=== PATIENT | female | born 1965 | race African-American/Black ===

== ENCOUNTER → 2016-05-19 | Outpatient (CLI) | payer MEDICARE, OTHER ==
[~2016-05-19] MED LIST: ABIL30TA2 PO; ALBU0.63 NEB; BENZ2TAB PO; CHOL1CAP34 PO; CITRTAB7 PO; CYMB30CA PO; DILT60TA33 PO; FLUP10TA PO; HYDR-3533 PO; HYDR-3535 PO; MEVA40TA PO; MOBI15TA PO; OMEP20TA PO; PREV15CA15 PO; PROM25TA5 PO; TRAM50TA PO; VITA1000 PO; ZANA2CAP PO
[2016-05-19 12:55] LABS: HEMATOCRIT 31.2 % (35.0-46.0); MEAN CELL VOLUME 84.9 FL (80.0-100.0); MEAN CORPUSCULAR HEMOGLOBIN 29.4 PG (27.0-34.0); MEAN CORPUSCULAR HGB CONC 34.6 % (32.0-36.0); PLATELET COUNT 322 TH/MM3 (150-450); RED BLOOD COUNT 3.67 MIL/MM3 (4.00-5.30); RED CELL DISTRIBUTION WIDTH 15.2 % (11.6-17.2); REVIEW FLAG FINAL; WHITE BLOOD COUNT 8.3 TH/MM3 (4.0-11.0)
[2016-05-19 13:11] LABS: ALT (GPT) 44 U/L (10-53); ANION GAP 7 MEQ/L (5-15); AST (GOT) 21 U/L (15-37); BICARBONATE 27.9 MEQ/L (21.0-32.0); BLOOD UREA NITROGEN 17 MG/DL (7-18); CHLORIDE 105 MEQ/L (98-107); GLOMERULAR FILTRATION RATE 58 ML/MIN (>89); GLUCOSE,FASTING 87 MG/DL (74-99); POTASSIUM 4.2 MEQ/L (3.5-5.1); SODIUM (NA) 140 MEQ/L (136-145)
[2016-05-19 13:15] LABS: ALKALINE PHOSPHATASE 167 U/L (45-117); TOTAL BILIRUBIN ADULT 0.6 MG/DL (0.2-1.0)
[2016-05-19 13:19] LABS: WESTERGREN SEDIMENTATION RATE 63 mm/hr (0-30)
== END ==
LOC: ELAB 10:05
PROVIDERS: ATTEND Internal Medicine Rheumatology
DX: M06.89 Other specified rheumatoid arthritis, multiple sites (principal); Z79.899 Other long term (current) drug therapy
CPT/HCPCS: 36415; 80053; 85027; 85652; 86140

== ENCOUNTER → 2016-07-13 | Outpatient (CLI) | payer MEDICARE, OTHER ==
[~2016-07-13] MED LIST changes: -MOBI15TA PO; -TRAM50TA PO
== END ==
LOC: ELAB 10:04
PROVIDERS: ATTEND Family Medicine
DX: E55.9 Vitamin D deficiency, unspecified (principal); E03.9 Hypothyroidism, unspecified
CPT/HCPCS: 36415; 82306; 84443

== ENCOUNTER → 2016-08-31 | Outpatient (CLI) | payer MEDICARE, OTHER ==
[~2016-08-31] MED LIST changes: -VITA1000 PO
[2016-08-31 11:59] LABS: HEMATOCRIT 35.2 % (35.0-46.0); MEAN CELL VOLUME 83.3 FL (80.0-100.0); MEAN CORPUSCULAR HEMOGLOBIN 28.6 PG (27.0-34.0); MEAN CORPUSCULAR HGB CONC 34.3 % (32.0-36.0); PLATELET COUNT 290 TH/MM3 (150-450); RED BLOOD COUNT 4.23 MIL/MM3 (4.00-5.30); RED CELL DISTRIBUTION WIDTH 15.7 % (11.6-17.2); REVIEW FLAG FINAL; WHITE BLOOD COUNT 5.9 TH/MM3 (4.0-11.0)
[2016-08-31 12:25] LABS: ANION GAP 10 MEQ/L (5-15); BICARBONATE 27.6 MEQ/L (21.0-32.0); BLOOD UREA NITROGEN 15 MG/DL (7-18); CHLORIDE 102 MEQ/L (98-107); GLUCOSE,FASTING 88 MG/DL (74-99); POTASSIUM 4.2 MEQ/L (3.5-5.1); SODIUM (NA) 140 MEQ/L (136-145)
[2016-08-31 12:28] LABS: ALT (GPT) 32 U/L (10-53)
[2016-08-31 12:30] LABS: ALKALINE PHOSPHATASE 148 U/L (45-117); TOTAL BILIRUBIN ADULT 0.6 MG/DL (0.2-1.0)
[2016-08-31 12:39] LABS: AST (GOT) 18 U/L (15-37); GLOMERULAR FILTRATION RATE 56 ML/MIN (>89)
[2016-08-31 12:46] LABS: WESTERGREN SEDIMENTATION RATE 40 mm/hr (0-30)
== END ==
LOC: ELAB 11:01
PROVIDERS: ATTEND Internal Medicine Rheumatology
DX: M06.89 Other specified rheumatoid arthritis, multiple sites (principal); Z79.899 Other long term (current) drug therapy
CPT/HCPCS: 36415; 80053; 85027; 85652; 86140

== ENCOUNTER → 2016-10-23 | Outpatient (CLI) | payer MEDICARE, OTHER ==
[~2016-10-23] MED LIST changes: -ALBU0.63 NEB; -HYDR-3533 PO; -PREV15CA15 PO
== END ==
LOC: ELAB 09:13
PROVIDERS: ATTEND Family Medicine
DX: E55.9 Vitamin D deficiency, unspecified (principal)
CPT/HCPCS: 36415; 82306

== ENCOUNTER → 2016-12-06 | Outpatient (CLI) | payer MEDICARE, OTHER ==
[~2016-12-06] MED LIST changes: +ALBUAER3 INH; +BENZ0.5T PO; +BUSP30TA PO; +DICL1CAP4 PO; +FLUP5TAB PO; +FOLI400T PO; +HYDR-3366 PO; +LOVA40TA PO; +METH2.5T PO; -MEVA40TA PO; +SULF500T34 PO; +TRAZ100T6 PO
[2016-12-06 08:57] LABS: HEMATOCRIT 33.2 % (35.0-46.0); MEAN CELL VOLUME 85.8 FL (80.0-100.0); MEAN CORPUSCULAR HEMOGLOBIN 28.9 PG (27.0-34.0); MEAN CORPUSCULAR HGB CONC 33.7 % (32.0-36.0); PLATELET COUNT 286 TH/MM3 (150-450); RED BLOOD COUNT 3.87 MIL/MM3 (4.00-5.30); RED CELL DISTRIBUTION WIDTH 16.8 % (11.6-17.2); REVIEW FLAG FINAL; WHITE BLOOD COUNT 6.8 TH/MM3 (4.0-11.0)
[2016-12-06 09:22] LABS: ALT (GPT) 48 U/L (10-53); ANION GAP 6 MEQ/L (5-15); AST (GOT) 24 U/L (15-37); BICARBONATE 28.5 MEQ/L (21.0-32.0); BLOOD UREA NITROGEN 18 MG/DL (7-18); CHLORIDE 102 MEQ/L (98-107); GLOMERULAR FILTRATION RATE 57 ML/MIN (>89); GLUCOSE,FASTING 85 MG/DL (74-99); POTASSIUM 4.1 MEQ/L (3.5-5.1); SODIUM (NA) 136 MEQ/L (136-145)
[2016-12-06 09:25] LABS: ALKALINE PHOSPHATASE 177 U/L (45-117); TOTAL BILIRUBIN ADULT 0.6 MG/DL (0.2-1.0)
[2016-12-06 09:30] LABS: WESTERGREN SEDIMENTATION RATE 47 mm/hr (0-30)
== END ==
LOC: ELAB 07:36
PROVIDERS: ATTEND Internal Medicine Rheumatology
DX: M06.89 Other specified rheumatoid arthritis, multiple sites (principal); Z79.899 Other long term (current) drug therapy
CPT/HCPCS: 36415; 80053; 85027; 85652; 86140

== ENCOUNTER → 2016-12-07 | Outpatient (CLI) | payer MEDICARE, OTHER ==
[2016-12-07 10:17] LABS: AUTOMATED NEUTROPHIL # 3.4 TH/MM3 (1.8-7.7); BASOPHIL # 0.1 TH/MM3 (0-0.2); BASOPHIL % 1.5 % (0.0-2.0); EOSINOPHIL % 0.6 % (0.0-4.0); HEMATOCRIT 32.1 % (35.0-46.0); HEMO FLAGS DIFF FINAL; LYMPH % 39.2 % (9.0-44.0); LYMPHOCYTE # 2.6 TH/MM3 (1.0-4.8); MEAN CELL VOLUME 85.7 FL (80.0-100.0); MEAN CORPUSCULAR HEMOGLOBIN 29.8 PG (27.0-34.0); MEAN CORPUSCULAR HGB CONC 34.7 % (32.0-36.0); NEUT % 52.7 % (16.0-70.0); PLATELET COUNT 261 TH/MM3 (150-450); RED BLOOD COUNT 3.75 MIL/MM3 (4.00-5.30); RED CELL DISTRIBUTION WIDTH 16.2 % (11.6-17.2); WHITE BLOOD COUNT 6.5 TH/MM3 (4.0-11.0)
[2016-12-07 10:41] LABS: BICARBONATE 27.8 MEQ/L (21.0-32.0); POTASSIUM 4.2 MEQ/L (3.5-5.1)
== END ==
LOC: CPRE 09:14
PROVIDERS: ATTEND Orthopaedic Surgery Orthopaedic Surgery of the Spine
DX: Z01.812 Encounter for preprocedural laboratory examination (principal)
CPT/HCPCS: 36415; 80048; 85025

== ENCOUNTER → 2016-12-07 | Outpatient (CLI) | payer MEDICARE, OTHER ==
--- NOTE | 2016-12-07 15:24 | EKG ---
Date Performed: 12/07/2016 Time Performed: 08:53:28 PTAGE: 51 years EKG: Sinus rhythm . Normal ECG PREVIOUS TRACING : 10/24/2013 08.20 Compared to prior tracing no significant change DOCTOR: Guido Bolanos Interpretating Date/Time 12/07/2016 15:22:44
== END ==
LOC: HCAV 08:20
PROVIDERS: ATTEND Family Medicine
DX: Z01.810 Encounter for preprocedural cardiovascular examination (principal)
CPT/HCPCS: 93005

== ENCOUNTER 2016-12-21 06:52 | Observation (INO) | payer MEDICARE, OTHER ==
[~2016-12-21] VITALS: Ht 152.4 cm; Wt 98.9 kg
[~2016-12-21 06:52] MED LIST changes: -ALBUAER3 INH; -BENZ2TAB PO; -CHOL1CAP34 PO; -FLUP10TA PO; -HYDR-3366 PO; -HYDR-3535 PO; -PROM25TA5 PO
[2016-12-21] MEDS ORDERED: INSULIN HUMAN REGULAR 1,000 UNITS/10 ML VIAL SQ PRN (07:30)
[2016-12-21] MEDS ORDERED: CHLORHEXIDINE GLUCONATE 4% SOLN 120 ML BTL TOPICAL SCH (07:30)
[2016-12-21] MEDS ORDERED: METOPROLOL TARTRATE 25 MG TAB PO PRN (07:30)
[2016-12-21] MEDS ORDERED: VANCOMYCIN 1000 MG/NS 250 ML (for <70 kg) IV SCH ×2 (07:30)
[2016-12-21] MEDS ORDERED: POVIDONE IODINE 5% (ANTISEPSIS KIT) 4 APPLICATIONS EACH NARE PRN (07:30)
[2016-12-21] MEDS ORDERED: CHLORHEXIDINE GLUCONATE 2 % 1 PACK (2 CLOTHS) TOPICAL PRN (07:30)
[2016-12-21] MEDS ORDERED: LACTATED RINGER'S 1000 ML IV PRN (07:30)
[2016-12-21] MEDS ORDERED: SODIUM CHLORID 0.9% 500 ML IV PRN (07:30)
[2016-12-21] MEDS ORDERED: BUPIVACAINE/EPINEPHRINE 0.25% 50 ML VIAL ONE (08:38)
[2016-12-21] MEDS ORDERED: GENTAMICIN SULFATE 80 MG/2 ML VIAL ONE (08:38)
[2016-12-21] MEDS ORDERED: HYDROmorphone HCL PF 2 MG/ML VIAL ONE (09:34)
[2016-12-21] MEDS ORDERED: FAMOTIDINE 20 MG/2 ML VIAL ONE (09:44)
[2016-12-21] MEDS ORDERED: PROPOFOL 200 MG/20 ML AMP ONE (11:16)
[2016-12-21] MEDS: ceFAZolin 2 GM PREMIX 50 ML IV SCH ×2 (11:20→11:24)
--- NOTE | 2016-12-21 12:15 | PD.OP ---
cc: Ad Mcfarland MD; Stas Mcfarland MD Operative Report Date of Surgery: Dec 21, 2016 Preoperative Diagnosis: Herniated nucleus pulposus C5 6 central, left. Herniated nucleus pulposus C6 7, left, foraminal. Left greater than right cervical radiculopathy Postoperative Diagnosis: Same Procedure: Anterior cervical discectomy decompression and bilateral foraminotomies, C5 6. Anterocervical discectomy decompression and bilateral foraminotomies, C6 7. Left anterior iliac crest bone graft Anesthesia: Gen. Surgeon: Stas Mcfarland Breakfast And Room Attendant(s): SHI Brady Operation and Findings: EBL: 50 cc INDICATIONS: This patient is a 51-year-old female with significant neck and arm pain. Investigative studies shows evidence of a disc herniation centrally at the left at C5 6 with evidence of C6 nerve root compromise. At C6 7 there is a disc herniation extending into the foramen creating left cervical radicular symptoms at both levels. The patient presents for surgical treatment. NOTE: Shahla Brady PA-C was present for the entire surgical procedure as my first aid director. In my medical opinion her skill and care was necessary for proper management of this patient PROCEDURE: The patient was brought to the operating room and anesthetized in the supine position. This patient was positioned supine on the radiolucent table. All pressure points were protected in the anterior cervical spine and iliac crest was scrubbed with alcohol followed by Hibiclens followed by ChloraPrep. A timeout was done and antibiotics were given within 1 hour time window. Lateral radiographic images were used identifying the proper level. A right anterior incision was made in line with skin creases. The platysma was opened in line with the incision. Deep dissection continued in the interval between the carotid sheath and the esophagus. The longus-coli muscles were lifted on both sides and retractors were positioned allowing good exposure. Lateral radiographic images were used to identify the proper level. [place] style interosseous pins were placed at C5 and C6 allowing exposure to that level. The microscope was rolled into the field. A total discectomy was accomplished and posterior osteophytes were removed. The posterior longitudinal ligament and annulus was taken down. Bilateral foraminotomies were accomplished. The endplates were squared up anticipating later bone grafting. A blunt probe could be placed out each foramen without evidence of nerve root compromise. The C5 pin was placed down to C7. An anterior exposure was accomplished. We performed a total discectomy with excision of the posterior annulus and posterior longitudinal ligament. Bilateral foraminotomies were accomplished. Osteophytes were removed. The endplates were squared up anticipating later bone grafting. A blunt probe could be placed out each foramen without evidence of nerve root compromise. The left iliac crest was approached. A small stab incision was made allowing percutaneous access to the anterior iliac crest. Multiple cores of cancellous bone were harvested and taken to the back table to be used for later bone grafting. The wound was irrigated anesthetized and closed with 4-0 Vicryl followed by Dermabond. The case was turned over to Dr. Ad Mcfarland for fusion and instrumentation per his dictation. FINDINGS: There was evidence of a large disc herniation at the C5 6 level migrating centrally into the left towards left neuroforamen. This is behind the posterior longitudinal ligament. At C6 7 there was a disc herniation extending into the foramen creating significant compression within the foramen. There was no complication seen at either level. The overall final result was felt be very satisfactory. The case then turned over to Dr. Ad mcfarland. NOTE: This surgery was performed in 2 parts. The first part was the neurosurgical decompression performed under the variable power stereo microscope by the undersigned in addition to the bone graft. The second portion of the surgery will be performed by the orthopedic spine component by co -surgeon, Dr. Ad Mcfarland for the anterior fusion with interbody cage and anterior plate. The skill of 2 surgeons was necessary to perform distinct separate procedural services as dictated above and dictated in the following operative note by Dr. Ad Mcfarland. Stas Mcfarland MD Dec 21, 2016 12:15
[2016-12-21] MEDS ORDERED: LABETALOL HCL 100 MG/20 ML VIAL IV ONE (13:16)
[2016-12-21] MEDS ORDERED: ESMOLOL HCL 100 MG/10 ML VIAL IV ONE (13:16)
[2016-12-21] MEDS ORDERED: ceFAZolin INJ 1,000 MG VIAL IV ONE (13:16)
[2016-12-21] MEDS ORDERED: MIDAZOLAM HCL 2 MG/2 ML VIAL IV ONE (13:16)
[2016-12-21] MEDS ORDERED: ROCURONIUM INJ 50 MG/5 ML SYRINGE IV PUSH ONE (13:16)
[2016-12-21] MEDS ORDERED: GLYCOPYRROLATE 1 MG/5 ML SYRINGE IV PUSH ONE (13:16)
[2016-12-21] MEDS ORDERED: DEXAMETHASONE SOD PHOS 4 MG/ML VIAL IV ONE (13:16)
[2016-12-21] MEDS ORDERED: LIDOCAINE HCL 1% PF 5 ML AMPULE OTHER ONE (13:16)
[2016-12-21] MEDS ORDERED: ONDANSETRON HCL 4 MG/2 ML VIAL IV PUSH ONE (13:16)
[2016-12-21] MEDS ORDERED: PROPOFOL 200 MG/20 ML AMP IV ONE (13:16)
[2016-12-21] MEDS ORDERED: ONDANSETRON HCL 4 MG/2 ML VIAL IV PRN (13:45)
[2016-12-21] MEDS ORDERED: MORPHINE SULFATE 4 MG/ML INJ IV PUSH PRN (13:45)
[2016-12-21] MEDS ORDERED: Post-op Orders (for Pharmacy) MISC XX ONE (13:45)
[2016-12-21] MEDS ORDERED: ALUMINUM/MAGNESIUM/SIMETH 30 ML CUP PO PRN (13:45)
[2016-12-21] MEDS ORDERED: ACETAMINOPHEN/HYDROcodone 325 MG/7.5 MG TAB PO PRN (13:45)
[2016-12-21] MEDS ORDERED: PROMETHAZINE INJ 25 MG/ML VIAL IM PRN (13:45)
[2016-12-21] MEDS: SODIUM CHLORIDE 0.9% FLUSH 10 ML FLUSH IV FLUSH SCH ×2 (14:00→21:00)
--- NOTE | 2016-12-21 14:12 | MP ---
cc: KATH GAMBOA M.D., MARIA V. MD DATE OF SURGERY: 12/21/2016 PREOPERATIVE DIAGNOSIS: 1. C5-C6 central left hiatal herniated nucleus pulposus, osteophyte disc complex. 2. C6-C7 central left sided herniated nucleus pulposus, osteophyte disc complex. 3. Cervical spine degenerative disc disease osteoarthritis. 4. Cervical radiculitis with upper extremity weakness. POSTOPERATIVE DIAGNOSIS: 1. C5-C6 central left hiatal herniated nucleus pulposus, osteophyte disc complex. 2. C6-C7 central left sided herniated nucleus pulposus, osteophyte disc complex. 3. Cervical spine degenerative disc disease osteoarthritis. 4. Cervical radiculitis with upper extremity weakness. PROCEDURE: C5-C6, C6-C7, anterior body effusion. C5-C6, C6-C7 spinet ACC anterior cervical cage, C5 to C7 spinet Rasch anterior spinal instrumentation. SURGEON: Dasha Gamboa MD. HOUSE FATHER: MD doctor's assistant is JASSON Naqvi. ANESTHESIA: General. ESTIMATED BLOOD LOSS: 200 cc for entire case. SURGEON: Dasha Gamboa MD. HOUSE FATHER: JASSON Naqvi COMPLICATIONS: None. ANESTHESIA: General. DRAIN: None. CONDITION: Stable. PLAN OF ACTIVITY: Per orders. PROCEDURE: Dr. Stas Gamboa and myself were co-surgeons. Dr. Stas Gamboa preformed the C5-C6, C6-C7 anterior cervical discectomy, anterior decompression using operative microscopic with foraminotomies. Also preformed left anterior iliac crest bone grafting. He preformed the surgery of the C5-C6 and C6-C7. I preformed the patient stabilization and fusion portion of the procedure which is described in my operative note. My doctor's assistant JASSON Naqvi was present for the entire surgical case, she was medically necessary for the entirety of the case because of the complexity of the case and to facilitate the performance of the procedure. The FUEL CELL DESIGNER at the back table did not have the skill set for this case, was used to assist with instruments, <<3:08>> , soft tip retractors, trial implants and also permanent implants. The patient was brought into the operating room and had satisfactory general endotracheal anesthesia by the department of anesthesia. Dr. Stas Gamboa preformed a right transverse anterior cervical spine exposure, he preformed the C5-C6, C6-C7 anterior cervical discectomy, anterior decompression, foraminotomies of the C5-C6 and C6-C7 using operative microscope. Also preformed left anterior iliac bone grafting. The cervical site was prepared for fusion. At the C5-C6 anterior body inner space was decorticated using angled curets and burs. A 710 x 12 ACC cage placed in space in satisfactory manner. The end plates at C5-C6 were prepared for fusion. The <<4:10>> endplate using angled curets and burs. A 610 x 12 ACC cage placed inner space in satisfactory manner. Moderately large anterior osteophytes were removed using angled curets and rongeurs and bur. A 46 mm length spinet Rauscher anterior spinal instrumentation was contoured, appropriate dimensions as well as the AP and lateral plane was fixated with pins and appropriate position. Two screws were used in the vertebral bodies, C5, C6 and C7, these screws were 12 mm in length, 4 mm outer diameter with fixed angled screws. Each screw was drilled, the screws were inserted and each screw head was appropriately locked into place. Transfixion pins were removed. The wound was irrigated with copious amounts, and the wound itself was dried. The would was closed in layers using a 3-0 Vicryl and skin was approximated with running subcuticular 4-0 Vicryl, Dermabond was placed in skin incisions. The sterile dressing was applied. The patient was placed in [place] cervical orthosis. The patient tolerated the procedure well and taken to the Recovery Room in stable and satisfactory condition. MD ULYSSES Saenz/rhina /1:23 PM /1:29 PM
[2016-12-21] MEDS ORDERED: SODIUM CHLORIDE 0.9% FLUSH 10 ML FLUSH IV FLUSH PRN (14:15)
[2016-12-21] MEDS ORDERED: PILL SPLITTER OTHER PRN (14:15)
[2016-12-21] MEDS: LACTATED RINGER'S 1000 ML INJ 1,000 ML IV SCH (14:30)
[2016-12-21] MEDS ORDERED: DO NOT ADM ANY ANTICOAGULANT DRUGS PRN (14:45)
[2016-12-21] MEDS ORDERED: *morphine SULFATE 8 MG/ML PERIprocedure ONLY ONE (15:24)
--- NOTE | 2016-12-21 15:56 | RADRPT ---
EXAM DATE/TIME: 12/21/2016 10:24 [facility] COMPARISON: No previous studies available for comparison. INDICATIONS : Fusion C5,C6 and C6,C7 with screws and plate placement. MEDICAL HISTORY : None. SURGICAL HISTORY : None. ENCOUNTER: Initial ACUITY: 1 day PAIN SCORE: Non-responsive. LOCATION: Cervical spine. FINDINGS: 2 projection examination of the cervical spine reveals ventral hardware fusion from C5-C7. The hardwa re appears intact. Alignment is anatomic. Disc spaces are well-positioned. CONCLUSION: Satisfactory operative appearance Thor Ellis MD on December 21, 2016 at 15:54 Board Certified Radiologist. This report was verified electronically.
[2016-12-21 17:10] VITALS: BP 156/91; PULSE 88; RESP 18; TEMP 96.2; O2SAT 96
[2016-12-21 17:58] VITALS: O2SAT 96
[2016-12-21] MEDS: DILTIAZEM HCL 60 MG TAB PO SCH ×2 (18:25→23:57)
[2016-12-21] MEDS: busPIRone HCL 10 MG TAB PO SCH (18:25)
--- NOTE | 2016-12-21 18:51 | PD.CONS ---
History of Present Illness Service Family Medicine Consultation Consult Requested By Dr. Frausto Reason for Consult Medical Management Primary Care Physician Chaz Vivar MD Diagnoses: History of Present Illness Patient is a 51-year-old female with past medical history significant for OA, RA , schizophrenia, hypertension, and possibly A. fib who presents for scheduled cervical spine procedures with Dr. Rodrigo Frausto. She states that she has had 8-9 months of left-sided numbness in the neck and arm. She also notes cervical pain. She was worked up for stroke and this was negative. MRI reportedly revealed severe disc herniation and osteoarthritis. Patient is a poor historian , possibly related to anesthesia effect, and her who is at her bedside provides some of the history. The patient states she currently has pain in the neck, 02/25, and the left knee which has long been swollen with severe [id number] osteoarthritis. She denies chest pain, shortness of breath, throat pain, nausea, vomiting. She plans to eat tonight and get up with assistance. Review of Systems Constitutional: DENIES: Fever, Chills Eyes: DENIES: Blurred vision, Diplopia, Double Vision Ears, nose, mouth, throat: DENIES: Hearing loss, Vertigo, Throat pain, Ear Pain , Running Nose Respiratory: DENIES: Apneas, Cough, Snoring, Sputum production, Shortness of breath Cardiovascular: DENIES: Chest pain, Palpitations, Syncope Gastrointestinal: DENIES: Abdominal pain, Black stools, Bloody stools, Constipation, Nausea, Vomiting Genitourinary: DENIES: Dysmenorrhea, Urinary frequency, Dysuria Musculoskeletal: COMPLAINS OF: Joint Swelling (left knee), Neck pain, DENIES: Back pain Integumentary: DENIES: Pruritus, Rash Hematologic/lymphatic: DENIES: Bruising, Lymphadenopathy Immunologic/allergic: DENIES: Eczema, Urticaria Neurologic: COMPLAINS OF: Paresthesias (left arm, chronic), DENIES: Abnormal gait, Headache, Localized weakness, Poor Balance Psychiatric: DENIES: Anxiety, Depression, Suicidal Ideation, Homicidal Ideation Past Family Social History Allergies: Coded Allergies: No Known Allergies (Verified , 12/21/16) Past Medical History Hypertension Reported hyperthyroidism; however TSH is WNL without any treatment. Dyslipidemia Bipolar d/o, per chart review, managed by Psychiatrist schizophrenia,per chart review, managed by Psychiatrist schizoaffective disorder, per patient, managed by Psychiatrist Rheumatoid arthritis - Managed by Rheumatology Cervical Stenosis - Managed by Orthopedics TARIK - uses CPAP- doesn't know settings. Monomorphic Ventricular Tachycardia Morbid obesity ECHO 10/02/12- EF 60%, study limited because of body habitus. PFT's 03/03/10 (With Dr. Robertson): Moderately severe obstructive airway disease. Positive and significant response to acutely inhaled bronchodilator. No evidence of airways restriction. Normal diffusion when corrected for alveolar volume. Specialists: ACT- Dr. Santamaria- every 3 months. Pulm: Dr. Kathleen Cardiology: Dr. Valera Rheumatology - Unknown physician Orthopedics - Dr. Ad Lutz Past Surgical History hysterectomy 1995 (/ placenta increta), BTL x 2 multiple knee injections, carpal tunnel injections umbilical hernia repair Right carpel tunnel release surgery -10/30 Gastric bypass Reported Medications Reported Meds & Active Scripts Active Lovastatin 40 Mg Tab 40 Mg PO DAILY Cardizem (Diltiazem HCl) 60 Mg Tab 60 Mg PO QID Omeprazole 20 Mg Tab 20 Mg PO DAILY Zanaflex (Tizanidine HCl) 2 Mg Cap 2 Mg PO TID Reported Folic Acid 0.4 Mg Tab 400 Mcg PO DAILY Zorvolex (Diclofenac) 35 Mg Cap 35 Mg PO TID Methotrexate 2.5 Mg Tab 20 Mg PO Q7D Buspirone (Buspirone HCl) 30 Mg Tab 30 Mg PO TID Sulfasalazine DR (Sulfasalazine) 500 Mg Tab 500 Mg PO BID Trazodone (Trazodone HCl) 100 Mg Tablet 100 Mg PO HS Fluphenazine (Fluphenazine HCl) 5 Mg Tab 5 Mg PO DAILY Benztropine (Benztropine Mesylate) 0.5 Mg Tab 2 Mg PO BID Cymbalta DR (Duloxetine HCl) 30 Mg Capdr 120 Mg PO DAILY Abilify (Aripiprazole) 30 Mg Tab 30 Mg PO HS Citracal + D3 Maximum (Calcium Citrate-Vitamin D) 315-250 Mg-Unit Tab 1 Tab PO BID Active Ordered Medications Inpatient Medications Acetaminophen/ Hydrocodone Bitart ([place] 7.5-325 Mg) 2 tab Q6H PRN PO PAIN SCALE 6 TO 10; Start 12/21/16 at 13:45 Al Hydrox/Mg Hydrox/Simethicone (Mag-Al Plus Susp Liq) 30 ml Q6H PRN PO INDIGESTION; Start 12/21/16 at 13:45 Aripiprazole (Abilify) 30 mg HS PO ; Start 12/21/16 at 21:00 Benztropine Mesylate (Cogentin) 2 mg BID PO ; Start 12/21/16 at 21:00 Buspirone HCl (Buspar) 30 mg TID PO ; Start 12/21/16 at 18:00 Cefazolin Sodium 1000 mg/Sodium Chloride 100 ml @ 200 mls/hr Q8H IV ; Start at 18:00; Stop 12/22/16 at 10:29 Cefazolin Sodium/ Dextrose 50 ml @ 100 mls/hr ONCE IV Last administered on 11:24; Start 12/21/16 at 07:30; Stop 12/21/16 at 21:00 Chlorhexidine Gluconate (Chlorhexidine 2% Cloth) 3 pack REAL ESTATE CLOSING COORDINATOR PRN TOPICAL SEE LABEL COMMENTS Last administered on 12/21/16 07:15; Start 12/21/16 at 07:30 ; Stop 12/24/16 at 07:29 Chlorhexidine Gluconate (Hibiclens 4% Top Soln) 1 applic ONCE TOPICAL ; Start 12/21/16 at 07:30; Stop 12/24/16 at 07:29 Diltiazem HCl (Cardizem) 60 mg QID PO ; Start 12/21/16 at 18:00 Duloxetine HCl (Cymbalta Dr) 120 mg DAILY PO ; Start 12/22/16 at 09:00 Fluphenazine HCl (Prolixin) 5 mg DAILY PO ; Start 12/22/16 at 09:00; Status UNV Insulin Human Regular (NovoLIN R INJ) See Protocol Table ... REAL ESTATE CLOSING COORDINATOR PRN SQ SEE PROTOCOL TABLE; Start 12/21/16 at 07:30; Stop 12/24/16 at 07:29 Lactated Ringer's 1,000 ml @ 80 mls/hr [id number] IV Last administered on 14:30; Start 12/21/16 at 14:00 Methotrexate (Rheumatrex) 20 mg Q7D PO ; Start 12/22/16 at 09:00 Metoprolol Tartrate (Lopressor) 25 mg REAL ESTATE CLOSING COORDINATOR PRN PO SEE LABEL COMMENTS; Start 12/21/16 at 07:30; Stop 12/24/16 at 07:29 Miscellaneous (Pill Splitter) 1 ea UNSCH PRN OTHER SEE LABEL COMMENTS; Start 12/21/16 at 14:15 Miscellaneous Information ALL NURSING DEPARTME... UNSCH PRN .XX SEE LABEL COMMENTS; Start 12/21/16 at 14:45; Stop 12/22/16 at 14:44 Miscellaneous Information (Post-op Orders (for Pharmacy)) STAT ONCE XX ; Start 12/21/16 at 13:45; Stop 12/21/16 at 14:04; Status DC Morphine Sulfate (Morphine Inj) 4 mg Q3H PRN IV PUSH PAIN GREATER THAN 7; Start 12/21/16 at 13:45 Multivitamins/ Minerals Therapeutic (Theragran M Tab) 1 tab BID PO ; Start 12/22 at 09:00; Stop 02/20/17 at 08:59 Ondansetron HCl (Zofran Inj) 4 mg Q6H PRN IV NAUSEA OR VOMITING; Start at 13:45 Pantoprazole Sodium (Protonix) 20 mg DAILY PO ; Start 12/22/16 at 09:00 Povidone Iodine (Betadine 5% Antisepsis Kit) 1 applic REAL ESTATE CLOSING COORDINATOR PRN EACH NARE SEE LABEL COMMENTS; Start 12/21/16 at 07:30; Stop 12/24/16 at 07:29 Pravastatin Sodium (Pravachol) 40 mg DAILY PO ; Start 12/22/16 at 09:00 Sodium Chloride (NS Flush) 2 ml BID IV FLUSH ; Start 12/21/16 at 14:00 Sulfasalazine (Azulfidine Ec) 500 mg BID PO ; Start 12/21/16 at 21:00 Tizanidine HCl (Zanaflex) 2 mg TID PO ; Start 12/21/16 at 18:00 Trazodone HCl (Desyrel) 100 mg HS PO ; Start 12/21/16 at 21:00 Vancomycin HCl 1000 mg/Sodium Chloride 250 ml @ 250 mls/hr REAL ESTATE CLOSING COORDINATOR IV Last administered on 12/21/16t 11:25; Start 12/21/16 at 07:30; Stop 12/24/16 at 07:29 Family History Mom at 54 from COPD, dad at 55 from stroke and DM sister at 44 from bone cancer. Social History She denies smoking, etoh, drugs. She lives with a supportive , Emile and daughter. 33 years Daughter 17 years old, son ~31 years old Disabled from schizophrenia Physical Exam Vital Signs Vital Signs Date Time Temp Pulse Resp B/P (MAP) Pulse Ox O2 Delivery O2 Flow Rate FiO2 12/21/16 17:58 96 Nasal Cannula 2.00 12/21/16 17:10 96.2 88 18 156/91 (112) 96 12/21/16 16:30 86 12 137/69 (91) 99 Nasal Cannula 2 12/21/16 15:30 89 12 153/79 (103) 100 Nasal Cannula 2 12/21/16 15:05 98.5 84 12 100 Nasal Cannula 2 12/21/16 15:00 84 12 150/78 (102) 100 Nasal Cannula 2 12/21/16 14:45 83 12 153/80 (104) 100 Nasal Cannula 2 12/21/16 14:30 83 12 155/82 (106) 100 Nasal Cannula 2 12/21/16 14:15 83 12 149/77 (101) 100 Nasal Cannula 2 12/21/16 14:00 82 14 144/78 (100) 100 Nasal Cannula 2 12/21/16 13:53 97.7 79 20 142/74 (96) 97 Nasal Cannula 2 12/21/16 08:05 98.7 85 18 149/86 (107) 99 Physical Exam VS: Reviewed. Within normal limits aside from mild hypertension. GENERAL: Well-nourished, well-developed female. She appears to be in no apparent distress. Cervical collar in place.She is moving her neck some but notes pain with movement. SKIN: Warm and dry. Well-healed scar on abdomen and bilateral wrists from previous procedures. Surgical dressing on front of neck noted through surgery collar. HEENT: Atraumatic, normocephalic with EOMI. PERRLA. Oropharynx clear without erythema or exudate. No rhinorrhea. No visible JVD or LAD appreciated. CARDIOVASCULAR: Regular rate and rhythm without murmurs, gallops, or rubs. RESPIRATORY: Clear to auscultation bilaterally with no wheezing, rales, or rhonchi. No accessory muscle use. GASTROINTESTINAL: Abdomen soft, non-tender, obese. She has reduced bowel sounds. Well-healed bariatric surgery scars. No masses appreciated. MUSCULOSKELETAL: No cyanosis appreciated. Mild effusion of both knees, with significant effusion on the left knee. It is also warm and painful to touch along the lateral joint. Neuro: Afocal. AAO 3. She has mild difficulty with reviewing medical history. Cranial nerves II through XII intact. Normal speech and judgment. Imaging Last Impressions Cervical Spine X-Ray 12/21/16 0000 Signed Impressions: Service Date/Time: December 10:24 - CONCLUSION: Satisfactory operative appearance Thor Ellis MD Assessment and Plan Problem List: (1) Herniated nucleus pulposus, C5-6 ICD Codes: M50.222 - Other cervical disc displacement at C5-C6 level Status: Chronic Plan: Patient is POD #0 status post anterior body procedure, anterior cervical cage, spinal tissue mentation of C5-C6, C6-C7. Patient did receive preoperative evaluation on 12/11/[address] Chaz Vivar, his PCP. Workup at that time revealed no acute concerns preoperatively. EKG showed normal sinus rhythm, rate 89. CXR preoperatively on 12/06/16 showed no acute disease. Medical team was consulted for medical management of chronic medical conditions. * Medications from home have been reconciled by primary surgical team, noted above. Per primary team, diclofenac and calcium/vitamin D supplementation, and folic acid were held; the following medications were continued as inpatient: * Sulfasalazine * Methotrexate * Tizanidine * Cardizem 60 QID * Cymbalta 120 mg daily * Trazodone 100 mg every night * Abilify 30 mg at night * Fluphenazine 5 mg daily * Buspirone 30 mg TID * Benztropine 2 mg twice daily * Omeprazole 20 mg daily * Recommend monitoring vital signs every 4 hours, ordered * Recommend neuro checks every 4 hours, ordered * We'll obtain CBC, CMP, coag profile for baseline, recheck tomorrow * Pain control ordered by primary team ([place], morphine when necessary). Patient likely will tolerate escalation of pain medications if needed * Activity level: Ordered out of bed with assistance, physical therapy consult placed * We'll order incentive spirometry to reduce risk of atelectasis postoperatively * For hypertension, we'll add clonidine PRN BP > 180/100. May consider Vasotec PRN if kidneys are normal in function (labs pending) (2) Herniated nucleus pulposus, C6-7 ICD Codes: M50.223 - Other cervical disc displacement at C6-C7 level Status: Chronic (3) Hyperthyroidism ICD Codes: E05.90 - Thyrotoxicosis, unspecified without thyrotoxic crisis or storm Status: Chronic Plan: Will check TSH (4) Hypercholesterolemia ICD Codes: E78.0 - Hypercholesterolemia Status: Acute (5) CKD (chronic kidney disease) ICD Codes: N18.9 - CKD (chronic kidney disease) Status: Chronic Plan: Chronic kidney disease noted, stage 1 (6) Schizophrenia ICD Codes: F20.9 - Schizophrenia Status: Chronic Plan: Chronic psychiatric disease. Continue psychotropic medications Code Status: Shock, Compressions, Intubation, ACLS Drugs Discussed Condition With Dr. Greene Will discuss with Dr. Lewis and Dr. Jackson Discharge Planning Once cleared by Jackie Johnson MD R2 Dec 21, 2016 18:51
[2016-12-21 19:00] VITALS: BP 128/71; PULSE 96; RESP 17; TEMP 97.4; O2SAT 95
[2016-12-21] MEDS ORDERED: cloNIDine HCL 0.1 MG TAB PO PRN (19:00)
[2016-12-21] MEDS: ACETAMINOPHEN/HYDROcodone 325 MG/7.5 MG TAB PO PRN (20:18)
[2016-12-21] MEDS: sulfaSALAzine EC 500 MG TABEC PO SCH (21:00)
[2016-12-21] MEDS ORDERED: ARIPiprazole 30 MG TAB PO SCH (21:00)
[2016-12-21] MEDS ORDERED: traZODone HCL 100 MG TAB PO SCH (21:00)
[2016-12-21] MEDS: BENZTROPINE MESYLATE 2 MG TAB PO SCH (23:57)
[2016-12-22] VITALS: BP 144/91; PULSE 87; RESP 16; TEMP 97.4; O2SAT 96
[2016-12-22] MEDS: ACETAMINOPHEN/HYDROcodone 325 MG/7.5 MG TAB PO PRN ×3 (02:16→17:08)
[2016-12-22 04:00] VITALS: BP 121/65; PULSE 94; RESP 17; TEMP 97.5; O2SAT 94
[2016-12-22 07:05] LABS: AUTOMATED NEUTROPHIL # 7.8 TH/MM3 (1.8-7.7); BASOPHIL % 0.4 % (0.0-2.0); HEMATOCRIT 29.4 % (35.0-46.0); HEMO FLAGS DIFF FINAL; LYMPH % 19.9 % (9.0-44.0); LYMPHOCYTE # 2.1 TH/MM3 (1.0-4.8); MEAN CELL VOLUME 85.7 FL (80.0-100.0); MEAN CORPUSCULAR HEMOGLOBIN 30.1 PG (27.0-34.0); MEAN CORPUSCULAR HGB CONC 35.1 % (32.0-36.0); MONO % 5.3 % (0.0-8.0); NEUT % 74.4 % (16.0-70.0); PLATELET COUNT 294 TH/MM3 (150-450); RED BLOOD COUNT 3.42 MIL/MM3 (4.00-5.30); RED CELL DISTRIBUTION WIDTH 15.4 % (11.6-17.2); WHITE BLOOD COUNT 10.5 TH/MM3 (4.0-11.0)
[2016-12-22 07:09] LABS: APTT (PATIENT) 24.1 SEC (24.3-30.1); PROTHROMBIN TIME - PATIENT 10.7 SEC (9.8-11.6)
--- NOTE | 2016-12-22 07:12 | PD.ORT.PN ---
Subjective Subjective Remarks pt doing well, states neck and arm pain resolved no hip pain, no SOB, no chest pain Objective Vitals Vital Signs Date Time Temp Pulse Resp B/P (MAP) Pulse Ox O2 Delivery O2 Flow Rate FiO2 12/22/16 04:00 97.5 94 17 121/65 (83) 94 12/22/16 00:00 97.4 87 16 144/91 (108) 96 12/21/16 19:00 97.4 96 17 128/71 (90) 95 12/21/16 17:58 96 Nasal Cannula 2.00 12/21/16 17:10 96.2 88 18 156/91 (112) 96 12/21/16 16:30 86 12 137/69 (91) 99 Nasal Cannula 2 12/21/16 15:30 89 12 153/79 (103) 100 Nasal Cannula 2 12/21/16 15:05 98.5 84 12 100 Nasal Cannula 2 12/21/16 15:00 84 12 150/78 (102) 100 Nasal Cannula 2 12/21/16 14:45 83 12 153/80 (104) 100 Nasal Cannula 2 12/21/16 14:30 83 12 155/82 (106) 100 Nasal Cannula 2 12/21/16 14:15 83 12 149/77 (101) 100 Nasal Cannula 2 12/21/16 14:00 82 14 144/78 (100) 100 Nasal Cannula 2 12/21/16 13:53 97.7 79 20 142/74 (96) 97 Nasal Cannula 2 12/21/16 08:05 98.7 85 18 149/86 (107) 99 I/O 12/21/16 12/21/16 12/21/16 12/22/16 12/22/16 12/22/16 07:00 15:00 23:00 07:00 15:00 23:00 Intake Total 1700 ml 950 ml 480 ml Output Total 200 ml Balance 1500 ml 950 ml 480 ml Intake Oral 480 ml 480 ml IV Total 470 ml Other 1700 ml Output Estimated Blood Loss 200 ml # Voids 3 4 # Bowel Movements 0 0 Other Results Laboratory Tests Test 12/22/16 06:22 Objective Remarks seen by Dr. Ad Frausto [place] collar in place cervical dressing dry and intact motor is +5/5 to UE Assessment & Plan Assessment and Plan POD # 1 s/p C5-7 ACDF [place] collar x 4 weeks discharge home today orthopedically stable Celena Browne Dec 22, 2016 07:12
[2016-12-22 07:28] LABS: ALT (GPT) 22 U/L (10-53); ANION GAP 7 MEQ/L (5-15); AST (GOT) 13 U/L (15-37); BLOOD UREA NITROGEN 15 MG/DL (7-18); CHLORIDE 104 MEQ/L (98-107); GLOMERULAR FILTRATION RATE 77 ML/MIN (>89); POTASSIUM 4.1 MEQ/L (3.5-5.1); SODIUM (NA) 137 MEQ/L (136-145)
[2016-12-22 07:37] LABS: ALKALINE PHOSPHATASE 106 U/L (45-117); TOTAL BILIRUBIN ADULT 0.5 MG/DL (0.2-1.0)
[2016-12-22 08:00] VITALS: BP 131/83; PULSE 96; RESP 18; TEMP 97.4; O2SAT 94
[2016-12-22 08:46] VITALS: O2SAT 94
[2016-12-22] MEDS ORDERED: MULTIVITAMINS/MINERALS THERAPEUTIC TAB PO SCH (09:00)
[2016-12-22] MEDS ORDERED: PRAVASTATIN SOD 40 MG TAB PO SCH (09:00)
[2016-12-22] MEDS ORDERED: PANTOPRAZOLE SOD 20 MG DELAYED RELEASE TAB PO SCH (09:00)
[2016-12-22] MEDS ORDERED: DULoxetine HCl DR 60 MG CAP PO SCH (09:00)
[2016-12-22] MEDS ORDERED: METHOTREXATE 2.5 MG TAB PO SCH (09:00)
[2016-12-22] MEDS: BENZTROPINE MESYLATE 2 MG TAB PO SCH (09:36)
[2016-12-22] MEDS: busPIRone HCL 10 MG TAB PO SCH ×3 (09:36→17:07)
[2016-12-22] MEDS: DILTIAZEM HCL 60 MG TAB PO SCH ×3 (09:36→17:07)
[2016-12-22] MEDS: sulfaSALAzine EC 500 MG TABEC PO SCH (09:36)
[2016-12-22] MEDS: SODIUM CHLORIDE 0.9% FLUSH 10 ML FLUSH IV FLUSH SCH (09:37)
[2016-12-22] MEDS ORDERED: INFLUENZA VIRUS VACCINE (QUADRIVALENT) 0.5 ML SYR IM ONE (10:00)
[2016-12-22] MEDS ORDERED: HYDR-3366 PO (10:23)
[2016-12-22 12:00] VITALS: BP 106/66; PULSE 89; RESP 18; TEMP 97.1; O2SAT 94
--- NOTE | 2016-12-22 12:59 | HHI.FPPN ---
Subjective Remarks History of Present Illness Ms Mcclain is a 51-year-old female with past medical history significant for OA, RA, schizophrenia, hypertension, and possibly A. fib who presented for scheduled cervical spine procedures with Dr. Rodrigo Frausto. She states that she has had 8-9 months of left-sided numbness in the neck and arm. She also notes cervical pain. She was worked up for stroke and this was negative. MRI reportedly revealed severe disc herniation and osteoarthritis. She denies chest pain, shortness of breath, throat pain, nausea, vomiting. She is wearing her collar and feels well this am. She has no worsening complaints and was eating well and her pain was controlled. She was hoping to go home later today. Review of Systems Constitutional: DENIES: Fever, Chills Eyes: DENIES: Blurred vision, Diplopia, Double Vision Ears, nose, mouth, throat: DENIES: Hearing loss, Vertigo, Throat pain, Ear Pain , Running Nose Respiratory: DENIES: Apneas, Cough, Snoring, Sputum production, Shortness of breath Cardiovascular: DENIES: Chest pain, Palpitations, Syncope Gastrointestinal: DENIES: Abdominal pain, Black stools, Bloody stools, Constipation, Nausea, Vomiting Genitourinary: DENIES: Dysmenorrhea, Urinary frequency, Dysuria Musculoskeletal: COMPLAINS OF: Joint Swelling (left knee), Neck pain, DENIES: Back pain Integumentary: DENIES: Pruritus, Rash Hematologic/lymphatic: DENIES: Bruising, Lymphadenopathy Immunologic/allergic: DENIES: Eczema, Urticaria Neurologic: COMPLAINS OF: Paresthesias (left arm, chronic), DENIES: Abnormal gait, Headache, Localized weakness, Poor Balance Psychiatric: DENIES: Anxiety, Depression, Suicidal Ideation, Homicidal Ideation Past Family Social History Allergies: Coded Allergies: No Known Allergies (Verified , 12/21/16) Past Medical History Hypertension Reported hyperthyroidism; however TSH is WNL without any treatment. Dyslipidemia Bipolar d/o, per chart review, managed by Psychiatrist schizophrenia,per chart review, managed by Psychiatrist schizoaffective disorder, per patient, managed by Psychiatrist Rheumatoid arthritis - Managed by Rheumatology Cervical Stenosis - Managed by Orthopedics TARIK - uses CPAP- doesn't know settings. Monomorphic Ventricular Tachycardia Morbid obesity ECHO 10/02/12- EF 60%, study limited because of body habitus. PFT's 03/03/10 (With Dr. Robertson): Moderately severe obstructive airway disease. Positive and significant response to acutely inhaled bronchodilator. No evidence of airways restriction. Normal diffusion when corrected for alveolar volume. Specialists: ACT- Dr. Santamaria- every 3 months. Pulm: Dr. Kathleen Cardiology: Dr. Valera Rheumatology - Unknown physician Orthopedics - Dr. Ad Lutz Past Surgical History hysterectomy 1995 (/ placenta increta), BTL x 2 multiple knee injections, carpal tunnel injections umbilical hernia repair Right carpel tunnel release surgery -10/30 Gastric bypass Reported Medications Reported Meds & Active Scripts Active Lovastatin 40 Mg Tab 40 Mg PO DAILY Cardizem (Diltiazem HCl) 60 Mg Tab 60 Mg PO QID Omeprazole 20 Mg Tab 20 Mg PO DAILY Zanaflex (Tizanidine HCl) 2 Mg Cap 2 Mg PO TID Reported Folic Acid 0.4 Mg Tab 400 Mcg PO DAILY Zorvolex (Diclofenac) 35 Mg Cap 35 Mg PO TID Methotrexate 2.5 Mg Tab 20 Mg PO Q7D Buspirone (Buspirone HCl) 30 Mg Tab 30 Mg PO TID Sulfasalazine DR (Sulfasalazine) 500 Mg Tab 500 Mg PO BID Trazodone (Trazodone HCl) 100 Mg Tablet 100 Mg PO HS Fluphenazine (Fluphenazine HCl) 5 Mg Tab 5 Mg PO DAILY Benztropine (Benztropine Mesylate) 0.5 Mg Tab 2 Mg PO BID Cymbalta DR (Duloxetine HCl) 30 Mg Capdr 120 Mg PO DAILY Abilify (Aripiprazole) 30 Mg Tab 30 Mg PO HS Citracal + D3 Maximum (Calcium Citrate-Vitamin D) 315-250 Mg-Unit Tab 1 Tab PO BID Family History Mom at 54 from COPD, dad at 55 from stroke and DM sister at 44 from bone cancer. Social History She denies smoking, etoh, drugs. She lives with a supportive , Emile and daughter. 33 years Daughter 17 years old, son ~31 years old Disabled from schizophrenia Objective Vitals Vital Signs Date Time Temp Pulse Resp B/P (MAP) Pulse Ox O2 Delivery O2 Flow Rate FiO2 12/22/16 08:46 94 12/22/16 08:00 97.4 96 18 131/83 (99) 94 12/22/16 04:00 97.5 94 17 121/65 (83) 94 12/22/16 00:00 97.4 87 16 144/91 (108) 96 12/21/16 19:00 97.4 96 17 128/71 (90) 95 12/21/16 17:58 96 Nasal Cannula 2.00 12/21/16 17:10 96.2 88 18 156/91 (112) 96 12/21/16 16:30 86 12 137/69 (91) 99 Nasal Cannula 2 12/21/16 15:30 89 12 153/79 (103) 100 Nasal Cannula 2 12/21/16 15:05 98.5 84 12 100 Nasal Cannula 2 12/21/16 15:00 84 12 150/78 (102) 100 Nasal Cannula 2 12/21/16 14:45 83 12 153/80 (104) 100 Nasal Cannula 2 12/21/16 14:30 83 12 155/82 (106) 100 Nasal Cannula 2 12/21/16 14:15 83 12 149/77 (101) 100 Nasal Cannula 2 12/21/16 14:00 82 14 144/78 (100) 100 Nasal Cannula 2 12/21/16 13:53 97.7 79 20 142/74 (96) 97 Nasal Cannula 2 I/O 12/21/16 12/21/16 12/21/16 12/22/16 12/22/16 12/22/16 07:00 15:00 23:00 07:00 15:00 23:00 Intake Total 1700 ml 950 ml 480 ml 100 ml Output Total 200 ml Balance 1500 ml 950 ml 480 ml 100 ml Intake Oral 480 ml 480 ml IV Total 470 ml 100 ml Other 1700 ml Output Estimated Blood Loss 200 ml # Voids 3 4 # Bowel Movements 0 0 Result Diagram: 12/22/1662112/22/16621 Objective Remarks Physical Exam VS: Reviewed. Within normal limits aside from mild hypertension. GENERAL: Well-nourished, well-developed female. She appears to be in no apparent distress. Cervical collar in place.She is moving her neck some SKIN: Warm and dry. Well-healed scar on abdomen and bilateral wrists from previous procedures. Surgical dressing on front of neck noted through surgery collar. HEENT: Atraumatic, normocephalic with EOMI. PERRLA. Oropharynx clear without erythema or exudate. No rhinorrhea. No visible JVD or LAD appreciated. CARDIOVASCULAR: Regular rate and rhythm without murmurs, gallops, or rubs. RESPIRATORY: Clear to auscultation bilaterally with no wheezing, rales, or rhonchi. No accessory muscle use. GASTROINTESTINAL: Abdomen soft, non-tender, obese. She has reduced bowel sounds. Well-healed bariatric surgery scars. No masses appreciated. MUSCULOSKELETAL: No cyanosis appreciated. Mild effusion of both knees, with significant effusion on the left knee. It is also warm and painful to touch along the lateral joint. Neuro: Afocal. AAO 3. She has mild difficulty with reviewing medical history. Cranial nerves II through XII intact. Normal speech and judgment. Urinary Catheter: No Vascular Central Line Catheter: No A/P Assessment and Plan (1) Herniated nucleus pulposus, C5-6 ICD Codes: M50.222 - Other cervical disc displacement at C5-C6 level Status: Chronic Plan: Patient is POD #1 status post anterior body procedure, anterior cervical cage, spinal tissue mentation of C5-C6, C6-C7. Patient did receive preoperative evaluation on 12/11/[address] Chaz Vivar, his PCP. Workup at that time revealed no acute concerns preoperatively. EKG showed normal sinus rhythm, rate 89. CXR preoperatively on 12/06/16 showed no acute disease. Medical team was consulted for medical management of chronic medical conditions. * Medications from home have been reconciled by primary surgical team, noted above. Per primary team, diclofenac and calcium/vitamin D supplementation, and folic acid were held; the following medications were continued as inpatient: * Sulfasalazine * Methotrexate * Tizanidine * Cardizem 60 QID * Cymbalta 120 mg daily * Trazodone 100 mg every night * Abilify 30 mg at night * Fluphenazine 5 mg daily * Buspirone 30 mg TID * Benztropine 2 mg twice daily * Omeprazole 20 mg daily * Recommend monitoring vital signs every 4 hours, ordered * Recommend neuro checks every 4 hours, ordered * We'll obtain CBC, CMP, coag profile for baseline, recheck tomorrow * Pain control ordered by primary team ([place], morphine when necessary). Patient likely will tolerate escalation of pain medications if needed * Activity level: Ordered out of bed with assistance, physical therapy consult placed * We'll order incentive spirometry to reduce risk of atelectasis postoperatively * For hypertension, we'll add clonidine PRN BP > 180/100. May consider Vasotec PRN if kidneys are normal in function (labs pending) (2) Herniated nucleus pulposus, C6-7 ICD Codes: M50.223 - Other cervical disc displacement at C6-C7 level Status: Chronic (3) Hyperthyroidism ICD Codes: E05.90 - Thyrotoxicosis, unspecified without thyrotoxic crisis or storm Status: Chronic Plan: Will check TSH (4) Hypercholesterolemia ICD Codes: E78.0 - Hypercholesterolemia Status: Acute (5) CKD (chronic kidney disease) ICD Codes: N18.9 - CKD (chronic kidney disease) Status: Chronic Plan: Chronic kidney disease noted, stage 1 (6) Schizophrenia ICD Codes: F20.9 - Schizophrenia Status: Chronic Plan: Chronic psychiatric disease. Continue psychotropic medications Code Status: Shock, Compressions, Intubation, ACLS Drugs Discharge Planning home when cleared by surgery with follow up at their office she lives with her and he will assist her at home Maddy Jackson MD Dec 22, 2016 12:59
--- NOTE | 2016-12-22 14:20 | HHI.DCPOC ---
Discharge Care Plan Diagnosis: (1) S/P cervical discectomy (2) Herniated nucleus pulposus, C5-6 (3) Herniated nucleus pulposus, C6-7 (4) Neuralgia Goals to Promote Your Health * To prevent worsening of your condition and complications * To maintain your health at the optimal level Directions to Meet Your Goals Take your medications as prescribed Follow your dietary instruction Follow activity as directed Keep your appointments as scheduled Take your immunizations and boosters as scheduled If your symptoms worsen call your PCP, if no PCP go to Urgent Care Center or Emergency Room Smoking is Dangerous to Your Health. Avoid second hand smoke Call the 24-hour hour crisis hotline for domestic abuse at Saeed Olmstead MD R3 Dec 22, 2016 14:20
[2016-12-22] MEDS: LACTATED RINGER'S 1000 ML INJ 1,000 ML IV SCH (15:00)
[2016-12-22 16:00] VITALS: BP 112/65; PULSE 108; RESP 18; TEMP 98.3; O2SAT 92
[2017-01-04] MEDS ORDERED: ALBUAER3 INH (09:24)
== END 2016-12-22 18:26 | disposition home or self-care (01) ==
LOC: HSDC 06:52 → HSDI 13:46 → INTOOBSV 13:46 → N06B 17:15
PROVIDERS: ADMIT Family Medicine; ATTEND Family Medicine
DX: M50.122 Cervical disc disorder at C5-C6 level with radiculopathy (principal); M50.123 Cervical disc disorder at C6-C7 level with radiculopathy; N18.1 Chronic kidney disease, stage 1; I12.9 Hypertensive chronic kidney disease with stage 1 through stage 4 chronic kidney disease, or unspecified chronic kidney disease; E78.5 Hyperlipidemia, unspecified; E05.90 Thyrotoxicosis, unspecified without thyrotoxic crisis or storm; F25.9 Schizoaffective disorder, unspecified; M06.9 Rheumatoid arthritis, unspecified; G47.33 Obstructive sleep apnea (adult) (pediatric); Z23 Encounter for immunization; Z79.899 Other long term (current) drug therapy; Z98.84 Bariatric surgery status
CPT/HCPCS: 00600; 20937; 22551; 22552; 72040; 76000; 80053; 84443; 85025; 85610; 85730; 94150; 96365; 96366; 96372; 97162; 99285; C1713; G0378; G8987; G8988; J0690; J1100; J1170; J1580; J2250; J2270; J2405; J3010; J3370; J7050; J7120; J8610; Q2038; 90686

== ENCOUNTER → 2017-04-03 | Outpatient (CLI) | payer MEDICARE, OTHER ==
[~2017-04-03] MED LIST changes: -ABIL30TA2 PO; +ABIL30TA5 PO; +ALBUAER3 INH; -DICL1CAP4 PO; +HYDR-3366 PO; -OMEP20TA PO; +OMEP20TA93 PO; +TRAZ100T10 PO; -TRAZ100T6 PO
[2017-04-03 12:03] LABS: HEMATOCRIT 32.5 % (35.0-46.0); HEMOGLOBIN 11.4 GM/DL (11.6-15.3); MEAN CELL VOLUME 84.4 FL (80.0-100.0); MEAN CORPUSCULAR HEMOGLOBIN 29.5 PG (27.0-34.0); MEAN PLATELET VOLUME 7.4 FL (7.0-11.0); PLATELET COUNT 328 TH/MM3 (150-450); RED BLOOD COUNT 3.85 MIL/MM3 (4.00-5.30); RED CELL DISTRIBUTION WIDTH 19.3 % (11.6-17.2); WHITE BLOOD COUNT 7.3 TH/MM3 (4.0-11.0)
[2017-04-03 12:39] LABS: ALBUMIN 3.9 GM/DL (3.4-5.0); AST (GOT) 16 U/L (15-37); BICARBONATE 25.9 MEQ/L (21.0-32.0); BLOOD UREA NITROGEN 17 MG/DL (7-18); C-REACTIVE PROTEIN LESS THAN 0.29 MG/DL (0.00-0.30); CALCIUM 9.4 MG/DL (8.5-10.1); CHLORIDE 104 MEQ/L (98-107); CREATININE 1.17 MG/DL (0.50-1.00); GLOMERULAR FILTRATION RATE 59 ML/MIN (>89); GLUCOSE,FASTING 87 MG/DL (74-99); SODIUM (NA) 137 MEQ/L (136-145)
[2017-04-03 12:42] LABS: ALKALINE PHOSPHATASE 142 U/L (45-117); ALT (GPT) 35 U/L (10-53); TOTAL BILIRUBIN ADULT 0.6 MG/DL (0.2-1.0); TOTAL PROTEIN 8.1 GM/DL (6.4-8.2)
[2017-04-03 13:50] LABS: WESTERGREN SEDIMENTATION RATE 44 mm/hr (0-30)
== END ==
LOC: ELAB 10:29
PROVIDERS: ATTEND Internal Medicine Rheumatology
DX: M05.89 Other rheumatoid arthritis with rheumatoid factor of multiple sites (principal); Z79.899 Other long term (current) drug therapy
CPT/HCPCS: 36415; 80053; 85027; 85652; 86140

== ENCOUNTER → 2017-07-03 | Outpatient (CLI) | payer MEDICARE, OTHER ==
[2017-07-03 10:22] LABS: HEMATOCRIT 33.2 % (35.0-46.0); HEMOGLOBIN 11.4 GM/DL (11.6-15.3); MEAN CELL VOLUME 82.9 FL (80.0-100.0); MEAN CORPUSCULAR HEMOGLOBIN 28.5 PG (27.0-34.0); MEAN CORPUSCULAR HGB CONC 34.4 % (32.0-36.0); MEAN PLATELET VOLUME 7.3 FL (7.0-11.0); PLATELET COUNT 352 TH/MM3 (150-450); RED BLOOD COUNT 4.01 MIL/MM3 (4.00-5.30); RED CELL DISTRIBUTION WIDTH 17.3 % (11.6-17.2); WHITE BLOOD COUNT 7.2 TH/MM3 (4.0-11.0)
[2017-07-03 10:42] LABS: WESTERGREN SEDIMENTATION RATE 61 mm/hr (0-30)
[2017-07-03 11:01] LABS: ALBUMIN 3.8 GM/DL (3.4-5.0); ALT (GPT) 25 U/L (10-53); AST (GOT) 23 U/L (15-37); BICARBONATE 26.9 MEQ/L (21.0-32.0); BLOOD UREA NITROGEN 16 MG/DL (7-18); CALCIUM 9.2 MG/DL (8.5-10.1); CHLORIDE 104 MEQ/L (98-107); CREATININE 1.18 MG/DL (0.50-1.00); GLOMERULAR FILTRATION RATE 58 ML/MIN (>89); GLUCOSE,RANDOM 85 MG/DL (74-106); SODIUM (NA) 137 MEQ/L (136-145)
[2017-07-03 11:04] LABS: ALKALINE PHOSPHATASE 147 U/L (45-117); TOTAL BILIRUBIN ADULT 0.4 MG/DL (0.2-1.0); TOTAL PROTEIN 8.5 GM/DL (6.4-8.2)
== END ==
LOC: ELAB 08:13
PROVIDERS: ATTEND Internal Medicine Rheumatology
DX: M05.89 Other rheumatoid arthritis with rheumatoid factor of multiple sites (principal); Z79.899 Other long term (current) drug therapy
CPT/HCPCS: 36415; 80053; 85027; 85652; 86140

== ENCOUNTER → 2017-07-16 | Outpatient (CLI) | payer MEDICARE, OTHER ==
[~2017-07-16] MED LIST changes: +DEXA4TAB PO; +DULO1CAP3 PO; +HYDR-3516 PO; +LEFL1TAB3 PO; +TIZA4TAB PO
[2017-07-16 12:29] LABS: BILIRUBIN, URINE NEG (NEG); BLOOD, URINE NEG (NEG); GLUCOSE,URINE NEG (NEG); KETONE, URINE TRACE mg/dL (NEG); MUCUS URINE FEW /lpf (OCC); NITRITE,URINE NEG (NEG); SQUAMOUS EPITHELIAL CELL URINE 3 /hpf (0-5); URINE COLOR YELLOW (YELLW/STRAW); URINE LEUKOCYTE ESTERASE TRACE (NEG)
[2017-07-16 12:33] LABS: HEMATOCRIT 33.8 % (35.0-46.0); HEMOGLOBIN 11.7 GM/DL (11.6-15.3); MEAN CELL VOLUME 82.5 FL (80.0-100.0); MEAN CORPUSCULAR HEMOGLOBIN 28.5 PG (27.0-34.0); MEAN CORPUSCULAR HGB CONC 34.6 % (32.0-36.0); MEAN PLATELET VOLUME 7.8 FL (7.0-11.0); PLATELET COUNT 391 TH/MM3 (150-450); WHITE BLOOD COUNT 8.1 TH/MM3 (4.0-11.0)
[2017-07-16 12:56] LABS: BICARBONATE 29.2 MEQ/L (21.0-32.0); CALCIUM 9.4 MG/DL (8.5-10.1); CREATININE 1.06 MG/DL (0.50-1.00)
[2017-07-16 13:22] LABS: BASOPHILS 2 % (0-2); LYMPHOCYTES 32 % (9-44); MONOCYTES 2 % (0-8); NEUTROPHIL # MANUAL DIFF 5.1 TH/MM3 (1.8-7.7); POLYS (SEG NEUTROPHILS) 63 % (16-70)
--- NOTE | 2017-07-16 16:33 | EKG ---
Date Performed: 07/16/2017 Time Performed: 11:51:20 PTAGE: 51 years EKG: Sinus rhythm NORMAL ECG No significant change from prior electrocardiogram. DOCTOR: Damon Grimes Interpretating Date/Time 07/16/2017 16:32:03
== END ==
LOC: CPRE 11:32
PROVIDERS: ATTEND Orthopaedic Surgery Orthopaedic Surgery of the Spine
DX: Z01.812 Encounter for preprocedural laboratory examination (principal); Z01.810 Encounter for preprocedural cardiovascular examination; M17.12 Unilateral primary osteoarthritis, left knee
CPT/HCPCS: 36415; 80048; 81001; 85007; 85027; 93005

== ENCOUNTER 2017-07-26 05:59 | Inpatient (IN) | payer MEDICARE, OTHER ==
[2017-07-26] MEDS: CHLORHEXIDINE GLUCONATE 2 % 1 PACK (2 CLOTHS) TOPICAL (06:15)
[2017-07-26] MEDS: ACETAMINOPHEN 1000 MG/100 ML 100 ML IV (06:20)
[2017-07-26] MEDS ORDERED: INSULIN HUMAN REGULAR 1,000 UNITS/10 ML VIAL SQ (06:30)
[2017-07-26] MEDS ORDERED: METOPROLOL TARTRATE 25 MG TAB PO (06:30)
[2017-07-26] MEDS ORDERED: SODIUM CHLORID 0.9% 500 ML IV (06:30)
[2017-07-26] MEDS: LACTATED RINGER'S 1000 ML IV (06:50)
[2017-07-26] MEDS: CHLORHEXIDINE GLUCONATE 4% SOLN 120 ML BTL TOPICAL (07:00)
[2017-07-26] MEDS: POVIDONE IODINE 5% (ANTISEPSIS KIT) 4 APPLICATIONS EACH NARE (07:02)
[2017-07-26] MEDS: FAT EMULSION 20% INJ 0 ML (07:21)
[2017-07-26] MEDS: BUPIVACAINE HCL PF 0.5% 30 ML VIAL (08:00)
[2017-07-26] MEDS: VANCOMYCIN 1 GM/200 ML INJ 200 ML IV (08:02)
[2017-07-26] MEDS: MIDAZOLAM HCL 5 MG/5 ML VIAL (08:07)
[2017-07-26] MEDS: VANCOMYCIN 1000 MG/NS 250 ML (for <70 kg) IV (08:20)
[2017-07-26] MEDS: ceFAZolin 2 GM PREMIX 50 ML IV (08:45)
[2017-07-26] MEDS: ROPIVACAINE PERI-ARTICULAR INJECTION. P-ARTICULR (09:10)
[2017-07-26] MEDS: LACTATED RINGER'S 1000 ML INJ 1,000 ML IV ×2 (11:17→23:09)
[2017-07-26] MEDS: *morphine SULFATE 8 MG/ML PERIprocedure ONLY (11:29)
[2017-07-26] MEDS ORDERED: ALUMINUM/MAGNESIUM/SIMETH 30 ML CUP PO (11:30)
[2017-07-26] MEDS ORDERED: ONDANSETRON HCL 4 MG/2 ML VIAL IVP (11:30)
[2017-07-26] MEDS ORDERED: ACETAMINOPHEN/HYDROcodone 325 MG/7.5 MG TAB PO (11:30)
[2017-07-26] MEDS ORDERED: MORPHINE SULFATE 4 MG/ML INJ IV PUSH (11:30)
[2017-07-26] MEDS ORDERED: ALBUTEROL SULFATE 90 MCG/ACT HFA 8 GM INHALER INH (11:30)
[2017-07-26] MEDS ORDERED: Post-op Orders (for Pharmacy) XX (11:30)
[2017-07-26] MEDS: KETAMINE HCL 500 MG/10 ML VIAL (11:31)
[2017-07-26] MEDS ORDERED: LACTATED RINGER'S 1000 ML INJ 1,000 ML IV (12:00)
[2017-07-26] MEDS ORDERED: LABETALOL HCL 100 MG/20 ML VIAL IV (12:00)
[2017-07-26] MEDS ORDERED: PHENYLEPH/NS 1000 MCG/10 ML SYR IV (12:00)
[2017-07-26] MEDS ORDERED: LIDOCAINE HCL 1% PF 5 ML SYRINGE OTHER (12:00)
[2017-07-26] MEDS ORDERED: ONDANSETRON HCL 4 MG/2 ML VIAL IV PUSH (12:00)
[2017-07-26] MEDS ORDERED: DEXAMETHASONE SOD PHOS 4 MG/ML VIAL IV (12:00)
[2017-07-26] MEDS ORDERED: ROCURONIUM INJ 50 MG/5 ML SYRINGE IV PUSH (12:00)
[2017-07-26] MEDS ORDERED: GLYCOPYRROLATE 1 MG/5 ML SYRINGE IV PUSH (12:00)
[2017-07-26] MEDS ORDERED: NEOSTIGMINE 5 MG/5 ML SYRINGE IV PUSH (12:00)
[2017-07-26] MEDS ORDERED: PROPOFOL 200 MG/20 ML AMP IV (12:00)
[2017-07-26] MEDS: *ENALAPRILAT 1.25 MG/ML VIAL PERIprocedural Use ONLY (12:39)
[2017-07-26] MEDS ORDERED: ONDANSETRON ODT 4 MG TAB PO (12:45)
[2017-07-26] MEDS ORDERED: cloNIDine HCL 0.1 MG TAB PO (12:45)
[2017-07-26] MEDS: busPIRone HCL 10 MG TAB PO ×2 (13:00→18:00)
[2017-07-26] MEDS: *morphine SULFATE 4 MG/ML PERIprocedure ONLY (13:08)
[2017-07-26] MEDS ORDERED: DO NOT ADM ANY ANTICOAGULANT DRUGS (13:45)
[2017-07-26] MEDS: ACETAMINOPHEN/HYDROcodone 325 MG/7.5 MG TAB PO ×2 (14:17→19:35)
[2017-07-26] MEDS: ARIPiprazole 30 MG TAB PO (20:57)
[2017-07-26] MEDS: PRAVASTATIN SOD 40 MG TAB PO (20:57)
[2017-07-26] MEDS: DILTIAZEM HCL 60 MG TAB PO (20:57)
[2017-07-26] MEDS: DEXAMETHASONE 4 MG TAB PO (20:57)
[2017-07-26] MEDS: traZODone HCL 100 MG TAB PO (20:57)
[2017-07-26] MEDS: ASPIRIN EC 81 MG TABEC PO (20:57)
[2017-07-26] MEDS: BENZTROPINE MESYLATE 2 MG TAB PO (20:57)
[2017-07-27] MEDS: ACETAMINOPHEN/HYDROcodone 325 MG/7.5 MG TAB PO ×6 (02:50→23:39)
[2017-07-27 04:04] LABS: HEMATOCRIT 23.6 % (35.0-46.0); REVIEW FLAG FINAL
[2017-07-27 04:04] LABS: HEMOGLOBIN 8.1 GM/DL (11.6-15.3)
[2017-07-27] MEDS: busPIRone HCL 10 MG TAB PO ×3 (08:56→18:32)
[2017-07-27] MEDS: DEXAMETHASONE 4 MG TAB PO ×2 (08:56→19:58)
[2017-07-27] MEDS: BENZTROPINE MESYLATE 2 MG TAB PO ×2 (08:56→19:58)
[2017-07-27] MEDS: ASPIRIN EC 81 MG TABEC PO ×2 (08:56→19:58)
[2017-07-27] MEDS: PANTOPRAZOLE SOD 20 MG DELAYED RELEASE TAB PO (08:56)
[2017-07-27] MEDS: DULoxetine HCl DR 60 MG CAP PO (08:56)
[2017-07-27] MEDS: DILTIAZEM HCL 60 MG TAB PO ×3 (08:57→19:58)
[2017-07-27] MEDS ORDERED: LEFLUNOMIDE 20 MG PO (09:00)
[2017-07-27] MEDS ORDERED: [UNRECOGNIZED DRUG - OTHER] PO (09:00)
[2017-07-27] MEDS ORDERED: MAGNESIUM HYDROXIDE SUSP 30 ML CUP PO (09:30)
[2017-07-27 11:32] LABS: BACTERIA, URINE RARE /hpf; BILIRUBIN, URINE NEG (NEG); BLOOD, URINE NEG (NEG); COMMENT (UR) CULT NOT INDICATED; CULTURE IF INDICATED CULT NOT INDICATED; GLUCOSE,URINE 70 mg/dL (NEG); KETONE, URINE NEG (NEG); NITRITE,URINE NEG (NEG); SQUAMOUS EPITHELIAL CELL URINE 6 /hpf (0-5); URINE COLOR YELLOW (YELLW/STRAW); URINE LEUKOCYTE ESTERASE NEG (NEG)
[2017-07-27] MEDS: LACTATED RINGER'S 1000 ML INJ 1,000 ML IV ×2 (12:17→19:59)
[2017-07-27] MEDS: BISACODYL 10 MG SUPP RECTAL (14:34)
[2017-07-27] MEDS: PRAVASTATIN SOD 40 MG TAB PO (19:58)
[2017-07-27] MEDS: ARIPiprazole 30 MG TAB PO (19:58)
[2017-07-27] MEDS: traZODone HCL 100 MG TAB PO (19:58)
[2017-07-27] MEDS: DOCUSATE SODIUM 50 MG/SENNA 8.6 MG TAB PO (19:58)
[2017-07-28] MEDS: ACETAMINOPHEN/HYDROcodone 325 MG/7.5 MG TAB PO (03:57)
[2017-07-28] MEDS ORDERED: ACETAMINOPHEN/HYDROcodone 325 MG/10 MG TAB PO (06:45)
[2017-07-28 07:39] LABS: HEMOGLOBIN 8.2 GM/DL (11.6-15.3); MEAN CELL VOLUME 83.6 FL (80.0-100.0); MEAN CORPUSCULAR HEMOGLOBIN 28.5 PG (27.0-34.0); PLATELET COUNT 255 TH/MM3 (150-450); RED BLOOD COUNT 2.87 MIL/MM3 (4.00-5.30); RED CELL DISTRIBUTION WIDTH 17.2 % (11.6-17.2); WHITE BLOOD COUNT 12.4 TH/MM3 (4.0-11.0)
[2017-07-28 07:58] LABS: ANION GAP 5 MEQ/L (5-15); AST (GOT) 19 U/L (15-37); BICARBONATE 29.6 MEQ/L (21.0-32.0); BLOOD UREA NITROGEN 17 MG/DL (7-18); CALCIUM 8.5 MG/DL (8.5-10.1); CHLORIDE 105 MEQ/L (98-107); CREATININE 0.93 MG/DL (0.50-1.00); GLOMERULAR FILTRATION RATE 76 ML/MIN (>89); GLUCOSE,RANDOM 114 MG/DL (74-106); POTASSIUM 4.5 MEQ/L (3.5-5.1); SODIUM (NA) 140 MEQ/L (136-145)
[2017-07-28 08:02] LABS: ALKALINE PHOSPHATASE 93 U/L (45-117); ALT (GPT) 15 U/L (10-53); TOTAL BILIRUBIN ADULT 0.3 MG/DL (0.2-1.0); TOTAL PROTEIN 7.1 GM/DL (6.4-8.2)
[2017-07-28 08:17] LABS: REVIEW FLAG FINAL
[2017-07-28] MEDS: DULoxetine HCl DR 60 MG CAP PO (09:41)
[2017-07-28] MEDS: BENZTROPINE MESYLATE 2 MG TAB PO ×2 (09:41→21:58)
[2017-07-28] MEDS: DEXAMETHASONE 4 MG TAB PO ×2 (09:41→21:58)
[2017-07-28] MEDS: ASPIRIN EC 81 MG TABEC PO ×2 (09:41→21:57)
[2017-07-28] MEDS: busPIRone HCL 10 MG TAB PO ×3 (09:41→17:46)
[2017-07-28] MEDS: DILTIAZEM HCL 60 MG TAB PO ×3 (09:42→21:00)
[2017-07-28] MEDS: PANTOPRAZOLE SOD 20 MG DELAYED RELEASE TAB PO (09:42)
[2017-07-28] MEDS: ACETAMINOPHEN/HYDROcodone 325 MG/10 MG TAB PO ×3 (09:42→22:00)
[2017-07-28] MEDS: LACTATED RINGER'S 1000 ML INJ 1,000 ML IV (13:17)
[2017-07-28] MEDS: traZODone HCL 100 MG TAB PO (21:00)
[2017-07-28] MEDS: ARIPiprazole 30 MG TAB PO (21:58)
[2017-07-28] MEDS: PRAVASTATIN SOD 40 MG TAB PO (21:58)
[2017-07-29] MEDS: LACTATED RINGER'S 1000 ML INJ 1,000 ML IV (01:47)
[2017-07-29] MEDS: ACETAMINOPHEN/HYDROcodone 325 MG/10 MG TAB PO ×2 (04:27→11:02)
[2017-07-29] MEDS: PANTOPRAZOLE SOD 20 MG DELAYED RELEASE TAB PO (08:47)
[2017-07-29] MEDS: DULoxetine HCl DR 60 MG CAP PO (08:47)
[2017-07-29] MEDS: DEXAMETHASONE 4 MG TAB PO (08:48)
[2017-07-29] MEDS: ASPIRIN EC 81 MG TABEC PO (08:48)
[2017-07-29] MEDS: busPIRone HCL 10 MG TAB PO ×2 (08:48→12:14)
[2017-07-29] MEDS: BENZTROPINE MESYLATE 2 MG TAB PO (08:48)
[2017-07-29] MEDS: DILTIAZEM HCL 60 MG TAB PO ×2 (08:49→11:08)
[2017-08-01] MEDS ORDERED: METHOTREXATE 2.5 MG TAB PO (09:00)
== END 2017-07-29 12:28 | DRG 470 ==
LOC: HSDI 05:59 → N06B 13:55
PROVIDERS: Orthopaedic Surgery Orthopaedic Surgery of the Spine
PROC: 0SRD0JA Replacement of Left Knee Joint with Synthetic Substitute, Uncemented, Open Approach (ICD-10-PCS; principal; 2017-07-26 08:24)
DX: M17.12 Unilateral primary osteoarthritis, left knee (principal); I47.2 Ventricular tachycardia; Z68.43 Body mass index [BMI] 50.0-59.9, adult; E66.01 Morbid (severe) obesity due to excess calories; M48.02 Spinal stenosis, cervical region; F25.9 Schizoaffective disorder, unspecified; M06.9 Rheumatoid arthritis, unspecified; M21.162 Varus deformity, not elsewhere classified, left knee; I12.9 Hypertensive chronic kidney disease with stage 1 through stage 4 chronic kidney disease, or unspecified chronic kidney disease; N18.9 Chronic kidney disease, unspecified; E78.00 Pure hypercholesterolemia, unspecified; G47.33 Obstructive sleep apnea (adult) (pediatric); E78.5 Hyperlipidemia, unspecified; E05.90 Thyrotoxicosis, unspecified without thyrotoxic crisis or storm; R30.0 Dysuria; Z98.84 Bariatric surgery status
CPT/HCPCS: 73560; 80053; 81001; 85014; 85018; 85027; 86850; 86900; 86901; 86920; 94150; 97110-GP; 97116-GP; 97150-GP; 97163-GP

== ENCOUNTER 2017-09-27 07:43 | Inpatient (IN) ==
[2017-09-27] MEDS ORDERED: Sod Chloride 0.9% Inj 1,000 ML IV.SIG ONE (08:13)
--- NOTE | 2017-09-27 08:22 | ED ---
HPI General Chief Complaint: Altered Mental Status Stated Complaint: Confusion Time Seen by Provider: 09/27/17 08:10 Source: patient Mode of arrival: EMS Limitations: altered mental status History of Present Illness 51-year-old female who presents by ambulance with her son now at bedside who is concerned that patient for the past week has been short of breath and having diarrhea. He states that she is also not acting herself over the past month since she was discharged from rehabilitation. He states that she is currently on her last day of an antibiotic for an infection to her left leg through her surgeon but he does not know what it is. Patient cannot provide me significant clinical history at this time but notes chest pain. Patient has past medical history of hypertension, hypothyroid, chronic renal insufficiency and high cholesterol Past surgical history includes recent total knee replacement, remote neck surgery MD Complaint: shortness of breath Onset (ago): week(s) Associated symptoms: other (diarrhea, altered mental status) Related Data Home oxygen amount: none Home Medications Medication Instructions Recorded Confirmed aripiprazole 30 mg PO DAILY 09/27/17 09/27/17 benztropine 2 mg PO BID 09/27/17 09/27/17 buspirone 30 mg PO TID 09/27/17 09/27/17 diclofenac sodium 75 mg PO BID 09/27/17 09/27/17 diltiazem HCl 60 mg PO QID 09/27/17 09/27/17 duloxetine 60 mg PO DAILY 09/27/17 09/27/17 leflunomide 20 mg PO DAILY 09/27/17 09/27/17 lovastatin 40 mg PO DAILY 09/27/17 09/27/17 methotrexate 20 mg/m2 PO QWEEK 09/27/17 09/27/17 omeprazole 20 mg PO DAILY 09/27/17 09/27/17 tizanidine 4 mg PO TID PRN 09/27/17 09/27/17 trazodone 100 mg PO DAILY 09/27/17 09/27/17 Allergies Allergy/AdvReac Type Severity Reaction Status Date / Time No Known Allergies Allergy Unverified 09/27/17 10:30 Review of Systems Except as stated in HPI: all other systems reviewed are negative (per son) PMFSH History History Provided By: Family Member (reviewed and confirmed history again at 9 am ) Social History Social History Substance History: No History of Abuse Second Hand Smoke Exposure: Yes Smoking Status: Never smoker How Often Do You Have a Drink Containing Alcohol: Never Recent Travel in [place] within the Last 8 Weeks: No Recent Out of Country Travel within the Last 8 Weeks: No Exam Narrative Exam Narrative: GENERAL: 51 y/o female who appears ill SKIN: Patient has small opening to anterior aspect of left knee with drainage noted, to lower abdomen patient has open areas that patient's son states that she has been scratching herself HEAD: Atraumatic. Normocephalic. EYES: Pupils equal and round. No scleral icterus. No injection or drainage. ENT: No nasal bleeding or discharge. Mucous membranes pink and moist. NECK: Trachea midline. CARDIOVASCULAR: Tachycardic rate and regular rhythm RESPIRATORY: No accessory muscle use. Clear to auscultation. Breath sounds equal bilaterally. GASTROINTESTINAL: Abdomen soft, mild tenderness diffusely, nondistended MUSCULOSKELETAL: No obvious deformities. No clubbing. No cyanosis. NEUROLOGICAL: Awake. Moves extremities Procedures Hemaprompt Stool Procedural Steps Taken: specimen placed in appropriate test area, developer placed on specimen and control areas and controls appropriately positive and negative Hemaprompt Stool Result: negative Course Reevaluation(s) Reevaluation #1: Patient's blood pressure has improved after IV fluids. Critical hematology noted. 3 units of blood ordered and one on hold. Patient and family updated Reevaluation #2: Patient has critical neutropenia. Neutropenic precautions ordered. Vancomycin and Zosyn ordered previously. awaiting Lactate Reevaluation #3: patient's blood pressure is still improving, will closely monitor in icu with medical team Consultations Consultation #1: resident team agree to admit Initial Documented Vital Signs Temperature 98.2 F 09/27/17 07:58 Pulse Rate 110 H 09/27/17 07:58 Respiratory Rate 18 09/27/17 07:58 Blood Pressure 95/47 L 09/27/17 07:58 Pulse Oximetry 94 L 09/27/17 07:58 Last Documented Vital Signs Temperature 98.2 F 09/27/17 07:58 Pulse Rate 110 H 09/27/17 12:00 Respiratory Rate 17 09/27/17 12:00 Blood Pressure 119/53 L 09/27/17 12:00 Pulse Oximetry 99 09/27/17 12:00 Critical Care Time Critical Care Time: Yes Total Critical Care Time: 65 Attestation: Aggregate critical care time was 65 minutes. Time to perform other separately billable procedures was not included in the critical care time. My time did not include minutes spent treating any other patients simultaneously or on activities that did not directly contribute to the patient's treatment. The services I provided to this patient were to treat and/or prevent clinically significant deterioration that could result in: Shock, I provided critical care services requiring my management, as noted below: Chart data review, documentation time, medication orders and management, vital sign assessments/reviewing monitor data, ordering and reviewing lab tests, ordering and interpreting/reviewing x-rays and diagnostic studies, care of the patient and discussion of the patient with the admitting physicians. Medical Decision Making MDM Narrative Medical decision making narrative: Patient arrives by EMS tachycardic and hypotensive with son stating she has been short of breath and having diarrhea for the past week as well as altered for the past month. Will check extensive workup and dose with IV fluids and reevaluate Differential Diagnosis Differential Diagnosis: UTI, sepsis, pneumonia, C. difficile, DVT, postop infection, anemia, renal failure Lab Data Lab results reviewed: Yes I reviewed the patient's lab results. Result diagrams: 09/27/17 08:10 09/27/17 08:10 Lab Results 09/27/17 09/27/17 09/27/17 Range/Units 08:10 08:10 08:10 WBC 0.9 L (4.0-11.0) th/mm3 RBC 2.16 L (4.00-5.30) mil/mm3 Hgb 5.5 L* (11.6-15.3) gm/dL Hct 16.3 L* (35.0-46.0) % MCV 75.5 L (80.0-100.0) fL MCH 25.4 L (27.0-34.0) pg MCHC 33.6 (32.0-36.0) % RDW 23.8 H (11.6-17.2) % Plt Count 162 (150-450) th/mm3 MPV 6.6 L (7.0-11.0) fL Prelim Diff (Auto) Manual diff required WBC Differential Manual diff final Seg Neuts % (Manual) 36 (16-70) % Band Neuts % (Manual) 5 (0-6) % Lymphocytes % (Manual) 50 H (9-44) % Monocytes % (Manual) 3 (0-8) % Eosinophils % (Manual) 6 H (0-4) % Abs Neuts (Manual) 0.4 L* (1.8-7.7) th/mm3 Nucleated RBCs/100 WBC 6 H (0-0) /100 WBC Differential Comment . Platelet Estimate Low L (Normal) Platelet Morphology Normal (Normal) Target Cells 2+ H (None) PT 12.3 H (9.8-11.6) sec INR 1.2 Ratio APTT 30.2 H (24.3-30.1) sec Sodium 136 (136-145) meq/L Potassium 3.0 L (3.5-5.1) meq/L Chloride 100 (98-107) meq/L Carbon Dioxide 20.1 L (21.0-32.0) meq/L Anion Gap 16 H (5-15) meq/L BUN 17 (7-18) mg/dL Creatinine 1.50 H (0.50-1.00) mg/dL Estimated GFR 44 L (>89) mL/min POC Glucose (68-110) mg/dl Random Glucose 98 (74-106) mg/dL Lactic Acid (0.4-2.0) mmol/L Calcium 8.2 L (8.5-10.1) mg/dL Phosphorus 2.5 (2.5-4.9) mg/dL Magnesium 1.6 (1.5-2.5) mg/dL Total Bilirubin 0.8 (0.2-1.0) mg/dL AST 12 L (15-37) U/L ALT 29 (10-53) U/L Alkaline Phosphatase 117 (45-117) U/L Total Creatine Kinase 26 (26-192) U/L Troponin I Less than 0.02 L (0.02-0.05) ng/mL B-Natriuretic Peptide (0-100) pg/mL Total Protein 5.6 L (6.4-8.2) g/dL Albumin 1.3 L (3.4-5.0) g/dL Lipase 28 L (73-393) U/L Urine Color (Yellw/Straw) Urine Clarity (Clear) Urine pH (5.0-8.5) Ur Specific [place] (1.002-1.035) Urine Protein (Neg-Trace) mg/dL Urine Glucose (UA) (Negative) mg/dL Urine Ketones (Negative) mg/dL Urine Occult Blood (Negative) Urine Nitrate (Negative) Urine Bilirubin (Negative) Urine Urobilinogen (Less than 2) mg/dL Ur Leukocyte Esterase (Negative) Urine RBC (0-3) /hpf Urine WBC (0-5) /hpf Ur Squamous Epith Cells (0-5) /hpf Urine Bacteria (None) /hpf Hyaline Casts (0-3) /lpf Urine Mucus (Occasional) /lpf Micro UA Comment Urine Culture Comments Blood Type Blood Type Recheck Antibody Screen MTS Gel Crossmatch 09/27/17 09/27/17 09/27/17 Range/Units 08:10 08:20 08:24 WBC (4.0-11.0) th/mm3 RBC (4.00-5.30) mil/mm3 Hgb (11.6-15.3) gm/dL Hct (35.0-46.0) % MCV (80.0-100.0) fL MCH (27.0-34.0) pg MCHC (32.0-36.0) % RDW (11.6-17.2) % Plt Count (150-450) th/mm3 MPV (7.0-11.0) fL Prelim Diff (Auto) WBC Differential Seg Neuts % (Manual) (16-70) % Band Neuts % (Manual) (0-6) % Lymphocytes % (Manual) (9-44) % Monocytes % (Manual) (0-8) % Eosinophils % (Manual) (0-4) % Abs Neuts (Manual) (1.8-7.7) th/mm3 Nucleated RBCs/100 WBC (0-0) /100 WBC Differential Comment Platelet Estimate (Normal) Platelet Morphology (Normal) Target Cells (None) PT (9.8-11.6) sec INR Ratio APTT (24.3-30.1) sec Sodium (136-145) meq/L Potassium (3.5-5.1) meq/L Chloride (98-107) meq/L Carbon Dioxide (21.0-32.0) meq/L Anion Gap (5-15) meq/L BUN (7-18) mg/dL Creatinine (0.50-1.00) mg/dL Estimated GFR (>89) mL/min POC Glucose 102 (68-110) mg/dl Random Glucose (74-106) mg/dL Lactic Acid (0.4-2.0) mmol/L Calcium (8.5-10.1) mg/dL Phosphorus (2.5-4.9) mg/dL Magnesium (1.5-2.5) mg/dL Total Bilirubin (0.2-1.0) mg/dL AST (15-37) U/L ALT (10-53) U/L Alkaline Phosphatase (45-117) U/L Total Creatine Kinase (26-192) U/L Troponin I (0.02-0.05) ng/mL B-Natriuretic Peptide 136 H (0-100) pg/mL Total Protein (6.4-8.2) g/dL Albumin (3.4-5.0) g/dL Lipase (73-393) U/L Urine Color [place] (Yellw/Straw) Urine Clarity Clear (Clear) Urine pH 5.0 (5.0-8.5) Ur Specific [place] 1.017 (1.002-1.035) Urine Protein 30 H (Neg-Trace) mg/dL Urine Glucose (UA) 50 (Negative) mg/dL Urine Ketones Negative (Negative) mg/dL Urine Occult Blood Negative (Negative) Urine Nitrate Negative (Negative) Urine Bilirubin Negative (Negative) Urine Urobilinogen Less than 2 (Less than 2) mg/dL Ur Leukocyte Esterase Negative (Negative) Urine RBC Less than 1 (0-3) /hpf Urine WBC 4 (0-5) /hpf Ur Squamous Epith Cells 1 (0-5) /hpf Urine Bacteria Few H (None) /hpf Hyaline Casts 6 (0-3) /lpf Urine Mucus Few H (Occasional) /lpf Micro UA Comment Cath-culture ind Urine Culture Comments Cath-cult indicated Blood Type Blood Type Recheck Antibody Screen MTS Gel Crossmatch 09/27/17 09/27/17 09/27/17 Range/Units 09:20 10:20 11:27 WBC (4.0-11.0) th/mm3 RBC (4.00-5.30) mil/mm3 Hgb (11.6-15.3) gm/dL Hct (35.0-46.0) % MCV (80.0-100.0) fL MCH (27.0-34.0) pg MCHC (32.0-36.0) % RDW (11.6-17.2) % Plt Count (150-450) th/mm3 MPV (7.0-11.0) fL Prelim Diff (Auto) WBC Differential Seg Neuts % (Manual) (16-70) % Band Neuts % (Manual) (0-6) % Lymphocytes % (Manual) (9-44) % Monocytes % (Manual) (0-8) % Eosinophils % (Manual) (0-4) % Abs Neuts (Manual) (1.8-7.7) th/mm3 Nucleated RBCs/100 WBC (0-0) /100 WBC Differential Comment Platelet Estimate (Normal) Platelet Morphology (Normal) Target Cells (None) PT (9.8-11.6) sec INR Ratio APTT (24.3-30.1) sec Sodium (136-145) meq/L Potassium (3.5-5.1) meq/L Chloride (98-107) meq/L Carbon Dioxide (21.0-32.0) meq/L Anion Gap (5-15) meq/L BUN (7-18) mg/dL Creatinine (0.50-1.00) mg/dL Estimated GFR (>89) mL/min POC Glucose (68-110) mg/dl Random Glucose (74-106) mg/dL Lactic Acid 3.1 H (0.4-2.0) mmol/L Calcium (8.5-10.1) mg/dL Phosphorus (2.5-4.9) mg/dL Magnesium (1.5-2.5) mg/dL Total Bilirubin (0.2-1.0) mg/dL AST (15-37) U/L ALT (10-53) U/L Alkaline Phosphatase (45-117) U/L Total Creatine Kinase (26-192) U/L Troponin I (0.02-0.05) ng/mL B-Natriuretic Peptide (0-100) pg/mL Total Protein (6.4-8.2) g/dL Albumin (3.4-5.0) g/dL Lipase (73-393) U/L Urine Color (Yellw/Straw) Urine Clarity (Clear) Urine pH (5.0-8.5) Ur Specific [place] (1.002-1.035) Urine Protein (Neg-Trace) mg/dL Urine Glucose (UA) (Negative) mg/dL Urine Ketones (Negative) mg/dL Urine Occult Blood (Negative) Urine Nitrate (Negative) Urine Bilirubin (Negative) Urine Urobilinogen (Less than 2) mg/dL Ur Leukocyte Esterase (Negative) Urine RBC (0-3) /hpf Urine WBC (0-5) /hpf Ur Squamous Epith Cells (0-5) /hpf Urine Bacteria (None) /hpf Hyaline Casts (0-3) /lpf Urine Mucus (Occasional) /lpf Micro UA Comment Urine Culture Comments Blood Type O Positive Blood Type Recheck Not needed Antibody Screen Negative MTS Gel Crossmatch See Detail Imaging Data Attestation: I personally reviewed and interpreted this imaging study as follows : Radiologist's impression: ITS Impressions Abdomen/Pelvis CT 09/27/17 08:10 CONCLUSION: 1. Mild hepatic steatosis. 2. Thickening of the colon secondary to lack of distention versus colitis. 3. Left lower lobe consolidation and/or atelectasis. There does appear to be a 1.4 cm cavitary area which makes consolidation likely. Chest X-Ray 09/27/17 08:10 CONCLUSION: Stable chest without evidence of acute cardiopulmonary process. Postsurgical changes in the lower cervical spine following anterior fusion. Head CT 09/27/17 08:10 CONCLUSION: No acute intracranial abnormality is seen. Venous Doppler Study 09/27/17 08:12 CONCLUSION: No DVT. Chest CTA 09/27/17 08:22 CONCLUSION: 1. No pulmonary embolus. 2. Consolidation or atelectasis at the left lower lobe. Discharge Plan Discharge Disposition Patient Disposition: 30 Still Patient Discharge Details Diagnosis: Sepsis, Neutropenia, Anemia, Pneumonia Physicians Team ED Provider: Mary Bonilla Primary Care Provider: Chaz Vivar Attending Provider: Maddy Jackson Status ED Status: Admitted Patient
--- NOTE | 2017-09-27 08:56 | XR ---
EXAM DATE: 09/27/2017 8:52 AM EDT AGE/SEX: 51 years / Female INDICATIONS: Short of breath and chest pain for two months. CLINICAL DATA: This is the patient's initial encounter. Patient reports that signs and symptoms have been present for 2 months and indicates a pain score of 5/10. MEDICAL/SURGICAL HISTORY: None. Fusion, cervical. COMPARISON: TLI, XR CHEST PA AND LAT, 12/06/2016. . FINDINGS: A single AP view of the chest demonstrates the lungs to be symmetrically aerated without evidence of mass, infiltrate or effusion. The cardiomediastinal contours are unremarkable. Osseous structures a re intact. CONCLUSION: Stable chest without evidence of acute cardiopulmonary process. Postsurgical changes in the lower cervical spine following anterior fusion. Electronically signed by: Sherwin Rhodes MD 09/27/2017 8:54 AM EDT
[2017-09-27 09:11] LABS: Mean Corpuscular HGB Conc 33.6 % (32.0-36.0); Mean Corpuscular Hemoglobin 25.4 pg (27.0-34.0); Mean Corpuscular Volume 75.5 fL (80.0-100.0); Mean Platelet Volume 6.6 fL (7.0-11.0); Platelet Count 162 th/mm3 (150-450); Red Blood Count 2.16 mil/mm3 (4.00-5.30); Red Cell Distribution Width 23.8 % (11.6-17.2); White Blood Count 0.9 th/mm3 (4.0-11.0)
[2017-09-27 09:16] LABS: Hematocrit 16.3 % (35.0-46.0); Hemoglobin 5.5 gm/dL (11.6-15.3)
[2017-09-27] MEDS ORDERED: Vancomycin Inj 1,000 MG in Sodium Chlor 0.9% Inj 250 ML IV.SIG STA (09:18)
[2017-09-27] MEDS ORDERED: Piperacil/Tazo 4.5 GM Premix 4.5 GM/100 ML BAG IV.SIG STA (09:18)
[2017-09-27 09:19] LABS: Bacteria,Urine Few /hpf; Bilirubin,Urine Negative (Negative); Color,Urine Amber (Yellw/Straw); Glucose,Urine (UA) 50 mg/dL (Negative); Hyaline Casts,Urine 6 /lpf (0-3); Leukocyte Esterase,Urine Negative (Negative); Mucus,Urine Few /lpf (Occasional); Nitrite,Urine Negative (Negative); Specific Gravity,Urine 1.017 (1.002-1.035); Squamous Epithelial Cell,Urine 1 /hpf (0-5)
[2017-09-27 09:20] LABS: Clarity,Urine Clear (Clear)
[2017-09-27 09:20] LABS: Activated Partial Thrombo Time 30.2 sec (24.3-30.1); INR 1.2 Ratio; Prothrombin Time 12.3 sec (9.8-11.6)
[2017-09-27 09:29] LABS: Albumin 1.3 g/dL (3.4-5.0); Anion Gap 16 meq/L (5-15); Aspartate Aminotransferase 12 U/L (15-37); Blood Urea Nitrogen 17 mg/dL (7-18); Calcium 8.2 mg/dL (8.5-10.1); Carbon Dioxide 20.1 meq/L (21.0-32.0); Chloride 100 meq/L (98-107); Glomerular Filtration Rate 44 mL/min (>89); Glucose,Random 98 mg/dL (74-106); Lipase 28 U/L (73-393); Magnesium 1.6 mg/dL (1.5-2.5); Sodium 136 meq/L (136-145)
[2017-09-27 09:30] LABS: Alanine Aminotransferase 29 U/L (10-53)
[2017-09-27 09:33] LABS: Alkaline Phosphatase 117 U/L (45-117); Phosphorus 2.5 mg/dL (2.5-4.9); Total Protein 5.6 g/dL (6.4-8.2)
[2017-09-27 09:39] LABS: Creatine Kinase 26 U/L (26-192)
[2017-09-27] MEDS ORDERED: Sodium Chlor 0.9% Inj 250 ML IV.SIG SCH (10:00)
--- NOTE | 2017-09-27 10:03 | US ---
EXAM DATE: 09/27/2017 9:30 AM EDT AGE/SEX: 51 years / Female INDICATIONS: Bilateral lower extremity edema. CLINICAL DATA: This is the patient's initial encounter. Patient reports that signs and symptoms have been present for 3 weeks and indicates a pain score of 8/10. MEDICAL/SURGICAL HISTORY: Hypothyroidism. Hypertension. Carpal tunnel syndrome. Hyperlipidemia. Renal disease. . Neck surgery. Total knee replacement. COMPARISON: TLI, US LEG VENOUS DOPPLER, LEFT, 09/20/2017. . TECHNIQUE: Venous ultrasound of both lower extremities was performed from the inguinal ligament to t he proximal calf. Real-time, color Doppler and spectral tracing, compression and augmentation techni ques were used. FINDINGS: Right Leg: Normal compression of the deep venous system from the inguinal region to the proximal aldair f. No echogenic clot is seen. Normal response of the venous system to augmentation and respiration. Left Leg: Normal compression of the deep venous system from the inguinal region to the proximal calf . No echogenic clot is seen. Normal response of the venous system to augmentation and respiration. Other: None. CONCLUSION: No DVT. Electronically signed by: Thor Arango MD 09/27/2017 10:01 AM EDT
[2017-09-27 10:05] LABS: Eosinophils 6 % (0-4); Lymphocytes 50 % (9-44); Monocytes 3 % (0-8); Tallied Nucleated RBC 6 (0-0)
[2017-09-27 10:08] LABS: Platelet Morphology Normal (Normal); Target Cells 2+
--- NOTE | 2017-09-27 10:21 | CT ---
EXAM DATE: 09/27/2017 10:10 AM EDT AGE/SEX: 51 years / Female INDICATIONS: Short of breath. CLINICAL DATA: This is the patient's initial encounter. Patient reports that signs and symptoms have been present for 1 week and indicates a pain score of 4/10. MEDICAL/SURGICAL HISTORY: Hypertension. renal disease None. RADIATION DOSE: 9.30 CTDI (mGy) COMPARISON: No prior exams available for comparison. TECHNIQUE: Volumetric scanning was performed using a multi-row detector CT scanner during bolus infu keshawn of 96 ml Omnipaque 350 (iohexol) nonionic water-soluble contrast as a cumulative dose for multi ple exams. The data was post processed with a variety of visualization algorithms including full volu me maximum intensity projection and sliding thin slab reformation. Using automated exposure control a nd adjustment of the mA and/or kV according to patient size, radiation dose was kept as low as reason ably achievable to obtain optimal diagnostic quality images. DICOM format image data is available el ectronically for review and comparison. FINDINGS: Pulmonary Arteries: No filling defects are seen in the pulmonary arteries out to the subsegmental ve ssels. The left and right pulmonary arteries are normal in diameter. Lung: There is increased density at the posterior lateral left lower lobe. Effusion: None. Mediastinum: No evidence of mediastinal or hilar adenopathy. Other: The axilla is unremarkable. The patient is to have a CT of the abdomen and pelvis to follow. CONCLUSION: 1. No pulmonary embolus. 2. Consolidation or atelectasis at the left lower lobe. Electronically signed by: Thor Arango MD 09/27/2017 10:20 AM EDT
--- NOTE | 2017-09-27 10:28 | CT ---
EXAM DATE: 09/27/2017 10:12 AM EDT AGE/SEX: 51 years / Female INDICATIONS: Short of breath, abdomen pain with diarrhea. CLINICAL DATA: This is the patient's initial encounter. Patient reports that signs and symptoms have been present for 1 week and indicates a pain score of 4/10. MEDICAL/SURGICAL HISTORY: Hypertension. renal disease None. ORAL CONTRAST: No oral contrast ingested. RADIATION DOSE: 18.86 CTDI (mGy) COMPARISON: No prior exams available for comparison. TECHNIQUE: Multiple contiguous axial images were obtained through the abdomen and pelvis following b olus infusion of 96 ml Omnipaque 350 (iohexol) nonionic water-soluble contrast as a cumulative dose for multiple exams. No oral contrast ingested. Using automated exposure control and adjustment of t he mA and/or kV according to patient size, radiation dose was kept as low as reasonably achievable to obtain optimal diagnostic quality images. DICOM format image data is available electronically for r eview and comparison. FINDINGS: Lower Lungs: There is increase in the posterior lateral left lower lobe including a 1.4 cm cystic/cav itary area. Liver: The liver demonstrates decreased attenuation. No focal hepatic lesions are seen. Spleen: Homogeneous density without enlargement. Pancreas: Unremarkable without mass or calcification. Kidneys: Normal in size and shape. No evidence of mass or hydronephrosis. Adrenal Glands: Unremarkable. Aorta: The aorta and proximal iliac vessels are grossly unremarkable without aneurysmal dilation. Bowel/Mesentery: There are bowel nedra in the stomach. There is distention of the distal esophagus . The colon appears thickened from the ascending colon to the sigmoid region. This may be partially s econdary to lack of distention versus colitis. Significant surrounding inflammatory change is not see n. Abdominal Wall: Intact. Retroperitoneum: No evidence of adenopathy in the retrocrural, para-aortic, or deep pelvic regions. Bladder: There is a Hopper catheter in the urinary bladder. The small amount of air within the urinar y bladder. Reproductive Organs: No abnormal masses or calcifications seen. Inguinal: The inguinal region is unremarkable without evidence of adenopathy. Bony Structures: There is degenerative change in the spine. CONCLUSION: 1. Mild hepatic steatosis. 2. Thickening of the colon secondary to lack of distention versus colitis. 3. Left lower lobe consolidation and/or atelectasis. There does appear to be a 1.4 cm cavitary area which makes consolidation likely. Electronically signed by: Thor Arango MD 09/27/2017 10:26 AM EDT
--- NOTE | 2017-09-27 10:29 | CT ---
EXAM DATE: 09/27/2017 9:57 AM EDT AGE/SEX: 51 years / Female INDICATIONS: Altered mental status. CLINICAL DATA: This is the patient's initial encounter. Patient reports that signs and symptoms have been present for 1 day and indicates a pain score of 0/10. MEDICAL/SURGICAL HISTORY: Hypertension. renal disease None. RADIATION DOSE: 56.35 CTDI (mGy) COMPARISON: No prior exams available for comparison. TECHNIQUE: CT of the head without contrast. Using automated exposure control and adjustment of the mA and/or kV according to patient size, radiation dose was kept as low as reasonably achievable to ob tain optimal diagnostic quality images. DICOM format image data is available electronically for revi ew and comparison. FINDINGS: Cerebrum: The ventricles are normal for age. No evidence of midline shift, mass lesion, hemorrhage or acute infarction. No extraaxial fluid collections are seen. Posterior Fossa: The cerebellum and brainstem are intact. The 4th ventricle is midline. The cerebe llopontine angle is unremarkable. Extracranial: The visualized portion of the orbits is intact. Skull: The calvaria is intact. No evidence of skull fracture. CONCLUSION: No acute intracranial abnormality is seen. Electronically signed by: Thor Arango MD 09/27/2017 10:27 AM EDT
--- NOTE | 2017-09-27 12:44 | P.HPFP ---
History of Present Illness Primary Care Physician: Chaz Vivar MD, R2 <Maddy Jackson M - 09/28/17 13:07> Chaz Vivar MD, R2 <Nikole Washington - 09/27/17 12:44> Chief Complaint: Shortness of breath <Nikole Washington - 09/27/17 12:44> History of Present Illness: Patient is a 51-year-old female with significant past medical history of COPD, schizophrenia, rheumatoid arthritis and left total knee replacement (07/26/17) who presents to the ED with complaints of worsening shortness of breath and mental status accompanied with symptoms of diarrhea (3 days, non-bloody) and decreased p.o. intake (5 days). at bedside contributed to history. Patient is poor historian. For the past 1 week patient reports progressive shortness of breath with exertion that was significantly worse this morning. reports that patient requested to be taken to the emergency room further evaluation or shortness of breath. Denies any alleviating factors of her shortness of breath. She also reports intermittent midsternal chest pain that radiates to the left side of her neck over the last 5 days. Currently does not have chest pain. Endorses weakness, dysuria, headaches, subjective fevers "felt hot this morning bad", diaphoresis, chills and BL LE leg pain. She says she has not eaten anything in the last 5 days due to throat pain and loss of taste. However, she has been able to drink small amounts of liquids such as broth, water, and Gatorade. Anything heavier than soup broth made her feel nauseous and caused her to vomit. Patient reports the diarrhea has been accompanied by abdominal pain. Patients also reports worsening memory loss and psychotic behavior since second week at the rehab center after her left knee surgery. She follows with psychiatrist "Oni" for the past 7-9 years on Cymbalta and duloxetine. She has had hallucination of seeing someone at home that she believes is after her. Denies auditory hallucination or having this person talk to her. Denies suicidal ideation but endorses homicidal ideation for the person who is "out to get her". Over the past week she has developed a new rash on abdomen and groin area. Denies palpitations, increased urinary frequency. She is alert and oriented x1 (to self). Of note: Patient was discharged from rehab on August 23. After rehab she was able to ambulate on her own but for the past 3 wks has gotten weaker requiring walker to walk and most recently she has not even wanted to get out of bed. She also had Left leg swelling and large amount of purulent pus draining from the incision (purulent drainage that filled up towels and had no odor). She has been treated with po antibiotics TIB for the past week by Ortho due to infection of Left leg with improvement in Left lower leg swelling and drainage. (They do not remember the type of antibiotic). She completed a week of antibiotic treatment with last day scheduled for today however she has not taken any medications today. <Nikole Washington - 09/27/17 15:05> - Diagnosis (1) Sepsis (2) Cellulitis of knee, left (3) Prosthetic joint infection (4) Neutropenia (5) Anemia (6) Pneumonia (7) Diarrhea (8) Schizophrenia (9) Hypertension (10) Elevated creatine kinase (11) Nutrition, metabolism, and development symptoms <Maddy Jackson - 09/28/17 13:07> (1) Sepsis (2) Cellulitis of knee, left (3) Prosthetic joint infection (4) Neutropenia (5) Anemia (6) Pneumonia (7) Diarrhea (8) Schizophrenia (9) Hypertension (10) Elevated creatine kinase (11) Nutrition, metabolism, and development symptoms <Nikole Washington - 09/27/17 19:00> Inpatient Certification: I certify that the inpatient services were ordered in accordance with Medicare regulations governing the order. This includes certification that hospital inpatient services are reasonable and necessary and in the case of services not specified as inpatient-only under 42 CFR 419.22(n), that they are appropriately provided as inpatient services in accordance to with the 2-midnight benchmark under 43 CFR 412.3(e) <Maddy Jackson - 09/28/17 13:07> I certify that the inpatient services were ordered in accordance with Medicare regulations governing the order. This includes certification that hospital inpatient services are reasonable and necessary and in the case of services not specified as inpatient-only under 42 CFR 419.22(n), that they are appropriately provided as inpatient services in accordance to with the 2-midnight benchmark under 43 CFR 412.3(e) <Nikole Washington 09/27/17 12:44> Review of Systems Constitutional: Reports anorexia, Reports chills, Reports fatigue, Reports fever (s), Reports headache(s), Reports lack of energy, Reports malaise, Reports weakness <Nikole Washington 09/27/17 15:05> Eyes: Denies blurry vision, Denies change in vision <Nikole Washington 15:05> Ears, Nose, Mouth, and Throat: Reports difficulty swallowing, Reports dizziness , Reports dry mouth, Reports neck pain, Reports pain with swallowing, Reports sore throat, Denies abnormal hearing <Nikole Washington 09/27/17 15:05> Cardiovascular: Reports chest pain, Reports shortness of breath, Reports shortness of breath with activity, Denies shortness of breath when lying down <Nikole Washington 09/27/17 15:05> Respiratory: Reports shortness of breath, Denies change in phlegm color, Denies chest congestion, Denies cough, Denies coughing up blood <Nikole Washington 15:05> Gastrointestinal: Reports abdominal pain, Reports change in stools, Reports nausea, Reports vomiting, Denies heartburn <Nikole Washington 09/27/17 15:05> Genitourinary: Reports painful urination, Denies urinary incontinence, Denies urinary urgency <Nikole Washington 09/27/17 15:05> Musculoskeletal: Reports joint pain, Reports limited joint movement <Nikole Washington 09/27/17 15:05> Skin/Breast: Reports rash, Denies bleeding lesions, Denies breast skin changes <Nikole Washington 09/27/17 15:05> Neurologic: Reports behavioral changes, Reports confusion, Reports memory loss <Nikole Washington 09/27/17 15:05> Psychiatric: Reports behavioral changes, Reports change in appetite, Reports confusion, Reports memory loss, Reports seeing things others do not see, Reports thoughts of hurting/killing others, Denies hearing things others do not hear, Denies tactile hallucinations, Denies thoughts of hurting/killing yourself <Nikole Washington - 09/27/17 15:05> PMFSH - History History Provided By: Family Member (reviewed and confirmed history again at 9 am ) <Nikole Washington - 09/27/17 12:44> - Medical History Medical History: Medical History (Last Updated 09/27/17 @ 19:01 by Nikole Washington MD, R1) Carpal tunnel syndrome on both sides Chronic neck pain H/O: hysterectomy High cholesterol Hypertension Hyperthyroidism Osteoarthritis Post hysterectomy menopause Renal disease Schizophrenia <Maddy Jackson - 09/28/17 13:07> Medical History (Last Updated 09/27/17 @ 19:01 by Nikole Washington MD, R1) Carpal tunnel syndrome on both sides Chronic neck pain H/O: hysterectomy High cholesterol Hypertension Hyperthyroidism Osteoarthritis Post hysterectomy menopause Renal disease Schizophrenia <Nikole Washington - 09/27/17 19:47> - Surgical History Surgical History: Surgical History (Last Updated 09/27/17 @ 18:21 by David Hudson MD) History of neck surgery History of total knee replacement Previous section <Maddy Jackson - 09/28/17 13:07> Surgical History (Last Updated 09/27/17 @ 18:21 by David Hudson MD) History of neck surgery History of total knee replacement Previous section <Nikole Washington 09/27/17 19:47> - Tobacco History Second Hand Smoke Exposure: Yes <Nikole Washington 09/27/17 12:44> Smoking Status: Never smoker <Nikole Washington 09/27/17 12:44> - Alcohol History How Often Do You Have a Drink Containing Alcohol: Never <Nikole Washington 03/05 12:44> - Substance Use History Substance History: No History of Abuse <Nikole Washington 09/27/17 12:44> - Travel History Recent Travel in the [place] Within the Last 8 Weeks: No <Nikole Washington 12:44> Recent Travel Out of the Country Within the Last 8 Weeks: No <Nikole Washington 09/27/17 12:44> - Immunization History Tetanus Immunization: Unsure <Nikole Washington 09/27/17 12:44> Hx Influenza Vaccine This Season: Yes <Nikole Washington D - 09/27/17 12:44> Medications and Allergies Allergies Allergy/AdvReac Type Severity Reaction Status Date / Time amoxicillin Allergy Swelling Verified 09/27/17 17:54 <Maddy Jackson - 09/28/17 13:07> Home Medications Medication Instructions Recorded Confirmed Type aripiprazole 30 mg PO DAILY 09/27/17 09/27/17 History benztropine 2 mg PO BID 09/27/17 09/27/17 History buspirone 30 mg PO TID 09/27/17 09/27/17 History diclofenac sodium 75 mg PO BID 09/27/17 09/27/17 History diltiazem HCl 60 mg PO QID 09/27/17 09/27/17 History duloxetine 60 mg PO DAILY 09/27/17 09/27/17 History leflunomide 20 mg PO DAILY 09/27/17 09/27/17 History lovastatin 40 mg PO DAILY 09/27/17 09/27/17 History methotrexate 20 mg/m2 PO QWEEK 09/27/17 09/27/17 History omeprazole 20 mg PO DAILY 09/27/17 09/27/17 History tizanidine 4 mg PO TID PRN 09/27/17 09/27/17 History trazodone 100 mg PO DAILY 09/27/17 09/27/17 History <Maddy Jackson - 09/28/17 13:07> Active Medications: Active Medications Acetaminophen (Tylenol) 650 mg PO Q4H PRN PRN Reason: Pain 1-10 Last Admin: 09/28/17 05:10 Dose: 650 mg Al Hydroxide/Mg Hydroxide (Milk Of Magnesia Liq) 30 ml PO Q12H PRN PRN Reason: Mild Constipation Albuterol (Duoneb Neb (Prn)) 1 ampul NEB Q6HR NEB PRN PRN Reason: SHORTNESS OF BREATH Aripiprazole (Abilify) 30 mg PO DAILY [facility] Last Admin: 09/28/17 12:16 Dose: 30 mg Bisacodyl (Dulcolax Supp) 10 mg RECTAL DAILY PRN PRN Reason: SEVERE CONSITIPATION Buspirone HCl (Buspar) 15 mg PO TID [facility] Last Admin: 09/28/17 12:15 Dose: 15 mg Chlorhexidine Gluconate (Chlorhexidine 2% Cloth) 3 pack TOPICAL DAILY@0400 [facility] Stop: 10/03/17 03:59 Last Admin: 09/28/17 05:10 Dose: 3 pack Chlorhexidine Gluconate (Chlorhexidine 2% Cloth) 3 pack TOPICAL DAILY@0400 PRN PRN Reason: Extra cloth needed Stop: 10/03/17 03:59 Cod Liver Oil/Zinc Oxide (Desitin 40% Oint) 1 applicatio TOPICAL PRN PRN PRN Reason: RASH Diltiazem HCl (Cardizem) 60 mg PO QID [facility] Last Admin: 09/28/17 12:16 Dose: 60 mg Duloxetine HCl (Cymbalta) 60 mg PO DAILY [facility] Last Admin: 09/28/17 08:11 Dose: 60 mg Folic Acid (Folvite Inj) 1 mg IM DAILY [facility] Hydrophilic Ointment (Vaseline Oint) 1 applicatio TOPICAL PRN PRN PRN Reason: skin irritation Last Admin: 09/27/17 23:40 Dose: 1 applicatio Sodium Chloride (Ns Inj) 1,000 mls @ 100 mls/hr IV.CONT .Q10H [facility] Last Admin: 09/28/17 05:07 Dose: 140 mls/hr Cefepime HCl 2,000 mg/ Sodium (Chloride) 100 mls @ 200 mls/hr IV.SIG Q12H [facility] Last Infusion: 09/28/17 08:39 Dose: Infused Fluconazole (Diflucan 400 Mg Premix Bag) 200 mls @ 100 mls/hr IV.SIG Q24H [facility] Last Infusion: 09/28/17 04:27 Dose: Infused Magnesium Sulfate Inj 2 gm/ (Sodium Chloride) 100 mls @ 50 mls/hr IV.SIG UNSCH PRN PRN Reason: For Magnesium 1.2 - 1.6 mg/dL Potassium Chloride (Kcl 40 Meq Premix Inj) 40 meq in 100 mls @ 25 mls/hr IV.SIG Q2H PRN PRN Reason: For Potassium 2.8 - 3.2 mEq/L Potassium Chloride (Kcl 20 Meq Premix Inj) 20 meq in 100 mls @ 50 mls/hr IV.SIG Q2H PRN PRN Reason: For Potassium 3.3 - 3.5 mEq/L Potassium Chloride (Kcl 40 Meq Premix Inj) 40 meq in 100 mls @ 25 mls/hr IV.SIG UNSCH PRN PRN Reason: For Potassium 3.3 - 3.5 mEq/L Potassium Chloride (Kcl 20 Meq Premix Inj) 20 meq in 100 mls @ 50 mls/hr IV.SIG Q2H PRN PRN Reason: For Potassium 2.8 - 3.2 mEq/L Last Admin: 09/28/17 12:15 Dose: 50 mls/hr Potassium Phosphate 30 mmol/ (Sodium Chloride) 260 mls @ 42 mls/hr IV.SIG UNSCH PRN PRN Reason: SEE LABEL COMMENTS Magnesium Sulfate Inj 4 gm/ (Sodium Chloride) 100 mls @ 50 mls/hr IV.SIG UNSCH PRN PRN Reason: For Magnesium 0.9 - 1.1 mg/dL Sodium Phosphate 30 mmol/ (Sodium Chloride) 260 mls @ 42 mls/hr IV.SIG UNSCH PRN PRN Reason: For Phosphorus < 2.5 mg/dL Pharmacy Profile Note (Vancomycin Consult Pharmacy) 0 mls @ 0 mls/hr OTHER UNSCH [facility] Vancomycin HCl 800 mg/ Sodium (Chloride) 250 mls @ 250 mls/hr IV.SIG Q18H [facility] Lactulose (Lactulose Liq) 30 ml PO DAILY PRN PRN Reason: SEVERE CONSITIPATION Magnesium Oxide (Mag-Ox) 800 mg PO UNSCH PRN PRN Reason: For Magnesium 1.2 - 1.6 mg/dL Miscellaneous Information ([facility] Ordered Lab Info) 0 each OTHER ONCE ONE Stop: 09/30/17 05:46 Nystatin (Mycostatin Cream) 1 applicatio TOPICAL QID [facility] Nystatin (Mycostatin Liq) 500,000 ml SWISH-SWAL QID [facility] Ondansetron HCl (Zofran Odt) 4 mg SL Q6H PRN PRN Reason: NAUSEA OR VOMITING Last Admin: 09/27/17 20:54 Dose: 4 mg Pantoprazole Sodium (Protonix) 20 mg PO DAILY [facility] Last Admin: 09/28/17 08:11 Dose: 20 mg Potassium Bicarb/Potassium Chloride (K-Lyte Cl Eff) 50 meq PO UNSCH PRN PRN Reason: For Potassium 3.3 - 3.5 mEq/L Potassium Phosphate (K-Phos Original) 2,000 mg PO Q4H PRN PRN Reason: Phosphorus Less Than 2.5 mg/dL Potassium Phosphate (K-Phos Original) 2,000 mg PO UNSCH PRN PRN Reason: SEE LABEL COMMENTS Pravastatin Sodium (Pravachol) 40 mg PO DAILY [facility] Last Admin: 09/28/17 08:11 Dose: 40 mg Senna/Docusate Sodium (Kaykay-Colace) 1 tab PO BID PRN PRN Reason: CONSTIPATION Last Admin: 09/27/17 20:54 Dose: 1 tab Sennosides (Senokot) 17.2 mg PO Q12H PRN PRN Reason: Moderate Constipation Last Admin: 09/27/17 20:55 Dose: 17.2 mg Trazodone HCl (Desyrel) 100 mg PO DAILY [facility] Last Admin: 09/28/17 08:11 Dose: 100 mg <Maddy Jackson - 09/28/17 13:07> Active Medications Sodium Chloride (Ns Inj) 250 mls @ 15 mls/hr IV.SIG ONCE [facility] Stop: 09/28/17 02:39 <Nikole Washington - 09/27/17 12:44> Exam Vital signs: Vital Signs 09/27/17 14:07 09/27/17 14:35 09/27/17 15:42 Temperature 98.4 F 98.9 F Pulse Rate 113 H 108 H Respiratory Rate 19 17 Blood Pressure 165/76 H 153/66 H Pulse Oximetry 99 99 98 09/27/17 15:50 09/27/17 18:08 09/27/17 18:55 Temperature 98.8 F 98.5 F 98.6 F Pulse Rate 124 H 107 H 104 H Respiratory Rate 18 18 20 Blood Pressure 156/70 H 155/70 H 155/70 H Pulse Oximetry 100 96 09/27/17 19:18 09/27/17 20:00 09/27/17 20:15 Temperature 98.5 F 98.5 F Pulse Rate 110 H 113 H Respiratory Rate 18 16 Blood Pressure 155/70 H 144/73 H Pulse Oximetry 95 100 100 09/28/17 00:00 09/28/17 04:00 09/28/17 05:48 Temperature 98.5 F 98.9 F Pulse Rate 109 H 113 H 102 H Respiratory Rate 20 20 18 Blood Pressure 160/72 H 152/71 H Pulse Oximetry 100 100 09/28/17 08:00 09/28/17 10:00 09/28/17 12:00 Temperature 98 F 98.4 F Pulse Rate 102 H 106 H 108 H Respiratory Rate 18 16 Blood Pressure 155/72 H 149/77 H Pulse Oximetry 100 98 Intake & Output 09/27/17 09/28/17 09/28/17 18:59 06:59 18:59 Intake Total 400 / 400 4769 / 4769 300 / 300 Output Total 450 / 450 Balance 400 / 400 4319 / 4319 300 / 300 Weight 100 kg 113 kg Intake: IV 3069 / 3069 300 / 300 NS Inj 1,000 ML @ 140 mls/hr IV 1780 / 1780 .CONT .Q7H9M [facility] Rx#:[id number] Maxipime Inj 2,000 MG In NS Inj 100 / 100 100 / 100 100 ML @ 200 mls/hr IV.SIG Q12H [facility] Rx#:[id number] Diflucan 400 mg Premix Bag 200 200 / 200 ML @ 100 mls/hr IV.SIG Q24H [facility] Rx#:[id number] KCl 20 mEq Premix Inj 20 meq In 200 / 200 100 ml @ 50 mls/hr IV.SIG Q2H [facility] Rx#:[id number] Vancomycin Inj 1,500 MG In NS 989 / 989 Inj 500 ML @ 250 mls/hr IV.SIG Q24H [facility] Rx#:[id number] Oral 1200 / 1200 Intake (Blood Product) Amt 400 / 400 500 / 500 Rbc As-3 Leukoreduced Unit 400 / 400 [id number] Rbc As-3 Leukoreduced Unit 400 / 400 [id number] Rbc As-3 Leukoreduced Unit 0 / 0 100 / 100 [id number] Output: Urine Amount (Catheter) 450 / 450 Indwelling Urethral Catheter 450 / 450 Other: Date of Last Bowel Movement 09/26/17 09/28/17 09/28/17 # Bowel Movements 1 <Maddy Jackson M - 09/28/17 13:07> Vital Signs 09/27/17 07:58 09/27/17 08:23 09/27/17 09:40 Temperature 98.2 F Pulse Rate 110 H 107 H Respiratory Rate 18 16 Blood Pressure 95/47 L 108/59 L Pulse Oximetry 94 L 96 95 09/27/17 11:10 Temperature Pulse Rate 110 H Respiratory Rate 18 Blood Pressure 122/57 L Pulse Oximetry Intake & Output 09/26/17 09/27/17 09/27/17 18:59 06:59 18:59 Weight 100 kg <Nikole Washington 09/27/17 12:44> - Constitutional no acute distress, morbidly obese, cooperative <Nikole Washington 09/27/17 12: 44> - Routine HEENT Exam Head: Present: normocephalic, atraumatic <Nikole Washington 09/27/17 12:44> Eye: Present: EOMI, PERRL <Nikole Washington 09/27/17 12:44> ENT: Present: mucous membranes dry <Nikole Washington 09/27/17 19:47> - Detailed ENT Exam Oropharynx: Present: white patches <Nikole Washington 09/27/17 12:44> Oral mucosa: Present: dry, lesions <Nikole Washington 09/27/17 12:44> Tongue: Present: white patches <Nikole Washington 09/27/17 12:44> Comments: Patient with white patches on tongue and bucosal surface which was readily scraped off with a tongue depressor. <Nikole Washington 09/27/17 12:44> - Routine Neck Exam Present: supple, full ROM. Absent: JVD, lymphadenopathy, tenderness, swelling <Nikole Washington 09/27/17 19:47> - Routine Chest/Breast/Axilla Exam Chest wall: Absent: tenderness, mass <Nikole Washington 09/27/17 12:44> Comments: No rash under breast bilaterally. <Nikole Washington 09/27/17 12:44> - Routine Respiratory Exam Present: crackles (Slight crackles at the lower bases bilaterally). Absent: accessory muscle use <Nikole Washington 09/27/17 19:47> - Routine Cardiovascular Exam Present: RRR, S1, S2. Absent: murmur, gallop, rubs <Nikole Washington 19:47> - Routine Abdominal Exam Present: soft, tenderness (Epigastric area and right lower quadrant). Absent: normoactive bowel sounds (Hypoactive bowel sounds), rebound, guarding, mass < Nikole Washington 09/27/17 19:47> - Routine Extremities Exam Present: edema (+2 of right lower extremity. +3 left lower extremity extending to mid thigh. Small open wound along incision scar of left knee with minimal drainage of clear fluid. Wound culture obtained. ), pulses intact, calf tenderness (Bilaterally), tenderness (Tenderness to palpation along left lower extremity and right calf), joint swelling (Left knee). Absent: full ROM ( Patient able to move left leg, and2/5 strength on right leg. Normal dorsi and plantar flexion. Normal sensation.) <Nikole Washington 09/27/17 19:47> Comments: Dry skin on anterior portion of left limon that is subsequently draining clear fluid from just below knee <Nikole Washington 09/27/17 12:44> - Detailed Lower Extremity Exam Upper leg: Left: erythema (Extending to left mid thigh), Bilateral: swelling, tenderness, wound <Nikole Washington 09/27/17 19:47> Knee: Left wound (Small open wound along the incision of left knee replacement) <Nikole Washington 09/27/17 19:47> - Routine Back/Spine/Pelvis Exam Back/Spine: Absent: CVA tenderness, vertebral tenderness, scoliosis, kyphosis, erythema (Back inspection done no decubitus ulcers noted) <Nikole Washington 09/27/17 19:47> Pelvis: Absent: buttock ecchymosis, buttock tenderness, sacral swelling, sacral tenderness, coccyx swelling, coccyx tenderness (No breaks in skin along back) <Nikole Washington 09/27/17 19:47> - Routine Skin Exam Present: erythema, rash (Rash along pannus and genital area, no bleeding noted) . Absent: intact <Nikole Washington 09/27/17 19:47> Comments: Weeping would on left limon just below left knee. Draining clear fluid, sent for culture. <Nikole Washington 09/27/17 12:44> - Routine Neurological Exam Present: CN II-XII intact, altered mental status, normal tone, normal speech. Absent: oriented X3, sensory deficit, motor deficit, nystagmus, tremors < Nikole Washington Debbie - 09/27/17 19:47> Oriented only to self <Nikole Washington Debbie - 09/27/17 12:44> - Routine Psychiatric Exam Present: homicidal ideation, visual hallucinations, cooperative. Absent: suicidal ideation, auditory hallucinations, tactile hallucinations <Jimmie Nikole Debbie - 09/27/17 19:47> Comments: Patient mentions seeing people out of the corner of her eye who are "out to get her" <Nikole Washington Debbie - 09/27/17 12:44> Results - Labs Result diagrams: 09/28/17 05:14 09/28/17 05:14 <Maddy Jackson - 09/28/17 13:07> Abnormal lab results 09/27/17 09/27/17 09/27/17 Range/Units 08:10 11:27 15:00 WBC (4.0-11.0) th/mm3 RBC (4.00-5.30) mil/mm3 Hgb (11.6-15.3) gm/dL Hct (35.0-46.0) % RDW (11.6-17.2) % Plt Count (150-450) th/mm3 Seg Neuts % (Manual) (16-70) % Band Neuts % (Manual) (0-6) % Lymphocytes % (Manual) (9-44) % Monocytes % (Manual) (0-8) % Eosinophils % (Manual) (0-4) % Abs Neuts (Manual) (1.8-7.7) th/mm3 Nucleated RBCs/100 WBC (0-0) /100 WBC Dohle Bodies (None) Platelet Estimate (Normal) Target Cells (None) Ovalocytes (None) ESR Greater than 140 H (0-30) mm/hr Potassium (3.5-5.1) meq/L Chloride (98-107) meq/L Carbon Dioxide (21.0-32.0) meq/L Calcium (8.5-10.1) mg/dL Prot Corrected Calcium (8.5-10.1) mg/dL Iron 9 L (50-170) mcg/dL TIBC 168 L (250-450) mcg/dL % Saturation 5.4 L (20-50) % Ferritin (8-252) ng/mL Troponin I (0.02-0.05) ng/mL C-Reactive Protein (0.00-0.30) mg/dL Total Protein (6.4-8.2) g/dL Albumin (3.4-5.0) g/dL Vitamin B12 (193-986) pg/mL MTS Gel Crossmatch See Detail 09/27/17 09/28/17 09/28/17 Range/Units 15:10 05:14 05:14 WBC 1.6 L D (4.0-11.0) th/mm3 RBC 3.20 L (4.00-5.30) mil/mm3 Hgb 8.8 L D (11.6-15.3) gm/dL Hct 25.8 L (35.0-46.0) % RDW 21.0 H D (11.6-17.2) % Plt Count 94 L D (150-450) th/mm3 Seg Neuts % (Manual) 14 L (16-70) % Band Neuts % (Manual) 12 H (0-6) % Lymphocytes % (Manual) 50 H (9-44) % Monocytes % (Manual) 14 H (0-8) % Eosinophils % (Manual) 9 H (0-4) % Abs Neuts (Manual) 0.4 L* (1.8-7.7) th/mm3 Nucleated RBCs/100 WBC 8 H (0-0) /100 WBC Dohle Bodies Present H (None) Platelet Estimate Low L (Normal) Target Cells 2+ H (None) Ovalocytes 1+ H (None) ESR (0-30) mm/hr Potassium 2.8 L* (3.5-5.1) meq/L Chloride 109 H D (98-107) meq/L Carbon Dioxide 20.4 L (21.0-32.0) meq/L Calcium 7.1 L* D (8.5-10.1) mg/dL Prot Corrected Calcium 8.1 L (8.5-10.1) mg/dL Iron (50-170) mcg/dL TIBC (250-450) mcg/dL % Saturation (20-50) % Ferritin 1768 H (8-252) ng/mL Troponin I Less than 0.02 L (0.02-0.05) ng/mL C-Reactive Protein (0.00-0.30) mg/dL Total Protein 5.2 L (6.4-8.2) g/dL Albumin 1.2 L (3.4-5.0) g/dL Vitamin B12 Greater than 2000 H (193-986) pg/mL MTS Gel Crossmatch 09/28/17 Range/Units 05:15 WBC (4.0-11.0) th/mm3 RBC (4.00-5.30) mil/mm3 Hgb (11.6-15.3) gm/dL Hct (35.0-46.0) % RDW (11.6-17.2) % Plt Count (150-450) th/mm3 Seg Neuts % (Manual) (16-70) % Band Neuts % (Manual) (0-6) % Lymphocytes % (Manual) (9-44) % Monocytes % (Manual) (0-8) % Eosinophils % (Manual) (0-4) % Abs Neuts (Manual) (1.8-7.7) th/mm3 Nucleated RBCs/100 WBC (0-0) /100 WBC Dohle Bodies (None) Platelet Estimate (Normal) Target Cells (None) Ovalocytes (None) ESR (0-30) mm/hr Potassium (3.5-5.1) meq/L Chloride (98-107) meq/L Carbon Dioxide (21.0-32.0) meq/L Calcium (8.5-10.1) mg/dL Prot Corrected Calcium (8.5-10.1) mg/dL Iron (50-170) mcg/dL TIBC (250-450) mcg/dL % Saturation (20-50) % Ferritin (8-252) ng/mL Troponin I (0.02-0.05) ng/mL C-Reactive Protein 31.00 H (0.00-0.30) mg/dL Total Protein (6.4-8.2) g/dL Albumin (3.4-5.0) g/dL Vitamin B12 (193-986) pg/mL MTS Gel Crossmatch Short CBC 09/28/17 Range/Units 05:14 WBC 1.6 L D (4.0-11.0) th/mm3 Hgb 8.8 L D (11.6-15.3) gm/dL Hct 25.8 L (35.0-46.0) % Plt Count 94 L D (150-450) th/mm3 [facility] 09/28/17 05:14 Sodium 143 Potassium 2.8 L* Chloride 109 H D Carbon Dioxide 20.4 L BUN 14 Creatinine 0.77 Calcium 7.1 L* D Cardiac Enzymes 09/27/17 09/27/17 Range/Units 15:00 15:10 Troponin I Cancelled Less than 0.02 L Liver Function 09/28/17 Range/Units 05:14 Total Bilirubin 0.9 (0.2-1.0) mg/dL AST 18 (15-37) U/L ALT 23 (10-53) U/L Alkaline Phosphatase 114 (45-117) U/L Albumin 1.2 L (3.4-5.0) g/dL <Maddy Jackson - 09/28/17 13:07> Abnormal lab results 09/27/17 09/27/17 09/27/17 Range/Units 08:10 08:10 08:10 WBC 0.9 L (4.0-11.0) th/mm3 RBC 2.16 L (4.00-5.30) mil/mm3 Hgb 5.5 L* (11.6-15.3) gm/dL Hct 16.3 L* (35.0-46.0) % MCV 75.5 L (80.0-100.0) fL MCH 25.4 L (27.0-34.0) pg RDW 23.8 H (11.6-17.2) % MPV 6.6 L (7.0-11.0) fL Lymphocytes % (Manual) 50 H (9-44) % Eosinophils % (Manual) 6 H (0-4) % Abs Neuts (Manual) 0.4 L* (1.8-7.7) th/mm3 Nucleated RBCs/100 WBC 6 H (0-0) /100 WBC Platelet Estimate Low L (Normal) Target Cells 2+ H (None) PT 12.3 H (9.8-11.6) sec APTT 30.2 H (24.3-30.1) sec Potassium 3.0 L (3.5-5.1) meq/L Carbon Dioxide 20.1 L (21.0-32.0) meq/L Anion Gap 16 H (5-15) meq/L Creatinine 1.50 H (0.50-1.00) mg/dL Estimated GFR 44 L (>89) mL/min Lactic Acid (0.4-2.0) mmol/L Calcium 8.2 L (8.5-10.1) mg/dL AST 12 L (15-37) U/L Troponin I Less than 0.02 L (0.02-0.05) ng/mL B-Natriuretic Peptide (0-100) pg/mL Total Protein 5.6 L (6.4-8.2) g/dL Albumin 1.3 L (3.4-5.0) g/dL Lipase 28 L (73-393) U/L Urine Protein (Neg-Trace) mg/dL Urine Bacteria (None) /hpf Urine Mucus (Occasional) /lpf MTS Gel Crossmatch 09/27/17 09/27/17 09/27/17 Range/Units 08:10 08:20 10:20 WBC (4.0-11.0) th/mm3 RBC (4.00-5.30) mil/mm3 Hgb (11.6-15.3) gm/dL Hct (35.0-46.0) % MCV (80.0-100.0) fL MCH (27.0-34.0) pg RDW (11.6-17.2) % MPV (7.0-11.0) fL Lymphocytes % (Manual) (9-44) % Eosinophils % (Manual) (0-4) % Abs Neuts (Manual) (1.8-7.7) th/mm3 Nucleated RBCs/100 WBC (0-0) /100 WBC Platelet Estimate (Normal) Target Cells (None) PT (9.8-11.6) sec APTT (24.3-30.1) sec Potassium (3.5-5.1) meq/L Carbon Dioxide (21.0-32.0) meq/L Anion Gap (5-15) meq/L Creatinine (0.50-1.00) mg/dL Estimated GFR (>89) mL/min Lactic Acid 3.1 H (0.4-2.0) mmol/L Calcium (8.5-10.1) mg/dL AST (15-37) U/L Troponin I (0.02-0.05) ng/mL B-Natriuretic Peptide 136 H (0-100) pg/mL Total Protein (6.4-8.2) g/dL Albumin (3.4-5.0) g/dL Lipase (73-393) U/L Urine Protein 30 H (Neg-Trace) mg/dL Urine Bacteria Few H (None) /hpf Urine Mucus Few H (Occasional) /lpf MTS Gel Crossmatch 09/27/17 Range/Units 11:27 WBC (4.0-11.0) th/mm3 RBC (4.00-5.30) mil/mm3 Hgb (11.6-15.3) gm/dL Hct (35.0-46.0) % MCV (80.0-100.0) fL MCH (27.0-34.0) pg RDW (11.6-17.2) % MPV (7.0-11.0) fL Lymphocytes % (Manual) (9-44) % Eosinophils % (Manual) (0-4) % Abs Neuts (Manual) (1.8-7.7) th/mm3 Nucleated RBCs/100 WBC (0-0) /100 WBC Platelet Estimate (Normal) Target Cells (None) PT (9.8-11.6) sec APTT (24.3-30.1) sec Potassium (3.5-5.1) meq/L Carbon Dioxide (21.0-32.0) meq/L Anion Gap (5-15) meq/L Creatinine (0.50-1.00) mg/dL Estimated GFR (>89) mL/min Lactic Acid (0.4-2.0) mmol/L Calcium (8.5-10.1) mg/dL AST (15-37) U/L Troponin I (0.02-0.05) ng/mL B-Natriuretic Peptide (0-100) pg/mL Total Protein (6.4-8.2) g/dL Albumin (3.4-5.0) g/dL Lipase (73-393) U/L Urine Protein (Neg-Trace) mg/dL Urine Bacteria (None) /hpf Urine Mucus (Occasional) /lpf MTS Gel Crossmatch See Detail Short CBC 09/27/17 Range/Units 08:10 WBC 0.9 L (4.0-11.0) th/mm3 Hgb 5.5 L* (11.6-15.3) gm/dL Hct 16.3 L* (35.0-46.0) % Plt Count 162 (150-450) th/mm3 BMP 09/27/17 08:10 Sodium 136 Potassium 3.0 L Chloride 100 Carbon Dioxide 20.1 L BUN 17 Creatinine 1.50 H Calcium 8.2 L Cardiac Enzymes 09/27/17 Range/Units 08:10 Total Creatine Kinase 26 (26-192) U/L Troponin I Less than 0.02 L (0.02-0.05) ng/mL Liver Function 09/27/17 Range/Units 08:10 Total Bilirubin 0.8 (0.2-1.0) mg/dL AST 12 L (15-37) U/L ALT 29 (10-53) U/L Alkaline Phosphatase 117 (45-117) U/L Albumin 1.3 L (3.4-5.0) g/dL Urine 09/27/17 Range/Units 08:20 Urine Color Amelie (Yellw/Straw) Urine Clarity Clear (Clear) Urine pH 5.0 (5.0-8.5) Ur Specific [place] 1.017 (1.002-1.035) Urine Protein 30 H (Neg-Trace) mg/dL Urine Glucose (UA) 50 (Negative) mg/dL <Nikole Washington - 09/27/17 12:44> - Imaging Impressions Knee CT 09/27/17 00:00 CONCLUSION: 1. Left knee arthroplasty without fracture. 2. There does appear to be a joint effusion with fluid tracking anteriorly within the knee. Knee X-Ray 09/27/17 00:00 CONCLUSION: No acute left knee abnormality is identified. Total knee arthroplasty hardware demonstrates no acute finding. Possible small joint effusion. Tibia/Fibula X-Ray 09/27/17 00:00 CONCLUSION: No acute left leg abnormality is identified. <Maddy Jackson - 09/28/17 13:07> Impressions Abdomen/Pelvis CT 09/27/17 08:10 CONCLUSION: 1. Mild hepatic steatosis. 2. Thickening of the colon secondary to lack of distention versus colitis. 3. Left lower lobe consolidation and/or atelectasis. There does appear to be a 1.4 cm cavitary area which makes consolidation likely. Chest X-Ray 09/27/17 08:10 CONCLUSION: Stable chest without evidence of acute cardiopulmonary process. Postsurgical changes in the lower cervical spine following anterior fusion. Head CT 09/27/17 08:10 CONCLUSION: No acute intracranial abnormality is seen. Venous Doppler Study 09/27/17 08:12 CONCLUSION: No DVT. Chest CTA 09/27/17 08:22 CONCLUSION: 1. No pulmonary embolus. 2. Consolidation or atelectasis at the left lower lobe. <Nikole Washington - 09/27/17 12:44> Caprini VTE Risk Assessment Caprini VTE Risk Assessment: Moderate/High Risk (score >= 2) <Nikole Washington - 09/27/17 19:47> Caprini Risk Assessment Model: Point Value = 1 Point Value = 2 Point Value = 3 Point Value = 5 Age 41-60 Minor surgery BMI > 25 kg/m2 Swollen legs Varicose veins or History of unexplained or recurrent spontaneous Oral contraceptives or hormone replacement Sepsis (< 1 month) Serious lung disease, including pneumonia (< 1 month) Abnormal pulmonary function Acute myocardial infarction Congestive heart failure (< 1 month) History of inflammatory bowel disease Medical patient at bed rest Age 61-74 Arthroscopic surgery Major open surgery (> 45 min) Laparoscopic surgery (> 45 min) Malignancy Confined to bed (> 72 hours) Immobilizing plaster cast Central venous access Age >= 75 History of VTE Family history of VTE Factor V Leiden Prothrombin [id number] Lupus anticoagulant Anticardiolipin antibodies Elevated serum homocysteine Heparin-induced thrombocytopenia Other congenital or acquired thrombophilia Stroke (< 1 month) Elective arthroplasty Hip, pelvis, or leg fracture Acute spinal cord injury (< 1 month) <Maddy Jackson - 09/28/17 13:07> Point Value = 1 Point Value = 2 Point Value = 3 Point Value = 5 Age 41-60 Minor surgery BMI > 25 kg/m2 Swollen legs Varicose veins or History of unexplained or recurrent spontaneous Oral contraceptives or hormone replacement Sepsis (< 1 month) Serious lung disease, including pneumonia (< 1 month) Abnormal pulmonary function Acute myocardial infarction Congestive heart failure (< 1 month) History of inflammatory bowel disease Medical patient at bed rest Age 61-74 Arthroscopic surgery Major open surgery (> 45 min) Laparoscopic surgery (> 45 min) Malignancy Confined to bed (> 72 hours) Immobilizing plaster cast Central venous access Age >= 75 History of VTE Family history of VTE Factor V Leiden Prothrombin [id number] Lupus anticoagulant Anticardiolipin antibodies Elevated serum homocysteine Heparin-induced thrombocytopenia Other congenital or acquired thrombophilia Stroke (< 1 month) Elective arthroplasty Hip, pelvis, or leg fracture Acute spinal cord injury (< 1 month) <Nikole Washington - 09/27/17 12:44> Prophylaxis Regimen: Total Risk Factor Score Risk Level Prophylaxis Regimen 0-1 Low Early ambulation 2 Moderate Order ONE of the following: *Sequential Compression Device (SCD) *Heparin 5000 units SQ BID 3-4 Higher Order ONE of the following medications: *Heparin 5000 units SQ TID *Enoxaparin/Lovenox 40 mg SQ daily (WT < 150 kg, CrCl > 30 mL/min) *Enoxaparin/Lovenox 30 mg SQ daily (WT < 150 kg, CrCl > 10-29 mL/min) *Enoxaparin/Lovenox 30 mg SQ BID (WT < 150 kg, CrCl > 30 mL/min) AND/OR *Sequential Compression Device (SCD) 5 or more Highest Order ONE of the following medications: *Heparin 5000 units SQ TID (Preferred with Epidurals) *Enoxaparin/Lovenox 40 mg SQ daily (WT < 150 kg, CrCl > 30 mL/min) *Enoxaparin/Lovenox 30 mg SQ daily (WT < 150 kg, CrCl > 10-29 mL/min) *Enoxaparin/Lovenox 30 mg SQ BID (WT < 150 kg, CrCl > 30 mL/min) AND *Sequential Compression Device (SCD) <Maddy aJckson - 09/28/17 13:07> Total Risk Factor Score Risk Level Prophylaxis Regimen 0-1 Low Early ambulation 2 Moderate Order ONE of the following: *Sequential Compression Device (SCD) *Heparin 5000 units SQ BID 3-4 Higher Order ONE of the following medications: *Heparin 5000 units SQ TID *Enoxaparin/Lovenox 40 mg SQ daily (WT < 150 kg, CrCl > 30 mL/min) *Enoxaparin/Lovenox 30 mg SQ daily (WT < 150 kg, CrCl > 10-29 mL/min) *Enoxaparin/Lovenox 30 mg SQ BID (WT < 150 kg, CrCl > 30 mL/min) AND/OR *Sequential Compression Device (SCD) 5 or more Highest Order ONE of the following medications: *Heparin 5000 units SQ TID (Preferred with Epidurals) *Enoxaparin/Lovenox 40 mg SQ daily (WT < 150 kg, CrCl > 30 mL/min) *Enoxaparin/Lovenox 30 mg SQ daily (WT < 150 kg, CrCl > 10-29 mL/min) *Enoxaparin/Lovenox 30 mg SQ BID (WT < 150 kg, CrCl > 30 mL/min) AND *Sequential Compression Device (SCD) <Nikole Washington - 09/27/17 12:44> Assessment and Plan - Assessment (1) Sepsis Code(s): A41.9 - Sepsis, unspecified organism Status: Acute (2) Cellulitis of knee, left Code(s): L03.116 - Cellulitis of left lower limb Status: Acute (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 - Infection and inflammatory reaction due to unspecified internal joint prosthesis, initial encounter Status: Suspected (4) Neutropenia Code(s): D70.9 - Neutropenia, unspecified Status: Acute (5) Anemia Code(s): D64.9 - Anemia, unspecified Status: Acute (6) Pneumonia Code(s): J18.9 - Pneumonia, unspecified organism Status: Acute (7) Diarrhea Code(s): R19.7 - Diarrhea, unspecified Status: Acute (8) Schizophrenia Code(s): F20.9 - Schizophrenia, unspecified Status: Chronic (9) Hypertension Code(s): I10 - Essential (primary) hypertension Status: Acute (10) Elevated creatine kinase Code(s): R74.8 - Abnormal levels of other serum enzymes Status: Acute (11) Nutrition, metabolism, and development symptoms Code(s): R63.8 - Other symptoms and signs concerning food and fluid intake Status: Acute <Maddy Jackson - 09/28/17 13:07> (1) Sepsis Code(s): A41.9 - Sepsis, unspecified organism Status: Acute Plan: On admission patient found to be in severe sepsis with tachycardia (110), new onset neutropenia (WBC 0.9), Lactic acid of 3.1, and AMS. Probable source is thought to be pulmonary and/or cellulitis or prosthetic joint infection of left leg or knee, respectively. Patient is alert and oriented only to self. On exam no acute distress. No neurological deficits noted. In the ED patient received 2 L of normal saline, vancomycin 1 g x1 and Zosyn 4.5 g x1. Chest CTA: No evidence of pulmonary embolism. Atelectasis or consolidation of left lower lobe. Head CT: No acute intracranial abnormality seen. CT abdomen/pelvis with IV contrast: Mild hepatic steatosis, thickening of colon secondary to lack of his tension versus colitis. Lower lobe consolidation or atelectasis. Consolidation more likely due to 1.4 cm cavitary area in the left lower lung. UA negative Continue with Vanc and cefepime for broad-spectrum coverage Infectious disease consulted, appreciate recommendations Follow-up: blood cultures, urine cultures, wound culture obtained from clear discharge of small wound of left knee Lactic acid A.m. labs (2) Cellulitis of knee, left Code(s): L03.116 - Cellulitis of left lower limb Status: Acute Plan: See plan above for sepsis (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 - Infection and inflammatory reaction due to unspecified internal joint prosthesis, initial encounter Status: Suspected Plan: Patient with history of total left knee replacement in July 26, 2017. She completed rehabilitation and was discharged home August 23. Patient recently treated with antibiotics for left leg infection. Swelling and purulent discharge from incision has improved according to . ESR elevated at greater than 140 Consider orthopedic consultation for further evaluation See plan above for sepsis (4) Neutropenia Code(s): D70.9 - Neutropenia, unspecified Status: Acute Plan: Patient presenting with new onset neutropenia with WBC of (0.9). Prior blood work reviewed and white blood cells were within normal limits. Neutropenia possibly due to sepsis, psychotic medications or bone marrow malignancy. Continue to monitor WBC Patient placed on neutropenic precautions Hematology consulted, appreciate recommendations (5) Anemia Code(s): D64.9 - Anemia, unspecified Status: Acute Plan: Patient with new onset anemia. On admission H&H found to be 5.5/16.3. On review of chart patient had baseline H&H of 8.2/24 on July/2017. Patient denies any blood in her stool. In the ED patient was found to be guaiac negative. Plan for packed red blood cell transfusion Follow-up: Iron studies Posttransfusion H&H (6) Pneumonia Code(s): J18.9 - Pneumonia, unspecified organism Status: Acute Plan: Patient found to have left lower lobe consolidation on chest CTA. Follow-up: Legionella and pneumococcal urinary antigen See plan above for sepsis (7) Diarrhea Code(s): R19.7 - Diarrhea, unspecified Status: Acute Plan: Patient with 3-day history of diarrhea in the setting of recent antibiotic use. Follow-up C. difficile PCR (8) Schizophrenia Code(s): F20.9 - Schizophrenia, unspecified Status: Chronic Plan: Patient with chronic history of schizophrenia. Patient with active hallucinations of seeing someone out to get her. On exam patient was calm and cooperative at time with circumstantial speech pattern. Denies suicidal ideation however endorsed that she will get whoever was after her. Denied auditory or tactile hallucinations. Continue to monitor Consider one-to-one sitter if patient becomes agitated Hold psychiatric medications that can have suppressive effect on bone marrow Consider psychiatry evaluation for adjustment of psychiatric medications clinically stable (9) Hypertension Code(s): I10 - Essential (primary) hypertension Status: Acute Plan: Continue to monitor Resume home medication (10) Elevated creatine kinase Code(s): R74.8 - Abnormal levels of other serum enzymes Status: Acute Plan: Patient with increased creatinine of 1.5 Continue with IV fluids at maintenance Continue to monitor Avoid nephrotoxic agents (11) Nutrition, metabolism, and development symptoms Code(s): R63.8 - Other symptoms and signs concerning food and fluid intake Status: Acute Plan: Fluids: She received 2 L bolus of IV fluid in the ED, continue with maintenance at 140mls/hr Electrolytes: Replete as needed Nutrition: Patient passed bedside swallow evaluation, resume cardiac diet as tolerated. DVT prophylaxis: Heparin SQ every 8hr <Nikole Washington - 09/27/17 19:00> - Assessment and Plan Discussed Condition With: Dr. Jackson and Dr. Carney <Nikole Washington 09/27/17 19:47> - Attending Attestation The exam, history, and the medical decision-making described in the above note were completed with the assistance of the resident physician. I reviewed and agree with the findings presented. I attest that I had a [id number] encounter with the patient on the same day, and personally performed and documented my assessment and findings in the medical record. Agree with fluid boluses and watching carefully so that if patient does not respond will need to go to the intensive care to have pressors. <Maddy Jackson M - 09/28/17 13:07> <Nikole Washington D - Last Filed: 09/27/17 19:00> (1) Sepsis Qualifiers: Sepsis type: sepsis due to unspecified organism Qualified Code(s): A41.9 - Sepsis, unspecified organism (4) Neutropenia Qualifiers: Neutropenia type: unspecified Qualified Code(s): D70.9 - Neutropenia, unspecified (5) Anemia Qualifiers: Anemia type: unspecified type Qualified Code(s): D64.9 - Anemia, unspecified (6) Pneumonia Qualifiers: Pneumonia type: due to unspecified organism Laterality: left Lung location: lower lobe of lung Qualified Code(s): J18.1 - Lobar pneumonia, unspecified organism <Maddy Jackson - Last Filed: 09/28/17 13:07> (1) Sepsis Qualifiers: Sepsis type: sepsis due to unspecified organism Qualified Code(s): A41.9 - Sepsis, unspecified organism (4) Neutropenia Qualifiers: Neutropenia type: unspecified Qualified Code(s): D70.9 - Neutropenia, unspecified (5) Anemia Qualifiers: Anemia type: unspecified type Qualified Code(s): D64.9 - Anemia, unspecified (6) Pneumonia Qualifiers: Pneumonia type: due to unspecified organism Laterality: left Lung location: lower lobe of lung Qualified Code(s): J18.1 - Lobar pneumonia, unspecified organism (9) Hypertension Qualifiers: Hypertension type: essential hypertension Qualified Code(s): I10 - Essential (primary) hypertension <Nikole Washington - Last Filed: 09/27/17 19:00> (1) Sepsis Qualifiers: Sepsis type: sepsis due to unspecified organism Qualified Code(s): A41.9 - Sepsis, unspecified organism (4) Neutropenia Qualifiers: Neutropenia type: unspecified Qualified Code(s): D70.9 - Neutropenia, unspecified (5) Anemia Qualifiers: Anemia type: unspecified type Qualified Code(s): D64.9 - Anemia, unspecified (6) Pneumonia Qualifiers: Pneumonia type: due to unspecified organism Laterality: left Lung location: lower lobe of lung Qualified Code(s): J18.1 - Lobar pneumonia, unspecified organism <Maddy Jackson M - Last Filed: 09/28/17 13:07> (1) Sepsis Qualifiers: Sepsis type: sepsis due to unspecified organism Qualified Code(s): A41.9 - Sepsis, unspecified organism (4) Neutropenia Qualifiers: Neutropenia type: unspecified Qualified Code(s): D70.9 - Neutropenia, unspecified (5) Anemia Qualifiers: Anemia type: unspecified type Qualified Code(s): D64.9 - Anemia, unspecified (6) Pneumonia Qualifiers: Pneumonia type: due to unspecified organism Laterality: left Lung location: lower lobe of lung Qualified Code(s): J18.1 - Lobar pneumonia, unspecified organism (9) Hypertension Qualifiers: Hypertension type: essential hypertension Qualified Code(s): I10 - Essential (primary) hypertension
[2017-09-27] MEDS ORDERED: Senna/Docusate Sodium 8.6/50 MG Tablet PO PRN (13:04)
[2017-09-27] MEDS ORDERED: Bisacodyl 10 MG Supp RECTAL PRN (13:04)
--- NOTE | 2017-09-27 13:34 | ECG ---
Date Performed: 09/27/2017 Time Performed: 08:06:56 PTAGE: 51 years EKG: SINUS TACHYCARDIA ABNORMAL RHYTHM ECG Compared to PREVIOUS TRACING rate has increased with nonspecific ST-T wave changes Clinical correlat ion is recommended PREVIOUS TRACIN07/16/17 DOCTOR: Lauro Parsons Interpretating Date/Time 09/27/2017 13:24:35
[2017-09-27] MEDS ORDERED: Heparin - SQ 10,000 UNITS/ML Vial SQ SCH (14:00)
[2017-09-27 16:13] LABS: % Iron Saturation 5.4 % (20-50)
[2017-09-27] MEDS: Sod Chloride 0.9% Inj 1,000 ML IV.CONT SCH ×2 (17:38→23:41)
[2017-09-27] MEDS ORDERED: Nystatin/Diphenhydramine/Lidocaine Mouthwash (Adult) 120 ML Botttle SWISH-SWAL SCH (18:00)
[2017-09-27 18:27] LABS: Ferritin 1768 ng/mL (8-252)
--- NOTE | 2017-09-27 18:38 | P.CON ---
History of Present Illness Service: Hematology/oncology Consult date: 09/27/17 Reason for Consult: Severe leukopenia and severe anemia. Primary Care Provider: Chaz Vivar MD, R2 Family Provider: Chaz Vivar MD, R2 Chief Complaint: Confusion, pain in the left leg, purulent discharge from left knee. History of Present Illness: Ms. Mcclain is a 51-year-old female, she has no previous known hematologic diagnoses or comorbid conditions. The patient at this time is a poor historian due to confusion, the history is been obtained from the electronic health record as well as from her Emile. The patient's reports the patient had been in good health, she underwent on July 26 a left total knee replacement (Dr. Stas Lutz) she was discharged from this hospital to a rehab facility on July 29 and remained there until August 24, 2017. The patient's reports the patient had been recovering reasonably well from surgery up until then however following discharge home she became increasingly confused and weak. The patient's reports the patient began to notice pain and swelling of her left knee, he notes the upper/superior portion of the incision opened up and a yellow discharge began to evacuate from there he reports several days later the inferior portion of the incision began to drain similar liquid. The patient was evaluated by a physician (per the patient's not the orthopedic surgeon) and was initiated on antibiotics the names of which he cannot remember. He tells me the discharge decreased after the antibiotics which the patient completed just a few days ago however the redness and swelling of the left leg did not resolve. Over this period time the patient became increasingly somnolent, her appetite decreased and she essentially became bedbound. The patient does have a history of chronic schizophrenia which had been reasonably well-controlled up until her acute illness, the patient's reports she became increasingly paranoid over the past 1 week. He reports she had no appetite and was also having symptoms of fecal incontinence and diarrhea. Patient is brought into the emergency department this morning for the above issues. She underwent CT angiogram of the chest which revealed no evidence of pulmonary embolus however she was found to have a small cavitary lesion in the left lower lobe of the lung concerning for pneumonia. CT scan of the abdomen pelvis revealed findings concerning for colitis. Imaging studies of the left knee are pending. Blood cultures and urine cultures have been drawn, the patient was also on physical exam noted to have skin breakdown around the umbilicus and in the fold of the skin overlying the suprapubic area. Orthopedic surgery, infectious diseases and wound care have been asked to see the patient in consultation. The oncology/hematology service is been asked to see her because of severe anemia, the patient presented with a hemoglobin of 5.5 g/dL as well as a new onset leukopenia with a total WBC count of 0.9. Previous blood work dating back to July 2017 indicates essentially normal hemoglobin, hematocrit and WBC levels. Review of Systems unobtainable due to mental condition ( the patient is not alert oriented, she is actively hallucinating.) The review of systems was obtained from the patient's . The patient herself was unable to provide much details other than telling me her leg hurt, she denies having had fevers or chills, she denies difficulty breathing and she denies having had overt bleeding. Her likewise denies evident overt bleeding and specifically denies hematochezia or melena. He reports the patient had purulent discharge from her left knee, and has noted her left leg to be swollen and painful. FOR[facility]LY [facility] - History History Provided By: Patient, Family Member, Medical Record - Medical History Medical History: Medical History (Last Updated 09/27/17 @ 18:21 by David Hudson MD) Carpal tunnel syndrome on both sides Chronic neck pain H/O: hysterectomy High cholesterol Hypertension Hypothyroidism Osteoarthritis Post hysterectomy menopause Renal disease Schizophrenia - Surgical History Surgical History: Surgical History (Last Updated 09/27/17 @ 18:21 by David Hudson MD) History of neck surgery History of total knee replacement Previous section - Tobacco History Second Hand Smoke Exposure: Yes Smoking Status: Never smoker - Alcohol History How Often Do You Have a Drink Containing Alcohol: Never - Substance Use History Substance History: No History of Abuse - Travel History Recent Travel in the [place] Within the Last 8 Weeks: No Recent Travel Out of the Country Within the Last 8 Weeks: No - Immunization History Tetanus Immunization: Unsure Hx Influenza Vaccine This Season: Yes Medications and Allergies Active Medications: Active Medications Al Hydroxide/Mg Hydroxide (Milk Of Cira Sims) 30 ml PO Q12H PRN PRN Reason: Mild Constipation Albuterol (Duoneb Neb (Prn)) 1 ampul NEB Q6HR NEB PRN PRN Reason: SHORTNESS OF BREATH Bisacodyl (Dulcolax Supp) 10 mg RECTAL DAILY PRN PRN Reason: SEVERE CONSITIPATION Diltiazem HCl (Cardizem) 60 mg PO QID [facility] Duloxetine HCl (Cymbalta) 60 mg PO DAILY [facility] Heparin Sodium (Porcine) (Heparin Inj) 5,000 units SQ Q8HR [place] Sodium Chloride (Ns Inj) 250 mls @ 15 mls/hr IV.SIG ONCE [place] Stop: 09/28/17 02:39 Last Admin: 09/27/17 14:52 Dose: 15 mls/hr Sodium Chloride (Ns Inj) 1,000 mls @ 140 mls/hr IV.CONT .Q7H9M [place] Last Admin: 09/27/17 17:38 Dose: 140 mls/hr Vancomycin HCl 1,500 mg/ (Sodium Chloride) 515 mls @ 250 mls/hr IV.SIG Q12H [place] Cefepime HCl 2,000 mg/ Sodium (Chloride) 100 mls @ 200 mls/hr IV.SIG Q12H [facility] Lactulose (Lactulose Liq) 30 ml PO DAILY PRN PRN Reason: SEVERE CONSITIPATION Multi-Ingredient Mouthwash/Gargle (Magic Mouthwash Adult Liq) 5 ml SWISH-SWAL QID [facility] Non-Formulary Medication (Lovastatin [Lovastatin]) 40 mg PO DAILY [facility] Non-Formulary Medication (Omeprazole [Omeprazole]) 20 mg PO DAILY [facility] Non-Formulary Medication (Buspirone [Buspirone]) 30 mg PO TID [facility] Ondansetron HCl (Zofran Odt) 4 mg SL Q6H PRN PRN Reason: NAUSEA OR VOMITING Senna/Docusate Sodium (Kaykay-Colace) 1 tab PO BID PRN PRN Reason: CONSTIPATION Sennosides (Senokot) 17.2 mg PO Q12H PRN PRN Reason: Moderate Constipation Tizanidine HCl (Zanaflex) 4 mg PO TID PRN PRN Reason: Hypertension Trazodone HCl (Desyrel) 100 mg PO DAILY [facility] Allergies Allergy/AdvReac Type Severity Reaction Status Date / Time amoxicillin Allergy Swelling Verified 09/27/17 17:54 Home Medications Medication Instructions Recorded Confirmed Type aripiprazole 30 mg PO DAILY 09/27/17 09/27/17 History benztropine 2 mg PO BID 09/27/17 09/27/17 History buspirone 30 mg PO TID 09/27/17 09/27/17 History diclofenac sodium 75 mg PO BID 09/27/17 09/27/17 History diltiazem HCl 60 mg PO QID 09/27/17 09/27/17 History duloxetine 60 mg PO DAILY 09/27/17 09/27/17 History leflunomide 20 mg PO DAILY 09/27/17 09/27/17 History lovastatin 40 mg PO DAILY 09/27/17 09/27/17 History methotrexate 20 mg/m2 PO QWEEK 09/27/17 09/27/17 History omeprazole 20 mg PO DAILY 09/27/17 09/27/17 History tizanidine 4 mg PO TID PRN 09/27/17 09/27/17 History trazodone 100 mg PO DAILY 09/27/17 09/27/17 History Physical Exam Vital signs: Vital Signs 09/27/17 07:58 09/27/17 08:23 09/27/17 09:40 Temperature 98.2 F Pulse Rate 110 H 107 H Respiratory Rate 18 16 Blood Pressure 95/47 L 108/59 L Pulse Oximetry 94 L 96 95 09/27/17 11:10 09/27/17 12:00 09/27/17 12:15 Temperature 98.2 F Pulse Rate 110 H 110 H 110 H Respiratory Rate 18 17 18 Blood Pressure 122/57 L 119/53 L 123/65 Pulse Oximetry 99 99 09/27/17 12:56 09/27/17 14:07 09/27/17 14:35 Temperature 98.2 F 98.4 F Pulse Rate 128 H 113 H Respiratory Rate 18 19 Blood Pressure 137/58 L 165/76 H Pulse Oximetry 98 99 99 09/27/17 15:42 09/27/17 15:50 Temperature 98.9 F 98.8 F Pulse Rate 108 H 124 H Respiratory Rate 17 18 Blood Pressure 153/66 H 156/70 H Pulse Oximetry 98 Intake & Output 09/26/17 09/27/17 09/27/17 18:59 06:59 18:59 Intake Total 400 / 400 Balance 400 / 400 Weight 100 kg Intake: Intake (Blood Product) Amt 400 / 400 Rbc As-3 Leukoreduced Unit 400 / 400 [id number] - Constitutional mild distress, chronically ill appearing, cooperative Comments: Confused. - Routine HEENT Exam Head: Present: normocephalic, atraumatic. Absent: cushingoid faces, abrasion Eye: Present: EOMI, PERRL. Absent: normal accommodation, conjunctival icterus ENT: Absent: mucous membranes moist, mucous membranes dry - Routine Neck Exam Absent: supple, full ROM, JVD, carotid bruit - Routine Respiratory Exam Present: decreased breath sounds (Decreased bibasilar breath sounds), diminished air movement (Over bases). Absent: accessory muscle use, patient mechanically ventilated, CTA bilaterally, prolonged expiratory phase, rales, respiratory distress, rhonchi, stridor, wheezes, distant breath sounds - Routine Cardiovascular Exam Present: S1, S2, tachycardia - Routine Abdominal Exam Present: tenderness Comments: Obese belly, soft, no obvious organ enlargement. Skin examination: The skin inferior to the umbilicus tracking all the way to the suprapubic area had ulceration likely related to a yeast infection. - Routine Extremities Exam Comments: Right lower extremity without significant abnormalities, tenderness or edema. Left lower extremity well-healed left TKA incision. No obvious discharge at this time. Erythema identified overlying the left lower extremity distal to the knee. Tenderness overlying the knee as well as the left calf. - Routine Neurological Exam Present: alert She is hallucinating. She is oriented to person but not to place time or situation. - Detailed Neurological Exam: Coma Scale Eye Opening: Spontaneous Verbal Response: Confused - Routine Psychiatric Exam Present: visual hallucinations. Absent: good judgment - Urinary Catheter Management Indwelling Urethral Catheter Cath placed during this visit: yes Reason for continuing: Hourly intake/output Insertion date: 09/27/17 Insertion time: 08:20 Assessment and Plan - Assessment (1) Cellulitis of knee, left Code(s): L03.116 - Cellulitis of left lower limb Status: Acute Plan: Blood cultures drawn. Patient is on vancomycin, received 1 dose of Zosyn as well. Infectious diseases and orthopedic surgery (Dr. Stas Lutz) service is been consulted. The patient is approximately 1 month out from a left total knee replacement. Patient's tells me he was trying to get him to meet with the orthopedic surgeon but due to the patient's rapid decline they brought her into the hospital instead. (2) Sepsis Code(s): A41.9 - Sepsis, unspecified organism Status: Acute Plan: Likely related cellulitis of the left knee. Now on broad-spectrum antibiotic coverage of vancomycin, status post 1 dose of Zosyn. (3) Neutropenia Code(s): D70.9 - Neutropenia, unspecified Status: Acute Plan: Both neutropenia and anemia appear to be acute. Patient's peripheral smear was reviewed; there were no dysplastic or dysmorphic findings identified. The few neutrophils which were present had toxic granulation and band like appearance indicating acute phase response to an infectious etiology. It is my suspicion that her neutropenia may be related to severe sepsis or perhaps related to a drug reaction such as the multiple antipsychotics she is on , she is also recently been on antibiotics, antibiotics frequently are associated with neutropenia. At this point, I would not recommend a bone marrow biopsy due to the lack of peripheral smear findings to suggest a primary bone marrow disorder. I would advise treating her severe sepsis and monitoring her blood counts very closely, should her cytopenias persist a bone marrow biopsy would be a reasonable thing to do. (4) Anemia Code(s): D64.9 - Anemia, unspecified Status: Acute Plan: No history of acute blood losses. Serum iron studies reviewed; these indicate likely iron deficiency. Peripheral smear was reviewed as well, she does have increased pallor of the red blood cells indicating iron deficiency. However, due to the patient's underlying infection and ongoing sepsis I suspect there may be some element of anemia related chronic inflammation which results in a type of functional iron deficiency where in body iron stores are not utilized during hematopoiesis. I would definitely avoid intravenous iron replacement therapy at this time given the patient's severe sepsis. There is a body of data suggesting worsening sepsis with IV iron replacement therapy. The present approach of red cell transfusions is the appropriate immediate treatment. Continue monitoring. - Plan Plan: 1. Severe sepsis: Broad-spectrum antibiotic coverage. 2. Obtain CT scan of the left knee. 3. Orthopedic surgery consultation, wound care consultation and infectious disease consultation is requested. 4. Await blood culture results. 5. Neutropenia: Likely related to severe sepsis/drug reaction. I would recommend avoiding medications at this time which are associated with marrow toxicity. 5. Anemia: Supportive transfusions. Hematology service to follow along with you. Discussed Condition With: The patient's . (2) Sepsis Qualifiers: Sepsis type: sepsis due to unspecified organism Qualified Code(s): A41.9 - Sepsis, unspecified organism (3) Neutropenia Qualifiers: Neutropenia type: unspecified Qualified Code(s): D70.9 - Neutropenia, unspecified (4) Anemia Qualifiers: Anemia type: unspecified type Qualified Code(s): D64.9 - Anemia, unspecified
[2017-09-27] MEDS: Duloxetine 60 MG DR Capsule PO SCH (20:55)
[2017-09-27] MEDS: dilTIAZem 60 MG Tablet PO SCH ×2 (20:55→23:40)
[2017-09-27] MEDS: traZODone 100 MG Tablet PO SCH (20:56)
[2017-09-27] MEDS ORDERED: Potassium Chloride 10 MEQ ER Capsule PO ONE (21:39)
[2017-09-27] MEDS ORDERED: Petrolatum Oint 30 GM Tube TOPICAL PRN (21:53)
[2017-09-27] MEDS ORDERED: Vancomycin Inj 1,500 MG in Sodium Chlor 0.9% Inj 500 ML IV.SIG SCH (22:00)
--- NOTE | 2017-09-27 22:25 | XR ---
EXAM DATE: 09/27/2017 10:20 PM EDT AGE/SEX: 51 years / Female INDICATIONS: Left tibia/fibula pain. CLINICAL DATA: This is the patient's initial encounter. Patient reports that signs and symptoms have been present for 1 day and indicates a pain score of 6/10. MEDICAL/SURGICAL HISTORY: . Hypothyroidism. Hypertension. Carpal tunnel syndrome. Hyperlipidemi a. Renal disease. . Neck surgery. Total knee replacement. COMPAR[place]: [facility] [place] [facility] [place] [facility] (1 OR 2VWS), 07/26/2017. . FINDINGS: 2 views of the left leg demonstrate no fracture or dislocation. Mineralization is normal. No soft tis dayo abnormality is identified. There is hardware at the knee joint related to prior total knee arthro plasty. CONCLUSION: No acute left leg abnormality is identified. Electronically signed by: Thor Corral MD 09/27/2017 10:24 PM EDT
--- NOTE | 2017-09-27 22:28 | XR ---
EXAM DATE: 09/27/2017 10:23 PM EDT AGE/SEX: 51 years / Female INDICATIONS: Left knee pain. CLINICAL DATA: This is the patient's initial encounter. Patient reports that signs and symptoms have been present for 1 day and indicates a pain score of 4/10. MEDICAL/SURGICAL HISTORY: . Hypothyroidism. Hypertension. Carpal tunnel syndrome. Hyperlipidemi a. Renal disease. . Neck surgery. Total knee replacement. COMPARISON: [facility], TIBIA FIBULA LEFT 2V, 09/27/2017. . FINDINGS: Portable AP and lateral views of the left knee demonstrate no fracture or dislocation. Mineralization is normal. There is metallic hardware cemented in place at the distal femur and proximal tibia with a radiolucent patellar component related to total knee arthroplasty. There may be a small amount of f luid in the suprapatellar bursa but no nas joint effusion is seen. Hardware demonstrates no finding to indicate loosening, failure, or uneven wear. No soft tissue abnormality or concerning radiopaque foreign body is identified. CONCLUSION: No acute left knee abnormality is identified. Total knee arthroplasty hardware demonstrates no acute finding. Possible small joint effusion. Electronically signed by: Thor Corral MD 09/27/2017 10:27 PM EDT
--- NOTE | 2017-09-27 22:46 | P.PNADD ---
Addendum to Inpatient Note Reason for Addendum: Additional Documentation Additional information: S: Medical team notified by nursing staff for concern of possible worsening status at approximately 2300. Patient currently has no IV status as her most recent IV has infiltrated well transfusing her blood products. Patient remains tachycardic in the low 100s with minimal urine output. Medical team to evaluate patient. Upon arrival, patient states that she is doing "okay." She is AAO 3 during the medical team's interview, however intermittently does report delusions to nursing staff stating that they "need to watch the man in the room." O: GENERAL: -[place] Citizen female lying in bed in no acute distress watching television. SKIN: Warm and diaphoretic. ABD: Abdominal skin with large erythematous, moist patch of candidal intertrigo ranging from the umbilicus to the perineum. HEENT: Atraumatic, normocephalic with extraocular motions intact. No rhinorrhea. Oropharynx with mobile white plaques consistent with oral candidiasis. No visible lymphadenopathy or jugulovenous distension appreciated. CARDIOVASCULAR: Tachycardic rate with regular rhythm. No obvious murmurs, gallops, or rubs. 2+ pulses in all four extremities. RESPIRATORY: Clear to anterior auscultation bilaterally with no crackles, wheezes, or rhonchi. No increased work of breathing. GASTROINTESTINAL: Abdomen soft, non-tender, nondistended with positive bowel sounds. No masses appreciated. MUSCULOSKELETAL: No cyanosis. Bilateral pitting edema. LLE: Visible surgical scar from left knee replacement. Small open wound along the incision without drainage. Tenderness to palpation along the left lower extremity with joint effusion. Range of motion and strength not examined due to current pain. 2+ pulses throughout the extremity. NEURO/PSYCH: Afocal. Awake, alert, and oriented x3. Slowed speech, normal judgement. A/P: Ms. Mcclain is a 51-year-old female admitted for severe sepsis likely secondary to left lower extremity and abdominal wall infection. -Academic Affairs Vice President, Dr. Baeza, contacted to assist with IV placement. IV access obtained bilaterally. -Continue with IV fluid and blood transfusion at this time. -Continue with vancomycin and cefepime for antibiotic coverage. -Start Diflucan 400 mg daily for candidal infections -Continue to monitor I/Os in tachycardia as IV fluid and blood transfusion should assist in control
--- NOTE | 2017-09-28 01:19 | CT ---
EXAM DATE: 09/28/2017 12:06 AM EDT AGE/SEX: 51 years / Female INDICATIONS: Left knee pain and swelling. Purulent drainage. CLINICAL DATA: This is the patient's initial encounter. Patient reports that signs and symptoms have been present for 3 days and indicates a pain score of 7/10. MEDICAL/SURGICAL HISTORY: Chronic renal failure. Osteoarthritis. Diabetes. Total knee replacemen t, left. RADIATION DOSE: 14.13 CTDI (mGy) COMPARISON: No prior exams available for comparison. TECHNIQUE: Multiple contiguous axial images were acquired using a multirow detector CT scanner witho ut contrast. Multiplanar reconstruction was performed in the sagittal and coronal planes. Using aut omated exposure control and adjustment of the mA and/or kV according to patient size, radiation dose was kept as low as reasonably achievable to obtain optimal diagnostic quality images. DICOM format i mage data is available electronically for review and comparison. FINDINGS: Bones: Left knee arthroplasty causing streak artifact. No definite fracture identified. No fracture is seen. Joints: No significant arthropathy or bony hypertrophy is seen. There does appear to be a joint effu keshawn fluid tracking within the anterior knee. Soft Tissues: No soft tissue mass is seen. Other: No foreign bodies seen. CONCLUSION: 1. Left knee arthroplasty without fracture. 2. There does appear to be a joint effusion with fluid tracking anteriorly within the knee. Electronically signed by: Ortiz Calderon MD 09/28/2017 1:18 AM EDT
[2017-09-28] MEDS ORDERED: Chlorhexidine Gluconate 2% 1 Pack (2 Cloths) TOPICAL PRN (04:00)
[2017-09-28] MEDS: Sod Chloride 0.9% Inj 1,000 ML IV.CONT SCH ×3 (05:07→22:59)
[2017-09-28] MEDS: Chlorhexidine Gluconate 2% 1 Pack (2 Cloths) TOPICAL SCH (05:10)
[2017-09-28] MEDS: Acetaminophen 325 MG Tablet PO PRN (05:10)
[2017-09-28 05:32] LABS: Hematocrit 25.8 % (35.0-46.0); Hemoglobin 8.8 gm/dL (11.6-15.3); Mean Corpuscular Hemoglobin 27.4 pg (27.0-34.0); Mean Corpuscular Volume 80.7 fL (80.0-100.0); Mean Platelet Volume 8.3 fL (7.0-11.0); Platelet Count 94 th/mm3 (150-450); White Blood Count 1.6 th/mm3 (4.0-11.0)
[2017-09-28 06:01] LABS: Alanine Aminotransferase 23 U/L (10-53); Albumin 1.2 g/dL (3.4-5.0); Alkaline Phosphatase 114 U/L (45-117); Anion Gap 14 meq/L (5-15); Aspartate Aminotransferase 18 U/L (15-37); Blood Urea Nitrogen 14 mg/dL (7-18); Calcium 7.1 mg/dL (8.5-10.1); Carbon Dioxide 20.4 meq/L (21.0-32.0); Chloride 109 meq/L (98-107); Glomerular Filtration Rate Greater Than 89 mL/min (>89); Glucose,Random 77 mg/dL (74-106); Sodium 143 meq/L (136-145); Total Protein 5.2 g/dL (6.4-8.2)
[2017-09-28 06:25] LABS: Potassium 2.8 meq/L (3.5-5.1)
[2017-09-28] MEDS ORDERED: Potassium Phosphate 500 MG Soluble Tablet PO PRN ×2 (06:42)
[2017-09-28] MEDS ORDERED: Potassium Chlor 40 mEq Premix 40 MEQ/100 ML PIGGYBACK IV.SIG PRN ×2 (06:42)
[2017-09-28] MEDS ORDERED: Magnesium Sulfate Inj 4 GM in Sodium Chlor 0.9% Inj 92 ML IV.SIG PRN (06:42)
[2017-09-28] MEDS ORDERED: Potassium Chloride 25 MEQ Effervescent Tablet PO PRN (06:42)
[2017-09-28] MEDS ORDERED: Potassium Phosphate Inj 30 MMOL in Sodium Chlor 0.9% Inj 250 ML IV.SIG PRN (06:42)
[2017-09-28] MEDS ORDERED: Magnesium Sulfate Inj 2 GM in Sodium Chlor 0.9% Inj 96 ML IV.SIG PRN (06:42)
[2017-09-28] MEDS ORDERED: Sodium Phosphate Inj 30 MMOL in Sodium Chlor 0.9% Inj 250 ML IV.SIG PRN (06:42)
[2017-09-28] MEDS ORDERED: Magnesium Oxide 400 MG Tablet PO PRN (06:42)
[2017-09-28] MEDS ORDERED: Potassium Chlor 20 mEq Premix 20 MEQ/100 ML PIGGYBACK IV.SIG PRN (06:42)
[2017-09-28 07:36] LABS: Eosinophils 9 % (0-4); Lymphocytes 50 % (9-44); Monocytes 14 % (0-8); Tallied Nucleated RBC 8 (0-0)
[2017-09-28 07:39] LABS: Dohle Bodies Present; Ovalocytes 1+; Platelet Morphology Normal (Normal); Target Cells 2+
--- NOTE | 2017-09-28 07:58 | MH ---
cc: Ad Frausto MD DATE OF ADMISSION: 09/27/2017 CHIEF COMPLAINT: Confusion. HISTORY OF PRESENT ILLNESS: A 51-year-old female who presents with the following history. Dr. Hudson requested orthopedic consultation. The patient was admitted to the hospital because of confusion and lower abdominal pain. The patient is status post C5-6, C6-7 anterior cervical discectomy and fusion on 12/21/2016 for spinal stenosis. The patient also has MRI scan that shows left shoulder rotator cuff tendon tear. The patient recently underwent a surgery on her left knee on 07/26/2017. The patient underwent a left total knee arthroplasty, posterior stabilized for severe arthritis and varus deformity with instability. The patient was admitted to the hospital yesterday. The patient was found to have pancytopenia with a white count of 900, hemoglobin of 5, and a platelet count of 160,000. Multiple blood cultures are still pending. The patient also has developed an abdominal wound. I am not sure of the etiology. She does have tenderness about the lower abdominal area. I am not sure if this is from the abdominal wall wound. The patient informed me that she does take showers every other day. PAST MEDICAL HISTORY: The patient does have a history of depression, hypertension, hypercholesterolemia, gastric reflux, rheumatoid arthritis, and hypothyroidism up. The patient underwent the above-mentioned C5-C7 ACDF on 12/2016 and left total knee arthroplasty on 07/26/2017. The patient did have a recent venous Doppler ultrasound which showed no evidence of a DVT. This is at [facility]. SOCIAL HISTORY: The patient lives at home with her . She has never smoked cigarettes. She does not drink alcohol. The patient is on disability. FAMILY HISTORY: Mother had emphysema. Father from a stroke. REVIEW OF SYSTEMS: See chart. PHYSICAL EXAMINATION: GENERAL: A 51-year-old female, morbidly overweight, BMI of 43. EXTREMITIES: Left knee has mild tenderness. No significant swelling. The wound itself is healing well. No evidence of clinical infection. The patient has negative Homans sign. No calf tenderness. ABDOMEN: The patient is morbidly overweight and she does have what appears to be inflammatory changes, possibly infectious changes involving skin may even the abdominal wall area involving the lower abdominal area. IMPRESSION: 1. Pancytopenia. 2. Lower abdominal wall probable infection. 3. Status post left total knee arthroplasty 07/26/2017. 4. Status post C5-C7 anterior cervical diskectomy and fusion 12/2016. 5. History of rheumatoid arthritis. 6. History of depression. 7. Morbid obesity. PLAN: Continue medical evaluation and management of pancytopenia. Recommend a surgical evaluation for lower abdominal wall infection in light of her pancytopenia. We will continue to follow the patient with you. Ad Frausto MD AWG/DL , 07:33 AM , 07:58 AM
[2017-09-28] MEDS: Potassium Chlor 20 mEq Premix 20 MEQ/100 ML PIGGYBACK IV.SIG PRN ×4 (08:10→14:21)
[2017-09-28] MEDS: dilTIAZem 60 MG Tablet PO SCH ×4 (08:11→23:00)
[2017-09-28] MEDS: Pantoprazole Sodium 20 MG DR Tablet PO SCH (08:11)
[2017-09-28] MEDS: traZODone 100 MG Tablet PO SCH (08:11)
[2017-09-28] MEDS: Duloxetine 60 MG DR Capsule PO SCH (08:11)
--- NOTE | 2017-09-28 08:52 | P.PNONC ---
Subjective Interval history: Ms. Mcclain was seen and examined this morning, vital signs, labs, microbiology, imaging studies and product support consultant notes reviewed. This morning the patient remains somnolent, she denies pain, she denies difficulty breathing and in fact reports feeling a little bit better. There were no acute cardiopulmonary issues overnight. The patient did receive multiple red cell transfusions overnight with an appropriate correction in her hemoglobin and hematocrit. There was no evidence of overt bleeding specifically hematochezia or melena. Objective Vital Signs/Intake & Output: Vital Signs 09/27/17 09:40 09/27/17 11:10 09/27/17 12:00 Temperature Pulse Rate 107 H 110 H 110 H Respiratory Rate 16 18 17 Blood Pressure 108/59 L 122/57 L 119/53 L Pulse Oximetry 95 99 09/27/17 12:15 09/27/17 12:56 09/27/17 14:07 Temperature 98.2 F 98.2 F 98.4 F Pulse Rate 110 H 128 H 113 H Respiratory Rate 18 18 19 Blood Pressure 123/65 137/58 L 165/76 H Pulse Oximetry 99 98 99 09/27/17 14:35 09/27/17 15:42 09/27/17 15:50 Temperature 98.9 F 98.8 F Pulse Rate 108 H 124 H Respiratory Rate 17 18 Blood Pressure 153/66 H 156/70 H Pulse Oximetry 99 98 09/27/17 18:08 09/27/17 18:55 09/27/17 19:18 Temperature 98.5 F 98.6 F Pulse Rate 107 H 104 H Respiratory Rate 18 20 Blood Pressure 155/70 H 155/70 H Pulse Oximetry 100 96 95 09/27/17 20:00 09/27/17 20:15 09/28/17 00:00 Temperature 98.5 F 98.5 F 98.5 F Pulse Rate 110 H 113 H 109 H Respiratory Rate 18 16 20 Blood Pressure 155/70 H 144/73 H 160/72 H Pulse Oximetry 100 100 100 09/28/17 04:00 09/28/17 05:48 09/28/17 08:00 Temperature 98.9 F 98 F Pulse Rate 113 H 102 H 102 H Respiratory Rate 20 18 18 Blood Pressure 152/71 H 155/72 H Pulse Oximetry 100 100 Intake & Output 07/12/18 07/13/18 07/13/18 18:59 06:59 18:59 Intake Total 400 / 400 4769 / 4769 Output Total 450 / 450 Balance 400 / 400 4319 / 4319 Weight 100 kg 113 kg Intake: IV 3069 / 3069 NS Inj 1,000 ML @ 140 mls/hr IV 1780 / 1780 .CONT .Q7H9M [facility] Rx#:[id number] Maxipime Inj 2,000 MG In NS Inj 100 / 100 100 ML @ 200 mls/hr IV.SIG Q12H [facility] Rx#:[id number] Diflucan 400 mg Premix Bag 200 200 / 200 ML @ 100 mls/hr IV.SIG Q24H [facility] Rx#:[id number] Vancomycin Inj 1,500 MG In NS 989 / 989 Inj 500 ML @ 250 mls/hr IV.SIG Q24H [facility] Rx#:[id number] Oral 1200 / 1200 Intake (Blood Product) Amt 400 / 400 500 / 500 Rbc As-3 Leukoreduced Unit 400 / 400 [id number] Rbc As-3 Leukoreduced Unit 400 / 400 [id number] Rbc As-3 Leukoreduced Unit 0 / 0 100 / 100 [id number] Output: Urine Amount (Catheter) 450 / 450 Indwelling Urethral Catheter 450 / 450 Other: Date of Last Bowel Movement 09/26/17 09/28/17 09/28/17 # Bowel Movements 1 Result Diagrams: 09/28/17 05:14 09/28/17 05:14 Laboratory Results: Laboratory Results - last 24 hr 09/27/17 09/27/17 09/27/17 08:10 08:10 08:10 WBC 0.9 L RBC 2.16 L Hgb 5.5 L* Hct 16.3 L* MCV 75.5 L MCH 25.4 L MCHC 33.6 RDW 23.8 H Plt Count 162 MPV 6.6 L Prelim Diff (Auto) Manual diff required WBC Differential Manual diff final Seg Neuts % (Manual) 36 Band Neuts % (Manual) 5 Lymphocytes % (Manual) 50 H Monocytes % (Manual) 3 Eosinophils % (Manual) 6 H Basophils % (Manual) Abs Neuts (Manual) 0.4 L* Nucleated RBCs/100 WBC 6 H Differential Comment . Dohle Bodies Platelet Estimate Low L Platelet Morphology Normal Target Cells 2+ H Ovalocytes ESR PT 12.3 H INR 1.2 APTT 30.2 H Sodium 136 Potassium 3.0 L Chloride 100 Carbon Dioxide 20.1 L Anion Gap 16 H BUN 17 Creatinine 1.50 H Estimated GFR 44 L POC Glucose Random Glucose 98 Lactic Acid Calcium 8.2 L Prot Corrected Calcium Phosphorus 2.5 Magnesium 1.6 Iron TIBC % Saturation Ferritin Total Bilirubin 0.8 AST 12 L ALT 29 Alkaline Phosphatase 117 Total Creatine Kinase 26 Troponin I Less than 0.02 L C-Reactive Protein B-Natriuretic Peptide Total Protein 5.6 L Albumin 1.3 L Lipase 28 L Vitamin B12 TSH Urine Color Urine Clarity Urine pH Ur Specific [place] Urine Protein Urine Glucose (UA) Urine Ketones Urine Occult Blood Urine Nitrate Urine Bilirubin Urine Urobilinogen Ur Leukocyte Esterase Urine RBC Urine WBC Ur Squamous Epith Cells Urine Bacteria Hyaline Casts Urine Mucus Micro UA Comment Urine Culture Comments Nasal Screen MRSA (PCR) Blood Type Blood Type Recheck Antibody Screen MTS Gel Crossmatch 09/27/17 09/27/17 09/27/17 08:10 08:10 08:20 WBC RBC Hgb Hct MCV MCH MCHC RDW Plt Count MPV Prelim Diff (Auto) WBC Differential Seg Neuts % (Manual) Band Neuts % (Manual) Lymphocytes % (Manual) Monocytes % (Manual) Eosinophils % (Manual) Basophils % (Manual) Abs Neuts (Manual) Nucleated RBCs/100 WBC Differential Comment Dohle Bodies Platelet Estimate Platelet Morphology Target Cells Ovalocytes ESR Greater than 140 H PT INR APTT Sodium Potassium Chloride Carbon Dioxide Anion Gap BUN Creatinine Estimated GFR POC Glucose Random Glucose Lactic Acid Calcium Prot Corrected Calcium Phosphorus Magnesium Iron TIBC % Saturation Ferritin Total Bilirubin AST ALT Alkaline Phosphatase Total Creatine Kinase Troponin I C-Reactive Protein B-Natriuretic Peptide 136 H Total Protein Albumin Lipase Vitamin B12 TSH Urine Color Amelie Urine Clarity Clear Urine pH 5.0 Ur Specific [place] 1.017 Urine Protein 30 H Urine Glucose (UA) 50 Urine Ketones Negative Urine Occult Blood Negative Urine Nitrate Negative Urine Bilirubin Negative Urine Urobilinogen Less than 2 Ur Leukocyte Esterase Negative Urine RBC Less than 1 Urine WBC 4 Ur Squamous Epith Cells 1 Urine Bacteria Few H Hyaline Casts 6 Urine Mucus Few H Micro UA Comment Cath-culture ind Urine Culture Comments Cath-cult indicated Nasal Screen MRSA (PCR) Blood Type Blood Type Recheck Antibody Screen MTS Gel Crossmatch 09/27/17 09/27/17 09/27/17 09:20 10:20 11:27 WBC RBC Hgb Hct MCV MCH MCHC RDW Plt Count MPV Prelim Diff (Auto) WBC Differential Seg Neuts % (Manual) Band Neuts % (Manual) Lymphocytes % (Manual) Monocytes % (Manual) Eosinophils % (Manual) Basophils % (Manual) Abs Neuts (Manual) Nucleated RBCs/100 WBC Differential Comment Dohle Bodies Platelet Estimate Platelet Morphology Target Cells Ovalocytes ESR PT INR APTT Sodium Potassium Chloride Carbon Dioxide Anion Gap BUN Creatinine Estimated GFR POC Glucose Random Glucose Lactic Acid 3.1 H Calcium Prot Corrected Calcium Phosphorus Magnesium Iron TIBC % Saturation Ferritin Total Bilirubin AST ALT Alkaline Phosphatase Total Creatine Kinase Troponin I C-Reactive Protein B-Natriuretic Peptide Total Protein Albumin Lipase Vitamin B12 TSH Urine Color Urine Clarity Urine pH Ur Specific [place] Urine Protein Urine Glucose (UA) Urine Ketones Urine Occult Blood Urine Nitrate Urine Bilirubin Urine Urobilinogen Ur Leukocyte Esterase Urine RBC Urine WBC Ur Squamous Epith Cells Urine Bacteria Hyaline Casts Urine Mucus Micro UA Comment Urine Culture Comments Nasal Screen MRSA (PCR) Blood Type O Positive Blood Type Recheck Not needed Antibody Screen Negative MTS Gel Crossmatch See Detail 09/27/17 09/27/17 09/27/17 15:00 15:00 15:00 WBC RBC Hgb Hct MCV MCH MCHC RDW Plt Count MPV Prelim Diff (Auto) WBC Differential Seg Neuts % (Manual) Band Neuts % (Manual) Lymphocytes % (Manual) Monocytes % (Manual) Eosinophils % (Manual) Basophils % (Manual) Abs Neuts (Manual) Nucleated RBCs/100 WBC Differential Comment Dohle Bodies Platelet Estimate Platelet Morphology Target Cells Ovalocytes ESR PT INR APTT Sodium Potassium Chloride Carbon Dioxide Anion Gap BUN Creatinine Estimated GFR POC Glucose Random Glucose Lactic Acid Calcium Prot Corrected Calcium Phosphorus Magnesium Iron 9 L TIBC 168 L % Saturation 5.4 L Ferritin Total Bilirubin AST ALT Alkaline Phosphatase Total Creatine Kinase Troponin I Cancelled C-Reactive Protein B-Natriuretic Peptide Total Protein Albumin Lipase Vitamin B12 Cancelled TSH Urine Color Urine Clarity Urine pH Ur Specific [place] Urine Protein Urine Glucose (UA) Urine Ketones Urine Occult Blood Urine Nitrate Urine Bilirubin Urine Urobilinogen Ur Leukocyte Esterase Urine RBC Urine WBC Ur Squamous Epith Cells Urine Bacteria Hyaline Casts Urine Mucus Micro UA Comment Urine Culture Comments Nasal Screen MRSA (PCR) Blood Type Blood Type Recheck Antibody Screen MTS Gel Crossmatch 09/27/17 09/27/17 09/27/17 15:00 15:10 15:10 WBC RBC Hgb Hct MCV MCH MCHC RDW Plt Count MPV Prelim Diff (Auto) WBC Differential Seg Neuts % (Manual) Band Neuts % (Manual) Lymphocytes % (Manual) Monocytes % (Manual) Eosinophils % (Manual) Basophils % (Manual) Abs Neuts (Manual) Nucleated RBCs/100 WBC Differential Comment Dohle Bodies Platelet Estimate Platelet Morphology Target Cells Ovalocytes ESR PT INR APTT Sodium Potassium Chloride Carbon Dioxide Anion Gap BUN Creatinine Estimated GFR POC Glucose Random Glucose Lactic Acid 1.7 Calcium Prot Corrected Calcium Phosphorus Magnesium Iron TIBC % Saturation Ferritin 1768 H Total Bilirubin AST ALT Alkaline Phosphatase Total Creatine Kinase Troponin I Less than 0.02 L C-Reactive Protein B-Natriuretic Peptide Total Protein Albumin Lipase Vitamin B12 Greater than 2000 H TSH 0.801 Urine Color Urine Clarity Urine pH Ur Specific [place] Urine Protein Urine Glucose (UA) Urine Ketones Urine Occult Blood Urine Nitrate Urine Bilirubin Urine Urobilinogen Ur Leukocyte Esterase Urine RBC Urine WBC Ur Squamous Epith Cells Urine Bacteria Hyaline Casts Urine Mucus Micro UA Comment Urine Culture Comments Nasal Screen MRSA (PCR) Blood Type Blood Type Recheck Antibody Screen MTS Gel Crossmatch 09/27/17 09/27/17 09/27/17 18:00 21:44 21:52 WBC RBC Hgb Hct MCV MCH MCHC RDW Plt Count MPV Prelim Diff (Auto) WBC Differential Seg Neuts % (Manual) Band Neuts % (Manual) Lymphocytes % (Manual) Monocytes % (Manual) Eosinophils % (Manual) Basophils % (Manual) Abs Neuts (Manual) Nucleated RBCs/100 WBC Differential Comment Dohle Bodies Platelet Estimate Platelet Morphology Target Cells Ovalocytes ESR PT INR APTT Sodium Potassium Chloride Carbon Dioxide Anion Gap BUN Creatinine Estimated GFR POC Glucose 95 Random Glucose Lactic Acid Calcium Prot Corrected Calcium Phosphorus Magnesium Iron TIBC % Saturation Ferritin Total Bilirubin AST ALT Alkaline Phosphatase Total Creatine Kinase Troponin I C-Reactive Protein B-Natriuretic Peptide Total Protein Albumin Lipase Vitamin B12 TSH Urine Color Urine Clarity Urine pH Ur Specific [place] Urine Protein Urine Glucose (UA) Urine Ketones Urine Occult Blood Urine Nitrate Urine Bilirubin Urine Urobilinogen Ur Leukocyte Esterase Urine RBC Urine WBC Ur Squamous Epith Cells Urine Bacteria Hyaline Casts Urine Mucus Micro UA Comment Urine Culture Comments Nasal Screen MRSA (PCR) Not detected Not detected Blood Type Blood Type Recheck Antibody Screen MTS Gel Crossmatch 09/28/17 09/28/17 09/28/17 05:14 05:14 05:14 WBC 1.6 L D RBC 3.20 L Hgb 8.8 L D Hct 25.8 L MCV 80.7 D MCH 27.4 MCHC 34.0 RDW 21.0 H D Plt Count 94 L D MPV 8.3 Prelim Diff (Auto) Manual diff required WBC Differential Manual diff final Seg Neuts % (Manual) 14 L Band Neuts % (Manual) 12 H Lymphocytes % (Manual) 50 H Monocytes % (Manual) 14 H Eosinophils % (Manual) 9 H Basophils % (Manual) 1 Abs Neuts (Manual) 0.4 L* Nucleated RBCs/100 WBC 8 H Differential Comment . Dohle Bodies Present H Platelet Estimate Low L Platelet Morphology Normal Target Cells 2+ H Ovalocytes 1+ H ESR PT INR APTT Sodium 143 Potassium 2.8 L* Chloride 109 H D Carbon Dioxide 20.4 L Anion Gap 14 BUN 14 Creatinine 0.77 Estimated GFR Greater than 89 POC Glucose Random Glucose 77 Lactic Acid 0.8 Calcium 7.1 L* D Prot Corrected Calcium 8.1 L Phosphorus Magnesium Iron TIBC % Saturation Ferritin Total Bilirubin 0.9 AST 18 ALT 23 Alkaline Phosphatase 114 Total Creatine Kinase Troponin I C-Reactive Protein B-Natriuretic Peptide Total Protein 5.2 L Albumin 1.2 L Lipase Vitamin B12 TSH Urine Color Urine Clarity Urine pH Ur Specific [place] Urine Protein Urine Glucose (UA) Urine Ketones Urine Occult Blood Urine Nitrate Urine Bilirubin Urine Urobilinogen Ur Leukocyte Esterase Urine RBC Urine WBC Ur Squamous Epith Cells Urine Bacteria Hyaline Casts Urine Mucus Micro UA Comment Urine Culture Comments Nasal Screen MRSA (PCR) Blood Type Blood Type Recheck Antibody Screen MTS Gel Crossmatch 09/28/17 05:15 WBC RBC Hgb Hct MCV MCH MCHC RDW Plt Count MPV Prelim Diff (Auto) WBC Differential Seg Neuts % (Manual) Band Neuts % (Manual) Lymphocytes % (Manual) Monocytes % (Manual) Eosinophils % (Manual) Basophils % (Manual) Abs Neuts (Manual) Nucleated RBCs/100 WBC Differential Comment Dohle Bodies Platelet Estimate Platelet Morphology Target Cells Ovalocytes ESR PT INR APTT Sodium Potassium Chloride Carbon Dioxide Anion Gap BUN Creatinine Estimated GFR POC Glucose Random Glucose Lactic Acid Calcium Prot Corrected Calcium Phosphorus Magnesium Iron TIBC % Saturation Ferritin Total Bilirubin AST ALT Alkaline Phosphatase Total Creatine Kinase Troponin I C-Reactive Protein 31.00 H B-Natriuretic Peptide Total Protein Albumin Lipase Vitamin B12 TSH Urine Color Urine Clarity Urine pH Ur Specific [place] Urine Protein Urine Glucose (UA) Urine Ketones Urine Occult Blood Urine Nitrate Urine Bilirubin Urine Urobilinogen Ur Leukocyte Esterase Urine RBC Urine WBC Ur Squamous Epith Cells Urine Bacteria Hyaline Casts Urine Mucus Micro UA Comment Urine Culture Comments Nasal Screen MRSA (PCR) Blood Type Blood Type Recheck Antibody Screen MTS Gel Crossmatch Culture Results: Microbiology 09/27/17 12:50 Gram Stain - Final Wound - Hip Imaging Studies: Impressions Knee CT 09/27/17 00:00 CONCLUSION: 1. Left knee arthroplasty without fracture. 2. There does appear to be a joint effusion with fluid tracking anteriorly within the knee. Knee X-Ray 09/27/17 00:00 CONCLUSION: No acute left knee abnormality is identified. Total knee arthroplasty hardware demonstrates no acute finding. Possible small joint effusion. Tibia/Fibula X-Ray 09/27/17 00:00 CONCLUSION: No acute left leg abnormality is identified. Abdomen/Pelvis CT 09/27/17 08:10 CONCLUSION: 1. Mild hepatic steatosis. 2. Thickening of the colon secondary to lack of distention versus colitis. 3. Left lower lobe consolidation and/or atelectasis. There does appear to be a 1.4 cm cavitary area which makes consolidation likely. Chest X-Ray 09/27/17 08:10 CONCLUSION: Stable chest without evidence of acute cardiopulmonary process. Postsurgical changes in the lower cervical spine following anterior fusion. Head CT 09/27/17 08:10 CONCLUSION: No acute intracranial abnormality is seen. Venous Doppler Study 09/27/17 08:12 CONCLUSION: No DVT. Chest CTA 09/27/17 08:22 CONCLUSION: 1. No pulmonary embolus. 2. Consolidation or atelectasis at the left lower lobe. Medications: Active Medications Generic Name Dose Route Start Last Admin Trade Name Freq PRN Reason Stop Dose Admin Acetaminophen 650 mg 09/27/17 23:39 09/28/17 05:10 Tylenol PO 650 mg Q4H PRN Administration Pain 1-10 Buspirone HCl 15 mg 09/27/17 20:00 09/28/17 08:11 Buspar PO 15 mg TID [facility] Administration Chlorhexidine Gluconate 3 pack 09/28/17 04:00 09/28/17 05:10 Chlorhexidine 2% Cloth TOPICAL 10/03/17 03:59 3 pack DAILY@0400 [facility] Administration Diltiazem HCl 60 mg 09/27/17 18:00 07/13/18 08:11 Cardizem PO 60 mg QID [facility] Administration Duloxetine HCl 60 mg 09/27/17 20:00 09/28/17 08:11 Cymbalta PO 60 mg DAILY [facility] Administration Hydrophilic Ointment 1 applicatio 09/27/17 21:53 09/27/17 23:40 Vaseline Oint TOPICAL 1 applicatio PRN PRN Administration skin irritation Sodium Chloride 1,000 mls @ 140 mls/hr 09/27/17 13:15 09/28/17 05:07 Ns Inj IV.CONT 140 mls/hr .Q7H9M [facility] Administration Vancomycin HCl 1,500 mg/ 515 mls @ 250 mls/hr 09/27/17 22:00 09/28/17 04:50 Sodium Chloride IV.SIG Infused Q24H [facility] Infusion Cefepime HCl 2,000 mg/ Sodium 100 mls @ 200 mls/hr 09/27/17 20:00 09/28/17 08 :09 Chloride IV.SIG 200 mls/hr Q12H [facility] Administration Fluconazole 200 mls @ 100 mls/hr 09/27/17 23:00 09/28/17 04:27 Diflucan 400 Mg Premix Bag IV.SIG Infused Q24H [facility] Infusion Potassium Chloride 20 meq in 100 mls @ 50 mls/hr 09/28/17 06:42 09/28/17 08: 10 Kcl 20 Meq Premix Inj IV.SIG 50 mls/hr Q2H PRN Administration For Potassium 2.8 - 3.2 mEq/L Ondansetron HCl 4 mg 09/27/17 13:04 09/27/17 20:54 Zofran Odt SL 4 mg Q6H PRN Administration NAUSEA OR VOMITING Pantoprazole Sodium 20 mg 09/28/17 09:00 09/28/17 08:11 Protonix PO 20 mg DAILY [facility] Administration Pravastatin Sodium 40 mg 09/27/17 18:45 09/28/17 08:11 Pravachol PO 40 mg DAILY [facility] Administration Senna/Docusate Sodium 1 tab 09/27/17 13:04 09/27/17 20:54 Kaykay-Colace PO 1 tab BID PRN Administration CONSTIPATION Sennosides 17.2 mg 09/27/17 13:04 09/27/17 20:55 Senokot PO 17.2 mg Q12H PRN Administration Moderate Constipation Trazodone HCl 100 mg 09/27/17 18:00 09/28/17 08:11 Desyrel PO 100 mg DAILY [facility] Administration Objective Remarks: GENERAL: Middle-aged female, laying in bed, appears to be no acute distress. She appears somnolent, awake and responsive. SKIN: Warm and dry, erythema of the left lower extremity is markedly improved when compared to examination performed on 09/27/2017. HEAD: Normocephalic. EYES: No scleral icterus. No injection or drainage conjunctivae are pale.. NECK: Supple, trachea midline. No JVD or lymphadenopathy. LYMPHATIC: No adenopathy. CARDIOVASCULAR: Regular rate and rhythm without murmurs. RESPIRATORY: Breath sounds equal bilaterally. No accessory muscle use. Decreased bibasilar breath sounds secondary to poor inspiratory effort. GASTROINTESTINAL: Abdomen soft, non-tender, nondistended. Ulceration noted along the folds in the midline inferior to the umbilicus as well as involving the anterior upper portion of the thigh and vulvovaginal folds with maceration of the skin noted. Ointment has been applied to these areas. EXTREMITIES: Erythema and edema improved especially on the left lower extremity.. MUSCULOSKELETAL: Adequate muscle tone. NEUROLOGICAL: No obvious focal deficit. Awake, alert, and oriented x3. PSYCHIATRIC: Somnolent, arousable. Assessment/Plan (1) Cellulitis of knee, left Code(s): L03.116 - Cellulitis of left lower limb Status: Acute (2) Sepsis Code(s): A41.9 - Sepsis, unspecified organism Status: Acute (3) Neutropenia Code(s): D70.9 - Neutropenia, unspecified Status: Acute (4) Anemia Code(s): D64.9 - Anemia, unspecified Status: Acute - Plan Ms. Mcclain is a 51-year-old female with multiple medical comorbid conditions including schizophrenia, reported history of rheumatoid arthritis, osteoarthritis. 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 Had redness swelling and purulent discharge from the incision of the left TKA for much of August into September 2017. Presents to the hospital with increased confusion and progressive weakness. Clinical examination at time of presentation revealed significant erythema and edema of the left leg, patient also found to have skin wound involving the lower abdominal skin. CT imaging of the chest revealed a cavitary lesion in the left lower lobe, CT imaging of the abdomen pelvis revealed findings consistent with colitis, CT imaging of the left knee revealed edema around the left knee with fluid tracking to the surface. Hematologic issues include unexplained anemia as well as significant neutropenia at the time of presentation. Repeat blood work performed this morning revealed new onset thrombocytopenia which in my view may in fact be related to dilution related changes. Recommendations: 1. Anemia: Has responded appropriately to red cell transfusions. I suspect the anemia is related to her acute inflammatory issues; patient's ESR was noted to be unmeasured bili high at greater than 140. 2. Neutropenia: Absolute neutrophil count noted to be 0.4 today. I suspect this also is related to severe sepsis. Some improvement in leukocyte count is appreciated. Continue broad-spectrum antibiotic coverage. Monitor blood counts closely. (2) Sepsis Qualifiers: Sepsis type: sepsis due to unspecified organism Qualified Code(s): A41.9 - Sepsis, unspecified organism (3) Neutropenia Qualifiers: Neutropenia type: unspecified Qualified Code(s): D70.9 - Neutropenia, unspecified (4) Anemia Qualifiers: Anemia type: unspecified type Qualified Code(s): D64.9 - Anemia, unspecified
--- NOTE | 2017-09-28 10:22 | P.CONPSY ---
Provisional Diagnosis Admission Date: September 27, 2017 11:56 [place] I.: Schizophrenia History of Present Illness Service: medicine Primary Care Provider: Chaz Vivar MD, R2 Family Provider: Chaz Vivar MD, R2 Chief Complaint: Shortness of breath History of Present Illness: The patient is a 51-year-old -[place] woman, domiciled with her in [place], mother of 2 adult kids, unemployed, supported by [facility], with an extensive psychiatric history of schizophrenia, previous psychiatric hospitalizations, the last hospitalization was over 5 years ago, suicide attempts, with outpatient care established with [facility], she is on Abilify 30 mg, buspirone 30 mg 3 times daily, trazodone 100 mg, benztropine 2 mg twice daily, Cymbalta 60 mg, past medical history of COPD, rheumatoid arthritis and left total knee replacement (07/26/17) who presents to the ED with complaints of worsening shortness of breath and mental status accompanied with symptoms of diarrhea (3 days, non-bloody) and decreased p.o. intake (5 days). at bedside contributed to history. Patient is poor historian. For the past 1 week patient reports progressive shortness of breath with exertion that was significantly worse this morning. reports that patient requested to be taken to the emergency room further evaluation or shortness of breath. Patients also reports worsening memory loss and psychotic behavior since second week at the rehab center after her left knee surgery. She follows with psychiatrist "Oni" for the past 7-9 years on Cymbalta and duloxetine. She has had hallucination of seeing someone at home that she believes is after her. Denies auditory hallucination or having this person talk to her. Denies suicidal ideation but endorses homicidal ideation for the person who is "out to get her". Over the past week she has developed a new rash on abdomen and groin area. Denies palpitations, increased urinary frequency. She is alert and oriented x1 (to self). EMR reviewed. Collateral information from obtained. On psychiatric evaluation I find a patient that is calm, cooperative, but evidently confused. The patient reports that she has been feeling much better. She denies symptomatology of depression, she denies anxiety, she does manic, she denies suicidal and ideation, she denies visual and auditory hallucinations. The patient does report visual hallucinations and paranoia, which is unable to elaborate about the content of her perceptual disturbances. During my evaluation she does not seem to have a significant thought process disorder, but she does have fluctuation of consciousness and some attention deficit. The patient is oriented in place, disoriented in time, unable to remember 3 objects in 5 minutes, with significant executive function and obstruction impairment. Her explains that today the patient seems to be doing better mentally, but at least for the last month the patient has been presenting memory deficit multiple psychotic symptoms. She has been compliant with her medications and psychiatric follow-ups. He confirms that she has been quite stable at least for the last 5 years. [facility] - History History Provided By: Family Member (reviewed and confirmed history again at 9 am ) - Medical History Medical History: Medical History (Last Updated 09/27/17 @ 19:01 by Nikole Washington MD, R1) Carpal tunnel syndrome on both sides Chronic neck pain H/O: hysterectomy High cholesterol Hypertension Hyperthyroidism Osteoarthritis Post hysterectomy menopause Renal disease Schizophrenia - Surgical History Surgical History: Surgical History (Last Updated 09/27/17 @ 18:21 by David Hudson MD) History of neck surgery History of total knee replacement Previous section - Tobacco History Second Hand Smoke Exposure: Yes Smoking Status: Never smoker - Alcohol History How Often Do You Have a Drink Containing Alcohol: Never - Substance Use History Substance History: No History of Abuse - Travel History Recent Travel in the [place] Within the Last 8 Weeks: No Recent Travel Out of the Country Within the Last 8 Weeks: No - Immunization History Tetanus Immunization: Unsure Hx Influenza Vaccine This Season: Yes Medications and Allergies Active Medications: Active Medications Acetaminophen (Tylenol) 650 mg PO Q4H PRN PRN Reason: Pain 1-10 Last Admin: 09/28/17 05:10 Dose: 650 mg Al Hydroxide/Mg Hydroxide (Milk Of Magneriberto Liq) 30 ml PO Q12H PRN PRN Reason: Mild Constipation Albuterol (Duoneb Neb (Prn)) 1 ampul NEB Q6HR NEB PRN PRN Reason: SHORTNESS OF BREATH Aripiprazole (Abilify) 30 mg PO DAILY [facility] Bisacodyl (Dulcolax Supp) 10 mg RECTAL DAILY PRN PRN Reason: SEVERE CONSITIPATION Buspirone HCl (Buspar) 15 mg PO TID [facility] Last Admin: 09/28/17 08:11 Dose: 15 mg Chlorhexidine Gluconate (Chlorhexidine 2% Cloth) 3 pack TOPICAL DAILY@0400 [facility] Stop: 10/03/17 03:59 Last Admin: 09/28/17 05:10 Dose: 3 pack Chlorhexidine Gluconate (Chlorhexidine 2% Cloth) 3 pack TOPICAL DAILY@0400 PRN PRN Reason: Extra cloth needed Stop: 10/03/17 03:59 Diltiazem HCl (Cardizem) 60 mg PO QID [facility] Last Admin: 09/28/17 08:11 Dose: 60 mg Duloxetine HCl (Cymbalta) 60 mg PO DAILY [facility] Last Admin: 09/28/17 08:11 Dose: 60 mg Folic Acid (Folvite Inj) 1 mg IM DAILY [facility] Hydrophilic Ointment (Vaseline Oint) 1 applicatio TOPICAL PRN PRN PRN Reason: skin irritation Last Admin: 09/27/17 23:40 Dose: 1 applicatio Sodium Chloride (Ns Inj) 1,000 mls @ 140 mls/hr IV.CONT .Q7H9M [facility] Last Admin: 09/28/17 05:07 Dose: 140 mls/hr Vancomycin HCl 1,500 mg/ (Sodium Chloride) 515 mls @ 250 mls/hr IV.SIG Q24H [facility] Last Infusion: 09/28/17 04:50 Dose: Infused Cefepime HCl 2,000 mg/ Sodium (Chloride) 100 mls @ 200 mls/hr IV.SIG Q12H [facility] Last Infusion: 09/28/17 08:39 Dose: Infused Fluconazole (Diflucan 400 Mg Premix Bag) 200 mls @ 100 mls/hr IV.SIG Q24H [facility] Last Infusion: 09/28/17 04:27 Dose: Infused Magnesium Sulfate Inj 2 gm/ (Sodium Chloride) 100 mls @ 50 mls/hr IV.SIG UNSCH PRN PRN Reason: For Magnesium 1.2 - 1.6 mg/dL Potassium Chloride (Kcl 40 Meq Premix Inj) 40 meq in 100 mls @ 25 mls/hr IV.SIG Q2H PRN PRN Reason: For Potassium 2.8 - 3.2 mEq/L Potassium Chloride (Kcl 20 Meq Premix Inj) 20 meq in 100 mls @ 50 mls/hr IV.SIG Q2H PRN PRN Reason: For Potassium 3.3 - 3.5 mEq/L Potassium Chloride (Kcl 40 Meq Premix Inj) 40 meq in 100 mls @ 25 mls/hr IV.SIG UNSCH PRN PRN Reason: For Potassium 3.3 - 3.5 mEq/L Potassium Chloride (Kcl 20 Meq Premix Inj) 20 meq in 100 mls @ 50 mls/hr IV.SIG Q2H PRN PRN Reason: For Potassium 2.8 - 3.2 mEq/L Last Admin: 09/28/17 10:08 Dose: 50 mls/hr Potassium Phosphate 30 mmol/ (Sodium Chloride) 260 mls @ 42 mls/hr IV.SIG UNSCH PRN PRN Reason: SEE LABEL COMMENTS Magnesium Sulfate Inj 4 gm/ (Sodium Chloride) 100 mls @ 50 mls/hr IV.SIG UNSCH PRN PRN Reason: For Magnesium 0.9 - 1.1 mg/dL Sodium Phosphate 30 mmol/ (Sodium Chloride) 260 mls @ 42 mls/hr IV.SIG UNSCH PRN PRN Reason: For Phosphorus < 2.5 mg/dL Lactulose (Lactulose Liq) 30 ml PO DAILY PRN PRN Reason: SEVERE CONSITIPATION Magnesium Oxide (Mag-Ox) 800 mg PO UNSCH PRN PRN Reason: For Magnesium 1.2 - 1.6 mg/dL Ondansetron HCl (Zofran Odt) 4 mg SL Q6H PRN PRN Reason: NAUSEA OR VOMITING Last Admin: 09/27/17 20:54 Dose: 4 mg Pantoprazole Sodium (Protonix) 20 mg PO DAILY [facility] Last Admin: 09/28/17 08:11 Dose: 20 mg Potassium Bicarb/Potassium Chloride (K-Lyte Cl Eff) 50 meq PO UNSCH PRN PRN Reason: For Potassium 3.3 - 3.5 mEq/L Potassium Phosphate (K-Phos Original) 2,000 mg PO Q4H PRN PRN Reason: Phosphorus Less Than 2.5 mg/dL Potassium Phosphate (K-Phos Original) 2,000 mg PO UNSCH PRN PRN Reason: SEE LABEL COMMENTS Pravastatin Sodium (Pravachol) 40 mg PO DAILY [facility] Last Admin: 09/28/17 08:11 Dose: 40 mg Senna/Docusate Sodium (Kaykay-Colace) 1 tab PO BID PRN PRN Reason: CONSTIPATION Last Admin: 09/27/17 20:54 Dose: 1 tab Sennosides (Senokot) 17.2 mg PO Q12H PRN PRN Reason: Moderate Constipation Last Admin: 09/27/17 20:55 Dose: 17.2 mg Trazodone HCl (Desyrel) 100 mg PO DAILY [facility] Last Admin: 09/28/17 08:11 Dose: 100 mg Allergies Allergy/AdvReac Type Severity Reaction Status Date / Time amoxicillin Allergy Swelling Verified 09/27/17 17:54 Home Medications Medication Instructions Recorded Confirmed Type aripiprazole 30 mg PO DAILY 09/27/17 09/27/17 History benztropine 2 mg PO BID 09/27/17 09/27/17 History buspirone 30 mg PO TID 09/27/17 09/27/17 History diclofenac sodium 75 mg PO BID 09/27/17 09/27/17 History diltiazem HCl 60 mg PO QID 09/27/17 09/27/17 History duloxetine 60 mg PO DAILY 09/27/17 09/27/17 History leflunomide 20 mg PO DAILY 09/27/17 09/27/17 History lovastatin 40 mg PO DAILY 09/27/17 09/27/17 History methotrexate 20 mg/m2 PO QWEEK 09/27/17 09/27/17 History omeprazole 20 mg PO DAILY 09/27/17 09/27/17 History tizanidine 4 mg PO TID PRN 09/27/17 09/27/17 History trazodone 100 mg PO DAILY 09/27/17 09/27/17 History Exam Vital signs: Vital Signs 09/27/17 11:10 09/27/17 12:00 09/27/17 12:15 Temperature 98.2 F Pulse Rate 110 H 110 H 110 H Respiratory Rate 18 17 18 Blood Pressure 122/57 L 119/53 L 123/65 Pulse Oximetry 99 99 09/27/17 12:56 09/27/17 14:07 09/27/17 14:35 Temperature 98.2 F 98.4 F Pulse Rate 128 H 113 H Respiratory Rate 18 19 Blood Pressure 137/58 L 165/76 H Pulse Oximetry 98 99 99 09/27/17 15:42 09/27/17 15:50 09/27/17 18:08 Temperature 98.9 F 98.8 F 98.5 F Pulse Rate 108 H 124 H 107 H Respiratory Rate 17 18 18 Blood Pressure 153/66 H 156/70 H 155/70 H Pulse Oximetry 98 100 09/27/17 18:55 09/27/17 19:18 09/27/17 20:00 Temperature 98.6 F 98.5 F Pulse Rate 104 H 110 H Respiratory Rate 20 18 Blood Pressure 155/70 H 155/70 H Pulse Oximetry 96 95 100 09/27/17 20:15 09/28/17 00:00 09/28/17 04:00 Temperature 98.5 F 98.5 F 98.9 F Pulse Rate 113 H 109 H 113 H Respiratory Rate 16 20 20 Blood Pressure 144/73 H 160/72 H 152/71 H Pulse Oximetry 100 100 100 09/28/17 05:48 09/28/17 08:00 Temperature 98 F Pulse Rate 102 H 102 H Respiratory Rate 18 18 Blood Pressure 155/72 H Pulse Oximetry 100 Intake & Output 09/27/17 09/28/17 09/28/17 18:59 06:59 18:59 Intake Total 400 / 400 4769 / 4769 200 / 200 Output Total 450 / 450 Balance 400 / 400 4319 / 4319 200 / 200 Weight 100 kg 113 kg Intake: IV 3069 / 3069 200 / 200 NS Inj 1,000 ML @ 140 mls/hr IV 1780 / 1780 .CONT .Q7H9M [facility] Rx#:[id number] Maxipime Inj 2,000 MG In NS Inj 100 / 100 100 / 100 100 ML @ 200 mls/hr IV.SIG Q12H [facility] Rx#:[id number] Diflucan 400 mg Premix Bag 200 200 / 200 ML @ 100 mls/hr IV.SIG Q24H [facility] Rx#:[id number] KCl 20 mEq Premix Inj 20 meq In 100 / 100 100 ml @ 50 mls/hr IV.SIG Q2H PRN Rx#:[id number] Vancomycin Inj 1,500 MG In NS 989 / 989 Inj 500 ML @ 250 mls/hr IV.SIG Q24H [facility] Rx#:[id number] Oral 1200 / 1200 Intake (Blood Product) Amt 400 / 400 500 / 500 Rbc As-3 Leukoreduced Unit 400 / 400 [id number] Rbc As-3 Leukoreduced Unit 400 / 400 [id number] Rbc As-3 Leukoreduced Unit 0 / 0 100 / 100 [id number] Output: Urine Amount (Catheter) 450 / 450 Indwelling Urethral Catheter 450 / 450 Other: Date of Last Bowel Movement 09/26/17 09/28/17 09/28/17 # Bowel Movements 1 Mental Status Examination Appearance: Appropriate Consciousness: Clouded Orientation: Person, Place Speech: Unremarkable Language: Adequate Fund of Knowledge: Inadequate Attention and Concentration: Easily distracted Memory: Impaired Mood: Irritable Affect: Irritable Thought Process & Associations: Intact Thought Content: Bizarre thinking Hallucination Type: None Delusion Type: Paranoid Suicidal Ideation: No Suicidal Plan: No Suicidal Intention: No Homicidal Ideation: No Homicidal Plan: No Homicidal Intention: No Insight: Fair Judgment: Impulsive Assessment and Plan - Plan Plan: Estimated LOS: [] days On psychiatric evaluation today the patient presents calm, cooperative, but evidently confused, with some attention deficit, filtration of consciousness, reporting visual hallucinations, and some paranoia. This symptomatology seems to be consistent with delirium was probably related with underlying medical conditions, but a psychotic decompensation also could be possible. this is a patient with a psychiatric history of schizophrenia, multiple psychiatric hospitalizations, suicide attempts, but she has been quite stable with her current psychotropic regimen. I am going to restart the Abilify 30 mg for psychosis is okay to continue buspirone 30 mg, trazodone 100 mg and Cymbalta 60 mg, but hold anticholinergics to avoid more cognitive impairment. My impression is that the patient is delirious and asked her medical condition improves her mentation will improve as well, but if psychosis persist beyond medical clearance, she might benefit of a psychiatric admission. I will be out of vacation next week, but I will sign out the case to my colleague Dr. Stoner to follow-up. Consult appreciated Justification for Continued Inpatient Stay: The patient might benefit of psychiatric admission if symptoms of psychosis persist beyond medical clearance.
--- NOTE | 2017-09-28 10:40 | P.HPFP ---
History of Present Illness Primary Care Physician: Chaz Vivar MD, R2 Chief Complaint: Shortness of breath History of Present Illness: Ms Mcclain is a 51-year-old female with significant past medical history of COPD, schizophrenia, rheumatoid arthritis and left total knee replacement (07/26/17) who presented to the ED with complaints of worsening shortness of breath and mental status accompanied with symptoms of diarrhea (3 days, non-bloody) and decreased p.o. intake (5 days) along with an infection of her knee that improved with Keflex p.o but now has returned with new additional drainage over the past few days. at bedside contributed to history. Patient is poor historian. For the past 1 week patient reports progressive shortness of breath with exertion that was significantly worse this morning. reports that patient requested to be taken to the emergency room for further evaluation of her shortness of breath. Denies any alleviating factors for her shortness of breath. She also reports intermittent midsternal chest pain that radiates to the left side of her neck over the last 5 days that is not anginal in pattern. Currently does not have chest pain. Endorses weakness, dysuria, headaches, subjective fevers "felt hot this morning bad", diaphoresis, chills and BL LE leg pain. She says she has not eaten anything in the last 5 days due to throat pain and loss of taste. However, she has been able to drink small amounts of liquids such as broth, water, and Gatorade. Anything heavier than soup broth made her feel nauseous and caused her to vomit. Patient reports the diarrhea has been accompanied by abdominal pain. Patients also reports worsening memory loss and psychotic behavior since second week at the rehab center after her left knee surgery. She follows with psychiatrist "Oni" for the past 7-9 years on Cymbalta and duloxetine. She has had hallucination of seeing someone at home that she believes is after her. Denies auditory hallucination or having this person talk to her. Denies suicidal ideation but endorses homicidal ideation for the person who is "out to get her". Over the past week she has developed a new rash on abdomen and groin area her noted this after she came out of rehab. He has been using Neosporin on it at home and he reported that the rash was improving. denies palpitations, increased urinary frequency. She is alert and oriented x1 (to self). Of note: Patient was discharged from rehab on August 23. After rehab she was able to ambulate on her own but for the past 3 wks has gotten weaker requiring walker to walk and most recently she has not even wanted to get out of bed. She also had Left leg swelling and large amount of purulent pus draining from the incision (purulent drainage that filled up towels and had no odor). She has been treated with po antibiotics twice daily for the past week by someone in the office due to infection of Left leg with improvement in Left lower leg swelling and drainage. (Her had a prescription for Keflex 500 mg p.o. twice daily 15 pills total). She completed a week of antibiotic treatment with last day scheduled for today with some improvement in her knee pain. However her stated that she was starting to have more drainage from her knee just over the past day or so. He had pointed to several areas that had been draining pus from just above and just below the knee. He stated that a cup full of pus would drain at a time. Because of her very low blood pressures and boluses that were required she was started on treatment for sepsis with Zosyn and vancomycin. Fortunately she responded and did not need pressors or other treatments overnight. There is a question about her abdominal wounds. According to her she saw them when she arrived home from the rehab and they may have been present for some weeks. She is now having some improvement in healing simply with Neosporin applied per her at home. - Diagnosis (1) Sepsis (2) Cellulitis of knee, left (3) Prosthetic joint infection (4) Neutropenia (5) Anemia (6) Pneumonia (7) Diarrhea (8) Schizophrenia (9) Hypertension (10) Elevated creatine kinase (11) Nutrition, metabolism, and development symptoms Inpatient Certification: I certify that the inpatient services were ordered in accordance with Medicare regulations governing the order. This includes certification that hospital inpatient services are reasonable and necessary and in the case of services not specified as inpatient-only under 42 CFR 419.22(n), that they are appropriately provided as inpatient services in accordance to with the 2-midnight benchmark under 43 CFR 412.3(e) Estimated Total Length of Stay (Days): 7 Plans for Post Hospital Care: Not yet determined Review of Systems other (pt poor historian see ROS on history per resident) [facility]LY [facility], [facility] - History History Provided By: Family Member (reviewed and confirmed history again at 9 am ) - Medical History Medical History: Medical History (Last Updated 09/27/17 @ 19:01 by Nikole Washington MD, R1) Carpal tunnel syndrome on both sides Chronic neck pain H/O: hysterectomy High cholesterol Hypertension Hyperthyroidism Osteoarthritis Post hysterectomy menopause Renal disease Schizophrenia - Surgical History Surgical History: Surgical History (Last Updated 09/27/17 @ 18:21 by David Hudson MD) History of neck surgery History of total knee replacement Previous section - Tobacco History Second Hand Smoke Exposure: Yes Smoking Status: Never smoker - Alcohol History How Often Do You Have a Drink Containing Alcohol: Never - Substance Use History Substance History: No History of Abuse - Travel History Recent Travel in the [place] Within the Last 8 Weeks: No Recent Travel Out of the Country Within the Last 8 Weeks: No - Immunization History Tetanus Immunization: Unsure Hx Influenza Vaccine This Season: Yes Medications and Allergies Active Medications: Active Medications Acetaminophen (Tylenol) 650 mg PO Q4H PRN PRN Reason: Pain 1-10 Last Admin: 09/28/17 05:10 Dose: 650 mg Al Hydroxide/Mg Hydroxide (Milk Of Cira Sims) 30 ml PO Q12H PRN PRN Reason: Mild Constipation Albuterol (Duoneb Neb (Prn)) 1 ampul NEB Q6HR NEB PRN PRN Reason: SHORTNESS OF BREATH Aripiprazole (Abilify) 30 mg PO DAILY [facility] Bisacodyl (Dulcolax Supp) 10 mg RECTAL DAILY PRN PRN Reason: SEVERE CONSITIPATION Buspirone HCl (Buspar) 15 mg PO TID [facility] Last Admin: 09/28/17 08:11 Dose: 15 mg Chlorhexidine Gluconate (Chlorhexidine 2% Cloth) 3 pack TOPICAL DAILY@0400 [facility] Stop: 10/03/17 03:59 Last Admin: 09/28/17 05:10 Dose: 3 pack Chlorhexidine Gluconate (Chlorhexidine 2% Cloth) 3 pack TOPICAL DAILY@0400 PRN PRN Reason: Extra cloth needed Stop: 10/03/17 03:59 Diltiazem HCl (Cardizem) 60 mg PO QID [facility] Last Admin: 09/28/17 08:11 Dose: 60 mg Duloxetine HCl (Cymbalta) 60 mg PO DAILY [facility] Last Admin: 09/28/17 08:11 Dose: 60 mg Folic Acid (Folvite Inj) 1 mg IM DAILY [facility] Hydrophilic Ointment (Vaseline Oint) 1 applicatio TOPICAL PRN PRN PRN Reason: skin irritation Last Admin: 09/27/17 23:40 Dose: 1 applicatio Sodium Chloride (Ns Inj) 1,000 mls @ 140 mls/hr IV.CONT .Q7H9M [facility] Last Admin: 09/28/17 05:07 Dose: 140 mls/hr Vancomycin HCl 1,500 mg/ (Sodium Chloride) 515 mls @ 250 mls/hr IV.SIG Q24H [facility] Last Infusion: 09/28/17 04:50 Dose: Infused Cefepime HCl 2,000 mg/ Sodium (Chloride) 100 mls @ 200 mls/hr IV.SIG Q12H [facility] Last Infusion: 09/28/17 08:39 Dose: Infused Fluconazole (Diflucan 400 Mg Premix Bag) 200 mls @ 100 mls/hr IV.SIG Q24H [facility] Last Infusion: 09/28/17 04:27 Dose: Infused Magnesium Sulfate Inj 2 gm/ (Sodium Chloride) 100 mls @ 50 mls/hr IV.SIG UNSCH PRN PRN Reason: For Magnesium 1.2 - 1.6 mg/dL Potassium Chloride (Kcl 40 Meq Premix Inj) 40 meq in 100 mls @ 25 mls/hr IV.SIG Q2H PRN PRN Reason: For Potassium 2.8 - 3.2 mEq/L Potassium Chloride (Kcl 20 Meq Premix Inj) 20 meq in 100 mls @ 50 mls/hr IV.SIG Q2H PRN PRN Reason: For Potassium 3.3 - 3.5 mEq/L Potassium Chloride (Kcl 40 Meq Premix Inj) 40 meq in 100 mls @ 25 mls/hr IV.SIG UNSCH PRN PRN Reason: For Potassium 3.3 - 3.5 mEq/L Potassium Chloride (Kcl 20 Meq Premix Inj) 20 meq in 100 mls @ 50 mls/hr IV.SIG Q2H PRN PRN Reason: For Potassium 2.8 - 3.2 mEq/L Last Admin: 09/28/17 10:08 Dose: 50 mls/hr Potassium Phosphate 30 mmol/ (Sodium Chloride) 260 mls @ 42 mls/hr IV.SIG UNSCH PRN PRN Reason: SEE LABEL COMMENTS Magnesium Sulfate Inj 4 gm/ (Sodium Chloride) 100 mls @ 50 mls/hr IV.SIG UNSCH PRN PRN Reason: For Magnesium 0.9 - 1.1 mg/dL Sodium Phosphate 30 mmol/ (Sodium Chloride) 260 mls @ 42 mls/hr IV.SIG UNSCH PRN PRN Reason: For Phosphorus < 2.5 mg/dL Lactulose (Lactulose Liq) 30 ml PO DAILY PRN PRN Reason: SEVERE CONSITIPATION Magnesium Oxide (Mag-Ox) 800 mg PO UNSCH PRN PRN Reason: For Magnesium 1.2 - 1.6 mg/dL Ondansetron HCl (Zofran Odt) 4 mg SL Q6H PRN PRN Reason: NAUSEA OR VOMITING Last Admin: 09/27/17 20:54 Dose: 4 mg Pantoprazole Sodium (Protonix) 20 mg PO DAILY [facility] Last Admin: 09/28/17 08:11 Dose: 20 mg Potassium Bicarb/Potassium Chloride (K-Lyte Cl Eff) 50 meq PO UNSCH PRN PRN Reason: For Potassium 3.3 - 3.5 mEq/L Potassium Phosphate (K-Phos Original) 2,000 mg PO Q4H PRN PRN Reason: Phosphorus Less Than 2.5 mg/dL Potassium Phosphate (K-Phos Original) 2,000 mg PO UNSCH PRN PRN Reason: SEE LABEL COMMENTS Pravastatin Sodium (Pravachol) 40 mg PO DAILY [facility] Last Admin: 09/28/17 08:11 Dose: 40 mg Senna/Docusate Sodium (Kaykay-Colace) 1 tab PO BID PRN PRN Reason: CONSTIPATION Last Admin: 09/27/17 20:54 Dose: 1 tab Sennosides (Senokot) 17.2 mg PO Q12H PRN PRN Reason: Moderate Constipation Last Admin: 09/27/17 20:55 Dose: 17.2 mg Trazodone HCl (Desyrel) 100 mg PO DAILY [facility] Last Admin: 09/28/17 08:11 Dose: 100 mg Allergies Allergy/AdvReac Type Severity Reaction Status Date / Time amoxicillin Allergy Swelling Verified 09/27/17 17:54 Home Medications Medication Instructions Recorded Confirmed Type aripiprazole 30 mg PO DAILY 09/27/17 09/27/17 History benztropine 2 mg PO BID 09/27/17 09/27/17 History buspirone 30 mg PO TID 09/27/17 09/27/17 History diclofenac sodium 75 mg PO BID 09/27/17 09/27/17 History diltiazem HCl 60 mg PO QID 09/27/17 09/27/17 History duloxetine 60 mg PO DAILY 09/27/17 09/27/17 History leflunomide 20 mg PO DAILY 09/27/17 09/27/17 History lovastatin 40 mg PO DAILY 09/27/17 09/27/17 History methotrexate 20 mg/m2 PO QWEEK 09/27/17 09/27/17 History omeprazole 20 mg PO DAILY 09/27/17 09/27/17 History tizanidine 4 mg PO TID PRN 09/27/17 09/27/17 History trazodone 100 mg PO DAILY 09/27/17 09/27/17 History Exam Vital signs: Vital Signs 09/27/17 11:10 09/27/17 12:00 09/27/17 12:15 Temperature 98.2 F Pulse Rate 110 H 110 H 110 H Respiratory Rate 18 17 18 Blood Pressure 122/57 L 119/53 L 123/65 Pulse Oximetry 99 99 09/27/17 12:56 09/27/17 14:07 09/27/17 14:35 Temperature 98.2 F 98.4 F Pulse Rate 128 H 113 H Respiratory Rate 18 19 Blood Pressure 137/58 L 165/76 H Pulse Oximetry 98 99 99 09/27/17 15:42 09/27/17 15:50 09/27/17 18:08 Temperature 98.9 F 98.8 F 98.5 F Pulse Rate 108 H 124 H 107 H Respiratory Rate 17 18 18 Blood Pressure 153/66 H 156/70 H 155/70 H Pulse Oximetry 98 100 09/27/17 18:55 09/27/17 19:18 09/27/17 20:00 Temperature 98.6 F 98.5 F Pulse Rate 104 H 110 H Respiratory Rate 20 18 Blood Pressure 155/70 H 155/70 H Pulse Oximetry 96 95 100 09/27/17 20:15 09/28/17 00:00 09/28/17 04:00 Temperature 98.5 F 98.5 F 98.9 F Pulse Rate 113 H 109 H 113 H Respiratory Rate 16 20 20 Blood Pressure 144/73 H 160/72 H 152/71 H Pulse Oximetry 100 100 100 09/28/17 05:48 09/28/17 08:00 09/28/17 10:00 Temperature 98 F Pulse Rate 102 H 102 H 106 H Respiratory Rate 18 18 Blood Pressure 155/72 H Pulse Oximetry 100 Intake & Output 09/27/17 09/28/17 09/28/17 18:59 06:59 18:59 Intake Total 400 / 400 4769 / 4769 200 / 200 Output Total 450 / 450 Balance 400 / 400 4319 / 4319 200 / 200 Weight 100 kg 113 kg Intake: IV 3069 / 3069 200 / 200 NS Inj 1,000 ML @ 140 mls/hr IV 1780 / 1780 .CONT .Q7H9M [facility] Rx#:[id number] Maxipime Inj 2,000 MG In NS Inj 100 / 100 100 / 100 100 ML @ 200 mls/hr IV.SIG Q12H [facility] Rx#:[id number] Diflucan 400 mg Premix Bag 200 200 / 200 ML @ 100 mls/hr IV.SIG Q24H [facility] Rx#:[id number] KCl 20 mEq Premix Inj 20 meq In 100 / 100 100 ml @ 50 mls/hr IV.SIG Q2H PRN Rx#:[id number] Vancomycin Inj 1,500 MG In NS 989 / 989 Inj 500 ML @ 250 mls/hr IV.SIG Q24H [facility] Rx#:[id number] Oral 1200 / 1200 Intake (Blood Product) Amt 400 / 400 500 / 500 Rbc As-3 Leukoreduced Unit 400 / 400 [id number] Rbc As-3 Leukoreduced Unit 400 / 400 [id number] Rbc As-3 Leukoreduced Unit 0 / 0 100 / 100 [id number] Output: Urine Amount (Catheter) 450 / 450 Indwelling Urethral Catheter 450 / 450 Other: Date of Last Bowel Movement 09/26/17 09/28/17 09/28/17 # Bowel Movements 1 - Constitutional no acute distress, obese, cooperative - Routine HEENT Exam Head: Present: normocephalic, atraumatic Eye: Present: EOMI, PERRL. Absent: conjunctival icterus, scleral injection, periorbital ecchymosis, periorbital tenderness, nystagmus, exophthalmos, proptosis ENT: Present: mucous membranes moist, oropharynx clear, nares patent, external ear normal - Routine Neck Exam Present: supple, full ROM, trachea midline. Absent: carotid bruit - Routine Chest/Breast/Axilla Exam Chest wall: Absent: tenderness, chest tube - Routine Respiratory Exam Present: rhonchi. Absent: accessory muscle use, patient mechanically ventilated , decreased breath sounds, prolonged expiratory phase, respiratory distress, stridor, wheezes - Routine Cardiovascular Exam Present: RRR. Absent: murmur, gallop, rubs, bradycardia, tachycardia, irregular rhythm, irregularly irregular - Routine Abdominal Exam Present: soft, normoactive bowel sounds, distended, wound (macerated areas where the skin touches lower abdomen). Absent: tenderness, rebound, guarding, firm, rigid, drain - Routine Extremities Exam Present: full ROM, tenderness, joint swelling. Absent: cyanosis, clubbing, edema, calf tenderness - Routine Skin Exam Present: dry, pallor, warm, normal turgor. Absent: cyanosis, erythema, mottling , petechiae, urticaria, jaundice - Routine Neurological Exam Present: alert, CN II-XII intact, altered mental status, moving all extremities , normal tone. Absent: sensory deficit, motor deficit, clonus, tremors Results - Labs Result diagrams: 09/28/17 05:14 09/28/17 05:14 Abnormal lab results 09/27/17 09/27/17 09/27/17 Range/Units 08:10 10:20 11:27 WBC (4.0-11.0) th/mm3 RBC (4.00-5.30) mil/mm3 Hgb (11.6-15.3) gm/dL Hct (35.0-46.0) % RDW (11.6-17.2) % Plt Count (150-450) th/mm3 Seg Neuts % (Manual) (16-70) % Band Neuts % (Manual) (0-6) % Lymphocytes % (Manual) (9-44) % Monocytes % (Manual) (0-8) % Eosinophils % (Manual) (0-4) % Abs Neuts (Manual) (1.8-7.7) th/mm3 Nucleated RBCs/100 WBC (0-0) /100 WBC Dohle Bodies (None) Platelet Estimate (Normal) Target Cells (None) Ovalocytes (None) ESR Greater than 140 H (0-30) mm/hr Potassium (3.5-5.1) meq/L Chloride (98-107) meq/L Carbon Dioxide (21.0-32.0) meq/L Lactic Acid 3.1 H (0.4-2.0) mmol/L Calcium (8.5-10.1) mg/dL Prot Corrected Calcium (8.5-10.1) mg/dL Iron (50-170) mcg/dL TIBC (250-450) mcg/dL % Saturation (20-50) % Ferritin (8-252) ng/mL Troponin I (0.02-0.05) ng/mL C-Reactive Protein (0.00-0.30) mg/dL Total Protein (6.4-8.2) g/dL Albumin (3.4-5.0) g/dL Vitamin B12 (193-986) pg/mL MTS Gel Crossmatch See Detail 09/27/17 09/27/17 09/28/17 Range/Units 15:00 15:10 05:14 WBC 1.6 L D (4.0-11.0) th/mm3 RBC 3.20 L (4.00-5.30) mil/mm3 Hgb 8.8 L D (11.6-15.3) gm/dL Hct 25.8 L (35.0-46.0) % RDW 21.0 H D (11.6-17.2) % Plt Count 94 L D (150-450) th/mm3 Seg Neuts % (Manual) 14 L (16-70) % Band Neuts % (Manual) 12 H (0-6) % Lymphocytes % (Manual) 50 H (9-44) % Monocytes % (Manual) 14 H (0-8) % Eosinophils % (Manual) 9 H (0-4) % Abs Neuts (Manual) 0.4 L* (1.8-7.7) th/mm3 Nucleated RBCs/100 WBC 8 H (0-0) /100 WBC Dohle Bodies Present H (None) Platelet Estimate Low L (Normal) Target Cells 2+ H (None) Ovalocytes 1+ H (None) ESR (0-30) mm/hr Potassium (3.5-5.1) meq/L Chloride (98-107) meq/L Carbon Dioxide (21.0-32.0) meq/L Lactic Acid (0.4-2.0) mmol/L Calcium (8.5-10.1) mg/dL Prot Corrected Calcium (8.5-10.1) mg/dL Iron 9 L (50-170) mcg/dL TIBC 168 L (250-450) mcg/dL % Saturation 5.4 L (20-50) % Ferritin 1768 H (8-252) ng/mL Troponin I Less than 0.02 L (0.02-0.05) ng/mL C-Reactive Protein (0.00-0.30) mg/dL Total Protein (6.4-8.2) g/dL Albumin (3.4-5.0) g/dL Vitamin B12 Greater than 2000 H (193-986) pg/mL MTS Gel Crossmatch 09/28/17 09/28/17 Range/Units 05:14 05:15 WBC (4.0-11.0) th/mm3 RBC (4.00-5.30) mil/mm3 Hgb (11.6-15.3) gm/dL Hct (35.0-46.0) % RDW (11.6-17.2) % Plt Count (150-450) th/mm3 Seg Neuts % (Manual) (16-70) % Band Neuts % (Manual) (0-6) % Lymphocytes % (Manual) (9-44) % Monocytes % (Manual) (0-8) % Eosinophils % (Manual) (0-4) % Abs Neuts (Manual) (1.8-7.7) th/mm3 Nucleated RBCs/100 WBC (0-0) /100 WBC Dohle Bodies (None) Platelet Estimate (Normal) Target Cells (None) Ovalocytes (None) ESR (0-30) mm/hr Potassium 2.8 L* (3.5-5.1) meq/L Chloride 109 H D (98-107) meq/L Carbon Dioxide 20.4 L (21.0-32.0) meq/L Lactic Acid (0.4-2.0) mmol/L Calcium 7.1 L* D (8.5-10.1) mg/dL Prot Corrected Calcium 8.1 L (8.5-10.1) mg/dL Iron (50-170) mcg/dL TIBC (250-450) mcg/dL % Saturation (20-50) % Ferritin (8-252) ng/mL Troponin I (0.02-0.05) ng/mL C-Reactive Protein 31.00 H (0.00-0.30) mg/dL Total Protein 5.2 L (6.4-8.2) g/dL Albumin 1.2 L (3.4-5.0) g/dL Vitamin B12 (193-986) pg/mL MTS Gel Crossmatch Short CBC 09/28/17 Range/Units 05:14 WBC 1.6 L D (4.0-11.0) th/mm3 Hgb 8.8 L D (11.6-15.3) gm/dL Hct 25.8 L (35.0-46.0) % Plt Count 94 L D (150-450) th/mm3 BMP 09/28/17 05:14 Sodium 143 Potassium 2.8 L* Chloride 109 H D Carbon Dioxide 20.4 L BUN 14 Creatinine 0.77 Calcium 7.1 L* D Cardiac Enzymes 09/27/17 09/27/17 Range/Units 15:00 15:10 Troponin I Cancelled Less than 0.02 L Liver Function 09/28/17 Range/Units 05:14 Total Bilirubin 0.9 (0.2-1.0) mg/dL AST 18 (15-37) U/L ALT 23 (10-53) U/L Alkaline Phosphatase 114 (45-117) U/L Albumin 1.2 L (3.4-5.0) g/dL - Imaging Impressions Knee CT 09/27/17 00:00 CONCLUSION: 1. Left knee arthroplasty without fracture. 2. There does appear to be a joint effusion with fluid tracking anteriorly within the knee. Knee X-Ray 09/27/17 00:00 CONCLUSION: No acute left knee abnormality is identified. Total knee arthroplasty hardware demonstrates no acute finding. Possible small joint effusion. Tibia/Fibula X-Ray 09/27/17 00:00 CONCLUSION: No acute left leg abnormality is identified. Caprini VTE Risk Assessment Caprini VTE Risk Assessment: Moderate/High Risk (score >= 2) Caprini Risk Assessment Model: Point Value = 1 Point Value = 2 Point Value = 3 Point Value = 5 Age 41-60 Minor surgery BMI > 25 kg/m2 Swollen legs Varicose veins or History of unexplained or recurrent spontaneous Oral contraceptives or hormone replacement Sepsis (< 1 month) Serious lung disease, including pneumonia (< 1 month) Abnormal pulmonary function Acute myocardial infarction Congestive heart failure (< 1 month) History of inflammatory bowel disease Medical patient at bed rest Age 61-74 Arthroscopic surgery Major open surgery (> 45 min) Laparoscopic surgery (> 45 min) Malignancy Confined to bed (> 72 hours) Immobilizing plaster cast Central venous access Age >= 75 History of VTE Family history of VTE Factor V Leiden Prothrombin [id number] Lupus anticoagulant Anticardiolipin antibodies Elevated serum homocysteine Heparin-induced thrombocytopenia Other congenital or acquired thrombophilia Stroke (< 1 month) Elective arthroplasty Hip, pelvis, or leg fracture Acute spinal cord injury (< 1 month) Prophylaxis Regimen: Total Risk Factor Score Risk Level Prophylaxis Regimen 0-1 Low Early ambulation 2 Moderate Order ONE of the following: *Sequential Compression Device (SCD) *Heparin 5000 units SQ BID 3-4 Higher Order ONE of the following medications: *Heparin 5000 units SQ TID *Enoxaparin/Lovenox 40 mg SQ daily (WT < 150 kg, CrCl > 30 mL/min) *Enoxaparin/Lovenox 30 mg SQ daily (WT < 150 kg, CrCl > 10-29 mL/min) *Enoxaparin/Lovenox 30 mg SQ BID (WT < 150 kg, CrCl > 30 mL/min) AND/OR *Sequential Compression Device (SCD) 5 or more Highest Order ONE of the following medications: *Heparin 5000 units SQ TID (Preferred with Epidurals) *Enoxaparin/Lovenox 40 mg SQ daily (WT < 150 kg, CrCl > 30 mL/min) *Enoxaparin/Lovenox 30 mg SQ daily (WT < 150 kg, CrCl > 10-29 mL/min) *Enoxaparin/Lovenox 30 mg SQ BID (WT < 150 kg, CrCl > 30 mL/min) AND *Sequential Compression Device (SCD) Assessment and Plan - Assessment (1) Sepsis Code(s): A41.9 - Sepsis, unspecified organism Status: Acute Plan: On admission patient found to be in severe sepsis with tachycardia (110), new onset neutropenia (WBC 0.9), Lactic acid of 3.1, and AMS. Probable source is thought to be pulmonary and/or cellulitis or prosthetic joint infection of left leg or knee, respectively. Patient is alert and oriented only to self. On exam no acute distress. No neurological deficits noted. In the ED patient received 2 L of normal saline, vancomycin 1 g x1 and Zosyn 4.5 g x1. Chest CTA: No evidence of pulmonary embolism. Atelectasis or consolidation of left lower lobe. Head CT: No acute intracranial abnormality seen. CT abdomen/pelvis with IV contrast: Mild hepatic steatosis, thickening of colon secondary to lack of his tension versus colitis. Lower lobe consolidation or atelectasis. Consolidation more likely due to 1.4 cm cavitary area in the left lower lung. UA negative Continue with Vanc and cefepime for broad-spectrum coverage Infectious disease consulted, appreciate recommendations I am concerned about the history of cups of pus coming out of her knee where she had the surgery. If she had an infection it has only been likely partially treated. It is concerning that initially she could walk and bend her knee properly and then was unable to continue with physical therapy. Her ESR is greater than 140 which could suggest a serious infection possibly even osteomyelitis vs other problems. Per hematology she does not appear to have a malignancy at this time. I greatly appreciate the help of infectious disease as this patient has had 2 prior rounds of antibiotics including amoxicillin and Keflex. Now she is being treated with antibiotics and it would be difficult to establish a organism and know exactly how to proceed with her infection and treatment. Follow-up: blood cultures, urine cultures, wound culture obtained from clear discharge of small wound of left knee Lactic acid A.m. labs (2) Cellulitis of knee, left Code(s): L03.116 - Cellulitis of left lower limb Status: Acute Plan: See plan above for sepsis. Her states that there was drainage from the knee and infection for weeks. she has taken approximately 2 weeks of p.o. Keflex 500 mg. I am concerned about a partially treated knee infection (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 - Infection and inflammatory reaction due to unspecified internal joint prosthesis, initial encounter Status: Suspected Plan: Patient with history of total left knee replacement in July 26, 2017. She completed rehabilitation and was discharged home August 23. Patient recently treated with antibiotics for left leg infection. Swelling and purulent discharge from incision has improved according to . ESR elevated at greater than 140 Consider orthopedic consultation for further evaluation See plan above for sepsis (4) Neutropenia Code(s): D70.9 - Neutropenia, unspecified Status: Acute Plan: Patient presenting with new onset neutropenia with WBC of (0.9). Prior blood work reviewed and white blood cells were within normal limits. Neutropenia possibly due to sepsis, psychotic medications or bone marrow malignancy. Continue to monitor WBC Patient placed on neutropenic precautions Hematology consulted, appreciate recommendations Have held all of her rheumatologic medicines including methotrexate and the unknown biologic that she was taking. There is a concern about her multiple psychiatric medicines possibly causing the neutropenia as well. However she has been hallucinating in the hospital and will appreciate a psychiatric consult to see if she can get away with fever medicines or if there is anything else that could be done. If her neutropenia and pulmonary suppression is from her rheumatologic medicine than the psych medicines should not cause any further problems. (5) Anemia Code(s): D64.9 - Anemia, unspecified Status: Acute Plan: Patient with new onset anemia. On admission H&H found to be 5.5/16.3. On review of chart patient had baseline H&H of 8.2/24 on July/2017. Patient denies any blood in her stool. In the ED patient was found to be guaiac negative. Plan for packed red blood cell transfusion Suspect bone marrow suppression possibly from her rheumatologic medicines versus some of her other medications including her psychiatric medicines. Follow-up: Iron studies Posttransfusion H&H (6) Pneumonia Code(s): J18.9 - Pneumonia, unspecified organism Status: Acute Plan: Patient found to have left lower lobe consolidation on chest CTA. Follow-up: Legionella and pneumococcal urinary antigen See plan above for sepsis (7) Diarrhea Code(s): R19.7 - Diarrhea, unspecified Status: Acute Plan: Patient with 3-day history of diarrhea in the setting of recent antibiotic use. Follow-up C. difficile PCR Improved today. (8) Schizophrenia Code(s): F20.9 - Schizophrenia, unspecified Status: Chronic Plan: Patient with chronic history of schizophrenia. Patient with active hallucinations of seeing someone out to get her. On exam patient was calm and cooperative at time with circumstantial speech pattern. Denies suicidal ideation however endorsed that she will get whoever was after her. Denied auditory or tactile hallucinations. Continue to monitor Consider one-to-one sitter if patient becomes agitated Hold psychiatric medications that can have suppressive effect on bone marrow Consider psychiatry evaluation for adjustment of psychiatric medications clinically stable She was seen by psychiatry and her medication has been adjusted if she continues to have bone marrow suppression we may need to revisit this issue as her rheumatologic medications could be the likely source of her problem. (9) Hypertension Code(s): I10 - Essential (primary) hypertension Status: Acute Plan: Continue to monitor Resume home medication (10) Elevated creatine kinase Code(s): R74.8 - Abnormal levels of other serum enzymes Status: Acute Plan: Patient with increased creatinine of 1.5 Continue with IV fluids at maintenance Continue to monitor Avoid nephrotoxic agents (11) Nutrition, metabolism, and development symptoms Code(s): R63.8 - Other symptoms and signs concerning food and fluid intake Status: Acute Plan: Fluids: She received 2 L bolus of IV fluid in the ED, continue with maintenance at 140mls/hr. her blood pressure is doing well today even on the high side. Can Hep-Lock her fluid as she is taking much better p.o. today versus her vomiting at home. She is off about 5 L by was dehydrated with her vomiting and inability to take p.o. as well as her sepsis. Electrolytes: Replete as needed Nutrition: Patient passed bedside swallow evaluation, resume cardiac diet as tolerated. DVT prophylaxis: Heparin SQ every 8hr (1) Sepsis Qualifiers: Sepsis type: sepsis due to unspecified organism Qualified Code(s): A41.9 - Sepsis, unspecified organism (4) Neutropenia Qualifiers: Neutropenia type: unspecified Qualified Code(s): D70.9 - Neutropenia, unspecified (5) Anemia Qualifiers: Anemia type: unspecified type Qualified Code(s): D64.9 - Anemia, unspecified (6) Pneumonia Qualifiers: Pneumonia type: due to unspecified organism Laterality: left Lung location: lower lobe of lung Qualified Code(s): J18.1 - Lobar pneumonia, unspecified organism (9) Hypertension Qualifiers: Hypertension type: essential hypertension Qualified Code(s): I10 - Essential (primary) hypertension
--- NOTE | 2017-09-28 11:28 | P.CONID ---
History of Present Illness Service: ID Consult date: 09/29/17 Requesting Physician: Maddy Jackson Reason for Consult: Evaluation and Mment of Neutropenia, Hardware infection Primary Care Provider: Chaz Vivar MD, R2 Family Provider: Chaz Vivar MD, R2 Chief Complaint: Shortness of breath History of Present Illness: Ms Mcclain is a 51-year-old female with significant past medical history of COPD, schizophrenia, rheumatoid arthritis and left total knee replacement (07/26/17). Post op it appears she was discharged to a rehab. She was discharged from the rehab to home with her on August 23. Patient reports she lives at home with her who is on disability. Unsure of nature of disability at this time and his ability to take care of her. She was reportedly able to ambulate on her own initially followed by weakness and need for walker and then to a point where she did not want to get out of bed. It has been reported to others that she had some discharge at the left surgical site area and ortho surgeon prescribed oral keflex which reportedly lead to some improvement. She reportedly completed a week of antibiotic treatment with last day scheduled for today with some improvement in her knee pain. However her stated that she was starting to have more drainage from her knee just over the past day or so. He had pointed to several areas that had been draining pus from just above and just below the knee. He stated that a cup full of pus would drain at a time. Additionally the abdominal fold wounds appear to have been present for atleast 3 weeks now. Additionally patient has a psychiatric history and is on medications such as Cymbalta and Abilify. She actively hallucinates per dw resident team and psych would like to resume her meds that are on hold due to severe neutropenia. With this background patient presents to the ED with complaints of worsening shortness of breath and mental status accompanied with symptoms of diarrhea (3 days, non-bloody) and decreased p.o. intake (5 days). She was also brought into the hospital due to infection of her knee that improved with Keflex p.o but now has returned with new additional drainage over the past few days. Pertinent positives: Weakness, dysuria, headaches, subjective fevers. History of diaphoresis, chills and bilateral leg pain. Difficulty swallowing, odynophagia like symptoms and loss of taste. history of nausea and vomiting. Diarrhea, abdominal pain. ID consulted for evaluation and Mment of Left knee prosthetic joint infection and neutropenia. Review of Systems All other systems reviewed negative except as stated in HPI PMFSH - History History Provided By: Family Member (reviewed and confirmed history again at 9 am ) - Medical History Medical History: Medical History (Last Updated 09/27/17 @ 19:01 by Nikole Washington MD, R1) Carpal tunnel syndrome on both sides Chronic neck pain H/O: hysterectomy High cholesterol Hypertension Hyperthyroidism Osteoarthritis Post hysterectomy menopause Renal disease Schizophrenia - Surgical History Surgical History: Surgical History (Last Updated 09/27/17 @ 18:21 by David Hudson MD) History of neck surgery History of total knee replacement Previous section - Tobacco History Second Hand Smoke Exposure: Yes Smoking Status: Never smoker - Alcohol History How Often Do You Have a Drink Containing Alcohol: Never - Substance Use History Substance History: No History of Abuse - Travel History Recent Travel in the [place] Within the Last 8 Weeks: No Recent Travel Out of the Country Within the Last 8 Weeks: No - Immunization History Tetanus Immunization: Unsure Hx Influenza Vaccine This Season: Yes Medications and Allergies Active Medications: Active Medications Acetaminophen (Tylenol) 650 mg PO Q4H PRN PRN Reason: Pain 1-10 Last Admin: 09/28/17 05:10 Dose: 650 mg Al Hydroxide/Mg Hydroxide (Milk Of Cira Sims) 30 ml PO Q12H PRN PRN Reason: Mild Constipation Albuterol (Duoneb Neb (Prn)) 1 ampul NEB Q6HR NEB PRN PRN Reason: SHORTNESS OF BREATH Aripiprazole (Abilify) 30 mg PO DAILY [facility] Bisacodyl (Dulcolax Supp) 10 mg RECTAL DAILY PRN PRN Reason: SEVERE CONSITIPATION Buspirone HCl (Buspar) 15 mg PO TID [facility] Last Admin: 09/28/17 08:11 Dose: 15 mg Chlorhexidine Gluconate (Chlorhexidine 2% Cloth) 3 pack TOPICAL DAILY@0400 [facility] Stop: 10/03/17 03:59 Last Admin: 09/28/17 05:10 Dose: 3 pack Chlorhexidine Gluconate (Chlorhexidine 2% Cloth) 3 pack TOPICAL DAILY@0400 PRN PRN Reason: Extra cloth needed Stop: 10/03/17 03:59 Diltiazem HCl (Cardizem) 60 mg PO QID [facility] Last Admin: 09/28/17 08:11 Dose: 60 mg Duloxetine HCl (Cymbalta) 60 mg PO DAILY [facility] Last Admin: 09/28/17 08:11 Dose: 60 mg Folic Acid (Folvite Inj) 1 mg IM DAILY [facility] Hydrophilic Ointment (Vaseline Oint) 1 applicatio TOPICAL PRN PRN PRN Reason: skin irritation Last Admin: 09/27/17 23:40 Dose: 1 applicatio Sodium Chloride (Ns Inj) 1,000 mls @ 140 mls/hr IV.CONT .Q7H9M [facility] Last Admin: 09/28/17 05:07 Dose: 140 mls/hr Vancomycin HCl 1,500 mg/ (Sodium Chloride) 515 mls @ 250 mls/hr IV.SIG Q24H [facility] Last Infusion: 09/28/17 04:50 Dose: Infused Cefepime HCl 2,000 mg/ Sodium (Chloride) 100 mls @ 200 mls/hr IV.SIG Q12H [facility] Last Infusion: 09/28/17 08:39 Dose: Infused Fluconazole (Diflucan 400 Mg Premix Bag) 200 mls @ 100 mls/hr IV.SIG Q24H [facility] Last Infusion: 09/28/17 04:27 Dose: Infused Magnesium Sulfate Inj 2 gm/ (Sodium Chloride) 100 mls @ 50 mls/hr IV.SIG UNSCH PRN PRN Reason: For Magnesium 1.2 - 1.6 mg/dL Potassium Chloride (Kcl 40 Meq Premix Inj) 40 meq in 100 mls @ 25 mls/hr IV.SIG Q2H PRN PRN Reason: For Potassium 2.8 - 3.2 mEq/L Potassium Chloride (Kcl 20 Meq Premix Inj) 20 meq in 100 mls @ 50 mls/hr IV.SIG Q2H PRN PRN Reason: For Potassium 3.3 - 3.5 mEq/L Potassium Chloride (Kcl 40 Meq Premix Inj) 40 meq in 100 mls @ 25 mls/hr IV.SIG UNSCH PRN PRN Reason: For Potassium 3.3 - 3.5 mEq/L Potassium Chloride (Kcl 20 Meq Premix Inj) 20 meq in 100 mls @ 50 mls/hr IV.SIG Q2H PRN PRN Reason: For Potassium 2.8 - 3.2 mEq/L Last Admin: 09/28/17 10:08 Dose: 50 mls/hr Potassium Phosphate 30 mmol/ (Sodium Chloride) 260 mls @ 42 mls/hr IV.SIG UNSCH PRN PRN Reason: SEE LABEL COMMENTS Magnesium Sulfate Inj 4 gm/ (Sodium Chloride) 100 mls @ 50 mls/hr IV.SIG UNSCH PRN PRN Reason: For Magnesium 0.9 - 1.1 mg/dL Sodium Phosphate 30 mmol/ (Sodium Chloride) 260 mls @ 42 mls/hr IV.SIG UNSCH PRN PRN Reason: For Phosphorus < 2.5 mg/dL Lactulose (Lactulose Liq) 30 ml PO DAILY PRN PRN Reason: SEVERE CONSITIPATION Magnesium Oxide (Mag-Ox) 800 mg PO UNSCH PRN PRN Reason: For Magnesium 1.2 - 1.6 mg/dL Ondansetron HCl (Zofran Odt) 4 mg SL Q6H PRN PRN Reason: NAUSEA OR VOMITING Last Admin: 09/27/17 20:54 Dose: 4 mg Pantoprazole Sodium (Protonix) 20 mg PO DAILY [facility] Last Admin: 09/28/17 08:11 Dose: 20 mg Potassium Bicarb/Potassium Chloride (K-Lyte Cl Eff) 50 meq PO UNSCH PRN PRN Reason: For Potassium 3.3 - 3.5 mEq/L Potassium Phosphate (K-Phos Original) 2,000 mg PO Q4H PRN PRN Reason: Phosphorus Less Than 2.5 mg/dL Potassium Phosphate (K-Phos Original) 2,000 mg PO UNSCH PRN PRN Reason: SEE LABEL COMMENTS Pravastatin Sodium (Pravachol) 40 mg PO DAILY [facility] Last Admin: 09/28/17 08:11 Dose: 40 mg Senna/Docusate Sodium (Kaykay-Colace) 1 tab PO BID PRN PRN Reason: CONSTIPATION Last Admin: 09/27/17 20:54 Dose: 1 tab Sennosides (Senokot) 17.2 mg PO Q12H PRN PRN Reason: Moderate Constipation Last Admin: 09/27/17 20:55 Dose: 17.2 mg Trazodone HCl (Desyrel) 100 mg PO DAILY [facility] Last Admin: 09/28/17 08:11 Dose: 100 mg Allergies Allergy/AdvReac Type Severity Reaction Status Date / Time amoxicillin Allergy Swelling Verified 09/27/17 17:54 Home Medications Medication Instructions Recorded Confirmed Type aripiprazole 30 mg PO DAILY 09/27/17 09/27/17 History benztropine 2 mg PO BID 09/27/17 09/27/17 History buspirone 30 mg PO TID 09/27/17 09/27/17 History diclofenac sodium 75 mg PO BID 09/27/17 09/27/17 History diltiazem HCl 60 mg PO QID 09/27/17 09/27/17 History duloxetine 60 mg PO DAILY 09/27/17 09/27/17 History leflunomide 20 mg PO DAILY 09/27/17 09/27/17 History lovastatin 40 mg PO DAILY 09/27/17 09/27/17 History methotrexate 20 mg/m2 PO QWEEK 09/27/17 09/27/17 History omeprazole 20 mg PO DAILY 09/27/17 09/27/17 History tizanidine 4 mg PO TID PRN 09/27/17 09/27/17 History trazodone 100 mg PO DAILY 09/27/17 09/27/17 History Exam Vital signs: Vital Signs 09/27/17 12:00 09/27/17 12:15 09/27/17 12:56 Temperature 98.2 F 98.2 F Pulse Rate 110 H 110 H 128 H Respiratory Rate 17 18 18 Blood Pressure 119/53 L 123/65 137/58 L Pulse Oximetry 99 99 98 09/27/17 14:07 09/27/17 14:35 09/27/17 15:42 Temperature 98.4 F 98.9 F Pulse Rate 113 H 108 H Respiratory Rate 19 17 Blood Pressure 165/76 H 153/66 H Pulse Oximetry 99 99 98 09/27/17 15:50 09/27/17 18:08 09/27/17 18:55 Temperature 98.8 F 98.5 F 98.6 F Pulse Rate 124 H 107 H 104 H Respiratory Rate 18 18 20 Blood Pressure 156/70 H 155/70 H 155/70 H Pulse Oximetry 100 96 09/27/17 19:18 09/27/17 20:00 09/27/17 20:15 Temperature 98.5 F 98.5 F Pulse Rate 110 H 113 H Respiratory Rate 18 16 Blood Pressure 155/70 H 144/73 H Pulse Oximetry 95 100 100 09/28/17 00:00 09/28/17 04:00 09/28/17 05:48 Temperature 98.5 F 98.9 F Pulse Rate 109 H 113 H 102 H Respiratory Rate 20 20 18 Blood Pressure 160/72 H 152/71 H Pulse Oximetry 100 100 09/28/17 08:00 09/28/17 10:00 Temperature 98 F Pulse Rate 102 H 106 H Respiratory Rate 18 Blood Pressure 155/72 H Pulse Oximetry 100 Intake & Output 09/27/17 09/28/17 09/28/17 18:59 06:59 18:59 Intake Total 400 / 400 4769 / 4769 200 / 200 Output Total 450 / 450 Balance 400 / 400 4319 / 4319 200 / 200 Weight 100 kg 113 kg Intake: IV 3069 / 3069 200 / 200 NS Inj 1,000 ML @ 140 mls/hr IV 1780 / 1780 .CONT .Q7H9M [facility] Rx#:[id number] Maxipime Inj 2,000 MG In NS Inj 100 / 100 100 / 100 100 ML @ 200 mls/hr IV.SIG Q12H [facility] Rx#:[id number] Diflucan 400 mg Premix Bag 200 200 / 200 ML @ 100 mls/hr IV.SIG Q24H [facility] Rx#:[id number] KCl 20 mEq Premix Inj 20 meq In 100 / 100 100 ml @ 50 mls/hr IV.SIG Q2H PRN Rx#:[id number] Vancomycin Inj 1,500 MG In NS 989 / 989 Inj 500 ML @ 250 mls/hr IV.SIG Q24H [facility] Rx#:[id number] Oral 1200 / 1200 Intake (Blood Product) Amt 400 / 400 500 / 500 Rbc As-3 Leukoreduced Unit 400 / 400 [id number] Rbc As-3 Leukoreduced Unit 400 / 400 [id number] Rbc As-3 Leukoreduced Unit 0 / 0 100 / 100 [id number] Output: Urine Amount (Catheter) 450 / 450 Indwelling Urethral Catheter 450 / 450 Other: Date of Last Bowel Movement 09/26/17 09/28/17 09/28/17 # Bowel Movements 1 Narrative: GENERAL: Obese well developed, not in acute CP distress SKIN: Cool and dry, no generalized rash. Skin in the groin and inner thigh folds with desquamation noted.Erythema, tenderness and grayish discharge noted On Mons pubis patient had tenderness and swelling but no induration. HEAD: Atraumatic. Normocephalic. No temporal or scalp tenderness. EYES: Pupils equal round and reactive. Scleral icterus. No injection or drainage. No petechia ENT: Nothing abnormal detected NECK: Trachea midline. Supple, nontender, no meningeal signs. CARDIOVASCULAR: HS audible. RESPIRATORY: AE bilaterally,CTA BL MUSCULOSKELETAL: Left knee with surgical scar intact no erythema or tenderness noted. Slightly above the knee and below the knee there was an area of tenderness noted, with induration. Bilateral Pedal edema noted. Psych cooperative,hallucinating. IV line sites ok. Results - Labs CBC & Chem 7: 09/29/17 04:40 09/29/17 04:40 Labs: Laboratory Results - last 24 hr 09/27/17 09/27/17 09/27/17 08:10 11:27 15:00 WBC RBC Hgb Hct MCV MCH MCHC RDW Plt Count MPV Prelim Diff (Auto) WBC Differential Seg Neuts % (Manual) Band Neuts % (Manual) Lymphocytes % (Manual) Monocytes % (Manual) Eosinophils % (Manual) Basophils % (Manual) Abs Neuts (Manual) Nucleated RBCs/100 WBC Differential Comment Dohle Bodies Platelet Estimate Platelet Morphology Target Cells Ovalocytes ESR Greater than 140 H Sodium Potassium Chloride Carbon Dioxide Anion Gap BUN Creatinine Estimated GFR POC Glucose Random Glucose Lactic Acid Calcium Prot Corrected Calcium Iron TIBC % Saturation Ferritin Total Bilirubin AST ALT Alkaline Phosphatase Troponin I Cancelled C-Reactive Protein Total Protein Albumin Vitamin B12 TSH Nasal Screen MRSA (PCR) MTS Gel Crossmatch See Detail 09/27/17 09/27/17 09/27/17 15:00 15:00 15:00 WBC RBC Hgb Hct MCV MCH MCHC RDW Plt Count MPV Prelim Diff (Auto) WBC Differential Seg Neuts % (Manual) Band Neuts % (Manual) Lymphocytes % (Manual) Monocytes % (Manual) Eosinophils % (Manual) Basophils % (Manual) Abs Neuts (Manual) Nucleated RBCs/100 WBC Differential Comment Dohle Bodies Platelet Estimate Platelet Morphology Target Cells Ovalocytes ESR Sodium Potassium Chloride Carbon Dioxide Anion Gap BUN Creatinine Estimated GFR POC Glucose Random Glucose Lactic Acid Calcium Prot Corrected Calcium Iron 9 L TIBC 168 L % Saturation 5.4 L Ferritin Total Bilirubin AST ALT Alkaline Phosphatase Troponin I C-Reactive Protein Total Protein Albumin Vitamin B12 Cancelled TSH 0.801 Nasal Screen MRSA (PCR) MTS Gel Crossmatch 09/27/17 09/27/17 09/27/17 15:10 15:10 18:00 WBC RBC Hgb Hct MCV MCH MCHC RDW Plt Count MPV Prelim Diff (Auto) WBC Differential Seg Neuts % (Manual) Band Neuts % (Manual) Lymphocytes % (Manual) Monocytes % (Manual) Eosinophils % (Manual) Basophils % (Manual) Abs Neuts (Manual) Nucleated RBCs/100 WBC Differential Comment Dohle Bodies Platelet Estimate Platelet Morphology Target Cells Ovalocytes ESR Sodium Potassium Chloride Carbon Dioxide Anion Gap BUN Creatinine Estimated GFR POC Glucose Random Glucose Lactic Acid 1.7 Calcium Prot Corrected Calcium Iron TIBC % Saturation Ferritin 1768 H Total Bilirubin AST ALT Alkaline Phosphatase Troponin I Less than 0.02 L C-Reactive Protein Total Protein Albumin Vitamin B12 Greater than 2000 H TSH Nasal Screen MRSA (PCR) Not detected MTS Gel Crossmatch 09/27/17 09/27/17 09/28/17 21:44 21:52 05:14 WBC 1.6 L D RBC 3.20 L Hgb 8.8 L D Hct 25.8 L MCV 80.7 D MCH 27.4 MCHC 34.0 RDW 21.0 H D Plt Count 94 L D MPV 8.3 Prelim Diff (Auto) Manual diff required WBC Differential Manual diff final Seg Neuts % (Manual) 14 L Band Neuts % (Manual) 12 H Lymphocytes % (Manual) 50 H Monocytes % (Manual) 14 H Eosinophils % (Manual) 9 H Basophils % (Manual) 1 Abs Neuts (Manual) 0.4 L* Nucleated RBCs/100 WBC 8 H Differential Comment . Dohle Bodies Present H Platelet Estimate Low L Platelet Morphology Normal Target Cells 2+ H Ovalocytes 1+ H ESR Sodium Potassium Chloride Carbon Dioxide Anion Gap BUN Creatinine Estimated GFR POC Glucose 95 Random Glucose Lactic Acid Calcium Prot Corrected Calcium Iron TIBC % Saturation Ferritin Total Bilirubin AST ALT Alkaline Phosphatase Troponin I C-Reactive Protein Total Protein Albumin Vitamin B12 TSH Nasal Screen MRSA (PCR) Not detected MTS Gel Crossmatch 09/28/17 09/28/17 09/28/17 05:14 05:14 05:15 WBC RBC Hgb Hct MCV MCH MCHC RDW Plt Count MPV Prelim Diff (Auto) WBC Differential Seg Neuts % (Manual) Band Neuts % (Manual) Lymphocytes % (Manual) Monocytes % (Manual) Eosinophils % (Manual) Basophils % (Manual) Abs Neuts (Manual) Nucleated RBCs/100 WBC Differential Comment Dohle Bodies Platelet Estimate Platelet Morphology Target Cells Ovalocytes ESR Sodium 143 Potassium 2.8 L* Chloride 109 H D Carbon Dioxide 20.4 L Anion Gap 14 BUN 14 Creatinine 0.77 Estimated GFR Greater than 89 POC Glucose Random Glucose 77 Lactic Acid 0.8 Calcium 7.1 L* D Prot Corrected Calcium 8.1 L Iron TIBC % Saturation Ferritin Total Bilirubin 0.9 AST 18 ALT 23 Alkaline Phosphatase 114 Troponin I C-Reactive Protein 31.00 H Total Protein 5.2 L Albumin 1.2 L Vitamin B12 TSH Nasal Screen MRSA (PCR) MTS Gel Crossmatch 09/28/17 10:24 WBC RBC Hgb Hct MCV MCH MCHC RDW Plt Count MPV Prelim Diff (Auto) WBC Differential Seg Neuts % (Manual) Band Neuts % (Manual) Lymphocytes % (Manual) Monocytes % (Manual) Eosinophils % (Manual) Basophils % (Manual) Abs Neuts (Manual) Nucleated RBCs/100 WBC Differential Comment Dohle Bodies Platelet Estimate Platelet Morphology Target Cells Ovalocytes ESR Sodium Potassium Chloride Carbon Dioxide Anion Gap BUN Creatinine Estimated GFR POC Glucose 79 Random Glucose Lactic Acid Calcium Prot Corrected Calcium Iron TIBC % Saturation Ferritin Total Bilirubin AST ALT Alkaline Phosphatase Troponin I C-Reactive Protein Total Protein Albumin Vitamin B12 TSH Nasal Screen MRSA (PCR) MTS Gel Crossmatch - Imaging Impressions Knee CT 09/27/17 00:00 CONCLUSION: 1. Left knee arthroplasty without fracture. 2. There does appear to be a joint effusion with fluid tracking anteriorly within the knee. Knee X-Ray 09/27/17 00:00 CONCLUSION: No acute left knee abnormality is identified. Total knee arthroplasty hardware demonstrates no acute finding. Possible small joint effusion. Tibia/Fibula X-Ray 09/27/17 00:00 CONCLUSION: No acute left leg abnormality is identified. Assessment and Plan - Plan Neutropenic sepsis Leucopenia, pancytopenia: ? MTX, ? Psych meds, ? Sepsis contributing. Abdominal fold cellulitis. Groin cellulitis, Mons pubis cellulitis. H/o fall with scraping of left knee. Left knee hardware in place. CT with fluid collection. Dysphagia: mucositis. Concern for Daniel Esophagitis Recs: Continue Cefepime IV Continue Vanco IV. Continue Diflucan IV. Consider GI consult if dysphagia persists and inability to eat. Follow oral intake. Follow left leg for cellulitis. Reviewed notes: No concern for knee infection. Follow knee clinically if clinically worsens consider a WBC scan after dw ID. Dw : agree MTX high on culprit list of pancytopenia. He will consider Neupogen if counts dont improve. Please dw Hematology if counts drop Nystatin for LA to wounds. Noted Surgery consult. Nystatin swish swash for daniel vs mucositis from pancytopenia. Diarrhea could also be from mucositis. R/o infectious causes such as cdiff if persists in view of recent antibiotic history. covering for me. I will be OOT from 09/29/2017.
[2017-09-28] MEDS ORDERED: Vancomycin Consult Pharmacy 1 EACH OTHER SCH (12:00)
--- NOTE | 2017-09-28 12:23 | MB ---
cc: Jose Schneider MD DATE: 09/28/2017 REASON FOR CONSULTATION: Skin wound of groin, thighs and lower abdominal area. HISTORY OF PRESENT ILLNESS: The patient is a 51-year-old female with multiple medical issues including COPD, schizophrenia, arthritis, patient with a recent knee replacement. The patient presented initially to the hospital with shortness of breath, altered mental status: The patient is a poor historian. Most of history obtained via the chart, no family at bedside currently. The patient was brought into the emergency department for shortness of breath workup. She was noted to have a WBC of 0.9 and severely leukopenic along with a hemoglobin of 5. She received a transfusion with response. She was placed on antibiotics. Hematology consulted, concern for possible inflammatory or septic reaction resulting in her neutropenia and anemia. She is currently improving from this. The patient was noted to have a skin wound to her lower pannus/medial thighs area. Therefore, Surgery was consulted for further evaluation. On questioning the patient, the patient again a poor historian, but states the wound has been going on for 2 weeks and continued to get worse. The patient was noted to have an issue with her left knee for which she had appearance of purulent drainage. She was placed on antibiotics for this and this appears to have some improvement. PAST MEDICAL HISTORY: Back pain, hypercholesterolemia, hypertension, hyperthyroidism, osteoarthritis, renal disease, schizophrenia. PAST SURGICAL HISTORY: Hysterectomy, knee surgery, neck surgery, hip surgery, . SOCIAL HISTORY: Schizophrenia. History of smoke exposure. Denies ETOH or IVDA. ALLERGIES: AMOXICILLIN. MEDICATIONS: See EMR. FAMILY HISTORY: Denies diabetes or hypertension. REVIEW OF SYSTEMS: GENERAL: Denies fevers, chills. HEENT: Denies eye pain, ear pain. NECK: Denies swelling or pain. LUNGS: Complains of shortness of breath. ABDOMEN: Complains of skin lesion. Denies vomiting. GENITOURINARY: Complains of skin lesions. EXTREMITIES: Warm and well perfused. PSYCH: Schizophrenia disorder. HEME: Neutropenia, anemia. PHYSICAL EXAMINATION: GENERAL: Confused. VITAL SIGNS: Temperature 98.2, pulse 110, respirations 16, blood pressure 195/47, saturation 94%. HEENT: Pupils equal, round, reactive. NECK: Supple. Trachea midline. LUNGS: Bilateral expansion, clear. HEART: S1, S2, tachycardic. ABDOMEN: Soft, nondistended. SKIN: Perineal/groin area and lower abdomen noted for multiple skin lesions. Lower medial abdomen approximately 5 x 6 cm, pannus crease area very long noted skin areas with tenderness to palpation with exudate and whitish in color. Medial thighs proximally noted a similar appearance. LABORATORY AND DIAGNOSTIC DATA: WBC 8.9, hemoglobin 5.5, currently 8.8, hematocrit 16.3, currently 25.8, platelets 94. INR 1.2. Sodium 143, potassium 2.8, chloride 109, BUN 14, creatinine 0.7. Calcium 7.1. IMAGING STUDIES: CT abdomen and pelvis reviewed by myself showing colitis, mild steatosis, left lobe lung consolidation. ASSESSMENT: The patient is a 51-year-old female with multiple medical issues, severe anemia, neutropenia, recently knee infection, presents with abdominal lesions characteristic in appearance of possible burn-like. Cultures with pseudomonas and staph PLAN: After a full workup, patient with the above-named issues. At this point, the skin almost has the appearance of skin sloughing with the appearance similar to a burn. I recommend local skin care including Silvadene dressings including 4 x 4's, ABD pads. I further recommend keeping this area clean and dry. Continue antibiotics. At this point, I do not believe any surgical debridement is warranted. If wound progression or failure of medical treatment then will consider debridement. On review of CT scan, does not show any subcutaneous necrotic tissue or concern for underlying deep-seated septic pathology. We will continue to follow. Thank you for this consultation. Recommend further consultation for Wound Care wound management team. MD RAY Meier/BIPIN , 11:54 AM , 12:20 PM JOSE
--- NOTE | 2017-09-28 14:22 | P.PNWCN ---
Wound Care Nurse Consult Description: Consult for WOUND MANAGEMENT of abdomen per Dr Vivar Communicated with: VAN Bradford RN Recommendation: BID and PRN: 1. Gently cleanse intertriginous areas on abdomen, thighs, and groin with mild soap and water or NS using soft cloths to pat dry. 2. Sprinkle stoma powder over open areas and wipe away excess. 3. Olmitz Cavilon skin barrier film over powdered areas to seal in powder creating a crust. 4. Apply ultrasorb moisture wicking pads provided in between the folds of skin and change BID and PRN when soiled. Additional information: Patient seen in IMC for moisture related full thickness skin loss noted to abdominal folds, groin, and inner thighs. Wound/Pressure Injury - Additional Information Abdominal folds and inner thighs visualized by rfp writer and noted to be full thickness skin loss related to moisture with no active drainage and no odor. Wound margins are jagged and irregular. Periwounds are unremarkable with no satellite lesions visualized. Recommend to gently cleanse with a mild soap or NORMAL SALINE BID and PRN for moisture. After patting dry, encrusting is encouraged and explained in the above recommendations. Moisture pads designed for these wounds were provided for patient and left at the bedside.
[2017-09-28] MEDS: Nystatin Liq 500,000 UNIT/5 ML UDC SWISH-SWAL SCH ×2 (16:14→22:38)
[2017-09-28] MEDS: Folic Acid Inj 1 MG/0.2 ML VIAL IM SCH (18:04)
[2017-09-28] MEDS: Vancomycin Inj 800 MG in Sodium Chlor 0.9% Inj 250 ML IV.SIG SCH (22:38)
[2017-09-29 05:20] LABS: Hematocrit 28.3 % (35.0-46.0); Hemoglobin 9.6 gm/dL (11.6-15.3); Mean Corpuscular HGB Conc 33.7 % (32.0-36.0); Mean Corpuscular Hemoglobin 26.9 pg (27.0-34.0); Mean Corpuscular Volume 79.8 fL (80.0-100.0); Mean Platelet Volume 8.6 fL (7.0-11.0); Platelet Count 59 th/mm3 (150-450); Red Blood Count 3.55 mil/mm3 (4.00-5.30); Red Cell Distribution Width 21.3 % (11.6-17.2); White Blood Count 2.4 th/mm3 (4.0-11.0)
[2017-09-29 06:33] LABS: Alanine Aminotransferase 24 U/L (10-53); Albumin 1.2 g/dL (3.4-5.0); Alkaline Phosphatase 139 U/L (45-117); Anion Gap 11 meq/L (5-15); Aspartate Aminotransferase 17 U/L (15-37); Blood Urea Nitrogen 12 mg/dL (7-18); Calcium 7.9 mg/dL (8.5-10.1); Carbon Dioxide 22.1 meq/L (21.0-32.0); Chloride 111 meq/L (98-107); Glomerular Filtration Rate Greater Than 89 mL/min (>89); Glucose,Random 82 mg/dL (74-106); Sodium 144 meq/L (136-145); Total Protein 5.2 g/dL (6.4-8.2)
[2017-09-29 06:35] LABS: Potassium 2.9 meq/L (3.5-5.1)
[2017-09-29] MEDS: Chlorhexidine Gluconate 2% 1 Pack (2 Cloths) TOPICAL SCH (06:59)
[2017-09-29 08:40] LABS: Blast Cells 1 % (0-0); Eosinophils 10 % (0-4); Lymphocytes 60 % (9-44); Monocytes 7 % (0-8); Myelocytes 5 % (0-0); Tallied Nucleated RBC 21 (0-0); Target Cells 1+
[2017-09-29 08:41] LABS: Acanthocytes Occ; Platelet Morphology Normal (Normal)
--- NOTE | 2017-09-29 09:39 | P.PNONC ---
Subjective Interval history: Afebrile Pt resting in bed in no distress Shakes head 'yes' to all questions Non-verbal Objective Vital Signs/Intake & Output: Vital Signs 09/28/17 10:00 09/28/17 12:00 09/28/17 14:00 Temperature 98.4 F Pulse Rate 106 H 108 H 106 H Respiratory Rate 16 Blood Pressure 149/77 H Pulse Oximetry 98 09/28/17 16:00 09/28/17 18:00 09/28/17 20:00 Temperature 98.9 F 97.8 F Pulse Rate 119 H 117 H 75 Respiratory Rate 18 16 Blood Pressure 135/62 135/65 Pulse Oximetry 100 96 09/28/17 23:40 09/28/17 23:42 09/29/17 04:00 Temperature 98.0 F 98.0 F 98.1 F Pulse Rate 63 63 69 Respiratory Rate 14 14 14 Blood Pressure 124/70 124/70 123/53 L Pulse Oximetry 95 95 95 Intake & Output 09/28/17 09/29/17 09/29/17 18:59 06:59 18:59 Intake Total 1400 / 1400 1000 / 1000 Balance 1400 / 1400 1000 / 1000 Intake: IV 1400 / 1400 1000 / 1000 NS Inj 1,000 ML @ 100 mls/hr IV 1000 / 1000 1000 / 1000 .CONT .Q10H [facility] Rx#:[id number] Maxipime Inj 2,000 MG In NS Inj 100 / 100 100 ML @ 200 mls/hr IV.SIG Q12H [facility] Rx#:[id number] KCl 20 mEq Premix Inj 20 meq In 300 / 300 0 / 0 100 ml @ 50 mls/hr IV.SIG Q2H PRN Rx#:[id number] Other: Date of Last Bowel Movement 09/28/17 09/28/17 Result Diagrams: 09/29/17 04:40 09/29/17 04:40 Laboratory Results: Laboratory Results - last 24 hr 09/27/17 09/28/17 09/28/17 11:27 10:24 22:59 WBC RBC Hgb Hct MCV MCH MCHC RDW Plt Count MPV Prelim Diff (Auto) WBC Differential Seg Neuts % (Manual) Band Neuts % (Manual) Lymphocytes % (Manual) Monocytes % (Manual) Eosinophils % (Manual) Basophils % (Manual) Myelocytes % (Man) Blast Cells % (Manual) Abs Neuts (Manual) Nucleated RBCs/100 WBC Differential Comment Platelet Estimate Platelet Morphology Target Cells Acanthocytes (Spur) Sodium Potassium 3.0 L Chloride Carbon Dioxide Anion Gap BUN Creatinine Estimated GFR POC Glucose 79 Random Glucose Calcium Total Bilirubin AST ALT Alkaline Phosphatase Total Protein Albumin MTS Gel Crossmatch See Detail 09/29/17 09/29/17 04:40 04:40 WBC 2.4 L RBC 3.55 L Hgb 9.6 L Hct 28.3 L MCV 79.8 L MCH 26.9 L MCHC 33.7 RDW 21.3 H Plt Count 59 L D MPV 8.6 Prelim Diff (Auto) Manual diff required WBC Differential Manual diff final Seg Neuts % (Manual) 13 L Band Neuts % (Manual) 2 Lymphocytes % (Manual) 60 H Monocytes % (Manual) 7 Eosinophils % (Manual) 10 H Basophils % (Manual) 2 Myelocytes % (Man) 5 H Blast Cells % (Manual) 1 H Abs Neuts (Manual) 0.5 L* Nucleated RBCs/100 WBC 21 H Differential Comment . Platelet Estimate Low L Platelet Morphology Normal Target Cells 1+ H Acanthocytes (Spur) Occ H Sodium 144 Potassium 2.9 L* Chloride 111 H Carbon Dioxide 22.1 Anion Gap 11 BUN 12 Creatinine 0.66 Estimated GFR Greater than 89 POC Glucose Random Glucose 82 Calcium 7.9 L D Total Bilirubin 0.9 AST 17 ALT 24 Alkaline Phosphatase 139 H Total Protein 5.2 L Albumin 1.2 L MTS Gel Crossmatch Culture Results: Microbiology 09/27/17 08:20 Urine Culture - Preliminary Catheterized Urine No growth in 24 hours 09/27/17 12:50 Gram Stain - Final Wound - Hip Wound Culture - Preliminary Pseudomonas species Group B beta Strep 09/27/17 08:25 Aerobic Blood Culture - Preliminary Blood - Peripheral No growth in 1 day Anaerobic Blood Culture - Preliminary No growth in 1 day 09/27/17 08:10 Aerobic Blood Culture - Preliminary Blood - Peripheral No growth in 1 day Anaerobic Blood Culture - Preliminary No growth in 1 day 09/27/17 22:10 Streptococcus pneumoniae Antigen (M - Final Urine - Catheterized Urine Presumptive negative for streptococcus pneumoniae antigen, suggesting no current or recent infection. Infection due to Streptococcus pneumoniae cannot be ruled out since the antigen present in the sample may be below the detection limit of the test. 09/27/17 22:10 Legionella Antigen - Final Urine - Catheterized Urine Presumptive negative for Legionella pneumophila serogroup 1 antigen in urine, suggesting no recent or recurrent infection. Infection due to Legionella cannot be ruled out since other serogroups and species may cause disease, antigen may not be present in urine in early infection, and the level of antigen present in the urine may be below the detection limit of the test. Medications: Active Medications Generic Name Dose Route Start Last Admin Trade Name Freq PRN Reason Stop Dose Admin Acetaminophen 650 mg 09/27/17 23:39 09/28/17 05:10 Tylenol PO 650 mg Q4H PRN Administration Pain 1-10 Aripiprazole 30 mg 09/28/17 10:15 09/28/17 12:16 Abilify PO 30 mg DAILY [facility] Administration Buspirone HCl 15 mg 09/27/17 20:00 09/28/17 17:18 Buspar PO 15 mg TID [facility] Administration Chlorhexidine Gluconate 3 pack 09/28/17 04:00 09/29/17 06:59 Chlorhexidine 2% Cloth TOPICAL 10/03/17 03:59 Not Given DAILY@0400 [facility] Diltiazem HCl 60 mg 09/27/17 18:00 09/28/17 23:00 Cardizem PO 60 mg QID [facility] Administration Duloxetine HCl 60 mg 09/27/17 20:00 09/28/17 08:11 Cymbalta PO 60 mg DAILY [facility] Administration Folic Acid 1 mg 09/28/17 11:00 09/28/17 18:04 Folvite Inj IM 1 mg DAILY [facility] Administration Sodium Chloride 1,000 mls @ 100 mls/hr 09/27/17 13:15 09/28/17 22:59 Ns Inj IV.CONT 100 mls/hr .Q10H [facility] Administration Fluconazole 200 mls @ 100 mls/hr 09/27/17 23:00 09/29/17 01:22 Diflucan 400 Mg Premix Bag IV.SIG 100 mls/hr Q24H [facility] Administration Vancomycin HCl 800 mg/ Sodium 250 mls @ 250 mls/hr 09/28/17 18:00 09/28/17 22 :38 Chloride IV.SIG Not Given Q18H [facility] Nystatin 1 applicatio 09/28/17 13:00 09/28/17 23:03 Mycostatin Cream TOPICAL 1 applicatio QID [facility] Administration Ondansetron HCl 4 mg 09/27/17 13:04 09/27/17 20:54 Zofran Odt SL 4 mg Q6H PRN Administration NAUSEA OR VOMITING Pantoprazole Sodium 20 mg 09/28/17 09:00 09/28/17 08:11 Protonix PO 20 mg DAILY [facility] Administration Pravastatin Sodium 40 mg 09/27/17 18:45 09/28/17 08:11 Pravachol PO 40 mg DAILY [facility] Administration Senna/Docusate Sodium 1 tab 09/27/17 13:04 09/27/17 20:54 Kaykay-Colace PO 1 tab BID PRN Administration CONSTIPATION Sennosides 17.2 mg 09/27/17 13:04 09/27/17 20:55 Senokot PO 17.2 mg Q12H PRN Administration Moderate Constipation Trazodone HCl 100 mg 09/27/17 18:00 09/28/17 08:11 Desyrel PO 100 mg DAILY [facility] Administration Objective Remarks: GENERAL: Morbidly obese older female resting in bed in no obvious distress. She opens her eyes to verbal stimuli. SKIN: Multiple ulcerated, excoriated areas to pannus, inner thighs. Skin appears macerated. Dressing covering. HEAD: Normocephalic. EYES: No scleral icterus. No injection or drainage conjunctivae are pale. NECK: Supple, trachea midline. No JVD or lymphadenopathy. CARDIOVASCULAR: Regular rate and rhythm without murmurs. RESPIRATORY: Breath sounds equal bilaterally. No accessory muscle use. Decreased bibasilar breath sounds secondary to poor inspiratory effort. GASTROINTESTINAL: Obese. Non-tender. Dressing covering. EXTREMITIES: LLE edematous. MUSCULOSKELETAL: Generalized weakness. NEUROLOGICAL: Patient nonverbal. She nods her head yes to every question. However she does follow commands to stick out her tongue and give me a thumbs up. Assessment/Plan (1) Cellulitis of knee, left Code(s): L03.116 - Cellulitis of left lower limb Status: Acute (2) Sepsis Code(s): A41.9 - Sepsis, unspecified organism Status: Acute (3) Neutropenia Code(s): D70.9 - Neutropenia, unspecified Status: Acute (4) Anemia Code(s): D64.9 - Anemia, unspecified Status: Acute - Plan Ms. Mcclain is a 51-year-old female with multiple medical comorbid conditions including schizophrenia, reported history of rheumatoid arthritis, osteoarthritis. 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 Had redness swelling and purulent discharge from the incision of the left TKA for much of August into September 2017. Presents to the hospital with increased confusion and progressive weakness. Clinical examination at time of presentation revealed significant erythema and edema of the left leg, patient also found to have skin wound involving the lower abdominal skin. CT imaging of the chest revealed a cavitary lesion in the left lower lobe, CT imaging of the abdomen pelvis revealed findings consistent with colitis, CT imaging of the left knee revealed edema around the left knee with fluid tracking to the surface. Recommendations: 1. Pt with significantly worsened thrombocytopenia today. This is likely a combination of sepsis and drug effect. Namely vancomycin and fluconazole can cause thrombocytopenia. Recheck US of LLE as she has edema. Also check platelet count in a blue top. We will also check LDH, haptoglobin and APTT. 2. Neutropenia: Absolute neutrophil count noted to be 0.5 today. If the patient continues to decline would consider G-CSF support. 3. Daily CBC. - Attending Statement The exam, history, and the medical decision-making described in the above note were completed with the assistance of the mid-level provider. I reviewed and agree with the findings presented. I attest that I had a [id number] encounter with the patient on the same day, and personally performed and documented my assessment and findings in the medical record. Patient seen and examined. She is quite sleepy at the time of the evaluation around 8 PM. She appears to cooperate and wakes momentarily. Evaluation of the left leg shows trace amount of edema. There is scar of the left knee. Appears more prominent than the right. Noted previous ultrasound was negative for deep vein thromboses. However this prior to the abrupt drop in platelet count. Venous thromboembolic event is still considered. Ultrasound below the knee for deep vein thromboses have low sensitivity. I recommend repeating Doppler ultrasound to rule out a deep vein thrombosis in light of the thrombocytopenia. Neutropenia persisted. The increase in white blood cells are due to the nucleated red blood cells. Hemoglobin is stable. PT PTT are previously prolonged suggests consumption. Fibrinogen will be added. No heparin is noted in patient's medication list to suggest a heparin-induced thrombocytopenia. But she was hospitalized for the knee surgery recently. H IT antibodies will be obtained. (2) Sepsis Qualifiers: Sepsis type: sepsis due to unspecified organism Qualified Code(s): A41.9 - Sepsis, unspecified organism (3) Neutropenia Qualifiers: Neutropenia type: unspecified Qualified Code(s): D70.9 - Neutropenia, unspecified (4) Anemia Qualifiers: Anemia type: unspecified type Qualified Code(s): D64.9 - Anemia, unspecified
[2017-09-29] MEDS: dilTIAZem 60 MG Tablet PO SCH ×4 (09:55→21:47)
[2017-09-29] MEDS: Pantoprazole Sodium 20 MG DR Tablet PO SCH (09:55)
[2017-09-29] MEDS: traZODone 100 MG Tablet PO SCH (09:55)
[2017-09-29] MEDS: Duloxetine 60 MG DR Capsule PO SCH (09:55)
[2017-09-29] MEDS: Nystatin Liq 500,000 UNIT/5 ML UDC SWISH-SWAL SCH ×4 (09:55→21:47)
--- NOTE | 2017-09-29 10:55 | P.PNOP ---
Subjective Interval history: patient's in room. she seems to be doing better regarding pain. Physical Exam Vital signs: Vital Signs 09/28/17 12:00 09/28/17 14:00 09/28/17 16:00 Temperature 98.4 F 98.9 F Pulse Rate 108 H 106 H 119 H Respiratory Rate 16 18 Blood Pressure 149/77 H 135/62 Pulse Oximetry 98 100 09/28/17 18:00 09/28/17 20:00 09/28/17 23:40 Temperature 97.8 F 98.0 F Pulse Rate 117 H 75 63 Respiratory Rate 16 14 Blood Pressure 135/65 124/70 Pulse Oximetry 96 95 09/28/17 23:42 09/29/17 04:00 09/29/17 08:00 Temperature 98.0 F 98.1 F 98.6 F Pulse Rate 63 69 109 H Respiratory Rate 14 14 16 Blood Pressure 124/70 123/53 L 144/69 H Pulse Oximetry 95 95 94 L Intake & Output 09/28/17 09/29/17 09/29/17 18:59 06:59 18:59 Intake Total 1400 / 1400 1000 / 1000 Balance 1400 / 1400 1000 / 1000 Intake: IV 1400 / 1400 1000 / 1000 NS Inj 1,000 ML @ 100 mls/hr IV 1000 / 1000 1000 / 1000 .CONT .Q10H [facility] Rx#:[id number] Maxipime Inj 2,000 MG In NS Inj 100 / 100 100 ML @ 200 mls/hr IV.SIG Q12H [facility] Rx#:[id number] KCl 20 mEq Premix Inj 20 meq In 300 / 300 0 / 0 100 ml @ 50 mls/hr IV.SIG Q2H [facility]N Rx#:[id number] Other: Date of Last Bowel Movement 09/28/17 09/28/17 Narrative: in bed, nad L knee - small area near distal incision with dry scab. no purulent discharge. knee swelling improving. nvi. neg homans. no significant pain with ROM of knee. - Urinary Catheter Management Indwelling Urethral Catheter Cath placed during this visit: yes Reason for continuing: Severe pressure ulcer/wound Insertion date: 09/27/17 Insertion time: 08:20 Results - Labs CBC & Chem 7: 09/29/17 04:40 09/29/17 04:40 Laboratory Results - last 24 hr 09/27/17 09/28/17 09/29/17 11:27 22:59 04:40 WBC RBC Hgb Hct MCV MCH MCHC RDW Plt Count MPV Prelim Diff (Auto) WBC Differential Seg Neuts % (Manual) Band Neuts % (Manual) Lymphocytes % (Manual) Monocytes % (Manual) Eosinophils % (Manual) Basophils % (Manual) Myelocytes % (Man) Blast Cells % (Manual) Abs Neuts (Manual) Nucleated RBCs/100 WBC Differential Comment Platelet Estimate Platelet Morphology Target Cells Acanthocytes (Spur) Sodium 144 Potassium 3.0 L 2.9 L* Chloride 111 H Carbon Dioxide 22.1 Anion Gap 11 BUN 12 Creatinine 0.66 Estimated GFR Greater than 89 Random Glucose 82 Calcium 7.9 L D Total Bilirubin 0.9 AST 17 ALT 24 Alkaline Phosphatase 139 H Total Protein 5.2 L Albumin 1.2 L MTS Gel Crossmatch See Detail 09/29/17 04:40 WBC 2.4 L RBC 3.55 L Hgb 9.6 L Hct 28.3 L MCV 79.8 L MCH 26.9 L MCHC 33.7 RDW 21.3 H Plt Count 59 L D MPV 8.6 Prelim Diff (Auto) Manual diff required WBC Differential Manual diff final Seg Neuts % (Manual) 13 L Band Neuts % (Manual) 2 Lymphocytes % (Manual) 60 H Monocytes % (Manual) 7 Eosinophils % (Manual) 10 H Basophils % (Manual) 2 Myelocytes % (Man) 5 H Blast Cells % (Manual) 1 H Abs Neuts (Manual) 0.5 L* Nucleated RBCs/100 WBC 21 H Differential Comment . Platelet Estimate Low L Platelet Morphology Normal Target Cells 1+ H Acanthocytes (Spur) Occ H Sodium Potassium Chloride Carbon Dioxide Anion Gap BUN Creatinine Estimated GFR Random Glucose Calcium Total Bilirubin AST ALT Alkaline Phosphatase Total Protein Albumin MTS Gel Crossmatch Microbiology 09/27/17 12:50 Wound - Hip Gram Stain - Final 09/27/17 12:50 Wound - Hip Wound Culture - Preliminary Pseudomonas species Group B beta Strep 09/27/17 08:20 Catheterized Urine Urine Culture - Preliminary No growth in 24 hours 09/27/17 08:25 Blood - Peripheral Aerobic Blood Culture - Preliminary No growth in 1 day 09/27/17 08:25 Blood - Peripheral Anaerobic Blood Culture - Preliminary No growth in 1 day 09/27/17 08:10 Blood - Peripheral Aerobic Blood Culture - Preliminary No growth in 1 day 09/27/17 08:10 Blood - Peripheral Anaerobic Blood Culture - Preliminary No growth in 1 day 09/27/17 22:10 Urine - Catheterized Urine Streptococcus pneumoniae Antigen ( M - Final Presumptive negative for streptococcus pneumoniae antigen, suggesting no current or recent infection. Infection due to Streptococcus pneumoniae cannot be ruled out since the antigen present in the sample may be below the detection limit of the test. 09/27/17 22:10 Urine - Catheterized Urine Legionella Antigen - Final Presumptive negative for Legionella pneumophila serogroup 1 antigen in urine, suggesting no recent or recurrent infection. Infection due to Legionella cannot be ruled out since other serogroups and species may cause disease, antigen may not be present in urine in early infection, and the level of antigen present in the urine may be below the detection limit of the test. Assessment and Plan - Assessment and Plan s/p L TKA 07/26/[address] Dasha Frausto neutropenia cellulitis LLE IV abx per ID monitor knee - no active drainage from knee currently med management
[2017-09-29 12:05] LABS: Lactate Dehydrogenase 331 U/L (84-246)
--- NOTE | 2017-09-29 13:29 | P.PNFP ---
Subjective Interval history: Patient seen at bedside this morning. No acute events overnight. Patient is alert and reports feeling much better. She reports sleeping well and experiencing much less pain particularly in her left leg. She also feel like her abdomen is less painful. Although she continues to feel hungry she has no desire to eat and does not know why. She was encourages to eat for the purposes of nutrients in the setting of being pancytopenic. Her case was also discussed with her and daughter and all questions were answered to her satisfaction. She denies any chest pain, sob, nausea, or vomiting. <Yon Carney O - 09/29/17 13:29> Results - Labs Result diagrams: 09/30/17 00:04 09/29/17 04:40 <Maddy Jackson - 09/30/17 12:22> Abnormal lab results 09/30/17 Range/Units 00:04 Plt Count 62 L (150-450) th/mm3 Short CBC 09/30/17 Range/Units 00:04 Plt Count 62 L (150-450) th/mm3 <Maddy Jackson - 09/30/17 12:22> Abnormal lab results 09/27/17 09/28/17 09/29/17 Range/Units 11:27 22:59 04:40 WBC (4.0-11.0) th/mm3 RBC (4.00-5.30) mil/mm3 Hgb (11.6-15.3) gm/dL Hct (35.0-46.0) % MCV (80.0-100.0) fL MCH (27.0-34.0) pg RDW (11.6-17.2) % Plt Count (150-450) th/mm3 Seg Neuts % (Manual) (16-70) % Lymphocytes % (Manual) (9-44) % Eosinophils % (Manual) (0-4) % Myelocytes % (Man) (0-0) % Blast Cells % (Manual) (0-0) % Abs Neuts (Manual) (1.8-7.7) th/mm3 Nucleated RBCs/100 WBC (0-0) /100 WBC Platelet Estimate (Normal) Target Cells (None) Acanthocytes (Spur) (None) Haptoglobin (30-200) mg/dL Potassium 3.0 L 2.9 L* (3.5-5.1) meq/L Chloride 111 H (98-107) meq/L Calcium 7.9 L D (8.5-10.1) mg/dL Alkaline Phosphatase 139 H (45-117) U/L Lactate Dehydrogenase (84-246) U/L Total Protein 5.2 L (6.4-8.2) g/dL Albumin 1.2 L (3.4-5.0) g/dL MTS Gel Crossmatch See Detail 09/29/17 09/29/17 Range/Units 04:40 11:11 WBC 2.4 L (4.0-11.0) th/mm3 RBC 3.55 L (4.00-5.30) mil/mm3 Hgb 9.6 L (11.6-15.3) gm/dL Hct 28.3 L (35.0-46.0) % MCV 79.8 L (80.0-100.0) fL MCH 26.9 L (27.0-34.0) pg RDW 21.3 H (11.6-17.2) % Plt Count 59 L D (150-450) th/mm3 Seg Neuts % (Manual) 13 L (16-70) % Lymphocytes % (Manual) 60 H (9-44) % Eosinophils % (Manual) 10 H (0-4) % Myelocytes % (Man) 5 H (0-0) % Blast Cells % (Manual) 1 H (0-0) % Abs Neuts (Manual) 0.5 L* (1.8-7.7) th/mm3 Nucleated RBCs/100 WBC 21 H (0-0) /100 WBC Platelet Estimate Low L (Normal) Target Cells 1+ H (None) Acanthocytes (Spur) Occ H (None) Haptoglobin 448 H (30-200) mg/dL Potassium (3.5-5.1) meq/L Chloride (98-107) meq/L Calcium (8.5-10.1) mg/dL Alkaline Phosphatase (45-117) U/L Lactate Dehydrogenase 331 H (84-246) U/L Total Protein (6.4-8.2) g/dL Albumin (3.4-5.0) g/dL MTS Gel Crossmatch Short CBC 09/29/17 Range/Units 04:40 WBC 2.4 L (4.0-11.0) th/mm3 Hgb 9.6 L (11.6-15.3) gm/dL Hct 28.3 L (35.0-46.0) % Plt Count 59 L D (150-450) th/mm3 BMP 09/28/17 09/29/17 22:59 04:40 Sodium 144 Potassium 3.0 L 2.9 L* Chloride 111 H Carbon Dioxide 22.1 BUN 12 Creatinine 0.66 Calcium 7.9 L D Liver Function 09/29/17 Range/Units 04:40 Total Bilirubin 0.9 (0.2-1.0) mg/dL AST 17 (15-37) U/L ALT 24 (10-53) U/L Alkaline Phosphatase 139 H (45-117) U/L Albumin 1.2 L (3.4-5.0) g/dL <Yon Carney - 09/29/17 13:29> - Imaging Impressions Venous Doppler Study 09/29/17 00:00 CONCLUSION: No evidence of deep venous thrombosis. <Maddy Jackson - 09/30/17 12:22> Physical Exam Vital signs: Vital Signs 09/29/17 16:00 09/29/17 20:00 09/29/17 21:00 Temperature 98.3 F 98.4 F Pulse Rate 94 H 107 H 110 H Respiratory Rate 16 17 Blood Pressure 133/63 140/73 Pulse Oximetry 97 96 09/29/17 21:47 09/30/17 00:00 09/30/17 05:50 Temperature 98.9 F 98 F Pulse Rate 115 H 88 Respiratory Rate 20 22 Blood Pressure 138/80 128/88 Pulse Oximetry 97 97 98 09/30/17 08:00 Temperature 98.7 F Pulse Rate 90 Respiratory Rate 18 Blood Pressure 169/78 H Pulse Oximetry 97 Intake & Output 09/29/17 09/30/17 09/30/17 18:59 06:59 18:59 Intake Total 350 / 350 2450 / 2450 300 / 300 Output Total 2470 / 2470 Balance 350 / 350 -20 / -20 300 / 300 Weight 113 kg Intake: IV 350 / 350 1000 / 1000 300 / 300 NS Inj 1,000 ML @ 100 mls/hr IV 1000 / 1000 .CONT .Q10H [facility] Rx#:[id number] Maxipime Inj 2,000 MG In NS Inj 100 / 100 100 / 100 100 ML @ 200 mls/hr IV.SIG Q8H [facility] Rx#:[id number] Diflucan 400 mg Premix Bag 200 200 / 200 ML @ 100 mls/hr IV.SIG Q24H [facility] Rx#:[id number] Vancomycin Inj 800 MG In NS Inj 250 / 250 250 ML @ 250 mls/hr IV.SIG Q18H [facility] Rx#:[id number] Oral 1450 / 1450 Output: Urine Amount (Catheter) 2470 / 2470 Indwelling Urethral Catheter 2470 / 2470 Other: Date of Last Bowel Movement 09/28/17 09/29/17 09/29/17 # Bowel Movements 3 # Emeses 1 <Maddy Jackson M - 09/30/17 12:22> Vital Signs 09/28/17 14:00 09/28/17 16:00 09/28/17 18:00 Temperature 98.9 F Pulse Rate 106 H 119 H 117 H Respiratory Rate 18 Blood Pressure 135/62 Pulse Oximetry 100 09/28/17 20:00 09/28/17 23:40 09/28/17 23:42 Temperature 97.8 F 98.0 F 98.0 F Pulse Rate 75 63 63 Respiratory Rate 16 14 14 Blood Pressure 135/65 124/70 124/70 Pulse Oximetry 96 95 95 09/29/17 04:00 09/29/17 08:00 09/29/17 10:56 Temperature 98.1 F 98.6 F Pulse Rate 69 109 H Respiratory Rate 14 16 Blood Pressure 123/53 L 144/69 H Pulse Oximetry 95 94 L 94 L Intake & Output 09/28/17 09/29/17 09/29/17 18:59 06:59 18:59 Intake Total 1400 / 1400 1000 / 1000 Balance 1400 / 1400 1000 / 1000 Intake: IV 1400 / 1400 1000 / 1000 NS Inj 1,000 ML @ 100 mls/hr IV 1000 / 1000 1000 / 1000 .CONT .Q10H [facility] Rx#:[id number] Maxipime Inj 2,000 MG In NS Inj 100 / 100 100 ML @ 200 mls/hr IV.SIG Q12H [facility] Rx#:[id number] KCl 20 mEq Premix Inj 20 meq In 300 / 300 0 / 0 100 ml @ 50 mls/hr IV.SIG Q2H [facility] Rx#:[id number] Other: Date of Last Bowel Movement 09/28/17 09/28/17 <Yon Carney 09/29/17 13:29> - Constitutional no acute distress, morbidly obese, cooperative <Yon Carney 09/29/17 13:29 > - Routine HEENT Exam Head: Present: normocephalic, atraumatic <Yon Carney 09/29/17 13:29> Eye: Present: EOMI <Yon Carney 09/29/17 13:29> ENT: Present: mucous membranes moist <Yon Carney 09/29/17 13:29> Comments: Oral cavity has less candidiasis then on admission. <Yon Carney 09/29/17 13:29> - Routine Respiratory Exam Present: CTA bilaterally. Absent: accessory muscle use, prolonged expiratory phase, rales, respiratory distress, stridor, wheezes, crackles, distant breath sounds, diminished air movement <Yon Carney 09/29/17 13:29> - Routine Cardiovascular Exam Present: RRR, murmur (Non radiating holosytolic murmur best heard on left sternal border) <Yon Carney 09/29/17 13:29> - Routine Abdominal Exam Present: soft, normoactive bowel sounds. Absent: tenderness, distended, rebound , guarding <Yon Carney 09/29/17 13:29> - Routine Extremities Exam Present: edema, pulses intact, normal capillary refill, calf tenderness. Absent : cyanosis, clubbing <Yon Carney 09/29/17 13:29> Comments: Patients left limon is no longer draining but does have some erythema in the posterior calve and well as some warmth which was no change from on admission. DVT was ruled out by us on 09/27/17 will reassess via us again today. <Yon Carney 09/29/17 13:29> - Routine Skin Exam Present: dry, warm, cracked. Absent: intact <Yon Carney 09/29/17 13:29> - Routine Neurological Exam Present: alert, normal tone, vision grossly intact, hearing grossly intact, normal speech. Absent: altered mental status <Yon Carney 09/29/17 13:29> - Detailed Neurological Exam: Coma Scale Eye Opening: Spontaneous <Yon Carney 09/29/17 13:29> Verbal Response: Oriented <Yon Carney 09/29/17 13:29> Motor Response: Obey commands <Yon Carney 09/29/17 13:29> Chelle Coma Scale Total: 15 <Yon Carney 09/29/17 13:29> - Routine Psychiatric Exam Present: normal affect, normal thought process, unable to assess <Yon Carney 09/29/17 13:29> - Urinary Catheter Management Indwelling Urethral Catheter Cath placed during this visit: no <RenettaMaddy Nye Alexis 09/30/17 12:22> yes <Yon Carney 09/29/17 13:29> Reason for continuing: Severe pressure ulcer/wound <Yon Carney 09/29/17 13:29> Insertion date: 09/27/17 <Yon Carney 09/29/17 13:29> Insertion time: 08:20 <Yon Carney 09/29/17 13:29> Assessment and Plan - Assessment (1) Sepsis Code(s): A41.9 - Sepsis, unspecified organism Status: Resolved (2) Cellulitis of knee, left Code(s): L03.116 - Cellulitis of left lower limb Status: Acute (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 - Infection and inflammatory reaction due to unspecified internal joint prosthesis, initial encounter Status: Suspected (4) Neutropenia Code(s): D70.9 - Neutropenia, unspecified Status: Acute (5) Anemia Code(s): D64.9 - Anemia, unspecified Status: Acute (6) Pneumonia Code(s): J18.9 - Pneumonia, unspecified organism Status: Acute (7) Diarrhea Code(s): R19.7 - Diarrhea, unspecified Status: Acute (8) Schizophrenia Code(s): F20.9 - Schizophrenia, unspecified Status: Chronic (9) Hypertension Code(s): I10 - Essential (primary) hypertension Status: Acute (10) Elevated creatine kinase Code(s): R74.8 - Abnormal levels of other serum enzymes Status: Acute (11) Nutrition, metabolism, and development symptoms Code(s): R63.8 - Other symptoms and signs concerning food and fluid intake Status: Acute <Maddy Jackson - 09/30/17 12:22> (1) Sepsis Code(s): A41.9 - Sepsis, unspecified organism Status: Acute Plan: On admission patient found to be in severe sepsis with tachycardia (110), new onset neutropenia (WBC 0.9), Lactic acid of 3.1, and AMS. Probable source is thought to be pulmonary and/or cellulitis or prosthetic joint infection of left leg or knee, respectively. In the ED patient received 2 L of normal saline, vancomycin 1 g x1 and Zosyn 4.5 g x1. Chest CTA showed no evidence of pulmonary embolism. Atelectasis or consolidation of left lower lobe. Wound culture grew pseudomonas, urine and blood cultures show no growth after 2 days. Patient also has full thickness skin infection on abdomen and groin that appears to be fundal. ID and wound care following. - Continue with ID recommendations - Follow wound care instructions - Continue vanco and cefepime for broad-spectrum coverage - Continue fluconazole - Continue Nystatin (2) Cellulitis of knee, left Code(s): L03.116 - Cellulitis of left lower limb Status: Acute Plan: See plan above for sepsis. Her states that there was drainage from the knee and infection for weeks. She has taken approximately 2 weeks of p.o. Keflex 500 mg. 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 She completed rehabilitation and was discharged home August 23. Patient recently treated with antibiotics for left leg infection. Patient was on approximately 2 weeks of po Keflex 500 mg. Swelling and purulent discharge from incision has improved according to . Today no drainage from wound was appreciated. - See plan above for sepsis (4) Neutropenia Code(s): D70.9 - Neutropenia, unspecified Status: Acute Plan: Patient presenting with new onset neutropenia with WBC of (0.9). Prior blood work reviewed and white blood cells were within normal limits. Neutropenia possibly due to sepsis, psychotic medications or bone marrow malignancy. Patient currently on neutropenic precautions. This morning patient has also become thrombocytopenic with a platelet count of 59, likely caused by a combination of sepsis and current medication regimen. WBC up to 2.4 from yesterday 1.6 and from .9 on admission. Heme/Onc following. Per Heme/Onc rheumatologic medicines including methotrexate and the unknown biologic that she was taking have been held. - Continue to monitor WBC - Contact Heme/Onc if decline for possible G-CSF support (5) Anemia Code(s): D64.9 - Anemia, unspecified Status: Acute Plan: Patient with new onset anemia. On admission H&H found to be 5.5/16.3. On review of chart patient had baseline H&H of 8.2/24 on July/2017. Patient denies any blood in her stool. In the ED patient was found to be guaiac negative. Patient post 3 units of prbc. H/H today stable at 9.6/ 28.3. Rheumatologic medications are the possible culprit vs psychiatric medications. Ferritin at 1,768 on 09/27/17. - Continue to trend CBC - Continue folic acid - Transfuse as necessary. (6) Pneumonia Code(s): J18.9 - Pneumonia, unspecified organism Status: Acute Plan: Patient found to have left lower lobe consolidation on chest CTA. See plan above for sepsis (7) Diarrhea Code(s): R19.7 - Diarrhea, unspecified Status: Acute Plan: Patient with 3-day history of diarrhea in the setting of recent antibiotic use. Patient reports no diarrhea over night. - Follow-up C. difficile PCR (8) Schizophrenia Code(s): F20.9 - Schizophrenia, unspecified Status: Chronic Plan: Patient with chronic history of schizophrenia. Patient with active hallucinations of seeing someone out to get her. On exam patient was calm and cooperative at time with circumstantial speech pattern. Denies suicidal ideation however endorsed that she will get whoever was after her. Denied auditory or tactile hallucinations. Per Psychiatry continue with Abilify 30 mg for psychosis, okay to continue buspirone 30 mg, trazodone 100 mg and Cymbalta 60 mg, but hold anticholinergics to avoid more cognitive impairment. - Consider one-to-one sitter if patient becomes agitated - Follow Psych recommendations (9) Hypertension Code(s): I10 - Essential (primary) hypertension Status: Acute Plan: Patient with history of HTN on home diltiazem. Today bp 141/72. - Continue cardizem (10) Elevated creatine kinase Code(s): R74.8 - Abnormal levels of other serum enzymes Status: Acute Plan: Patient with increased creatinine of 1.5. Today BUN 12 and creatinine .66. - Continue with IV fluids at maintenance - Continue to monitor - Avoid nephrotoxic agents (11) Nutrition, metabolism, and development symptoms Code(s): R63.8 - Other symptoms and signs concerning food and fluid intake Status: Acute Plan: Fluids: She received 2 L bolus of IV fluid in the ED, continue with maintenance at 140mls/hr. Electrolytes: Replete as needed Nutrition: Patient passed bedside swallow evaluation, resume cardiac diet as tolerated. DVT prophylaxis: Heparin SQ every 8hr and SCDs <Yon Carney O - 09/29/17 12:37> - Assessment and Plan The exam, history, and the medical decision-making described in the above note were completed with the assistance of the resident physician. I reviewed and agree with the findings presented. I attest that I had a [id number] encounter with the patient on the same day, and personally performed and documented my assessment and findings in the medical record. She is pancytopenic today. However her white count is increasing daily. She does need her psychiatric medications. These medications can suppress her bone marrow but I believe the methotrexate is causing her problems now. With low platelets the recommendation is normally to hold the Lovenox. She does have pain in her left leg. that is the area where she had the drainage. There is been a concern about a DVT in that leg her previous ultrasound was normal. Her leg was edematous from the cellulitis. A new ultrasound will be ordered. <Maddy Jackson M - 09/30/17 12:22> <Yon Carney O - Last Filed: 09/29/17 12:37> (1) Sepsis Qualifiers: Sepsis type: sepsis due to unspecified organism Qualified Code(s): A41.9 - Sepsis, unspecified organism (4) Neutropenia Qualifiers: Neutropenia type: unspecified Qualified Code(s): D70.9 - Neutropenia, unspecified (5) Anemia Qualifiers: Anemia type: unspecified type Qualified Code(s): D64.9 - Anemia, unspecified (6) Pneumonia Qualifiers: Pneumonia type: due to unspecified organism Laterality: left Lung location: lower lobe of lung Qualified Code(s): J18.1 - Lobar pneumonia, unspecified organism (9) Hypertension Qualifiers: Hypertension type: essential hypertension Qualified Code(s): I10 - Essential (primary) hypertension <Maddy Jackson M - Last Filed: 09/30/17 12:22> (1) Sepsis Qualifiers: Sepsis type: sepsis due to unspecified organism Qualified Code(s): A41.9 - Sepsis, unspecified organism (4) Neutropenia Qualifiers: Neutropenia type: unspecified Qualified Code(s): D70.9 - Neutropenia, unspecified (5) Anemia Qualifiers: Anemia type: unspecified type Qualified Code(s): D64.9 - Anemia, unspecified (6) Pneumonia Qualifiers: Pneumonia type: due to unspecified organism Laterality: left Lung location: lower lobe of lung Qualified Code(s): J18.1 - Lobar pneumonia, unspecified organism (9) Hypertension Qualifiers: Hypertension type: essential hypertension Qualified Code(s): I10 - Essential (primary) hypertension <Carney,Yon O - Last Filed: 09/29/17 12:37> (1) Sepsis Qualifiers: Sepsis type: sepsis due to unspecified organism Qualified Code(s): A41.9 - Sepsis, unspecified organism (4) Neutropenia Qualifiers: Neutropenia type: unspecified Qualified Code(s): D70.9 - Neutropenia, unspecified (5) Anemia Qualifiers: Anemia type: unspecified type Qualified Code(s): D64.9 - Anemia, unspecified (6) Pneumonia Qualifiers: Pneumonia type: due to unspecified organism Laterality: left Lung location: lower lobe of lung Qualified Code(s): J18.1 - Lobar pneumonia, unspecified organism (9) Hypertension Qualifiers: Hypertension type: essential hypertension Qualified Code(s): I10 - Essential (primary) hypertension <Maddy Jackson M - Last Filed: 09/30/17 12:22> (1) Sepsis Qualifiers: Sepsis type: sepsis due to unspecified organism Qualified Code(s): A41.9 - Sepsis, unspecified organism (4) Neutropenia Qualifiers: Neutropenia type: unspecified Qualified Code(s): D70.9 - Neutropenia, unspecified (5) Anemia Qualifiers: Anemia type: unspecified type Qualified Code(s): D64.9 - Anemia, unspecified (6) Pneumonia Qualifiers: Pneumonia type: due to unspecified organism Laterality: left Lung location: lower lobe of lung Qualified Code(s): J18.1 - Lobar pneumonia, unspecified organism (9) Hypertension Qualifiers: Hypertension type: essential hypertension Qualified Code(s): I10 - Essential (primary) hypertension
[2017-09-29] MEDS: Vancomycin Inj 800 MG in Sodium Chlor 0.9% Inj 250 ML IV.SIG SCH (15:19)
[2017-09-29] MEDS: Folic Acid Inj 1 MG/0.2 ML VIAL IM SCH (16:06)
--- NOTE | 2017-09-29 16:43 | US ---
EXAM DATE: 09/29/2017 4:20 PM EDT AGE/SEX: 51 years / Female INDICATIONS: Left leg swelling and pain. CLINICAL DATA: This is the patient's initial encounter. Patient reports that signs and symptoms have been present for 2 days and indicates a pain score of Nonresponsive. MEDICAL/SURGICAL HISTORY: Hypercholesterolemia. Hypertension. Osteoarthritis. Carpal Tunnel Syndrome. Renal disease. Schizophrenia. Total knee replacement, left. section. Hystere ctomy. COMPARISON: TLI, US LEG VENOUS DOPPLER, LEFT, 09/20/2017. . TECHNIQUE: Venous ultrasound of both lower extremities was performed from the inguinal ligament to t he proximal calf. Real-time, color Doppler and spectral tracing, compression and augmentation techni ques were used. FINDINGS: Normal compression of the deep venous system from the inguinal region to the proximal calf . No echogenic clot is seen. Normal response of the venous system to augmentation and respiration. CONCLUSION: No evidence of deep venous thrombosis. Electronically signed by: Fabricio Estrada MD 09/29/2017 4:42 PM EDT
--- NOTE | 2017-09-29 19:24 | P.PNID ---
Subjective Remarks: ID coverage. 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 Post op it appears she was discharged to a rehab. She was discharged from the rehab to home with her on August 23. Patient reports she lives at home with her who is on disability. Unsure of nature of disability at this time and his ability to take care of her. She was reportedly able to ambulate on her own initially followed by weakness and need for walker and then to a point where she did not want to get out of bed. It has been reported to others that she had some discharge at the left surgical site area and ortho surgeon prescribed oral keflex which reportedly lead to some improvement. She reportedly completed a week of antibiotic treatment with last day scheduled for today with some improvement in her knee pain. However her stated that she was starting to have more drainage from her knee just over the past day or so. He had pointed to several areas that had been draining pus from just above and just below the knee. He stated that a cup full of pus would drain at a time. Additionally the abdominal fold wounds appear to have been present for atleast 3 weeks now. Additionally patient has a psychiatric history and is on medications such as Cymbalta and Abilify. She actively hallucinates per dw resident team and psych would like to resume her meds that are on hold due to severe neutropenia. With this background patient presents to the ED with complaints of worsening shortness of breath and mental status accompanied with symptoms of diarrhea (3 days, non-bloody) and decreased p.o. intake (5 days). She was also brought into the hospital due to infection of her knee that improved with Keflex p.o but now has returned with new additional drainage over the past few days. Pertinent positives: Weakness, dysuria, headaches, subjective fevers. History of diaphoresis, chills and bilateral leg pain. Difficulty swallowing, odynophagia like symptoms and loss of taste. history of nausea and vomiting. Diarrhea, abdominal pain. ID consulted for evaluation and Mment of Left knee prosthetic joint infection and neutropenia. Patient notes that she has pain. Afebrile. Allergies/Adverse Reactions: Allergies amoxicillin Allergy (Verified 09/27/17 17:54) Swelling Objective Vital Signs 09/28/17 20:00 09/28/17 23:40 09/28/17 23:42 Temperature 97.8 F 98.0 F 98.0 F Pulse Rate 75 63 63 Respiratory Rate 16 14 14 Blood Pressure 135/65 124/70 124/70 Pulse Oximetry 96 95 95 09/29/17 04:00 09/29/17 08:00 09/29/17 10:56 Temperature 98.1 F 98.6 F Pulse Rate 69 109 H Respiratory Rate 14 16 Blood Pressure 123/53 L 144/69 H Pulse Oximetry 95 94 L 94 L 09/29/17 12:00 Temperature 98.1 F Pulse Rate 100 H Respiratory Rate 16 Blood Pressure 141/72 H Pulse Oximetry 97 Intake & Output 09/29/17 09/29/17 09/30/17 06:59 18:59 06:59 Intake Total 1000 / 1000 Balance 1000 / 1000 Intake: IV 1000 / 1000 NS Inj 1,000 ML @ 100 mls/hr IV 1000 / 1000 .CONT .Q10H [facility] Rx#:[id number] KCl 20 mEq Premix Inj 20 meq In 0 / 0 100 ml @ 50 mls/hr IV.SIG Q2H PRN Rx#:[id number] Other: Date of Last Bowel Movement 09/28/17 09/27/17 08:20 Catheterized Urine Urine Culture - Final No growth in 48 hours 09/27/17 08:25 Blood - Peripheral Aerobic Blood Culture - Preliminary No growth in 2 days 09/27/17 08:25 Blood - Peripheral Anaerobic Blood Culture - Preliminary No growth in 2 days 09/27/17 08:10 Blood - Peripheral Aerobic Blood Culture - Preliminary No growth in 2 days 09/27/17 08:10 Blood - Peripheral Anaerobic Blood Culture - Preliminary No growth in 2 days 09/27/17 12:50 Wound - Hip Gram Stain - Final 09/27/17 12:50 Wound - Hip Wound Culture - Preliminary Pseudomonas species Group B beta Strep 09/27/17 22:10 Urine - Catheterized Urine Streptococcus pneumoniae Antigen ( M - Final Presumptive negative for streptococcus pneumoniae antigen, suggesting no current or recent infection. Infection due to Streptococcus pneumoniae cannot be ruled out since the antigen present in the sample may be below the detection limit of the test. 09/27/17 22:10 Urine - Catheterized Urine Legionella Antigen - Final Presumptive negative for Legionella pneumophila serogroup 1 antigen in urine, suggesting no recent or recurrent infection. Infection due to Legionella cannot be ruled out since other serogroups and species may cause disease, antigen may not be present in urine in early infection, and the level of antigen present in the urine may be below the detection limit of the test. Lab - Hematology Results 09/28/17 09/29/17 09/29/17 05:14 04:40 11:11 WBC 1.6 L D 2.4 L RBC 3.20 L 3.55 L Hgb 8.8 L D 9.6 L Hct 25.8 L 28.3 L MCV 80.7 D 79.8 L MCH 27.4 26.9 L MCHC 34.0 33.7 RDW 21.0 H D 21.3 H Plt Count 94 L D 59 L D MPV 8.3 8.6 Prelim Diff (Auto) Manual diff required Manual diff required WBC Differential Manual diff final Manual diff final Seg Neuts % (Manual) 14 L 13 L Band Neuts % (Manual) 12 H 2 Lymphocytes % (Manual) 50 H 60 H Monocytes % (Manual) 14 H 7 Eosinophils % (Manual) 9 H 10 H Basophils % (Manual) 1 2 Myelocytes % (Man) 5 H Blast Cells % (Manual) 1 H Abs Neuts (Manual) 0.4 L* 0.5 L* Nucleated RBCs/100 WBC 8 H 21 H Differential Comment . . Dohle Bodies Present H Platelet Estimate Low L Low L Platelet Morphology Normal Normal Target Cells 2+ H 1+ H Ovalocytes 1+ H Acanthocytes (Spur) Occ H Haptoglobin 448 H Lab - Chemistry Results 09/27/17 09/28/17 09/28/17 21:52 05:14 05:14 Sodium 143 Potassium 2.8 L* Chloride 109 H D Carbon Dioxide 20.4 L Anion Gap 14 BUN 14 Creatinine 0.77 Estimated GFR Greater than 89 POC Glucose 95 Random Glucose 77 Lactic Acid 0.8 Calcium 7.1 L* D Prot Corrected Calcium 8.1 L Total Bilirubin 0.9 AST 18 ALT 23 Alkaline Phosphatase 114 Lactate Dehydrogenase C-Reactive Protein Total Protein 5.2 L Albumin 1.2 L 09/28/17 09/28/17 09/28/17 05:15 10:24 22:59 Sodium Potassium 3.0 L Chloride Carbon Dioxide Anion Gap BUN Creatinine Estimated GFR POC Glucose 79 Random Glucose Lactic Acid Calcium Prot Corrected Calcium Total Bilirubin AST ALT Alkaline Phosphatase Lactate Dehydrogenase C-Reactive Protein 31.00 H Total Protein Albumin 09/29/17 09/29/17 04:40 11:11 Sodium 144 Potassium 2.9 L* Chloride 111 H Carbon Dioxide 22.1 Anion Gap 11 BUN 12 Creatinine 0.66 Estimated GFR Greater than 89 POC Glucose Random Glucose 82 Lactic Acid Calcium 7.9 L D Prot Corrected Calcium Total Bilirubin 0.9 AST 17 ALT 24 Alkaline Phosphatase 139 H Lactate Dehydrogenase 331 H C-Reactive Protein Total Protein 5.2 L Albumin 1.2 L Imaging: ITS Impressions Knee CT 09/27/17 00:00 CONCLUSION: 1. Left knee arthroplasty without fracture. 2. There does appear to be a joint effusion with fluid tracking anteriorly within the knee. Knee X-Ray 09/27/17 00:00 CONCLUSION: No acute left knee abnormality is identified. Total knee arthroplasty hardware demonstrates no acute finding. Possible small joint effusion. Tibia/Fibula X-Ray 09/27/17 00:00 CONCLUSION: No acute left leg abnormality is identified. Abdomen/Pelvis CT 09/27/17 08:10 CONCLUSION: 1. Mild hepatic steatosis. 2. Thickening of the colon secondary to lack of distention versus colitis. 3. Left lower lobe consolidation and/or atelectasis. There does appear to be a 1.4 cm cavitary area which makes consolidation likely. Chest X-Ray 09/27/17 08:10 CONCLUSION: Stable chest without evidence of acute cardiopulmonary process. Postsurgical changes in the lower cervical spine following anterior fusion. Head CT 09/27/17 08:10 CONCLUSION: No acute intracranial abnormality is seen. Chest CTA 09/27/17 08:22 CONCLUSION: 1. No pulmonary embolus. 2. Consolidation or atelectasis at the left lower lobe. Venous Doppler Study 09/29/17 00:00 CONCLUSION: No evidence of deep venous thrombosis. Physical Exam: GENERAL: Alert and oriented, no acute distress. HEENT: Pupils reactive to light. Extraocular movements intact. No icterus. NECK: Supple without adenopathy. No swelling. LUNGS: Decreased breath sounds bilateral. HEART: Regular S1 and S2 without murmurs or rubs or gallops. ABDOMEN: Obese, soft. EXTREMITIES: Marked swelling of the left knee. SKIN: No diffuse rash. NEUROLOGIC: Awake and alert and oriented. Nonfocal. PSYCH: Calm and cooperative. Assessment and Plan - Plan Neutropenic sepsis Leucopenia, pancytopenia: ? MTX, ? Psych meds, ? Sepsis contributing. Abdominal fold cellulitis. Groin cellulitis, Mons pubis cellulitis. H/o fall with scraping of left knee. Left knee hardware in place. CT with fluid collection. Left knee infection - wound culture has Pseudomonas and group B beta strep. Dysphagia: mucositis. Concern for Susy Esophagitis Recs: Continue Cefepime IV Continue Vanco IV. Continue Diflucan IV. Consider GI consult if dysphagia persists and inability to eat. Follow oral intake. Follow left leg for cellulitis. Reviewed notes: No concern for knee infection. Follow knee clinically if clinically worsens consider a WBC scan after dw ID. Dw : agree MTX high on culprit list of pancytopenia. He will consider Neupogen if counts dont improve. Please dw Hematology if counts drop Nystatin for LA to wounds. Nystatin swish swash for susy vs mucositis from pancytopenia. Diarrhea could also be from mucositis. R/o infectious causes such as cdiff if persists in view of recent antibiotic history.
--- NOTE | 2017-09-29 22:10 | P.PNGS ---
Subjective Patient reports: tolerating a regular diet (no acute issues) Physical Exam Vital signs: Vital Signs 09/28/17 23:40 09/28/17 23:42 09/29/17 04:00 Temperature 98.0 F 98.0 F 98.1 F Pulse Rate 63 63 69 Respiratory Rate 14 14 14 Blood Pressure 124/70 124/70 123/53 L Pulse Oximetry 95 95 95 09/29/17 08:00 09/29/17 09:45 09/29/17 10:56 Temperature 98.6 F Pulse Rate 105 H Respiratory Rate 16 Blood Pressure 144/69 H Pulse Oximetry 94 L 94 L 94 L 09/29/17 12:00 09/29/17 16:00 Temperature 98.1 F 98.3 F Pulse Rate 101 H 94 H Respiratory Rate 16 16 Blood Pressure 141/72 H 133/63 Pulse Oximetry 97 97 Intake & Output 09/29/17 09/29/17 09/30/17 06:59 18:59 06:59 Intake Total 1000 / 1000 Output Total 920 / 920 Balance 1000 / 1000 -920 / -920 Intake: IV 1000 / 1000 NS Inj 1,000 ML @ 100 mls/hr IV 1000 / 1000 .CONT .Q10H [facility] Rx#:[id number] KCl 20 mEq Premix Inj 20 meq In 0 / 0 100 ml @ 50 mls/hr IV.SIG Q2H PRN Rx#:[id number] Output: Urine Amount (Catheter) 920 / 920 Indwelling Urethral Catheter 920 / 920 Other: Date of Last Bowel Movement 09/28/17 09/28/17 # Bowel Movements 3 - Routine Skin Exam Present: intact (eschars to lower abdomne and thigh area) - Urinary Catheter Management Indwelling Urethral Catheter Cath placed during this visit: yes Reason for continuing: Severe pressure ulcer/wound Insertion date: 09/27/17 Insertion time: 08:20 Assessment and Plan - Plan 51 y/o f with multiple medical issues, skin lesions PLAN Wound care recs for skin barrier and dressin change no operative intervention at this time will consider debridement if failure of medical mgnt
[2017-09-30] MEDS: Sod Chloride 0.9% Inj 1,000 ML IV.CONT SCH ×4 (03:27→21:33)
[2017-09-30] MEDS: Chlorhexidine Gluconate 2% 1 Pack (2 Cloths) TOPICAL SCH (03:28)
[2017-09-30] MEDS ORDERED: Pharmacy Ordered Lab Info OTHER ONE ×2 (05:45→23:45)
[2017-09-30] MEDS: Vancomycin Inj 800 MG in Sodium Chlor 0.9% Inj 250 ML IV.SIG SCH (07:12)
[2017-09-30] MEDS: Duloxetine 60 MG DR Capsule PO SCH (09:33)
[2017-09-30] MEDS: traZODone 100 MG Tablet PO SCH (09:33)
[2017-09-30] MEDS: Nystatin Liq 500,000 UNIT/5 ML UDC SWISH-SWAL SCH ×4 (09:33→20:37)
[2017-09-30] MEDS: Pantoprazole Sodium 20 MG DR Tablet PO SCH (09:33)
[2017-09-30] MEDS: dilTIAZem 60 MG Tablet PO SCH ×4 (09:33→20:36)
[2017-09-30] MEDS: Folic Acid Inj 1 MG/0.2 ML VIAL IM SCH (09:35)
--- NOTE | 2017-09-30 10:09 | P.PNFP ---
Subjective Interval history: Patient seen and examined at bedside. Patient reports minimal leg pain. She is having decrease p.o. intake due to poor appetite. Nurse reports patient has had diarrhea overnight. Patient is alert and oriented 1 (only self) disease. No visual hallucinations this morning. Abdominal dressing for rash under pannus changed yesterday. Patient received Zofran overnight for nausea. <Nikole Washington D - 09/30/17 11:51> Results - Labs Result diagrams: 10/02/17 06:39 10/02/17 06:39 <Maddy Jackson M - 10/02/17 13:29> Abnormal lab results 09/27/17 10/02/17 10/02/17 Range/Units 11:27 06:39 06:39 WBC 30.1 H D (4.0-11.0) th/mm3 RBC 3.59 L (4.00-5.30) mil/mm3 Hgb 9.6 L (11.6-15.3) gm/dL Hct 28.4 L (35.0-46.0) % MCV 79.0 L (80.0-100.0) fL MCH 26.6 L (27.0-34.0) pg RDW 20.7 H (11.6-17.2) % Plt Count 106 L (150-450) th/mm3 Band Neuts % (Manual) 9 H (0-6) % Metamyelocytes % (Man) 5 H (0-1) % Myelocytes % (Man) 7 H (0-0) % Abs Neuts (Manual) 24.1 H (1.8-7.7) th/mm3 Nucleated RBCs/100 WBC 1 H (0-0) /100 WBC Toxic Vacuolation Present H (None) Platelet Estimate Low L (Normal) Potassium 3.1 L (3.5-5.1) meq/L Chloride 110 H (98-107) meq/L Random Glucose 54 L (74-106) mg/dL Calcium 7.8 L (8.5-10.1) mg/dL Alkaline Phosphatase 158 H (45-117) U/L Total Protein 5.2 L (6.4-8.2) g/dL Albumin 1.4 L (3.4-5.0) g/dL MTS Gel Crossmatch See Detail Short CBC 10/02/17 Range/Units 06:39 WBC 30.1 H D (4.0-11.0) th/mm3 Hgb 9.6 L (11.6-15.3) gm/dL Hct 28.4 L (35.0-46.0) % Plt Count 106 L (150-450) th/mm3 BMP 10/02/17 06:39 Sodium 143 Potassium 3.1 L Chloride 110 H Carbon Dioxide 23.3 BUN 7 Creatinine 0.57 Calcium 7.8 L Liver Function 10/02/17 Range/Units 06:39 Total Bilirubin 0.7 (0.2-1.0) mg/dL AST 17 (15-37) U/L ALT 24 (10-53) U/L Alkaline Phosphatase 158 H (45-117) U/L Albumin 1.4 L (3.4-5.0) g/dL <Maddy Jackson - 10/02/17 13:29> Abnormal lab results 09/29/17 09/30/17 Range/Units 11:11 00:04 Plt Count 62 L (150-450) th/mm3 Haptoglobin 448 H (30-200) mg/dL Lactate Dehydrogenase 331 H (84-246) U/L Short CBC 09/30/17 Range/Units 00:04 Plt Count 62 L (150-450) th/mm3 <Nikole Washington - 09/30/17 10:09> - Imaging Impressions Venous Doppler Study 09/29/17 00:00 CONCLUSION: No evidence of deep venous thrombosis. <Nikole Washington - 09/30/17 10:09> Physical Exam Vital signs: Vital Signs 10/01/17 16:00 10/01/17 17:57 10/01/17 20:00 Temperature 98.1 F 98.5 F Pulse Rate 104 H 88 Respiratory Rate 18 18 Blood Pressure 125/63 144/71 H Pulse Oximetry 100 100 96 10/02/17 00:00 10/02/17 04:00 10/02/17 08:00 Temperature 99.1 F 98.1 F 98.4 F Pulse Rate 74 89 110 H Respiratory Rate 18 18 20 Blood Pressure 158/76 H 150/77 H 145/69 H Pulse Oximetry 96 99 97 10/02/17 09:00 Temperature Pulse Rate 110 H Respiratory Rate Blood Pressure Pulse Oximetry Intake & Output 10/01/17 10/02/17 10/02/17 18:59 06:59 18:59 Intake Total 1100 / 1100 100 / 100 Output Total 850 / 850 Balance 1100 / 1100 -750 / -750 Weight 66.6 kg Intake: IV 1100 / 1100 100 / 100 NS Inj 1,000 ML @ 100 mls/hr IV 1000 / 1000 .CONT .Q10H [facility] Rx#:[id number] Maxipime Inj 2,000 MG In NS Inj 100 / 100 100 / 100 100 ML @ 200 mls/hr IV.SIG Q8H [facility] Rx#:[id number] Output: Urine Amount (Catheter) 850 / 850 Indwelling Urethral Catheter 850 / 850 Other: Date of Last Bowel Movement 10/01/17 10/01/17 # Bowel Movements 1 <Maddy Jackson - 10/02/17 13:29> Vital Signs 09/29/17 10:56 09/29/17 12:00 09/29/17 16:00 Temperature 98.1 F 98.3 F Pulse Rate 101 H 94 H Respiratory Rate 16 16 Blood Pressure 141/72 H 133/63 Pulse Oximetry 94 L 97 97 09/29/17 20:00 09/29/17 21:00 09/29/17 21:47 Temperature 98.4 F Pulse Rate 107 H 110 H Respiratory Rate 17 Blood Pressure 140/73 Pulse Oximetry 96 97 09/30/17 00:00 09/30/17 05:50 Temperature 98.9 F 98 F Pulse Rate 115 H 88 Respiratory Rate 20 22 Blood Pressure 138/80 128/88 Pulse Oximetry 97 98 Intake & Output 09/29/17 09/30/17 09/30/17 18:59 06:59 18:59 Intake Total 350 / 350 2450 / 2450 300 / 300 Output Total 2470 / 2470 Balance 350 / 350 -20 / -20 300 / 300 Weight 113 kg Intake: IV 350 / 350 1000 / 1000 300 / 300 NS Inj 1,000 ML @ 100 mls/hr IV 1000 / 1000 .CONT .Q10H [facility] Rx#:[id number] Maxipime Inj 2,000 MG In NS Inj 100 / 100 100 / 100 100 ML @ 200 mls/hr IV.SIG Q8H [facility] Rx#:[id number] Diflucan 400 mg Premix Bag 200 200 / 200 ML @ 100 mls/hr IV.SIG Q24H [facility] Rx#:[id number] Vancomycin Inj 800 MG In NS Inj 250 / 250 250 ML @ 250 mls/hr IV.SIG Q18H [facility] Rx#:[id number] Oral 1450 / 1450 Output: Urine Amount (Catheter) 2469 / 2470 Indwelling Urethral Catheter 2469 Other: Date of Last Bowel Movement 09/28/17 09/29/17 # Bowel Movements 3 # Emeses 1 <Nikole Washington 09/30/17 10:09> - Constitutional no acute distress <Nikole Ws[place]ington 09/30/17 11:51> - Routine HEENT Exam Head: Present: normocephalic, atraumatic <Nikole Washington 09/30/17 11:51> Eye: Present: EOMI, PERRL <Nikole Washington 09/30/17 11:51> ENT: Present: mucous membranes dry <Nikole Washington 09/30/17 11:51> - Routine Neck Exam Present: supple <Nikole Washington 09/30/17 11:51> - Routine Respiratory Exam Present: CTA bilaterally. Absent: accessory muscle use <Nikole Washington 11:51> - Routine Cardiovascular Exam Present: RRR, S1, S2. Absent: murmur, gallop, rubs <Nikole Washington 11:51> - Routine Abdominal Exam Present: soft, normoactive bowel sounds, tenderness (Mild tenderness to palpation on right and left lower quadrants). Absent: rebound, guarding < FelixNikole 09/30/17 11:51> - Routine Extremities Exam Present: edema, full ROM (3/5 strength on LE BL), pulses intact, calf tenderness (mild tenderness to palpation on Left LE). Absent: cyanosis, clubbing <Nikole Washington Debbie 09/30/17 11:51> - Routine Skin Exam Present: rash (abdominal rash, under abdominal folds, no bleeding, dressing in place, dry, clean and intact ) <JimmiedoNikole Debbie 09/30/17 11:51> - Routine Neurological Exam Present: alert (oriented to self, unable to state yr or current location), CN II -XII intact <Nikole Washington D - 09/30/17 11:51> - Routine Psychiatric Exam Present: cooperative. Absent: suicidal ideation, homicidal ideation, auditory hallucinations, visual hallucinations, tactile hallucinations, agitated < CalzadoLucieNikole D - 09/30/17 11:51> - Urinary Catheter Management Indwelling Urethral Catheter Cath placed during this visit: no <Maddy Jackson - 10/02/17 13:29> yes <Nikole Washington D 09/30/17 11:51> Insertion date: 09/27/17 <CalzaLucie duranly D - 09/30/17 10:09> Insertion time: 08:20 <Calluis antoniodoLucieNikole D 09/30/17 10:09> Assessment and Plan - Assessment (1) Sepsis Code(s): A41.9 - Sepsis, unspecified organism Status: Resolved (2) Cellulitis of knee, left Code(s): L03.116 - Cellulitis of left lower limb Status: Acute (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 - Infection and inflammatory reaction due to unspecified internal joint prosthesis, initial encounter Status: Suspected (4) Neutropenia Code(s): D70.9 - Neutropenia, unspecified Status: Suspected (5) Anemia Code(s): D64.9 - Anemia, unspecified Status: Resolved (6) Pneumonia Code(s): J18.9 - Pneumonia, unspecified organism Status: Acute (7) Diarrhea Code(s): R19.7 - Diarrhea, unspecified Status: Acute (8) Schizophrenia Code(s): F20.9 - Schizophrenia, unspecified Status: Chronic (9) Hypertension Code(s): I10 - Essential (primary) hypertension Status: Acute (10) Fungal infection of skin of abdomen Code(s): B36.9 - Superficial mycosis, unspecified Status: Acute (11) Nutrition, metabolism, and development symptoms Code(s): R63.8 - Other symptoms and signs concerning food and fluid intake Status: Acute <Maddy Jackson - 10/02/17 13:29> (1) Sepsis Code(s): A41.9 - Sepsis, unspecified organism Status: Resolved Plan: On admission patient found to be in severe sepsis with tachycardia (110), new onset neutropenia (WBC 0.9), Lactic acid of 3.1, and AMS. Probable source is thought to be pulmonary and/or cellulitis or prosthetic joint infection of left leg or knee, respectively. In the ED patient received 2 L of normal saline, vancomycin 1 g x1 and Zosyn 4.5 g x1. Chest CTA showed no evidence of atelectasis or consolidation of left lower lobe. Wound culture taken from Left knee grew pseudomonas and group B strep. urine and blood cultures show no growth after 3 days. Patient also has skin infection on abdomen and groin that appears to be fundal. ID and wound care following. Left Leg erythema has resolved. Patient still had mild tenderness to palpation along left knee and left calf. +2 edema noted on Left LE. continue to monitor. - Continue with ID recommendations - Follow wound care instructions - Continue vanco and cefepime for broad-spectrum coverage - Continue fluconazole - Continue Nystatin (2) Cellulitis of knee, left Code(s): L03.116 - Cellulitis of left lower limb Status: Acute Plan: See plan above for sepsis. Her states that there was drainage from the knee and infection for weeks before she presented to the hospital. She has taken approximately 2 weeks of p.o. Keflex 500 mg. 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 She completed rehabilitation and was discharged home August 23. Patient recently treated with antibiotics for left leg infection. Patient was on approximately 2 weeks of po Keflex 500 mg. Swelling and purulent discharge from incision has improved according to . Today no drainage from wound was appreciated, erythema resolved, +2 edema and mild tenderness present on Left LE. - See plan above for sepsis (4) Neutropenia Code(s): D70.9 - Neutropenia, unspecified Status: Acute Plan: Patient presenting with new onset neutropenia with WBC of (0.9). Prior blood work reviewed and white blood cells were within normal limits. Neutropenia possibly due to sepsis, psychotic and/or RA medications or bone marrow malignancy. Patient currently on neutropenic precautions. Yesterday patient also become thrombocytopenic with a platelet count of 59, slight improvement in PTL to 62, likely caused by a combination of sepsis and current medication regimen. am lab still pending -WBC improved to 2.4. Heme/Onc following. Per Heme/Onc rheumatologic medicines including methotrexate and the unknown biologic that she was taking have been held. - Continue to monitor WBC -f/u HIT results -pt off heparin SQ - Contact Heme/Onc if decline for possible G-CSF support (5) Anemia Code(s): D64.9 - Anemia, unspecified Status: Acute Plan: Patient with new onset anemia. On admission H&H found to be 5.5/16.3. On review of chart patient had baseline H&H of 8.2/24 on July/2017. Patient denies any blood in her stool. In the ED patient was found to be guaiac negative. Patient post 3 units of prbc. H/H today stable thus far. Rheumatologic medications are the possible culprit vs psychiatric medications. Ferritin at 1,768 on 09/27/17. - Continue to trend CBC - Continue folic acid - Transfuse as necessary. (6) Pneumonia Code(s): J18.9 - Pneumonia, unspecified organism Status: Acute Plan: Patient found to have left lower lobe consolidation on chest CTA. See plan above for sepsis (7) Diarrhea Code(s): R19.7 - Diarrhea, unspecified Status: Acute Plan: Patient with 3-day history of diarrhea in the setting of recent antibiotic use. Nurse reports diarrhea over night. - Follow-up C. difficile PCR (8) Schizophrenia Code(s): F20.9 - Schizophrenia, unspecified Status: Chronic Plan: Patient with chronic history of schizophrenia. Patient with active hallucinations of seeing someone out to get her. On exam patient was calm and cooperative at time with circumstantial speech pattern. Denies suicidal ideation. AAOx1. Denied auditory or tactile hallucinations. Per Psychiatry continue with Abilify 30 mg for psychosis, okay to continue buspirone 30 mg, trazodone 100 mg and Cymbalta 60 mg, but hold anticholinergics to avoid more cognitive impairment. - Consider one-to-one sitter if patient becomes agitated - Follow Psych recommendations (9) Hypertension Code(s): I10 - Essential (primary) hypertension Status: Acute Plan: Patient with history of HTN on home diltiazem. - Continue cardizem -continue to monitor (10) Elevated creatine kinase Code(s): R74.8 - Abnormal levels of other serum enzymes Status: Acute Plan: Patient with increased creatinine of 1.5. improved - Continue with IV fluids at maintenance - Continue to monitor - Avoid nephrotoxic agents (11) Nutrition, metabolism, and development symptoms Code(s): R63.8 - Other symptoms and signs concerning food and fluid intake Status: Acute Plan: Fluids: 100mls/hr Electrolytes: Replete as needed Nutrition: cardiac diet, continue to monitor po intake, supplement with ensure DVT prophylaxis: SCDs <Nikole Washington - 09/30/17 11:23> - Assessment and Plan The exam, history, and the medical decision-making described in the above note were completed with the assistance of the resident physician. I reviewed and agree with the findings presented. I attest that I had a [id number] encounter with the patient on the same day, and personally performed and documented my assessment and findings in the medical record. Suspect her platelets will improve over time. Appreciate help of hematology. <Maddy Jackson M - 10/02/17 13:29> <Nikole Washington D - Last Filed: 09/30/17 11:23> (1) Sepsis Qualifiers: Sepsis type: sepsis due to unspecified organism Qualified Code(s): A41.9 - Sepsis, unspecified organism (4) Neutropenia Qualifiers: Neutropenia type: unspecified Qualified Code(s): D70.9 - Neutropenia, unspecified (5) Anemia Qualifiers: Anemia type: unspecified type Qualified Code(s): D64.9 - Anemia, unspecified (6) Pneumonia Qualifiers: Pneumonia type: due to unspecified organism Laterality: left Lung location: lower lobe of lung Qualified Code(s): J18.1 - Lobar pneumonia, unspecified organism (9) Hypertension Qualifiers: Hypertension type: essential hypertension Qualified Code(s): I10 - Essential (primary) hypertension <Maddy Jackson M - Last Filed: 10/02/17 13:29> (1) Sepsis Qualifiers: Sepsis type: sepsis due to unspecified organism Qualified Code(s): A41.9 - Sepsis, unspecified organism (4) Neutropenia Qualifiers: Neutropenia type: unspecified Qualified Code(s): D70.9 - Neutropenia, unspecified (5) Anemia Qualifiers: Anemia type: unspecified type Qualified Code(s): D64.9 - Anemia, unspecified (6) Pneumonia Qualifiers: Pneumonia type: due to unspecified organism Laterality: left Lung location: lower lobe of lung Qualified Code(s): J18.1 - Lobar pneumonia, unspecified organism (9) Hypertension Qualifiers: Hypertension type: essential hypertension Qualified Code(s): I10 - Essential (primary) hypertension <Nikole Washington D - Last Filed: 09/30/17 11:23> (1) Sepsis Qualifiers: Sepsis type: sepsis due to unspecified organism Qualified Code(s): A41.9 - Sepsis, unspecified organism (4) Neutropenia Qualifiers: Neutropenia type: unspecified Qualified Code(s): D70.9 - Neutropenia, unspecified (5) Anemia Qualifiers: Anemia type: unspecified type Qualified Code(s): D64.9 - Anemia, unspecified (6) Pneumonia Qualifiers: Pneumonia type: due to unspecified organism Laterality: left Lung location: lower lobe of lung Qualified Code(s): J18.1 - Lobar pneumonia, unspecified organism (9) Hypertension Qualifiers: Hypertension type: essential hypertension Qualified Code(s): I10 - Essential (primary) hypertension <Maddy Jackson M - Last Filed: 10/02/17 13:29> (1) Sepsis Qualifiers: Sepsis type: sepsis due to unspecified organism Qualified Code(s): A41.9 - Sepsis, unspecified organism (4) Neutropenia Qualifiers: Neutropenia type: unspecified Qualified Code(s): D70.9 - Neutropenia, unspecified (5) Anemia Qualifiers: Anemia type: unspecified type Qualified Code(s): D64.9 - Anemia, unspecified (6) Pneumonia Qualifiers: Pneumonia type: due to unspecified organism Laterality: left Lung location: lower lobe of lung Qualified Code(s): J18.1 - Lobar pneumonia, unspecified organism (9) Hypertension Qualifiers: Hypertension type: essential hypertension Qualified Code(s): I10 - Essential (primary) hypertension
--- NOTE | 2017-09-30 10:10 | P.PNONC ---
Subjective Interval history: Afebrile Patient much more alert, talkative this morning Answering all questions very appropriately. Complains of pain with cleaning her danyelle-anal area, groin wounds Objective Vital Signs/Intake & Output: Vital Signs 09/29/17 10:56 09/29/17 12:00 09/29/17 16:00 Temperature 98.1 F 98.3 F Pulse Rate 101 H 94 H Respiratory Rate 16 16 Blood Pressure 141/72 H 133/63 Pulse Oximetry 94 L 97 97 09/29/17 20:00 09/29/17 21:00 09/29/17 21:47 Temperature 98.4 F Pulse Rate 107 H 110 H Respiratory Rate 17 Blood Pressure 140/73 Pulse Oximetry 96 97 09/30/17 00:00 09/30/17 05:50 Temperature 98.9 F 98 F Pulse Rate 115 H 88 Respiratory Rate 20 22 Blood Pressure 138/80 128/88 Pulse Oximetry 97 98 Intake & Output 09/29/17 09/30/17 09/30/17 18:59 06:59 18:59 Intake Total 350 / 350 2450 / 2450 300 / 300 Output Total 2470 / 2470 Balance 350 / 350 -20 / -20 300 / 300 Weight 249 lb 1.957 oz Intake: IV 350 / 350 1000 / 1000 300 / 300 NS Inj 1,000 ML @ 100 mls/hr IV 1000 / 1000 .CONT .Q10H [facility] Rx#:[id number] Maxipime Inj 2,000 MG In NS Inj 100 / 100 100 / 100 100 ML @ 200 mls/hr IV.SIG Q8H [facility] Rx#:[id number] Diflucan 400 mg Premix Bag 200 200 / 200 ML @ 100 mls/hr IV.SIG Q24H [facility] Rx#:[id number] Vancomycin Inj 800 MG In NS Inj 250 / 250 250 ML @ 250 mls/hr IV.SIG Q18H [facility] Rx#:[id number] Oral 1450 / 1450 Output: Urine Amount (Catheter) 2470 / 2470 Indwelling Urethral Catheter 2470 / 2470 Other: Date of Last Bowel Movement 09/28/17 09/29/17 # Bowel Movements 3 # Emeses 1 Result Diagrams: 09/30/17 00:04 09/29/17 04:40 Laboratory Results: Laboratory Results - last 24 hr 09/29/17 09/29/17 09/30/17 11:11 11:11 00:04 Plt Count 62 L Haptoglobin 448 H APTT 28.5 Lactate Dehydrogenase 331 H Culture Results: Microbiology 09/27/17 12:50 Gram Stain - Final Wound - Hip Wound Culture - Final Pseudomonas aeruginosa Group B beta Strep 09/27/17 08:20 Urine Culture - Final Catheterized Urine No growth in 48 hours 09/27/17 08:25 Aerobic Blood Culture - Preliminary Blood - Peripheral No growth in 2 days Anaerobic Blood Culture - Preliminary No growth in 2 days 09/27/17 08:10 Aerobic Blood Culture - Preliminary Blood - Peripheral No growth in 2 days Anaerobic Blood Culture - Preliminary No growth in 2 days 09/27/17 22:10 Streptococcus pneumoniae Antigen (M - Final Urine - Catheterized Urine Presumptive negative for streptococcus pneumoniae antigen, suggesting no current or recent infection. Infection due to Streptococcus pneumoniae cannot be ruled out since the antigen present in the sample may be below the detection limit of the test. 09/27/17 22:10 Legionella Antigen - Final Urine - Catheterized Urine Presumptive negative for Legionella pneumophila serogroup 1 antigen in urine, suggesting no recent or recurrent infection. Infection due to Legionella cannot be ruled out since other serogroups and species may cause disease, antigen may not be present in urine in early infection, and the level of antigen present in the urine may be below the detection limit of the test. Imaging Studies: Impressions Venous Doppler Study 09/29/17 00:00 CONCLUSION: No evidence of deep venous thrombosis. Medications: Active Medications Generic Name Dose Route Start Last Admin Trade Name Freq PRN Reason Stop Dose Admin Acetaminophen 650 mg 09/27/17 23:39 09/28/17 05:10 Tylenol PO 650 mg Q4H PRN Administration Pain 1-10 Aripiprazole 30 mg 09/28/17 10:15 09/30/17 09:35 Abilify PO 30 mg DAILY [facility] Administration Buspirone HCl 15 mg 09/27/17 20:00 09/30/17 09:33 Buspar PO 15 mg TID [facility] Administration Chlorhexidine Gluconate 3 pack 09/28/17 04:00 09/30/17 03:28 Chlorhexidine 2% Cloth TOPICAL 10/03/17 03:59 Not Given DAILY@0400 [facility] Diltiazem HCl 60 mg 09/27/17 18:00 09/30/17 09:33 Cardizem PO 60 mg QID [facility] Administration Duloxetine HCl 60 mg 09/27/17 20:00 09/30/17 09:33 Cymbalta PO 60 mg DAILY [facility] Administration Folic Acid 1 mg 09/28/17 11:00 09/30/17 09:35 Folvite Inj IM 1 mg DAILY [facility] Administration Sodium Chloride 1,000 mls @ 100 mls/hr 09/27/17 13:15 09/30/17 03:27 Ns Inj IV.CONT 100 mls/hr .Q10H [facility] Administration Fluconazole 200 mls @ 100 mls/hr 09/27/17 23:00 09/30/17 07:15 Diflucan 400 Mg Premix Bag IV.SIG Infused Q24H [facility] Infusion Vancomycin HCl 800 mg/ Sodium 250 mls @ 250 mls/hr 09/28/17 18:00 09/30/17 07 :12 Chloride IV.SIG 250 mls/hr Q18H [facility] Administration Cefepime HCl 2,000 mg/ Sodium 100 mls @ 200 mls/hr 09/29/17 15:00 09/30/17 09 :48 Chloride IV.SIG 200 mls/hr Q8H [facility] Administration Nystatin 1 applicatio 09/28/17 13:00 09/30/17 09:49 Mycostatin Cream TOPICAL 1 applicatio QID [facility] Administration Nystatin 5 ml 09/29/17 09:00 09/30/17 09:33 Mycostatin Liq SWISH-SWAL 5 ml QID [facility] Administration Ondansetron HCl 4 mg 09/27/17 13:04 09/30/17 03:11 Zofran Odt SL 4 mg Q6H PRN Administration NAUSEA OR VOMITING Pantoprazole Sodium 20 mg 09/28/17 09:00 09/30/17 09:33 Protonix PO 20 mg DAILY [facility] Administration Pravastatin Sodium 40 mg 09/27/17 18:45 09/30/17 09:33 Pravachol PO 40 mg DAILY [facility] Administration Senna/Docusate Sodium 1 tab 09/27/17 13:04 09/27/17 20:54 Danyelle-Colace PO 1 tab BID PRN Administration CONSTIPATION Sennosides 17.2 mg 09/27/17 13:04 09/27/17 20:55 Senokot PO 17.2 mg Q12H PRN Administration Moderate Constipation Trazodone HCl 100 mg 09/27/17 18:00 09/30/17 09:33 Desyrel PO 100 mg DAILY [facility] Administration Objective Remarks: GENERAL: Morbidly obese older female getting cleaned by MANAGER RN. She is alert and talkative this morning. There does not appear to be any obvious blood in stool. SKIN: Multiple ulcerated, excoriated areas to pannus, inner thighs. Skin appears macerated. Dressing covering. HEAD: Normocephalic. EYES: No scleral icterus. No injection or drainage conjunctivae are pale. NECK: Supple, trachea midline. No JVD or lymphadenopathy. CARDIOVASCULAR: Regular rate and rhythm without murmurs. RESPIRATORY: Decreased bibasilar breath sounds secondary to poor inspiratory effort. GASTROINTESTINAL: Obese. Non-tender. Dressing covering. EXTREMITIES: LLE edematous. MUSCULOSKELETAL: Generalized weakness. NEUROLOGICAL: Awake and alert. Follows commands. Moving all extremities. Assessment/Plan (1) Cellulitis of knee, left Code(s): L03.116 - Cellulitis of left lower limb Status: Acute (2) Sepsis Code(s): A41.9 - Sepsis, unspecified organism Status: Resolved (3) Neutropenia Code(s): D70.9 - Neutropenia, unspecified Status: Acute (4) Anemia Code(s): D64.9 - Anemia, unspecified Status: Acute - Plan Ms. Mcclain is a 51-year-old female with multiple medical comorbid conditions including schizophrenia, reported history of rheumatoid arthritis, osteoarthritis. 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 Had redness swelling and purulent discharge from the incision of the left TKA for much of August into September 2017. Presents to the hospital with increased confusion and progressive weakness. Clinical examination at time of presentation revealed significant erythema and edema of the left leg, patient also found to have skin wound involving the lower abdominal skin. CT imaging of the chest revealed a cavitary lesion in the left lower lobe, CT imaging of the abdomen pelvis revealed findings consistent with colitis, CT imaging of the left knee revealed edema around the left knee with fluid tracking to the surface. Recommendations: 1. CBC pending today. Check stool for occult blood. Monitor for results of HIT. If this is positive we will confirm with serotonin release assay. 2. Repeat ultrasound of the left lower extremity reveals no evidence of DVT. 3. Monitor blood counts, coags. 4. Start patient on G-CSF support for continued neutropenia. - Attending Statement The exam, history, and the medical decision-making described in the above note were completed with the assistance of the mid-level provider. I reviewed and agree with the findings presented. I attest that I had a [id number] encounter with the patient on the same day, and personally performed and documented my assessment and findings in the medical record. More awake conversing asking questions about her care. She has if she can walk. Her left knee is feeling better. We reviewed ultrasound results and was negative. She still neutropenic with ANC of 500. We will start G-CSF and monitor. Neutropenic precaution continue. Platelet counts are stable. Clinical suspicion for HI T is low. HIT antibodies are pending. DIC to be excluded with coags and fibrinogen. Monitor for bleeding. Stool Hemoccult is checked. (2) Sepsis Qualifiers: Sepsis type: sepsis due to unspecified organism Qualified Code(s): A41.9 - Sepsis, unspecified organism (3) Neutropenia Qualifiers: Neutropenia type: unspecified Qualified Code(s): D70.9 - Neutropenia, unspecified (4) Anemia Qualifiers: Anemia type: unspecified type Qualified Code(s): D64.9 - Anemia, unspecified
--- NOTE | 2017-09-30 19:10 | P.PNID ---
Subjective Remarks: ID coverage. 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 Post op it appears she was discharged to a rehab. She was discharged from the rehab to home with her on August 23. Patient reports she lives at home with her who is on disability. Unsure of nature of disability at this time and his ability to take care of her. She was reportedly able to ambulate on her own initially followed by weakness and need for walker and then to a point where she did not want to get out of bed. It has been reported to others that she had some discharge at the left surgical site area and ortho surgeon prescribed oral keflex which reportedly lead to some improvement. She reportedly completed a week of antibiotic treatment with last day scheduled for today with some improvement in her knee pain. However her stated that she was starting to have more drainage from her knee just over the past day or so. He had pointed to several areas that had been draining pus from just above and just below the knee. He stated that a cup full of pus would drain at a time. Additionally the abdominal fold wounds appear to have been present for atleast 3 weeks now. Additionally patient has a psychiatric history and is on medications such as Cymbalta and Abilify. She actively hallucinates per dw resident team and psych would like to resume her meds that are on hold due to severe neutropenia. With this background patient presents to the ED with complaints of worsening shortness of breath and mental status accompanied with symptoms of diarrhea (3 days, non-bloody) and decreased p.o. intake (5 days). She was also brought into the hospital due to infection of her knee that improved with Keflex p.o but now has returned with new additional drainage over the past few days. Pertinent positives: Weakness, dysuria, headaches, subjective fevers. History of diaphoresis, chills and bilateral leg pain. Difficulty swallowing, odynophagia like symptoms and loss of taste. history of nausea and vomiting. Diarrhea, abdominal pain. ID consulted for evaluation and Mment of Left knee prosthetic joint infection and neutropenia. Patient is sleepy. Notes that she has pain in the left knee. Appears lethargic. Shakes her head and answers to questions. Afebrile. Allergies/Adverse Reactions: Allergies amoxicillin Allergy (Verified 09/27/17 17:54) Swelling Objective Vital Signs 09/29/17 20:00 09/29/17 21:00 09/29/17 21:47 Temperature 98.4 F Pulse Rate 107 H 110 H Respiratory Rate 17 Blood Pressure 140/73 Pulse Oximetry 96 97 09/30/17 00:00 09/30/17 05:50 09/30/17 08:00 Temperature 98.9 F 98 F 98.7 F Pulse Rate 115 H 88 90 Respiratory Rate 20 22 18 Blood Pressure 138/80 128/88 169/78 H Pulse Oximetry 97 98 97 09/30/17 12:00 09/30/17 12:36 Temperature 99.2 F Pulse Rate 101 H Respiratory Rate 18 Blood Pressure 141/70 H Pulse Oximetry 97 96 Intake & Output 09/30/17 09/30/17 10/01/17 06:59 18:59 06:59 Intake Total 2450 / 2450 400 / 400 Output Total 2470 / 2470 Balance -20 / -20 400 / 400 Weight 113 kg Intake: IV 1000 / 1000 400 / 400 NS Inj 1,000 ML @ 100 mls/hr IV 1000 / 1000 .CONT .Q10H [facility] Rx#:[id number] Maxipime Inj 2,000 MG In NS Inj 200 / 200 100 ML @ 200 mls/hr IV.SIG Q8H [facility] Rx#:[id number] Diflucan 400 mg Premix Bag 200 200 / 200 ML @ 100 mls/hr IV.SIG Q24H [facility] Rx#:[id number] Oral 1450 / 1450 Output: Urine Amount (Catheter) 2470 / 2470 Indwelling Urethral Catheter 2470 / 2470 Other: Date of Last Bowel Movement 09/29/17 09/29/17 # Emeses 1 09/27/17 08:25 Blood - Peripheral Aerobic Blood Culture - Preliminary No growth in 3 days 09/27/17 08:25 Blood - Peripheral Anaerobic Blood Culture - Preliminary No growth in 3 days 09/27/17 08:10 Blood - Peripheral Aerobic Blood Culture - Preliminary No growth in 3 days 09/27/17 08:10 Blood - Peripheral Anaerobic Blood Culture - Preliminary No growth in 3 days 09/27/17 12:50 Wound - Hip Gram Stain - Final 09/27/17 12:50 Wound - Hip Wound Culture - Final Pseudomonas aeruginosa Group B beta Strep 09/27/17 08:20 Catheterized Urine Urine Culture - Final No growth in 48 hours 09/27/17 22:10 Urine - Catheterized Urine Streptococcus pneumoniae Antigen ( M - Final Presumptive negative for streptococcus pneumoniae antigen, suggesting no current or recent infection. Infection due to Streptococcus pneumoniae cannot be ruled out since the antigen present in the sample may be below the detection limit of the test. 09/27/17 22:10 Urine - Catheterized Urine Legionella Antigen - Final Presumptive negative for Legionella pneumophila serogroup 1 antigen in urine, suggesting no recent or recurrent infection. Infection due to Legionella cannot be ruled out since other serogroups and species may cause disease, antigen may not be present in urine in early infection, and the level of antigen present in the urine may be below the detection limit of the test. Lab - Hematology Results 09/29/17 09/29/17 09/30/17 04:40 11:11 00:04 WBC 2.4 L RBC 3.55 L Hgb 9.6 L Hct 28.3 L MCV 79.8 L MCH 26.9 L MCHC 33.7 RDW 21.3 H Plt Count 59 L D 62 L MPV 8.6 Prelim Diff (Auto) Manual diff required WBC Differential Manual diff final Seg Neuts % (Manual) 13 L Band Neuts % (Manual) 2 Lymphocytes % (Manual) 60 H Monocytes % (Manual) 7 Eosinophils % (Manual) 10 H Basophils % (Manual) 2 Myelocytes % (Man) 5 H Blast Cells % (Manual) 1 H Abs Neuts (Manual) 0.5 L* Nucleated RBCs/100 WBC 21 H Differential Comment . Platelet Estimate Low L Platelet Morphology Normal Target Cells 1+ H Acanthocytes (Spur) Occ H Haptoglobin 448 H Lab - Chemistry Results 09/28/17 09/29/17 09/29/17 22:59 04:40 11:11 Sodium 144 Potassium 3.0 L 2.9 L* Chloride 111 H Carbon Dioxide 22.1 Anion Gap 11 BUN 12 Creatinine 0.66 Estimated GFR Greater than 89 Random Glucose 82 Calcium 7.9 L D Total Bilirubin 0.9 AST 17 ALT 24 Alkaline Phosphatase 139 H Lactate Dehydrogenase 331 H Total Protein 5.2 L Albumin 1.2 L Imaging: ITS Impressions Knee CT 09/27/17 00:00 CONCLUSION: 1. Left knee arthroplasty without fracture. 2. There does appear to be a joint effusion with fluid tracking anteriorly within the knee. Knee X-Ray 09/27/17 00:00 CONCLUSION: No acute left knee abnormality is identified. Total knee arthroplasty hardware demonstrates no acute finding. Possible small joint effusion. Tibia/Fibula X-Ray 09/27/17 00:00 CONCLUSION: No acute left leg abnormality is identified. Abdomen/Pelvis CT 09/27/17 08:10 CONCLUSION: 1. Mild hepatic steatosis. 2. Thickening of the colon secondary to lack of distention versus colitis. 3. Left lower lobe consolidation and/or atelectasis. There does appear to be a 1.4 cm cavitary area which makes consolidation likely. Chest X-Ray 09/27/17 08:10 CONCLUSION: Stable chest without evidence of acute cardiopulmonary process. Postsurgical changes in the lower cervical spine following anterior fusion. Head CT 09/27/17 08:10 CONCLUSION: No acute intracranial abnormality is seen. Chest CTA 09/27/17 08:22 CONCLUSION: 1. No pulmonary embolus. 2. Consolidation or atelectasis at the left lower lobe. Venous Doppler Study 09/29/17 00:00 CONCLUSION: No evidence of deep venous thrombosis. Physical Exam: GENERAL: Alert and oriented, no acute distress. HEENT: Pupils reactive to light. Extraocular movements intact. No icterus. NECK: Supple without adenopathy. No swelling. LUNGS: Decreased breath sounds bilateral. HEART: Regular S1 and S2 without murmurs or rubs or gallops. ABDOMEN: Obese, soft. Nontender EXTREMITIES: Marked swelling of the left knee. Positive warmth. Tiny ulceration couple millimeters the lower aspect of the knee surgical incision. SKIN: No diffuse rash. has rash at the abdominal folds. NEUROLOGIC: Awake and alert and oriented. Nonfocal. PSYCH: Calm and cooperative. Assessment and Plan - Plan IMPRESSION: Neutropenic sepsis Leucopenia, pancytopenia: ? MTX, ? Psych meds, ? Sepsis contributing. White blood cell count slightly increased. Neupogen started. Abdominal fold cellulitis. Groin cellulitis, Mons pubis cellulitis. H/o fall with scraping of left knee. Left knee hardware in place. CT with fluid collection. Left knee infection - wound culture has Pseudomonas and group B beta strep. Dysphagia: mucositis. Concern for Susy Esophagitis RECOMMENDATIONS: Continue Cefepime IV Continue Vanco IV. Continue Diflucan IV. Consider GI consult if dysphagia persists and inability to eat. Follow oral intake. Please dw Hematology if counts drop Nystatin for LA to wounds. Nystatin swish swash for susy vs mucositis from pancytopenia. Diarrhea could also be from mucositis. R/o infectious causes such as cdiff if persists in view of recent antibiotic history.
[2017-09-30] MEDS: Potassium Chlor 20 mEq Premix 20 MEQ/100 ML PIGGYBACK IV.SIG SCH (21:32)
[2017-10-01] MEDS: Vancomycin Inj 800 MG in Sodium Chlor 0.9% Inj 250 ML IV.SIG SCH (03:49)
[2017-10-01] MEDS: Chlorhexidine Gluconate 2% 1 Pack (2 Cloths) TOPICAL SCH (03:54)
[2017-10-01] MEDS: Potassium Chlor 20 mEq Premix 20 MEQ/100 ML PIGGYBACK IV.SIG SCH (07:39)
--- NOTE | 2017-10-01 08:32 | P.PNONC ---
Subjective Interval history: Patient seen and examined, vs, labs, microbiology, medications and sales operations consultant notes reviewed. Events over the past 48 hours were also reviewed. Subjectively; the patient offers few details as to symptoms. She seems to be alert but beyond that does not seem to be oriented to place situation or time. Most of the history is obtained from the family medicine residents, the patient' s who is at bedside and from the electronic health record. Objective Vital Signs/Intake & Output: Vital Signs 09/30/17 12:00 09/30/17 12:36 09/30/17 16:00 Temperature 99.2 F 98.6 F Pulse Rate 101 H 106 H Respiratory Rate 18 18 Blood Pressure 141/70 H 129/69 Pulse Oximetry 97 96 97 09/30/17 20:00 09/30/17 20:45 09/30/17 21:00 Temperature 97.9 F Pulse Rate 80 114 H Respiratory Rate 19 Blood Pressure 125/80 Pulse Oximetry 95 95 10/01/17 01:00 10/01/17 01:29 10/01/17 04:56 Temperature 98 F Pulse Rate 87 88 90 Respiratory Rate 20 Blood Pressure 118/80 Pulse Oximetry 96 10/01/17 05:45 Temperature 98.3 F Pulse Rate 75 Respiratory Rate 22 Blood Pressure 119/66 Pulse Oximetry 95 Intake & Output 09/30/17 10/01/17 10/01/17 18:59 06:59 18:59 Intake Total 1750 / 1750 1200 / 1200 Output Total 775 / 775 1800 / 1800 Balance 975 / 975 -600 / -600 Weight 113.5 kg Intake: IV 1750 / 1750 200 / 200 NS Inj 1,000 ML @ 100 mls/hr IV 1000 / 1000 .CONT .Q10H [facility] Rx#:[id number] Maxipime Inj 2,000 MG In NS Inj 300 / 300 100 / 100 100 ML @ 200 mls/hr IV.SIG Q8H [facility] Rx#:[id number] Diflucan 400 mg Premix Bag 200 200 / 200 ML @ 100 mls/hr IV.SIG Q24H [facility] Rx#:[id number] KCl 20 mEq Premix Inj 20 meq In 100 / 100 100 ml @ 50 mls/hr IV.SIG Q2H [facility] Rx#:[id number] Vancomycin Inj 800 MG In NS Inj 250 / 250 250 ML @ 250 mls/hr IV.SIG Q18H [facility] Rx#:[id number] Oral 1000 / 1000 Output: Urine Amount (Catheter) 775 / 775 1800 / 1800 Indwelling Urethral Catheter 775 / 775 1800 / 1800 Other: Date of Last Bowel Movement 09/29/17 09/29/17 # Bowel Movements 3 2 # Incontinent Bowel Movements 2 Result Diagrams: 09/30/17 00:04 09/29/17 04:40 Laboratory Results: Laboratory Results - last 24 hr 09/30/17 10/01/17 11:30 01:24 Stl C.difficile Tox PCR Negative St C. diff Tox Epid 027 Negative Vancomycin Trough 9.0 Culture Results: Microbiology 09/27/17 08:25 Aerobic Blood Culture - Preliminary Blood - Peripheral No growth in 3 days Anaerobic Blood Culture - Preliminary No growth in 3 days 09/27/17 08:10 Aerobic Blood Culture - Preliminary Blood - Peripheral No growth in 3 days Anaerobic Blood Culture - Preliminary No growth in 3 days 09/27/17 12:50 Gram Stain - Final Wound - Hip Wound Culture - Final Pseudomonas aeruginosa Group B beta Strep 09/27/17 08:20 Urine Culture - Final Catheterized Urine No growth in 48 hours 09/27/17 22:10 Streptococcus pneumoniae Antigen (M - Final Urine - Catheterized Urine Presumptive negative for streptococcus pneumoniae antigen, suggesting no current or recent infection. Infection due to Streptococcus pneumoniae cannot be ruled out since the antigen present in the sample may be below the detection limit of the test. 09/27/17 22:10 Legionella Antigen - Final Urine - Catheterized Urine Presumptive negative for Legionella pneumophila serogroup 1 antigen in urine, suggesting no recent or recurrent infection. Infection due to Legionella cannot be ruled out since other serogroups and species may cause disease, antigen may not be present in urine in early infection, and the level of antigen present in the urine may be below the detection limit of the test. Medications: Active Medications Generic Name Dose Route Start Last Admin Trade Name Freq PRN Reason Stop Dose Admin Acetaminophen 650 mg 09/27/17 23:39 09/28/17 05:10 Tylenol PO 650 mg Q4H PRN Administration Pain 1-10 Aripiprazole 30 mg 09/28/17 10:15 09/30/17 09:35 Abilify PO 30 mg DAILY [facility] Administration Buspirone HCl 15 mg 09/27/17 20:00 07/15/18 18:02 Buspar PO 15 mg TID [facility] Administration Chlorhexidine Gluconate 3 pack 09/28/17 04:00 10/01/17 03:54 Chlorhexidine 2% Cloth TOPICAL 10/03/17 03:59 Not Given DAILY@0400 [facility] Diltiazem HCl 60 mg 09/27/17 18:00 09/30/17 20:36 Cardizem PO 60 mg QID [facility] Administration Duloxetine HCl 60 mg 09/27/17 20:00 09/30/17 09:33 Cymbalta PO 60 mg DAILY [facility] Administration Filgrastim 480 mcg 09/30/17 14:00 09/30/17 14:57 Neupogen Inj SQ 480 mcg DAILY@1400 [facility] Administration Folic Acid 1 mg 09/28/17 11:00 09/30/17 09:35 Folvite Inj IM 1 mg DAILY [facility] Administration Sodium Chloride 1,000 mls @ 100 mls/hr 09/27/17 13:15 09/30/17 21:33 Ns Inj IV.CONT 100 mls/hr .Q10H [facility] Administration Fluconazole 200 mls @ 100 mls/hr 09/27/17 23:00 10/01/17 01:07 Diflucan 400 Mg Premix Bag IV.SIG 100 mls/hr Q24H [facility] Administration Vancomycin HCl 800 mg/ Sodium 250 mls @ 250 mls/hr 09/28/17 18:00 10/01/17 03 :49 Chloride IV.SIG 250 mls/hr Q18H [facility] Administration Cefepime HCl 2,000 mg/ Sodium 100 mls @ 200 mls/hr 09/29/17 15:00 10/01/17 06 :21 Chloride IV.SIG 200 mls/hr Q8H [facility] Administration Nystatin 1 applicatio 09/28/17 13:00 09/30/17 20:38 Mycostatin Cream TOPICAL 1 applicatio QID [facility] Administration Nystatin 5 ml 09/29/17 09:00 09/30/17 20:37 Mycostatin Liq SWISH-SWAL 5 ml QID [facility] Administration Ondansetron HCl 4 mg 09/27/17 13:04 09/30/17 21:31 Zofran Odt SL 4 mg Q6H PRN Administration NAUSEA OR VOMITING Pantoprazole Sodium 20 mg 09/28/17 09:00 09/30/17 09:33 Protonix PO 20 mg DAILY [facility] Administration Pravastatin Sodium 40 mg 09/27/17 18:45 09/30/17 09:33 Pravachol PO 40 mg DAILY [facility] Administration Senna/Docusate Sodium 1 tab 09/27/17 13:04 09/27/17 20:54 Kaykay-Colace PO 1 tab BID PRN Administration CONSTIPATION Sennosides 17.2 mg 09/27/17 13:04 09/27/17 20:55 Senokot PO 17.2 mg Q12H PRN Administration Moderate Constipation Trazodone HCl 100 mg 09/27/17 18:00 09/30/17 09:33 Desyrel PO 100 mg DAILY [facility] Administration Objective Remarks: GENERAL: Middle-aged female, laying in bed, awake, not acutely distressed. SKIN: Warm and dry, area of ulceration and desquamation noted in the midline inferior to the umbilicus as well as similar areas in the inguinal creases bilaterally.. HEAD: Normocephalic. EYES: No scleral icterus. No injection or drainage. Conjunctivae are pale. Oral exam: Some thrush noted but the amount of thrush is improved when compared to initial exam performed last week. No ulceration noted. NECK: Supple, trachea midline. No JVD or lymphadenopathy. LYMPHATIC: No adenopathy. CARDIOVASCULAR: Regular rate and rhythm without murmurs. RESPIRATORY: Poor inspiratory effort, on posterior examination there is good air movement over the upper and middle lung zones with decreased bibasilar breath sounds, no wheezes or rhonchi noted. No accessory muscle use. GASTROINTESTINAL: Abdomen soft, non-tender, nondistended. Skin ulceration inferior to the umbilicus with ulceration. EXTREMITIES: General decreased muscle mass no edema. MUSCULOSKELETAL: Generally decreased muscle mass noted. NEUROLOGICAL: No obvious motor deficits, she is generally weak, she is awake and alert. PSYCHIATRIC: Difficult to evaluate, patient does have history of schizophrenia. She does not seem to be actively hallucinating at this time Assessment/Plan (1) Cellulitis of knee, left Code(s): L03.116 - Cellulitis of left lower limb Status: Acute (2) Sepsis Code(s): A41.9 - Sepsis, unspecified organism Status: Resolved (3) Neutropenia Code(s): D70.9 - Neutropenia, unspecified Status: Acute (4) Anemia Code(s): D64.9 - Anemia, unspecified Status: Acute - Plan Ms. Mcclain is a 51-year-old female with multiple medical comorbid conditions including schizophrenia, reported history of rheumatoid arthritis, osteoarthritis. 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 Had redness swelling and purulent discharge from the incision of the left TKA for much of August into September 2017. Presents to the hospital with increased confusion and progressive weakness. Clinical examination at time of presentation revealed significant erythema and edema of the left leg, patient also found to have skin wound involving the lower abdominal skin. CT imaging of the chest revealed a cavitary lesion in the left lower lobe, CT imaging of the abdomen pelvis revealed findings consistent with colitis, CT imaging of the left knee revealed edema around the left knee with fluid tracking to the surface. Recommendations: 1. Pancytopenia: Likely related to myelosuppression secondary to methotrexate use. She is now on folic acid and did receive leucovorin earlier this hospitalization. For neutropenia, she was initiated on Neupogen injections on 09/30/2017. CBC drawn this morning, results are pending. 4 thrombocytopenia a heparin/platelet factor for antibody AMADA screening test was ordered, results are pending. 2. Repeat ultrasound of the left lower extremity reveals no evidence of DVT. 3. Monitor blood counts, coags. 4. Start patient on G-CSF support for continued neutropenia. (2) Sepsis Qualifiers: Sepsis type: sepsis due to unspecified organism Qualified Code(s): A41.9 - Sepsis, unspecified organism (3) Neutropenia Qualifiers: Neutropenia type: unspecified Qualified Code(s): D70.9 - Neutropenia, unspecified (4) Anemia Qualifiers: Anemia type: unspecified type Qualified Code(s): D64.9 - Anemia, unspecified
[2017-10-01 08:49] LABS: Hematocrit 27.8 % (35.0-46.0); Hemoglobin 9.4 gm/dL (11.6-15.3); Lymph % (Auto) 12.5 % (9.0-44.0); Mean Corpuscular HGB Conc 33.9 % (32.0-36.0); Mean Corpuscular Hemoglobin 27.1 pg (27.0-34.0); Mean Platelet Volume 8.9 fL (7.0-11.0); Neut % (Auto) 83.2 % (16.0-70.0); Platelet Count 83 th/mm3 (150-450); Red Blood Count 3.48 mil/mm3 (4.00-5.30); Red Cell Distribution Width 20.6 % (11.6-17.2); White Blood Count 18.2 th/mm3 (4.0-11.0)
[2017-10-01 08:50] LABS: Baso # (Auto) 0.1 th/mm3 (0.0-0.2); Baso % (Auto) 0.4 % (0.0-2.0); Eos # (Auto) 0.3 th/mm3 (0.0-0.4); Eos % (Auto) 1.5 % (0.0-4.0); Lymph # (Auto) 2.3 th/mm3 (1.0-4.8); Mono # (Auto) 0.4 th/mm3 (0.0-0.9); Mono % (Auto) 2.4 % (0.0-8.0); Neut # (Auto) 15.1 th/mm3 (1.8-7.7)
[2017-10-01 08:52] LABS: Alanine Aminotransferase 22 U/L (10-53); Albumin 1.3 g/dL (3.4-5.0); Anion Gap 9 meq/L (5-15); Aspartate Aminotransferase 15 U/L (15-37); Blood Urea Nitrogen 7 mg/dL (7-18); Calcium 7.5 mg/dL (8.5-10.1); Carbon Dioxide 24.3 meq/L (21.0-32.0); Chloride 109 meq/L (98-107); Glomerular Filtration Rate Greater Than 89 mL/min (>89); Glucose,Random 66 mg/dL (74-106); Magnesium 1.4 mg/dL (1.5-2.5); Potassium 3.1 meq/L (3.5-5.1); Sodium 142 meq/L (136-145)
[2017-10-01 08:54] LABS: Alkaline Phosphatase 139 U/L (45-117); Total Protein 5.2 g/dL (6.4-8.2)
[2017-10-01 08:57] LABS: INR 1.1 Ratio; Prothrombin Time 10.9 sec (9.8-11.6)
[2017-10-01 09:44] LABS: Eosinophils 4 % (0-4); Lymphocytes 6 % (9-44); Metamyelocytes 9 % (0-1); Monocytes 2 % (0-8); Myelocytes 7 % (0-0); Platelet Morphology Normal (Normal); Promyelocyte 1 % (0-0)
[2017-10-01 09:45] LABS: Target Cells 2+
[2017-10-01] MEDS: Nystatin Liq 500,000 UNIT/5 ML UDC SWISH-SWAL SCH ×4 (09:59→22:01)
[2017-10-01] MEDS: dilTIAZem 60 MG Tablet PO SCH ×4 (10:00→22:03)
[2017-10-01] MEDS: traZODone 100 MG Tablet PO SCH (10:00)
[2017-10-01] MEDS: Duloxetine 60 MG DR Capsule PO SCH (10:00)
[2017-10-01] MEDS: Pantoprazole Sodium 20 MG DR Tablet PO SCH (10:00)
[2017-10-01] MEDS: Folic Acid Inj 1 MG/0.2 ML VIAL IM SCH (10:01)
--- NOTE | 2017-10-01 10:29 | P.PNFP ---
Subjective Interval history: Patient seen at bedside this morning. Overnight patient reports nausea and vomiting but now feels well. Patient is alert and reports feeling the same as yesterday, her was present for the interview and physical. She denies any pain at the present. Patient still reports little to no desire to eat and does not know why. Her case was discussed with her and all questions were answered to his satisfaction. She denies any chest pain, sob, nausea, or vomiting. Of note: Routine blood exam was not collected over the weekend due to inability to get a good stick. MD not notified of the issue until this AM. <Yon Carney O - 10/01/17 20:05> Results - Labs Result diagrams: 10/02/17 06:39 10/02/17 06:39 <Maddy Jackson M - 10/02/17 13:31> Abnormal lab results 09/27/17 10/02/17 10/02/17 Range/Units 11:27 06:39 06:39 WBC 30.1 H D (4.0-11.0) th/mm3 RBC 3.59 L (4.00-5.30) mil/mm3 Hgb 9.6 L (11.6-15.3) gm/dL Hct 28.4 L (35.0-46.0) % MCV 79.0 L (80.0-100.0) fL MCH 26.6 L (27.0-34.0) pg RDW 20.7 H (11.6-17.2) % Plt Count 106 L (150-450) th/mm3 Band Neuts % (Manual) 9 H (0-6) % Metamyelocytes % (Man) 5 H (0-1) % Myelocytes % (Man) 7 H (0-0) % Abs Neuts (Manual) 24.1 H (1.8-7.7) th/mm3 Nucleated RBCs/100 WBC 1 H (0-0) /100 WBC Toxic Vacuolation Present H (None) Platelet Estimate Low L (Normal) Potassium 3.1 L (3.5-5.1) meq/L Chloride 110 H (98-107) meq/L Random Glucose 54 L (74-106) mg/dL Calcium 7.8 L (8.5-10.1) mg/dL Alkaline Phosphatase 158 H (45-117) U/L Total Protein 5.2 L (6.4-8.2) g/dL Albumin 1.4 L (3.4-5.0) g/dL MTS Gel Crossmatch See Detail Short CBC 10/02/17 Range/Units 06:39 WBC 30.1 H D (4.0-11.0) th/mm3 Hgb 9.6 L (11.6-15.3) gm/dL Hct 28.4 L (35.0-46.0) % Plt Count 106 L (150-450) th/mm3 BMP 10/02/17 06:39 Sodium 143 Potassium 3.1 L Chloride 110 H Carbon Dioxide 23.3 BUN 7 Creatinine 0.57 Calcium 7.8 L Liver Function 10/02/17 Range/Units 06:39 Total Bilirubin 0.7 (0.2-1.0) mg/dL AST 17 (15-37) U/L ALT 24 (10-53) U/L Alkaline Phosphatase 158 H (45-117) U/L Albumin 1.4 L (3.4-5.0) g/dL <Maddy Jackson - 10/02/17 13:31> Abnormal lab results 10/01/17 10/01/17 10/01/17 Range/Units 08:08 08:08 08:08 WBC 18.2 H (4.0-11.0) th/mm3 RBC 3.48 L (4.00-5.30) mil/mm3 Hgb 9.4 L (11.6-15.3) gm/dL Hct 27.8 L (35.0-46.0) % RDW 20.6 H (11.6-17.2) % Plt Count 83 L D (150-450) th/mm3 Neut % (Auto) 83.2 H (16.0-70.0) % Neut # (Auto) 15.1 H (1.8-7.7) th/mm3 Band Neuts % (Manual) 23 H (0-6) % Lymphocytes % (Manual) 6 L (9-44) % Metamyelocytes % (Man) 9 H (0-1) % Myelocytes % (Man) 7 H (0-0) % Promyelocytes % (Man) 1 H (0-0) % Abs Neuts (Manual) 16.0 H (1.8-7.7) th/mm3 Platelet Estimate Low L (Normal) Target Cells 2+ H (None) Fibrinogen 653 H (227-377) mg/dL Potassium 3.1 L (3.5-5.1) meq/L Chloride 109 H (98-107) meq/L Random Glucose 66 L (74-106) mg/dL Calcium 7.5 L (8.5-10.1) mg/dL Magnesium 1.4 L (1.5-2.5) mg/dL Alkaline Phosphatase 139 H (45-117) U/L Total Protein 5.2 L (6.4-8.2) g/dL Albumin 1.3 L (3.4-5.0) g/dL Short CBC 10/01/17 Range/Units 08:08 WBC 18.2 H (4.0-11.0) th/mm3 Hgb 9.4 L (11.6-15.3) gm/dL Hct 27.8 L (35.0-46.0) % Plt Count 83 L D (150-450) th/mm3 BMP 10/01/17 08:08 Sodium 142 Potassium 3.1 L Chloride 109 H Carbon Dioxide 24.3 BUN 7 Creatinine 0.53 Calcium 7.5 L Liver Function 10/01/17 Range/Units 08:08 Total Bilirubin 0.7 (0.2-1.0) mg/dL AST 15 (15-37) U/L ALT 22 (10-53) U/L Alkaline Phosphatase 139 H (45-117) U/L Albumin 1.3 L (3.4-5.0) g/dL <Yon Carney O - 10/01/17 10:29> Physical Exam Vital signs: Vital Signs 10/01/17 16:00 10/01/17 17:57 10/01/17 20:00 Temperature 98.1 F 98.5 F Pulse Rate 104 H 88 Respiratory Rate 18 18 Blood Pressure 125/63 144/71 H Pulse Oximetry 100 100 96 10/02/17 00:00 10/02/17 04:00 10/02/17 08:00 Temperature 99.1 F 98.1 F 98.4 F Pulse Rate 74 89 110 H Respiratory Rate 18 18 20 Blood Pressure 158/76 H 150/77 H 145/69 H Pulse Oximetry 96 99 97 10/02/17 09:00 Temperature Pulse Rate 110 H Respiratory Rate Blood Pressure Pulse Oximetry Intake & Output 10/01/17 10/02/17 10/02/17 18:59 06:59 18:59 Intake Total 1100 / 1100 100 / 100 Output Total 850 / 850 Balance 1100 / 1100 -750 / -750 Weight 66.6 kg Intake: IV 1100 / 1100 100 / 100 NS Inj 1,000 ML @ 100 mls/hr IV 1000 / 1000 .CONT .Q10H [facility] Rx#:[id number] Maxipime Inj 2,000 MG In NS Inj 100 / 100 100 / 100 100 ML @ 200 mls/hr IV.SIG Q8H [facility] Rx#:[id number] Output: Urine Amount (Catheter) 850 / 850 Indwelling Urethral Catheter 850 / 850 Other: Date of Last Bowel Movement 10/01/17 10/01/17 # Bowel Movements 1 <RenettaMaddy M - 10/02/17 13:31> Vital Signs 09/30/17 12:00 09/30/17 12:36 09/30/17 16:00 Temperature 99.2 F 98.6 F Pulse Rate 101 H 106 H Respiratory Rate 18 18 Blood Pressure 141/70 H 129/69 Pulse Oximetry 97 96 97 09/30/17 20:00 09/30/17 20:45 09/30/17 21:00 Temperature 97.9 F Pulse Rate 80 114 H Respiratory Rate 19 Blood Pressure 125/80 Pulse Oximetry 95 95 10/01/17 01:00 10/01/17 01:29 10/01/17 04:56 Temperature 98 F Pulse Rate 87 88 90 Respiratory Rate 20 Blood Pressure 118/80 Pulse Oximetry 96 10/01/17 05:45 10/01/17 08:00 Temperature 98.3 F 97.7 F Pulse Rate 75 101 H Respiratory Rate 22 18 Blood Pressure 119/66 144/65 H Pulse Oximetry 95 97 Intake & Output 09/30/17 10/01/17 10/01/17 18:59 06:59 18:59 Intake Total 1750 / 1750 1200 / 1200 Output Total 775 / 775 1800 / 1800 Balance 975 / 975 -600 / -600 Weight 113.5 kg Intake: IV 1750 / 1750 200 / 200 NS Inj 1,000 ML @ 100 mls/hr IV 1000 / 1000 .CONT .Q10H [facility] Rx#:[id number] Maxipime Inj 2,000 MG In NS Inj 300 / 300 100 / 100 100 ML @ 200 mls/hr IV.SIG Q8H [facility] Rx#:[id number] Diflucan 400 mg Premix Bag 200 200 / 200 ML @ 100 mls/hr IV.SIG Q24H [facility] Rx#:[id number] KCl 20 mEq Premix Inj 20 meq In 100 / 100 100 ml @ 50 mls/hr IV.SIG Q2H [facility] Rx#:[id number] Vancomycin Inj 800 MG In NS Inj 250 / 250 250 ML @ 250 mls/hr IV.SIG Q18H [facility] Rx#:[id number] Oral 1000 / 1000 Output: Urine Amount (Catheter) 775 / 775 1800 / 1800 Indwelling Urethral Catheter 775 / 775 1800 / 1800 Other: Date of Last Bowel Movement 09/29/17 09/29/17 # Bowel Movements 3 2 # Incontinent Bowel Movements 2 <Yon Carney 10/01/17 10:29> - Constitutional no acute distress, morbidly obese, cooperative <Yon Carney 10/01/17 10:29 > - Routine HEENT Exam Head: Present: normocephalic, atraumatic <Yon Carney 10/01/17 10:29> Eye: Present: EOMI <Yon Carney 10/01/17 10:29> ENT: Present: mucous membranes moist <Yon Carney 10/01/17 10:29> - Routine Respiratory Exam Present: CTA bilaterally. Absent: accessory muscle use, patient mechanically ventilated <Yon Carney 10/01/17 10:29> - Routine Cardiovascular Exam Present: RRR, S1, S2. Absent: murmur, gallop, rubs <Yon Carney 10/01/17 10:29> - Routine Abdominal Exam Present: soft, normoactive bowel sounds, tenderness, wound. Absent: distended, rebound, guarding <Yon Carney 10/01/17 10:29> Comments: Patient has full thickness infection in between folds of abdomen and groin that have been treated with topical antifungal and dressed. Granulation tissue evident. <Yon Carney 10/01/17 10:29> - Routine Extremities Exam Present: pulses intact. Absent: cyanosis, edema, calf tenderness <CarneyYon singletary Dimitri 10/01/17 10:29> Comments: Patient has surgical scar and previously draining wound on left knee. Wound no longer draining and not tender to palpation. There was no left knee effusion appreciated. Patient was able to slightly bend her knee but could not lift her left leg against gravity. <AngelikaYon Dimitri 10/01/17 10:29> - Routine Skin Exam Absent: intact <CarneyYon 10/01/17 10:29> Comments: Patient has full thickness infection in between folds of abdomen and groin that have been treated with topical antifungal and dressed. Granulation tissue evident. <oYn Carney 10/01/17 10:29> - Routine Neurological Exam Present: alert, oriented X3, moving all extremities, normal tone, normal speech. Absent: sensory deficit, motor deficit, altered mental status, facial asymmetry <Yon Carney 10/01/17 10:29> - Detailed Neurological Exam: Coma Scale Eye Opening: Spontaneous <CarneyYon ritter 10/01/17 10:29> Verbal Response: Oriented <Yon Carney 10/01/17 10:29> Motor Response: Obey commands <Yon Carney 10/01/17 10:29> Chelle Coma Scale Total: 15 <CarneyYon ritter 10/01/17 20:16> - Routine Psychiatric Exam Present: normal affect, normal thought process, cooperative, good insight. Absent: anxious, agitated <Yon Carney 10/01/17 10:29> - Urinary Catheter Management Indwelling Urethral Catheter Cath placed during this visit: no <Maddy Jackson 10/02/17 13:31> yes <Yon Carney 10/01/17 20:16> Reason for continuing: Severe pressure ulcer/wound <Yon Carney 10/01/17 10:29> Insertion date: 09/27/17 <Yon Carney 10/01/17 10:29> Insertion time: 08:20 <Yon Carney 10/01/17 10:29> Assessment and Plan - Assessment (1) Sepsis Code(s): A41.9 - Sepsis, unspecified organism Status: Resolved (2) Cellulitis of knee, left Code(s): L03.116 - Cellulitis of left lower limb Status: Acute (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 - Infection and inflammatory reaction due to unspecified internal joint prosthesis, initial encounter Status: Suspected (4) Neutropenia Code(s): D70.9 - Neutropenia, unspecified Status: Suspected (5) Anemia Code(s): D64.9 - Anemia, unspecified Status: Resolved (6) Pneumonia Code(s): J18.9 - Pneumonia, unspecified organism Status: Acute (7) Diarrhea Code(s): R19.7 - Diarrhea, unspecified Status: Acute (8) Schizophrenia Code(s): F20.9 - Schizophrenia, unspecified Status: Chronic (9) Hypertension Code(s): I10 - Essential (primary) hypertension Status: Acute (10) Fungal infection of skin of abdomen Code(s): B36.9 - Superficial mycosis, unspecified Status: Acute (11) Nutrition, metabolism, and development symptoms Code(s): R63.8 - Other symptoms and signs concerning food and fluid intake Status: Acute <Maddy Jackson Parris - 10/02/17 13:31> (1) Sepsis Code(s): A41.9 - Sepsis, unspecified organism Status: Resolved Plan: On admission patient found to be in severe sepsis with tachycardia (110), new onset neutropenia (WBC 0.9), Lactic acid of 3.1, and AMS. Probable source is thought to be pulmonary and/or cellulitis or prosthetic joint infection of left leg or knee, respectively. In the ED patient received 2 L of normal saline, vancomycin 1 g x1 and Zosyn 4.5 g x1. Chest CTA showed no evidence of atelectasis or consolidation of left lower lobe. Wound culture taken from Left knee grew pseudomonas and group B strep. Urine and blood cultures show no growth after 3 days. Patient also has skin infection on abdomen and groin that appears to be fundal. ID and wound care following. Left Leg erythema has resolved. - Continue with ID recommendations - Follow wound care instructions - Continue vanco and cefepime for broad-spectrum coverage - Continue fluconazole - Continue Nystatin (2) Cellulitis of knee, left Code(s): L03.116 - Cellulitis of left lower limb Status: Acute Plan: See plan above for sepsis. Her states that there was drainage from the knee and infection for weeks before she presented to the hospital. She has taken approximately 2 weeks of p.o. Keflex 500 mg. 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 She completed rehabilitation and was discharged home August 23. Patient recently treated with antibiotics for left leg infection. Patient was on approximately 2 weeks of po Keflex 500 mg. Today no drainage from wound was appreciated, erythema resolved, +2 edema and mild tenderness present on Left LE. Per Ortho, examination of left knee shows no evidence of infection. - See plan above for sepsis (4) Neutropenia Code(s): D70.9 - Neutropenia, unspecified Status: Acute Plan: Patient presenting with new onset neutropenia with WBC of (0.9). Prior blood work reviewed and white blood cells were within normal limits. Neutropenia possibly due to sepsis, psychotic and/or RA medications or bone marrow malignancy. Patient currently on neutropenic precautions. Yesterday patient also become thrombocytopenic with a platelet count of 59, slight improvement in PTL to 62, likely caused by a combination of sepsis and current medication regimen. Patient received Neupogen, white blood cell count now 18.2 compared to 2.4 on September 29, 2017. Heme/Onc following. Per Heme/Onc rheumatologic medicines including methotrexate and the unknown biologic that she was taking have been held. - Continue to monitor WBC - f/u HIT results - Pt off heparin SQ (5) Anemia Code(s): D64.9 - Anemia, unspecified Status: Acute Plan: Patient with new onset anemia. On admission H&H found to be 5.5/16.3. On review of chart patient had baseline H&H of 8.2/24 on July/2017. Patient denies any blood in her stool. In the ED patient was found to be guaiac negative. Patient post 3 units of prbc. H/H today stable thus far. Rheumatologic medications are the possible culprit vs psychiatric medications. Ferritin at 1,768 on 09/27/17. Stool Hemoccult pending. H\H today 9.4\27.8. -follow-up with stool Hemoccult - Continue to trend CBC - Continue folic acid - Transfuse as necessary. (6) Pneumonia Code(s): J18.9 - Pneumonia, unspecified organism Status: Acute Plan: Patient found to have left lower lobe consolidation on chest CTA. On examination today lungs clear to auscultation, no shortness of breath, and satting 100% on 2 L nasal cannula. See plan above for sepsis (7) Diarrhea Code(s): R19.7 - Diarrhea, unspecified Status: Acute Plan: Patient with 3-day history of diarrhea in the setting of recent antibiotic use. Patient reports soiling herself overnight on examination some fecal material on blankets on examination this morning. All bowel regimens held. Patient C. difficile negative. -Follow-up in a.m. (8) Schizophrenia Code(s): F20.9 - Schizophrenia, unspecified Status: Chronic Plan: Patient with chronic history of schizophrenia. Patient with active hallucinations of seeing someone out to get her. On exam patient was calm and cooperative at time with circumstantial speech pattern. Denies suicidal ideation. AAOx1. Denied auditory or tactile hallucinations. Per Psychiatry continue with Abilify 30 mg for psychosis, okay to continue buspirone 30 mg, trazodone 100 mg and Cymbalta 60 mg, but hold anticholinergics to avoid more cognitive impairment. - Consider one-to-one sitter if patient becomes agitated - Follow Psych recommendations (9) Hypertension Code(s): I10 - Essential (primary) hypertension Status: Acute Plan: Patient with history of HTN on home diltiazem. Blood pressures have been stable at 140s-120s systolic. 125\63 today. - Continue cardizem -continue to monitor (10) Elevated creatine kinase Code(s): R74.8 - Abnormal levels of other serum enzymes Status: Resolved Plan: Patient with increased creatinine of 1.5. greatly improved, creatinine today 0.53. - Continue with IV fluids at maintenance - Continue to monitor - Avoid nephrotoxic agents (11) Nutrition, metabolism, and development symptoms Code(s): R63.8 - Other symptoms and signs concerning food and fluid intake Status: Acute Plan: Fluids: 100mls/hr Electrolytes: Replete as needed Nutrition: cardiac diet, continue to monitor po intake, supplement with ensure DVT prophylaxis: SCDs <Yon Carney - 10/01/17 20:06> - Assessment and Plan The exam, history, and the medical decision-making described in the above note were completed with the assistance of the resident physician. I reviewed and agree with the findings presented. I attest that I had a wslm-[id number] encounter with the patient on the same day, and personally performed and documented my assessment and findings in the medical record. She is pancytopenic today. However her white count is increasing daily. She does need her psychiatric medications. These medications can suppress her bone marrow but I believe the methotrexate is causing her problems now. With low platelets the recommendation is normally to hold the Lovenox. She does have pain in her left leg. that is the area where she had the drainage. There is been a concern about a DVT in that leg her previous ultrasound was normal. Her leg was edematous from the cellulitis. A new ultrasound will be ordered. <Yon Carney - 10/01/17 10:29> - Attending Attestation The exam, history, and the medical decision-making described in the above note were completed with the assistance of the resident physician. I reviewed and agree with the findings presented. I attest that I had a kbto-ab-viex encounter with the patient on the same day, and personally performed and documented my assessment and findings in the medical record. Very pleased that she has had such a good response to the Neupogen. We will need to ask infectious disease about the antibiotic and length of treatment. Ms. Mcclain is very eager to improve and gain strength. <Maddy Jackson M - 10/02/17 13:31> <Yon Carney O - Last Filed: 10/01/17 20:06> (1) Sepsis Qualifiers: Sepsis type: sepsis due to unspecified organism Qualified Code(s): A41.9 - Sepsis, unspecified organism (4) Neutropenia Qualifiers: Neutropenia type: unspecified Qualified Code(s): D70.9 - Neutropenia, unspecified (5) Anemia Qualifiers: Anemia type: unspecified type Qualified Code(s): D64.9 - Anemia, unspecified (6) Pneumonia Qualifiers: Pneumonia type: due to unspecified organism Laterality: left Lung location: lower lobe of lung Qualified Code(s): J18.1 - Lobar pneumonia, unspecified organism (9) Hypertension Qualifiers: Hypertension type: essential hypertension Qualified Code(s): I10 - Essential (primary) hypertension <Maddy Jackson M - Last Filed: 10/02/17 13:31> (1) Sepsis Qualifiers: Sepsis type: sepsis due to unspecified organism Qualified Code(s): A41.9 - Sepsis, unspecified organism (4) Neutropenia Qualifiers: Neutropenia type: unspecified Qualified Code(s): D70.9 - Neutropenia, unspecified (5) Anemia Qualifiers: Anemia type: unspecified type Qualified Code(s): D64.9 - Anemia, unspecified (6) Pneumonia Qualifiers: Pneumonia type: due to unspecified organism Laterality: left Lung location: lower lobe of lung Qualified Code(s): J18.1 - Lobar pneumonia, unspecified organism (9) Hypertension Qualifiers: Hypertension type: essential hypertension Qualified Code(s): I10 - Essential (primary) hypertension <Yon Carney O - Last Filed: 10/01/17 20:06> (1) Sepsis Qualifiers: Sepsis type: sepsis due to unspecified organism Qualified Code(s): A41.9 - Sepsis, unspecified organism (4) Neutropenia Qualifiers: Neutropenia type: unspecified Qualified Code(s): D70.9 - Neutropenia, unspecified (5) Anemia Qualifiers: Anemia type: unspecified type Qualified Code(s): D64.9 - Anemia, unspecified (6) Pneumonia Qualifiers: Pneumonia type: due to unspecified organism Laterality: left Lung location: lower lobe of lung Qualified Code(s): J18.1 - Lobar pneumonia, unspecified organism (9) Hypertension Qualifiers: Hypertension type: essential hypertension Qualified Code(s): I10 - Essential (primary) hypertension <Maddy Jackson - Last Filed: 10/02/17 13:31> (1) Sepsis Qualifiers: Sepsis type: sepsis due to unspecified organism Qualified Code(s): A41.9 - Sepsis, unspecified organism (4) Neutropenia Qualifiers: Neutropenia type: unspecified Qualified Code(s): D70.9 - Neutropenia, unspecified (5) Anemia Qualifiers: Anemia type: unspecified type Qualified Code(s): D64.9 - Anemia, unspecified (6) Pneumonia Qualifiers: Pneumonia type: due to unspecified organism Laterality: left Lung location: lower lobe of lung Qualified Code(s): J18.1 - Lobar pneumonia, unspecified organism (9) Hypertension Qualifiers: Hypertension type: essential hypertension Qualified Code(s): I10 - Essential (primary) hypertension
--- NOTE | 2017-10-01 12:28 | ECHRPT ---
Indication: SEPSIS ENDOCARDITIS CONCLUSIONS The left ventricular systolic function is hyperdynamic with an estimated ejection fraction in the ra nge of 65- 70%. Normal wall motion. Normal left ventricular size. Wall thickness is measured at the upper li mits of normal. No valvular abnormalities. BP: / HR: Rhythm: MEASUREMENTS (Male / Female) Normal Values Technical Quality: 2D ECHO LV Diastolic Diameter PLAX 4.4 cm 4.2 - 5.9 / 3.9 - 5.3 cm LV Systolic Diameter PLAX 3.1 cm IVS Diastolic Thickness 1.4 cm 0.6 - 1.0 / 0.6 - 0.9 cm LVPW Diastolic Thickness 0.5 cm 0.6 - 1.0 / 0.6 - 0.9 cm LV Relative Wall Thickness 0.4 LA Systolic Diameter LX 3.3 cm 3.0 - 4.0 / 2.7 - 3.8 cm DOPPLER TR Peak Velocity 315.0 cm/s TR Peak Gradient 39.7 mmHg Right Atrial Pressure 5.0 mmHg Pulmonary Artery Systolic Pressu 44.7 mmHg Right Ventricular Systolic Press 44.7 mmHg FINDINGS LEFT VENTRICLE Normal left ventricular size. Wall thickness is measured at the upper limits of normal. The left ventricular systolic function is hyperdynamic with an estimated ejection fraction in the ra nge of 65- 70%. Normal wall motion. RIGHT VENTRICLE Normal right ventricular size and systolic function. LEFT ATRIUM The left atrial size is normal. RIGHT ATRIUM The right atrial size is normal. ATRIAL SEPTUM Normal atrial septal thickness without atrial level shunting by limited color doppler interrogation. AORTA The aortic root and proximal ascending aorta are normal in size on limited imaging. MITRAL VALVE Structurally normal mitral valve. No mitral valve stenosis or regurgitation. AORTIC VALVE Trileaflet aortic valve. No aortic valve stenosis or regurgitation. TRICUSPID VALVE Structurally normal tricuspid valve. No tricuspid valve stenosis or regurgitation. PULMONARY VALVE No pulmonary valve regurgitation or stenosis. VESSELS The inferior vena cava is normal in size. PERICARDIUM No pericardial effusion. Lewis Diop MD (Electronically Signed) Final Date:01 October 2017 12:27
[2017-10-01] MEDS: Sod Chloride 0.9% Inj 1,000 ML IV.CONT SCH (12:43)
[2017-10-01] MEDS: Acetaminophen 325 MG Tablet PO PRN (12:57)
--- NOTE | 2017-10-01 13:30 | P.PNOP ---
Subjective Interval history: no complaints of left knee pain patient feeling better and improved with medical tx of pancytopenia continued discomfort involving her lower abdominal wall; cultures + for pseudomonas and strep Physical Exam Vital signs: Vital Signs 09/30/17 16:00 09/30/17 20:00 09/30/17 20:45 Temperature 98.6 F 97.9 F Pulse Rate 106 H 80 Respiratory Rate 18 19 Blood Pressure 129/69 125/80 Pulse Oximetry 97 95 95 09/30/17 21:00 10/01/17 01:00 10/01/17 01:29 Temperature 98 F Pulse Rate 114 H 87 88 Respiratory Rate 20 Blood Pressure 118/80 Pulse Oximetry 96 10/01/17 04:56 10/01/17 05:45 10/01/17 08:00 Temperature 98.3 F 97.7 F Pulse Rate 90 75 101 H Respiratory Rate 22 18 Blood Pressure 119/66 144/65 H Pulse Oximetry 95 97 10/01/17 09:00 10/01/17 12:00 Temperature 98.2 F Pulse Rate 103 H 100 H Respiratory Rate 18 Blood Pressure 132/64 Pulse Oximetry 100 Intake & Output 09/30/17 10/01/17 10/01/17 18:59 06:59 18:59 Intake Total 1750 / 1750 1200 / 1200 1000 / 1000 Output Total 775 / 775 1800 / 1800 Balance 975 / 975 -600 / -600 1000 / 1000 Weight 113.5 kg Intake: IV 1750 / 1750 200 / 200 1000 / 1000 NS Inj 1,000 ML @ 100 mls/hr IV 1000 / 1000 1000 / 1000 .CONT .Q10H [facility] Rx#:[id number] Maxipime Inj 2,000 MG In NS Inj 300 / 300 100 / 100 100 ML @ 200 mls/hr IV.SIG Q8H [facility] Rx#:[id number] Diflucan 400 mg Premix Bag 200 200 / 200 ML @ 100 mls/hr IV.SIG Q24H [facility] Rx#:[id number] KCl 20 mEq Premix Inj 20 meq In 100 / 100 100 ml @ 50 mls/hr IV.SIG Q2H [facility] Rx#:[id number] Vancomycin Inj 800 MG In NS Inj 250 / 250 250 ML @ 250 mls/hr IV.SIG Q18H [facility] Rx#:[id number] Oral 1000 / 1000 Output: Urine Amount (Catheter) 775 / 775 1800 / 1800 Indwelling Urethral Catheter 775 / 775 1800 / 1800 Other: Date of Last Bowel Movement 09/29/17 09/29/17 10/01/17 # Bowel Movements 3 2 1 # Incontinent Bowel Movements 2 - Constitutional no acute distress, morbidly obese - Routine Neck Exam Present: supple - Routine Abdominal Exam Comments: continued superficial wounds lower abdominal wall - Detailed Lower Extremity Exam Knee: Left normal inspection, Left swelling (no swelling ), Left tenderness (no tenderness ), Left decreased ROM (left knee post op stiffness ) - Urinary Catheter Management Indwelling Urethral Catheter Cath placed during this visit: yes Reason for continuing: Severe pressure ulcer/wound Insertion date: 09/27/17 Insertion time: 08:20 Results - Labs CBC & Chem 7: 10/01/17 08:08 10/01/17 08:08 Laboratory Results - last 24 hr 09/28/17 09/30/17 10/01/17 22:59 11:30 01:24 WBC RBC Hgb Hct MCV MCH MCHC RDW Plt Count MPV Prelim Diff (Auto) Neut % (Auto) Lymph % (Auto) [place] % (Auto) Eos % (Auto) Baso % (Auto) Neut # (Auto) Lymph # (Auto) [place] # (Auto) Eos # (Auto) Baso # (Auto) WBC Differential Seg Neuts % (Manual) Band Neuts % (Manual) Lymphocytes % (Manual) Monocytes % (Manual) Eosinophils % (Manual) Metamyelocytes % (Man) Myelocytes % (Man) Promyelocytes % (Man) Abs Neuts (Manual) Differential Comment Platelet Estimate Platelet Morphology Target Cells PT INR APTT Fibrinogen Sodium Potassium Chloride Carbon Dioxide Anion Gap BUN Creatinine Estimated GFR Random Glucose Calcium Magnesium Total Bilirubin AST ALT Alkaline Phosphatase Total Protein Albumin Stl C.difficile Tox PCR Negative St C. diff Tox Epid 027 Negative Vancomycin Trough 9.0 Methotrexate 0.05 10/01/17 10/01/17 10/01/17 08:08 08:08 08:08 WBC 18.2 H RBC 3.48 L Hgb 9.4 L Hct 27.8 L MCV 80.0 MCH 27.1 MCHC 33.9 RDW 20.6 H Plt Count 83 L D MPV 8.9 Prelim Diff (Auto) Slide review pending Neut % (Auto) 83.2 H Lymph % (Auto) 12.5 [place] % (Auto) 2.4 Eos % (Auto) 1.5 Baso % (Auto) 0.4 Neut # (Auto) 15.1 H Lymph # (Auto) 2.3 [place] # (Auto) 0.4 Eos # (Auto) 0.3 Baso # (Auto) 0.1 WBC Differential Manual diff final Seg Neuts % (Manual) 48 Band Neuts % (Manual) 23 H Lymphocytes % (Manual) 6 L Monocytes % (Manual) 2 Eosinophils % (Manual) 4 Metamyelocytes % (Man) 9 H Myelocytes % (Man) 7 H Promyelocytes % (Man) 1 H Abs Neuts (Manual) 16.0 H Differential Comment . Platelet Estimate Low L Platelet Morphology Normal Target Cells 2+ H PT 10.9 INR 1.1 APTT 25.0 Fibrinogen 653 H Sodium 142 Potassium 3.1 L Chloride 109 H Carbon Dioxide 24.3 Anion Gap 9 BUN 7 Creatinine 0.53 Estimated GFR Greater than 89 Random Glucose 66 L Calcium 7.5 L Magnesium 1.4 L Total Bilirubin 0.7 AST 15 ALT 22 Alkaline Phosphatase 139 H Total Protein 5.2 L Albumin 1.3 L Stl C.difficile Tox PCR St C. diff Tox Epid 027 Vancomycin Trough Methotrexate Microbiology 09/30/17 11:30 Stool Stool Occult Blood ([facility]) - Final Hemoccult negative 09/27/17 08:25 Blood - Peripheral Aerobic Blood Culture - Preliminary No growth in 4 days 09/27/17 08:25 Blood - Peripheral Anaerobic Blood Culture - Preliminary No growth in 4 days 09/27/17 08:10 Blood - Peripheral Aerobic Blood Culture - Preliminary No growth in 4 days 09/27/17 08:10 Blood - Peripheral Anaerobic Blood Culture - Preliminary No growth in 4 days Assessment and Plan - Assessment and Plan s/p L TKA 07/26/[address] Dasha Frausto neutropenia cellulitis lower abdominal wall IV abx per ID left knee examination shows no evidence of infection PT- out of bed for ambulation if okay with medicine anticipate d/c to SNF when stable med management
[2017-10-01] MEDS ORDERED: Vancomycin Inj 1,250 MG in Sodium Chlor 0.9% Inj 250 ML IV.SIG SCH (14:00)
--- NOTE | 2017-10-01 19:11 | P.PNID ---
Subjective Remarks: ID coverage. 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 Post op it appears she was discharged to a rehab. She was discharged from the rehab to home with her on August 23. Patient reports she lives at home with her who is on disability. Unsure of nature of disability at this time and his ability to take care of her. She was reportedly able to ambulate on her own initially followed by weakness and need for walker and then to a point where she did not want to get out of bed. It has been reported to others that she had some discharge at the left surgical site area and ortho surgeon prescribed oral keflex which reportedly lead to some improvement. She reportedly completed a week of antibiotic treatment with last day scheduled for today with some improvement in her knee pain. However her stated that she was starting to have more drainage from her knee just over the past day or so. He had pointed to several areas that had been draining pus from just above and just below the knee. He stated that a cup full of pus would drain at a time. Additionally the abdominal fold wounds appear to have been present for atleast 3 weeks now. Additionally patient has a psychiatric history and is on medications such as Cymbalta and Abilify. She actively hallucinates per dw resident team and psych would like to resume her meds that are on hold due to severe neutropenia. With this background patient presents to the ED with complaints of worsening shortness of breath and mental status accompanied with symptoms of diarrhea (3 days, non-bloody) and decreased p.o. intake (5 days). She was also brought into the hospital due to infection of her knee that improved with Keflex p.o but now has returned with new additional drainage over the past few days. Pertinent positives: Weakness, dysuria, headaches, subjective fevers. History of diaphoresis, chills and bilateral leg pain. Difficulty swallowing, odynophagia like symptoms and loss of taste. history of nausea and vomiting. Diarrhea, abdominal pain. ID consulted for evaluation and Mment of Left knee prosthetic joint infection and neutropenia. Patient is sleepy. Arouses and is more interactive. She denies pain. Denies chills. Afebrile. White blood cell count improved with Neupogen. Denies nausea. Antibiotics: Cefepime Fluconazole Vancomycin Allergies/Adverse Reactions: Allergies amoxicillin Allergy (Verified 09/27/17 17:54) Swelling Objective Vital Signs 09/30/17 20:00 09/30/17 20:45 09/30/17 21:00 Temperature 97.9 F Pulse Rate 80 114 H Respiratory Rate 19 Blood Pressure 125/80 Pulse Oximetry 95 95 10/01/17 01:00 10/01/17 01:29 10/01/17 04:56 Temperature 98 F Pulse Rate 87 88 90 Respiratory Rate 20 Blood Pressure 118/80 Pulse Oximetry 96 10/01/17 05:45 10/01/17 08:00 10/01/17 09:00 Temperature 98.3 F 97.7 F Pulse Rate 75 101 H 103 H Respiratory Rate 22 18 Blood Pressure 119/66 144/65 H Pulse Oximetry 95 97 10/01/17 12:00 10/01/17 16:00 10/01/17 17:57 Temperature 98.2 F 98.1 F Pulse Rate 100 H 104 H Respiratory Rate 18 18 Blood Pressure 132/64 125/63 Pulse Oximetry 100 100 100 Intake & Output 10/01/17 10/01/17 10/02/17 06:59 18:59 06:59 Intake Total 1300 / 1300 1000 / 1000 Output Total 1800 / 1800 Balance -500 / -500 1000 / 1000 Weight 113.5 kg Intake: IV 300 / 300 1000 / 1000 NS Inj 1,000 ML @ 100 mls/hr IV 1000 / 1000 .CONT .Q10H [facility] Rx#:[id number] Maxipime Inj 2,000 MG In NS Inj 200 / 200 100 ML @ 200 mls/hr IV.SIG Q8H [facility] Rx#:[id number] KCl 20 mEq Premix Inj 20 meq In 100 / 100 100 ml @ 50 mls/hr IV.SIG Q2H [facility] Rx#:[id number] Oral 1000 / 1000 Output: Urine Amount (Catheter) 1800 / 1800 Indwelling Urethral Catheter 1800 / 1800 Other: Date of Last Bowel Movement 09/29/17 10/01/17 # Bowel Movements 2 1 09/30/17 11:30 Stool Stool Occult Blood ([facility]) - Final Hemoccult negative 09/27/17 08:25 Blood - Peripheral Aerobic Blood Culture - Preliminary No growth in 4 days 09/27/17 08:25 Blood - Peripheral Anaerobic Blood Culture - Preliminary No growth in 4 days 09/27/17 08:10 Blood - Peripheral Aerobic Blood Culture - Preliminary No growth in 4 days 09/27/17 08:10 Blood - Peripheral Anaerobic Blood Culture - Preliminary No growth in 4 days 09/27/17 12:50 Wound - Hip Gram Stain - Final 09/27/17 12:50 Wound - Hip Wound Culture - Final Pseudomonas aeruginosa Group B beta Strep 09/27/17 08:20 Catheterized Urine Urine Culture - Final No growth in 48 hours Lab - Hematology Results 09/30/17 10/01/17 00:04 08:08 WBC 18.2 H RBC 3.48 L Hgb 9.4 L Hct 27.8 L MCV 80.0 MCH 27.1 MCHC 33.9 RDW 20.6 H Plt Count 62 L 83 L D MPV 8.9 Prelim Diff (Auto) Slide review pending Neut % (Auto) 83.2 H Lymph % (Auto) 12.5 [place] % (Auto) 2.4 Eos % (Auto) 1.5 Baso % (Auto) 0.4 Neut # (Auto) 15.1 H Lymph # (Auto) 2.3 [place] # (Auto) 0.4 Eos # (Auto) 0.3 Baso # (Auto) 0.1 WBC Differential Manual diff final Seg Neuts % (Manual) 48 Band Neuts % (Manual) 23 H Lymphocytes % (Manual) 6 L Monocytes % (Manual) 2 Eosinophils % (Manual) 4 Metamyelocytes % (Man) 9 H Myelocytes % (Man) 7 H Promyelocytes % (Man) 1 H Abs Neuts (Manual) 16.0 H Differential Comment . Platelet Estimate Low L Platelet Morphology Normal Target Cells 2+ H Lab - Chemistry Results 10/01/17 08:08 Sodium 142 Potassium 3.1 L Chloride 109 H Carbon Dioxide 24.3 Anion Gap 9 BUN 7 Creatinine 0.53 Estimated GFR Greater than 89 Random Glucose 66 L Calcium 7.5 L Magnesium 1.4 L Total Bilirubin 0.7 AST 15 ALT 22 Alkaline Phosphatase 139 H Total Protein 5.2 L Albumin 1.3 L Imaging: ITS Impressions Knee CT 09/27/17 00:00 CONCLUSION: 1. Left knee arthroplasty without fracture. 2. There does appear to be a joint effusion with fluid tracking anteriorly within the knee. Knee X-Ray 09/27/17 00:00 CONCLUSION: No acute left knee abnormality is identified. Total knee arthroplasty hardware demonstrates no acute finding. Possible small joint effusion. Tibia/Fibula X-Ray 09/27/17 00:00 CONCLUSION: No acute left leg abnormality is identified. Abdomen/Pelvis CT 09/27/17 08:10 CONCLUSION: 1. Mild hepatic steatosis. 2. Thickening of the colon secondary to lack of distention versus colitis. 3. Left lower lobe consolidation and/or atelectasis. There does appear to be a 1.4 cm cavitary area which makes consolidation likely. Chest X-Ray 09/27/17 08:10 CONCLUSION: Stable chest without evidence of acute cardiopulmonary process. Postsurgical changes in the lower cervical spine following anterior fusion. Head CT 09/27/17 08:10 CONCLUSION: No acute intracranial abnormality is seen. Chest CTA 09/27/17 08:22 CONCLUSION: 1. No pulmonary embolus. 2. Consolidation or atelectasis at the left lower lobe. Venous Doppler Study 09/29/17 00:00 CONCLUSION: No evidence of deep venous thrombosis. Physical Exam: GENERAL: Alert and oriented, no acute distress. HEENT: Pupils reactive to light. Extraocular movements intact. No icterus. NECK: Supple without adenopathy. No swelling. LUNGS: Decreased breath sounds bilateral. HEART: Regular S1 and S2 without murmurs or rubs or gallops. ABDOMEN: Obese, soft. Nontender. Ulcerations at the underside of abdominal folds bilaterally and also the proximal thighs. EXTREMITIES: Marked swelling of the left knee. Positive warmth. Tiny ulceration couple millimeters the lower aspect of the knee surgical incision. SKIN: No diffuse rash. NEUROLOGIC: Awake and alert and oriented. Nonfocal. PSYCH: Calm and cooperative. Assessment and Plan - Plan IMPRESSION: Neutropenic sepsis. White blood cell count improved with Neupogen. Leucopenia, pancytopenia: ? MTX, ? Psych meds, ? Sepsis contributing. Abdominal fold cellulitis/ulcerations. Groin cellulitis, Mons pubis cellulitis. H/o fall with scraping of left knee. Left knee hardware in place. CT with fluid collection. Left knee infection - wound culture has Pseudomonas and group B beta strep. Dysphagia: mucositis. Concern for Susy Esophagitis RECOMMENDATIONS: Continue Cefepime IV 2 g IV every 8 hours for 4 weeks for coverage of Pseudomonas left knee infection. As Levaquin PO 4 weeks. Stop vancomycin. Stop Diflucan IV. Wound care consult for wounds are at the abdomen and thighs. Nystatin swish swash for susy vs mucositis from pancytopenia. Course of IV treatment for 4 weeks because of hardware in place in the left knee. Okay to send to a custodial facility for continued treatment.
[2017-10-02] MEDS: Chlorhexidine Gluconate 2% 1 Pack (2 Cloths) TOPICAL SCH (06:17)
[2017-10-02 07:16] LABS: Hematocrit 28.4 % (35.0-46.0); Hemoglobin 9.6 gm/dL (11.6-15.3); Mean Corpuscular HGB Conc 33.6 % (32.0-36.0); Mean Corpuscular Hemoglobin 26.6 pg (27.0-34.0); Mean Platelet Volume 8.9 fL (7.0-11.0); Platelet Count 106 th/mm3 (150-450); Red Blood Count 3.59 mil/mm3 (4.00-5.30); Red Cell Distribution Width 20.7 % (11.6-17.2); White Blood Count 30.1 th/mm3 (4.0-11.0)
[2017-10-02 07:54] LABS: Albumin 1.4 g/dL (3.4-5.0); Anion Gap 10 meq/L (5-15); Aspartate Aminotransferase 17 U/L (15-37); Blood Urea Nitrogen 7 mg/dL (7-18); Calcium 7.8 mg/dL (8.5-10.1); Carbon Dioxide 23.3 meq/L (21.0-32.0); Chloride 110 meq/L (98-107); Glomerular Filtration Rate Greater Than 89 mL/min (>89); Glucose,Random 54 mg/dL (74-106); Potassium 3.1 meq/L (3.5-5.1); Sodium 143 meq/L (136-145)
[2017-10-02 07:58] LABS: Alanine Aminotransferase 24 U/L (10-53); Alkaline Phosphatase 158 U/L (45-117); Total Protein 5.2 g/dL (6.4-8.2)
[2017-10-02 08:16] LABS: Eosinophils 1 % (0-4); Lymphocytes 14 % (9-44); Metamyelocytes 5 % (0-1); Monocytes 5 % (0-8); Myelocytes 7 % (0-0); Platelet Morphology Normal (Normal); Tallied Nucleated RBC 1 (0-0)
[2017-10-02 08:17] LABS: Toxic Vacuolation Present
[2017-10-02] MEDS: Pantoprazole Sodium 20 MG DR Tablet PO SCH (08:30)
[2017-10-02] MEDS: traZODone 100 MG Tablet PO SCH (08:30)
[2017-10-02] MEDS: levoFLOXacin 750 MG Tablet PO SCH (08:30)
[2017-10-02] MEDS: Duloxetine 60 MG DR Capsule PO SCH (08:30)
[2017-10-02] MEDS: dilTIAZem 60 MG Tablet PO SCH ×3 (08:30→17:05)
--- NOTE | 2017-10-02 08:30 | P.PNONC ---
Subjective Interval history: Ms. Mcclain was seen and examined, vital signs, labs and medications, microbiology and [employer] consultant notes reviewed. Modifications to antibiotic regimen was also noted as per recommendations of infectious diseases. Subjectively; the patient reports continued pain with swallowing, she tells me she has difficulty swallowing solids or semisolids. She has been trying to drink nutritional supplements such as boost/Ensure but these caused diarrhea. She tells me chewing ice chips is the most soothing to her throat. Over the past 2 days she reports decreased pain in her left knee, she tells me she is able to flex her knee and bend it more. She remains afebrile. Objective Vital Signs/Intake & Output: Vital Signs 10/01/17 09:00 10/01/17 12:00 10/01/17 16:00 Temperature 98.2 F 98.1 F Pulse Rate 103 H 100 H 104 H Respiratory Rate 18 18 Blood Pressure 132/64 125/63 Pulse Oximetry 100 100 10/01/17 17:57 10/01/17 20:00 10/02/17 00:00 Temperature 98.5 F 99.1 F Pulse Rate 88 74 Respiratory Rate 18 18 Blood Pressure 144/71 H 158/76 H Pulse Oximetry 100 96 96 10/02/17 04:00 Temperature 98.1 F Pulse Rate 89 Respiratory Rate 18 Blood Pressure 150/77 H Pulse Oximetry 99 Intake & Output 10/01/17 10/02/17 10/02/17 18:59 06:59 18:59 Intake Total 1100 / 1100 100 / 100 Output Total 850 / 850 Balance 1100 / 1100 -750 / -750 Weight 66.6 kg Intake: IV 1100 / 1100 100 / 100 NS Inj 1,000 ML @ 100 mls/hr IV 1000 / 1000 .CONT .Q10H [facility] Rx#:[id number] Maxipime Inj 2,000 MG In NS Inj 100 / 100 100 / 100 100 ML @ 200 mls/hr IV.SIG Q8H [facility] Rx#:[id number] Output: Urine Amount (Catheter) 850 / 850 Indwelling Urethral Catheter 850 / 850 Other: Date of Last Bowel Movement 10/01/17 10/01/17 # Bowel Movements 1 Result Diagrams: 10/02/17 06:39 10/02/17 06:39 Laboratory Results: Laboratory Results - last 24 hr 07/12/18 07/12/18 07/13/18 11:27 15:20 22:59 WBC RBC Hgb Hct MCV MCH MCHC RDW Plt Count MPV Prelim Diff (Auto) Neut % (Auto) Lymph % (Auto) [place] % (Auto) Eos % (Auto) Baso % (Auto) Neut # (Auto) Lymph # (Auto) [place] # (Auto) Eos # (Auto) Baso # (Auto) WBC Differential Seg Neuts % (Manual) Band Neuts % (Manual) Lymphocytes % (Manual) Monocytes % (Manual) Eosinophils % (Manual) Metamyelocytes % (Man) Myelocytes % (Man) Promyelocytes % (Man) Abs Neuts (Manual) Nucleated RBCs/100 WBC Differential Comment Toxic Vacuolation Platelet Estimate Platelet Morphology Target Cells PT INR APTT Fibrinogen Sodium Potassium Chloride Carbon Dioxide Anion Gap BUN Creatinine Estimated GFR Random Glucose Calcium Magnesium Total Bilirubin AST ALT Alkaline Phosphatase Total Protein Albumin RBC Folate 643 Methotrexate 0.05 MTS Gel Crossmatch See Detail 10/01/17 10/01/17 10/01/17 08:08 08:08 08:08 WBC 18.2 H RBC 3.48 L Hgb 9.4 L Hct 27.8 L MCV 80.0 MCH 27.1 MCHC 33.9 RDW 20.6 H Plt Count 83 L D MPV 8.9 Prelim Diff (Auto) Slide review pending Neut % (Auto) 83.2 H Lymph % (Auto) 12.5 [place] % (Auto) 2.4 Eos % (Auto) 1.5 Baso % (Auto) 0.4 Neut # (Auto) 15.1 H Lymph # (Auto) 2.3 [place] # (Auto) 0.4 Eos # (Auto) 0.3 Baso # (Auto) 0.1 WBC Differential Manual diff final Seg Neuts % (Manual) 48 Band Neuts % (Manual) 23 H Lymphocytes % (Manual) 6 L Monocytes % (Manual) 2 Eosinophils % (Manual) 4 Metamyelocytes % (Man) 9 H Myelocytes % (Man) 7 H Promyelocytes % (Man) 1 H Abs Neuts (Manual) 16.0 H Nucleated RBCs/100 WBC Differential Comment . Toxic Vacuolation Platelet Estimate Low L Platelet Morphology Normal Target Cells 2+ H PT 10.9 INR 1.1 APTT 25.0 Fibrinogen 653 H Sodium 142 Potassium 3.1 L Chloride 109 H Carbon Dioxide 24.3 Anion Gap 9 BUN 7 Creatinine 0.53 Estimated GFR Greater than 89 Random Glucose 66 L Calcium 7.5 L Magnesium 1.4 L Total Bilirubin 0.7 AST 15 ALT 22 Alkaline Phosphatase 139 H Total Protein 5.2 L Albumin 1.3 L RBC Folate Methotrexate MTS Gel Crossmatch 10/02/17 10/02/17 06:39 06:39 WBC 30.1 H D RBC 3.59 L Hgb 9.6 L Hct 28.4 L MCV 79.0 L MCH 26.6 L MCHC 33.6 RDW 20.7 H Plt Count 106 L MPV 8.9 Prelim Diff (Auto) Manual diff required Neut % (Auto) Lymph % (Auto) [place] % (Auto) Eos % (Auto) Baso % (Auto) Neut # (Auto) Lymph # (Auto) [place] # (Auto) Eos # (Auto) Baso # (Auto) WBC Differential Manual diff final Seg Neuts % (Manual) 59 Band Neuts % (Manual) 9 H Lymphocytes % (Manual) 14 Monocytes % (Manual) 5 Eosinophils % (Manual) 1 Metamyelocytes % (Man) 5 H Myelocytes % (Man) 7 H Promyelocytes % (Man) Abs Neuts (Manual) 24.1 H Nucleated RBCs/100 WBC 1 H Differential Comment . Toxic Vacuolation Present H Platelet Estimate Low L Platelet Morphology Normal Target Cells PT INR APTT Fibrinogen Sodium 143 Potassium 3.1 L Chloride 110 H Carbon Dioxide 23.3 Anion Gap 10 BUN 7 Creatinine 0.57 Estimated GFR Greater than 89 Random Glucose 54 L Calcium 7.8 L Magnesium Total Bilirubin 0.7 AST 17 ALT 24 Alkaline Phosphatase 158 H Total Protein 5.2 L Albumin 1.4 L RBC Folate Methotrexate MTS Gel Crossmatch Culture Results: Microbiology 09/30/17 11:30 Stool Occult Blood ([facility]) - Final Stool Hemoccult negative 09/27/17 08:25 Aerobic Blood Culture - Preliminary Blood - Peripheral No growth in 4 days Anaerobic Blood Culture - Preliminary No growth in 4 days 09/27/17 08:10 Aerobic Blood Culture - Preliminary Blood - Peripheral No growth in 4 days Anaerobic Blood Culture - Preliminary No growth in 4 days 09/27/17 12:50 Gram Stain - Final Wound - Hip Wound Culture - Final Pseudomonas aeruginosa Group B beta Strep 09/27/17 08:20 Urine Culture - Final Catheterized Urine No growth in 48 hours Medications: Active Medications Generic Name Dose Route Start Last Admin Trade Name Freq PRN Reason Stop Dose Admin Acetaminophen 650 mg 09/27/17 23:39 10/01/17 12:57 Tylenol PO 650 mg Q4H PRN Administration Pain 1-10 Aripiprazole 30 mg 09/28/17 10:15 10/01/17 10:00 Abilify PO 30 mg DAILY [facility] Administration Buspirone HCl 15 mg 09/27/17 20:00 10/01/17 17:20 Buspar PO 15 mg TID [facility] Administration Chlorhexidine Gluconate 3 pack 09/28/17 04:00 10/02/17 06:17 Chlorhexidine 2% Cloth TOPICAL 10/03/17 03:59 Not Given DAILY@0400 [facility] Diltiazem HCl 60 mg 09/27/17 18:00 10/01/17 22:03 Cardizem PO 60 mg QID [facility] Administration Duloxetine HCl 60 mg 09/27/17 20:00 10/01/17 10:00 Cymbalta PO 60 mg DAILY [facility] Administration Filgrastim 480 mcg 09/30/17 14:00 10/01/17 13:00 Neupogen Inj SQ 480 mcg DAILY@1400 [facility] Administration Folic Acid 1 mg 09/28/17 11:00 10/01/17 10:01 Folvite Inj IM 1 mg DAILY [facility] Administration Sodium Chloride 1,000 mls @ 100 mls/hr 09/27/17 13:15 10/01/17 12:43 Ns Inj IV.CONT 100 mls/hr .Q10H [facility] Administration Cefepime HCl 2,000 mg/ Sodium 100 mls @ 200 mls/hr 09/29/17 15:00 10/02/17 06 :17 Chloride IV.SIG 200 mls/hr Q8H [facility] Administration Magnesium Chloride 64 mg 10/01/17 10:15 10/01/17 22:01 Mag64 PO 64 mg BID [facility] Administration Nystatin 1 applicatio 09/28/17 13:00 10/01/17 22:02 Mycostatin Cream TOPICAL 1 applicatio QID [facility] Administration Nystatin 5 ml 09/29/17 09:00 10/01/17 22:01 Mycostatin Liq SWISH-SWAL 5 ml QID [facility] Administration Ondansetron HCl 4 mg 09/27/17 13:04 10/01/17 12:58 Zofran Odt SL 4 mg Q6H PRN Administration NAUSEA OR VOMITING Pantoprazole Sodium 20 mg 09/28/17 09:00 10/01/17 10:00 Protonix PO 20 mg DAILY [facility] Administration Pravastatin Sodium 40 mg 09/27/17 18:45 10/01/17 10:00 Pravachol PO 40 mg DAILY [facility] Administration Senna/Docusate Sodium 1 tab 09/27/17 13:04 09/27/17 20:54 Kaykay-Colace PO 1 tab BID PRN Administration CONSTIPATION Sennosides 17.2 mg 09/27/17 13:04 09/27/17 20:55 Senokot PO 17.2 mg Q12H PRN Administration Moderate Constipation Trazodone HCl 100 mg 09/27/17 18:00 10/01/17 10:00 Desyrel PO 100 mg DAILY [facility] Administration Objective Remarks: GENERAL: Middle-aged female, laying in bed, awake, not acutely distressed. SKIN: Warm and dry, area of ulceration and desquamation noted in the midline inferior to the umbilicus as well as similar areas in the inguinal creases bilaterally.. HEAD: Normocephalic. EYES: No scleral icterus. No injection or drainage. Conjunctivae are pale. Oral exam: Some thrush noted but the amount of thrush is improved when compared to initial exam performed last week. No ulceration noted. NECK: Supple, trachea midline. No JVD or lymphadenopathy. LYMPHATIC: No adenopathy. CARDIOVASCULAR: Regular rate and rhythm without murmurs. RESPIRATORY: Poor inspiratory effort, on posterior examination there is good air movement over the upper and middle lung zones with decreased bibasilar breath sounds, no wheezes or rhonchi noted. No accessory muscle use. GASTROINTESTINAL: Abdomen soft, non-tender, nondistended. Skin ulceration inferior to the umbilicus with ulceration. EXTREMITIES: General decreased muscle mass no edema. MUSCULOSKELETAL: Generally decreased muscle mass noted. NEUROLOGICAL: No obvious motor deficits, she is generally weak, she is awake and alert. PSYCHIATRIC: Difficult to evaluate, patient does have history of schizophrenia. She does not seem to be actively hallucinating at this time Assessment/Plan (1) Cellulitis of knee, left Code(s): L03.116 - Cellulitis of left lower limb Status: Acute (2) Sepsis Code(s): A41.9 - Sepsis, unspecified organism Status: Resolved (3) Neutropenia Code(s): D70.9 - Neutropenia, unspecified Status: Acute (4) Anemia Code(s): D64.9 - Anemia, unspecified Status: Acute - Plan Ms. Mcclain is a 51-year-old female with multiple medical comorbid conditions including schizophrenia, reported history of rheumatoid arthritis, osteoarthritis. 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 Had redness swelling and purulent discharge from the incision of the left TKA for much of August into September 2017. Presents to the hospital with increased confusion and progressive weakness. Clinical examination at time of presentation revealed significant erythema and edema of the left leg, patient also found to have skin wound involving the lower abdominal skin. CT imaging of the chest revealed a cavitary lesion in the left lower lobe, CT imaging of the abdomen pelvis revealed findings consistent with colitis, CT imaging of the left knee revealed edema around the left knee with fluid tracking to the surface. Recommendations: 1. Pancytopenia: Likely related to myelosuppression secondary to methotrexate use. She is now on folic acid and did receive leucovorin earlier this hospitalization. Her counts are improving. She had a very exaggerated response to single dose of Neupogen. I suspect her neutrophil count may in fact continue to rise as we often do not see a peak in effect from Neupogen for 2 or 3 days. Her total white cell count was 30,000 earlier today, I suspect this is all related to Neupogen related stimulation of the granulocytes. 2. Thrombocytopenia: Improved. HIT antibody was ordered over the weekend. I suspect this will likely be negative but await formal results. Continue ongoing care. Continue folic acid supplementation. Continue broad-spectrum antibiotic coverage. Wound care. (2) Sepsis Qualifiers: Sepsis type: sepsis due to unspecified organism Qualified Code(s): A41.9 - Sepsis, unspecified organism (3) Neutropenia Qualifiers: Neutropenia type: unspecified Qualified Code(s): D70.9 - Neutropenia, unspecified (4) Anemia Qualifiers: Anemia type: unspecified type Qualified Code(s): D64.9 - Anemia, unspecified
[2017-10-02] MEDS: Nystatin Liq 500,000 UNIT/5 ML UDC SWISH-SWAL SCH ×5 (08:33→22:10)
[2017-10-02] MEDS: Folic Acid Inj 1 MG/0.2 ML VIAL IM SCH (09:44)
--- NOTE | 2017-10-02 11:29 | P.PNFP ---
Subjective Interval history: Patient seen and examined at bedside this morning. No acute events overnight. Patient reports she had one diarrhea episode this morning, small in quantity. Patient worked with physical therapy this morning as well she was sitting in a chair when we came into examined. Reports she felt lightheaded after aspirating from bed to chair but that has resolved. Overall she says she feels better and will like to go to rehab to work on strength. <Nikole Washington D - 10/02/17 12:48> Results - Labs Result diagrams: 10/02/17 06:39 10/02/17 06:39 <Maddy Jackson M - 10/02/17 13:33> Abnormal lab results 09/27/17 10/02/17 10/02/17 Range/Units 11:27 06:39 06:39 WBC 30.1 H D (4.0-11.0) th/mm3 RBC 3.59 L (4.00-5.30) mil/mm3 Hgb 9.6 L (11.6-15.3) gm/dL Hct 28.4 L (35.0-46.0) % MCV 79.0 L (80.0-100.0) fL MCH 26.6 L (27.0-34.0) pg RDW 20.7 H (11.6-17.2) % Plt Count 106 L (150-450) th/mm3 Band Neuts % (Manual) 9 H (0-6) % Metamyelocytes % (Man) 5 H (0-1) % Myelocytes % (Man) 7 H (0-0) % Abs Neuts (Manual) 24.1 H (1.8-7.7) th/mm3 Nucleated RBCs/100 WBC 1 H (0-0) /100 WBC Toxic Vacuolation Present H (None) Platelet Estimate Low L (Normal) Potassium 3.1 L (3.5-5.1) meq/L Chloride 110 H (98-107) meq/L Random Glucose 54 L (74-106) mg/dL Calcium 7.8 L (8.5-10.1) mg/dL Alkaline Phosphatase 158 H (45-117) U/L Total Protein 5.2 L (6.4-8.2) g/dL Albumin 1.4 L (3.4-5.0) g/dL MTS Gel Crossmatch See Detail Short CBC 10/02/17 Range/Units 06:39 WBC 30.1 H D (4.0-11.0) th/mm3 Hgb 9.6 L (11.6-15.3) gm/dL Hct 28.4 L (35.0-46.0) % Plt Count 106 L (150-450) th/mm3 BMP 10/02/17 06:39 Sodium 143 Potassium 3.1 L Chloride 110 H Carbon Dioxide 23.3 BUN 7 Creatinine 0.57 Calcium 7.8 L Liver Function 10/02/17 Range/Units 06:39 Total Bilirubin 0.7 (0.2-1.0) mg/dL AST 17 (15-37) U/L ALT 24 (10-53) U/L Alkaline Phosphatase 158 H (45-117) U/L Albumin 1.4 L (3.4-5.0) g/dL <NorthropMaddy Parris - 10/02/17 13:33> Abnormal lab results 09/27/17 10/02/17 10/02/17 Range/Units 11:27 06:39 06:39 WBC 30.1 H D (4.0-11.0) th/mm3 RBC 3.59 L (4.00-5.30) mil/mm3 Hgb 9.6 L (11.6-15.3) gm/dL Hct 28.4 L (35.0-46.0) % MCV 79.0 L (80.0-100.0) fL MCH 26.6 L (27.0-34.0) pg RDW 20.7 H (11.6-17.2) % Plt Count 106 L (150-450) th/mm3 Band Neuts % (Manual) 9 H (0-6) % Metamyelocytes % (Man) 5 H (0-1) % Myelocytes % (Man) 7 H (0-0) % Abs Neuts (Manual) 24.1 H (1.8-7.7) th/mm3 Nucleated RBCs/100 WBC 1 H (0-0) /100 WBC Toxic Vacuolation Present H (None) Platelet Estimate Low L (Normal) Potassium 3.1 L (3.5-5.1) meq/L Chloride 110 H (98-107) meq/L Random Glucose 54 L (74-106) mg/dL Calcium 7.8 L (8.5-10.1) mg/dL Alkaline Phosphatase 158 H (45-117) U/L Total Protein 5.2 L (6.4-8.2) g/dL Albumin 1.4 L (3.4-5.0) g/dL MTS Gel Crossmatch See Detail Short CBC 10/02/17 Range/Units 06:39 WBC 30.1 H D (4.0-11.0) th/mm3 Hgb 9.6 L (11.6-15.3) gm/dL Hct 28.4 L (35.0-46.0) % Plt Count 106 L (150-450) th/mm3 BMP 10/02/17 06:39 Sodium 143 Potassium 3.1 L Chloride 110 H Carbon Dioxide 23.3 BUN 7 Creatinine 0.57 Calcium 7.8 L Liver Function 10/02/17 Range/Units 06:39 Total Bilirubin 0.7 (0.2-1.0) mg/dL AST 17 (15-37) U/L ALT 24 (10-53) U/L Alkaline Phosphatase 158 H (45-117) U/L Albumin 1.4 L (3.4-5.0) g/dL <Nikole Washington D - 10/02/17 11:29> Physical Exam Vital signs: Vital Signs 10/01/17 16:00 10/01/17 17:57 10/01/17 20:00 Temperature 98.1 F 98.5 F Pulse Rate 104 H 88 Respiratory Rate 18 18 Blood Pressure 125/63 144/71 H Pulse Oximetry 100 100 96 10/02/17 00:00 10/02/17 04:00 10/02/17 08:00 Temperature 99.1 F 98.1 F 98.4 F Pulse Rate 74 89 110 H Respiratory Rate 18 18 20 Blood Pressure 158/76 H 150/77 H 145/69 H Pulse Oximetry 96 99 97 10/02/17 09:00 Temperature Pulse Rate 110 H Respiratory Rate Blood Pressure Pulse Oximetry Intake & Output 10/01/17 10/02/17 10/02/17 18:59 06:59 18:59 Intake Total 1100 / 1100 100 / 100 Output Total 850 / 850 Balance 1100 / 1100 -750 / -750 Weight 66.6 kg Intake: IV 1100 / 1100 100 / 100 NS Inj 1,000 ML @ 100 mls/hr IV 1000 / 1000 .CONT .Q10H [facility] Rx#:[id number] Maxipime Inj 2,000 MG In NS Inj 100 / 100 100 / 100 100 ML @ 200 mls/hr IV.SIG Q8H [facility] Rx#:[id number] Output: Urine Amount (Catheter) 850 / 850 Indwelling Urethral Catheter 850 / 850 Other: Date of Last Bowel Movement 10/01/17 10/01/17 # Bowel Movements 1 <Maddy Jackson M - 10/02/17 13:33> Vital Signs 10/01/17 12:00 10/01/17 16:00 10/01/17 17:57 Temperature 98.2 F 98.1 F Pulse Rate 100 H 104 H Respiratory Rate 18 18 Blood Pressure 132/64 125/63 Pulse Oximetry 100 100 100 10/01/17 20:00 10/02/17 00:00 10/02/17 04:00 Temperature 98.5 F 99.1 F 98.1 F Pulse Rate 88 74 89 Respiratory Rate 18 18 18 Blood Pressure 144/71 H 158/76 H 150/77 H Pulse Oximetry 96 96 99 10/02/17 08:00 10/02/17 09:00 Temperature 98.4 F Pulse Rate 110 H 110 H Respiratory Rate 20 Blood Pressure 145/69 H Pulse Oximetry 97 Intake & Output 10/01/17 10/02/17 10/02/17 18:59 06:59 18:59 Intake Total 1100 / 1100 100 / 100 Output Total 850 / 850 Balance 1100 / 1100 -750 / -750 Weight 66.6 kg Intake: IV 1100 / 1100 100 / 100 NS Inj 1,000 ML @ 100 mls/hr IV 1000 / 1000 .CONT .Q10H [facility] Rx#:[id number] Maxipime Inj 2,000 MG In NS Inj 100 / 100 100 / 100 100 ML @ 200 mls/hr IV.SIG Q8H [facility] Rx#:[id number] Output: Urine Amount (Catheter) 850 / 850 Indwelling Urethral Catheter 850 / 850 Other: Date of Last Bowel Movement 10/01/17 10/01/17 # Bowel Movements 1 <Calzado,Nikole D - 10/02/17 11:29> - Constitutional no acute distress <Calzado,Nikole D - 10/02/17 12:48> - Routine HEENT Exam Head: Present: normocephalic, atraumatic <Nikole Washington 10/02/17 12:48> Eye: Present: EOMI, PERRL <Nikole Washington 10/02/17 12:48> - Routine Neck Exam Present: supple, full ROM. Absent: JVD <Nikole Washington 10/02/17 12:48> - Routine Respiratory Exam Absent: accessory muscle use <Nikole Washington 10/02/17 12:48> Comments: mild atelectasis at the bases, more pronounced on left lower lung base. <Nikole Washington 10/02/17 12:48> - Routine Cardiovascular Exam Present: RRR, S1, S2, tachycardia. Absent: murmur, gallop, rubs <Nikole Washington 10/02/17 12:48> - Routine Abdominal Exam Present: soft, normoactive bowel sounds, tenderness (mild tenderness along abdominal folds, dressing in place, stable) <Nikole Washington 10/02/17 12:48> - Routine Extremities Exam Present: edema, pulses intact. Absent: cyanosis, clubbing, calf tenderness, joint swelling (Left knee swelling and erythema has resolved, pt able to move bend Left knee. ) <Nikole Washington 10/02/17 12:48> - Routine Skin Exam Present: rash (abdominal folds, stable) <Nikole Washington 10/02/17 12:48> - Routine Neurological Exam Present: alert (more conversational), oriented X3 <Nikole Washington 10/02/17 12:48> - Routine Psychiatric Exam Present: normal affect, good insight, good judgment. Absent: suicidal ideation , homicidal ideation, auditory hallucinations, tactile hallucinations <Nikole Washington 10/02/17 12:48> - Urinary Catheter Management Indwelling Urethral Catheter Cath placed during this visit: no <Maddy Jackson - 10/02/17 13:33> yes <FelixNikole Debbie 10/02/17 12:48> Reason for continuing: Severe pressure ulcer/wound <JimmieLucie duranly Debbie 11:29> Insertion date: 09/27/17 <Nikole Washington D - 10/02/17 11:29> Insertion time: 08:20 <JimmiedoNikole D - 10/02/17 11:29> Assessment and Plan - Assessment (1) Sepsis Code(s): A41.9 - Sepsis, unspecified organism Status: Resolved (2) Cellulitis of knee, left Code(s): L03.116 - Cellulitis of left lower limb Status: Acute (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 - Infection and inflammatory reaction due to unspecified internal joint prosthesis, initial encounter Status: Suspected (4) Neutropenia Code(s): D70.9 - Neutropenia, unspecified Status: Suspected (5) Anemia Code(s): D64.9 - Anemia, unspecified Status: Resolved (6) Pneumonia Code(s): J18.9 - Pneumonia, unspecified organism Status: Acute (7) Diarrhea Code(s): R19.7 - Diarrhea, unspecified Status: Acute (8) Schizophrenia Code(s): F20.9 - Schizophrenia, unspecified Status: Chronic (9) Hypertension Code(s): I10 - Essential (primary) hypertension Status: Acute (10) Fungal infection of skin of abdomen Code(s): B36.9 - Superficial mycosis, unspecified Status: Acute (11) Nutrition, metabolism, and development symptoms Code(s): R63.8 - Other symptoms and signs concerning food and fluid intake Status: Acute <Maddy Jackson Parris - 10/02/17 13:33> (1) Sepsis Code(s): A41.9 - Sepsis, unspecified organism Status: Resolved Plan: On admission patient found to be in severe sepsis with tachycardia (110), new onset neutropenia (WBC 0.9), Lactic acid of 3.1, and AMS. Probable source is thought to be pulmonary and/or cellulitis or prosthetic joint infection of left leg or knee, respectively. In the ED patient received 2 L of normal saline, vancomycin 1 g x1 and Zosyn 4.5 g x1. Chest CTA showed no evidence of atelectasis or consolidation of left lower lobe. Wound culture taken from Left knee grew pseudomonas and group B strep. Urine and blood cultures show no NGTD. Patient also has skin infection on abdomen and groin that appears to be fundal. ID and wound care following. Left Leg erythema and swelling has resolved. (2) Cellulitis of knee, left Code(s): L03.116 - Cellulitis of left lower limb Status: Acute Plan: See plan above for sepsis. Her states that there was drainage from the knee and infection for weeks before she presented to the hospital. She has taken approximately 2 weeks of p.o. Keflex 500 mg. Left Leg erythema and swelling has resolved. - Continue with ID recommendations - Follow wound care instructions - vanco,and fluconazole discontinued - c/w cefepime 2 g IV Q8h for 4 wks for pseudomonas coverage of left knee infection - pt started on po levaquin to complete 4 wk course (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 - Infection and inflammatory reaction due to unspecified internal joint prosthesis, initial encounter Status: Suspected Plan: Patient with history of total left knee replacement in July 26, 2017. She completed rehabilitation and was discharged home August 23. Patient recently treated with antibiotics for left leg infection. Patient was on approximately 2 weeks of po Keflex 500 mg. No drainage from wound was appreciated, erythema resolved, +2 edema and mild tenderness present on Left LE. Per Ortho, examination of left knee shows no evidence of infection. - See plan above for left leg cellulitis (4) Neutropenia Code(s): D70.9 - Neutropenia, unspecified Status: Suspected Plan: Patient presented with new onset neutropenia with WBC of (0.9). Prior blood work reviewed and white blood cells were within normal limits. Neutropenia possibly due to sepsis, psychotic and/or RA medications or bone marrow malignancy. Patient also become thrombocytopenic with a platelet count of 59, slight improvement in PTL to 62, likely caused by a combination of sepsis and current medication regimen. Heme/Onc following. Per Heme/Onc rheumatologic medicines including methotrexate and the unknown biologic that she was taking have been held. - Continue to monitor WBC - f/u HIT results - Pt off heparin SQ Received 2 doses of Neupogen with great response. Patient received Neupogen, white blood cell count now 30 compared to 2.4 on September 29, 2017. Patient no longer requiring neutropenic precautions. (5) Anemia Code(s): D64.9 - Anemia, unspecified Status: Resolved Plan: On admission patient found to have new onset anemia with H&H 5.5/16.3. On review of chart patient had baseline H&H of 8.2/24 on July/2017. Patient denies any blood in her stool. In the ED patient was found to be guaiac negative. Patient post 3 units of prbc. H/H today stable thus far. Rheumatologic medications are the possible culprit vs psychiatric medications. Ferritin at 1, 768 on 09/27/17. Stool Hemoccult pending. H\H today 9.6\28.4. -follow-up with stool Hemoccult - Continue to trend CBC - Continue folic acid - Transfuse as necessary. (6) Pneumonia Code(s): J18.9 - Pneumonia, unspecified organism Status: Acute Plan: Patient found to have left lower lobe consolidation on chest CTA. On examination today mild atelectasis appreciated at lower bases bilaterally, more pronounced on left lower base. - incentive spirometry ordered -Patient with O2 sat 97 on room air See plan above for sepsis (7) Diarrhea Code(s): R19.7 - Diarrhea, unspecified Status: Acute Plan: On admission patient presented with 3-day history of diarrhea in the setting of recent antibiotics. All bowel regimens held. Patient C. difficile negative. -Diarrhea has improved and decreasing frequency. Patient reports only one episode of small amount of diarrhea this morning. Continue with probiotics. (8) Schizophrenia Code(s): F20.9 - Schizophrenia, unspecified Status: Chronic Plan: Patient with chronic history of schizophrenia. On admission patient presented with active hallucinations of seeing someone out to get her. On exam today patient was calm and cooperative. Denies suicidal ideation. AAOx3. Denied auditory or tactile hallucinations. Per Psychiatry continue with Abilify 30 mg for psychosis, okay to continue buspirone 30 mg, trazodone 100 mg and Cymbalta 60 mg, but hold anticholinergics to avoid more cognitive impairment. - Patient's mood is stable today - Follow Psych recommendations (9) Hypertension Code(s): I10 - Essential (primary) hypertension Status: Acute Plan: Patient with history of HTN on home diltiazem. Blood pressures have been stable at 140s-120s systolic. - cardizem dose decreased to 60mg TID due to patient c/o of lightheadedness upon standing and working with physical therapy -continue to monitor (10) Fungal infection of skin of abdomen Code(s): B36.9 - Superficial mycosis, unspecified Status: Acute Plan: Presented on admission with what appears to be rash under the abdominal folds and groin area. Skin lesions is mildly tender but stable. No bleeding noted on exam, dressing in place c/d/i. Per ID recommendations continue with nystatin ointment General surgery recommend patients for skin barrier and dressing change, no operative intervention indicated at this time (11) Nutrition, metabolism, and development symptoms Code(s): R63.8 - Other symptoms and signs concerning food and fluid intake Status: Acute Plan: Fluids: 100mls/hr Electrolytes: Replete as needed Nutrition: cardiac diet, continue to monitor po intake, supplement with ensure DVT prophylaxis: SCDs <Nikole Washington D - 10/02/17 12:10> - Assessment and Plan The exam, history, and the medical decision-making described in the above note were completed with the assistance of the resident physician. I reviewed and agree with the findings presented. I attest that I had a [id number] encounter with the patient on the same day, and personally performed and documented my assessment and findings in the medical record. She has gotten in for the first time today and was sitting in a chair. She is very deconditioned. Her blood pressures are a little bit low. Consideration will be given to adjusting her medications and a rehab facility will be investigated for her. <NorthropMaddy diana M - 10/02/17 13:33> The exam, history, and the medical decision-making described in the above note were completed with the assistance of the resident physician. I reviewed and agree with the findings presented. I attest that I had a [id number] encounter with the patient on the same day, and personally performed and documented my assessment and findings in the medical record. She is pancytopenic today. However her white count is increasing daily. She does need her psychiatric medications. These medications can suppress her bone marrow but I believe the methotrexate is causing her problems now. With low platelets the recommendation is normally to hold the Lovenox. She does have pain in her left leg. that is the area where she had the drainage. There is been a concern about a DVT in that leg her previous ultrasound was normal. Her leg was edematous from the cellulitis. A new ultrasound will be ordered. <Nikole Washington D - 10/02/17 11:29> <Nikole Washington D - Last Filed: 10/02/17 12:10> (1) Sepsis Qualifiers: Sepsis type: sepsis due to unspecified organism Qualified Code(s): A41.9 - Sepsis, unspecified organism (4) Neutropenia Qualifiers: Neutropenia type: unspecified Qualified Code(s): D70.9 - Neutropenia, unspecified (5) Anemia Qualifiers: Anemia type: unspecified type Qualified Code(s): D64.9 - Anemia, unspecified (6) Pneumonia Qualifiers: Pneumonia type: due to unspecified organism Laterality: left Lung location: lower lobe of lung Qualified Code(s): J18.1 - Lobar pneumonia, unspecified organism (9) Hypertension Qualifiers: Hypertension type: essential hypertension Qualified Code(s): I10 - Essential (primary) hypertension <Maddy Jackson - Last Filed: 10/02/17 13:33> (1) Sepsis Qualifiers: Sepsis type: sepsis due to unspecified organism Qualified Code(s): A41.9 - Sepsis, unspecified organism (4) Neutropenia Qualifiers: Neutropenia type: unspecified Qualified Code(s): D70.9 - Neutropenia, unspecified (5) Anemia Qualifiers: Anemia type: unspecified type Qualified Code(s): D64.9 - Anemia, unspecified (6) Pneumonia Qualifiers: Pneumonia type: due to unspecified organism Laterality: left Lung location: lower lobe of lung Qualified Code(s): J18.1 - Lobar pneumonia, unspecified organism (9) Hypertension Qualifiers: Hypertension type: essential hypertension Qualified Code(s): I10 - Essential (primary) hypertension <Nikole Washington D - Last Filed: 10/02/17 12:10> (1) Sepsis Qualifiers: Sepsis type: sepsis due to unspecified organism Qualified Code(s): A41.9 - Sepsis, unspecified organism (4) Neutropenia Qualifiers: Neutropenia type: unspecified Qualified Code(s): D70.9 - Neutropenia, unspecified (5) Anemia Qualifiers: Anemia type: unspecified type Qualified Code(s): D64.9 - Anemia, unspecified (6) Pneumonia Qualifiers: Pneumonia type: due to unspecified organism Laterality: left Lung location: lower lobe of lung Qualified Code(s): J18.1 - Lobar pneumonia, unspecified organism (9) Hypertension Qualifiers: Hypertension type: essential hypertension Qualified Code(s): I10 - Essential (primary) hypertension <Maddy Jackson M - Last Filed: 10/02/17 13:33> (1) Sepsis Qualifiers: Sepsis type: sepsis due to unspecified organism Qualified Code(s): A41.9 - Sepsis, unspecified organism (4) Neutropenia Qualifiers: Neutropenia type: unspecified Qualified Code(s): D70.9 - Neutropenia, unspecified (5) Anemia Qualifiers: Anemia type: unspecified type Qualified Code(s): D64.9 - Anemia, unspecified (6) Pneumonia Qualifiers: Pneumonia type: due to unspecified organism Laterality: left Lung location: lower lobe of lung Qualified Code(s): J18.1 - Lobar pneumonia, unspecified organism (9) Hypertension Qualifiers: Hypertension type: essential hypertension Qualified Code(s): I10 - Essential (primary) hypertension
[2017-10-02] MEDS: Acetaminophen 325 MG Tablet PO PRN (14:17)
[2017-10-02] MEDS: Sod Chloride 0.9% Inj 1,000 ML IV.CONT SCH (22:13)
[2017-10-03] MEDS ORDERED: Pharmacy Ordered Lab Info OTHER ONE (01:45)
--- NOTE | 2017-10-03 07:38 | P.PNOP ---
Subjective Interval history: pt is feeling much better denies any knee pain soreness from wounds involving abdomen Physical Exam Vital signs: Vital Signs 10/02/17 08:00 10/02/17 09:00 10/02/17 12:00 Temperature 98.4 F 97.8 F Pulse Rate 110 H 110 H 117 H Respiratory Rate 20 20 Blood Pressure 145/69 H 119/60 Pulse Oximetry 97 97 10/02/17 16:00 10/02/17 16:17 10/02/17 20:00 Temperature 98.8 F 98.3 F Pulse Rate 114 H 110 H 97 H Respiratory Rate 20 18 Blood Pressure 131/67 109/57 L Pulse Oximetry 93 L 95 10/03/17 00:00 10/03/17 04:00 Temperature 98.8 F 98.5 F Pulse Rate 90 89 Respiratory Rate 18 18 Blood Pressure 115/60 119/66 Pulse Oximetry 95 99 Intake & Output 10/02/17 10/03/17 10/03/17 18:59 06:59 18:59 Intake Total 100 / 100 100 / 100 Output Total 300 / 300 350 / 350 Balance -200 / -200 -250 / -250 Weight 66.6 kg Intake: IV 100 / 100 100 / 100 Maxipime Inj 2,000 MG In NS Inj 100 / 100 100 / 100 100 ML @ 200 mls/hr IV.SIG Q8H [facility] Rx#:[id number] Output: Urine 300 / 300 350 / 350 Other: # Bowel Movements 1 - Constitutional no acute distress, morbidly obese - Additional findings Additional findings: left knee, well healed incision, no erythema, no drainage continued wounds involving lower abdomen - Urinary Catheter Management Indwelling Urethral Catheter Cath placed during this visit: yes Reason for continuing: Severe pressure ulcer/wound Insertion date: 09/27/17 Insertion time: 08:20 Results - Labs CBC & Chem 7: 10/02/17 06:39 10/02/17 06:39 Laboratory Results - last 24 hr 10/01/17 10/02/17 10/02/17 08:08 06:39 06:39 WBC Differential Manual diff final Seg Neuts % (Manual) 59 Band Neuts % (Manual) 9 H Lymphocytes % (Manual) 14 Monocytes % (Manual) 5 Eosinophils % (Manual) 1 Metamyelocytes % (Man) 5 H Myelocytes % (Man) 7 H Abs Neuts (Manual) 24.1 H Nucleated RBCs/100 WBC 1 H Toxic Vacuolation Present H Platelet Estimate Low L Platelet Morphology Normal Sodium 143 Potassium 3.1 L Chloride 110 H Carbon Dioxide 23.3 Anion Gap 10 BUN 7 Creatinine 0.57 Estimated GFR Greater than 89 Random Glucose 54 L Calcium 7.8 L Total Bilirubin 0.7 AST 17 ALT 24 Alkaline Phosphatase 158 H Total Protein 5.2 L Albumin 1.4 L Hep-Induced Plt Ab Radhika Negative HIPA Patient OD 0.045 Microbiology 09/27/17 08:25 Blood - Peripheral Aerobic Blood Culture - Final No growth in 5 days 09/27/17 08:25 Blood - Peripheral Anaerobic Blood Culture - Final No growth in 5 days 09/27/17 08:10 Blood - Peripheral Aerobic Blood Culture - Final No growth in 5 days 09/27/17 08:10 Blood - Peripheral Anaerobic Blood Culture - Final No growth in 5 days Assessment and Plan - Assessment and Plan s/p L TKA 07/26/[address] Dasha Frausto neutropenia cellulitis lower abdominal wall IV abx per ID left knee examination shows no evidence of infection PT- out of bed for ambulation anticipate d/c to SNF when stable continue med management
[2017-10-03 09:01] LABS: Baso # (Auto) 0.1 th/mm3 (0.0-0.2); Baso % (Auto) 0.3 % (0.0-2.0); Eos # (Auto) 0.2 th/mm3 (0.0-0.4); Eos % (Auto) 0.6 % (0.0-4.0); Hematocrit 26.5 % (35.0-46.0); Hemoglobin 8.8 gm/dL (11.6-15.3); Lymph # (Auto) 2.5 th/mm3 (1.0-4.8); Lymph % (Auto) 7.3 % (9.0-44.0); Mean Corpuscular HGB Conc 33.4 % (32.0-36.0); Mean Corpuscular Hemoglobin 26.9 pg (27.0-34.0); Mean Corpuscular Volume 80.6 fL (80.0-100.0); Mean Platelet Volume 9.4 fL (7.0-11.0); Mono # (Auto) 1.1 th/mm3 (0.0-0.9); Mono % (Auto) 3.1 % (0.0-8.0); Neut # (Auto) 30.2 th/mm3 (1.8-7.7); Neut % (Auto) 88.7 % (16.0-70.0); Platelet Count 135 th/mm3 (150-450); Red Blood Count 3.29 mil/mm3 (4.00-5.30); Red Cell Distribution Width 21.2 % (11.6-17.2)
[2017-10-03] MEDS: dilTIAZem 60 MG Tablet PO SCH ×3 (09:23→17:05)
[2017-10-03] MEDS: levoFLOXacin 750 MG Tablet PO SCH (09:24)
[2017-10-03 09:25] LABS: Anion Gap 10 meq/L (5-15); Blood Urea Nitrogen 7 mg/dL (7-18); Calcium 8.2 mg/dL (8.5-10.1); Carbon Dioxide 22.1 meq/L (21.0-32.0); Chloride 110 meq/L (98-107); Glomerular Filtration Rate Greater Than 89 mL/min (>89); Glucose,Random 52 mg/dL (74-106); Potassium 3.6 meq/L (3.5-5.1); Sodium 142 meq/L (136-145)
[2017-10-03] MEDS: traZODone 100 MG Tablet PO SCH (09:25)
[2017-10-03] MEDS: Duloxetine 60 MG DR Capsule PO SCH (09:25)
[2017-10-03] MEDS: Pantoprazole Sodium 20 MG DR Tablet PO SCH (09:26)
[2017-10-03] MEDS: Folic Acid Inj 1 MG/0.2 ML VIAL IM SCH (10:17)
[2017-10-03] MEDS: Nystatin Liq 500,000 UNIT/5 ML UDC SWISH-SWAL SCH ×2 (10:18→12:34)
[2017-10-03 10:27] LABS: Lymphocytes 7 % (9-44); Metamyelocytes 3 % (0-1); Monocytes 2 % (0-8); Ovalocytes 1+; Platelet Morphology Normal (Normal); Target Cells 2+; Toxic Granulation 2+; Toxic Vacuolation Present
--- NOTE | 2017-10-03 15:51 | P.PNFP ---
Subjective Interval history: Delayed entry Patient seen and examined at bedside this morning. She reports 2 episodes of diarrhea this morning. She is alert and oriented 2 (self and location). Denies chest pain, shortness of breath, palpitations, dizziness, fever or chills. Patient stated she still has no appetite but has been able to tolerate supplementation with Ensure. <Nikole Washington - 10/03/17 19:37> Results - Labs Result diagrams: 10/05/17 06:40 10/05/17 06:40 <Maddy Jackson - 10/06/17 14:10> Abnormal lab results 10/03/17 10/03/17 Range/Units 07:00 07:10 WBC 34.0 H (4.0-11.0) th/mm3 RBC 3.29 L (4.00-5.30) mil/mm3 Hgb 8.8 L (11.6-15.3) gm/dL Hct 26.5 L (35.0-46.0) % MCH 26.9 L (27.0-34.0) pg RDW 21.2 H (11.6-17.2) % Plt Count 135 L (150-450) th/mm3 Neut % (Auto) 88.7 H (16.0-70.0) % Lymph % (Auto) 7.3 L (9.0-44.0) % Neut # (Auto) 30.2 H (1.8-7.7) th/mm3 [place] # (Auto) 1.1 H (0.0-0.9) th/mm3 Band Neuts % (Manual) 20 H (0-6) % Lymphocytes % (Manual) 7 L (9-44) % Metamyelocytes % (Man) 3 H (0-1) % Abs Neuts (Manual) 30.9 H (1.8-7.7) th/mm3 Toxic Granulation 2+ H (None) Toxic Vacuolation Present H (None) Platelet Estimate Low L (Normal) Target Cells 2+ H (None) Ovalocytes 1+ H (None) Chloride 110 H (98-107) meq/L Random Glucose 52 L (74-106) mg/dL Calcium 8.2 L (8.5-10.1) mg/dL Short CBC 10/03/17 Range/Units 07:10 WBC 34.0 H (4.0-11.0) th/mm3 Hgb 8.8 L (11.6-15.3) gm/dL Hct 26.5 L (35.0-46.0) % Plt Count 135 L (150-450) th/mm3 BMP 10/03/17 07:00 Sodium 142 Potassium 3.6 Chloride 110 H Carbon Dioxide 22.1 BUN 7 Creatinine 0.55 Calcium 8.2 L <Nikole Washington D - 10/03/17 15:51> Physical Exam Vital signs: Vital Signs 10/05/17 16:00 10/05/17 19:20 10/05/17 22:37 Temperature 98.9 F 98 F Pulse Rate 120 H 125 H 118 H Respiratory Rate 12 18 Blood Pressure 134/66 109/60 Pulse Oximetry 96 95 10/06/17 00:00 10/06/17 04:00 10/06/17 05:13 Temperature 97.6 F 98.1 F Pulse Rate 128 H 129 H Respiratory Rate 18 18 16 Blood Pressure 126/66 123/68 Pulse Oximetry 67 L 98 10/06/17 05:58 10/06/17 07:00 10/06/17 08:00 Temperature 98.2 F Pulse Rate 123 H 123 H Respiratory Rate 18 14 Blood Pressure 131/75 Pulse Oximetry 98 10/06/17 12:00 Temperature 98.5 F Pulse Rate 128 H Respiratory Rate 18 Blood Pressure 117/63 Pulse Oximetry 96 Intake & Output 10/05/17 10/06/17 10/06/17 18:59 06:59 18:59 Intake Total 200 / 200 1100 / 1100 100 / 100 Balance 200 / 200 1100 / 1100 100 / 100 Weight 106.3 kg Intake: IV 200 / 200 1100 / 1100 100 / 100 NS Inj 1,000 ML @ 100 mls/hr IV 1000 / 1000 .CONT .Q10H [facility] Rx#:[id number] Maxipime Inj 2,000 MG In NS Inj 200 / 200 100 / 100 100 / 100 100 ML @ 200 mls/hr IV.SIG Q8H [facility] Rx#:[id number] Other: # Voids 4 Date of Last Bowel Movement 10/05/17 10/05/17 10/06/17 # Bowel Movements 1 <Maddy Jackson - 10/06/17 14:10> Vital Signs 10/02/17 16:00 10/02/17 16:17 10/02/17 20:00 Temperature 98.8 F 98.3 F Pulse Rate 114 H 110 H 97 H Respiratory Rate 20 18 Blood Pressure 131/67 109/57 L Pulse Oximetry 93 L 95 10/03/17 00:00 10/03/17 04:00 10/03/17 08:00 Temperature 98.8 F 98.5 F 98.5 F Pulse Rate 90 89 120 H Respiratory Rate 18 18 16 Blood Pressure 115/60 119/66 139/64 Pulse Oximetry 95 99 100 10/03/17 12:00 Temperature 97.8 F Pulse Rate 116 H Respiratory Rate 17 Blood Pressure 143/82 H Pulse Oximetry 97 Intake & Output 10/02/17 10/03/17 10/03/17 18:59 06:59 18:59 Intake Total 100 / 100 100 / 100 100 / 100 Output Total 300 / 300 350 / 350 Balance -200 / -200 -250 / -250 100 / 100 Weight 66.6 kg Intake: IV 100 / 100 100 / 100 100 / 100 Maxipime Inj 2,000 MG In NS Inj 100 / 100 100 / 100 100 / 100 100 ML @ 200 mls/hr IV.SIG Q8H [facility] Rx#:[id number] Output: Urine 300 / 300 350 / 350 Other: # Bowel Movements 1 <Calluis antoniodoLucieNikole D - 10/03/17 15:51> - Constitutional no acute distress <CalzadoNikole D - 10/03/17 19:37> - Routine HEENT Exam Eye: Present: EOMI, PERRL <Calluis antoniodoLucieNikole D 10/03/17 19:37> ENT: Present: mucous membranes moist <CalzadoNikole D 10/03/17 19:37> - Routine Neck Exam Present: supple, full ROM. Absent: JVD <CalzadoNikole D - 10/03/17 19:37> - Routine Respiratory Exam Present: CTA bilaterally. Absent: accessory muscle use <Calzado,Nikole D 19:37> - Routine Cardiovascular Exam Present: RRR, S1, S2. Absent: murmur, gallop, rubs <CalzadoLucieNikole D 19:37> - Routine Abdominal Exam Present: soft, normoactive bowel sounds, tenderness <Nikole Washington 19:37> Comments: mild tenderness to palpation near abdominal wound, dressing in place, dry, no blood, stable <Nikole Washington D 10/03/17 19:37> - Routine Extremities Exam Present: full ROM, pulses intact, normal capillary refill. Absent: cyanosis, clubbing, edema <Nikole Washington D 10/03/17 19:37> - Routine Skin Exam Present: wounds (wound under pannus, stable) <Nikole Washington D - 10/03/17 19:37 > - Routine Neurological Exam Present: alert (AAOX2 (self and place)) <Nikole Washington D 10/03/17 19:37> - Routine Psychiatric Exam Present: normal affect, cooperative, good insight, good judgment. Absent: suicidal ideation, homicidal ideation, auditory hallucinations, visual hallucinations, tactile hallucinations <Nikole Washington D 10/03/17 19:37> - Urinary Catheter Management Indwelling Urethral Catheter Cath placed during this visit: no <Maddy Jackson - 10/06/17 14:10> yes <Nikole Washington - 10/03/17 19:37> Reason for continuing: Severe pressure ulcer/wound <Nikole Washington D 15:51> Insertion date: 09/27/17 <Nikole Washington D - 10/03/17 15:51> Insertion time: 08:20 <Nikole Washington D 10/03/17 15:51> Assessment and Plan - Assessment (1) Cellulitis of knee, left Code(s): L03.116 - Cellulitis of left lower limb Status: Acute (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 - Infection and inflammatory reaction due to unspecified internal joint prosthesis, initial encounter Status: Suspected (3) Pneumonia Code(s): J18.9 - Pneumonia, unspecified organism Status: Resolved (4) Diarrhea Code(s): R19.7 - Diarrhea, unspecified Status: Acute (5) Schizophrenia Code(s): F20.9 - Schizophrenia, unspecified Status: Chronic (6) Hypertension Code(s): I10 - Essential (primary) hypertension Status: Acute (7) Fungal infection of skin of abdomen Code(s): B36.9 - Superficial mycosis, unspecified Status: Acute (8) Nutrition, metabolism, and development symptoms Code(s): R63.8 - Other symptoms and signs concerning food and fluid intake Status: Acute <Maddy Jackson - 10/06/17 14:10> (1) Cellulitis of knee, left Code(s): L03.116 - Cellulitis of left lower limb Status: Acute Plan: See plan above for sepsis. Her states that there was drainage from the knee and infection for weeks before she presented to the hospital. She has taken approximately 2 weeks of p.o. Keflex 500 mg. Left Leg erythema and swelling has resolved. mild pain with palpation on back of Left knee. - Continue with ID recommendations - vanco,and fluconazole discontinued - c/w cefepime 2 g IV Q8h for 4 wks for pseudomonas coverage of left knee infection - pt started on po levaquin to complete 4 wk course (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 - Infection and inflammatory reaction due to unspecified internal joint prosthesis, initial encounter Status: Suspected Plan: Patient with history of total left knee replacement in July 26, 2017. She completed rehabilitation and was discharged home August 23. Patient recently treated with antibiotics for left leg infection. Patient was on approximately 2 weeks of po Keflex 500 mg. No drainage from wound was appreciated, erythema resolved, +2 edema and mild tenderness present on Left LE. Per Ortho, examination of left knee shows no evidence of infection. - See plan above for left leg cellulitis (3) Neutropenia Code(s): D70.9 - Neutropenia, unspecified Status: Resolved Plan: Patient presented with new onset neutropenia with WBC of (0.9). Prior blood work reviewed and white blood cells were within normal limits. Neutropenia possibly due to sepsis, psychotic and/or RA medications or bone marrow malignancy. Patient also become thrombocytopenic with a platelet count of 59, slight improvement in PTL to 62, likely caused by a combination of sepsis and current medication regimen. Heme/Onc following. Per Heme/Onc rheumatologic medicines including methotrexate and the unknown biologic that she was taking have been held. - Continue to monitor WBC - f/u HIT results - Pt off heparin SQ Received 2 doses of Neupogen with great response. Patient received Neupogen, white blood cell count now 34 compared to 2.4 on September 29, 2017. Patient no longer requiring neutropenic precautions. (4) Pneumonia Code(s): J18.9 - Pneumonia, unspecified organism Status: Acute Plan: Patient found to have left lower lobe consolidation on chest CTA. On examination today mild atelectasis appreciated at lower bases bilaterally, more pronounced on left lower base. - incentive spirometry ordered -Patient with O2 sat 97 on room air -c/w levaquin (5) Diarrhea Code(s): R19.7 - Diarrhea, unspecified Status: Acute Plan: On admission patient presented with 3-day history of diarrhea in the setting of recent antibiotics. All bowel regimens held. Patient C. difficile negative. -Diarrhea has improved and decreasing frequency. Patient reports 2 episodes of small amount of diarrhea this morning. Continue with probiotics. (6) Schizophrenia Code(s): F20.9 - Schizophrenia, unspecified Status: Chronic Plan: Patient with chronic history of schizophrenia. On admission patient presented with active hallucinations of seeing someone out to get her. On exam today patient was calm and cooperative. Denies suicidal ideation. AAOx3. Denied auditory or tactile hallucinations. Per Psychiatry continue with Abilify 30 mg for psychosis, okay to continue buspirone 30 mg, trazodone 100 mg and Cymbalta 60 mg, but hold anticholinergics to avoid more cognitive impairment. - Patient's mood is stable today - Follow Psych recommendations (7) Hypertension Code(s): I10 - Essential (primary) hypertension Status: Acute Plan: Patient with history of HTN on home diltiazem. Blood pressures have been stable at 120s-140s systolic. - cardizem dose decreased to 60mg TID due to patient c/o of lightheadedness upon standing and working with physical therapy yesterday -continue to monitor (8) Fungal infection of skin of abdomen Code(s): B36.9 - Superficial mycosis, unspecified Status: Acute Plan: Presented on admission with what appears to be rash under the abdominal folds and groin area. Skin lesions is mildly tender but stable. No bleeding noted on exam, dressing in place c/d/i. Per ID recommendations discontinue nystatin ointment fluconazole po General surgery recommend patients for skin barrier and dressing change, no operative intervention indicated at this time follow wound care recs continue to monitor (9) Nutrition, metabolism, and development symptoms Code(s): R63.8 - Other symptoms and signs concerning food and fluid intake Status: Acute Plan: Fluids: 100mls/hr Electrolytes: Replete as needed Nutrition: cardiac diet, continue to monitor po intake, supplement with ensure DVT prophylaxis: SCDs <Nikole Washington - 10/03/17 19:18> - Assessment and Plan The exam, history, and the medical decision-making described in the above note were completed with the assistance of the resident physician. I reviewed and agree with the findings presented. I attest that I had a [id number] encounter with the patient on the same day, and personally performed and documented my assessment and findings in the medical record. She has gotten in for the first time today and was sitting in a chair. She is very deconditioned. Her blood pressures are a little bit low. Consideration will be given to adjusting her medications and a rehab facility will be investigated for her. <Nikole Washington - 10/03/17 15:51> - Attending Attestation The exam, history, and the medical decision-making described in the above note were completed with the assistance of the resident physician. I reviewed and agree with the findings presented. I attest that I had a [id number] encounter with the patient on the same day, and personally performed and documented my assessment and findings in the medical record. she is improving and wants to go home [facility] <Maddy Jackson M - 10/06/17 14:10> <Nikole Washington - Last Filed: 10/03/17 19:18> (3) Neutropenia Qualifiers: Neutropenia type: unspecified Qualified Code(s): D70.9 - Neutropenia, unspecified (4) Pneumonia Qualifiers: Pneumonia type: due to unspecified organism Laterality: left Lung location: lower lobe of lung Qualified Code(s): J18.1 - Lobar pneumonia, unspecified organism (7) Hypertension Qualifiers: Hypertension type: essential hypertension Qualified Code(s): I10 - Essential (primary) hypertension <RenettaMaddy M - Last Filed: 10/06/17 14:10> (3) Pneumonia Qualifiers: Pneumonia type: due to unspecified organism Laterality: left Lung location: lower lobe of lung Qualified Code(s): J18.1 - Lobar pneumonia, unspecified organism (6) Hypertension Qualifiers: Hypertension type: essential hypertension Qualified Code(s): I10 - Essential (primary) hypertension <Nikole Washington D - Last Filed: 10/03/17 19:18> (3) Neutropenia Qualifiers: Neutropenia type: unspecified Qualified Code(s): D70.9 - Neutropenia, unspecified (4) Pneumonia Qualifiers: Pneumonia type: due to unspecified organism Laterality: left Lung location: lower lobe of lung Qualified Code(s): J18.1 - Lobar pneumonia, unspecified organism (7) Hypertension Qualifiers: Hypertension type: essential hypertension Qualified Code(s): I10 - Essential (primary) hypertension <Maddy Jackson - Last Filed: 10/06/17 14:10> (3) Pneumonia Qualifiers: Pneumonia type: due to unspecified organism Laterality: left Lung location: lower lobe of lung Qualified Code(s): J18.1 - Lobar pneumonia, unspecified organism (6) Hypertension Qualifiers: Hypertension type: essential hypertension Qualified Code(s): I10 - Essential (primary) hypertension
--- NOTE | 2017-10-03 16:21 | P.PNID ---
Subjective Remarks: ID coverage. 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 Post op it appears she was discharged to a rehab. She was discharged from the rehab to home with her on August 23. Patient reports she lives at home with her who is on disability. Unsure of nature of disability at this time and his ability to take care of her. She was reportedly able to ambulate on her own initially followed by weakness and need for walker and then to a point where she did not want to get out of bed. It has been reported to others that she had some discharge at the left surgical site area and ortho surgeon prescribed oral keflex which reportedly lead to some improvement. She reportedly completed a week of antibiotic treatment with last day scheduled for today with some improvement in her knee pain. However her stated that she was starting to have more drainage from her knee just over the past day or so. He had pointed to several areas that had been draining pus from just above and just below the knee. He stated that a cup full of pus would drain at a time. Additionally the abdominal fold wounds appear to have been present for atleast 3 weeks now. Additionally patient has a psychiatric history and is on medications such as Cymbalta and Abilify. She actively hallucinates per dw resident team and psych would like to resume her meds that are on hold due to severe neutropenia. With this background patient presents to the ED with complaints of worsening shortness of breath and mental status accompanied with symptoms of diarrhea (3 days, non-bloody) and decreased p.o. intake (5 days). She was also brought into the hospital due to infection of her knee that improved with Keflex p.o but now has returned with new additional drainage over the past few days. ID consulted for evaluation and Mment of Left knee prosthetic joint infection and neutropenia. Patient is alert. Denies left knee pain. Notes mild pain at the abdomen. Denies chills. Denies nausea vomiting. The white blood cell count is elevated. Current white blood cell count is 44, 000. Patient still receiving Neupogen. No fever. Antibiotics: Cefepime Allergies/Adverse Reactions: Allergies amoxicillin Allergy (Verified 09/27/17 17:54) Swelling Objective Vital Signs 10/02/17 16:17 10/02/17 20:00 10/03/17 00:00 Temperature 98.3 F 98.8 F Pulse Rate 110 H 97 H 90 Respiratory Rate 18 18 Blood Pressure 109/57 L 115/60 Pulse Oximetry 95 95 10/03/17 04:00 10/03/17 08:00 10/03/17 12:00 Temperature 98.5 F 98.5 F 97.8 F Pulse Rate 89 120 H 116 H Respiratory Rate 18 16 17 Blood Pressure 119/66 139/64 143/82 H Pulse Oximetry 99 100 97 Intake & Output 10/02/17 10/03/17 10/03/17 18:59 06:59 18:59 Intake Total 100 / 100 100 / 100 100 / 100 Output Total 300 / 300 350 / 350 Balance -200 / -200 -250 / -250 100 / 100 Weight 66.6 kg Intake: IV 100 / 100 100 / 100 100 / 100 Maxipime Inj 2,000 MG In NS Inj 100 / 100 100 / 100 100 / 100 100 ML @ 200 mls/hr IV.SIG Q8H [facility] Rx#:[id number] Output: Urine 300 / 300 350 / 350 Other: # Bowel Movements 1 09/27/17 08:25 Blood - Peripheral Aerobic Blood Culture - Final No growth in 5 days 09/27/17 08:25 Blood - Peripheral Anaerobic Blood Culture - Final No growth in 5 days 09/27/17 08:10 Blood - Peripheral Aerobic Blood Culture - Final No growth in 5 days 09/27/17 08:10 Blood - Peripheral Anaerobic Blood Culture - Final No growth in 5 days 09/30/17 11:30 Stool Stool Occult Blood ([facility]) - Final Hemoccult negative Lab - Hematology Results 10/02/17 10/03/17 06:39 07:10 WBC 30.1 H D 34.0 H RBC 3.59 L 3.29 L Hgb 9.6 L 8.8 L Hct 28.4 L 26.5 L MCV 79.0 L 80.6 MCH 26.6 L 26.9 L MCHC 33.6 33.4 RDW 20.7 H 21.2 H Plt Count 106 L 135 L MPV 8.9 9.4 Prelim Diff (Auto) Manual diff required Slide review pending Neut % (Auto) 88.7 H Lymph % (Auto) 7.3 L [place] % (Auto) 3.1 Eos % (Auto) 0.6 Baso % (Auto) 0.3 Neut # (Auto) 30.2 H Lymph # (Auto) 2.5 [place] # (Auto) 1.1 H Eos # (Auto) 0.2 Baso # (Auto) 0.1 WBC Differential Manual diff final Manual diff final Seg Neuts % (Manual) 59 68 Band Neuts % (Manual) 9 H 20 H Lymphocytes % (Manual) 14 7 L Monocytes % (Manual) 5 2 Eosinophils % (Manual) 1 Metamyelocytes % (Man) 5 H 3 H Myelocytes % (Man) 7 H Abs Neuts (Manual) 24.1 H 30.9 H Nucleated RBCs/100 WBC 1 H Differential Comment . . Toxic Granulation 2+ H Toxic Vacuolation Present H Present H Platelet Estimate Low L Low L Platelet Morphology Normal Normal Target Cells 2+ H Ovalocytes 1+ H Lab - Chemistry Results 09/27/17 10/02/17 10/03/17 15:20 06:39 07:00 Sodium 143 142 Potassium 3.1 L 3.6 Chloride 110 H 110 H Carbon Dioxide 23.3 22.1 Anion Gap 10 10 BUN 7 7 Creatinine 0.57 0.55 Estimated GFR Greater than 89 Greater than 89 Random Glucose 54 L 52 L Calcium 7.8 L 8.2 L Total Bilirubin 0.7 AST 17 ALT 24 Alkaline Phosphatase 158 H Total Protein 5.2 L Albumin 1.4 L RBC Folate 643 Imaging: ITS Impressions Knee CT 09/27/17 00:00 CONCLUSION: 1. Left knee arthroplasty without fracture. 2. There does appear to be a joint effusion with fluid tracking anteriorly within the knee. Knee X-Ray 09/27/17 00:00 CONCLUSION: No acute left knee abnormality is identified. Total knee arthroplasty hardware demonstrates no acute finding. Possible small joint effusion. Tibia/Fibula X-Ray 09/27/17 00:00 CONCLUSION: No acute left leg abnormality is identified. Abdomen/Pelvis CT 09/27/17 08:10 CONCLUSION: 1. Mild hepatic steatosis. 2. Thickening of the colon secondary to lack of distention versus colitis. 3. Left lower lobe consolidation and/or atelectasis. There does appear to be a 1.4 cm cavitary area which makes consolidation likely. Chest X-Ray 09/27/17 08:10 CONCLUSION: Stable chest without evidence of acute cardiopulmonary process. Postsurgical changes in the lower cervical spine following anterior fusion. Head CT 09/27/17 08:10 CONCLUSION: No acute intracranial abnormality is seen. Chest CTA 09/27/17 08:22 CONCLUSION: 1. No pulmonary embolus. 2. Consolidation or atelectasis at the left lower lobe. Venous Doppler Study 09/29/17 00:00 CONCLUSION: No evidence of deep venous thrombosis. Physical Exam: GENERAL: Alert and oriented, no acute distress. HEENT: Pupils reactive to light. Extraocular movements intact. No icterus. NECK: Supple without adenopathy. No swelling. LUNGS: Decreased breath sounds bilateral. HEART: Regular S1 and S2 without murmurs or rubs or gallops. ABDOMEN: Obese, soft. Nontender. Open ulcerated large areas of skin at the skin fold of the abdomen pannus And inner thighs mons. EXTREMITIES: swelling of the left knee. Positive warmth. Tiny ulceration couple millimeters at the lower aspect of the knee surgical incision now has formed a scab. SKIN: No diffuse rash. Weeping of the skin and edema of right forearm NEUROLOGIC: Awake and alert and oriented. Nonfocal. PSYCH: Calm and cooperative. Assessment and Plan - Plan IMPRESSION: Neutropenic sepsis Leucopenia, pancytopenia: ? MTX, ? Psych meds, ? Sepsis contributing. White blood cell count slightly increased. Neupogen started. Abdominal fold cellulitis/skin breakdown. Groin cellulitis, Mons pubis cellulitis/skin breakdown. H/o fall with scraping of left knee. Left knee hardware in place. CT with fluid collection. Left knee infection - wound culture has Pseudomonas and group B beta strep. Dysphagia: mucositis. Concern for Susy Esophagitis RECOMMENDATIONS: Continue Cefepime IV Continue Levaquin. Resume Diflucan p.o. Stop Neupogen Stop nystatin to the wounds Stop nystatin swish and swallow Monitor the wounds along with wound care assessment and recommendations for treatment. I think the patient will need close follow-up for the wounds by wound care service. She has she is at risk for worsening of the wounds PICC line has been ordered.
[2017-10-03] MEDS: Sod Chloride 0.9% Inj 1,000 ML IV.CONT SCH ×3 (17:02→23:43)
[2017-10-04] MEDS: Sod Chloride 0.9% Inj 1,000 ML IV.CONT SCH ×2 (03:54→19:23)
[2017-10-04 06:56] LABS: Hematocrit 32.2 % (35.0-46.0); Hemoglobin 10.3 gm/dL (11.6-15.3); Mean Corpuscular Hemoglobin 26.2 pg (27.0-34.0); Mean Platelet Volume 9.1 fL (7.0-11.0); Platelet Count 171 th/mm3 (150-450); Red Blood Count 3.92 mil/mm3 (4.00-5.30); Red Cell Distribution Width 21.6 % (11.6-17.2); White Blood Count 42.8 th/mm3 (4.0-11.0)
[2017-10-04 07:16] LABS: Anion Gap 9 meq/L (5-15); Blood Urea Nitrogen 6 mg/dL (7-18); Calcium 8.3 mg/dL (8.5-10.1); Chloride 110 meq/L (98-107); Glomerular Filtration Rate Greater Than 89 mL/min (>89); Potassium 4.1 meq/L (3.5-5.1); Sodium 141 meq/L (136-145)
[2017-10-04 07:24] LABS: Glucose,Random 40 mg/dL (74-106)
[2017-10-04 08:35] LABS: Lymphocytes 5 % (9-44); Metamyelocytes 5 % (0-1); Monocytes 7 % (0-8); Myelocytes 8 % (0-0); Tallied Nucleated RBC 3 (0-0)
[2017-10-04 08:36] LABS: Platelet Estimate Normal (Normal); Platelet Morphology Normal (Normal); Target Cells 1+; Toxic Granulation 1+
[2017-10-04 08:37] LABS: Dohle Bodies Present; Polychromasia 2.3 % (0.0-1.9); Tear Drop Cells 1+
--- NOTE | 2017-10-04 08:57 | P.PNFP ---
Subjective Interval history: Patient was seen at bedside this morning. There were no acute overnight events. Patient reports feeling overall well, with no issues or concerns. She reports being able to ambulate without pain and was adamant about her desire to go home. Patient believes she is well, and believes that her can help her at home with medications via PICC line. All questions were answered to her satisfaction. She denies any subjective fevers, chills, nausea, vomiting, chest pain, leg pain, shortness of breath. <Yon Carney O - 10/04/17 08:57> Results - Labs Result diagrams: 10/05/17 06:40 10/05/17 06:40 <Maddy Jackson M - 10/06/17 14:12> Abnormal lab results 10/03/17 10/03/17 10/04/17 Range/Units 07:00 07:10 05:26 WBC 34.0 H 42.8 H (4.0-11.0) th/mm3 RBC 3.29 L 3.92 L (4.00-5.30) mil/mm3 Hgb 8.8 L 10.3 L (11.6-15.3) gm/dL Hct 26.5 L 32.2 L (35.0-46.0) % MCH 26.9 L 26.2 L (27.0-34.0) pg RDW 21.2 H 21.6 H (11.6-17.2) % Plt Count 135 L (150-450) th/mm3 Neut % (Auto) 88.7 H (16.0-70.0) % Lymph % (Auto) 7.3 L (9.0-44.0) % Neut # (Auto) 30.2 H (1.8-7.7) th/mm3 [place] # (Auto) 1.1 H (0.0-0.9) th/mm3 Band Neuts % (Manual) 20 H 20 H (0-6) % Lymphocytes % (Manual) 7 L 5 L (9-44) % Metamyelocytes % (Man) 3 H 5 H (0-1) % Myelocytes % (Man) 8 H (0-0) % Abs Neuts (Manual) 30.9 H 37.7 H (1.8-7.7) th/mm3 Nucleated RBCs/100 WBC 3 H (0-0) /100 WBC Toxic Granulation 2+ H 1+ H (None) Toxic Vacuolation Present H (None) Dohle Bodies Present H (None) Platelet Estimate Low L (Normal) Polychromasia 2.3 H (0.0-1.9) % Target Cells 2+ H 1+ H (None) Tear Drop Cells 1+ H (None) Ovalocytes 1+ H (None) Chloride 110 H (98-107) meq/L BUN (7-18) mg/dL Random Glucose 52 L (74-106) mg/dL Calcium 8.2 L (8.5-10.1) mg/dL 10/04/17 Range/Units 05:26 WBC (4.0-11.0) th/mm3 RBC (4.00-5.30) mil/mm3 Hgb (11.6-15.3) gm/dL Hct (35.0-46.0) % MCH (27.0-34.0) pg RDW (11.6-17.2) % Plt Count (150-450) th/mm3 Neut % (Auto) (16.0-70.0) % Lymph % (Auto) (9.0-44.0) % Neut # (Auto) (1.8-7.7) th/mm3 [place] # (Auto) (0.0-0.9) th/mm3 Band Neuts % (Manual) (0-6) % Lymphocytes % (Manual) (9-44) % Metamyelocytes % (Man) (0-1) % Myelocytes % (Man) (0-0) % Abs Neuts (Manual) (1.8-7.7) th/mm3 Nucleated RBCs/100 WBC (0-0) /100 WBC Toxic Granulation (None) Toxic Vacuolation (None) Dohle Bodies (None) Platelet Estimate (Normal) Polychromasia (0.0-1.9) % Target Cells (None) Tear Drop Cells (None) Ovalocytes (None) Chloride 110 H (98-107) meq/L BUN 6 L (7-18) mg/dL Random Glucose 40 L* (74-106) mg/dL Calcium 8.3 L (8.5-10.1) mg/dL Short CBC 10/03/17 10/04/17 Range/Units 07:10 05:26 WBC 34.0 H 42.8 H (4.0-11.0) th/mm3 Hgb 8.8 L 10.3 L (11.6-15.3) gm/dL Hct 26.5 L 32.2 L (35.0-46.0) % Plt Count 135 L 171 (150-450) th/mm3 BMP 10/03/17 10/04/17 07:00 05:26 Sodium 142 141 Potassium 3.6 4.1 Chloride 110 H 110 H Carbon Dioxide 22.1 22.0 BUN 7 6 L Creatinine 0.55 0.62 Calcium 8.2 L 8.3 L <AngelikaYon O - 10/04/17 08:57> Physical Exam Vital signs: Vital Signs 10/05/17 16:00 10/05/17 19:20 10/05/17 22:37 Temperature 98.9 F 98 F Pulse Rate 120 H 125 H 118 H Respiratory Rate 12 18 Blood Pressure 134/66 109/60 Pulse Oximetry 96 95 10/06/17 00:00 10/06/17 04:00 10/06/17 05:13 Temperature 97.6 F 98.1 F Pulse Rate 128 H 129 H Respiratory Rate 18 18 16 Blood Pressure 126/66 123/68 Pulse Oximetry 67 L 98 10/06/17 05:58 10/06/17 07:00 10/06/17 08:00 Temperature 98.2 F Pulse Rate 123 H 123 H Respiratory Rate 18 14 Blood Pressure 131/75 Pulse Oximetry 98 10/06/17 12:00 Temperature 98.5 F Pulse Rate 128 H Respiratory Rate 18 Blood Pressure 117/63 Pulse Oximetry 96 Intake & Output 10/05/17 10/06/17 10/06/17 18:59 06:59 18:59 Intake Total 200 / 200 1100 / 1100 100 / 100 Balance 200 / 200 1100 / 1100 100 / 100 Weight 106.3 kg Intake: IV 200 / 200 1100 / 1100 100 / 100 NS Inj 1,000 ML @ 100 mls/hr IV 1000 / 1000 .CONT .Q10H [facility] Rx#:[id number] Maxipime Inj 2,000 MG In NS Inj 200 / 200 100 / 100 100 / 100 100 ML @ 200 mls/hr IV.SIG Q8H [facility] Rx#:[id number] Other: # Voids 4 Date of Last Bowel Movement 10/05/17 10/05/17 10/06/17 # Bowel Movements 1 <Maddy Jackson M - 10/06/17 14:12> Vital Signs 10/03/17 12:00 10/03/17 16:00 10/03/17 20:00 Temperature 97.8 F 98.5 F 98.3 F Pulse Rate 116 H 121 H 111 H Respiratory Rate 17 17 17 Blood Pressure 143/82 H 125/59 L 108/59 L Pulse Oximetry 97 96 97 10/04/17 00:00 10/04/17 04:00 Temperature 98.1 F 99.4 F Pulse Rate 110 H 113 H Respiratory Rate 17 17 Blood Pressure 109/56 L 121/59 L Pulse Oximetry 97 97 Intake & Output 10/03/17 10/04/17 10/04/17 18:59 06:59 18:59 Intake Total 1680 / 1680 1150 / 1150 Output Total 450 / 450 Balance 1230 / 1230 1150 / 1150 Weight 106.6 kg Intake: IV 1200 / 1200 1000 / 1000 NS Inj 1,000 ML @ 100 mls/hr IV 1000 / 1000 1000 / 1000 .CONT .Q10H [facility] Rx#:[id number] Maxipime Inj 2,000 MG In NS Inj 200 / 200 100 ML @ 200 mls/hr IV.SIG Q8H [facility] Rx#:[id number] Oral 480 / 480 150 / 150 Output: Urine Amount (Catheter) 450 / 450 Indwelling Urethral Catheter 450 / 450 Other: # Voids 450 Date of Last Bowel Movement 10/03/17 10/04/17 # Bowel Movements 2 # Incontinent Bowel Movements 2 <Yon Carney - 10/04/17 08:57> - Constitutional no acute distress, morbidly obese, cooperative <Yon Carney - 10/04/17 08:57 > - Routine HEENT Exam Head: Present: normocephalic, atraumatic <Yon Carney 10/04/17 08:57> Eye: Present: EOMI <Yon Carney - 10/04/17 08:57> - Routine Respiratory Exam Present: CTA bilaterally. Absent: accessory muscle use, rales, respiratory distress, rhonchi, stridor, wheezes, crackles, distant breath sounds, diminished air movement <Yon Carney 10/04/17 08:57> - Routine Cardiovascular Exam Present: RRR, S1, S2. Absent: murmur, gallop, rubs <Yon Carney 10/04/17 08:57> - Routine Abdominal Exam Present: soft, normoactive bowel sounds, tenderness. Absent: distended, rebound , guarding <Yon Carney 10/04/17 08:57> Comments: Patient has a full-thickness infection of the skin. With sloughing and new granulation tissue. Wound has older this morning that she did not have previously. <CarneyYon singletary 10/04/17 08:57> - Routine Extremities Exam Present: pulses intact. Absent: cyanosis, clubbing, edema <Yon Carney 08:57> Comments: Patient has no swelling or tenderness around left knee. Left leg below-knee has significant dryness on the skin. No cracking or bleeding. Patient has several ecchymoses on left and right arms bilaterally due to previous intravenous attempts. 2 bullae were observed on her right forearm with no bleeding or signs of infection. <CarneyYon singletary 10/04/17 08:57> - Routine Skin Exam Comments: Significant dry skin on left lower limb from knee down. Some desquamation in the anterior portion of the left leg as well as at the anterior portion of her left ankle. <Yon Carney 10/04/17 08:57> - Routine Neurological Exam Present: alert, oriented X3, normal tone, normal speech. Absent: sensory deficit, motor deficit, vision grossly intact, hearing grossly intact, facial asymmetry <Carney,Yon Espinoza 10/04/17 08:57> - Detailed Neurological Exam: Coma Scale Eye Opening: Spontaneous <Carney,Yon Espinoza 10/04/17 08:57> Verbal Response: Oriented <Yon Carney Alexis 10/04/17 08:57> Motor Response: Obey commands <CarneyYon ritter Alexis 10/04/17 08:57> [place] Coma Scale Total: 15 <Carney,Yon Espinoza 10/04/17 09:22> - Routine Psychiatric Exam Present: normal affect, normal thought process, cooperative, good insight, good judgment <Yon Carney 10/04/17 08:57> - Urinary Catheter Management Indwelling Urethral Catheter Cath placed during this visit: no <Maddy Jackson - 10/06/17 14:12> yes <Yon Carney - 10/04/17 09:22> Reason for continuing: Severe pressure ulcer/wound <Yon Carney 10/04/17 08:57> Insertion date: 09/27/17 <Yon Carney 10/04/17 08:57> Insertion time: 08:20 <Yon Carney 10/04/17 08:57> Assessment and Plan - Assessment (1) Cellulitis of knee, left Code(s): L03.116 - Cellulitis of left lower limb Status: Acute (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 - Infection and inflammatory reaction due to unspecified internal joint prosthesis, initial encounter Status: Suspected (3) Pneumonia Code(s): J18.9 - Pneumonia, unspecified organism Status: Resolved (4) Diarrhea Code(s): R19.7 - Diarrhea, unspecified Status: Acute (5) Schizophrenia Code(s): F20.9 - Schizophrenia, unspecified Status: Chronic (6) Hypertension Code(s): I10 - Essential (primary) hypertension Status: Acute (7) Fungal infection of skin of abdomen Code(s): B36.9 - Superficial mycosis, unspecified Status: Acute (8) Nutrition, metabolism, and development symptoms Code(s): R63.8 - Other symptoms and signs concerning food and fluid intake Status: Acute <Maddy Jackson - 10/06/17 14:12> (1) Cellulitis of knee, left Code(s): L03.116 - Cellulitis of left lower limb Status: Acute Plan: See plan above for sepsis. Her states that there was drainage from the knee and infection for weeks before she presented to the hospital. She has taken approximately 2 weeks of p.o. Keflex 500 mg. Today there is no drainage, swelling/effusion, or pain in the left knee. Patient is able to ambulate without pain. Left Leg erythema and swelling has resolved. There is desquamation superficially in the anterior portion of the left lower leg below the knee. Patient will be receiving PICC line to continue antibiotic treatment outpatient. 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 She completed rehabilitation and was discharged home August 23. Patient recently treated with antibiotics for left leg infection. Patient was on approximately 2 weeks of po Keflex 500 mg. No drainage from wound was appreciated, erythema resolved, +2 edema and mild tenderness present on Left LE. Per Ortho, examination of left knee shows no evidence of infection. - See plan above for left leg cellulitis (3) Neutropenia Code(s): D70.9 - Neutropenia, unspecified Status: Resolved Plan: Patient presented with new onset neutropenia with WBC of (0.9). Prior blood work reviewed and white blood cells were within normal limits. Neutropenia possibly due to sepsis, psychotic and/or RA medications or bone marrow malignancy. Patient also become thrombocytopenic with a platelet count of 59, likely caused by a combination of sepsis and current medication regimen. Heme/ Onc following. Per Heme/Onc rheumatologic medicines including methotrexate and the unknown biologic that she was taking have been held. Today patient continues to improve white count now 34 post Neupogen, H\H now 8.8\26.5, and platelet count now at 171. - Continue to monitor WBC - f/u HIT results - Pt off heparin SQ (4) Pneumonia Code(s): J18.9 - Pneumonia, unspecified organism Status: Acute Plan: Patient found to have left lower lobe consolidation on chest CTA. On examination today mild atelectasis appreciated at lower bases bilaterally, more pronounced on left lower base. Today patient reports no shortness of breath or difficulty breathing. Physical examination all lung solares were clear to auscultation. She remains afebrile, satting 97% on room air, but was slightly tachycardic this morning at 113. Patient currently on Levaquin. -Continue to monitor vital signs -Continue incentive spirometry (5) Diarrhea Code(s): R19.7 - Diarrhea, unspecified Status: Acute Plan: On admission patient presented with 3-day history of diarrhea in the setting of recent antibiotics. All bowel regimens held. Patient C. difficile negative. -Diarrhea has improved and decreasing frequency. Patient patient denies any diarrhea this morning. Continue with probiotics. (6) Schizophrenia Code(s): F20.9 - Schizophrenia, unspecified Status: Chronic Plan: Patient with chronic history of schizophrenia. On admission patient presented with active hallucinations of seeing someone out to get her. On exam today patient was calm and cooperative. Denies suicidal ideation. AAOx3. Denied auditory or tactile hallucinations. Per Psychiatry continue with Abilify 30 mg for psychosis, okay to continue buspirone 30 mg, trazodone 100 mg and Cymbalta 60 mg, but hold anticholinergics to avoid more cognitive impairment. - Patient's mood is stable today - Follow Psych recommendations (7) Hypertension Code(s): I10 - Essential (primary) hypertension Status: Acute Plan: Patient with history of HTN on home diltiazem. Blood pressures have been stable at 120s-140s systolic. - cardizem dose decreased to 60mg TID due to patient c/o of lightheadedness upon standing and working with physical therapy yesterday -continue to monitor (8) Fungal infection of skin of abdomen Code(s): B36.9 - Superficial mycosis, unspecified Status: Acute Plan: Presented on admission with what appears to be rash under the abdominal folds and groin area. Skin lesions is mildly tender but stable. No bleeding noted on exam, dressing in place c/d/i. Per ID recommendations discontinue nystatin ointment fluconazole po General surgery recommend patients for skin barrier and dressing change, no operative intervention indicated at this time follow wound care recs continue to monitor (9) Nutrition, metabolism, and development symptoms Code(s): R63.8 - Other symptoms and signs concerning food and fluid intake Status: Acute Plan: Fluids: 100mls/hr Electrolytes: Replete as needed Nutrition: cardiac diet, continue to monitor po intake, supplement with ensure DVT prophylaxis: SCDs <Yon Carney O - 10/04/17 09:22> - Assessment and Plan The exam, history, and the medical decision-making described in the above note were completed with the assistance of the resident physician. I reviewed and agree with the findings presented. I attest that I had a [id number] encounter with the patient on the same day, and personally performed and documented my assessment and findings in the medical record. She has gotten in for the first time today and was sitting in a chair. She is very deconditioned. Her blood pressures are a little bit low. Consideration will be given to adjusting her medications and a rehab facility will be investigated for her. <Yon Carney O - 10/04/17 08:57> - Attending Attestation The exam, history, and the medical decision-making described in the above note were completed with the assistance of the resident physician. I reviewed and agree with the findings presented. I attest that I had a [id number] encounter with the patient on the same day, and personally performed and documented my assessment and findings in the medical record. she has chronic wounds due to the abnormal folds of her abdomen post surgery. she has constant skin touching and in [place] in the summer she will always be wet. appreciate help of wound care as she needs barrier and care to improve <Maddy Jackson M - 10/06/17 14:12> <Yon Carney O - Last Filed: 10/04/17 09:22> (3) Neutropenia Qualifiers: Neutropenia type: unspecified Qualified Code(s): D70.9 - Neutropenia, unspecified (4) Pneumonia Qualifiers: Pneumonia type: due to unspecified organism Laterality: left Lung location: lower lobe of lung Qualified Code(s): J18.1 - Lobar pneumonia, unspecified organism (7) Hypertension Qualifiers: Hypertension type: essential hypertension Qualified Code(s): I10 - Essential (primary) hypertension <Maddy Jackson M - Last Filed: 10/06/17 14:12> (3) Pneumonia Qualifiers: Pneumonia type: due to unspecified organism Laterality: left Lung location: lower lobe of lung Qualified Code(s): J18.1 - Lobar pneumonia, unspecified organism (6) Hypertension Qualifiers: Hypertension type: essential hypertension Qualified Code(s): I10 - Essential (primary) hypertension <Yon Carney O - Last Filed: 10/04/17 09:22> (3) Neutropenia Qualifiers: Neutropenia type: unspecified Qualified Code(s): D70.9 - Neutropenia, unspecified (4) Pneumonia Qualifiers: Pneumonia type: due to unspecified organism Laterality: left Lung location: lower lobe of lung Qualified Code(s): J18.1 - Lobar pneumonia, unspecified organism (7) Hypertension Qualifiers: Hypertension type: essential hypertension Qualified Code(s): I10 - Essential (primary) hypertension <Maddy Jackson M - Last Filed: 10/06/17 14:12> (3) Pneumonia Qualifiers: Pneumonia type: due to unspecified organism Laterality: left Lung location: lower lobe of lung Qualified Code(s): J18.1 - Lobar pneumonia, unspecified organism (6) Hypertension Qualifiers: Hypertension type: essential hypertension Qualified Code(s): I10 - Essential (primary) hypertension
[2017-10-04] MEDS: levoFLOXacin 750 MG Tablet PO SCH (10:40)
[2017-10-04] MEDS: Pantoprazole Sodium 20 MG DR Tablet PO SCH (10:41)
[2017-10-04] MEDS: traZODone 100 MG Tablet PO SCH (10:41)
[2017-10-04] MEDS: Duloxetine 60 MG DR Capsule PO SCH (10:41)
[2017-10-04] MEDS: dilTIAZem 60 MG Tablet PO SCH ×3 (10:44→18:33)
[2017-10-04] MEDS: Folic Acid Inj 1 MG/0.2 ML VIAL IM SCH (10:45)
[2017-10-04] MEDS ORDERED: Heparin Central Flush 100 UNIT/ML 5 ML Vial IV.FLUSH PRN (12:22)
--- NOTE | 2017-10-04 17:20 | P.PNID ---
Subjective Remarks: ID coverage. 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 Post op it appears she was discharged to a rehab. She was discharged from the rehab to home with her on August 23. Patient reports she lives at home with her who is on disability. Unsure of nature of disability at this time and his ability to take care of her. She was reportedly able to ambulate on her own initially followed by weakness and need for walker and then to a point where she did not want to get out of bed. It has been reported to others that she had some discharge at the left surgical site area and ortho surgeon prescribed oral keflex which reportedly lead to some improvement. She reportedly completed a week of antibiotic treatment with last day scheduled for today with some improvement in her knee pain. However her stated that she was starting to have more drainage from her knee just over the past day or so. He had pointed to several areas that had been draining pus from just above and just below the knee. He stated that a cup full of pus would drain at a time. Additionally the abdominal fold wounds appear to have been present for atleast 3 weeks now. Additionally patient has a psychiatric history and is on medications such as Cymbalta and Abilify. She actively hallucinates per dw resident team and psych would like to resume her meds that are on hold due to severe neutropenia. With this background patient presents to the ED with complaints of worsening shortness of breath and mental status accompanied with symptoms of diarrhea (3 days, non-bloody) and decreased p.o. intake (5 days). She was also brought into the hospital due to infection of her knee that improved with Keflex p.o but now has returned with new additional drainage over the past few days. ID consulted for evaluation and Mment of Left knee prosthetic joint infection and neutropenia. Patient is alert. Denies left knee pain. Says she does not have pain at the abdomen. Denies chills. Denies nausea vomiting. The white blood cell count remain elevated. Recieved neupogen. No fever. Antibiotics: Cefepime Levaquin. Diflucan. Allergies/Adverse Reactions: Allergies amoxicillin Allergy (Verified 09/27/17 17:54) Swelling Objective Vital Signs 10/03/17 20:00 10/04/17 00:00 10/04/17 04:00 Temperature 98.3 F 98.1 F 99.4 F Pulse Rate 111 H 110 H 113 H Respiratory Rate 17 17 17 Blood Pressure 108/59 L 109/56 L 121/59 L Pulse Oximetry 97 97 97 10/04/17 08:00 10/04/17 10:18 10/04/17 12:00 Temperature 99.7 F H 98 F Pulse Rate 127 H 131 H 126 H Respiratory Rate 20 20 Blood Pressure 133/67 133/76 Pulse Oximetry 98 98 Intake & Output 10/03/17 10/04/17 10/04/17 18:59 06:59 18:59 Intake Total 1680 / 1680 1250 / 1250 Output Total 450 / 450 Balance 1230 / 1230 1250 / 1250 Weight 106.6 kg Intake: IV 1200 / 1200 1100 / 1100 NS Inj 1,000 ML @ 100 mls/hr IV 1000 / 1000 1000 / 1000 .CONT .Q10H [facility] Rx#:[id number] Maxipime Inj 2,000 MG In NS Inj 200 / 200 100 / 100 100 ML @ 200 mls/hr IV.SIG Q8H [facility] Rx#:[id number] Oral 480 / 480 150 / 150 Output: Urine Amount (Catheter) 450 / 450 Indwelling Urethral Catheter 450 / 450 Other: # Voids 450 Date of Last Bowel Movement 10/03/17 10/04/17 # Bowel Movements 2 # Incontinent Bowel Movements 2 09/27/17 08:25 Blood - Peripheral Aerobic Blood Culture - Final No growth in 5 days 09/27/17 08:25 Blood - Peripheral Anaerobic Blood Culture - Final No growth in 5 days 09/27/17 08:10 Blood - Peripheral Aerobic Blood Culture - Final No growth in 5 days 09/27/17 08:10 Blood - Peripheral Anaerobic Blood Culture - Final No growth in 5 days Lab - Hematology Results 10/03/17 10/04/17 07:10 05:26 WBC 34.0 H 42.8 H RBC 3.29 L 3.92 L Hgb 8.8 L 10.3 L Hct 26.5 L 32.2 L MCV 80.6 82.0 MCH 26.9 L 26.2 L MCHC 33.4 32.0 RDW 21.2 H 21.6 H Plt Count 135 L 171 MPV 9.4 9.1 Prelim Diff (Auto) Slide review pending Manual diff required Neut % (Auto) 88.7 H Lymph % (Auto) 7.3 L [place] % (Auto) 3.1 Eos % (Auto) 0.6 Baso % (Auto) 0.3 Neut # (Auto) 30.2 H Lymph # (Auto) 2.5 [place] # (Auto) 1.1 H Eos # (Auto) 0.2 Baso # (Auto) 0.1 WBC Differential Manual diff final Manual diff final Seg Neuts % (Manual) 68 55 Band Neuts % (Manual) 20 H 20 H Lymphocytes % (Manual) 7 L 5 L Monocytes % (Manual) 2 7 Metamyelocytes % (Man) 3 H 5 H Myelocytes % (Man) 8 H Abs Neuts (Manual) 30.9 H 37.7 H Nucleated RBCs/100 WBC 3 H Differential Comment . . Toxic Granulation 2+ H 1+ H Toxic Vacuolation Present H Dohle Bodies Present H Platelet Estimate Low L Normal Platelet Morphology Normal Normal Polychromasia 2.3 H Target Cells 2+ H 1+ H Tear Drop Cells 1+ H Ovalocytes 1+ H Lab - Chemistry Results 10/03/17 10/04/17 10/04/17 07:00 05:26 10:50 Sodium 142 141 Potassium 3.6 4.1 Chloride 110 H 110 H Carbon Dioxide 22.1 22.0 Anion Gap 10 9 BUN 7 6 L Creatinine 0.55 0.62 Estimated GFR Greater than 89 Greater than 89 POC Glucose 99 Random Glucose 52 L 40 L* Calcium 8.2 L 8.3 L Imaging: ITS Impressions Knee CT 09/27/17 00:00 CONCLUSION: 1. Left knee arthroplasty without fracture. 2. There does appear to be a joint effusion with fluid tracking anteriorly within the knee. Knee X-Ray 09/27/17 00:00 CONCLUSION: No acute left knee abnormality is identified. Total knee arthroplasty hardware demonstrates no acute finding. Possible small joint effusion. Tibia/Fibula X-Ray 09/27/17 00:00 CONCLUSION: No acute left leg abnormality is identified. Abdomen/Pelvis CT 09/27/17 08:10 CONCLUSION: 1. Mild hepatic steatosis. 2. Thickening of the colon secondary to lack of distention versus colitis. 3. Left lower lobe consolidation and/or atelectasis. There does appear to be a 1.4 cm cavitary area which makes consolidation likely. Chest X-Ray 09/27/17 08:10 CONCLUSION: Stable chest without evidence of acute cardiopulmonary process. Postsurgical changes in the lower cervical spine following anterior fusion. Head CT 09/27/17 08:10 CONCLUSION: No acute intracranial abnormality is seen. Chest CTA 09/27/17 08:22 CONCLUSION: 1. No pulmonary embolus. 2. Consolidation or atelectasis at the left lower lobe. Venous Doppler Study 09/29/17 00:00 CONCLUSION: No evidence of deep venous thrombosis. Physical Exam: GENERAL: Alert and oriented, no acute distress. HEENT: Pupils reactive to light. Extraocular movements intact. No icterus. NECK: Supple without adenopathy. No swelling. LUNGS: Decreased breath sounds. HEART: Regular S1 and S2 without murmurs or rubs or gallops. ABDOMEN: Obese, soft. Nontender. Open ulcerated large areas of skin with white slough at the skin fold of the abdomen pannus And inner thighs mons. EXTREMITIES: swelling of the left knee. Positive warmth. Tiny ulceration couple millimeters at the lower aspect of the knee surgical incision now has formed a scab. SKIN: No diffuse rash. Weeping of the skin and edema of right forearm NEUROLOGIC: Awake and alert and oriented. Nonfocal. PSYCH: Depressed mood. Assessment and Plan - Plan IMPRESSION: Neutropenic sepsis WBC now elevated from neupogen. Leucopenia, pancytopenia: ? MTX, ? Psych meds, ? Sepsis contributing. White blood cell count slightly increased. Neupogen started. Abdominal fold cellulitis/skin breakdown. Groin cellulitis, Mons pubis cellulitis/skin breakdown. H/o fall with scraping of left knee. Left knee hardware in place. CT with fluid collection. Left knee infection - wound culture has Pseudomonas and group B beta strep. The culture is reported as hip wound culture in micro report.(Spoke to residential real estate assistant who notified me that it was culture from the knee incision lower aspect). Dysphagia: mucositis. Concern for Susy Esophagitis RECOMMENDATIONS: Continue Cefepime IV to complete 6 weeks until November 08, 2017. Continue Levaquin PO until October. Continue Diflucan PO until October 18, 2017. For possible susy abdominal wound infection/ ?esophagitis. I will write antibiotics for discharge but I think the patient needs to be seen by wound care and orders given for skin care and dressings. She probably also needs to follow up in wound care center. She is adamant about going home.
--- NOTE | 2017-10-04 17:24 | P.DCO ---
Post Hospital Infusion Therapy Location of Infusion Therapy: Home Health Care IV Infusion Order Patient Weight: 106.6 kg - Administer Medication Cefepime Dose: 2 grams IV Directions: q 8 hours Stop Treatment: 11/08/17 - Additional Information Venous Access: PICC Line Additional Instructions: [x] Peripheral flush and dressing changes per protocol [x] Implanted port and central power lineman technician: * Implanted port: 10 ml Normal Saline followed by 5 ml Heparin 100 units/ml Heparin flush after each use and monthly to maintain. [] May leave port accessed during therapy. [] May leave peripheral site accessed for duration of therapy. [x] If patient has SOB or respiratory distress, check oxygen saturation. If less than 90% or clinical signs of respiratory distress, administer oxygen at 2 L/min. via nasal cannula and notify physician. [x] Anaphylaxis/Reaction orders: * Stop infusion. * Keep IV line open with saline flush. * Notify physician. * Monitor vital signs every 15 minutes until symptoms resolve. * Check Oxygen saturation; Oxygen at 2 L/min. via nasal cannula if less than 90% or clinical signs of respiratory distress. * Administer diphenhydramine (Benadryl) 25 mg IV STAT, (unless patient has received as pre-med). May repeat once, if necessary. * Solu-Cortef 250 mg IVP over 30-60 seconds, use 100 mg vials for each dissolution. * Epinephrine (1mg/1 ml) 0.3 mg subcutaneously or IVP now with any signs of respiratory distress. * Check with physician for new additional pre-med orders if patient is re- challenged or re-treated. [x] May remove PICC line when treatment complete, after confirming with Physician. [x] If the patient is admitted to the hospital, the ED, or transferred via [facility] , complete transfer form including medication reconciliation order sheet. Weekly Labs: BMP, CBC w/diff Allergies amoxicillin Allergy (Verified 09/27/17 17:54) Swelling
[2017-10-04] MEDS: Heparin Central Flush 100 UNIT/ML 5 ML Vial IV.FLUSH SCH (18:28)
[2017-10-04] MEDS ORDERED: Melatonin 5 MG Tablet PO ONE (20:08)
[2017-10-05] MEDS: Sod Chloride 0.9% Inj 1,000 ML IV.CONT SCH ×2 (05:02→13:45)
[2017-10-05 07:55] LABS: Hematocrit 24.9 % (35.0-46.0); Hemoglobin 8.1 gm/dL (11.6-15.3); Mean Corpuscular HGB Conc 32.7 % (32.0-36.0); Mean Corpuscular Hemoglobin 26.1 pg (27.0-34.0); Mean Corpuscular Volume 79.8 fL (80.0-100.0); Mean Platelet Volume 8.6 fL (7.0-11.0); Platelet Count 175 th/mm3 (150-450); Red Blood Count 3.11 mil/mm3 (4.00-5.30); Red Cell Distribution Width 21.2 % (11.6-17.2); White Blood Count 31.3 th/mm3 (4.0-11.0)
[2017-10-05] MEDS: levoFLOXacin 750 MG Tablet PO SCH (08:14)
[2017-10-05] MEDS: Pantoprazole Sodium 20 MG DR Tablet PO SCH (08:14)
[2017-10-05] MEDS: traZODone 100 MG Tablet PO SCH (08:14)
[2017-10-05] MEDS: Duloxetine 60 MG DR Capsule PO SCH (08:14)
[2017-10-05 08:15] LABS: Anion Gap 9 meq/L (5-15); Blood Urea Nitrogen 6 mg/dL (7-18); Calcium 7.8 mg/dL (8.5-10.1); Chloride 108 meq/L (98-107); Glomerular Filtration Rate Greater Than 89 mL/min (>89); Glucose,Random 60 mg/dL (74-106); Potassium 3.3 meq/L (3.5-5.1); Sodium 140 meq/L (136-145)
[2017-10-05] MEDS: Heparin Central Flush 100 UNIT/ML 5 ML Vial IV.FLUSH SCH (08:16)
[2017-10-05] MEDS: dilTIAZem 60 MG Tablet PO SCH ×3 (08:25→17:49)
[2017-10-05] MEDS: Folic Acid Inj 1 MG/0.2 ML VIAL IM SCH (08:58)
--- NOTE | 2017-10-05 11:33 | P.PNWCN ---
Wound Care Nurse Consult Description: Follow up of wound care Communicated with: , Dr.Oglesby Fox RN Recommendation: BID and PRN: 1. Gently cleanse intertriginous areas on abdomen, thighs, and groin with mild soap and water or NS using soft cloths to pat dry. 2. Sprinkle Antifungal powder over open areas and wipe away excess. 3. [place] Cavilon skin barrier film over powdered areas to seal in powder creating a crust. 4. Apply ultrasorb moisture wicking pads provided in between the folds of skin and change BID and PRN when soiled. Additional information: [employer] Director was called by for reassessment of moisture denuded areas to pannus/groin skin folds.patient alert and oriented x4 sitting up recliner. and patient states wound care recommendation have not been being performed.Reassessment of wound health underwriter noted wound still moisture denuded partial thickness with scant serous exudate.Tender to touch no odor though white transparent biofilm forming.Area cleansed with warm soap and water rinsed and pat dry.Remedy Antifungal powder applied in even thin layer then sprayed with Cavilon skin prep repeated x2.Patient verbalized understanding of wound care and is confident in performing herself at home.2 bottles of Remedy antifungal powder left with patient as well as Cavilon spray skin prep. Wound/Pressure Injury - Patient Status Premedicated for Pain Prior to Dressing Change: No - Wound Perineal Wound Assessment: Ongoing Wound Type: Maceration Is This a Chronic Wound: Yes Requested from Provider a Wound Care Consult: Yes Length: 37 Width: 5 Wound Bed Appearance: Edematous, Necrotic, [place], White, Yellow Surrounding Tissue Appearance: Blanched/Dull, Bright Red, Erythema Surrounding Tissue Temperature: Hot Drainage Description: Serous Drainage Amount: None Drainage Odor: No Odor Dressing Status: Changed Cleansing Solution: Saline Topical: Medicated Ointment Primary Dressing: Absorbant Pad Wound Dressing Change Date: 09/28/17 Right Lower Groin Thigh Wound Assessment: Ongoing Wound Type: Maceration Is This a Chronic Wound: Yes Requested from Provider a Wound Care Consult: Yes Length: 37 Width: 4 Wound Bed Appearance: Edematous, Necrotic, [place], White, Yellow Surrounding Tissue Appearance: Blanched/Dull, Bright Red, Erythema Surrounding Tissue Temperature: Hot Drainage Description: Serous Drainage Amount: Moderate Drainage Odor: Slight Odor Dressing Status: Changed Cleansing Solution: Saline Topical: Medicated Ointment Primary Dressing: Absorbant Pad Cover Dressing: ultrasorb pad Wound Dressing Change Date: 09/28/17 Left Upper Groin Wound Assessment: Ongoing Wound Type: Maceration Is This a Chronic Wound: Yes Requested from Provider a Wound Care Consult: Yes Length: 26 Width: 5 Wound Bed Appearance: Edematous, [place], White, Yellow Surrounding Tissue Appearance: Blanched/Dull, Bright Red, Erythema Surrounding Tissue Temperature: Warm Drainage Amount: None Drainage Odor: Slight Odor Dressing Status: Changed Cleansing Solution: Saline Topical: Medicated Ointment Primary Dressing: Absorbant Pad Cover Dressing: ultasorb pads Wound Dressing Change Date: 10/03/17 Midline Groin Wound Assessment: Ongoing Wound Type: Maceration Is This a Chronic Wound: Yes Requested from Provider a Wound Care Consult: Yes Length: 1 Width: 1 Wound Bed Appearance: Edematous, [place], White, Yellow Surrounding Tissue Appearance: Blanched/Dull, Bright Red Surrounding Tissue Temperature: Warm Drainage Description: Serous Drainage Amount: Moderate Drainage Odor: Slight Odor Dressing Status: Changed Cleansing Solution: Saline Topical: Medicated Ointment Primary Dressing: Absorbant Pad Cover Dressing: Absorbant Pad Wound Dressing Change Date: 10/03/17 - Additional Information Abdominal folds and inner thighs visualized by health underwriter and noted to be full thickness skin loss related to moisture with no active drainage and no odor. Wound margins are jagged and irregular. Periwounds are unremarkable with no satellite lesions visualized. Recommend to gently cleanse with a mild soap or NORMAL SALINE BID and PRN for moisture. After patting dry, encrusting is encouraged and explained in the above recommendations. Moisture pads designed for these wounds were provided for patient and left at the bedside. Incision - Patient Status Premedicated for Pain Prior to Dressing Change: No
[2017-10-05] MEDS: Acetaminophen 325 MG Tablet PO PRN (17:51)
--- NOTE | 2017-10-05 19:32 | P.PNFP ---
Subjective Interval history: Patient was seen at bedside this morning. Overnight patient experienced some abdominal pain which was relieved with [place]. She also had some trouble sleeping and was given melatonin but according to the patient it did not work very well. Overall the patient says she feels fine and is very eager to leave and go home. Besides the abdominal pain which she describes as burning and stabbing she reports no other issues. It was also discussed with the patient that her will need to be trained in order to administer antibiotics at home. Patient denies any subjective fevers, chills, shortness of breath, chest pain, nausea, or vomiting. All questions were answered to the patient's satisfaction. <Yon Carney O - 10/05/17 21:12> Results - Labs Result diagrams: 10/05/17 06:40 10/05/17 06:40 <Maddy Jackson M - 10/06/17 14:14> Abnormal lab results 10/05/17 10/05/17 Range/Units 06:40 06:40 WBC 31.3 H (4.0-11.0) th/mm3 RBC 3.11 L (4.00-5.30) mil/mm3 Hgb 8.1 L D (11.6-15.3) gm/dL Hct 24.9 L (35.0-46.0) % MCV 79.8 L (80.0-100.0) fL MCH 26.1 L (27.0-34.0) pg RDW 21.2 H (11.6-17.2) % Potassium 3.3 L D (3.5-5.1) meq/L Chloride 108 H (98-107) meq/L BUN 6 L (7-18) mg/dL Random Glucose 60 L (74-106) mg/dL Calcium 7.8 L (8.5-10.1) mg/dL Short CBC 10/05/17 Range/Units 06:40 WBC 31.3 H (4.0-11.0) th/mm3 Hgb 8.1 L D (11.6-15.3) gm/dL Hct 24.9 L (35.0-46.0) % Plt Count 175 (150-450) th/mm3 BMP 10/05/17 06:40 Sodium 140 Potassium 3.3 L D Chloride 108 H Carbon Dioxide 23.0 BUN 6 L Creatinine 0.51 Calcium 7.8 L <Yon Carney O - 10/05/17 19:32> Physical Exam Vital signs: Vital Signs 10/05/17 16:00 10/05/17 19:20 10/05/17 22:37 Temperature 98.9 F 98 F Pulse Rate 120 H 125 H 118 H Respiratory Rate 12 18 Blood Pressure 134/66 109/60 Pulse Oximetry 96 95 10/06/17 00:00 10/06/17 04:00 10/06/17 05:13 Temperature 97.6 F 98.1 F Pulse Rate 128 H 129 H Respiratory Rate 18 18 16 Blood Pressure 126/66 123/68 Pulse Oximetry 67 L 98 10/06/17 05:58 10/06/17 07:00 10/06/17 08:00 Temperature 98.2 F Pulse Rate 123 H 123 H Respiratory Rate 18 14 Blood Pressure 131/75 Pulse Oximetry 98 10/06/17 12:00 Temperature 98.5 F Pulse Rate 128 H Respiratory Rate 18 Blood Pressure 117/63 Pulse Oximetry 96 Intake & Output 10/05/17 10/06/17 10/06/17 18:59 06:59 18:59 Intake Total 200 / 200 1100 / 1100 100 / 100 Balance 200 / 200 1100 / 1100 100 / 100 Weight 106.3 kg Intake: IV 200 / 200 1100 / 1100 100 / 100 NS Inj 1,000 ML @ 100 mls/hr IV 1000 / 1000 .CONT .Q10H [facility] Rx#:[id number] Maxipime Inj 2,000 MG In NS Inj 200 / 200 100 / 100 100 / 100 100 ML @ 200 mls/hr IV.SIG Q8H [facility] Rx#:[id number] Other: # Voids 4 Date of Last Bowel Movement 10/05/17 10/05/17 10/06/17 # Bowel Movements 1 <Maddy Jackson M - 10/06/17 14:14> Vital Signs 10/04/17 20:00 10/05/17 00:00 10/05/17 04:00 Temperature 98.2 F 97.8 F 98.2 F Pulse Rate 116 H 121 H 79 Respiratory Rate 18 18 18 Blood Pressure 105/58 L 142/71 H 138/92 H Pulse Oximetry 98 98 96 10/05/17 08:00 10/05/17 08:57 10/05/17 12:00 Temperature 97.2 F L 96.0 F L Pulse Rate 111 H 104 H 123 H Respiratory Rate 12 15 Blood Pressure 121/69 121/64 Pulse Oximetry 96 95 10/05/17 16:00 10/05/17 19:20 Temperature 98.9 F Pulse Rate 120 H 125 H Respiratory Rate 12 Blood Pressure 134/66 Pulse Oximetry 96 Intake & Output 10/05/17 10/05/17 10/06/17 06:59 18:59 06:59 Intake Total 200 / 200 100 / 100 Output Total 1999 Balance -1800 / -1800 100 / 100 Weight 106.3 kg Intake: IV 200 / 200 100 / 100 Maxipime Inj 2,000 MG In NS Inj 200 / 200 100 / 100 100 ML @ 200 mls/hr IV.SIG Q8H [facility] Rx#:[id number] Output: Urine 1999 Other: Date of Last Bowel Movement 10/04/17 10/05/17 # Bowel Movements 2 1 <Yon Carney [facility] 10/05/17 19:32> - Constitutional no acute distress, morbidly obese, cooperative <Yon Carney [facility] 10/05/17 19:32 > - Routine HEENT Exam Head: Present: normocephalic, atraumatic <Yon Carney [facility] 10/05/17 19:32> Eye: Present: EOMI <Yon Carney [facility] 10/05/17 19:32> ENT: Present: mucous membranes moist <Yon Carney [facility] 10/05/17 21:12> - Routine Respiratory Exam Present: CTA bilaterally. Absent: accessory muscle use, prolonged expiratory phase, rales, respiratory distress, rhonchi, stridor, wheezes, crackles < Yon Carney [facility] 10/05/17 19:32> - Routine Cardiovascular Exam Present: RRR, S1, S2. Absent: murmur, gallop, rubs <Yon Carney [facility] 10/05/17 19:32> - Routine Abdominal Exam Present: soft, normoactive bowel sounds, tenderness. Absent: distended < Yon Carney [facility] 10/05/17 19:32> Comments: Obese abdomen, nondistended, nontender to palpation. Patient has large transcutaneous infection under the pannus with some detectable order, sloughing , as well as new granulation tissue in the wound bed. <Yon Carney 10/05/17 19:32> - Routine Extremities Exam Present: pulses intact. Absent: cyanosis, clubbing, edema <Yon Carney 19:32> Comments: Patient continues to have significant dry skin on the anterior portion of her left leg below the knee. Her previous wound below the knee is no longer draining. <Yon Carney 10/05/17 19:32> - Routine Skin Exam Comments: Patient has previously ruptured bullous on the right forearm from what appears to be an allergic reaction to the tape. She has significant dry skin on the left leg anterior portion below the knee. <Yon Carney 10/05/17 19:32> - Routine Neurological Exam Present: oriented X3, CN II-XII intact, moving all extremities, vision grossly intact, hearing grossly intact, normal speech. Absent: sensory deficit, motor deficit, altered mental status, facial asymmetry <Yon Carney 10/05/17 19: 32> - Detailed Neurological Exam: Coma Scale Eye Opening: Spontaneous <Yon Carney 10/05/17 19:32> Verbal Response: Oriented <Yon Carney 10/05/17 19:32> Motor Response: Obey commands <Yon Carney 10/05/17 19:32> [place] Coma Scale Total: 15 <Yon Carney 10/05/17 21:12> - Routine Psychiatric Exam Present: normal affect, normal thought process, cooperative, good insight, good judgment. Absent: anxious, agitated <Yon Carney 10/05/17 19:32> - Urinary Catheter Management Indwelling Urethral Catheter Cath placed during this visit: no <Maddy Jackson 10/06/17 14:14> yes, but has since been removed by the nurse <Yon Carney 10/05/17 21:12> Reason for continuing: Decision to DC catheter <Yon Carney 10/05/17 19:32 > Insertion date: 09/27/17 <Yon Carney 10/05/17 19:32> Insertion time: 08:20 <Yon Carney Dimitri - 10/05/17 19:32> Removal date: 10/05/17 <Yon Carney Dimitri - 10/05/17 19:32> Removal time: 15:30 <Yon Carney Dimitri - 10/05/17 19:32> Assessment and Plan - Assessment (1) Cellulitis of knee, left Code(s): L03.116 - Cellulitis of left lower limb Status: Acute (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 - Infection and inflammatory reaction due to unspecified internal joint prosthesis, initial encounter Status: Suspected (3) Pneumonia Code(s): J18.9 - Pneumonia, unspecified organism Status: Resolved (4) Diarrhea Code(s): R19.7 - Diarrhea, unspecified Status: Acute (5) Schizophrenia Code(s): F20.9 - Schizophrenia, unspecified Status: Chronic (6) Hypertension Code(s): I10 - Essential (primary) hypertension Status: Acute (7) Fungal infection of skin of abdomen Code(s): B36.9 - Superficial mycosis, unspecified Status: Acute (8) Nutrition, metabolism, and development symptoms Code(s): R63.8 - Other symptoms and signs concerning food and fluid intake Status: Acute <RenettaMaddy M - 10/06/17 14:14> (1) Cellulitis of knee, left Code(s): L03.116 - Cellulitis of left lower limb Status: Acute Plan: Patient's states that there was drainage from the knee and infection for weeks before she presented to the hospital. She has taken approximately 2 weeks of p.o. Keflex 500 mg. Today there is no drainage, swelling/effusion, or pain in the left knee. Patient is able to ambulate without pain. Left Leg erythema and swelling has resolved. There is desquamation superficially in the anterior portion of the left lower leg below the knee. Patient received PICC line yesterday for outpatient antibiotic administration. Patient will be discharged home health and will administer antibiotics at home. Home health will also manage wound care. Per ID patient will need to take cefepime IV until November 08, Levaquin p.o. until November 08, and Diflucan p.o. until October 18. 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 She completed rehabilitation and was discharged home August 23. Patient recently treated with antibiotics for left leg infection. Patient was on approximately 2 weeks of po Keflex 500 mg. No drainage from wound was appreciated and erythema resolved. Per Ortho, examination of left knee shows no evidence of infection. - See plan above for left leg cellulitis (3) Neutropenia Code(s): D70.9 - Neutropenia, unspecified Status: Resolved Plan: Patient presented with new onset neutropenia with WBC of (0.9). Prior blood work reviewed and white blood cells were within normal limits. Neutropenia possibly due to sepsis, psychotic and/or RA medications or bone marrow malignancy. Patient also become thrombocytopenic with a platelet count of 59, likely caused by a combination of sepsis and current medication regimen. Heme/ Onc following. Per Heme/Onc rheumatologic medicines including methotrexate and the unknown biologic that she was taking have been held. Today patient continues to improve white count now 31.3 post Neupogen, H\H now 8.1\24.9, and platelet count now at 175. Results for heparin induced thrombocytopenia was negative. - Continue to monitor WBC (4) Pneumonia Code(s): J18.9 - Pneumonia, unspecified organism Status: Acute Plan: Patient found to have left lower lobe consolidation on chest CTA. On examination today mild atelectasis appreciated at lower bases bilaterally, more pronounced on left lower base. Today patient reports no shortness of breath or difficulty breathing. Physical examination all lung solares were clear to auscultation. She remains afebrile, satting 97% on room air, but was slightly tachycardic this morning at 111. Patient currently on Levaquin. -Continue to monitor vital signs -Continue incentive spirometry (5) Diarrhea Code(s): R19.7 - Diarrhea, unspecified Status: Acute Plan: On admission patient presented with 3-day history of diarrhea in the setting of recent antibiotics. All bowel regimens held. Patient C. difficile negative. -Diarrhea has improved and decreasing frequency. Patient had one episode of diarrhea yesterday, currently no diarrhea. Continue with probiotics. (6) Schizophrenia Code(s): F20.9 - Schizophrenia, unspecified Status: Chronic Plan: Patient with chronic history of schizophrenia. On admission patient presented with active hallucinations of seeing someone out to get her. On exam today patient was calm and cooperative. Denies suicidal ideation. AAOx3. Denied auditory or tactile hallucinations. Per Psychiatry continue with Abilify 30 mg for psychosis, okay to continue buspirone 30 mg, trazodone 100 mg and Cymbalta 60 mg, but hold anticholinergics to avoid more cognitive impairment. - Patient's mood is stable today - Follow Psych recommendations (7) Hypertension Code(s): I10 - Essential (primary) hypertension Status: Acute Plan: Patient with history of HTN on home diltiazem. Blood pressures have been stable at 120s-140s systolic. Blood pressure 121/69 this morning. - cardizem dose decreased to 60mg TID due to patient c/o of lightheadedness upon standing and working with physical therapy -continue to monitor (8) Fungal infection of skin of abdomen Code(s): B36.9 - Superficial mycosis, unspecified Status: Acute Plan: Presented on admission with what appears to be rash under the abdominal folds and groin area. Skin lesions is mildly tender but stable. No bleeding noted on exam, dressing in place c/d/i. Per ID recommendations discontinue nystatin ointment fluconazole po General surgery recommend patients for skin barrier and dressing change, no operative intervention indicated at this time follow wound care recs continue to monitor (9) Nutrition, metabolism, and development symptoms Code(s): R63.8 - Other symptoms and signs concerning food and fluid intake Status: Acute Plan: Fluids: 100mls/hr Electrolytes: Replete as needed Nutrition: cardiac diet, continue to monitor po intake, supplement with ensure DVT prophylaxis: SCDs <Yon Carney O - 10/05/17 19:40> - Assessment and Plan The exam, history, and the medical decision-making described in the above note were completed with the assistance of the resident physician. I reviewed and agree with the findings presented. I attest that I had a [id number] encounter with the patient on the same day, and personally performed and documented my assessment and findings in the medical record. She has gotten in for the first time today and was sitting in a chair. She is very deconditioned. Her blood pressures are a little bit low. Consideration will be given to adjusting her medications and a rehab facility will be investigated for her. <Yon Carney - 10/05/17 19:32> - Attending Attestation The exam, history, and the medical decision-making described in the above note were completed with the assistance of the resident physician. I reviewed and agree with the findings presented. I attest that I had a [id number] encounter with the patient on the same day, and personally performed and documented my assessment and findings in the medical record. she does not have any medicare days at this time <Maddy Jackson M - 10/06/17 14:14> <Yon Carney O - Last Filed: 10/05/17 19:40> (3) Neutropenia Qualifiers: Neutropenia type: unspecified Qualified Code(s): D70.9 - Neutropenia, unspecified (4) Pneumonia Qualifiers: Pneumonia type: due to unspecified organism Laterality: left Lung location: lower lobe of lung Qualified Code(s): J18.1 - Lobar pneumonia, unspecified organism (7) Hypertension Qualifiers: Hypertension type: essential hypertension Qualified Code(s): I10 - Essential (primary) hypertension <Maddy Jackson M - Last Filed: 10/06/17 14:14> (3) Pneumonia Qualifiers: Pneumonia type: due to unspecified organism Laterality: left Lung location: lower lobe of lung Qualified Code(s): J18.1 - Lobar pneumonia, unspecified organism (6) Hypertension Qualifiers: Hypertension type: essential hypertension Qualified Code(s): I10 - Essential (primary) hypertension <Yon Carney - Last Filed: 10/05/17 19:40> (3) Neutropenia Qualifiers: Neutropenia type: unspecified Qualified Code(s): D70.9 - Neutropenia, unspecified (4) Pneumonia Qualifiers: Pneumonia type: due to unspecified organism Laterality: left Lung location: lower lobe of lung Qualified Code(s): J18.1 - Lobar pneumonia, unspecified organism (7) Hypertension Qualifiers: Hypertension type: essential hypertension Qualified Code(s): I10 - Essential (primary) hypertension <Maddy Jackson M - Last Filed: 10/06/17 14:14> (3) Pneumonia Qualifiers: Pneumonia type: due to unspecified organism Laterality: left Lung location: lower lobe of lung Qualified Code(s): J18.1 - Lobar pneumonia, unspecified organism (6) Hypertension Qualifiers: Hypertension type: essential hypertension Qualified Code(s): I10 - Essential (primary) hypertension
[2017-10-06] MEDS: Acetaminophen 325 MG Tablet PO PRN ×2 (03:35→10:54)
[2017-10-06] MEDS: Sod Chloride 0.9% Inj 1,000 ML IV.CONT SCH ×3 (06:18→18:26)
[2017-10-06] MEDS: Duloxetine 60 MG DR Capsule PO SCH (08:51)
[2017-10-06] MEDS: traZODone 100 MG Tablet PO SCH (08:52)
[2017-10-06] MEDS: Pantoprazole Sodium 20 MG DR Tablet PO SCH (08:52)
[2017-10-06] MEDS: dilTIAZem 60 MG Tablet PO SCH ×3 (08:52→17:52)
[2017-10-06] MEDS: levoFLOXacin 750 MG Tablet PO SCH (08:52)
[2017-10-06] MEDS: Heparin Central Flush 100 UNIT/ML 5 ML Vial IV.FLUSH SCH (08:53)
[2017-10-06] MEDS: Folic Acid Inj 1 MG/0.2 ML VIAL IM SCH (08:53)
--- NOTE | 2017-10-06 09:02 | P.DCO ---
- Physical Therapy Order: Evaluate and treat, Improve ambulation, Strength and gait training - Home Health Nursing Order: Medical education, Signs/symptoms of disease process, Medication education-adverse effect, Wound care and dressing changes, Nursing assessment with vital signs, IV medication administration Instructions: Wound Care BID and PRN: 1. Gently cleanse intertriginous areas on abdomen, thighs, and groin with mild soap and water or NS using soft cloths to pat dry. 2. Sprinkle Antifungal powder over open areas and wipe away excess. 3. [place] Cav[place] skin barrier film over powdered areas to seal in powder creating a crust. 4. Apply ultrasorb moisture wicking pads provided in between the folds of skin and change BID and PRN when soiled. - Home Health Aide Order: To assist in: Bathing and personal care, lumber material handler and meal prep - Certification I have seen patient Maryanne Mcclain on 10/06/17. My clinical findings support the need for the requested home health care services because: Limited mobility due to disease progression, Deconditioned with increased weakness, Medication compliance is questionable, Limited ability to care for self, Need for psychosocial assistance, Impaired cognition/judgement, High risk of falls, Infection with risk of complications, Injectable medication education/ administration I certify that my clinical findings support that this patient is homebound because: Unsteady gait/balance, Unsafe to leave home unassisted, Need for psychosocial assistance, Non-ambulatory: confined to bed or chair
--- NOTE | 2017-10-06 13:27 | P.PNFP ---
Subjective Interval history: Patient seen and examined at bedside this morning. Patient tachycardic overnight in the 120s asymptomatic otherwise. She reports she is ready to go home. Patient reports she has had 2 episodes of diarrhea this morning. <Nikole Washington D - 10/06/17 13:27> Results - Labs Result diagrams: 10/05/17 06:40 10/05/17 06:40 <RenettaMaurisioMaddy M - 10/06/17 14:15> Physical Exam Vital signs: Vital Signs 10/05/17 16:00 10/05/17 19:20 10/05/17 22:37 Temperature 98.9 F 98 F Pulse Rate 120 H 125 H 118 H Respiratory Rate 12 18 Blood Pressure 134/66 109/60 Pulse Oximetry 96 95 10/06/17 00:00 10/06/17 04:00 10/06/17 05:13 Temperature 97.6 F 98.1 F Pulse Rate 128 H 129 H Respiratory Rate 18 18 16 Blood Pressure 126/66 123/68 Pulse Oximetry 67 L 98 10/06/17 05:58 10/06/17 07:00 10/06/17 08:00 Temperature 98.2 F Pulse Rate 123 H 123 H Respiratory Rate 18 14 Blood Pressure 131/75 Pulse Oximetry 98 10/06/17 12:00 Temperature 98.5 F Pulse Rate 128 H Respiratory Rate 18 Blood Pressure 117/63 Pulse Oximetry 96 Intake & Output 10/05/17 10/06/17 10/06/17 18:59 06:59 18:59 Intake Total 200 / 200 1100 / 1100 100 / 100 Balance 200 / 200 1100 / 1100 100 / 100 Weight 106.3 kg Intake: IV 200 / 200 1100 / 1100 100 / 100 NS Inj 1,000 ML @ 100 mls/hr IV 1000 / 1000 .CONT .Q10H [facility] Rx#:[id number] Maxipime Inj 2,000 MG In NS Inj 200 / 200 100 / 100 100 / 100 100 ML @ 200 mls/hr IV.SIG Q8H [facility] Rx#:[id number] Other: # Voids 4 Date of Last Bowel Movement 10/05/17 10/05/17 10/06/17 # Bowel Movements 1 <RenettaMaurisioMaddy M - 10/06/17 14:15> Vital Signs 10/05/17 16:00 10/05/17 19:20 10/05/17 22:37 Temperature 98.9 F 98 F Pulse Rate 120 H 125 H 118 H Respiratory Rate 12 18 Blood Pressure 134/66 109/60 Pulse Oximetry 96 95 10/06/17 00:00 10/06/17 04:00 10/06/17 05:13 Temperature 97.6 F 98.1 F Pulse Rate 128 H 129 H Respiratory Rate 18 18 16 Blood Pressure 126/66 123/68 Pulse Oximetry 67 L 98 10/06/17 05:58 10/06/17 07:00 10/06/17 08:00 Temperature 98.2 F Pulse Rate 123 H 123 H Respiratory Rate 18 14 Blood Pressure 131/75 Pulse Oximetry 98 10/06/17 12:00 Temperature 98.5 F Pulse Rate 128 H Respiratory Rate 18 Blood Pressure 117/63 Pulse Oximetry 96 Intake & Output 10/05/17 10/06/17 10/06/17 18:59 06:59 18:59 Intake Total 200 / 200 1100 / 1100 100 / 100 Balance 200 / 200 1100 / 1100 100 / 100 Weight 106.3 kg Intake: IV 200 / 200 1100 / 1100 100 / 100 NS Inj 1,000 ML @ 100 mls/hr IV 1000 / 1000 .CONT .Q10H [facility] Rx#:[id number] Maxipime Inj 2,000 MG In NS Inj 200 / 200 100 / 100 100 / 100 100 ML @ 200 mls/hr IV.SIG Q8H [facility] Rx#:[id number] Other: # Voids 4 Date of Last Bowel Movement 10/05/17 10/05/17 10/06/17 # Bowel Movements 1 <Calluis antoniodoLucieNikole D - 10/06/17 13:27> - Constitutional no acute distress <CalzadoNikole D - 10/06/17 13:27> - Routine HEENT Exam Head: Present: normocephalic <CalzadoNikole D 10/06/17 13:27> Eye: Present: EOMI, PERRL <CalzadoNikole D 10/06/17 13:27> ENT: Present: mucous membranes moist <CalzadoNikole D - 10/06/17 13:27> - Routine Neck Exam Present: supple, full ROM. Absent: JVD <Calluis antoniodoNikole D - 10/06/17 13:27> - Routine Respiratory Exam Present: CTA bilaterally. Absent: accessory muscle use <Nikole [place] 13:27> - Routine Cardiovascular Exam Present: RRR, S1, S2. Absent: murmur, gallop, rubs <Nikole [facility] 13:27> - Routine Abdominal Exam Present: soft, normoactive bowel sounds, tenderness (mild tenderness along abdominal folds) <Nikole [facility] 10/06/17 13:27> - Routine Extremities Exam Present: full ROM, pulses intact, normal capillary refill. Absent: cyanosis, clubbing, edema, calf tenderness <Nikole [facility] 10/06/17 13:27> Comments: mild tenderness along medial aspect of left knee, no erythema or swelling. Patient is able to bend Left knee with no issues. <Nikole [facility] 10/06/17 13:27> - Routine Skin Exam Present: wounds (abdominal wound stable) <FelixNikole Lewis 10/06/17 13:27> - Routine Neurological Exam Present: alert (AAoX2) <FelixNikole Lewis 10/06/17 13:27> - Routine Psychiatric Exam Present: normal affect, normal thought process. Absent: suicidal ideation, homicidal ideation, auditory hallucinations, visual hallucinations, tactile hallucinations <FelixNikole Lewis 10/06/17 13:27> - Urinary Catheter Management Indwelling Urethral Catheter Cath placed during this visit: no <Maddy Jackson - 10/06/17 14:15> yes, but has since been removed by the nurse <KendrickNikole cabral 10/06/17 13:27> Reason for continuing: Decision to DC catheter <KendrickNikole cabral 10/06/17 13: 27> Insertion date: 09/27/17 <Nikole [place] 10/06/17 13:27> Insertion time: 08:20 <Nikole [facility] 10/06/17 13:27> Removal date: 10/05/17 <Nikole [facility] 10/06/17 13:27> Removal time: 17:30 <Nikole [facility] 10/06/17 13:27> Assessment and Plan - Assessment (1) Cellulitis of knee, left Code(s): L03.116 - Cellulitis of left lower limb Status: Acute (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 - Infection and inflammatory reaction due to unspecified internal joint prosthesis, initial encounter Status: Suspected (3) Pneumonia Code(s): J18.9 - Pneumonia, unspecified organism Status: Resolved (4) Diarrhea Code(s): R19.7 - Diarrhea, unspecified Status: Acute (5) Schizophrenia Code(s): F20.9 - Schizophrenia, unspecified Status: Chronic (6) Hypertension Code(s): I10 - Essential (primary) hypertension Status: Acute (7) Fungal infection of skin of abdomen Code(s): B36.9 - Superficial mycosis, unspecified Status: Acute (8) Nutrition, metabolism, and development symptoms Code(s): R63.8 - Other symptoms and signs concerning food and fluid intake Status: Acute <Maddy Jacskon - 10/06/17 14:15> (1) Cellulitis of knee, left Code(s): L03.116 - Cellulitis of left lower limb Status: Acute Plan: On admission, patient's reported that there was drainage from the knee and infection for weeks before she presented to the hospital. She has taken approximately 2 weeks of p.o. Keflex 500 mg. Today there is no drainage, swelling/effusion, or pain in the left knee. Patient is able to ambulate without pain. Left Leg erythema and swelling has resolved. Patient received PICC line for outpatient antibiotic administration. Patient will be discharged with home health and will administer antibiotics at home. Home health will also manage wound care. Per ID patient will need to take cefepime IV until November 08, Levaquin p.o. until November 08, and Diflucan p.o. until October 18. 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 She completed rehabilitation and was discharged home August 23. Patient recently treated with antibiotics for left leg infection. Patient was on approximately 2 weeks of po Keflex 500 mg. No drainage from wound was appreciated and erythema resolved. Per Ortho, examination of left knee shows no evidence of infection. - See plan above for left leg cellulitis (3) Pneumonia Code(s): J18.9 - Pneumonia, unspecified organism Status: Resolved Plan: Patient found to have left lower lobe consolidation on chest CTA. On examination today mild atelectasis appreciated at lower bases bilaterally, more pronounced on left lower base. Today patient reports no shortness of breath or difficulty breathing. Physical examination all lung solares were clear to auscultation. She remains afebrile, with O2 sat WNL on room air. Patient currently on Levaquin. -Continue to monitor vital signs -Continue incentive spirometry (4) Diarrhea Code(s): R19.7 - Diarrhea, unspecified Status: Acute Plan: On admission patient presented with 3-day history of diarrhea in the setting of recent antibiotics. All bowel regimens held. Patient C. difficile negative. -Diarrhea has improved and decreasing frequency. Patient had 3 episodes of diarrhea today. Continue with probiotics. (5) Schizophrenia Code(s): F20.9 - Schizophrenia, unspecified Status: Chronic Plan: Patient with chronic history of schizophrenia. On admission patient presented with active hallucinations of seeing someone out to get her. On exam today patient was calm and cooperative. Denies suicidal ideation. AAOx3. Denied auditory or tactile hallucinations. Per Psychiatry continue with Abilify 30 mg for psychosis, okay to continue buspirone 30 mg, trazodone 100 mg and Cymbalta 60 mg, but hold anticholinergics to avoid more cognitive impairment. - Patient's mood is stable today - Follow Psych recommendations (6) Hypertension Code(s): I10 - Essential (primary) hypertension Status: Acute Plan: Patient with history of HTN on home diltiazem. Blood pressures have been stable at 120s-140s systolic. Blood pressure 131/75 this morning. - cardizem dose decreased to 60mg TID due prior to c/o of lightheadedness upon standing and working with physical therapy -continue to monitor (7) Fungal infection of skin of abdomen Code(s): B36.9 - Superficial mycosis, unspecified Status: Acute Plan: Presented on admission with what appears to be rash under the abdominal folds and groin area. Skin lesions is mildly tender but stable. No bleeding noted on exam, dressing in place c/d/i. Per ID recommendations discontinue nystatin ointment fluconazole po General surgery recommend patients for skin barrier and dressing change, no operative intervention indicated at this time follow wound care recs continue to monitor (8) Nutrition, metabolism, and development symptoms Code(s): R63.8 - Other symptoms and signs concerning food and fluid intake Status: Acute Plan: Fluids: 100mls/hr Electrolytes: Replete as needed Nutrition: cardiac diet, continue to monitor po intake, supplement with ensure DVT prophylaxis: SCDs <Nikole Washington D - 10/06/17 13:13> - Assessment and Plan The exam, history, and the medical decision-making described in the above note were completed with the assistance of the resident physician. I reviewed and agree with the findings presented. I attest that I had a [id number] encounter with the patient on the same day, and personally performed and documented my assessment and findings in the medical record. She has gotten in for the first time today and was sitting in a chair. She is very deconditioned. Her blood pressures are a little bit low. Consideration will be given to adjusting her medications and a rehab facility will be investigated for her. <Nikole Washington D - 10/06/17 13:27> - Attending Attestation The exam, history, and the medical decision-making described in the above note were completed with the assistance of the resident physician. I reviewed and agree with the findings presented. I attest that I had a [id number] encounter with the patient on the same day, and personally performed and documented my assessment and findings in the medical record. all the complicated pieces of [facility], her helping, the abx etc should be in place for D/C <Maddy Jackson M - 10/06/17 14:15> <CalzadoNikole D - Last Filed: 10/06/17 13:13> (3) Pneumonia Qualifiers: Pneumonia type: due to unspecified organism Laterality: left Lung location: lower lobe of lung Qualified Code(s): J18.1 - Lobar pneumonia, unspecified organism (6) Hypertension Qualifiers: Hypertension type: essential hypertension Qualified Code(s): I10 - Essential (primary) hypertension <Maddy Jackson - Last Filed: 10/06/17 14:15> (3) Pneumonia Qualifiers: Pneumonia type: due to unspecified organism Laterality: left Lung location: lower lobe of lung Qualified Code(s): J18.1 - Lobar pneumonia, unspecified organism (6) Hypertension Qualifiers: Hypertension type: essential hypertension Qualified Code(s): I10 - Essential (primary) hypertension <Calzado,Nikole D - Last Filed: 10/06/17 13:13> (3) Pneumonia Qualifiers: Pneumonia type: due to unspecified organism Laterality: left Lung location: lower lobe of lung Qualified Code(s): J18.1 - Lobar pneumonia, unspecified organism (6) Hypertension Qualifiers: Hypertension type: essential hypertension Qualified Code(s): I10 - Essential (primary) hypertension <Maddy Jackson - Last Filed: 10/06/17 14:15> (3) Pneumonia Qualifiers: Pneumonia type: due to unspecified organism Laterality: left Lung location: lower lobe of lung Qualified Code(s): J18.1 - Lobar pneumonia, unspecified organism (6) Hypertension Qualifiers: Hypertension type: essential hypertension Qualified Code(s): I10 - Essential (primary) hypertension
--- NOTE | 2017-10-06 14:27 | P.PNADD ---
Addendum to Inpatient Note Reason for Addendum: Additional Documentation Additional information: Patient prescribed Wheeler (5-325mg) every 4-6 as needed for pain 6-10 for the next three days. Prescription was given for ACUTE PAIN due to her being off her rheumatoid arthritis medications due to her infection. [facility] was consulted and showed no suspicious activity. Prescription was printed for patient.
[2017-10-07] MEDS: Sod Chloride 0.9% Inj 1,000 ML IV.CONT SCH ×3 (01:44→23:58)
[2017-10-07] MEDS: levoFLOXacin 750 MG Tablet PO SCH (08:20)
[2017-10-07] MEDS: traZODone 100 MG Tablet PO SCH (08:20)
[2017-10-07] MEDS: Pantoprazole Sodium 20 MG DR Tablet PO SCH (08:20)
[2017-10-07] MEDS: dilTIAZem 60 MG Tablet PO SCH ×3 (08:20→18:14)
[2017-10-07] MEDS: Folic Acid 1 MG Tablet PO SCH (08:23)
[2017-10-07] MEDS: Heparin Central Flush 100 UNIT/ML 5 ML Vial IV.FLUSH SCH (08:23)
[2017-10-07] MEDS: Duloxetine 60 MG DR Capsule PO SCH (08:23)
--- NOTE | 2017-10-07 08:52 | P.PNFP ---
Subjective Interval history: Patient was seen at bedside this morning. There were no acute events overnight. Patient continues to report pain under the pannus where she currently has a transcutaneous wound, she is also experiencing the same wound and pain near the perineum and anus. She denies any leg or knee pain at this time. Patient denies any subjective fevers, chills, shortness of breath, chest pain, nausea, or vomiting. All questions were answered to the patient's satisfaction. <Yon Carney O - 10/07/17 15:01> Results - Labs Result diagrams: 10/11/17 04:00 10/11/17 04:00 <Maddy Jackson - 10/11/17 14:45> Abnormal lab results 10/11/17 10/11/17 Range/Units 04:00 04:00 WBC 22.4 H (4.0-11.0) th/mm3 RBC 3.10 L (4.00-5.30) mil/mm3 Hgb 8.6 L (11.6-15.3) gm/dL Hct 25.2 L (35.0-46.0) % RDW 19.3 H (11.6-17.2) % Chloride 113 H (98-107) meq/L BUN 6 L (7-18) mg/dL Creatinine 0.48 L (0.50-1.00) mg/dL Random Glucose 69 L (74-106) mg/dL Calcium 7.2 L* (8.5-10.1) mg/dL Total Protein 4.3 L (6.4-8.2) g/dL Short CBC 10/11/17 Range/Units 04:00 WBC 22.4 H (4.0-11.0) th/mm3 Hgb 8.6 L (11.6-15.3) gm/dL Hct 25.2 L (35.0-46.0) % Plt Count 294 (150-450) th/mm3 BMP 10/11/17 04:00 Sodium 142 Potassium 4.5 Chloride 113 H Carbon Dioxide 23.3 BUN 6 L Creatinine 0.48 L Calcium 7.2 L* <Maddy Jackson - 10/11/17 14:45> Physical Exam Vital signs: Vital Signs 10/10/17 17:00 10/10/17 20:00 10/10/17 21:00 Temperature 98.4 F Pulse Rate 101 H 118 H 107 H Respiratory Rate 20 Blood Pressure 166/78 H Pulse Oximetry 98 10/11/17 00:00 10/11/17 01:00 10/11/17 04:00 Temperature 97.5 F L 97.2 F L Pulse Rate 126 H 103 H 126 H Respiratory Rate 20 18 Blood Pressure 109/77 95/49 L Pulse Oximetry 96 96 10/11/17 04:01 10/11/17 08:42 10/11/17 09:00 Temperature 97.7 F Pulse Rate 120 H 105 H Respiratory Rate 17 16 Blood Pressure 146/97 H Pulse Oximetry 100 10/11/17 12:49 10/11/17 13:00 Temperature 97.9 F Pulse Rate 120 H 109 H Respiratory Rate 18 Blood Pressure 111/68 Pulse Oximetry 96 Intake & Output 10/10/17 10/11/17 10/11/17 18:59 06:59 18:59 Intake Total 1979 / 1979 1580 / 1580 440 / 440 Output Total 700 / 700 1160 / 1160 650 / 650 Balance 1280 / 1280 420 / 420 -210 / -210 Weight 122.1 kg Intake: IV 1100 / 1100 100 / 100 200 / 200 NS Inj 1,000 ML @ 100 mls/hr IV 1000 / 1000 .CONT .Q10H [facility] Rx#:[id number] Maxipime Inj 2,000 MG In NS Inj 100 / 100 100 / 100 200 / 200 100 ML @ 200 mls/hr IV.SIG Q8H [facility] Rx#:[id number] Oral 880 / 880 880 / 880 240 / 240 Anesthesia Amount 600 / 600 Output: Urine 700 / 700 700 / 700 650 / 650 Stool 400 / 400 Estimated Blood Loss 60 / 60 Other: # Voids 2 # Incontinent Voids 1 Date of Last Bowel Movement 10/09/17 10/09/17 # Bowel Movements 1 1 # Incontinent Bowel Movements 2 # Emeses 1 <Maddy Jackson M - 10/11/17 14:45> Vital Signs 10/06/17 12:00 10/06/17 16:00 10/06/17 20:00 Temperature 98.5 F 97.9 F 98.1 F Pulse Rate 128 H 122 H 117 H Respiratory Rate 18 12 16 Blood Pressure 117/63 116/59 L 124/58 L Pulse Oximetry 96 97 96 10/07/17 00:00 10/07/17 04:00 Temperature 97.6 F 98 F Pulse Rate 109 H 107 H Respiratory Rate 16 16 Blood Pressure 123/63 120/65 Pulse Oximetry 96 96 Intake & Output 10/06/17 10/07/17 10/07/17 18:59 06:59 18:59 Intake Total 200 / 200 200 / 200 Balance 200 / 200 200 / 200 Weight 107.6 kg Intake: IV 200 / 200 200 / 200 Maxipime Inj 2,000 MG In NS Inj 200 / 200 200 / 200 100 ML @ 200 mls/hr IV.SIG Q8H [facility] Rx#:[id number] Other: # Voids 1 Date of Last Bowel Movement 10/06/17 10/07/17 <Yon Carney 10/07/17 08:52> - Constitutional no acute distress, morbidly obese <Yon Carney 10/07/17 15:01> - Routine HEENT Exam Head: Present: normocephalic, atraumatic <CarneyYon Mosley 10/07/17 15:01> Eye: Present: EOMI <Yon Carney 10/07/17 15:01> ENT: Present: mucous membranes moist <Yon Carney 10/07/17 15:01> - Routine Respiratory Exam Present: CTA bilaterally. Absent: accessory muscle use, prolonged expiratory phase, rales, respiratory distress, rhonchi, stridor, wheezes, crackles, distant breath sounds <CarneyYon Mosley 10/07/17 15:01> - Routine Cardiovascular Exam Present: RRR, S1, S2. Absent: murmur, gallop, rubs <CarneyYon Mosley 10/07/17 15:01> - Routine Abdominal Exam Present: soft, normoactive bowel sounds, tenderness, wound. Absent: rebound, guarding <AngelikaYon Dimitri 10/07/17 15:01> Comments: Patient has a transcutaneous wound spanning entirety of the area under her pannus. Wound has slightly ordered and appears to be sloughing of skin. There is also a bit of granulation tissue on the edges of the wound. The edges are irregular in shape. The wound is now spanning from under the pannus to the perineum and just proximal to the anus. <Yon Carney 10/07/17 15:01> - Routine Skin Exam Absent: intact <Yon Carney 10/07/17 15:01> Comments: See description of abdominal wound above. <Yon Carney 10/07/17 15:01> - Routine Neurological Exam Present: alert, oriented X3, moving all extremities, vision grossly intact, hearing grossly intact, normal speech. Absent: altered mental status, facial asymmetry <Yon Carney 10/07/17 15:01> - Detailed Neurological Exam: Coma Scale Eye Opening: Spontaneous <Yon Carney 10/07/17 15:01> Verbal Response: Oriented <Yon Carney 10/07/17 15:01> Motor Response: Obey commands <Yon Carney 10/07/17 15:01> Bevier Coma Scale Total: 15 <Yon Carney 10/07/17 15:01> - Routine Psychiatric Exam Present: normal affect, normal thought process, cooperative, good insight, good judgment <Yon Carney 10/07/17 15:01> - Urinary Catheter Management Indwelling Urethral Catheter Cath placed during this visit: no <Maddy Jackson - 10/11/17 14:45> yes, but has since been removed by the nurse <Yon Carney 10/07/17 15:01> Reason for continuing: Decision to DC catheter <Yon Carney Dimitri 10/07/17 08:52 > Insertion date: 09/27/17 <CarneyYon Dimitri 10/07/17 08:52> Insertion time: 08:20 <CarneyYon Dimitri 10/07/17 08:52> Removal date: 10/05/17 <Carney,Yon Dimitri 10/07/17 08:52> Removal time: 17:30 <Carney,Yon Dimitri 10/07/17 08:52> Assessment and Plan - Assessment (1) Fungal infection of skin of abdomen Code(s): B36.9 - Superficial mycosis, unspecified Status: Acute (2) Cellulitis of knee, left Code(s): L03.116 - Cellulitis of left lower limb Status: Acute (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 - Infection and inflammatory reaction due to unspecified internal joint prosthesis, initial encounter Status: Suspected (4) Pneumonia Code(s): J18.9 - Pneumonia, unspecified organism Status: Resolved (5) Diarrhea Code(s): R19.7 - Diarrhea, unspecified Status: Resolved (6) Schizophrenia Code(s): F20.9 - Schizophrenia, unspecified Status: Chronic (7) Hypertension Code(s): I10 - Essential (primary) hypertension Status: Acute (8) Nutrition, metabolism, and development symptoms Code(s): R63.8 - Other symptoms and signs concerning food and fluid intake Status: Acute <Maddy Jackson - 10/11/17 14:45> (1) Fungal infection of skin of abdomen Code(s): B36.9 - Superficial mycosis, unspecified Status: Acute Plan: Presented on admission with what appears to be transcutaneous rash under the abdominal folds and groin area. Skin wound now in better perineum just proximal to the anus. Wound care on board recommending gentle cleansing of the area with mild soap and water or normal saline and use soft cloths to pat dry, sprinkle antifungal powder over open areas and wipe the excess away, spray Cavilon skin barrier over the powdered area to create a crust, and apply ultra absorbing moisture with wickening pads between the folds of the skin and change twice a day as well as when soiled. Dr. Schneider from general surgery was called today by myself for recommendation on possible debridement of the area. -Follow-up with general surgery about possible debridement -Follow wound care recommendations as stated above -Continue current course of antibiotics (2) Cellulitis of knee, left Code(s): L03.116 - Cellulitis of left lower limb Status: Acute Plan: On admission, patient's reported that there was drainage from the knee and infection for weeks before she presented to the hospital. She has taken approximately 2 weeks of p.o. Keflex 500 mg. Today there is no drainage, swelling/effusion, or pain in the left knee. Patient is able to ambulate without pain. Left Leg erythema and swelling has resolved. Patient received PICC line for outpatient antibiotic administration. Per ID patient will need to take cefepime IV until November 08, Levaquin p.o. until November 08, and Diflucan p.o. until October 18. At this time patient will continue treatment inpatient for abdominal wound. When discharged home patient will have home health who will manage wound care. Patient also follow-up outpatient with wound care. -Continue current course of antibiotics and discharged home. 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 She completed rehabilitation and was discharged home August 23. Patient recently treated with antibiotics for left leg infection. Patient was on approximately 2 weeks of po Keflex 500 mg. No drainage from wound was appreciated and erythema resolved. Per Ortho, examination of left knee shows no evidence of infection. - See plan above for left leg cellulitis (4) Pneumonia Code(s): J18.9 - Pneumonia, unspecified organism Status: Resolved Plan: Patient found to have left lower lobe consolidation on chest CTA. On examination today mild atelectasis appreciated at lower bases bilaterally, more pronounced on left lower base. Today patient reports no shortness of breath or difficulty breathing. Physical examination all lung solares were clear to auscultation. She remains afebrile, with O2 sat WNL on room air. Patient currently on Levaquin. -Continue to monitor vital signs -Continue incentive spirometry (5) Diarrhea Code(s): R19.7 - Diarrhea, unspecified Status: Resolved Plan: On admission patient presented with 3-day history of diarrhea in the setting of recent antibiotics. All bowel regimens held. Patient C. difficile negative. -Diarrhea has improved and decreasing frequency. Patient had 3 episodes of diarrhea today. Continue with probiotics. (6) Schizophrenia Code(s): F20.9 - Schizophrenia, unspecified Status: Chronic Plan: Patient with chronic history of schizophrenia. On admission patient presented with active hallucinations of seeing someone out to get her. On exam today patient was calm and cooperative. Denies suicidal ideation. AAOx3. Denied auditory or tactile hallucinations. Per Psychiatry continue with Abilify 30 mg for psychosis, okay to continue buspirone 30 mg, trazodone 100 mg and Cymbalta 60 mg, but hold anticholinergics to avoid more cognitive impairment. - Patient's mood is stable today - Follow Psych recommendations (7) Hypertension Code(s): I10 - Essential (primary) hypertension Status: Acute Plan: Patient with history of HTN on home diltiazem. Blood pressures have been stable at 120s-140s systolic. Blood pressure 121/66 this morning. - cardizem dose decreased to 60mg TID due prior to c/o of lightheadedness upon standing and working with physical therapy -continue to monitor (8) Nutrition, metabolism, and development symptoms Code(s): R63.8 - Other symptoms and signs concerning food and fluid intake Status: Acute Plan: Fluids: 100mls/hr Electrolytes: Replete as needed Nutrition: cardiac diet, continue to monitor po intake, supplement with ensure DVT prophylaxis: SCDs <Yon Carney Dimitri - 10/07/17 14:33> - Assessment and Plan The exam, history, and the medical decision-making described in the above note were completed with the assistance of the resident physician. I reviewed and agree with the findings presented. I attest that I had a [id number] encounter with the patient on the same day, and personally performed and documented my assessment and findings in the medical record. She has gotten in for the first time today and was sitting in a chair. She is very deconditioned. Her blood pressures are a little bit low. Consideration will be given to adjusting her medications and a rehab facility will be investigated for her. <Yon Carney Dimitri - 10/07/17 08:52> - Attending Attestation The exam, history, and the medical decision-making described in the above note were completed with the assistance of the resident physician. I reviewed and agree with the findings presented. I attest that I had a [id number] encounter with the patient on the same day, and personally performed and documented my assessment and findings in the medical record. she unfortunately does not qualify for any rehab with her medicare as she was in a rehab in July <Maddy Jackson M - 10/11/17 14:45> <CarneyYon ritter O - Last Filed: 10/07/17 14:33> (4) Pneumonia Qualifiers: Pneumonia type: due to unspecified organism Laterality: left Lung location: lower lobe of lung Qualified Code(s): J18.1 - Lobar pneumonia, unspecified organism (7) Hypertension Qualifiers: Hypertension type: essential hypertension Qualified Code(s): I10 - Essential (primary) hypertension <Maddy Jackson M - Last Filed: 10/11/17 14:45> (4) Pneumonia Qualifiers: Pneumonia type: due to unspecified organism Laterality: left Lung location: lower lobe of lung Qualified Code(s): J18.1 - Lobar pneumonia, unspecified organism (7) Hypertension Qualifiers: Hypertension type: essential hypertension Qualified Code(s): I10 - Essential (primary) hypertension <Yon Carney O - Last Filed: 10/07/17 14:33> (4) Pneumonia Qualifiers: Pneumonia type: due to unspecified organism Laterality: left Lung location: lower lobe of lung Qualified Code(s): J18.1 - Lobar pneumonia, unspecified organism (7) Hypertension Qualifiers: Hypertension type: essential hypertension Qualified Code(s): I10 - Essential (primary) hypertension <Maddy Jackson M - Last Filed: 10/11/17 14:45> (4) Pneumonia Qualifiers: Pneumonia type: due to unspecified organism Laterality: left Lung location: lower lobe of lung Qualified Code(s): J18.1 - Lobar pneumonia, unspecified organism (7) Hypertension Qualifiers: Hypertension type: essential hypertension Qualified Code(s): I10 - Essential (primary) hypertension
[2017-10-07 12:18] LABS: Hematocrit 26.7 % (35.0-46.0); Hemoglobin 8.8 gm/dL (11.6-15.3); Mean Corpuscular HGB Conc 32.8 % (32.0-36.0); Mean Corpuscular Hemoglobin 26.7 pg (27.0-34.0); Mean Corpuscular Volume 81.3 fL (80.0-100.0); Mean Platelet Volume 8.2 fL (7.0-11.0); Platelet Count 281 th/mm3 (150-450); Red Blood Count 3.29 mil/mm3 (4.00-5.30); Red Cell Distribution Width 21.1 % (11.6-17.2); White Blood Count 25.2 th/mm3 (4.0-11.0)
[2017-10-07 12:38] LABS: Anion Gap 6 meq/L (5-15); Blood Urea Nitrogen 8 mg/dL (7-18); Carbon Dioxide 25.1 meq/L (21.0-32.0); Chloride 111 meq/L (98-107); Glomerular Filtration Rate Greater Than 89 mL/min (>89); Glucose,Random 66 mg/dL (74-106); Potassium 3.7 meq/L (3.5-5.1); Sodium 142 meq/L (136-145)
--- NOTE | 2017-10-07 18:29 | P.PNADD ---
Addendum to Inpatient Note Reason for Addendum: Additional Documentation (Off Service Transfer of Care) Additional information: Patient is a 51-year-old female with a significant past medical history of COPD , schizophrenia, rheumatoid arthritis and left total knee replacement (07/26/17) who presents to the ED with complaints of worsening shortness of breath and mental status change accompanied with symptoms of diarrhea (3 days, non-bloody) and decreased p.o. intake (5 days). On admission patient found to be in severe sepsis with tachycardia (110), new onset neutropenia (WBC 0.9), Lactic acid of 3.1, and an H/H of 5.5/16.3 as well as AMS. Probable source was thought to be due to her prosthetic knee that was replaced in July earlier this year. At the time of admission her left knee was draining fluid and her gave a history of her knee draining "towels of pus". In the ED patient received 2 L of normal saline, vancomycin 1 g x1 and Zosyn 4.5 g x1. Chest CTA showed no evidence of atelectasis or consolidation of left lower lobe. Wound culture taken from left knee grew pseudomonas and group B strep, but blood cultures had no growth. Patient also had a transcutaneous skin infection on abdomen and groin that at the time appeared to be fungal. Patient also had oral thrush and was put on nystatin swish and swallow as well as IV fluconazole. The patient was also on several psychiatric drugs at the time for her schizophrenia such as methotrexate that were stopped due to myelosuppression. Heme / Onc was consulted and patient received Neupogen which greatly increased her white count. At the time of admission patient was also seen other individuals in the room who she reported were out to get her and psychiatry was consulted who recommended limiting her psych meds to aripiprazole, buspirone, duloxetine, and trazodone. During her treatment she received folic acid and leucovorin. She later developed thrombocytopenia, and a HIT workup was done which turned out to be negative, her platelets eventually sarthak again. This patient was initially admitted to the ICU due to neutropenic precautions, but was eventually transferred back down to the floor. Over her inpatient care patient slowly improved. Per ID her antibiotics were changed to levofloxacin, cefepime, and fluconazole. A plan was made with ID to get the patient a PICC line and have her administer antibiotics at home with the help of home health as well as wound care. She received a PICC line with a planned course of antibiotics of cefepime and levofloxacin until November 08, and fluconazole until October 18. Upon preparation for discharge patient mentioned that she was having pain near her anus, an exam revealed the same transcutaneous wound that she had under her pannus was also on her perineum extending almost to the anus. Patient was kept inpatient and not discharged for further wound care management. General surgery was consulted about possible debridement. Plan: -Continue cefepime, levofloxacin, and fluconazole per ID -Follow-up with Dr. Schneider from general surgery regarding debridement -Trend CBC -Per psychiatry continue aripiprazole, buspirone, duloxetine, and trazodone -Patient has significant desquamation and dry skin on her left leg below the knee continue treatment with lotion for hydration of the skin Of note: Patient has had small intermittent bouts of diarrhea and is currently on lacto bacillus acidophilus continue this treatment while inpatient
--- NOTE | 2017-10-07 21:33 | P.PNGS ---
Subjective Patient reports: still having pain (c/o increased pain and drainage from lower pannus) Physical Exam Vital signs: Vital Signs 10/07/17 00:00 10/07/17 04:00 10/07/17 08:00 Temperature 97.6 F 98 F 97.6 F Pulse Rate 109 H 107 H 106 H Respiratory Rate 16 16 14 Blood Pressure 123/63 120/65 121/71 Pulse Oximetry 96 96 97 10/07/17 12:00 10/07/17 16:00 10/07/17 20:00 Temperature 97.7 F 98.0 F 97.4 F L Pulse Rate 115 H 120 H 114 H Respiratory Rate 16 17 18 Blood Pressure 121/66 135/62 130/66 Pulse Oximetry 97 97 98 Intake & Output 10/07/17 10/07/17 10/08/17 06:59 18:59 06:59 Intake Total 200 / 200 700 / 700 600 / 600 Output Total 1999 / 1999 Balance 200 / 200 700 / 700 -1400 / -1400 Weight 107.6 kg Intake: IV 200 / 200 100 / 100 Maxipime Inj 2,000 MG In NS Inj 200 / 200 100 / 100 100 ML @ 200 mls/hr IV.SIG Q8H [facility] Rx#:[id number] Oral 600 / 600 600 / 600 Output: Urine 1999 / 1999 Other: # Voids 1 2 2 Date of Last Bowel Movement 10/07/17 10/07/17 10/07/17 # Bowel Movements 1 1 # Incontinent Bowel Movements 2 # Emeses 1 - Routine Abdominal Exam Present: soft (purulence and exudate from lower pannus area) - Urinary Catheter Management Indwelling Urethral Catheter Cath placed during this visit: yes, but has since been removed by the nurse Reason for continuing: Decision to DC catheter Insertion date: 09/27/17 Insertion time: 08:20 Removal date: 10/05/17 Removal time: 17:30 Assessment and Plan - Plan 51 y/o f with multiple medical issues, skin lesions PLAN will plan for OR this week for I and D possible vac placement, discussed with primary and patient
[2017-10-08 06:58] LABS: Hematocrit 23.6 % (35.0-46.0); Hemoglobin 7.9 gm/dL (11.6-15.3); Mean Corpuscular HGB Conc 33.7 % (32.0-36.0); Mean Corpuscular Hemoglobin 27.2 pg (27.0-34.0); Mean Corpuscular Volume 80.7 fL (80.0-100.0); Mean Platelet Volume 7.7 fL (7.0-11.0); Platelet Count 288 th/mm3 (150-450); Red Blood Count 2.92 mil/mm3 (4.00-5.30); Red Cell Distribution Width 21.2 % (11.6-17.2); White Blood Count 24.8 th/mm3 (4.0-11.0)
[2017-10-08 07:22] LABS: Anion Gap 5 meq/L (5-15); Blood Urea Nitrogen 7 mg/dL (7-18); Calcium 7.9 mg/dL (8.5-10.1); Carbon Dioxide 24.6 meq/L (21.0-32.0); Chloride 113 meq/L (98-107); Glomerular Filtration Rate Greater Than 89 mL/min (>89); Glucose,Random 70 mg/dL (74-106); Potassium 3.6 meq/L (3.5-5.1); Sodium 143 meq/L (136-145)
[2017-10-08] MEDS: levoFLOXacin 750 MG Tablet PO SCH (08:38)
[2017-10-08] MEDS: Folic Acid 1 MG Tablet PO SCH (08:38)
[2017-10-08] MEDS: dilTIAZem 60 MG Tablet PO SCH ×3 (08:39→18:25)
[2017-10-08] MEDS: Pantoprazole Sodium 20 MG DR Tablet PO SCH (08:39)
[2017-10-08] MEDS: Duloxetine 60 MG DR Capsule PO SCH (08:39)
[2017-10-08] MEDS: traZODone 100 MG Tablet PO SCH (08:39)
[2017-10-08] MEDS: Heparin Central Flush 100 UNIT/ML 5 ML Vial IV.FLUSH SCH (08:40)
--- NOTE | 2017-10-08 11:03 | P.PNFP ---
Subjective Interval history: Ms. Mcclain had no overnight events. She complains of diffuse RA pains as well as pain around her wound. She denies chest pain, fevers, nausea. <Patsy Baxter - 10/08/17 11:03> Results - Labs Result diagrams: 10/11/17 04:00 10/11/17 04:00 <RenettaMaddy Parris - 10/11/17 14:47> Abnormal lab results 10/11/17 10/11/17 Range/Units 04:00 04:00 WBC 22.4 H (4.0-11.0) th/mm3 RBC 3.10 L (4.00-5.30) mil/mm3 Hgb 8.6 L (11.6-15.3) gm/dL Hct 25.2 L (35.0-46.0) % RDW 19.3 H (11.6-17.2) % Chloride 113 H (98-107) meq/L BUN 6 L (7-18) mg/dL Creatinine 0.48 L (0.50-1.00) mg/dL Random Glucose 69 L (74-106) mg/dL Calcium 7.2 L* (8.5-10.1) mg/dL Total Protein 4.3 L (6.4-8.2) g/dL Short CBC 10/11/17 Range/Units 04:00 WBC 22.4 H (4.0-11.0) th/mm3 Hgb 8.6 L (11.6-15.3) gm/dL Hct 25.2 L (35.0-46.0) % Plt Count 294 (150-450) th/mm3 [facility] 10/11/17 04:00 Sodium 142 Potassium 4.5 Chloride 113 H Carbon Dioxide 23.3 BUN 6 L Creatinine 0.48 L Calcium 7.2 L* <Maddy Jackson - 10/11/17 14:47> Abnormal lab results 10/07/17 10/07/17 10/08/17 Range/Units 11:33 11:33 06:36 WBC 25.2 H 24.8 H (4.0-11.0) th/mm3 RBC 3.29 L 2.92 L (4.00-5.30) mil/mm3 Hgb 8.8 L 7.9 L (11.6-15.3) gm/dL Hct 26.7 L 23.6 L (35.0-46.0) % MCH 26.7 L (27.0-34.0) pg RDW 21.1 H 21.2 H (11.6-17.2) % Chloride 111 H (98-107) meq/L Random Glucose 66 L (74-106) mg/dL Calcium 8.0 L (8.5-10.1) mg/dL 10/08/17 Range/Units 06:36 WBC (4.0-11.0) th/mm3 RBC (4.00-5.30) mil/mm3 Hgb (11.6-15.3) gm/dL Hct (35.0-46.0) % MCH (27.0-34.0) pg RDW (11.6-17.2) % Chloride 113 H (98-107) meq/L Random Glucose 70 L (74-106) mg/dL Calcium 7.9 L (8.5-10.1) mg/dL Short CBC 10/07/17 10/08/17 Range/Units 11:33 06:36 WBC 25.2 H 24.8 H (4.0-11.0) th/mm3 Hgb 8.8 L 7.9 L (11.6-15.3) gm/dL Hct 26.7 L 23.6 L (35.0-46.0) % Plt Count 281 D 288 (150-450) th/mm3 BMP 10/07/17 10/08/17 11:33 06:36 Sodium 142 143 Potassium 3.7 3.6 Chloride 111 H 113 H Carbon Dioxide 25.1 24.6 BUN 8 7 Creatinine 0.59 0.50 Calcium 8.0 L 7.9 L <Patsy Baxter - 10/08/17 11:03> Physical Exam Vital signs: Vital Signs 10/10/17 17:00 10/10/17 20:00 10/10/17 21:00 Temperature 98.4 F Pulse Rate 101 H 118 H 107 H Respiratory Rate 20 Blood Pressure 166/78 H Pulse Oximetry 98 10/11/17 00:00 10/11/17 01:00 10/11/17 04:00 Temperature 97.5 F L 97.2 F L Pulse Rate 126 H 103 H 126 H Respiratory Rate 20 18 Blood Pressure 109/77 95/49 L Pulse Oximetry 96 96 10/11/17 04:01 10/11/17 08:42 10/11/17 09:00 Temperature 97.7 F Pulse Rate 120 H 105 H Respiratory Rate 17 16 Blood Pressure 146/97 H Pulse Oximetry 100 10/11/17 12:49 10/11/17 13:00 Temperature 97.9 F Pulse Rate 120 H 109 H Respiratory Rate 18 Blood Pressure 111/68 Pulse Oximetry 96 Intake & Output 10/10/17 10/11/17 10/11/17 18:59 06:59 18:59 Intake Total 1979 / 1979 1580 / 1580 440 / 440 Output Total 700 / 700 1160 / 1160 650 / 650 Balance 1280 / 1280 420 / 420 -210 / -210 Weight 122.1 kg Intake: IV 1100 / 1100 100 / 100 200 / 200 NS Inj 1,000 ML @ 100 mls/hr IV 1000 / 1000 .CONT .Q10H [facility] Rx#:[id number] Maxipime Inj 2,000 MG In NS Inj 100 / 100 100 / 100 200 / 200 100 ML @ 200 mls/hr IV.SIG Q8H [facility] Rx#:[id number] Oral 880 / 880 880 / 880 240 / 240 Anesthesia Amount 600 / 600 Output: Urine 700 / 700 700 / 700 650 / 650 Stool 400 / 400 Estimated Blood Loss 60 / 60 Other: # Voids 2 # Incontinent Voids 1 Date of Last Bowel Movement 10/09/17 10/09/17 # Bowel Movements 1 1 # Incontinent Bowel Movements 2 # Emeses 1 <Maddy Jackson M - 10/11/17 14:47> Vital Signs 10/07/17 12:00 10/07/17 16:00 10/07/17 20:00 Temperature 97.7 F 98.0 F 97.4 F L Pulse Rate 115 H 120 H 114 H Respiratory Rate 16 17 18 Blood Pressure 121/66 135/62 130/66 Pulse Oximetry 97 97 98 10/07/17 23:00 10/08/17 00:00 10/08/17 04:00 Temperature 98.6 F 98.1 F Pulse Rate 124 H 126 H 124 H Respiratory Rate 16 Blood Pressure 96/54 L 117/75 Pulse Oximetry 96 98 10/08/17 04:25 10/08/17 04:37 10/08/17 10:22 Temperature 98.2 F 98.1 F Pulse Rate 134 H 134 H 125 H Respiratory Rate 18 20 Blood Pressure 147/80 H 138/70 Pulse Oximetry 98 98 Intake & Output 10/07/17 10/08/17 10/08/17 18:59 06:59 18:59 Intake Total 700 / 700 700 / 700 Output Total 1999 Balance 700 / 700 -1300 / -1300 Weight 106.9 kg Intake: IV 100 / 100 100 / 100 Maxipime Inj 2,000 MG In NS Inj 100 / 100 100 / 100 100 ML @ 200 mls/hr IV.SIG Q8H [facility] Rx#:[id number] Oral 600 / 600 600 / 600 Output: Urine 1999 Other: # Voids 2 1 1 Date of Last Bowel Movement 10/07/17 10/07/17 # Bowel Movements 1 1 # Incontinent Bowel Movements 2 # Emeses 1 <Patsy Baxter - 10/08/17 11:03> Narrative: GENERAL: Obese female sitting up on the side of the bed, uncomfortable. SKIN: Warm and dry. HEAD: Normocephalic. EYES: No scleral icterus. No injection or drainage. NECK: Supple, trachea midline. No JVD or lymphadenopathy. CARDIOVASCULAR: Regular rate and rhythm without murmurs, gallops, or rubs. RESPIRATORY: Breath sounds equal bilaterally. No accessory muscle use. GASTROINTESTINAL: Abdomen soft, non-tender, nondistended. Large erythematous wound underneath pannus, moist, yellow drainage noted (with some component of the applied topical medication) : Wound extends to between buttocks, perineum and groin area. Moist, erythematous, yellow drainage. EXTREMITIES: Skin of L lower leg peeling from knee to ankle, erythematous. L pedal edema 1+. Trace R pedal edema. <Patsy Baxter - 10/08/17 11:03> - Urinary Catheter Management Indwelling Urethral Catheter Cath placed during this visit: no <Maddy Jackson - 10/11/17 14:47> yes, but has since been removed by the nurse <Patsy Baxter - 10/08/17 15:59> Reason for continuing: Decision to DC catheter <Patsy Baxter - 10/08/17 11:03 > Insertion date: 09/27/17 <Patsy Baxter - 10/08/17 11:03> Insertion time: 08:20 <Patsy Baxter - 10/08/17 11:03> Removal date: 10/05/17 <Patsy Baxter - 10/08/17 11:03> Removal time: 17:30 <Patsy Baxter - 10/08/17 11:03> Assessment and Plan - Assessment (1) Fungal infection of skin of abdomen Code(s): B36.9 - Superficial mycosis, unspecified Status: Acute (2) Cellulitis of knee, left Code(s): L03.116 - Cellulitis of left lower limb Status: Acute (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 - Infection and inflammatory reaction due to unspecified internal joint prosthesis, initial encounter Status: Suspected (4) Pneumonia Code(s): J18.9 - Pneumonia, unspecified organism Status: Resolved (5) Diarrhea Code(s): R19.7 - Diarrhea, unspecified Status: Resolved (6) Schizophrenia Code(s): F20.9 - Schizophrenia, unspecified Status: Chronic (7) Hypertension Code(s): I10 - Essential (primary) hypertension Status: Acute (8) Nutrition, metabolism, and development symptoms Code(s): R63.8 - Other symptoms and signs concerning food and fluid intake Status: Acute <Maddy Jackson - 10/11/17 14:47> (1) Fungal infection of skin of abdomen Code(s): B36.9 - Superficial mycosis, unspecified Status: Acute Plan: Presented on admission with what appears to be transcutaneous rash under the abdominal folds and groin area. Skin wound now in perineum just proximal to the anus. -Dr. Schneider from general surgery consulted. Plans to take patient to OR later this week for ID and possible wound vac -Wound care recommendations- cleanse, Cavilon skin barrier, and wicking pads between skin folds -Continue current course of antibiotics (2) Cellulitis of knee, left Code(s): L03.116 - Cellulitis of left lower limb Status: Acute Plan: -Pt s/p 2 weeks of Keflex 500mg po -Knee looks improved from reported exam on admission. Minimal swelling. No erythema. Non tender to palpation. 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 She completed rehabilitation and was discharged home August 23. Patient was on approximately 2 weeks of po Keflex 500 mg. Per Ortho, examination of left knee shows no evidence of infection. - See plan above for left leg cellulitis (4) Pneumonia Code(s): J18.9 - Pneumonia, unspecified organism Status: Resolved Plan: Patient found to have left lower lobe consolidation on chest CTA. Lungs CTAB today. She remains afebrile, with O2 sat WNL on room air. Patient currently on Levaquin. -Continue to monitor vital signs -Continue incentive spirometry (5) Diarrhea Code(s): R19.7 - Diarrhea, unspecified Status: Resolved Plan: On admission patient presented with 3-day history of diarrhea in the setting of recent antibiotics. All bowel regimens held. Patient C. difficile negative. -Diarrhea has improved and decreasing frequency. Continue with probiotics. (6) Schizophrenia Code(s): F20.9 - Schizophrenia, unspecified Status: Chronic Plan: Patient with chronic history of schizophrenia. On admission patient presented with active hallucinations of seeing someone out to get her. -No hallucinations over night -Psych consulted- recommend Continue Abilify 30 mg for psychosis, okay to continue buspirone 30 mg, trazodone 100 mg and Cymbalta 60 mg -Hold anticholinergics per Psych (7) Hypertension Code(s): I10 - Essential (primary) hypertension Status: Acute Plan: Patient with history of HTN on home diltiazem. -Isolated BP of 96/54 overnight, recovered to 138/70 this am - cardizem dose previously decreased to 60mg TID due prior to c/o of lightheadedness upon standing and working with physical therapy -continue to monitor (8) Nutrition, metabolism, and development symptoms Code(s): R63.8 - Other symptoms and signs concerning food and fluid intake Status: Acute Plan: Fluids: 100mls/hr Electrolytes: Replete as needed Nutrition: cardiac diet, continue to monitor po intake, supplement with ensure DVT prophylaxis: SCDs Continue to work with PT to get OOB <Patsy Baxter - 10/08/17 15:59> - Assessment and Plan The exam, history, and the medical decision-making described in the above note were completed with the assistance of the resident physician. I reviewed and agree with the findings presented. I attest that I had a [id number] encounter with the patient on the same day, and personally performed and documented my assessment and findings in the medical record. She has gotten in for the first time today and was sitting in a chair. She is very deconditioned. Her blood pressures are a little bit low. Consideration will be given to adjusting her medications and a rehab facility will be investigated for her. <Patsy Baxter - 10/08/17 11:03> - Attending Attestation The exam, history, and the medical decision-making described in the above note were completed with the assistance of the resident physician. I reviewed and agree with the findings presented. I attest that I had a [id number] encounter with the patient on the same day, and personally performed and documented my assessment and findings in the medical record. her would have a lot of responsibility if she went home and it is too much for him. she is worse with her RA <Maddy Jackson M - 10/11/17 14:47> <Patsy Baxter E - Last Filed: 10/08/17 15:59> (4) Pneumonia Qualifiers: Pneumonia type: due to unspecified organism Laterality: left Lung location: lower lobe of lung Qualified Code(s): J18.1 - Lobar pneumonia, unspecified organism (7) Hypertension Qualifiers: Hypertension type: essential hypertension Qualified Code(s): I10 - Essential (primary) hypertension <Renetta,Maddy M - Last Filed: 10/11/17 14:47> (4) Pneumonia Qualifiers: Pneumonia type: due to unspecified organism Laterality: left Lung location: lower lobe of lung Qualified Code(s): J18.1 - Lobar pneumonia, unspecified organism (7) Hypertension Qualifiers: Hypertension type: essential hypertension Qualified Code(s): I10 - Essential (primary) hypertension <Patsy Baxter E - Last Filed: 10/08/17 15:59> (4) Pneumonia Qualifiers: Pneumonia type: due to unspecified organism Laterality: left Lung location: lower lobe of lung Qualified Code(s): J18.1 - Lobar pneumonia, unspecified organism (7) Hypertension Qualifiers: Hypertension type: essential hypertension Qualified Code(s): I10 - Essential (primary) hypertension <Crucible,Maddy M - Last Filed: 10/11/17 14:47> (4) Pneumonia Qualifiers: Pneumonia type: due to unspecified organism Laterality: left Lung location: lower lobe of lung Qualified Code(s): J18.1 - Lobar pneumonia, unspecified organism (7) Hypertension Qualifiers: Hypertension type: essential hypertension Qualified Code(s): I10 - Essential (primary) hypertension
[2017-10-08] MEDS: Sod Chloride 0.9% Inj 1,000 ML IV.CONT SCH (13:41)
--- NOTE | 2017-10-08 21:03 | P.PNGS ---
Subjective Patient reports: still having pain (no fevers, no acute issues) Physical Exam Vital signs: Vital Signs 10/07/17 23:00 10/08/17 00:00 10/08/17 04:00 Temperature 98.6 F 98.1 F Pulse Rate 124 H 126 H 124 H Respiratory Rate 16 Blood Pressure 96/54 L 117/75 Pulse Oximetry 96 98 10/08/17 04:25 10/08/17 04:37 10/08/17 10:22 Temperature 98.2 F 98.1 F Pulse Rate 134 H 134 H 125 H Respiratory Rate 18 20 Blood Pressure 147/80 H 138/70 Pulse Oximetry 98 98 10/08/17 12:44 10/08/17 14:28 10/08/17 15:50 Temperature 97.9 F 97.7 F Pulse Rate 119 H 113 H 116 H Respiratory Rate 16 18 Blood Pressure 135/72 115/67 Pulse Oximetry 98 98 10/08/17 18:38 Temperature Pulse Rate 112 H Respiratory Rate Blood Pressure Pulse Oximetry Intake & Output 10/08/17 10/08/17 10/09/17 06:59 18:59 06:59 Intake Total 700 / 700 1200 / 1200 Output Total 1999 Balance -1300 / -1300 1200 / 1200 Weight 106.9 kg Intake: IV 100 / 100 1200 / 1200 NS Inj 1,000 ML @ 100 mls/hr IV 1000 / 1000 .CONT .Q10H [facility] Rx#:[id number] Maxipime Inj 2,000 MG In NS Inj 100 / 100 200 / 200 100 ML @ 200 mls/hr IV.SIG Q8H [facility] Rx#:[id number] Oral 600 / 600 Output: Urine 1999 Other: # Voids 1 1 Date of Last Bowel Movement 10/07/17 10/08/17 # Bowel Movements 1 1 # Incontinent Bowel Movements 2 # Emeses 1 - Routine Abdominal Exam Present: soft (wound to lower pannus with exudate, wound to bilateral thighs ) - Urinary Catheter Management Indwelling Urethral Catheter Cath placed during this visit: yes, but has since been removed by the nurse Reason for continuing: Decision to DC catheter Insertion date: 09/27/17 Insertion time: 08:20 Removal date: 10/05/17 Removal time: 17:30 Assessment and Plan - Plan 51 y/o f with multiple medical issues, skin lesions, failing medical non surgical tx PLAN will plan for OR tomorrow for I and D possible vac placement, discussed with primary and patient attempted phone call to but did not answer phone abx npo after mn consent
[2017-10-08] MEDS: Acetaminophen 325 MG Tablet PO PRN ×2 (21:42→22:12)
[2017-10-09] MEDS: Sod Chloride 0.9% Inj 1,000 ML IV.CONT SCH ×4 (03:52→21:09)
[2017-10-09 06:18] LABS: Hematocrit 22.8 % (35.0-46.0); Hemoglobin 7.5 gm/dL (11.6-15.3); Mean Corpuscular HGB Conc 33.1 % (32.0-36.0); Mean Corpuscular Hemoglobin 26.5 pg (27.0-34.0); Mean Corpuscular Volume 80.2 fL (80.0-100.0); Mean Platelet Volume 7.4 fL (7.0-11.0); Platelet Count 319 th/mm3 (150-450); Red Blood Count 2.84 mil/mm3 (4.00-5.30); Red Cell Distribution Width 21.4 % (11.6-17.2); White Blood Count 23.6 th/mm3 (4.0-11.0)
[2017-10-09 06:44] LABS: Anion Gap 7 meq/L (5-15); Blood Urea Nitrogen 6 mg/dL (7-18); Calcium 7.6 mg/dL (8.5-10.1); Carbon Dioxide 22.5 meq/L (21.0-32.0); Chloride 115 meq/L (98-107); Glomerular Filtration Rate Greater Than 89 mL/min (>89); Glucose,Random 79 mg/dL (74-106); Potassium 3.9 meq/L (3.5-5.1); Sodium 144 meq/L (136-145)
[2017-10-09] MEDS: dilTIAZem 60 MG Tablet PO SCH ×3 (08:41→18:39)
[2017-10-09] MEDS: traZODone 100 MG Tablet PO SCH (08:43)
[2017-10-09] MEDS: Pantoprazole Sodium 20 MG DR Tablet PO SCH (08:43)
[2017-10-09] MEDS: Folic Acid 1 MG Tablet PO SCH (08:44)
[2017-10-09] MEDS: Duloxetine 60 MG DR Capsule PO SCH (08:44)
[2017-10-09] MEDS: Heparin Central Flush 100 UNIT/ML 5 ML Vial IV.FLUSH SCH ×2 (08:44→13:19)
[2017-10-09] MEDS: levoFLOXacin 750 MG Tablet PO SCH (08:44)
--- NOTE | 2017-10-09 08:53 | P.PNGS ---
Subjective Patient reports: still having pain (still with lower abdominal and groin pain, confused but answering questions and following commands) Physical Exam Vital signs: Vital Signs 10/08/17 10:22 10/08/17 12:44 10/08/17 14:28 Temperature 98.1 F 97.9 F Pulse Rate 125 H 119 H 113 H Respiratory Rate 20 16 Blood Pressure 138/70 135/72 Pulse Oximetry 98 98 10/08/17 15:50 10/08/17 18:38 10/08/17 19:40 Temperature 97.7 F Pulse Rate 116 H 112 H 111 H Respiratory Rate 18 Blood Pressure 115/67 Pulse Oximetry 98 10/08/17 22:30 10/08/17 23:52 10/09/17 00:30 Temperature 98 F 97.8 F Pulse Rate 115 H 102 H 100 H Respiratory Rate 19 20 Blood Pressure 99/59 L 101/60 Pulse Oximetry 98 97 10/09/17 03:45 10/09/17 04:00 Temperature 98 F Pulse Rate 125 H 115 H Respiratory Rate 18 Blood Pressure 124/78 Pulse Oximetry 94 L Intake & Output 10/08/17 10/09/17 10/09/17 18:59 06:59 18:59 Intake Total 1200 / 1200 1950 / 1950 Balance 1200 / 1200 1950 / 1950 Weight 107 kg Intake: IV 1200 / 1200 1100 / 1100 NS Inj 1,000 ML @ 100 mls/hr IV 1000 / 1000 1000 / 1000 .CONT .Q10H [facility] Rx#:[id number] Maxipime Inj 2,000 MG In NS Inj 200 / 200 100 / 100 100 ML @ 200 mls/hr IV.SIG Q8H [facility] Rx#:[id number] Oral 850 / 850 Other: # Voids 1 2 # Incontinent Voids 2 Date of Last Bowel Movement 10/08/17 10/08/17 # Bowel Movements 1 0 - Constitutional no acute distress - Routine Abdominal Exam Present: soft (groin with drainage, lower pannus and bilateral proximal thighs, no cellulitis ) - Urinary Catheter Management Indwelling Urethral Catheter Cath placed during this visit: yes, but has since been removed by the nurse Reason for continuing: Decision to DC catheter Insertion date: 09/27/17 Insertion time: 08:20 Removal date: 10/05/17 Removal time: 17:30 Assessment and Plan - Plan 51 y/o f with multiple medical issues, skin lesions with drainage, failing medical non surgical tx PLAN OR planning today, insisting on speaking with surgical team prior to consent signing. not available, I attempted to call twice today will likely cancel OR today if remains unavailable I discussed with nursing and patient the importance of debridement and vac placement. Patient is pleasently confuse but states understanding. attempted phone call to but did not answer phone abx npo, ok for diet pending consent
[2017-10-09] MEDS ORDERED: Neostigmine Inj 5 MG/5 ML Syringe IV.PUSH ONE (09:35)
[2017-10-09] MEDS ORDERED: Succinylcholine Inj 100 MG/5 ML Syringe IV.PUSH ONE (09:35)
[2017-10-09] MEDS ORDERED: Normosol-R pH 7.4 Inj 2,000 ML IV.CONT ONE (09:35)
[2017-10-09] MEDS ORDERED: Glycopyrrolate Inj 1 MG/5 ML Syringe IV.PUSH ONE (09:35)
[2017-10-09] MEDS ORDERED: Sodium Chlor 0.9% Inj 250 ML IV.SIG ONE (09:35)
--- NOTE | 2017-10-09 11:17 | P.PNFP ---
Subjective Interval history: Patient seen and examined today. Denies nausea, vomiting, fever, chills, abdominal pain, chest pain, shortness of breath, changes in bowel or urinary habits. Currently alert and oriented to person and place, not time. Denies AV hallucinations. No other complaints at this time. <Saeed Greene - 10/09/17 11:16> Results - Labs Result diagrams: 10/09/17 05:45 10/09/17 05:45 <JakeHafsay - 10/09/17 16:21> Abnormal lab results 09/27/17 10/09/17 10/09/17 Range/Units 11:27 05:45 05:45 WBC 23.6 H (4.0-11.0) th/mm3 RBC 2.84 L (4.00-5.30) mil/mm3 Hgb 7.5 L (11.6-15.3) gm/dL Hct 22.8 L (35.0-46.0) % MCH 26.5 L (27.0-34.0) pg RDW 21.4 H (11.6-17.2) % Chloride 115 H (98-107) meq/L BUN 6 L (7-18) mg/dL Creatinine 0.49 L (0.50-1.00) mg/dL Calcium 7.6 L (8.5-10.1) mg/dL MTS Gel Crossmatch See Detail 10/09/17 Range/Units 11:40 WBC (4.0-11.0) th/mm3 RBC (4.00-5.30) mil/mm3 Hgb (11.6-15.3) gm/dL Hct (35.0-46.0) % MCH (27.0-34.0) pg RDW (11.6-17.2) % Chloride (98-107) meq/L BUN (7-18) mg/dL Creatinine (0.50-1.00) mg/dL Calcium (8.5-10.1) mg/dL MTS Gel Crossmatch See Detail Short CBC 10/09/17 Range/Units 05:45 WBC 23.6 H (4.0-11.0) th/mm3 Hgb 7.5 L (11.6-15.3) gm/dL Hct 22.8 L (35.0-46.0) % Plt Count 319 (150-450) th/mm3 BMP 10/09/17 05:45 Sodium 144 Potassium 3.9 Chloride 115 H Carbon Dioxide 22.5 BUN 6 L Creatinine 0.49 L Calcium 7.6 L <John Joseph - 10/09/17 16:21> Abnormal lab results 10/09/17 10/09/17 Range/Units 05:45 05:45 WBC 23.6 H (4.0-11.0) th/mm3 RBC 2.84 L (4.00-5.30) mil/mm3 Hgb 7.5 L (11.6-15.3) gm/dL Hct 22.8 L (35.0-46.0) % MCH 26.5 L (27.0-34.0) pg RDW 21.4 H (11.6-17.2) % Chloride 115 H (98-107) meq/L BUN 6 L (7-18) mg/dL Creatinine 0.49 L (0.50-1.00) mg/dL Calcium 7.6 L (8.5-10.1) mg/dL Short CBC 10/09/17 Range/Units 05:45 WBC 23.6 H (4.0-11.0) th/mm3 Hgb 7.5 L (11.6-15.3) gm/dL Hct 22.8 L (35.0-46.0) % Plt Count 319 (150-450) th/mm3 [facility] 10/09/17 05:45 Sodium 144 Potassium 3.9 Chloride 115 H Carbon Dioxide 22.5 BUN 6 L Creatinine 0.49 L Calcium 7.6 L <Saeed Greene - 10/09/17 11:16> Physical Exam Vital signs: Vital Signs 10/08/17 18:38 10/08/17 19:40 10/08/17 22:30 Temperature 98 F Pulse Rate 112 H 111 H 115 H Respiratory Rate 19 Blood Pressure 99/59 L Pulse Oximetry 98 10/08/17 23:52 10/09/17 00:30 10/09/17 03:45 Temperature 97.8 F 98 F Pulse Rate 102 H 100 H 125 H Respiratory Rate 20 18 Blood Pressure 101/60 124/78 Pulse Oximetry 97 94 L 10/09/17 04:00 10/09/17 08:00 10/09/17 10:55 Temperature 98.3 F Pulse Rate 115 H 114 H 128 H Respiratory Rate 24 16 Blood Pressure 132/60 138/74 Pulse Oximetry 98 97 10/09/17 11:36 10/09/17 12:00 10/09/17 12:33 Temperature 98.4 F Pulse Rate 105 H 130 H 130 H Respiratory Rate 15 15 Blood Pressure 134/64 123/84 Pulse Oximetry 98 96 10/09/17 13:00 10/09/17 13:07 10/09/17 14:02 Temperature 98.4 F 97.5 F L Pulse Rate 126 H 141 H 126 H Respiratory Rate 15 10 L Blood Pressure 127/66 157/74 H Pulse Oximetry 96 Intake & Output 10/08/17 10/09/17 10/09/17 18:59 06:59 18:59 Intake Total 1200 / 1200 1949 / 1951 0 / 0 Balance 1200 / 1200 1951 / 1951 0 / 0 Weight 107 kg Intake: IV 1200 / 1200 1100 / 1100 NS Inj 1,000 ML @ 100 mls/hr IV 1000 / 1000 1000 / 1000 .CONT .Q10H [facility] Rx#:[id number] Maxipime Inj 2,000 MG In NS Inj 200 / 200 100 / 100 100 ML @ 200 mls/hr IV.SIG Q8H [facility] Rx#:[id number] Oral 850 / 850 Intake (Blood Product) Amt 0 / 0 Rbc As-3 Leukoreduced Unit 0 / 0 [id number] Rbc As-3 Leukoreduced Unit 0 / 0 [id number] Other: # Voids 1 2 # Incontinent Voids 2 1 Date of Last Bowel Movement 10/08/17 10/08/17 # Bowel Movements 1 0 <John Joseph - 10/09/17 16:21> Vital Signs 10/08/17 12:44 10/08/17 14:28 10/08/17 15:50 Temperature 97.9 F 97.7 F Pulse Rate 119 H 113 H 116 H Respiratory Rate 16 18 Blood Pressure 135/72 115/67 Pulse Oximetry 98 98 10/08/17 18:38 10/08/17 19:40 10/08/17 22:30 Temperature 98 F Pulse Rate 112 H 111 H 115 H Respiratory Rate 19 Blood Pressure 99/59 L Pulse Oximetry 98 10/08/17 23:52 10/09/17 00:30 10/09/17 03:45 Temperature 97.8 F 98 F Pulse Rate 102 H 100 H 125 H Respiratory Rate 20 18 Blood Pressure 101/60 124/78 Pulse Oximetry 97 94 L 10/09/17 04:00 10/09/17 08:00 Temperature 98.3 F Pulse Rate 115 H 114 H Respiratory Rate 24 Blood Pressure 132/60 Pulse Oximetry 98 Intake & Output 10/08/17 10/09/17 10/09/17 18:59 06:59 18:59 Intake Total 1200 / 1200 1949 Balance 1200 / 1200 [birth year] Weight 107 kg Intake: IV 1200 / 1200 1100 / 1100 NS Inj 1,000 ML @ 100 mls/hr IV 1000 / 1000 1000 / 1000 .CONT .Q10H [facility] Rx#:[id number] Maxipime Inj 2,000 MG In NS Inj 200 / 200 100 / 100 100 ML @ 200 mls/hr IV.SIG Q8H [facility] Rx#:[id number] Oral 850 / 850 Other: # Voids 1 2 # Incontinent Voids 2 Date of Last Bowel Movement 10/08/17 10/08/17 # Bowel Movements 1 0 <Saeed Greene - 10/09/17 11:16> Narrative: GENERAL: Obese female laying in bed, no acute distress SKIN: Warm and dry. HEAD: Normocephalic. EYES: No scleral icterus. No injection or drainage. NECK: Supple, trachea midline. No JVD or lymphadenopathy. CARDIOVASCULAR: Regular rate and rhythm without murmurs, gallops, or rubs. RESPIRATORY: Breath sounds equal bilaterally. No accessory muscle use. GASTROINTESTINAL: Abdomen soft, non-tender, nondistended. Large erythematous wound underneath pannus, moist, yellow drainage noted (with some component of the applied topical medication) : Wound extends to between buttocks, perineum and groin area. Moist, erythematous, yellow drainage. EXTREMITIES: Skin of L lower leg peeling from knee to ankle, erythematous. L pedal edema 1+. Trace R pedal edema. <Saeed Greene - 10/09/17 11:16> - Urinary Catheter Management Indwelling Urethral Catheter Cath placed during this visit: no <John Joseph 10/09/17 16:21> yes, but has since been removed by the nurse <Saeed Greene - 10/09/17 11:16> Reason for continuing: Decision to DC catheter <Saeed Greene - 10/09/17 11 :16> Insertion date: 09/27/17 <Saeed Greene - 10/09/17 11:16> Insertion time: 08:20 <Saeed Greene - 10/09/17 11:16> Removal date: 10/05/17 <Saeed Greene - 10/09/17 11:16> Removal time: 17:30 <Saeed Greene - 10/09/17 11:16> Assessment and Plan - Assessment (1) Fungal infection of skin of abdomen Code(s): B36.9 - Superficial mycosis, unspecified Status: Acute (2) Cellulitis of knee, left Code(s): L03.116 - Cellulitis of left lower limb Status: Acute (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 - Infection and inflammatory reaction due to unspecified internal joint prosthesis, initial encounter Status: Suspected (4) Pneumonia Code(s): J18.9 - Pneumonia, unspecified organism Status: Resolved (5) Diarrhea Code(s): R19.7 - Diarrhea, unspecified Status: Resolved (6) Schizophrenia Code(s): F20.9 - Schizophrenia, unspecified Status: Chronic (7) Hypertension Code(s): I10 - Essential (primary) hypertension Status: Acute (8) Nutrition, metabolism, and development symptoms Code(s): R63.8 - Other symptoms and signs concerning food and fluid intake Status: Acute <John Joseph - 10/09/17 16:21> (1) Fungal infection of skin of abdomen Code(s): B36.9 - Superficial mycosis, unspecified Status: Acute Plan: Presented on admission with what appears to be transcutaneous rash under the abdominal folds and groin area. Skin wound now in perineum just proximal to the anus. -Dr. Schneider from general surgery consulted. Plans to take patient to OR, currently attempting to contact prior to surgery, having difficulty. -Wound care recommendations- cleanse, Cavilon skin barrier, and wicking pads between skin folds -Continue current course of antibiotics (2) Cellulitis of knee, left Code(s): L03.116 - Cellulitis of left lower limb Status: Acute Plan: -Pt s/p 2 weeks of Keflex 500mg po -Knee looks improved from reported exam on admission. Minimal swelling. No erythema. Non tender to palpation. 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 She completed rehabilitation and was discharged home August 23. Patient was on approximately 2 weeks of po Keflex 500 mg. Per Ortho, examination of left knee shows no evidence of infection. - See plan above for left leg cellulitis (4) Pneumonia Code(s): J18.9 - Pneumonia, unspecified organism Status: Resolved Plan: Patient found to have left lower lobe consolidation on chest CTA. Lungs CTAB today. She remains afebrile, with O2 sat WNL on room air. Patient currently on Levaquin. -Continue to monitor vital signs -Continue incentive spirometry (5) Diarrhea Code(s): R19.7 - Diarrhea, unspecified Status: Resolved Plan: On admission patient presented with 3-day history of diarrhea in the setting of recent antibiotics. All bowel regimens held. Patient C. difficile negative. -Diarrhea has improved and decreasing frequency. Continue with probiotics. (6) Schizophrenia Code(s): F20.9 - Schizophrenia, unspecified Status: Chronic Plan: Patient with chronic history of schizophrenia. On admission patient presented with active hallucinations of seeing someone out to get her. -No hallucinations over night -Psych consulted- recommend Continue Abilify 30 mg for psychosis, okay to continue buspirone 30 mg, trazodone 100 mg and Cymbalta 60 mg -Hold anticholinergics per Psych (7) Hypertension Code(s): I10 - Essential (primary) hypertension Status: Acute Plan: Patient with history of HTN on home diltiazem. - cardizem dose previously decreased to 60mg TID due prior to c/o of lightheadedness upon standing and working with physical therapy -continue to monitor (8) Nutrition, metabolism, and development symptoms Code(s): R63.8 - Other symptoms and signs concerning food and fluid intake Status: Acute Plan: Fluids: 100mls/hr Electrolytes: Replete as needed Nutrition: cardiac diet, continue to monitor po intake, supplement with ensure DVT prophylaxis: SCDs Continue to work with PT to get OOB <Saeed Greene - 10/09/17 11:12> <Saeed Greene - Last Filed: 10/09/17 11:12> (4) Pneumonia Qualifiers: Pneumonia type: due to unspecified organism Laterality: left Lung location: lower lobe of lung Qualified Code(s): J18.1 - Lobar pneumonia, unspecified organism (7) Hypertension Qualifiers: Hypertension type: essential hypertension Qualified Code(s): I10 - Essential (primary) hypertension <John Joseph - Last Filed: 10/09/17 16:21> (4) Pneumonia Qualifiers: Pneumonia type: due to unspecified organism Laterality: left Lung location: lower lobe of lung Qualified Code(s): J18.1 - Lobar pneumonia, unspecified organism (7) Hypertension Qualifiers: Hypertension type: essential hypertension Qualified Code(s): I10 - Essential (primary) hypertension <Saeed Greene Last Filed: 10/09/17 11:12> (4) Pneumonia Qualifiers: Pneumonia type: due to unspecified organism Laterality: left Lung location: lower lobe of lung Qualified Code(s): J18.1 - Lobar pneumonia, unspecified organism (7) Hypertension Qualifiers: Hypertension type: essential hypertension Qualified Code(s): I10 - Essential (primary) hypertension <John Joseph - Last Filed: 10/09/17 16:21> (4) Pneumonia Qualifiers: Pneumonia type: due to unspecified organism Laterality: left Lung location: lower lobe of lung Qualified Code(s): J18.1 - Lobar pneumonia, unspecified organism (7) Hypertension Qualifiers: Hypertension type: essential hypertension Qualified Code(s): I10 - Essential (primary) hypertension
[2017-10-09] MEDS ORDERED: Ketamine Inj 500 MG/10 ML Vial ONE (13:06)
[2017-10-09] MEDS ORDERED: fentaNYL Citrate Inj 100 MCG/2 ML Ampul ONE ×2 (15:17→16:14)
--- NOTE | 2017-10-09 16:03 | P.OP ---
- Preoperative Diagnosis (1) Skin ulcer of abdominal wall, limited to breakdown of skin - Postoperative Diagnosis (1) Skin ulcer of abdominal wall, limited to breakdown of skin Date of procedure: 10/09/17 Procedure: I and D of abdominal wall and bilateral thighs with vac placement 46cm x15cm Anesthesia: RAMYA Surgeon: Jose Schneider MD Pathology: other (skin sent for path and for culture) Operation and Findings: good seal good hemostasis
[2017-10-09] MEDS ORDERED: *Meperidine Inj 25 MG/ML Vial PERIprocedural Use ONLY ONE (16:16)
--- NOTE | 2017-10-09 16:27 | MP ---
cc: Jose Schneider MD DATE OF OPERATION: 10/09/2017 PREOPERATIVE DIAGNOSIS: Infected necrotic skin abdominal wall, bilateral thighs. POSTOPERATIVE DIAGNOSIS: Infected necrotic skin abdominal wall, bilateral thighs. PROCEDURE PERFORMED: Incision and drainage with excisional debridement of skin and some soft tissue of abdominal wall and inner thigh area, 45 cm x 15 cm, with VAC placement. SURGEON: Jose Schneider MD [employer]: see or sheet ANESTHESIA: GETA. IV FLUIDS: See Anesthesia sheet. ESTIMATED BLOOD LOSS: 60 mL. DRAINS: VAC placement. COMPLICATIONS: None. WOUND CLASSIFICATION: Contaminated. SPECIMENS: 1. Necrotic skin sent for pathology. 2. Necrotic skin sent for culture. FINDINGS: Large area of necrotic skin. Good hemostasis. Good VAC seal. INDICATIONS: The patient is a 51-year-old female who presented with progressive worsening of a skin ulceration with a necrotic-appearing skin. She underwent initial nonoperative medical management with wound care without success and continued advancement of skin necrosis. Decision was made for excisional debridement of the skin with VAC placement. DETAILS OF PROCEDURE: The patient was taken to the operating suite, placed in supine position. She was prepped and draped in the usual sterile fashion after induction of general endotracheal anesthesia. The patient in lithotomy position, attention was directed to the lower anterior abdominal wall. There was a large expanse of necrotic skin undermining folds of the patient's abdomen. A #15 blade was used to excise until healthy skin in this necrotic area. This was done to include some of the subcutaneous fatty tissue. Fatty tissue noted to be somewhat well perfused. There was no evidence of underlying abscess noted. The skin was removed including the affected areas across the lower abdomen and medial inner thighs as well. Excision done. Abdominal wall VAC sponge was placed deep in the subcutaneous tissue and nylon horizontal mattress sutures #2 used to approximate the skin edges. The defect in the center was left open for 2 more sponge placements. Also, another sponge placed on the other lateral area and closed again over with horizontal mattress nylon sutures. The anterior thigh areas that were excised were also reapproximated with nedra and nylon sutures. Plastic drape was placed for the VAC machine and this was done to the lower abdomen. Xeroform with 4 x 4s and ABDs were placed to the anterior medial proximal thighs. Hopper was also placed to protect the wounds from urine. A DIGNISHIELD rectal tube will also be placed to protect from stool. The patient tolerated the procedure well. There were no intraoperative complications. All lap and instrument counts were correct at the end of the procedure. The patient was extubated and taken stable to PACU. MD RAY Meier/BIPIN , 04:08 PM , 04:25 PM JOSE
--- NOTE | 2017-10-09 16:42 | XR ---
EXAM DATE: 10/09/2017 4:36 PM EDT AGE/SEX: 51 years / Female INDICATIONS: Post central line placement right side CLINICAL DATA: This is the patient's initial encounter. Patient reports that signs and symptoms have been present for 1 day and indicates a pain score of Nonresponsive. MEDICAL/SURGICAL HISTORY: Sepsis. Anemia. neutropenia . cervical fusion COMPARISON: [facility], CHEST 1V SINGLE AP, 09/27/2017. . FINDINGS: A single AP view of the chest demonstrates the lungs to be symmetrically aerated without evidence of mass, infiltrate or effusion. The cardiomediastinal contours are unremarkable. Osseous structures a re intact. A right-sided PICC line is now visualized with tip projected in the region of the superio r vena cava. There is an apparent right internal jugular central venous line which is poorly visualiz ed. The tip appears projected at the base of the neck. There is no pneumothorax. Patient status post lower cervical fusion. CONCLUSION: 1. Apparent right internal jugular central venous line with the tip projected near the base of the r ight neck. There is no pneumothorax. 2. Right-sided PICC line now noted. Electronically signed by: Saeed Cano MD 10/09/2017 4:41 PM EDT
[2017-10-09 16:50] LABS: Baso # (Auto) 0.1 th/mm3 (0.0-0.2); Baso % (Auto) 0.5 % (0.0-2.0); Eos # (Auto) 0.2 th/mm3 (0.0-0.4); Eos % (Auto) 0.9 % (0.0-4.0); Hematocrit 32.1 % (35.0-46.0); Hemoglobin 10.9 gm/dL (11.6-15.3); Lymph % (Auto) 7.2 % (9.0-44.0); Mean Corpuscular Hemoglobin 27.6 pg (27.0-34.0); Mean Corpuscular Volume 81.1 fL (80.0-100.0); Mean Platelet Volume 7.4 fL (7.0-11.0); Mono # (Auto) 2.5 th/mm3 (0.0-0.9); Mono % (Auto) 9.1 % (0.0-8.0); Neut # (Auto) 22.5 th/mm3 (1.8-7.7); Neut % (Auto) 82.3 % (16.0-70.0); Platelet Count 333 th/mm3 (150-450); Red Blood Count 3.96 mil/mm3 (4.00-5.30); Red Cell Distribution Width 18.9 % (11.6-17.2); White Blood Count 27.4 th/mm3 (4.0-11.0)
[2017-10-09 17:11] LABS: Anion Gap 6 meq/L (5-15); Blood Urea Nitrogen 5 mg/dL (7-18); Calcium 7.5 mg/dL (8.5-10.1); Carbon Dioxide 24.7 meq/L (21.0-32.0); Chloride 113 meq/L (98-107); Glomerular Filtration Rate Greater Than 89 mL/min (>89); Glucose,Random 78 mg/dL (74-106); Potassium 4.3 meq/L (3.5-5.1); Sodium 144 meq/L (136-145)
[2017-10-09 17:46] LABS: Lymphocytes 7 % (9-44); Metamyelocytes 2 % (0-1); Monocytes 3 % (0-8); Tallied Nucleated RBC 1 (0-0)
[2017-10-09 17:47] LABS: Burr Cells 1+; Ovalocytes 1+; Toxic Granulation 3+
[2017-10-09 17:48] LABS: Platelet Estimate Normal (Normal); Platelet Morphology Normal (Normal); Toxic Vacuolation Present
--- NOTE | 2017-10-09 18:15 | ECG ---
Date Performed: 10/09/2017 Time Performed: 16:53:22 PTAGE: 51 years EKG: SINUS TACHYCARDIA LOW QRS VOLTAGE IN PRECORDIAL LEADS ABNORMAL RHYTHM ECG PREVIOUS TRACING : 09/27/2017 08.06 Since the previous tracing, no significant change noted DOCTOR: Aaliyah Salgado Interpretating Date/Time 10/09/2017 18:14:27
[2017-10-10] MEDS: Sod Chloride 0.9% Inj 1,000 ML IV.CONT SCH ×2 (00:08→13:04)
[2017-10-10 06:55] LABS: Hematocrit 28.9 % (35.0-46.0); Hemoglobin 9.7 gm/dL (11.6-15.3); Mean Corpuscular HGB Conc 33.6 % (32.0-36.0); Mean Corpuscular Hemoglobin 27.3 pg (27.0-34.0); Mean Corpuscular Volume 81.1 fL (80.0-100.0); Mean Platelet Volume 7.6 fL (7.0-11.0); Platelet Count 320 th/mm3 (150-450); Red Blood Count 3.56 mil/mm3 (4.00-5.30); Red Cell Distribution Width 19.4 % (11.6-17.2); White Blood Count 22.9 th/mm3 (4.0-11.0)
[2017-10-10 07:33] LABS: Anion Gap 7 meq/L (5-15); Blood Urea Nitrogen 5 mg/dL (7-18); Calcium 7.4 mg/dL (8.5-10.1); Carbon Dioxide 24.4 meq/L (21.0-32.0); Chloride 114 meq/L (98-107); Glomerular Filtration Rate Greater Than 89 mL/min (>89); Glucose,Random 64 mg/dL (74-106); Potassium 4.2 meq/L (3.5-5.1); Sodium 145 meq/L (136-145)
[2017-10-10 07:46] LABS: Total Protein 4.6 g/dL (6.4-8.2)
[2017-10-10] MEDS: dilTIAZem 60 MG Tablet PO SCH ×3 (08:11→18:00)
[2017-10-10] MEDS: Folic Acid 1 MG Tablet PO SCH (08:11)
[2017-10-10] MEDS: levoFLOXacin 750 MG Tablet PO SCH (08:11)
[2017-10-10] MEDS: Pantoprazole Sodium 20 MG DR Tablet PO SCH (08:11)
[2017-10-10] MEDS: Duloxetine 60 MG DR Capsule PO SCH (08:11)
[2017-10-10] MEDS: traZODone 100 MG Tablet PO SCH (08:11)
[2017-10-10] MEDS: Heparin Central Flush 100 UNIT/ML 5 ML Vial IV.FLUSH SCH (08:15)
--- NOTE | 2017-10-10 11:24 | P.PNFP ---
Subjective Interval history: Patient seen and examined this morning. Denies nausea, vomiting, fever, chills, abdominal pain, chest pain, shortness of breath, lightheadedness, dizziness, changes in urinary or bowel habits. Currently denies audiovisual hallucinations. No other complaints at this time. <Saeed Greene - 10/10/17 11:23> Results - Labs Result diagrams: 10/10/17 06:15 10/10/17 06:15 <John Joseph - 10/10/17 15:27> Abnormal lab results 10/09/17 10/09/17 10/09/17 Range/Units 11:40 16:30 16:30 WBC 27.4 H (4.0-11.0) th/mm3 RBC 3.96 L (4.00-5.30) mil/mm3 Hgb 10.9 L D (11.6-15.3) gm/dL Hct 32.1 L (35.0-46.0) % RDW 18.9 H D (11.6-17.2) % Neut % (Auto) 82.3 H (16.0-70.0) % Lymph % (Auto) 7.2 L (9.0-44.0) % [place] % (Auto) 9.1 H (0.0-8.0) % Neut # (Auto) 22.5 H (1.8-7.7) th/mm3 [place] # (Auto) 2.5 H (0.0-0.9) th/mm3 Seg Neuts % (Manual) 82 H (16-70) % Lymphocytes % (Manual) 7 L (9-44) % Metamyelocytes % (Man) 2 H (0-1) % Abs Neuts (Manual) 24.7 H (1.8-7.7) th/mm3 Nucleated RBCs/100 WBC 1 H (0-0) /100 WBC Toxic Granulation 3+ H (None) Toxic Vacuolation Present H (None) Ovalocytes 1+ H (None) Giorgio Cells 1+ H (None) Chloride 113 H (98-107) meq/L BUN 5 L (7-18) mg/dL Random Glucose (74-106) mg/dL Calcium 7.5 L (8.5-10.1) mg/dL Total Protein (6.4-8.2) g/dL MTS Gel Crossmatch See Detail 10/10/17 10/10/17 Range/Units 06:15 06:15 WBC 22.9 H (4.0-11.0) th/mm3 RBC 3.56 L (4.00-5.30) mil/mm3 Hgb 9.7 L (11.6-15.3) gm/dL Hct 28.9 L (35.0-46.0) % RDW 19.4 H (11.6-17.2) % Neut % (Auto) (16.0-70.0) % Lymph % (Auto) (9.0-44.0) % [place] % (Auto) (0.0-8.0) % Neut # (Auto) (1.8-7.7) th/mm3 [place] # (Auto) (0.0-0.9) th/mm3 Seg Neuts % (Manual) (16-70) % Lymphocytes % (Manual) (9-44) % Metamyelocytes % (Man) (0-1) % Abs Neuts (Manual) (1.8-7.7) th/mm3 Nucleated RBCs/100 WBC (0-0) /100 WBC Toxic Granulation (None) Toxic Vacuolation (None) Ovalocytes (None) Giorgio Cells (None) Chloride 114 H (98-107) meq/L BUN 5 L (7-18) mg/dL Random Glucose 64 L (74-106) mg/dL Calcium 7.4 L* (8.5-10.1) mg/dL Total Protein 4.6 L (6.4-8.2) g/dL MTS Gel Crossmatch Short CBC 10/09/17 10/10/17 Range/Units 16:30 06:15 WBC 27.4 H 22.9 H (4.0-11.0) th/mm3 Hgb 10.9 L D 9.7 L (11.6-15.3) gm/dL Hct 32.1 L 28.9 L (35.0-46.0) % Plt Count 333 320 (150-450) th/mm3 BMP 10/09/17 10/10/17 16:30 06:15 Sodium 144 145 Potassium 4.3 4.2 Chloride 113 H 114 H Carbon Dioxide 24.7 24.4 BUN 5 L 5 L Creatinine 0.53 0.50 Calcium 7.5 L 7.4 L* <John Joseph - 10/10/17 15:27> Abnormal lab results 09/27/17 10/09/17 10/09/17 Range/Units 11:27 11:40 16:30 WBC 27.4 H (4.0-11.0) th/mm3 RBC 3.96 L (4.00-5.30) mil/mm3 Hgb 10.9 L D (11.6-15.3) gm/dL Hct 32.1 L (35.0-46.0) % RDW 18.9 H D (11.6-17.2) % Neut % (Auto) 82.3 H (16.0-70.0) % Lymph % (Auto) 7.2 L (9.0-44.0) % [place] % (Auto) 9.1 H (0.0-8.0) % Neut # (Auto) 22.5 H (1.8-7.7) th/mm3 [place] # (Auto) 2.5 H (0.0-0.9) th/mm3 Seg Neuts % (Manual) 82 H (16-70) % Lymphocytes % (Manual) 7 L (9-44) % Metamyelocytes % (Man) 2 H (0-1) % Abs Neuts (Manual) 24.7 H (1.8-7.7) th/mm3 Nucleated RBCs/100 WBC 1 H (0-0) /100 WBC Toxic Granulation 3+ H (None) Toxic Vacuolation Present H (None) Ovalocytes 1+ H (None) Giorgio Cells 1+ H (None) Chloride (98-107) meq/L BUN (7-18) mg/dL Random Glucose (74-106) mg/dL Calcium (8.5-10.1) mg/dL Total Protein (6.4-8.2) g/dL MTS Gel Crossmatch See Detail See Detail 10/09/17 10/10/17 10/10/17 Range/Units 16:30 06:15 06:15 WBC 22.9 H (4.0-11.0) th/mm3 RBC 3.56 L (4.00-5.30) mil/mm3 Hgb 9.7 L (11.6-15.3) gm/dL Hct 28.9 L (35.0-46.0) % RDW 19.4 H (11.6-17.2) % Neut % (Auto) (16.0-70.0) % Lymph % (Auto) (9.0-44.0) % [place] % (Auto) (0.0-8.0) % Neut # (Auto) (1.8-7.7) th/mm3 [place] # (Auto) (0.0-0.9) th/mm3 Seg Neuts % (Manual) (16-70) % Lymphocytes % (Manual) (9-44) % Metamyelocytes % (Man) (0-1) % Abs Neuts (Manual) (1.8-7.7) th/mm3 Nucleated RBCs/100 WBC (0-0) /100 WBC Toxic Granulation (None) Toxic Vacuolation (None) Ovalocytes (None) Giorgio Cells (None) Chloride 113 H 114 H (98-107) meq/L BUN 5 L 5 L (7-18) mg/dL Random Glucose 64 L (74-106) mg/dL Calcium 7.5 L 7.4 L* (8.5-10.1) mg/dL Total Protein 4.6 L (6.4-8.2) g/dL MTS Gel Crossmatch Short CBC 10/09/17 10/10/17 Range/Units 16:30 06:15 WBC 27.4 H 22.9 H (4.0-11.0) th/mm3 Hgb 10.9 L D 9.7 L (11.6-15.3) gm/dL Hct 32.1 L 28.9 L (35.0-46.0) % Plt Count 333 320 (150-450) th/mm3 BMP 10/09/17 10/10/17 16:30 06:15 Sodium 144 145 Potassium 4.3 4.2 Chloride 113 H 114 H Carbon Dioxide 24.7 24.4 BUN 5 L 5 L Creatinine 0.53 0.50 Calcium 7.5 L 7.4 L* <Saeed Greene - 10/10/17 11:23> - Imaging Impressions Chest X-Ray 10/09/17 16:08 CONCLUSION: 1. Apparent right internal jugular central venous line with the tip projected near the base of the right neck. There is no pneumothorax. 2. Right-sided PICC line now noted. <John Joseph - 10/10/17 15:27> Impressions Chest X-Ray 10/09/17 16:08 CONCLUSION: 1. Apparent right internal jugular central venous line with the tip projected near the base of the right neck. There is no pneumothorax. 2. Right-sided PICC line now noted. <Saeed Greene - 10/10/17 11:23> Physical Exam Vital signs: Vital Signs 10/09/17 16:00 10/09/17 16:15 10/09/17 16:30 Temperature 98.1 F Pulse Rate 133 H 127 H 124 H Respiratory Rate 17 20 17 Blood Pressure 175/90 H 162/75 H 159/77 H Pulse Oximetry 96 98 100 10/09/17 21:00 10/10/17 00:06 10/10/17 01:00 Temperature 98.8 F Pulse Rate 122 H 103 H Respiratory Rate 18 18 Blood Pressure 142/82 H Pulse Oximetry 99 10/10/17 02:48 10/10/17 05:30 10/10/17 08:00 Temperature 98.8 F 97.9 F 97.3 F L Pulse Rate 70 101 H 127 H Respiratory Rate 20 20 17 Blood Pressure 125/85 155/72 H Pulse Oximetry 99 96 98 10/10/17 12:00 Temperature 97.9 F Pulse Rate 101 H Respiratory Rate 18 Blood Pressure 138/80 Pulse Oximetry 97 Intake & Output 10/09/17 10/10/17 10/10/17 18:59 06:59 18:59 Intake Total 1840 / 1840 1425 / 1425 1100 / 1100 Output Total 660 / 660 1999 / 1999 Balance 1180 / 1180 -575 / -575 1100 / 1100 Weight 107 kg Intake: IV 1000 / 1000 100 / 100 1100 / 1100 NS Inj 1,000 ML @ 100 mls/hr IV 1000 / 1000 1000 / 1000 .CONT .Q10H [facility] Rx#:[id number] Maxipime Inj 2,000 MG In NS Inj 100 / 100 100 / 100 100 ML @ 200 mls/hr IV.SIG Q8H [facility] Rx#:[id number] Oral 240 / 240 1325 / 1325 Anesthesia Amount 600 / 600 Intake (Blood Product) Amt 0 / 0 Rbc As-3 Leukoreduced Unit 0 / 0 [id number] Rbc As-3 Leukoreduced Unit 0 / 0 [id number] Output: Stool 400 / 400 Estimated Blood Loss 60 / 60 Urine Amount (Catheter) 600 / 600 1600 / 1600 Indwelling Urethral Catheter 600 / 600 1600 / 1600 Other: # Voids 2 # Incontinent Voids 1 Date of Last Bowel Movement 10/09/17 # Bowel Movements 1 <John Joseph - 10/10/17 15:27> Vital Signs 10/09/17 11:36 10/09/17 12:00 10/09/17 12:33 Temperature 98.4 F Pulse Rate 105 H 130 H 130 H Respiratory Rate 15 15 Blood Pressure 134/64 123/84 Pulse Oximetry 98 96 10/09/17 13:00 10/09/17 13:07 10/09/17 14:02 Temperature 98.4 F 97.5 F L Pulse Rate 126 H 141 H 126 H Respiratory Rate 15 10 L Blood Pressure 127/66 157/74 H Pulse Oximetry 96 10/09/17 16:00 10/09/17 16:15 10/09/17 16:30 Temperature 98.1 F Pulse Rate 133 H 127 H 124 H Respiratory Rate 17 20 17 Blood Pressure 175/90 H 162/75 H 159/77 H Pulse Oximetry 96 98 100 10/09/17 21:00 10/10/17 00:06 10/10/17 01:00 Temperature 98.8 F Pulse Rate 122 H 103 H Respiratory Rate 18 18 Blood Pressure 142/82 H Pulse Oximetry 99 10/10/17 02:48 10/10/17 05:30 10/10/17 08:00 Temperature 98.8 F 97.9 F Pulse Rate 70 101 H Respiratory Rate 20 20 14 Blood Pressure 125/85 Pulse Oximetry 99 96 Intake & Output 10/09/17 10/10/17 10/10/17 18:59 06:59 18:59 Intake Total 1840 / 1840 1425 / 1425 100 / 100 Output Total 660 / 660 1999 / 1999 Balance 1180 / 1180 -575 / -575 100 / 100 Weight 107 kg Intake: IV 1000 / 1000 100 / 100 100 / 100 NS Inj 1,000 ML @ 100 mls/hr IV 1000 / 1000 .CONT .Q10H [facility] Rx#:[id number] Maxipime Inj 2,000 MG In NS Inj 100 / 100 100 / 100 100 ML @ 200 mls/hr IV.SIG Q8H [facility] Rx#:[id number] Oral 240 / 240 1325 / 1325 Anesthesia Amount 600 / 600 Intake (Blood Product) Amt 0 / 0 Rbc As-3 Leukoreduced Unit 0 / 0 [id number] Rbc As-3 Leukoreduced Unit 0 / 0 [id number] Output: Stool 400 / 400 Estimated Blood Loss 60 / 60 Urine Amount (Catheter) 600 / 600 1600 / 1600 Indwelling Urethral Catheter 600 / 600 1600 / 1600 Other: # Voids 2 # Incontinent Voids 1 Date of Last Bowel Movement 10/09/17 # Bowel Movements 1 <Saeed Greene - 10/10/17 11:23> Narrative: GENERAL: Obese female laying in bed, no acute distress SKIN: Warm and dry. Wound VAC in place underneath pannus, appears clean/dry/ intact. Sanguinous drainage in vacuum container. HEAD: Normocephalic. EYES: No scleral icterus. No injection or drainage. NECK: Supple, trachea midline. No JVD or lymphadenopathy. CARDIOVASCULAR: Regular rate and rhythm without murmurs, gallops, or rubs. RESPIRATORY: Breath sounds equal bilaterally. No accessory muscle use. GASTROINTESTINAL: Abdomen soft, non-tender, nondistended. EXTREMITIES: Skin of L lower leg peeling from knee to ankle, erythematous. L pedal edema 1+. Trace R pedal edema. <Saeed Greene - 10/10/17 11:23> - Urinary Catheter Management Indwelling Urethral Catheter Cath placed during this visit: no <John Joseph - 10/10/17 15:27> yes, but has since been removed by the nurse <Saeed Greene - 10/10/17 11:23> Reason for continuing: Acute urinary retention <Saeed Greene - 10/10/17 11 :23> Insertion date: 10/09/17 <Saeed Greene 10/10/17 11:23> Insertion time: 14:00 <Saeed Greene - 10/10/17 11:23> Removal date: 10/05/17 <Saeed Greene 10/10/17 11:23> Removal time: 17:30 <Saeed Greene 10/10/17 11:23> Assessment and Plan - Assessment (1) Fungal infection of skin of abdomen Code(s): B36.9 - Superficial mycosis, unspecified Status: Acute (2) Cellulitis of knee, left Code(s): L03.116 - Cellulitis of left lower limb Status: Acute (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 - Infection and inflammatory reaction due to unspecified internal joint prosthesis, initial encounter Status: Suspected (4) Pneumonia Code(s): J18.9 - Pneumonia, unspecified organism Status: Resolved (5) Diarrhea Code(s): R19.7 - Diarrhea, unspecified Status: Resolved (6) Schizophrenia Code(s): F20.9 - Schizophrenia, unspecified Status: Chronic (7) Hypertension Code(s): I10 - Essential (primary) hypertension Status: Acute (8) Nutrition, metabolism, and development symptoms Code(s): R63.8 - Other symptoms and signs concerning food and fluid intake Status: Acute <John Joseph - 10/10/17 15:27> (1) Fungal infection of skin of abdomen Code(s): B36.9 - Superficial mycosis, unspecified Status: Acute Plan: Presented on admission with what appears to be transcutaneous rash under the abdominal folds and groin area. Skin wound now in perineum just proximal to the anus. -Surgical procedure 10/09, wound VAC applied -Continue current course of antibiotics (2) Cellulitis of knee, left Code(s): L03.116 - Cellulitis of left lower limb Status: Acute Plan: -Pt s/p 2 weeks of Keflex 500mg po -Knee looks improved from reported exam on admission. Minimal swelling. No erythema. Non tender to palpation. 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 She completed rehabilitation and was discharged home August 23. Patient was on approximately 2 weeks of po Keflex 500 mg. Per Ortho, examination of left knee shows no evidence of infection. - See plan above for left leg cellulitis (4) Pneumonia Code(s): J18.9 - Pneumonia, unspecified organism Status: Resolved Plan: Patient found to have left lower lobe consolidation on chest CTA. Lungs CTAB today. She remains afebrile, with O2 sat WNL on room air. Patient currently on Levaquin. -Continue to monitor vital signs -Continue incentive spirometry (5) Diarrhea Code(s): R19.7 - Diarrhea, unspecified Status: Resolved Plan: On admission patient presented with 3-day history of diarrhea in the setting of recent antibiotics. All bowel regimens held. Patient C. difficile negative. -Diarrhea has improved and decreasing frequency. Continue with probiotics. (6) Schizophrenia Code(s): F20.9 - Schizophrenia, unspecified Status: Chronic Plan: Patient with chronic history of schizophrenia. On admission patient presented with active hallucinations of seeing someone out to get her. -No hallucinations over night -Psych consulted- recommend Continue Abilify 30 mg for psychosis, okay to continue buspirone 30 mg, trazodone 100 mg and Cymbalta 60 mg -Hold anticholinergics per Psych (7) Hypertension Code(s): I10 - Essential (primary) hypertension Status: Acute Plan: Patient with history of HTN on home diltiazem. - cardizem dose previously decreased to 60mg TID due prior to c/o of lightheadedness upon standing and working with physical therapy -continue to monitor (8) Nutrition, metabolism, and development symptoms Code(s): R63.8 - Other symptoms and signs concerning food and fluid intake Status: Acute Plan: Fluids: 100mls/hr Electrolytes: Replete as needed Nutrition: cardiac diet, continue to monitor po intake, supplement with ensure DVT prophylaxis: SCDs Continue to work with PT to get OOB <Saeed Greene - 10/10/17 11:19> - Assessment and Plan . <Saeed Greene - 10/10/17 11:23> - Attending Attestation Patient examined independently and case discussed with resident physician I have read the above note and agree with the assessment/plan as discussed with me I was involved in all medical decision making for this patient John Joseph MD <John Joseph - 10/10/17 15:27> <Saeed Greene - Last Filed: 10/10/17 11:19> (4) Pneumonia Qualifiers: Pneumonia type: due to unspecified organism Laterality: left Lung location: lower lobe of lung Qualified Code(s): J18.1 - Lobar pneumonia, unspecified organism (7) Hypertension Qualifiers: Hypertension type: essential hypertension Qualified Code(s): I10 - Essential (primary) hypertension <JakeJohn sims - Last Filed: 10/10/17 15:27> (4) Pneumonia Qualifiers: Pneumonia type: due to unspecified organism Laterality: left Lung location: lower lobe of lung Qualified Code(s): J18.1 - Lobar pneumonia, unspecified organism (7) Hypertension Qualifiers: Hypertension type: essential hypertension Qualified Code(s): I10 - Essential (primary) hypertension <Saeed Greene - Last Filed: 10/10/17 11:19> (4) Pneumonia Qualifiers: Pneumonia type: due to unspecified organism Laterality: left Lung location: lower lobe of lung Qualified Code(s): J18.1 - Lobar pneumonia, unspecified organism (7) Hypertension Qualifiers: Hypertension type: essential hypertension Qualified Code(s): I10 - Essential (primary) hypertension <JakeJohn sims - Last Filed: 10/10/17 15:27> (4) Pneumonia Qualifiers: Pneumonia type: due to unspecified organism Laterality: left Lung location: lower lobe of lung Qualified Code(s): J18.1 - Lobar pneumonia, unspecified organism (7) Hypertension Qualifiers: Hypertension type: essential hypertension Qualified Code(s): I10 - Essential (primary) hypertension
--- NOTE | 2017-10-10 14:16 | P.PNGS ---
Subjective Patient reports: no new complaints (pain controlled vac good seal) Physical Exam Vital signs: Vital Signs 10/09/17 16:00 10/09/17 16:15 10/09/17 16:30 Temperature 98.1 F Pulse Rate 133 H 127 H 124 H Respiratory Rate 17 20 17 Blood Pressure 175/90 H 162/75 H 159/77 H Pulse Oximetry 96 98 100 10/09/17 21:00 10/10/17 00:06 10/10/17 01:00 Temperature 98.8 F Pulse Rate 122 H 103 H Respiratory Rate 18 18 Blood Pressure 142/82 H Pulse Oximetry 99 10/10/17 02:48 10/10/17 05:30 10/10/17 08:00 Temperature 98.8 F 97.9 F 97.3 F L Pulse Rate 70 101 H 127 H Respiratory Rate 20 20 17 Blood Pressure 125/85 155/72 H Pulse Oximetry 99 96 98 10/10/17 12:00 Temperature 97.9 F Pulse Rate 101 H Respiratory Rate 18 Blood Pressure 138/80 Pulse Oximetry 97 Intake & Output 10/09/17 10/10/17 10/10/17 18:59 06:59 18:59 Intake Total 1840 / 1840 1425 / 1425 1100 / 1100 Output Total 660 / 660 1999 / 2000 Balance 1180 / 1180 -575 / -575 1100 / 1100 Weight 107 kg Intake: IV 1000 / 1000 100 / 100 1100 / 1100 NS Inj 1,000 ML @ 100 mls/hr IV 1000 / 1000 1000 / 1000 .CONT .Q10H [facility] Rx#:[id number] Maxipime Inj 2,000 MG In NS Inj 100 / 100 100 / 100 100 ML @ 200 mls/hr IV.SIG Q8H [facility] Rx#:[id number] Oral 240 / 240 1325 / 1325 Anesthesia Amount 600 / 600 Intake (Blood Product) Amt 0 / 0 Rbc As-3 Leukoreduced Unit 0 / 0 [id number] Rbc As-3 Leukoreduced Unit 0 / 0 [id number] Output: Stool 400 / 400 Estimated Blood Loss 60 / 60 Urine Amount (Catheter) 600 / 600 1600 / 1600 Indwelling Urethral Catheter 600 / 600 1600 / 1600 Other: # Voids 2 # Incontinent Voids 1 Date of Last Bowel Movement 10/09/17 # Bowel Movements 1 - Routine Abdominal Exam Present: soft (vac in place c/d/i, good seal) - Urinary Catheter Management Indwelling Urethral Catheter Cath placed during this visit: yes, but has since been removed by the nurse Reason for continuing: Acute urinary retention Insertion date: 10/09/17 Insertion time: 14:00 Removal date: 10/05/17 Removal time: 17:30 Assessment and Plan - Plan 51 y/o f with multiple medical issues, skin lesions with drainage, failing medical non surgical tx s/p I and D with vac to abdomen and thighs PLAN abx reg diet pain control will plan to change vac in OR on sunday
[2017-10-11 04:08] LABS: Hematocrit 25.2 % (35.0-46.0); Hemoglobin 8.6 gm/dL (11.6-15.3); Mean Corpuscular Hemoglobin 27.7 pg (27.0-34.0); Mean Corpuscular Volume 81.3 fL (80.0-100.0); Mean Platelet Volume 7.3 fL (7.0-11.0); Platelet Count 294 th/mm3 (150-450); Red Cell Distribution Width 19.3 % (11.6-17.2); White Blood Count 22.4 th/mm3 (4.0-11.0)
[2017-10-11 04:38] LABS: Anion Gap 6 meq/L (5-15); Blood Urea Nitrogen 6 mg/dL (7-18); Calcium 7.2 mg/dL (8.5-10.1); Carbon Dioxide 23.3 meq/L (21.0-32.0); Chloride 113 meq/L (98-107); Glomerular Filtration Rate Greater Than 89 mL/min (>89); Glucose,Random 69 mg/dL (74-106); Potassium 4.5 meq/L (3.5-5.1); Sodium 142 meq/L (136-145)
[2017-10-11 05:01] LABS: Total Protein 4.3 g/dL (6.4-8.2)
[2017-10-11] MEDS: Sod Chloride 0.9% Inj 1,000 ML IV.CONT SCH ×2 (10:04→14:54)
[2017-10-11] MEDS: Folic Acid 1 MG Tablet PO SCH (10:07)
[2017-10-11] MEDS: dilTIAZem 60 MG Tablet PO SCH ×3 (10:08→17:31)
[2017-10-11] MEDS: traZODone 100 MG Tablet PO SCH (10:08)
[2017-10-11] MEDS: levoFLOXacin 750 MG Tablet PO SCH (10:08)
[2017-10-11] MEDS: Duloxetine 60 MG DR Capsule PO SCH (10:08)
[2017-10-11] MEDS: Pantoprazole Sodium 20 MG DR Tablet PO SCH (10:08)
[2017-10-11] MEDS: Heparin Central Flush 100 UNIT/ML 5 ML Vial IV.FLUSH SCH (10:09)
--- NOTE | 2017-10-11 10:37 | P.PNFP ---
Subjective Interval history: Patient seen and examined this morning. States she is feeling well, no acute events overnight. Denies nausea, vomiting, fever, chills abdominal pain, chest pain, shortness breath, lightheadedness, dizziness. Denies any audio/visual hallucinations. No other complaints at this time. <Saeed Greene - 10/11/17 10:37> Results - Labs Result diagrams: 10/11/17 04:00 10/11/17 04:00 <John Joseph - 10/11/17 17:55> Abnormal lab results 10/11/17 10/11/17 Range/Units 04:00 04:00 WBC 22.4 H (4.0-11.0) th/mm3 RBC 3.10 L (4.00-5.30) mil/mm3 Hgb 8.6 L (11.6-15.3) gm/dL Hct 25.2 L (35.0-46.0) % RDW 19.3 H (11.6-17.2) % Chloride 113 H (98-107) meq/L BUN 6 L (7-18) mg/dL Creatinine 0.48 L (0.50-1.00) mg/dL Random Glucose 69 L (74-106) mg/dL Calcium 7.2 L* (8.5-10.1) mg/dL Total Protein 4.3 L (6.4-8.2) g/dL Short CBC 10/11/17 Range/Units 04:00 WBC 22.4 H (4.0-11.0) th/mm3 Hgb 8.6 L (11.6-15.3) gm/dL Hct 25.2 L (35.0-46.0) % Plt Count 294 (150-450) th/mm3 [facility] 10/11/17 04:00 Sodium 142 Potassium 4.5 Chloride 113 H Carbon Dioxide 23.3 BUN 6 L Creatinine 0.48 L Calcium 7.2 L* <John Joseph - 10/11/17 17:55> Abnormal lab results 10/11/17 10/11/17 Range/Units 04:00 04:00 WBC 22.4 H (4.0-11.0) th/mm3 RBC 3.10 L (4.00-5.30) mil/mm3 Hgb 8.6 L (11.6-15.3) gm/dL Hct 25.2 L (35.0-46.0) % RDW 19.3 H (11.6-17.2) % Chloride 113 H (98-107) meq/L BUN 6 L (7-18) mg/dL Creatinine 0.48 L (0.50-1.00) mg/dL Random Glucose 69 L (74-106) mg/dL Calcium 7.2 L* (8.5-10.1) mg/dL Total Protein 4.3 L (6.4-8.2) g/dL Short CBC 10/11/17 Range/Units 04:00 WBC 22.4 H (4.0-11.0) th/mm3 Hgb 8.6 L (11.6-15.3) gm/dL Hct 25.2 L (35.0-46.0) % Plt Count 294 (150-450) th/mm3 BMP 10/11/17 04:00 Sodium 142 Potassium 4.5 Chloride 113 H Carbon Dioxide 23.3 BUN 6 L Creatinine 0.48 L Calcium 7.2 L* <Saeed Greene A - 10/11/17 10:37> Physical Exam Vital signs: Vital Signs 10/10/17 20:00 10/10/17 21:00 10/11/17 00:00 Temperature 98.4 F 97.5 F L Pulse Rate 118 H 107 H 126 H Respiratory Rate 20 20 Blood Pressure 166/78 H 109/77 Pulse Oximetry 98 96 10/11/17 01:00 10/11/17 04:00 10/11/17 04:01 Temperature 97.2 F L Pulse Rate 103 H 126 H Respiratory Rate 18 17 Blood Pressure 95/49 L Pulse Oximetry 96 10/11/17 08:42 10/11/17 09:00 10/11/17 12:49 Temperature 97.7 F 97.9 F Pulse Rate 120 H 105 H 120 H Respiratory Rate 16 18 Blood Pressure 146/97 H 111/68 Pulse Oximetry 100 96 10/11/17 13:00 Temperature Pulse Rate 109 H Respiratory Rate Blood Pressure Pulse Oximetry Intake & Output 10/10/17 10/11/17 10/11/17 18:59 06:59 18:59 Intake Total 1979 / 1979 2580 / 2580 540 / 540 Output Total 700 / 700 1160 / 1160 650 / 650 Balance 1280 / 1280 1420 / 1420 -110 / -110 Weight 122.1 kg Intake: IV 1100 / 1100 1100 / 1100 300 / 300 NS Inj 1,000 ML @ 100 mls/hr IV 1000 / 1000 1000 / 1000 .CONT .Q10H [facility] Rx#:[id number] Maxipime Inj 2,000 MG In NS Inj 100 / 100 100 / 100 300 / 300 100 ML @ 200 mls/hr IV.SIG Q8H [facility] Rx#:[id number] Oral 880 / 880 880 / 880 240 / 240 Anesthesia Amount 600 / 600 Output: Urine 700 / 700 700 / 700 650 / 650 Stool 400 / 400 Estimated Blood Loss 60 / 60 Other: # Voids 2 # Incontinent Voids 1 Date of Last Bowel Movement 10/09/17 10/09/17 # Bowel Movements 1 1 # Incontinent Bowel Movements 2 # Emeses 1 <John Joseph - 10/11/17 17:55> Vital Signs 10/10/17 12:00 10/10/17 17:00 10/10/17 20:00 Temperature 97.9 F 98.4 F Pulse Rate 101 H 101 H 118 H Respiratory Rate 18 20 Blood Pressure 138/80 166/78 H Pulse Oximetry 97 98 10/10/17 21:00 10/11/17 00:00 10/11/17 01:00 Temperature 97.5 F L Pulse Rate 107 H 126 H 103 H Respiratory Rate 20 Blood Pressure 109/77 Pulse Oximetry 96 10/11/17 04:00 10/11/17 04:01 10/11/17 08:42 Temperature 97.2 F L 97.7 F Pulse Rate 126 H 120 H Respiratory Rate 18 17 16 Blood Pressure 95/49 L 146/97 H Pulse Oximetry 96 100 Intake & Output 10/10/17 10/11/17 10/11/17 18:59 06:59 18:59 Intake Total 1979 / 1979 1580 / 1580 340 / 340 Output Total 700 / 700 1160 / 1160 650 / 650 Balance 1280 / 1280 420 / 420 -310 / -310 Weight 122.1 kg Intake: IV 1100 / 1100 100 / 100 100 / 100 NS Inj 1,000 ML @ 100 mls/hr IV 1000 / 1000 .CONT .Q10H [facility] Rx#:[id number] Maxipime Inj 2,000 MG In NS Inj 100 / 100 100 / 100 100 / 100 100 ML @ 200 mls/hr IV.SIG Q8H [facility] Rx#:[id number] Oral 880 / 880 880 / 880 240 / 240 Anesthesia Amount 600 / 600 Output: Urine 700 / 700 700 / 700 650 / 650 Stool 400 / 400 Estimated Blood Loss 60 / 60 Other: # Voids 2 # Incontinent Voids 1 Date of Last Bowel Movement 10/09/17 10/09/17 # Bowel Movements 1 1 # Incontinent Bowel Movements 2 # Emeses 1 <Saeed Greene - 10/11/17 10:37> Narrative: GENERAL: Obese female laying in bed, no acute distress SKIN: Warm and dry. Wound VAC in place underneath pannus, appears clean/dry/ intact. Sanguinous drainage in vacuum container. HEAD: Normocephalic. EYES: No scleral icterus. No injection or drainage. NECK: Supple, trachea midline. No JVD or lymphadenopathy. CARDIOVASCULAR: Regular rate and rhythm without murmurs, gallops, or rubs. RESPIRATORY: Breath sounds equal bilaterally. No accessory muscle use. GASTROINTESTINAL: Abdomen soft, non-tender, nondistended. EXTREMITIES: Skin of L lower leg peeling from knee to ankle, erythematous. L pedal edema 1+. Trace R pedal edema. <Saeed Greene 10/11/17 10:37> - Urinary Catheter Management Indwelling Urethral Catheter Cath placed during this visit: no <John Joseph - 10/11/17 17:55> yes, but has since been removed by the nurse <Saeed Greene 10/11/17 10:37> Reason for continuing: Severe pressure ulcer/wound <Saeed Greene 10:37> Insertion date: 10/09/17 <Saeed Greene 10/11/17 10:37> Insertion time: 14:00 <Saeed Greene 10/11/17 10:37> Removal date: 10/05/17 <Saeed Greene 10/11/17 10:37> Removal time: 17:30 <Saeed Greene 10/11/17 10:37> Assessment and Plan - Assessment (1) Fungal infection of skin of abdomen Code(s): B36.9 - Superficial mycosis, unspecified Status: Acute (2) Cellulitis of knee, left Code(s): L03.116 - Cellulitis of left lower limb Status: Acute (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 - Infection and inflammatory reaction due to unspecified internal joint prosthesis, initial encounter Status: Suspected (4) Pneumonia Code(s): J18.9 - Pneumonia, unspecified organism Status: Resolved (5) Diarrhea Code(s): R19.7 - Diarrhea, unspecified Status: Resolved (6) Schizophrenia Code(s): F20.9 - Schizophrenia, unspecified Status: Chronic (7) Hypertension Code(s): I10 - Essential (primary) hypertension Status: Acute (8) Nutrition, metabolism, and development symptoms Code(s): R63.8 - Other symptoms and signs concerning food and fluid intake Status: Acute <John Joseph - 10/11/17 17:55> (1) Fungal infection of skin of abdomen Code(s): B36.9 - Superficial mycosis, unspecified Status: Acute Plan: Presented on admission with what appears to be transcutaneous rash under the abdominal folds and groin area. Skin wound now in perineum just proximal to the anus. -Surgical procedure 10/09, wound VAC applied. -Surgery plans to change wound VAC on 10/12 -Continue current course of antibiotics (2) Cellulitis of knee, left Code(s): L03.116 - Cellulitis of left lower limb Status: Acute Plan: -Pt s/p 2 weeks of Keflex 500mg po -Knee looks improved from reported exam on admission. Minimal swelling. No erythema. Non tender to palpation. 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 She completed rehabilitation and was discharged home August 23. Patient was on approximately 2 weeks of po Keflex 500 mg. Per Ortho, examination of left knee shows no evidence of infection. - See plan above for left leg cellulitis (4) Pneumonia Code(s): J18.9 - Pneumonia, unspecified organism Status: Resolved Plan: Patient found to have left lower lobe consolidation on chest CTA. Lungs CTAB today. She remains afebrile, with O2 sat WNL on room air. Patient currently on Levaquin. -Continue to monitor vital signs -Continue incentive spirometry (5) Diarrhea Code(s): R19.7 - Diarrhea, unspecified Status: Resolved Plan: On admission patient presented with 3-day history of diarrhea in the setting of recent antibiotics. All bowel regimens held. Patient C. difficile negative. -Diarrhea has improved and decreasing frequency. Continue with probiotics. (6) Schizophrenia Code(s): F20.9 - Schizophrenia, unspecified Status: Chronic Plan: Patient with chronic history of schizophrenia. On admission patient presented with active hallucinations of seeing someone out to get her. -No hallucinations over night -Psych consulted- recommend Continue Abilify 30 mg for psychosis, okay to continue buspirone 30 mg, trazodone 100 mg and Cymbalta 60 mg -Hold anticholinergics per Psych (7) Hypertension Code(s): I10 - Essential (primary) hypertension Status: Acute Plan: Patient with history of HTN on home diltiazem. - cardizem dose previously decreased to 60mg TID due prior to c/o of lightheadedness upon standing and working with physical therapy -continue to monitor (8) Nutrition, metabolism, and development symptoms Code(s): R63.8 - Other symptoms and signs concerning food and fluid intake Status: Acute Plan: Fluids: 100mls/hr Electrolytes: Replete as needed Nutrition: cardiac diet, continue to monitor po intake, supplement with ensure DVT prophylaxis: SCDs Continue to work with PT to get OOB <Saeed Greene - 10/11/17 10:33> - Assessment and Plan . <Saeed Greene - 10/11/17 10:37> - Attending Attestation Patient examined independently and case discussed with resident physicians I have read the above note and agree with the assessment/plan as discussed with me I was involved in all medical decision making for this patient John Joseph MD <John Joseph - 10/11/17 17:55> <Saeed Greene - Last Filed: 10/11/17 10:33> (4) Pneumonia Qualifiers: Pneumonia type: due to unspecified organism Laterality: left Lung location: lower lobe of lung Qualified Code(s): J18.1 - Lobar pneumonia, unspecified organism (7) Hypertension Qualifiers: Hypertension type: essential hypertension Qualified Code(s): I10 - Essential (primary) hypertension <John Joseph - Last Filed: 10/11/17 17:55> (4) Pneumonia Qualifiers: Pneumonia type: due to unspecified organism Laterality: left Lung location: lower lobe of lung Qualified Code(s): J18.1 - Lobar pneumonia, unspecified organism (7) Hypertension Qualifiers: Hypertension type: essential hypertension Qualified Code(s): I10 - Essential (primary) hypertension <Saeed Greene - Last Filed: 10/11/17 10:33> (4) Pneumonia Qualifiers: Pneumonia type: due to unspecified organism Laterality: left Lung location: lower lobe of lung Qualified Code(s): J18.1 - Lobar pneumonia, unspecified organism (7) Hypertension Qualifiers: Hypertension type: essential hypertension Qualified Code(s): I10 - Essential (primary) hypertension <John Joseph - Last Filed: 07/26/18 17:55> (4) Pneumonia Qualifiers: Pneumonia type: due to unspecified organism Laterality: left Lung location: lower lobe of lung Qualified Code(s): J18.1 - Lobar pneumonia, unspecified organism (7) Hypertension Qualifiers: Hypertension type: essential hypertension Qualified Code(s): I10 - Essential (primary) hypertension
--- NOTE | 2017-10-11 11:43 | P.PNGS ---
Subjective Patient reports: tolerating a regular diet (no fevers, some pain at incision sites, some bleeding overnight) Physical Exam Vital signs: Vital Signs 10/10/17 12:00 10/10/17 17:00 10/10/17 20:00 Temperature 97.9 F 98.4 F Pulse Rate 101 H 101 H 118 H Respiratory Rate 18 20 Blood Pressure 138/80 166/78 H Pulse Oximetry 97 98 10/10/17 21:00 10/11/17 00:00 10/11/17 01:00 Temperature 97.5 F L Pulse Rate 107 H 126 H 103 H Respiratory Rate 20 Blood Pressure 109/77 Pulse Oximetry 96 10/11/17 04:00 10/11/17 04:01 10/11/17 08:42 Temperature 97.2 F L 97.7 F Pulse Rate 126 H 120 H Respiratory Rate 18 17 16 Blood Pressure 95/49 L 146/97 H Pulse Oximetry 96 100 Intake & Output 10/10/17 10/11/17 10/11/17 18:59 06:59 18:59 Intake Total 1979 / 1979 1580 / 1580 340 / 340 Output Total 700 / 700 1160 / 1160 650 / 650 Balance 1280 / 1280 420 / 420 -310 / -310 Weight 122.1 kg Intake: IV 1100 / 1100 100 / 100 100 / 100 NS Inj 1,000 ML @ 100 mls/hr IV 1000 / 1000 .CONT .Q10H [facility] Rx#:[id number] Maxipime Inj 2,000 MG In NS Inj 100 / 100 100 / 100 100 / 100 100 ML @ 200 mls/hr IV.SIG Q8H [facility] Rx#:[id number] Oral 880 / 880 880 / 880 240 / 240 Anesthesia Amount 600 / 600 Output: Urine 700 / 700 700 / 700 650 / 650 Stool 400 / 400 Estimated Blood Loss 60 / 60 Other: # Voids 2 # Incontinent Voids 1 Date of Last Bowel Movement 10/09/17 10/09/17 # Bowel Movements 1 1 # Incontinent Bowel Movements 2 # Emeses 1 - Routine Abdominal Exam Present: soft (inicsions with vac good sxn, serosang sanguinous drainage on dressing) - Urinary Catheter Management Indwelling Urethral Catheter Cath placed during this visit: yes, but has since been removed by the nurse Reason for continuing: Severe pressure ulcer/wound Insertion date: 10/09/17 Insertion time: 14:00 Removal date: 10/05/17 Removal time: 17:30 Assessment and Plan - Plan 51 y/o f with multiple medical issues, skin lesions with drainage, failing medical non surgical tx s/p I and D with vac to abdomen and thighs PLAN abx reg diet pain control will plan to change vac in OR tomorrow reinforce dressing appears drainage is controlled npo after mn
[2017-10-12] MEDS: Sod Chloride 0.9% Inj 1,000 ML IV.CONT SCH ×2 (02:12→12:26)
[2017-10-12] MEDS ORDERED: Chlorhexidine Gluconate 2% 1 Pack (2 Cloths) TOPICAL SCH (06:15)
[2017-10-12 06:30] LABS: Baso # (Auto) 0.1 th/mm3 (0.0-0.2); Baso % (Auto) 0.5 % (0.0-2.0); Eos # (Auto) 0.2 th/mm3 (0.0-0.4); Eos % (Auto) 0.7 % (0.0-4.0); Hemoglobin 8.5 gm/dL (11.6-15.3); Lymph # (Auto) 1.8 th/mm3 (1.0-4.8); Lymph % (Auto) 7.7 % (9.0-44.0); Mean Corpuscular HGB Conc 34.1 % (32.0-36.0); Mean Corpuscular Hemoglobin 27.8 pg (27.0-34.0); Mean Corpuscular Volume 81.5 fL (80.0-100.0); Mean Platelet Volume 7.1 fL (7.0-11.0); Mono # (Auto) 1.8 th/mm3 (0.0-0.9); Mono % (Auto) 7.9 % (0.0-8.0); Neut # (Auto) 19.4 th/mm3 (1.8-7.7); Neut % (Auto) 83.2 % (16.0-70.0); Platelet Count 311 th/mm3 (150-450); Red Blood Count 3.07 mil/mm3 (4.00-5.30); Red Cell Distribution Width 19.1 % (11.6-17.2); White Blood Count 23.3 th/mm3 (4.0-11.0)
[2017-10-12 06:58] LABS: Anion Gap 8 meq/L (5-15); Blood Urea Nitrogen 5 mg/dL (7-18); Calcium 7.3 mg/dL (8.5-10.1); Carbon Dioxide 22.2 meq/L (21.0-32.0); Chloride 111 meq/L (98-107); Glomerular Filtration Rate Greater Than 89 mL/min (>89); Glucose,Random 79 mg/dL (74-106); Potassium 4.3 meq/L (3.5-5.1); Sodium 141 meq/L (136-145)
[2017-10-12] MEDS ORDERED: Sodium Chlor 0.9% Inj 500 ML IV.SIG SCH (07:00)
[2017-10-12 07:22] LABS: Total Protein 4.6 g/dL (6.4-8.2)
[2017-10-12 07:49] LABS: Acanthocytes Occ; Ovalocytes 1+; Platelet Estimate Normal (Normal); Platelet Morphology Normal (Normal)
[2017-10-12] MEDS: dilTIAZem 60 MG Tablet PO SCH ×3 (09:10→17:42)
[2017-10-12] MEDS: Duloxetine 60 MG DR Capsule PO SCH (09:10)
[2017-10-12] MEDS: Pantoprazole Sodium 20 MG DR Tablet PO SCH (09:10)
[2017-10-12] MEDS: levoFLOXacin 750 MG Tablet PO SCH (09:10)
[2017-10-12] MEDS: traZODone 100 MG Tablet PO SCH (09:10)
[2017-10-12] MEDS: Folic Acid 1 MG Tablet PO SCH (09:11)
[2017-10-12] MEDS: Heparin Central Flush 100 UNIT/ML 5 ML Vial IV.FLUSH SCH (09:16)
--- NOTE | 2017-10-12 09:38 | P.PNFP ---
Subjective Interval history: Patient seen and examined today. No acute events overnight. Denies nausea, vomiting fever, chills, abdominal pain, chest pain, shortness of breath. Denies any other pains at this time. Denies any audio or visual hallucinations. <RamonaSaeedMartín - 10/12/17 09:37> Results - Labs Result diagrams: 10/12/17 06:00 10/12/17 06:00 <John Joseph - 10/12/17 13:15> Abnormal lab results 10/12/17 10/12/17 10/12/17 Range/Units 06:00 06:00 08:17 WBC 23.3 H (4.0-11.0) th/mm3 RBC 3.07 L (4.00-5.30) mil/mm3 Hgb 8.5 L (11.6-15.3) gm/dL Hct 25.0 L (35.0-46.0) % RDW 19.1 H (11.6-17.2) % Neut % (Auto) 83.2 H (16.0-70.0) % Lymph % (Auto) 7.7 L (9.0-44.0) % Neut # (Auto) 19.4 H (1.8-7.7) th/mm3 [place] # (Auto) 1.8 H (0.0-0.9) th/mm3 Ovalocytes 1+ H (None) Acanthocytes (Spur) Occ H (None) Chloride 111 H (98-107) meq/L BUN 5 L (7-18) mg/dL Creatinine 0.45 L (0.50-1.00) mg/dL Calcium 7.3 L* (8.5-10.1) mg/dL Total Protein 4.6 L (6.4-8.2) g/dL MTS Gel Crossmatch See Detail Short CBC 10/12/17 Range/Units 06:00 WBC 23.3 H (4.0-11.0) th/mm3 Hgb 8.5 L (11.6-15.3) gm/dL Hct 25.0 L (35.0-46.0) % Plt Count 311 (150-450) th/mm3 BMP 10/12/17 06:00 Sodium 141 Potassium 4.3 Chloride 111 H Carbon Dioxide 22.2 BUN 5 L Creatinine 0.45 L Calcium 7.3 L* <John Joseph - 10/12/17 13:15> Abnormal lab results 10/12/17 10/12/17 Range/Units 06:00 06:00 WBC 23.3 H (4.0-11.0) th/mm3 RBC 3.07 L (4.00-5.30) mil/mm3 Hgb 8.5 L (11.6-15.3) gm/dL Hct 25.0 L (35.0-46.0) % RDW 19.1 H (11.6-17.2) % Neut % (Auto) 83.2 H (16.0-70.0) % Lymph % (Auto) 7.7 L (9.0-44.0) % Neut # (Auto) 19.4 H (1.8-7.7) th/mm3 [place] # (Auto) 1.8 H (0.0-0.9) th/mm3 Ovalocytes 1+ H (None) Acanthocytes (Spur) Occ H (None) Chloride 111 H (98-107) meq/L BUN 5 L (7-18) mg/dL Creatinine 0.45 L (0.50-1.00) mg/dL Calcium 7.3 L* (8.5-10.1) mg/dL Total Protein 4.6 L (6.4-8.2) g/dL Short CBC 10/12/17 Range/Units 06:00 WBC 23.3 H (4.0-11.0) th/mm3 Hgb 8.5 L (11.6-15.3) gm/dL Hct 25.0 L (35.0-46.0) % Plt Count 311 (150-450) th/mm3 [facility] 10/12/17 06:00 Sodium 141 Potassium 4.3 Chloride 111 H Carbon Dioxide 22.2 BUN 5 L Creatinine 0.45 L Calcium 7.3 L* <Saeed Greene - 10/12/17 09:37> Physical Exam Vital signs: Vital Signs 10/11/17 20:00 10/11/17 21:00 10/12/17 00:00 Temperature 97.9 F 98.6 F Pulse Rate 119 H 115 H 122 H Respiratory Rate 18 18 Blood Pressure 116/56 L 138/74 Pulse Oximetry 94 L 98 10/12/17 01:00 07/27/18 04:00 10/12/17 08:00 Temperature 98.1 F 98.1 F Pulse Rate 108 H 129 H 124 H Respiratory Rate 18 18 Blood Pressure 134/74 139/88 Pulse Oximetry 97 10/12/17 09:00 Temperature Pulse Rate 120 H Respiratory Rate Blood Pressure Pulse Oximetry Intake & Output 10/11/17 10/12/17 10/12/17 18:59 06:59 18:59 Intake Total 540 / 540 1200 / 1200 Output Total 650 / 650 900 / 900 Balance -110 / -110 1200 / 1200 -900 / -900 Intake: IV 300 / 300 1200 / 1200 NS Inj 1,000 ML @ 100 mls/hr IV 1000 / 1000 .CONT .Q10H [place] Rx#:[id number] Maxipime Inj 2,000 MG In NS Inj 300 / 300 200 / 200 100 ML @ 200 mls/hr IV.SIG Q8H [place] Rx#:[id number] Oral 240 / 240 Output: Urine 650 / 650 900 / 900 <Jake,John - 10/12/17 13:15> Vital Signs 10/11/17 12:49 10/11/17 13:00 10/11/17 20:00 Temperature 97.9 F 97.9 F Pulse Rate 120 H 109 H 119 H Respiratory Rate 18 18 Blood Pressure 111/68 116/56 L Pulse Oximetry 96 94 L 10/11/17 21:00 10/12/17 00:00 10/12/17 01:00 Temperature 98.6 F Pulse Rate 115 H 122 H 108 H Respiratory Rate 18 Blood Pressure 138/74 Pulse Oximetry 98 10/12/17 04:00 10/12/17 08:00 10/12/17 09:00 Temperature 98.1 F 98.1 F Pulse Rate 129 H 124 H 120 H Respiratory Rate 18 18 Blood Pressure 134/74 139/88 Pulse Oximetry 97 Intake & Output 10/11/17 10/12/17 10/12/17 18:59 06:59 18:59 Intake Total 540 / 540 1200 / 1200 Output Total 650 / 650 900 / 900 Balance -110 / -110 1200 / 1200 -900 / -900 Intake: IV 300 / 300 1200 / 1200 NS Inj 1,000 ML @ 100 mls/hr IV 1000 / 1000 .CONT .Q10H [facility] Rx#:[id number] Maxipime Inj 2,000 MG In NS Inj 300 / 300 200 / 200 100 ML @ 200 mls/hr IV.SIG Q8H [place] Rx#:[id number] Oral 240 / 240 Output: Urine 650 / 650 900 / 900 <Saeed Greene - 10/12/17 09:37> Narrative: GENERAL: Obese female laying in bed, no acute distress SKIN: Warm and dry. Wound VAC in place underneath pannus, appears clean/dry/ intact. Sanguinous drainage in vacuum container. HEAD: Normocephalic. EYES: No scleral icterus. No injection or drainage. NECK: Supple, trachea midline. No JVD or lymphadenopathy. CARDIOVASCULAR: Regular rate and rhythm without murmurs, gallops, or rubs. RESPIRATORY: Breath sounds equal bilaterally. No accessory muscle use. GASTROINTESTINAL: Abdomen soft, non-tender, nondistended. EXTREMITIES: Skin of L lower leg peeling from knee to ankle, erythematous. L pedal edema 1+. Trace R pedal edema. <Saeed Greene 10/12/17 09:37> - Urinary Catheter Management Indwelling Urethral Catheter Cath placed during this visit: no <John Joseph 10/12/17 13:15> yes, but has since been removed by the nurse <Saeed Greene - 10/12/17 09:37> Reason for continuing: Acute urinary retention <Saeed Greene 10/12/17 09 :37> Insertion date: 10/09/17 <Saeed Greene 10/12/17 09:37> Insertion time: 14:00 <Saeed Greene 10/12/17 09:37> Removal date: 10/05/17 <Saeed Greene 10/12/17 09:37> Removal time: 17:30 <Saeed Greene 10/12/17 09:37> Assessment and Plan - Assessment (1) Fungal infection of skin of abdomen Code(s): B36.9 - Superficial mycosis, unspecified Status: Acute (2) Cellulitis of knee, left Code(s): L03.116 - Cellulitis of left lower limb Status: Acute (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 - Infection and inflammatory reaction due to unspecified internal joint prosthesis, initial encounter Status: Suspected (4) Pneumonia Code(s): J18.9 - Pneumonia, unspecified organism Status: Resolved (5) Diarrhea Code(s): R19.7 - Diarrhea, unspecified Status: Resolved (6) Schizophrenia Code(s): F20.9 - Schizophrenia, unspecified Status: Chronic (7) Hypertension Code(s): I10 - Essential (primary) hypertension Status: Acute (8) Nutrition, metabolism, and development symptoms Code(s): R63.8 - Other symptoms and signs concerning food and fluid intake Status: Acute <John Joseph - 10/12/17 13:15> (1) Fungal infection of skin of abdomen Code(s): B36.9 - Superficial mycosis, unspecified Status: Acute Plan: Presented on admission with what appears to be transcutaneous rash under the abdominal folds and groin area. Skin wound now in perineum just proximal to the anus. -Surgical procedure 10/09, wound VAC applied. -Surgery plans to change wound VAC today -Continue current course of antibiotics (2) Cellulitis of knee, left Code(s): L03.116 - Cellulitis of left lower limb Status: Acute Plan: -Pt s/p 2 weeks of Keflex 500mg po -Knee looks improved from reported exam on admission. Minimal swelling. No erythema. Non tender to palpation. 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 She completed rehabilitation and was discharged home August 23. Patient was on approximately 2 weeks of po Keflex 500 mg. Per Ortho, examination of left knee shows no evidence of infection. - See plan above for left leg cellulitis (4) Pneumonia Code(s): J18.9 - Pneumonia, unspecified organism Status: Resolved Plan: Patient found to have left lower lobe consolidation on chest CTA. Lungs CTAB today. She remains afebrile, with O2 sat WNL on room air. Patient currently on Levaquin. -Continue to monitor vital signs -Continue incentive spirometry (5) Diarrhea Code(s): R19.7 - Diarrhea, unspecified Status: Resolved Plan: On admission patient presented with 3-day history of diarrhea in the setting of recent antibiotics. All bowel regimens held. Patient C. difficile negative. -Diarrhea has improved and decreasing frequency. Continue with probiotics. (6) Schizophrenia Code(s): F20.9 - Schizophrenia, unspecified Status: Chronic Plan: Patient with chronic history of schizophrenia. On admission patient presented with active hallucinations of seeing someone out to get her. -No hallucinations over night -Psych consulted- recommend Continue Abilify 30 mg for psychosis, okay to continue buspirone 30 mg, trazodone 100 mg and Cymbalta 60 mg -Hold anticholinergics per Psych (7) Hypertension Code(s): I10 - Essential (primary) hypertension Status: Acute Plan: Patient with history of HTN on home diltiazem. - cardizem dose previously decreased to 60mg TID due prior to c/o of lightheadedness upon standing and working with physical therapy -continue to monitor (8) Nutrition, metabolism, and development symptoms Code(s): R63.8 - Other symptoms and signs concerning food and fluid intake Status: Acute Plan: Fluids: 100mls/hr Electrolytes: Replete as needed Nutrition: cardiac diet, continue to monitor po intake, supplement with ensure DVT prophylaxis: SCDs Continue to work with PT to get OOB <Saeed Greene - 10/12/17 09:36> - Assessment and Plan . <Saeed Greene - 10/12/17 09:37> - Attending Attestation I have independently examined the patient and discussed the case with resident physicians I have read the above note and agree with the assessment/plan as discussed with me I was involved in all medical decision making for this patient John Joseph MD <John Joseph - 10/12/17 13:15> <Saeed Greene - Last Filed: 10/12/17 09:36> (4) Pneumonia Qualifiers: Pneumonia type: due to unspecified organism Laterality: left Lung location: lower lobe of lung Qualified Code(s): J18.1 - Lobar pneumonia, unspecified organism (7) Hypertension Qualifiers: Hypertension type: essential hypertension Qualified Code(s): I10 - Essential (primary) hypertension <Jake,John - Last Filed: 10/12/17 13:15> (4) Pneumonia Qualifiers: Pneumonia type: due to unspecified organism Laterality: left Lung location: lower lobe of lung Qualified Code(s): J18.1 - Lobar pneumonia, unspecified organism (7) Hypertension Qualifiers: Hypertension type: essential hypertension Qualified Code(s): I10 - Essential (primary) hypertension <Saeed Greene - Last Filed: 10/12/17 09:36> (4) Pneumonia Qualifiers: Pneumonia type: due to unspecified organism Laterality: left Lung location: lower lobe of lung Qualified Code(s): J18.1 - Lobar pneumonia, unspecified organism (7) Hypertension Qualifiers: Hypertension type: essential hypertension Qualified Code(s): I10 - Essential (primary) hypertension <JakeJohn - Last Filed: 10/12/17 13:15> (4) Pneumonia Qualifiers: Pneumonia type: due to unspecified organism Laterality: left Lung location: lower lobe of lung Qualified Code(s): J18.1 - Lobar pneumonia, unspecified organism (7) Hypertension Qualifiers: Hypertension type: essential hypertension Qualified Code(s): I10 - Essential (primary) hypertension
[2017-10-12] MEDS ORDERED: Phenylephrine/NS 1000 MCG/10ML Syringe IV.PUSH ONE (11:00)
[2017-10-12] MEDS ORDERED: Lidocaine PF 1% Inj 5 ML Syringe INFILTRATN ONE (11:00)
[2017-10-12] MEDS ORDERED: Normosol-R pH 7.4 Inj 1,000 ML IV.CONT ONE (11:00)
[2017-10-12] MEDS ORDERED: Succinylcholine Inj 100 MG/5 ML Syringe IV.PUSH ONE (11:00)
[2017-10-12] MEDS ORDERED: Sugammadex Inj 200 MG/2 ML Vial IV.PUSH ONE (12:47)
--- NOTE | 2017-10-12 12:49 | P.OP ---
- Preoperative Diagnosis (1) Skin ulcer of abdominal wall, limited to breakdown of skin - Postoperative Diagnosis (1) Skin ulcer of abdominal wall, limited to breakdown of skin Date of procedure: 10/12/17 Procedure: I and d with vac change abdomen and bilateral thighs Anesthesia: RAMYA Surgeon: Jose Schneider MD Estimated blood loss (mL): 20 Pathology: none sent Operation and Findings: good hemostasis
[2017-10-12] MEDS ORDERED: Esmolol Bolus Inj 100 MG/10 ML Vial IV.PUSH ONE (14:50)
[2017-10-12] MEDS ORDERED: Metoprolol Inj 5 MG/5 ML Vial ONE (14:54)
[2017-10-12] MEDS ORDERED: fentaNYL Citrate Inj 100 MCG/2 ML Ampul ONE (15:02)
[2017-10-12] MEDS: *morphine SULFATE 4 MG/ML PERIprocedure ONLY ONE ×2 (15:26→15:49)
[2017-10-12] MEDS: Metoprolol Tartrate 25 MG Tablet PO SCH (20:48)
[2017-10-13 06:41] LABS: Hematocrit 26.3 % (35.0-46.0); Hemoglobin 8.7 gm/dL (11.6-15.3); Mean Corpuscular Hemoglobin 26.5 pg (27.0-34.0); Mean Corpuscular Volume 80.3 fL (80.0-100.0); Mean Platelet Volume 7.1 fL (7.0-11.0); Platelet Count 292 th/mm3 (150-450); Red Blood Count 3.27 mil/mm3 (4.00-5.30); Red Cell Distribution Width 18.8 % (11.6-17.2); White Blood Count 25.6 th/mm3 (4.0-11.0)
[2017-10-13 07:21] LABS: Anion Gap 5 meq/L (5-15); Blood Urea Nitrogen 6 mg/dL (7-18); Calcium 7.4 mg/dL (8.5-10.1); Carbon Dioxide 23.6 meq/L (21.0-32.0); Chloride 112 meq/L (98-107); Glomerular Filtration Rate Greater Than 89 mL/min (>89); Glucose,Random 71 mg/dL (74-106); Potassium 4.2 meq/L (3.5-5.1); Sodium 141 meq/L (136-145)
[2017-10-13 07:51] LABS: Total Protein 4.4 g/dL (6.4-8.2)
--- NOTE | 2017-10-13 09:07 | MP ---
cc: Jose Schneider MD DATE OF OPERATION: 10/12/2017 DATE OF PROCEDURE: 10/12/2017 PREOPERATIVE DIAGNOSIS: Ulceration, infection, skin necrosis of abdominal wall and bilateral thighs with placement of VAC. POSTOPERATIVE DIAGNOSIS: Ulceration, infection, skin necrosis of abdominal wall and bilateral thighs with placement of VAC. PROCEDURE PERFORMED: Incision and drainage with excisional debridement of abdominal wall and bilateral lower thighs with VAC change. SURGEON: Jose Schneider MD FAMILY SERVICES SPECIALIST: See OR sheet. ANESTHESIA: GETA. IV FLUIDS: See anesthesia sheet. ESTIMATED BLOOD LOSS: 15 mL. DRAINS: Hemovac placement. WOUND CLASSIFICATION: Contaminated. COMPLICATIONS: None. SPECIMENS: None. FINDINGS: Good seal after VAC placement. INDICATION FOR PROCEDURE: The patient is a 51-year-old female who presented with a skin infection and some necrosis of the anterior abdominal wall of initial medical treatment failure. Then decision for operative intervention including excision with VAC placement. The patient is here for VAC change and/or continuos debridement. DETAILS OF PROCEDURE: The patient was taken to the operating suite, placed in supine position. She was prepped and draped in the usual sterile fashion in the lithotomy position. Attention first directed to the VAC that was previously in place, which was removed. The sponges had been tunneled deep in the subcutaneous tissues on the bilateral lower quadrants of the abdominal wall were also removed. Irrigation done to the abdominal wall and incision sites. Minimal clot noted to the left lower thigh, which was evacuated and irrigated and hemostasis obtained. The left lateral thigh on the medial aspect was reapproximated with two #2 nylon sutures in a vertical mattress fashion. Next, some debridement was done to the anterior abdominal wall of some moist skin and subcutaneous fat tissue. Decision was then made for placement of a 19-[place] Barney drain. This was placed in again the lower pannus where the previous VAC sponges had been undermined and placed. This was placed through a separate stab incision and secured with a 2-0 nylon. The centralized defect a triangular sponge was cut to size x 2 and placed in the wound defect. The plastic drape was then placed. The track pad was placed, VAC placed to suction with good seal. Xeroform placed to bilateral medial thigh incisions. The patient tolerated the procedure well. There were no intraoperative complications. All lap and instrument counts were correct at the end of the procedure. The patient was extubated and taken stable to PACU. MD RAY Meier/AMANDA , 08:32 AM , 08:40 AM
--- NOTE | 2017-10-13 09:17 | P.PNFP ---
Subjective Interval history: Patient seen and examined today. No acute events overnight. Denies nausea vomiting, fever, chills abdominal pain, chest pain, shortness of breath, lightheadedness, dizziness, any other pains. Denies audiovisual hallucinations. <Saeed Greene - 10/13/17 09:17> Results - Labs Result diagrams: 10/13/17 06:20 10/13/17 06:20 <John Joseph - 10/13/17 13:28> Abnormal lab results 10/13/17 10/13/17 Range/Units 06:20 06:20 WBC 25.6 H (4.0-11.0) th/mm3 RBC 3.27 L (4.00-5.30) mil/mm3 Hgb 8.7 L (11.6-15.3) gm/dL Hct 26.3 L (35.0-46.0) % MCH 26.5 L (27.0-34.0) pg RDW 18.8 H (11.6-17.2) % Chloride 112 H (98-107) meq/L BUN 6 L (7-18) mg/dL Creatinine 0.41 L (0.50-1.00) mg/dL Random Glucose 71 L (74-106) mg/dL Calcium 7.4 L* (8.5-10.1) mg/dL Total Protein 4.4 L (6.4-8.2) g/dL Short CBC 10/13/17 Range/Units 06:20 WBC 25.6 H (4.0-11.0) th/mm3 Hgb 8.7 L (11.6-15.3) gm/dL Hct 26.3 L (35.0-46.0) % Plt Count 292 (150-450) th/mm3 BMP 10/13/17 06:20 Sodium 141 Potassium 4.2 Chloride 112 H Carbon Dioxide 23.6 BUN 6 L Creatinine 0.41 L Calcium 7.4 L* <John Joseph - 10/13/17 13:28> Abnormal lab results 10/12/17 10/13/17 10/13/17 Range/Units 08:17 06:20 06:20 WBC 25.6 H (4.0-11.0) th/mm3 RBC 3.27 L (4.00-5.30) mil/mm3 Hgb 8.7 L (11.6-15.3) gm/dL Hct 26.3 L (35.0-46.0) % MCH 26.5 L (27.0-34.0) pg RDW 18.8 H (11.6-17.2) % Chloride 112 H (98-107) meq/L BUN 6 L (7-18) mg/dL Creatinine 0.41 L (0.50-1.00) mg/dL Random Glucose 71 L (74-106) mg/dL Calcium 7.4 L* (8.5-10.1) mg/dL Total Protein 4.4 L (6.4-8.2) g/dL MTS Gel Crossmatch See Detail Short CBC 10/13/17 Range/Units 06:20 WBC 25.6 H (4.0-11.0) th/mm3 Hgb 8.7 L (11.6-15.3) gm/dL Hct 26.3 L (35.0-46.0) % Plt Count 292 (150-450) th/mm3 BMP 10/13/17 06:20 Sodium 141 Potassium 4.2 Chloride 112 H Carbon Dioxide 23.6 BUN 6 L Creatinine 0.41 L Calcium 7.4 L* <Saeed Greene A - 10/13/17 09:17> Physical Exam Vital signs: Vital Signs 10/12/17 14:25 10/12/17 14:45 10/12/17 15:00 Temperature 97.5 F L Pulse Rate 132 H 127 H 98 H Respiratory Rate 17 17 15 Blood Pressure 134/73 121/70 122/65 Pulse Oximetry 98 98 98 10/12/17 15:15 10/12/17 15:20 10/12/17 15:37 Temperature 97.5 F L 97.5 F L Pulse Rate 100 H 102 H 113 H Respiratory Rate 17 17 16 Blood Pressure 122/60 123/66 124/74 Pulse Oximetry 98 98 97 10/12/17 16:00 10/12/17 17:00 10/12/17 19:55 Temperature 97.7 F 98.6 F Pulse Rate 118 H 117 H 115 H Respiratory Rate 18 16 Blood Pressure 124/73 113/65 Pulse Oximetry 100 10/12/17 20:00 10/13/17 00:00 10/13/17 01:00 Temperature 98.4 F Pulse Rate 107 H 106 H 96 H Respiratory Rate 16 Blood Pressure 117/55 L Pulse Oximetry 99 10/13/17 04:00 10/13/17 08:00 10/13/17 12:00 Temperature 97.9 F 97.7 F 97.9 F Pulse Rate 112 H 120 H 111 H Respiratory Rate 16 12 12 Blood Pressure 117/64 137/72 128/60 Pulse Oximetry 98 97 98 Intake & Output 10/12/17 10/13/17 10/13/17 18:59 06:59 18:59 Intake Total 1800 / 1800 100 / 100 Output Total 1510 / 1510 700 / 700 Balance 290 / 290 -600 / -600 Weight 118.9 kg Intake: IV 1100 / 1100 100 / 100 NS Inj 1,000 ML @ 100 mls/hr IV 1000 / 1000 .CONT .Q10H [facility] Rx#:[id number] Maxipime Inj 2,000 MG In NS Inj 100 / 100 100 / 100 100 ML @ 200 mls/hr IV.SIG Q8H [facility] Rx#:[id number] Anesthesia Amount 700 / 700 Output: Urine 900 / 900 700 / 700 Estimated Blood Loss 10 / 10 Urine Amount (Catheter) 600 / 600 Indwelling Urethral Catheter 600 / 600 Other: Mode Setting Left Upper Groin Continuous Midline Groin Continuous Perineal Continuous Right Lower Groin Thigh Continuous <John Joseph - 10/13/17 13:28> Vital Signs 10/12/17 11:15 10/12/17 14:25 10/12/17 14:45 Temperature 98.2 F 97.5 F L Pulse Rate 126 H 132 H 127 H Respiratory Rate 18 17 17 Blood Pressure 108/61 134/73 121/70 Pulse Oximetry 96 98 98 10/12/17 15:00 10/12/17 15:15 10/12/17 15:20 Temperature 97.5 F L Pulse Rate 98 H 100 H 102 H Respiratory Rate 15 17 17 Blood Pressure 122/65 122/60 123/66 Pulse Oximetry 98 98 98 10/12/17 15:37 10/12/17 16:00 10/12/17 17:00 Temperature 97.5 F L 97.7 F Pulse Rate 113 H 118 H 117 H Respiratory Rate 16 18 Blood Pressure 124/74 124/73 Pulse Oximetry 97 10/12/17 19:55 10/12/17 20:00 10/13/17 00:00 Temperature 98.6 F 98.4 F Pulse Rate 115 H 107 H 106 H Respiratory Rate 16 16 Blood Pressure 113/65 117/55 L Pulse Oximetry 100 99 10/13/17 01:00 10/13/17 04:00 10/13/17 08:00 Temperature 97.9 F 97.7 F Pulse Rate 96 H 112 H 120 H Respiratory Rate 16 12 Blood Pressure 117/64 137/72 Pulse Oximetry 98 97 Intake & Output 10/12/17 10/13/17 10/13/17 18:59 06:59 18:59 Intake Total 1800 / 1800 100 / 100 Output Total 1510 / 1510 700 / 700 Balance 290 / 290 -600 / -600 Weight 118.9 kg Intake: IV 1100 / 1100 100 / 100 NS Inj 1,000 ML @ 100 mls/hr IV 1000 / 1000 .CONT .Q10H [facility] Rx#:[id number] Maxipime Inj 2,000 MG In NS Inj 100 / 100 100 / 100 100 ML @ 200 mls/hr IV.SIG Q8H [facility] Rx#:[id number] Anesthesia Amount 700 / 700 Output: Urine 900 / 900 700 / 700 Estimated Blood Loss 10 / 10 Urine Amount (Catheter) 600 / 600 Indwelling Urethral Catheter 600 / 600 Other: Mode Setting Left Upper Groin Continuous Midline Groin Continuous Perineal Continuous Right Lower Groin Thigh Continuous <Saeed Greene - 10/13/17 09:17> Narrative: GENERAL: Obese female laying in bed, no acute distress SKIN: Warm and dry. Wound VAC in place underneath pannus, appears clean/dry/ intact. Sanguinous drainage in vacuum container. HEAD: Normocephalic. EYES: No scleral icterus. No injection or drainage. NECK: Supple, trachea midline. No JVD or lymphadenopathy. CARDIOVASCULAR: Regular rate and rhythm without murmurs, gallops, or rubs. RESPIRATORY: Breath sounds equal bilaterally. No accessory muscle use. GASTROINTESTINAL: Abdomen soft, non-tender, nondistended. EXTREMITIES: Skin of L lower leg peeling from knee to ankle, erythematous. L pedal edema 1+. Trace R pedal edema. <Saeed Greene - 10/13/17 09:17> - Urinary Catheter Management Indwelling Urethral Catheter Cath placed during this visit: no <John Joseph - 10/13/17 13:28> yes, but has since been removed by the nurse <Saeed Greene - 10/13/17 09:17> Reason for continuing: Hourly intake/output <Saeed Greene - 10/13/17 09:17 > Insertion date: 10/09/17 <Saeed Greene - 10/13/17 09:17> Insertion time: 14:00 <Saeed Greene - 10/13/17 09:17> Removal date: 10/05/17 <Saeed Greene - 10/13/17 09:17> Removal time: 17:30 <Saeed Greene - 10/13/17 09:17> Assessment and Plan - Assessment (1) Fungal infection of skin of abdomen Code(s): B36.9 - Superficial mycosis, unspecified Status: Acute (2) Cellulitis of knee, left Code(s): L03.116 - Cellulitis of left lower limb Status: Acute (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 - Infection and inflammatory reaction due to unspecified internal joint prosthesis, initial encounter Status: Suspected (4) Pneumonia Code(s): J18.9 - Pneumonia, unspecified organism Status: Resolved (5) Diarrhea Code(s): R19.7 - Diarrhea, unspecified Status: Resolved (6) Schizophrenia Code(s): F20.9 - Schizophrenia, unspecified Status: Chronic (7) Hypertension Code(s): I10 - Essential (primary) hypertension Status: Acute (8) Nutrition, metabolism, and development symptoms Code(s): R63.8 - Other symptoms and signs concerning food and fluid intake Status: Acute <John Joseph - 10/13/17 13:28> (1) Fungal infection of skin of abdomen Code(s): B36.9 - Superficial mycosis, unspecified Status: Acute Plan: Presented on admission with what appears to be transcutaneous rash under the abdominal folds and groin area. Skin wound now in perineum just proximal to the anus. -Surgical procedure 10/09, wound VAC applied. VAC changed 10/12 -Continue current course of antibiotics (2) Cellulitis of knee, left Code(s): L03.116 - Cellulitis of left lower limb Status: Acute Plan: -Pt s/p 2 weeks of Keflex 500mg po -Knee looks improved from reported exam on admission. Minimal swelling. No erythema. Non tender to palpation. 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 She completed rehabilitation and was discharged home August 23. Patient was on approximately 2 weeks of po Keflex 500 mg. Per Ortho, examination of left knee shows no evidence of infection. - See plan above for left leg cellulitis (4) Pneumonia Code(s): J18.9 - Pneumonia, unspecified organism Status: Resolved Plan: Patient found to have left lower lobe consolidation on chest CTA. Lungs CTAB today. She remains afebrile, with O2 sat WNL on room air. Patient currently on Levaquin. -Continue to monitor vital signs -Continue incentive spirometry (5) Diarrhea Code(s): R19.7 - Diarrhea, unspecified Status: Resolved Plan: On admission patient presented with 3-day history of diarrhea in the setting of recent antibiotics. All bowel regimens held. Patient C. difficile negative. -Diarrhea has improved and decreasing frequency. Continue with probiotics. (6) Schizophrenia Code(s): F20.9 - Schizophrenia, unspecified Status: Chronic Plan: Patient with chronic history of schizophrenia. On admission patient presented with active hallucinations of seeing someone out to get her. -No hallucinations over night -Psych consulted- recommend Continue Abilify 30 mg for psychosis, okay to continue buspirone 30 mg, trazodone 100 mg and Cymbalta 60 mg -Hold anticholinergics per Psych (7) Hypertension Code(s): I10 - Essential (primary) hypertension Status: Acute Plan: Patient with history of HTN on home diltiazem. - cardizem dose previously decreased to 60mg TID due prior to c/o of lightheadedness upon standing and working with physical therapy -continue to monitor (8) Nutrition, metabolism, and development symptoms Code(s): R63.8 - Other symptoms and signs concerning food and fluid intake Status: Acute Plan: Fluids: 100mls/hr Electrolytes: Replete as needed Nutrition: cardiac diet, continue to monitor po intake, supplement with ensure DVT prophylaxis: SCDs Continue to work with PT to get OOB <Saeed Greene - 10/13/17 09:14> - Attending Attestation Patient examined independently and case discussed with resident physicians I have read the above note and agree with the assessment/plan as discussed with me I was involved in all medical decision making for this patient John Joseph MD <John Joseph - 10/13/17 13:28> <Saeed Greene - Last Filed: 10/13/17 09:14> (4) Pneumonia Qualifiers: Pneumonia type: due to unspecified organism Laterality: left Lung location: lower lobe of lung Qualified Code(s): J18.1 - Lobar pneumonia, unspecified organism (7) Hypertension Qualifiers: Hypertension type: essential hypertension Qualified Code(s): I10 - Essential (primary) hypertension <John Joseph - Last Filed: 10/13/17 13:28> (4) Pneumonia Qualifiers: Pneumonia type: due to unspecified organism Laterality: left Lung location: lower lobe of lung Qualified Code(s): J18.1 - Lobar pneumonia, unspecified organism (7) Hypertension Qualifiers: Hypertension type: essential hypertension Qualified Code(s): I10 - Essential (primary) hypertension <Saeed Greene - Last Filed: 10/13/17 09:14> (4) Pneumonia Qualifiers: Pneumonia type: due to unspecified organism Laterality: left Lung location: lower lobe of lung Qualified Code(s): J18.1 - Lobar pneumonia, unspecified organism (7) Hypertension Qualifiers: Hypertension type: essential hypertension Qualified Code(s): I10 - Essential (primary) hypertension <John Joseph - Last Filed: 10/13/17 13:28> (4) Pneumonia Qualifiers: Pneumonia type: due to unspecified organism Laterality: left Lung location: lower lobe of lung Qualified Code(s): J18.1 - Lobar pneumonia, unspecified organism (7) Hypertension Qualifiers: Hypertension type: essential hypertension Qualified Code(s): I10 - Essential (primary) hypertension
[2017-10-13] MEDS: traZODone 100 MG Tablet PO SCH (10:07)
[2017-10-13] MEDS: Pantoprazole Sodium 20 MG DR Tablet PO SCH (10:07)
[2017-10-13] MEDS: Duloxetine 60 MG DR Capsule PO SCH (10:07)
[2017-10-13] MEDS: Folic Acid 1 MG Tablet PO SCH (10:07)
[2017-10-13] MEDS: levoFLOXacin 750 MG Tablet PO SCH (10:08)
[2017-10-13] MEDS: Metoprolol Tartrate 25 MG Tablet PO SCH ×2 (10:08→23:13)
[2017-10-13] MEDS: dilTIAZem 60 MG Tablet PO SCH ×3 (10:09→17:38)
[2017-10-13] MEDS: Heparin Central Flush 100 UNIT/ML 5 ML Vial IV.FLUSH SCH (10:14)
--- NOTE | 2017-10-13 10:16 | P.PNGS ---
Subjective Patient reports: no new complaints, feels better, tolerating a regular diet, afebrile Physical Exam Vital signs: Vital Signs 10/12/17 11:15 10/12/17 14:25 10/12/17 14:45 Temperature 98.2 F 97.5 F L Pulse Rate 126 H 132 H 127 H Respiratory Rate 18 17 17 Blood Pressure 108/61 134/73 121/70 Pulse Oximetry 96 98 98 10/12/17 15:00 10/12/17 15:15 10/12/17 15:20 Temperature 97.5 F L Pulse Rate 98 H 100 H 102 H Respiratory Rate 15 17 17 Blood Pressure 122/65 122/60 123/66 Pulse Oximetry 98 98 98 10/12/17 15:37 10/12/17 16:00 10/12/17 17:00 Temperature 97.5 F L 97.7 F Pulse Rate 113 H 118 H 117 H Respiratory Rate 16 18 Blood Pressure 124/74 124/73 Pulse Oximetry 97 10/12/17 19:55 10/12/17 20:00 10/13/17 00:00 Temperature 98.6 F 98.4 F Pulse Rate 115 H 107 H 106 H Respiratory Rate 16 16 Blood Pressure 113/65 117/55 L Pulse Oximetry 100 99 10/13/17 01:00 10/13/17 04:00 10/13/17 08:00 Temperature 97.9 F 97.7 F Pulse Rate 96 H 112 H 120 H Respiratory Rate 16 12 Blood Pressure 117/64 137/72 Pulse Oximetry 98 97 Intake & Output 10/12/17 10/13/17 10/13/17 18:59 06:59 18:59 Intake Total 1800 / 1800 100 / 100 Output Total 1510 / 1510 700 / 700 Balance 290 / 290 -600 / -600 Weight 118.9 kg Intake: IV 1100 / 1100 100 / 100 NS Inj 1,000 ML @ 100 mls/hr IV 1000 / 1000 .CONT .Q10H [facility] Rx#:[id number] Maxipime Inj 2,000 MG In NS Inj 100 / 100 100 / 100 100 ML @ 200 mls/hr IV.SIG Q8H [facility] Rx#:[id number] Anesthesia Amount 700 / 700 Output: Urine 900 / 900 700 / 700 Estimated Blood Loss 10 / 10 Urine Amount (Catheter) 600 / 600 Indwelling Urethral Catheter 600 / 600 Other: Mode Setting Left Upper Groin Continuous Midline Groin Continuous Perineal Continuous Right Lower Groin Thigh Continuous - Routine Abdominal Exam Comments: vac intact, dressings clean and dry, no erythema - Urinary Catheter Management Indwelling Urethral Catheter Cath placed during this visit: yes, but has since been removed by the nurse Reason for continuing: Hourly intake/output Insertion date: 10/09/17 Insertion time: 14:00 Removal date: 10/05/17 Removal time: 17:30 Assessment and Plan - Plan continue VAC and wound care supportive care operative plan per dr soto
[2017-10-13] MEDS: Sod Chloride 0.9% Inj 1,000 ML IV.CONT SCH (23:08)
[2017-10-14 07:13] LABS: Hematocrit 26.4 % (35.0-46.0); Hemoglobin 8.7 gm/dL (11.6-15.3); Mean Corpuscular HGB Conc 32.9 % (32.0-36.0); Mean Corpuscular Hemoglobin 26.6 pg (27.0-34.0); Mean Corpuscular Volume 80.9 fL (80.0-100.0); Mean Platelet Volume 6.9 fL (7.0-11.0); Platelet Count 312 th/mm3 (150-450); Red Blood Count 3.26 mil/mm3 (4.00-5.30); Red Cell Distribution Width 18.6 % (11.6-17.2); White Blood Count 31.3 th/mm3 (4.0-11.0)
[2017-10-14 07:42] LABS: Anion Gap 6 meq/L (5-15); Blood Urea Nitrogen 7 mg/dL (7-18); Calcium 7.6 mg/dL (8.5-10.1); Carbon Dioxide 23.8 meq/L (21.0-32.0); Chloride 111 meq/L (98-107); Glomerular Filtration Rate Greater Than 89 mL/min (>89); Glucose,Random 84 mg/dL (74-106); Potassium 4.2 meq/L (3.5-5.1); Sodium 141 meq/L (136-145)
[2017-10-14] MEDS: levoFLOXacin 750 MG Tablet PO SCH (09:56)
[2017-10-14] MEDS: Duloxetine 60 MG DR Capsule PO SCH (09:56)
[2017-10-14] MEDS: traZODone 100 MG Tablet PO SCH (09:57)
[2017-10-14] MEDS: dilTIAZem 60 MG Tablet PO SCH ×3 (09:57→17:47)
[2017-10-14] MEDS: Pantoprazole Sodium 20 MG DR Tablet PO SCH (09:57)
[2017-10-14] MEDS: Metoprolol Tartrate 25 MG Tablet PO SCH ×2 (09:57→21:39)
[2017-10-14] MEDS: Folic Acid 1 MG Tablet PO SCH (09:58)
--- NOTE | 2017-10-14 10:25 | P.PNFP ---
Subjective Interval history: Nursing reports patient has not been eating. Wound VAC was replaced Sunday. Ms Mcclain denies any overnight events. She does report abdominal pain located around the wound VAC. She denies any nausea, vomiting, chest pain, shortness of breath, leg pain, fevers, chills. <Patsy Baxter - 10/14/17 10:33> Results - Labs Result diagrams: 10/14/17 06:55 10/14/17 06:55 <John Joseph - 10/14/17 11:42> Abnormal lab results 10/12/17 10/14/17 10/14/17 Range/Units 08:17 06:55 06:55 WBC 31.3 H (4.0-11.0) th/mm3 RBC 3.26 L (4.00-5.30) mil/mm3 Hgb 8.7 L (11.6-15.3) gm/dL Hct 26.4 L (35.0-46.0) % MCH 26.6 L (27.0-34.0) pg RDW 18.6 H (11.6-17.2) % MPV 6.9 L (7.0-11.0) fL Chloride 111 H (98-107) meq/L Creatinine 0.49 L (0.50-1.00) mg/dL Calcium 7.6 L (8.5-10.1) mg/dL MTS Gel Crossmatch See Detail Short CBC 10/14/17 Range/Units 06:55 WBC 31.3 H (4.0-11.0) th/mm3 Hgb 8.7 L (11.6-15.3) gm/dL Hct 26.4 L (35.0-46.0) % Plt Count 312 (150-450) th/mm3 BMP 10/14/17 06:55 Sodium 141 Potassium 4.2 Chloride 111 H Carbon Dioxide 23.8 BUN 7 Creatinine 0.49 L Calcium 7.6 L <John Joseph - 10/14/17 11:42> Abnormal lab results 10/12/17 10/14/17 10/14/17 Range/Units 08:17 06:55 06:55 WBC 31.3 H (4.0-11.0) th/mm3 RBC 3.26 L (4.00-5.30) mil/mm3 Hgb 8.7 L (11.6-15.3) gm/dL Hct 26.4 L (35.0-46.0) % MCH 26.6 L (27.0-34.0) pg RDW 18.6 H (11.6-17.2) % MPV 6.9 L (7.0-11.0) fL Chloride 111 H (98-107) meq/L Creatinine 0.49 L (0.50-1.00) mg/dL Calcium 7.6 L (8.5-10.1) mg/dL MTS Gel Crossmatch See Detail Short CBC 10/14/17 Range/Units 06:55 WBC 31.3 H (4.0-11.0) th/mm3 Hgb 8.7 L (11.6-15.3) gm/dL Hct 26.4 L (35.0-46.0) % Plt Count 312 (150-450) th/mm3 BMP 10/14/17 06:55 Sodium 141 Potassium 4.2 Chloride 111 H Carbon Dioxide 23.8 BUN 7 Creatinine 0.49 L Calcium 7.6 L <Patsy Baxter - 10/14/17 10:25> Physical Exam Vital signs: Vital Signs 10/13/17 12:00 10/13/17 16:00 10/13/17 20:30 Temperature 97.9 F 98.0 F 98.8 F Pulse Rate 111 H 97 H 110 H Respiratory Rate 12 12 19 Blood Pressure 128/60 114/59 L 125/80 Pulse Oximetry 98 98 96 10/13/17 20:40 10/13/17 21:00 10/14/17 00:45 Temperature 98.8 F 97.8 F Pulse Rate 110 H 89 108 H Respiratory Rate 19 21 Blood Pressure 125/80 120/88 Pulse Oximetry 96 96 10/14/17 01:00 10/14/17 05:15 10/14/17 08:00 Temperature 98 F 98.0 F Pulse Rate 89 101 H 105 H Respiratory Rate 20 12 Blood Pressure 113/67 Pulse Oximetry 97 97 Intake & Output 10/13/17 10/14/17 10/14/17 18:59 06:59 18:59 Intake Total 100 / 100 1500 / 1500 Output Total 2049 / 2049 Balance 100 / 100 -550 / -550 Weight 120 kg Intake: IV 100 / 100 100 / 100 Maxipime Inj 2,000 MG In NS Inj 100 / 100 100 / 100 100 ML @ 200 mls/hr IV.SIG Q8H [facility] Rx#:[id number] Oral 1400 / 1400 Output: Urine 1500 / 1500 Stool 100 / 100 Urine/Stool Mix 50 / 50 Urine Amount (Catheter) 400 / 400 Indwelling Urethral Catheter 400 / 400 Other: Date of Last Bowel Movement 10/09/17 10/09/17 <John Joseph - 10/14/17 11:42> Vital Signs 10/13/17 12:00 10/13/17 16:00 10/13/17 20:30 Temperature 97.9 F 98.0 F 98.8 F Pulse Rate 111 H 97 H 110 H Respiratory Rate 12 12 19 Blood Pressure 128/60 114/59 L 125/80 Pulse Oximetry 98 98 96 10/13/17 20:40 10/13/17 21:00 10/14/17 00:45 Temperature 98.8 F 97.8 F Pulse Rate 110 H 89 108 H Respiratory Rate 19 21 Blood Pressure 125/80 120/88 Pulse Oximetry 96 96 10/14/17 01:00 10/14/17 05:15 10/14/17 08:00 Temperature 98 F 98.0 F Pulse Rate 89 101 H 105 H Respiratory Rate 20 12 Blood Pressure 113/67 Pulse Oximetry 97 97 Intake & Output 10/13/17 10/14/17 10/14/17 18:59 06:59 18:59 Intake Total 100 / 100 1500 / 1500 Output Total 2049 Balance 100 / 100 -550 / -550 Weight 120 kg Intake: IV 100 / 100 100 / 100 Maxipime Inj 2,000 MG In NS Inj 100 / 100 100 / 100 100 ML @ 200 mls/hr IV.SIG Q8H [facility] Rx#:[id number] Oral 1400 / 1400 Output: Urine 1500 / 1500 Stool 100 / 100 Urine/Stool Mix 50 / 50 Urine Amount (Catheter) 400 / 400 Indwelling Urethral Catheter 400 / 400 Other: Date of Last Bowel Movement 10/09/17 10/09/17 <Patsy Baxter - 10/14/17 10:25> Narrative: GENERAL: Obese female laying in bed, no acute distress SKIN: Warm and dry. Wound VAC in place underneath pannus, appears clean/ intact. Increased sanguinous drainage beneath dressing from yesterday. Sanguinous drainage in vacuum container. HEAD: Normocephalic. EYES: No scleral icterus. No injection or drainage. NECK: Supple, trachea midline. No JVD or lymphadenopathy. CARDIOVASCULAR: Regular rate and rhythm without murmurs, gallops, or rubs. RESPIRATORY: Decreased breath sounds in bases bilaterally, improved with increased patient effort. No accessory muscle use. GASTROINTESTINAL: Abdomen soft, non-tender, nondistended. Normoactive bowel sounds rectal tube present. EXTREMITIES: Skin of L lower leg peeling from knee to ankle, erythematous. L pedal edema 1+. Trace R pedal edema. : Hopper catheter in place light yellow fluid. <Patsy Baxter - 10/14/17 10:33> - Urinary Catheter Management Indwelling Urethral Catheter Cath placed during this visit: no <John Joseph - 10/14/17 11:42> yes, but has since been removed by the nurse <Patsy Baxter 10/14/17 10:33> Reason for continuing: Severe pressure ulcer/wound <Patsy Baxter 10/14/17 10:25> Insertion date: 09/27/17 <Patsy Baxter 10/14/17 10:25> Insertion time: 08:20 <Patsy Baxter 10/14/17 10:25> Removal date: 10/05/17 <Patsy Baxter 10/14/17 10:25> Removal time: 17:30 <Patsy Baxter 10/14/17 10:25> Assessment and Plan - Assessment (1) Fungal infection of skin of abdomen Code(s): B36.9 - Superficial mycosis, unspecified Status: Acute (2) Cellulitis of knee, left Code(s): L03.116 - Cellulitis of left lower limb Status: Acute (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 - Infection and inflammatory reaction due to unspecified internal joint prosthesis, initial encounter Status: Suspected (4) Pneumonia Code(s): J18.9 - Pneumonia, unspecified organism Status: Resolved (5) Diarrhea Code(s): R19.7 - Diarrhea, unspecified Status: Resolved (6) Schizophrenia Code(s): F20.9 - Schizophrenia, unspecified Status: Chronic (7) Hypertension Code(s): I10 - Essential (primary) hypertension Status: Acute (8) Nutrition, metabolism, and development symptoms Code(s): R63.8 - Other symptoms and signs concerning food and fluid intake Status: Acute <John Joseph - 10/14/17 11:42> (1) Fungal infection of skin of abdomen Code(s): B36.9 - Superficial mycosis, unspecified Status: Acute Plan: Presented on admission with what appears to be transcutaneous rash under the abdominal folds and groin area. Skin wound now in perineum just proximal to the anus. -Surgical procedure 10/09, wound VAC applied. VAC changed 10/12 -Continue current course of antibiotics -White blood cell count increased to 31 today from 23 yesterday. Patient has remained afebrile with no increase in tachycardia. Thus far tissue samples from OR have not grown anything. Continue to monitor for signs of worsening infection. -Repeat CBC in a.m. (2) Cellulitis of knee, left Code(s): L03.116 - Cellulitis of left lower limb Status: Acute Plan: -Pt s/p 2 weeks of Keflex 500mg po -Knee looks improved from reported exam on admission. Minimal swelling. No erythema. Non tender to palpation. Patient has been OOB with assistance -S/p PICC line placement. 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 She completed rehabilitation and was discharged home August 23. Patient was on approximately 2 weeks of po Keflex 500 mg. Per Ortho, examination of left knee shows no evidence of infection. - See plan above for left leg cellulitis (4) Pneumonia Code(s): J18.9 - Pneumonia, unspecified organism Status: Resolved Plan: Patient found to have left lower lobe consolidation on chest CTA. Lungs CTAB today. She remains afebrile, with O2 sat WNL on room air. Patient currently on Levaquin. -Continue to monitor vital signs -Continue incentive spirometry (5) Diarrhea Code(s): R19.7 - Diarrhea, unspecified Status: Resolved Plan: On admission patient presented with 3-day history of diarrhea in the setting of recent antibiotics. All bowel regimens held. Patient C. difficile negative. -Diarrhea has improved and decreasing frequency. Continue with probiotics. (6) Schizophrenia Code(s): F20.9 - Schizophrenia, unspecified Status: Chronic Plan: Patient with chronic history of schizophrenia. On admission patient presented with active hallucinations of seeing someone out to get her. -No hallucinations over night -Psych consulted- recommend Continue Abilify 30 mg for psychosis, okay to continue buspirone 30 mg, trazodone 100 mg and Cymbalta 60 mg -Hold anticholinergics per Psych (7) Hypertension Code(s): I10 - Essential (primary) hypertension Status: Acute Plan: Patient with history of HTN on home diltiazem. - cardizem dose previously decreased to 60mg TID due prior to c/o of lightheadedness upon standing and working with physical therapy -continue to monitor (8) Nutrition, metabolism, and development symptoms Code(s): R63.8 - Other symptoms and signs concerning food and fluid intake Status: Acute Plan: Fluids: 100mls/hr Electrolytes: Replete as needed Nutrition: cardiac diet, continue to monitor po intake, supplement with ensure. Encouraged patient that she needed to increase p.o. intake in order to heal DVT prophylaxis: SCDs Continue to work with PT to get OOB <Patsy Baxter - 10/14/17 10:25> - Assessment and Plan . <Patsy Baxter - 10/14/17 10:25> Discussed Condition With: Dirk Joseph and Nilson <Patsy Baxter - 10/14/17 10:33> - Attending Attestation Patient examined independently from the resident physicians and case discussed with resident team I have read the above note and agree with the assessment/plan as discussed with me I was involved in all medical decision making for this patient John Joseph MD <John Joseph - 10/14/17 11:42> <Carroll Baxterla Last Filed: 10/14/17 10:25> (4) Pneumonia Qualifiers: Pneumonia type: due to unspecified organism Laterality: left Lung location: lower lobe of lung Qualified Code(s): J18.1 - Lobar pneumonia, unspecified organism (7) Hypertension Qualifiers: Hypertension type: essential hypertension Qualified Code(s): I10 - Essential (primary) hypertension <JakeHafsay - Last Filed: 10/14/17 11:42> (4) Pneumonia Qualifiers: Pneumonia type: due to unspecified organism Laterality: left Lung location: lower lobe of lung Qualified Code(s): J18.1 - Lobar pneumonia, unspecified organism (7) Hypertension Qualifiers: Hypertension type: essential hypertension Qualified Code(s): I10 - Essential (primary) hypertension <Patsy Baxter - Last Filed: 10/14/17 10:25> (4) Pneumonia Qualifiers: Pneumonia type: due to unspecified organism Laterality: left Lung location: lower lobe of lung Qualified Code(s): J18.1 - Lobar pneumonia, unspecified organism (7) Hypertension Qualifiers: Hypertension type: essential hypertension Qualified Code(s): I10 - Essential (primary) hypertension <JakeHafsay - Last Filed: 10/14/17 11:42> (4) Pneumonia Qualifiers: Pneumonia type: due to unspecified organism Laterality: left Lung location: lower lobe of lung Qualified Code(s): J18.1 - Lobar pneumonia, unspecified organism (7) Hypertension Qualifiers: Hypertension type: essential hypertension Qualified Code(s): I10 - Essential (primary) hypertension
[2017-10-14] MEDS: Heparin Central Flush 100 UNIT/ML 5 ML Vial IV.FLUSH SCH (10:57)
--- NOTE | 2017-10-14 13:49 | P.PNGS ---
Subjective Patient reports: feels better (no acute issues, scant bleeding from left thigh) Physical Exam Vital signs: Vital Signs 10/13/17 16:00 10/13/17 20:30 10/13/17 20:40 Temperature 98.0 F 98.8 F 98.8 F Pulse Rate 97 H 110 H 110 H Respiratory Rate 12 19 19 Blood Pressure 114/59 L 125/80 125/80 Pulse Oximetry 98 96 96 10/13/17 21:00 10/14/17 00:45 10/14/17 01:00 Temperature 97.8 F Pulse Rate 89 108 H 89 Respiratory Rate 21 Blood Pressure 120/88 Pulse Oximetry 96 10/14/17 05:15 10/14/17 08:00 Temperature 98 F 98.0 F Pulse Rate 101 H 105 H Respiratory Rate 20 12 Blood Pressure 113/67 Pulse Oximetry 97 97 Intake & Output 10/13/17 10/14/17 10/14/17 18:59 06:59 18:59 Intake Total 100 / 100 1500 / 1500 Output Total 2049 / 2049 Balance 100 / 100 -550 / -550 Weight 120 kg Intake: IV 100 / 100 100 / 100 Maxipime Inj 2,000 MG In NS Inj 100 / 100 100 / 100 100 ML @ 200 mls/hr IV.SIG Q8H [facility] Rx#:[id number] Oral 1400 / 1400 Output: Urine 1500 / 1500 Stool 100 / 100 Urine/Stool Mix 50 / 50 Urine Amount (Catheter) 400 / 400 Indwelling Urethral Catheter 400 / 400 Other: Date of Last Bowel Movement 10/09/17 10/09/17 - Routine Abdominal Exam Present: soft (vac good sxn, scant drainage, seal reinforced, mini serosang) - Urinary Catheter Management Indwelling Urethral Catheter Cath placed during this visit: yes, but has since been removed by the nurse Reason for continuing: Severe pressure ulcer/wound Insertion date: 09/27/17 Insertion time: 08:20 Removal date: 10/05/17 Removal time: 17:30 Assessment and Plan - Plan 51 y/o f with multiple medical issues, skin lesions PLAN vac to 125mmHg reinforce HH stable will plan for vac change possible removal tomorrow in OR discussed with patient, awaiting for consent npo after mn
[2017-10-14] MEDS: Sod Chloride 0.9% Inj 1,000 ML IV.CONT SCH (16:07)
[2017-10-15 06:53] LABS: Hematocrit 23.2 % (35.0-46.0); Hemoglobin 7.7 gm/dL (11.6-15.3); Mean Corpuscular HGB Conc 33.3 % (32.0-36.0); Mean Corpuscular Hemoglobin 27.1 pg (27.0-34.0); Mean Corpuscular Volume 81.4 fL (80.0-100.0); Mean Platelet Volume 6.8 fL (7.0-11.0); Platelet Count 285 th/mm3 (150-450); Red Blood Count 2.84 mil/mm3 (4.00-5.30); Red Cell Distribution Width 18.4 % (11.6-17.2); White Blood Count 27.9 th/mm3 (4.0-11.0)
[2017-10-15 07:28] LABS: Anion Gap 5 meq/L (5-15); Blood Urea Nitrogen 6 mg/dL (7-18); Calcium 7.4 mg/dL (8.5-10.1); Carbon Dioxide 25.3 meq/L (21.0-32.0); Chloride 111 meq/L (98-107); Glomerular Filtration Rate Greater Than 89 mL/min (>89); Glucose,Random 58 mg/dL (74-106); Potassium 3.9 meq/L (3.5-5.1); Sodium 141 meq/L (136-145)
[2017-10-15 07:41] LABS: Total Protein 4.4 g/dL (6.4-8.2)
[2017-10-15] MEDS ORDERED: HYDROmorphone PF Inj 2 MG/ML Vial ONE (09:41)
[2017-10-15] MEDS ORDERED: fentaNYL Citrate Inj 100 MCG/2 ML Ampul ONE ×2 (09:42→12:00)
[2017-10-15] MEDS ORDERED: Ketamine Inj 50 MG/5 ML Syringe IV.PUSH ONE (09:44)
[2017-10-15] MEDS: dilTIAZem 60 MG Tablet PO SCH ×3 (09:56→18:45)
--- NOTE | 2017-10-15 10:26 | P.PNFP ---
Subjective Interval history: Patient seen and examined today. No acute events overnight. Denies nausea vomiting, fever, chills abdominal pain, chest pain, shortness of breath, lightheadedness, dizziness, any other pains. Denies audiovisual hallucinations. <RamonaMartín - 10/15/17 10:26> Results - Labs Result diagrams: 10/15/17 06:49 10/15/17 06:49 <John Joseph - 10/15/17 16:21> Abnormal lab results 10/09/17 10/15/17 10/15/17 Range/Units 11:40 06:49 06:49 WBC 27.9 H (4.0-11.0) th/mm3 RBC 2.84 L (4.00-5.30) mil/mm3 Hgb 7.7 L (11.6-15.3) gm/dL Hct 23.2 L (35.0-46.0) % RDW 18.4 H (11.6-17.2) % MPV 6.8 L (7.0-11.0) fL Chloride 111 H (98-107) meq/L BUN 6 L (7-18) mg/dL Creatinine 0.46 L (0.50-1.00) mg/dL Random Glucose 58 L (74-106) mg/dL Calcium 7.4 L* (8.5-10.1) mg/dL Total Protein 4.4 L (6.4-8.2) g/dL MTS Gel Crossmatch See Detail 10/15/17 Range/Units 11:05 WBC (4.0-11.0) th/mm3 RBC (4.00-5.30) mil/mm3 Hgb (11.6-15.3) gm/dL Hct (35.0-46.0) % RDW (11.6-17.2) % MPV (7.0-11.0) fL Chloride (98-107) meq/L BUN (7-18) mg/dL Creatinine (0.50-1.00) mg/dL Random Glucose (74-106) mg/dL Calcium (8.5-10.1) mg/dL Total Protein (6.4-8.2) g/dL MTS Gel Crossmatch See Detail Short CBC 10/15/17 Range/Units 06:49 WBC 27.9 H (4.0-11.0) th/mm3 Hgb 7.7 L (11.6-15.3) gm/dL Hct 23.2 L (35.0-46.0) % Plt Count 285 (150-450) th/mm3 [facility] 10/15/17 06:49 Sodium 141 Potassium 3.9 Chloride 111 H Carbon Dioxide 25.3 BUN 6 L Creatinine 0.46 L Calcium 7.4 L* <John Joseph - 10/15/17 16:21> Abnormal lab results 10/15/17 10/15/17 Range/Units 06:49 06:49 WBC 27.9 H (4.0-11.0) th/mm3 RBC 2.84 L (4.00-5.30) mil/mm3 Hgb 7.7 L (11.6-15.3) gm/dL Hct 23.2 L (35.0-46.0) % RDW 18.4 H (11.6-17.2) % MPV 6.8 L (7.0-11.0) fL Chloride 111 H (98-107) meq/L BUN 6 L (7-18) mg/dL Creatinine 0.46 L (0.50-1.00) mg/dL Random Glucose 58 L (74-106) mg/dL Calcium 7.4 L* (8.5-10.1) mg/dL Total Protein 4.4 L (6.4-8.2) g/dL Short CBC 10/15/17 Range/Units 06:49 WBC 27.9 H (4.0-11.0) th/mm3 Hgb 7.7 L (11.6-15.3) gm/dL Hct 23.2 L (35.0-46.0) % Plt Count 285 (150-450) th/mm3 [facility] 10/15/17 06:49 Sodium 141 Potassium 3.9 Chloride 111 H Carbon Dioxide 25.3 BUN 6 L Creatinine 0.46 L Calcium 7.4 L* <Saeed Greene - 10/15/17 10:26> Physical Exam Vital signs: Vital Signs 10/14/17 21:30 10/15/17 00:40 10/15/17 05:40 Temperature 98 F 97.7 F 98.8 F Pulse Rate 112 H 110 H 110 H Respiratory Rate 18 17 18 Blood Pressure 119/69 118/70 122/64 Pulse Oximetry 98 97 96 10/15/17 08:00 10/15/17 10:05 10/15/17 10:26 Temperature 97.3 F L 97.8 F 97.8 F Pulse Rate 122 H 117 H 117 H Respiratory Rate 20 16 16 Blood Pressure 145/71 H 138/75 138/75 Pulse Oximetry 99 10/15/17 11:57 10/15/17 12:15 10/15/17 12:30 Temperature 97.5 F L Pulse Rate 117 H 107 H 108 H Respiratory Rate 12 11 L 12 Blood Pressure 138/81 125/67 122/65 Pulse Oximetry 99 99 99 10/15/17 12:33 10/15/17 12:45 10/15/17 12:49 Temperature 97.5 F L 97.5 F L Pulse Rate 110 H 110 H 113 H Respiratory Rate 11 L 12 13 Blood Pressure 122/65 136/84 142/76 H Pulse Oximetry 100 97 100 10/15/17 13:00 10/15/17 13:05 10/15/17 13:11 Temperature Pulse Rate 105 H 105 H Respiratory Rate 11 L 12 Blood Pressure 139/68 139/68 Pulse Oximetry 100 100 100 Intake & Output 10/14/17 10/15/17 10/15/17 18:59 06:59 18:59 Intake Total 1100 / 1100 1300 / 1300 800 / 800 Output Total 1400 / 1400 1999 20 / 20 Balance -300 / -300 -700 / -700 780 / 780 Weight 120 kg Intake: IV 1100 / 1100 200 / 200 NS Inj 1,000 ML @ 100 mls/hr IV 1000 / 1000 .CONT .Q10H [facility] Rx#:[id number] Maxipime Inj 2,000 MG In NS Inj 100 / 100 200 / 200 100 ML @ 200 mls/hr IV.SIG Q8H [facility] Rx#:[id number] Oral 1100 / 1100 Anesthesia Amount 800 / 800 Intake (Blood Product) Amt 0 / 0 Rbc As-3 Leukoreduced Unit 0 / 0 [id number] Output: Stool 0 / 0 Estimated Blood Loss 20 / 20 Urine Amount (Catheter) 1400 / 1400 1999 Indwelling Urethral Catheter 1399 / 1399 Other: Date of Last Bowel Movement 07/29/18 07/29/18 # Bowel Movements 1 <John Joseph - 10/15/17 16:21> Vital Signs 10/14/17 12:00 10/14/17 16:00 10/14/17 21:30 Temperature 98.4 F 98.6 F 98 F Pulse Rate 105 H 112 H 112 H Respiratory Rate 12 14 18 Blood Pressure 109/55 L 123/59 L 119/69 Pulse Oximetry 99 97 98 10/15/17 00:40 10/15/17 05:40 10/15/17 08:00 Temperature 97.7 F 98.8 F 97.3 F L Pulse Rate 110 H 110 H 122 H Respiratory Rate 17 18 20 Blood Pressure 118/70 122/64 145/71 H Pulse Oximetry 97 96 99 10/15/17 10:05 Temperature 97.8 F Pulse Rate 117 H Respiratory Rate 16 Blood Pressure 138/75 Pulse Oximetry Intake & Output 10/14/17 10/15/17 10/15/17 18:59 06:59 18:59 Intake Total 1100 / 1100 1300 / 1300 Output Total 1400 / 1400 1999 Balance -300 / -300 -700 / -700 Weight 120 kg Intake: IV 1100 / 1100 200 / 200 NS Inj 1,000 ML @ 100 mls/hr IV 1000 / 1000 .CONT .Q10H [facility] Rx#:[id number] Maxipime Inj 2,000 MG In NS Inj 100 / 100 200 / 200 100 ML @ 200 mls/hr IV.SIG Q8H [facility] Rx#:[id number] Oral 1100 / 1100 Output: Stool 0 / 0 Urine Amount (Catheter) 1399 / 1400 1999 Indwelling Urethral Catheter 1399 / 1399 Other: Date of Last Bowel Movement 10/14/17 10/14/17 # Bowel Movements 1 <Saeed Greene - 10/15/17 10:26> Narrative: GENERAL: Obese female laying in bed, no acute distress SKIN: Warm and dry. Wound VAC in place underneath pannus, appears clean/ intact. Increased sanguinous drainage beneath dressing from yesterday. Sanguinous drainage in vacuum container. HEAD: Normocephalic. EYES: No scleral icterus. No injection or drainage. NECK: Supple, trachea midline. No JVD or lymphadenopathy. CARDIOVASCULAR: Regular rate and rhythm without murmurs, gallops, or rubs. RESPIRATORY: Decreased breath sounds in bases bilaterally, improved with increased patient effort. No accessory muscle use. GASTROINTESTINAL: Abdomen soft, non-tender, nondistended. Normoactive bowel sounds rectal tube present. EXTREMITIES: Skin of L lower leg peeling from knee to ankle, erythematous. L pedal edema 1+. Trace R pedal edema. : Hopper catheter in place light yellow fluid. <Saeed Greene 10/15/17 10:26> - Urinary Catheter Management Indwelling Urethral Catheter Cath placed during this visit: no <John Joseph 10/15/17 16:21> yes, but has since been removed by the nurse <JaalexaSaeed Wallace 10/15/17 10:26> Reason for continuing: Severe pressure ulcer/wound <JaalexaSaeed Wallace 10:26> Insertion date: 09/27/17 <RamonaSaeed Wallace 10/15/17 10:26> Insertion time: 08:20 <RamonaSaeed Wallace 10/15/17 10:26> Removal date: 10/05/17 <RamonaSaeed Wallace 10/15/17 10:26> Removal time: 17:30 <RamonaSaeed Wallace 10/15/17 10:26> Assessment and Plan - Assessment (1) Fungal infection of skin of abdomen Code(s): B36.9 - Superficial mycosis, unspecified Status: Acute (2) Cellulitis of knee, left Code(s): L03.116 - Cellulitis of left lower limb Status: Acute (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 - Infection and inflammatory reaction due to unspecified internal joint prosthesis, initial encounter Status: Suspected (4) Pneumonia Code(s): J18.9 - Pneumonia, unspecified organism Status: Resolved (5) Diarrhea Code(s): R19.7 - Diarrhea, unspecified Status: Resolved (6) Schizophrenia Code(s): F20.9 - Schizophrenia, unspecified Status: Chronic (7) Hypertension Code(s): I10 - Essential (primary) hypertension Status: Acute (8) Nutrition, metabolism, and development symptoms Code(s): R63.8 - Other symptoms and signs concerning food and fluid intake Status: Acute <John Joseph 10/15/17 16:21> (1) Fungal infection of skin of abdomen Code(s): B36.9 - Superficial mycosis, unspecified Status: Acute Plan: Presented on admission with what appears to be transcutaneous rash under the abdominal folds and groin area. Skin wound now in perineum just proximal to the anus. -Surgical procedure 10/09, wound VAC applied. VAC changed 10/12. Possible wound vac removal 10/15 in OR. -Continue current course of antibiotics -White blood cell count increased to 31 today from 23 yesterday. Patient has remained afebrile with no increase in tachycardia. Thus far tissue samples from OR have not grown anything. Continue to monitor for signs of worsening infection. -Repeat CBC in a.m. (2) Cellulitis of knee, left Code(s): L03.116 - Cellulitis of left lower limb Status: Acute Plan: -Pt s/p 2 weeks of Keflex 500mg po -Knee looks improved from reported exam on admission. Minimal swelling. No erythema. Non tender to palpation. Patient has been OOB with assistance -S/p PICC line placement. 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 She completed rehabilitation and was discharged home August 23. Patient was on approximately 2 weeks of po Keflex 500 mg. Per Ortho, examination of left knee shows no evidence of infection. - See plan above for left leg cellulitis (4) Pneumonia Code(s): J18.9 - Pneumonia, unspecified organism Status: Resolved Plan: Patient found to have left lower lobe consolidation on chest CTA. Lungs CTAB today. She remains afebrile, with O2 sat WNL on room air. Patient currently on Levaquin. -Continue to monitor vital signs -Continue incentive spirometry (5) Diarrhea Code(s): R19.7 - Diarrhea, unspecified Status: Resolved Plan: On admission patient presented with 3-day history of diarrhea in the setting of recent antibiotics. All bowel regimens held. Patient C. difficile negative. -Diarrhea has improved and decreasing frequency. Continue with probiotics. (6) Schizophrenia Code(s): F20.9 - Schizophrenia, unspecified Status: Chronic Plan: Patient with chronic history of schizophrenia. On admission patient presented with active hallucinations of seeing someone out to get her. -No hallucinations over night -Psych consulted- recommend Continue Abilify 30 mg for psychosis, okay to continue buspirone 30 mg, trazodone 100 mg and Cymbalta 60 mg -Hold anticholinergics per Psych (7) Hypertension Code(s): I10 - Essential (primary) hypertension Status: Acute Plan: Patient with history of HTN on home diltiazem. - cardizem dose previously decreased to 60mg TID due prior to c/o of lightheadedness upon standing and working with physical therapy -continue to monitor (8) Nutrition, metabolism, and development symptoms Code(s): R63.8 - Other symptoms and signs concerning food and fluid intake Status: Acute Plan: Fluids: 100mls/hr Electrolytes: Replete as needed Nutrition: cardiac diet, continue to monitor po intake, supplement with ensure. Encouraged patient that she needed to increase p.o. intake in order to heal DVT prophylaxis: SCDs Continue to work with PT to get OOB <Saeed Greene - 10/15/17 10:24> - Assessment and Plan . <Saeed Greene - 10/15/17 10:26> - Attending Attestation Patient examined independently and case discussed with resident physicians I have read the above note and agree with the assessment/plan as discussed with me I was involved in all medical decision making for this patient John Joseph MD <John Joseph - 10/15/17 16:21> <Saeed Greene - Last Filed: 10/15/17 10:24> (4) Pneumonia Qualifiers: Pneumonia type: due to unspecified organism Laterality: left Lung location: lower lobe of lung Qualified Code(s): J18.1 - Lobar pneumonia, unspecified organism (7) Hypertension Qualifiers: Hypertension type: essential hypertension Qualified Code(s): I10 - Essential (primary) hypertension <JakeHafsay - Last Filed: 10/15/17 16:21> (4) Pneumonia Qualifiers: Pneumonia type: due to unspecified organism Laterality: left Lung location: lower lobe of lung Qualified Code(s): J18.1 - Lobar pneumonia, unspecified organism (7) Hypertension Qualifiers: Hypertension type: essential hypertension Qualified Code(s): I10 - Essential (primary) hypertension <Saeed Greene - Last Filed: 10/15/17 10:24> (4) Pneumonia Qualifiers: Pneumonia type: due to unspecified organism Laterality: left Lung location: lower lobe of lung Qualified Code(s): J18.1 - Lobar pneumonia, unspecified organism (7) Hypertension Qualifiers: Hypertension type: essential hypertension Qualified Code(s): I10 - Essential (primary) hypertension <Hafsa Josephy - Last Filed: 10/15/17 16:21> (4) Pneumonia Qualifiers: Pneumonia type: due to unspecified organism Laterality: left Lung location: lower lobe of lung Qualified Code(s): J18.1 - Lobar pneumonia, unspecified organism (7) Hypertension Qualifiers: Hypertension type: essential hypertension Qualified Code(s): I10 - Essential (primary) hypertension
[2017-10-15] MEDS ORDERED: Succinylcholine Inj 100 MG/5 ML Syringe IV.PUSH ONE (12:00)
--- NOTE | 2017-10-15 12:19 | P.OP ---
- Preoperative Diagnosis (1) Skin ulcer of abdominal wall, limited to breakdown of skin - Postoperative Diagnosis (1) Skin ulcer of abdominal wall, limited to breakdown of skin Date of procedure: 10/15/17 Procedure: vac change with closure of abdominal wall Anesthesia: GETA Surgeon: Jose Schneider MD Estimated blood loss (mL): 20 Pathology: none sent Operation and Findings: good hemostasis
[2017-10-15] MEDS: Folic Acid 1 MG Tablet PO SCH (13:00)
[2017-10-15] MEDS: Heparin Central Flush 100 UNIT/ML 5 ML Vial IV.FLUSH SCH (14:48)
[2017-10-15] MEDS: Duloxetine 60 MG DR Capsule PO SCH (14:48)
[2017-10-15] MEDS: traZODone 100 MG Tablet PO SCH (14:49)
[2017-10-15] MEDS: Metoprolol Tartrate 25 MG Tablet PO SCH ×2 (14:50→21:27)
[2017-10-15] MEDS: levoFLOXacin 750 MG Tablet PO SCH (14:50)
[2017-10-15] MEDS: Pantoprazole Sodium 20 MG DR Tablet PO SCH (14:51)
--- NOTE | 2017-10-15 15:18 | P.PNOP ---
Subjective Interval history: pt has no complaints of left knee pain s/p L TKA 07/26/17 pt is s/p abdominal wound debridement today, 10/15/17, by Dr. Schneider I was asked by Dr. Schneider to re-evaluate the patient's left knee today Patient has shown no signs or symptoms of left knee infection at any time during this admission or post op. Physical Exam Vital signs: Vital Signs 10/14/17 16:00 10/14/17 21:30 10/15/17 00:40 Temperature 98.6 F 98 F 97.7 F Pulse Rate 112 H 112 H 110 H Respiratory Rate 14 18 17 Blood Pressure 123/59 L 119/69 118/70 Pulse Oximetry 97 98 97 10/15/17 05:40 10/15/17 08:00 10/15/17 10:05 Temperature 98.8 F 97.3 F L 97.8 F Pulse Rate 110 H 122 H 117 H Respiratory Rate 18 20 16 Blood Pressure 122/64 145/71 H 138/75 Pulse Oximetry 96 99 10/15/17 10:26 10/15/17 11:57 10/15/17 12:15 Temperature 97.8 F 97.5 F L Pulse Rate 117 H 117 H 107 H Respiratory Rate 16 12 11 L Blood Pressure 138/75 138/81 125/67 Pulse Oximetry 99 99 10/15/17 12:30 10/15/17 12:33 10/15/17 12:45 Temperature 97.5 F L Pulse Rate 108 H 110 H 110 H Respiratory Rate 12 11 L 12 Blood Pressure 122/65 122/65 136/84 Pulse Oximetry 99 100 97 10/15/17 12:49 10/15/17 13:00 10/15/17 13:05 Temperature 97.5 F L Pulse Rate 113 H 105 H Respiratory Rate 13 11 L Blood Pressure 142/76 H 139/68 Pulse Oximetry 100 100 100 10/15/17 13:11 Temperature Pulse Rate 105 H Respiratory Rate 12 Blood Pressure 139/68 Pulse Oximetry 100 Intake & Output 10/14/17 10/15/17 10/15/17 18:59 06:59 18:59 Intake Total 1100 / 1100 1300 / 1300 800 / 800 Output Total 1400 / 1400 2000 / 2000 20 / 20 Balance -300 / -300 -700 / -700 780 / 780 Weight 120 kg Intake: IV 1100 / 1100 200 / 200 NS Inj 1,000 ML @ 100 mls/hr IV 1000 / 1000 .CONT .Q10H [facility] Rx#:[id number] Maxipime Inj 2,000 MG In NS Inj 100 / 100 200 / 200 100 ML @ 200 mls/hr IV.SIG Q8H [facility] Rx#:[id number] Oral 1100 / 1100 Anesthesia Amount 800 / 800 Intake (Blood Product) Amt 0 / 0 Rbc As-3 Leukoreduced Unit 0 / 0 [id number] Output: Stool 0 / 0 Estimated Blood Loss 20 / 20 Urine Amount (Catheter) 1399 Indwelling Urethral Catheter 1399 Other: Date of Last Bowel Movement 10/14/17 10/14/17 # Bowel Movements 1 Narrative: pt comfortable, eating her dinner left knee has normal healing wound, small 3 mm scab was removed, no drainage from wound, no knee effusion, satisfactory range of motion, no pain with palpation or ROM of the knee rectal tube and herrera in place Alert and oriented - Urinary Catheter Management Indwelling Urethral Catheter Cath placed during this visit: yes, but has since been removed by the nurse Reason for continuing: Severe pressure ulcer/wound Insertion date: 09/27/17 Insertion time: 08:20 Removal date: 10/05/17 Removal time: 17:30 Results - Labs CBC & Chem 7: 10/15/17 06:49 10/15/17 06:49 Laboratory Results - last 24 hr 10/09/17 10/15/17 10/15/17 11:40 06:49 06:49 WBC 27.9 H RBC 2.84 L Hgb 7.7 L Hct 23.2 L MCV 81.4 MCH 27.1 MCHC 33.3 RDW 18.4 H Plt Count 285 MPV 6.8 L Sodium 141 Potassium 3.9 Chloride 111 H Carbon Dioxide 25.3 Anion Gap 5 BUN 6 L Creatinine 0.46 L Estimated GFR Greater than 89 Random Glucose 58 L Calcium 7.4 L* Prot Corrected Calcium 9.0 Total Protein 4.4 L Blood Type Antibody Screen MTS Gel Crossmatch See Detail 10/15/17 11:05 WBC RBC Hgb Hct MCV MCH MCHC RDW Plt Count MPV Sodium Potassium Chloride Carbon Dioxide Anion Gap BUN Creatinine Estimated GFR Random Glucose Calcium Prot Corrected Calcium Total Protein Blood Type O Positive Antibody Screen Negative MTS Gel Crossmatch See Detail Assessment and Plan - Assessment and Plan s/p L TKA 07/26/[address] Dasha Frausto cellulitis lower abdominal wall IV abx per ID left knee examination shows no evidence of infection PT- out of bed for ambulation anticipate d/c to SNF when stable continue med management
--- NOTE | 2017-10-16 06:36 | MP ---
cc: Jose Schneider MD DATE OF OPERATION: 10/15/2017 PREOPERATIVE DIAGNOSIS: Ulceration with infection inferior abdominal wall and bilateral proximal medial thighs. POSTOPERATIVE DIAGNOSIS: Ulceration with infection inferior abdominal wall and bilateral proximal medial thighs. PROCEDURE PERFORMED: Incision and drainage with VAC change and VAC removal of the abdomen and bilateral medial anterior thighs. SURGEON: Jose Schneider MD SYSTEM SUPPORT TECHNICIAN: RAMYA. IV FLUIDS: See anesthesia. BLOOD LOSS: 20 mL. DRAINS: A 19-Stateless Barney drain already in place. WOUND CLASSIFICATION: Contaminated. FINDINGS: Good hemostasis. SPECIMENS: None. INDICATIONS: The patient is a 51-year-old female who presented with a skin and soft tissue infection lower abdomen and bilateral thighs. The first attempt at antibiotics and nonoperative management with failure of treatment with this route, therefore, the decision was made for excision. The patient had a VAC in place for repeat debridement and washout along with removal. DETAILS OF PROCEDURE: The patient was taken to the operating suite, placed into the lithotomy position. She was prepped and draped in the usual sterile fashion after induction of general endotracheal anesthesia. A brief timeout done stating correct patient, procedure, and surgical site. We were all in agreement with this. Attention first directed to the plastic wound VAC drape. This was removed, the VAC sponge was removed. The skin noted to be well healing and well approximated. Minimal blood clot was extruded from the right side of the abdomen. Two sutures were removed and an irrigation done to this area with hemostasis and SNoW clotting agent was placed. Sutures were placed #2 nylons in a vertical mattress for tissue approximation. The previous medial area where the VAC sponge had been looked well healing with no undrained fluid collections or signs of infection, therefore, decision was made for closure. The previously placed 19-Stateless Barney drain was in place. Interrupted #2 nylon sutures were done to close this tissue defect. Irrigation done. The wound dressings then placed including Xeroform, 4 x 4's, bolster dressing. The patient tolerated the procedure well. There were no intraoperative complications. All lap and instrument counts were correct at the end of the procedure. The patient was extubated and taken to the PACU. Jose Schneider MD LSN/YAMILET Lewis: 10/16/2017, 06:21 AM , 06:28 AM
[2017-10-16 08:06] LABS: Baso % (Auto) 0.1 % (0.0-2.0); Hematocrit 27.7 % (35.0-46.0); Hemoglobin 9.2 gm/dL (11.6-15.3); Lymph # (Auto) 1.9 th/mm3 (1.0-4.8); Lymph % (Auto) 7.1 % (9.0-44.0); Mean Corpuscular HGB Conc 33.2 % (32.0-36.0); Mean Corpuscular Hemoglobin 27.2 pg (27.0-34.0); Mean Corpuscular Volume 81.9 fL (80.0-100.0); Mean Platelet Volume 7.4 fL (7.0-11.0); Mono # (Auto) 1.6 th/mm3 (0.0-0.9); Mono % (Auto) 5.9 % (0.0-8.0); Neut # (Auto) 23.4 th/mm3 (1.8-7.7); Neut % (Auto) 86.9 % (16.0-70.0); Platelet Count 351 th/mm3 (150-450); Red Blood Count 3.38 mil/mm3 (4.00-5.30); Red Cell Distribution Width 17.7 % (11.6-17.2); White Blood Count 26.9 th/mm3 (4.0-11.0)
[2017-10-16 08:34] LABS: Anion Gap 7 meq/L (5-15); Blood Urea Nitrogen 6 mg/dL (7-18); Calcium 7.6 mg/dL (8.5-10.1); Carbon Dioxide 23.2 meq/L (21.0-32.0); Chloride 108 meq/L (98-107); Glomerular Filtration Rate Greater Than 89 mL/min (>89); Glucose,Random 73 mg/dL (74-106); Potassium 4.4 meq/L (3.5-5.1); Sodium 138 meq/L (136-145)
[2017-10-16] MEDS: traZODone 100 MG Tablet PO SCH (08:58)
[2017-10-16] MEDS: dilTIAZem 60 MG Tablet PO SCH ×3 (08:58→17:47)
[2017-10-16] MEDS: Duloxetine 60 MG DR Capsule PO SCH (08:59)
[2017-10-16] MEDS: levoFLOXacin 750 MG Tablet PO SCH (08:59)
[2017-10-16] MEDS: Pantoprazole Sodium 20 MG DR Tablet PO SCH (08:59)
[2017-10-16] MEDS: Heparin Central Flush 100 UNIT/ML 5 ML Vial IV.FLUSH SCH (09:00)
[2017-10-16] MEDS: Folic Acid 1 MG Tablet PO SCH (09:00)
[2017-10-16] MEDS: Metoprolol Tartrate 25 MG Tablet PO SCH ×2 (09:00→21:26)
[2017-10-16 09:03] LABS: Lymphocytes 5 % (9-44); Monocytes 4 % (0-8); Platelet Estimate Normal (Normal); Platelet Morphology Normal (Normal); Tallied Nucleated RBC 1 (0-0)
--- NOTE | 2017-10-16 09:22 | P.PNFP ---
Subjective Interval history: Ms. Mcclain seen on rounds today. She is postop day 1 from her 3rd debridement. No overnight events. She denies chest pain, shortness of breath, nausea, vomiting, fevers, chills, abdominal pain, leg pain. Reports that she has been drinking her boost shakes. <Patsy Baxter - 10/16/17 09:21> Results - Labs Result diagrams: 10/16/17 07:15 10/16/17 07:15 <John Joseph - 10/16/17 19:19> Abnormal lab results 10/16/17 10/16/17 Range/Units 07:15 07:15 WBC 26.9 H (4.0-11.0) th/mm3 RBC 3.38 L (4.00-5.30) mil/mm3 Hgb 9.2 L (11.6-15.3) gm/dL Hct 27.7 L (35.0-46.0) % RDW 17.7 H (11.6-17.2) % Neut % (Auto) 86.9 H (16.0-70.0) % Lymph % (Auto) 7.1 L (9.0-44.0) % Neut # (Auto) 23.4 H (1.8-7.7) th/mm3 [place] # (Auto) 1.6 H (0.0-0.9) th/mm3 Seg Neuts % (Manual) 90 H (16-70) % Lymphocytes % (Manual) 5 L (9-44) % Abs Neuts (Manual) 24.5 H (1.8-7.7) th/mm3 Nucleated RBCs/100 WBC 1 H (0-0) /100 WBC Keratocytes Occ H (None) Chloride 108 H (98-107) meq/L BUN 6 L (7-18) mg/dL Creatinine 0.46 L (0.50-1.00) mg/dL Random Glucose 73 L (74-106) mg/dL Calcium 7.6 L (8.5-10.1) mg/dL Short CBC 10/16/17 Range/Units 07:15 WBC 26.9 H (4.0-11.0) th/mm3 Hgb 9.2 L (11.6-15.3) gm/dL Hct 27.7 L (35.0-46.0) % Plt Count 351 (150-450) th/mm3 [facility] 10/16/17 07:15 Sodium 138 Potassium 4.4 Chloride 108 H Carbon Dioxide 23.2 BUN 6 L Creatinine 0.46 L Calcium 7.6 L <John Joseph - 10/16/17 19:19> Abnormal lab results 10/09/17 10/15/17 10/16/17 Range/Units 11:40 11:05 07:15 WBC 26.9 H (4.0-11.0) th/mm3 RBC 3.38 L (4.00-5.30) mil/mm3 Hgb 9.2 L (11.6-15.3) gm/dL Hct 27.7 L (35.0-46.0) % RDW 17.7 H (11.6-17.2) % Neut % (Auto) 86.9 H (16.0-70.0) % Lymph % (Auto) 7.1 L (9.0-44.0) % Neut # (Auto) 23.4 H (1.8-7.7) th/mm3 [place] # (Auto) 1.6 H (0.0-0.9) th/mm3 Seg Neuts % (Manual) 90 H (16-70) % Lymphocytes % (Manual) 5 L (9-44) % Abs Neuts (Manual) 24.5 H (1.8-7.7) th/mm3 Nucleated RBCs/100 WBC 1 H (0-0) /100 WBC Keratocytes Occ H (None) Chloride (98-107) meq/L BUN (7-18) mg/dL Creatinine (0.50-1.00) mg/dL Random Glucose (74-106) mg/dL Calcium (8.5-10.1) mg/dL MTS Gel Crossmatch See Detail See Detail 10/16/17 Range/Units 07:15 WBC (4.0-11.0) th/mm3 RBC (4.00-5.30) mil/mm3 Hgb (11.6-15.3) gm/dL Hct (35.0-46.0) % RDW (11.6-17.2) % Neut % (Auto) (16.0-70.0) % Lymph % (Auto) (9.0-44.0) % Neut # (Auto) (1.8-7.7) th/mm3 [place] # (Auto) (0.0-0.9) th/mm3 Seg Neuts % (Manual) (16-70) % Lymphocytes % (Manual) (9-44) % Abs Neuts (Manual) (1.8-7.7) th/mm3 Nucleated RBCs/100 WBC (0-0) /100 WBC Keratocytes (None) Chloride 108 H (98-107) meq/L BUN 6 L (7-18) mg/dL Creatinine 0.46 L (0.50-1.00) mg/dL Random Glucose 73 L (74-106) mg/dL Calcium 7.6 L (8.5-10.1) mg/dL MTS Gel Crossmatch Short CBC 10/16/17 Range/Units 07:15 WBC 26.9 H (4.0-11.0) th/mm3 Hgb 9.2 L (11.6-15.3) gm/dL Hct 27.7 L (35.0-46.0) % Plt Count 351 (150-450) th/mm3 [facility] 10/16/17 07:15 Sodium 138 Potassium 4.4 Chloride 108 H Carbon Dioxide 23.2 BUN 6 L Creatinine 0.46 L Calcium 7.6 L <Patsy Baxter - 10/16/17 09:21> Physical Exam Vital signs: Vital Signs 10/15/17 20:00 10/16/17 00:00 10/16/17 02:03 Temperature 98.4 F 98.2 F Pulse Rate 120 H 92 H 107 H Respiratory Rate 18 18 Blood Pressure 153/87 H 121/67 Pulse Oximetry 98 96 10/16/17 04:00 10/16/17 08:00 10/16/17 12:00 Temperature 98.5 F 98 F 97.5 F L Pulse Rate 107 H 108 H 59 L Respiratory Rate 16 17 Blood Pressure 133/91 H 173/83 H 140/62 Pulse Oximetry 94 L 97 95 10/16/17 16:00 10/16/17 16:33 Temperature 98.4 F Pulse Rate 107 H Respiratory Rate 17 17 Blood Pressure 133/62 Pulse Oximetry 95 Intake & Output 10/16/17 10/16/17 10/17/17 06:59 18:59 06:59 Intake Total 200 / 200 1200 / 1200 1400 / 1400 Output Total 900 / 900 1999 / 1999 930 / 930 Balance -700 / -700 -800 / -800 470 / 470 Weight 115.4 kg Intake: IV 200 / 200 1200 / 1200 NS Inj 1,000 ML @ 100 mls/hr IV 1000 / 1000 .CONT .Q10H [facility] Rx#:[id number] Maxipime Inj 2,000 MG In NS Inj 200 / 200 200 / 200 100 ML @ 200 mls/hr IV.SIG Q8H [facility] Rx#:[id number] Oral 600 / 600 Anesthesia Amount 800 / 800 Output: Urine 900 / 900 800 / 800 800 / 800 Stool 0 / 0 Urine/Stool Mix 50 / 50 Estimated Blood Loss 20 / 20 Urine Amount (Catheter) 1200 / 1200 Indwelling Urethral Catheter 1200 / 1200 Wound Drainage 60 / 60 ZAMZAM Drain 60 / 60 Other: Mode Setting Left Upper Groin Continuous Midline Groin Continuous Perineal Continuous Right Lower Groin Thigh Continuous # Voids 2 # Incontinent Voids 1 Date of Last Bowel Movement 10/15/17 10/15/17 10/15/17 # Bowel Movements 1 # Incontinent Bowel Movements 2 # Emeses 1 <John Joseph - 10/16/17 19:19> Vital Signs 10/15/17 10:05 10/15/17 10:26 10/15/17 11:57 Temperature 97.8 F 97.8 F 97.5 F L Pulse Rate 117 H 117 H 117 H Respiratory Rate 16 16 12 Blood Pressure 138/75 138/75 138/81 Pulse Oximetry 99 10/15/17 12:15 10/15/17 12:30 10/15/17 12:33 Temperature 97.5 F L Pulse Rate 107 H 108 H 110 H Respiratory Rate 11 L 12 11 L Blood Pressure 125/67 122/65 122/65 Pulse Oximetry 99 99 100 10/15/17 12:45 10/15/17 12:49 10/15/17 13:00 Temperature 97.5 F L Pulse Rate 110 H 113 H 105 H Respiratory Rate 12 13 11 L Blood Pressure 136/84 142/76 H 139/68 Pulse Oximetry 97 100 100 10/15/17 13:05 10/15/17 13:11 10/15/17 16:00 Temperature 98.1 F Pulse Rate 105 H 114 H Respiratory Rate 12 20 Blood Pressure 139/68 150/92 H Pulse Oximetry 100 100 98 10/15/17 17:00 10/15/17 20:00 10/16/17 00:00 Temperature 98.4 F 98.2 F Pulse Rate 127 H 120 H 92 H Respiratory Rate 18 18 Blood Pressure 153/87 H 121/67 Pulse Oximetry 98 96 10/16/17 02:03 10/16/17 04:00 Temperature 98.5 F Pulse Rate 107 H 107 H Respiratory Rate Blood Pressure 133/91 H Pulse Oximetry 94 L Intake & Output 10/15/17 10/16/17 10/16/17 18:59 06:59 18:59 Intake Total 900 / 900 200 / 200 Output Total 20 / 20 900 / 900 1200 / 1200 Balance 880 / 880 -700 / -700 -1200 / -1200 Weight 115.4 kg Intake: IV 100 / 100 200 / 200 Maxipime Inj 2,000 MG In NS Inj 100 / 100 200 / 200 100 ML @ 200 mls/hr IV.SIG Q8H [facility] Rx#:[id number] Anesthesia Amount 800 / 800 Intake (Blood Product) Amt 0 / 0 Rbc As-3 Leukoreduced Unit 0 / 0 [id number] Output: Urine 900 / 900 Estimated Blood Loss 20 / 20 Urine Amount (Catheter) 1200 / 1200 Indwelling Urethral Catheter 1200 / 1200 Other: Date of Last Bowel Movement 10/15/17 <Patsy Baxter - 10/16/17 09:21> Narrative: Narrative: GENERAL: Obese female laying in bed, no acute distress SKIN: Warm and dry. Pressure dressing in place on abdominal ulcer. HEAD: Normocephalic. EYES: No scleral icterus. No injection or drainage. NECK: Supple, trachea midline. No JVD or lymphadenopathy. CARDIOVASCULAR: Regular rate and rhythm without murmurs, gallops, or rubs. RESPIRATORY: Decreased breath sounds in bases bilaterally, improved with increased patient effort. No accessory muscle use. GASTROINTESTINAL: Abdomen soft, non-tender, nondistended. Normoactive bowel sounds. rectal tube present. EXTREMITIES: Skin of L lower leg peeling from knee to ankle, improved erythema. L pedal edema 1+. Trace R pedal edema. : Hopper catheter in place, light yellow fluid in bag. <Patsy Baxter - 10/16/17 09:21> - Urinary Catheter Management Indwelling Urethral Catheter Cath placed during this visit: no <John Joseph - 10/16/17 19:19> yes, but has since been removed by the nurse <Patsy Baxter 10/16/17 09:21> Reason for continuing: Severe pressure ulcer/wound <Patsy Baxter 10/16/17 09:21> Insertion date: 09/27/17 <Patsy Bxater 10/16/17 09:21> Insertion time: 08:20 <Patsy Baxter 10/16/17 09:21> Removal date: 10/05/17 <Patsy Baxter 10/16/17 09:21> Removal time: 17:30 <Patsy Baxter 10/16/17 09:21> Assessment and Plan - Assessment (1) Fungal infection of skin of abdomen Code(s): B36.9 - Superficial mycosis, unspecified Status: Acute (2) Cellulitis of knee, left Code(s): L03.116 - Cellulitis of left lower limb Status: Acute (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 - Infection and inflammatory reaction due to unspecified internal joint prosthesis, initial encounter Status: Suspected (4) Pneumonia Code(s): J18.9 - Pneumonia, unspecified organism Status: Resolved (5) Diarrhea Code(s): R19.7 - Diarrhea, unspecified Status: Resolved (6) Schizophrenia Code(s): F20.9 - Schizophrenia, unspecified Status: Chronic (7) Hypertension Code(s): I10 - Essential (primary) hypertension Status: Acute (8) Nutrition, metabolism, and development symptoms Code(s): R63.8 - Other symptoms and signs concerning food and fluid intake Status: Acute <John Joseph - 10/16/17 19:19> (1) Fungal infection of skin of abdomen Code(s): B36.9 - Superficial mycosis, unspecified Status: Acute Plan: Presented on admission with what appears to be transcutaneous rash under the abdominal folds and groin area. Skin wound now in perineum just proximal to the anus. -Surgical procedure 10/09, wound VAC applied. VAC changed 10/12 and 10/15. -Continue current course of antibiotics -White blood cell count decreasing. Patient has remained afebrile with no increase in tachycardia. Thus far tissue samples from OR have not grown anything. Continue to monitor for signs of worsening infection. -Repeat CBC in a.m. (2) Cellulitis of knee, left Code(s): L03.116 - Cellulitis of left lower limb Status: Acute Plan: -Pt s/p 2 weeks of Keflex 500mg po -Patient was evaluated by ortho yesterday with no changes to management recommended -Knee looks improved from reported exam on admission. Minimal swelling. No erythema. Non tender to palpation. Patient has been OOB with assistance -S/p PICC line placement. 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 She completed rehabilitation and was discharged home August 23. Patient was on approximately 2 weeks of po Keflex 500 mg. Per Ortho, examination of left knee shows no evidence of infection. - See plan above for left leg cellulitis (4) Pneumonia Code(s): J18.9 - Pneumonia, unspecified organism Status: Resolved Plan: Patient found to have left lower lobe consolidation on chest CTA. Lungs CTAB today. She remains afebrile, with O2 sat WNL on room air. Patient currently on Levaquin. -Continue to monitor vital signs -Continue incentive spirometry (5) Diarrhea Code(s): R19.7 - Diarrhea, unspecified Status: Resolved Plan: On admission patient presented with 3-day history of diarrhea in the setting of recent antibiotics. All bowel regimens held. Patient C. difficile negative. -Patient has a rectal tube in place. Continue with probiotics. (6) Schizophrenia Code(s): F20.9 - Schizophrenia, unspecified Status: Chronic Plan: Patient with chronic history of schizophrenia. On admission patient presented with active hallucinations of seeing someone out to get her. -No hallucinations over night -Psych consulted- recommend Continue Abilify 30 mg for psychosis, okay to continue buspirone 30 mg, trazodone 100 mg and Cymbalta 60 mg -Hold anticholinergics per Psych (7) Hypertension Code(s): I10 - Essential (primary) hypertension Status: Acute Plan: Patient with history of HTN on home diltiazem. - cardizem dose previously decreased to 60mg TID due prior to c/o of lightheadedness upon standing and working with physical therapy -continue to monitor (8) Nutrition, metabolism, and development symptoms Code(s): R63.8 - Other symptoms and signs concerning food and fluid intake Status: Acute Plan: Fluids: 100mls/hr Electrolytes: Replete as needed Nutrition: cardiac diet, continue to monitor po intake, supplement with ensure. Encouraged patient that she needed to increase p.o. intake in order to heal DVT prophylaxis: SCDs Continue to work with PT to get OOB <Patsy Baxter - 10/16/17 09:10> - Assessment and Plan Discussed Condition With: Dirk Joseph and Ramona <Patsy Baxter - 10/16/17 09:21> - Attending Attestation Pt. examined independently and case discussed with resident physicians. I have read the above note and agree with the assessment and plan as discussed with me. I was involved in all medical decision making for this patient. John Joseph MD <John Joseph - 10/16/17 19:19> <Patsy Baxter - Last Filed: 10/16/17 09:10> (4) Pneumonia Qualifiers: Pneumonia type: due to unspecified organism Laterality: left Lung location: lower lobe of lung Qualified Code(s): J18.1 - Lobar pneumonia, unspecified organism (7) Hypertension Qualifiers: Hypertension type: essential hypertension Qualified Code(s): I10 - Essential (primary) hypertension <John Joseph - Last Filed: 10/16/17 19:19> (4) Pneumonia Qualifiers: Pneumonia type: due to unspecified organism Laterality: left Lung location: lower lobe of lung Qualified Code(s): J18.1 - Lobar pneumonia, unspecified organism (7) Hypertension Qualifiers: Hypertension type: essential hypertension Qualified Code(s): I10 - Essential (primary) hypertension <Patsy Baxter E - Last Filed: 10/16/17 09:10> (4) Pneumonia Qualifiers: Pneumonia type: due to unspecified organism Laterality: left Lung location: lower lobe of lung Qualified Code(s): J18.1 - Lobar pneumonia, unspecified organism (7) Hypertension Qualifiers: Hypertension type: essential hypertension Qualified Code(s): I10 - Essential (primary) hypertension <John Joseph - Last Filed: 10/16/17 19:19> (4) Pneumonia Qualifiers: Pneumonia type: due to unspecified organism Laterality: left Lung location: lower lobe of lung Qualified Code(s): J18.1 - Lobar pneumonia, unspecified organism (7) Hypertension Qualifiers: Hypertension type: essential hypertension Qualified Code(s): I10 - Essential (primary) hypertension
[2017-10-16] MEDS: Sod Chloride 0.9% Inj 1,000 ML IV.CONT SCH ×2 (11:28→15:48)
--- NOTE | 2017-10-16 15:43 | P.PNGS ---
<Tiana Curran - Last Filed: 10/16/17 15:41> Subjective Interval history: Resting in bed ; no complaints; asking how to use her remote control Physical Exam Vital signs: Vital Signs 10/15/17 16:00 10/15/17 17:00 10/15/17 20:00 Temperature 98.1 F 98.4 F Pulse Rate 114 H 127 H 120 H Respiratory Rate 20 18 Blood Pressure 150/92 H 153/87 H Pulse Oximetry 98 98 10/16/17 00:00 10/16/17 02:03 10/16/17 04:00 Temperature 98.2 F 98.5 F Pulse Rate 92 H 107 H 107 H Respiratory Rate 18 Blood Pressure 121/67 133/91 H Pulse Oximetry 96 94 L 10/16/17 08:00 10/16/17 12:00 Temperature 98 F 97.5 F L Pulse Rate 108 H 59 L Respiratory Rate 16 17 Blood Pressure 173/83 H 140/62 Pulse Oximetry 97 95 Intake & Output 10/15/17 10/16/17 10/16/17 18:59 06:59 18:59 Intake Total 900 / 900 200 / 200 Output Total 20 / 20 900 / 900 1200 / 1200 Balance 880 / 880 -700 / -700 -1200 / -1200 Weight 115.4 kg Intake: IV 100 / 100 200 / 200 Maxipime Inj 2,000 MG In NS Inj 100 / 100 200 / 200 100 ML @ 200 mls/hr IV.SIG Q8H [facility] Rx#:[id number] Anesthesia Amount 800 / 800 Intake (Blood Product) Amt 0 / 0 Rbc As-3 Leukoreduced Unit 0 / 0 [id number] Output: Urine 900 / 900 Estimated Blood Loss 20 / 20 Urine Amount (Catheter) 1200 / 1200 Indwelling Urethral Catheter 1200 / 1200 Other: Date of Last Bowel Movement 10/15/17 10/15/17 Narrative: Alert and awake Cardio: RRR Resp: CTAB Abd: large incision with nedra and sutures---Xeroform removed---area extremly moist---replaced with Maxorb dressing; 4x4 and tape; ZAMZAM with dark drainage Ext: edema - Urinary Catheter Management Indwelling Urethral Catheter Cath placed during this visit: yes, but has since been removed by the nurse Reason for continuing: Severe pressure ulcer/wound Insertion date: 09/27/17 Insertion time: 08:20 Removal date: 10/05/17 Removal time: 17:30 Assessment and Plan - Plan 51 year old female s/p I&D of abdominal/thigh wounds -Changed dressings to Maxorb due to moistness -Diet as tolerated - team following -Will likely need rehab placement <Saeed Hernandez - Last Filed: 10/16/17 19:39> Physical Exam Vital signs: Vital Signs 10/15/17 20:00 10/16/17 00:00 10/16/17 02:03 Temperature 98.4 F 98.2 F Pulse Rate 120 H 92 H 107 H Respiratory Rate 18 18 Blood Pressure 153/87 H 121/67 Pulse Oximetry 98 96 10/16/17 04:00 10/16/17 08:00 10/16/17 12:00 Temperature 98.5 F 98 F 97.5 F L Pulse Rate 107 H 108 H 59 L Respiratory Rate 16 17 Blood Pressure 133/91 H 173/83 H 140/62 Pulse Oximetry 94 L 97 95 10/16/17 16:00 10/16/17 16:33 Temperature 98.4 F Pulse Rate 107 H Respiratory Rate 17 17 Blood Pressure 133/62 Pulse Oximetry 95 Intake & Output 10/16/17 10/16/17 10/17/17 06:59 18:59 06:59 Intake Total 200 / 200 1200 / 1200 1400 / 1400 Output Total 900 / 900 2000 / 2000 930 / 930 Balance -700 / -700 -800 / -800 470 / 470 Weight 115.4 kg Intake: IV 200 / 200 1200 / 1200 NS Inj 1,000 ML @ 100 mls/hr IV 1000 / 1000 .CONT .Q10H [facility] Rx#:[id number] Maxipime Inj 2,000 MG In NS Inj 200 / 200 200 / 200 100 ML @ 200 mls/hr IV.SIG Q8H [facility] Rx#:[id number] Oral 600 / 600 Anesthesia Amount 800 / 800 Output: Urine 900 / 900 800 / 800 800 / 800 Stool 0 / 0 Urine/Stool Mix 50 / 50 Estimated Blood Loss 20 / 20 Urine Amount (Catheter) 1200 / 1200 Indwelling Urethral Catheter 1200 / 1200 Wound Drainage 60 / 60 ZAMZAM Drain 60 / 60 Other: Mode Setting Left Upper Groin Continuous Midline Groin Continuous Perineal Continuous Right Lower Groin Thigh Continuous # Voids 2 # Incontinent Voids 1 Date of Last Bowel Movement 10/15/17 10/15/17 10/15/17 # Bowel Movements 1 # Incontinent Bowel Movements 2 # Emeses 1 - Urinary Catheter Management Indwelling Urethral Catheter Cath placed during this visit: no Assessment and Plan - Plan POD #1 final wound closure; discussed with Dr. Schneider Keep drain in place; likely no further surgery Stable The exam, history, and the medical decision-making described in the above note were completed with the assistance of the mid-level provider. I reviewed and agree with the findings presented. I attest that I had a [id number] encounter with the patient on the same day, and personally performed and documented my assessment and findings in the medical record.
[2017-10-17] MEDS: Sod Chloride 0.9% Inj 1,000 ML IV.CONT SCH (06:33)
[2017-10-17 07:31] LABS: Baso # (Auto) 0.1 th/mm3 (0.0-0.2); Baso % (Auto) 0.3 % (0.0-2.0); Eos # (Auto) 0.1 th/mm3 (0.0-0.4); Eos % (Auto) 0.3 % (0.0-4.0); Hematocrit 25.4 % (35.0-46.0); Hemoglobin 8.4 gm/dL (11.6-15.3); Lymph # (Auto) 1.8 th/mm3 (1.0-4.8); Lymph % (Auto) 6.7 % (9.0-44.0); Mean Corpuscular HGB Conc 33.1 % (32.0-36.0); Mean Corpuscular Hemoglobin 27.2 pg (27.0-34.0); Mean Corpuscular Volume 82.3 fL (80.0-100.0); Mean Platelet Volume 7.2 fL (7.0-11.0); Mono # (Auto) 1.8 th/mm3 (0.0-0.9); Mono % (Auto) 6.7 % (0.0-8.0); Neut # (Auto) 22.5 th/mm3 (1.8-7.7); Platelet Count 336 th/mm3 (150-450); Red Blood Count 3.09 mil/mm3 (4.00-5.30); Red Cell Distribution Width 17.5 % (11.6-17.2); White Blood Count 26.2 th/mm3 (4.0-11.0)
[2017-10-17 08:02] LABS: Anion Gap 5 meq/L (5-15); Blood Urea Nitrogen 8 mg/dL (7-18); Calcium 7.4 mg/dL (8.5-10.1); Carbon Dioxide 24.6 meq/L (21.0-32.0); Chloride 111 meq/L (98-107); Glomerular Filtration Rate Greater Than 89 mL/min (>89); Glucose,Random 59 mg/dL (74-106); Potassium 4.4 meq/L (3.5-5.1); Sodium 141 meq/L (136-145)
[2017-10-17 08:21] LABS: Total Protein 4.6 g/dL (6.4-8.2)
--- NOTE | 2017-10-17 08:43 | P.PNFP ---
Subjective Interval history: Patient seen and examined this morning. No acute events overnight. Denies nausea, vomiting, fever, chills, abdominal pain, chest pain shortness breath, lightheadedness and dizziness. No new or acute pains. Denies any audio or visual hallucinations. No other complaints at this time. <Saeed Greene - 10/17/17 08:42> Results - Labs Result diagrams: 10/17/17 06:40 10/17/17 06:40 <John Joseph - 10/17/17 16:24> Abnormal lab results 10/17/17 10/17/17 Range/Units 06:40 06:40 WBC 26.2 H (4.0-11.0) th/mm3 RBC 3.09 L (4.00-5.30) mil/mm3 Hgb 8.4 L (11.6-15.3) gm/dL Hct 25.4 L (35.0-46.0) % RDW 17.5 H (11.6-17.2) % Neut % (Auto) 86.0 H (16.0-70.0) % Lymph % (Auto) 6.7 L (9.0-44.0) % Neut # (Auto) 22.5 H (1.8-7.7) th/mm3 [place] # (Auto) 1.8 H (0.0-0.9) th/mm3 Chloride 111 H (98-107) meq/L Creatinine 0.45 L (0.50-1.00) mg/dL Random Glucose 59 L (74-106) mg/dL Calcium 7.4 L* (8.5-10.1) mg/dL Total Protein 4.6 L (6.4-8.2) g/dL Short CBC 10/17/17 Range/Units 06:40 WBC 26.2 H (4.0-11.0) th/mm3 Hgb 8.4 L (11.6-15.3) gm/dL Hct 25.4 L (35.0-46.0) % Plt Count 336 (150-450) th/mm3 BMP 10/17/17 06:40 Sodium 141 Potassium 4.4 Chloride 111 H Carbon Dioxide 24.6 BUN 8 Creatinine 0.45 L Calcium 7.4 L* <John Joseph - 10/17/17 16:24> Abnormal lab results 10/16/17 10/16/17 10/17/17 Range/Units 07:15 07:15 06:40 WBC 26.2 H (4.0-11.0) th/mm3 RBC 3.09 L (4.00-5.30) mil/mm3 Hgb 8.4 L (11.6-15.3) gm/dL Hct 25.4 L (35.0-46.0) % RDW 17.5 H (11.6-17.2) % Neut % (Auto) 86.0 H (16.0-70.0) % Lymph % (Auto) 6.7 L (9.0-44.0) % Neut # (Auto) 22.5 H (1.8-7.7) th/mm3 [place] # (Auto) 1.8 H (0.0-0.9) th/mm3 Seg Neuts % (Manual) 90 H (16-70) % Lymphocytes % (Manual) 5 L (9-44) % Abs Neuts (Manual) 24.5 H (1.8-7.7) th/mm3 Nucleated RBCs/100 WBC 1 H (0-0) /100 WBC Keratocytes Occ H (None) Chloride 108 H (98-107) meq/L BUN 6 L (7-18) mg/dL Creatinine 0.46 L (0.50-1.00) mg/dL Random Glucose 73 L (74-106) mg/dL Calcium 7.6 L (8.5-10.1) mg/dL Total Protein (6.4-8.2) g/dL 10/17/17 Range/Units 06:40 WBC (4.0-11.0) th/mm3 RBC (4.00-5.30) mil/mm3 Hgb (11.6-15.3) gm/dL Hct (35.0-46.0) % RDW (11.6-17.2) % Neut % (Auto) (16.0-70.0) % Lymph % (Auto) (9.0-44.0) % Neut # (Auto) (1.8-7.7) th/mm3 [place] # (Auto) (0.0-0.9) th/mm3 Seg Neuts % (Manual) (16-70) % Lymphocytes % (Manual) (9-44) % Abs Neuts (Manual) (1.8-7.7) th/mm3 Nucleated RBCs/100 WBC (0-0) /100 WBC Keratocytes (None) Chloride 111 H (98-107) meq/L BUN (7-18) mg/dL Creatinine 0.45 L (0.50-1.00) mg/dL Random Glucose 59 L (74-106) mg/dL Calcium 7.4 L* (8.5-10.1) mg/dL Total Protein 4.6 L (6.4-8.2) g/dL Short CBC 10/17/17 Range/Units 06:40 WBC 26.2 H (4.0-11.0) th/mm3 Hgb 8.4 L (11.6-15.3) gm/dL Hct 25.4 L (35.0-46.0) % Plt Count 336 (150-450) th/mm3 BMP 10/16/17 10/17/17 07:15 06:40 Sodium 138 141 Potassium 4.4 4.4 Chloride 108 H 111 H Carbon Dioxide 23.2 24.6 BUN 6 L 8 Creatinine 0.46 L 0.45 L Calcium 7.6 L 7.4 L* <Saeed Greene A - 10/17/17 08:42> Physical Exam Vital signs: Vital Signs 10/16/17 16:33 10/16/17 20:00 10/17/17 00:00 Temperature 98.8 F 98.9 F Pulse Rate 110 H 100 H Respiratory Rate 17 18 18 Blood Pressure 120/69 98/53 L Pulse Oximetry 97 95 10/17/17 01:22 10/17/17 04:00 10/17/17 07:27 Temperature 98.5 F 97.9 F Pulse Rate 91 H 99 H 113 H Respiratory Rate 18 16 Blood Pressure 125/70 144/79 H Pulse Oximetry 96 96 10/17/17 08:00 10/17/17 12:00 10/17/17 13:00 Temperature 97.7 F Pulse Rate 101 H 101 H Respiratory Rate 16 18 Blood Pressure 121/65 Pulse Oximetry 95 Intake & Output 10/16/17 10/17/17 10/17/17 18:59 06:59 18:59 Intake Total 1200 / 1200 2900 / 2900 Output Total 2600 / 2600 2950 / 2950 Balance -1400 / -1400 -50 / -50 Weight 115.4 kg Intake: IV 1200 / 1200 1100 / 1100 NS Inj 1,000 ML @ 100 mls/hr IV 1000 / 1000 1000 / 1000 .CONT .Q10H [facility] Rx#:[id number] Maxipime Inj 2,000 MG In NS Inj 200 / 200 100 / 100 100 ML @ 200 mls/hr IV.SIG Q8H [facility] Rx#:[id number] Oral 1000 / 1000 Anesthesia Amount 800 / 800 Output: Urine 1400 / 1400 800 / 800 Stool 0 / 0 Urine/Stool Mix 50 / 50 Estimated Blood Loss 20 / 20 Urine Amount (Catheter) 1200 / 1200 1999 Indwelling Urethral Catheter 1200 / 1200 1999 Wound Drainage 80 / 80 ZAMZAM Drain 80 / 80 Other: Mode Setting Left Upper Groin Continuous Midline Groin Continuous Perineal Continuous Right Lower Groin Thigh Continuous # Voids 2 # Incontinent Voids 1 Date of Last Bowel Movement 10/15/17 10/16/17 # Bowel Movements 1 1 # Incontinent Bowel Movements 2 # Emeses 1 <John Joseph - 10/17/17 16:24> Vital Signs 10/16/17 12:00 10/16/17 16:00 10/16/17 16:33 Temperature 97.5 F L 98.4 F Pulse Rate 59 L 107 H Respiratory Rate 17 17 17 Blood Pressure 140/62 133/62 Pulse Oximetry 95 95 10/16/17 20:00 10/17/17 00:00 10/17/17 01:22 Temperature 98.8 F 98.9 F Pulse Rate 110 H 100 H 91 H Respiratory Rate 18 18 Blood Pressure 120/69 98/53 L Pulse Oximetry 97 95 10/17/17 04:00 10/17/17 07:27 Temperature 98.5 F 97.9 F Pulse Rate 99 H 113 H Respiratory Rate 18 16 Blood Pressure 125/70 144/79 H Pulse Oximetry 96 96 Intake & Output 10/16/17 10/17/17 10/17/17 18:59 06:59 18:59 Intake Total 1200 / 1200 2900 / 2900 Output Total 2600 / 2600 2950 / 2950 Balance -1400 / -1400 -50 / -50 Weight 115.4 kg Intake: IV 1200 / 1200 1100 / 1100 NS Inj 1,000 ML @ 100 mls/hr IV 1000 / 1000 1000 / 1000 .CONT .Q10H [facility] Rx#:[id number] Maxipime Inj 2,000 MG In NS Inj 200 / 200 100 / 100 100 ML @ 200 mls/hr IV.SIG Q8H [facility] Rx#:[id number] Oral 1000 / 1000 Anesthesia Amount 800 / 800 Output: Urine 1400 / 1400 800 / 800 Stool 0 / 0 Urine/Stool Mix 50 / 50 Estimated Blood Loss 20 / 20 Urine Amount (Catheter) 1200 / 1200 1999 Indwelling Urethral Catheter 1200 / 1200 1999 Wound Drainage 80 / 80 ZAMZAM Drain 80 / 80 Other: Mode Setting Left Upper Groin Continuous Midline Groin Continuous Perineal Continuous Right Lower Groin Thigh Continuous # Voids 2 # Incontinent Voids 1 Date of Last Bowel Movement 10/15/17 10/16/17 # Bowel Movements 1 1 # Incontinent Bowel Movements 2 # Emeses 1 <Saeed Greene - 10/17/17 08:42> Narrative: Narrative: Narrative: GENERAL: Obese female laying in bed, no acute distress SKIN: Warm and dry. Dressing in place on abdominal ulcer. Abdominal drainage tube in place with serosanguineous fluid. HEAD: Normocephalic. EYES: No scleral icterus. No injection or drainage. NECK: Supple, trachea midline. No JVD or lymphadenopathy. CARDIOVASCULAR: Regular rate and rhythm without murmurs, gallops, or rubs. RESPIRATORY: Decreased breath sounds in bases bilaterally, improved with increased patient effort. No accessory muscle use. GASTROINTESTINAL: Abdomen soft, non-tender, nondistended. EXTREMITIES: Skin of L lower leg peeling from knee to ankle, improved erythema. L pedal edema 1+. Trace R pedal edema. : Hopper catheter in place, light yellow fluid in bag. <Saeed Greene - 10/17/17 08:42> - Urinary Catheter Management Indwelling Urethral Catheter Cath placed during this visit: no <John Joseph - 10/17/17 16:24> yes, but has since been removed by the nurse <Saeed Greene - 10/17/17 08:42> Reason for continuing: Severe pressure ulcer/wound <Saeed Greene - 08:42> Insertion date: 09/27/17 <Saeed Greene - 10/17/17 08:42> Insertion time: 08:20 <Saeed Greene - 10/17/17 08:42> Removal date: 10/05/17 <Saeed Greene - 10/17/17 08:42> Removal time: 17:30 <Saeed Greeen - 10/17/17 08:42> Assessment and Plan - Assessment (1) Cellulitis of knee, left Code(s): L03.116 - Cellulitis of left lower limb Status: Acute (2) Fungal infection of skin of abdomen Code(s): B36.9 - Superficial mycosis, unspecified Status: Acute (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 - Infection and inflammatory reaction due to unspecified internal joint prosthesis, initial encounter Status: Suspected (4) Pneumonia Code(s): J18.9 - Pneumonia, unspecified organism Status: Resolved (5) Diarrhea Code(s): R19.7 - Diarrhea, unspecified Status: Resolved (6) Schizophrenia Code(s): F20.9 - Schizophrenia, unspecified Status: Chronic (7) Hypertension Code(s): I10 - Essential (primary) hypertension Status: Acute (8) Nutrition, metabolism, and development symptoms Code(s): R63.8 - Other symptoms and signs concerning food and fluid intake Status: Acute <John Joseph - 10/17/17 16:24> (1) Cellulitis of knee, left Code(s): L03.116 - Cellulitis of left lower limb Status: Acute Plan: -ID consulted- recommend Cefepime IV until 11/08, Levaquin po until 11/08 and diflucan po until 10/18 s/p 2 weeks of Keflex 500mg po. evaluated by ortho with no changes to management recommended. Knee looks improved from reported exam on admission. Minimal swelling. No erythema. Non tender to palpation. Patient has been OOB with assistance S/p PICC line placement. No signs of infection at PICC line (2) Fungal infection of skin of abdomen Code(s): B36.9 - Superficial mycosis, unspecified Status: Acute Plan: -Continue current course of antibiotics -Repeat CBC in a.m. Surgical procedure 10/09, wound VAC applied. VAC changed 10/12 removed 10/15. 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 She completed rehabilitation and was discharged home August 23. Patient was on approximately 2 weeks of po Keflex 500 mg. Per Ortho, examination of left knee shows no evidence of infection. (4) Pneumonia Code(s): J18.9 - Pneumonia, unspecified organism Status: Resolved Plan: -Patient currently on Levaquin. -Continue to monitor vital signs -Continue incentive spirometry Patient found to have left lower lobe consolidation on chest CTA. Lungs CTAB today. She remains afebrile, with O2 sat WNL on room air. (5) Diarrhea Code(s): R19.7 - Diarrhea, unspecified Status: Resolved Plan: -Patient has a rectal tube in place. Continue with probiotics. On admission patient presented with 3-day history of diarrhea in the setting of recent antibiotics. All bowel regimens held. Patient C. difficile negative. (6) Schizophrenia Code(s): F20.9 - Schizophrenia, unspecified Status: Chronic Plan: -Psych consulted- recommend Continue Abilify 30 mg for psychosis, okay to continue buspirone 30 mg, trazodone 100 mg and Cymbalta 60 mg -Hold anticholinergics per Psych Patient with chronic history of schizophrenia. On admission patient presented with active hallucinations of seeing someone out to get her. No hallucinations over night (7) Hypertension Code(s): I10 - Essential (primary) hypertension Status: Acute Plan: History of hypertension -continue to monitor (8) Nutrition, metabolism, and development symptoms Code(s): R63.8 - Other symptoms and signs concerning food and fluid intake Status: Acute Plan: Fluids: 100mls/hr Electrolytes: Replete as needed Nutrition: cardiac diet, continue to monitor po intake, supplement with ensure. Encouraged patient that she needed to increase p.o. intake in order to heal DVT prophylaxis: SCDs Continue to work with PT to get OOB <Saeed Greene - 10/17/17 08:34> - Assessment and Plan . <Saeed Greene - 10/17/17 08:42> - Attending Attestation Patient examined independently and case discussed with resident physicians I have read the above note and agree with the assessment/plan as discussed with me I was involved in all medical decision making for this patient John MD Jake <John Joseph - 10/17/17 16:24> <Saeed Greene - Last Filed: 10/17/17 08:34> (4) Pneumonia Qualifiers: Pneumonia type: due to unspecified organism Laterality: left Lung location: lower lobe of lung Qualified Code(s): J18.1 - Lobar pneumonia, unspecified organism (7) Hypertension Qualifiers: Hypertension type: essential hypertension Qualified Code(s): I10 - Essential (primary) hypertension <JakeJohn - Last Filed: 10/17/17 16:24> (4) Pneumonia Qualifiers: Pneumonia type: due to unspecified organism Laterality: left Lung location: lower lobe of lung Qualified Code(s): J18.1 - Lobar pneumonia, unspecified organism (7) Hypertension Qualifiers: Hypertension type: essential hypertension Qualified Code(s): I10 - Essential (primary) hypertension <Saeed Greene - Last Filed: 10/17/17 08:34> (4) Pneumonia Qualifiers: Pneumonia type: due to unspecified organism Laterality: left Lung location: lower lobe of lung Qualified Code(s): J18.1 - Lobar pneumonia, unspecified organism (7) Hypertension Qualifiers: Hypertension type: essential hypertension Qualified Code(s): I10 - Essential (primary) hypertension <John Joseph - Last Filed: 10/17/17 16:24> (4) Pneumonia Qualifiers: Pneumonia type: due to unspecified organism Laterality: left Lung location: lower lobe of lung Qualified Code(s): J18.1 - Lobar pneumonia, unspecified organism (7) Hypertension Qualifiers: Hypertension type: essential hypertension Qualified Code(s): I10 - Essential (primary) hypertension
[2017-10-17] MEDS: Duloxetine 60 MG DR Capsule PO SCH (08:54)
[2017-10-17] MEDS: Pantoprazole Sodium 20 MG DR Tablet PO SCH (08:54)
[2017-10-17] MEDS: Folic Acid 1 MG Tablet PO SCH (08:55)
[2017-10-17] MEDS: Metoprolol Tartrate 25 MG Tablet PO SCH ×2 (08:55→20:43)
[2017-10-17] MEDS: levoFLOXacin 750 MG Tablet PO SCH (08:55)
[2017-10-17] MEDS: traZODone 100 MG Tablet PO SCH (08:56)
[2017-10-17] MEDS: dilTIAZem 60 MG Tablet PO SCH ×3 (08:56→17:30)
[2017-10-17] MEDS: Heparin Central Flush 100 UNIT/ML 5 ML Vial IV.FLUSH SCH (08:57)
[2017-10-18 07:20] LABS: Baso # (Auto) 0.1 th/mm3 (0.0-0.2); Baso % (Auto) 0.2 % (0.0-2.0); Eos # (Auto) 0.1 th/mm3 (0.0-0.4); Eos % (Auto) 0.2 % (0.0-4.0); Hematocrit 26.2 % (35.0-46.0); Hemoglobin 8.6 gm/dL (11.6-15.3); Lymph # (Auto) 1.4 th/mm3 (1.0-4.8); Lymph % (Auto) 5.4 % (9.0-44.0); Mean Corpuscular Hemoglobin 27.9 pg (27.0-34.0); Mean Corpuscular Volume 84.6 fL (80.0-100.0); Mean Platelet Volume 7.4 fL (7.0-11.0); Mono # (Auto) 1.6 th/mm3 (0.0-0.9); Mono % (Auto) 6.1 % (0.0-8.0); Neut # (Auto) 23.5 th/mm3 (1.8-7.7); Neut % (Auto) 88.1 % (16.0-70.0); Platelet Count 334 th/mm3 (150-450); Red Cell Distribution Width 17.5 % (11.6-17.2); White Blood Count 26.7 th/mm3 (4.0-11.0)
[2017-10-18 08:12] LABS: Anion Gap 7 meq/L (5-15); Blood Urea Nitrogen 10 mg/dL (7-18); Calcium 8.1 mg/dL (8.5-10.1); Carbon Dioxide 24.7 meq/L (21.0-32.0); Chloride 107 meq/L (98-107); Glomerular Filtration Rate Greater Than 89 mL/min (>89); Glucose,Random 55 mg/dL (74-106); Potassium 4.3 meq/L (3.5-5.1); Sodium 139 meq/L (136-145)
[2017-10-18] MEDS: Duloxetine 60 MG DR Capsule PO SCH (11:06)
[2017-10-18] MEDS: levoFLOXacin 750 MG Tablet PO SCH (11:06)
[2017-10-18] MEDS: traZODone 100 MG Tablet PO SCH (11:07)
[2017-10-18] MEDS: Folic Acid 1 MG Tablet PO SCH (11:10)
[2017-10-18] MEDS: Pantoprazole Sodium 20 MG DR Tablet PO SCH (11:10)
[2017-10-18] MEDS: dilTIAZem 60 MG Tablet PO SCH ×3 (11:10→18:41)
[2017-10-18] MEDS: Metoprolol Tartrate 25 MG Tablet PO SCH ×2 (11:11→21:31)
[2017-10-18] MEDS: Heparin Central Flush 100 UNIT/ML 5 ML Vial IV.FLUSH SCH (11:12)
[2017-10-18] MEDS: Sod Chloride 0.9% Inj 1,000 ML IV.CONT SCH (11:24)
--- NOTE | 2017-10-18 11:49 | P.PNFP ---
Subjective Interval history: Patient seen and examined this morning. No acute events overnight. Denies nausea, vomiting, fever, chills, abdominal pain, chest pain shortness breath, lightheadedness and dizziness. No new or acute pains. Denies any audio or visual hallucinations. No other complaints at this time. <Saeed Greene - 10/18/17 11:49> Results - Labs Result diagrams: 10/18/17 05:43 10/18/17 05:43 <John Joseph - 10/18/17 20:57> Abnormal lab results 10/18/17 10/18/17 Range/Units 05:43 05:43 WBC 26.7 H (4.0-11.0) th/mm3 RBC 3.10 L (4.00-5.30) mil/mm3 Hgb 8.6 L (11.6-15.3) gm/dL Hct 26.2 L (35.0-46.0) % RDW 17.5 H (11.6-17.2) % Neut % (Auto) 88.1 H (16.0-70.0) % Lymph % (Auto) 5.4 L (9.0-44.0) % Neut # (Auto) 23.5 H (1.8-7.7) th/mm3 Titus # (Auto) 1.6 H (0.0-0.9) th/mm3 Random Glucose 55 L (74-106) mg/dL Calcium 8.1 L (8.5-10.1) mg/dL Short CBC 10/18/17 Range/Units 05:43 WBC 26.7 H (4.0-11.0) th/mm3 Hgb 8.6 L (11.6-15.3) gm/dL Hct 26.2 L (35.0-46.0) % Plt Count 334 (150-450) th/mm3 BMP 10/18/17 05:43 Sodium 139 Potassium 4.3 Chloride 107 Carbon Dioxide 24.7 BUN 10 Creatinine 0.54 Calcium 8.1 L <John Joseph - 10/18/17 20:57> Abnormal lab results 10/18/17 10/18/17 Range/Units 05:43 05:43 WBC 26.7 H (4.0-11.0) th/mm3 RBC 3.10 L (4.00-5.30) mil/mm3 Hgb 8.6 L (11.6-15.3) gm/dL Hct 26.2 L (35.0-46.0) % RDW 17.5 H (11.6-17.2) % Neut % (Auto) 88.1 H (16.0-70.0) % Lymph % (Auto) 5.4 L (9.0-44.0) % Neut # (Auto) 23.5 H (1.8-7.7) th/mm3 Titus # (Auto) 1.6 H (0.0-0.9) th/mm3 Random Glucose 55 L (74-106) mg/dL Calcium 8.1 L (8.5-10.1) mg/dL Short CBC 10/18/17 Range/Units 05:43 WBC 26.7 H (4.0-11.0) th/mm3 Hgb 8.6 L (11.6-15.3) gm/dL Hct 26.2 L (35.0-46.0) % Plt Count 334 (150-450) th/mm3 BMP 10/18/17 05:43 Sodium 139 Potassium 4.3 Chloride 107 Carbon Dioxide 24.7 BUN 10 Creatinine 0.54 Calcium 8.1 L <Saeed Greene - 10/18/17 11:49> - Imaging Impressions Knee CT 10/18/17 00:00 CONCLUSION: 1. Small joint effusion. 2. Nonspecific subcutaneous edema in the subcutaneous soft tissues above and below the knee. 3. No significant changes compared to the prior exam. <John Joseph - 10/18/17 20:57> Physical Exam Vital signs: Vital Signs 10/18/17 00:00 10/18/17 04:00 10/18/17 05:00 Temperature 98.0 F 98.5 F Pulse Rate 105 H 123 H 120 H Respiratory Rate 17 17 Blood Pressure 113/58 L 144/69 H Pulse Oximetry 96 96 10/18/17 08:00 10/18/17 11:36 10/18/17 11:59 Temperature 98.5 F 98.3 F Pulse Rate 137 H 141 H 143 H Respiratory Rate 17 20 Blood Pressure 139/68 112/98 H Pulse Oximetry 98 98 10/18/17 16:00 10/18/17 20:00 Temperature 98.1 F 97.8 F Pulse Rate 116 H 124 H Respiratory Rate 17 18 Blood Pressure 124/73 114/56 L Pulse Oximetry 98 99 Intake & Output 10/18/17 10/18/17 10/19/17 06:59 18:59 06:59 Intake Total 3000 / 3000 Output Total 4380 / 4380 Balance -1380 / -1380 Intake: IV 200 / 200 Maxipime Inj 2,000 MG In NS Inj 200 / 200 100 ML @ 200 mls/hr IV.SIG Q8H [facility] Rx#:[id number] Oral 1200 / 1200 Anesthesia Amount 1600 / 1600 Output: Urine 4150 / 4150 Stool 0 / 0 Urine/Stool Mix 100 / 100 Estimated Blood Loss 40 / 40 Wound Drainage 90 / 90 ZAMZAM Drain 90 / 90 Other: Mode Setting Left Upper Groin Continuous Midline Groin Continuous Perineal Continuous Right Lower Groin Thigh Continuous # Voids 2 # Incontinent Voids 1 Date of Last Bowel Movement 10/16/17 # Bowel Movements 1 # Incontinent Bowel Movements 2 # Emeses 1 <John Joseph - 10/18/17 20:57> Vital Signs 10/17/17 12:00 10/17/17 13:00 10/17/17 16:00 Temperature 97.7 F 97.9 F Pulse Rate 101 H 101 H 108 H Respiratory Rate 18 16 Blood Pressure 121/65 121/63 Pulse Oximetry 95 98 10/17/17 20:00 10/18/17 00:00 10/18/17 04:00 Temperature 98.3 F 98.0 F 98.5 F Pulse Rate 99 H 105 H 123 H Respiratory Rate 18 17 17 Blood Pressure 105/59 L 113/58 L 144/69 H Pulse Oximetry 96 96 96 10/18/17 05:00 10/18/17 08:00 10/18/17 11:36 Temperature 98.5 F Pulse Rate 120 H 137 H 141 H Respiratory Rate 17 Blood Pressure 139/68 Pulse Oximetry 98 Intake & Output 10/17/17 10/18/17 10/18/17 18:59 06:59 18:59 Intake Total 1200 / 1200 2900 / 2900 Output Total 1245 / 1245 4380 / 4380 Balance -45 / -45 -1480 / -1480 Intake: IV 1200 / 1200 100 / 100 NS Inj 1,000 ML @ 100 mls/hr IV 1000 / 1000 .CONT .Q10H [facility] Rx#:[id number] Maxipime Inj 2,000 MG In NS Inj 200 / 200 100 / 100 100 ML @ 200 mls/hr IV.SIG Q8H [facility] Rx#:[id number] Oral 1200 / 1200 Anesthesia Amount 1600 / 1600 Output: Urine 1200 / 1200 4150 / 4150 Stool 0 / 0 Urine/Stool Mix 100 / 100 Estimated Blood Loss 40 / 40 Wound Drainage 45 / 45 90 / 90 ZAMZAM Drain 45 / 90 / 90 Other: Mode Setting Left Upper Groin Continuous Midline Groin Continuous Perineal Continuous Right Lower Groin Thigh Continuous # Voids 2 # Incontinent Voids 1 Date of Last Bowel Movement 10/16/17 # Bowel Movements 1 # Incontinent Bowel Movements 2 # Emeses 1 <Saeed Greene - 10/18/17 11:49> Narrative: Narrative: Narrative: GENERAL: Obese female laying in bed, no acute distress SKIN: Warm and dry. Dressing in place on abdominal ulcer. Abdominal drainage tube in place with serosanguineous fluid. HEAD: Normocephalic. EYES: No scleral icterus. No injection or drainage. NECK: Supple, trachea midline. No JVD or lymphadenopathy. CARDIOVASCULAR: Regular rate and rhythm without murmurs, gallops, or rubs. RESPIRATORY: Decreased breath sounds in bases bilaterally, improved with increased patient effort. No accessory muscle use. GASTROINTESTINAL: Abdomen soft, non-tender, nondistended. EXTREMITIES: Skin of L lower leg peeling from knee to ankle, improved erythema. Right knee swelling. L pedal edema 1+. Trace R pedal edema. : Hopper catheter in place, light yellow fluid in bag. <Saeed Greene - 10/18/17 11:49> - Urinary Catheter Management Indwelling Urethral Catheter Cath placed during this visit: no <John Joseph - 10/18/17 20:57> yes, but has since been removed by the nurse <Saeed Greene 10/18/17 11:49> Reason for continuing: Severe pressure ulcer/wound <Saeed Greene 11:49> Insertion date: 09/27/17 <Saeed Greene 10/18/17 11:49> Insertion time: 08:20 <Saeed Greene 10/18/17 11:49> Removal date: 10/05/17 <Saeed Greene A - 10/18/17 11:49> Removal time: 17:30 <Saeed Greene A - 10/18/17 11:49> Assessment and Plan - Assessment (1) Cellulitis of knee, left Code(s): L03.116 - Cellulitis of left lower limb Status: Acute (2) Fungal infection of skin of abdomen Code(s): B36.9 - Superficial mycosis, unspecified Status: Acute (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 - Infection and inflammatory reaction due to unspecified internal joint prosthesis, initial encounter Status: Suspected (4) Pneumonia Code(s): J18.9 - Pneumonia, unspecified organism Status: Resolved (5) Diarrhea Code(s): R19.7 - Diarrhea, unspecified Status: Resolved (6) Schizophrenia Code(s): F20.9 - Schizophrenia, unspecified Status: Chronic (7) Hypertension Code(s): I10 - Essential (primary) hypertension Status: Acute (8) Nutrition, metabolism, and development symptoms Code(s): R63.8 - Other symptoms and signs concerning food and fluid intake Status: Acute <John Joseph - 10/18/17 20:57> (1) Cellulitis of knee, left Code(s): L03.116 - Cellulitis of left lower limb Status: Acute Plan: -ID consulted- recommend Cefepime IV until 11/08, Levaquin po until 11/08 and diflucan po until 10/18 -Will review case with ID s/p 2 weeks of Keflex 500mg po. evaluated by ortho with no changes to management recommended. Knee looks improved from reported exam on admission. Minimal swelling. No erythema. Non tender to palpation. Patient has been OOB with assistance S/p PICC line placement. No signs of infection at PICC line (2) Fungal infection of skin of abdomen Code(s): B36.9 - Superficial mycosis, unspecified Status: Acute Plan: -Continue current course of antibiotics -Repeat CBC in a.m. Surgical procedure 10/09, wound VAC applied. VAC changed 10/12 removed 10/15. 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 She completed rehabilitation and was discharged home August 23. Patient was on approximately 2 weeks of po Keflex 500 mg. Per Ortho, examination of left knee shows no evidence of infection. (4) Pneumonia Code(s): J18.9 - Pneumonia, unspecified organism Status: Resolved Plan: -Patient currently on Levaquin. -Continue to monitor vital signs -Continue incentive spirometry Patient found to have left lower lobe consolidation on chest CTA. Lungs CTAB today. She remains afebrile, with O2 sat WNL on room air. (5) Diarrhea Code(s): R19.7 - Diarrhea, unspecified Status: Resolved Plan: -Patient has a rectal tube in place. Continue with probiotics. On admission patient presented with 3-day history of diarrhea in the setting of recent antibiotics. All bowel regimens held. Patient C. difficile negative. (6) Schizophrenia Code(s): F20.9 - Schizophrenia, unspecified Status: Chronic Plan: -Psych consulted- recommend Continue Abilify 30 mg for psychosis, okay to continue buspirone 30 mg, trazodone 100 mg and Cymbalta 60 mg -Hold anticholinergics per Psych Patient with chronic history of schizophrenia. On admission patient presented with active hallucinations of seeing someone out to get her. No hallucinations over night (7) Hypertension Code(s): I10 - Essential (primary) hypertension Status: Acute Plan: History of hypertension -continue to monitor (8) Nutrition, metabolism, and development symptoms Code(s): R63.8 - Other symptoms and signs concerning food and fluid intake Status: Acute Plan: Fluids: 100mls/hr Electrolytes: Replete as needed Nutrition: cardiac diet, continue to monitor po intake, supplement with ensure. Encouraged patient that she needed to increase p.o. intake in order to heal DVT prophylaxis: SCDs Continue to work with PT to get OOB <Saeed Greene - 10/18/17 11:47> - Assessment and Plan . <Saeed Greene - 10/18/17 11:49> - Attending Attestation Pt. examined independently and case discussed with resident physicians. I have read the above note and agree with the assessment and plan as discussed with me. I was involved in all medical decision making for this patient. John Joseph MD <Hafsa Josephy - 10/18/17 20:57> <Saeed Greene - Last Filed: 10/18/17 11:47> (4) Pneumonia Qualifiers: Pneumonia type: due to unspecified organism Laterality: left Lung location: lower lobe of lung Qualified Code(s): J18.1 - Lobar pneumonia, unspecified organism (7) Hypertension Qualifiers: Hypertension type: essential hypertension Qualified Code(s): I10 - Essential (primary) hypertension <John Joseph - Last Filed: 10/18/17 20:57> (4) Pneumonia Qualifiers: Pneumonia type: due to unspecified organism Laterality: left Lung location: lower lobe of lung Qualified Code(s): J18.1 - Lobar pneumonia, unspecified organism (7) Hypertension Qualifiers: Hypertension type: essential hypertension Qualified Code(s): I10 - Essential (primary) hypertension <Saeed Greene - Last Filed: 10/18/17 11:47> (4) Pneumonia Qualifiers: Pneumonia type: due to unspecified organism Laterality: left Lung location: lower lobe of lung Qualified Code(s): J18.1 - Lobar pneumonia, unspecified organism (7) Hypertension Qualifiers: Hypertension type: essential hypertension Qualified Code(s): I10 - Essential (primary) hypertension <John Joseph - Last Filed: 10/18/17 20:57> (4) Pneumonia Qualifiers: Pneumonia type: due to unspecified organism Laterality: left Lung location: lower lobe of lung Qualified Code(s): J18.1 - Lobar pneumonia, unspecified organism (7) Hypertension Qualifiers: Hypertension type: essential hypertension Qualified Code(s): I10 - Essential (primary) hypertension
--- NOTE | 2017-10-18 15:37 | P.PNGS ---
<Tiana Curran - Last Filed: 10/18/17 15:35> Subjective Interval history: Doing well; asking questions that don't make much sense Physical Exam Vital signs: Vital Signs 10/17/17 16:00 10/17/17 20:00 10/18/17 00:00 Temperature 97.9 F 98.3 F 98.0 F Pulse Rate 108 H 99 H 105 H Respiratory Rate 16 18 17 Blood Pressure 121/63 105/59 L 113/58 L Pulse Oximetry 98 96 96 10/18/17 04:00 10/18/17 05:00 10/18/17 08:00 Temperature 98.5 F 98.5 F Pulse Rate 123 H 120 H 137 H Respiratory Rate 17 17 Blood Pressure 144/69 H 139/68 Pulse Oximetry 96 98 10/18/17 11:36 10/18/17 11:59 Temperature 98.3 F Pulse Rate 141 H 143 H Respiratory Rate 20 Blood Pressure 112/98 H Pulse Oximetry 98 Intake & Output 10/17/17 10/18/17 10/18/17 18:59 06:59 18:59 Intake Total 1200 / 1200 2900 / 2900 Output Total 1245 / 1245 4380 / 4380 Balance -45 / -45 -1480 / -1480 Intake: IV 1200 / 1200 100 / 100 NS Inj 1,000 ML @ 100 mls/hr IV 1000 / 1000 .CONT .Q10H [facility] Rx#:[id number] Maxipime Inj 2,000 MG In NS Inj 200 / 200 100 / 100 100 ML @ 200 mls/hr IV.SIG Q8H [facility] Rx#:[id number] Oral 1200 / 1200 Anesthesia Amount 1600 / 1600 Output: Urine 1200 / 1200 4150 / 4150 Stool 0 / 0 Urine/Stool Mix 100 / 100 Estimated Blood Loss 40 / 40 Wound Drainage 45 / 45 90 / 90 ZAMZAM Drain 45 / 45 90 / 90 Other: Mode Setting Left Upper Groin Continuous Midline Groin Continuous Perineal Continuous Right Lower Groin Thigh Continuous # Voids 2 # Incontinent Voids 1 Date of Last Bowel Movement 10/16/17 # Bowel Movements 1 # Incontinent Bowel Movements 2 # Emeses 1 Narrative: Alert but not orientated Cardio: RRR Resp: CTAB Abd: large wound now closed---- Maxorb dressing in place; changed dressing around ZAMZAM site Swollen LEFT knee - Urinary Catheter Management Indwelling Urethral Catheter Cath placed during this visit: yes, but has since been removed by the nurse Reason for continuing: Severe pressure ulcer/wound Insertion date: 09/27/17 Insertion time: 08:20 Removal date: 10/05/17 Removal time: 17:30 Assessment and Plan - Plan 51 year old female s/p I&D of abdominal/thigh wounds -Continue Maxorb due to moistness -Diet as tolerated -FM team following -Will likely need rehab placement -GS will continue to follow peripherally <Saeed Hernandez - Last Filed: 10/19/17 07:41> Physical Exam Vital signs: Vital Signs 10/18/17 08:00 10/18/17 11:36 10/18/17 11:59 Temperature 98.5 F 98.3 F Pulse Rate 137 H 141 H 143 H Respiratory Rate 17 20 Blood Pressure 139/68 112/98 H Pulse Oximetry 98 98 10/18/17 16:00 10/18/17 20:00 10/18/17 23:48 Temperature 98.1 F 97.8 F 98 F Pulse Rate 116 H 124 H 102 H Respiratory Rate 17 18 18 Blood Pressure 124/73 114/56 L 116/58 L Pulse Oximetry 98 99 94 L 10/19/17 01:07 10/19/17 04:36 10/19/17 05:36 Temperature 98.3 F 98.0 F Pulse Rate 121 H 118 H Respiratory Rate 16 16 16 Blood Pressure 117/63 131/71 Pulse Oximetry Intake & Output 10/18/17 10/19/17 10/19/17 18:59 06:59 18:59 Intake Total 100 / 100 Output Total 1800 / 1800 Balance 100 / 100 -1800 / -1800 Intake: IV 100 / 100 Maxipime Inj 2,000 MG In NS Inj 100 / 100 100 ML @ 200 mls/hr IV.SIG Q8H [facility] Rx#:[id number] Output: Urine 1800 / 1800 Other: Date of Last Bowel Movement 10/19/17 # Incontinent Bowel Movements 1 - Urinary Catheter Management Indwelling Urethral Catheter Cath placed during this visit: no Assessment and Plan - Plan As above; no further surgery at this time; Will see every few days The exam, history, and the medical decision-making described in the above note were completed with the assistance of the mid-level provider. I reviewed and agree with the findings presented. I attest that I had a [id number] encounter with the patient on the same day, and personally performed and documented my assessment and findings in the medical record.
--- NOTE | 2017-10-18 17:43 | CT ---
EXAM DATE: 10/18/2017 5:37 PM EDT AGE/SEX: 51 years / Female INDICATIONS: Infection CLINICAL DATA: This is the patient's initial encounter. Patient reports that signs and symptoms have been present for 1 day and indicates a pain score of 4/10. MEDICAL/SURGICAL HISTORY: Hypertension. Hysterectomy. RADIATION DOSE: 13.94 CTDI (mGy) COMPARISON: [facility] [place], CT KNEE LEFT W/O CONTRAST, 09/27/2017. . TECHNIQUE: Multiple contiguous axial images were acquired using a multirow detector CT scanner after the intravenous administration of 68 ml Omnipaque 350 (iohexol) nonionic water-soluble contrast as a single exam dose. Multiplanar reconstruction was performed in the sagittal and coronal planes. Usi ng automated exposure control and adjustment of the mA and/or kV according to patient size, radiation dose was kept as low as reasonably achievable to obtain optimal diagnostic quality images. DICOM fo rmat image data is available electronically for review and comparison. FINDINGS: Today's exam is compared to the prior study. There continues to be a left knee arthroplasty in place. This creates streak artifact on multiple images. However, there appears to be good alignment of the bony structures and knee prosthesis. The bony structures appear to be grossly intact. There is nonspe cific edema in the subcutaneous soft tissues above and below the knee. There appears to be a small am ount of fluid in the suprapatellar bursa consistent with a small joint effusion.. Otherwise, these fi ndings are not significant change compared to the prior study. CONCLUSION: 1. Small joint effusion. 2. Nonspecific subcutaneous edema in the subcutaneous soft tissues above and below the knee. 3. No significant changes compared to the prior exam. Electronically signed by: John Beatty MD 10/18/2017 5:42 PM EDT
[2017-10-19 06:02] LABS: Baso # (Auto) 0.1 th/mm3 (0.0-0.2); Baso % (Auto) 0.2 % (0.0-2.0); Hematocrit 26.3 % (35.0-46.0); Hemoglobin 8.7 gm/dL (11.6-15.3); Lymph % (Auto) 3.2 % (9.0-44.0); Mean Corpuscular HGB Conc 33.2 % (32.0-36.0); Mean Corpuscular Hemoglobin 27.2 pg (27.0-34.0); Mean Corpuscular Volume 81.9 fL (80.0-100.0); Mean Platelet Volume 7.2 fL (7.0-11.0); Mono # (Auto) 1.7 th/mm3 (0.0-0.9); Mono % (Auto) 5.5 % (0.0-8.0); Neut # (Auto) 28.7 th/mm3 (1.8-7.7); Neut % (Auto) 91.1 % (16.0-70.0); Platelet Count 382 th/mm3 (150-450); Red Blood Count 3.21 mil/mm3 (4.00-5.30); Red Cell Distribution Width 17.4 % (11.6-17.2); White Blood Count 31.6 th/mm3 (4.0-11.0)
[2017-10-19 06:26] LABS: Anion Gap 7 meq/L (5-15); Blood Urea Nitrogen 7 mg/dL (7-18); Calcium 7.9 mg/dL (8.5-10.1); Carbon Dioxide 24.9 meq/L (21.0-32.0); Chloride 105 meq/L (98-107); Glomerular Filtration Rate Greater Than 89 mL/min (>89); Glucose,Random 90 mg/dL (74-106); Potassium 4.2 meq/L (3.5-5.1); Sodium 137 meq/L (136-145)
[2017-10-19 07:08] LABS: Hypersegmented Neutrophils 1+; Lymphocytes 4 % (9-44); Monocytes 2 % (0-8); Platelet Estimate Normal (Normal); Platelet Morphology Normal (Normal)
[2017-10-19 07:09] LABS: Target Cells 1+
[2017-10-19] MEDS: Duloxetine 60 MG DR Capsule PO SCH (08:44)
[2017-10-19] MEDS: Metoprolol Tartrate 25 MG Tablet PO SCH ×2 (08:44→22:31)
--- NOTE | 2017-10-19 08:47 | P.PNFP ---
Addendum entered and electronically signed by Patsy Baxter MD, R1 10/19/17 14 :31: Patsy Baxter- Spoke with PA for Dr. Frausto. At this time they do not want any aspiration of the knee effusion due to risk of introducing infection. Recommend ice for the knee and to follow up on outpatient basis if the knee continues to be painful. From Ortho standpoint she is cleared for discharge Original Note: Subjective Interval history: Called by nursing staff this morning to report the patient fallen last night. Stated that she fell around 4 AM. They report that she did not hit her head, was down for approximately 3-5 minutes, was found on her left side. Unwitnessed fall. Spoke with patient. She reports that she got up to walk towards the bathroom, fell, hit her left side. Denies hitting her head. Reports pain in her left knee and ankle. Denies any change in gait or function. No upper extremity denies nausea, vomiting, fever, chills abdominal pain, chest pain, shortness of breath, lightheadedness, dizziness. No other complaint today. <Saeed Greene - 10/19/17 11:03> Results - Labs Result diagrams: 10/19/17 05:50 10/19/17 05:50 <John Joseph - 10/19/17 15:57> Abnormal lab results 10/19/17 10/19/17 10/19/17 Range/Units 05:50 05:50 05:50 WBC 31.6 H (4.0-11.0) th/mm3 RBC 3.21 L (4.00-5.30) mil/mm3 Hgb 8.7 L (11.6-15.3) gm/dL Hct 26.3 L (35.0-46.0) % RDW 17.4 H (11.6-17.2) % Neut % (Auto) 91.1 H (16.0-70.0) % Lymph % (Auto) 3.2 L (9.0-44.0) % Neut # (Auto) 28.7 H (1.8-7.7) th/mm3 Rabun # (Auto) 1.7 H (0.0-0.9) th/mm3 Seg Neuts % (Manual) 93 H (16-70) % Lymphocytes % (Manual) 4 L (9-44) % Abs Neuts (Manual) 29.7 H (1.8-7.7) th/mm3 Hypersegmented Neuts 1+ H (None) Target Cells 1+ H (None) ESR 69 H (0-30) mm/hr Calcium 7.9 L (8.5-10.1) mg/dL C-Reactive Protein 18.00 H (0.00-0.30) mg/dL Short CBC 10/19/17 Range/Units 05:50 WBC 31.6 H (4.0-11.0) th/mm3 Hgb 8.7 L (11.6-15.3) gm/dL Hct 26.3 L (35.0-46.0) % Plt Count 382 (150-450) th/mm3 [facility] 10/19/17 05:50 Sodium 137 Potassium 4.2 Chloride 105 Carbon Dioxide 24.9 BUN 7 Creatinine 0.58 Calcium 7.9 L <John Joseph - 10/19/17 15:57> Abnormal lab results 10/19/17 10/19/17 10/19/17 Range/Units 05:50 05:50 05:50 WBC 31.6 H (4.0-11.0) th/mm3 RBC 3.21 L (4.00-5.30) mil/mm3 Hgb 8.7 L (11.6-15.3) gm/dL Hct 26.3 L (35.0-46.0) % RDW 17.4 H (11.6-17.2) % Neut % (Auto) 91.1 H (16.0-70.0) % Lymph % (Auto) 3.2 L (9.0-44.0) % Neut # (Auto) 28.7 H (1.8-7.7) th/mm3 Rabun # (Auto) 1.7 H (0.0-0.9) th/mm3 Seg Neuts % (Manual) 93 H (16-70) % Lymphocytes % (Manual) 4 L (9-44) % Abs Neuts (Manual) 29.7 H (1.8-7.7) th/mm3 Hypersegmented Neuts 1+ H (None) Target Cells 1+ H (None) ESR 69 H (0-30) mm/hr Calcium 7.9 L (8.5-10.1) mg/dL C-Reactive Protein 18.00 H (0.00-0.30) mg/dL Short CBC 10/19/17 Range/Units 05:50 WBC 31.6 H (4.0-11.0) th/mm3 Hgb 8.7 L (11.6-15.3) gm/dL Hct 26.3 L (35.0-46.0) % Plt Count 382 (150-450) th/mm3 BMP 10/19/17 05:50 Sodium 137 Potassium 4.2 Chloride 105 Carbon Dioxide 24.9 BUN 7 Creatinine 0.58 Calcium 7.9 L <Saeed Greene - 10/19/17 08:47> - Imaging Impressions Knee CT 10/18/17 00:00 CONCLUSION: 1. Small joint effusion. 2. Nonspecific subcutaneous edema in the subcutaneous soft tissues above and below the knee. 3. No significant changes compared to the prior exam. Ankle X-Ray 10/19/17 00:00 CONCLUSION: 1. No acute fracture or dislocation. Knee X-Ray 10/19/17 00:00 CONCLUSION: 1. Total knee prosthesis in place. 2. Moderate-sized knee joint effusion. <John Joseph - 10/19/17 15:57> Impressions Knee CT 10/18/17 00:00 CONCLUSION: 1. Small joint effusion. 2. Nonspecific subcutaneous edema in the subcutaneous soft tissues above and below the knee. 3. No significant changes compared to the prior exam. <Saeed Greene - 10/19/17 08:47> Physical Exam Vital signs: Vital Signs 10/18/17 16:00 10/18/17 20:00 10/18/17 23:48 Temperature 98.1 F 97.8 F 98 F Pulse Rate 116 H 124 H 102 H Respiratory Rate 17 18 18 Blood Pressure 124/73 114/56 L 116/58 L Pulse Oximetry 98 99 94 L 10/19/17 01:07 10/19/17 04:36 10/19/17 05:36 Temperature 98.3 F 98.0 F Pulse Rate 121 H 118 H Respiratory Rate 16 16 16 Blood Pressure 117/63 131/71 Pulse Oximetry 10/19/17 08:56 10/19/17 09:02 10/19/17 13:17 Temperature 98.4 F 98 F Pulse Rate 123 H 120 H 104 H Respiratory Rate 16 18 Blood Pressure 133/78 127/66 Pulse Oximetry 97 99 10/19/17 14:38 Temperature Pulse Rate 110 H Respiratory Rate Blood Pressure Pulse Oximetry Intake & Output 10/18/17 10/19/17 10/19/17 18:59 06:59 18:59 Intake Total 100 / 100 100 / 100 Output Total 1800 / 1800 1050 / 1050 Balance 100 / 100 -1700 / -1700 -1050 / -1050 Intake: IV 100 / 100 100 / 100 Maxipime Inj 2,000 MG In NS Inj 100 / 100 100 / 100 100 ML @ 200 mls/hr IV.SIG Q8H [facility] Rx#:[id number] Output: Urine 1800 / 1800 Urine Amount (Catheter) 1000 / 1000 Indwelling Urethral Catheter 1000 / 1000 Wound Drainage 50 / 50 ZAMZAM Drain 50 / 50 Other: Date of Last Bowel Movement 10/19/17 # Incontinent Bowel Movements 1 <John Joseph - 10/19/17 15:57> Vital Signs 10/18/17 11:36 10/18/17 11:59 10/18/17 16:00 Temperature 98.3 F 98.1 F Pulse Rate 141 H 143 H 116 H Respiratory Rate 20 17 Blood Pressure 112/98 H 124/73 Pulse Oximetry 98 98 10/18/17 20:00 10/18/17 23:48 10/19/17 01:07 Temperature 97.8 F 98 F Pulse Rate 124 H 102 H Respiratory Rate 18 18 16 Blood Pressure 114/56 L 116/58 L Pulse Oximetry 99 94 L 10/19/17 04:36 10/19/17 05:36 Temperature 98.3 F 98.0 F Pulse Rate 121 H 118 H Respiratory Rate 16 16 Blood Pressure 117/63 131/71 Pulse Oximetry Intake & Output 10/18/17 10/19/17 10/19/17 18:59 06:59 18:59 Intake Total 100 / 100 Output Total 1800 / 1800 Balance 100 / 100 -1800 / -1800 Intake: IV 100 / 100 Maxipime Inj 2,000 MG In NS Inj 100 / 100 100 ML @ 200 mls/hr IV.SIG Q8H [facility] Rx#:[id number] Output: Urine 1800 / 1800 Other: Date of Last Bowel Movement 10/19/17 # Incontinent Bowel Movements 1 <FailleSaeed - 10/19/17 08:47> Narrative: GENERAL: Obese female laying in bed, no acute distress SKIN: Warm and dry. Abdominal drainage tube in place with serosanguineous fluid. Sutures appear intact. Skin opening in left knee inferior to the patella. HEAD: Normocephalic. EYES: No scleral icterus. No injection or drainage. NECK: Supple, trachea midline. No JVD or lymphadenopathy. CARDIOVASCULAR: Regular rate and rhythm without murmurs, gallops, or rubs. RESPIRATORY: Decreased breath sounds in bases bilaterally, improved with increased patient effort. No accessory muscle use. GASTROINTESTINAL: Abdomen soft, non-tender, nondistended. EXTREMITIES: Skin of L lower leg peeling from knee to ankle, improved erythema. Right knee swelling. L pedal edema 1+. Trace R pedal edema. Mild tenderness to left knee. No tenderness to left malleoli. Mild tenderness left navicular. Normal passive range of motion. Poorly able to bend both knees, unchanged from before. : Hopper catheter in place, light yellow fluid in bag. <Saeed Greene 10/19/17 11:03> - Urinary Catheter Management Indwelling Urethral Catheter Cath placed during this visit: no <John Joseph - 10/19/17 15:57> yes, but has since been removed by the nurse <Saeed Greene - 10/19/17 11:03> Reason for continuing: Other continuation reason <Saeed Greene 10/19/17 08:47> Insertion date: 09/27/17 <Saeed Greene 10/19/17 08:47> Insertion time: 08:20 <Saeed Greene 10/19/17 08:47> Removal date: 10/05/17 <Saeed Greene 10/19/17 08:47> Removal time: 17:30 <Saeed Greene 10/19/17 08:47> Assessment and Plan - Assessment (1) Cellulitis of knee, left Code(s): L03.116 - Cellulitis of left lower limb Status: Acute (2) Fall Code(s): W19.XXXA - Unspecified fall, initial encounter Status: Acute (3) Fungal infection of skin of abdomen Code(s): B36.9 - Superficial mycosis, unspecified Status: Acute (4) Prosthetic joint infection Code(s): T84.50XA - Infection and inflammatory reaction due to unspecified internal joint prosthesis, initial encounter Status: Suspected (5) Pneumonia Code(s): J18.9 - Pneumonia, unspecified organism Status: Resolved (6) Diarrhea Code(s): R19.7 - Diarrhea, unspecified Status: Resolved (7) Schizophrenia Code(s): F20.9 - Schizophrenia, unspecified Status: Chronic (8) Hypertension Code(s): I10 - Essential (primary) hypertension Status: Acute (9) Nutrition, metabolism, and development symptoms Code(s): R63.8 - Other symptoms and signs concerning food and fluid intake Status: Acute <John Joseph - 10/19/17 15:57> (1) Cellulitis of knee, left Code(s): L03.116 - Cellulitis of left lower limb Status: Acute Plan: -ID consulted- recommend Cefepime IV until 11/08, Levaquin po until 11/08 -CT knee report unchanged, small effusion -ID to see patient today Diflucan course completed 10/18 s/p 2 weeks of Keflex 500mg po. evaluated by ortho with no changes to management recommended. Knee looks improved from reported exam on admission. Minimal swelling. No erythema. Non tender to palpation. Patient has been OOB with assistance S/p PICC line placement. No signs of infection at PICC line (2) Fall Code(s): W19.XXXA - Unspecified fall, initial encounter Status: Acute Plan: Fell 10/19/17. No loss of consciousness, no head injury, left knee and ankle pain. -Follow-up knee x-ray -Follow-up ankle x-ray (3) Fungal infection of skin of abdomen Code(s): B36.9 - Superficial mycosis, unspecified Status: Acute Plan: -Continue current course of antibiotics -Repeat CBC in a.m. Surgical procedure 10/09, wound VAC applied. VAC changed 10/12 removed 10/15. (4) Prosthetic joint infection Code(s): T84.50XA - Infection and inflammatory reaction due to unspecified internal joint prosthesis, initial encounter Status: Suspected Plan: - See plan above for left leg cellulitis Patient with history of total left knee replacement in July 26, 2017. She completed rehabilitation and was discharged home August 23. Patient was on approximately 2 weeks of po Keflex 500 mg. Per Ortho, examination of left knee shows no evidence of infection. (5) Pneumonia Code(s): J18.9 - Pneumonia, unspecified organism Status: Resolved Plan: -Patient currently on Levaquin. -Continue to monitor vital signs -Continue incentive spirometry Patient found to have left lower lobe consolidation on chest CTA. Lungs CTAB today. She remains afebrile, with O2 sat WNL on room air. (6) Diarrhea Code(s): R19.7 - Diarrhea, unspecified Status: Resolved Plan: -Patient has a rectal tube in place. Continue with probiotics. On admission patient presented with 3-day history of diarrhea in the setting of recent antibiotics. All bowel regimens held. Patient C. difficile negative. (7) Schizophrenia Code(s): F20.9 - Schizophrenia, unspecified Status: Chronic Plan: -Psych consulted- recommend Continue Abilify 30 mg for psychosis, okay to continue buspirone 30 mg, trazodone 100 mg and Cymbalta 60 mg -Hold anticholinergics per Psych Patient with chronic history of schizophrenia. On admission patient presented with active hallucinations of seeing someone out to get her. No hallucinations over night (8) Hypertension Code(s): I10 - Essential (primary) hypertension Status: Acute Plan: History of hypertension -continue to monitor (9) Nutrition, metabolism, and development symptoms Code(s): R63.8 - Other symptoms and signs concerning food and fluid intake Status: Acute Plan: Fluids: 100mls/hr Electrolytes: Replete as needed Nutrition: cardiac diet, continue to monitor po intake, supplement with ensure. Encouraged patient that she needed to increase p.o. intake in order to heal DVT prophylaxis: SCDs Continue to work with PT to get OOB <Saeed Greene - 10/19/17 10:42> - Assessment and Plan . <Saeed Greene - 10/19/17 08:47> - Attending Attestation Patient examined and case discussed with resident physicians I have read the above note and agree with the assessment/plan as discussed with me I was involved with all medical decision making for this patient John Joseph MD <John Joseph - 10/19/17 15:57> <Saeed Greene - Last Filed: 10/19/17 10:42> (5) Pneumonia Qualifiers: Pneumonia type: due to unspecified organism Laterality: left Lung location: lower lobe of lung Qualified Code(s): J18.1 - Lobar pneumonia, unspecified organism (8) Hypertension Qualifiers: Hypertension type: essential hypertension Qualified Code(s): I10 - Essential (primary) hypertension <JakeJohn sims - Last Filed: 10/19/17 15:57> (5) Pneumonia Qualifiers: Pneumonia type: due to unspecified organism Laterality: left Lung location: lower lobe of lung Qualified Code(s): J18.1 - Lobar pneumonia, unspecified organism (8) Hypertension Qualifiers: Hypertension type: essential hypertension Qualified Code(s): I10 - Essential (primary) hypertension <Saeed Greene - Last Filed: 10/19/17 10:42> (5) Pneumonia Qualifiers: Pneumonia type: due to unspecified organism Laterality: left Lung location: lower lobe of lung Qualified Code(s): J18.1 - Lobar pneumonia, unspecified organism (8) Hypertension Qualifiers: Hypertension type: essential hypertension Qualified Code(s): I10 - Essential (primary) hypertension <Jake,John - Last Filed: 10/19/17 15:57> (5) Pneumonia Qualifiers: Pneumonia type: due to unspecified organism Laterality: left Lung location: lower lobe of lung Qualified Code(s): J18.1 - Lobar pneumonia, unspecified organism (8) Hypertension Qualifiers: Hypertension type: essential hypertension Qualified Code(s): I10 - Essential (primary) hypertension
[2017-10-19] MEDS: dilTIAZem 60 MG Tablet PO SCH ×3 (08:49→18:16)
[2017-10-19] MEDS: levoFLOXacin 750 MG Tablet PO SCH (08:49)
[2017-10-19] MEDS: traZODone 100 MG Tablet PO SCH (08:50)
[2017-10-19] MEDS: Folic Acid 1 MG Tablet PO SCH (08:50)
[2017-10-19] MEDS: Pantoprazole Sodium 20 MG DR Tablet PO SCH (08:51)
[2017-10-19] MEDS: Heparin Central Flush 100 UNIT/ML 5 ML Vial IV.FLUSH SCH (08:52)
--- NOTE | 2017-10-19 10:27 | XR ---
EXAM DATE: 10/19/2017 10:13 AM EDT AGE/SEX: 51 years / Female INDICATIONS: Pain and swelling left ankle CLINICAL DATA: This is the patient's subsequent encounter. Patient reports that signs and symptoms h ave been present for 1 month and indicates a pain score of 10/10. MEDICAL/SURGICAL HISTORY: Renal disease. Hypertension. Hysterectomy. left knee replaced COMPARISON: [facility], TIBIA FIBULA LEFT 2V, 09/27/2017. . FINDINGS: Bony structures are intact and in normal alignment. Joints are intact without dislocation or signifi cant arthropathy. Osseous density is normal. Mild soft tissue swelling about the ankle. Calcaneal sp urring. No radiopaque foreign bodies seen. CONCLUSION: 1. No acute fracture or dislocation. Electronically signed by: Khari May MD 10/19/2017 10:25 AM EDT
--- NOTE | 2017-10-19 10:32 | XR ---
EXAM DATE: 10/19/2017 10:20 AM EDT AGE/SEX: 51 years / Female INDICATIONS: Pain and swelling left knee CLINICAL DATA: This is the patient's initial encounter. Patient reports that signs and symptoms have been present for 1 month and indicates a pain score of 10/10. MEDICAL/SURGICAL HISTORY: Renal disease. Hypertension. Hysterectomy. left knee replaced COMPARISON: [facility] [place], KNEE LIMITED LEFT 2V, 09/27/2017. . FINDINGS: 4 views of the left knee. Total knee prosthesis is in place. Bone alignment within normal limits. No evidence of fracture. No abnormal lucency at the bone prosthesis interfaces. Moderate-sized knee join t effusion. CONCLUSION: 1. Total knee prosthesis in place. 2. Moderate-sized knee joint effusion. Electronically signed by: Ephraim Grant MD 10/19/2017 10:30 AM EDT
--- NOTE | 2017-10-19 14:17 | P.PNID ---
Subjective Remarks: ID coverage. Follow up. 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 Post op it appears she was discharged to a rehab. She was discharged from the rehab to home with her on August 23. Patient reports she lives at home with her who is on disability. Unsure of nature of disability at this time and his ability to take care of her. She was reportedly able to ambulate on her own initially followed by weakness and need for walker and then to a point where she did not want to get out of bed. It has been reported to others that she had some discharge at the left surgical site area and ortho surgeon prescribed oral keflex which reportedly lead to some improvement. She reportedly completed a week of antibiotic treatment with last day scheduled for today with some improvement in her knee pain. However her stated that she was starting to have more drainage from her knee just over the past day or so. He had pointed to several areas that had been draining pus from just above and just below the knee. He stated that a cup full of pus would drain at a time. Additionally the abdominal fold wounds appear to have been present for atleast 3 weeks now. Additionally patient has a psychiatric history and is on medications such as Cymbalta and Abilify. She actively hallucinates per dw resident team and psych would like to resume her meds that are on hold due to severe neutropenia. With this background patient presents to the ED with complaints of worsening shortness of breath and mental status accompanied with symptoms of diarrhea (3 days, non-bloody) and decreased p.o. intake (5 days). She was also brought into the hospital due to infection of her knee that improved with Keflex p.o but now has returned with new additional drainage over the past few days. ID consulted for evaluation and Mment of Left knee prosthetic joint infection and neutropenia. Called to see patient for additional recommendations. Patient underwent incision and debridement of the inferior abdominal wall and proximal inner thighs on 10/12/2017. Receiving IV antibiotics for left knee infection. A CT scan was obtained yesterday evening and it showed small joint effusion and subcutaneous edema of the fat at the left knee. Patient reports that she had pain 10/10 scale in the left knee. She fell on the way to the bathroom this morning. She now has an opening at the incision of the left knee which started draining purulent material. She has loose stools. This is coming out around the rectal tubing. Denies chills. Denies nausea vomiting. The white blood cell count remain elevated. Recieved neupogen. No fever. Allergies/Adverse Reactions: Allergies amoxicillin Allergy (Verified 09/27/17 17:54) Swelling Objective Vital Signs 10/18/17 16:00 10/18/17 20:00 10/18/17 23:48 Temperature 98.1 F 97.8 F 98 F Pulse Rate 116 H 124 H 102 H Respiratory Rate 17 18 18 Blood Pressure 124/73 114/56 L 116/58 L Pulse Oximetry 98 99 94 L 10/19/17 01:07 10/19/17 04:36 10/19/17 05:36 Temperature 98.3 F 98.0 F Pulse Rate 121 H 118 H Respiratory Rate 16 16 16 Blood Pressure 117/63 131/71 Pulse Oximetry 10/19/17 08:56 10/19/17 09:02 10/19/17 13:17 Temperature 98.4 F 98 F Pulse Rate 123 H 120 H 104 H Respiratory Rate 16 18 Blood Pressure 133/78 127/66 Pulse Oximetry 97 99 Intake & Output 10/18/17 10/19/17 10/19/17 18:59 06:59 18:59 Intake Total 100 / 100 100 / 100 Output Total 1800 / 1800 1050 / 1050 Balance 100 / 100 -1700 / -1700 -1050 / -1050 Intake: IV 100 / 100 100 / 100 Maxipime Inj 2,000 MG In NS Inj 100 / 100 100 / 100 100 ML @ 200 mls/hr IV.SIG Q8H [facility] Rx#:[id number] Output: Urine 1800 / 1800 Urine Amount (Catheter) 1000 / 1000 Indwelling Urethral Catheter 1000 / 1000 Wound Drainage 50 / 50 ZAMZAM Drain 50 / 50 Other: Date of Last Bowel Movement 10/19/17 # Incontinent Bowel Movements 1 10/09/17 15:49 Tissue - Abdominal Fungal Smear - Final No fungal elements seen 10/09/17 15:49 Tissue - Abdominal Fungal Culture - Preliminary No growth in 1 week 10/09/17 15:49 Tissue - Abdominal Acid Fast Bacilli Smear - Final No acid fast bacilli seen 10/09/17 15:49 Tissue - Abdominal Mycobacterial Culture - Preliminary No growth in 1 week Lab - Hematology Results 10/18/17 10/19/17 10/19/17 05:43 05:50 05:50 WBC 26.7 H 31.6 H RBC 3.10 L 3.21 L Hgb 8.6 L 8.7 L Hct 26.2 L 26.3 L MCV 84.6 81.9 MCH 27.9 27.2 MCHC 33.0 33.2 RDW 17.5 H 17.4 H Plt Count 334 382 MPV 7.4 7.2 Prelim Diff (Auto) Slide review pending Slide review pending Neut % (Auto) 88.1 H 91.1 H Lymph % (Auto) 5.4 L 3.2 L Coles % (Auto) 6.1 5.5 Eos % (Auto) 0.2 0.0 Baso % (Auto) 0.2 0.2 Neut # (Auto) 23.5 H 28.7 H Lymph # (Auto) 1.4 1.0 Coles # (Auto) 1.6 H 1.7 H Eos # (Auto) 0.1 0.0 Baso # (Auto) 0.1 0.1 WBC Differential . Manual diff final Diff Scan Auto diff confirmed Seg Neuts % (Manual) 93 H Band Neuts % (Manual) 1 Lymphocytes % (Manual) 4 L Monocytes % (Manual) 2 Abs Neuts (Manual) 29.7 H Differential Comment . . Hypersegmented Neuts 1+ H Platelet Estimate Normal Platelet Morphology Normal Target Cells 1+ H ESR 69 H Lab - Chemistry Results 10/18/17 10/19/17 05:43 05:50 Sodium 139 137 Potassium 4.3 4.2 Chloride 107 105 Carbon Dioxide 24.7 24.9 Anion Gap 7 7 BUN 10 7 Creatinine 0.54 0.58 Estimated GFR Greater than 89 Greater than 89 Random Glucose 55 L 90 Calcium 8.1 L 7.9 L C-Reactive Protein 18.00 H Imaging: ITS Impressions Tibia/Fibula X-Ray 09/27/17 00:00 CONCLUSION: No acute left leg abnormality is identified. Abdomen/Pelvis CT 09/27/17 08:10 CONCLUSION: 1. Mild hepatic steatosis. 2. Thickening of the colon secondary to lack of distention versus colitis. 3. Left lower lobe consolidation and/or atelectasis. There does appear to be a 1.4 cm cavitary area which makes consolidation likely. Head CT 09/27/17 08:10 CONCLUSION: No acute intracranial abnormality is seen. Chest CTA 09/27/17 08:22 CONCLUSION: 1. No pulmonary embolus. 2. Consolidation or atelectasis at the left lower lobe. Venous Doppler Study 09/29/17 00:00 CONCLUSION: No evidence of deep venous thrombosis. Chest X-Ray 10/09/17 16:08 CONCLUSION: 1. Apparent right internal jugular central venous line with the tip projected near the base of the right neck. There is no pneumothorax. 2. Right-sided PICC line now noted. Knee CT 10/18/17 00:00 CONCLUSION: 1. Small joint effusion. 2. Nonspecific subcutaneous edema in the subcutaneous soft tissues above and below the knee. 3. No significant changes compared to the prior exam. Ankle X-Ray 10/19/17 00:00 CONCLUSION: 1. No acute fracture or dislocation. Knee X-Ray 10/19/17 00:00 CONCLUSION: 1. Total knee prosthesis in place. 2. Moderate-sized knee joint effusion. Physical Exam: GENERAL: Alert and oriented, no acute distress. HEENT: Pupils reactive to light. Extraocular movements intact. No icterus. NECK: Supple without adenopathy. No swelling. LUNGS: Decreased breath sounds. HEART: Regular S1 and S2 without murmurs or rubs or gallops. ABDOMEN: Obese, soft. Nontender. Postoperative abdominal incisions with nedra in place along the thighs and inferior abdomen wall. EXTREMITIES: swelling of the left knee. Positive warmth. Tiny ulceration couple millimeters at the knee surgical incision now has purulent drainage. SKIN: No diffuse rash. NEUROLOGIC: Awake and alert and oriented. Nonfocal. PSYCH: Pleasant, calm and cooperative. Assessment and Plan - Plan IMPRESSION: Neutropenic sepsis WBC now elevated. Receive Neupogen but the white blood cell count did not plateau is continuing to rise. Will be secondary to infection. Leucopenia, pancytopenia: ? MTX, ? Psych meds, ? Sepsis contributing. Abdominal fold cellulitis/skin breakdown. Post incision and debridement and closure of skin fold. Groin cellulitis, Mons pubis cellulitis/skin breakdown. H/o fall with scraping of left knee. Left knee hardware in place. CT with fluid collection. Left knee infection - prior wound culture had Pseudomonas and group B beta strep. Recurrent purulent drainage from the incision. Dysphagia: mucositis. Concern for Susy Esophagitis Diarrhea -rule out C. difficile. RECOMMENDATIONS: Continue Cefepime IV to complete 6 weeks until November 08, 2017. Stop Levaquin. Send stool for C. difficile. Send new culture from drainage from the left knee today. Culture obtained by myself. Antibiotic adjustments once the culture becomes available. I have placed a call out to orthopedic physician to notify about the purulent drainage from the knee. Continue Diflucan PO until October 18, 2017. For possible susy abdominal wound infection.
[2017-10-20] MEDS: Sod Chloride 0.9% Inj 1,000 ML IV.CONT SCH ×2 (00:34→11:37)
--- NOTE | 2017-10-20 07:46 | P.PNFP ---
Subjective Interval history: Ms. Mcclain was seen on rounds today. Nursing reports that she has dehiscence of one wound site. Ms Mcclain endorses diffuse abdominal pain that she says has been there for "a while ". When questioned as to why she has not reported abdominal pain sooner she shrugged. She reports that she is having diarrhea. She denies chest pain, shortness of breath, nausea, vomiting, dysuria, dizziness , headaches. <Patsy Baxter - 10/20/17 09:28> Results - Labs Result diagrams: 10/20/17 07:30 10/20/17 07:30 <John Joseph - 10/20/17 15:50> Abnormal lab results 10/19/17 10/20/17 10/20/17 Range/Units 16:30 07:30 07:30 WBC 25.3 H (4.0-11.0) th/mm3 RBC 2.90 L (4.00-5.30) mil/mm3 Hgb 8.0 L (11.6-15.3) gm/dL Hct 23.9 L (35.0-46.0) % Neut % (Auto) 89.7 H (16.0-70.0) % Lymph % (Auto) 4.7 L (9.0-44.0) % Neut # (Auto) 22.7 H (1.8-7.7) th/mm3 [place] # (Auto) 1.3 H (0.0-0.9) th/mm3 Potassium 3.0 L D (3.5-5.1) meq/L BUN 6 L (7-18) mg/dL Calcium 7.9 L (8.5-10.1) mg/dL Stl C.difficile Tox PCR Positive H (Negative) St C. diff Tox Epid 027 Positive H (Negative) Short CBC 10/20/17 Range/Units 07:30 WBC 25.3 H (4.0-11.0) th/mm3 Hgb 8.0 L (11.6-15.3) gm/dL Hct 23.9 L (35.0-46.0) % Plt Count 372 (150-450) th/mm3 BMP 10/20/17 07:30 Sodium 139 Potassium 3.0 L D Chloride 105 Carbon Dioxide 26.4 BUN 6 L Creatinine 0.52 Calcium 7.9 L <John Jsoeph - 10/20/17 15:50> Abnormal lab results 10/19/17 Range/Units 16:30 Stl C.difficile Tox PCR Positive H (Negative) St C. diff Tox Epid 027 Positive H (Negative) <Patsy Baxter - 10/20/17 07:46> - Imaging Impressions Knee CT 10/18/17 00:00 CONCLUSION: 1. Small joint effusion. 2. Nonspecific subcutaneous edema in the subcutaneous soft tissues above and below the knee. 3. No significant changes compared to the prior exam. Ankle X-Ray 10/19/17 00:00 CONCLUSION: 1. No acute fracture or dislocation. Knee X-Ray 10/19/17 00:00 CONCLUSION: 1. Total knee prosthesis in place. 2. Moderate-sized knee joint effusion. <Patsy Baxter - 10/20/17 07:46> Physical Exam Vital signs: Vital Signs 10/19/17 16:00 10/19/17 20:00 10/19/17 22:00 Temperature 98.6 F 98.4 F Pulse Rate 107 H 113 H 95 H Respiratory Rate 16 18 Blood Pressure 134/76 137/74 Pulse Oximetry 97 97 10/20/17 00:00 10/20/17 02:00 10/20/17 04:00 Temperature 97.4 F L 97.5 F L Pulse Rate 116 H 89 99 H Respiratory Rate 17 18 Blood Pressure 139/69 137/69 Pulse Oximetry 96 97 10/20/17 06:00 10/20/17 08:00 10/20/17 10:00 Temperature 97.6 F Pulse Rate 96 H 101 H 99 H Respiratory Rate 18 Blood Pressure 136/79 Pulse Oximetry 97 10/20/17 12:00 Temperature 97.5 F L Pulse Rate 92 H Respiratory Rate 18 Blood Pressure 118/65 Pulse Oximetry 97 Intake & Output 10/19/17 10/20/17 10/20/17 18:59 06:59 18:59 Intake Total 100 / 100 1680 / 1680 1100 / 1100 Output Total 1050 / 1050 1275 / 1275 30 / 30 Balance -950 / -950 405 / 405 1070 / 1070 Weight 106.6 kg Intake: IV 100 / 100 1200 / 1200 1100 / 1100 NS Inj 1,000 ML @ 100 mls/hr IV 1000 / 1000 1000 / 1000 .CONT .Q10H [facility] Rx#:[id number] Maxipime Inj 2,000 MG In NS Inj 100 / 100 200 / 200 100 / 100 100 ML @ 200 mls/hr IV.SIG Q8H [facility] Rx#:[id number] Oral 480 / 480 Output: Urine 1275 / 1275 Urine Amount (Catheter) 1000 / 1000 Indwelling Urethral Catheter 1000 / 1000 Wound Drainage 50 / 50 30 / 30 ZAMZAM Drain 50 / 50 30 / 30 Other: Date of Last Bowel Movement 10/20/17 # Incontinent Bowel Movements 2 <John Joseph - 10/20/17 15:50> Vital Signs 10/19/17 08:56 10/19/17 09:02 10/19/17 13:17 Temperature 98.4 F 98 F Pulse Rate 123 H 120 H 104 H Respiratory Rate 16 18 Blood Pressure 133/78 127/66 Pulse Oximetry 97 99 10/19/17 14:38 10/19/17 16:00 10/19/17 20:00 Temperature 98.6 F 98.4 F Pulse Rate 110 H 107 H 113 H Respiratory Rate 16 18 Blood Pressure 134/76 137/74 Pulse Oximetry 97 97 10/19/17 22:00 10/20/17 00:00 10/20/17 02:00 Temperature 97.4 F L Pulse Rate 95 H 116 H 89 Respiratory Rate 17 Blood Pressure 139/69 Pulse Oximetry 96 10/20/17 04:00 Temperature 97.5 F L Pulse Rate 99 H Respiratory Rate 18 Blood Pressure 137/69 Pulse Oximetry 97 Intake & Output 10/19/17 10/20/17 10/20/17 18:59 06:59 18:59 Intake Total 100 / 100 1680 / 1680 Output Total 1050 / 1050 1275 / 1275 Balance -950 / -950 405 / 405 Weight 106.6 kg Intake: IV 100 / 100 1200 / 1200 NS Inj 1,000 ML @ 100 mls/hr IV 1000 / 1000 .CONT .Q10H [facility] Rx#:[id number] Maxipime Inj 2,000 MG In NS Inj 100 / 100 200 / 200 100 ML @ 200 mls/hr IV.SIG Q8H [facility] Rx#:[id number] Oral 480 / 480 Output: Urine 1275 / 1275 Urine Amount (Catheter) 1000 / 1000 Indwelling Urethral Catheter 1000 / 1000 Wound Drainage 50 / 50 ZAMZAM Drain 50 / 50 <Patsy Baxter 10/20/17 07:46> Narrative: GENERAL: Obese female laying in bed, no acute distress SKIN: Warm and dry. Abdominal drainage tube in place with serosanguineous fluid. Dehiscence of left thigh vision. Skin breakdown on right thigh/lower abdomen. Skin opening in left knee inferior to the patella. CARDIOVASCULAR: Mild tachycardia. Regular rhythm without murmurs, gallops, or rubs. RESPIRATORY: Decreased breath sounds in bases bilaterally, improved with increased patient effort. No accessory muscle use. No wheezing. GASTROINTESTINAL: Tender upon elevation of pannus. Abdomen soft, nondistended. Normoactive bowel sounds. Rectal tube removed EXTREMITIES: Skin of L lower leg peeling from knee to ankle, improved erythema. Right knee swelling. L pedal edema 1+. Trace R pedal edema. No tenderness to left knee, and place over opening of her left knee scar site. : Hopper catheter in place, light yellow fluid in bag. <Patsy Baxter 10/20/17 09:28> - Urinary Catheter Management Indwelling Urethral Catheter Cath placed during this visit: no <John Joseph - 10/20/17 15:50> yes, but has since been removed by the nurse <Patsy Baxter 10/20/17 09:28> Reason for continuing: Other continuation reason <Patsy Baxter 10/20/17 07: 46> Insertion date: 09/27/17 <Patsy Baxter 10/20/17 07:46> Insertion time: 08:20 <Patsy Baxter 10/20/17 07:46> Removal date: 10/05/17 <Patsy Baxter 10/20/17 07:46> Removal time: 17:30 <Patsy Baxter 10/20/17 07:46> Assessment and Plan - Assessment (1) Cellulitis of knee, left Code(s): L03.116 - Cellulitis of left lower limb Status: Acute (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 - Infection and inflammatory reaction due to unspecified internal joint prosthesis, initial encounter Status: Suspected (3) Diarrhea Code(s): R19.7 - Diarrhea, unspecified Status: Resolved (4) Fall Code(s): W19.XXXA - Unspecified fall, initial encounter Status: Acute (5) Fungal infection of skin of abdomen Code(s): B36.9 - Superficial mycosis, unspecified Status: Acute (6) Pneumonia Code(s): J18.9 - Pneumonia, unspecified organism Status: Resolved (7) Hypertension Code(s): I10 - Essential (primary) hypertension Status: Acute (8) Schizophrenia Code(s): F20.9 - Schizophrenia, unspecified Status: Chronic (9) Nutrition, metabolism, and development symptoms Code(s): R63.8 - Other symptoms and signs concerning food and fluid intake Status: Acute <John Joseph - 10/20/17 15:50> (1) Cellulitis of knee, left Code(s): L03.116 - Cellulitis of left lower limb Status: Acute Plan: -ID consulted- recommend Cefepime IV until 11/08, Levaquin po until 11/08 -CT knee report unchanged, small effusion History: -Diflucan course completed 10/18 -s/p 2 weeks of Keflex 500mg po. evaluated by ortho with no changes to management recommended. Knee looks improved from reported exam on admission. Minimal swelling. No erythema. Non tender to palpation. Patient has been OOB with assistance S/p PICC line placement. 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 F/u -Orthopedics ([place] for Dr. 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 She completed rehabilitation and was discharged home August 23. Patient was on approximately 2 weeks of po Keflex 500 mg. Per Ortho, examination of left knee shows no evidence of infection. (3) Diarrhea Code(s): R19.7 - Diarrhea, unspecified Status: Resolved Plan: -Noted by nursing/ID to have increased diarrhea surrounding rectal tube yesterday -C diff cultures positive, likely cause of leukocytosis -Vancomycin PO 125 4 times daily -Continue with probiotics. -Plans to replace rectal tube today History: On admission patient presented with 3-day history of diarrhea in the setting of recent antibiotics. All bowel regimens held. Patient C. difficile negative on admission. (4) Fall Code(s): W19.XXXA - Unspecified fall, initial encounter Status: Acute Plan: Fell 10/19/17. No loss of consciousness, no head injury, left knee and ankle pain. -Knee x-ray- prosthesis in place, no frx noted -ankle x-ray- no frx noted (5) Fungal infection of skin of abdomen Code(s): B36.9 - Superficial mycosis, unspecified Status: Acute Plan: -Continue current course of antibiotics -Repeat CBC in a.m. History: Surgical procedure 10/09, wound VAC applied. VAC changed 10/12 removed 10/15. (6) Pneumonia Code(s): J18.9 - Pneumonia, unspecified organism Status: Resolved Plan: -Patient currently on Levaquin. -Continue to monitor vital signs -Continue incentive spirometry History: Patient found to have left lower lobe consolidation on chest CTA. Lungs CTAB today. She remains afebrile, with O2 sat WNL on room air. (7) Hypertension Code(s): I10 - Essential (primary) hypertension Status: Acute Plan: History of hypertension -continue to monitor (8) Schizophrenia Code(s): F20.9 - Schizophrenia, unspecified Status: Chronic Plan: -Psych consulted- recommend Continue Abilify 30 mg for psychosis, okay to continue buspirone 30 mg, trazodone 100 mg and Cymbalta 60 mg -Hold anticholinergics per Psych Patient with chronic history of schizophrenia. On admission patient presented with active hallucinations of seeing someone out to get her. No hallucinations over night (9) Nutrition, metabolism, and development symptoms Code(s): R63.8 - Other symptoms and signs concerning food and fluid intake Status: Acute Plan: Fluids: 100mls/hr Electrolytes: Replete as needed Nutrition: cardiac diet, continue to monitor po intake, supplement with ensure. Encouraged patient that she needed to increase p.o. intake in order to heal DVT prophylaxis: SCDs Continue to work with PT to get OOB <Patsy Baxter - 10/20/17 09:22> - Assessment and Plan Discussed Condition With: Dr Joseph <Patsy Baxter - 10/20/17 07:46> - Attending Attestation Pt. examined and case discussed with resident physicians. I have read the above note and agree with the assessment and plan as discussed with me. I was involved in all medical decision making for this patient. John Joseph MD <John Joseph - 10/20/17 15:50> <Patsy Baxter E - Last Filed: 10/20/17 09:22> (6) Pneumonia Qualifiers: Pneumonia type: due to unspecified organism Laterality: left Lung location: lower lobe of lung Qualified Code(s): J18.1 - Lobar pneumonia, unspecified organism (7) Hypertension Qualifiers: Hypertension type: essential hypertension Qualified Code(s): I10 - Essential (primary) hypertension <John Joseph - Last Filed: 10/20/17 15:50> (6) Pneumonia Qualifiers: Pneumonia type: due to unspecified organism Laterality: left Lung location: lower lobe of lung Qualified Code(s): J18.1 - Lobar pneumonia, unspecified organism (7) Hypertension Qualifiers: Hypertension type: essential hypertension Qualified Code(s): I10 - Essential (primary) hypertension <Patsy Baxter - Last Filed: 10/20/17 09:22> (6) Pneumonia Qualifiers: Pneumonia type: due to unspecified organism Laterality: left Lung location: lower lobe of lung Qualified Code(s): J18.1 - Lobar pneumonia, unspecified organism (7) Hypertension Qualifiers: Hypertension type: essential hypertension Qualified Code(s): I10 - Essential (primary) hypertension <John Joseph - Last Filed: 10/20/17 15:50> (6) Pneumonia Qualifiers: Pneumonia type: due to unspecified organism Laterality: left Lung location: lower lobe of lung Qualified Code(s): J18.1 - Lobar pneumonia, unspecified organism (7) Hypertension Qualifiers: Hypertension type: essential hypertension Qualified Code(s): I10 - Essential (primary) hypertension
[2017-10-20 08:19] LABS: Baso # (Auto) 0.1 th/mm3 (0.0-0.2); Baso % (Auto) 0.4 % (0.0-2.0); Eos # (Auto) 0.1 th/mm3 (0.0-0.4); Eos % (Auto) 0.2 % (0.0-4.0); Hematocrit 23.9 % (35.0-46.0); Lymph # (Auto) 1.2 th/mm3 (1.0-4.8); Lymph % (Auto) 4.7 % (9.0-44.0); Mean Corpuscular HGB Conc 33.6 % (32.0-36.0); Mean Corpuscular Hemoglobin 27.8 pg (27.0-34.0); Mean Corpuscular Volume 82.6 fL (80.0-100.0); Mono # (Auto) 1.3 th/mm3 (0.0-0.9); Neut # (Auto) 22.7 th/mm3 (1.8-7.7); Neut % (Auto) 89.7 % (16.0-70.0); Platelet Count 372 th/mm3 (150-450); White Blood Count 25.3 th/mm3 (4.0-11.0)
[2017-10-20] MEDS: Morphine Sulfate Inj 2 MG/ML Vial IV.PUSH PRN (08:39)
[2017-10-20 08:41] LABS: Anion Gap 8 meq/L (5-15); Blood Urea Nitrogen 6 mg/dL (7-18); Calcium 7.9 mg/dL (8.5-10.1); Carbon Dioxide 26.4 meq/L (21.0-32.0); Chloride 105 meq/L (98-107); Glomerular Filtration Rate Greater Than 89 mL/min (>89); Glucose,Random 74 mg/dL (74-106); Sodium 139 meq/L (136-145)
[2017-10-20] MEDS: Pantoprazole Sodium 20 MG DR Tablet PO SCH (08:46)
[2017-10-20] MEDS: Duloxetine 60 MG DR Capsule PO SCH (08:46)
[2017-10-20] MEDS: traZODone 100 MG Tablet PO SCH (08:46)
[2017-10-20] MEDS: Metoprolol Tartrate 25 MG Tablet PO SCH ×2 (08:46→21:05)
[2017-10-20] MEDS: Folic Acid 1 MG Tablet PO SCH (08:46)
[2017-10-20] MEDS: dilTIAZem 60 MG Tablet PO SCH ×3 (08:46→17:10)
[2017-10-20] MEDS: levoFLOXacin 750 MG Tablet PO SCH (08:46)
[2017-10-20] MEDS: Heparin Central Flush 100 UNIT/ML 5 ML Vial IV.FLUSH SCH (08:47)
--- NOTE | 2017-10-20 12:12 | P.PN ---
Subjective Interval history: Patient fell yesterday and left groin wound opened up somewhat Physical Exam Vital signs: Vital Signs 10/19/17 13:17 10/19/17 14:38 10/19/17 16:00 Temperature 98 F 98.6 F Pulse Rate 104 H 110 H 107 H Respiratory Rate 18 16 Blood Pressure 127/66 134/76 Pulse Oximetry 99 97 10/19/17 20:00 10/19/17 22:00 10/20/17 00:00 Temperature 98.4 F 97.4 F L Pulse Rate 113 H 95 H 116 H Respiratory Rate 18 17 Blood Pressure 137/74 139/69 Pulse Oximetry 97 96 10/20/17 02:00 10/20/17 04:00 10/20/17 06:00 Temperature 97.5 F L Pulse Rate 89 99 H 96 H Respiratory Rate 18 Blood Pressure 137/69 Pulse Oximetry 97 10/20/17 08:00 10/20/17 10:00 Temperature 97.6 F Pulse Rate 101 H 99 H Respiratory Rate 18 Blood Pressure 136/79 Pulse Oximetry 97 Intake & Output 10/19/17 10/20/17 10/20/17 18:59 06:59 18:59 Intake Total 100 / 100 1680 / 1680 1100 / 1100 Output Total 1050 / 1050 1275 / 1275 30 / 30 Balance -950 / -950 405 / 405 1070 / 1070 Weight 106.6 kg Intake: IV 100 / 100 1200 / 1200 1100 / 1100 NS Inj 1,000 ML @ 100 mls/hr IV 1000 / 1000 1000 / 1000 .CONT .Q10H [facility] Rx#:[id number] Maxipime Inj 2,000 MG In NS Inj 100 / 100 200 / 200 100 / 100 100 ML @ 200 mls/hr IV.SIG Q8H [facility] Rx#:[id number] Oral 480 / 480 Output: Urine 1275 / 1275 Urine Amount (Catheter) 1000 / 1000 Indwelling Urethral Catheter 1000 / 1000 Wound Drainage 50 / 50 30 / 30 ZAMZAM Drain 50 / 50 30 / 30 Other: # Incontinent Bowel Movements 2 - Routine Abdominal Exam Present: soft Comments: Abominal wound clean with most of wound dry; some serosanguineous drainage from right corner of abdominal wound. - Urinary Catheter Management Indwelling Urethral Catheter Cath placed during this visit: yes, but has since been removed by the nurse Reason for continuing: Other continuation reason Insertion date: 09/27/17 Insertion time: 08:20 Removal date: 10/05/17 Removal time: 17:30 Results - Labs CBC & Chem 7: 10/20/17 07:30 10/20/17 07:30 Laboratory Results - last 24 hr 10/19/17 10/20/17 10/20/17 16:30 07:30 07:30 WBC 25.3 H RBC 2.90 L Hgb 8.0 L Hct 23.9 L MCV 82.6 MCH 27.8 MCHC 33.6 RDW 17.0 Plt Count 372 MPV 7.0 Neut % (Auto) 89.7 H Lymph % (Auto) 4.7 L [place] % (Auto) 5.0 Eos % (Auto) 0.2 Baso % (Auto) 0.4 Neut # (Auto) 22.7 H Lymph # (Auto) 1.2 [place] # (Auto) 1.3 H Eos # (Auto) 0.1 Baso # (Auto) 0.1 WBC Differential . Differential Comment Auto diff final Sodium 139 Potassium 3.0 L D Chloride 105 Carbon Dioxide 26.4 Anion Gap 8 BUN 6 L Creatinine 0.52 Estimated GFR Greater than 89 Random Glucose 74 Calcium 7.9 L Stl C.difficile Tox PCR Positive H St C. diff Tox Epid 027 Positive H Microbiology 10/19/17 13:50 Wound - Knee Gram Stain - Final Assessment and Plan - Plan Start dressing changes to left groin Continue maxsorb on abdominal wound, as it seems to be keeping most of the wound dry and preventing skin maceration. Discussed Condition With: Nurse
--- NOTE | 2017-10-20 12:44 | P.PNID ---
Subjective Remarks: ID coverage. Follow up. 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 Post op it appears she was discharged to a rehab. She was discharged from the rehab to home with her on August 23. Patient reports she lives at home with her who is on disability. Unsure of nature of disability at this time and his ability to take care of her. She was reportedly able to ambulate on her own initially followed by weakness and need for walker and then to a point where she did not want to get out of bed. It has been reported to others that she had some discharge at the left surgical site area and ortho surgeon prescribed oral keflex which reportedly lead to some improvement. She reportedly completed a week of antibiotic treatment with last day scheduled for today with some improvement in her knee pain. However her stated that she was starting to have more drainage from her knee just over the past day or so. He had pointed to several areas that had been draining pus from just above and just below the knee. He stated that a cup full of pus would drain at a time. Additionally the abdominal fold wounds appear to have been present for atleast 3 weeks now. Additionally patient has a psychiatric history and is on medications such as Cymbalta and Abilify. She actively hallucinates per dw resident team and psych would like to resume her meds that are on hold due to severe neutropenia. With this background patient presents to the ED with complaints of worsening shortness of breath and mental status accompanied with symptoms of diarrhea (3 days, non-bloody) and decreased p.o. intake (5 days). She was also brought into the hospital due to infection of her knee that improved with Keflex p.o but now has returned with new additional drainage over the past few days. ID consulted for evaluation and Mment of Left knee prosthetic joint infection and neutropenia. Called to see patient for additional recommendations. Patient underwent incision and debridement of the inferior abdominal wall and proximal inner thighs on 10/12/2017. Receiving IV antibiotics for left knee infection. A CT scan was obtained yesterday evening and it showed small joint effusion and subcutaneous edema of the fat at the left knee. Patient reports that she had pain 10/10 scale in the left knee. She fell on the way to the bathroom 10/19/17. She now has an opening at the incision of the left knee which started draining purulent material. She has loose stools. Rectal bag. Stool c. diff positive. Have little purulent drainage from the left knee incision on dressing. Denies nausea vomiting. Denies chills. The white blood cell count remain elevated. Received Neupogen. Stopped 09/30. No fever. Antibiotics: Cefepime Diflucan. Vancomycin PO. Allergies/Adverse Reactions: Allergies amoxicillin Allergy (Verified 09/27/17 17:54) Swelling Objective Vital Signs 10/19/17 13:17 10/19/17 14:38 10/19/17 16:00 Temperature 98 F 98.6 F Pulse Rate 104 H 110 H 107 H Respiratory Rate 18 16 Blood Pressure 127/66 134/76 Pulse Oximetry 99 97 10/19/17 20:00 10/19/17 22:00 10/20/17 00:00 Temperature 98.4 F 97.4 F L Pulse Rate 113 H 95 H 116 H Respiratory Rate 18 17 Blood Pressure 137/74 139/69 Pulse Oximetry 97 96 10/20/17 02:00 10/20/17 04:00 10/20/17 06:00 Temperature 97.5 F L Pulse Rate 89 99 H 96 H Respiratory Rate 18 Blood Pressure 137/69 Pulse Oximetry 97 10/20/17 08:00 10/20/17 10:00 Temperature 97.6 F Pulse Rate 101 H 99 H Respiratory Rate 18 Blood Pressure 136/79 Pulse Oximetry 97 Intake & Output 10/19/17 10/20/17 10/20/17 18:59 06:59 18:59 Intake Total 100 / 100 1680 / 1680 1100 / 1100 Output Total 1050 / 1050 1275 / 1275 30 / 30 Balance -950 / -950 405 / 405 1070 / 1070 Weight 106.6 kg Intake: IV 100 / 100 1200 / 1200 1100 / 1100 NS Inj 1,000 ML @ 100 mls/hr IV 1000 / 1000 1000 / 1000 .CONT .Q10H [facility] Rx#:[id number] Maxipime Inj 2,000 MG In NS Inj 100 / 100 200 / 200 100 / 100 100 ML @ 200 mls/hr IV.SIG Q8H [facility] Rx#:[id number] Oral 480 / 480 Output: Urine 1275 / 1275 Urine Amount (Catheter) 1000 / 1000 Indwelling Urethral Catheter 1000 / 1000 Wound Drainage 50 / 50 30 / 30 ZAMZAM Drain 50 / 50 30 / 30 Other: # Incontinent Bowel Movements 2 10/19/17 13:50 Wound - Knee Gram Stain - Final 10/19/17 13:50 Wound - Knee Wound Culture - Preliminary No growth in 24 hours Lab - Hematology Results 10/19/17 10/19/17 10/20/17 05:50 05:50 07:30 WBC 31.6 H 25.3 H RBC 3.21 L 2.90 L Hgb 8.7 L 8.0 L Hct 26.3 L 23.9 L MCV 81.9 82.6 MCH 27.2 27.8 MCHC 33.2 33.6 RDW 17.4 H 17.0 Plt Count 382 372 MPV 7.2 7.0 Prelim Diff (Auto) Slide review pending Neut % (Auto) 91.1 H 89.7 H Lymph % (Auto) 3.2 L 4.7 L Moody % (Auto) 5.5 5.0 Eos % (Auto) 0.0 0.2 Baso % (Auto) 0.2 0.4 Neut # (Auto) 28.7 H 22.7 H Lymph # (Auto) 1.0 1.2 Moody # (Auto) 1.7 H 1.3 H Eos # (Auto) 0.0 0.1 Baso # (Auto) 0.1 0.1 WBC Differential Manual diff final . Seg Neuts % (Manual) 93 H Band Neuts % (Manual) 1 Lymphocytes % (Manual) 4 L Monocytes % (Manual) 2 Abs Neuts (Manual) 29.7 H Differential Comment . Auto diff final Hypersegmented Neuts 1+ H Platelet Estimate Normal Platelet Morphology Normal Target Cells 1+ H ESR 69 H Lab - Chemistry Results 10/19/17 10/20/17 05:50 07:30 Sodium 137 139 Potassium 4.2 3.0 L D Chloride 105 105 Carbon Dioxide 24.9 26.4 Anion Gap 7 8 BUN 7 6 L Creatinine 0.58 0.52 Estimated GFR Greater than 89 Greater than 89 Random Glucose 90 74 Calcium 7.9 L 7.9 L C-Reactive Protein 18.00 H Imaging: ITS Impressions Tibia/Fibula X-Ray 09/27/17 00:00 CONCLUSION: No acute left leg abnormality is identified. Abdomen/Pelvis CT 09/27/17 08:10 CONCLUSION: 1. Mild hepatic steatosis. 2. Thickening of the colon secondary to lack of distention versus colitis. 3. Left lower lobe consolidation and/or atelectasis. There does appear to be a 1.4 cm cavitary area which makes consolidation likely. Head CT 09/27/17 08:10 CONCLUSION: No acute intracranial abnormality is seen. Chest CTA 09/27/17 08:22 CONCLUSION: 1. No pulmonary embolus. 2. Consolidation or atelectasis at the left lower lobe. Venous Doppler Study 09/29/17 00:00 CONCLUSION: No evidence of deep venous thrombosis. Chest X-Ray 10/09/17 16:08 CONCLUSION: 1. Apparent right internal jugular central venous line with the tip projected near the base of the right neck. There is no pneumothorax. 2. Right-sided PICC line now noted. Knee CT 10/18/17 00:00 CONCLUSION: 1. Small joint effusion. 2. Nonspecific subcutaneous edema in the subcutaneous soft tissues above and below the knee. 3. No significant changes compared to the prior exam. Ankle X-Ray 10/19/17 00:00 CONCLUSION: 1. No acute fracture or dislocation. Knee X-Ray 10/19/17 00:00 CONCLUSION: 1. Total knee prosthesis in place. 2. Moderate-sized knee joint effusion. Physical Exam: GENERAL: Alert and oriented, no acute distress. HEENT: Pupils reactive to light. Extraocular movements intact. No icterus. NECK: Supple without adenopathy. No swelling. LUNGS: Decreased breath sounds. HEART: Regular S1 and S2 without murmurs or rubs or gallops. ABDOMEN: Obese, soft. Nontender. Postoperative abdominal incisions with nedra in place along the thighs and inferior abdomen wall. ZAMZAM in abdominal wound bed has serous drainage. EXTREMITIES: swelling of the left knee. Positive warmth. Tiny ulceration couple millimeters at the knee surgical incision. Purulent drainage on noted 10/19, less today. SKIN: No diffuse rash. NEUROLOGIC: Awake and alert and oriented. Nonfocal. PSYCH: Pleasant, calm and cooperative. Assessment and Plan - Plan IMPRESSION: Neutropenic sepsis WBC now elevated. Receive Neupogen but the white blood cell count did not plateau is continuing to rise. Will be secondary to infection. Leucopenia, pancytopenia: ? MTX, ? Psych meds, ? Sepsis contributing. Abdominal fold cellulitis/skin breakdown. Post incision and debridement and closure of skin fold. Groin cellulitis, Mons pubis cellulitis/skin breakdown. H/o fall with scraping of left knee. Left knee hardware in place. CT with fluid collection. Left knee infection - prior wound culture had Pseudomonas and group B beta strep. Recurrent purulent drainage from the incision. Repeat wound culture pending. Dysphagia: mucositis. Concern for Susy Esophagitis Diarrhea - Positive C. difficile. RECOMMENDATIONS: Continue Cefepime IV to complete 6 weeks until November 08, 2017. Stop Levaquin. Stop Diflucan. Continue Vancomycin for C. difficile. Monitor knee wound culture. Antibiotic adjustments once the culture becomes available. I have placed a call out to orthopedic physician to notify about the purulent drainage from the knee. Resident communicated with Orthopedics and reported to me that no intervention is planned.
[2017-10-21] MEDS: Sod Chloride 0.9% Inj 1,000 ML IV.CONT SCH ×7 (03:08→22:45)
[2017-10-21 06:35] LABS: Baso # (Auto) 0.1 th/mm3 (0.0-0.2); Baso % (Auto) 0.4 % (0.0-2.0); Eos # (Auto) 0.1 th/mm3 (0.0-0.4); Eos % (Auto) 0.4 % (0.0-4.0); Hematocrit 22.6 % (35.0-46.0); Hemoglobin 7.6 gm/dL (11.6-15.3); Lymph # (Auto) 1.1 th/mm3 (1.0-4.8); Lymph % (Auto) 5.2 % (9.0-44.0); Mean Corpuscular HGB Conc 33.7 % (32.0-36.0); Mean Corpuscular Hemoglobin 27.8 pg (27.0-34.0); Mean Corpuscular Volume 82.5 fL (80.0-100.0); Mean Platelet Volume 6.9 fL (7.0-11.0); Mono # (Auto) 1.2 th/mm3 (0.0-0.9); Mono % (Auto) 5.5 % (0.0-8.0); Neut % (Auto) 88.5 % (16.0-70.0); Platelet Count 356 th/mm3 (150-450); Red Blood Count 2.74 mil/mm3 (4.00-5.30); Red Cell Distribution Width 16.8 % (11.6-17.2); White Blood Count 21.4 th/mm3 (4.0-11.0)
[2017-10-21 07:09] LABS: Anion Gap 6 meq/L (5-15); Blood Urea Nitrogen 7 mg/dL (7-18); Calcium 7.5 mg/dL (8.5-10.1); Carbon Dioxide 27.4 meq/L (21.0-32.0); Chloride 109 meq/L (98-107); Glomerular Filtration Rate Greater Than 89 mL/min (>89); Glucose,Random 62 mg/dL (74-106); Sodium 142 meq/L (136-145)
[2017-10-21] MEDS ORDERED: Potassium Chlor 20 mEq Premix 20 MEQ/100 ML PIGGYBACK IV.SIG ONE (07:45)
--- NOTE | 2017-10-21 08:54 | P.PNFP ---
Subjective Interval history: Patient is seen and examined today. No acute events overnight. Denies nausea, vomiting, fever, chills abdominal pain, chest pain, shortness of breath, lightheadedness, dizziness. He is due to recent diarrhea. No other acute complaints. <RamonaMartín - 10/21/17 08:53> Results - Labs Result diagrams: 10/21/17 06:20 10/21/17 06:20 <John Joseph - 10/21/17 13:57> Abnormal lab results 10/21/17 10/21/17 Range/Units 06:20 06:20 WBC 21.4 H (4.0-11.0) th/mm3 RBC 2.74 L (4.00-5.30) mil/mm3 Hgb 7.6 L (11.6-15.3) gm/dL Hct 22.6 L (35.0-46.0) % MPV 6.9 L (7.0-11.0) fL Neut % (Auto) 88.5 H (16.0-70.0) % Lymph % (Auto) 5.2 L (9.0-44.0) % Neut # (Auto) 19.0 H (1.8-7.7) th/mm3 Briscoe # (Auto) 1.2 H (0.0-0.9) th/mm3 Potassium 3.0 L (3.5-5.1) meq/L Chloride 109 H (98-107) meq/L Creatinine 0.43 L (0.50-1.00) mg/dL Random Glucose 62 L (74-106) mg/dL Calcium 7.5 L (8.5-10.1) mg/dL Short CBC 10/21/17 Range/Units 06:20 WBC 21.4 H (4.0-11.0) th/mm3 Hgb 7.6 L (11.6-15.3) gm/dL Hct 22.6 L (35.0-46.0) % Plt Count 356 (150-450) th/mm3 BMP 10/21/17 06:20 Sodium 142 Potassium 3.0 L Chloride 109 H Carbon Dioxide 27.4 BUN 7 Creatinine 0.43 L Calcium 7.5 L <John Joseph - 10/21/17 13:57> Abnormal lab results 10/21/17 10/21/17 Range/Units 06:20 06:20 WBC 21.4 H (4.0-11.0) th/mm3 RBC 2.74 L (4.00-5.30) mil/mm3 Hgb 7.6 L (11.6-15.3) gm/dL Hct 22.6 L (35.0-46.0) % MPV 6.9 L (7.0-11.0) fL Neut % (Auto) 88.5 H (16.0-70.0) % Lymph % (Auto) 5.2 L (9.0-44.0) % Neut # (Auto) 19.0 H (1.8-7.7) th/mm3 Briscoe # (Auto) 1.2 H (0.0-0.9) th/mm3 Potassium 3.0 L (3.5-5.1) meq/L Chloride 109 H (98-107) meq/L Creatinine 0.43 L (0.50-1.00) mg/dL Random Glucose 62 L (74-106) mg/dL Calcium 7.5 L (8.5-10.1) mg/dL Short CBC 10/21/17 Range/Units 06:20 WBC 21.4 H (4.0-11.0) th/mm3 Hgb 7.6 L (11.6-15.3) gm/dL Hct 22.6 L (35.0-46.0) % Plt Count 356 (150-450) th/mm3 BMP 10/21/17 06:20 Sodium 142 Potassium 3.0 L Chloride 109 H Carbon Dioxide 27.4 BUN 7 Creatinine 0.43 L Calcium 7.5 L <Saeed Greene A - 10/21/17 08:53> Physical Exam Vital signs: Vital Signs 10/20/17 16:00 10/20/17 20:00 10/21/17 00:00 Temperature 97.9 F 97.7 F 97.6 F Pulse Rate 84 100 H 95 H Respiratory Rate 18 18 18 Blood Pressure 125/58 L 125/67 127/75 Pulse Oximetry 98 97 97 10/21/17 04:00 10/21/17 08:00 10/21/17 12:00 Temperature 97.6 F 98.1 F 97.8 F Pulse Rate 107 H 94 H Respiratory Rate 18 18 18 Blood Pressure 156/88 H 155/111 H 133/74 Pulse Oximetry 97 96 97 Intake & Output 10/20/17 10/21/17 10/21/17 18:59 06:59 18:59 Intake Total 1200 / 1200 1200 / 1200 1000 / 1000 Output Total 630 / 630 800 / 800 Balance 570 / 570 400 / 400 1000 / 1000 Weight 107.5 kg Intake: IV 1200 / 1200 1200 / 1200 1000 / 1000 NS Inj 1,000 ML @ 100 mls/hr IV 1000 / 1000 1000 / 1000 1000 / 1000 .CONT .Q10H [facility] Rx#:[id number] Maxipime Inj 2,000 MG In NS Inj 200 / 200 200 / 200 100 ML @ 200 mls/hr IV.SIG Q8H [facility] Rx#:[id number] Output: Urine 600 / 600 800 / 800 Wound Drainage 30 / 30 ZAMZAM Drain Other: Date of Last Bowel Movement 10/20/17 10/20/17 # Incontinent Bowel Movements 2 1 <John Joseph - 10/21/17 13:57> Vital Signs 10/20/17 10:00 10/20/17 12:00 10/20/17 16:00 Temperature 97.5 F L 97.9 F Pulse Rate 99 H 89 84 Respiratory Rate 18 18 Blood Pressure 118/65 125/58 L Pulse Oximetry 97 98 10/20/17 20:00 10/21/17 00:00 10/21/17 04:00 Temperature 97.7 F 97.6 F 97.6 F Pulse Rate 100 H 95 H Respiratory Rate 18 18 18 Blood Pressure 125/67 127/75 156/88 H Pulse Oximetry 97 97 97 Intake & Output 10/20/17 10/21/17 10/21/17 18:59 06:59 18:59 Intake Total 1200 / 1200 1200 / 1200 Output Total 630 / 630 800 / 800 Balance 570 / 570 400 / 400 Weight 107.5 kg Intake: IV 1200 / 1200 1200 / 1200 NS Inj 1,000 ML @ 100 mls/hr IV 1000 / 1000 1000 / 1000 .CONT .Q10H [facility] Rx#:[id number] Maxipime Inj 2,000 MG In NS Inj 200 / 200 200 / 200 100 ML @ 200 mls/hr IV.SIG Q8H [facility] Rx#:[id number] Output: Urine 600 / 600 800 / 800 Wound Drainage 30 / 30 ZAMZAM Drain 30 Other: Date of Last Bowel Movement 10/20/17 10/20/17 # Incontinent Bowel Movements 2 1 <Saeed Greene - 10/21/17 08:53> Narrative: GENERAL: Obese female laying in bed, no acute distress SKIN: Warm and dry. Abdominal drainage tube in place with serosanguineous fluid. Dehiscence of left thigh incision. Skin breakdown on right thigh/lower abdomen. Skin opening in left knee inferior to the patella. CARDIOVASCULAR: Mild tachycardia. Regular rhythm without murmurs, gallops, or rubs. RESPIRATORY: Decreased breath sounds in bases bilaterally, improved with increased patient effort. No accessory muscle use. No wheezing. GASTROINTESTINAL: Tender upon elevation of pannus. Abdomen soft, nondistended. Normoactive bowel sounds. Rectal tube removed EXTREMITIES: Skin of L lower leg peeling from knee to ankle, improved erythema. Right knee swelling. L pedal edema 1+. Trace R pedal edema. No tenderness to left knee, and place over opening of her left knee scar site. : Hopper catheter in place, light yellow fluid in bag. <Saeed Greene 10/21/17 08:53> - Urinary Catheter Management Indwelling Urethral Catheter Cath placed during this visit: no <John Joseph 10/21/17 13:57> yes, but has since been removed by the nurse <Saeed Greene 10/21/17 08:53> Reason for continuing: Other continuation reason <Saeed Greene 10/21/17 08:53> Insertion date: 09/27/17 <Saeed Greene 10/21/17 08:53> Insertion time: 08:20 <Saeed Greene 10/21/17 08:53> Removal date: 10/05/17 <Saeed Greene 10/21/17 08:53> Removal time: 17:30 <Saeed Greene 10/21/17 08:53> Assessment and Plan - Assessment (1) Cellulitis of knee, left Code(s): L03.116 - Cellulitis of left lower limb Status: Acute (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 - Infection and inflammatory reaction due to unspecified internal joint prosthesis, initial encounter Status: Suspected (3) Diarrhea Code(s): R19.7 - Diarrhea, unspecified Status: Resolved (4) Fall Code(s): W19.XXXA - Unspecified fall, initial encounter Status: Acute (5) Fungal infection of skin of abdomen Code(s): B36.9 - Superficial mycosis, unspecified Status: Acute (6) Pneumonia Code(s): J18.9 - Pneumonia, unspecified organism Status: Resolved (7) Hypertension Code(s): I10 - Essential (primary) hypertension Status: Acute (8) Schizophrenia Code(s): F20.9 - Schizophrenia, unspecified Status: Chronic (9) Nutrition, metabolism, and development symptoms Code(s): R63.8 - Other symptoms and signs concerning food and fluid intake Status: Acute <John Joseph - 10/21/17 13:57> (1) Cellulitis of knee, left Code(s): L03.116 - Cellulitis of left lower limb Status: Acute Plan: -ID consulted- recommend Cefepime IV until 11/08, vancomycin for cdiff -CT knee report unchanged, small effusion History: -levaquin stopped 10/20 per ID -Diflucan course completed 10/18 -s/p 2 weeks of Keflex 500mg po. evaluated by ortho with no changes to management recommended. Knee looks improved from reported exam on admission. Minimal swelling. No erythema. Non tender to palpation. Patient has been OOB with assistance S/p PICC line placement. No signs of infection at PICC line (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 - Infection and inflammatory reaction due to unspecified internal joint prosthesis, initial encounter Status: Suspected Plan: - New opening of skin post fall, increased draining of purulent fluid -Culture of wound taken by ID. NGTD -Orthopedics ([place] for Dr. 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 She completed rehabilitation and was discharged home August 23. Patient was on approximately 2 weeks of po Keflex 500 mg. Per Ortho, examination of left knee shows no evidence of infection. (3) Diarrhea Code(s): R19.7 - Diarrhea, unspecified Status: Resolved Plan: -C diff cultures positive, likely cause of leukocytosis -Vancomycin PO 125 4 times daily -Continue with probiotics. -Plans to replace rectal tube today History: On admission patient presented with 3-day history of diarrhea in the setting of recent antibiotics. All bowel regimens held. Patient C. difficile negative on admission. (4) Fall Code(s): W19.XXXA - Unspecified fall, initial encounter Status: Acute Plan: Fell 10/19/17. No loss of consciousness, no head injury, left knee and ankle pain. -Knee x-ray- prosthesis in place, no frx noted -ankle x-ray- no frx noted (5) Fungal infection of skin of abdomen Code(s): B36.9 - Superficial mycosis, unspecified Status: Acute Plan: -Continue current course of antibiotics -Repeat CBC in a.m. History: Surgical procedure 10/09, wound VAC applied. VAC changed 10/12 removed 10/15. (6) Pneumonia Code(s): J18.9 - Pneumonia, unspecified organism Status: Resolved Plan: Currently without symptoms of pneumonia -Continue to monitor vital signs -Continue incentive spirometry History: Patient found to have left lower lobe consolidation on chest CTA. Lungs CTAB today. She remains afebrile, with O2 sat WNL on room air. (7) Hypertension Code(s): I10 - Essential (primary) hypertension Status: Acute Plan: History of hypertension -continue to monitor (8) Schizophrenia Code(s): F20.9 - Schizophrenia, unspecified Status: Chronic Plan: -Psych consulted- recommend Continue Abilify 30 mg for psychosis, okay to continue buspirone 30 mg, trazodone 100 mg and Cymbalta 60 mg -Hold anticholinergics per Psych Patient with chronic history of schizophrenia. On admission patient presented with active hallucinations of seeing someone out to get her. No hallucinations over night (9) Nutrition, metabolism, and development symptoms Code(s): R63.8 - Other symptoms and signs concerning food and fluid intake Status: Acute Plan: Fluids: 100mls/hr Electrolytes: Replete as needed Nutrition: cardiac diet, continue to monitor po intake, supplement with ensure. Encouraged patient that she needed to increase p.o. intake in order to heal DVT prophylaxis: SCDs Continue to work with PT to get OOB <Saeed Greene - 10/21/17 08:47> - Assessment and Plan . <Saeed Greene - 10/21/17 08:53> - Attending Attestation Pt. examined independently and case discussed with resident physicians I have read the above note and agree with the assessment/plan as discussed with me I was involved in all medical decision making for this patient John Joseph MD <JakeJohn - 10/21/17 13:57> <Saeed Greene - Last Filed: 10/21/17 08:47> (6) Pneumonia Qualifiers: Pneumonia type: due to unspecified organism Laterality: left Lung location: lower lobe of lung Qualified Code(s): J18.1 - Lobar pneumonia, unspecified organism (7) Hypertension Qualifiers: Hypertension type: essential hypertension Qualified Code(s): I10 - Essential (primary) hypertension <John Joseph - Last Filed: 10/21/17 13:57> (6) Pneumonia Qualifiers: Pneumonia type: due to unspecified organism Laterality: left Lung location: lower lobe of lung Qualified Code(s): J18.1 - Lobar pneumonia, unspecified organism (7) Hypertension Qualifiers: Hypertension type: essential hypertension Qualified Code(s): I10 - Essential (primary) hypertension <Saeed Greene - Blas Filed: 10/21/17 08:47> (6) Pneumonia Qualifiers: Pneumonia type: due to unspecified organism Laterality: left Lung location: lower lobe of lung Qualified Code(s): J18.1 - Lobar pneumonia, unspecified organism (7) Hypertension Qualifiers: Hypertension type: essential hypertension Qualified Code(s): I10 - Essential (primary) hypertension <John Joseph - Last Filed: 10/21/17 13:57> (6) Pneumonia Qualifiers: Pneumonia type: due to unspecified organism Laterality: left Lung location: lower lobe of lung Qualified Code(s): J18.1 - Lobar pneumonia, unspecified organism (7) Hypertension Qualifiers: Hypertension type: essential hypertension Qualified Code(s): I10 - Essential (primary) hypertension
[2017-10-21] MEDS: Pantoprazole Sodium 20 MG DR Tablet PO SCH (09:09)
[2017-10-21] MEDS: Metoprolol Tartrate 25 MG Tablet PO SCH ×2 (09:09→21:28)
[2017-10-21] MEDS: Folic Acid 1 MG Tablet PO SCH (09:09)
[2017-10-21] MEDS: dilTIAZem 60 MG Tablet PO SCH ×3 (09:09→18:03)
[2017-10-21] MEDS: Duloxetine 60 MG DR Capsule PO SCH (09:10)
[2017-10-21] MEDS: traZODone 100 MG Tablet PO SCH (09:10)
[2017-10-21] MEDS: Heparin Central Flush 100 UNIT/ML 5 ML Vial IV.FLUSH SCH (09:10)
--- NOTE | 2017-10-21 12:37 | P.PNID ---
Subjective Remarks: ID coverage. Follow up. 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 Post op it appears she was discharged to a rehab. She was discharged from the rehab to home with her on August 23. Patient reports she lives at home with her who is on disability. Unsure of nature of disability at this time and his ability to take care of her. She was reportedly able to ambulate on her own initially followed by weakness and need for walker and then to a point where she did not want to get out of bed. It has been reported to others that she had some discharge at the left surgical site area and ortho surgeon prescribed oral keflex which reportedly lead to some improvement. She reportedly completed a week of antibiotic treatment with last day scheduled for today with some improvement in her knee pain. However her stated that she was starting to have more drainage from her knee just over the past day or so. He had pointed to several areas that had been draining pus from just above and just below the knee. He stated that a cup full of pus would drain at a time. Additionally the abdominal fold wounds appear to have been present for atleast 3 weeks now. Additionally patient has a psychiatric history and is on medications such as Cymbalta and Abilify. She actively hallucinates per dw resident team and psych would like to resume her meds that are on hold due to severe neutropenia. With this background patient presents to the ED with complaints of worsening shortness of breath and mental status accompanied with symptoms of diarrhea (3 days, non-bloody) and decreased p.o. intake (5 days). She was also brought into the hospital due to infection of her knee that improved with Keflex p.o but now has returned with new additional drainage over the past few days. ID consulted for evaluation and Mment of Left knee prosthetic joint infection and neutropenia. Called to see patient for additional recommendations. Patient underwent incision and debridement of the inferior abdominal wall and proximal inner thighs on 10/12/2017. Receiving IV antibiotics for left knee infection. A CT scan was obtained yesterday evening and it showed small joint effusion and subcutaneous edema of the fat at the left knee. Patient reports that she had pain 10/10 scale in the left knee. She fell on the way to the bathroom 10/19/17. She now has an opening at the incision of the left knee which started draining purulent material - now scant. Culture has no growth. She has loose stools. Rectal bag. Stool c. diff positive. Have little purulent drainage from the left knee incision on dressing. Denies nausea vomiting. Denies chills. The white blood cell count remain elevated but is slightly lower. Received Neupogen. Stopped 09/30. No fever. Antibiotics: Cefepime Vancomycin PO. Allergies/Adverse Reactions: Allergies amoxicillin Allergy (Verified 09/27/17 17:54) Swelling Objective Vital Signs 10/20/17 16:00 10/20/17 20:00 10/21/17 00:00 Temperature 97.9 F 97.7 F 97.6 F Pulse Rate 84 100 H 95 H Respiratory Rate 18 18 18 Blood Pressure 125/58 L 125/67 127/75 Pulse Oximetry 98 97 97 10/21/17 04:00 10/21/17 08:00 Temperature 97.6 F 98.1 F Pulse Rate 107 H Respiratory Rate 18 Blood Pressure 156/88 H 155/111 H Pulse Oximetry 97 96 Intake & Output 10/20/17 10/21/17 10/21/17 18:59 06:59 18:59 Intake Total 1200 / 1200 1200 / 1200 Output Total 630 / 630 800 / 800 Balance 570 / 570 400 / 400 Weight 107.5 kg Intake: IV 1200 / 1200 1200 / 1200 NS Inj 1,000 ML @ 100 mls/hr IV 1000 / 1000 1000 / 1000 .CONT .Q10H [facility] Rx#:[id number] Maxipime Inj 2,000 MG In NS Inj 200 / 200 200 / 200 100 ML @ 200 mls/hr IV.SIG Q8H [facility] Rx#:[id number] Output: Urine 600 / 600 800 / 800 Wound Drainage 30 / 30 ZAMZAM Drain 30 / 30 Other: Date of Last Bowel Movement 10/20/17 10/20/17 # Incontinent Bowel Movements 2 1 10/19/17 13:50 Wound - Knee Gram Stain - Final 10/19/17 13:50 Wound - Knee Wound Culture - Preliminary No growth in 48 hours Lab - Hematology Results 10/20/17 10/21/17 07:30 06:20 WBC 25.3 H 21.4 H RBC 2.90 L 2.74 L Hgb 8.0 L 7.6 L Hct 23.9 L 22.6 L MCV 82.6 82.5 MCH 27.8 27.8 MCHC 33.6 33.7 RDW 17.0 16.8 Plt Count 372 356 MPV 7.0 6.9 L Neut % (Auto) 89.7 H 88.5 H Lymph % (Auto) 4.7 L 5.2 L Scott % (Auto) 5.0 5.5 Eos % (Auto) 0.2 0.4 Baso % (Auto) 0.4 0.4 Neut # (Auto) 22.7 H 19.0 H Lymph # (Auto) 1.2 1.1 Scott # (Auto) 1.3 H 1.2 H Eos # (Auto) 0.1 0.1 Baso # (Auto) 0.1 0.1 WBC Differential . . Differential Comment Auto diff final Auto diff final Lab - Chemistry Results 10/20/17 10/21/17 07:30 06:20 Sodium 139 142 Potassium 3.0 L D 3.0 L Chloride 105 109 H Carbon Dioxide 26.4 27.4 Anion Gap 8 6 BUN 6 L 7 Creatinine 0.52 0.43 L Estimated GFR Greater than 89 Greater than 89 Random Glucose 74 62 L Calcium 7.9 L 7.5 L Imaging: ITS Impressions Tibia/Fibula X-Ray 09/27/17 00:00 CONCLUSION: No acute left leg abnormality is identified. Abdomen/Pelvis CT 09/27/17 08:10 CONCLUSION: 1. Mild hepatic steatosis. 2. Thickening of the colon secondary to lack of distention versus colitis. 3. Left lower lobe consolidation and/or atelectasis. There does appear to be a 1.4 cm cavitary area which makes consolidation likely. Head CT 09/27/17 08:10 CONCLUSION: No acute intracranial abnormality is seen. Chest CTA 09/27/17 08:22 CONCLUSION: 1. No pulmonary embolus. 2. Consolidation or atelectasis at the left lower lobe. Venous Doppler Study 09/29/17 00:00 CONCLUSION: No evidence of deep venous thrombosis. Chest X-Ray 10/09/17 16:08 CONCLUSION: 1. Apparent right internal jugular central venous line with the tip projected near the base of the right neck. There is no pneumothorax. 2. Right-sided PICC line now noted. Knee CT 10/18/17 00:00 CONCLUSION: 1. Small joint effusion. 2. Nonspecific subcutaneous edema in the subcutaneous soft tissues above and below the knee. 3. No significant changes compared to the prior exam. Ankle X-Ray 10/19/17 00:00 CONCLUSION: 1. No acute fracture or dislocation. Knee X-Ray 10/19/17 00:00 CONCLUSION: 1. Total knee prosthesis in place. 2. Moderate-sized knee joint effusion. Physical Exam: GENERAL: Alert and oriented, no acute distress. HEENT: Pupils reactive to light. Extraocular movements intact. No icterus. NECK: Supple without adenopathy. No swelling. LUNGS: Decreased breath sounds. HEART: Regular S1 and S2 without murmurs or rubs or gallops. ABDOMEN: Obese, soft. Nontender. Postoperative abdominal incisions with nedra in place along the thighs and inferior abdomen wall. ZAMZAM in abdominal wound bed has little serous drainage. EXTREMITIES: swelling of the left knee. less warmth. Tiny ulceration couple millimeters at the knee surgical incision. Purulent drainage on noted 10/19, now scant drainage. SKIN: No diffuse rash. NEUROLOGIC: Awake and alert and oriented. Nonfocal. PSYCH: Pleasant, calm and cooperative. Assessment and Plan - Plan IMPRESSION: Neutropenic sepsis WBC now elevated. Receive Neupogen but the white blood cell count did not plateau is continuing to rise. Possibly secondary to infection. Leucopenia, pancytopenia: ? MTX, ? Psych meds, ? Sepsis contributing. Abdominal fold cellulitis/skin breakdown. Post incision and debridement and closure of skin fold. Groin cellulitis, Mons pubis cellulitis/skin breakdown. H/o fall with scraping of left knee. Left knee hardware in place. CT with fluid collection. Left knee infection - prior wound culture had Pseudomonas and group B beta strep. Recurrent purulent drainage from the incision. Repeat wound culture pending. Dysphagia: mucositis. Concern for Susy Esophagitis Diarrhea - Positive C. difficile. RECOMMENDATIONS: Continue Cefepime IV to complete 6 weeks until November 08, 2017. Continue Vancomycin for C. difficile treat until completion of cefepime. Monitor knee wound culture. If negative at 72 hours she can be discharged to complete antibiotics outpatient.
[2017-10-21 17:11] LABS: Hematocrit 24.2 % (35.0-46.0); Hemoglobin 8.6 gm/dL (11.6-15.3)
[2017-10-22 06:25] LABS: Hematocrit 22.2 % (35.0-46.0); Hemoglobin 7.4 gm/dL (11.6-15.3); Mean Corpuscular HGB Conc 33.4 % (32.0-36.0); Mean Corpuscular Hemoglobin 27.2 pg (27.0-34.0); Mean Corpuscular Volume 81.6 fL (80.0-100.0); Platelet Count 385 th/mm3 (150-450); Red Blood Count 2.72 mil/mm3 (4.00-5.30); Red Cell Distribution Width 16.7 % (11.6-17.2); White Blood Count 22.4 th/mm3 (4.0-11.0)
[2017-10-22 07:06] LABS: Anion Gap 6 meq/L (5-15); Blood Urea Nitrogen 7 mg/dL (7-18); Calcium 7.4 mg/dL (8.5-10.1); Carbon Dioxide 25.7 meq/L (21.0-32.0); Chloride 108 meq/L (98-107); Glomerular Filtration Rate Greater Than 89 mL/min (>89); Glucose,Random 82 mg/dL (74-106); Potassium 3.3 meq/L (3.5-5.1); Sodium 140 meq/L (136-145)
[2017-10-22 07:26] LABS: Total Protein 4.5 g/dL (6.4-8.2)
[2017-10-22 07:48] LABS: Lymphocytes 6 % (9-44); Monocytes 2 % (0-8); Toxic Vacuolation Present
[2017-10-22 07:49] LABS: Target Cells 1+
[2017-10-22 07:50] LABS: Hypersegmented Neutrophils 1+; Platelet Estimate Normal (Normal); Platelet Morphology Normal (Normal)
--- NOTE | 2017-10-22 11:08 | P.PNFP ---
Subjective Interval history: Ms Mcclain had no overnight events. Her rectal tube was replaced yesterday. She reports continued diarrhea and abdominal pain, when asked where she responds "yes". <Patsy Baxter - 10/22/17 11:08> Results - Labs Result diagrams: 10/22/17 06:10 10/22/17 06:10 <John Joseph - 10/22/17 16:18> Abnormal lab results 10/21/17 10/22/17 10/22/17 Range/Units 17:00 06:10 06:10 WBC 22.4 H (4.0-11.0) th/mm3 RBC 2.72 L (4.00-5.30) mil/mm3 Hgb 8.6 L 7.4 L (11.6-15.3) gm/dL Hct 24.2 L 22.2 L (35.0-46.0) % Seg Neuts % (Manual) 91 H (16-70) % Lymphocytes % (Manual) 6 L (9-44) % Abs Neuts (Manual) 20.6 H (1.8-7.7) th/mm3 Hypersegmented Neuts 1+ H (None) Toxic Vacuolation Present H (None) Target Cells 1+ H (None) Potassium 3.3 L (3.5-5.1) meq/L Chloride 108 H (98-107) meq/L Calcium 7.4 L* (8.5-10.1) mg/dL Total Protein 4.5 L (6.4-8.2) g/dL Short CBC 10/21/17 10/22/17 Range/Units 17:00 06:10 WBC 22.4 H (4.0-11.0) th/mm3 Hgb 8.6 L 7.4 L (11.6-15.3) gm/dL Hct 24.2 L 22.2 L (35.0-46.0) % Plt Count 385 (150-450) th/mm3 BMP 10/22/17 06:10 Sodium 140 Potassium 3.3 L Chloride 108 H Carbon Dioxide 25.7 BUN 7 Creatinine 0.50 Calcium 7.4 L* <John Joseph - 10/22/17 16:18> Abnormal lab results 10/21/17 10/22/17 10/22/17 Range/Units 17:00 06:10 06:10 WBC 22.4 H (4.0-11.0) th/mm3 RBC 2.72 L (4.00-5.30) mil/mm3 Hgb 8.6 L 7.4 L (11.6-15.3) gm/dL Hct 24.2 L 22.2 L (35.0-46.0) % Seg Neuts % (Manual) 91 H (16-70) % Lymphocytes % (Manual) 6 L (9-44) % Abs Neuts (Manual) 20.6 H (1.8-7.7) th/mm3 Hypersegmented Neuts 1+ H (None) Toxic Vacuolation Present H (None) Target Cells 1+ H (None) Potassium 3.3 L (3.5-5.1) meq/L Chloride 108 H (98-107) meq/L Calcium 7.4 L* (8.5-10.1) mg/dL Total Protein 4.5 L (6.4-8.2) g/dL Short CBC 10/21/17 10/22/17 Range/Units 17:00 06:10 WBC 22.4 H (4.0-11.0) th/mm3 Hgb 8.6 L 7.4 L (11.6-15.3) gm/dL Hct 24.2 L 22.2 L (35.0-46.0) % Plt Count 385 (150-450) th/mm3 BMP 10/22/17 06:10 Sodium 140 Potassium 3.3 L Chloride 108 H Carbon Dioxide 25.7 BUN 7 Creatinine 0.50 Calcium 7.4 L* <Patsy Baxter - 10/22/17 11:08> Physical Exam Vital signs: Vital Signs 10/21/17 20:00 10/22/17 00:00 10/22/17 04:00 Temperature 97.6 F 98.2 F 98.6 F Pulse Rate 120 H 96 H 105 H Respiratory Rate 18 16 16 Blood Pressure 143/72 H 142/60 H 110/57 L Pulse Oximetry 97 98 98 10/22/17 08:00 10/22/17 12:00 Temperature 98.5 F 97.9 F Pulse Rate 115 H 111 H Respiratory Rate 16 18 Blood Pressure 139/77 122/73 Pulse Oximetry 98 99 Intake & Output 10/21/17 10/22/1710/22/18 18:59 06:59 18:59 Intake Total 1200 / 1200 1200 / 1200 1000 / 1000 Output Total 30 / 30 Balance 1200 / 1200 1200 / 1200 970 / 970 Weight 107.3 kg Intake: IV 1200 / 1200 1200 / 1200 1000 / 1000 NS Inj 1,000 ML @ 100 mls/hr IV 1000 / 1000 1000 / 1000 1000 / 1000 .CONT .Q10H [facility] Rx#:[id number] Maxipime Inj 2,000 MG In NS Inj 100 / 100 200 / 200 100 ML @ 200 mls/hr IV.SIG Q8H [facility] Rx#:[id number] KCl 20 mEq Premix Inj 20 meq In 100 / 100 100 ml @ 50 mls/hr IV.SIG ONCE ONE Rx#:[id number] Output: Wound Drainage 30 / 30 ZAMZAM Drain 30 Other: Date of Last Bowel Movement 10/21/17 # Bowel Movements 1 <John Joseph - 10/22/17 16:18> Vital Signs 10/21/17 12:00 10/21/17 16:00 10/21/17 20:00 Temperature 97.8 F 98.3 F 97.6 F Pulse Rate 94 H 125 H 120 H Respiratory Rate 18 18 18 Blood Pressure 133/74 138/86 143/72 H Pulse Oximetry 97 97 97 10/22/17 00:00 10/22/17 04:00 Temperature 98.2 F 98.6 F Pulse Rate 96 H 105 H Respiratory Rate 16 16 Blood Pressure 142/60 H 110/57 L Pulse Oximetry 98 98 Intake & Output 10/21/17 10/22/17 10/22/17 18:59 06:59 18:59 Intake Total 1200 / 1200 1200 / 1200 Output Total 30 / 30 Balance 1200 / 1200 1200 / 1200 -30 / -30 Weight 107.3 kg Intake: IV 1200 / 1200 1200 / 1200 NS Inj 1,000 ML @ 100 mls/hr IV 1000 / 1000 1000 / 1000 .CONT .Q10H [facility] Rx#:[id number] Maxipime Inj 2,000 MG In NS Inj 100 / 100 200 / 200 100 ML @ 200 mls/hr IV.SIG Q8H [facility] Rx#:[id number] KCl 20 mEq Premix Inj 20 meq In 100 / 100 100 ml @ 50 mls/hr IV.SIG ONCE ONE Rx#:[id number] Output: Wound Drainage 30 / 30 ZAMZAM Drain Other: Date of Last Bowel Movement 10/21/17 # Bowel Movements 1 <Patsy Baxter - 10/22/17 11:08> Narrative: GENERAL: Obese female laying in bed, no acute distress SKIN: Abdominal drainage tube in place with serosanguineous fluid. Dehiscence of left thigh incision. Skin breakdown on right thigh/lower abdomen. Skin opening in left knee inferior to the patella. CARDIOVASCULAR: Mild tachycardia. Regular rhythm without murmurs, gallops, or rubs. RESPIRATORY: Decreased breath sounds in bases bilaterally, improved with increased patient effort. No accessory muscle use. No wheezing. GASTROINTESTINAL: Tender upon elevation of pannus. Abdomen soft, nondistended. Normoactive bowel sounds. Rectal tube removed EXTREMITIES: Skin of L lower leg peeling from knee to ankle, improved erythema. Left knee swelling, mildly tender to palpation. L pedal edema 1+. Trace R pedal edema. : Hopper catheter in place, light yellow fluid in bag. <Patsy Baxter 10/22/17 11:08> - Urinary Catheter Management Indwelling Urethral Catheter Cath placed during this visit: no <John Joseph - 10/22/17 16:18> yes, but has since been removed by the nurse <Patsy Baxter - 10/22/17 11:26> Reason for continuing: Severe pressure ulcer/wound <Patsy Baxter 10/22/17 11:08> Insertion date: 09/27/17 <Patsy Baxter 10/22/17 11:08> Insertion time: 08:20 <Patsy Baxter 10/22/17 11:08> Removal date: 10/05/17 <Patsy Baxter 10/22/17 11:08> Removal time: 17:30 <Patsy Baxter 10/22/17 11:08> Assessment and Plan - Assessment (1) Cellulitis of knee, left Code(s): L03.116 - Cellulitis of left lower limb Status: Acute (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 difficile diarrhea Code(s): A04.72 - Enterocolitis due to Clostridium difficile, not specified as recurrent Status: Acute (4) Fall Code(s): W19.XXXA - Unspecified fall, initial encounter Status: Acute (5) Fungal infection of skin of abdomen Code(s): B36.9 - Superficial mycosis, unspecified Status: Acute (6) Pneumonia Code(s): J18.9 - Pneumonia, unspecified organism Status: Resolved (7) Hypertension Code(s): I10 - Essential (primary) hypertension Status: Acute (8) Schizophrenia Code(s): F20.9 - Schizophrenia, unspecified Status: Chronic (9) Nutrition, metabolism, and development symptoms Code(s): R63.8 - Other symptoms and signs concerning food and fluid intake Status: Acute <JakeJohn - 10/22/17 16:18> (1) Cellulitis of knee, left Code(s): L03.116 - Cellulitis of left lower limb Status: Acute Plan: -ID consulted- recommend Cefepime IV until 11/08, vancomycin for cdiff -CT knee report unchanged, small effusion History: -levaquin stopped 10/20 per ID -Diflucan course completed 10/18 -s/p 2 weeks of Keflex 500mg po. evaluated by ortho with no changes to management recommended. Knee looks improved from reported exam on admission. Minimal swelling. No erythema. Non tender to palpation. Patient has been OOB with assistance S/p PICC line placement. No signs of infection at PICC line (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 - Infection and inflammatory reaction due to unspecified internal joint prosthesis, initial encounter Status: Suspected Plan: - New opening of skin post fall, increased draining of purulent fluid -Culture of wound taken by ID. [id number], cleared from ID standpoint to go home with IV abs -Orthopedics ([place] for Dr. 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 She completed rehabilitation and was discharged home August 23. Patient was on approximately 2 weeks of po Keflex 500 mg. Per Ortho, examination of left knee shows no evidence of infection. (3) C. difficile diarrhea Code(s): A04.72 - Enterocolitis due to Clostridium difficile, not specified as recurrent Status: Acute Plan: -C diff cultures positive, likely cause of leukocytosis -Vancomycin PO 125 4 times daily -Continue with probiotics. -rectal tube replaced yesterday History: On admission patient presented with 3-day history of diarrhea in the setting of recent antibiotics. All bowel regimens held. Patient C. difficile negative on admission. (4) Fall Code(s): W19.XXXA - Unspecified fall, initial encounter Status: Acute Plan: Fell 10/19/17. No loss of consciousness, no head injury, left knee and ankle pain. -Knee x-ray- prosthesis in place, no frx noted -ankle x-ray- no frx noted (5) Fungal infection of skin of abdomen Code(s): B36.9 - Superficial mycosis, unspecified Status: Acute Plan: -Continue current course of antibiotics -Repeat CBC in a.m. History: Surgical procedure 10/09, wound VAC applied. VAC changed 10/12 removed 10/15. (6) Pneumonia Code(s): J18.9 - Pneumonia, unspecified organism Status: Resolved Plan: Currently without symptoms of pneumonia -Continue to monitor vital signs -Continue incentive spirometry History: Patient found to have left lower lobe consolidation on chest CTA. Lungs CTAB today. She remains afebrile, with O2 sat WNL on room air. (7) Hypertension Code(s): I10 - Essential (primary) hypertension Status: Acute Plan: History of hypertension -continue to monitor (8) Schizophrenia Code(s): F20.9 - Schizophrenia, unspecified Status: Chronic Plan: -Psych consulted- recommend Continue Abilify 30 mg for psychosis, okay to continue buspirone 30 mg, trazodone 100 mg and Cymbalta 60 mg -Hold anticholinergics per Psych Patient with chronic history of schizophrenia. On admission patient presented with active hallucinations of seeing someone out to get her. No hallucinations over night (9) Nutrition, metabolism, and development symptoms Code(s): R63.8 - Other symptoms and signs concerning food and fluid intake Status: Acute Plan: Fluids: 100mls/hr Electrolytes: Replete as needed Nutrition: cardiac diet, continue to monitor po intake, supplement with ensure. Encouraged patient that she needed to increase p.o. intake in order to heal DVT prophylaxis: SCDs Continue to work with PT to get OOB <Patsy Baxter - 10/22/17 11:26> - Assessment and Plan . <Patsy Baxter - 10/22/17 11:08> Discussed Condition With: Dirk Joseph and Nilson <Patsy Baxter - 10/22/17 11:08> - Attending Attestation Patient examined independently and case discussed with resident physicians I have read the above note and agree with the assessment/plan as discussed with me I was involved in all medical decision making for this patient John Joseph MD <John Joseph - 10/22/17 16:18> <Patsy Baxter E - Last Filed: 10/22/17 11:26> (6) Pneumonia Qualifiers: Pneumonia type: due to unspecified organism Laterality: left Lung location: lower lobe of lung Qualified Code(s): J18.1 - Lobar pneumonia, unspecified organism (7) Hypertension Qualifiers: Hypertension type: essential hypertension Qualified Code(s): I10 - Essential (primary) hypertension <John Joseph - Last Filed: 10/22/17 16:18> (6) Pneumonia Qualifiers: Pneumonia type: due to unspecified organism Laterality: left Lung location: lower lobe of lung Qualified Code(s): J18.1 - Lobar pneumonia, unspecified organism (7) Hypertension Qualifiers: Hypertension type: essential hypertension Qualified Code(s): I10 - Essential (primary) hypertension <Patsy Baxter - Last Filed: 10/22/17 11:26> (6) Pneumonia Qualifiers: Pneumonia type: due to unspecified organism Laterality: left Lung location: lower lobe of lung Qualified Code(s): J18.1 - Lobar pneumonia, unspecified organism (7) Hypertension Qualifiers: Hypertension type: essential hypertension Qualified Code(s): I10 - Essential (primary) hypertension <John Joseph - Last Filed: 10/22/17 16:18> (6) Pneumonia Qualifiers: Pneumonia type: due to unspecified organism Laterality: left Lung location: lower lobe of lung Qualified Code(s): J18.1 - Lobar pneumonia, unspecified organism (7) Hypertension Qualifiers: Hypertension type: essential hypertension Qualified Code(s): I10 - Essential (primary) hypertension
[2017-10-22] MEDS: Sod Chloride 0.9% Inj 1,000 ML IV.CONT SCH (11:09)
[2017-10-22] MEDS: Duloxetine 60 MG DR Capsule PO SCH (11:11)
[2017-10-22] MEDS: Metoprolol Tartrate 25 MG Tablet PO SCH ×2 (11:11→22:52)
[2017-10-22] MEDS: Pantoprazole Sodium 20 MG DR Tablet PO SCH (11:11)
[2017-10-22] MEDS: Folic Acid 1 MG Tablet PO SCH (11:13)
[2017-10-22] MEDS: traZODone 100 MG Tablet PO SCH (11:13)
[2017-10-22] MEDS: dilTIAZem 60 MG Tablet PO SCH ×3 (11:13→17:35)
[2017-10-22] MEDS: Heparin Central Flush 100 UNIT/ML 5 ML Vial IV.FLUSH SCH (11:14)
--- NOTE | 2017-10-22 13:09 | P.PNGS ---
<Tiana Curran - Last Filed: 10/22/17 13:07> Subjective Interval history: Remains confused; watching TV Physical Exam Vital signs: Vital Signs 10/21/17 16:00 10/21/17 20:00 10/22/17 00:00 Temperature 98.3 F 97.6 F 98.2 F Pulse Rate 125 H 120 H 96 H Respiratory Rate 18 18 16 Blood Pressure 138/86 143/72 H 142/60 H Pulse Oximetry 97 97 98 10/22/17 04:00 Temperature 98.6 F Pulse Rate 105 H Respiratory Rate 16 Blood Pressure 110/57 L Pulse Oximetry 98 Intake & Output 10/21/17 10/22/17 10/22/17 18:59 06:59 18:59 Intake Total 1200 / 1200 1200 / 1200 1000 / 1000 Output Total 30 / 30 Balance 1200 / 1200 1200 / 1200 970 / 970 Weight 107.3 kg Intake: IV 1200 / 1200 1200 / 1200 1000 / 1000 NS Inj 1,000 ML @ 100 mls/hr IV 1000 / 1000 1000 / 1000 1000 / 1000 .CONT .Q10H [facility] Rx#:[id number] Maxipime Inj 2,000 MG In NS Inj 100 / 100 200 / 200 100 ML @ 200 mls/hr IV.SIG Q8H [facility] Rx#:[id number] KCl 20 mEq Premix Inj 20 meq In 100 / 100 100 ml @ 50 mls/hr IV.SIG ONCE ONE Rx#:[id number] Output: Wound Drainage 30 / 30 ZAMZAM Drain 30 / 30 Other: Date of Last Bowel Movement 10/21/17 # Bowel Movements 1 Narrative: Alert; awake; not oriented Cardio: RRR Resp: CTAB Abd: large incision --- Maxorb dressings removed; placed new Maxorb dressings over incision into folds of skin; Open area in the LEFT medial thigh---placed wet to dry dressings; secures loosely with tape Ext: + edema Hopper and rectal bag in place - Urinary Catheter Management Indwelling Urethral Catheter Cath placed during this visit: yes, but has since been removed by the nurse Reason for continuing: Severe pressure ulcer/wound Insertion date: 09/27/17 Insertion time: 08:20 Removal date: 10/05/17 Removal time: 17:30 Assessment and Plan - Plan 51 year old female s/p I&D of abdominal/thigh wounds -Continue Maxorb dressings due to moistness; pack open area of LEFT medial thigh with wet to dry dressings -Continue ZAMZAM -Diet as tolerated -FM team following -Now with Cdiff -Will likely need rehab placement -GS will continue to follow peripherally <Jose Schneider S - Last Filed: 10/23/17 22:07> Physical Exam Vital signs: Vital Signs 10/23/17 00:40 10/23/17 05:45 10/23/17 07:00 Temperature 97.9 F 98.8 F Pulse Rate 80 88 Respiratory Rate 18 19 12 Blood Pressure 122/84 130/80 Pulse Oximetry 97 96 10/23/17 08:00 10/23/17 09:00 10/23/17 12:00 Temperature 97.8 F Pulse Rate 98 H 108 H Respiratory Rate 12 20 Blood Pressure 146/80 H 136/71 Pulse Oximetry 98 98 99 10/23/17 13:00 10/23/17 15:35 10/23/17 16:00 Temperature 98.3 F Pulse Rate 125 H Respiratory Rate 12 12 20 Blood Pressure 145/75 H Pulse Oximetry 98 10/23/17 17:11 Temperature 98.9 F Pulse Rate 74 Respiratory Rate 20 Blood Pressure 110/60 Pulse Oximetry 99 Intake & Output 10/23/17 10/23/17 10/24/17 06:59 18:59 06:59 Intake Total 2325 / 2325 1240 / 1240 1100 / 1100 Output Total 1630 / 1630 551 / 551 Balance 695 / 695 689 / 689 1100 / 1100 Weight 107.5 kg Intake: IV 1300 / 1300 1000 / 1000 1100 / 1100 NS Inj 1,000 ML @ 100 mls/hr IV 1000 / 1000 1000 / 1000 1000 / 1000 .CONT .Q10H [facility] Rx#:[id number] Maxipime Inj 2,000 MG In NS Inj 300 / 300 100 / 100 100 ML @ 200 mls/hr IV.SIG Q8H [facility] Rx#:[id number] Oral 1025 / 1025 240 / 240 Output: Stool 500 / 500 1 / 1 Urine Amount (Catheter) 1100 / 1100 550 / 550 Indwelling Urethral Catheter 1100 / 1100 550 / 550 Wound Drainage 30 / 30 ZAMZAM Drain 30 / Other: Date of Last Bowel Movement 10/23/17 - Urinary Catheter Management Indwelling Urethral Catheter Cath placed during this visit: no Assessment and Plan - Plan s/p I and D path pending tx for c diff keep wounds clear of stool follow prn - Attending Attestation The exam, history, and the medical decision-making described in the above note were completed with the assistance of the mid-level provider. I reviewed and agree with the findings presented. I attest that I had a [id number] encounter with the patient on the same day, and personally performed and documented my assessment and findings in the medical record.
[2017-10-23] MEDS: Sod Chloride 0.9% Inj 1,000 ML IV.CONT SCH ×6 (00:19→20:49)
[2017-10-23] MEDS: Morphine Sulfate Inj 2 MG/ML Vial IV.PUSH PRN (01:51)
[2017-10-23 06:40] LABS: Hemoglobin 7.6 gm/dL (11.6-15.3); Mean Corpuscular Volume 81.8 fL (80.0-100.0); Mean Platelet Volume 6.9 fL (7.0-11.0); Platelet Count 405 th/mm3 (150-450); Red Blood Count 2.81 mil/mm3 (4.00-5.30); Red Cell Distribution Width 16.6 % (11.6-17.2); White Blood Count 21.2 th/mm3 (4.0-11.0)
[2017-10-23 07:00] LABS: Anion Gap 7 meq/L (5-15); Blood Urea Nitrogen 7 mg/dL (7-18); Calcium 7.8 mg/dL (8.5-10.1); Carbon Dioxide 23.9 meq/L (21.0-32.0); Chloride 112 meq/L (98-107); Glomerular Filtration Rate Greater Than 89 mL/min (>89); Glucose,Random 83 mg/dL (74-106); Potassium 3.6 meq/L (3.5-5.1); Sodium 143 meq/L (136-145)
[2017-10-23 08:13] LABS: Eosinophils 2 % (0-4); Lymphocytes 2 % (9-44); Monocytes 2 % (0-8); Toxic Vacuolation Present
[2017-10-23 08:14] LABS: Platelet Estimate Normal (Normal); Platelet Morphology Normal (Normal)
[2017-10-23 08:15] LABS: Hypersegmented Neutrophils 1+; Target Cells 1+
[2017-10-23] MEDS: traZODone 100 MG Tablet PO SCH (10:08)
[2017-10-23] MEDS: dilTIAZem 60 MG Tablet PO SCH ×3 (10:08→18:00)
[2017-10-23] MEDS: Metoprolol Tartrate 25 MG Tablet PO SCH ×2 (10:08→20:52)
[2017-10-23] MEDS: Duloxetine 60 MG DR Capsule PO SCH (10:09)
[2017-10-23] MEDS: Folic Acid 1 MG Tablet PO SCH (10:09)
[2017-10-23] MEDS: Heparin Central Flush 100 UNIT/ML 5 ML Vial IV.FLUSH SCH (10:11)
[2017-10-23] MEDS: Pantoprazole Sodium 20 MG DR Tablet PO SCH (10:11)
--- NOTE | 2017-10-23 11:08 | P.PNFP ---
Subjective Interval history: This more seen on rounds today. She was very sleepy on exam similar to previous exams. She denies any acute issues. Denies chest pain, difficulty breathing, abdominal pain, diarrhea. <SahilPatsy Ellen - 10/23/17 11:08> Results - Labs Result diagrams: 10/23/17 06:20 10/23/17 06:22 <John Joseph - 10/23/17 16:53> Abnormal lab results 10/23/17 10/23/17 Range/Units 06:20 06:22 WBC 21.2 H (4.0-11.0) th/mm3 RBC 2.81 L (4.00-5.30) mil/mm3 Hgb 7.6 L (11.6-15.3) gm/dL Hct 23.0 L (35.0-46.0) % MPV 6.9 L (7.0-11.0) fL Seg Neuts % (Manual) 92 H (16-70) % Lymphocytes % (Manual) 2 L (9-44) % Abs Neuts (Manual) 19.9 H (1.8-7.7) th/mm3 Hypersegmented Neuts 1+ H (None) Toxic Vacuolation Present H (None) Target Cells 1+ H (None) Chloride 112 H (98-107) meq/L Creatinine 0.45 L (0.50-1.00) mg/dL Calcium 7.8 L (8.5-10.1) mg/dL Short CBC 10/23/17 Range/Units 06:20 WBC 21.2 H (4.0-11.0) th/mm3 Hgb 7.6 L (11.6-15.3) gm/dL Hct 23.0 L (35.0-46.0) % Plt Count 405 (150-450) th/mm3 BMP 10/23/17 06:22 Sodium 143 Potassium 3.6 Chloride 112 H Carbon Dioxide 23.9 BUN 7 Creatinine 0.45 L Calcium 7.8 L <John Joseph - 10/23/17 16:53> Abnormal lab results 10/23/17 10/23/17 Range/Units 06:20 06:22 WBC 21.2 H (4.0-11.0) th/mm3 RBC 2.81 L (4.00-5.30) mil/mm3 Hgb 7.6 L (11.6-15.3) gm/dL Hct 23.0 L (35.0-46.0) % MPV 6.9 L (7.0-11.0) fL Seg Neuts % (Manual) 92 H (16-70) % Lymphocytes % (Manual) 2 L (9-44) % Abs Neuts (Manual) 19.9 H (1.8-7.7) th/mm3 Hypersegmented Neuts 1+ H (None) Toxic Vacuolation Present H (None) Target Cells 1+ H (None) Chloride 112 H (98-107) meq/L Creatinine 0.45 L (0.50-1.00) mg/dL Calcium 7.8 L (8.5-10.1) mg/dL Short CBC 10/23/17 Range/Units 06:20 WBC 21.2 H (4.0-11.0) th/mm3 Hgb 7.6 L (11.6-15.3) gm/dL Hct 23.0 L (35.0-46.0) % Plt Count 405 (150-450) th/mm3 [facility] 10/23/17 06:22 Sodium 143 Potassium 3.6 Chloride 112 H Carbon Dioxide 23.9 BUN 7 Creatinine 0.45 L Calcium 7.8 L <Patsy Baxter - 10/23/17 11:08> Physical Exam Vital signs: Vital Signs 10/22/17 20:45 10/23/17 00:40 10/23/17 05:45 Temperature 98 F 97.9 F 98.8 F Pulse Rate 88 80 88 Respiratory Rate 17 18 19 Blood Pressure 125/80 122/84 130/80 Pulse Oximetry 96 97 96 10/23/17 07:00 10/23/17 08:00 10/23/17 09:00 Temperature Pulse Rate 98 H Respiratory Rate 12 12 Blood Pressure 146/80 H Pulse Oximetry 98 98 10/23/17 12:00 10/23/17 13:00 10/23/17 15:35 Temperature 97.8 F Pulse Rate 108 H Respiratory Rate 20 12 12 Blood Pressure 136/71 Pulse Oximetry 99 10/23/17 16:00 Temperature 98.3 F Pulse Rate 121 H Respiratory Rate 20 Blood Pressure 145/75 H Pulse Oximetry 98 Intake & Output 10/22/17 10/23/1718 18:59 06:59 18:59 Intake Total 1800 / 1800 2325 / 2325 1240 / 1240 Output Total 1240 / 1240 1630 / 1630 551 / 551 Balance 560 / 560 695 / 695 689 / 689 Weight 107.5 kg Intake: IV 1000 / 1000 1300 / 1300 1000 / 1000 NS Inj 1,000 ML @ 100 mls/hr IV 1000 / 1000 1000 / 1000 1000 / 1000 .CONT .Q10H [facility] Rx#:[id number] Maxipime Inj 2,000 MG In NS Inj 300 / 300 100 ML @ 200 mls/hr IV.SIG Q8H [facility] Rx#:[id number] Oral 800 / 800 1025 / 1025 240 / 240 Output: Stool 200 / 200 500 / 500 1 / 1 Urine Amount (Catheter) 1000 / 1000 1100 / 1100 550 / 550 Indwelling Urethral Catheter 1000 / 1000 1100 / 1100 550 / 550 Wound Drainage 40 / 40 30 / 30 ZAMZAM Drain 40 / 40 30 / 30 Other: Date of Last Bowel Movement 10/22/17 10/23/17 <John Joseph - 10/23/17 16:53> Vital Signs 10/22/17 12:00 10/22/17 16:00 10/22/17 20:45 Temperature 97.9 F 98.5 F 98 F Pulse Rate 105 H 108 H 88 Respiratory Rate 18 18 17 Blood Pressure 122/73 119/58 L 125/80 Pulse Oximetry 99 97 96 10/23/17 00:40 10/23/17 05:45 10/23/17 07:00 Temperature 97.9 F 98.8 F Pulse Rate 80 88 Respiratory Rate 18 19 12 Blood Pressure 122/84 130/80 Pulse Oximetry 97 96 10/23/17 08:00 Temperature Pulse Rate 98 H Respiratory Rate 20 Blood Pressure 146/80 H Pulse Oximetry 98 Intake & Output 10/22/17 10/23/17 10/23/17 18:59 06:59 18:59 Intake Total 1800 / 1800 2325 / 2325 1240 / 1240 Output Total 1240 / 1240 1630 / 1630 Balance 560 / 560 695 / 695 1240 / 1240 Weight 107.5 kg Intake: IV 1000 / 1000 1300 / 1300 1000 / 1000 NS Inj 1,000 ML @ 100 mls/hr IV 1000 / 1000 1000 / 1000 1000 / 1000 .CONT .Q10H [facility] Rx#:[id number] Maxipime Inj 2,000 MG In NS Inj 300 / 300 100 ML @ 200 mls/hr IV.SIG Q8H [facility] Rx#:[id number] Oral 800 / 800 1025 / 1025 240 / 240 Output: Stool 200 / 200 500 / 500 Urine Amount (Catheter) 1000 / 1000 1100 / 1100 Indwelling Urethral Catheter 1000 / 1000 1100 / 1100 Wound Drainage 40 / 40 30 / 30 ZAMZAM Drain 40 / 40 30 / 30 Other: Date of Last Bowel Movement 10/22/17 <Patsy Baxter 10/23/17 11:08> Narrative: GENERAL: Obese female laying in bed, no acute distress SKIN: Abdominal drainage tube in place with serosanguineous fluid. Dressing on abdominal incisions no excess drainage noted. Dehiscence of left thigh incision. Skin breakdown on right thigh/lower abdomen. Skin opening in left knee inferior to the patella. CARDIOVASCULAR: Mild tachycardia. Regular rhythm without murmurs, gallops, or rubs. RESPIRATORY: Decreased breath sounds in bases bilaterally. No accessory muscle use. No wheezing. GASTROINTESTINAL: Abdomen soft, nondistended, nontender. Normoactive bowel sounds. Rectal tube in place EXTREMITIES: Skin of L lower leg peeling from knee to ankle, improved erythema. Left knee swelling, non-tender to palpation. L pedal edema 1+. Trace R pedal edema. : Hopper catheter in place, light yellow fluid in bag. <Patsy Baxter 10/23/17 11:08> - Urinary Catheter Management Indwelling Urethral Catheter Cath placed during this visit: no <John Joseph - 10/23/17 16:53> yes, but has since been removed by the nurse <Patsy Baxter 10/23/17 11:08> Reason for continuing: Severe pressure ulcer/wound <Patsy Baxter 10/23/17 11:08> Insertion date: 09/27/17 <Patsy Baxter 10/23/17 11:08> Insertion time: 08:20 <Patsy Baxter 10/23/17 11:08> Removal date: 10/05/17 <Patsy Baxter 10/23/17 11:08> Removal time: 17:30 <Patsy Baxter/07/18 11:08> Assessment and Plan - Assessment (1) Cellulitis of knee, left Code(s): L03.116 - Cellulitis of left lower limb Status: Acute (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 difficile diarrhea Code(s): A04.72 - Enterocolitis due to Clostridium difficile, not specified as recurrent Status: Acute (4) Fall Code(s): W19.XXXA - Unspecified fall, initial encounter Status: Acute (5) Fungal infection of skin of abdomen Code(s): B36.9 - Superficial mycosis, unspecified Status: Acute (6) Pneumonia Code(s): J18.9 - Pneumonia, unspecified organism Status: Resolved (7) Hypertension Code(s): I10 - Essential (primary) hypertension Status: Acute (8) Schizophrenia Code(s): F20.9 - Schizophrenia, unspecified Status: Chronic (9) Nutrition, metabolism, and development symptoms Code(s): R63.8 - Other symptoms and signs concerning food and fluid intake Status: Acute <John Joseph - 10/23/17 16:53> (1) Cellulitis of knee, left Code(s): L03.116 - Cellulitis of left lower limb Status: Acute Plan: -ID consulted- recommend Cefepime IV until 11/08, vancomycin for cdiff -CT knee report unchanged, small effusion History: -levaquin stopped 10/20 per ID -Diflucan course completed 10/18 -s/p 2 weeks of Keflex 500mg po. evaluated by ortho with no changes to management recommended. Knee looks improved from reported exam on admission. Minimal swelling. No erythema. Non tender to palpation. Patient has been OOB with assistance S/p PICC line placement. No signs of infection at PICC line (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 - Infection and inflammatory reaction due to unspecified internal joint prosthesis, initial encounter Status: Suspected Plan: - New opening of skin post fall, increased draining of purulent fluid -Culture of wound taken by ID. [id number], cleared from ID standpoint to go home with IV abs -Orthopedics ([place] for Dr. 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 She completed rehabilitation and was discharged home August 23. Patient was on approximately 2 weeks of po Keflex 500 mg. Per Ortho, examination of left knee shows no evidence of infection. (3) C. difficile diarrhea Code(s): A04.72 - Enterocolitis due to Clostridium difficile, not specified as recurrent Status: Acute Plan: -C diff cultures positive, likely cause of leukocytosis -Vancomycin PO 125 4 times daily, day 4 of 10 -Continue with probiotics. -rectal tube replaced yesterday History: On admission patient presented with 3-day history of diarrhea in the setting of recent antibiotics. All bowel regimens held. Patient C. difficile negative on admission. (4) Fall Code(s): W19.XXXA - Unspecified fall, initial encounter Status: Acute Plan: Fell 10/19/17. No loss of consciousness, no head injury, left knee and ankle pain. -Knee x-ray- prosthesis in place, no frx noted -ankle x-ray- no frx noted (5) Fungal infection of skin of abdomen Code(s): B36.9 - Superficial mycosis, unspecified Status: Acute Plan: -Continue current course of antibiotics -Repeat CBC in a.m. -Will discuss with surgery today regarding when drain will be removed as patient is headed towards discharge to SNF History: Surgical procedure 10/09, wound VAC applied. VAC changed 10/12 removed 10/15. (6) Pneumonia Code(s): J18.9 - Pneumonia, unspecified organism Status: Resolved Plan: Currently without symptoms of pneumonia -Continue to monitor vital signs -Continue incentive spirometry History: Patient found to have left lower lobe consolidation on chest CTA. Lungs CTAB today. She remains afebrile, with O2 sat WNL on room air. (7) Hypertension Code(s): I10 - Essential (primary) hypertension Status: Acute Plan: History of hypertension -continue to monitor (8) Schizophrenia Code(s): F20.9 - Schizophrenia, unspecified Status: Chronic Plan: -Psych consulted- recommend Continue Abilify 30 mg for psychosis, okay to continue buspirone 30 mg, trazodone 100 mg and Cymbalta 60 mg -Hold anticholinergics per Psych Patient with chronic history of schizophrenia. On admission patient presented with active hallucinations of seeing someone out to get her. No hallucinations over night (9) Nutrition, metabolism, and development symptoms Code(s): R63.8 - Other symptoms and signs concerning food and fluid intake Status: Acute Plan: Fluids: 100mls/hr Electrolytes: Replete as needed Nutrition: cardiac diet, continue to monitor po intake, supplement with ensure. Encouraged patient that she needed to increase p.o. intake in order to heal DVT prophylaxis: SCDs Continue to work with PT to get OOB <Patsy Baxter - 10/23/17 11:03> - Assessment and Plan Discussed Condition With: Dr Joseph <Patsy Baxter - 10/23/17 11:08> - Attending Attestation Patient examined during medical rounds with the resident this morning I have read the above note and agree with the assessment/plan as discussed with me I was involved in all medical decision making for this patient John Joseph MD <John Joseph - 10/23/17 16:53> <Patsy Baxter E - Last Filed: 10/23/17 11:03> (6) Pneumonia Qualifiers: Pneumonia type: due to unspecified organism Laterality: left Lung location: lower lobe of lung Qualified Code(s): J18.1 - Lobar pneumonia, unspecified organism (7) Hypertension Qualifiers: Hypertension type: essential hypertension Qualified Code(s): I10 - Essential (primary) hypertension <John Joseph - Last Filed: 10/23/17 16:53> (6) Pneumonia Qualifiers: Pneumonia type: due to unspecified organism Laterality: left Lung location: lower lobe of lung Qualified Code(s): J18.1 - Lobar pneumonia, unspecified organism (7) Hypertension Qualifiers: Hypertension type: essential hypertension Qualified Code(s): I10 - Essential (primary) hypertension <Patsy Baxter - Last Filed: 10/23/17 11:03> (6) Pneumonia Qualifiers: Pneumonia type: due to unspecified organism Laterality: left Lung location: lower lobe of lung Qualified Code(s): J18.1 - Lobar pneumonia, unspecified organism (7) Hypertension Qualifiers: Hypertension type: essential hypertension Qualified Code(s): I10 - Essential (primary) hypertension <John Joseph - Last Filed: 10/23/17 16:53> (6) Pneumonia Qualifiers: Pneumonia type: due to unspecified organism Laterality: left Lung location: lower lobe of lung Qualified Code(s): J18.1 - Lobar pneumonia, unspecified organism (7) Hypertension Qualifiers: Hypertension type: essential hypertension Qualified Code(s): I10 - Essential (primary) hypertension
[2017-10-24 06:56] LABS: Hematocrit 23.8 % (35.0-46.0); Hemoglobin 7.9 gm/dL (11.6-15.3); Mean Corpuscular HGB Conc 33.3 % (32.0-36.0); Mean Corpuscular Hemoglobin 27.6 pg (27.0-34.0); Mean Corpuscular Volume 82.9 fL (80.0-100.0); Mean Platelet Volume 7.2 fL (7.0-11.0); Platelet Count 399 th/mm3 (150-450); Red Blood Count 2.87 mil/mm3 (4.00-5.30); Red Cell Distribution Width 16.6 % (11.6-17.2); White Blood Count 17.5 th/mm3 (4.0-11.0)
[2017-10-24] MEDS: Sod Chloride 0.9% Inj 1,000 ML IV.CONT SCH ×2 (07:15→18:40)
[2017-10-24] MEDS: Morphine Sulfate Inj 2 MG/ML Vial IV.PUSH PRN (07:16)
[2017-10-24 07:28] LABS: Anion Gap 7 meq/L (5-15); Blood Urea Nitrogen 7 mg/dL (7-18); Calcium 7.7 mg/dL (8.5-10.1); Carbon Dioxide 22.8 meq/L (21.0-32.0); Chloride 111 meq/L (98-107); Glomerular Filtration Rate Greater Than 89 mL/min (>89); Glucose,Random 65 mg/dL (74-106); Potassium 3.8 meq/L (3.5-5.1); Sodium 141 meq/L (136-145)
[2017-10-24] MEDS: Metoprolol Tartrate 25 MG Tablet PO SCH ×2 (09:54→22:35)
[2017-10-24] MEDS: Duloxetine 60 MG DR Capsule PO SCH (09:54)
[2017-10-24] MEDS: traZODone 100 MG Tablet PO SCH (09:55)
[2017-10-24] MEDS: dilTIAZem 60 MG Tablet PO SCH ×3 (09:55→17:45)
[2017-10-24] MEDS: Pantoprazole Sodium 20 MG DR Tablet PO SCH (09:55)
[2017-10-24] MEDS: Heparin Central Flush 100 UNIT/ML 5 ML Vial IV.FLUSH SCH (09:56)
[2017-10-24] MEDS: Folic Acid 1 MG Tablet PO SCH (09:56)
--- NOTE | 2017-10-24 10:59 | P.PNFP ---
Subjective Interval history: Patient seen and examined today. Denies nausea, vomiting, fever, chills abdominal pain, chest pain, shortness of breath. Denies pain around suture sites. No other complaints today. Patient not oriented to self, place, time. <Saeed Greene - 10/24/17 10:59> Results - Labs Result diagrams: 10/24/17 06:00 10/24/17 06:00 <John Joseph - 10/24/17 15:17> Abnormal lab results 10/24/17 10/24/17 Range/Units 06:00 06:00 WBC 17.5 H (4.0-11.0) th/mm3 RBC 2.87 L (4.00-5.30) mil/mm3 Hgb 7.9 L (11.6-15.3) gm/dL Hct 23.8 L (35.0-46.0) % Chloride 111 H (98-107) meq/L Creatinine 0.45 L (0.50-1.00) mg/dL Random Glucose 65 L (74-106) mg/dL Calcium 7.7 L (8.5-10.1) mg/dL Short CBC 10/24/17 Range/Units 06:00 WBC 17.5 H (4.0-11.0) th/mm3 Hgb 7.9 L (11.6-15.3) gm/dL Hct 23.8 L (35.0-46.0) % Plt Count 399 (150-450) th/mm3 BMP 10/24/17 06:00 Sodium 141 Potassium 3.8 Chloride 111 H Carbon Dioxide 22.8 BUN 7 Creatinine 0.45 L Calcium 7.7 L <John Joseph - 10/24/17 15:17> Abnormal lab results 10/24/17 10/24/17 Range/Units 06:00 06:00 WBC 17.5 H (4.0-11.0) th/mm3 RBC 2.87 L (4.00-5.30) mil/mm3 Hgb 7.9 L (11.6-15.3) gm/dL Hct 23.8 L (35.0-46.0) % Chloride 111 H (98-107) meq/L Creatinine 0.45 L (0.50-1.00) mg/dL Random Glucose 65 L (74-106) mg/dL Calcium 7.7 L (8.5-10.1) mg/dL Short CBC 10/24/17 Range/Units 06:00 WBC 17.5 H (4.0-11.0) th/mm3 Hgb 7.9 L (11.6-15.3) gm/dL Hct 23.8 L (35.0-46.0) % Plt Count 399 (150-450) th/mm3 BMP 10/24/17 06:00 Sodium 141 Potassium 3.8 Chloride 111 H Carbon Dioxide 22.8 BUN 7 Creatinine 0.45 L Calcium 7.7 L <Saeed Greene A - 10/24/17 10:59> Physical Exam Vital signs: Vital Signs 10/23/17 15:35 10/23/17 16:00 10/23/17 17:11 Temperature 98.3 F 98.9 F Pulse Rate 125 H 74 Respiratory Rate 12 20 20 Blood Pressure 145/75 H 110/60 Pulse Oximetry 98 99 10/23/17 20:30 10/23/17 21:00 10/24/17 00:50 Temperature 98.7 F 97.6 F Pulse Rate 69 66 Respiratory Rate 17 19 Blood Pressure 128/80 133/83 Pulse Oximetry 95 97 94 L 10/24/17 07:00 10/24/17 08:00 10/24/17 12:00 Temperature 98.8 F 97.8 F 98.1 F Pulse Rate 89 113 H 124 H Respiratory Rate 17 19 18 Blood Pressure 134/80 138/79 128/75 Pulse Oximetry 95 96 97 Intake & Output 10/23/17 10/24/17 10/24/17 18:59 06:59 18:59 Intake Total 1240 / 1240 1900 / 1900 1650 / 1650 Output Total 551 / 551 1100 / 1100 2800 / 2800 Balance 689 / 689 800 / 800 -1150 / -1150 Weight 107.5 kg Intake: IV 1000 / 1000 1200 / 1200 1100 / 1100 NS Inj 1,000 ML @ 100 mls/hr IV 1000 / 1000 1000 / 1000 1000 / 1000 .CONT .Q10H [facility] Rx#:[id number] Maxipime Inj 2,000 MG In NS Inj 200 / 200 100 / 100 100 ML @ 200 mls/hr IV.SIG Q8H [facility] Rx#:[id number] Oral 240 / 240 700 / 700 550 / 550 Output: Stool / 700 / 700 1000 / 1000 Urine Amount (Catheter) 550 / 550 400 / 400 1800 / 1800 Indwelling Urethral Catheter 550 / 550 400 / 400 1800 / 1800 Other: Date of Last Bowel Movement 10/23/17 10/24/17 <John Joseph - 10/24/17 15:17> Vital Signs 10/23/17 12:00 10/23/17 13:00 10/23/17 15:35 Temperature 97.8 F Pulse Rate 108 H Respiratory Rate 20 12 12 Blood Pressure 136/71 Pulse Oximetry 99 10/23/17 16:00 10/23/17 17:11 10/23/17 20:30 Temperature 98.3 F 98.9 F 98.7 F Pulse Rate 125 H 74 69 Respiratory Rate 20 20 17 Blood Pressure 145/75 H 110/60 128/80 Pulse Oximetry 98 99 95 10/23/17 21:00 10/24/17 00:50 10/24/17 07:00 Temperature 97.6 F 98.8 F Pulse Rate 66 89 Respiratory Rate 19 17 Blood Pressure 133/83 134/80 Pulse Oximetry 97 94 L 95 10/24/17 08:00 Temperature 97.8 F Pulse Rate 113 H Respiratory Rate 19 Blood Pressure 138/79 Pulse Oximetry 96 Intake & Output 10/23/17 10/24/17 10/24/17 18:59 06:59 18:59 Intake Total 1240 / 1240 1900 / 1900 1550 / 1550 Output Total 551 / 551 1100 / 1100 2800 / 2800 Balance 689 / 689 800 / 800 -1250 / -1250 Weight 107.5 kg Intake: IV 1000 / 1000 1200 / 1200 1000 / 1000 NS Inj 1,000 ML @ 100 mls/hr IV 1000 / 1000 1000 / 1000 1000 / 1000 .CONT .Q10H [facility] Rx#:[id number] Maxipime Inj 2,000 MG In NS Inj 200 / 200 100 ML @ 200 mls/hr IV.SIG Q8H [facility] Rx#:[id number] Oral 240 / 240 700 / 700 550 / 550 Output: Stool / 700 / 700 1000 / 1000 Urine Amount (Catheter) 550 / 550 400 / 400 1800 / 1800 Indwelling Urethral Catheter 550 / 550 400 / 400 1800 / 1800 Other: Date of Last Bowel Movement 10/23/17 10/24/17 <Saeed Greene - 10/24/17 10:59> Narrative: GENERAL: Obese female laying in bed, no acute distress SKIN: Abdominal drainage tube in place with serosanguineous fluid. Dressing on abdominal incisions no excess drainage noted. Dehiscence of left thigh incision. Skin breakdown on right thigh/lower abdomen. Skin opening in left knee inferior to the patella. CARDIOVASCULAR: Mild tachycardia. Regular rhythm without murmurs, gallops, or rubs. RESPIRATORY: Decreased breath sounds in bases bilaterally. No accessory muscle use. No wheezing. GASTROINTESTINAL: Abdomen soft, nondistended, nontender. Normoactive bowel sounds. Rectal tube in place EXTREMITIES: Skin of L lower leg peeling from knee to ankle, improved erythema. Left knee swelling, non-tender to palpation. L pedal edema 1+. Trace R pedal edema. : Hopepr catheter in place, light yellow fluid in bag. <Saeed Greene - 10/24/17 10:59> - Urinary Catheter Management Indwelling Urethral Catheter Cath placed during this visit: no <John Joseph - 10/24/17 15:17> yes, but has since been removed by the nurse <Saeed Greene - 10/24/17 10:59> Reason for continuing: Severe pressure ulcer/wound <Saeed Greene - 10:59> Insertion date: 09/27/17 <Saeed Greene - 10/24/17 10:59> Insertion time: 08:20 <Saeed Greene - 10/24/17 10:59> Removal date: 10/05/17 <Saeed Greene - 10/24/17 10:59> Removal time: 17:30 <Saeed Greene - 10/24/17 10:59> Assessment and Plan - Assessment (1) Cellulitis of knee, left Code(s): L03.116 - Cellulitis of left lower limb Status: Acute (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 difficile diarrhea Code(s): A04.72 - Enterocolitis due to Clostridium difficile, not specified as recurrent Status: Acute (4) Fall Code(s): W19.XXXA - Unspecified fall, initial encounter Status: Acute (5) Fungal infection of skin of abdomen Code(s): B36.9 - Superficial mycosis, unspecified Status: Acute (6) Pneumonia Code(s): J18.9 - Pneumonia, unspecified organism Status: Resolved (7) Hypertension Code(s): I10 - Essential (primary) hypertension Status: Acute (8) Schizophrenia Code(s): F20.9 - Schizophrenia, unspecified Status: Chronic (9) Nutrition, metabolism, and development symptoms Code(s): R63.8 - Other symptoms and signs concerning food and fluid intake Status: Acute <John Joseph - 10/24/17 15:17> (1) Cellulitis of knee, left Code(s): L03.116 - Cellulitis of left lower limb Status: Acute Plan: -ID consulted- recommend Cefepime IV until 11/08, vancomycin for cdiff -CT knee report unchanged, small effusion History: -levaquin stopped 10/20 per ID -Diflucan course completed 10/18 -s/p 2 weeks of Keflex 500mg po. evaluated by ortho with no changes to management recommended. Knee looks improved from reported exam on admission. Minimal swelling. No erythema. Non tender to palpation. Patient has been OOB with assistance S/p PICC line placement. 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 NGTD, cleared from ID standpoint to go home with IV abs -Orthopedics ([place] for Dr. 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 She completed rehabilitation and was discharged home August 23. Patient was on approximately 2 weeks of po Keflex 500 mg. Per Ortho, examination of left knee shows no evidence of infection. (3) C. difficile diarrhea Code(s): A04.72 - Enterocolitis due to Clostridium difficile, not specified as recurrent Status: Acute Plan: -C diff cultures positive, likely cause of leukocytosis -Vancomycin PO 125 4 times daily, day 4 of 10 -Continue with probiotics. -rectal tube replaced yesterday History: On admission patient presented with 3-day history of diarrhea in the setting of recent antibiotics. All bowel regimens held. Patient C. difficile negative on admission. (4) Fall Code(s): W19.XXXA - Unspecified fall, initial encounter Status: Acute Plan: Fell 10/19/17. No loss of consciousness, no head injury, left knee and ankle pain. -Knee x-ray- prosthesis in place, no frx noted -ankle x-ray- no frx noted (5) Fungal infection of skin of abdomen Code(s): B36.9 - Superficial mycosis, unspecified Status: Acute Plan: -Continue current course of antibiotics -Repeat CBC in a.m. -Will discuss with surgery today regarding when drain will be removed as patient is headed towards discharge to SNF History: Surgical procedure 10/09, wound VAC applied. VAC changed 10/12 removed 10/15. (6) Pneumonia Code(s): J18.9 - Pneumonia, unspecified organism Status: Resolved Plan: Currently without symptoms of pneumonia -Continue to monitor vital signs -Continue incentive spirometry History: Patient found to have left lower lobe consolidation on chest CTA. Lungs CTAB today. She remains afebrile, with O2 sat WNL on room air. (7) Hypertension Code(s): I10 - Essential (primary) hypertension Status: Acute Plan: History of hypertension -continue to monitor (8) Schizophrenia Code(s): F20.9 - Schizophrenia, unspecified Status: Chronic Plan: -Psych consulted- recommend Continue Abilify 30 mg for psychosis, okay to continue buspirone 30 mg, trazodone 100 mg and Cymbalta 60 mg -Hold anticholinergics per Psych Patient with chronic history of schizophrenia. On admission patient presented with active hallucinations of seeing someone out to get her. No hallucinations over night (9) Nutrition, metabolism, and development symptoms Code(s): R63.8 - Other symptoms and signs concerning food and fluid intake Status: Acute Plan: Fluids: 100mls/hr Electrolytes: Replete as needed Nutrition: cardiac diet, continue to monitor po intake, supplement with ensure. Encouraged patient that she needed to increase p.o. intake in order to heal DVT prophylaxis: SCDs Continue to work with PT to get OOB <Saeed Greene - 10/24/17 10:56> - Assessment and Plan . <Saeed Greene - 10/24/17 10:59> - Attending Attestation Pt. examined and case discussed with resident physicians. I have read the above note and agree with the assessment and plan as discussed with me. I was involved in all medical decision making for this patient. John Joseph MD <John Joseph - 10/24/17 15:17> <Saeed Greene - Last Filed: 10/24/17 10:56> (6) Pneumonia Qualifiers: Pneumonia type: due to unspecified organism Laterality: left Lung location: lower lobe of lung Qualified Code(s): J18.1 - Lobar pneumonia, unspecified organism (7) Hypertension Qualifiers: Hypertension type: essential hypertension Qualified Code(s): I10 - Essential (primary) hypertension <John Joseph - Last Filed: 10/24/17 15:17> (6) Pneumonia Qualifiers: Pneumonia type: due to unspecified organism Laterality: left Lung location: lower lobe of lung Qualified Code(s): J18.1 - Lobar pneumonia, unspecified organism (7) Hypertension Qualifiers: Hypertension type: essential hypertension Qualified Code(s): I10 - Essential (primary) hypertension <Saeed Greene - Last Filed: 10/24/17 10:56> (6) Pneumonia Qualifiers: Pneumonia type: due to unspecified organism Laterality: left Lung location: lower lobe of lung Qualified Code(s): J18.1 - Lobar pneumonia, unspecified organism (7) Hypertension Qualifiers: Hypertension type: essential hypertension Qualified Code(s): I10 - Essential (primary) hypertension <John Joseph - Last Filed: 10/24/17 15:17> (6) Pneumonia Qualifiers: Pneumonia type: due to unspecified organism Laterality: left Lung location: lower lobe of lung Qualified Code(s): J18.1 - Lobar pneumonia, unspecified organism (7) Hypertension Qualifiers: Hypertension type: essential hypertension Qualified Code(s): I10 - Essential (primary) hypertension
--- NOTE | 2017-10-24 14:16 | P.PNID ---
Subjective Remarks: ID coverage. Follow up. 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 Post op it appears she was discharged to a rehab. She was discharged from the rehab to home with her on August 23. Patient reports she lives at home with her who is on disability. Unsure of nature of disability at this time and his ability to take care of her. She was reportedly able to ambulate on her own initially followed by weakness and need for walker and then to a point where she did not want to get out of bed. It has been reported to others that she had some discharge at the left surgical site area and ortho surgeon prescribed oral keflex which reportedly lead to some improvement. She reportedly completed a week of antibiotic treatment with last day scheduled for today with some improvement in her knee pain. However her stated that she was starting to have more drainage from her knee just over the past day or so. He had pointed to several areas that had been draining pus from just above and just below the knee. He stated that a cup full of pus would drain at a time. Additionally the abdominal fold wounds appear to have been present for atleast 3 weeks now. Additionally patient has a psychiatric history and is on medications such as Cymbalta and Abilify. She actively hallucinates per dw resident team and psych would like to resume her meds that are on hold due to severe neutropenia. With this background patient presents to the ED with complaints of worsening shortness of breath and mental status accompanied with symptoms of diarrhea (3 days, non-bloody) and decreased p.o. intake (5 days). She was also brought into the hospital due to infection of her knee that improved with Keflex p.o but now has returned with new additional drainage over the past few days. ID consulted for evaluation and Mment of Left knee prosthetic joint infection and neutropenia. Called to see patient for additional recommendations. Patient underwent incision and debridement of the inferior abdominal wall and proximal inner thighs on 10/12/2017. Receiving IV antibiotics for left knee infection. A CT scan was obtained yesterday evening and it showed small joint effusion and subcutaneous edema of the fat at the left knee. She fell on the way to the bathroom 10/19/17. She now had a tiny opening at the incision of the left knee which started draining purulent material. Culture was negative. No longer having drainage. The knee opening sealed off. Discussed with RN Patient says she feels okay. She has loose stools. Has deconditioned. RN reports that she has stools leaking around the [place] Stool c. diff positive. Denies nausea vomiting. Denies chills. The white blood cell count remain elevated but is slightly lower. Received Neupogen. Stopped 09/30. No fever. Antibiotics: Cefepime Vancomycin PO. Allergies/Adverse Reactions: Allergies amoxicillin Allergy (Verified 09/27/17 17:54) Swelling Objective Vital Signs 10/23/17 15:35 10/23/17 16:00 10/23/17 17:11 Temperature 98.3 F 98.9 F Pulse Rate 125 H 74 Respiratory Rate 12 20 20 Blood Pressure 145/75 H 110/60 Pulse Oximetry 98 99 10/23/17 20:30 10/23/17 21:00 10/24/17 00:50 Temperature 98.7 F 97.6 F Pulse Rate 69 66 Respiratory Rate 17 19 Blood Pressure 128/80 133/83 Pulse Oximetry 95 97 94 L 10/24/17 07:00 10/24/17 08:00 10/24/17 12:00 Temperature 98.8 F 97.8 F 98.1 F Pulse Rate 89 113 H 124 H Respiratory Rate 17 19 18 Blood Pressure 134/80 138/79 128/75 Pulse Oximetry 95 96 97 Intake & Output 10/23/17 10/24/17 10/24/17 18:59 06:59 18:59 Intake Total 1240 / 1240 1900 / 1900 1650 / 1650 Output Total 551 / 551 1100 / 1100 2800 / 2800 Balance 689 / 689 800 / 800 -1150 / -1150 Weight 107.5 kg Intake: IV 1000 / 1000 1200 / 1200 1100 / 1100 NS Inj 1,000 ML @ 100 mls/hr IV 1000 / 1000 1000 / 1000 1000 / 1000 .CONT .Q10H [facility] Rx#:[id number] Maxipime Inj 2,000 MG In NS Inj 200 / 200 100 / 100 100 ML @ 200 mls/hr IV.SIG Q8H [facility] Rx#:[id number] Oral 240 / 240 700 / 700 550 / 550 Output: Stool 1 / 1 700 / 700 1000 / 1000 Urine Amount (Catheter) 550 / 550 400 / 400 1800 / 1800 Indwelling Urethral Catheter 550 / 550 400 / 400 1800 / 1800 Other: Date of Last Bowel Movement 10/23/17 10/24/17 10/09/17 15:49 Tissue - Abdominal Fungal Smear - Final No fungal elements seen 10/09/17 15:49 Tissue - Abdominal Fungal Culture - Preliminary No growth in 2 weeks 10/09/17 15:49 Tissue - Abdominal Acid Fast Bacilli Smear - Final No acid fast bacilli seen 10/09/17 15:49 Tissue - Abdominal Mycobacterial Culture - Preliminary No growth in 2 weeks 10/19/17 13:50 Wound - Knee Gram Stain - Final 10/19/17 13:50 Wound - Knee Wound Culture - Final No growth in 72 hours (aerobically and anaerobically ) Lab - Hematology Results 10/23/17 10/24/17 06:20 06:00 WBC 21.2 H 17.5 H RBC 2.81 L 2.87 L Hgb 7.6 L 7.9 L Hct 23.0 L 23.8 L MCV 81.8 82.9 MCH 27.0 27.6 MCHC 33.0 33.3 RDW 16.6 16.6 Plt Count 405 399 MPV 6.9 L 7.2 Prelim Diff (Auto) Manual diff required WBC Differential Manual diff final Seg Neuts % (Manual) 92 H Band Neuts % (Manual) 2 Lymphocytes % (Manual) 2 L Monocytes % (Manual) 2 Eosinophils % (Manual) 2 Abs Neuts (Manual) 19.9 H Differential Comment . Hypersegmented Neuts 1+ H Toxic Vacuolation Present H Platelet Estimate Normal Platelet Morphology Normal Target Cells 1+ H Lab - Chemistry Results 10/23/17 10/24/17 06:22 06:00 Sodium 143 141 Potassium 3.6 3.8 Chloride 112 H 111 H Carbon Dioxide 23.9 22.8 Anion Gap 7 7 BUN 7 7 Creatinine 0.45 L 0.45 L Estimated GFR Greater than 89 Greater than 89 Random Glucose 83 65 L Calcium 7.8 L 7.7 L Imaging: ITS Impressions Tibia/Fibula X-Ray 09/27/17 00:00 CONCLUSION: No acute left leg abnormality is identified. Abdomen/Pelvis CT 09/27/17 08:10 CONCLUSION: 1. Mild hepatic steatosis. 2. Thickening of the colon secondary to lack of distention versus colitis. 3. Left lower lobe consolidation and/or atelectasis. There does appear to be a 1.4 cm cavitary area which makes consolidation likely. Head CT 09/27/17 08:10 CONCLUSION: No acute intracranial abnormality is seen. Chest CTA 09/27/17 08:22 CONCLUSION: 1. No pulmonary embolus. 2. Consolidation or atelectasis at the left lower lobe. Venous Doppler Study 09/29/17 00:00 CONCLUSION: No evidence of deep venous thrombosis. Chest X-Ray 10/09/17 16:08 CONCLUSION: 1. Apparent right internal jugular central venous line with the tip projected near the base of the right neck. There is no pneumothorax. 2. Right-sided PICC line now noted. Knee CT 10/18/17 00:00 CONCLUSION: 1. Small joint effusion. 2. Nonspecific subcutaneous edema in the subcutaneous soft tissues above and below the knee. 3. No significant changes compared to the prior exam. Ankle X-Ray 10/19/17 00:00 CONCLUSION: 1. No acute fracture or dislocation. Knee X-Ray 10/19/17 00:00 CONCLUSION: 1. Total knee prosthesis in place. 2. Moderate-sized knee joint effusion. Physical Exam: GENERAL: Alert and oriented, no acute distress. HEENT: Pupils reactive to light. Extraocular movements intact. No icterus. NECK: Supple without adenopathy. No swelling. LUNGS: Decreased breath sounds. HEART: Regular S1 and S2 without murmurs or rubs or gallops. ABDOMEN: Obese, soft. Nontender. Postoperative abdominal incisions with nedra in place along the thighs and inferior abdomen wall. ZAMZAM in abdominal wound bed has little serous drainage. EXTREMITIES: swelling of the left knee. Tiny ulceration couple millimeters at the knee surgical incision has healed off. No more drainage. SKIN: No diffuse rash. NEUROLOGIC: Awake and alert and oriented. Nonfocal. PSYCH: Pleasant, calm and cooperative. Assessment and Plan - Plan IMPRESSION: Neutropenic sepsis WBC increased after treatment with Neupogen. Leucopenia, pancytopenia: ? MTX, ? Psych meds, ? Sepsis contributing. Resolved after treatment with Neupogen. Abdominal fold cellulitis/skin breakdown. Post incision and debridement and closure of skin fold. Groin cellulitis, Mons pubis cellulitis/skin breakdown. H/o fall with scraping of left knee. Left knee hardware in place. CT with fluid collection. Left knee infection - prior wound culture had Pseudomonas and group B beta strep. Recurrent purulent drainage from the incision. Repeat wound culture had no growth. Diarrhea - Positive C. difficile. RECOMMENDATIONS: Continue Cefepime IV to complete 6 weeks until November 08, 2017. Continue Vancomycin for C. difficile treat until completion of cefepime. Monitor clinical status.
--- NOTE | 2017-10-24 16:17 | XR ---
EXAM DATE: 10/24/2017 4:02 PM EDT AGE/SEX: 51 years / Female INDICATIONS: Shortness of breath. Possible respiratory disease. CLINICAL DATA: This is the patient's initial encounter. Patient reports that signs and symptoms have been present for 1 day and indicates a pain score of Nonresponsive. MEDICAL/SURGICAL HISTORY: . Sepsis. Anemia. neutropenia . . cervical fusion COMPARISON: [facility], CHEST 1V SINGLE AP, 10/09/2017. . FINDINGS: A single AP view of the chest demonstrates the lungs to be symmetrically aerated without evidence of mass, infiltrate or effusion. The cardiomediastinal contours are unremarkable. Osseous structures a re intact. Right-sided PICC line is again noted. Hardware is noted within the lower cervical spine. Degenerative changes are noted throughout the thoracic spine. CONCLUSION: No acute cardiopulmonary disease. Electronically signed by: Fransico Lucas MD 10/24/2017 4:16 PM EDT
[2017-10-25] MEDS: Morphine Sulfate Inj 2 MG/ML Vial IV.PUSH PRN (04:51)
[2017-10-25 05:26] LABS: Baso # (Auto) 0.1 th/mm3 (0.0-0.2); Eos # (Auto) 0.3 th/mm3 (0.0-0.4); Eos % (Auto) 1.9 % (0.0-4.0); Hematocrit 23.1 % (35.0-46.0); Hemoglobin 7.7 gm/dL (11.6-15.3); Lymph # (Auto) 1.7 th/mm3 (1.0-4.8); Lymph % (Auto) 11.8 % (9.0-44.0); Mean Corpuscular HGB Conc 33.3 % (32.0-36.0); Mean Corpuscular Hemoglobin 27.6 pg (27.0-34.0); Mean Platelet Volume 6.7 fL (7.0-11.0); Mono # (Auto) 1.3 th/mm3 (0.0-0.9); Mono % (Auto) 9.1 % (0.0-8.0); Neut % (Auto) 76.2 % (16.0-70.0); Platelet Count 390 th/mm3 (150-450); Red Blood Count 2.78 mil/mm3 (4.00-5.30); Red Cell Distribution Width 17.1 % (11.6-17.2); White Blood Count 14.4 th/mm3 (4.0-11.0)
[2017-10-25 05:47] LABS: Anion Gap 7 meq/L (5-15); Aspartate Aminotransferase 14 U/L (15-37); Blood Urea Nitrogen 7 mg/dL (7-18); Calcium 7.5 mg/dL (8.5-10.1); Carbon Dioxide 21.5 meq/L (21.0-32.0); Chloride 112 meq/L (98-107); Glomerular Filtration Rate Greater Than 89 mL/min (>89); Glucose,Random 67 mg/dL (74-106); Potassium 3.8 meq/L (3.5-5.1); Sodium 140 meq/L (136-145)
[2017-10-25 05:48] LABS: Alanine Aminotransferase 16 U/L (10-53)
[2017-10-25 05:50] LABS: Alkaline Phosphatase 165 U/L (45-117); Total Protein 4.8 g/dL (6.4-8.2)
[2017-10-25] MEDS: Sod Chloride 0.9% Inj 1,000 ML IV.CONT SCH ×2 (09:19→15:41)
[2017-10-25] MEDS: Duloxetine 60 MG DR Capsule PO SCH (09:20)
[2017-10-25] MEDS: Pantoprazole Sodium 20 MG DR Tablet PO SCH (09:20)
[2017-10-25] MEDS: dilTIAZem 60 MG Tablet PO SCH ×3 (09:20→18:27)
[2017-10-25] MEDS: traZODone 100 MG Tablet PO SCH (09:21)
[2017-10-25] MEDS: Metoprolol Tartrate 25 MG Tablet PO SCH ×2 (09:21→22:31)
[2017-10-25] MEDS: Folic Acid 1 MG Tablet PO SCH (09:21)
[2017-10-25] MEDS: Heparin Central Flush 100 UNIT/ML 5 ML Vial IV.FLUSH SCH (09:21)
--- NOTE | 2017-10-25 10:49 | P.PNFP ---
Subjective Interval history: Attending Note: Patient seen and examined with resident medicine team this morning and patient with altereed mental status unable to give orientation answers accurately. Nursing staff reports she is more awake at different times of the day. Patient expresses no acute symptoms at time of visit. Agree with resident's note re subjective. <Manjinder Grant - 10/25/17 22:13> Patient seen and examined today. Denies nausea, vomiting, fever, chills, abdominal pain, chest pain, shortness of breath, lightheadedness, dizziness. Although obvious dehiscence, denies any abdominal or leg pain. Patient is not oriented to person, place, time. Although patient has not been eating well, nursing reports that she has been drinking her Ensure. <Saeed Greene - 10/25/17 10:49> Results - Labs Result diagrams: 10/25/17 05:00 10/25/17 05:00 <Manjinder Grant - 10/25/17 22:30> Abnormal lab results 10/25/17 10/25/17 Range/Units 05:00 05:00 WBC 14.4 H (4.0-11.0) th/mm3 RBC 2.78 L (4.00-5.30) mil/mm3 Hgb 7.7 L (11.6-15.3) gm/dL Hct 23.1 L (35.0-46.0) % MPV 6.7 L (7.0-11.0) fL Neut % (Auto) 76.2 H (16.0-70.0) % [place] % (Auto) 9.1 H (0.0-8.0) % Neut # (Auto) 11.0 H (1.8-7.7) th/mm3 [place] # (Auto) 1.3 H (0.0-0.9) th/mm3 Chloride 112 H (98-107) meq/L Creatinine 0.42 L (0.50-1.00) mg/dL Random Glucose 67 L (74-106) mg/dL Calcium 7.5 L (8.5-10.1) mg/dL AST 14 L (15-37) U/L Alkaline Phosphatase 165 H (45-117) U/L Total Protein 4.8 L (6.4-8.2) g/dL Albumin 1.0 L (3.4-5.0) g/dL Short CBC 10/25/17 Range/Units 05:00 WBC 14.4 H (4.0-11.0) th/mm3 Hgb 7.7 L (11.6-15.3) gm/dL Hct 23.1 L (35.0-46.0) % Plt Count 390 (150-450) th/mm3 BMP 10/25/17 05:00 Sodium 140 Potassium 3.8 Chloride 112 H Carbon Dioxide 21.5 BUN 7 Creatinine 0.42 L Calcium 7.5 L Liver Function 10/25/17 Range/Units 05:00 Total Bilirubin 0.4 (0.2-1.0) mg/dL AST 14 L (15-37) U/L ALT 16 (10-53) U/L Alkaline Phosphatase 165 H (45-117) U/L Albumin 1.0 L (3.4-5.0) g/dL <Manjinder Grant - 10/25/17 22:30> Abnormal lab results 10/25/17 10/25/17 Range/Units 05:00 05:00 WBC 14.4 H (4.0-11.0) th/mm3 RBC 2.78 L (4.00-5.30) mil/mm3 Hgb 7.7 L (11.6-15.3) gm/dL Hct 23.1 L (35.0-46.0) % MPV 6.7 L (7.0-11.0) fL Neut % (Auto) 76.2 H (16.0-70.0) % [place] % (Auto) 9.1 H (0.0-8.0) % Neut # (Auto) 11.0 H (1.8-7.7) th/mm3 [place] # (Auto) 1.3 H (0.0-0.9) th/mm3 Chloride 112 H (98-107) meq/L Creatinine 0.42 L (0.50-1.00) mg/dL Random Glucose 67 L (74-106) mg/dL Calcium 7.5 L (8.5-10.1) mg/dL AST 14 L (15-37) U/L Alkaline Phosphatase 165 H (45-117) U/L Total Protein 4.8 L (6.4-8.2) g/dL Albumin 1.0 L (3.4-5.0) g/dL Short CBC 10/25/17 Range/Units 05:00 WBC 14.4 H (4.0-11.0) th/mm3 Hgb 7.7 L (11.6-15.3) gm/dL Hct 23.1 L (35.0-46.0) % Plt Count 390 (150-450) th/mm3 BMP 10/25/17 05:00 Sodium 140 Potassium 3.8 Chloride 112 H Carbon Dioxide 21.5 BUN 7 Creatinine 0.42 L Calcium 7.5 L Liver Function 10/25/17 Range/Units 05:00 Total Bilirubin 0.4 (0.2-1.0) mg/dL AST 14 L (15-37) U/L ALT 16 (10-53) U/L Alkaline Phosphatase 165 H (45-117) U/L Albumin 1.0 L (3.4-5.0) g/dL <Saeed Greene - 10/25/17 10:49> - Imaging Impressions Chest X-Ray 10/24/17 00:00 CONCLUSION: No acute cardiopulmonary disease. <Saeed Greene - 10/25/17 10:49> Physical Exam Vital signs: Vital Signs 10/25/17 00:00 10/25/17 04:00 10/25/17 08:00 Temperature 97.5 F L 98.0 F 98.1 F Pulse Rate 111 H 69 87 Respiratory Rate 17 17 18 Blood Pressure 121/71 138/80 138/79 Pulse Oximetry 98 99 96 10/25/17 09:00 10/25/17 12:00 10/25/17 16:00 Temperature 97.8 F 98.5 F Pulse Rate 117 H 110 H Respiratory Rate 16 19 Blood Pressure 124/74 110/78 Pulse Oximetry 98 98 10/25/17 20:00 Temperature 98.5 F Pulse Rate 109 H Respiratory Rate 18 Blood Pressure 137/69 Pulse Oximetry 99 Intake & Output 10/25/17 10/25/17 10/26/17 06:59 18:59 06:59 Intake Total 2300 / 2300 Output Total 1650 / 1650 850 / 850 1050 / 1050 Balance -1650 / -1650 1450 / 1450 -1050 / -1050 Weight 107.9 kg Intake: IV 2300 / 2300 NS Inj 1,000 ML @ 100 mls/hr IV 1999 .CONT .Q10H [facility] Rx#:[id number] Maxipime Inj 2,000 MG In NS Inj 300 / 300 100 ML @ 200 mls/hr IV.SIG Q8H [facility] Rx#:[id number] Output: Urine 1150 / 1150 Stool 500 / 500 600 / 600 Urine Amount (Catheter) 500 / 500 350 / 350 400 / 400 Indwelling Urethral Catheter 500 / 500 350 / 350 400 / 400 Wound Drainage 50 / 50 ZAMZAM Drain 50 / 50 Other: Date of Last Bowel Movement 10/24/17 10/24/17 <Manjinder Grant - 10/25/17 22:30> Vital Signs 10/24/17 12:00 10/24/17 16:00 10/24/17 20:00 Temperature 98.1 F 98.1 F 98.3 F Pulse Rate 124 H 122 H 119 H Respiratory Rate 18 18 17 Blood Pressure 128/75 130/75 119/63 Pulse Oximetry 97 96 96 10/24/17 21:00 10/25/17 00:00 10/25/17 04:00 Temperature 97.5 F L 98.0 F Pulse Rate 111 H 69 Respiratory Rate 17 17 Blood Pressure 121/71 138/80 Pulse Oximetry 95 98 99 Intake & Output 10/24/17 10/25/17 10/25/17 18:59 06:59 18:59 Intake Total 2750 / 2750 1100 / 1100 Output Total 2800 / 2800 1650 / 1650 Balance -50 / -50 -1650 / -1650 1100 / 1100 Weight 107.5 kg 107.9 kg Intake: IV 2200 / 2200 1100 / 1100 NS Inj 1,000 ML @ 100 mls/hr IV 1999 1000 / 1000 .CONT .Q10H [facility] Rx#:[id number] Maxipime Inj 2,000 MG In NS Inj 200 / 200 100 / 100 100 ML @ 200 mls/hr IV.SIG Q8H [facility] Rx#:[id number] Oral 550 / 550 Output: Urine 1150 / 1150 Stool 1000 / 1000 Urine Amount (Catheter) 1800 / 1800 500 / 500 Indwelling Urethral Catheter 1800 / 1800 500 / 500 Other: Date of Last Bowel Movement 10/24/17 10/24/17 <Saeed Greene - 10/25/17 10:49> Narrative: Vital signs noted, pulse increased afebrile Gen'l appearance: minimal eye contact, does attempt to respond to simple commands. O to name only HEENT- grossly non-localizing Lungs- diminished breath sounds at bases Cardiac- increase pulse rate, Abdoment : protuberant, soft, ZAMZAM lLQ, open crural wounds bilat. nedra vertical midline. LE- edematous distal, warm and dry, difficult to palpate actual pulses. Left knee increased effusion, no redness, is warm to touch. Patient voluntarily flexes left knee 10+ degrees from mildly flexed position. <Manjinder Grant - 10/25/17 22:30> GENERAL: Obese female laying in bed, no acute distress SKIN: Abdominal drainage tube in place with serosanguineous fluid. Dressing on abdominal incisions no excess drainage noted. Dehiscence of left thigh incision. Skin breakdown on right thigh/lower abdomen. Skin opening in left knee inferior to the patella. CARDIOVASCULAR: Mild tachycardia. Regular rhythm without murmurs, gallops, or rubs. RESPIRATORY: Decreased breath sounds in bases bilaterally. No accessory muscle use. No wheezing. GASTROINTESTINAL: Abdomen soft, nondistended, nontender. Normoactive bowel sounds. Rectal tube in place EXTREMITIES: Skin of L lower leg peeling from knee to ankle, improved erythema. Left knee swelling, non-tender to palpation. L pedal edema 1+. Trace R pedal edema. : Hopper catheter in place, light yellow fluid in bag. <Saeed Greene - 10/25/17 10:49> - Urinary Catheter Management Indwelling Urethral Catheter Cath placed during this visit: no <Manjinder Grant - 10/25/17 22:30> yes, but has since been removed by the nurse <Saeed Greene - 10/25/17 10:49> Reason for continuing: Severe pressure ulcer/wound <Saeed Greene - 10:49> Insertion date: 09/27/17 <Saeed Greene 10/25/17 10:49> Insertion time: 08:20 <Saeed Greene 10/25/17 10:49> Removal date: 10/05/17 <Saeed Greene 10/25/17 10:49> Removal time: 17:30 <Saeed Greene 10/25/17 10:49> Assessment and Plan - Assessment (1) Cellulitis of knee, left Code(s): L03.116 - Cellulitis of left lower limb Status: Acute (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 difficile diarrhea Code(s): A04.72 - Enterocolitis due to Clostridium difficile, not specified as recurrent Status: Acute (4) Fall Code(s): W19.XXXA - Unspecified fall, initial encounter Status: Acute (5) Fungal infection of skin of abdomen Code(s): B36.9 - Superficial mycosis, unspecified Status: Acute (6) Pneumonia Code(s): J18.9 - Pneumonia, unspecified organism Status: Resolved (7) Hypertension Code(s): I10 - Essential (primary) hypertension Status: Acute (8) Schizophrenia Code(s): F20.9 - Schizophrenia, unspecified Status: Chronic (9) Nutrition, metabolism, and development symptoms Code(s): R63.8 - Other symptoms and signs concerning food and fluid intake Status: Acute <Manjinder Grant - 10/25/17 22:30> (1) Cellulitis of knee, left Code(s): L03.116 - Cellulitis of left lower limb Status: Acute Plan: -ID consulted- recommend Cefepime IV until 11/08, vancomycin for cdiff -CT knee report unchanged, small effusion History: -levaquin stopped 10/20 per ID -Diflucan course completed 10/18 -s/p 2 weeks of Keflex 500mg po. evaluated by ortho with no changes to management recommended. Knee looks improved from reported exam on admission. Minimal swelling. No erythema. Non tender to palpation. Patient has been OOB with assistance S/p PICC line placement. 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 NGTD, cleared from ID standpoint to go home with IV abs -Orthopedics ([place] for Dr. 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 She completed rehabilitation and was discharged home August 23. Patient was on approximately 2 weeks of po Keflex 500 mg. Per Ortho, examination of left knee shows no evidence of infection. (3) C. difficile diarrhea Code(s): A04.72 - Enterocolitis due to Clostridium difficile, not specified as recurrent Status: Acute Plan: -C diff cultures positive, likely cause of leukocytosis -Vancomycin PO 125 4 times daily, day 4 of 10 -Continue with probiotics. -rectal tube replaced yesterday History: On admission patient presented with 3-day history of diarrhea in the setting of recent antibiotics. All bowel regimens held. Patient C. difficile negative on admission. (4) Fall Code(s): W19.XXXA - Unspecified fall, initial encounter Status: Acute Plan: Fell 10/19/17. No loss of consciousness, no head injury, left knee and ankle pain. -Knee x-ray- prosthesis in place, no frx noted -ankle x-ray- no frx noted (5) Fungal infection of skin of abdomen Code(s): B36.9 - Superficial mycosis, unspecified Status: Acute Plan: -Continue current course of antibiotics -Repeat CBC in a.m. -Will discuss with surgery today regarding when drain will be removed as patient is headed towards discharge to SNF History: Surgical procedure 10/09, wound VAC applied. VAC changed 10/12 removed 10/15. (6) Pneumonia Code(s): J18.9 - Pneumonia, unspecified organism Status: Resolved Plan: Currently without symptoms of pneumonia -Continue to monitor vital signs -Continue incentive spirometry History: Patient found to have left lower lobe consolidation on chest CTA. Lungs CTAB today. She remains afebrile, with O2 sat WNL on room air. (7) Hypertension Code(s): I10 - Essential (primary) hypertension Status: Acute Plan: History of hypertension -continue to monitor (8) Schizophrenia Code(s): F20.9 - Schizophrenia, unspecified Status: Chronic Plan: -Psych consulted- recommend Continue Abilify 30 mg for psychosis, okay to continue buspirone 30 mg, trazodone 100 mg and Cymbalta 60 mg -Hold anticholinergics per Psych Patient with chronic history of schizophrenia. On admission patient presented with active hallucinations of seeing someone out to get her. No hallucinations over night (9) Nutrition, metabolism, and development symptoms Code(s): R63.8 - Other symptoms and signs concerning food and fluid intake Status: Acute Plan: Fluids: 100mls/hr Electrolytes: Replete as needed Nutrition: cardiac diet, continue to monitor po intake, supplement with ensure. Encouraged patient that she needed to increase p.o. intake in order to heal DVT prophylaxis: SCDs Continue to work with PT to get OOB <Saeed Greene - 10/25/17 10:45> - Assessment and Plan Assessment/Plan: extremely complex middle age woman with probable hospital environment associated altered mental status. s/p left knee arthroplasty September 2017, bilat crural wounds with polymicrobial infection, leukocytosis 14.4 with left shift, anemia hgb 7.7, normal ammonia level and I>>O . Discussed at length with resident team and agree with resident team eval and plan as outlined. Manjinder Grant MD <Manjinder Grant - 10/25/17 22:30> . <Saeed Greene - 10/25/17 10:49> <Saeed Greene - Last Filed: 10/25/17 10:45> (6) Pneumonia Qualifiers: Pneumonia type: due to unspecified organism Laterality: left Lung location: lower lobe of lung Qualified Code(s): J18.1 - Lobar pneumonia, unspecified organism (7) Hypertension Qualifiers: Hypertension type: essential hypertension Qualified Code(s): I10 - Essential (primary) hypertension <Manjinder Grant E - Last Filed: 10/25/17 22:30> (6) Pneumonia Qualifiers: Pneumonia type: due to unspecified organism Laterality: left Lung location: lower lobe of lung Qualified Code(s): J18.1 - Lobar pneumonia, unspecified organism (7) Hypertension Qualifiers: Hypertension type: essential hypertension Qualified Code(s): I10 - Essential (primary) hypertension <Saeed Greene A - Last Filed: 10/25/17 10:45> (6) Pneumonia Qualifiers: Pneumonia type: due to unspecified organism Laterality: left Lung location: lower lobe of lung Qualified Code(s): J18.1 - Lobar pneumonia, unspecified organism (7) Hypertension Qualifiers: Hypertension type: essential hypertension Qualified Code(s): I10 - Essential (primary) hypertension <Manjinder Grant E - Last Filed: 10/25/17 22:30> (6) Pneumonia Qualifiers: Pneumonia type: due to unspecified organism Laterality: left Lung location: lower lobe of lung Qualified Code(s): J18.1 - Lobar pneumonia, unspecified organism (7) Hypertension Qualifiers: Hypertension type: essential hypertension Qualified Code(s): I10 - Essential (primary) hypertension
--- NOTE | 2017-10-25 15:50 | P.PNGS ---
<MagdyTiana - Last Filed: 10/25/17 15:46> Subjective Interval history: Resting in bed; RN Nigel at bedside Physical Exam Vital signs: Vital Signs 10/24/17 16:00 10/24/17 20:00 10/24/17 21:00 Temperature 98.1 F 98.3 F Pulse Rate 122 H 119 H Respiratory Rate 18 17 Blood Pressure 130/75 119/63 Pulse Oximetry 96 96 95 10/25/17 00:00 10/25/17 04:00 10/25/17 08:00 Temperature 97.5 F L 98.0 F 98.1 F Pulse Rate 111 H 69 113 H Respiratory Rate 17 17 18 Blood Pressure 121/71 138/80 138/79 Pulse Oximetry 98 99 96 10/25/17 09:00 Temperature Pulse Rate Respiratory Rate Blood Pressure Pulse Oximetry 98 Intake & Output 10/24/17 10/25/17 10/25/17 18:59 06:59 18:59 Intake Total 2750 / 2750 2200 / 2200 Output Total 2800 / 2800 1650 / 1650 850 / 850 Balance -50 / -50 -1650 / -1650 1350 / 1350 Weight 107.5 kg 107.9 kg Intake: IV 2200 / 2200 2200 / 2200 NS Inj 1,000 ML @ 100 mls/hr IV 1999 / 1999 .CONT .Q10H [facility] Rx#:[id number] Maxipime Inj 2,000 MG In NS Inj 200 / 200 200 / 200 100 ML @ 200 mls/hr IV.SIG Q8H [facility] Rx#:[id number] Oral 550 / 550 Output: Urine 1150 / 1150 Stool 1000 / 1000 500 / 500 Urine Amount (Catheter) 1800 / 1800 500 / 500 350 / 350 Indwelling Urethral Catheter 1800 / 1800 500 / 500 350 / 350 Other: Date of Last Bowel Movement 10/24/17 10/24/17 10/24/17 Narrative: Alert and awake although remains confused Cardio: RRR Resp: CTAB Abd: low transverse incision--- Maxorb removed and new Maxorb Ag applied; secure with ABD and perforated tape Inner thigh open area packed with NS gauze LEFT knee swollen with small pinpoint area of drainage - Urinary Catheter Management Indwelling Urethral Catheter Cath placed during this visit: yes, but has since been removed by the nurse Reason for continuing: Severe pressure ulcer/wound Insertion date: 09/27/17 Insertion time: 08:20 Removal date: 10/05/17 Removal time: 17:30 Assessment and Plan - Plan 51 year old female s/p I&D of abdominal/thigh wounds -Continue Maxorb Ag dressings due to moistness; pack open area of LEFT medial thigh with wet to dry dressings ---change daily -Continue ZAMZAM -Diet as tolerated---encouraged high protein foods to aid in healing - team following -Now with Cdiff -Will likely need rehab placement -GS will continue to follow peripherally <Jose Schneider S - Last Filed: 10/30/17 20:59> Physical Exam Vital signs: Vital Signs 10/29/17 21:33 10/29/17 21:35 10/29/17 21:40 Temperature 97.8 F 97.8 F 97.8 F Pulse Rate 119 H 116 H 116 H Respiratory Rate 18 18 Blood Pressure 120/74 120/74 120/74 Pulse Oximetry 98 99 99 10/29/17 21:56 10/29/17 22:15 10/29/17 22:16 Temperature 98.3 F 98.3 F Pulse Rate 120 H 113 H Respiratory Rate 18 20 Blood Pressure 121/81 121/81 Pulse Oximetry 99 99 10/29/17 23:07 10/29/17 23:22 10/30/17 00:00 Temperature 98.7 F 98.0 F Pulse Rate 111 H 105 H Respiratory Rate 18 18 Blood Pressure 119/66 148/70 H Pulse Oximetry 100 99 10/30/17 01:22 10/30/17 01:39 10/30/17 01:45 Temperature 97.2 F L 97.8 F 98.2 F Pulse Rate 95 H 107 H 94 H Respiratory Rate 18 19 19 Blood Pressure 134/72 141/96 H 145/86 H Pulse Oximetry 100 100 100 10/30/17 04:00 10/30/17 08:00 10/30/17 12:00 Temperature 98.1 F 97.5 F L 97.6 F Pulse Rate 105 H 118 H 113 H Respiratory Rate 18 18 18 Blood Pressure 140/71 146/80 H 137/77 Pulse Oximetry 99 99 99 10/30/17 16:00 10/30/17 16:54 Temperature 97.4 F L Pulse Rate 110 H Respiratory Rate 18 16 Blood Pressure 127/81 Pulse Oximetry 100 Intake & Output 10/30/17 10/30/17 10/31/17 06:59 18:59 06:59 Intake Total 942 / 942 1930 / 1930 Output Total 2805 / 2805 1300 / 1300 Balance -1863 / -1863 630 / 630 Weight 112.1 kg Intake: IV 100 / 100 1450 / 1450 NS Inj 1,000 ML @ 100 mls/hr IV 1000 / 1000 .CONT .Q10H [facility] Rx#:[id number] Maxipime Inj 2,000 MG In NS Inj 100 / 100 200 / 200 100 ML @ 200 mls/hr IV.SIG Q8H [facility] Rx#:[id number] NS Inj 250 ML @ 15 mls/hr IV. 250 / 250 SIG ONCE [facility] Rx#:[id number] Oral 442 / 442 480 / 480 Intake (Blood Product) Amt 400 / 400 Rbc As-3 Leukoreduced Unit 400 / 400 [id number] Rbc As-3 Leukoreduced Unit 0 / 0 [id number] Rbc As-3 Leukoreduced Unit 0 / 0 [id number] Output: Urine 800 / 800 Stool 500 / 500 Urine Amount (Catheter) 2750 / 2750 Indwelling Urethral Catheter 2750 / 2750 Wound Drainage 55 / 55 ZAMZAM Drain 55 / 55 Other: Mode Setting Left Upper Groin Continuous Midline Groin Continuous Perineal Continuous Right Lower Groin Thigh Continuous Date of Last Bowel Movement 10/30/17 10/30/17 # [place] 1 - Urinary Catheter Management Indwelling Urethral Catheter Cath placed during this visit: no Assessment and Plan - Attending Attestation patient seen at bedside poor nutrition pt fell contributing to wound break down will peripherally follow may need re examine in or The exam, history, and the medical decision-making described in the above note were completed with the assistance of the mid-level provider. I reviewed and agree with the findings presented. I attest that I had a [id number] encounter with the patient on the same day, and personally performed and documented my assessment and findings in the medical record.
--- NOTE | 2017-10-25 15:55 | P.PNWCN ---
Wound Care Nurse Consult Description: Patient seen today per RN request os skin breakdown to buttock area Communicated with: VAN jones and Tiana NICHOLSON Recommendation: 1. Please cleanse wounds to bilateral inner buttocks with normal saline and pat dry. 2. Apply Maxorb Extra AG (Calcium alginate AG) loosely packed to wound beds only do not let dressing over lap on to intact skin. Change packing as needed 3. Apply Calazime skin protectant paste to periwound, bilateral buttocks and posterior thighs BID and PRN. 4.Turn patient every 2 hours and PRN for comfort and offloading of pressure from loan prominences. 5. Please place patient on Airapy low airloss bed. Wound/Pressure Injury - Wound R perineal area Wound Staging: Stage III Wound Assessment: Ongoing Wound Type: Pressure Injury (Device related) Is This a Chronic Wound: No Length: 5 (cm) Width: 3 (cm) Depth: 0.4 (~0.4cm ) Wound Bed Appearance: [place], Red, Yellow Wound Bed Appearance: Wound bed presents with ~20% pink tissue 50% red tissue and ~30% adipose tissue. Wound bed is moist Surrounding Tissue Temperature: Warm Drainage Description: Serosanguinous Drainage Amount: Minimal Drainage Odor: No Odor Dressing Status: Open to Air Cleansing Solution: Saline L Perineal Wound Staging: Stage III Wound Assessment: Ongoing Wound Type: Pressure Injury Is This a Chronic Wound: No Length: 5 (cm) Width: 5.5 (cm) Depth: 0.3 (~0.3cm) Wound Bed Appearance: [place], Red, Yellow Wound Bed Appearance: Wound bed presents with ~40% adipose tissue, ~60% red tissue. Surrounding Tissue Temperature: Warm Drainage Description: Serosanguinous Drainage Amount: Minimal Drainage Odor: No Odor Dressing Status: Open to Air Cleansing Solution: Saline Primary Dressing: Incision - Additional Information Patient seen on with VAN jones, for evaluation of skin breakdown on buttock area. VAN Blackwell and narrative writer turned patient with maximum assist to L side to reveal leaking Dignisheild fecal management system in place. Perineal area in contact with fecal management tube presents with wounds to L perineal area and R perineal area. Wounds appear to be device related pressure injuries with mixed etiology of moisture, pressure, and friction. Wound descriptions and measurements are noted above. Wounds were left open to air. RN to obtain supplies and will apply dressings and Calazime skin protectant paste as recommended above.
[2017-10-26] MEDS: Sod Chloride 0.9% Inj 1,000 ML IV.CONT SCH ×3 (03:37→15:25)
[2017-10-26] MEDS: traZODone 100 MG Tablet PO SCH (10:15)
[2017-10-26] MEDS: dilTIAZem 60 MG Tablet PO SCH ×3 (10:15→17:17)
[2017-10-26] MEDS: Metoprolol Tartrate 25 MG Tablet PO SCH ×2 (10:15→22:09)
[2017-10-26] MEDS: Pantoprazole Sodium 20 MG DR Tablet PO SCH (10:15)
[2017-10-26] MEDS: Folic Acid 1 MG Tablet PO SCH (10:15)
[2017-10-26] MEDS: Heparin Central Flush 100 UNIT/ML 5 ML Vial IV.FLUSH SCH (10:16)
[2017-10-26] MEDS: Duloxetine 60 MG DR Capsule PO SCH (10:17)
--- NOTE | 2017-10-26 12:05 | P.PNFP ---
Subjective Interval history: Patient seen and examined today. Denies nausea, vomiting, fever, chills, abdominal pain, chest pain, shortness of breath. Nurse reports that the patient is continued to pull at her dressings. Patient denies that she has been pulling on her dressings, unsure if she is doing in her sleep. <JaalexaSaeed Wallace - 10/26/17 13:48> Attending note patient seen with resident team. Much more alert today, conversive, makes good eye contact. Nurse reports several concerns regarding possible medications coming through the gastrointestinal tract unabsorbed, concerns the patient at times is scratching her wounds. Refer to resident's note for complete discussion of today's historical aspects of visit. <Manjinder Grant - 10/26/17 12:41> Results - Labs Result diagrams: 10/25/17 05:00 10/25/17 05:00 <RamonaSaeed Wallace - 10/26/17 12:05> Physical Exam Vital signs: Vital Signs 10/25/17 16:00 10/25/17 20:00 10/26/17 00:00 Temperature 98.5 F 98.5 F 97.9 F Pulse Rate 110 H 106 H 82 Respiratory Rate 19 18 18 Blood Pressure 110/78 137/69 139/75 Pulse Oximetry 99 98 10/26/17 04:00 10/26/17 07:35 10/26/17 07:55 Temperature 98.1 F 97.7 F Pulse Rate 110 H 107 H Respiratory Rate 18 16 Blood Pressure 140/70 136/68 Pulse Oximetry 100 99 98 10/26/17 12:00 Temperature 98.2 F Pulse Rate 112 H Respiratory Rate 16 Blood Pressure 143/70 H Pulse Oximetry 97 Intake & Output 10/25/17 10/26/17 10/26/17 18:59 06:59 18:59 Intake Total 2300 / 2300 1100 / 1100 100 / 100 Output Total 850 / 850 3050 / 3050 Balance 1450 / 1450 -1950 / -1950 100 / 100 Weight 112.1 kg Intake: IV 2300 / 2300 1100 / 1100 100 / 100 NS Inj 1,000 ML @ 100 mls/hr IV 2000 / 2000 1000 / 1000 .CONT .Q10H [facility] Rx#:[id number] Maxipime Inj 2,000 MG In NS Inj 300 / 300 100 / 100 100 / 100 100 ML @ 200 mls/hr IV.SIG Q8H [facility] Rx#:[id number] Output: Urine 1999 Stool 500 / 500 600 / 600 Urine Amount (Catheter) 350 / 350 400 / 400 Indwelling Urethral Catheter 350 / 350 400 / 400 Wound Drainage 50 / 50 ZAMZAM Drain 50 / 50 Other: Date of Last Bowel Movement 10/24/17 10/25/17 10/25/17 <Manjinder Grant - 10/26/17 12:36> Vital Signs 10/25/17 16:00 10/25/17 20:00 10/26/17 00:00 Temperature 98.5 F 98.5 F 97.9 F Pulse Rate 110 H 106 H 82 Respiratory Rate 19 18 18 Blood Pressure 110/78 137/69 139/75 Pulse Oximetry 99 98 10/26/17 04:00 10/26/17 07:35 10/26/17 07:55 Temperature 98.1 F 97.7 F Pulse Rate 110 H 107 H Respiratory Rate 18 16 Blood Pressure 140/70 136/68 Pulse Oximetry 100 99 98 Intake & Output 10/25/17 10/26/17 10/26/17 18:59 06:59 18:59 Intake Total 2300 / 2300 1100 / 1100 100 / 100 Output Total 850 / 850 3050 / 3050 Balance 1450 / 1450 -1950 / -1950 100 / 100 Weight 112.1 kg Intake: IV 2300 / 2300 1100 / 1100 100 / 100 NS Inj 1,000 ML @ 100 mls/hr IV 2000 / 2000 1000 / 1000 .CONT .Q10H [facility] Rx#:[id number] Maxipime Inj 2,000 MG In NS Inj 300 / 300 100 / 100 100 / 100 100 ML @ 200 mls/hr IV.SIG Q8H [facility] Rx#:[id number] Output: Urine 1999 Stool 500 / 500 600 / 600 Urine Amount (Catheter) 350 / 350 400 / 400 Indwelling Urethral Catheter 350 / 350 400 / 400 Wound Drainage 50 / 50 ZAMZAM Drain 50 / 50 Other: Date of Last Bowel Movement 10/24/17 10/25/17 10/25/17 <Saeed Greene - 10/26/17 12:05> Narrative: Vital signs noted, pulse increased afebrile Gen'l appearance: minimal eye contact, does attempt to respond to simple commands. HEENT- grossly non-localizing Lungs- diminished breath sounds at bases Cardiac- increase pulse rate, Abdoment : protuberant, soft, ZAMZAM lLQ, open crural wounds bilat. nedra vertical midline. LE- edematous distal, warm and dry, difficult to palpate actual pulses. Left knee increased effusion, no redness, is warm to touch. Patient voluntarily flexes left knee 10+ degrees from mildly flexed position. <Saeed Greene - 10/26/17 13:48> Vital signs noted: Afebrile, pulse 112/min respirations 16 General appearance: Middle-aged -[place] woman who appears to be resting comfortably, much more alert in conversation and verbal interactivity. HEENT: Nonlocalizing. Lungs: Diminished breath sounds in all areas, better aeration superiorly. Cardiac: S1-S2, no S3 or murmurs appreciated, heart sounds are distant. Abdomen: ZAMZAM drain from the left lateral abdomen, open wounds in the crural spaces bilaterally, midline vertical nedra. Extremities: Effusion about the left knee, edema distally bilaterally, feet are warm and dry. Please refer to resident exam for more complete discussion of details. <Manjinder Grant - 10/26/17 12:41> - Urinary Catheter Management Indwelling Urethral Catheter Cath placed during this visit: yes, but has since been removed by the nurse <Saeed Greene - 10/26/17 13:48> no <Manjinder Grant - 10/26/17 12:41> Reason for continuing: Severe pressure ulcer/wound <Saeed Greene - 12:05> Insertion date: 09/27/17 <Saeed Greene - 10/26/17 12:05> Insertion time: 08:20 <Saeed Greene 10/26/17 12:05> Removal date: 10/05/17 <Saeed Greene - 10/26/17 12:05> Removal time: 17:30 <Saeed Greene 10/26/17 12:05> Assessment and Plan - Assessment (1) Cellulitis of knee, left Code(s): L03.116 - Cellulitis of left lower limb Status: Acute (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 difficile diarrhea Code(s): A04.72 - Enterocolitis due to Clostridium difficile, not specified as recurrent Status: Acute (4) Fall Code(s): W19.XXXA - Unspecified fall, initial encounter Status: Acute (5) Fungal infection of skin of abdomen Code(s): B36.9 - Superficial mycosis, unspecified Status: Acute (6) Pneumonia Code(s): J18.9 - Pneumonia, unspecified organism Status: Resolved (7) Hypertension Code(s): I10 - Essential (primary) hypertension Status: Acute (8) Schizophrenia Code(s): F20.9 - Schizophrenia, unspecified Status: Chronic (9) Nutrition, metabolism, and development symptoms Code(s): R63.8 - Other symptoms and signs concerning food and fluid intake Status: Acute <GrantManjinder beltran - 10/26/17 12:36> (1) Cellulitis of knee, left Code(s): L03.116 - Cellulitis of left lower limb Status: Acute Plan: -ID consulted- recommend Cefepime IV until 11/08, vancomycin for cdiff -CT knee report unchanged, small effusion History: -levaquin stopped 10/20 per ID -Diflucan course completed 10/18 -s/p 2 weeks of Keflex 500mg po. evaluated by ortho with no changes to management recommended. Knee looks improved from reported exam on admission. Minimal swelling. No erythema. Non tender to palpation. Patient has been OOB with assistance S/p PICC line placement. 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 NGTD, cleared from ID standpoint to go home with IV abs -Orthopedics ([place] for Dr. 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 She completed rehabilitation and was discharged home August 23. Patient was on approximately 2 weeks of po Keflex 500 mg. Per Ortho, examination of left knee shows no evidence of infection. (3) C. difficile diarrhea Code(s): A04.72 - Enterocolitis due to Clostridium difficile, not specified as recurrent Status: Acute Plan: -C diff cultures positive, likely cause of leukocytosis -Vancomycin PO 125 4 times daily, day 4 of 10 -Continue with probiotics. -rectal tube replaced yesterday History: On admission patient presented with 3-day history of diarrhea in the setting of recent antibiotics. All bowel regimens held. Patient C. difficile negative on admission. (4) Fall Code(s): W19.XXXA - Unspecified fall, initial encounter Status: Acute Plan: Fell 10/19/17. No loss of consciousness, no head injury, left knee and ankle pain. -Knee x-ray- prosthesis in place, no frx noted -ankle x-ray- no frx noted (5) Fungal infection of skin of abdomen Code(s): B36.9 - Superficial mycosis, unspecified Status: Acute Plan: -Continue current course of antibiotics -Repeat CBC in a.m. -Will discuss with surgery today regarding when drain will be removed as patient is headed towards discharge to SNF -Specialty bed History: Surgical procedure 10/09, wound VAC applied. VAC changed 10/12 removed 10/15. (6) Pneumonia Code(s): J18.9 - Pneumonia, unspecified organism Status: Resolved Plan: Currently without symptoms of pneumonia -Continue to monitor vital signs -Continue incentive spirometry History: Patient found to have left lower lobe consolidation on chest CTA. Lungs CTAB today. She remains afebrile, with O2 sat WNL on room air. (7) Hypertension Code(s): I10 - Essential (primary) hypertension Status: Acute Plan: History of hypertension -continue to monitor (8) Schizophrenia Code(s): F20.9 - Schizophrenia, unspecified Status: Chronic Plan: -Psych consulted- recommend Continue Abilify 30 mg for psychosis, okay to continue buspirone 30 mg, trazodone 100 mg and Cymbalta 60 mg -Hold anticholinergics per Psych Patient with chronic history of schizophrenia. On admission patient presented with active hallucinations of seeing someone out to get her. No hallucinations over night (9) Nutrition, metabolism, and development symptoms Code(s): R63.8 - Other symptoms and signs concerning food and fluid intake Status: Acute Plan: Fluids: 100mls/hr Electrolytes: Replete as needed Nutrition: cardiac diet, continue to monitor po intake, supplement with ensure. Encouraged patient that she needed to increase p.o. intake in order to heal DVT prophylaxis: SCDs Continue to work with PT to get OOB <Saeed Greene - 10/26/17 13:48> - Assessment and Plan Clinical assessment: Patient remains extremely complex, continue supportive measures. Discussed the pros and cons of mittens for the patient's hands to decrease self injury, discussed pros and cons of palliative care, probably the capsules/pills being observed in the stool have been absorbed, may confirm with pharmacy, monitor electrolytes. Will review with case management regarding options. This is a long-term case, will literally be taking months to heal. Circumstances with the crural folds lend themselves to delayed healing and colonization with bacterial organisms. <Manjinder Grant - 10/26/17 12:41> Assessment/Plan: extremely complex middle age woman with probable hospital environment associated altered mental status. s/p left knee arthroplasty September 2017, bilat crural wounds with polymicrobial infection, leukocytosis 14.4 with left shift, anemia hgb 7.7, normal ammonia level and I>>O . Discussed at length with resident team and agree with resident team eval and plan as outlined. Manjinder Grant MD <Saeed Greene - 10/26/17 12:05> <Saeed Greene - Last Filed: 10/26/17 13:48> (6) Pneumonia Qualifiers: Pneumonia type: due to unspecified organism Laterality: left Lung location: lower lobe of lung Qualified Code(s): J18.1 - Lobar pneumonia, unspecified organism (7) Hypertension Qualifiers: Hypertension type: essential hypertension Qualified Code(s): I10 - Essential (primary) hypertension <Saeed Greene - [place] Filed: 10/26/17 13:48> (6) Pneumonia Qualifiers: Pneumonia type: due to unspecified organism Laterality: left Lung location: lower lobe of lung Qualified Code(s): J18.1 - Lobar pneumonia, unspecified organism (7) Hypertension Qualifiers: Hypertension type: essential hypertension Qualified Code(s): I10 - Essential (primary) hypertension
--- NOTE | 2017-10-26 15:07 | P.PNID ---
Subjective Remarks: ID coverage. Follow up. 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 Post op it appears she was discharged to a rehab. She was discharged from the rehab to home with her on August 23. Patient reports she lives at home with her who is on disability. Unsure of nature of disability at this time and his ability to take care of her. She was reportedly able to ambulate on her own initially followed by weakness and need for walker and then to a point where she did not want to get out of bed. It has been reported to others that she had some discharge at the left surgical site area and ortho surgeon prescribed oral keflex which reportedly lead to some improvement. She reportedly completed a week of antibiotic treatment with last day scheduled for today with some improvement in her knee pain. However her stated that she was starting to have more drainage from her knee just over the past day or so. He had pointed to several areas that had been draining pus from just above and just below the knee. He stated that a cup full of pus would drain at a time. Additionally the abdominal fold wounds appear to have been present for atleast 3 weeks now. With this background patient presented to the ED with complaints of worsening shortness of breath and mental status accompanied with symptoms of diarrhea (3 days, non-bloody) and decreased p.o. intake (5 days). She was also brought into the hospital due to infection of her knee that improved with Keflex p.o but now has returned with new additional drainage over the past few days. ID consulted for evaluation and Mment of Left knee prosthetic joint infection and neutropenia. Patient underwent incision and debridement of the inferior abdominal wall and proximal inner thighs on 10/12/2017. Receiving IV antibiotics for left knee infection/C difficile. CT scan showed small joint effusion and subcutaneous edema of the fat at the left knee. Patient is awake and alert and communicative. RN reports that she was somewhat confused earlier. She indicates to me that she wanted to get into a chair to sit down and they would not let her. She ate just a few spoonfuls of her lunch. She is reportedly eating very little. It is reported that there are pills coming through the stools which are undigested. She fell on the way to the bathroom 10/19/17. A tiny ulcerated area at the lower aspect of the left knee incision had a few droplets of clear serous fluid. Previously had purulent drainage on 10/19 and a culture had no growth. She has loose stools and rectal bag. Denies nausea vomiting. Denies chills. No fever. Antibiotics: Cefepime Vancomycin PO. Allergies/Adverse Reactions: Allergies amoxicillin Allergy (Verified 09/27/17 17:54) Swelling Objective Vital Signs 10/25/17 16:00 10/25/17 20:00 10/26/17 00:00 Temperature 98.5 F 98.5 F 97.9 F Pulse Rate 110 H 106 H 82 Respiratory Rate 19 18 18 Blood Pressure 110/78 137/69 139/75 Pulse Oximetry 99 98 10/26/17 04:00 10/26/17 07:35 10/26/17 07:55 Temperature 98.1 F 97.7 F Pulse Rate 110 H 107 H Respiratory Rate 18 16 Blood Pressure 140/70 136/68 Pulse Oximetry 100 99 98 10/26/17 08:00 10/26/17 12:00 Temperature 98.2 F Pulse Rate 108 H 108 H Respiratory Rate 16 Blood Pressure 143/70 H Pulse Oximetry 97 Intake & Output 10/25/17 10/26/17 10/26/17 18:59 06:59 18:59 Intake Total 2300 / 2300 1100 / 1100 100 / 100 Output Total 850 / 850 3050 / 3050 Balance 1450 / 1450 -1950 / -1950 100 / 100 Weight 112.1 kg Intake: IV 2300 / 2300 1100 / 1100 100 / 100 NS Inj 1,000 ML @ 100 mls/hr IV 1999 / 1999 1000 / 1000 .CONT .Q10H [facility] Rx#:[id number] Maxipime Inj 2,000 MG In NS Inj 300 / 300 100 / 100 100 / 100 100 ML @ 200 mls/hr IV.SIG Q8H [facility] Rx#:[id number] Output: Urine 1999 Stool 500 / 500 600 / 600 Urine Amount (Catheter) 350 / 350 400 / 400 Indwelling Urethral Catheter 350 / 350 400 / 400 Wound Drainage 50 / 50 ZAMZAM Drain 50 / 50 Other: Date of Last Bowel Movement 10/24/17 10/25/17 10/25/17 10/24/17 17:30 Blood - Peripheral Aerobic Blood Culture - Preliminary No growth in 2 days 10/24/17 17:30 Blood - Peripheral Anaerobic Blood Culture - Preliminary No growth in 2 days 10/24/17 17:40 Blood - Peripheral Aerobic Blood Culture - Preliminary No growth in 2 days 10/24/17 17:40 Blood - Peripheral Anaerobic Blood Culture - Preliminary No growth in 2 days 10/09/17 15:49 Tissue - Abdominal Fungal Smear - Final No fungal elements seen 10/09/17 15:49 Tissue - Abdominal Fungal Culture - Preliminary No growth in 2 weeks 10/09/17 15:49 Tissue - Abdominal Acid Fast Bacilli Smear - Final No acid fast bacilli seen 10/09/17 15:49 Tissue - Abdominal Mycobacterial Culture - Preliminary No growth in 2 weeks Lab - Hematology Results 10/25/17 05:00 WBC 14.4 H RBC 2.78 L Hgb 7.7 L Hct 23.1 L MCV 83.0 MCH 27.6 MCHC 33.3 RDW 17.1 Plt Count 390 MPV 6.7 L Neut % (Auto) 76.2 H Lymph % (Auto) 11.8 [place] % (Auto) 9.1 H Eos % (Auto) 1.9 Baso % (Auto) 1.0 Neut # (Auto) 11.0 H Lymph # (Auto) 1.7 [place] # (Auto) 1.3 H Eos # (Auto) 0.3 Baso # (Auto) 0.1 WBC Differential . Differential Comment Auto diff final Lab - Chemistry Results 10/25/17 10/25/17 05:00 05:00 Sodium 140 Potassium 3.8 Chloride 112 H Carbon Dioxide 21.5 Anion Gap 7 BUN 7 Creatinine 0.42 L Estimated GFR Greater than 89 Random Glucose 67 L Calcium 7.5 L Total Bilirubin 0.4 AST 14 L ALT 16 Alkaline Phosphatase 165 H Ammonia 11 Total Protein 4.8 L Albumin 1.0 L Imaging: ITS Impressions Tibia/Fibula X-Ray 09/27/17 00:00 CONCLUSION: No acute left leg abnormality is identified. Abdomen/Pelvis CT 09/27/17 08:10 CONCLUSION: 1. Mild hepatic steatosis. 2. Thickening of the colon secondary to lack of distention versus colitis. 3. Left lower lobe consolidation and/or atelectasis. There does appear to be a 1.4 cm cavitary area which makes consolidation likely. Head CT 09/27/17 08:10 CONCLUSION: No acute intracranial abnormality is seen. Chest CTA 09/27/17 08:22 CONCLUSION: 1. No pulmonary embolus. 2. Consolidation or atelectasis at the left lower lobe. Venous Doppler Study 09/29/17 00:00 CONCLUSION: No evidence of deep venous thrombosis. Knee CT 10/18/17 00:00 CONCLUSION: 1. Small joint effusion. 2. Nonspecific subcutaneous edema in the subcutaneous soft tissues above and below the knee. 3. No significant changes compared to the prior exam. Ankle X-Ray 10/19/17 00:00 CONCLUSION: 1. No acute fracture or dislocation. Knee X-Ray 10/19/17 00:00 CONCLUSION: 1. Total knee prosthesis in place. 2. Moderate-sized knee joint effusion. Chest X-Ray 10/24/17 00:00 CONCLUSION: No acute cardiopulmonary disease. Physical Exam: GENERAL: Alert and oriented, no acute distress. HEENT: Pupils reactive to light. Extraocular movements intact. No icterus. NECK: Supple without adenopathy. No swelling. LUNGS: Decreased breath sounds. HEART: Regular S1 and S2 without murmurs or rubs or gallops. ABDOMEN: Obese, soft. Nontender. Postoperative abdominal incisions with nedra in place along the thighs and inferior abdomen wall. ZAMZAM in abdominal wound bed has little serous drainage. EXTREMITIES: swelling of the left knee. less warmth. Tiny hole a couple millimeters at the lower aspect of the knee surgical incision. Purulent drainage on noted 10/19. Occasional droplets of clear serous fluid. SKIN: No diffuse rash. NEUROLOGIC: Awake and alert and oriented. Nonfocal. PSYCH: Pleasant, calm and cooperative. Assessment and Plan - Plan IMPRESSION: Neutropenic sepsis WBC now elevated. Receive Neupogen but the white blood cell count did not plateau is continuing to rise. Possibly secondary to infection. Leucopenia, pancytopenia: ? MTX, ? Psych meds, ? Sepsis contributing. Abdominal fold cellulitis/skin breakdown. Post incision and debridement and closure of skin fold. General surgery following. She dispose any panniculectomy. Groin cellulitis, Mons pubis cellulitis/skin breakdown. Neurosurgery following. H/o fall with scraping of left knee. Left knee hardware in place. CT with fluid collection. Left knee infection - prior wound culture had Pseudomonas and group B beta strep. Repeat culture had no growth. Diarrhea - Positive C. difficile. RECOMMENDATIONS: Continue Cefepime IV for the left knee infection to complete 6 weeks until November 08, 2017. Continue Vancomycin for C. difficile treat until completion of cefepime. Her nutrition needs to be addressed.
[2017-10-26 16:58] LABS: Hematocrit 22.3 % (35.0-46.0); Hemoglobin 7.5 gm/dL (11.6-15.3); Mean Corpuscular HGB Conc 33.8 % (32.0-36.0); Mean Corpuscular Hemoglobin 27.9 pg (27.0-34.0); Mean Corpuscular Volume 82.7 fL (80.0-100.0); Platelet Count 379 th/mm3 (150-450); Red Blood Count 2.69 mil/mm3 (4.00-5.30); White Blood Count 13.9 th/mm3 (4.0-11.0)
[2017-10-26 17:23] LABS: Anion Gap 7 meq/L (5-15); Blood Urea Nitrogen 7 mg/dL (7-18); Calcium 7.3 mg/dL (8.5-10.1); Carbon Dioxide 22.7 meq/L (21.0-32.0); Chloride 111 meq/L (98-107); Glomerular Filtration Rate Greater Than 89 mL/min (>89); Glucose,Random 86 mg/dL (74-106); Potassium 3.1 meq/L (3.5-5.1); Sodium 141 meq/L (136-145)
[2017-10-26 17:46] LABS: Total Protein 4.7 g/dL (6.4-8.2)
[2017-10-26] MEDS: Lactobacillus Acidophilus/L. Spores Tablet PO SCH (22:09)
[2017-10-27] MEDS: Sod Chloride 0.9% Inj 1,000 ML IV.CONT SCH (06:43)
[2017-10-27] MEDS: dilTIAZem 60 MG Tablet PO SCH ×3 (09:51→19:44)
[2017-10-27] MEDS: Pantoprazole Sodium 20 MG DR Tablet PO SCH (09:51)
[2017-10-27] MEDS: Folic Acid 1 MG Tablet PO SCH (09:51)
[2017-10-27] MEDS: traZODone 100 MG Tablet PO SCH (09:51)
[2017-10-27] MEDS: Duloxetine 60 MG DR Capsule PO SCH (09:51)
[2017-10-27] MEDS: Lactobacillus Acidophilus/L. Spores Tablet PO SCH ×2 (09:51→23:58)
[2017-10-27] MEDS: Metoprolol Tartrate 25 MG Tablet PO SCH ×2 (09:52→23:58)
[2017-10-27] MEDS: Heparin Central Flush 100 UNIT/ML 5 ML Vial IV.FLUSH SCH (09:53)
[2017-10-27] MEDS: Potassium Chlor 10 mEq Premix 10 MEQ/100 ML PIGGYBACK IV.SIG SCH ×2 (10:10→11:23)
--- NOTE | 2017-10-27 10:18 | P.PNFP ---
Subjective Interval history: Patient seen and examined this morning. No acute events overnight. Denies nausea, vomiting, fever chills, abdominal pain, chest pain, shortness of breath. She reports she is drinking her Ensure. No other complaints today. Results - Labs Result diagrams: 10/26/17 16:21 10/26/17 16:21 Abnormal lab results 10/26/17 10/26/17 Range/Units 16:21 16:21 WBC 13.9 H (4.0-11.0) th/mm3 RBC 2.69 L (4.00-5.30) mil/mm3 Hgb 7.5 L (11.6-15.3) gm/dL Hct 22.3 L (35.0-46.0) % Potassium 3.1 L (3.5-5.1) meq/L Chloride 111 H (98-107) meq/L Calcium 7.3 L* (8.5-10.1) mg/dL Total Protein 4.7 L (6.4-8.2) g/dL Short CBC 10/26/17 Range/Units 16:21 WBC 13.9 H (4.0-11.0) th/mm3 Hgb 7.5 L (11.6-15.3) gm/dL Hct 22.3 L (35.0-46.0) % Plt Count 379 (150-450) th/mm3 BMP 10/26/17 16:21 Sodium 141 Potassium 3.1 L Chloride 111 H Carbon Dioxide 22.7 BUN 7 Creatinine 0.57 Calcium 7.3 L* Physical Exam Vital signs: Vital Signs 10/26/17 12:00 10/26/17 16:00 10/26/17 20:00 Temperature 98.2 F 97.5 F L 99.3 F Pulse Rate 108 H 119 H 100 H Respiratory Rate 16 19 18 Blood Pressure 143/70 H 128/76 133/77 Pulse Oximetry 97 96 98 10/26/17 23:16 10/27/17 00:00 10/27/17 00:25 Temperature 97.6 F Pulse Rate 113 H Respiratory Rate 18 Blood Pressure 126/81 Pulse Oximetry 97 98 10/27/17 04:00 10/27/17 08:00 Temperature 98.0 F 96.7 F L Pulse Rate 95 H 132 H Respiratory Rate 18 20 Blood Pressure 139/78 173/99 H Pulse Oximetry 98 99 Intake & Output 10/26/17 10/27/17 10/27/17 18:59 06:59 18:59 Intake Total 1200 / 1200 1100 / 1100 Output Total 925 / 925 830 / 830 Balance 275 / 275 270 / 270 Weight 106.3 kg Intake: IV 1200 / 1200 1100 / 1100 NS Inj 1,000 ML @ 100 mls/hr IV 1000 / 1000 1000 / 1000 .CONT .Q10H [facility] Rx#:[id number] Maxipime Inj 2,000 MG In NS Inj 200 / 200 100 / 100 100 ML @ 200 mls/hr IV.SIG Q8H [facility] Rx#:[id number] Output: Urine 800 / 800 Stool 400 / 400 Urine Amount (Catheter) 500 / 500 Indwelling Urethral Catheter 500 / 500 Wound Drainage ZAMZAM Drain Other: Date of Last Bowel Movement 10/25/17 10/26/17 Narrative: Vital signs noted, pulse increased afebrile Gen'l appearance: minimal eye contact, does attempt to respond to simple commands. HEENT- grossly non-localizing Lungs- diminished breath sounds at bases Cardiac- increase pulse rate, Abdoment : protuberant, soft, ZAMZAM lLQ, open crural wounds bilat. nedra vertical midline. LE- edematous distal, warm and dry, difficult to palpate actual pulses. Left knee increased effusion, no redness, is warm to touch. Patient voluntarily flexes left knee 10+ degrees from mildly flexed position. - Urinary Catheter Management Indwelling Urethral Catheter Cath placed during this visit: yes, but has since been removed by the nurse Reason for continuing: Severe pressure ulcer/wound Insertion date: 09/27/17 Insertion time: 08: Removal date: 10/05/17 Removal time: 17:30 Assessment and Plan - Assessment (1) Cellulitis of knee, left Code(s): L03.116 - Cellulitis of left lower limb Status: Acute Plan: -ID consulted- recommend Cefepime IV until 11/08, vancomycin for cdiff -CT knee report unchanged, small effusion History: -levaquin stopped 10/20 per ID -Diflucan course completed 10/18 -s/p 2 weeks of Keflex 500mg po. evaluated by ortho with no changes to management recommended. Knee looks improved from reported exam on admission. Minimal swelling. No erythema. Non tender to palpation. Patient has been OOB with assistance S/p PICC line placement. 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 NGTD, cleared from ID standpoint to go home with IV abs -Orthopedics ([place] for Dr. 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 She completed rehabilitation and was discharged home August 23. Patient was on approximately 2 weeks of po Keflex 500 mg. Per Ortho, examination of left knee shows no evidence of infection. (3) C. difficile diarrhea Code(s): A04.72 - Enterocolitis due to Clostridium difficile, not specified as recurrent Status: Acute Plan: -C diff cultures positive, likely cause of leukocytosis -Vancomycin PO 125 4 times daily, day 4 of 10 -Continue with probiotics. -rectal tube replaced yesterday History: On admission patient presented with 3-day history of diarrhea in the setting of recent antibiotics. All bowel regimens held. Patient C. difficile negative on admission. (4) Fall Code(s): W19.XXXA - Unspecified fall, initial encounter Status: Acute Plan: Fell 10/19/17. No loss of consciousness, no head injury, left knee and ankle pain. -Knee x-ray- prosthesis in place, no frx noted -ankle x-ray- no frx noted (5) Fungal infection of skin of abdomen Code(s): B36.9 - Superficial mycosis, unspecified Status: Acute Plan: -Continue current course of antibiotics -Repeat CBC in a.m. -Will discuss with surgery today regarding when drain will be removed as patient is headed towards discharge to SNF -Specialty bed History: Surgical procedure 10/09, wound VAC applied. VAC changed 10/12 removed 10/15. (6) Pneumonia Code(s): J18.9 - Pneumonia, unspecified organism Status: Resolved Plan: Currently without symptoms of pneumonia -Continue to monitor vital signs -Continue incentive spirometry History: Patient found to have left lower lobe consolidation on chest CTA. Lungs CTAB today. She remains afebrile, with O2 sat WNL on room air. (7) Hypertension Code(s): I10 - Essential (primary) hypertension Status: Acute Plan: History of hypertension -continue to monitor (8) Schizophrenia Code(s): F20.9 - Schizophrenia, unspecified Status: Chronic Plan: -Psych consulted- recommend Continue Abilify 30 mg for psychosis, okay to continue buspirone 30 mg, trazodone 100 mg and Cymbalta 60 mg -Hold anticholinergics per Psych Patient with chronic history of schizophrenia. On admission patient presented with active hallucinations of seeing someone out to get her. No hallucinations over night (9) Nutrition, metabolism, and development symptoms Code(s): R63.8 - Other symptoms and signs concerning food and fluid intake Status: Acute Plan: Fluids: 100mls/hr Electrolytes: Replete as needed Nutrition: cardiac diet, continue to monitor po intake, supplement with ensure. Encouraged patient that she needed to increase p.o. intake in order to heal DVT prophylaxis: SCDs Continue to work with PT to get OOB (6) Pneumonia Qualifiers: Pneumonia type: due to unspecified organism Laterality: left Lung location: lower lobe of lung Qualified Code(s): J18.1 - Lobar pneumonia, unspecified organism (7) Hypertension Qualifiers: Hypertension type: essential hypertension Qualified Code(s): I10 - Essential (primary) hypertension
[2017-10-27 15:29] LABS: Baso # (Auto) 0.1 th/mm3 (0.0-0.2); Baso % (Auto) 0.9 % (0.0-2.0); Eos # (Auto) 0.2 th/mm3 (0.0-0.4); Eos % (Auto) 1.6 % (0.0-4.0); Hematocrit 23.5 % (35.0-46.0); Hemoglobin 8.1 gm/dL (11.6-15.3); Lymph # (Auto) 1.4 th/mm3 (1.0-4.8); Lymph % (Auto) 11.1 % (9.0-44.0); Mean Corpuscular HGB Conc 34.3 % (32.0-36.0); Mean Corpuscular Hemoglobin 28.1 pg (27.0-34.0); Mean Corpuscular Volume 82.1 fL (80.0-100.0); Mean Platelet Volume 7.8 fL (7.0-11.0); Mono % (Auto) 8.2 % (0.0-8.0); Neut # (Auto) 9.6 th/mm3 (1.8-7.7); Neut % (Auto) 78.2 % (16.0-70.0); Platelet Count 370 th/mm3 (150-450); Red Blood Count 2.87 mil/mm3 (4.00-5.30); Red Cell Distribution Width 16.9 % (11.6-17.2); White Blood Count 12.3 th/mm3 (4.0-11.0)
[2017-10-27 15:40] LABS: Anion Gap 8 meq/L (5-15); Blood Urea Nitrogen 7 mg/dL (7-18); Calcium 7.2 mg/dL (8.5-10.1); Carbon Dioxide 22.5 meq/L (21.0-32.0); Chloride 112 meq/L (98-107); Glomerular Filtration Rate Greater Than 89 mL/min (>89); Glucose,Random 80 mg/dL (74-106)
[2017-10-27 15:44] LABS: Potassium 3.6 meq/L (3.5-5.1); Sodium 142 meq/L (136-145)
[2017-10-27 16:02] LABS: Total Protein 4.7 g/dL (6.4-8.2)
[2017-10-28] MEDS: Sod Chloride 0.9% Inj 1,000 ML IV.CONT SCH ×3 (00:12→21:35)
[2017-10-28] MEDS: Metoprolol Tartrate 25 MG Tablet PO SCH ×2 (08:01→21:33)
[2017-10-28] MEDS: Pantoprazole Sodium 20 MG DR Tablet PO SCH (08:02)
[2017-10-28] MEDS: Folic Acid 1 MG Tablet PO SCH (08:02)
[2017-10-28] MEDS: Lactobacillus Acidophilus/L. Spores Tablet PO SCH ×2 (08:02→21:34)
[2017-10-28] MEDS: Duloxetine 60 MG DR Capsule PO SCH (08:02)
[2017-10-28] MEDS: traZODone 100 MG Tablet PO SCH (08:02)
[2017-10-28] MEDS: dilTIAZem 60 MG Tablet PO SCH ×3 (08:02→18:38)
[2017-10-28 08:12] LABS: Baso # (Auto) 0.1 th/mm3 (0.0-0.2); Baso % (Auto) 0.9 % (0.0-2.0); Eos # (Auto) 0.2 th/mm3 (0.0-0.4); Eos % (Auto) 1.4 % (0.0-4.0); Hematocrit 22.4 % (35.0-46.0); Hemoglobin 7.5 gm/dL (11.6-15.3); Lymph # (Auto) 1.5 th/mm3 (1.0-4.8); Lymph % (Auto) 11.3 % (9.0-44.0); Mean Corpuscular HGB Conc 33.5 % (32.0-36.0); Mean Corpuscular Hemoglobin 27.7 pg (27.0-34.0); Mean Corpuscular Volume 82.8 fL (80.0-100.0); Mean Platelet Volume 7.2 fL (7.0-11.0); Mono # (Auto) 1.1 th/mm3 (0.0-0.9); Mono % (Auto) 8.3 % (0.0-8.0); Neut # (Auto) 10.2 th/mm3 (1.8-7.7); Neut % (Auto) 78.1 % (16.0-70.0); Platelet Count 383 th/mm3 (150-450); Red Cell Distribution Width 16.8 % (11.6-17.2); White Blood Count 13.1 th/mm3 (4.0-11.0)
[2017-10-28] MEDS: Heparin Central Flush 100 UNIT/ML 5 ML Vial IV.FLUSH SCH (08:19)
[2017-10-28 08:46] LABS: Anion Gap 6 meq/L (5-15); Blood Urea Nitrogen 7 mg/dL (7-18); Calcium 7.7 mg/dL (8.5-10.1); Carbon Dioxide 23.3 meq/L (21.0-32.0); Chloride 113 meq/L (98-107); Glomerular Filtration Rate Greater Than 89 mL/min (>89); Glucose,Random 86 mg/dL (74-106); Sodium 142 meq/L (136-145)
[2017-10-28 08:49] LABS: Potassium 2.9 meq/L (3.5-5.1)
--- NOTE | 2017-10-28 09:42 | P.PNFP ---
Subjective Interval history: Ms. Mcclain was seen on rounds today. She seems brighter and more conversive today than previously this week. She reports that she has been eating without difficulties. She denies any chest pain, difficulty breathing, diarrhea, abdominal pain, knee pain. <Patsy Baxter E - 10/28/17 09:41> Results - Labs Result diagrams: 10/28/17 07:15 10/28/17 07:15 <Manjinder Grant E - 10/28/17 11:03> Abnormal lab results 10/27/17 10/27/17 10/28/17 Range/Units 14:29 14:29 07:15 WBC 12.3 H 13.1 H (4.0-11.0) th/mm3 RBC 2.87 L 2.70 L (4.00-5.30) mil/mm3 Hgb 8.1 L 7.5 L (11.6-15.3) gm/dL Hct 23.5 L 22.4 L (35.0-46.0) % Neut % (Auto) 78.2 H 78.1 H (16.0-70.0) % [place] % (Auto) 8.2 H 8.3 H (0.0-8.0) % Neut # (Auto) 9.6 H 10.2 H (1.8-7.7) th/mm3 [place] # (Auto) 1.0 H 1.1 H (0.0-0.9) th/mm3 Potassium (3.5-5.1) meq/L Chloride 112 H (98-107) meq/L Calcium 7.2 L* (8.5-10.1) mg/dL Total Protein 4.7 L (6.4-8.2) g/dL 10/28/17 Range/Units 07:15 WBC (4.0-11.0) th/mm3 RBC (4.00-5.30) mil/mm3 Hgb (11.6-15.3) gm/dL Hct (35.0-46.0) % Neut % (Auto) (16.0-70.0) % [place] % (Auto) (0.0-8.0) % Neut # (Auto) (1.8-7.7) th/mm3 [place] # (Auto) (0.0-0.9) th/mm3 Potassium 2.9 L* (3.5-5.1) meq/L Chloride 113 H (98-107) meq/L Calcium 7.7 L (8.5-10.1) mg/dL Total Protein (6.4-8.2) g/dL Short CBC 10/27/17 10/28/17 Range/Units 14:29 07:15 WBC 12.3 H 13.1 H (4.0-11.0) th/mm3 Hgb 8.1 L 7.5 L (11.6-15.3) gm/dL Hct 23.5 L 22.4 L (35.0-46.0) % Plt Count 370 383 (150-450) th/mm3 BMP 10/27/17 10/28/17 14:29 07:15 Sodium 142 142 Potassium 3.6 2.9 L* Chloride 112 H 113 H Carbon Dioxide 22.5 23.3 BUN 7 7 Creatinine 0.56 0.56 Calcium 7.2 L* 7.7 L <Manjinder Grant - 10/28/17 11:03> Abnormal lab results 10/27/17 10/27/17 10/28/17 Range/Units 14:29 14:29 07:15 WBC 12.3 H 13.1 H (4.0-11.0) th/mm3 RBC 2.87 L 2.70 L (4.00-5.30) mil/mm3 Hgb 8.1 L 7.5 L (11.6-15.3) gm/dL Hct 23.5 L 22.4 L (35.0-46.0) % Neut % (Auto) 78.2 H 78.1 H (16.0-70.0) % [place] % (Auto) 8.2 H 8.3 H (0.0-8.0) % Neut # (Auto) 9.6 H 10.2 H (1.8-7.7) th/mm3 [place] # (Auto) 1.0 H 1.1 H (0.0-0.9) th/mm3 Potassium (3.5-5.1) meq/L Chloride 112 H (98-107) meq/L Calcium 7.2 L* (8.5-10.1) mg/dL Total Protein 4.7 L (6.4-8.2) g/dL 10/28/17 Range/Units 07:15 WBC (4.0-11.0) th/mm3 RBC (4.00-5.30) mil/mm3 Hgb (11.6-15.3) gm/dL Hct (35.0-46.0) % Neut % (Auto) (16.0-70.0) % [place] % (Auto) (0.0-8.0) % Neut # (Auto) (1.8-7.7) th/mm3 [place] # (Auto) (0.0-0.9) th/mm3 Potassium 2.9 L* (3.5-5.1) meq/L Chloride 113 H (98-107) meq/L Calcium 7.7 L (8.5-10.1) mg/dL Total Protein (6.4-8.2) g/dL Short CBC 10/27/17 10/28/17 Range/Units 14:29 07:15 WBC 12.3 H 13.1 H (4.0-11.0) th/mm3 Hgb 8.1 L 7.5 L (11.6-15.3) gm/dL Hct 23.5 L 22.4 L (35.0-46.0) % Plt Count 370 383 (150-450) th/mm3 [facility] 10/27/17 10/28/17 14:29 07:15 Sodium 142 142 Potassium 3.6 2.9 L* Chloride 112 H 113 H Carbon Dioxide 22.5 23.3 BUN 7 7 Creatinine 0.56 0.56 Calcium 7.2 L* 7.7 L <Patsy Baxter - 10/28/17 09:41> Physical Exam Vital signs: Vital Signs 10/27/17 12:00 10/27/17 16:00 10/27/17 20:00 Temperature 97.7 F 97.5 F L 97.8 F Pulse Rate 102 H 104 H 113 H Respiratory Rate 20 20 15 Blood Pressure 153/93 H 145/82 H 143/75 H Pulse Oximetry 99 98 100 10/28/17 00:00 10/28/17 04:00 10/28/17 08:00 Temperature 97.3 F L 97.4 F L 98.3 F Pulse Rate 92 H 60 106 H Respiratory Rate 18 18 20 Blood Pressure 137/73 132/76 147/86 H Pulse Oximetry 100 100 98 Intake & Output 10/27/17 10/28/17 10/28/17 18:59 06:59 18:59 Intake Total 2260 / 2260 200 / 200 Output Total 550 / 550 1200 / 1200 Balance 1710 / 1710 -1000 / -1000 Weight 149.86 kg Intake: IV 1300 / 1300 200 / 200 NS Inj 1,000 ML @ 100 mls/hr IV 1000 / 1000 .CONT .Q10H [facility] Rx#:[id number] Maxipime Inj 2,000 MG In NS Inj 200 / 200 100 / 100 100 ML @ 200 mls/hr IV.SIG Q8H [facility] Rx#:[id number] KCl 10 mEq Premix Inj 10 meq In 100 / 100 100 ml @ 100 mls/hr IV.SIG Q1H [facility] Rx#:[id number] Oral 960 / 960 Output: Urine 550 / 550 1200 / 1200 Other: Date of Last Bowel Movement 10/26/17 10/27/17 <Manjinder Grant - 10/28/17 11:03> Vital Signs 10/27/17 12:00 10/27/17 16:00 10/27/17 20:00 Temperature 97.7 F 97.5 F L 97.8 F Pulse Rate 102 H 104 H 113 H Respiratory Rate 20 20 15 Blood Pressure 153/93 H 145/82 H 143/75 H Pulse Oximetry 99 98 100 10/28/17 00:00 10/28/17 04:00 Temperature 97.3 F L 97.4 F L Pulse Rate 92 H 60 Respiratory Rate 18 18 Blood Pressure 137/73 132/76 Pulse Oximetry 100 100 Intake & Output 10/27/17 10/28/17 10/28/17 18:59 06:59 18:59 Intake Total 2260 / 2260 200 / 200 Output Total 550 / 550 1200 / 1200 Balance 1710 / 1710 -1000 / -1000 Weight 149.86 kg Intake: IV 1300 / 1300 200 / 200 NS Inj 1,000 ML @ 100 mls/hr IV 1000 / 1000 .CONT .Q10H [facility] Rx#:[id number] Maxipime Inj 2,000 MG In NS Inj 200 / 200 100 / 100 100 ML @ 200 mls/hr IV.SIG Q8H [facility] Rx#:[id number] KCl 10 mEq Premix Inj 10 meq In 100 / 100 100 ml @ 100 mls/hr IV.SIG Q1H [facility] Rx#:[id number] Oral 960 / 960 Output: Urine 550 / 550 1200 / 1200 Other: Date of Last Bowel Movement 10/26/17 10/27/17 <Patsy Baxter - 10/28/17 09:41> Narrative: Gen'l appearance: Patient is communicative and smiling this a.m. patient on bed to relieve pressure Neurologic- mild upper extremity tremor noted bilaterally HEENT- grossly non-localizing Lungs- diminished breath sounds at bases Cardiac-regular rhythm, mildly tachycardic. Abdomen : protuberant, soft, ZAMZAM lLQ, open crural wounds bilat. nedra vertical midline. Open incision sites on sides of abdomen bilaterally, draining clear fluid. Dressings over wounds saturated. LE- edematous distal, warm and dry, difficult to palpate actual pulses. Left knee increased effusion, no redness, is warm to touch. Mild amount of bleeding from open site over previous incision <Patsy Baxter - 10/28/17 09:41> - Urinary Catheter Management Indwelling Urethral Catheter Cath placed during this visit: no <Manjinder Grant - 10/28/17 11:03> yes, but has since been removed by the nurse <Patsy Baxter - 10/28/17 09:41> Reason for continuing: Severe pressure ulcer/wound <Patsy Baxter - 10/28/17 09:41> Insertion date: 09/27/17 <Patsy Baxter 10/28/17 09:41> Insertion time: 08:20 <Patsy Baxter 10/28/17 09:41> Removal date: 10/05/17 <Patsy Baxter 10/28/17 09:41> Removal time: 17:30 <Patsy Bxater 10/28/17 09:41> Assessment and Plan - Assessment (1) Cellulitis of knee, left Code(s): L03.116 - Cellulitis of left lower limb Status: Acute (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 difficile diarrhea Code(s): A04.72 - Enterocolitis due to Clostridium difficile, not specified as recurrent Status: Acute (4) Fall Code(s): W19.XXXA - Unspecified fall, initial encounter Status: Acute (5) Fungal infection of skin of abdomen Code(s): B36.9 - Superficial mycosis, unspecified Status: Acute (6) Pneumonia Code(s): J18.9 - Pneumonia, unspecified organism Status: Resolved (7) Hypertension Code(s): I10 - Essential (primary) hypertension Status: Acute (8) Schizophrenia Code(s): F20.9 - Schizophrenia, unspecified Status: Chronic (9) Nutrition, metabolism, and development symptoms Code(s): R63.8 - Other symptoms and signs concerning food and fluid intake Status: Acute <Manjinder Grant - 10/28/17 11:03> (1) Cellulitis of knee, left Code(s): L03.116 - Cellulitis of left lower limb Status: Acute Plan: -ID consulted- recommend Cefepime IV until 11/08, vancomycin for cdiff -CT knee report unchanged, small effusion History: -levaquin stopped 10/20 per ID -Diflucan course completed 10/18 -s/p 2 weeks of Keflex 500mg po. evaluated by ortho with no changes to management recommended. Knee looks improved from reported exam on admission. Minimal swelling. No erythema. Non tender to palpation. Patient has been OOB with assistance S/p PICC line placement. 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 NGTD, cleared from ID standpoint to go home with IV abs -Orthopedics ([place] for Dr. 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 She completed rehabilitation and was discharged home August 23. Patient was on approximately 2 weeks of po Keflex 500 mg. Per Ortho, examination of left knee shows no evidence of infection. (3) C. difficile diarrhea Code(s): A04.72 - Enterocolitis due to Clostridium difficile, not specified as recurrent Status: Acute Plan: -C diff cultures positive, likely cause of leukocytosis -Vancomycin PO 125 4 times daily, day 6 of 10 -Continue with probiotics. -rectal tube in place History: On admission patient presented with 3-day history of diarrhea in the setting of recent antibiotics. All bowel regimens held. Patient C. difficile negative on admission. (4) Fall Code(s): W19.XXXA - Unspecified fall, initial encounter Status: Acute Plan: Fell 10/19/17. No loss of consciousness, no head injury, left knee and ankle pain. -Knee x-ray- prosthesis in place, no frx noted -ankle x-ray- no frx noted (5) Fungal infection of skin of abdomen Code(s): B36.9 - Superficial mycosis, unspecified Status: Acute Plan: -Continue current course of antibiotics -Repeat CBC in a.m. -Specialty bed History: Surgical procedure 10/09, wound VAC applied. VAC changed 10/12 removed 10/15. (6) Pneumonia Code(s): J18.9 - Pneumonia, unspecified organism Status: Resolved Plan: Currently without symptoms of pneumonia -Continue to monitor vital signs -Continue incentive spirometry History: Patient found to have left lower lobe consolidation on chest CTA. Lungs CTAB today. She remains afebrile, with O2 sat WNL on room air. (7) Hypertension Code(s): I10 - Essential (primary) hypertension Status: Acute Plan: History of hypertension -continue to monitor (8) Schizophrenia Code(s): F20.9 - Schizophrenia, unspecified Status: Chronic Plan: -Psych consulted- recommend Continue Abilify 30 mg for psychosis, okay to continue buspirone 30 mg, trazodone 100 mg and Cymbalta 60 mg -Hold anticholinergics per Psych Patient with chronic history of schizophrenia. On admission patient presented with active hallucinations of seeing someone out to get her. No hallucinations over night (9) Nutrition, metabolism, and development symptoms Code(s): R63.8 - Other symptoms and signs concerning food and fluid intake Status: Acute Plan: Fluids: 100mls/hr Electrolytes: Replete as needed. Patient p.o. potassium does not seem to be digesting appropriately. On hold for now with replacement IV. Nutrition: cardiac diet, continue to monitor po intake, supplement with ensure. Encouraged patient that she needed to increase p.o. intake in order to heal DVT prophylaxis: SCDs Continue to work with PT to get OOB <Patsy Baxter E - 10/28/17 09:34> - Assessment and Plan Attending note: Patient seen and examined with the resident and nurse present. Complex patient with regards to her crural wounds, vacuum drainage, mental status that is a pleasant delirium, does not engage. Multiple associated infections. Overall prognosis is guarded and that the patient does not engage in her own self-care. Appreciate consultations by specialist. Agree with orders as written by resident. Manjinder Grant MD 10/28/2017. <Manjinder Grant E - 10/28/17 11:03> Discussed Condition With: Dr Grant <Patsy Baxter E - 10/28/17 09:41> <Patsy Baxter E - Last Filed: 10/28/17 09:34> (6) Pneumonia Qualifiers: Pneumonia type: due to unspecified organism Laterality: left Lung location: lower lobe of lung Qualified Code(s): J18.1 - Lobar pneumonia, unspecified organism (7) Hypertension Qualifiers: Hypertension type: essential hypertension Qualified Code(s): I10 - Essential (primary) hypertension <Manjinder Grant E - Last Filed: 10/28/17 11:03> (6) Pneumonia Qualifiers: Pneumonia type: due to unspecified organism Laterality: left Lung location: lower lobe of lung Qualified Code(s): J18.1 - Lobar pneumonia, unspecified organism (7) Hypertension Qualifiers: Hypertension type: essential hypertension Qualified Code(s): I10 - Essential (primary) hypertension <Patsy Baxter E - Last Filed: 10/28/17 09:34> (6) Pneumonia Qualifiers: Pneumonia type: due to unspecified organism Laterality: left Lung location: lower lobe of lung Qualified Code(s): J18.1 - Lobar pneumonia, unspecified organism (7) Hypertension Qualifiers: Hypertension type: essential hypertension Qualified Code(s): I10 - Essential (primary) hypertension <Manjinder Grant E - Last Filed: 10/28/17 11:03> (6) Pneumonia Qualifiers: Pneumonia type: due to unspecified organism Laterality: left Lung location: lower lobe of lung Qualified Code(s): J18.1 - Lobar pneumonia, unspecified organism (7) Hypertension Qualifiers: Hypertension type: essential hypertension Qualified Code(s): I10 - Essential (primary) hypertension
--- NOTE | 2017-10-28 10:00 | P.PNADD ---
Addendum to Inpatient Note Reason for Addendum: Additional Documentation Additional information: Transition of Care Note Patient is a 51-year-old female with a significant past medical history of COPD , schizophrenia, rheumatoid arthritis and left total knee replacement (07/26/17) who presents to the ED with complaints of worsening shortness of breath and mental status change accompanied with symptoms of diarrhea (3 days, non-bloody) and decreased p.o. intake (5 days). On admission patient found to be in severe sepsis with tachycardia (110), new onset neutropenia (WBC 0.9), Lactic acid of 3.1, and an H/H of 5.5/16.3 as well as AMS. Probable source was thought to be due to her prosthetic knee that was replaced in July. At the time of admission her left knee was draining fluid and her gave a history of her knee draining "towels of pus". In the ED patient received 2 L of normal saline, vancomycin 1 g x1 and Zosyn 4.5 g x1. Chest CTA showed no evidence of atelectasis or consolidation of left lower lobe. Wound culture taken from left knee grew pseudomonas and group B strep, but blood cultures had no growth. Patient also had a fungal transcutaneous skin infection on abdomen and as well as oral thrush. She was on nystatin swish and swallow and IV fluconazole. Many psychiatric/RA drugs were stopped due to myelosuppression. Heme / Onc was consulted and patient received Neupogen which greatly increased her white count. At the time of admission patient had active auditory and visual hallucinations. Psychiatry was consulted who recommended limiting her psych meds to aripiprazole, buspirone, duloxetine, and trazodone. During her treatment she received folic acid and leucovorin. She later developed thrombocytopenia, and a HIT workup was done which turned out to be negative, her platelets eventually sarthak again. This patient was initially admitted to the ICU due to neutropenic precautions, but was eventually transferred back down to the floor. Per ID her antibiotics were changed to levofloxacin, cefepime, and fluconazole. A plan was made with ID to get the patient a PICC line and have her administer antibiotics at home with the help of home health as well as wound care. She received a PICC line with a planned course of antibiotics of cefepime and levofloxacin until November 08, and fluconazole until October 18. Upon preparation for discharge patient mentioned that she was having pain near her anus, an exam revealed the same transcutaneous wound that she had under her pannus was also on her perineum extending almost to the anus. Patient was taken to OR for debridement and wound VAC placement on 10/09 and . 10/15 the patient was taken to the OR and the wound vac was removed with closure of the abdominal wall. Tissue samples taken from debridement had no growth on culture. 10/19 patient got OOB on her own and fell. New opening of skin over L knee surgical site with increased drainage, new wound cultures were taken with no growth resulting. Pain in L knee and ankle- xrays negative for fracture. Denies hitting head. Ortho was called due to increasing effusion of the knee but they did not recommend aspiration at the time. Patient began to have leaking around her rectal tube- C diff cultures taken and came back positive. Stopped levaquin, started po vancomycin. 10/20- dehiscence of L thigh incision, new skin breakdown on R thigh. Sx recommending packing L thigh area, continuing ZAMZAM drain. 10/28- dehiscence of bilateral abdominal side wounds, drainage of clear fluid. Plan: -Following; general surgery, ortho, ID (psych and hematology previously consulted) -Continue cefepime and po vancomycin until 11/08 -Follow-up with Dr. Schneider from general surgery regarding when ZAMZAM drain will be removed, addressing the new incision breakdown -Patient will need rectal tube removed before placement in SNF, general sx recommending it to keep wound clean/dry -CM following with possible placement at [facility] but she has to be healed a bit more before theyll take her -Potassium replacement has been difficult- may be requiring IV from now on -Consider discussion with regarding nutrition status, possible tube feedings
[2017-10-28] MEDS: Potassium Chlor 10 mEq Premix 10 MEQ/100 ML PIGGYBACK IV.SIG SCH ×5 (15:08→22:52)
[2017-10-28 19:18] LABS: Anion Gap 9 meq/L (5-15); Blood Urea Nitrogen 7 mg/dL (7-18); Calcium 7.7 mg/dL (8.5-10.1); Chloride 110 meq/L (98-107); Glomerular Filtration Rate Greater Than 89 mL/min (>89); Glucose,Random 78 mg/dL (74-106); Potassium 3.3 meq/L (3.5-5.1); Sodium 141 meq/L (136-145)
[2017-10-28] MEDS ORDERED: Potassium Chlor 20 mEq Premix 20 MEQ/100 ML PIGGYBACK IV.SIG ONE (19:25)
[2017-10-29] MEDS: Sod Chloride 0.9% Inj 1,000 ML IV.CONT SCH ×4 (06:37→23:59)
[2017-10-29 07:48] LABS: Mean Corpuscular HGB Conc 34.3 % (32.0-36.0); Mean Corpuscular Hemoglobin 28.1 pg (27.0-34.0); Mean Platelet Volume 7.1 fL (7.0-11.0); Platelet Count 306 th/mm3 (150-450); Red Blood Count 2.48 mil/mm3 (4.00-5.30); Red Cell Distribution Width 17.2 % (11.6-17.2); White Blood Count 10.5 th/mm3 (4.0-11.0)
[2017-10-29 08:07] LABS: Hematocrit 20.3 % (35.0-46.0)
[2017-10-29 08:20] LABS: Anion Gap 8 meq/L (5-15); Blood Urea Nitrogen 6 mg/dL (7-18); Calcium 7.5 mg/dL (8.5-10.1); Carbon Dioxide 22.9 meq/L (21.0-32.0); Chloride 112 meq/L (98-107); Glomerular Filtration Rate Greater Than 89 mL/min (>89); Glucose,Random 75 mg/dL (74-106); Sodium 143 meq/L (136-145)
[2017-10-29 08:42] LABS: Potassium 2.9 meq/L (3.5-5.1)
[2017-10-29] MEDS: traZODone 100 MG Tablet PO SCH (09:18)
[2017-10-29] MEDS: dilTIAZem 60 MG Tablet PO SCH ×3 (09:18→17:06)
[2017-10-29] MEDS: Pantoprazole Sodium 20 MG DR Tablet PO SCH (09:18)
[2017-10-29] MEDS: Metoprolol Tartrate 25 MG Tablet PO SCH ×2 (09:19→22:02)
[2017-10-29] MEDS: Duloxetine 60 MG DR Capsule PO SCH (09:20)
[2017-10-29] MEDS: Folic Acid 1 MG Tablet PO SCH (09:20)
[2017-10-29] MEDS: Lactobacillus Acidophilus/L. Spores Tablet PO SCH ×2 (09:20→22:02)
[2017-10-29] MEDS: Heparin Central Flush 100 UNIT/ML 5 ML Vial IV.FLUSH SCH (09:20)
--- NOTE | 2017-10-29 15:10 | P.PNFP ---
Subjective Interval history: Patient seen and examined this morning by medical team. No acute events overnight per nursing staff. Patient AAO 3 and is able to recognize myself upon entering the room without introduction. Patient currently has no acute complaints, however she states that she would like to go home. We thoroughly discussed the extensiveness of her lower abdominal and extremity wounds which will require improved healing prior to discharge to rehabilitation. We also discussed blood transfusion as her hemoglobin is decreased to 7 on laboratory evaluation. She is agreeable to blood transfusion at this time. Otherwise she denies a complete review of systems including but not limited to any fevers, chills, shortness of breath, chest pain, NVD, abdominal pain, or calf tenderness. Results - Labs Result diagrams: 10/29/17 06:30 10/29/17 06:30 Abnormal lab results 10/28/17 10/29/17 10/29/17 Range/Units 17:58 06:30 06:30 RBC 2.48 L (4.00-5.30) mil/mm3 Hgb 7.0 L (11.6-15.3) gm/dL Hct 20.3 L* (35.0-46.0) % Potassium 3.3 L 2.9 L* (3.5-5.1) meq/L Chloride 110 H 112 H (98-107) meq/L BUN 6 L (7-18) mg/dL Calcium 7.7 L 7.5 L (8.5-10.1) mg/dL Short CBC 10/29/17 Range/Units 06:30 WBC 10.5 (4.0-11.0) th/mm3 Hgb 7.0 L (11.6-15.3) gm/dL Hct 20.3 L* (35.0-46.0) % Plt Count 306 (150-450) th/mm3 BMP 10/28/17 10/29/17 17:58 06:30 Sodium 141 143 Potassium 3.3 L 2.9 L* Chloride 110 H 112 H Carbon Dioxide 22.0 22.9 BUN 7 6 L Creatinine 0.60 0.51 Calcium 7.7 L 7.5 L Physical Exam Vital signs: Vital Signs 10/28/17 16:00 10/28/17 20:00 10/29/17 00:00 Temperature 97.7 F 97.5 F L 97.8 F Pulse Rate 126 H 106 H 122 H Respiratory Rate 20 18 18 Blood Pressure 135/90 127/74 150/68 H Pulse Oximetry 98 99 97 10/29/17 04:00 10/29/17 08:00 10/29/17 13:39 Temperature 97.4 F L 97.2 F L Pulse Rate 114 H 95 H Respiratory Rate 18 21 16 Blood Pressure 139/93 H 156/94 H Pulse Oximetry 99 97 Intake & Output 10/28/17 10/29/17 10/29/17 18:59 06:59 18:59 Intake Total 1760 / 1760 2200 / 2200 1300 / 1300 Output Total 800 / 800 40 / 40 Balance 960 / 960 2160 / 2160 1300 / 1300 Intake: IV 1400 / 1400 2200 / 2200 1300 / 1300 NS Inj 1,000 ML @ 100 mls/hr IV 1000 / 1000 2000 / 2000 1000 / 1000 .CONT .Q10H [facility] Rx#:[id number] Maxipime Inj 2,000 MG In NS Inj 200 / 200 100 / 100 100 / 100 100 ML @ 200 mls/hr IV.SIG Q8H [facility] Rx#:[id number] KCl 10 mEq Premix Inj 10 meq In 200 / 200 100 / 100 100 / 100 100 ml @ 100 mls/hr IV.SIG Q1H [facility] Rx#:[id number] Oral 360 / 360 Output: Urine 800 / 800 Wound Drainage 40 / 40 ZAMZAM Drain 40 / 40 Other: Date of Last Bowel Movement 10/27/17 10/28/17 10/29/17 Narrative: GENERAL: Morbidly obese -[place] female lying in bed in no acute distress. SKIN: Warm and dry. No rash. Lower abdominal and bilateral lower extremity wounds covered and labeled with ABD pad/sterile dressings. Dressings without signs of purulent drainage or acute bleeding. Per prior report, open crural wounds bilat. nedra vertical midline with open incision sites on sides of abdomen bilaterally. PICC line inserted in the right upper extremity without surrounding erythema, warmth, or other signs of infection. HEENT: Atraumatic, normocephalic with extraocular motions intact. No rhinorrhea. No visible lymphadenopathy or jugulovenous distension appreciated. CARDIOVASCULAR: Tachycardic rate (baseline) and regular rhythm without obvious murmurs, gallops, or rubs. RESPIRATORY: Clear to anterior auscultation bilaterally with no crackles, wheezes, or rhonchi. No increased work of breathing. GASTROINTESTINAL: Abdomen diffuse, soft, and nontender with positive bowel sounds in all 4 quadrants. ZAMZAM drain in place without surrounding signs of erythema, warmth, or other signs of infection. No masses appreciated. Rectal tube in place. Hopper catheter in place. MUSCULOSKELETAL: No cyanosis. Bilateral lower extremities with distal edema. No calf tenderness. Left knee effusion stable. NEURO/PSYCH: Afocal. Awake, alert, and oriented x3. Normal speech and judgement. - Urinary Catheter Management Indwelling Urethral Catheter Cath placed during this visit: yes, but has since been removed by the nurse Reason for continuing: Severe pressure ulcer/wound Insertion date: 09/27/17 Insertion time: 08: Removal date: 10/05/17 Removal time: 17:30 Assessment and Plan - Assessment (1) Anemia Code(s): D64.9 - Anemia, unspecified Status: Acute Plan: -Patient found to have asymptomatic anemia H/H of 10/05.3 on 05/29/17 -Patient has received multiple transfusions during hospitalization with hemoglobin ranging from 7.5 to 8.7 over the last week -Rectal tube and Hopper catheter without any signs of bleeding -Dressings without obvious signs of bleeding -Due to critical condition and severity of abdominal wounds with decreasing hemoglobin, 2 units PRBC ordered -Repeat posttransfusion H/H ordered -Patient to receive Lasix between units to assist with possible fluid overload (2) Hypokalemia Code(s): E87.6 - Hypokalemia Status: Acute Plan: -Patient with hypokalemia over the last 24 hours -CMP 10/29/13: 2.9 -Magnesium level ordered -Repeat BMP with post-transfusion H/H, discussed with nursing staff for sign out Medications: -Magnesium 64 mg daily -Potassium Chloride 40mEq BID with one time dose (confirmed with Pharmacy) (3) Open wound of abdominal wall Code(s): S31.109A - Unspecified open wound of abdominal wall, unspecified quadrant without penetration into peritoneal cavity, initial encounter Status : Acute Plan: -General surgery consulted, Surgical debridement 10/09, wound VAC applied. VAC changed 10/12 removed 10/15. Debridement, irrigation, with suturing performed on . -Ensure ordered to improve nutritional status for increased wound healing -Dressing changes per general surgery Medications: -Cefepime IV (09/29/17-11/08/17) per ID; PICC line placed for antibiotic administration at rehab once wounds are stable for DC -Patient received 2 weeks of Keflex 500mg PO by Orthopedic surgery as outpatient prior to admission -Levaquin stopped 10/20 per ID -Diflucan course completed 10/18 (4) Cellulitis of knee, left Code(s): L03.116 - Cellulitis of left lower limb Status: Acute Plan: -ID consulted, recommend Cefepime until 11/08/17 -Orthopedic surgery consulted, no further recommendations at this time Medications: -Cefepime IV (09/29/17-11/08/17) per ID; PICC line placed for antibiotic administration at rehab once wounds are stable for DC -Patient received 2 weeks of Keflex 500mg PO by Orthopedic surgery as outpatient prior to admission -Levaquin stopped 10/20 per ID -Diflucan course completed 10/18 (5) Prosthetic joint infection Code(s): 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 NGTD, cleared from ID standpoint to go rehab with IV Cefepime until 11/08/17 -Orthopedics ([place] for Dr. 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 She completed rehabilitation and was discharged home August 23. Patient was on approximately 2 weeks of po Keflex 500 mg. Per Ortho, examination of left knee shows no evidence of infection. (6) C. difficile diarrhea Code(s): A04.72 - Enterocolitis due to Clostridium difficile, not specified as recurrent Status: Acute Plan: -C diff cultures positive 10/19/17 -Vancomycin PO 125 4 times daily until completion of Cefepime per ID -Continue with probiotics. -Rectal tube in place (7) Fall Code(s): W19.XXXA - Unspecified fall, initial encounter Status: Acute Plan: Patient with fall on 10/19/17. No loss of consciousness, no head injury, left knee and ankle pain. -Knee x-ray- Prosthesis in place, No abnormality appreciated -Ankle x-ray- No abnormality appreciated (8) Fungal infection of skin of abdomen Code(s): B36.9 - Superficial mycosis, unspecified Status: Acute Plan: -Completed Diflucan course per ID on 10/18/17 -Specialty bed History: Surgical procedure 10/09, wound VAC applied. VAC changed 10/12 removed 10/15. (9) Hypertension Code(s): I10 - Essential (primary) hypertension Status: Acute Plan: History of hypertension -Continue to monitor -Clonidine PRN for BP > 180/100 (10) Schizophrenia Code(s): F20.9 - Schizophrenia, unspecified Status: Chronic Plan: -Psychiatry consulted upon admission Medications: -Continue Abilify 30 mg for psychosis -Continue buspirone 30 mg, trazodone 100 mg and Cymbalta 60 mg -Hold anticholinergics per Psych (11) Nutrition, metabolism, and development symptoms Code(s): R63.8 - Other symptoms and signs concerning food and fluid intake Status: Acute Plan: Fluids: KVO/5mls/hr to avoid fluid overload during transfusion Electrolytes: Replete as needed. Nutrition: cardiac diet, continue to monitor po intake, supplement with ensure. Encouraged patient that she needed to increase p.o. intake in order to heal DVT prophylaxis: SCDs Continue to work with OT/PT to get OOB. (1) Anemia Qualifiers: Anemia type: unspecified type Qualified Code(s): D64.9 - Anemia, unspecified (3) Open wound of abdominal wall Qualifiers: Encounter type: initial encounter Qualified Code(s): S31.109A - Unspecified open wound of abdominal wall, unspecified quadrant without penetration into peritoneal cavity, initial encounter (9) Hypertension Qualifiers: Hypertension type: essential hypertension Qualified Code(s): I10 - Essential (primary) hypertension
[2017-10-29 18:33] LABS: Anion Gap 8 meq/L (5-15); Blood Urea Nitrogen 7 mg/dL (7-18); Calcium 7.5 mg/dL (8.5-10.1); Chloride 113 meq/L (98-107); Glomerular Filtration Rate Greater Than 89 mL/min (>89); Glucose,Random 111 mg/dL (74-106); Magnesium 1.3 mg/dL (1.5-2.5); Potassium 3.1 meq/L (3.5-5.1); Sodium 143 meq/L (136-145)
[2017-10-29] MEDS: Sodium Chlor 0.9% Inj 250 ML IV.SIG SCH ×2 (21:45→22:03)
[2017-10-29] MEDS ORDERED: Sodium Chlor 0.9% Inj 250 ML IV.SIG SCH (22:00)
[2017-10-30 07:17] LABS: Baso # (Auto) 0.1 th/mm3 (0.0-0.2); Baso % (Auto) 0.9 % (0.0-2.0); Eos # (Auto) 0.3 th/mm3 (0.0-0.4); Eos % (Auto) 2.2 % (0.0-4.0); Hematocrit 34.7 % (35.0-46.0); Hemoglobin 11.6 gm/dL (11.6-15.3); Lymph # (Auto) 1.7 th/mm3 (1.0-4.8); Lymph % (Auto) 13.3 % (9.0-44.0); Mean Corpuscular HGB Conc 33.4 % (32.0-36.0); Mean Corpuscular Hemoglobin 28.4 pg (27.0-34.0); Mean Platelet Volume 7.5 fL (7.0-11.0); Mono % (Auto) 7.8 % (0.0-8.0); Neut # (Auto) 9.5 th/mm3 (1.8-7.7); Neut % (Auto) 75.8 % (16.0-70.0); Platelet Count 255 th/mm3 (150-450); Red Blood Count 4.08 mil/mm3 (4.00-5.30); Red Cell Distribution Width 16.4 % (11.6-17.2); White Blood Count 12.5 th/mm3 (4.0-11.0)
[2017-10-30 07:57] LABS: Alanine Aminotransferase 22 U/L (10-53); Albumin 1.1 g/dL (3.4-5.0); Alkaline Phosphatase 175 U/L (45-117); Anion Gap 6 meq/L (5-15); Aspartate Aminotransferase 45 U/L (15-37); Blood Urea Nitrogen 7 mg/dL (7-18); Chloride 113 meq/L (98-107); Glomerular Filtration Rate Greater Than 89 mL/min (>89); Glucose,Random 77 mg/dL (74-106); Magnesium 1.5 mg/dL (1.5-2.5); Sodium 141 meq/L (136-145); Total Protein 5.2 g/dL (6.4-8.2)
[2017-10-30 08:02] LABS: Potassium 4.4 meq/L (3.5-5.1)
--- NOTE | 2017-10-30 08:24 | P.PNFP ---
Subjective Interval history: Patient seen and evaluated this morning. No acute events overnight per nursing staff. Patient tolerated blood transfusion overnight well without complications. Patient's potassium and magnesium corrected overnight as well with supplementation. Stable patient with continued improved mood, however is only oriented to PPTx1. Per chart review, patient has had fluctuating orientation during hospitalization. She has no current complaints and denies a complete review of systems including but not limited to any fevers, chills, shortness of breath, chest pain, NVD, abdominal pain, or calf tenderness. <Chaz Vivar H - 10/30/17 09:15> Results - Labs Result diagrams: 10/30/17 06:54 10/30/17 06:54 <Abbey Goldman - 10/30/17 17:06> Abnormal lab results 10/15/17 10/29/17 10/29/17 Range/Units 11:05 17:35 17:35 WBC (4.0-11.0) th/mm3 Hct (35.0-46.0) % Neut % (Auto) (16.0-70.0) % Neut # (Auto) (1.8-7.7) th/mm3 [place] # (Auto) (0.0-0.9) th/mm3 Potassium 3.1 L (3.5-5.1) meq/L Chloride 113 H (98-107) meq/L Random Glucose 111 H (74-106) mg/dL Calcium 7.5 L (8.5-10.1) mg/dL Magnesium 1.3 L (1.5-2.5) mg/dL AST (15-37) U/L Alkaline Phosphatase (45-117) U/L Total Protein (6.4-8.2) g/dL Albumin (3.4-5.0) g/dL MTS Gel Crossmatch See Detail See Detail 10/30/17 10/30/17 Range/Units 06:54 06:54 WBC 12.5 H (4.0-11.0) th/mm3 Hct 34.7 L (35.0-46.0) % Neut % (Auto) 75.8 H (16.0-70.0) % Neut # (Auto) 9.5 H (1.8-7.7) th/mm3 [place] # (Auto) 1.0 H (0.0-0.9) th/mm3 Potassium (3.5-5.1) meq/L Chloride 113 H (98-107) meq/L Random Glucose (74-106) mg/dL Calcium 8.0 L (8.5-10.1) mg/dL Magnesium (1.5-2.5) mg/dL AST 45 H (15-37) U/L Alkaline Phosphatase 175 H (45-117) U/L Total Protein 5.2 L (6.4-8.2) g/dL Albumin 1.1 L (3.4-5.0) g/dL MTS Gel Crossmatch Short CBC 10/30/17 Range/Units 06:54 WBC 12.5 H (4.0-11.0) th/mm3 Hgb 11.6 D (11.6-15.3) gm/dL Hct 34.7 L (35.0-46.0) % Plt Count 255 (150-450) th/mm3 BMP 10/29/17 10/30/17 17:35 06:54 Sodium 143 141 Potassium 3.1 L 4.4 D Chloride 113 H 113 H Carbon Dioxide 22.0 22.0 BUN 7 7 Creatinine 0.66 0.60 Calcium 7.5 L 8.0 L Liver Function 10/30/17 Range/Units 06:54 Total Bilirubin 0.7 (0.2-1.0) mg/dL AST 45 H (15-37) U/L ALT 22 (10-53) U/L Alkaline Phosphatase 175 H (45-117) U/L Albumin 1.1 L (3.4-5.0) g/dL <Abbey Goldman - 10/30/17 17:06> Abnormal lab results 10/15/17 10/29/17 10/29/17 Range/Units 11:05 06:30 06:30 WBC (4.0-11.0) th/mm3 Hct (35.0-46.0) % Neut % (Auto) (16.0-70.0) % Neut # (Auto) (1.8-7.7) th/mm3 [place] # (Auto) (0.0-0.9) th/mm3 Potassium 2.9 L* (3.5-5.1) meq/L Chloride 112 H (98-107) meq/L BUN 6 L (7-18) mg/dL Random Glucose (74-106) mg/dL Calcium 7.5 L (8.5-10.1) mg/dL Magnesium (1.5-2.5) mg/dL AST (15-37) U/L Alkaline Phosphatase (45-117) U/L Total Protein (6.4-8.2) g/dL Albumin (3.4-5.0) g/dL Prealbumin 11 L (20-40) mg/dL MTS Gel Crossmatch See Detail 10/29/17 10/29/17 10/29/17 Range/Units 06:30 17:35 17:35 WBC (4.0-11.0) th/mm3 Hct (35.0-46.0) % Neut % (Auto) (16.0-70.0) % Neut # (Auto) (1.8-7.7) th/mm3 [place] # (Auto) (0.0-0.9) th/mm3 Potassium 3.1 L (3.5-5.1) meq/L Chloride 113 H (98-107) meq/L BUN (7-18) mg/dL Random Glucose 111 H (74-106) mg/dL Calcium 7.5 L (8.5-10.1) mg/dL Magnesium 1.3 L 1.3 L (1.5-2.5) mg/dL AST (15-37) U/L Alkaline Phosphatase (45-117) U/L Total Protein (6.4-8.2) g/dL Albumin (3.4-5.0) g/dL Prealbumin (20-40) mg/dL MTS Gel Crossmatch See Detail 10/30/17 10/30/17 Range/Units 06:54 06:54 WBC 12.5 H (4.0-11.0) th/mm3 Hct 34.7 L (35.0-46.0) % Neut % (Auto) 75.8 H (16.0-70.0) % Neut # (Auto) 9.5 H (1.8-7.7) th/mm3 [place] # (Auto) 1.0 H (0.0-0.9) th/mm3 Potassium (3.5-5.1) meq/L Chloride 113 H (98-107) meq/L BUN (7-18) mg/dL Random Glucose (74-106) mg/dL Calcium 8.0 L (8.5-10.1) mg/dL Magnesium (1.5-2.5) mg/dL AST 45 H (15-37) U/L Alkaline Phosphatase 175 H (45-117) U/L Total Protein 5.2 L (6.4-8.2) g/dL Albumin 1.1 L (3.4-5.0) g/dL Prealbumin (20-40) mg/dL MTS Gel Crossmatch Short CBC 10/30/17 Range/Units 06:54 WBC 12.5 H (4.0-11.0) th/mm3 Hgb 11.6 D (11.6-15.3) gm/dL Hct 34.7 L (35.0-46.0) % Plt Count 255 (150-450) th/mm3 BMP 10/29/17 10/29/17 10/30/17 06:30 17:35 06:54 Sodium 143 143 141 Potassium 2.9 L* 3.1 L 4.4 D Chloride 112 H 113 H 113 H Carbon Dioxide 22.9 22.0 22.0 BUN 6 L 7 7 Creatinine 0.51 0.66 0.60 Calcium 7.5 L 7.5 L 8.0 L Liver Function 10/30/17 Range/Units 06:54 Total Bilirubin 0.7 (0.2-1.0) mg/dL AST 45 H (15-37) U/L ALT 22 (10-53) U/L Alkaline Phosphatase 175 H (45-117) U/L Albumin 1.1 L (3.4-5.0) g/dL <Chaz Vivar H - 10/30/17 08:24> Physical Exam Vital signs: Vital Signs 10/29/17 20:00 10/29/17 21:33 10/29/17 21:35 Temperature 98.1 F 97.8 F 97.8 F Pulse Rate 111 H 119 H 116 H Respiratory Rate 18 18 Blood Pressure 141/71 H 120/74 120/74 Pulse Oximetry 98 98 99 10/29/17 21:40 10/29/17 21:56 10/29/17 22:15 Temperature 97.8 F 98.3 F Pulse Rate 116 H 120 H Respiratory Rate 18 18 Blood Pressure 120/74 121/81 Pulse Oximetry 99 99 08/13/18 22:16 10/29/17 23:07 10/29/17 23:22 Temperature 98.3 F 98.7 F Pulse Rate 113 H 111 H Respiratory Rate 20 18 Blood Pressure 121/81 119/66 Pulse Oximetry 99 100 10/30/17 00:00 10/30/17 01:22 10/30/17 01:39 Temperature 98.0 F 97.2 F L 97.8 F Pulse Rate 105 H 95 H 107 H Respiratory Rate 18 18 19 Blood Pressure 148/70 H 134/72 141/96 H Pulse Oximetry 99 100 100 10/30/17 01:45 10/30/17 04:00 10/30/17 08:00 Temperature 98.2 F 98.1 F 97.5 F L Pulse Rate 94 H 105 H 118 H Respiratory Rate 19 18 18 Blood Pressure 145/86 H 140/71 146/80 H Pulse Oximetry 100 99 99 10/30/17 12:00 10/30/17 16:54 Temperature 97.6 F Pulse Rate 113 H Respiratory Rate 18 16 Blood Pressure 137/77 Pulse Oximetry 99 Intake & Output 10/29/17 10/30/17 10/30/17 18:59 06:59 18:59 Intake Total 1760 / 1760 942 / 942 1350 / 1350 Output Total 700 / 700 2805 / 2805 500 / 500 Balance 1060 / 1060 -1863 / -1863 850 / 850 Weight 112.1 kg Intake: IV 1400 / 1400 100 / 100 1350 / 1350 NS Inj 1,000 ML @ 100 mls/hr IV 1000 / 1000 1000 / 1000 .CONT .Q10H [facility] Rx#:[id number] Maxipime Inj 2,000 MG In NS Inj 200 / 200 100 / 100 100 / 100 100 ML @ 200 mls/hr IV.SIG Q8H [facility] Rx#:[id number] KCl 10 mEq Premix Inj 10 meq In 100 / 100 100 ml @ 100 mls/hr IV.SIG Q1H [facility] Rx#:[id number] NS Inj 250 ML @ 15 mls/hr IV. 250 / 250 SIG ONCE [facility] Rx#:[id number] Oral 360 / 360 442 / 442 Intake (Blood Product) Amt 400 / 400 Rbc As-3 Leukoreduced Unit 400 / 400 [id number] Rbc As-3 Leukoreduced Unit 0 / 0 [id number] Rbc As-3 Leukoreduced Unit 0 / 0 [id number] Output: Urine 300 / 300 Stool 400 / 400 500 / 500 Urine Amount (Catheter) 2750 / 2750 Indwelling Urethral Catheter 2750 / 2750 Wound Drainage 55 / 55 ZAMZAM Drain 55 / 55 Other: Mode Setting Left Upper Groin Continuous Midline Groin Continuous Perineal Continuous Right Lower Groin Thigh Continuous Date of Last Bowel Movement 10/29/17 10/30/17 10/30/17 # Emeses 1 <Abbey Goldman - 10/30/17 17:06> Vital Signs 10/29/17 13:39 10/29/17 15:48 10/29/17 20:00 Temperature 97.4 F L 98.1 F Pulse Rate 103 H 111 H Respiratory Rate 16 18 Blood Pressure 131/74 141/71 H Pulse Oximetry 99 98 10/29/17 21:33 10/29/17 21:35 10/29/17 21:40 Temperature 97.8 F 97.8 F 97.8 F Pulse Rate 119 H 116 H 116 H Respiratory Rate 18 18 Blood Pressure 120/74 120/74 120/74 Pulse Oximetry 98 99 99 10/29/17 21:56 10/29/17 22:15 10/29/17 22:16 Temperature 98.3 F 98.3 F Pulse Rate 120 H 113 H Respiratory Rate 18 20 Blood Pressure 121/81 121/81 Pulse Oximetry 99 99 10/29/17 23:07 10/29/17 23:22 10/30/17 00:00 Temperature 98.7 F 98.0 F Pulse Rate 111 H 105 H Respiratory Rate 18 18 Blood Pressure 119/66 148/70 H Pulse Oximetry 100 99 10/30/17 01:22 10/30/17 01:39 10/30/17 01:45 Temperature 97.2 F L 97.8 F 98.2 F Pulse Rate 95 H 107 H 94 H Respiratory Rate 18 19 19 Blood Pressure 134/72 141/96 H 145/86 H Pulse Oximetry 100 100 100 10/30/17 04:00 Temperature 98.1 F Pulse Rate 105 H Respiratory Rate 18 Blood Pressure 140/71 Pulse Oximetry 99 Intake & Output 10/29/17 10/30/17 10/30/17 18:59 06:59 18:59 Intake Total 1760 / 1760 942 / 942 Output Total 700 / 700 2805 / 2805 Balance 1060 / 1060 -1863 / -1863 Weight 112.1 kg Intake: IV 1400 / 1400 100 / 100 NS Inj 1,000 ML @ 100 mls/hr IV 1000 / 1000 .CONT .Q10H [facility] Rx#:[id number] Maxipime Inj 2,000 MG In NS Inj 200 / 200 100 / 100 100 ML @ 200 mls/hr IV.SIG Q8H [facility] Rx#:[id number] KCl 10 mEq Premix Inj 10 meq In 100 / 100 100 ml @ 100 mls/hr IV.SIG Q1H [facility] Rx#:[id number] Oral 360 / 360 442 / 442 Intake (Blood Product) Amt 400 / 400 Rbc As-3 Leukoreduced Unit 400 / 400 [id number] Rbc As-3 Leukoreduced Unit 0 / 0 [id number] Rbc As-3 Leukoreduced Unit 0 / 0 [id number] Output: Urine 300 / 300 Stool 400 / 400 Urine Amount (Catheter) 2750 / 2750 Indwelling Urethral Catheter 2750 / 2750 Wound Drainage 55 / 55 ZAMZAM Drain 55 / 55 Other: Mode Setting Left Upper Groin Continuous Midline Groin Continuous Perineal Continuous Right Lower Groin Thigh Continuous Date of Last Bowel Movement 10/29/17 10/30/17 # Emeses 1 <Chaz Vivar H - 10/30/17 08:46> Narrative: GENERAL: Morbidly obese -[place] female lying in bed in no acute distress. SKIN: Warm and dry. No rash. Lower abdominal and bilateral lower extremity wounds covered and labeled with ABD pad/sterile dressings. Dressings without signs of purulent drainage or acute bleeding, but are damp to the touch. Per prior report, open crural wounds bilat. nedra vertical midline with open incision sites on sides of abdomen bilaterally. PICC line inserted in the right upper extremity without surrounding erythema, warmth, or other signs of infection. HEENT: Atraumatic, normocephalic with extraocular motions intact. No rhinorrhea. No visible lymphadenopathy or jugulovenous distension appreciated. CARDIOVASCULAR: Tachycardic rate (baseline) and regular rhythm without obvious murmurs, gallops, or rubs. RESPIRATORY: Clear to anterior auscultation bilaterally with no crackles, wheezes, or rhonchi. No increased work of breathing. GASTROINTESTINAL: Abdomen diffuse, soft, and nontender with positive bowel sounds in all 4 quadrants. ZAMZAM drain in place without surrounding signs of erythema, warmth, or other signs of infection. No masses appreciated. Rectal tube in place. Hopper catheter in place. MUSCULOSKELETAL: No cyanosis. Bilateral lower extremities with 1+ pitting edema. No calf tenderness. Left knee effusion stable. SCDs in place. NEURO/PSYCH: Afocal. Patient awake and alert, however only oriented to PPT 1. Normal speech. <Chaz Vivar - 10/30/17 09:15> - Urinary Catheter Management Indwelling Urethral Catheter Cath placed during this visit: no <Abbey Goldman 10/30/17 17:06> yes, but has since been removed by the nurse <Chaz Vivar - 10/30/17 17:04> Reason for continuing: Severe pressure ulcer/wound <Chaz Vivar 10/30/17 08:24> Insertion date: 09/27/17 <Chaz Vivar 10/30/17 08:24> Insertion time: 08:20 <Chaz Vivar 10/30/17 08:24> Removal date: 10/05/17 <Chaz Vivar 10/30/17 08:24> Removal time: 17:30 <Chaz Vivar - 10/30/17 08:24> Assessment and Plan - Assessment (1) Open wound of abdominal wall Code(s): S31.109A - Unspecified open wound of abdominal wall, unspecified quadrant without penetration into peritoneal cavity, initial encounter Status : Acute (2) Cellulitis of knee, left Code(s): L03.116 - Cellulitis of left lower limb Status: Acute (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 difficile diarrhea Code(s): A04.72 - Enterocolitis due to Clostridium difficile, not specified as recurrent Status: Acute (7) Fall Code(s): W19.XXXA - Unspecified fall, initial encounter Status: Acute (8) Hypertension Code(s): I10 - Essential (primary) hypertension Status: Acute (9) Schizophrenia Code(s): F20.9 - Schizophrenia, unspecified Status: Chronic (10) Tachycardia Code(s): R00.0 - Tachycardia, unspecified Status: Chronic (11) Nutrition, metabolism, and development symptoms Code(s): R63.8 - Other symptoms and signs concerning food and fluid intake Status: Acute <Abbey Goldman - 10/30/17 17:06> (1) Open wound of abdominal wall Code(s): S31.109A - Unspecified open wound of abdominal wall, unspecified quadrant without penetration into peritoneal cavity, initial encounter Status : Acute Plan: -Wound Culture 09/27/17: Pseudomonas and Group B Step -Blood Cultures 10/24/17: Negative -Tissue Cultures 10/09/17: Negative -General surgery consulted, Surgical debridement 10/09, wound VAC applied. VAC changed 10/12 removed 10/15. Debridement, irrigation, with suturing performed on . -Ensure ordered to improve nutritional status for increased wound healing -Dressing changes per general surgery Medications: -Cefepime IV (09/29/17-11/08/17) per ID; PICC line placed for antibiotic administration at rehab once wounds are stable for DC -Patient received 2 weeks of Keflex 500mg PO by Orthopedic surgery as outpatient prior to admission -Levaquin stopped 10/20 per ID -Diflucan course completed 10/18 (2) Cellulitis of knee, left Code(s): L03.116 - Cellulitis of left lower limb Status: Acute Plan: -ID consulted, recommend Cefepime until 11/08/17 -Orthopedic surgery consulted, no further recommendations at this time Medications: -Cefepime IV (09/29/17-11/08/17) per ID; PICC line placed for antibiotic administration at rehab once wounds are stable for DC -Patient received 2 weeks of Keflex 500mg PO by Orthopedic surgery as outpatient prior to admission -Levaquin stopped 10/20 per ID -Diflucan course completed 10/18 (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 NGTD, cleared from ID standpoint to go rehab with IV Cefepime until 11/08/17 -Orthopedics ([place] for Dr. 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 She completed rehabilitation and was discharged home August 23. Patient was on approximately 2 weeks of po Keflex 500 mg. Per Ortho, examination of left knee shows no evidence of infection. (4) Hypokalemia Code(s): E87.6 - Hypokalemia Status: Resolved Plan: -Patient with hypokalemia over the last 24 hours -CMP 10/29/13: 2.9 -Magnesium level: 1.3 -Transitioned patients Potassium from enteric coated ER to non-coated -CMP 10/30/17: K+ 4.4, Mg 1.5 Medications: -Magnesium 64 mg daily -Potassium Chloride 40mEq BID (Non-ER/Enteric Coated) -Potassium 40mEq x1 given 10/29/17 (5) Anemia Code(s): D64.9 - Anemia, unspecified Status: Resolved Plan: -Patient found to have asymptomatic anemia H/H of 7/20.3 with MCV of 82 on -Patient has received multiple transfusions during hospitalization with hemoglobin ranging from 7.5 to 8.7 over the last week -Rectal tube and Hopper catheter without any signs of acute bleeding -Dressings without obvious signs of bleeding -Due to critical condition and severity of abdominal wounds with decreasing hemoglobin, 2 units PRBC ordered -Patient did receive Lasix between units to assist with possible fluid overload -Posttransfusion H/H 11.6/34.7 on 10/30/17 (6) C. difficile diarrhea Code(s): A04.72 - Enterocolitis due to Clostridium difficile, not specified as recurrent Status: Acute Plan: -C diff cultures positive 10/19/17 -Vancomycin PO 125 4 times daily until completion of Cefepime per ID -Continue with probiotics. -Rectal tube in place (7) Fall Code(s): W19.XXXA - Unspecified fall, initial encounter Status: Acute Plan: Patient with fall on 10/19/17. No loss of consciousness, no head injury, left knee and ankle pain. -Knee x-ray- Prosthesis in place, No abnormality appreciated -Ankle x-ray- No abnormality appreciated -Patient to continue with PT (8) Hypertension Code(s): I10 - Essential (primary) hypertension Status: Acute Plan: History of hypertension -Continue to monitor -Clonidine PRN for BP > 180/100 (9) Schizophrenia Code(s): F20.9 - Schizophrenia, unspecified Status: Chronic Plan: -Psychiatry consulted upon admission Medications: -Continue Abilify 30 mg for psychosis -Continue buspirone 30 mg, trazodone 100 mg and Cymbalta 60 mg -Hold anticholinergics per Psych (10) Tachycardia Code(s): R00.0 - Tachycardia, unspecified Status: Chronic Plan: -Patient with chronic history of tachycardia -EKG 09/27/17: Sinus tachycardia with rate of [address] or interval changes. (Per medical team read) Medications: -Continue home diltiazem and carvedilol (11) Nutrition, metabolism, and development symptoms Code(s): R63.8 - Other symptoms and signs concerning food and fluid intake Status: Acute Plan: Fluids: KVO/5mls/hr to avoid fluid overload during transfusion Electrolytes: Replete as needed. Nutrition: Cardiac diet, continue to monitor po intake, supplement with ensure. Encouraged patient that she needed to increase p.o. intake in order to heal DVT prophylaxis: SCDs, Defer medical prophylaxis due to anemia Continue to work with OT/PT to get OOB. <Chaz Vivar - 10/30/17 17:04> - Attending Attestation Pt. seen, examined and discussed with Dr. Vivar at 1200 today. I agree with the findings and the plan. Ana Goldman MD <Abbey Goldman - 10/30/17 17:06> <Cahz Vivar H - Last Filed: 10/30/17 17:04> (1) Open wound of abdominal wall Qualifiers: Encounter type: initial encounter Qualified Code(s): S31.109A - Unspecified open wound of abdominal wall, unspecified quadrant without penetration into peritoneal cavity, initial encounter (5) Anemia Qualifiers: Anemia type: unspecified type Qualified Code(s): D64.9 - Anemia, unspecified (8) Hypertension Qualifiers: Hypertension type: essential hypertension Qualified Code(s): I10 - Essential (primary) hypertension <Abbey Goldman - Last Filed: 10/30/17 17:06> (1) Open wound of abdominal wall Qualifiers: Encounter type: initial encounter Qualified Code(s): S31.109A - Unspecified open wound of abdominal wall, unspecified quadrant without penetration into peritoneal cavity, initial encounter (5) Anemia Qualifiers: Anemia type: unspecified type Qualified Code(s): D64.9 - Anemia, unspecified (8) Hypertension Qualifiers: Hypertension type: essential hypertension Qualified Code(s): I10 - Essential (primary) hypertension <Chaz Vivar H - Last Filed: 10/30/17 17:04> (1) Open wound of abdominal wall Qualifiers: Encounter type: initial encounter Qualified Code(s): S31.109A - Unspecified open wound of abdominal wall, unspecified quadrant without penetration into peritoneal cavity, initial encounter (5) Anemia Qualifiers: Anemia type: unspecified type Qualified Code(s): D64.9 - Anemia, unspecified (8) Hypertension Qualifiers: Hypertension type: essential hypertension Qualified Code(s): I10 - Essential (primary) hypertension <Abbey Goldman - Last Filed: 08/14/18 17:06> (1) Open wound of abdominal wall Qualifiers: Encounter type: initial encounter Qualified Code(s): S31.109A - Unspecified open wound of abdominal wall, unspecified quadrant without penetration into peritoneal cavity, initial encounter (5) Anemia Qualifiers: Anemia type: unspecified type Qualified Code(s): D64.9 - Anemia, unspecified (8) Hypertension Qualifiers: Hypertension type: essential hypertension Qualified Code(s): I10 - Essential (primary) hypertension
[2017-10-30] MEDS: Duloxetine 60 MG DR Capsule PO SCH (08:57)
[2017-10-30] MEDS: traZODone 100 MG Tablet PO SCH (08:58)
[2017-10-30] MEDS: Heparin Central Flush 100 UNIT/ML 5 ML Vial IV.FLUSH SCH (08:58)
[2017-10-30] MEDS: dilTIAZem 60 MG Tablet PO SCH ×3 (08:58→17:13)
[2017-10-30] MEDS: Folic Acid 1 MG Tablet PO SCH (08:58)
[2017-10-30] MEDS: Metoprolol Tartrate 25 MG Tablet PO SCH ×2 (08:58→22:00)
[2017-10-30] MEDS: Pantoprazole Sodium 20 MG DR Tablet PO SCH (08:59)
[2017-10-30] MEDS: Lactobacillus Acidophilus/L. Spores Tablet PO SCH ×2 (08:59→21:58)
--- NOTE | 2017-10-30 13:18 | P.PNID ---
Subjective Remarks: ID coverage. Follow up. 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 Post op it appears she was discharged to a rehab. She was discharged from the rehab to home with her on August 23. Patient reports she lives at home with her who is on disability. Unsure of nature of disability at this time and his ability to take care of her. She was reportedly able to ambulate on her own initially followed by weakness and need for walker and then to a point where she did not want to get out of bed. It has been reported to others that she had some discharge at the left surgical site area and ortho surgeon prescribed oral keflex which reportedly lead to some improvement. She reportedly completed a week of antibiotic treatment with last day scheduled for today with some improvement in her knee pain. However her stated that she was starting to have more drainage from her knee just over the past day or so. He had pointed to several areas that had been draining pus from just above and just below the knee. He stated that a cup full of pus would drain at a time. Additionally the abdominal fold wounds appear to have been present for atleast 3 weeks now. With this background patient presented to the ED with complaints of worsening shortness of breath and mental status accompanied with symptoms of diarrhea (3 days, non-bloody) and decreased p.o. intake (5 days). She was also brought into the hospital due to infection of her knee that improved with Keflex p.o but now has returned with new additional drainage over the past few days. ID consulted for evaluation and Mment of Left knee prosthetic joint infection and neutropenia. Patient underwent incision and debridement of the inferior abdominal wall and proximal inner thighs on 10/12/2017. Receiving IV antibiotics for left knee infection/C difficile. CT scan showed small joint effusion and subcutaneous edema of the fat at the left knee. Overnight events reviewed. Patient is awake and alert and communicative. RN showed me areas of wound dehiscence on the abdomen at site of prior surgeries. He also informed me of possible plans for surgery. A tiny ulcerated area at the lower aspect of the left knee incision had a few droplets of clear serous fluid. Rectal bag with occasional leaks. Previously had purulent drainage on 10/19 and a culture had no growth. Denies nausea vomiting. Denies chills. No fever. Antibiotics: Cefepime Vancomycin PO. Lines: Lines ok. Allergies/Adverse Reactions: Allergies amoxicillin Allergy (Verified 09/27/17 17:54) Swelling Objective Vital Signs 10/29/17 13:39 10/29/17 15:48 10/29/17 20:00 Temperature 97.4 F L 98.1 F Pulse Rate 103 H 111 H Respiratory Rate 16 18 Blood Pressure 131/74 141/71 H Pulse Oximetry 99 98 10/29/17 21:33 10/29/17 21:35 10/29/17 21:40 Temperature 97.8 F 97.8 F 97.8 F Pulse Rate 119 H 116 H 116 H Respiratory Rate 18 18 Blood Pressure 120/74 120/74 120/74 Pulse Oximetry 98 99 99 10/29/17 21:56 10/29/17 22:15 10/29/17 22:16 Temperature 98.3 F 98.3 F Pulse Rate 120 H 113 H Respiratory Rate 18 20 Blood Pressure 121/81 121/81 Pulse Oximetry 99 99 10/29/17 23:07 10/29/17 23:22 10/30/17 00:00 Temperature 98.7 F 98.0 F Pulse Rate 111 H 105 H Respiratory Rate 18 18 Blood Pressure 119/66 148/70 H Pulse Oximetry 100 99 10/30/17 01:22 10/30/17 01:39 10/30/17 01:45 Temperature 97.2 F L 97.8 F 98.2 F Pulse Rate 95 H 107 H 94 H Respiratory Rate 18 19 19 Blood Pressure 134/72 141/96 H 145/86 H Pulse Oximetry 100 100 100 10/30/17 04:00 10/30/17 08:00 Temperature 98.1 F 97.5 F L Pulse Rate 105 H 118 H Respiratory Rate 18 18 Blood Pressure 140/71 146/80 H Pulse Oximetry 99 99 Intake & Output 10/29/17 10/30/17 10/30/17 18:59 06:59 18:59 Intake Total 1760 / 1760 942 / 942 1100 / 1100 Output Total 700 / 700 2805 / 2805 Balance 1060 / 1060 -1863 / -1863 1100 / 1100 Weight 112.1 kg Intake: IV 1400 / 1400 100 / 100 1100 / 1100 NS Inj 1,000 ML @ 100 mls/hr IV 1000 / 1000 1000 / 1000 .CONT .Q10H [facility] Rx#:[id number] Maxipime Inj 2,000 MG In NS Inj 200 / 200 100 / 100 100 / 100 100 ML @ 200 mls/hr IV.SIG Q8H [facility] Rx#:[id number] KCl 10 mEq Premix Inj 10 meq In 100 / 100 100 ml @ 100 mls/hr IV.SIG Q1H [facility] Rx#:[id number] Oral 360 / 360 442 / 442 Intake (Blood Product) Amt 400 / 400 Rbc As-3 Leukoreduced Unit 400 / 400 [id number] Rbc As-3 Leukoreduced Unit 0 / 0 [id number] Rbc As-3 Leukoreduced Unit 0 / 0 [id number] Output: Urine 300 / 300 Stool 400 / 400 Urine Amount (Catheter) 2750 / 2750 Indwelling Urethral Catheter 2750 / 2750 Wound Drainage 55 / 55 ZAMZAM Drain 55 / 55 Other: Mode Setting Left Upper Groin Continuous Midline Groin Continuous Perineal Continuous Right Lower Groin Thigh Continuous Date of Last Bowel Movement 10/29/17 10/30/17 # Emeses 1 10/24/17 17:30 Blood - Peripheral Aerobic Blood Culture - Final No growth in 5 days 10/24/17 17:30 Blood - Peripheral Anaerobic Blood Culture - Final No growth in 5 days 10/24/17 17:40 Blood - Peripheral Aerobic Blood Culture - Final No growth in 5 days 10/24/17 17:40 Blood - Peripheral Anaerobic Blood Culture - Final No growth in 5 days Lab - Hematology Results 10/29/17 10/30/17 06:30 06:54 WBC 10.5 12.5 H RBC 2.48 L 4.08 Hgb 7.0 L 11.6 D Hct 20.3 L* 34.7 L MCV 82.0 85.0 MCH 28.1 28.4 MCHC 34.3 33.4 RDW 17.2 16.4 Plt Count 306 255 MPV 7.1 7.5 Neut % (Auto) 75.8 H Lymph % (Auto) 13.3 Coke % (Auto) 7.8 Eos % (Auto) 2.2 Baso % (Auto) 0.9 Neut # (Auto) 9.5 H Lymph # (Auto) 1.7 Coke # (Auto) 1.0 H Eos # (Auto) 0.3 Baso # (Auto) 0.1 WBC Differential . Differential Comment Auto diff final Hematology Comments Lab - Chemistry Results 10/28/17 10/29/17 10/29/17 17:58 06:30 06:30 Sodium 141 143 Potassium 3.3 L 2.9 L* Chloride 110 H 112 H Carbon Dioxide 22.0 22.9 Anion Gap 9 8 BUN 7 6 L Creatinine 0.60 0.51 Estimated GFR Greater than 89 Greater than 89 Random Glucose 78 75 Calcium 7.7 L 7.5 L Magnesium Total Bilirubin AST ALT Alkaline Phosphatase Total Protein Albumin Prealbumin 11 L 10/29/17 10/29/17 10/30/17 06:30 17:35 06:54 Sodium 143 141 Potassium 3.1 L 4.4 D Chloride 113 H 113 H Carbon Dioxide 22.0 22.0 Anion Gap 8 6 BUN 7 7 Creatinine 0.66 0.60 Estimated GFR Greater than 89 Greater than 89 Random Glucose 111 H 77 Calcium 7.5 L 8.0 L Magnesium 1.3 L 1.3 L 1.5 Total Bilirubin 0.7 AST 45 H ALT 22 Alkaline Phosphatase 175 H Total Protein 5.2 L Albumin 1.1 L Prealbumin Imaging: ITS Impressions Tibia/Fibula X-Ray 09/27/17 00:00 CONCLUSION: No acute left leg abnormality is identified. Abdomen/Pelvis CT 09/27/17 08:10 CONCLUSION: 1. Mild hepatic steatosis. 2. Thickening of the colon secondary to lack of distention versus colitis. 3. Left lower lobe consolidation and/or atelectasis. There does appear to be a 1.4 cm cavitary area which makes consolidation likely. Head CT 09/27/17 08:10 CONCLUSION: No acute intracranial abnormality is seen. Chest CTA 09/27/17 08:22 CONCLUSION: 1. No pulmonary embolus. 2. Consolidation or atelectasis at the left lower lobe. Venous Doppler Study 09/29/17 00:00 CONCLUSION: No evidence of deep venous thrombosis. Knee CT 10/18/17 00:00 CONCLUSION: 1. Small joint effusion. 2. Nonspecific subcutaneous edema in the subcutaneous soft tissues above and below the knee. 3. No significant changes compared to the prior exam. Ankle X-Ray 10/19/17 00:00 CONCLUSION: 1. No acute fracture or dislocation. Knee X-Ray 10/19/17 00:00 CONCLUSION: 1. Total knee prosthesis in place. 2. Moderate-sized knee joint effusion. Chest X-Ray 10/24/17 00:00 CONCLUSION: No acute cardiopulmonary disease. Physical Exam: GENERAL: Alert and oriented, no acute distress. HEENT: Pupils reactive to light. Extraocular movements intact. No icterus. NECK: Supple without adenopathy. No swelling. LUNGS: Decreased breath sounds. HEART: Regular S1 and S2 without murmurs or rubs or gallops. ABDOMEN: Obese, soft. Nontender. Postoperative abdominal incisions with nedra in place along the thighs and inferior abdomen wall with areas of dehiscence. EXTREMITIES: swelling of the left knee. less warmth. Tiny hole a couple millimeters at the lower aspect of the knee surgical incision. Purulent drainage on noted 10/19. Occasional droplets of clear serous fluid. SKIN: No diffuse rash. NEUROLOGIC: Awake and alert and oriented. Nonfocal. PSYCH: Pleasant, calm and cooperative. Assessment and Plan - Plan IMPRESSION: Neutropenic sepsis WBC now elevated. Receive Neupogen but the white blood cell count did not plateau is continuing to rise. Possibly secondary to infection. Leucopenia, pancytopenia: ? MTX, ? Psych meds, ? Sepsis contributing. Abdominal fold cellulitis/skin breakdown. Post incision and debridement and closure of skin fold. General surgery following. She dispose any panniculectomy. Groin cellulitis, Mons pubis cellulitis/skin breakdown. Neurosurgery following. H/o fall with scraping of left knee. Left knee hardware in place. CT with fluid collection. Left knee infection - prior wound culture had Pseudomonas and group B beta strep. Repeat culture had no growth. Diarrhea - Positive C. difficile. RECOMMENDATIONS: Continue Cefepime IV for the left knee infection and abdominal wound infection. Continue Vancomycin for C. difficile treat until completion of cefepime. Her nutrition needs to be addressed. ebony Levy: regarding wound dehiscence. to follow up and decide if any further debridement needed.
[2017-10-30] MEDS ORDERED: Cathflo Activase Inj 2 MG Vial I-CATHETER PRN (18:24)
[2017-10-31] MEDS: Sod Chloride 0.9% Inj 1,000 ML IV.CONT SCH (02:13)
--- NOTE | 2017-10-31 08:16 | P.PNFP ---
Subjective Interval history: Patient seen and examined this morning. No acute events overnight. Patient seems more fatigued this morning as patient states that she "did not sleep well overnight." She is oriented to PPT 2, however states it is currently 1969. Otherwise she endorses no complaints denies complete review of systems including not limited to any fevers, chills, shortness of breath, chest pain, abdominal pain, or calf tenderness. <Chaz Vivar - 10/31/17 11:50> Results - Labs Result diagrams: 10/31/17 10:15 10/31/17 10:15 <Abbey Goldman - 10/31/17 13:58> Abnormal lab results 10/31/17 10/31/17 Range/Units 10:15 10:15 WBC 11.6 H (4.0-11.0) th/mm3 RBC 3.91 L (4.00-5.30) mil/mm3 Hgb 11.1 L (11.6-15.3) gm/dL Hct 32.7 L (35.0-46.0) % Potassium 3.3 L D (3.5-5.1) meq/L Chloride 112 H (98-107) meq/L Calcium 8.0 L (8.5-10.1) mg/dL Short CBC 10/31/17 Range/Units 10:15 WBC 11.6 H (4.0-11.0) th/mm3 Hgb 11.1 L (11.6-15.3) gm/dL Hct 32.7 L (35.0-46.0) % Plt Count 291 (150-450) th/mm3 BMP 10/31/17 10:15 Sodium 143 Potassium 3.3 L D Chloride 112 H Carbon Dioxide 23.8 BUN 7 Creatinine 0.65 Calcium 8.0 L <Abbey Goldman - 10/31/17 13:58> Physical Exam Vital signs: Vital Signs 10/30/17 16:00 10/30/17 16:54 10/30/17 20:00 Temperature 97.4 F L 97.8 F Pulse Rate 110 H 123 H Respiratory Rate 18 16 18 Blood Pressure 127/81 137/73 Pulse Oximetry 100 100 10/30/17 20:30 10/30/17 22:30 10/31/17 00:00 Temperature 97.7 F Pulse Rate 107 H Respiratory Rate 18 18 18 Blood Pressure 152/73 H Pulse Oximetry 98 10/31/17 04:00 10/31/17 08:00 Temperature 97.7 F 98.0 F Pulse Rate 90 70 Respiratory Rate 18 14 Blood Pressure 152/95 H 155/100 H Pulse Oximetry 100 97 Intake & Output 10/30/17 10/31/17 10/31/17 18:59 06:59 18:59 Intake Total 1930 / 1930 2480 / 2480 Output Total 1300 / 1300 1205 / 1205 Balance 630 / 630 1275 / 1275 Weight 107.4 kg Intake: IV 1450 / 1450 100 / 100 NS Inj 1,000 ML @ 100 mls/hr IV 1000 / 1000 .CONT .Q10H [facility] Rx#:[id number] Maxipime Inj 2,000 MG In NS Inj 200 / 200 100 / 100 100 ML @ 200 mls/hr IV.SIG Q8H [facility] Rx#:[id number] NS Inj 250 ML @ 15 mls/hr IV. 250 / 250 SIG ONCE [facility] Rx#:[id number] Oral 480 / 480 480 / 480 Anesthesia Amount 800 / 800 Other 1100 / 1100 Output: Urine 800 / 800 1200 / 1200 Stool 500 / 500 Wound Drainage 5 / 5 ZAMZAM Drain 5 / 5 Other: Mode Setting Left Upper Groin Continuous Midline Groin Continuous Perineal Continuous Right Lower Groin Thigh Continuous Other Intake Source Saline Solution # Voids 2 # Incontinent Voids 1 Date of Last Bowel Movement 10/30/17 10/30/17 # Incontinent Bowel Movements 4 # Emeses 1 <Abbey Goldman - 10/31/17 13:58> Vital Signs 10/30/17 12:00 10/30/17 16:00 10/30/17 16:54 Temperature 97.6 F 97.4 F L Pulse Rate 113 H 110 H Respiratory Rate 18 18 16 Blood Pressure 137/77 127/81 Pulse Oximetry 99 100 10/30/17 20:00 10/30/17 20:30 10/30/17 22:30 Temperature 97.8 F Pulse Rate 123 H Respiratory Rate 18 18 18 Blood Pressure 137/73 Pulse Oximetry 100 10/31/17 00:00 10/31/17 04:00 Temperature 97.7 F 97.7 F Pulse Rate 107 H 90 Respiratory Rate 18 18 Blood Pressure 152/73 H 152/95 H Pulse Oximetry 98 100 Intake & Output 10/30/17 10/31/17 10/31/17 18:59 06:59 18:59 Intake Total 1930 / 1930 2480 / 2480 Output Total 1300 / 1300 1205 / 1205 Balance 630 / 630 1275 / 1275 Weight 107.4 kg Intake: IV 1450 / 1450 100 / 100 NS Inj 1,000 ML @ 100 mls/hr IV 1000 / 1000 .CONT .Q10H [facility] Rx#:[id number] Maxipime Inj 2,000 MG In NS Inj 200 / 200 100 / 100 100 ML @ 200 mls/hr IV.SIG Q8H [facility] Rx#:[id number] NS Inj 250 ML @ 15 mls/hr IV. 250 / 250 SIG ONCE [facility] Rx#:[id number] Oral 480 / 480 480 / 480 Anesthesia Amount 800 / 800 Other 1100 / 1100 Output: Urine 800 / 800 1200 / 1200 Stool 500 / 500 Wound Drainage 5 / 5 ZAMZAM Drain 5 / 5 Other: Mode Setting Left Upper Groin Continuous Midline Groin Continuous Perineal Continuous Right Lower Groin Thigh Continuous Other Intake Source Saline Solution # Voids 2 # Incontinent Voids 1 Date of Last Bowel Movement 10/30/17 10/30/17 # Incontinent Bowel Movements 4 # Emeses 1 <Chaz Vivar H - 10/31/17 08:16> Narrative: GENERAL: Morbidly obese -[place] female lying in bed in no acute distress. Patient appears that she did not sleep well overnight per her report. SKIN: Cool and dry. No rash. Lower abdominal and bilateral lower extremity wounds covered and labeled with ABD pad/sterile dressings. Dressings without signs of purulent drainage or acute bleeding, but are damp to the touch. Bedding overlying affected area saturated with what appears to be sweat as fluid is not serosanguineous, purulent, or bloody. Per prior report, open crural wounds bilat. nedra vertical midline with open incision sites on sides of abdomen bilaterally. PICC line inserted in the right upper extremity without surrounding erythema, warmth, or other signs of infection. HEENT: Atraumatic, normocephalic with extraocular motions intact. No rhinorrhea. No visible lymphadenopathy or jugulovenous distension appreciated. CARDIOVASCULAR: Tachycardic rate (baseline) and regular rhythm without obvious murmurs, gallops, or rubs. RESPIRATORY: Clear to anterior auscultation bilaterally with no crackles, wheezes, or rhonchi. Breath sounds difficult to auscultate due to body habitus. No increased work of breathing. GASTROINTESTINAL: Abdomen diffuse, soft with positive bowel sounds. Patient nontender in the upper 2 quadrants, deferred tenderness evaluation and lower quadrants due to wounds. ZAMZAM drain in place without surrounding signs of erythema, warmth, or other signs of infection. No masses appreciated. Rectal tube in place. Hopper catheter in place. MUSCULOSKELETAL: No cyanosis. Stable bilateral lower extremities with 1+ pitting edema. No calf tenderness. Left knee effusion stable. SCDs in place. NEURO/PSYCH: Afocal. Patient awake and alert, however only oriented to PPT 2. Normal speech. <Chaz Vivar - 10/31/17 09:02> - Urinary Catheter Management Indwelling Urethral Catheter Cath placed during this visit: no <Abbey Goldman - 10/31/17 13:58> yes, but has since been removed by the nurse <Chaz Vivar - 10/31/17 11:50> Reason for continuing: Acute urinary retention <Chaz Vivar - 10/31/17 08:16 > Insertion date: 09/27/17 <Chaz Vivar - 10/31/17 08:16> Insertion time: 08:20 <Chaz Vivar - 10/31/17 08:16> Removal date: 10/05/17 <Chaz Vivar 10/31/17 08:16> Removal time: 17:30 <Chaz Vivar - 10/31/17 08:16> Assessment and Plan - Assessment (1) Open wound of abdominal wall Code(s): S31.109A - Unspecified open wound of abdominal wall, unspecified quadrant without penetration into peritoneal cavity, initial encounter Status : Acute (2) Cellulitis of knee, left Code(s): L03.116 - Cellulitis of left lower limb Status: Acute (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 difficile diarrhea Code(s): A04.72 - Enterocolitis due to Clostridium difficile, not specified as recurrent Status: Acute (7) Fall Code(s): W19.XXXA - Unspecified fall, initial encounter Status: Acute (8) Hypertension Code(s): I10 - Essential (primary) hypertension Status: Acute (9) Schizophrenia Code(s): F20.9 - Schizophrenia, unspecified Status: Chronic (10) Tachycardia Code(s): R00.0 - Tachycardia, unspecified Status: Chronic (11) Nutrition, metabolism, and development symptoms Code(s): R63.8 - Other symptoms and signs concerning food and fluid intake Status: Acute <Abbey Goldman - 10/31/17 13:58> (1) Open wound of abdominal wall Code(s): S31.109A - Unspecified open wound of abdominal wall, unspecified quadrant without penetration into peritoneal cavity, initial encounter Status : Acute Plan: -Wound Culture 09/27/17: Pseudomonas and Group B Step -Blood Cultures 10/24/17: Negative -Tissue Cultures 10/09/17: Negative -General surgery consulted, Surgical debridement 10/09, wound VAC applied. VAC changed 10/12 removed 10/15. Debridement, irrigation, with suturing performed on . -Ensure ordered to improve nutritional status for increased wound healing -Dressing changes per general surgery Medications: -Cefepime IV (09/29/17-11/08/17) per ID; PICC line placed for antibiotic administration at rehab once wounds are stable for DC -Patient received 2 weeks of Keflex 500mg PO by Orthopedic surgery as outpatient prior to admission -Levaquin stopped 10/20 per ID -Diflucan course completed 10/18 (2) Cellulitis of knee, left Code(s): L03.116 - Cellulitis of left lower limb Status: Acute Plan: -ID consulted, recommend Cefepime until 11/08/17 -Orthopedic surgery consulted, no further recommendations at this time Medications: -Cefepime IV (09/29/17-11/08/17) per ID; PICC line placed for antibiotic administration at rehab once wounds are stable for DC -Patient received 2 weeks of Keflex 500mg PO by Orthopedic surgery as outpatient prior to admission -Levaquin stopped 10/20 per ID -Diflucan course completed 10/18 (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 KAMRONTD, cleared from ID standpoint to go rehab with IV Cefepime until 11/08/17 -Orthopedics ([place] for Dr. 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 She completed rehabilitation and was discharged home August 23. Patient was on approximately 2 weeks of po Keflex 500 mg. Per Ortho, examination of left knee shows no evidence of infection. (4) Hypokalemia Code(s): E87.6 - Hypokalemia Status: Resolved Plan: -Patient with hypokalemia during hospitalization. Appears to be not tolerating ER capsules as they were found whole in her rectal tube reservoir. Medications: -Magnesium 64 mg daily -Potassium Chloride 40mEq BID (Non-ER/Enteric Coated) -Plan to treat as necessary (5) Anemia Code(s): D64.9 - Anemia, unspecified Status: Resolved Plan: -Patient found to have asymptomatic anemia H/H of 7/20.3 with MCV of 82 on -Patient has received multiple transfusions during hospitalization with hemoglobin ranging from 7.5 to 8.7 over the last week -Rectal tube and Hopper catheter without any signs of acute bleeding -Dressings without obvious signs of bleeding -Due to critical condition and severity of abdominal wounds with decreasing hemoglobin, 2 units PRBC ordered -Patient did receive Lasix between units to assist with possible fluid overload -Posttransfusion H/H 11.6/34.7 on 10/30/17 (6) C. difficile diarrhea Code(s): A04.72 - Enterocolitis due to Clostridium difficile, not specified as recurrent Status: Acute Plan: -C diff cultures positive 10/19/17 -Vancomycin PO 125 4 times daily until completion of Cefepime per ID -Continue with probiotics. -Rectal tube in place (7) Fall Code(s): W19.XXXA - Unspecified fall, initial encounter Status: Acute Plan: Patient with fall on 10/19/17. No loss of consciousness, no head injury, left knee and ankle pain. -Knee x-ray- Prosthesis in place, No abnormality appreciated -Ankle x-ray- No abnormality appreciated -Patient to continue with PT (8) Hypertension Code(s): I10 - Essential (primary) hypertension Status: Acute Plan: History of hypertension -Continue to monitor -Clonidine PRN for BP > 180/100 (9) Schizophrenia Code(s): F20.9 - Schizophrenia, unspecified Status: Chronic Plan: -Psychiatry consulted upon admission Medications: -Continue Abilify 30 mg for psychosis -Continue buspirone 30 mg, trazodone 100 mg and Cymbalta 60 mg -Hold anticholinergics per Psych (10) Tachycardia Code(s): R00.0 - Tachycardia, unspecified Status: Chronic Plan: -Patient with chronic history of tachycardia -EKG 09/27/17: Sinus tachycardia with rate of [address] or interval changes. (Per medical team read) Medications: -Continue home diltiazem and carvedilol (11) Nutrition, metabolism, and development symptoms Code(s): R63.8 - Other symptoms and signs concerning food and fluid intake Status: Acute Plan: Fluids: KVO/5mls/hr to avoid fluid overload during transfusion Electrolytes: Replete as needed. Nutrition: Cardiac diet, continue to monitor po intake, supplement with ensure. Encouraged patient that she needed to increase p.o. intake in order to heal -All Source Collection Manager consulted for calorie count and nutritional guidance DVT prophylaxis: SCDs, Defer medical prophylaxis due to anemia Continue to work with OT/PT to get OOB. <Chaz Vivar - 10/31/17 11:44> - Attending Attestation Patient seen, discussed with Dr. Vivar. I agree with the plan. Ana Goldman MD <Abbey Goldman - 10/31/17 13:58> <Chaz Vivar - Last Filed: 10/31/17 11:44> (1) Open wound of abdominal wall Qualifiers: Encounter type: initial encounter Qualified Code(s): S31.109A - Unspecified open wound of abdominal wall, unspecified quadrant without penetration into peritoneal cavity, initial encounter (5) Anemia Qualifiers: Anemia type: unspecified type Qualified Code(s): D64.9 - Anemia, unspecified (8) Hypertension Qualifiers: Hypertension type: essential hypertension Qualified Code(s): I10 - Essential (primary) hypertension <Abbey Goldman - Last Filed: 10/31/17 13:58> (1) Open wound of abdominal wall Qualifiers: Encounter type: initial encounter Qualified Code(s): S31.109A - Unspecified open wound of abdominal wall, unspecified quadrant without penetration into peritoneal cavity, initial encounter (5) Anemia Qualifiers: Anemia type: unspecified type Qualified Code(s): D64.9 - Anemia, unspecified (8) Hypertension Qualifiers: Hypertension type: essential hypertension Qualified Code(s): I10 - Essential (primary) hypertension <Chaz Vivar - Last Filed: 10/31/17 11:44> (1) Open wound of abdominal wall Qualifiers: Encounter type: initial encounter Qualified Code(s): S31.109A - Unspecified open wound of abdominal wall, unspecified quadrant without penetration into peritoneal cavity, initial encounter (5) Anemia Qualifiers: Anemia type: unspecified type Qualified Code(s): D64.9 - Anemia, unspecified (8) Hypertension Qualifiers: Hypertension type: essential hypertension Qualified Code(s): I10 - Essential (primary) hypertension <Abbey Goldman - Last Filed: 10/31/17 13:58> (1) Open wound of abdominal wall Qualifiers: Encounter type: initial encounter Qualified Code(s): S31.109A - Unspecified open wound of abdominal wall, unspecified quadrant without penetration into peritoneal cavity, initial encounter (5) Anemia Qualifiers: Anemia type: unspecified type Qualified Code(s): D64.9 - Anemia, unspecified (8) Hypertension Qualifiers: Hypertension type: essential hypertension Qualified Code(s): I10 - Essential (primary) hypertension
[2017-10-31] MEDS: Folic Acid 1 MG Tablet PO SCH (09:54)
[2017-10-31] MEDS: Lactobacillus Acidophilus/L. Spores Tablet PO SCH ×2 (09:54→22:14)
[2017-10-31] MEDS: traZODone 100 MG Tablet PO SCH (09:54)
[2017-10-31] MEDS: Metoprolol Tartrate 25 MG Tablet PO SCH ×2 (09:54→22:15)
[2017-10-31] MEDS: Pantoprazole Sodium 20 MG DR Tablet PO SCH (09:54)
[2017-10-31] MEDS: dilTIAZem 60 MG Tablet PO SCH ×3 (09:54→17:48)
[2017-10-31] MEDS: Heparin Central Flush 100 UNIT/ML 5 ML Vial IV.FLUSH SCH (09:55)
[2017-10-31] MEDS: Duloxetine 60 MG DR Capsule PO SCH (09:55)
[2017-10-31 10:34] LABS: Hematocrit 32.7 % (35.0-46.0); Hemoglobin 11.1 gm/dL (11.6-15.3); Mean Corpuscular Hemoglobin 28.5 pg (27.0-34.0); Mean Corpuscular Volume 83.7 fL (80.0-100.0); Mean Platelet Volume 7.1 fL (7.0-11.0); Platelet Count 291 th/mm3 (150-450); Red Blood Count 3.91 mil/mm3 (4.00-5.30); Red Cell Distribution Width 16.3 % (11.6-17.2); White Blood Count 11.6 th/mm3 (4.0-11.0)
[2017-10-31 11:08] LABS: Anion Gap 7 meq/L (5-15); Blood Urea Nitrogen 7 mg/dL (7-18); Carbon Dioxide 23.8 meq/L (21.0-32.0); Chloride 112 meq/L (98-107); Glomerular Filtration Rate Greater Than 89 mL/min (>89); Glucose,Random 76 mg/dL (74-106); Magnesium 1.5 mg/dL (1.5-2.5); Potassium 3.3 meq/L (3.5-5.1); Sodium 143 meq/L (136-145)
--- NOTE | 2017-10-31 12:33 | P.DIET ---
Nutritional Evaluation Type of nutrition evaluation: initial [place] [facility] [place] Pt with decreased intake with healing wounds) Subjective Subjective Comments: Per EMR/ Feeding Assessment, the pt has been eating ~75%. Objective - Diagnosis Sepsis, Anemia, Neutropenia - Objective % IBW: 241 (IBW = 98#) Body Weight Used for Calculations: Upper end of IBW (49 kg) Energy Needs - Lower Range (kCal/kg): 30 Energy Needs - Upper Range (kCal/kg): 35 Lower Limit kCal/kg (kCals): 1,470 Upper Limit kCal/kg (kCals): 1,715 Lower Limit Protein Factor (Grams per Kg): 1.0 Upper Limit Protein Factor (Grams per Kg): 1.5 Lower Protein Needs (Protein): 49 Upper Protein Needs (Protein): 74 Fluid Factor (ml/kg): 35 Estimated Fluid Needs (ml): 1,715 Dietitian Reviewed in Medical Record: Current diet, Curent medications, Intake & Output, Labs, Medical history, Wound/DTI Diet Order: Heart Healthy, Ensure tid Wound Care Note: Per Wound Management Note: R and L perineal area- stage 3 Pt also has an open abdominal wound Objective Comments: 10/12 I&D of inferior abdominal wall and inner thigh wounds Feeding - Current PO Supplement Current Supplement: Ensure Original Current Frequency of Supplement: Three times a day Current kCals Provided by Supplement: 250 (per 8 oz) Current Protein Provided by Supplement: 9 (per 8 oz) Assessment Assessment: Pt is at high nutrition risk 2' to dx and presence of wounds. Poor po intake has been reported. Calorie counts have been initiated and will run from 10/31- . For now, would recommend the addition of daily MVI/min and Hermes supplement , a therapeutic nutritional supplement that may aid in healing. Weight review indicates very erratic weights have been recorded. Recommendations: 1. Continue current diet and Ensure. 2. Please order Hermes bid and MVI/min q day 3. Calorie counts from 10/31-11/02 Dietitian to Monitor: Lab values, Supplement acceptance, Intake & Output, Diet tolerance, Weight change, PO Intake, Wound/skin status, Medical course
[2017-10-31] MEDS ORDERED: Potassium Chloride 25 MEQ Effervescent Tablet PO ONE (14:00)
[2017-10-31] MEDS: Multivitamin Inj 10 ML, Folic Acid Inj 1 MG in Sodium Chlor 0.9% Inj 500 ML IV.SIG SCH (22:16)
[2017-11-01] MEDS: Sod Chloride 0.9% Inj 1,000 ML IV.CONT SCH (00:45)
[2017-11-01] MEDS ORDERED: Chlorhexidine Gluconate 2% 1 Pack (2 Cloths) TOPICAL SCH (04:15)
[2017-11-01] MEDS ORDERED: Sodium Chlor 0.9% Inj 500 ML IV.SIG SCH (05:00)
[2017-11-01 07:40] LABS: Baso # (Auto) 0.1 th/mm3 (0.0-0.2); Baso % (Auto) 0.6 % (0.0-2.0); Eos # (Auto) 0.2 th/mm3 (0.0-0.4); Eos % (Auto) 1.4 % (0.0-4.0); Hematocrit 32.6 % (35.0-46.0); Hemoglobin 11.1 gm/dL (11.6-15.3); Lymph # (Auto) 1.5 th/mm3 (1.0-4.8); Lymph % (Auto) 11.5 % (9.0-44.0); Mean Corpuscular HGB Conc 34.1 % (32.0-36.0); Mean Corpuscular Volume 85.1 fL (80.0-100.0); Mean Platelet Volume 7.2 fL (7.0-11.0); Mono # (Auto) 0.9 th/mm3 (0.0-0.9); Mono % (Auto) 6.7 % (0.0-8.0); Neut # (Auto) 10.2 th/mm3 (1.8-7.7); Neut % (Auto) 79.8 % (16.0-70.0); Platelet Count 250 th/mm3 (150-450); Red Blood Count 3.83 mil/mm3 (4.00-5.30); Red Cell Distribution Width 16.9 % (11.6-17.2); White Blood Count 12.8 th/mm3 (4.0-11.0)
--- NOTE | 2017-11-01 08:14 | P.PNFP ---
Subjective Interval history: Patient seen and examined this morning. No acute events overnight per nursing staff. Patient has been n.p.o. since midnight as general surgery plans to take patient to the operating room for further evaluation and possible intervention. Patient is aware of plans and agrees to them. Currently she is oriented PPT 2 which is stable from yesterday, however her mood is slightly flattened. Otherwise she has no acute complaints. She denies a complete review of systems including but not limited to any fevers, chills, shortness of breath, chest pain , nausea/vomiting, or calf tenderness. Results - Labs Result diagrams: 11/01/17 06:33 11/01/17 06:33 Abnormal lab results 10/31/17 10/31/17 11/01/17 Range/Units 10:15 10:15 06:33 WBC 11.6 H 12.8 H (4.0-11.0) th/mm3 RBC 3.91 L 3.83 L (4.00-5.30) mil/mm3 Hgb 11.1 L 11.1 L (11.6-15.3) gm/dL Hct 32.7 L 32.6 L (35.0-46.0) % Neut % (Auto) 79.8 H (16.0-70.0) % Neut # (Auto) 10.2 H (1.8-7.7) th/mm3 Potassium 3.3 L D (3.5-5.1) meq/L Chloride 112 H (98-107) meq/L Calcium 8.0 L (8.5-10.1) mg/dL Short CBC 10/31/17 11/01/17 Range/Units 10:15 06:33 WBC 11.6 H 12.8 H (4.0-11.0) th/mm3 Hgb 11.1 L 11.1 L (11.6-15.3) gm/dL Hct 32.7 L 32.6 L (35.0-46.0) % Plt Count 291 250 (150-450) th/mm3 [facility] 10/31/17 10:15 Sodium 143 Potassium 3.3 L D Chloride 112 H Carbon Dioxide 23.8 BUN 7 Creatinine 0.65 Calcium 8.0 L Physical Exam Vital signs: Vital Signs 10/31/17 12:00 10/31/17 16:00 10/31/17 20:00 Temperature 98.2 F 98.1 F Pulse Rate 99 H 106 H 112 H Respiratory Rate 16 18 Blood Pressure 134/72 123/68 Pulse Oximetry 98 97 11/01/17 00:00 11/01/17 04:00 Temperature 97.6 F 97.7 F Pulse Rate 110 H 94 H Respiratory Rate 18 16 Blood Pressure 147/90 H 129/88 Pulse Oximetry 96 97 Intake & Output 10/31/17 11/01/17 11/01/17 18:59 06:59 18:59 Intake Total 100 / 100 1610.2 / 1610.2 Output Total 300 / 300 1100 / 1100 Balance -200 / -200 510.2 / 510.2 Weight 103.4 kg Intake: IV 100 / 100 1610.2 / 1610.2 NS Inj 1,000 ML @ 5 mls/hr IV. 1000 / 1000 CONT .Q24H [facility] Rx#:[id number] Maxipime Inj 2,000 MG In NS Inj 100 / 100 100 / 100 100 ML @ 200 mls/hr IV.SIG Q8H [facility] Rx#:[id number] MVI-12 Inj 10 ML Folvite Inj 1 510.2 / 510.2 MG In NS Inj 500 ML @ 125 mls/ hr IV.SIG DAILY [facility] Rx#: [id number] Output: Urine 1100 / 1100 Urine Amount (Catheter) 300 / 300 Female External 300 / 300 Other: Date of Last Bowel Movement 10/30/17 Narrative: GENERAL: Morbidly obese -Armenian female lying in bed in no acute distress. SKIN: Cool and dry. No rash. Lower abdominal and bilateral lower extremity wounds uncovered with visible non-intact sutures. Incision sites and ABD wounds with packing. No acute signs of purulent drainage or acute bleeding. Bedding overlying affected area saturated with what appears to be sweat as fluid is not serosanguineous, purulent, or bloody. Corrine vertical midline with open incision sites on sides of abdomen bilaterally. PICC line inserted in the right upper extremity without surrounding erythema, warmth, or other signs of infection. HEENT: Atraumatic, normocephalic with extraocular motions intact. No rhinorrhea. No visible lymphadenopathy or jugulovenous distension appreciated. CARDIOVASCULAR: Tachycardic rate (baseline) and regular rhythm without obvious murmurs, gallops, or rubs. RESPIRATORY: Clear to anterior auscultation bilaterally with no crackles, wheezes, or rhonchi. Breath sounds difficult to auscultate due to body habitus. No increased work of breathing. GASTROINTESTINAL: Abdomen diffuse, soft with positive bowel sounds. Patient nontender in the upper 2 quadrants, deferred tenderness evaluation and lower quadrants due to wounds. ZAMZAM drain in place without surrounding signs of erythema, warmth, or other signs of infection. No masses appreciated. Rectal tube in place. Hopper catheter in place. MUSCULOSKELETAL: No cyanosis. Stable bilateral lower extremities with 1+ pitting edema. No calf tenderness. Left knee effusion stable. SCDs not in place. NEURO/PSYCH: Afocal. Patient awake and alert, however only oriented to PPT 2. Normal speech. Flattened mood. - Urinary Catheter Management Female External Cath placed during this visit: no Indwelling Urethral Catheter Cath placed during this visit: yes, but has since been removed by the nurse Reason for continuing: Acute urinary retention Insertion date: 09/27/17 Insertion time: 08:20 Removal date: 10/05/17 Removal time: 17:30 Assessment and Plan - Assessment (1) Open wound of abdominal wall Code(s): S31.109A - Unspecified open wound of abdominal wall, unspecified quadrant without penetration into peritoneal cavity, initial encounter Status : Acute Plan: -Wound Culture 09/27/17: Pseudomonas and Group B Step -Blood Cultures 10/24/17: Negative -Tissue Cultures 10/09/17: Negative -General surgery consulted, Surgical debridement 10/09, wound VAC applied. VAC changed 10/12 removed 10/15. Debridement, irrigation, with suturing performed on . -Plan for exam under anesthesia 11/01/17, patient has been NPO since midnight -Ensure ordered to improve nutritional status for increased wound healing -Dressing changes per general surgery Medications: -Cefepime IV (09/29/17-11/08/17) per ID; PICC line placed for antibiotic administration at rehab once wounds are stable for DC -Patient received 2 weeks of Keflex 500mg PO by Orthopedic surgery as outpatient prior to admission -Levaquin stopped 10/20 per ID -Diflucan course completed 10/18 (2) Cellulitis of knee, left Code(s): L03.116 - Cellulitis of left lower limb Status: Acute Plan: -ID consulted, recommend Cefepime until 11/08/17 -Orthopedic surgery consulted, no further recommendations at this time Medications: -Cefepime IV (09/29/17-11/08/17) per ID; PICC line placed for antibiotic administration at rehab once wounds are stable for DC -Patient received 2 weeks of Keflex 500mg PO by Orthopedic surgery as outpatient prior to admission -Levaquin stopped 10/20 per ID -Diflucan course completed 10/18 (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 NGTD, cleared from ID standpoint to go rehab with IV Cefepime until 11/08/17 -Orthopedics ([place] for Dr. 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 She completed rehabilitation and was discharged home August 23. Patient was on approximately 2 weeks of po Keflex 500 mg. Per Ortho, examination of left knee shows no evidence of infection. (4) Hypokalemia Code(s): E87.6 - Hypokalemia Status: Resolved Plan: -Patient with hypokalemia during hospitalization. Appears to be not tolerating ER capsules as they were found whole in her rectal tube reservoir. Medications: -Magnesium 64 mg daily -Potassium Chloride 40mEq BID (Non-ER/Enteric Coated) -Plan to treat as necessary (5) Anemia Code(s): D64.9 - Anemia, unspecified Status: Resolved Plan: -Patient found to have asymptomatic anemia H/H of 7/20.3 with MCV of 82 on -Patient has received multiple transfusions during hospitalization with hemoglobin ranging from 7.5 to 8.7 over the last week -Rectal tube and Hopper catheter without any signs of acute bleeding -Dressings without obvious signs of bleeding -Due to critical condition and severity of abdominal wounds with decreasing hemoglobin, 2 units PRBC ordered -Patient did receive Lasix between units to assist with possible fluid overload -Posttransfusion H/H 11.6/34.7 on 10/30/17 (6) C. difficile diarrhea Code(s): A04.72 - Enterocolitis due to Clostridium difficile, not specified as recurrent Status: Acute Plan: -C diff cultures positive 10/19/17 -Vancomycin PO 125 4 times daily until completion of Cefepime per ID -Continue with probiotics. -Rectal tube in place (7) Fall Code(s): W19.XXXA - Unspecified fall, initial encounter Status: Acute Plan: Patient with fall on 10/19/17. No loss of consciousness, no head injury, left knee and ankle pain. -Knee x-ray- Prosthesis in place, No abnormality appreciated -Ankle x-ray- No abnormality appreciated -Patient to continue with PT (8) Hypertension Code(s): I10 - Essential (primary) hypertension Status: Acute Plan: History of hypertension -Continue to monitor -Clonidine PRN for BP > 180/100 (9) Schizophrenia Code(s): F20.9 - Schizophrenia, unspecified Status: Chronic Plan: -Psychiatry consulted upon admission Medications: -Continue Abilify 30 mg for psychosis -Continue buspirone 30 mg, trazodone 100 mg and Cymbalta 60 mg -Hold anticholinergics per Psych (10) Tachycardia Code(s): R00.0 - Tachycardia, unspecified Status: Chronic Plan: -Patient with chronic history of tachycardia -EKG 09/27/17: Sinus tachycardia with rate of [address] or interval changes. (Per medical team read) Medications: -Continue home diltiazem and carvedilol (11) Nutrition, metabolism, and development symptoms Code(s): R63.8 - Other symptoms and signs concerning food and fluid intake Status: Acute Plan: Fluids: KVO/5mls/hr to avoid fluid overload during transfusion Electrolytes: Replete as needed. Nutrition: Currently NPO for procedure. Post-procedure resume cardiac diet with Ensure, continue to monitor po intake, supplement with ensure. Encouraged patient that she needed to increase p.o. intake in order to heal -Human Resource Professional consulted for calorie count and nutritional guidance -Multivitamin IV added with Hermes supplementation BID -Calorie count may be altered due to NPO status for surgery DVT prophylaxis: SCDs, Defer medical prophylaxis due to anemia Continue to work with OT/PT to improve ambulation (1) Open wound of abdominal wall Qualifiers: Encounter type: initial encounter Qualified Code(s): S31.109A - Unspecified open wound of abdominal wall, unspecified quadrant without penetration into peritoneal cavity, initial encounter (5) Anemia Qualifiers: Anemia type: unspecified type Qualified Code(s): D64.9 - Anemia, unspecified (8) Hypertension Qualifiers: Hypertension type: essential hypertension Qualified Code(s): I10 - Essential (primary) hypertension
[2017-11-01 08:27] LABS: Anion Gap 6 meq/L (5-15); Blood Urea Nitrogen 7 mg/dL (7-18); Calcium 8.1 mg/dL (8.5-10.1); Carbon Dioxide 23.1 meq/L (21.0-32.0); Chloride 111 meq/L (98-107); Glomerular Filtration Rate Greater Than 89 mL/min (>89); Glucose,Random 72 mg/dL (74-106); Sodium 140 meq/L (136-145)
[2017-11-01] MEDS: Metoprolol Tartrate 25 MG Tablet PO SCH ×2 (08:57→21:52)
[2017-11-01] MEDS: Duloxetine 60 MG DR Capsule PO SCH (08:57)
[2017-11-01] MEDS: Lactobacillus Acidophilus/L. Spores Tablet PO SCH ×2 (08:58→21:52)
[2017-11-01] MEDS: traZODone 100 MG Tablet PO SCH (08:58)
[2017-11-01] MEDS: dilTIAZem 60 MG Tablet PO SCH ×3 (08:58→18:11)
[2017-11-01] MEDS: Pantoprazole Sodium 20 MG DR Tablet PO SCH (08:58)
[2017-11-01] MEDS: Heparin Central Flush 100 UNIT/ML 5 ML Vial IV.FLUSH SCH (08:59)
[2017-11-01] MEDS: Multivitamin Inj 10 ML, Folic Acid Inj 1 MG in Sodium Chlor 0.9% Inj 500 ML IV.SIG SCH (08:59)
[2017-11-01] MEDS: Folic Acid 1 MG Tablet PO SCH (08:59)
[2017-11-01] MEDS ORDERED: Ketorolac Inj 30 MG/ML (IVP) Vial IV.PUSH ONE (12:00)
[2017-11-01] MEDS ORDERED: Phenylephrine/NS 1000 MCG/10ML Syringe IV.PUSH ONE (12:00)
[2017-11-01] MEDS ORDERED: Lidocaine PF 1% Inj 5 ML Syringe INFILTRATN ONE (12:00)
--- NOTE | 2017-11-01 19:33 | P.OP ---
- Preoperative Diagnosis (1) Open wound of abdominal wall - Postoperative Diagnosis (1) Skin ulcer of abdominal wall, limited to breakdown of skin Date of procedure: 11/01/17 Procedure: I and d of abdomen and bilateral thighs, placement of amniox, closure Anesthesia: RAMYA Surgeon: Jose Schneider MD Estimated blood loss (mL): 30 Pathology: other (culture take of wound site)
[2017-11-01] MEDS ORDERED: fentaNYL Citrate Inj 100 MCG/2 ML Ampul ONE (19:36)
[2017-11-02] MEDS: Sod Chloride 0.9% Inj 1,000 ML IV.CONT SCH (03:19)
[2017-11-02 06:32] LABS: Baso % (Auto) 0.1 % (0.0-2.0); Eos % (Auto) 0.1 % (0.0-4.0); Hematocrit 29.1 % (35.0-46.0); Hemoglobin 9.9 gm/dL (11.6-15.3); Lymph # (Auto) 1.6 th/mm3 (1.0-4.8); Lymph % (Auto) 16.5 % (9.0-44.0); Mean Corpuscular HGB Conc 34.1 % (32.0-36.0); Mean Corpuscular Hemoglobin 28.9 pg (27.0-34.0); Mean Corpuscular Volume 84.9 fL (80.0-100.0); Mean Platelet Volume 6.7 fL (7.0-11.0); Mono # (Auto) 0.2 th/mm3 (0.0-0.9); Mono % (Auto) 2.4 % (0.0-8.0); Neut # (Auto) 8.1 th/mm3 (1.8-7.7); Neut % (Auto) 80.9 % (16.0-70.0); Platelet Count 215 th/mm3 (150-450); Red Blood Count 3.43 mil/mm3 (4.00-5.30); Red Cell Distribution Width 16.6 % (11.6-17.2)
[2017-11-02 06:54] LABS: Anion Gap 7 meq/L (5-15); Blood Urea Nitrogen 8 mg/dL (7-18); Calcium 7.6 mg/dL (8.5-10.1); Carbon Dioxide 21.8 meq/L (21.0-32.0); Chloride 112 meq/L (98-107); Glomerular Filtration Rate Greater Than 89 mL/min (>89); Glucose,Random 91 mg/dL (74-106); Potassium 4.1 meq/L (3.5-5.1); Sodium 141 meq/L (136-145)
--- NOTE | 2017-11-02 09:07 | P.PNFP ---
Subjective Interval history: Patient seen and examined this morning. No acute events overnight per nursing staff. Patient appears more altered this morning she is only oriented to PPT 1 with a flat affect. Per report, patient did well during surgery without complications. She is able to answer that she is not in pain and has no other complaints. Otherwise review of systems were not able to be completed due to mental status. <Chaz Vivar H - 11/02/17 09:07> Results - Labs Result diagrams: 11/02/17 06:20 11/02/17 06:20 <Abbey Goldman - 11/02/17 10:40> Abnormal lab results 11/02/17 11/02/17 11/02/17 Range/Units 06:20 06:20 06:20 RBC 3.43 L (4.00-5.30) mil/mm3 Hgb 9.9 L (11.6-15.3) gm/dL Hct 29.1 L (35.0-46.0) % MPV 6.7 L (7.0-11.0) fL Neut % (Auto) 80.9 H (16.0-70.0) % Neut # (Auto) 8.1 H (1.8-7.7) th/mm3 Chloride 112 H (98-107) meq/L Calcium 7.6 L (8.5-10.1) mg/dL Albumin 1.0 L (3.4-5.0) g/dL Short CBC 11/02/17 Range/Units 06:20 WBC 10.0 (4.0-11.0) th/mm3 Hgb 9.9 L (11.6-15.3) gm/dL Hct 29.1 L (35.0-46.0) % Plt Count 215 (150-450) th/mm3 BMP 11/02/17 06:20 Sodium 141 Potassium 4.1 Chloride 112 H Carbon Dioxide 21.8 BUN 8 Creatinine 0.58 Calcium 7.6 L Liver Function 11/02/17 Range/Units 06:20 Albumin 1.0 L (3.4-5.0) g/dL <Abbey Goldman - 11/02/17 10:40> Abnormal lab results 11/02/17 11/02/17 Range/Units 06:20 06:20 RBC 3.43 L (4.00-5.30) mil/mm3 Hgb 9.9 L (11.6-15.3) gm/dL Hct 29.1 L (35.0-46.0) % MPV 6.7 L (7.0-11.0) fL Neut % (Auto) 80.9 H (16.0-70.0) % Neut # (Auto) 8.1 H (1.8-7.7) th/mm3 Chloride 112 H (98-107) meq/L Calcium 7.6 L (8.5-10.1) mg/dL Short CBC 11/02/17 Range/Units 06:20 WBC 10.0 (4.0-11.0) th/mm3 Hgb 9.9 L (11.6-15.3) gm/dL Hct 29.1 L (35.0-46.0) % Plt Count 215 (150-450) th/mm3 BMP 11/02/17 06:20 Sodium 141 Potassium 4.1 Chloride 112 H Carbon Dioxide 21.8 BUN 8 Creatinine 0.58 Calcium 7.6 L <Chaz Vivar H - 11/02/17 09:07> Physical Exam Vital signs: Vital Signs 11/01/17 12:00 11/01/17 13:52 11/01/17 16:00 Temperature 98.1 F 97.7 F Pulse Rate 120 H 119 H 121 H Respiratory Rate 18 18 Blood Pressure 138/89 142/65 H Pulse Oximetry 98 97 11/01/17 16:42 11/01/17 19:35 11/01/17 19:45 Temperature 97.8 F Pulse Rate 113 H 116 H 117 H Respiratory Rate 12 12 Blood Pressure 142/74 H 149/86 H Pulse Oximetry 100 99 11/01/17 20:00 11/01/17 20:15 11/01/17 20:30 Temperature Pulse Rate 117 H 123 H 123 H Respiratory Rate 16 22 16 Blood Pressure 146/92 H 149/99 H 136/93 H Pulse Oximetry 99 97 16 L 11/01/17 20:45 11/01/17 21:45 11/01/17 22:00 Temperature 97.6 F 97.6 F Pulse Rate 121 H 118 H 126 H Respiratory Rate 17 18 Blood Pressure 144/83 H 164/94 H Pulse Oximetry 98 11/02/17 00:00 11/02/17 02:00 11/02/17 04:00 Temperature 97.4 F L 98 F Pulse Rate 99 H 103 H 115 H Respiratory Rate 22 22 Blood Pressure 129/88 128/89 Pulse Oximetry 99 99 11/02/17 06:00 11/02/17 07:09 11/02/17 08:00 Temperature 97.4 F L Pulse Rate 118 H 126 H Respiratory Rate 12 21 Blood Pressure 150/88 H Pulse Oximetry 100 Intake & Output 11/01/17 11/02/17 11/02/17 18:59 06:59 18:59 Intake Total 710.2 / 710.2 1914 / 1914 100 / 100 Output Total 1850 / 1850 530 / 530 Balance -1139.8 / -1139.8 1384 / 1384 100 / 100 Weight 103.4 kg Intake: IV 710.2 / 710.2 374 / 374 100 / 100 NS Inj 1,000 ML @ 5 mls/hr IV. 60 / 60 CONT .Q24H [facility] Rx#:[id number] Maxipime Inj 2,000 MG In NS Inj 200 / 200 100 / 100 100 / 100 100 ML @ 200 mls/hr IV.SIG Q8H [facility] Rx#:[id number] LR 1000 mL Inj 1,000 ML @ 30 214 / 214 mls/hr IV.SIG .Q24H [facility] Rx#: [id number] MVI-12 Inj 10 ML Folvite Inj 1 510.2 / 510.2 MG In NS Inj 500 ML @ 125 mls/ hr IV.SIG DAILY [facility] Rx#: [id number] Oral 240 / 240 Anesthesia Amount 1300 / 1300 Output: Urine 1850 / 1850 Stool 50 / 50 Estimated Blood Loss 30 / 30 Urine Amount (Catheter) 450 / 450 Indwelling Urethral Catheter 450 / 450 Wound Drainage 0 / 0 ZAMZAM Drain 0 / 0 Other: Date of Last Bowel Movement 11/01/17 # Bowel Movements 1 <Norma Goldmanan - 11/02/17 10:40> Vital Signs 11/01/17 12:00 11/01/17 13:52 11/01/17 16:00 Temperature 98.1 F 97.7 F Pulse Rate 120 H 119 H 121 H Respiratory Rate 18 18 Blood Pressure 138/89 142/65 H Pulse Oximetry 98 97 11/01/17 16:42 11/01/17 19:35 11/01/17 19:45 Temperature 97.8 F Pulse Rate 113 H 116 H 117 H Respiratory Rate 12 12 Blood Pressure 142/74 H 149/86 H Pulse Oximetry 100 99 11/01/17 20:00 11/01/17 20:15 11/01/17 20:30 Temperature Pulse Rate 117 H 123 H 123 H Respiratory Rate 16 22 16 Blood Pressure 146/92 H 149/99 H 136/93 H Pulse Oximetry 99 97 16 L 11/01/17 20:45 11/01/17 21:45 11/01/17 22:00 Temperature 97.6 F 97.6 F Pulse Rate 121 H 118 H 126 H Respiratory Rate 17 18 Blood Pressure 144/83 H 164/94 H Pulse Oximetry 98 11/02/17 00:00 11/02/17 02:00 11/02/17 04:00 Temperature 97.4 F L 98 F Pulse Rate 99 H 103 H 115 H Respiratory Rate 22 22 Blood Pressure 129/88 128/89 Pulse Oximetry 99 99 11/02/17 06:00 11/02/17 07:09 Temperature Pulse Rate 118 H Respiratory Rate 12 Blood Pressure Pulse Oximetry Intake & Output 11/01/17 11/02/17 11/02/17 18:59 06:59 18:59 Intake Total 200 / 200 1914 / 1914 100 / 100 Output Total 1850 / 1850 530 / 530 Balance -1650 / -1650 1384 / 1384 100 / 100 Weight 103.4 kg Intake: IV 200 / 200 374 / 374 100 / 100 NS Inj 1,000 ML @ 5 mls/hr IV. 60 / 60 CONT .Q24H [facility] Rx#:[id number] Maxipime Inj 2,000 MG In NS Inj 200 / 200 100 / 100 100 / 100 100 ML @ 200 mls/hr IV.SIG Q8H [facility] Rx#:[id number] LR 1000 mL Inj 1,000 ML @ 30 214 / 214 mls/hr IV.SIG .Q24H [facility] Rx#: [id number] Oral 240 / 240 Anesthesia Amount 1300 / 1300 Output: Urine 1850 / 1850 Stool 50 / 50 Estimated Blood Loss 30 / 30 Urine Amount (Catheter) 450 / 450 Indwelling Urethral Catheter 450 / 450 Wound Drainage 0 / 0 ZAMZAM Drain 0 / 0 Other: Date of Last Bowel Movement 11/01/17 # Bowel Movements 1 <Chaz Vivar H - 11/02/17 09:07> Narrative: GENERAL: Morbidly obese -[place] female lying in bed in no acute distress. SKIN: Cool and dry. No rash. Lower abdominal and bilateral lower extremity wounds bandaged with multiple ABD pads and surgical tape. No acute signs of purulent drainage or acute bleeding. Bedding overlying affected area is not saturated. PICC line inserted in the right upper extremity without surrounding erythema, warmth, or other signs of infection. HEENT: Atraumatic, normocephalic with extraocular motions intact. No rhinorrhea. No visible lymphadenopathy or jugulovenous distension appreciated. CARDIOVASCULAR: Tachycardic rate (baseline) and regular rhythm without obvious murmurs, gallops, or rubs. RESPIRATORY: Clear to anterior auscultation bilaterally with no obvious crackles , wheezes, or rhonchi. Breath sounds difficult to auscultate due to body habitus. No increased work of breathing. GASTROINTESTINAL: Abdomen diffuse, soft with positive bowel sounds. Patient nontender in the upper 2 quadrants, deferred tenderness evaluation and lower quadrants due to wounds. ZAMZAM drain has been removed. No masses appreciated. Rectal tube in place. Hopper catheter in place. MUSCULOSKELETAL: No cyanosis. Stable bilateral lower extremities with 1+ pitting edema. No calf tenderness. Left knee effusion stable. SCDs in place. NEURO/PSYCH: Afocal. Patient awake and alert, however only oriented to PPT 1. Patient with very little speech this morning with flattened mood. Unable to complete review of systems but does state she is not in pain and has no complaints. <Chaz Vivar 11/02/17 09:07> - Urinary Catheter Management Female External Cath placed during this visit: no <Abbey Goldman 11/02/17 10:40> no <Chaz Vviar 11/02/17 10:35> Indwelling Urethral Catheter Cath placed during this visit: no <Abbey Goldman 11/02/17 10:40> yes, but has since been removed by the nurse <Chaz Vivar 11/02/17 10:35> Reason for continuing: Severe pressure ulcer/wound <Chaz Vivar 11/02/17 09:07> Insertion date: 09/27/17 <Chaz Vivar 11/02/17 09:07> Insertion time: 08:20 <Chaz Vivar 11/02/17 09:07> Removal date: 10/05/17 <Chaz Vivar - 11/02/17 09:07> Removal time: 17:30 <Chaz Vivar - 11/02/17 09:07> Assessment and Plan - Assessment (1) Open wound of abdominal wall Code(s): S31.109A - Unspecified open wound of abdominal wall, unspecified quadrant without penetration into peritoneal cavity, initial encounter Status : Acute (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 difficile diarrhea Code(s): A04.72 - Enterocolitis due to Clostridium difficile, not specified as recurrent Status: Acute (8) Fall Code(s): W19.XXXA - Unspecified fall, initial encounter Status: Acute (9) Hypertension Code(s): I10 - Essential (primary) hypertension Status: Acute (10) Schizophrenia Code(s): F20.9 - Schizophrenia, unspecified Status: Chronic (11) Tachycardia Code(s): R00.0 - Tachycardia, unspecified Status: Chronic (12) Nutrition, metabolism, and development symptoms Code(s): R63.8 - Other symptoms and signs concerning food and fluid intake Status: Acute <Abbey Goldman - 11/02/17 10:40> (1) Open wound of abdominal wall Code(s): S31.109A - Unspecified open wound of abdominal wall, unspecified quadrant without penetration into peritoneal cavity, initial encounter Status : Acute Plan: -Wound Culture 09/27/17: Pseudomonas and Group B Step -Blood Cultures 10/24/17: Negative -Tissue Cultures 10/09/17: Negative -Abdominal wound culture 11/01/17: Pending -General surgery consulted -Surgical debridement 10/09, wound VAC applied. -VAC changed 10/12 removed 10/15. -Debridement, irrigation, with suturing performed on 10/16. 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 NGTD, cleared from ID standpoint to go rehab with IV Cefepime until 11/08/17 -Orthopedics ([place] for Dr. 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 She completed rehabilitation and was discharged home August 23. Patient was on approximately 2 weeks of po Keflex 500 mg. Per Ortho, examination of left knee shows no evidence of infection. (3) Cellulitis of knee, left Code(s): L03.116 - Cellulitis of left lower limb Status: Acute Plan: -ID consulted, recommend Cefepime until 11/08/17 -Orthopedic surgery consulted, no further recommendations at this time Medications: -Cefepime IV (09/29/17-11/08/17) per ID; PICC line placed for antibiotic administration at rehab once wounds are stable for DC -Patient received 2 weeks of Keflex 500mg PO by Orthopedic surgery as outpatient prior to admission -Levaquin stopped 10/20 per ID -Diflucan course completed 10/18 (4) Poor nutrition Code(s): E63.9 - Nutritional deficiency, unspecified Status: Acute Plan: -Patient with poor nutritional status during hospitalization -Severe concern of poor wound healing secondary to poor nutritional status -Power Operator consulted for calorie count and nutritional guidance, which has been limited due to NPO status prior to surgery, however patient continues to have poor intake -Multivitamin IV added with Hermes supplementation BID -Albumin 10/30/12: 1.1 -Albumin 11/02/17 1.0 -Plan to discuss possible G-tube feeding with (POA) to assist with nutritional status in order for appropriate wound healing (5) Hypokalemia Code(s): E87.6 - Hypokalemia Status: Resolved Plan: -Patient with hypokalemia during hospitalization. Appears to be not tolerating ER capsules as they were found whole in her rectal tube reservoir. Medications: -Magnesium 64 mg daily -Potassium Chloride 40mEq BID (Non-ER/Enteric Coated) -Plan to treat as necessary (6) Anemia Code(s): D64.9 - Anemia, unspecified Status: Resolved Plan: -Patient found to have asymptomatic anemia H/H of 7/20.3 with MCV of 82 on -Patient has received multiple transfusions during hospitalization with hemoglobin ranging from 7.5 to 8.7 over the last week -Rectal tube and Hopper catheter without any signs of acute bleeding -Dressings without obvious signs of bleeding -Due to critical condition and severity of abdominal wounds with decreasing hemoglobin, 2 units PRBC ordered -Patient did receive Lasix between units to assist with possible fluid overload -Posttransfusion H/H 11.6/34.7 on 10/30/17 (7) C. difficile diarrhea Code(s): A04.72 - Enterocolitis due to Clostridium difficile, not specified as recurrent Status: Acute Plan: -C diff cultures positive 10/19/17 -Vancomycin PO 125 4 times daily until completion of Cefepime per ID -Continue with probiotics. -Rectal tube in place (8) Fall Code(s): W19.XXXA - Unspecified fall, initial encounter Status: Acute Plan: Patient with fall on 10/19/17. No loss of consciousness, no head injury, left knee and ankle pain. -Knee x-ray- Prosthesis in place, No abnormality appreciated -Ankle x-ray- No abnormality appreciated -Patient to continue with PT (9) Hypertension Code(s): I10 - Essential (primary) hypertension Status: Acute Plan: History of hypertension -Continue to monitor -Clonidine PRN for BP > 180/100 (10) Schizophrenia Code(s): F20.9 - Schizophrenia, unspecified Status: Chronic Plan: -Psychiatry consulted upon admission Medications: -Continue Abilify 30 mg for psychosis -Continue buspirone 30 mg, trazodone 100 mg and Cymbalta 60 mg -Hold anticholinergics per Psych (11) Tachycardia Code(s): R00.0 - Tachycardia, unspecified Status: Chronic Plan: -Patient with chronic history of tachycardia -EKG 09/27/17: Sinus tachycardia with rate of [address] or interval changes. (Per medical team read) Medications: -Continue home diltiazem and carvedilol (12) Nutrition, metabolism, and development symptoms Code(s): R63.8 - Other symptoms and signs concerning food and fluid intake Status: Acute Plan: Fluids: KVO/5mls/hr to avoid fluid overload during transfusion Electrolytes: Replete as needed. Nutrition: Cardiac diet with Ensure, continue to monitor po intake, supplement with ensure. Encouraged patient that she needed to increase p.o. intake in order to heal -Power Operator consulted for calorie count and nutritional guidance -Multivitamin IV added with Hermes supplementation BID -Calorie count may be altered due to NPO status for surgery DVT prophylaxis: SCDs, Defer medical prophylaxis due to anemia Continue to work with OT/PT to improve ambulation <Chaz Vivar - 11/02/17 10:28> - Assessment and Plan Discussed Condition With: Dr. Goldman <Chaz Vivar - 11/02/17 10:35> - Attending Attestation Patient seen, examined and discussed with Dr. Vivar. I agree with the findings and with the plan. <Abbey Goldman - 11/02/17 10:40> <Chaz Vivar - Last Filed: 11/02/17 10:28> (1) Open wound of abdominal wall Qualifiers: Encounter type: initial encounter Qualified Code(s): S31.109A - Unspecified open wound of abdominal wall, unspecified quadrant without penetration into peritoneal cavity, initial encounter (6) Anemia Qualifiers: Anemia type: unspecified type Qualified Code(s): D64.9 - Anemia, unspecified (9) Hypertension Qualifiers: Hypertension type: essential hypertension Qualified Code(s): I10 - Essential (primary) hypertension <Abbey Goldman - Last Filed: 11/02/17 10:40> (1) Open wound of abdominal wall Qualifiers: Encounter type: initial encounter Qualified Code(s): S31.109A - Unspecified open wound of abdominal wall, unspecified quadrant without penetration into peritoneal cavity, initial encounter (6) Anemia Qualifiers: Anemia type: unspecified type Qualified Code(s): D64.9 - Anemia, unspecified (9) Hypertension Qualifiers: Hypertension type: essential hypertension Qualified Code(s): I10 - Essential (primary) hypertension <Chaz Vivar - Last Filed: 11/02/17 10:28> (1) Open wound of abdominal wall Qualifiers: Encounter type: initial encounter Qualified Code(s): S31.109A - Unspecified open wound of abdominal wall, unspecified quadrant without penetration into peritoneal cavity, initial encounter (6) Anemia Qualifiers: Anemia type: unspecified type Qualified Code(s): D64.9 - Anemia, unspecified (9) Hypertension Qualifiers: Hypertension type: essential hypertension Qualified Code(s): I10 - Essential (primary) hypertension <Abbey Goldman - Last Filed: 11/02/17 10:40> (1) Open wound of abdominal wall Qualifiers: Encounter type: initial encounter Qualified Code(s): S31.109A - Unspecified open wound of abdominal wall, unspecified quadrant without penetration into peritoneal cavity, initial encounter (6) Anemia Qualifiers: Anemia type: unspecified type Qualified Code(s): D64.9 - Anemia, unspecified (9) Hypertension Qualifiers: Hypertension type: essential hypertension Qualified Code(s): I10 - Essential (primary) hypertension
[2017-11-02] MEDS: Heparin Central Flush 100 UNIT/ML 5 ML Vial IV.FLUSH SCH (10:17)
[2017-11-02] MEDS: Folic Acid 1 MG Tablet PO SCH (10:19)
[2017-11-02] MEDS: Duloxetine 60 MG DR Capsule PO SCH (10:19)
[2017-11-02] MEDS: Multivitamin Inj 10 ML, Folic Acid Inj 1 MG in Sodium Chlor 0.9% Inj 500 ML IV.SIG SCH (10:19)
[2017-11-02] MEDS: traZODone 100 MG Tablet PO SCH (10:20)
[2017-11-02] MEDS: Lactobacillus Acidophilus/L. Spores Tablet PO SCH ×2 (10:20→22:39)
[2017-11-02] MEDS: Pantoprazole Sodium 20 MG DR Tablet PO SCH (10:20)
[2017-11-02] MEDS: dilTIAZem 60 MG Tablet PO SCH ×3 (10:20→17:15)
[2017-11-02] MEDS: Metoprolol Tartrate 25 MG Tablet PO SCH ×2 (10:21→22:38)
--- NOTE | 2017-11-02 11:26 | P.PNADD ---
Addendum to Inpatient Note Reason for Addendum: Additional Documentation Additional information: Medical team proceeded with discussion of PEG tube placement with patient's and POA, Emile Mcclain [phone], with all questions answered. He states that he is concerned for her nutritional status as well and agrees with proceeding forward with PEG tube placement. However, as patient has not been n.p.o. for 8 hours procedure will likely be scheduled 11/12/14. Discussed with IR who will obtain consent. Discussed with nursing staff to continue to closely monitor feeding and assist as necessary.
--- NOTE | 2017-11-02 13:20 | P.DIET ---
Nutritional Evaluation Type of nutrition evaluation: follow-up Nutrition screening: [facility] (Calorie counting. Pt with decreased intake with healing wounds) Screening comments: Calorie count incomplete. No intake on meal tickets was recorded. Will extend calorie counts through the weekend and assess the results on Sunday. Subjective Subjective Comments: PEG being considered. Objective - Diagnosis Sepsis, Anemia, Neutropenia - Objective % IBW: 241 (IBW = 98#) Body Weight Used for Calculations: Upper end of IBW (49 kg) Energy Needs - Lower Range (kCal/kg): 30 Energy Needs - Upper Range (kCal/kg): 35 Lower Limit kCal/kg (kCals): 1,470 Upper Limit kCal/kg (kCals): 1,715 Lower Limit Protein Factor (Grams per Kg): 1.0 Upper Limit Protein Factor (Grams per Kg): 1.5 Lower Protein Needs (Protein): 49 Upper Protein Needs (Protein): 74 Fluid Factor (ml/kg): 35 Estimated Fluid Needs (ml): 1,715 Dietitian Reviewed in Medical Record: Current diet, Curent medications, Intake & Output, Labs, Medical history, Wound/DTI Diet Order: Heart Healthy, Ensure tid Wound Care Note: Per Wound Management Note: R and L perineal area- stage 3 Pt also has an open abdominal wound Objective Comments: 10/12 I&D of inferior abdominal wall and inner thigh wounds Feeding - Current PO Supplement Current Supplement: Ensure Original Current Frequency of Supplement: Three times a day Current kCals Provided by Supplement: 250 (per 8 oz) Current Protein Provided by Supplement: 9 (per 8 oz) Assessment Assessment: Pt is at high nutrition risk 2' to dx and presence of wounds. Poor po intake has been reported. Calorie counts have been initiated, but no info was recorded for RD to assess. Will extend through 11/05. For now, recommend the addition of daily MVI/min and Hermes supplement, a therapeutic nutritional supplement that may aid in healing. Weight review indicates very erratic weights have been recorded. If Tf is decided upon, recommend Vital 1.5 @ 50 mls/hr to provide 1800 kcals, 81 gms protein and 917 mls of free water. Recommendations: 1. Continue current diet and Ensure. 2. Please order Hermes bid and MVI/min q day 3. Calorie counts from 10/31-11/05 4. If Tf is needed: Vital 1.5 @ 50 mls/hr goal Dietitian to Monitor: Lab values, Supplement acceptance, Intake & Output, Diet tolerance, Weight change, PO Intake, Wound/skin status, Medical course
--- NOTE | 2017-11-02 14:19 | P.PNGS ---
Subjective Patient reports: no new complaints (confusion this am, answers some questions) Physical Exam Vital signs: Vital Signs 11/01/17 16:00 11/01/17 16:42 11/01/17 19:35 Temperature 97.7 F 97.8 F Pulse Rate 121 H 113 H 116 H Respiratory Rate 18 12 Blood Pressure 142/65 H 142/74 H Pulse Oximetry 97 100 11/01/17 19:45 11/01/17 20:00 11/01/17 20:15 Temperature Pulse Rate 117 H 117 H 123 H Respiratory Rate 12 16 22 Blood Pressure 149/86 H 146/92 H 149/99 H Pulse Oximetry 99 99 97 11/01/17 20:30 11/01/17 20:45 11/01/17 21:45 Temperature 97.6 F 97.6 F Pulse Rate 123 H 121 H 118 H Respiratory Rate 16 17 18 Blood Pressure 136/93 H 144/83 H 164/94 H Pulse Oximetry 16 L 98 11/01/17 22:00 11/02/17 00:00 11/02/17 02:00 Temperature 97.4 F L Pulse Rate 126 H 99 H 103 H Respiratory Rate 22 Blood Pressure 129/88 Pulse Oximetry 99 11/02/17 04:00 11/02/17 06:00 11/02/17 07:09 Temperature 98 F Pulse Rate 115 H 118 H Respiratory Rate 22 12 Blood Pressure 128/89 Pulse Oximetry 99 11/02/17 08:00 11/02/17 10:00 11/02/17 12:00 Temperature 97.4 F L 97.7 F Pulse Rate 126 H 98 H 111 H Respiratory Rate 12 20 Blood Pressure 150/88 H 130/84 Pulse Oximetry 100 98 Intake & Output 11/01/17 11/02/17 11/02/17 18:59 06:59 18:59 Intake Total 710.2 / 710.2 1914 / 1914 100 / 100 Output Total 1850 / 1850 530 / 530 Balance -1139.8 / -1139.8 1384 / 1384 100 / 100 Weight 103.4 kg Intake: IV 710.2 / 710.2 374 / 374 100 / 100 NS Inj 1,000 ML @ 5 mls/hr IV. 60 / 60 CONT .Q24H [facility] Rx#:[id number] Maxipime Inj 2,000 MG In NS Inj 200 / 200 100 / 100 100 / 100 100 ML @ 200 mls/hr IV.SIG Q8H [facility] Rx#:[id number] LR 1000 mL Inj 1,000 ML @ 30 214 / 214 mls/hr IV.SIG .Q24H [facility] Rx#: [id number] MVI-12 Inj 10 ML Folvite Inj 1 510.2 / 510.2 MG In NS Inj 500 ML @ 125 mls/ hr IV.SIG DAILY [facility] Rx#: [id number] Oral 240 / 240 Anesthesia Amount 1300 / 1300 Output: Urine 1850 / 1850 Stool 50 / 50 Estimated Blood Loss 30 / 30 Urine Amount (Catheter) 450 / 450 Indwelling Urethral Catheter 450 / 450 Wound Drainage 0 / 0 ZAMZAM Drain 0 / 0 Other: Date of Last Bowel Movement 11/01/17 # Bowel Movements 1 - Routine Cardiovascular Exam Present: RRR - Routine Abdominal Exam Present: soft - Routine Extremities Exam Present: tenderness (incisions with dressings scant serosang drainage) Comments: incision with dressing, c/d/i - Urinary Catheter Management Female External Cath placed during this visit: no Indwelling Urethral Catheter Cath placed during this visit: yes, but has since been removed by the nurse Reason for continuing: Severe pressure ulcer/wound Insertion date: 09/27/17 Insertion time: 08:20 Removal date: 10/05/17 Removal time: 17:30 Assessment and Plan - Plan s/p I and D with closure dressing changes keep incisions dry tx for c diff keep wounds clear of stool may benefit from g tube due to very poor nutrition intake
[2017-11-02] MEDS: Morphine Sulfate Inj 2 MG/ML Vial IV.PUSH PRN (22:10)
[2017-11-03] MEDS: Sod Chloride 0.9% Inj 1,000 ML IV.CONT SCH (00:09)
[2017-11-03 07:17] LABS: Baso % (Auto) 0.2 % (0.0-2.0); Eos % (Auto) 0.3 % (0.0-4.0); Hematocrit 27.7 % (35.0-46.0); Hemoglobin 9.3 gm/dL (11.6-15.3); Lymph # (Auto) 1.8 th/mm3 (1.0-4.8); Lymph % (Auto) 14.6 % (9.0-44.0); Mean Corpuscular HGB Conc 33.5 % (32.0-36.0); Mean Corpuscular Hemoglobin 28.5 pg (27.0-34.0); Mean Corpuscular Volume 85.3 fL (80.0-100.0); Mono # (Auto) 0.9 th/mm3 (0.0-0.9); Mono % (Auto) 7.5 % (0.0-8.0); Neut # (Auto) 9.4 th/mm3 (1.8-7.7); Neut % (Auto) 77.4 % (16.0-70.0); Platelet Count 224 th/mm3 (150-450); Red Blood Count 3.25 mil/mm3 (4.00-5.30); Red Cell Distribution Width 16.7 % (11.6-17.2); White Blood Count 12.2 th/mm3 (4.0-11.0)
[2017-11-03 07:27] LABS: Alanine Aminotransferase 20 U/L (10-53); Anion Gap 6 meq/L (5-15); Aspartate Aminotransferase 18 U/L (15-37); Blood Urea Nitrogen 12 mg/dL (7-18); Calcium 7.5 mg/dL (8.5-10.1); Carbon Dioxide 22.6 meq/L (21.0-32.0); Chloride 116 meq/L (98-107); Glomerular Filtration Rate 82 mL/min (>89); Glucose,Random 76 mg/dL (74-106); Potassium 4.1 meq/L (3.5-5.1); Sodium 145 meq/L (136-145)
[2017-11-03 07:30] LABS: Alkaline Phosphatase 150 U/L (45-117); Total Protein 4.7 g/dL (6.4-8.2)
--- NOTE | 2017-11-03 08:55 | P.PNFP ---
Subjective Interval history: Patient seen and examined this morning. No acute events overnight per nursing staff. Patient has improved mood better orientation today as she is oriented PPT 2. She is unable to complete full review of systems, however does indicate that she is not currently in pain and has no other complaints. Of note , patient's urinary output has decreased over the last 24 hours. This is possibly due to decreased oral intake, however nursing staff reports patient was feeding herself yesterday with a "full tray completely gone." Discussed with nursing staff to assist patient with feeding and ordering tray to ensure p.o. intake. <Chaz Vivar H - 11/03/17 09:33> Results - Labs Result diagrams: 11/03/17 06:50 11/03/17 06:50 <Abbey Goldman - 11/03/17 15:13> Abnormal lab results 11/03/17 11/03/17 11/03/17 Range/Units 06:50 06:50 06:50 WBC 12.2 H (4.0-11.0) th/mm3 RBC 3.25 L (4.00-5.30) mil/mm3 Hgb 9.3 L (11.6-15.3) gm/dL Hct 27.7 L (35.0-46.0) % Neut % (Auto) 77.4 H (16.0-70.0) % Neut # (Auto) 9.4 H (1.8-7.7) th/mm3 Chloride 116 H (98-107) meq/L Estimated GFR 82 L (>89) mL/min Calcium 7.5 L (8.5-10.1) mg/dL Alkaline Phosphatase 150 H (45-117) U/L Total Creatine Kinase 16 L (26-192) U/L C-Reactive Protein 7.60 H (0.00-0.30) mg/dL Total Protein 4.7 L (6.4-8.2) g/dL Albumin 1.0 L (3.4-5.0) g/dL Short CBC 11/03/17 Range/Units 06:50 WBC 12.2 H (4.0-11.0) th/mm3 Hgb 9.3 L (11.6-15.3) gm/dL Hct 27.7 L (35.0-46.0) % Plt Count 224 (150-450) th/mm3 BMP 11/03/17 06:50 Sodium 145 Potassium 4.1 Chloride 116 H Carbon Dioxide 22.6 BUN 12 Creatinine 0.87 Calcium 7.5 L Cardiac Enzymes 11/03/17 Range/Units 06:50 Total Creatine Kinase 16 L (26-192) U/L Liver Function 11/03/17 Range/Units 06:50 Total Bilirubin 0.3 (0.2-1.0) mg/dL AST 18 (15-37) U/L ALT 20 (10-53) U/L Alkaline Phosphatase 150 H (45-117) U/L Albumin 1.0 L (3.4-5.0) g/dL <Jones,Abbey - 11/03/17 15:13> Abnormal lab results 11/02/17 11/03/17 11/03/17 Range/Units 06:20 06:50 06:50 WBC 12.2 H (4.0-11.0) th/mm3 RBC 3.25 L (4.00-5.30) mil/mm3 Hgb 9.3 L (11.6-15.3) gm/dL Hct 27.7 L (35.0-46.0) % Neut % (Auto) 77.4 H (16.0-70.0) % Neut # (Auto) 9.4 H (1.8-7.7) th/mm3 Chloride 116 H (98-107) meq/L Estimated GFR 82 L (>89) mL/min Calcium 7.5 L (8.5-10.1) mg/dL Alkaline Phosphatase 150 H (45-117) U/L Total Protein 4.7 L (6.4-8.2) g/dL Albumin 1.0 L 1.0 L (3.4-5.0) g/dL Short CBC 11/03/17 Range/Units 06:50 WBC 12.2 H (4.0-11.0) th/mm3 Hgb 9.3 L (11.6-15.3) gm/dL Hct 27.7 L (35.0-46.0) % Plt Count 224 (150-450) th/mm3 [facility] 11/03/17 06:50 Sodium 145 Potassium 4.1 Chloride 116 H Carbon Dioxide 22.6 BUN 12 Creatinine 0.87 Calcium 7.5 L Liver Function 11/02/17 11/03/17 Range/Units 06:20 06:50 Total Bilirubin 0.3 (0.2-1.0) mg/dL AST 18 (15-37) U/L ALT 20 (10-53) U/L Alkaline Phosphatase 150 H (45-117) U/L Albumin 1.0 L 1.0 L (3.4-5.0) g/dL <Vivar,Chaz H - 11/03/17 08:55> Physical Exam Vital signs: Vital Signs 11/02/17 16:00 11/02/17 18:00 11/02/17 20:00 Temperature 98.4 F 98.1 F Pulse Rate 118 H 112 H 117 H Respiratory Rate 18 19 Blood Pressure 121/73 135/76 Pulse Oximetry 98 99 11/03/17 00:00 11/03/17 00:30 11/03/17 01:47 Temperature 98.2 F Pulse Rate 112 H 118 H Respiratory Rate 17 16 Blood Pressure 129/72 Pulse Oximetry 99 11/03/17 03:36 11/03/17 04:00 11/03/17 04:30 Temperature 98 F Pulse Rate 110 H 86 Respiratory Rate 16 17 Blood Pressure 129/74 Pulse Oximetry 99 11/03/17 06:36 11/03/17 07:00 11/03/17 08:00 Temperature 98.7 F Pulse Rate 119 H Respiratory Rate 16 12 20 Blood Pressure 153/91 H Pulse Oximetry 97 11/03/17 12:00 Temperature 97.9 F Pulse Rate 120 H Respiratory Rate 20 Blood Pressure 143/99 H Pulse Oximetry 100 Intake & Output 11/02/17 11/03/17 11/03/17 18:59 06:59 18:59 Intake Total 950.2 / 950.2 100 / 100 Output Total 100 / 100 751 / 751 Balance 850.2 / 850.2 100 / 100 -751 / -751 Weight 103.5 kg Intake: IV 710.2 / 710.2 100 / 100 Maxipime Inj 2,000 MG In NS Inj 200 / 200 100 / 100 100 ML @ 200 mls/hr IV.SIG Q8H [facility] Rx#:[id number] MVI-12 Inj 10 ML Folvite Inj 1 510.2 / 510.2 MG In NS Inj 500 ML @ 125 mls/ hr IV.SIG DAILY [facility] Rx#: [id number] Oral 240 / 240 Output: Urine 100 / 100 750 / 750 Stool Other: Date of Last Bowel Movement 11/03/17 <Abbey Goldman - 11/03/17 15:13> Vital Signs 11/02/17 10:00 11/02/17 12:00 11/02/17 14:00 Temperature 97.7 F Pulse Rate 98 H 111 H 114 H Respiratory Rate 20 Blood Pressure 130/84 Pulse Oximetry 98 11/02/17 16:00 11/02/17 18:00 11/02/17 20:00 Temperature 98.4 F 98.1 F Pulse Rate 118 H 112 H 117 H Respiratory Rate 18 19 Blood Pressure 121/73 135/76 Pulse Oximetry 98 99 11/03/17 00:00 11/03/17 00:30 11/03/17 01:47 Temperature 98.2 F Pulse Rate 112 H 118 H Respiratory Rate 17 16 Blood Pressure 129/72 Pulse Oximetry 99 11/03/17 03:36 11/03/17 04:00 11/03/17 04:30 Temperature 98 F Pulse Rate 110 H 86 Respiratory Rate 16 17 Blood Pressure 129/74 Pulse Oximetry 99 11/03/17 06:36 Temperature Pulse Rate Respiratory Rate 16 Blood Pressure Pulse Oximetry Intake & Output 11/02/17 11/03/17 11/03/17 18:59 06:59 18:59 Intake Total 950.2 / 950.2 100 / 100 Output Total 100 / 100 750 / 750 Balance 850.2 / 850.2 100 / 100 -750 / -750 Weight 103.5 kg Intake: IV 710.2 / 710.2 100 / 100 Maxipime Inj 2,000 MG In NS Inj 200 / 200 100 / 100 100 ML @ 200 mls/hr IV.SIG Q8H [facility] Rx#:[id number] MVI-12 Inj 10 ML Folvite Inj 1 510.2 / 510.2 MG In NS Inj 500 ML @ 125 mls/ hr IV.SIG DAILY [facility] Rx#: [id number] Oral 240 / 240 Output: Urine 100 / 100 750 / 750 <Chaz Vivar - 11/03/17 08:55> Narrative: GENERAL: Morbidly obese -[place] female lying in bed in no acute distress. SKIN: Cool and dry. No rash. Lower abdominal and bilateral lower extremity wounds bandaged with multiple ABD pads and surgical tape. No acute signs of purulent drainage or acute bleeding. Bedding overlying affected area is partly saturated. PICC line inserted in the right upper extremity without surrounding erythema, warmth, or other signs of infection. HEENT: Atraumatic, normocephalic with extraocular motions intact. No rhinorrhea. No visible lymphadenopathy or jugulovenous distension appreciated. CARDIOVASCULAR: Tachycardic rate (baseline) and regular rhythm without obvious murmurs, gallops, or rubs. RESPIRATORY: Clear to anterior auscultation bilaterally with no obvious crackles , wheezes, or rhonchi. Breath sounds difficult to auscultate due to body habitus. No increased work of breathing. GASTROINTESTINAL: Abdomen diffuse, soft with soft bowel sounds likely due to body habitus. Patient nontender in the upper 2 quadrants, deferred tenderness evaluation and lower quadrants due to wounds. ZAMZAM drain has been removed. No masses appreciated. Rectal tube in place with liquid fecal material in reservoir. Hopper catheter in place with minimal urinary output and reservoir. MUSCULOSKELETAL: No cyanosis. Stable bilateral lower extremities with 1+ pitting edema. No calf tenderness. Left knee effusion stable. SCDs not in place. NEURO/PSYCH: Afocal. Patient awake and alert, however only oriented to PPT 2 0.6 baseline). Patient with with continued flattened mood. Unable to complete review of systems but does state she is not in pain and has no complaints. <Chaz Vivar 11/03/17 09:20> - Urinary Catheter Management Female External Cath placed during this visit: no <Abbey Goldman 11/03/17 15:13> no <Chaz Vivar 11/03/17 10:21> Indwelling Urethral Catheter Cath placed during this visit: no <Abbey Goldman 11/03/17 15:13> yes, but has since been removed by the nurse <Chaz Vivar 11/03/17 10:21> Reason for continuing: Severe pressure ulcer/wound <Chaz Vivar 11/03/17 08:55> Insertion date: 09/27/17 <Chaz Vivar 11/03/17 08:55> Insertion time: 08:20 <Chaz Vivar 11/03/17 08:55> Removal date: 10/05/17 <Chaz Vivar 11/03/17 08:55> Removal time: 17:30 <Chaz Vivar - 11/03/17 08:55> Assessment and Plan - Assessment (1) Open wound of abdominal wall Code(s): S31.109A - Unspecified open wound of abdominal wall, unspecified quadrant without penetration into peritoneal cavity, initial encounter Status : Acute (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 difficile diarrhea Code(s): A04.72 - Enterocolitis due to Clostridium difficile, not specified as recurrent Status: Acute (8) Fall Code(s): W19.XXXA - Unspecified fall, initial encounter Status: Acute (9) Hypertension Code(s): I10 - Essential (primary) hypertension Status: Acute (10) Schizophrenia Code(s): F20.9 - Schizophrenia, unspecified Status: Chronic (11) Tachycardia Code(s): R00.0 - Tachycardia, unspecified Status: Chronic (12) Nutrition, metabolism, and development symptoms Code(s): R63.8 - Other symptoms and signs concerning food and fluid intake Status: Acute <Abbey Goldman - 11/03/17 15:13> (1) Open wound of abdominal wall Code(s): S31.109A - Unspecified open wound of abdominal wall, unspecified quadrant without penetration into peritoneal cavity, initial encounter Status : Acute Plan: -Wound Culture 09/27/17: Pseudomonas and Group B Step -Blood Cultures 10/24/17: Negative -Tissue Cultures 10/09/17: Negative -Abdominal wound culture 11/01/17: Group D Enterococcus -Infectious disease consulted -Continue cefepime until 11/08/17 -Continue oral vancomycin for Clostridium difficile until cefepime is discontinued on 11/08/17 -Start Daptomycin for suspected VRE on ABD wound culture on 11/03/17; monitor CK levels -General surgery consulted -Surgical debridement 10/09, wound VAC applied. -VAC changed 10/12 removed 10/15. -Debridement, irrigation, with suturing performed on 10/16. 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 NGTD, cleared from ID standpoint to go rehab with IV Cefepime until 11/08/17 -Orthopedics ([place] for Dr. 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 She completed rehabilitation and was discharged home August 23. Patient was on approximately 2 weeks of po Keflex 500 mg. Per Ortho, examination of left knee shows no evidence of infection. (3) Cellulitis of knee, left Code(s): L03.116 - Cellulitis of left lower limb Status: Acute Plan: -ID consulted, recommend Cefepime until 11/08/17 -Orthopedic surgery consulted, no further recommendations at this time Medications: -Cefepime IV (09/29/17-11/08/17) per ID; PICC line placed for antibiotic administration at rehab once wounds are stable for DC -Patient received 2 weeks of Keflex 500mg PO by Orthopedic surgery as outpatient prior to admission -Levaquin stopped 10/20 per ID -Diflucan course completed 10/18 (4) Poor nutrition Code(s): E63.9 - Nutritional deficiency, unspecified Status: Acute Plan: -Patient with poor nutritional status during hospitalization -Severe concern of poor wound healing secondary to poor nutritional status -Jumpbasting Lining Baster consulted for calorie count and nutritional guidance, which has been limited due to NPO status prior to surgery, however patient continues to have poor intake -Multivitamin IV added with Hermes supplementation BID -Albumin levels continued to be decreased -Discussed PEG tube placement with and POA, Emile Mcclain [phone], with all questions answered. He states that he is concerned for her nutritional status as well and agrees with proceeding forward with PEG tube placement. -IR consulted and will obtain consents, procedure likely to be completed on 11/05/17 PT/INR ordered for 11/05/17 Patient to be n.p.o. at midnight on 11/04/17 (5) Hypokalemia Code(s): E87.6 - Hypokalemia Status: Resolved Plan: -Patient with hypokalemia during hospitalization. Appears to be not tolerating ER capsules as they were found whole in her rectal tube reservoir. Medications: -Magnesium 64 mg daily -Potassium Chloride 40mEq BID (Non-ER/Enteric Coated) -Plan to treat as necessary (6) Anemia Code(s): D64.9 - Anemia, unspecified Status: Resolved Plan: -Patient found to have asymptomatic anemia H/H of 7/20.3 with MCV of 82 on -Patient has received multiple transfusions during hospitalization with hemoglobin ranging from 7.5 to 8.7 over the last week -Rectal tube and Hopper catheter without any signs of acute bleeding -Dressings without obvious signs of bleeding -Due to critical condition and severity of abdominal wounds with decreasing hemoglobin, 2 units PRBC ordered -Patient did receive Lasix between units to assist with possible fluid overload -Posttransfusion H/H 11.6/34.7 on 10/30/17 -Continue to monitor (7) C. difficile diarrhea Code(s): A04.72 - Enterocolitis due to Clostridium difficile, not specified as recurrent Status: Acute Plan: -C diff cultures positive 10/19/17 -Vancomycin PO 125 4 times daily until completion of Cefepime per ID -Continue with probiotics. -Rectal tube in place (8) Fall Code(s): W19.XXXA - Unspecified fall, initial encounter Status: Acute Plan: Patient with fall on 10/19/17. No loss of consciousness, no head injury, left knee and ankle pain. -Knee x-ray- Prosthesis in place, No abnormality appreciated -Ankle x-ray- No abnormality appreciated -Patient to continue with PT (9) Hypertension Code(s): I10 - Essential (primary) hypertension Status: Acute Plan: History of hypertension -Continue to monitor -Clonidine PRN for BP > 180/100 (10) Schizophrenia Code(s): F20.9 - Schizophrenia, unspecified Status: Chronic Plan: -Psychiatry consulted upon admission Medications: -Continue Abilify 30 mg for psychosis -Continue buspirone 30 mg, trazodone 100 mg and Cymbalta 60 mg -Hold anticholinergics per Psych (11) Tachycardia Code(s): R00.0 - Tachycardia, unspecified Status: Chronic Plan: -Patient with chronic history of tachycardia -EKG 09/27/17: Sinus tachycardia with rate of [address] or interval changes. (Per medical team read) Medications: -Continue home diltiazem and carvedilol (12) Nutrition, metabolism, and development symptoms Code(s): R63.8 - Other symptoms and signs concerning food and fluid intake Status: Acute Plan: Fluids: Increased to maintenance rate (1 40 mL/h) as urinary output has decreased Electrolytes: Replete as needed. Nutrition: Cardiac diet with Ensure, continue to monitor po intake, supplement with ensure. Encouraged patient that she needed to increase p.o. intake in order to heal -Jumpbasting Lining Baster consulted for calorie count and nutritional guidance -Multivitamin IV added with Hermes supplementation BID -PEG tube placement planned for 11/05/17; dietary recommends vital 1.5 at 50 mL/h at that time DVT prophylaxis: SCDs, Defer medical prophylaxis due to anemia Continue to work with OT/PT to improve ambulation <Chaz Vivar H - 11/03/17 09:56> - Assessment and Plan Discussed Condition With: Dr. Goldman <Chaz Vivar - 11/03/17 08:55> - Attending Attestation Case discussed in detail with Dr Vivar. I agree with the plan. <Abbey Goldman - 11/03/17 15:13> <Chaz Vivar H - Last Filed: 11/03/17 09:56> (1) Open wound of abdominal wall Qualifiers: Encounter type: initial encounter Qualified Code(s): S31.109A - Unspecified open wound of abdominal wall, unspecified quadrant without penetration into peritoneal cavity, initial encounter (6) Anemia Qualifiers: Anemia type: unspecified type Qualified Code(s): D64.9 - Anemia, unspecified (9) Hypertension Qualifiers: Hypertension type: essential hypertension Qualified Code(s): I10 - Essential (primary) hypertension <Abbey Goldman - Last Filed: 11/03/17 15:13> (1) Open wound of abdominal wall Qualifiers: Encounter type: initial encounter Qualified Code(s): S31.109A - Unspecified open wound of abdominal wall, unspecified quadrant without penetration into peritoneal cavity, initial encounter (6) Anemia Qualifiers: Anemia type: unspecified type Qualified Code(s): D64.9 - Anemia, unspecified (9) Hypertension Qualifiers: Hypertension type: essential hypertension Qualified Code(s): I10 - Essential (primary) hypertension <Chaz Vivar - Last Filed: 11/03/17 09:56> (1) Open wound of abdominal wall Qualifiers: Encounter type: initial encounter Qualified Code(s): S31.109A - Unspecified open wound of abdominal wall, unspecified quadrant without penetration into peritoneal cavity, initial encounter (6) Anemia Qualifiers: Anemia type: unspecified type Qualified Code(s): D64.9 - Anemia, unspecified (9) Hypertension Qualifiers: Hypertension type: essential hypertension Qualified Code(s): I10 - Essential (primary) hypertension <Abbey Goldman - Last Filed: 11/03/17 15:13> (1) Open wound of abdominal wall Qualifiers: Encounter type: initial encounter Qualified Code(s): S31.109A - Unspecified open wound of abdominal wall, unspecified quadrant without penetration into peritoneal cavity, initial encounter (6) Anemia Qualifiers: Anemia type: unspecified type Qualified Code(s): D64.9 - Anemia, unspecified (9) Hypertension Qualifiers: Hypertension type: essential hypertension Qualified Code(s): I10 - Essential (primary) hypertension
[2017-11-03] MEDS: Duloxetine 60 MG DR Capsule PO SCH (10:39)
[2017-11-03] MEDS: Heparin Central Flush 100 UNIT/ML 5 ML Vial IV.FLUSH SCH (10:40)
[2017-11-03] MEDS: traZODone 100 MG Tablet PO SCH (10:40)
[2017-11-03] MEDS: Folic Acid 1 MG Tablet PO SCH (10:40)
[2017-11-03] MEDS: Metoprolol Tartrate 25 MG Tablet PO SCH ×2 (10:40→20:20)
[2017-11-03] MEDS: dilTIAZem 60 MG Tablet PO SCH ×3 (10:41→17:39)
[2017-11-03] MEDS: Pantoprazole Sodium 20 MG DR Tablet PO SCH (10:41)
[2017-11-03] MEDS: Lactobacillus Acidophilus/L. Spores Tablet PO SCH ×2 (10:41→20:20)
[2017-11-03 11:48] LABS: C-Reactive Protein 7.6 mg/dL (0.00-0.30)
[2017-11-03] MEDS: DAPTOmycin Inj 800 MG in Sodium Chlor 0.9% Inj 100 ML IV.SIG SCH (12:00)
[2017-11-03] MEDS: Multivitamin Inj 10 ML, Folic Acid Inj 1 MG in Sodium Chlor 0.9% Inj 500 ML IV.SIG SCH (12:01)
--- NOTE | 2017-11-03 14:26 | P.PNID ---
Subjective Remarks: ID coverage. Follow up. 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 Post op it appears she was discharged to a rehab. She was discharged from the rehab to home with her on August 23. Patient reports she lives at home with her who is on disability. Unsure of nature of disability at this time and his ability to take care of her. She was reportedly able to ambulate on her own initially followed by weakness and need for walker and then to a point where she did not want to get out of bed. It has been reported to others that she had some discharge at the left surgical site area and ortho surgeon prescribed oral keflex which reportedly lead to some improvement. She reportedly completed a week of antibiotic treatment with last day scheduled for today with some improvement in her knee pain. However her stated that she was starting to have more drainage from her knee just over the past day or so. He had pointed to several areas that had been draining pus from just above and just below the knee. He stated that a cup full of pus would drain at a time. Additionally the abdominal fold wounds appear to have been present for atleast 3 weeks now. With this background patient presented to the ED with complaints of worsening shortness of breath and mental status accompanied with symptoms of diarrhea (3 days, non-bloody) and decreased p.o. intake (5 days). She was also brought into the hospital due to infection of her knee that improved with Keflex p.o but now has returned with new additional drainage over the past few days. ID consulted for evaluation and Mment of Left knee prosthetic joint infection and neutropenia. Patient underwent incision and debridement of the inferior abdominal wall and proximal inner thighs on 10/12/2017. Receiving IV antibiotics for left knee infection/C difficile. CT scan showed small joint effusion and subcutaneous edema of the fat at the left knee. Overnight events reviewed. ebony RN ebony Babcock: new intraop cultures reviewed and Dapto IV recommended in am. Patient is awake, alert and communicative. Denies nausea vomiting. Denies chills. No fever. Antibiotics: Cefepime Vancomycin PO. Lines: Lines ok. Allergies/Adverse Reactions: Allergies amoxicillin Allergy (Verified 09/27/17 17:54) Swelling Objective Vital Signs 11/02/17 16:00 11/02/17 18:00 11/02/17 20:00 Temperature 98.4 F 98.1 F Pulse Rate 118 H 112 H 117 H Respiratory Rate 18 19 Blood Pressure 121/73 135/76 Pulse Oximetry 98 99 11/03/17 00:00 11/03/17 00:30 11/03/17 01:47 Temperature 98.2 F Pulse Rate 112 H 118 H Respiratory Rate 17 16 Blood Pressure 129/72 Pulse Oximetry 99 11/03/17 03:36 11/03/17 04:00 11/03/17 04:30 Temperature 98 F Pulse Rate 110 H 86 Respiratory Rate 16 17 Blood Pressure 129/74 Pulse Oximetry 99 11/03/17 06:36 11/03/17 07:00 11/03/17 08:00 Temperature 98.7 F Pulse Rate 119 H Respiratory Rate 16 12 20 Blood Pressure 153/91 H Pulse Oximetry 97 11/03/17 12:00 Temperature 97.9 F Pulse Rate 120 H Respiratory Rate 20 Blood Pressure 143/99 H Pulse Oximetry 100 Intake & Output 11/02/17 11/03/17 11/03/17 18:59 06:59 18:59 Intake Total 950.2 / 950.2 100 / 100 Output Total 100 / 100 751 / 751 Balance 850.2 / 850.2 100 / 100 -751 / -751 Weight 103.5 kg Intake: IV 710.2 / 710.2 100 / 100 Maxipime Inj 2,000 MG In NS Inj 200 / 200 100 / 100 100 ML @ 200 mls/hr IV.SIG Q8H [facility] Rx#:[id number] MVI-12 Inj 10 ML Folvite Inj 1 510.2 / 510.2 MG In NS Inj 500 ML @ 125 mls/ hr IV.SIG DAILY [facility] Rx#: [id number] Oral 240 / 240 Output: Urine 100 / 100 750 / 750 Stool 1 / Other: Date of Last Bowel Movement 11/03/17 11/01/17 17:45 Wound - Abdominal Gram Stain - Final 11/01/17 17:45 Wound - Abdominal Wound Culture - Preliminary Group D Enterococcus 11/01/17 17:45 Wound - Abdominal Acid Fast Bacilli Smear - Final No acid fast bacilli seen 11/01/17 17:45 Wound - Abdominal Mycobacterial Culture - Pending 11/01/17 17:45 Wound - Abdominal Fungal Smear - Final No fungal elements seen 11/01/17 17:45 Wound - Abdominal Fungal Culture - Pending Lab - Hematology Results 11/02/17 11/03/17 06:20 06:50 WBC 10.0 12.2 H RBC 3.43 L 3.25 L Hgb 9.9 L 9.3 L Hct 29.1 L 27.7 L MCV 84.9 85.3 MCH 28.9 28.5 MCHC 34.1 33.5 RDW 16.6 16.7 Plt Count 215 224 MPV 6.7 L 7.0 Neut % (Auto) 80.9 H 77.4 H Lymph % (Auto) 16.5 14.6 [place] % (Auto) 2.4 7.5 Eos % (Auto) 0.1 0.3 Baso % (Auto) 0.1 0.2 Neut # (Auto) 8.1 H 9.4 H Lymph # (Auto) 1.6 1.8 [place] # (Auto) 0.2 0.9 Eos # (Auto) 0.0 0.0 Baso # (Auto) 0.0 0.0 WBC Differential . . Differential Comment Auto diff final Auto diff final Lab - Chemistry Results 11/02/17 11/02/17 11/03/17 06:20 06:20 06:50 Sodium 141 145 Potassium 4.1 4.1 Chloride 112 H 116 H Carbon Dioxide 21.8 22.6 Anion Gap 7 6 BUN 8 12 Creatinine 0.58 0.87 Estimated GFR Greater than 89 82 L Random Glucose 91 76 Calcium 7.6 L 7.5 L Total Bilirubin 0.3 AST 18 ALT 20 Alkaline Phosphatase 150 H Total Creatine Kinase C-Reactive Protein Total Protein 4.7 L Albumin 1.0 L 1.0 L 11/03/17 06:50 Sodium Potassium Chloride Carbon Dioxide Anion Gap BUN Creatinine Estimated GFR Random Glucose Calcium Total Bilirubin AST ALT Alkaline Phosphatase Total Creatine Kinase 16 L C-Reactive Protein 7.60 H Total Protein Albumin Imaging: ITS Impressions Tibia/Fibula X-Ray 09/27/17 00:00 CONCLUSION: No acute left leg abnormality is identified. Abdomen/Pelvis CT 09/27/17 08:10 CONCLUSION: 1. Mild hepatic steatosis. 2. Thickening of the colon secondary to lack of distention versus colitis. 3. Left lower lobe consolidation and/or atelectasis. There does appear to be a 1.4 cm cavitary area which makes consolidation likely. Head CT 09/27/17 08:10 CONCLUSION: No acute intracranial abnormality is seen. Chest CTA 09/27/17 08:22 CONCLUSION: 1. No pulmonary embolus. 2. Consolidation or atelectasis at the left lower lobe. Venous Doppler Study 09/29/17 00:00 CONCLUSION: No evidence of deep venous thrombosis. Knee CT 10/18/17 00:00 CONCLUSION: 1. Small joint effusion. 2. Nonspecific subcutaneous edema in the subcutaneous soft tissues above and below the knee. 3. No significant changes compared to the prior exam. Ankle X-Ray 10/19/17 00:00 CONCLUSION: 1. No acute fracture or dislocation. Knee X-Ray 10/19/17 00:00 CONCLUSION: 1. Total knee prosthesis in place. 2. Moderate-sized knee joint effusion. Chest X-Ray 10/24/17 00:00 CONCLUSION: No acute cardiopulmonary disease. Physical Exam: GENERAL: Alert and oriented, no acute distress. HEENT: Pupils reactive to light. Extraocular movements intact. No icterus. NECK: Supple without adenopathy. No swelling. LUNGS: Decreased breath sounds. HEART: Regular S1 and S2 without murmurs or rubs or gallops. ABDOMEN: Obese, soft. Nontender. Groin and abdominal area with healthy granulation tissue, dressing with sanguinous discharge noted. EXTREMITIES: swelling of the left knee. less warmth. Tiny hole a couple millimeters at the lower aspect of the knee surgical incision. Purulent drainage on noted 10/19. SKIN: No diffuse rash. NEUROLOGIC: Awake and alert and oriented. Nonfocal. PSYCH: Pleasant, calm and cooperative. Assessment and Plan - Plan IMPRESSION: Neutropenic sepsis WBC now elevated. Receive Neupogen but the white blood cell count did not plateau is continuing to rise. Possibly secondary to infection. Leucopenia, pancytopenia: ? MTX, ? Psych meds, ? Sepsis contributing. Abdominal fold cellulitis/skin breakdown. Post incision and debridement and closure of skin fold. General surgery following. She dispose any panniculectomy. Groin cellulitis, Mons pubis cellulitis/skin breakdown. Neurosurgery following. H/o fall with scraping of left knee. Left knee hardware in place. CT with fluid collection. Left knee infection - prior wound culture had Pseudomonas and group B beta strep. Repeat culture had no growth. Diarrhea - Positive C. difficile. RECOMMENDATIONS: Continue Cefepime IV for the left knee infection and abdominal wound infection. Start Dapto IV for Grp D Enterococcus pending ID will follow cultures to deescalate. Continue Vancomycin for C. difficile treat until completion of cefepime. Ok to continue Statin monitor CK today, in 4 days and thereafter every week if not elevated if continues to be on Daptomycin IV. Nutrition consult placed and calories being tracked. ebony RN ebony Babcock above plan. Will follow prn over the weekend please call back sooner if any change in clinical condition or questions.
[2017-11-04] MEDS: Sod Chloride 0.9% Inj 1,000 ML IV.CONT SCH ×2 (00:37→08:17)
[2017-11-04] MEDS: Morphine Sulfate Inj 2 MG/ML Vial IV.PUSH PRN (03:51)
[2017-11-04 08:18] LABS: Baso % (Auto) 0.4 % (0.0-2.0); Eos # (Auto) 0.2 th/mm3 (0.0-0.4); Eos % (Auto) 1.6 % (0.0-4.0); Hematocrit 27.8 % (35.0-46.0); Hemoglobin 9.1 gm/dL (11.6-15.3); Lymph # (Auto) 1.3 th/mm3 (1.0-4.8); Lymph % (Auto) 10.1 % (9.0-44.0); Mean Corpuscular HGB Conc 32.8 % (32.0-36.0); Mean Corpuscular Hemoglobin 28.1 pg (27.0-34.0); Mean Corpuscular Volume 85.8 fL (80.0-100.0); Mean Platelet Volume 7.2 fL (7.0-11.0); Mono % (Auto) 8.2 % (0.0-8.0); Neut % (Auto) 79.7 % (16.0-70.0); Platelet Count 205 th/mm3 (150-450); Red Blood Count 3.24 mil/mm3 (4.00-5.30); Red Cell Distribution Width 16.8 % (11.6-17.2); White Blood Count 12.5 th/mm3 (4.0-11.0)
[2017-11-04] MEDS: Metoprolol Tartrate 25 MG Tablet PO SCH ×2 (08:18→23:34)
[2017-11-04] MEDS: Heparin Central Flush 100 UNIT/ML 5 ML Vial IV.FLUSH SCH (08:19)
[2017-11-04] MEDS: Duloxetine 60 MG DR Capsule PO SCH (08:19)
[2017-11-04] MEDS: Lactobacillus Acidophilus/L. Spores Tablet PO SCH ×2 (08:19→23:34)
[2017-11-04] MEDS: Pantoprazole Sodium 20 MG DR Tablet PO SCH (08:19)
[2017-11-04] MEDS: dilTIAZem 60 MG Tablet PO SCH ×3 (08:20→17:47)
[2017-11-04] MEDS: Multivitamin Inj 10 ML, Folic Acid Inj 1 MG in Sodium Chlor 0.9% Inj 500 ML IV.SIG SCH (08:20)
[2017-11-04] MEDS: traZODone 100 MG Tablet PO SCH (08:20)
[2017-11-04] MEDS: Folic Acid 1 MG Tablet PO SCH (08:20)
[2017-11-04 08:28] LABS: Anion Gap 5 meq/L (5-15); Aspartate Aminotransferase 17 U/L (15-37); Blood Urea Nitrogen 11 mg/dL (7-18); Calcium 7.6 mg/dL (8.5-10.1); Carbon Dioxide 22.5 meq/L (21.0-32.0); Chloride 118 meq/L (98-107); Glomerular Filtration Rate Greater Than 89 mL/min (>89); Glucose,Random 71 mg/dL (74-106); Sodium 145 meq/L (136-145)
[2017-11-04 08:31] LABS: Alanine Aminotransferase 19 U/L (10-53); Alkaline Phosphatase 148 U/L (45-117); Total Protein 4.7 g/dL (6.4-8.2)
--- NOTE | 2017-11-04 08:56 | P.PNFP ---
Subjective Interval history: Patient seen and examined this morning. No events overnight per nursing staff. Patient appears fatigued with flat mood continue from previous exams. She is able to answer questioning, however intermittently goes to sleep during interview and exam. She does communicate that she has not had pain and has no issues/complaints. We briefly discussed her planned PEG tube placement tomorrow of which she had no questions at this time. Of note patient with audible wheezing during exam and with mild hypoglycemia on morning CMP. Patient did receive her tray during interview and was eating her breakfast upon leaving the room. Unable to complete review of systems but does state she is not in pain and has no complaints. <Chaz Vivar H - 11/04/17 09:26> Results - Labs Result diagrams: 11/04/17 07:40 11/04/17 07:40 <Abbey Goldman - 11/04/17 16:09> Abnormal lab results 11/04/17 11/04/17 Range/Units 07:40 07:40 WBC 12.5 H (4.0-11.0) th/mm3 RBC 3.24 L (4.00-5.30) mil/mm3 Hgb 9.1 L (11.6-15.3) gm/dL Hct 27.8 L (35.0-46.0) % Neut % (Auto) 79.7 H (16.0-70.0) % [place] % (Auto) 8.2 H (0.0-8.0) % Neut # (Auto) 10.0 H (1.8-7.7) th/mm3 [place] # (Auto) 1.0 H (0.0-0.9) th/mm3 Chloride 118 H (98-107) meq/L Random Glucose 71 L (74-106) mg/dL Calcium 7.6 L (8.5-10.1) mg/dL Alkaline Phosphatase 148 H (45-117) U/L Total Protein 4.7 L (6.4-8.2) g/dL Albumin 1.0 L (3.4-5.0) g/dL Short CBC 11/04/17 Range/Units 07:40 WBC 12.5 H (4.0-11.0) th/mm3 Hgb 9.1 L (11.6-15.3) gm/dL Hct 27.8 L (35.0-46.0) % Plt Count 205 (150-450) th/mm3 BMP 11/04/17 07:40 Sodium 145 Potassium 4.0 Chloride 118 H Carbon Dioxide 22.5 BUN 11 Creatinine 0.77 Calcium 7.6 L Liver Function 11/04/17 Range/Units 07:40 Total Bilirubin 0.3 (0.2-1.0) mg/dL AST 17 (15-37) U/L ALT 19 (10-53) U/L Alkaline Phosphatase 148 H (45-117) U/L Albumin 1.0 L (3.4-5.0) g/dL <Abbey Goldman - 11/04/17 16:09> Abnormal lab results 11/03/17 11/04/17 11/04/17 Range/Units 06:50 07:40 07:40 WBC 12.5 H (4.0-11.0) th/mm3 RBC 3.24 L (4.00-5.30) mil/mm3 Hgb 9.1 L (11.6-15.3) gm/dL Hct 27.8 L (35.0-46.0) % Neut % (Auto) 79.7 H (16.0-70.0) % [place] % (Auto) 8.2 H (0.0-8.0) % Neut # (Auto) 10.0 H (1.8-7.7) th/mm3 [place] # (Auto) 1.0 H (0.0-0.9) th/mm3 Chloride 118 H (98-107) meq/L Random Glucose 71 L (74-106) mg/dL Calcium 7.6 L (8.5-10.1) mg/dL Alkaline Phosphatase 148 H (45-117) U/L Total Creatine Kinase 16 L (26-192) U/L C-Reactive Protein 7.60 H (0.00-0.30) mg/dL Total Protein 4.7 L (6.4-8.2) g/dL Albumin 1.0 L (3.4-5.0) g/dL Short CBC 11/04/17 Range/Units 07:40 WBC 12.5 H (4.0-11.0) th/mm3 Hgb 9.1 L (11.6-15.3) gm/dL Hct 27.8 L (35.0-46.0) % Plt Count 205 (150-450) th/mm3 BMP 11/04/17 07:40 Sodium 145 Potassium 4.0 Chloride 118 H Carbon Dioxide 22.5 BUN 11 Creatinine 0.77 Calcium 7.6 L Cardiac Enzymes 11/03/17 Range/Units 06:50 Total Creatine Kinase 16 L (26-192) U/L Liver Function 11/04/17 Range/Units 07:40 Total Bilirubin 0.3 (0.2-1.0) mg/dL AST 17 (15-37) U/L ALT 19 (10-53) U/L Alkaline Phosphatase 148 H (45-117) U/L Albumin 1.0 L (3.4-5.0) g/dL <Chaz Vivar - 11/04/17 08:56> - Imaging Impressions Chest X-Ray 11/04/17 00:00 CONCLUSION: Atelectasis at the lung bases. Otherwise, no acute finding is identified. <Abbey Goldman - 11/04/17 16:09> Physical Exam Vital signs: Vital Signs 11/03/17 20:00 11/03/17 20:30 11/04/17 00:00 Temperature 99.2 F 98.1 F Pulse Rate 131 H 130 H 113 H Respiratory Rate 18 18 Blood Pressure 141/73 H 158/90 H Pulse Oximetry 97 98 11/04/17 00:30 11/04/17 04:00 11/04/17 04:30 Temperature 98.4 F Pulse Rate 126 H 128 H 137 H Respiratory Rate 18 Blood Pressure 130/90 Pulse Oximetry 99 11/04/17 07:47 11/04/17 08:00 11/04/17 12:00 Temperature 97.9 F 98.1 F Pulse Rate 84 123 H Respiratory Rate 15 20 21 Blood Pressure 138/83 124/77 Pulse Oximetry 99 97 Intake & Output 11/03/17 11/04/17 11/04/17 18:59 06:59 18:59 Intake Total 460 / 460 1880.2 / 1880.2 1030 / 1030 Output Total 1151 / 1151 1350 / 1350 Balance -691 / -691 530.2 / 530.2 1030 / 1030 Weight 105.3 kg Intake: IV 100 / 100 1880.2 / 1880.2 1030 / 1030 NS Inj 1,000 ML @ 140 mls/hr IV 1070 / 1070 930 / 930 .CONT .Q7H9M [facility] Rx#:[id number] Maxipime Inj 2,000 MG In NS Inj 100 / 100 200 / 200 100 / 100 100 ML @ 200 mls/hr IV.SIG Q8H [facility] Rx#:[id number] Cubicin Inj 800 MG In NS Inj 100 / 100 100 ML @ 200 mls/hr IV.SIG Q24H [facility] Rx#:[id number] MVI-12 Inj 10 ML Folvite Inj 1 510.2 / 510.2 MG In NS Inj 500 ML @ 125 mls/ hr IV.SIG DAILY [facility] Rx#: [id number] Oral 360 / 360 Output: Urine 1150 / 1150 1350 / 1350 Stool Other: Date of Last Bowel Movement 11/03/17 # Incontinent Bowel Movements 1 <Abbey Goldman - 11/04/17 16:09> Vital Signs 11/03/17 12:00 11/03/17 16:00 11/03/17 20:00 Temperature 97.9 F 98.6 F 99.2 F Pulse Rate 120 H 130 H 131 H Respiratory Rate 20 20 18 Blood Pressure 143/99 H 157/76 H 141/73 H Pulse Oximetry 100 96 97 11/03/17 20:30 11/04/17 00:00 11/04/17 00:30 Temperature 98.1 F Pulse Rate 130 H 113 H 126 H Respiratory Rate 18 Blood Pressure 158/90 H Pulse Oximetry 98 11/04/17 04:00 11/04/17 04:30 11/04/17 07:47 Temperature 98.4 F Pulse Rate 128 H 137 H Respiratory Rate 18 15 Blood Pressure 130/90 Pulse Oximetry 99 Intake & Output 11/03/17 11/04/17 11/04/17 18:59 06:59 18:59 Intake Total 460 / 460 1880.2 / 1880.2 1030 / 1030 Output Total 1151 / 1151 1350 / 1350 Balance -691 / -691 530.2 / 530.2 1030 / 1030 Weight 105.3 kg Intake: IV 100 / 100 1880.2 / 1880.2 1030 / 1030 NS Inj 1,000 ML @ 140 mls/hr IV 1070 / 1070 930 / 930 .CONT .Q7H9M [facility] Rx#:[id number] Maxipime Inj 2,000 MG In NS Inj 100 / 100 200 / 200 100 / 100 100 ML @ 200 mls/hr IV.SIG Q8H [facility] Rx#:[id number] Cubicin Inj 800 MG In NS Inj 100 / 100 100 ML @ 200 mls/hr IV.SIG Q24H [facility] Rx#:[id number] MVI-12 Inj 10 ML Folvite Inj 1 510.2 / 510.2 MG In NS Inj 500 ML @ 125 mls/ hr IV.SIG DAILY [facility] Rx#: [id number] Oral 360 / 360 Output: Urine 1150 / 1150 1350 / 1350 Stool Other: Date of Last Bowel Movement 11/03/17 # Incontinent Bowel Movements 1 <Chaz Vivar H - 11/04/17 08:56> Narrative: GENERAL: Morbidly obese -[place] female lying in bed in no acute distress. SKIN: Cool and dry. No rash. Lower abdominal and bilateral lower extremity wounds bandaged with multiple ABD pads and surgical tape. No acute signs of purulent drainage or acute bleeding. Bedding overlying affected area is partly saturated. PICC line inserted in the right upper extremity without surrounding erythema, warmth, or other signs of infection. HEENT: Atraumatic, normocephalic with extraocular motions intact. No rhinorrhea. No visible lymphadenopathy or jugulovenous distension appreciated. CARDIOVASCULAR: Tachycardic rate (baseline) and regular rhythm without obvious murmurs, gallops, or rubs. RESPIRATORY: Bilateral audible wheezes with mild crackles during anterior auscultation which is a change from yesterday's exam. Breath sounds difficult to auscultate due to body habitus. No increased work of breathing. GASTROINTESTINAL: Abdomen diffuse, soft with soft bowel sounds likely due to body habitus. Patient nontender in the upper 2 quadrants, deferred tenderness evaluation and lower quadrants due to wounds. No masses appreciated. Rectal tube in place with liquid fecal material in reservoir. Hopper catheter in place with minimal urinary output and reservoir. MUSCULOSKELETAL: No cyanosis. Stable bilateral lower extremities with 1+ pitting edema. No calf tenderness. Left knee effusion stable. SCDs not in place. NEURO/PSYCH: Afocal. Patient awake and alert, however only oriented to PPT 2, baseline. Patient with with continued flattened mood with fatigue. Unable to complete review of systems but does state she is not in pain and has no complaints. <Chaz Vivar - 11/04/17 09:26> - Urinary Catheter Management Female External Cath placed during this visit: no <Abbey Goldman 11/04/17 16:09> no <Chaz Vivar 11/04/17 11:08> Indwelling Urethral Catheter Cath placed during this visit: no <Abbey Goldman 11/04/17 16:09> yes, but has since been removed by the nurse <Chaz Vivar 11/04/17 11:08> Reason for continuing: Severe pressure ulcer/wound <Chaz Vivar 11/04/17 08:56> Insertion date: 09/27/17 <Chaz Vivar 11/04/17 08:56> Insertion time: 08:20 <Chaz Vivar 11/04/17 08:56> Removal date: 10/05/17 <Chaz Vivar 11/04/17 08:56> Removal time: 17:30 <Chaz Vivar 11/04/17 08:56> Assessment and Plan - Assessment (1) Lung crackles Code(s): R09.89 - Other specified symptoms and signs involving the circulatory and respiratory systems Status: Acute (2) Open wound of abdominal wall Code(s): S31.109A - Unspecified open wound of abdominal wall, unspecified quadrant without penetration into peritoneal cavity, initial encounter Status : Acute (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 difficile diarrhea Code(s): A04.72 - Enterocolitis due to Clostridium difficile, not specified as recurrent Status: Acute (9) Fall Code(s): W19.XXXA - Unspecified fall, initial encounter Status: Acute (10) Hypertension Code(s): I10 - Essential (primary) hypertension Status: Acute (11) Schizophrenia Code(s): F20.9 - Schizophrenia, unspecified Status: Chronic (12) Tachycardia Code(s): R00.0 - Tachycardia, unspecified Status: Chronic (13) Nutrition, metabolism, and development symptoms Code(s): R63.8 - Other symptoms and signs concerning food and fluid intake Status: Acute <Abbey Goldman - 11/04/17 16:09> (1) Lung crackles Code(s): R09.89 - Other specified symptoms and signs involving the circulatory and respiratory systems Status: Acute Plan: Patient with wheezing and crackles on lung exam today, new from baseline. Patient without desaturation or increased work of breathing at this time. She denies any cough or choking over the last 24 hours. Patient is at high risk for aspiration as she is bedbound and tends to lie flat while eating. Differential remains wide including but not limited to atelectasis versus H Versus aspiration pneumonia versus -Portable chest x-ray 11/04/17: BL basilar atelectasis without other acute abnormality -Patient repositioned in bed with head elevated, discussed with nursing to elevate head during meals -Incentive spirometry reordered, initially ordered on 10/02/17 -Respiratory CPT ordered Medications: -Patient currently on cefepime and daptomycin for antibiotic coverage secondary to her surgical wounds in the infection as below (2) Open wound of abdominal wall Code(s): S31.109A - Unspecified open wound of abdominal wall, unspecified quadrant without penetration into peritoneal cavity, initial encounter Status : Acute Plan: -Wound Culture 09/27/17: Pseudomonas and Group B Step -Blood Cultures 10/24/17: Negative -Tissue Cultures 10/09/17: Negative -Abdominal wound culture 11/01/17: Group D Enterococcus, sensitivities pending -Infectious disease consulted -Continue cefepime until 11/08/17 -Continue oral vancomycin for Clostridium difficile until cefepime is discontinued on 11/08/17 -Start Daptomycin for suspected VRE on ABD wound culture on 11/03/17; monitor CK levels -General surgery consulted -Surgical debridement 10/09, wound VAC applied. -VAC changed 10/12 removed 10/15. -Debridement, irrigation, with suturing performed on 10/16. 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 NGTD, cleared from ID standpoint to go rehab with IV Cefepime until 11/08/17 -Orthopedics ([place] for Dr. 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 She completed rehabilitation and was discharged home August 23. Patient was on approximately 2 weeks of po Keflex 500 mg. Per Ortho, examination of left knee shows no evidence of infection. (4) Cellulitis of knee, left Code(s): L03.116 - Cellulitis of left lower limb Status: Acute Plan: -ID consulted, recommend Cefepime until 11/08/17 -Orthopedic surgery consulted, no further recommendations at this time Medications: -Cefepime IV (09/29/17-11/08/17) per ID; PICC line placed for antibiotic administration at rehab once wounds are stable for DC -Patient received 2 weeks of Keflex 500mg PO by Orthopedic surgery as outpatient prior to admission -Levaquin stopped 10/20 per ID -Diflucan course completed 10/18 (5) Poor nutrition Code(s): E63.9 - Nutritional deficiency, unspecified Status: Acute Plan: -Patient with poor nutritional status during hospitalization -Severe concern of poor wound healing secondary to poor nutritional status -Power Hammer Operator consulted for calorie count and nutritional guidance, which has been limited due to NPO status prior to surgery, however patient continues to have poor intake -Multivitamin IV added with Hermes supplementation BID -Albumin levels continued to be decreased -Discussed PEG tube placement with and POA, Emile Mcclain [phone], with all questions answered. He states that he is concerned for her nutritional status as well and agrees with proceeding forward with PEG tube placement. -IR consulted and will obtain consents, procedure likely to be completed on 11/05/17 PT/INR ordered for 11/05/17 Patient to be n.p.o. at midnight on 11/04/17, for PEG tube placement (6) Hypokalemia Code(s): E87.6 - Hypokalemia Status: Resolved Plan: -Patient with hypokalemia during hospitalization. Appears to be not tolerating ER capsules as they were found whole in her rectal tube reservoir. Medications: -Magnesium 64 mg daily -Potassium Chloride 40mEq BID (Non-ER/Enteric Coated) -Plan to treat as necessary (7) Anemia Code(s): D64.9 - Anemia, unspecified Status: Resolved Plan: -Patient found to have asymptomatic anemia H/H of 10/05.3 with MCV of 82 on -Patient has received multiple transfusions during hospitalization with hemoglobin ranging from 7.5 to 8.7 over the last week -Rectal tube and Hopper catheter without any signs of acute bleeding -Dressings without obvious signs of bleeding -Due to critical condition and severity of abdominal wounds with decreasing hemoglobin, 2 units PRBC ordered -Patient did receive Lasix between units to assist with possible fluid overload -Posttransfusion H/H 11.6/34.7 on 10/30/17 -Continue to monitor (8) C. difficile diarrhea Code(s): A04.72 - Enterocolitis due to Clostridium difficile, not specified as recurrent Status: Acute Plan: -C diff cultures positive 10/19/17 -Vancomycin PO 125 4 times daily until completion of Cefepime per ID -Continue with probiotics. -Rectal tube in place (9) Fall Code(s): W19.XXXA - Unspecified fall, initial encounter Status: Acute Plan: Patient with fall on 10/19/17. No loss of consciousness, no head injury, left knee and ankle pain. -Knee x-ray- Prosthesis in place, No abnormality appreciated -Ankle x-ray- No abnormality appreciated -Patient to continue with PT (10) Hypertension Code(s): I10 - Essential (primary) hypertension Status: Acute Plan: History of hypertension -Continue to monitor -Clonidine PRN for BP > 180/100 (11) Schizophrenia Code(s): F20.9 - Schizophrenia, unspecified Status: Chronic Plan: -Psychiatry consulted upon admission Medications: -Continue Abilify 30 mg for psychosis -Continue buspirone 30 mg, trazodone 100 mg and Cymbalta 60 mg -Hold anticholinergics per Psych (12) Tachycardia Code(s): R00.0 - Tachycardia, unspecified Status: Chronic Plan: -Patient with chronic history of tachycardia -EKG 09/27/17: Sinus tachycardia with rate of [address] or interval changes. (Per medical team read) Medications: -Continue home diltiazem and carvedilol (13) Nutrition, metabolism, and development symptoms Code(s): R63.8 - Other symptoms and signs concerning food and fluid intake Status: Acute Plan: Fluids: Changed to D5+1/2NS at maintenance rate (140 mL/h) as urinary output has decreased and patient with mild hypoglycemia on CMP Electrolytes: Replete as needed. Nutrition: Cardiac diet with Ensure, continue to monitor po intake, supplement with ensure. Encouraged patient that she needed to increase p.o. intake in order to heal -Power Hammer Operator consulted for calorie count and nutritional guidance -Multivitamin IV added with Hermes supplementation BID -PEG tube placement planned for 11/05/17; dietary recommends vital 1.5 at 50 mL/h at that time DVT prophylaxis: SCDs, Defer medical prophylaxis due to anemia Continue to work with OT/PT to improve ambulation <Chaz Vivar H - 11/04/17 11:07> - Assessment and Plan Discussed Condition With: Dr. Goldman <Chaz Vivar - 11/04/17 08:56> - Attending Attestation Discussed at length with Dr. Vivar; I agree with the plan. <Abbey Goldman - 11/04/17 16:09> <Chaz Vivar H - Last Filed: 11/04/17 11:07> (2) Open wound of abdominal wall Qualifiers: Encounter type: initial encounter Qualified Code(s): S31.109A - Unspecified open wound of abdominal wall, unspecified quadrant without penetration into peritoneal cavity, initial encounter (7) Anemia Qualifiers: Anemia type: unspecified type Qualified Code(s): D64.9 - Anemia, unspecified (10) Hypertension Qualifiers: Hypertension type: essential hypertension Qualified Code(s): I10 - Essential (primary) hypertension <Abbey Goldman - Last Filed: 11/04/17 16:09> (2) Open wound of abdominal wall Qualifiers: Encounter type: initial encounter Qualified Code(s): S31.109A - Unspecified open wound of abdominal wall, unspecified quadrant without penetration into peritoneal cavity, initial encounter (7) Anemia Qualifiers: Anemia type: unspecified type Qualified Code(s): D64.9 - Anemia, unspecified (10) Hypertension Qualifiers: Hypertension type: essential hypertension Qualified Code(s): I10 - Essential (primary) hypertension <Chaz Vivar H - Last Filed: 11/04/17 11:07> (2) Open wound of abdominal wall Qualifiers: Encounter type: initial encounter Qualified Code(s): S31.109A - Unspecified open wound of abdominal wall, unspecified quadrant without penetration into peritoneal cavity, initial encounter (7) Anemia Qualifiers: Anemia type: unspecified type Qualified Code(s): D64.9 - Anemia, unspecified (10) Hypertension Qualifiers: Hypertension type: essential hypertension Qualified Code(s): I10 - Essential (primary) hypertension <Abbey Goldman - Last Filed: 11/04/17 16:09> (2) Open wound of abdominal wall Qualifiers: Encounter type: initial encounter Qualified Code(s): S31.109A - Unspecified open wound of abdominal wall, unspecified quadrant without penetration into peritoneal cavity, initial encounter (7) Anemia Qualifiers: Anemia type: unspecified type Qualified Code(s): D64.9 - Anemia, unspecified (10) Hypertension Qualifiers: Hypertension type: essential hypertension Qualified Code(s): I10 - Essential (primary) hypertension
--- NOTE | 2017-11-04 09:54 | XR ---
EXAM DATE: 11/04/2017 9:47 AM EDT AGE/SEX: 52 years / Female INDICATIONS: Cough, congestion CLINICAL DATA: This is the patient's subsequent encounter. Patient reports that signs and symptoms h ave been present for 3 weeks and indicates a pain score of 0/10. MEDICAL/SURGICAL HISTORY: . Sepsis. Anemia. Neutropenia . . . Cervical fusion COMPARISON: [facility], CHEST 1V SINGLE AP, 10/24/2017. . FINDINGS: Portable AP view of the chest demonstrates a normal size cardiac silhouette. EKG lines overlie the pa tient. Lungs are underinflated with mild atelectasis at the lung bases. No effusion or pneumothorax i s visualized. Right upper extremity PICC is present. Distal tip is not well visualized. The bones and soft tissues demonstrate no acute abnormality. Cervical spine hardware is visualized. CONCLUSION: Atelectasis at the lung bases. Otherwise, no acute finding is identified. Electronically signed by: Thor Corral MD 11/04/2017 9:52 AM EDT
[2017-11-04] MEDS: DAPTOmycin Inj 800 MG in Sodium Chlor 0.9% Inj 100 ML IV.SIG SCH (11:31)
[2017-11-04] MEDS: Dextrose 5%/NaCl 0.45% Inj 1,000 ML IV.CONT SCH ×3 (11:32→23:35)
--- NOTE | 2017-11-04 15:17 | P.PNGS ---
Subjective Patient reports: no new complaints, feels better, pain is less (Patient states she is tolerating diet better and eating more) Physical Exam Vital signs: Vital Signs 11/03/17 16:00 11/03/17 20:00 11/03/17 20:30 Temperature 98.6 F 99.2 F Pulse Rate 130 H 131 H 130 H Respiratory Rate 20 18 Blood Pressure 157/76 H 141/73 H Pulse Oximetry 96 97 11/04/17 00:00 11/04/17 00:30 11/04/17 04:00 Temperature 98.1 F 98.4 F Pulse Rate 113 H 126 H 128 H Respiratory Rate 18 18 Blood Pressure 158/90 H 130/90 Pulse Oximetry 98 99 11/04/17 04:30 11/04/17 07:47 11/04/17 08:00 Temperature 97.9 F Pulse Rate 137 H 84 Respiratory Rate 15 20 Blood Pressure 138/83 Pulse Oximetry 99 11/04/17 12:00 Temperature 98.1 F Pulse Rate 123 H Respiratory Rate 21 Blood Pressure 124/77 Pulse Oximetry 97 Intake & Output 11/03/17 11/04/17 11/04/17 18:59 06:59 18:59 Intake Total 460 / 460 1880.2 / 1880.2 1030 / 1030 Output Total 1151 / 1151 1350 / 1350 Balance -691 / -691 530.2 / 530.2 1030 / 1030 Weight 105.3 kg Intake: IV 100 / 100 1880.2 / 1880.2 1030 / 1030 NS Inj 1,000 ML @ 140 mls/hr IV 1070 / 1070 930 / 930 .CONT .Q7H9M [facility] Rx#:[id number] Maxipime Inj 2,000 MG In NS Inj 100 / 100 200 / 200 100 / 100 100 ML @ 200 mls/hr IV.SIG Q8H [facility] Rx#:[id number] Cubicin Inj 800 MG In NS Inj 100 / 100 100 ML @ 200 mls/hr IV.SIG Q24H [facility] Rx#:[id number] MVI-12 Inj 10 ML Folvite Inj 1 510.2 / 510.2 MG In NS Inj 500 ML @ 125 mls/ hr IV.SIG DAILY [facility] Rx#: [id number] Oral 360 / 360 Output: Urine 1150 / 1150 1350 / 1350 Stool 1 / 1 Other: Date of Last Bowel Movement 11/03/17 # Incontinent Bowel Movements 1 - Constitutional no acute distress - Routine HEENT Exam Head: Present: normocephalic - Routine Abdominal Exam Present: surgical scars, wound (Lower abdomen clean and dry dressing changed earlier today) - Urinary Catheter Management Female External Cath placed during this visit: no Indwelling Urethral Catheter Cath placed during this visit: yes, but has since been removed by the nurse Reason for continuing: Severe pressure ulcer/wound Insertion date: 09/27/17 Insertion time: 08:20 Removal date: 10/05/17 Removal time: 17:30 Assessment and Plan - Plan Continue local wound care Encourage p.o. intake Calorie counts ongoing may not require G-tube - Attending Attestation NOTE FOR SURGICAL ATTENDING, DR. MEENAKSHI MAR I attest that I had a [id number] encounter with the patient on the same day, and personally performed and documented my assessment and findings in the medical record. The following services were provided during this hospital visit: Chart data review, vital sign assessments/reviewing monitor data Review of consultations notes if present. Medication orders/review and/or management Ordering and/or reviewing lab tests Ordering and/or interpreting/reviewing x-rays and/or diagnostic studies Care of the patient and discussion of the patient with the care team Documentation time To help prompt me to consider important information that might be impacting today's encounter and assessment, Information from prior notes written by myself or my colleagues may have been "brought forward/copy and pasted" into today's note.
[2017-11-05] MEDS ORDERED: Dextrose 5%/NaCl 0.45% Inj 1,000 ML IV.CONT SCH (00:01)
[2017-11-05] MEDS: Morphine Sulfate Inj 2 MG/ML Vial IV.PUSH PRN ×2 (03:21→15:58)
[2017-11-05 05:09] LABS: Baso # (Auto) 0.1 th/mm3 (0.0-0.2); Baso % (Auto) 0.4 % (0.0-2.0); Eos # (Auto) 0.4 th/mm3 (0.0-0.4); Eos % (Auto) 2.9 % (0.0-4.0); Hematocrit 27.8 % (35.0-46.0); Hemoglobin 9.4 gm/dL (11.6-15.3); Lymph # (Auto) 1.6 th/mm3 (1.0-4.8); Lymph % (Auto) 11.5 % (9.0-44.0); Mean Corpuscular HGB Conc 33.7 % (32.0-36.0); Mean Corpuscular Hemoglobin 28.7 pg (27.0-34.0); Mean Corpuscular Volume 85.1 fL (80.0-100.0); Mean Platelet Volume 6.6 fL (7.0-11.0); Mono # (Auto) 1.2 th/mm3 (0.0-0.9); Mono % (Auto) 8.6 % (0.0-8.0); Neut # (Auto) 10.5 th/mm3 (1.8-7.7); Neut % (Auto) 76.6 % (16.0-70.0); Platelet Count 184 th/mm3 (150-450); Red Blood Count 3.27 mil/mm3 (4.00-5.30); White Blood Count 13.7 th/mm3 (4.0-11.0)
[2017-11-05 05:26] LABS: INR 1.1 Ratio; Prothrombin Time 11.1 sec (9.8-11.6)
[2017-11-05 05:35] LABS: Alanine Aminotransferase 20 U/L (10-53); Anion Gap 6 meq/L (5-15); Aspartate Aminotransferase 17 U/L (15-37); Blood Urea Nitrogen 11 mg/dL (7-18); Calcium 7.8 mg/dL (8.5-10.1); Carbon Dioxide 21.1 meq/L (21.0-32.0); Chloride 115 meq/L (98-107); Glomerular Filtration Rate Greater Than 89 mL/min (>89); Glucose,Random 94 mg/dL (74-106); Sodium 142 meq/L (136-145)
[2017-11-05 05:38] LABS: Alkaline Phosphatase 151 U/L (45-117); Total Protein 4.8 g/dL (6.4-8.2)
--- NOTE | 2017-11-05 08:29 | P.PNFP ---
Subjective Interval history: Patient seen and examined this morning. No acute events overnight per nursing staff. Patient continues to be oriented PPT 2 with a flat affect. She does converse more during interview today, however states that "last night she went to Tavia's house." She is able to communicate that she is not in pain and has no current complaints at this time. We briefly discussed the need for PEG tube to improve her nutrition in order for her abdominal wounds to heal. Patient states that she is nervous about the PEG tube, but understands it is needed. She has no questions at this time. <Chaz Vivar H - 11/05/17 08:28> Results - Labs Result diagrams: 11/05/17 05:00 11/05/17 05:00 <John Joseph - 11/05/17 21:13> Abnormal lab results 11/05/17 11/05/17 Range/Units 05:00 05:00 WBC 13.7 H (4.0-11.0) th/mm3 RBC 3.27 L (4.00-5.30) mil/mm3 Hgb 9.4 L (11.6-15.3) gm/dL Hct 27.8 L (35.0-46.0) % MPV 6.6 L (7.0-11.0) fL Neut % (Auto) 76.6 H (16.0-70.0) % [place] % (Auto) 8.6 H (0.0-8.0) % Neut # (Auto) 10.5 H (1.8-7.7) th/mm3 [place] # (Auto) 1.2 H (0.0-0.9) th/mm3 Chloride 115 H (98-107) meq/L Calcium 7.8 L (8.5-10.1) mg/dL Alkaline Phosphatase 151 H (45-117) U/L Total Protein 4.8 L (6.4-8.2) g/dL Albumin 1.0 L (3.4-5.0) g/dL Short CBC 11/05/17 Range/Units 05:00 WBC 13.7 H (4.0-11.0) th/mm3 Hgb 9.4 L (11.6-15.3) gm/dL Hct 27.8 L (35.0-46.0) % Plt Count 184 (150-450) th/mm3 BMP 11/05/17 05:00 Sodium 142 Potassium 4.0 Chloride 115 H Carbon Dioxide 21.1 BUN 11 Creatinine 0.80 Calcium 7.8 L Liver Function 11/05/17 Range/Units 05:00 Total Bilirubin 0.3 (0.2-1.0) mg/dL AST 17 (15-37) U/L ALT 20 (10-53) U/L Alkaline Phosphatase 151 H (45-117) U/L Albumin 1.0 L (3.4-5.0) g/dL <John Joseph - 11/05/17 21:13> Abnormal lab results 11/04/17 11/05/17 11/05/17 Range/Units 07:40 05:00 05:00 WBC 13.7 H (4.0-11.0) th/mm3 RBC 3.27 L (4.00-5.30) mil/mm3 Hgb 9.4 L (11.6-15.3) gm/dL Hct 27.8 L (35.0-46.0) % MPV 6.6 L (7.0-11.0) fL Neut % (Auto) 76.6 H (16.0-70.0) % Barn[place] % (Auto) 8.6 H (0.0-8.0) % Neut # (Auto) 10.5 H (1.8-7.7) th/mm3 [place] # (Auto) 1.2 H (0.0-0.9) th/mm3 Chloride 118 H 115 H (98-107) meq/L Random Glucose 71 L (74-106) mg/dL Calcium 7.6 L 7.8 L (8.5-10.1) mg/dL Alkaline Phosphatase 148 H 151 H (45-117) U/L Total Protein 4.7 L 4.8 L (6.4-8.2) g/dL Albumin 1.0 L 1.0 L (3.4-5.0) g/dL Short CBC 11/05/17 Range/Units 05:00 WBC 13.7 H (4.0-11.0) th/mm3 Hgb 9.4 L (11.6-15.3) gm/dL Hct 27.8 L (35.0-46.0) % Plt Count 184 (150-450) th/mm3 BMP 11/04/17 11/05/17 07:40 05:00 Sodium 145 142 Potassium 4.0 4.0 Chloride 118 H 115 H Carbon Dioxide 22.5 21.1 BUN 11 11 Creatinine 0.77 0.80 Calcium 7.6 L 7.8 L Liver Function 11/04/17 11/05/17 Range/Units 07:40 05:00 Total Bilirubin 0.3 0.3 (0.2-1.0) mg/dL AST 17 17 (15-37) U/L ALT 19 20 (10-53) U/L Alkaline Phosphatase 148 H 151 H (45-117) U/L Albumin 1.0 L 1.0 L (3.4-5.0) g/dL <Chaz Vivar - 11/05/17 08:28> - Imaging Impressions Chest X-Ray 11/04/17 00:00 CONCLUSION: Atelectasis at the lung bases. Otherwise, no acute finding is identified. <Chaz Vivar - 11/05/17 08:28> Physical Exam Vital signs: Vital Signs 11/05/17 00:00 11/05/17 01:26 11/05/17 04:00 Temperature 98.5 F 98.1 F Pulse Rate 141 H 148 H Respiratory Rate 18 16 18 Blood Pressure 144/82 H 157/75 H Pulse Oximetry 98 100 11/05/17 08:00 11/05/17 11:03 11/05/17 12:00 Temperature 97.9 F 97 F L Pulse Rate 126 H 126 H 119 H Respiratory Rate 16 12 16 Blood Pressure 136/86 128/77 Pulse Oximetry 96 99 11/05/17 15:58 Temperature Pulse Rate Respiratory Rate 16 Blood Pressure Pulse Oximetry Intake & Output 11/05/17 11/05/17 11/06/17 06:59 18:59 06:59 Intake Total 1810.2 / 1810.2 3120 / 3120 Output Total 850 / 850 1200 / 1200 Balance 960.2 / 960.2 1920 / 1920 Weight 106.5 kg Intake: IV 1810.2 / 1810.2 1200 / 1200 D5W/1/2 NS Inj 1,000 ML @ 140 1000 / 1000 1000 / 1000 mls/hr IV.CONT .Q7H9M [facility] Rx#: [id number] Maxipime Inj 2,000 MG In NS Inj 200 / 200 100 / 100 100 ML @ 200 mls/hr IV.SIG Q8H [facility] Rx#:[id number] Cubicin Inj 800 MG In NS Inj 100 / 100 100 / 100 100 ML @ 200 mls/hr IV.SIG Q24H [facility] Rx#:[id number] MVI-12 Inj 10 ML Folvite Inj 1 510.2 / 510.2 MG In NS Inj 500 ML @ 125 mls/ hr IV.SIG DAILY [facility] Rx#: [id number] Oral 720 / 720 Other 1200 / 1200 Output: Urine 850 / 850 900 / 900 Stool 300 / 300 Other: Other Intake Source Saline Solution Date of Last Bowel Movement 11/04/17 11/05/17 # Incontinent Bowel Movements 1 <John Joseph - 11/05/17 21:13> Vital Signs 11/04/17 12:00 11/04/17 16:00 11/04/17 17:00 Temperature 98.1 F 98 F Pulse Rate 109 H 130 H 128 H Respiratory Rate 21 20 22 Blood Pressure 124/77 144/92 H Pulse Oximetry 97 100 11/04/17 20:00 11/05/17 00:00 11/05/17 01:26 Temperature 98.6 F 98.5 F Pulse Rate 131 H 141 H Respiratory Rate 18 18 16 Blood Pressure 134/90 144/82 H Pulse Oximetry 97 98 11/05/17 04:00 Temperature 98.1 F Pulse Rate 148 H Respiratory Rate 18 Blood Pressure 157/75 H Pulse Oximetry 100 Intake & Output 11/04/17 11/05/17 11/05/17 18:59 06:59 18:59 Intake Total 2810 / 2810 810.2 / 810.2 Output Total 750 / 750 850 / 850 Balance 2059 -39.8 / -39.8 Weight 106.5 kg Intake: IV 2029 810.2 / 810.2 D5W/1/2 NS Inj 1,000 ML @ 140 1000 / 1000 0 / 0 mls/hr IV.CONT .Q7H9M [facility] Rx#: [id number] NS Inj 1,000 ML @ 140 mls/hr IV 930 / 930 .CONT .Q7H9M [facility] Rx#:[id number] Maxipime Inj 2,000 MG In NS Inj 100 / 100 200 / 200 100 ML @ 200 mls/hr IV.SIG Q8H [facility] Rx#:[id number] Cubicin Inj 800 MG In NS Inj 100 / 100 100 ML @ 200 mls/hr IV.SIG Q24H [facility] Rx#:[id number] MVI-12 Inj 10 ML Folvite Inj 1 510.2 / 510.2 MG In NS Inj 500 ML @ 125 mls/ hr IV.SIG DAILY [facility] Rx#: [id number] Oral 780 / 780 Output: Urine 850 / 850 Stool 300 / 300 Urine Amount (Catheter) 450 / 450 Indwelling Urethral Catheter 450 / 450 Other: Date of Last Bowel Movement 11/04/17 # Incontinent Bowel Movements 1 <CbChaz H - 11/05/17 08:28> Narrative: GENERAL: Morbidly obese -[place] female lying in bed in no acute distress sleeping upon entering the room. SKIN: Cool and dry. No rash. Lower abdominal and bilateral lower extremity wounds bandaged with multiple ABD pads, adult briefs, and surgical tape. No acute signs of purulent drainage or acute bleeding. Bedding overlying affected area is partly saturated. PICC line inserted in the right upper extremity without surrounding erythema, warmth, or other signs of infection. HEENT: Atraumatic, normocephalic with extraocular motions intact. No rhinorrhea. No visible lymphadenopathy or jugulovenous distension appreciated. CARDIOVASCULAR: Tachycardic rate (baseline) and regular rhythm without obvious murmurs, gallops, or rubs. RESPIRATORY: Variation bilaterally on anterior auscultation. Mild wheezes at the bases without crackles or rhonchi. Breath sounds difficult to auscultate due to body habitus. No increased work of breathing. GASTROINTESTINAL: Abdomen diffuse, soft with soft bowel sounds likely due to body habitus. Patient nontender in the upper 2 quadrants, deferred tenderness evaluation and lower quadrants due to wounds. No masses appreciated. Rectal tube in place with liquid fecal material in reservoir. Hopper catheter in place with minimal urinary output and reservoir. MUSCULOSKELETAL: No cyanosis. Stable bilateral lower extremities with 1+ pitting edema. No calf tenderness. Left knee effusion stable. SCDs in place. NEURO/PSYCH: Afocal. Patient awake and alert, however only oriented to PPT 2, baseline. Patient with with continued flattened mood. Unable to complete review of systems but does state she is not in pain and has no complaints. <Chaz Vivar 11/05/17 08:28> - Urinary Catheter Management Female External Cath placed during this visit: no <John Joseph 11/05/17 21:13> no <Chaz Vivar 11/05/17 11:53> Indwelling Urethral Catheter Cath placed during this visit: no <John Joseph 11/05/17 21:13> yes, but has since been removed by the nurse <Chaz Vivar 11/05/17 11:53> Reason for continuing: Severe pressure ulcer/wound <Chaz Vivar 11/05/17 08:28> Insertion date: 09/27/17 <Chaz Vivar 11/05/17 08:28> Insertion time: 08:20 <Chaz Vivar 11/05/17 08:28> Removal date: 10/05/17 <Chaz Vivar 11/05/17 08:28> Removal time: 17:30 <Chaz Vivar 11/05/17 08:28> Assessment and Plan - Assessment (1) Lung crackles Code(s): R09.89 - Other specified symptoms and signs involving the circulatory and respiratory systems Status: Resolved (2) Open wound of abdominal wall Code(s): S31.109A - Unspecified open wound of abdominal wall, unspecified quadrant without penetration into peritoneal cavity, initial encounter Status : Acute (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 difficile diarrhea Code(s): A04.72 - Enterocolitis due to Clostridium difficile, not specified as recurrent Status: Acute (9) Fall Code(s): W19.XXXA - Unspecified fall, initial encounter Status: Acute (10) Hypertension Code(s): I10 - Essential (primary) hypertension Status: Acute (11) Schizophrenia Code(s): F20.9 - Schizophrenia, unspecified Status: Chronic (12) Tachycardia Code(s): R00.0 - Tachycardia, unspecified Status: Chronic (13) Nutrition, metabolism, and development symptoms Code(s): R63.8 - Other symptoms and signs concerning food and fluid intake Status: Acute <John Joseph - 11/05/17 21:13> (1) Lung crackles Code(s): R09.89 - Other specified symptoms and signs involving the circulatory and respiratory systems Status: Resolved Plan: Patient with wheezing and crackles on lung exam today, new from baseline. Patient without desaturation or increased work of breathing at this time. She denies any cough or choking over the last 24 hours. Patient is at high risk for aspiration as she is bedbound and tends to lie flat while eating. Differential remains wide including but not limited to atelectasis versus H Versus aspiration pneumonia -11/05/12: Physical exam improved from 11/04/17, crackles resolved from previous exam -Portable chest x-ray 11/04/17: BL basilar atelectasis without other acute abnormality -Patient repositioned in bed with head elevated, discussed with nursing to elevate head during meals -Incentive spirometry reordered, initially ordered on 10/02/17 -Respiratory CPT ordered Medications: -Patient currently on cefepime and daptomycin for antibiotic coverage secondary to her surgical wounds in the infection as below (2) Open wound of abdominal wall Code(s): S31.109A - Unspecified open wound of abdominal wall, unspecified quadrant without penetration into peritoneal cavity, initial encounter Status : Acute Plan: -Wound Culture 09/27/17: Pseudomonas and Group B Step -Blood Cultures 10/24/17: Negative -Tissue Cultures 10/09/17: Negative -Abdominal wound culture 11/01/17: Group D Enterococcus, sensitive to Daptomycin -Infectious disease consulted -Continue cefepime until 11/08/17 -Continue oral vancomycin for Clostridium difficile until cefepime is discontinued on 11/08/17 -Continue Daptomycin for VRE on ABD wound culture on 11/03/17; monitor CK levels -General surgery consulted -Surgical debridement 10/09, wound VAC applied. -VAC changed 10/12 removed 10/15. -Debridement, irrigation, with suturing performed on 10/16. 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 NGTD, cleared from ID standpoint to go rehab with IV Cefepime until 11/08/17 -Orthopedics ([place] for Dr. 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 She completed rehabilitation and was discharged home August 23. Patient was on approximately 2 weeks of po Keflex 500 mg. Per Ortho, examination of left knee shows no evidence of infection. (4) Cellulitis of knee, left Code(s): L03.116 - Cellulitis of left lower limb Status: Acute Plan: -ID consulted, recommend Cefepime until 11/08/17 -Orthopedic surgery consulted, no further recommendations at this time Medications: -Cefepime IV (09/29/17-11/08/17) per ID; PICC line placed for antibiotic administration at rehab once wounds are stable for DC -Patient received 2 weeks of Keflex 500mg PO by Orthopedic surgery as outpatient prior to admission -Levaquin stopped 10/20 per ID -Diflucan course completed 10/18 (5) Poor nutrition Code(s): E63.9 - Nutritional deficiency, unspecified Status: Acute Plan: -Patient with poor nutritional status during hospitalization -Severe concern of poor wound healing secondary to poor nutritional status -Translator Interpreter consulted for calorie count and nutritional guidance, which has been limited due to NPO status prior to surgery, however patient continues to have poor intake -Multivitamin IV added with Hermes supplementation BID -Albumin levels continued to be decreased -Discussed PEG tube placement with and POA, Emile Mcclain [phone], with all questions answered. He states that he is concerned for her nutritional status as well and agrees with proceeding forward with PEG tube placement. -IR consulted and will obtain consents, procedure likely to be completed on 11/05/17 PT/INR ordered for 11/05/17 Patient to be n.p.o. at midnight on 11/04/17, for PEG tube placement -Per chart review and discussion with staff, consents have not been obtained for possible PEG tube placement; medical team to discuss with IR as patient is currently n.p.o. (6) Hypokalemia Code(s): E87.6 - Hypokalemia Status: Resolved Plan: -Patient with hypokalemia during hospitalization. Appears to be not tolerating ER capsules as they were found whole in her rectal tube reservoir. Medications: -Magnesium 64 mg daily -Potassium Chloride 40mEq BID (Non-ER/Enteric Coated) -Plan to treat as necessary (7) Anemia Code(s): D64.9 - Anemia, unspecified Status: Resolved Plan: -Patient found to have asymptomatic anemia H/H of 20.3 with MCV of 82 on -Patient has received multiple transfusions during hospitalization with hemoglobin ranging from 7.5 to 8.7 over the last week -Rectal tube and Hopper catheter without any signs of acute bleeding -Dressings without obvious signs of bleeding -Due to critical condition and severity of abdominal wounds with decreasing hemoglobin, 2 units PRBC ordered -Patient did receive Lasix between units to assist with possible fluid overload -Posttransfusion H/H 11.6/34.7 on 10/30/17 -Continue to monitor (8) C. difficile diarrhea Code(s): A04.72 - Enterocolitis due to Clostridium difficile, not specified as recurrent Status: Acute Plan: -C diff cultures positive 10/19/17 -Vancomycin PO 125 4 times daily until completion of Cefepime per ID -Continue with probiotics. -Rectal tube in place (9) Fall Code(s): W19.XXXA - Unspecified fall, initial encounter Status: Acute Plan: Patient with fall on 10/19/17. No loss of consciousness, no head injury, left knee and ankle pain. -Knee x-ray- Prosthesis in place, No abnormality appreciated -Ankle x-ray- No abnormality appreciated -Patient to continue with PT (10) Hypertension Code(s): I10 - Essential (primary) hypertension Status: Acute Plan: History of hypertension -Continue to monitor -Clonidine PRN for BP > 180/100 (11) Schizophrenia Code(s): F20.9 - Schizophrenia, unspecified Status: Chronic Plan: -Psychiatry consulted upon admission Medications: -Continue Abilify 30 mg for psychosis -Continue buspirone 30 mg, trazodone 100 mg and Cymbalta 60 mg -Hold anticholinergics per Psych (12) Tachycardia Code(s): R00.0 - Tachycardia, unspecified Status: Chronic Plan: -Patient with chronic history of tachycardia -EKG 09/27/17: Sinus tachycardia with rate of [address] or interval changes. (Per medical team read) Medications: -Continue home diltiazem and carvedilol (13) Nutrition, metabolism, and development symptoms Code(s): R63.8 - Other symptoms and signs concerning food and fluid intake Status: Acute Plan: Fluids: Changed to D5+1/2NS at maintenance rate (140 mL/h) as urinary output has decreased and patient with mild hypoglycemia on CMP Electrolytes: Replete as needed. Nutrition: Cardiac diet with Ensure, continue to monitor po intake, supplement with ensure. Encouraged patient that she needed to increase p.o. intake in order to heal -Translator Interpreter consulted for calorie count and nutritional guidance -Multivitamin IV added with Hermes supplementation BID -PEG tube placement planned for 11/05/17;NPO 11/04/17 at midnight; dietary recommends vital 1.5 at 50 mL/h at that time DVT prophylaxis: SCDs, Defer medical prophylaxis due to anemia Continue to work with OT/PT to improve ambulation <Chaz Vivar H - 11/05/17 11:52> - Assessment and Plan . <Chaz Vivar - 11/05/17 11:53> - Attending Attestation Pt. examined and case discussed with resident physicians. I have read the above note and agree with the assessment and plan as discussed with me. I was involved in all medical decision making for this patient. John Joseph MD <John Joseph - 11/05/17 21:13> <Chaz Vivar H - Last Filed: 11/05/17 11:52> (2) Open wound of abdominal wall Qualifiers: Encounter type: initial encounter Qualified Code(s): S31.109A - Unspecified open wound of abdominal wall, unspecified quadrant without penetration into peritoneal cavity, initial encounter (7) Anemia Qualifiers: Anemia type: unspecified type Qualified Code(s): D64.9 - Anemia, unspecified (10) Hypertension Qualifiers: Hypertension type: essential hypertension Qualified Code(s): I10 - Essential (primary) hypertension <John Joseph - Last Filed: 11/05/17 21:13> (2) Open wound of abdominal wall Qualifiers: Encounter type: initial encounter Qualified Code(s): S31.109A - Unspecified open wound of abdominal wall, unspecified quadrant without penetration into peritoneal cavity, initial encounter (7) Anemia Qualifiers: Anemia type: unspecified type Qualified Code(s): D64.9 - Anemia, unspecified (10) Hypertension Qualifiers: Hypertension type: essential hypertension Qualified Code(s): I10 - Essential (primary) hypertension <Chaz Vivar - Last Filed: 11/05/17 11:52> (2) Open wound of abdominal wall Qualifiers: Encounter type: initial encounter Qualified Code(s): S31.109A - Unspecified open wound of abdominal wall, unspecified quadrant without penetration into peritoneal cavity, initial encounter (7) Anemia Qualifiers: Anemia type: unspecified type Qualified Code(s): D64.9 - Anemia, unspecified (10) Hypertension Qualifiers: Hypertension type: essential hypertension Qualified Code(s): I10 - Essential (primary) hypertension <John Joseph - Last Filed: 11/05/17 21:13> (2) Open wound of abdominal wall Qualifiers: Encounter type: initial encounter Qualified Code(s): S31.109A - Unspecified open wound of abdominal wall, unspecified quadrant without penetration into peritoneal cavity, initial encounter (7) Anemia Qualifiers: Anemia type: unspecified type Qualified Code(s): D64.9 - Anemia, unspecified (10) Hypertension Qualifiers: Hypertension type: essential hypertension Qualified Code(s): I10 - Essential (primary) hypertension
[2017-11-05] MEDS: Metoprolol Tartrate 25 MG Tablet PO SCH ×2 (10:59→22:45)
[2017-11-05] MEDS: Heparin Central Flush 100 UNIT/ML 5 ML Vial IV.FLUSH SCH (11:00)
[2017-11-05] MEDS: Folic Acid 1 MG Tablet PO SCH (11:00)
[2017-11-05] MEDS: Duloxetine 60 MG DR Capsule PO SCH (11:01)
[2017-11-05] MEDS: traZODone 100 MG Tablet PO SCH (11:01)
[2017-11-05] MEDS: Pantoprazole Sodium 20 MG DR Tablet PO SCH (11:02)
[2017-11-05] MEDS: Lactobacillus Acidophilus/L. Spores Tablet PO SCH ×2 (11:02→22:44)
[2017-11-05] MEDS: Dextrose 5%/NaCl 0.45% Inj 1,000 ML IV.CONT SCH ×3 (11:04→22:50)
[2017-11-05] MEDS: dilTIAZem 60 MG Tablet PO SCH ×3 (11:29→17:10)
[2017-11-05] MEDS ORDERED: fentaNYL Citrate Inj 100 MCG/2 ML Ampul ONE (12:02)
--- NOTE | 2017-11-05 12:43 | P.DIET ---
Nutritional Evaluation Type of nutrition evaluation: follow-up [place] [facility] [place] with decreased intake with healing wounds) Screening comments: Calorie count incomplete. Only one meal recorded. Subjective Subjective Comments: PEG being considered. Objective - Diagnosis Sepsis, Anemia, Neutropenia - Objective % IBW: 241 (IBW = 98#) Body Weight Used for Calculations: Upper end of IBW (49 kg) Energy Needs - Lower Range (kCal/kg): 30 Energy Needs - Upper Range (kCal/kg): 35 Lower Limit kCal/kg (kCals): 1,470 Upper Limit kCal/kg (kCals): 1,715 Lower Limit Protein Factor (Grams per Kg): 1.0 Upper Limit Protein Factor (Grams per Kg): 1.5 Lower Protein Needs (Protein): 49 Upper Protein Needs (Protein): 74 Fluid Factor (ml/kg): 35 Estimated Fluid Needs (ml): 1,715 Dietitian Reviewed in Medical Record: Current diet, Curent medications, Intake & Output, Labs, Medical history, Wound/DTI Diet Order: Heart Healthy, Ensure tid Wound Care Note: Per Wound Management Note: R and L perineal area- stage 3 Pt also has an open abdominal wound Objective Comments: -Surgical debridement 10/09, wound VAC applied. -VAC changed 10/12 removed 10/15. -Debridement, irrigation, with suturing performed on 10/16. -I&D of abdomen and bilateral thighs, placement of Amniox with wound closure on 11/01/17 Feeding - Current PO Supplement Current Supplement: Ensure Original Current Frequency of Supplement: Three times a day Current kCals Provided by Supplement: 250 (per 8 oz) Current Protein Provided by Supplement: 9 (per 8 oz) Assessment Assessment: Pt remains at high nutrition risk 2' to dx and presence of wounds. Poor po intake has been reported. Calorie counts have been initiated, but not enough info was recorded for RD to assess. One meal was recorded and indicates an intake of ~480 kcals and 31 gms protien in that one meal. If this is coonsistent with usual intake, it would mean the pt is able to meet nutritional needs with po intake alone. For now, recommend the addition of daily MVI/min and Hermes supplement, a therapeutic nutritional supplement that may aid in healing. Weight review indicates very erratic weights have been recorded. If TF is decided upon, recommend Vital 1.5 @ 50 mls/hr to provide 1800 kcals, 81 gms protein and 917 mls of free water. Recommendations: 1. Continue current diet and Ensure. 2. Please order Hermes bid and MVI/min q day 3. Would recommend hold off on PEG placement and continue to monitor po intake. 4. If TF is decided upon: Vital 1.5 @ 50 mls/hr goal Dietitian to Monitor: Lab values, Supplement acceptance, Intake & Output, Diet tolerance, Weight change, PO Intake, Wound/skin status, Medical course
--- NOTE | 2017-11-05 13:39 | P.PNGS ---
Subjective Patient reports: no new complaints Physical Exam Vital signs: Vital Signs 11/04/17 16:00 11/04/17 17:00 11/04/17 20:00 Temperature 98 F 98.6 F Pulse Rate 130 H 128 H 131 H Respiratory Rate 20 22 18 Blood Pressure 144/92 H 134/90 Pulse Oximetry 100 97 11/05/17 00:00 11/05/17 01:26 11/05/17 04:00 Temperature 98.5 F 98.1 F Pulse Rate 141 H 148 H Respiratory Rate 18 16 18 Blood Pressure 144/82 H 157/75 H Pulse Oximetry 98 100 11/05/17 08:00 11/05/17 11:03 Temperature 97.9 F Pulse Rate 118 H 126 H Respiratory Rate 16 12 Blood Pressure 136/86 Pulse Oximetry 96 Intake & Output 11/04/17 11/05/17 11/05/17 18:59 06:59 18:59 Intake Total 2810 / 2810 1810.2 / 1810.2 Output Total 750 / 750 850 / 850 Balance 2060 / 2060 960.2 / 960.2 Weight 106.5 kg Intake: IV 2029 / 2029 1810.2 / 1810.2 D5W/1/2 NS Inj 1,000 ML @ 140 1000 / 1000 1000 / 1000 mls/hr IV.CONT .Q7H9M [facility] Rx#: [id number] NS Inj 1,000 ML @ 140 mls/hr IV 930 / 930 .CONT .Q7H9M [facility] Rx#:[id number] Maxipime Inj 2,000 MG In NS Inj 100 / 100 200 / 200 100 ML @ 200 mls/hr IV.SIG Q8H [facility] Rx#:[id number] Cubicin Inj 800 MG In NS Inj 100 / 100 100 ML @ 200 mls/hr IV.SIG Q24H [facility] Rx#:[id number] MVI-12 Inj 10 ML Folvite Inj 1 510.2 / 510.2 MG In NS Inj 500 ML @ 125 mls/ hr IV.SIG DAILY [facility] Rx#: [id number] Oral 780 / 780 Output: Urine 850 / 850 Stool 300 / 300 Urine Amount (Catheter) 450 / 450 Indwelling Urethral Catheter 450 / 450 Other: Date of Last Bowel Movement 11/04/17 # Incontinent Bowel Movements 1 - Routine Abdominal Exam Present: soft (dressing in place, scant serous drainage) - Routine Extremities Exam Present: tenderness (incisions well approximated) - Urinary Catheter Management Female External Cath placed during this visit: no Indwelling Urethral Catheter Cath placed during this visit: yes, but has since been removed by the nurse Reason for continuing: Severe pressure ulcer/wound Insertion date: 09/27/17 Insertion time: 08:20 Removal date: 10/05/17 Removal time: 17:30 Assessment and Plan - Plan s/p I and D with closure dressing changes keep incisions dry, continue wound care tx for c diff id recs keep wounds clear of stool possible g tube planning today via IR due to protein deficiencies and poor po intake
[2017-11-05] MEDS: DAPTOmycin Inj 800 MG in Sodium Chlor 0.9% Inj 100 ML IV.SIG SCH (13:52)
[2017-11-05] MEDS: Multivitamin Inj 10 ML, Folic Acid Inj 1 MG in Sodium Chlor 0.9% Inj 500 ML IV.SIG SCH (14:40)
--- NOTE | 2017-11-05 16:08 | P.PNID ---
Subjective Remarks: ID coverage. Follow up. 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 Post op it appears she was discharged to a rehab. She was discharged from the rehab to home with her on August 23. Patient reports she lives at home with her who is on disability. Unsure of nature of disability at this time and his ability to take care of her. She was reportedly able to ambulate on her own initially followed by weakness and need for walker and then to a point where she did not want to get out of bed. It has been reported to others that she had some discharge at the left surgical site area and ortho surgeon prescribed oral keflex which reportedly lead to some improvement. She reportedly completed a week of antibiotic treatment with last day scheduled for today with some improvement in her knee pain. However her stated that she was starting to have more drainage from her knee just over the past day or so. He had pointed to several areas that had been draining pus from just above and just below the knee. He stated that a cup full of pus would drain at a time. Additionally the abdominal fold wounds appear to have been present for atleast 3 weeks now. With this background patient presented to the ED with complaints of worsening shortness of breath and mental status accompanied with symptoms of diarrhea (3 days, non-bloody) and decreased p.o. intake (5 days). She was also brought into the hospital due to infection of her knee that improved with Keflex p.o but now has returned with new additional drainage over the past few days. ID consulted for evaluation and Mment of Left knee prosthetic joint infection and neutropenia. Patient underwent incision and debridement of the inferior abdominal wall and proximal inner thighs on 10/12/2017. Receiving IV antibiotics for left knee infection/C difficile. CT scan showed small joint effusion and subcutaneous edema of the fat at the left knee. Overnight events reviewed. ebony RN Patient is awake, alert and communicative. Denies nausea vomiting. Denies chills. No fever. Antibiotics: Cefepime IV Dapto IV Vancomycin PO. Lines: Lines ok. Allergies/Adverse Reactions: Allergies amoxicillin Allergy (Verified 09/27/17 17:54) Swelling Objective Vital Signs 11/04/17 17:00 11/04/17 20:00 11/05/17 00:00 Temperature 98.6 F 98.5 F Pulse Rate 128 H 131 H 141 H Respiratory Rate 22 18 18 Blood Pressure 134/90 144/82 H Pulse Oximetry 97 98 11/05/17 01:26 11/05/17 04:00 11/05/17 08:00 Temperature 98.1 F 97.9 F Pulse Rate 148 H 118 H Respiratory Rate 16 18 16 Blood Pressure 157/75 H 136/86 Pulse Oximetry 100 96 11/05/17 11:03 11/05/17 12:00 11/05/17 15:58 Temperature 97 F L Pulse Rate 126 H 119 H Respiratory Rate 12 16 16 Blood Pressure 128/77 Pulse Oximetry 99 Intake & Output 11/04/17 11/05/17 11/05/17 18:59 06:59 18:59 Intake Total 2810 / 2810 1810.2 / 1810.2 1100 / 1100 Output Total 750 / 750 850 / 850 Balance 2060 / 2060 960.2 / 960.2 1100 / 1100 Weight 106.5 kg Intake: IV 2029 / 2029 1810.2 / 1810.2 1100 / 1100 D5W/1/2 NS Inj 1,000 ML @ 140 1000 / 1000 1000 / 1000 1000 / 1000 mls/hr IV.CONT .Q7H9M [facility] Rx#: [id number] NS Inj 1,000 ML @ 140 mls/hr IV 930 / 930 .CONT .Q7H9M [facility] Rx#:[id number] Maxipime Inj 2,000 MG In NS Inj 100 / 100 200 / 200 100 ML @ 200 mls/hr IV.SIG Q8H [facility] Rx#:[id number] Cubicin Inj 800 MG In NS Inj 100 / 100 100 / 100 100 ML @ 200 mls/hr IV.SIG Q24H [facility] Rx#:[id number] MVI-12 Inj 10 ML Folvite Inj 1 510.2 / 510.2 MG In NS Inj 500 ML @ 125 mls/ hr IV.SIG DAILY [facility] Rx#: [id number] Oral 780 / 780 Output: Urine 850 / 850 Stool 300 / 300 Urine Amount (Catheter) 450 / 450 Indwelling Urethral Catheter 450 / 450 Other: Date of Last Bowel Movement 11/04/17 # Incontinent Bowel Movements 1 11/01/17 17:45 Wound - Abdominal Gram Stain - Final 11/01/17 17:45 Wound - Abdominal Wound Culture - Final Enterococcus faecium VRE 11/01/17 17:45 Wound - Abdominal Acid Fast Bacilli Smear - Final No acid fast bacilli seen 11/01/17 17:45 Wound - Abdominal Mycobacterial Culture - Pending Lab - Hematology Results 11/04/17 11/05/17 07:40 05:00 WBC 12.5 H 13.7 H RBC 3.24 L 3.27 L Hgb 9.1 L 9.4 L Hct 27.8 L 27.8 L MCV 85.8 85.1 MCH 28.1 28.7 MCHC 32.8 33.7 RDW 16.8 17.0 Plt Count 205 184 MPV 7.2 6.6 L Neut % (Auto) 79.7 H 76.6 H Lymph % (Auto) 10.1 11.5 [place] % (Auto) 8.2 H 8.6 H Eos % (Auto) 1.6 2.9 Baso % (Auto) 0.4 0.4 Neut # (Auto) 10.0 H 10.5 H Lymph # (Auto) 1.3 1.6 [place] # (Auto) 1.0 H 1.2 H Eos # (Auto) 0.2 0.4 Baso # (Auto) 0.0 0.1 WBC Differential . . Differential Comment Auto diff final Auto diff final Lab - Chemistry Results 11/04/17 11/05/17 07:40 05:00 Sodium 145 142 Potassium 4.0 4.0 Chloride 118 H 115 H Carbon Dioxide 22.5 21.1 Anion Gap 5 6 BUN 11 11 Creatinine 0.77 0.80 Estimated GFR Greater than 89 Greater than 89 Random Glucose 71 L 94 Calcium 7.6 L 7.8 L Total Bilirubin 0.3 0.3 AST 17 17 ALT 19 20 Alkaline Phosphatase 148 H 151 H Total Protein 4.7 L 4.8 L Albumin 1.0 L 1.0 L Imaging: ITS Impressions Tibia/Fibula X-Ray 09/27/17 00:00 CONCLUSION: No acute left leg abnormality is identified. Abdomen/Pelvis CT 09/27/17 08:10 CONCLUSION: 1. Mild hepatic steatosis. 2. Thickening of the colon secondary to lack of distention versus colitis. 3. Left lower lobe consolidation and/or atelectasis. There does appear to be a 1.4 cm cavitary area which makes consolidation likely. Head CT 09/27/17 08:10 CONCLUSION: No acute intracranial abnormality is seen. Chest CTA 09/27/17 08:22 CONCLUSION: 1. No pulmonary embolus. 2. Consolidation or atelectasis at the left lower lobe. Venous Doppler Study 09/29/17 00:00 CONCLUSION: No evidence of deep venous thrombosis. Knee CT 10/18/17 00:00 CONCLUSION: 1. Small joint effusion. 2. Nonspecific subcutaneous edema in the subcutaneous soft tissues above and below the knee. 3. No significant changes compared to the prior exam. Ankle X-Ray 10/19/17 00:00 CONCLUSION: 1. No acute fracture or dislocation. Knee X-Ray 10/19/17 00:00 CONCLUSION: 1. Total knee prosthesis in place. 2. Moderate-sized knee joint effusion. Chest X-Ray 11/04/17 00:00 CONCLUSION: Atelectasis at the lung bases. Otherwise, no acute finding is identified. Physical Exam: GENERAL: Alert and oriented, no acute distress. HEENT: Pupils reactive to light. Extraocular movements intact. No icterus. NECK: Supple without adenopathy. No swelling. LUNGS: Decreased breath sounds. HEART: Regular S1 and S2 without murmurs or rubs or gallops. ABDOMEN: Obese, soft. Nontender. Groin and abdominal area with healthy granulation tissue, dressing with sanguinous discharge noted. EXTREMITIES: swelling of the left knee. less warmth. Tiny hole a couple millimeters at the lower aspect of the knee surgical incision. Purulent drainage on noted 10/19. SKIN: No diffuse rash. NEUROLOGIC: Awake and alert and oriented. Nonfocal. PSYCH: Pleasant, calm and cooperative. Assessment and Plan - Plan IMPRESSION: Neutropenic sepsis WBC now elevated. Receive Neupogen but the white blood cell count did not plateau is continuing to rise. Possibly secondary to infection. Leucopenia, pancytopenia: ? MTX, ? Psych meds, ? Sepsis contributing. Abdominal fold cellulitis/skin breakdown. Post incision and debridement and closure of skin fold. General surgery following. She dispose any panniculectomy. Groin cellulitis, Mons pubis cellulitis/skin breakdown. Neurosurgery following. H/o fall with scraping of left knee. Left knee hardware in place. CT with fluid collection. Left knee infection - prior wound culture had Pseudomonas and group B beta strep. VRE now. Diarrhea - Positive C. difficile. RECOMMENDATIONS: Continue Cefepime IV for the left knee infection and abdominal wound infection. Continue Dapto IV for Grp D Enterococcus pending ID will follow cultures to deescalate. Continue Vancomycin for C. difficile treat until completion of cefepime. ebony RN: he informs me patient went to IR and PEG tube could not be placed. Asked him to inform primary team to consider getting GI consult.
[2017-11-06 06:47] LABS: Baso # (Auto) 0.1 th/mm3 (0.0-0.2); Baso % (Auto) 0.4 % (0.0-2.0); Eos # (Auto) 0.4 th/mm3 (0.0-0.4); Hematocrit 28.8 % (35.0-46.0); Hemoglobin 9.4 gm/dL (11.6-15.3); Lymph # (Auto) 1.3 th/mm3 (1.0-4.8); Lymph % (Auto) 8.7 % (9.0-44.0); Mean Corpuscular HGB Conc 32.8 % (32.0-36.0); Mean Corpuscular Hemoglobin 28.2 pg (27.0-34.0); Mean Platelet Volume 7.2 fL (7.0-11.0); Mono % (Auto) 6.8 % (0.0-8.0); Neut # (Auto) 11.9 th/mm3 (1.8-7.7); Neut % (Auto) 81.1 % (16.0-70.0); Platelet Count 170 th/mm3 (150-450); Red Blood Count 3.35 mil/mm3 (4.00-5.30); Red Cell Distribution Width 16.6 % (11.6-17.2); White Blood Count 14.7 th/mm3 (4.0-11.0)
[2017-11-06] MEDS: Dextrose 5%/NaCl 0.45% Inj 1,000 ML IV.CONT SCH ×3 (06:53→18:18)
[2017-11-06 07:08] LABS: Alanine Aminotransferase 18 U/L (10-53); Albumin 0.9 g/dL (3.4-5.0); Anion Gap 8 meq/L (5-15); Aspartate Aminotransferase 16 U/L (15-37); Blood Urea Nitrogen 10 mg/dL (7-18); Calcium 7.8 mg/dL (8.5-10.1); Chloride 114 meq/L (98-107); Glomerular Filtration Rate Greater Than 89 mL/min (>89); Glucose,Random 92 mg/dL (74-106); Potassium 3.9 meq/L (3.5-5.1); Sodium 142 meq/L (136-145)
[2017-11-06 07:11] LABS: Alkaline Phosphatase 177 U/L (45-117); Total Protein 4.6 g/dL (6.4-8.2)
[2017-11-06 07:13] LABS: Creatine Kinase 15 U/L (26-192)
--- NOTE | 2017-11-06 08:08 | P.PNFP ---
Subjective Interval history: Patient seen and examined this morning. No acute events overnight per nursing staff. Patient with continued disorientation, however mood appears to be improved today. Patient repeatedly states that she would "like to catch a ride home" and "missed her ride last night." We briefly discussed her current condition and continued need of hospitalization. Yesterday patient was scheduled for possible IR placement of PEG tube, however unable to be performed secondary to her gastric sleeve. Briefly discussed with general surgery for possible J tube for enteral feeding as patient's nutritional status continues to be decreased likely affecting her wound healing. Currently she has no complaints, however is unable to complete a thorough review of systems due to her disorientation. She does state that she is not in pain at this time. <Chaz Vivar - 11/06/17 09:31> Results - Labs Result diagrams: 11/06/17 06:10 11/06/17 06:10 <John Joseph - 11/06/17 10:33> Abnormal lab results 11/06/17 11/06/17 Range/Units 06:10 06:10 WBC 14.7 H (4.0-11.0) th/mm3 RBC 3.35 L (4.00-5.30) mil/mm3 Hgb 9.4 L (11.6-15.3) gm/dL Hct 28.8 L (35.0-46.0) % Neut % (Auto) 81.1 H (16.0-70.0) % Lymph % (Auto) 8.7 L (9.0-44.0) % Neut # (Auto) 11.9 H (1.8-7.7) th/mm3 Wilson # (Auto) 1.0 H (0.0-0.9) th/mm3 Chloride 114 H (98-107) meq/L Carbon Dioxide 20.0 L (21.0-32.0) meq/L Calcium 7.8 L (8.5-10.1) mg/dL Alkaline Phosphatase 177 H (45-117) U/L Total Creatine Kinase 15 L (26-192) U/L Total Protein 4.6 L (6.4-8.2) g/dL Albumin 0.9 L (3.4-5.0) g/dL Short CBC 11/06/17 Range/Units 06:10 WBC 14.7 H (4.0-11.0) th/mm3 Hgb 9.4 L (11.6-15.3) gm/dL Hct 28.8 L (35.0-46.0) % Plt Count 170 (150-450) th/mm3 BMP 11/06/17 06:10 Sodium 142 Potassium 3.9 Chloride 114 H Carbon Dioxide 20.0 L BUN 10 Creatinine 0.75 Calcium 7.8 L Cardiac Enzymes 11/06/17 Range/Units 06:10 Total Creatine Kinase 15 L (26-192) U/L Liver Function 11/06/17 Range/Units 06:10 Total Bilirubin 0.4 (0.2-1.0) mg/dL AST 16 (15-37) U/L ALT 18 (10-53) U/L Alkaline Phosphatase 177 H (45-117) U/L Albumin 0.9 L (3.4-5.0) g/dL <John Joseph - 11/06/17 10:33> Abnormal lab results 11/06/17 11/06/17 Range/Units 06:10 06:10 WBC 14.7 H (4.0-11.0) th/mm3 RBC 3.35 L (4.00-5.30) mil/mm3 Hgb 9.4 L (11.6-15.3) gm/dL Hct 28.8 L (35.0-46.0) % Neut % (Auto) 81.1 H (16.0-70.0) % Lymph % (Auto) 8.7 L (9.0-44.0) % Neut # (Auto) 11.9 H (1.8-7.7) th/mm3 Wilson # (Auto) 1.0 H (0.0-0.9) th/mm3 Chloride 114 H (98-107) meq/L Carbon Dioxide 20.0 L (21.0-32.0) meq/L Calcium 7.8 L (8.5-10.1) mg/dL Alkaline Phosphatase 177 H (45-117) U/L Total Creatine Kinase 15 L (26-192) U/L Total Protein 4.6 L (6.4-8.2) g/dL Albumin 0.9 L (3.4-5.0) g/dL Short CBC 11/06/17 Range/Units 06:10 WBC 14.7 H (4.0-11.0) th/mm3 Hgb 9.4 L (11.6-15.3) gm/dL Hct 28.8 L (35.0-46.0) % Plt Count 170 (150-450) th/mm3 BMP 11/06/17 06:10 Sodium 142 Potassium 3.9 Chloride 114 H Carbon Dioxide 20.0 L BUN 10 Creatinine 0.75 Calcium 7.8 L Cardiac Enzymes 11/06/17 Range/Units 06:10 Total Creatine Kinase 15 L (26-192) U/L Liver Function 11/06/17 Range/Units 06:10 Total Bilirubin 0.4 (0.2-1.0) mg/dL AST 16 (15-37) U/L ALT 18 (10-53) U/L Alkaline Phosphatase 177 H (45-117) U/L Albumin 0.9 L (3.4-5.0) g/dL <Chaz Vivar H - 11/06/17 08:08> Physical Exam Vital signs: Vital Signs 11/05/17 11:03 11/05/17 12:00 11/05/17 15:58 Temperature 97 F L Pulse Rate 126 H 119 H Respiratory Rate 12 16 16 Blood Pressure 128/77 Pulse Oximetry 99 11/05/17 20:00 11/06/17 00:00 11/06/17 04:00 Temperature 98.3 F 98.1 F 97.9 F Pulse Rate 111 H 98 H 120 H Respiratory Rate 18 18 14 Blood Pressure 126/66 127/68 154/91 H Pulse Oximetry 98 97 99 11/06/17 08:00 Temperature 97.7 F Pulse Rate 121 H Respiratory Rate 16 Blood Pressure 127/85 Pulse Oximetry 99 Intake & Output 11/05/17 11/06/17 11/06/17 18:59 06:59 18:59 Intake Total 3220 / 3220 3610.2 / 3610.2 Output Total 1200 / 1200 Balance 2019 3610.2 / 3610.2 Intake: IV 1300 / 1300 3610.2 / 3610.2 D5W/1/2 NS Inj 1,000 ML @ 140 1000 / 1000 2000 / 2000 mls/hr IV.CONT .Q7H9M [facility] Rx#: [id number] Maxipime Inj 2,000 MG In NS Inj 200 / 200 100 / 100 100 ML @ 200 mls/hr IV.SIG Q8H [facility] Rx#:[id number] Cubicin Inj 800 MG In NS Inj 100 / 100 100 ML @ 200 mls/hr IV.SIG Q24H [facility] Rx#:[id number] MVI-12 Inj 10 ML Folvite Inj 1 510.2 / 510.2 MG In NS Inj 500 ML @ 125 mls/ hr IV.SIG DAILY [facility] Rx#: [id number] Oral 720 / 720 Other 1200 / 1200 Output: Urine 900 / 900 Stool 300 / 300 Other: Other Intake Source Saline Solution Date of Last Bowel Movement 11/05/17 11/06/17 <John Joseph - 11/06/17 10:33> Vital Signs 11/05/17 11:03 11/05/17 12:00 11/05/17 15:58 Temperature 97 F L Pulse Rate 126 H 119 H Respiratory Rate 12 16 16 Blood Pressure 128/77 Pulse Oximetry 99 11/05/17 20:00 11/06/17 00:00 11/06/17 04:00 Temperature 98.3 F 98.1 F 97.9 F Pulse Rate 111 H 98 H 120 H Respiratory Rate 18 18 14 Blood Pressure 126/66 127/68 154/91 H Pulse Oximetry 98 97 99 Intake & Output 11/05/17 11/06/17 11/06/17 18:59 06:59 18:59 Intake Total 3220 / 3220 3610.2 / 3610.2 Output Total 1200 / 1200 Balance 2020 / 2020 3610.2 / 3610.2 Intake: IV 1300 / 1300 3610.2 / 3610.2 D5W/1/2 NS Inj 1,000 ML @ 140 1000 / 1000 2000 / 2000 mls/hr IV.CONT .Q7H9M [facility] Rx#: [id number] Maxipime Inj 2,000 MG In NS Inj 200 / 200 100 / 100 100 ML @ 200 mls/hr IV.SIG Q8H [facility] Rx#:[id number] Cubicin Inj 800 MG In NS Inj 100 / 100 100 ML @ 200 mls/hr IV.SIG Q24H [facility] Rx#:[id number] MVI-12 Inj 10 ML Folvite Inj 1 510.2 / 510.2 MG In NS Inj 500 ML @ 125 mls/ hr IV.SIG DAILY [facility] Rx#: [id number] Oral 720 / 720 Other 1200 / 1200 Output: Urine 900 / 900 Stool 300 / 300 Other: Other Intake Source Saline Solution Date of Last Bowel Movement 11/05/17 11/06/17 <Chaz Vivar - 11/06/17 08:08> Narrative: GENERAL: Morbidly obese -[place] female lying in bed in no acute distress watching television. SKIN: Cool and dry. No rash. Lower abdominal and bilateral lower extremity wounds uncovered as she is currently undergoing dressing changes. No acute signs of purulent drainage or acute bleeding. Bedding overlying affected area is partly saturated. PICC line inserted in the right upper extremity without surrounding erythema, warmth, or other signs of infection. HEENT: Atraumatic, normocephalic with extraocular motions intact. No rhinorrhea. No visible lymphadenopathy or jugulovenous distension appreciated. CARDIOVASCULAR: Tachycardic rate (baseline) and regular rhythm without obvious murmurs, gallops, or rubs. RESPIRATORY: Clear to anterior auscultation bilaterally without obvious CRW which is improved from previous exam. Breath sounds difficult to auscultate due to body habitus. No increased work of breathing. GASTROINTESTINAL: Abdomen diffuse, soft with soft bowel sounds likely due to body habitus. Patient nontender in the upper 2 quadrants, deferred tenderness evaluation and lower quadrants due to wounds. No masses appreciated. Rectal tube in place with liquid fecal material in reservoir. Hopper catheter in place with minimal urinary output and reservoir. MUSCULOSKELETAL: No cyanosis. Stable bilateral lower extremities with 2+ pitting edema. No calf tenderness. Left knee effusion stable. SCDs in place. NEURO/PSYCH: Afocal. Patient awake and alert, however only oriented to PPT 2, baseline. Patient with with improved mood. Unable to complete review of systems but does state she is not in pain and has no complaints. <Chaz Vivar - 11/06/17 09:31> - Urinary Catheter Management Female External Cath placed during this visit: no <John Joseph 11/06/17 10:33> no <Chaz Vivar - 11/06/17 09:31> Indwelling Urethral Catheter Cath placed during this visit: no <John Joseph 11/06/17 10:33> yes, but has since been removed by the nurse <Chaz Vivar - 11/06/17 09:31> Reason for continuing: Severe pressure ulcer/wound <Chaz Vivar - 11/06/17 08:08> Insertion date: 09/27/17 <Chaz Vivar - 11/06/17 08:08> Insertion time: 08:20 <Chaz Vivar - 11/06/17 08:08> Removal date: 10/05/17 <Chaz Vivar - 11/06/17 08:08> Removal time: 17:30 <Chaz Vivar - 11/06/17 08:08> Assessment and Plan - Assessment (1) Open wound of abdominal wall Code(s): S31.109A - Unspecified open wound of abdominal wall, unspecified quadrant without penetration into peritoneal cavity, initial encounter Status : Acute (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 difficile diarrhea Code(s): A04.72 - Enterocolitis due to Clostridium difficile, not specified as recurrent Status: Acute (8) Fall Code(s): W19.XXXA - Unspecified fall, initial encounter Status: Acute (9) Hypertension Code(s): I10 - Essential (primary) hypertension Status: Acute (10) Schizophrenia Code(s): F20.9 - Schizophrenia, unspecified Status: Chronic (11) Tachycardia Code(s): R00.0 - Tachycardia, unspecified Status: Chronic (12) Nutrition, metabolism, and development symptoms Code(s): R63.8 - Other symptoms and signs concerning food and fluid intake Status: Acute <JakeJohn - 11/06/17 10:33> (1) Open wound of abdominal wall Code(s): S31.109A - Unspecified open wound of abdominal wall, unspecified quadrant without penetration into peritoneal cavity, initial encounter Status : Acute Plan: -Wound Culture 09/27/17: Pseudomonas and Group B Step -Blood Cultures 10/24/17: Negative -Tissue Cultures 10/09/17: Negative -Abdominal wound culture 11/01/17: Group D Enterococcus, sensitive to Daptomycin -Infectious disease consulted -Continue cefepime until 11/08/17 -Continue oral vancomycin for Clostridium difficile until cefepime is discontinued on 11/08/17 -Continue Daptomycin for VRE on ABD wound culture on 11/03/17; monitor CK levels -General surgery consulted -Surgical debridement 10/09, wound VAC applied. -VAC changed 10/12 removed 10/15. -Debridement, irrigation, with suturing performed on 10/16. 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 NGTD, cleared from ID standpoint to go rehab with IV Cefepime until 11/08/17 -Orthopedics ([place] for Dr. 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 She completed rehabilitation and was discharged home August 23. Patient was on approximately 2 weeks of po Keflex 500 mg. Per Ortho, examination of left knee shows no evidence of infection. (3) Cellulitis of knee, left Code(s): L03.116 - Cellulitis of left lower limb Status: Acute Plan: -ID consulted, recommend Cefepime until 11/08/17 -Orthopedic surgery consulted, no further recommendations at this time Medications: -Cefepime IV (09/29/17-11/08/17) per ID; PICC line placed for antibiotic administration at rehab once wounds are stable for DC -Patient received 2 weeks of Keflex 500mg PO by Orthopedic surgery as outpatient prior to admission -Levaquin stopped 10/20 per ID -Diflucan course completed 10/18 (4) Poor nutrition Code(s): E63.9 - Nutritional deficiency, unspecified Status: Acute Plan: -Patient with poor nutritional status during hospitalization -Severe concern of poor wound healing secondary to poor nutritional status -[employer] consulted for calorie count and nutritional guidance, which has been limited due to NPO status prior to surgery, however patient continues to have poor intake -Multivitamin IV added with Hermes supplementation BID -Albumin levels continued to be decreased -Patient unable to receive 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 Briefly discussed with surgery about the possibility of a JG tube versus surgical placement of PEG tube For the time being, patient to start TPN, dietary consulted for order assistance (5) Hypokalemia Code(s): E87.6 - Hypokalemia Status: Resolved Plan: -Patient with hypokalemia during hospitalization. Appears to be not tolerating ER capsules as they were found whole in her rectal tube reservoir. Medications: -Magnesium 64 mg daily -Potassium Chloride 40mEq BID (Non-ER/Enteric Coated) -Plan to treat as necessary (6) Anemia Code(s): D64.9 - Anemia, unspecified Status: Resolved Plan: -Patient found to have asymptomatic anemia H/H of 7/20.3 with MCV of 82 on -Patient has received multiple transfusions during hospitalization with hemoglobin ranging from 7.5 to 8.7 over the last week -Rectal tube and Hopper catheter without any signs of acute bleeding -Dressings without obvious signs of bleeding -Due to critical condition and severity of abdominal wounds with decreasing hemoglobin, 2 units PRBC ordered -Patient did receive Lasix between units to assist with possible fluid overload -Posttransfusion H/H 11.6/34.7 on 10/30/17 -Continue to monitor (7) C. difficile diarrhea Code(s): A04.72 - Enterocolitis due to Clostridium difficile, not specified as recurrent Status: Acute Plan: -C diff cultures positive 10/19/17 -Vancomycin PO 125 4 times daily until completion of Cefepime per ID -Continue with probiotics. -Rectal tube in place (8) Fall Code(s): W19.XXXA - Unspecified fall, initial encounter Status: Acute Plan: Patient with fall on 10/19/17. No loss of consciousness, no head injury, left knee and ankle pain. -Knee x-ray- Prosthesis in place, No abnormality appreciated -Ankle x-ray- No abnormality appreciated -Patient to continue with PT (9) Hypertension Code(s): I10 - Essential (primary) hypertension Status: Acute Plan: History of hypertension -Continue to monitor -Clonidine PRN for BP > 180/100 (10) Schizophrenia Code(s): F20.9 - Schizophrenia, unspecified Status: Chronic Plan: -Psychiatry consulted upon admission Medications: -Continue Abilify 30 mg for psychosis -Continue buspirone 30 mg, trazodone 100 mg and Cymbalta 60 mg -Hold anticholinergics per Psych (11) Tachycardia Code(s): R00.0 - Tachycardia, unspecified Status: Chronic Plan: -Patient with chronic history of tachycardia -EKG 09/27/17: Sinus tachycardia with rate of [address] or interval changes. (Per medical team read) Medications: -Continue home diltiazem and carvedilol (12) Nutrition, metabolism, and development symptoms Code(s): R63.8 - Other symptoms and signs concerning food and fluid intake Status: Acute Plan: Fluids: Changed to D5+1/2NS at maintenance rate (140 mL/h) as urinary output has decreased and patient with mild hypoglycemia on CMP Electrolytes: Replete as needed. Nutrition: Cardiac diet with Ensure, continue to monitor po intake, supplement with ensure. Encouraged patient that she needed to increase p.o. intake in order to heal -[employer] consulted for calorie count and nutritional guidance -Multivitamin IV added with Hermes supplementation BID -Dietary consulted for TPN orders DVT prophylaxis: SCDs, Defer medical prophylaxis due to anemia Continue to work with OT/PT to improve ambulation <Chaz Vivar H - 11/06/17 09:26> - Assessment and Plan . <Chaz Vivar - 11/06/17 09:31> - Attending Attestation Patient examined independently and case discussed with resident physician I have read the above note and agree with the assessment/plan as discussed with me I was involved in all medical decision making for this patient John Joseph MD <John Joseph - 11/06/17 10:33> <Chaz Vivar H - Last Filed: 11/06/17 09:26> (1) Open wound of abdominal wall Qualifiers: Encounter type: initial encounter Qualified Code(s): S31.109A - Unspecified open wound of abdominal wall, unspecified quadrant without penetration into peritoneal cavity, initial encounter (6) Anemia Qualifiers: Anemia type: unspecified type Qualified Code(s): D64.9 - Anemia, unspecified (9) Hypertension Qualifiers: Hypertension type: essential hypertension Qualified Code(s): I10 - Essential (primary) hypertension <John Joseph - Last Filed: 11/06/17 10:33> (1) Open wound of abdominal wall Qualifiers: Encounter type: initial encounter Qualified Code(s): S31.109A - Unspecified open wound of abdominal wall, unspecified quadrant without penetration into peritoneal cavity, initial encounter (6) Anemia Qualifiers: Anemia type: unspecified type Qualified Code(s): D64.9 - Anemia, unspecified (9) Hypertension Qualifiers: Hypertension type: essential hypertension Qualified Code(s): I10 - Essential (primary) hypertension <Chaz Vivar H - Last Filed: 11/06/17 09:26> (1) Open wound of abdominal wall Qualifiers: Encounter type: initial encounter Qualified Code(s): S31.109A - Unspecified open wound of abdominal wall, unspecified quadrant without penetration into peritoneal cavity, initial encounter (6) Anemia Qualifiers: Anemia type: unspecified type Qualified Code(s): D64.9 - Anemia, unspecified (9) Hypertension Qualifiers: Hypertension type: essential hypertension Qualified Code(s): I10 - Essential (primary) hypertension <John Joseph - Last Filed: 11/06/17 10:33> (1) Open wound of abdominal wall Qualifiers: Encounter type: initial encounter Qualified Code(s): S31.109A - Unspecified open wound of abdominal wall, unspecified quadrant without penetration into peritoneal cavity, initial encounter (6) Anemia Qualifiers: Anemia type: unspecified type Qualified Code(s): D64.9 - Anemia, unspecified (9) Hypertension Qualifiers: Hypertension type: essential hypertension Qualified Code(s): I10 - Essential (primary) hypertension
[2017-11-06] MEDS: Folic Acid 1 MG Tablet PO SCH (08:31)
[2017-11-06] MEDS: Metoprolol Tartrate 25 MG Tablet PO SCH ×2 (08:32→23:09)
[2017-11-06] MEDS: traZODone 100 MG Tablet PO SCH (08:32)
[2017-11-06] MEDS: Pantoprazole Sodium 20 MG DR Tablet PO SCH (08:32)
[2017-11-06] MEDS: Duloxetine 60 MG DR Capsule PO SCH (08:32)
[2017-11-06] MEDS: Lactobacillus Acidophilus/L. Spores Tablet PO SCH ×2 (08:32→23:09)
[2017-11-06] MEDS: dilTIAZem 60 MG Tablet PO SCH ×3 (08:33→18:15)
[2017-11-06] MEDS: Heparin Central Flush 100 UNIT/ML 5 ML Vial IV.FLUSH SCH (08:33)
[2017-11-06] MEDS: Multivitamin Inj 10 ML, Folic Acid Inj 1 MG in Sodium Chlor 0.9% Inj 500 ML IV.SIG SCH (09:01)
--- NOTE | 2017-11-06 11:16 | P.PNID ---
Subjective Remarks: ID coverage. Follow up. 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 Post op it appears she was discharged to a rehab. She was discharged from the rehab to home with her on August 23. Patient reports she lives at home with her who is on disability. Unsure of nature of disability at this time and his ability to take care of her. She was reportedly able to ambulate on her own initially followed by weakness and need for walker and then to a point where she did not want to get out of bed. It has been reported to others that she had some discharge at the left surgical site area and ortho surgeon prescribed oral keflex which reportedly lead to some improvement. She reportedly completed a week of antibiotic treatment with last day scheduled for today with some improvement in her knee pain. However her stated that she was starting to have more drainage from her knee just over the past day or so. He had pointed to several areas that had been draining pus from just above and just below the knee. He stated that a cup full of pus would drain at a time. Additionally the abdominal fold wounds appear to have been present for atleast 3 weeks now. With this background patient presented to the ED with complaints of worsening shortness of breath and mental status accompanied with symptoms of diarrhea (3 days, non-bloody) and decreased p.o. intake (5 days). She was also brought into the hospital due to infection of her knee that improved with Keflex p.o but now has returned with new additional drainage over the past few days. ID consulted for evaluation and Mment of Left knee prosthetic joint infection and neutropenia. Patient underwent incision and debridement of the inferior abdominal wall and proximal inner thighs on 10/12/2017. Receiving IV antibiotics for left knee infection/C difficile. CT scan showed small joint effusion and subcutaneous edema of the fat at the left knee. Overnight events reviewed. ebony RN Patient is awake, alert and communicative. Denies nausea vomiting. Denies chills. No fever. Antibiotics: Cefepime IV Dapto IV Vancomycin PO. Lines: Lines ok. Allergies/Adverse Reactions: Allergies amoxicillin Allergy (Verified 09/27/17 17:54) Swelling Objective Vital Signs 11/05/17 12:00 11/05/17 15:58 11/05/17 20:00 Temperature 97 F L 98.3 F Pulse Rate 119 H 111 H Respiratory Rate 16 16 18 Blood Pressure 128/77 126/66 Pulse Oximetry 99 98 11/06/17 00:00 11/06/17 04:00 11/06/17 08:00 Temperature 98.1 F 97.9 F 97.7 F Pulse Rate 98 H 120 H 121 H Respiratory Rate 18 14 16 Blood Pressure 127/68 154/91 H 127/85 Pulse Oximetry 97 99 99 Intake & Output 11/05/17 11/06/17 11/06/17 18:59 06:59 18:59 Intake Total 3220 / 3220 3610.2 / 3610.2 Output Total 1200 / 1200 Balance 2019 / 2019 3610.2 / 3610.2 Intake: IV 1300 / 1300 3610.2 / 3610.2 D5W/1/2 NS Inj 1,000 ML @ 140 1000 / 1000 2000 / 2000 mls/hr IV.CONT .Q7H9M [facility] Rx#: [id number] Maxipime Inj 2,000 MG In NS Inj 200 / 200 100 / 100 100 ML @ 200 mls/hr IV.SIG Q8H [facility] Rx#:[id number] Cubicin Inj 800 MG In NS Inj 100 / 100 100 ML @ 200 mls/hr IV.SIG Q24H [facility] Rx#:[id number] MVI-12 Inj 10 ML Folvite Inj 1 510.2 / 510.2 MG In NS Inj 500 ML @ 125 mls/ hr IV.SIG DAILY [facility] Rx#: [id number] Oral 720 / 720 Other 1200 / 1200 Output: Urine 900 / 900 Stool 300 / 300 Other: Other Intake Source Saline Solution Date of Last Bowel Movement 11/05/17 11/06/17 11/01/17 17:45 Wound - Abdominal Gram Stain - Final 11/01/17 17:45 Wound - Abdominal Wound Culture - Final Enterococcus faecium VRE Lab - Hematology Results 11/05/17 11/06/17 05:00 06:10 WBC 13.7 H 14.7 H RBC 3.27 L 3.35 L Hgb 9.4 L 9.4 L Hct 27.8 L 28.8 L MCV 85.1 86.0 MCH 28.7 28.2 MCHC 33.7 32.8 RDW 17.0 16.6 Plt Count 184 170 MPV 6.6 L 7.2 Neut % (Auto) 76.6 H 81.1 H Lymph % (Auto) 11.5 8.7 L [place] % (Auto) 8.6 H 6.8 Eos % (Auto) 2.9 3.0 Baso % (Auto) 0.4 0.4 Neut # (Auto) 10.5 H 11.9 H Lymph # (Auto) 1.6 1.3 [place] # (Auto) 1.2 H 1.0 H Eos # (Auto) 0.4 0.4 Baso # (Auto) 0.1 0.1 WBC Differential . . Differential Comment Auto diff final Auto diff final Lab - Chemistry Results 11/05/17 11/06/17 05:00 06:10 Sodium 142 142 Potassium 4.0 3.9 Chloride 115 H 114 H Carbon Dioxide 21.1 20.0 L Anion Gap 6 8 BUN 11 10 Creatinine 0.80 0.75 Estimated GFR Greater than 89 Greater than 89 Random Glucose 94 92 Calcium 7.8 L 7.8 L Total Bilirubin 0.3 0.4 AST 17 16 ALT 20 18 Alkaline Phosphatase 151 H 177 H Total Creatine Kinase 15 L Total Protein 4.8 L 4.6 L Albumin 1.0 L 0.9 L Imaging: ITS Impressions Tibia/Fibula X-Ray 09/27/17 00:00 CONCLUSION: No acute left leg abnormality is identified. Abdomen/Pelvis CT 09/27/17 08:10 CONCLUSION: 1. Mild hepatic steatosis. 2. Thickening of the colon secondary to lack of distention versus colitis. 3. Left lower lobe consolidation and/or atelectasis. There does appear to be a 1.4 cm cavitary area which makes consolidation likely. Head CT 09/27/17 08:10 CONCLUSION: No acute intracranial abnormality is seen. Chest CTA 09/27/17 08:22 CONCLUSION: 1. No pulmonary embolus. 2. Consolidation or atelectasis at the left lower lobe. Venous Doppler Study 09/29/17 00:00 CONCLUSION: No evidence of deep venous thrombosis. Knee CT 10/18/17 00:00 CONCLUSION: 1. Small joint effusion. 2. Nonspecific subcutaneous edema in the subcutaneous soft tissues above and below the knee. 3. No significant changes compared to the prior exam. Ankle X-Ray 10/19/17 00:00 CONCLUSION: 1. No acute fracture or dislocation. Knee X-Ray 10/19/17 00:00 CONCLUSION: 1. Total knee prosthesis in place. 2. Moderate-sized knee joint effusion. Chest X-Ray 11/04/17 00:00 CONCLUSION: Atelectasis at the lung bases. Otherwise, no acute finding is identified. Physical Exam: GENERAL: Alert and oriented, no acute distress. HEENT: Pupils reactive to light. Extraocular movements intact. No icterus. NECK: Supple without adenopathy. No swelling. LUNGS: Decreased breath sounds. HEART: Regular S1 and S2 without murmurs or rubs or gallops. ABDOMEN: Obese, soft. Nontender. Groin and abdominal area with healthy granulation tissue, dressing with sanguinous discharge noted. EXTREMITIES: swelling of the left knee. less warmth. Tiny hole a couple millimeters at the lower aspect of the knee surgical incision. Purulent drainage on noted 10/19. SKIN: No diffuse rash. NEUROLOGIC: Awake and alert and oriented. Nonfocal. PSYCH: Pleasant, calm and cooperative. Assessment and Plan - Plan IMPRESSION: Neutropenic sepsis WBC now elevated. Receive Neupogen but the white blood cell count did not plateau is continuing to rise. Possibly secondary to infection. Leucopenia, pancytopenia: ? MTX, ? Psych meds, ? Sepsis contributing. Abdominal fold cellulitis/skin breakdown. Post incision and debridement and closure of skin fold. General surgery following. She dispose any panniculectomy. Groin cellulitis, Mons pubis cellulitis/skin breakdown. Neurosurgery following. H/o fall with scraping of left knee. Left knee hardware in place. CT with fluid collection. Left knee infection - prior wound culture had Pseudomonas and group B beta strep. VRE now. Diarrhea - Positive C. difficile. RECOMMENDATIONS: Continue Cefepime IV for the left knee infection and abdominal wound infection. Continue Dapto IV for Grp D Enterococcus pending ID will follow cultures to deescalate. Continue Vancomycin for C. difficile treat until completion of cefepime. Will follow prn.
--- NOTE | 2017-11-06 12:17 | P.DIET ---
Nutritional Evaluation Type of nutrition evaluation: follow-up Nutrition screening: [facility] [place] (10/31 Calorie counting. 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 Objective - Diagnosis Sepsis, Anemia, Neutropenia - Objective % IBW: 241 (IBW = 98#) Body Weight Used for Calculations: Upper end of IBW (49 kg) Energy Needs - Lower Range (kCal/kg): 30 Energy Needs - Upper Range (kCal/kg): 35 Lower Limit kCal/kg (kCals): 1,470 Upper Limit kCal/kg (kCals): 1,715 Lower Limit Protein Factor (Grams per Kg): 1.0 Upper Limit Protein Factor (Grams per Kg): 1.5 Lower Protein Needs (Protein): 49 Upper Protein Needs (Protein): 74 Fluid Factor (ml/kg): 35 Estimated Fluid Needs (ml): 1,715 Dietitian Reviewed in Medical Record: Current diet, Curent medications, Intake & Output, Labs, Medical history, Wound/DTI Diet Order: Heart Healthy, Ensure tid Wound Care Note: Per Wound Management Note: R and L perineal area- stage 3 Pt also has an open abdominal wound Objective Comments: -Surgical debridement 10/09, wound VAC applied. -VAC changed 10/12 removed 10/15. -Debridement, irrigation, with suturing performed on 10/16. -I&D of abdomen and bilateral thighs, placement of Amniox with wound closure on 11/01/17 Feeding - Current PO Supplement Current Supplement: Ensure Original Current Frequency of Supplement: Three times a day Current kCals Provided by Supplement: 250 (per 8 oz) Current Protein Provided by Supplement: 9 (per 8 oz) Assessment Assessment: Pt remains at high nutrition risk 2' to dx and presence of wounds. Poor po intake has been reported. Calorie counts have been initiated, but not enough info was recorded for RD to assess. One meal was recorded and indicates an intake of ~480 kcals and 31 gms protien in that one meal. If this is coonsistent with usual intake, it would mean the pt is able to meet nutritional needs with po intake alone. For now, recommend the addition of daily MVI/min and Hermes supplement, a therapeutic nutritional supplement that may aid in healing. Weight review indicates very erratic weights have been recorded. If TF is decided upon, recommend Vital 1.5 @ 50 mls/hr to provide 1800 kcals, 81 gms protein and 917 mls of free water. To meet needs with TPN, recommend Clinimix E 5/20 @ 65 mls/hr to provide 1320 kcals and 75 gms protein. Lipids 20% 250 mls can be given 2x/week for an additional 500 kcals on those days. Please note that prealb/albumin are no longer considered indicators for malnutrition. Recommendations: 1. Continue current diet and Ensure. 2. Please order Hermes bid and MVI/min q day 3. Would recommend hold off on PEG placement and continue to monitor po intake. 4. If TF is decided upon: Vital 1.5 @ 50 mls/hr goal 5. For TPN/lipids: Clinimix E 5/20 @ 65 mls/hr with 20% lipids 250 mls 2x/week Dietitian to Monitor: Lab values, Supplement acceptance, Intake & Output, Diet tolerance, Weight change, PO Intake, Wound/skin status, Medical course Comments: Initiation of nutrition support
[2017-11-06] MEDS: DAPTOmycin Inj 800 MG in Sodium Chlor 0.9% Inj 100 ML IV.SIG SCH (14:32)
[2017-11-06] MEDS: Morphine Sulfate Inj 2 MG/ML Vial IV.PUSH PRN (18:15)
--- NOTE | 2017-11-06 21:40 | P.PNGS ---
Subjective Patient reports: no new complaints (remains pleasently confused ) Physical Exam Vital signs: Vital Signs 11/06/17 00:00 11/06/17 04:00 11/06/17 08:00 Temperature 98.1 F 97.9 F 97.7 F Pulse Rate 98 H 120 H 121 H Respiratory Rate 18 14 16 Blood Pressure 127/68 154/91 H 127/85 Pulse Oximetry 97 99 99 11/06/17 12:00 11/06/17 12:19 11/06/17 16:00 Temperature 98.2 F 97.4 F L Pulse Rate 113 H 107 H 116 H Respiratory Rate 18 18 Blood Pressure 137/82 136/65 Pulse Oximetry 99 100 Intake & Output 11/06/17 11/06/17 11/07/17 06:59 18:59 06:59 Intake Total 3610.2 / 3610.2 4020 / 4020 Output Total 3800 / 3800 Balance 3610.2 / 3610.2 220 / 220 Intake: IV 3610.2 / 3610.2 2100 / 2100 D5W/1/2 NS Inj 1,000 ML @ 140 2000 / 2000 2000 / 2000 mls/hr IV.CONT .Q7H9M [facility] Rx#: [id number] Maxipime Inj 2,000 MG In NS Inj 100 / 100 100 / 100 100 ML @ 200 mls/hr IV.SIG Q8H [facility] Rx#:[id number] MVI-12 Inj 10 ML Folvite Inj 1 510.2 / 510.2 MG In NS Inj 500 ML @ 125 mls/ hr IV.SIG DAILY [facility] Rx#: [id number] Oral 720 / 720 Other 1200 / 1200 Output: Urine 3500 / 3500 Stool 300 / 300 Wound Drainage 0 / 0 ZAMZAM Drain 0 / 0 Other: Other Intake Source Saline Solution Date of Last Bowel Movement 11/06/17 11/06/17 # Incontinent Bowel Movements 1 - Routine Abdominal Exam Present: soft (incisions with dressing, thigh with dressing scant drainage) - Urinary Catheter Management Female External Cath placed during this visit: no Indwelling Urethral Catheter Cath placed during this visit: yes, but has since been removed by the nurse Reason for continuing: Severe pressure ulcer/wound Insertion date: 09/27/17 Insertion time: 08:20 Removal date: 10/05/17 Removal time: 17:30 Assessment and Plan - Plan s/p I and D with closure dressing changes keep incisions dry, continue wound care tx for c diff keep wounds clear of stool g tube planning today via IR- unable to be placed agree with tpn will consider operative j tube when albumin improved
[2017-11-07] MEDS: Dextrose 5%/NaCl 0.45% Inj 1,000 ML IV.CONT SCH ×4 (03:38→23:35)
[2017-11-07 08:04] LABS: Baso # (Auto) 0.1 th/mm3 (0.0-0.2); Baso % (Auto) 0.4 % (0.0-2.0); Eos # (Auto) 0.3 th/mm3 (0.0-0.4); Eos % (Auto) 2.3 % (0.0-4.0); Hematocrit 27.8 % (35.0-46.0); Hemoglobin 9.4 gm/dL (11.6-15.3); Lymph # (Auto) 1.3 th/mm3 (1.0-4.8); Lymph % (Auto) 9.1 % (9.0-44.0); Mean Corpuscular Hemoglobin 28.8 pg (27.0-34.0); Mean Corpuscular Volume 84.7 fL (80.0-100.0); Mean Platelet Volume 7.5 fL (7.0-11.0); Mono # (Auto) 0.9 th/mm3 (0.0-0.9); Mono % (Auto) 6.4 % (0.0-8.0); Neut # (Auto) 11.9 th/mm3 (1.8-7.7); Neut % (Auto) 81.8 % (16.0-70.0); Platelet Count 155 th/mm3 (150-450); Red Blood Count 3.28 mil/mm3 (4.00-5.30); Red Cell Distribution Width 16.6 % (11.6-17.2); White Blood Count 14.6 th/mm3 (4.0-11.0)
[2017-11-07 08:19] LABS: Albumin 0.9 g/dL (3.4-5.0); Anion Gap 10 meq/L (5-15); Aspartate Aminotransferase 16 U/L (15-37); Blood Urea Nitrogen 10 mg/dL (7-18); Calcium 7.7 mg/dL (8.5-10.1); Carbon Dioxide 18.4 meq/L (21.0-32.0); Chloride 114 meq/L (98-107); Glomerular Filtration Rate Greater Than 89 mL/min (>89); Glucose,Random 107 mg/dL (74-106); Potassium 3.4 meq/L (3.5-5.1); Sodium 142 meq/L (136-145)
[2017-11-07 08:20] LABS: Alanine Aminotransferase 18 U/L (10-53)
[2017-11-07 08:22] LABS: Alkaline Phosphatase 145 U/L (45-117); Total Protein 4.5 g/dL (6.4-8.2)
--- NOTE | 2017-11-07 09:04 | P.PNFP ---
Subjective Interval history: Patient seen and examined this morning. No acute events overnight per nursing staff. Patient appears more fatigued today, but currently has no complaints. She is oriented PPT 2 which is her baseline with a flattened affect. Briefly discussed her nutrition as we are starting TPN feeding. Patient reports she has been eating well, per staff report patient only picks at her food and eats approximately 50% of her tray. She is not able to complete a review of systems due to her orientation and fatigue at this time. <Chaz Vivar H - 11/07/17 09:19> Results - Labs Result diagrams: 11/07/17 10:28 11/07/17 07:20 <John Joseph - 11/07/17 13:20> Abnormal lab results 11/07/17 11/07/17 11/07/17 Range/Units 07:20 07:20 10:28 WBC 14.6 H 14.5 H (4.0-11.0) th/mm3 RBC 3.28 L 3.62 L (4.00-5.30) mil/mm3 Hgb 9.4 L 10.2 L (11.6-15.3) gm/dL Hct 27.8 L 31.6 L (35.0-46.0) % Neut % (Auto) 81.8 H 81.9 H (16.0-70.0) % Neut # (Auto) 11.9 H 11.9 H (1.8-7.7) th/mm3 Potassium 3.4 L (3.5-5.1) meq/L Chloride 114 H (98-107) meq/L Carbon Dioxide 18.4 L (21.0-32.0) meq/L Random Glucose 107 H (74-106) mg/dL Calcium 7.7 L (8.5-10.1) mg/dL Alkaline Phosphatase 145 H (45-117) U/L Total Protein 4.5 L (6.4-8.2) g/dL Albumin 0.9 L (3.4-5.0) g/dL Short CBC 11/07/17 11/07/17 Range/Units 07:20 10:28 WBC 14.6 H 14.5 H (4.0-11.0) th/mm3 Hgb 9.4 L 10.2 L (11.6-15.3) gm/dL Hct 27.8 L 31.6 L (35.0-46.0) % Plt Count 155 173 (150-450) th/mm3 [facility] 11/07/17 07:20 Sodium 142 Potassium 3.4 L Chloride 114 H Carbon Dioxide 18.4 L BUN 10 Creatinine 0.71 Calcium 7.7 L Liver Function 11/07/17 Range/Units 07:20 Total Bilirubin 0.3 (0.2-1.0) mg/dL AST 16 (15-37) U/L ALT 18 (10-53) U/L Alkaline Phosphatase 145 H (45-117) U/L Albumin 0.9 L (3.4-5.0) g/dL <John Joseph - 11/07/17 13:20> Abnormal lab results 11/07/17 11/07/17 Range/Units 07:20 07:20 WBC 14.6 H (4.0-11.0) th/mm3 RBC 3.28 L (4.00-5.30) mil/mm3 Hgb 9.4 L (11.6-15.3) gm/dL Hct 27.8 L (35.0-46.0) % Neut % (Auto) 81.8 H (16.0-70.0) % Neut # (Auto) 11.9 H (1.8-7.7) th/mm3 Potassium 3.4 L (3.5-5.1) meq/L Chloride 114 H (98-107) meq/L Carbon Dioxide 18.4 L (21.0-32.0) meq/L Random Glucose 107 H (74-106) mg/dL Calcium 7.7 L (8.5-10.1) mg/dL Alkaline Phosphatase 145 H (45-117) U/L Total Protein 4.5 L (6.4-8.2) g/dL Albumin 0.9 L (3.4-5.0) g/dL Short CBC 11/07/17 Range/Units 07:20 WBC 14.6 H (4.0-11.0) th/mm3 Hgb 9.4 L (11.6-15.3) gm/dL Hct 27.8 L (35.0-46.0) % Plt Count 155 (150-450) th/mm3 [facility] 11/07/17 07:20 Sodium 142 Potassium 3.4 L Chloride 114 H Carbon Dioxide 18.4 L BUN 10 Creatinine 0.71 Calcium 7.7 L Liver Function 11/07/17 Range/Units 07:20 Total Bilirubin 0.3 (0.2-1.0) mg/dL AST 16 (15-37) U/L ALT 18 (10-53) U/L Alkaline Phosphatase 145 H (45-117) U/L Albumin 0.9 L (3.4-5.0) g/dL <Chaz Vivar H - 11/07/17 09:04> Physical Exam Vital signs: Vital Signs 11/06/17 16:00 11/06/17 20:00 11/07/17 00:00 Temperature 97.4 F L 98.2 F 97.8 F Pulse Rate 116 H 81 92 H Respiratory Rate 18 12 18 Blood Pressure 136/65 137/92 H 163/93 H Pulse Oximetry 100 98 98 11/07/17 04:00 11/07/17 08:00 11/07/17 12:00 Temperature 98 F 97.4 F L 97.5 F L Pulse Rate 94 H 115 H 111 H Respiratory Rate 18 18 18 Blood Pressure 150/94 H 136/79 137/83 Pulse Oximetry 99 100 97 Intake & Output 11/06/17 11/07/17 11/07/17 18:59 06:59 18:59 Intake Total 4120 / 4120 1810.2 / 1810.2 Output Total 3800 / 3800 900 / 900 Balance 320 / 320 910.2 / 910.2 Weight 106.5 kg Intake: IV 2200 / 2200 1810.2 / 1810.2 D5W/1/2 NS Inj 1,000 ML @ 140 2000 / 2000 1000 / 1000 mls/hr IV.CONT .Q7H9M [facility] Rx#: [id number] Maxipime Inj 2,000 MG In NS Inj 200 / 200 200 / 200 100 ML @ 200 mls/hr IV.SIG Q8H [facility] Rx#:[id number] Cubicin Inj 800 MG In NS Inj 100 / 100 100 ML @ 200 mls/hr IV.SIG Q24H [facility] Rx#:[id number] MVI-12 Inj 10 ML Folvite Inj 1 510.2 / 510.2 MG In NS Inj 500 ML @ 125 mls/ hr IV.SIG DAILY [facility] Rx#: [id number] Oral 720 / 720 Other 1200 / 1200 Output: Urine 3500 / 3500 900 / 900 Stool 300 / 300 Wound Drainage 0 / 0 ZAMZAM Drain 0 / 0 Other: Other Intake Source Saline Solution Date of Last Bowel Movement 11/06/17 11/05/17 # Incontinent Bowel Movements 1 <John Joseph - 11/07/17 13:20> Vital Signs 11/06/17 12:00 11/06/17 12:19 11/06/17 16:00 Temperature 98.2 F 97.4 F L Pulse Rate 113 H 107 H 116 H Respiratory Rate 18 Blood Pressure 137/82 136/65 Pulse Oximetry 99 100 11/06/17 20:00 11/07/17 00:00 11/07/17 04:00 Temperature 98.2 F 97.8 F 98 F Pulse Rate 81 92 H 94 H Respiratory Rate 12 18 18 Blood Pressure 137/92 H 163/93 H 150/94 H Pulse Oximetry 98 98 99 Intake & Output 11/06/17 11/07/17 11/07/17 18:59 06:59 18:59 Intake Total 4120 / 4120 1810.2 / 1810.2 Output Total 3800 / 3800 900 / 900 Balance 320 / 320 910.2 / 910.2 Weight 106.5 kg Intake: IV 2200 / 2200 1810.2 / 1810.2 D5W/1/2 NS Inj 1,000 ML @ 140 2000 / 2000 1000 / 1000 mls/hr IV.CONT .Q7H9M [facility] Rx#: [id number] Maxipime Inj 2,000 MG In NS Inj 200 / 200 200 / 200 100 ML @ 200 mls/hr IV.SIG Q8H [facility] Rx#:[id number] Cubicin Inj 800 MG In NS Inj 100 / 100 100 ML @ 200 mls/hr IV.SIG Q24H [facility] Rx#:[id number] MVI-12 Inj 10 ML Folvite Inj 1 510.2 / 510.2 MG In NS Inj 500 ML @ 125 mls/ hr IV.SIG DAILY [facility] Rx#: [id number] Oral 720 / 720 Other 1200 / 1200 Output: Urine 3500 / 3500 900 / 900 Stool 300 / 300 Wound Drainage 0 / 0 ZAMZAM Drain 0 / 0 Other: Other Intake Source Saline Solution Date of Last Bowel Movement 11/06/17 11/05/17 # Incontinent Bowel Movements 1 <CbChaz - 11/07/17 09:04> Narrative: GENERAL: Morbidly obese -[place] female lying in bed in no acute distress sleeping upon entering the room. SKIN: Cool and dry. No rash. Lower abdominal and bilateral lower extremity wounds currently bandaged with multiple ABD pads and sterile bandage. No acute signs of purulent drainage or acute bleeding. Bedding overlying affected area is partly saturated. PICC line inserted in the right upper extremity without surrounding erythema, warmth, or other signs of infection. HEENT: Atraumatic, normocephalic with extraocular motions intact. No rhinorrhea. No visible lymphadenopathy or jugulovenous distension appreciated. CARDIOVASCULAR: Tachycardic rate (baseline) and regular rhythm without obvious murmurs, gallops, or rubs. RESPIRATORY: Clear to anterior auscultation bilaterally without obvious CRW which is improved from previous exam. Breath sounds difficult to auscultate due to body habitus. No increased work of breathing. GASTROINTESTINAL: Abdomen diffuse, soft with soft bowel sounds likely due to body habitus. Patient nontender in the upper 2 quadrants, deferred tenderness evaluation and lower quadrants due to wounds. No masses appreciated. Rectal tube in place with liquid fecal material in reservoir. Hopper catheter in place with urinary output and reservoir. MUSCULOSKELETAL: No cyanosis. Stable bilateral lower extremities with 2+ pitting edema. No calf tenderness. Left knee effusion stable. SCDs in place. NEURO/PSYCH: Afocal. Patient awake and alert, however only oriented to PPT 2, baseline. Patient appears more fatigued today. Unable to complete review of systems but does state she is not in pain and has no complaints. <Chaz Vivar - 11/07/17 09:19> - Urinary Catheter Management Female External Cath placed during this visit: no <John Joseph 11/07/17 13:20> no <Chaz Vivar 11/07/17 09:19> Indwelling Urethral Catheter Cath placed during this visit: no <John Joseph 11/07/17 13:20> yes, but has since been removed by the nurse <Chaz Vivar - 11/07/17 09:19> Reason for continuing: Severe pressure ulcer/wound <Chaz Vivar 11/07/17 09:04> Insertion date: 09/27/17 <Chaz Vivar - 11/07/17 09:04> Insertion time: 08:20 <Chaz Vivar - 11/07/17 09:04> Removal date: 10/05/17 <Chaz Vivar - 11/07/17 09:04> Removal time: 17:30 <Chaz Vivar - 11/07/17 09:04> Assessment and Plan - Assessment (1) Open wound of abdominal wall Code(s): S31.109A - Unspecified open wound of abdominal wall, unspecified quadrant without penetration into peritoneal cavity, initial encounter Status : Acute (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 difficile diarrhea Code(s): A04.72 - Enterocolitis due to Clostridium difficile, not specified as recurrent Status: Acute (8) Fall Code(s): W19.XXXA - Unspecified fall, initial encounter Status: Acute (9) Hypertension Code(s): I10 - Essential (primary) hypertension Status: Acute (10) Schizophrenia Code(s): F20.9 - Schizophrenia, unspecified Status: Chronic (11) Tachycardia Code(s): R00.0 - Tachycardia, unspecified Status: Chronic (12) Nutrition, metabolism, and development symptoms Code(s): R63.8 - Other symptoms and signs concerning food and fluid intake Status: Acute <John Joseph - 11/07/17 13:20> (1) Open wound of abdominal wall Code(s): S31.109A - Unspecified open wound of abdominal wall, unspecified quadrant without penetration into peritoneal cavity, initial encounter Status : Acute Plan: -Wound Culture 09/27/17: Pseudomonas and Group B Step -Blood Cultures 10/24/17: Negative -Tissue Cultures 10/09/17: Negative -Abdominal wound culture 11/01/17: Group D Enterococcus, sensitive to Daptomycin -Infectious disease consulted -Continue cefepime until 11/08/17 -Continue oral vancomycin for Clostridium difficile until cefepime is discontinued on 11/08/17 -Continue Daptomycin for VRE on ABD wound culture on 11/03/17; monitor CK levels -General surgery consulted -Surgical debridement 10/09, wound VAC applied. -VAC changed 10/12 removed 10/15. -Debridement, irrigation, with suturing performed on 10/16. 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 NGTD, cleared from ID standpoint to go rehab with IV Cefepime until 11/08/17 -Orthopedics ([place] for Dr. 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 She completed rehabilitation and was discharged home August 23. Patient was on approximately 2 weeks of po Keflex 500 mg. Per Ortho, examination of left knee shows no evidence of infection. (3) Cellulitis of knee, left Code(s): L03.116 - Cellulitis of left lower limb Status: Acute Plan: -ID consulted, recommend Cefepime until 11/08/17 -Orthopedic surgery consulted, no further recommendations at this time Medications: -Cefepime IV (09/29/17-11/08/17) per ID; PICC line placed for antibiotic administration at rehab once wounds are stable for DC -Patient received 2 weeks of Keflex 500mg PO by Orthopedic surgery as outpatient prior to admission -Levaquin stopped 10/20 per ID -Diflucan course completed 10/18 (4) Poor nutrition Code(s): E63.9 - Nutritional deficiency, unspecified Status: Acute Plan: -Patient with poor nutritional status during hospitalization -Severe concern of poor wound healing secondary to poor nutritional status -Hockey Player consulted for calorie count and nutritional guidance, which has been limited due to NPO status prior to surgery, however patient continues to have poor intake -Multivitamin IV added with Hermes supplementation BID -Albumin levels continued to be decreased -Patient unable to receive 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 Briefly discussed with surgery about the possibility of a JG tube versus surgical placement of PEG tube Patient to start TPN, Clinimix E 08/05 @ 65 mls/hr with 20% lipids 250 mls 2x/ week ordered -Plan for possible J tube once albumin is improved with TPN feedings (5) Hypokalemia Code(s): E87.6 - Hypokalemia Status: Resolved Plan: -Patient with hypokalemia during hospitalization. Appears to be not tolerating ER capsules as they were found whole in her rectal tube reservoir. Medications: -Magnesium 64 mg daily -Potassium Chloride 40mEq BID (Non-ER/Enteric Coated) -Plan to treat as necessary (6) Anemia Code(s): D64.9 - Anemia, unspecified Status: Resolved Plan: -Patient found to have asymptomatic anemia H/H of 20.3 with MCV of 82 on -Patient has received multiple transfusions during hospitalization with hemoglobin ranging from 7.5 to 8.7 over the last week -Rectal tube and Hopper catheter without any signs of acute bleeding -Dressings without obvious signs of bleeding -Due to critical condition and severity of abdominal wounds with decreasing hemoglobin, 2 units PRBC ordered -Patient did receive Lasix between units to assist with possible fluid overload -Posttransfusion H/H 11.6/34.7 on 10/30/17 -Continue to monitor (7) C. difficile diarrhea Code(s): A04.72 - Enterocolitis due to Clostridium difficile, not specified as recurrent Status: Acute Plan: -C diff cultures positive 10/19/17 -Vancomycin PO 125 4 times daily until completion of Cefepime per ID -Continue with probiotics. -Rectal tube in place (8) Fall Code(s): W19.XXXA - Unspecified fall, initial encounter Status: Acute Plan: Patient with fall on 10/19/17. No loss of consciousness, no head injury, left knee and ankle pain. -Knee x-ray- Prosthesis in place, No abnormality appreciated -Ankle x-ray- No abnormality appreciated -Patient to continue with PT (9) Hypertension Code(s): I10 - Essential (primary) hypertension Status: Acute Plan: History of hypertension -Continue to monitor -Clonidine PRN for BP > 180/100 (10) Schizophrenia Code(s): F20.9 - Schizophrenia, unspecified Status: Chronic Plan: -Psychiatry consulted upon admission Medications: -Continue Abilify 30 mg for psychosis -Continue buspirone 30 mg, trazodone 100 mg and Cymbalta 60 mg -Hold anticholinergics per Psych (11) Tachycardia Code(s): R00.0 - Tachycardia, unspecified Status: Chronic Plan: -Patient with chronic history of tachycardia -EKG 09/27/17: Sinus tachycardia with rate of [address] or interval changes. (Per medical team read) Medications: -Continue home diltiazem and carvedilol (12) Nutrition, metabolism, and development symptoms Code(s): R63.8 - Other symptoms and signs concerning food and fluid intake Status: Acute Plan: Fluids: Changed to D5+1/2NS at maintenance rate (140 mL/h) as urinary output has decreased and patient with mild hypoglycemia on CMP Electrolytes: Replete as needed. Nutrition: Cardiac diet with Ensure, continue to monitor po intake, supplement with ensure. Encouraged patient that she needed to increase p.o. intake in order to heal -Hockey Player consulted for nutritional guidance -Multivitamin IV added with Hermes supplementation BID -TPN orders placed by staff, Clinimix E 08/05 @ 65 mls/hr with 20% lipids 250 mls 2x/week DVT prophylaxis: SCDs, Defer medical prophylaxis due to anemia Continue to work with OT/PT to improve ambulation <Chaz Vivar H - 11/07/17 09:15> - Assessment and Plan . <Chaz Vivar - 11/07/17 09:04> - Attending Attestation Patient examined independently and case was discussed with resident physician I have read the above note and agree with the assessment/plan as discussed with me I was involved in all medical decision making for this patient John Joseph MD <John Joseph - 11/07/17 13:20> <Chaz Vivar - Last Filed: 11/07/17 09:15> (1) Open wound of abdominal wall Qualifiers: Encounter type: initial encounter Qualified Code(s): S31.109A - Unspecified open wound of abdominal wall, unspecified quadrant without penetration into peritoneal cavity, initial encounter (6) Anemia Qualifiers: Anemia type: unspecified type Qualified Code(s): D64.9 - Anemia, unspecified (9) Hypertension Qualifiers: Hypertension type: essential hypertension Qualified Code(s): I10 - Essential (primary) hypertension <John Joseph - Last Filed: 11/07/17 13:20> (1) Open wound of abdominal wall Qualifiers: Encounter type: initial encounter Qualified Code(s): S31.109A - Unspecified open wound of abdominal wall, unspecified quadrant without penetration into peritoneal cavity, initial encounter (6) Anemia Qualifiers: Anemia type: unspecified type Qualified Code(s): D64.9 - Anemia, unspecified (9) Hypertension Qualifiers: Hypertension type: essential hypertension Qualified Code(s): I10 - Essential (primary) hypertension <Chaz Vivar - Last Filed: 11/07/17 09:15> (1) Open wound of abdominal wall Qualifiers: Encounter type: initial encounter Qualified Code(s): S31.109A - Unspecified open wound of abdominal wall, unspecified quadrant without penetration into peritoneal cavity, initial encounter (6) Anemia Qualifiers: Anemia type: unspecified type Qualified Code(s): D64.9 - Anemia, unspecified (9) Hypertension Qualifiers: Hypertension type: essential hypertension Qualified Code(s): I10 - Essential (primary) hypertension <John Joseph - Last Filed: 11/07/17 13:20> (1) Open wound of abdominal wall Qualifiers: Encounter type: initial encounter Qualified Code(s): S31.109A - Unspecified open wound of abdominal wall, unspecified quadrant without penetration into peritoneal cavity, initial encounter (6) Anemia Qualifiers: Anemia type: unspecified type Qualified Code(s): D64.9 - Anemia, unspecified (9) Hypertension Qualifiers: Hypertension type: essential hypertension Qualified Code(s): I10 - Essential (primary) hypertension
[2017-11-07 11:29] LABS: Baso # (Auto) 0.1 th/mm3 (0.0-0.2); Baso % (Auto) 0.4 % (0.0-2.0); Eos # (Auto) 0.2 th/mm3 (0.0-0.4); Eos % (Auto) 1.5 % (0.0-4.0); Hematocrit 31.6 % (35.0-46.0); Hemoglobin 10.2 gm/dL (11.6-15.3); Lymph # (Auto) 1.5 th/mm3 (1.0-4.8); Lymph % (Auto) 10.3 % (9.0-44.0); Mean Corpuscular HGB Conc 32.3 % (32.0-36.0); Mean Corpuscular Hemoglobin 28.2 pg (27.0-34.0); Mean Corpuscular Volume 87.3 fL (80.0-100.0); Mean Platelet Volume 7.9 fL (7.0-11.0); Mono # (Auto) 0.9 th/mm3 (0.0-0.9); Mono % (Auto) 5.9 % (0.0-8.0); Neut # (Auto) 11.9 th/mm3 (1.8-7.7); Neut % (Auto) 81.9 % (16.0-70.0); Platelet Count 173 th/mm3 (150-450); Red Blood Count 3.62 mil/mm3 (4.00-5.30); Red Cell Distribution Width 16.9 % (11.6-17.2); White Blood Count 14.5 th/mm3 (4.0-11.0)
[2017-11-07] MEDS: Pantoprazole Sodium 20 MG DR Tablet PO SCH (11:43)
[2017-11-07] MEDS: Folic Acid 1 MG Tablet PO SCH (11:43)
[2017-11-07] MEDS: Lactobacillus Acidophilus/L. Spores Tablet PO SCH ×2 (11:43→23:05)
[2017-11-07] MEDS: dilTIAZem 60 MG Tablet PO SCH ×3 (11:43→18:50)
[2017-11-07] MEDS: traZODone 100 MG Tablet PO SCH (11:43)
[2017-11-07] MEDS: Duloxetine 60 MG DR Capsule PO SCH (11:43)
[2017-11-07] MEDS: Metoprolol Tartrate 25 MG Tablet PO SCH ×2 (11:45→23:05)
[2017-11-07] MEDS: Heparin Central Flush 100 UNIT/ML 5 ML Vial IV.FLUSH SCH (11:56)
[2017-11-07] MEDS: Multivitamin Inj 10 ML, Folic Acid Inj 1 MG in Sodium Chlor 0.9% Inj 500 ML IV.SIG SCH (11:57)
[2017-11-07] MEDS ORDERED: Potassium Chloride 25 MEQ Effervescent Tablet PO ONE (14:00)
[2017-11-07] MEDS: DAPTOmycin Inj 800 MG in Sodium Chlor 0.9% Inj 100 ML IV.SIG SCH (14:35)
[2017-11-07] MEDS ORDERED: FOLIC ACID IV.SIG SCH (20:00)
[2017-11-07] MEDS ORDERED: MULTIVITAMIN IV.SIG SCH (20:00)
[2017-11-07] MEDS ORDERED: [UNRECOGNIZED DRUG - OTHER] IV.SIG SCH (20:00)
[2017-11-07] MEDS ORDERED: ELECTROLYTES IV.SIG SCH (20:00)
[2017-11-07] MEDS: Multivitamin Inj 10 ML, Folic Acid Inj 1 MG in TPN Fluid 2 Liter 2,000 ML IV.SIG SCH (23:03)
[2017-11-08] MEDS: Dextrose 5%/NaCl 0.45% Inj 1,000 ML IV.CONT SCH (06:42)
[2017-11-08 07:35] LABS: Baso % (Auto) 0.3 % (0.0-2.0); Eos # (Auto) 0.3 th/mm3 (0.0-0.4); Eos % (Auto) 1.8 % (0.0-4.0); Hematocrit 28.9 % (35.0-46.0); Hemoglobin 8.7 gm/dL (11.6-15.3); Lymph # (Auto) 1.5 th/mm3 (1.0-4.8); Lymph % (Auto) 10.5 % (9.0-44.0); Mean Corpuscular Hemoglobin 28.6 pg (27.0-34.0); Mean Corpuscular Volume 94.5 fL (80.0-100.0); Mean Platelet Volume 7.7 fL (7.0-11.0); Mono # (Auto) 0.8 th/mm3 (0.0-0.9); Mono % (Auto) 5.7 % (0.0-8.0); Neut % (Auto) 81.7 % (16.0-70.0); Platelet Count 126 th/mm3 (150-450); Red Blood Count 3.06 mil/mm3 (4.00-5.30); Red Cell Distribution Width 18.4 % (11.6-17.2); White Blood Count 14.7 th/mm3 (4.0-11.0)
[2017-11-08 07:39] LABS: Mean Corpuscular HGB Conc 30.2 % (32.0-36.0)
[2017-11-08 07:48] LABS: Albumin 0.8 g/dL (3.4-5.0); Anion Gap 9 meq/L (5-15); Aspartate Aminotransferase 14 U/L (15-37); Blood Urea Nitrogen 10 mg/dL (7-18); Calcium 7.5 mg/dL (8.5-10.1); Carbon Dioxide 17.2 meq/L (21.0-32.0); Chloride 111 meq/L (98-107); Glomerular Filtration Rate 67 mL/min (>89); Potassium 4.7 meq/L (3.5-5.1); Sodium 137 meq/L (136-145)
[2017-11-08 07:49] LABS: Alanine Aminotransferase 16 U/L (10-53); Alkaline Phosphatase 133 U/L (45-117); Total Protein 4.2 g/dL (6.4-8.2)
[2017-11-08 07:55] LABS: Glucose,Random 695 mg/dL (74-106)
--- NOTE | 2017-11-08 08:23 | P.PNFP ---
Subjective Interval history: Patient seen and examined this morning. No acute events overnight per nursing staff. Patient continues to be oriented PPT 2 with flattened affect secondary to her schizophrenia. Patient's only complaint this morning is a slightly sore throat however she states that it improves with drinking fluids. Otherwise she endorses no complaints and no pain, however is unable to complete a review of systems. Of note, her morning laboratory evaluations patient was found to have a glucose of 695 since starting her TPN. Suspect laboratory evaluation was taken from PICC line with concurrent TPN feeds falsely elevated blood glucose. Repeat evaluation ordered per protocol. <Chaz Vivar H - 11/08/17 08:51> Results - Labs Result diagrams: 11/08/17 09:40 11/08/17 09:40 <John Joseph - 11/08/17 16:06> Abnormal lab results 11/08/17 11/08/17 11/08/17 Range/Units 09:40 09:40 15:41 WBC 14.7 H (4.0-11.0) th/mm3 RBC 3.06 L (4.00-5.30) mil/mm3 Hgb 8.7 L (11.6-15.3) gm/dL Hct 28.9 L (35.0-46.0) % MCHC 30.2 L (32.0-36.0) % RDW 18.4 H (11.6-17.2) % Plt Count 126 L (150-450) th/mm3 Neut % (Auto) 81.7 H (16.0-70.0) % Neut # (Auto) 12.0 H (1.8-7.7) th/mm3 Chloride 111 H (98-107) meq/L Carbon Dioxide 17.2 L (21.0-32.0) meq/L Creatinine 1.04 H (0.50-1.00) mg/dL Estimated GFR 67 L (>89) mL/min POC Glucose 146 H (68-110) mg/dl Random Glucose 695 H* D (74-106) mg/dL Calcium 7.5 L (8.5-10.1) mg/dL AST 14 L (15-37) U/L Alkaline Phosphatase 133 H (45-117) U/L Total Protein 4.2 L (6.4-8.2) g/dL Albumin 0.8 L (3.4-5.0) g/dL Short CBC 11/08/17 Range/Units 09:40 WBC 14.7 H (4.0-11.0) th/mm3 Hgb 8.7 L (11.6-15.3) gm/dL Hct 28.9 L (35.0-46.0) % Plt Count 126 L (150-450) th/mm3 BMP 11/08/17 09:40 Sodium 137 Potassium 4.7 D Chloride 111 H Carbon Dioxide 17.2 L BUN 10 Creatinine 1.04 H Calcium 7.5 L Liver Function 11/08/17 Range/Units 09:40 Total Bilirubin 0.2 (0.2-1.0) mg/dL AST 14 L (15-37) U/L ALT 16 (10-53) U/L Alkaline Phosphatase 133 H (45-117) U/L Albumin 0.8 L (3.4-5.0) g/dL <John Joseph - 11/08/17 16:06> Abnormal lab results 11/07/17 11/07/17 11/08/17 Range/Units 07:20 10:28 06:50 WBC 14.5 H (4.0-11.0) th/mm3 RBC 3.62 L (4.00-5.30) mil/mm3 Hgb 10.2 L (11.6-15.3) gm/dL Hct 31.6 L (35.0-46.0) % MCHC (32.0-36.0) % RDW (11.6-17.2) % Plt Count (150-450) th/mm3 Neut % (Auto) 81.9 H (16.0-70.0) % Neut # (Auto) 11.9 H (1.8-7.7) th/mm3 Potassium 3.4 L (3.5-5.1) meq/L Chloride 114 H 111 H (98-107) meq/L Carbon Dioxide 18.4 L 17.2 L (21.0-32.0) meq/L Creatinine 1.04 H (0.50-1.00) mg/dL Estimated GFR 67 L (>89) mL/min Random Glucose 107 H 695 H* D (74-106) mg/dL Calcium 7.7 L 7.5 L (8.5-10.1) mg/dL AST 14 L (15-37) U/L Alkaline Phosphatase 145 H 133 H (45-117) U/L Total Protein 4.5 L 4.2 L (6.4-8.2) g/dL Albumin 0.9 L 0.8 L (3.4-5.0) g/dL 11/08/17 Range/Units 06:50 WBC 14.7 H (4.0-11.0) th/mm3 RBC 3.06 L (4.00-5.30) mil/mm3 Hgb 8.7 L (11.6-15.3) gm/dL Hct 28.9 L (35.0-46.0) % MCHC 30.2 L (32.0-36.0) % RDW 18.4 H (11.6-17.2) % Plt Count 126 L (150-450) th/mm3 Neut % (Auto) 81.7 H (16.0-70.0) % Neut # (Auto) 12.0 H (1.8-7.7) th/mm3 Potassium (3.5-5.1) meq/L Chloride (98-107) meq/L Carbon Dioxide (21.0-32.0) meq/L Creatinine (0.50-1.00) mg/dL Estimated GFR (>89) mL/min Random Glucose (74-106) mg/dL Calcium (8.5-10.1) mg/dL AST (15-37) U/L Alkaline Phosphatase (45-117) U/L Total Protein (6.4-8.2) g/dL Albumin (3.4-5.0) g/dL Short CBC 11/07/17 11/08/17 Range/Units 10:28 06:50 WBC 14.5 H 14.7 H (4.0-11.0) th/mm3 Hgb 10.2 L 8.7 L (11.6-15.3) gm/dL Hct 31.6 L 28.9 L (35.0-46.0) % Plt Count 173 126 L (150-450) th/mm3 BMP 11/07/17 11/08/17 07:20 06:50 Sodium 142 137 Potassium 3.4 L 4.7 D Chloride 114 H 111 H Carbon Dioxide 18.4 L 17.2 L BUN 10 10 Creatinine 0.71 1.04 H Calcium 7.7 L 7.5 L Liver Function 11/07/17 11/08/17 Range/Units 07:20 06:50 Total Bilirubin 0.3 0.2 (0.2-1.0) mg/dL AST 16 14 L (15-37) U/L ALT 18 16 (10-53) U/L Alkaline Phosphatase 145 H 133 H (45-117) U/L Albumin 0.9 L 0.8 L (3.4-5.0) g/dL <Chaz Vivar H - 11/08/17 08:23> Physical Exam Vital signs: Vital Signs 11/07/17 21:20 11/08/17 00:30 11/08/17 04:00 Temperature 98 F 98.8 F Pulse Rate 107 H 110 H 101 H Respiratory Rate 17 19 Blood Pressure 125/80 120/89 Pulse Oximetry 98 98 11/08/17 04:20 11/08/17 08:00 11/08/17 12:00 Temperature 98 F 97.3 F L 97.6 F Pulse Rate 108 H 128 H 124 H Respiratory Rate 17 14 16 Blood Pressure 130/80 173/89 H 122/80 Pulse Oximetry 97 99 99 Intake & Output 11/07/17 11/08/17 11/08/17 18:59 06:59 18:59 Intake Total 3575 / 3575 200 / 200 Output Total 3400 / 3400 Balance 175 / 175 200 / 200 Weight 150 kg Intake: IV 2200 / 2200 200 / 200 D5W/1/2 NS Inj 1,000 ML @ 140 2000 / 2000 mls/hr IV.CONT .Q7H9M [facility] Rx#: [id number] Maxipime Inj 2,000 MG In NS Inj 200 / 200 100 / 100 100 ML @ 200 mls/hr IV.SIG Q8H [facility] Rx#:[id number] Cubicin Inj 800 MG In NS Inj 100 / 100 100 ML @ 200 mls/hr IV.SIG Q24H [facility] Rx#:[id number] Oral 1375 / 1375 Output: Urine 1000 / 1000 Stool 400 / 400 Urine Amount (Catheter) 1999 Indwelling Urethral Catheter 1999 Other: # Voids 1 Date of Last Bowel Movement 11/05/17 11/05/17 <John Joseph 11/08/17 16:06> Vital Signs 11/07/17 12:00 11/07/17 16:00 11/07/17 21:20 Temperature 97.5 F L 98 F Pulse Rate 111 H 66 107 H Respiratory Rate 18 17 Blood Pressure 137/83 125/80 Pulse Oximetry 97 98 11/08/17 00:30 11/08/17 04:00 11/08/17 04:20 Temperature 98.8 F 98 F Pulse Rate 110 H 101 H 108 H Respiratory Rate 19 17 Blood Pressure 120/89 130/80 Pulse Oximetry 98 97 Intake & Output 11/07/17 11/08/17 11/08/17 18:59 06:59 18:59 Intake Total 3575 / 3575 Output Total 3400 / 3400 Balance 175 / 175 Weight 150 kg Intake: IV 2200 / 2200 D5W/1/2 NS Inj 1,000 ML @ 140 2000 / 2000 mls/hr IV.CONT .Q7H9M [facility] Rx#: [id number] Maxipime Inj 2,000 MG In NS Inj 200 / 200 100 ML @ 200 mls/hr IV.SIG Q8H [facility] Rx#:[id number] Oral 1375 / 1375 Output: Urine 1000 / 1000 Stool 400 / 400 Urine Amount (Catheter) 1999 Indwelling Urethral Catheter 1999 Other: Date of Last Bowel Movement 11/05/17 <Chaz Vivar - 11/08/17 08:23> Narrative: GENERAL: Morbidly obese -[place] female lying in bed in no acute distress sleeping upon entering the room. SKIN: Cool and dry. No rash. Lower abdominal and bilateral lower extremity wounds currently bandaged with multiple ABD pads and sterile bandage. No acute signs of purulent drainage or acute bleeding. Bedding overlying affected area is partly saturated. PICC line inserted in the right upper extremity without surrounding erythema, warmth, or other signs of infection. HEENT: Atraumatic, normocephalic with extraocular motions intact. No rhinorrhea. Oropharynx difficult to examine secondary to patient compliance with exam. No obvious signs of erythema or exudate. No visible lymphadenopathy or jugulovenous distension appreciated. CARDIOVASCULAR: Tachycardic rate (baseline) and regular rhythm without obvious murmurs, gallops, or rubs. RESPIRATORY: Clear to anterior auscultation bilaterally without obvious CRW which is improved from previous exam. Breath sounds difficult to auscultate due to body habitus. No increased work of breathing. GASTROINTESTINAL: Abdomen diffuse, soft with soft bowel sounds likely due to body habitus. Patient nontender in the upper 2 quadrants, deferred tenderness evaluation and lower quadrants due to wounds. No masses appreciated. Rectal tube in place with liquid fecal material in reservoir. Hopper catheter in place with urinary output and reservoir. MUSCULOSKELETAL: No cyanosis. Stable bilateral lower extremities with 2+ pitting edema. No calf tenderness. Left knee effusion stable and nontender to palpation. SCDs in place. NEURO/PSYCH: Afocal. Patient awake and alert, however only oriented to PPT 2, baseline. Patient appears more fatigued today. Unable to complete review of systems but does state she is not in pain and has no complaints. <Chaz Vivar 11/08/17 08:51> - Urinary Catheter Management Female External Cath placed during this visit: no <John Joseph 11/08/17 16:06> no <Chaz Vivar 11/08/17 14:48> Indwelling Urethral Catheter Cath placed during this visit: no <John Joseph 11/08/17 16:06> yes, but has since been removed by the nurse <Chaz Vivar 11/08/17 14:48> Reason for continuing: Severe pressure ulcer/wound <Chaz Vivar 11/08/17 08:23> Insertion date: 09/27/17 <Chaz Vivar 11/08/17 08:23> Insertion time: 08:20 <Chaz Vivar 11/08/17 08:23> Removal date: 10/05/17 <Chaz Vivar 11/08/17 08:23> Removal time: 17:30 <Chaz Vivar 11/08/17 08:23> Assessment and Plan - Assessment (1) Open wound of abdominal wall Code(s): S31.109A - Unspecified open wound of abdominal wall, unspecified quadrant without penetration into peritoneal cavity, initial encounter Status : Acute (2) Cellulitis of knee, left Code(s): L03.116 - Cellulitis of left lower limb Status: Acute (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 difficile diarrhea Code(s): A04.72 - Enterocolitis due to Clostridium difficile, not specified as recurrent Status: Acute (9) Fall Code(s): W19.XXXA - Unspecified fall, initial encounter Status: Acute (10) Hypertension Code(s): I10 - Essential (primary) hypertension Status: Acute (11) Schizophrenia Code(s): F20.9 - Schizophrenia, unspecified Status: Chronic (12) Tachycardia Code(s): R00.0 - Tachycardia, unspecified Status: Chronic (13) Nutrition, metabolism, and development symptoms Code(s): R63.8 - Other symptoms and signs concerning food and fluid intake Status: Acute <John Joseph - 11/08/17 16:06> (1) Open wound of abdominal wall Code(s): S31.109A - Unspecified open wound of abdominal wall, unspecified quadrant without penetration into peritoneal cavity, initial encounter Status : Acute Plan: -Wound Culture 09/27/17: Pseudomonas and Group B Step -Blood Cultures 10/24/17: Negative -Tissue Cultures 10/09/17: Negative -Abdominal wound culture 11/01/17: Group D Enterococcus, sensitive to Daptomycin -Blood Culture 11/07/17 per TPN protocol: Pending -Infectious disease consulted -Continue cefepime until 11/08/17 -Continue oral vancomycin for Clostridium difficile until cefepime is discontinued on 11/08/17 -Continue Daptomycin for VRE on ABD wound culture on 11/03/17; monitor CK levels -General surgery consulted -Surgical debridement 10/09, wound VAC applied. -VAC changed 10/12 removed 10/15. -Debridement, irrigation, with suturing performed on 10/16. -I&D of abdomen and bilateral thighs, placement of Amniox with wound closure on 11/01/17 -Dressing changes per general surgery Medications: -Cefepime IV (09/29/17-11/08/17) per ID; PICC line placed for antibiotic administration at rehab once wounds are stable for DC -Daptomycin IV for suspected VRE per ID (11/03/17- ) -Patient received 2 weeks of Keflex 500mg PO by Orthopedic surgery as outpatient prior to admission -Levaquin stopped 10/20 per ID -Diflucan course completed 10/18 (2) Cellulitis of knee, left Code(s): L03.116 - Cellulitis of left lower limb Status: Acute Plan: -ID consulted, recommend Cefepime until 11/08/17 -Orthopedic surgery consulted, no further recommendations at this time Medications: -Cefepime IV (09/29/17-11/08/17) per ID; PICC line placed for antibiotic administration at rehab once wounds are stable for DC -Patient received 2 weeks of Keflex 500mg PO by Orthopedic surgery as outpatient prior to admission -Levaquin stopped 10/20 per ID -Diflucan course completed 10/18 (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 NGTD, cleared from ID standpoint to go rehab with IV Cefepime until 11/08/17 -Orthopedics ([place] for Dr. 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 She completed rehabilitation and was discharged home August 23. Patient was on approximately 2 weeks of po Keflex 500 mg. Per Ortho, examination of left knee shows no evidence of infection. (4) Poor nutrition Code(s): E63.9 - Nutritional deficiency, unspecified Status: Acute Plan: -Patient with poor nutritional status during hospitalization -Severe concern of poor wound healing secondary to poor nutritional status -Tobacco Prizer consulted for calorie count and nutritional guidance, which has been limited due to NPO status prior to surgery, however patient continues to have poor intake -Multivitamin IV added with Hermes supplementation BID -Albumin levels continued to be decreased -Patient unable to receive 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 Briefly discussed with surgery about the possibility of a JG tube versus surgical placement of PEG tube Patient to start TPN, Clinimix E 08/05 @ 65 mls/hr with 20% lipids 250 mls 2x/ week (11/07/17- ) -Plan for possible J tube once albumin is improved with TPN feedings (5) Hyperglycemia Code(s): R73.9 - Hyperglycemia, unspecified Status: Acute Plan: Patient with new hyperglycemia and CMP to 695 after starting TPN without history of diabetes. -Suspect laboratory evaluation was drawn from TPN line falsely elevating glucose -Repeat ordered per laboratory protocol -Continue to monitor and treat as necessary (6) Hypokalemia Code(s): E87.6 - Hypokalemia Status: Resolved Plan: -Patient with hypokalemia during hospitalization. Appears to be not tolerating ER capsules as they were found whole in her rectal tube reservoir. Medications: -Magnesium 64 mg daily -Potassium Chloride 40mEq BID (Non-ER/Enteric Coated) -Plan to treat as necessary (7) Anemia Code(s): D64.9 - Anemia, unspecified Status: Resolved Plan: -Patient found to have asymptomatic anemia H/H of /20.3 with MCV of 82 on -Rectal tube and Hopper catheter without any signs of acute bleeding -Dressings without obvious signs of bleeding -Due to critical condition and severity of abdominal wounds with decreasing hemoglobin, 2 units PRBC ordered -Patient did receive Lasix between units to assist with possible fluid overload -Posttransfusion H/H 11.6/34.7 on 10/30/17 -Continue to monitor (8) C. difficile diarrhea Code(s): A04.72 - Enterocolitis due to Clostridium difficile, not specified as recurrent Status: Acute Plan: -C diff cultures positive 10/19/17 -Vancomycin PO 125 4 times daily until completion of Cefepime per ID -Continue with probiotics. -Rectal tube in place (9) Fall Code(s): W19.XXXA - Unspecified fall, initial encounter Status: Acute Plan: Patient with fall on 10/19/17. No loss of consciousness, no head injury, left knee and ankle pain. -Knee x-ray- Prosthesis in place, No abnormality appreciated -Ankle x-ray- No abnormality appreciated -Patient to continue with PT (10) Hypertension Code(s): I10 - Essential (primary) hypertension Status: Acute Plan: History of hypertension -Continue to monitor -Clonidine PRN for BP > 180/100 (11) Schizophrenia Code(s): F20.9 - Schizophrenia, unspecified Status: Chronic Plan: -Psychiatry consulted upon admission Medications: -Continue Abilify 30 mg for psychosis -Continue buspirone 30 mg, trazodone 100 mg and Cymbalta 60 mg -Hold anticholinergics per Psych (12) Tachycardia Code(s): R00.0 - Tachycardia, unspecified Status: Chronic Plan: -Patient with chronic history of tachycardia -EKG 09/27/17: Sinus tachycardia with rate of [address] or interval changes. (Per medical team read) Medications: -Continue home diltiazem and carvedilol (13) Nutrition, metabolism, and development symptoms Code(s): R63.8 - Other symptoms and signs concerning food and fluid intake Status: Acute Plan: Fluids: TPN as below, tolerating oral fluids Electrolytes: Replete as needed. Nutrition: Cardiac diet with Ensure, continue to monitor po intake, supplement with ensure. Encouraged patient that she needed to increase p.o. intake in order to heal -Tobacco Prizer consulted for nutritional guidance -TPN Clinimix E 08/05 @ 65 mls/hr with 20% lipids 250 mls 2x/week (11/07/17- ) DVT prophylaxis: SCDs, Defer medical prophylaxis due to anemia Continue to work with OT/PT to improve ambulation <Chaz Vivar H - 11/08/17 14:47> - Assessment and Plan . <Chaz Vivar - 11/08/17 08:23> - Attending Attestation Patient examined independently and case discussed with resident physician I have read the above note and agree with the assessment/plan as discussed with me I was involved in all medical decision making for this patient John Joseph MD <John Joseph - 11/08/17 16:06> <Chaz Vivar H - Last Filed: 11/08/17 14:47> (1) Open wound of abdominal wall Qualifiers: Encounter type: initial encounter Qualified Code(s): S31.109A - Unspecified open wound of abdominal wall, unspecified quadrant without penetration into peritoneal cavity, initial encounter (7) Anemia Qualifiers: Anemia type: unspecified type Qualified Code(s): D64.9 - Anemia, unspecified (10) Hypertension Qualifiers: Hypertension type: essential hypertension Qualified Code(s): I10 - Essential (primary) hypertension <John Joseph - Last Filed: 11/08/17 16:06> (1) Open wound of abdominal wall Qualifiers: Encounter type: initial encounter Qualified Code(s): S31.109A - Unspecified open wound of abdominal wall, unspecified quadrant without penetration into peritoneal cavity, initial encounter (7) Anemia Qualifiers: Anemia type: unspecified type Qualified Code(s): D64.9 - Anemia, unspecified (10) Hypertension Qualifiers: Hypertension type: essential hypertension Qualified Code(s): I10 - Essential (primary) hypertension <Chaz Vivar H - Last Filed: 11/08/17 14:47> (1) Open wound of abdominal wall Qualifiers: Encounter type: initial encounter Qualified Code(s): S31.109A - Unspecified open wound of abdominal wall, unspecified quadrant without penetration into peritoneal cavity, initial encounter (7) Anemia Qualifiers: Anemia type: unspecified type Qualified Code(s): D64.9 - Anemia, unspecified (10) Hypertension Qualifiers: Hypertension type: essential hypertension Qualified Code(s): I10 - Essential (primary) hypertension <John Joseph - Last Filed: 11/08/17 16:06> (1) Open wound of abdominal wall Qualifiers: Encounter type: initial encounter Qualified Code(s): S31.109A - Unspecified open wound of abdominal wall, unspecified quadrant without penetration into peritoneal cavity, initial encounter (7) Anemia Qualifiers: Anemia type: unspecified type Qualified Code(s): D64.9 - Anemia, unspecified (10) Hypertension Qualifiers: Hypertension type: essential hypertension Qualified Code(s): I10 - Essential (primary) hypertension
[2017-11-08] MEDS: Lactobacillus Acidophilus/L. Spores Tablet PO SCH ×2 (09:27→21:44)
[2017-11-08] MEDS: traZODone 100 MG Tablet PO SCH ×2 (09:28→21:08)
[2017-11-08] MEDS: dilTIAZem 60 MG Tablet PO SCH ×3 (09:28→18:41)
[2017-11-08] MEDS: Duloxetine 60 MG DR Capsule PO SCH (09:28)
[2017-11-08] MEDS: Pantoprazole Sodium 20 MG DR Tablet PO SCH (09:28)
[2017-11-08] MEDS: Metoprolol Tartrate 25 MG Tablet PO SCH ×2 (09:28→21:07)
[2017-11-08] MEDS: Folic Acid 1 MG Tablet PO SCH (09:28)
[2017-11-08] MEDS: Heparin Central Flush 100 UNIT/ML 5 ML Vial IV.FLUSH SCH (09:29)
[2017-11-08] MEDS: DAPTOmycin Inj 800 MG in Sodium Chlor 0.9% Inj 100 ML IV.SIG SCH (12:45)
--- NOTE | 2017-11-08 13:12 | P.DIET ---
Nutritional Evaluation Type of nutrition evaluation: follow-up Nutrition screening: [facility] (10/31 Calorie counting. Pt with decreased intake with healing wounds) Screening comments: 11/06 [facility] for TPN Subjective Subjective Comments: PEG can not be placed 2' to hx of gastric sleeve. Objective - Diagnosis Sepsis, Anemia, Neutropenia - Objective % IBW: 241 (IBW = 98#) Body Weight Used for Calculations: Upper end of IBW (49 kg) Energy Needs - Lower Range (kCal/kg): 30 Energy Needs - Upper Range (kCal/kg): 35 Lower Limit kCal/kg (kCals): 1,470 Upper Limit kCal/kg (kCals): 1,715 Lower Limit Protein Factor (Grams per Kg): 1.0 Upper Limit Protein Factor (Grams per Kg): 1.5 Lower Protein Needs (Protein): 49 Upper Protein Needs (Protein): 74 Fluid Factor (ml/kg): 35 Estimated Fluid Needs (ml): 1,715 Dietitian Reviewed in Medical Record: Current diet, Curent medications, Intake & Output, Labs, Medical history, Wound/DTI Diet Order: Heart Healthy, Ensure tid Wound Care Note: Per Wound Management Note: R and L perineal area- stage 3 Pt also has an open abdominal wound Objective Comments: -Surgical debridement 10/09, wound VAC applied. -VAC changed 10/12 removed 10/15. -Debridement, irrigation, with suturing performed on 10/16. -I&D of abdomen and bilateral thighs, placement of Amniox with wound closure on 11/01/17 Feeding - Current PO Supplement Current Supplement: Ensure Original Current Frequency of Supplement: Three times a day Current kCals Provided by Supplement: 250 (per 8 oz) Current Protein Provided by Supplement: 9 (per 8 oz) Assessment Assessment: Pt remains at high nutrition risk 2' to dx and presence of wounds. Poor po intake has been reported. Calorie counts have been completed, but not enough info was recorded for RD to assess. One meal was recorded and indicates an intake of ~480 kcals and 31 gms protien in that one meal. If this is coonsistent with usual intake, it would mean the pt is able to meet nutritional needs with po intake alone. For now, recommend the addition of daily MVI/min and Hermes supplement, a therapeutic nutritional supplement that may aid in healing. Weight review indicates very erratic weights have been recorded. If TF is decided upon, recommend Vital 1.5 @ 50 mls/hr to provide 1800 kcals, 81 gms protein and 917 mls of free water. To meet needs with TPN, recommend Clinimix E 5/20 @ 65 mls/hr to provide 1320 kcals and 75 gms protein. Lipids 20% 250 mls can be given 2x/week for an additional 500 kcals on those days. Elevated glucose noted: insulin can be added to TPN. Please note that PREALB/ALBUMIN are no longer considered indicators for malnutrition. They are acte phase proteins and reflect severity of inflammation response rather than nutritional status. They do not respond to feeding interventions Recommendations: 1. Continue current diet and Ensure. 2. Please order Hermes bid and MVI/min q day 3. Would recommend hold off on PEG placement and continue to monitor po intake. 4. If TF is decided upon: Vital 1.5 @ 50 mls/hr goal 5. For TPN/lipids: Clinimix E 5/20 @ 65 mls/hr with 20% lipids 250 mls 2x/week Dietitian to Monitor: Lab values, Supplement acceptance, Intake & Output, Diet tolerance, Weight change, PO Intake, Wound/skin status, Medical course
[2017-11-08 17:38] LABS: Hematocrit 31.1 % (35.0-46.0)
[2017-11-08] MEDS: Mirtazapine 15 MG Tablet PO SCH (21:07)
[2017-11-08] MEDS: Multivitamin Inj 10 ML, Folic Acid Inj 1 MG in TPN Fluid 2 Liter 2,000 ML IV.SIG SCH (21:08)
[2017-11-09 06:00] LABS: Baso % (Auto) 0.3 % (0.0-2.0); Eos # (Auto) 0.3 th/mm3 (0.0-0.4); Hematocrit 26.9 % (35.0-46.0); Hemoglobin 9.7 gm/dL (11.6-15.3); Lymph # (Auto) 1.2 th/mm3 (1.0-4.8); Lymph % (Auto) 8.2 % (9.0-44.0); Mean Corpuscular Hemoglobin 32.7 pg (27.0-34.0); Mean Corpuscular Volume 90.3 fL (80.0-100.0); Mono # (Auto) 0.8 th/mm3 (0.0-0.9); Mono % (Auto) 5.6 % (0.0-8.0); Neut # (Auto) 12.2 th/mm3 (1.8-7.7); Neut % (Auto) 83.9 % (16.0-70.0); Platelet Count 116 th/mm3 (150-450); Red Blood Count 2.98 mil/mm3 (4.00-5.30); White Blood Count 14.6 th/mm3 (4.0-11.0)
[2017-11-09 06:05] LABS: Mean Corpuscular HGB Conc 36.2 % (32.0-36.0)
[2017-11-09 06:45] LABS: Alanine Aminotransferase 21 U/L (10-53); Albumin 0.8 g/dL (3.4-5.0); Alkaline Phosphatase 134 U/L (45-117); Anion Gap 8 meq/L (5-15); Blood Urea Nitrogen 12 mg/dL (7-18); Carbon Dioxide 17.8 meq/L (21.0-32.0); Chloride 111 meq/L (98-107); Glomerular Filtration Rate 67 mL/min (>89); Potassium 5.1 meq/L (3.5-5.1); Sodium 137 meq/L (136-145)
[2017-11-09 06:52] LABS: Glucose,Random 654 mg/dL (74-106)
[2017-11-09 07:37] LABS: Aspartate Aminotransferase 23 U/L (15-37); Calcium 7.7 mg/dL (8.5-10.1); Total Protein 4.3 g/dL (6.4-8.2)
--- NOTE | 2017-11-09 08:25 | P.PNFP ---
Subjective Interval history: Patient seen and examined this morning. No acute events overnight per staff. Patient states that she slept well last night after moving her trazodone to nighttime dosing as well as starting mirtazapine. Her mood appears improved, however she continues to be oriented PPT 2. She has no acute complaints this morning. She is unable to complete a thorough review of systems she only answers intermittent questioning, however she is able to communicate that she is not in pain. <Chaz Vivar H - 11/09/17 08:50> Results - Labs Result diagrams: 11/09/17 05:40 11/09/17 05:40 <John Joseph - 11/09/17 14:17> Abnormal lab results 11/08/17 11/08/17 11/09/17 Range/Units 15:41 17:15 05:40 WBC 14.6 H (4.0-11.0) th/mm3 RBC 2.98 L (4.00-5.30) mil/mm3 Hgb 10.0 L 9.7 L (11.6-15.3) gm/dL Hct 31.1 L 26.9 L (35.0-46.0) % MCHC 36.2 H (32.0-36.0) % RDW 18.0 H (11.6-17.2) % Plt Count 116 L (150-450) th/mm3 Neut % (Auto) 83.9 H (16.0-70.0) % Lymph % (Auto) 8.2 L (9.0-44.0) % Neut # (Auto) 12.2 H (1.8-7.7) th/mm3 Chloride (98-107) meq/L Carbon Dioxide (21.0-32.0) meq/L Creatinine (0.50-1.00) mg/dL Estimated GFR (>89) mL/min POC Glucose 146 H (68-110) mg/dl Random Glucose (74-106) mg/dL Calcium (8.5-10.1) mg/dL Alkaline Phosphatase (45-117) U/L Total Protein (6.4-8.2) g/dL Albumin (3.4-5.0) g/dL 11/09/17 11/09/17 Range/Units 05:40 07:02 WBC (4.0-11.0) th/mm3 RBC (4.00-5.30) mil/mm3 Hgb (11.6-15.3) gm/dL Hct (35.0-46.0) % MCHC (32.0-36.0) % RDW (11.6-17.2) % Plt Count (150-450) th/mm3 Neut % (Auto) (16.0-70.0) % Lymph % (Auto) (9.0-44.0) % Neut # (Auto) (1.8-7.7) th/mm3 Chloride 111 H (98-107) meq/L Carbon Dioxide 17.8 L (21.0-32.0) meq/L Creatinine 1.04 H (0.50-1.00) mg/dL Estimated GFR 67 L (>89) mL/min POC Glucose 134 H (68-110) mg/dl Random Glucose 654 H* (74-106) mg/dL Calcium 7.7 L (8.5-10.1) mg/dL Alkaline Phosphatase 134 H (45-117) U/L Total Protein 4.3 L (6.4-8.2) g/dL Albumin 0.8 L (3.4-5.0) g/dL Short CBC 11/08/17 11/09/17 Range/Units 17:15 05:40 WBC 14.6 H (4.0-11.0) th/mm3 Hgb 10.0 L 9.7 L (11.6-15.3) gm/dL Hct 31.1 L 26.9 L (35.0-46.0) % Plt Count 116 L (150-450) th/mm3 BMP 11/09/17 05:40 Sodium 137 Potassium 5.1 Chloride 111 H Carbon Dioxide 17.8 L BUN 12 Creatinine 1.04 H Calcium 7.7 L Cardiac Enzymes 11/09/17 Range/Units 05:40 Total Creatine Kinase 29 (26-192) U/L Liver Function 11/09/17 Range/Units 05:40 Total Bilirubin 0.4 (0.2-1.0) mg/dL AST 23 (15-37) U/L ALT 21 (10-53) U/L Alkaline Phosphatase 134 H (45-117) U/L Albumin 0.8 L (3.4-5.0) g/dL <John Joseph - 11/09/17 14:17> Abnormal lab results 11/08/17 11/08/17 11/08/17 Range/Units 09:40 09:40 15:41 WBC 14.7 H (4.0-11.0) th/mm3 RBC 3.06 L (4.00-5.30) mil/mm3 Hgb 8.7 L (11.6-15.3) gm/dL Hct 28.9 L (35.0-46.0) % MCHC 30.2 L (32.0-36.0) % RDW 18.4 H (11.6-17.2) % Plt Count 126 L (150-450) th/mm3 Neut % (Auto) 81.7 H (16.0-70.0) % Lymph % (Auto) (9.0-44.0) % Neut # (Auto) 12.0 H (1.8-7.7) th/mm3 Chloride 111 H (98-107) meq/L Carbon Dioxide 17.2 L (21.0-32.0) meq/L Creatinine 1.04 H (0.50-1.00) mg/dL Estimated GFR 67 L (>89) mL/min POC Glucose 146 H (68-110) mg/dl Random Glucose 695 H* D (74-106) mg/dL Calcium 7.5 L (8.5-10.1) mg/dL AST 14 L (15-37) U/L Alkaline Phosphatase 133 H (45-117) U/L Total Protein 4.2 L (6.4-8.2) g/dL Albumin 0.8 L (3.4-5.0) g/dL 11/08/17 11/09/17 11/09/17 Range/Units 17:15 05:40 05:40 WBC 14.6 H (4.0-11.0) th/mm3 RBC 2.98 L (4.00-5.30) mil/mm3 Hgb 10.0 L 9.7 L (11.6-15.3) gm/dL Hct 31.1 L 26.9 L (35.0-46.0) % MCHC 36.2 H (32.0-36.0) % RDW 18.0 H (11.6-17.2) % Plt Count 116 L (150-450) th/mm3 Neut % (Auto) 83.9 H (16.0-70.0) % Lymph % (Auto) 8.2 L (9.0-44.0) % Neut # (Auto) 12.2 H (1.8-7.7) th/mm3 Chloride 111 H (98-107) meq/L Carbon Dioxide 17.8 L (21.0-32.0) meq/L Creatinine 1.04 H (0.50-1.00) mg/dL Estimated GFR 67 L (>89) mL/min POC Glucose (68-110) mg/dl Random Glucose 654 H* (74-106) mg/dL Calcium 7.7 L (8.5-10.1) mg/dL AST (15-37) U/L Alkaline Phosphatase 134 H (45-117) U/L Total Protein 4.3 L (6.4-8.2) g/dL Albumin 0.8 L (3.4-5.0) g/dL 11/09/17 Range/Units 07:02 WBC (4.0-11.0) th/mm3 RBC (4.00-5.30) mil/mm3 Hgb (11.6-15.3) gm/dL Hct (35.0-46.0) % MCHC (32.0-36.0) % RDW (11.6-17.2) % Plt Count (150-450) th/mm3 Neut % (Auto) (16.0-70.0) % Lymph % (Auto) (9.0-44.0) % Neut # (Auto) (1.8-7.7) th/mm3 Chloride (98-107) meq/L Carbon Dioxide (21.0-32.0) meq/L Creatinine (0.50-1.00) mg/dL Estimated GFR (>89) mL/min POC Glucose 134 H (68-110) mg/dl Random Glucose (74-106) mg/dL Calcium (8.5-10.1) mg/dL AST (15-37) U/L Alkaline Phosphatase (45-117) U/L Total Protein (6.4-8.2) g/dL Albumin (3.4-5.0) g/dL Short CBC 11/08/17 11/08/17 11/09/17 Range/Units 09:40 17:15 05:40 WBC 14.7 H 14.6 H (4.0-11.0) th/mm3 Hgb 8.7 L 10.0 L 9.7 L (11.6-15.3) gm/dL Hct 28.9 L 31.1 L 26.9 L (35.0-46.0) % Plt Count 126 L 116 L (150-450) th/mm3 BMP 11/08/17 11/09/17 09:40 05:40 Sodium 137 137 Potassium 4.7 D 5.1 Chloride 111 H 111 H Carbon Dioxide 17.2 L 17.8 L BUN 10 12 Creatinine 1.04 H 1.04 H Calcium 7.5 L 7.7 L Liver Function 11/08/17 11/09/17 Range/Units 09:40 05:40 Total Bilirubin 0.2 0.4 (0.2-1.0) mg/dL AST 14 L 23 (15-37) U/L ALT 16 21 (10-53) U/L Alkaline Phosphatase 133 H 134 H (45-117) U/L Albumin 0.8 L 0.8 L (3.4-5.0) g/dL <Chaz Vivar H - 11/09/17 08:25> Physical Exam Vital signs: Vital Signs 11/08/17 16:00 11/08/17 20:00 11/09/17 00:00 Temperature 97.5 F L 97.3 F L Pulse Rate 127 H 114 H 109 H Respiratory Rate 14 18 18 Blood Pressure 160/76 H 124/75 140/76 Pulse Oximetry 100 100 100 11/09/17 04:00 11/09/17 08:00 Temperature 98.5 F 97.2 F L Pulse Rate 112 H 133 H Respiratory Rate 18 18 Blood Pressure 150/84 H 125/69 Pulse Oximetry 99 100 Intake & Output 11/08/17 11/09/17 11/09/17 18:59 06:59 18:59 Intake Total 300 / 300 3510.2 / 3510.2 Output Total 800 / 800 1700 / 1700 300 / 300 Balance -500 / -500 1810.2 / 1810.2 -300 / -300 Weight 112.3 kg Intake: IV 300 / 300 3210.2 / 3210.2 D5W/1/2 NS Inj 1,000 ML @ 140 1000 / 1000 mls/hr IV.CONT .Q7H9M [facility] Rx#: [id number] Maxipime Inj 2,000 MG In NS Inj 200 / 200 100 / 100 100 ML @ 200 mls/hr IV.SIG Q8H [facility] Rx#:[id number] Cubicin Inj 800 MG In NS Inj 100 / 100 100 / 100 100 ML @ 200 mls/hr IV.SIG Q24H [facility] Rx#:[id number] MVI-12 Inj 10 ML Folvite Inj 1 2010.2 / 2010.2 MG In TPN Fluid 2 Liter 2,000 ML @ 65 mls/hr IV.SIG Q24H [facility] Rx#:[id number] Oral 300 / 300 Output: Urine 1700 / 1700 Urine Amount (Catheter) 800 / 800 300 / 300 Indwelling Urethral Catheter 800 / 800 300 / 300 Other: # Voids 1 Date of Last Bowel Movement 11/05/17 11/09/17 # Bowel Movements 1 <John Joseph - 11/09/17 14:17> Vital Signs 11/08/17 12:00 11/08/17 16:00 11/08/17 20:00 Temperature 97.6 F 97.5 F L Pulse Rate 124 H 127 H 114 H Respiratory Rate 16 14 18 Blood Pressure 122/80 160/76 H 124/75 Pulse Oximetry 99 100 100 11/09/17 00:00 11/09/17 04:00 11/09/17 08:00 Temperature 97.3 F L 98.5 F 97.2 F L Pulse Rate 109 H 112 H 94 H Respiratory Rate 18 18 18 Blood Pressure 140/76 150/84 H 125/69 Pulse Oximetry 100 99 100 Intake & Output 11/08/17 11/09/17 11/09/17 18:59 06:59 18:59 Intake Total 300 / 300 3510.2 / 3510.2 Output Total 800 / 800 1700 / 1700 Balance -500 / -500 1810.2 / 1810.2 Weight 112.3 kg Intake: IV 300 / 300 3210.2 / 3210.2 D5W/1/2 NS Inj 1,000 ML @ 140 1000 / 1000 mls/hr IV.CONT .Q7H9M [facility] Rx#: [id number] Maxipime Inj 2,000 MG In NS Inj 200 / 200 100 / 100 100 ML @ 200 mls/hr IV.SIG Q8H [facility] Rx#:[id number] Cubicin Inj 800 MG In NS Inj 100 / 100 100 / 100 100 ML @ 200 mls/hr IV.SIG Q24H [facility] Rx#:[id number] MVI-12 Inj 10 ML Folvite Inj 1 2009.2009.2 MG In TPN Fluid 2 Liter 2,000 ML @ 65 mls/hr IV.SIG Q24H [facility] Rx#:[id number] Oral 300 / 300 Output: Urine 1700 / 1700 Urine Amount (Catheter) 800 / 800 Indwelling Urethral Catheter 800 / 800 Other: # Voids 1 Date of Last Bowel Movement 11/05/17 # Bowel Movements 1 <Chaz Vivar H - 11/09/17 08:25> Narrative: GENERAL: Morbidly obese -[place] female lying in bed in no acute distress watching television upon entering the room. SKIN: Cool and dry. No rash. Lower abdominal and bilateral lower extremity wounds currently bandaged with multiple ABD pads and sterile bandage. No acute signs of purulent drainage or acute bleeding. Bedding overlying affected area is partly saturated. PICC line inserted in the right upper extremity without surrounding erythema, warmth, or other signs of infection. HEENT: Atraumatic, normocephalic with extraocular motions intact. No rhinorrhea.No visible lymphadenopathy or jugulovenous distension appreciated. CARDIOVASCULAR: Tachycardic rate (baseline) and regular rhythm without obvious murmurs, gallops, or rubs. RESPIRATORY: Clear to anterior auscultation bilaterally without obvious CRW. Breath sounds difficult to auscultate due to body habitus. No increased work of breathing. GASTROINTESTINAL: Abdomen diffuse, soft with soft bowel sounds likely due to body habitus. Patient nontender in the upper 2 quadrants, deferred tenderness evaluation and lower quadrants due to wounds. No masses appreciated. Rectal tube in place with liquid fecal material in reservoir. Hopper catheter in place with urinary output in reservoir. MUSCULOSKELETAL: No cyanosis. Stable bilateral lower extremities with 2+ pitting edema. No calf tenderness. Left knee effusion stable and nontender to palpation. SCDs in place. NEURO/PSYCH: Afocal. Patient awake and alert, however only oriented to PPT 2, baseline. Unable to complete review of systems but does state she is not in pain and has no complaints. <Chaz Vivar 11/09/17 08:50> - Urinary Catheter Management Female External Cath placed during this visit: no <John Joseph 11/09/17 14:17> no <Chaz Vivar 11/09/17 13:06> Indwelling Urethral Catheter Cath placed during this visit: no <John Joseph 11/09/17 14:17> yes, but has since been removed by the nurse <Chaz Vivar 11/09/17 13:06> Reason for continuing: Severe pressure ulcer/wound <Chaz Vivar 11/09/17 08:25> Insertion date: 09/27/17 <Chaz Vivar 11/09/17 08:25> Insertion time: 08:20 <Chaz Vivar 11/09/17 08:25> Removal date: 10/05/17 <Chaz Vivar 11/09/17 08:25> Removal time: 17:30 <Chaz Vivar 11/09/17 08:25> Assessment and Plan - Assessment (1) Open wound of abdominal wall Code(s): S31.109A - Unspecified open wound of abdominal wall, unspecified quadrant without penetration into peritoneal cavity, initial encounter Status : Acute (2) Cellulitis of knee, left Code(s): L03.116 - Cellulitis of left lower limb Status: Acute (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 - Infection and inflammatory reaction due to unspecified internal joint prosthesis, initial encounter Status: Suspected (4) Thrombocytopenia Code(s): D69.6 - Thrombocytopenia, unspecified Status: Acute (5) Creatinine elevation Code(s): R79.89 - Other specified abnormal findings of blood chemistry Status : Acute (6) Poor nutrition Code(s): E63.9 - Nutritional deficiency, unspecified Status: Acute (7) Hyperglycemia Code(s): R73.9 - Hyperglycemia, unspecified Status: Acute (8) Hypokalemia Code(s): E87.6 - Hypokalemia Status: Resolved (9) Anemia Code(s): D64.9 - Anemia, unspecified Status: Resolved (10) C. difficile diarrhea Code(s): A04.72 - Enterocolitis due to Clostridium difficile, not specified as recurrent Status: Acute (11) Fall Code(s): W19.XXXA - Unspecified fall, initial encounter Status: Acute (12) Hypertension Code(s): I10 - Essential (primary) hypertension Status: Acute (13) Schizophrenia Code(s): F20.9 - Schizophrenia, unspecified Status: Chronic (14) Tachycardia Code(s): R00.0 - Tachycardia, unspecified Status: Chronic (15) Nutrition, metabolism, and development symptoms Code(s): R63.8 - Other symptoms and signs concerning food and fluid intake Status: Acute <John Joseph - 11/09/17 14:17> (1) Open wound of abdominal wall Code(s): S31.109A - Unspecified open wound of abdominal wall, unspecified quadrant without penetration into peritoneal cavity, initial encounter Status : Acute Plan: -Wound Culture 09/27/17: Pseudomonas and Group B Step -Blood Cultures 10/24/17: Negative -Tissue Cultures 10/09/17: Negative -Abdominal wound culture 11/01/17: Group D Enterococcus, sensitive to Daptomycin -Blood Culture 11/07/17 per TPN protocol: Pending -Infectious disease consulted -Continue cefepime until 11/08/17 -Continue oral vancomycin for Clostridium difficile until cefepime is discontinued on 11/08/17 -Continue Daptomycin for VRE on ABD wound culture on 11/03/17; monitor CK levels -General surgery consulted -Surgical debridement 10/09, wound VAC applied. -VAC changed 10/12 removed 10/15. -Debridement, irrigation, with suturing performed on 10/16. -I&D of abdomen and bilateral thighs, placement of Amniox with wound closure on 11/01/17 -Dressing changes per general surgery Medications: -Cefepime IV (09/29/17-11/08/17) per ID; PICC line placed for antibiotic administration at rehab once wounds are stable for DC -Daptomycin IV for suspected VRE per ID (11/03/17- ) -Patient received 2 weeks of Keflex 500mg PO by Orthopedic surgery as outpatient prior to admission -Levaquin stopped 10/20 per ID -Diflucan course completed 10/18 (2) Cellulitis of knee, left Code(s): L03.116 - Cellulitis of left lower limb Status: Acute Plan: -ID consulted, recommend Cefepime until 11/08/17 -Orthopedic surgery consulted, no further recommendations at this time Medications: -Cefepime IV (09/29/17-11/08/17) per ID; PICC line placed for antibiotic administration at rehab once wounds are stable for DC -Patient received 2 weeks of Keflex 500mg PO by Orthopedic surgery as outpatient prior to admission -Levaquin stopped 10/20 per ID -Diflucan course completed 10/18 (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 NGTD, cleared from ID standpoint to go rehab with IV Cefepime until 11/08/17 -Orthopedics ([place] for Dr. 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 She completed rehabilitation and was discharged home August 23. Patient was on approximately 2 weeks of po Keflex 500 mg. Per Ortho, examination of left knee shows no evidence of infection. (4) Thrombocytopenia Code(s): D69.6 - Thrombocytopenia, unspecified Status: Acute Plan: Patient with decreasing platelet count -No signs of acute bruising on limited skin exam due to body habitus -Patient recently started Daptomycin and TPN feeding -Patient currently receiving heparin flushes only via PICC line -Possibly due to ABX, will discuss with ID -Continue to monitor (5) Creatinine elevation Code(s): R79.89 - Other specified abnormal findings of blood chemistry Status : Acute Plan: Patient with acute creatinine elevation with starting TPN. -Patient with continued appropriate urinary output -Electrolytes WNL -Possibly due to ABX, will discuss with ID -Continue to monitor Creatinine (6) Poor nutrition Code(s): E63.9 - Nutritional deficiency, unspecified Status: Acute Plan: -Patient with poor nutritional status during hospitalization -Severe concern of poor wound healing secondary to poor nutritional status -[employer] consulted for calorie count and nutritional guidance, which has been limited due to NPO status prior to surgery, however patient continues to have poor intake -Multivitamin IV added with Hermes supplementation BID -Albumin levels continued to be decreased -Patient unable to receive 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 Briefly discussed with surgery about the possibility of a JG tube versus surgical placement of PEG tube Patient to start TPN, Clinimix E 08/05 @ 65 mls/hr with 20% lipids 250 mls 2x/ week (11/07/17- ) -Plan for possible J tube once albumin is improved with TPN feedings (7) Hyperglycemia Code(s): R73.9 - Hyperglycemia, unspecified Status: Acute Plan: Patient with new hyperglycemia on CMP after starting TPN without history of diabetes. -Suspect laboratory evaluation was drawn from TPN line falsely elevating glucose -Repeat POC glucose WNL -Continue to monitor and treat as necessary (8) Hypokalemia Code(s): E87.6 - Hypokalemia Status: Resolved Plan: -Patient with hypokalemia during hospitalization. Appears to be not tolerating ER capsules as they were found whole in her rectal tube reservoir. Medications: -Magnesium 64 mg daily -Hold Potassium Chloride 40mEq BID (Non-ER/Enteric Coated) as potassium has risen with addition of TPN -Plan to treat as necessary (9) Anemia Code(s): D64.9 - Anemia, unspecified Status: Resolved Plan: -Patient found to have asymptomatic anemia H/H of 7/20.3 with MCV of 82 on -Rectal tube and Hopper catheter without any signs of acute bleeding -Dressings without obvious signs of bleeding -Due to critical condition and severity of abdominal wounds with decreasing hemoglobin, 2 units PRBC ordered -Patient did receive Lasix between units to assist with possible fluid overload -Posttransfusion H/H 11.6/34.7 on 10/30/17 -Continue to monitor (10) C. difficile diarrhea Code(s): A04.72 - Enterocolitis due to Clostridium difficile, not specified as recurrent Status: Acute Plan: -C diff cultures positive 10/19/17 -Vancomycin PO 125 4 times daily -Continue with probiotics. -Rectal tube in place (11) Fall Code(s): W19.XXXA - Unspecified fall, initial encounter Status: Acute Plan: Patient with fall on 10/19/17. No loss of consciousness, no head injury, left knee and ankle pain. -Knee x-ray- Prosthesis in place, No abnormality appreciated -Ankle x-ray- No abnormality appreciated -Patient to continue with PT (12) Hypertension Code(s): I10 - Essential (primary) hypertension Status: Acute Plan: History of hypertension -Continue to monitor -Clonidine PRN for BP > 180/100 (13) Schizophrenia Code(s): F20.9 - Schizophrenia, unspecified Status: Chronic Plan: -Psychiatry consulted upon admission Medications: -Continue Abilify 30 mg for psychosis -Continue buspirone 30 mg, trazodone 100 mg and Cymbalta 60 mg -Started Mirtazapine 15mg QHS to assist with mood as well as appetite stimulant -Hold anticholinergics per Psych (14) Tachycardia Code(s): R00.0 - Tachycardia, unspecified Status: Chronic Plan: -Patient with chronic history of tachycardia -EKG 09/27/17: Sinus tachycardia with rate of [address] or interval changes. (Per medical team read) Medications: -Continue home diltiazem and carvedilol (15) Nutrition, metabolism, and development symptoms Code(s): R63.8 - Other symptoms and signs concerning food and fluid intake Status: Acute Plan: Fluids: TPN as below, tolerating oral fluids Electrolytes: Replete as needed. Nutrition: Cardiac diet with Ensure, continue to monitor po intake, supplement with ensure. Encouraged patient that she needed to increase p.o. intake in order to heal -[employer] consulted for nutritional guidance -TPN Clinimix E 08/05 @ 65 mls/hr with 20% lipids 250 mls 2x/week (11/07/17- ) DVT prophylaxis: SCDs, Defer medical prophylaxis due to anemia Continue to work with OT/PT to improve ambulation <Chaz Vivar H - 11/09/17 13:05> - Assessment and Plan . <Chaz Vivar - 11/09/17 08:25> - Attending Attestation Patient examined independently and case discussed with resident physician I have read the above note and agree with the assessment/plan as discussed with me I was involved in all medical decision making for this patient John Joseph MD <John Joseph - 11/09/17 14:17> <Chaz Vivar H - Last Filed: 11/09/17 13:05> (1) Open wound of abdominal wall Qualifiers: Encounter type: initial encounter Qualified Code(s): S31.109A - Unspecified open wound of abdominal wall, unspecified quadrant without penetration into peritoneal cavity, initial encounter (9) Anemia Qualifiers: Anemia type: unspecified type Qualified Code(s): D64.9 - Anemia, unspecified (12) Hypertension Qualifiers: Hypertension type: essential hypertension Qualified Code(s): I10 - Essential (primary) hypertension <John Joseph - Last Filed: 11/09/17 14:17> (1) Open wound of abdominal wall Qualifiers: Encounter type: initial encounter Qualified Code(s): S31.109A - Unspecified open wound of abdominal wall, unspecified quadrant without penetration into peritoneal cavity, initial encounter (9) Anemia Qualifiers: Anemia type: unspecified type Qualified Code(s): D64.9 - Anemia, unspecified (12) Hypertension Qualifiers: Hypertension type: essential hypertension Qualified Code(s): I10 - Essential (primary) hypertension <Chaz Vivar H - Last Filed: 11/09/17 13:05> (1) Open wound of abdominal wall Qualifiers: Encounter type: initial encounter Qualified Code(s): S31.109A - Unspecified open wound of abdominal wall, unspecified quadrant without penetration into peritoneal cavity, initial encounter (9) Anemia Qualifiers: Anemia type: unspecified type Qualified Code(s): D64.9 - Anemia, unspecified (12) Hypertension Qualifiers: Hypertension type: essential hypertension Qualified Code(s): I10 - Essential (primary) hypertension <John Joseph - Last Filed: 11/09/17 14:17> (1) Open wound of abdominal wall Qualifiers: Encounter type: initial encounter Qualified Code(s): S31.109A - Unspecified open wound of abdominal wall, unspecified quadrant without penetration into peritoneal cavity, initial encounter (9) Anemia Qualifiers: Anemia type: unspecified type Qualified Code(s): D64.9 - Anemia, unspecified (12) Hypertension Qualifiers: Hypertension type: essential hypertension Qualified Code(s): I10 - Essential (primary) hypertension
[2017-11-09] MEDS: dilTIAZem 60 MG Tablet PO SCH ×3 (09:34→18:17)
[2017-11-09] MEDS: Metoprolol Tartrate 25 MG Tablet PO SCH ×2 (09:35→22:46)
[2017-11-09] MEDS: Folic Acid 1 MG Tablet PO SCH (09:37)
[2017-11-09] MEDS: Lactobacillus Acidophilus/L. Spores Tablet PO SCH ×2 (09:37→22:48)
[2017-11-09] MEDS: Pantoprazole Sodium 20 MG DR Tablet PO SCH (09:37)
[2017-11-09] MEDS: Duloxetine 60 MG DR Capsule PO SCH (09:38)
[2017-11-09] MEDS: Heparin Central Flush 100 UNIT/ML 5 ML Vial IV.FLUSH SCH (09:41)
--- NOTE | 2017-11-09 09:51 | MP ---
cc: Jose Schneider MD DATE OF OPERATION: 11/01/2017 PREOPERATIVE DIAGNOSIS: Bilateral lower thigh and abdominal wound, approximately 100 cm, status post closure. POSTOPERATIVE DIAGNOSIS: Bilateral lower thigh and abdominal wound, approximately 100 cm, status post closure. PROCEDURE PERFORMED: Incision and debridement with excisional debridement of abdomen and bilateral lower thighs with abdominal and bilateral lower thigh closure with placement of NEOX Cord. Sizes used two at 6 x 3 cm, one at 4 x 3 cm, one at 3 x 3 cm, total of 57 square cm knee NEOX Cord. Excisional debridement of subcutaneous and soft tissues. SURGEON: Jose Schneider MD DISASTER DIRECTOR: See OR sheet. ANESTHESIA: GETA. INTRAVENOUS FLUIDS: See anesthesia sheet. ESTIMATED BLOOD LOSS: 20 mL. DRAINS: None. COMPLICATIONS: None. WOUND CLASSIFICATION: Infected. SPECIMENS: Wound culture swab sent for culture and sensitivity, and Gram stain. FINDINGS: Dehiscence of abdominal wound. Failure to close large abdominal wound and bilateral lower thigh wound. INDICATIONS: The patient is a 52-year-old female, who presents with initial left knee infection for which she underwent antibiotic treatment, and followed by orthopedics. She developed a superficial soft tissue skin infection and ulceration of abdominal wall, for which she underwent several debridements with reapproximation and VAC placement. VAC was removed and attempts for complete closure. The patient did have a fall, was noted a dehiscence of the wound, and the patient also severely malnourished, which further inhibited wound healing, in light of the presence of infection, also hindrance of wound closure and healing. Therefore, decision was made for preoperative evaluation with examination under anesthesia, further excisional debridement, placement of NEOX Cord for assistance in wound closure, healing, and washout. Discussed with the patient's in detail along with the patient at bedside. They are agreeable and would like to proceed with operation. DETAILS OF PROCEDURE: The patient was taken to the operating suite, placed in the lithotomy position. She was prepped and draped in the usual sterile fashion after induction of general endotracheal anesthesia. Brief timeout done, stating correct patient, procedure, and surgical site. We were all in agreement with this. Examination of the wounds noted that left proximal thigh had some dehiscence and open skin wound. Other wounds noted to be intact; however, noted poor skin healing and skin had only healed together in several areas. Sutures and nedra were removed. The wounds were opened up and irrigated. Excisional debridement with Versajet in order to excise down to healthy good bleeding tissue. This was done at all exposed wound areas. After full washout, the NEOX Cord was obtained, and cut to multiple strips, and placed within the depths of the wound bed. These were secured in place with 3-0 chromic sutures. Hemostasis was also obtained as well. Total area encompassed noted to be 100 square cm, 57 square cm was used of NEOX Cord in multiple strips along the wound bed, again to promote healing. The abdomen was reapproximated using interrupted vertical mattress #1 nylons and nedra used as well for further approximation. The right thigh was done in similar fashion in order to approximate and assist wound healing and closure for the thighs. The left thigh was difficult to get complete apposition. Therefore, 3 x 3 piece of NEOX Cord cut to strip was placed and attached with a 3-0 chromic. A piece of Adaptic was placed for mesh and stapled to wound edges. The skin was completely cleaned and then sterile dressings including Maxon dressing were placed in order to keep wounds completely dry, and isolated from stool and contamination. The patient tolerated procedure well. There were no intraoperative complications. All lap and instrument counts were correct at the end of the procedure. The patient was extubated and taken stable to PACU. MD RAY Meier/janel , 09:18 AM , 09:28 AM
[2017-11-09 10:22] LABS: Magnesium 1.6 mg/dL (1.5-2.5)
[2017-11-09 10:25] LABS: Phosphorus 3.6 mg/dL (2.5-4.9)
[2017-11-09] MEDS: DAPTOmycin Inj 800 MG in Sodium Chlor 0.9% Inj 100 ML IV.SIG SCH (11:00)
--- NOTE | 2017-11-09 17:29 | P.PNID ---
Subjective Remarks: ID coverage. Follow up. 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 Post op it appears she was discharged to a rehab. She was discharged from the rehab to home with her on August 23. Patient reports she lives at home with her who is on disability. Unsure of nature of disability at this time and his ability to take care of her. She was reportedly able to ambulate on her own initially followed by weakness and need for walker and then to a point where she did not want to get out of bed. It has been reported to others that she had some discharge at the left surgical site area and ortho surgeon prescribed oral keflex which reportedly lead to some improvement. She reportedly completed a week of antibiotic treatment with last day scheduled for today with some improvement in her knee pain. However her stated that she was starting to have more drainage from her knee just over the past day or so. He had pointed to several areas that had been draining pus from just above and just below the knee. He stated that a cup full of pus would drain at a time. Additionally the abdominal fold wounds appear to have been present for atleast 3 weeks now. With this background patient presented to the ED with complaints of worsening shortness of breath and mental status accompanied with symptoms of diarrhea (3 days, non-bloody) and decreased p.o. intake (5 days). She was also brought into the hospital due to infection of her knee that improved with Keflex p.o but now has returned with new additional drainage over the past few days. ID consulted for evaluation and Mment of Left knee prosthetic joint infection and neutropenia. Patient underwent incision and debridement of the inferior abdominal wall and proximal inner thighs on 10/12/2017. Receiving IV antibiotics for left knee infection/C difficile. CT scan showed small joint effusion and subcutaneous edema of the fat at the left knee. Overnight events reviewed. ebony RN Patient is awake, alert and communicative. Denies nausea vomiting. Denies chills. No fever. Had few sips of ensure but otherwise no desire to eat. ebony [facility] resident: Platelets low,Cr increased. Antibiotics: Cefepime IV Dapto IV Vancomycin PO. Lines: Lines ok. Past Medical History: reviewed Allergies/Adverse Reactions: Allergies amoxicillin Allergy (Verified 09/27/17 17:54) Swelling Objective Vital Signs 11/08/17 20:00 11/09/17 00:00 11/09/17 04:00 Temperature 97.3 F L 98.5 F Pulse Rate 114 H 109 H 112 H Respiratory Rate 18 18 18 Blood Pressure 124/75 140/76 150/84 H Pulse Oximetry 100 100 99 11/09/17 08:00 11/09/17 12:00 11/09/17 15:40 Temperature 97.2 F L 98.1 F Pulse Rate 133 H 97 H 101 H Respiratory Rate 18 18 Blood Pressure 125/69 127/68 Pulse Oximetry 100 98 11/09/17 16:00 Temperature 98.8 F Pulse Rate 103 H Respiratory Rate 13 Blood Pressure 138/89 Pulse Oximetry 100 Intake & Output 11/08/17 11/09/17 11/09/17 18:59 06:59 18:59 Intake Total 300 / 300 3510.2 / 3510.2 Output Total 800 / 800 1700 / 1700 300 / 300 Balance -500 / -500 1810.2 / 1810.2 -300 / -300 Weight 112.3 kg Intake: IV 300 / 300 3210.2 / 3210.2 D5W/1/2 NS Inj 1,000 ML @ 140 1000 / 1000 mls/hr IV.CONT .Q7H9M [facility] Rx#: [id number] Maxipime Inj 2,000 MG In NS Inj 200 / 200 100 / 100 100 ML @ 200 mls/hr IV.SIG Q8H [facility] Rx#:[id number] Cubicin Inj 800 MG In NS Inj 100 / 100 100 / 100 100 ML @ 200 mls/hr IV.SIG Q24H [facility] Rx#:[id number] MVI-12 Inj 10 ML Folvite Inj 1 2009.2 / 2010.2 MG In TPN Fluid 2 Liter 2,000 ML @ 65 mls/hr IV.SIG Q24H [facility] Rx#:[id number] Oral 300 / 300 Output: Urine 1700 / 1700 Urine Amount (Catheter) 800 / 800 300 / 300 Indwelling Urethral Catheter 800 / 800 300 / 300 Other: # Voids 1 Date of Last Bowel Movement 11/05/17 11/09/17 # Bowel Movements 1 11/08/17 09:40 Blood - Other Aerobic Blood Culture - Preliminary No growth in 1 day 11/08/17 09:40 Blood - Other Anaerobic Blood Culture - Preliminary No growth in 1 day 11/08/17 06:50 Blood - Other Aerobic Blood Culture - Preliminary No growth in 1 day 11/08/17 06:50 Blood - Other Anaerobic Blood Culture - Preliminary No growth in 1 day 11/01/17 17:45 Wound - Abdominal Acid Fast Bacilli Smear - Final No acid fast bacilli seen 11/01/17 17:45 Wound - Abdominal Mycobacterial Culture - Preliminary No growth in 1 week 11/01/17 17:45 Wound - Abdominal Fungal Smear - Final No fungal elements seen 11/01/17 17:45 Wound - Abdominal Fungal Culture - Preliminary No growth in 1 week 10/09/17 15:49 Tissue - Abdominal Fungal Smear - Final No fungal elements seen 10/09/17 15:49 Tissue - Abdominal Fungal Culture - Final No growth in 4 weeks 10/09/17 15:49 Tissue - Abdominal Acid Fast Bacilli Smear - Final No acid fast bacilli seen 10/09/17 15:49 Tissue - Abdominal Mycobacterial Culture - Preliminary No growth in 4 weeks Lab - Hematology Results 11/08/17 11/08/17 11/08/17 06:50 09:40 17:15 WBC 14.7 H RBC 3.06 L Hgb 8.7 L 10.0 L Hct 28.9 L 31.1 L MCV 94.5 D MCH 28.6 MCHC 30.2 L RDW 18.4 H Plt Count 126 L MPV 7.7 Prelim Diff (Auto) Neut % (Auto) 81.7 H Lymph % (Auto) 10.5 Charlton % (Auto) 5.7 Eos % (Auto) 1.8 Baso % (Auto) 0.3 Neut # (Auto) 12.0 H Lymph # (Auto) 1.5 Charlton # (Auto) 0.8 Eos # (Auto) 0.3 Baso # (Auto) 0.0 WBC Differential . Diff Scan Differential Comment Auto diff final 11/09/17 05:40 WBC 14.6 H RBC 2.98 L Hgb 9.7 L Hct 26.9 L MCV 90.3 D MCH 32.7 MCHC 36.2 H RDW 18.0 H Plt Count 116 L MPV 8.0 Prelim Diff (Auto) Slide review pending Neut % (Auto) 83.9 H Lymph % (Auto) 8.2 L Charlton % (Auto) 5.6 Eos % (Auto) 2.0 Baso % (Auto) 0.3 Neut # (Auto) 12.2 H Lymph # (Auto) 1.2 Charlton # (Auto) 0.8 Eos # (Auto) 0.3 Baso # (Auto) 0.0 WBC Differential . Diff Scan Auto diff confirmed Differential Comment . Lab - Chemistry Results 11/08/17 11/08/17 11/09/17 09:40 15:41 05:40 Sodium 137 137 Potassium 4.7 D 5.1 Chloride 111 H 111 H Carbon Dioxide 17.2 L 17.8 L Anion Gap 9 8 BUN 10 12 Creatinine 1.04 H 1.04 H Estimated GFR 67 L 67 L POC Glucose 146 H Random Glucose 695 H* D 654 H* Calcium 7.5 L 7.7 L Phosphorus Magnesium Total Bilirubin 0.2 0.4 AST 14 L 23 ALT 16 21 Alkaline Phosphatase 133 H 134 H Total Creatine Kinase Total Protein 4.2 L 4.3 L Albumin 0.8 L 0.8 L 11/09/17 11/09/17 11/09/17 05:40 05:40 07:02 Sodium Potassium Chloride Carbon Dioxide Anion Gap BUN Creatinine Estimated GFR POC Glucose 134 H Random Glucose Calcium Phosphorus 3.6 Magnesium 1.6 Total Bilirubin AST ALT Alkaline Phosphatase Total Creatine Kinase 29 Total Protein Albumin Imaging: ITS Impressions Tibia/Fibula X-Ray 09/27/17 00:00 CONCLUSION: No acute left leg abnormality is identified. Abdomen/Pelvis CT 09/27/17 08:10 CONCLUSION: 1. Mild hepatic steatosis. 2. Thickening of the colon secondary to lack of distention versus colitis. 3. Left lower lobe consolidation and/or atelectasis. There does appear to be a 1.4 cm cavitary area which makes consolidation likely. Head CT 09/27/17 08:10 CONCLUSION: No acute intracranial abnormality is seen. Chest CTA 09/27/17 08:22 CONCLUSION: 1. No pulmonary embolus. 2. Consolidation or atelectasis at the left lower lobe. Venous Doppler Study 09/29/17 00:00 CONCLUSION: No evidence of deep venous thrombosis. Knee CT 10/18/17 00:00 CONCLUSION: 1. Small joint effusion. 2. Nonspecific subcutaneous edema in the subcutaneous soft tissues above and below the knee. 3. No significant changes compared to the prior exam. Ankle X-Ray 10/19/17 00:00 CONCLUSION: 1. No acute fracture or dislocation. Knee X-Ray 10/19/17 00:00 CONCLUSION: 1. Total knee prosthesis in place. 2. Moderate-sized knee joint effusion. Chest X-Ray 11/04/17 00:00 CONCLUSION: Atelectasis at the lung bases. Otherwise, no acute finding is identified. Physical Exam: GENERAL: Alert and oriented, no acute distress. HEENT: Pupils reactive to light. Extraocular movements intact. No icterus. NECK: Supple without adenopathy. No swelling. LUNGS: Decreased breath sounds. HEART: Regular S1 and S2 without murmurs or rubs or gallops. ABDOMEN: Obese, soft. Nontender. Groin and abdominal area with sutures in place and dressing. Overall much better. EXTREMITIES: swelling of the left knee. less warmth. Tiny hole a couple millimeters at the lower aspect of the knee surgical incision. Purulent drainage on noted 10/19. SKIN: No diffuse rash. NEUROLOGIC: Awake and alert and oriented. Nonfocal. PSYCH: Pleasant, calm and cooperative. Assessment and Plan - Plan IMPRESSION: Neutropenic sepsis WBC now elevated. Receive Neupogen but the white blood cell count did not plateau is continuing to rise. Possibly secondary to infection. Leucopenia, pancytopenia: ? MTX, ? Psych meds, ? Sepsis contributing. Abdominal fold cellulitis/skin breakdown. Post incision and debridement and closure of skin fold. General surgery following. She dispose any panniculectomy. Groin cellulitis, Mons pubis cellulitis/skin breakdown. Neurosurgery following. H/o fall with scraping of left knee. Left knee hardware in place. CT with fluid collection. Left knee infection - prior wound culture had Pseudomonas and group B beta strep. VRE now. Diarrhea - Positive C. difficile. Acute renal failure; prerenal vs meds Thrombocytopenia: ? meds ? Cefepime has been on it few weeks. RECOMMENDATIONS: DC Cefepime IV Continue Dapto IV for Grp D Enterococcus pending ID will follow cultures to deescalate. Continue Vancomycin for C. difficile treat until completion of cefepime. dw and RN Will follow prn.
[2017-11-09] MEDS: traZODone 100 MG Tablet PO SCH (22:46)
[2017-11-09] MEDS: Mirtazapine 15 MG Tablet PO SCH (22:48)
[2017-11-09] MEDS: Multivitamin Inj 10 ML, Folic Acid Inj 1 MG in TPN Fluid 2 Liter 2,000 ML IV.SIG SCH (22:51)
--- NOTE | 2017-11-09 22:57 | XR ---
EXAM DATE: 11/09/2017 10:34 PM EDT AGE/SEX: 52 years / Female INDICATIONS: Cough. Short of breath. CLINICAL DATA: This is the patient's subsequent encounter. Patient reports that signs and symptoms h ave been present for 1 week and indicates a pain score of 6/10. MEDICAL/SURGICAL HISTORY: . Sepsis. Anemia. Neutropenia . . Cervical fusion COMPARISON: [facility] [place], CHEST 1V SINGLE AP, 11/04/2017. . FINDINGS: There is consolidation in the left lower lung with loss of delineation of the entire left hemidiaphra gm. Some air bronchograms are present. No evidence of mediastinal shift. Right lung is clear. The hea rt is normal size. CONCLUSION: Interval development of left lower lobe consolidation. Electronically signed by: Jose Bowers MD 11/09/2017 10:56 PM EDT
--- NOTE | 2017-11-09 23:19 | P.PNADD ---
Addendum to Inpatient Note Additional information: S: Called by nursing staff due to change in medical status. Staff reports that earlier in the night the patient's came in and was feeding her. After he left they know she was coughing, choking. Respiratory was called, the patient was suctioned and a long string of fluid was removed. Following this nursing reports that the patient did not have any breathing difficulty, had high O2 saturations, no acute change in mental status. They were concerned for potential aspiration. Patient was seen. She confirms that her came in earlier that night, she had difficulty swallowing food, choked on food. She denies any current shortness of breath, choking, chest pain, vomiting, abdominal pain, lightheadedness, dizziness, fever, chills. No other complaints at this time. O: GENERAL: Laying in bed, no acute distress SKIN: Warm and dry. HEAD: Normocephalic. EYES: No scleral icterus. No injection or drainage. NECK: Supple, trachea midline. No JVD or lymphadenopathy. CARDIOVASCULAR: Regular rhythm without murmurs, gallops, or rubs. RESPIRATORY: Breath sounds equal bilaterally. No accessory muscle use. GASTROINTESTINAL: Abdomen soft, non-tender, nondistended. MUSCULOSKELETAL: No cyanosis, or edema. Large wound dehiscence on left thigh. BACK: Nontender without obvious deformity. No CVA tenderness. A/P: Called for possible aspiration. Patient status post suctioning. No acute respiratory problems, no significant clinical change at this time. -Follow-up chest x-ray -we will review antibiotics if likely aspiration pneumonia -Continue to monitor respiratory status overnight
--- NOTE | 2017-11-09 23:35 | P.PNGS ---
Subjective Patient reports: no new complaints (stable, denies pain) Physical Exam Vital signs: Vital Signs 11/09/17 00:00 11/09/17 04:00 11/09/17 08:00 Temperature 97.3 F L 98.5 F 97.2 F L Pulse Rate 109 H 112 H 133 H Respiratory Rate 18 18 18 Blood Pressure 140/76 150/84 H 125/69 Pulse Oximetry 100 99 100 11/09/17 12:00 11/09/17 15:40 11/09/17 16:00 Temperature 98.1 F 98.8 F Pulse Rate 97 H 101 H 103 H Respiratory Rate 18 13 Blood Pressure 127/68 138/89 Pulse Oximetry 98 100 11/09/17 20:00 11/09/17 20:27 Temperature 98.1 F Pulse Rate 102 H 114 H Respiratory Rate 20 22 Blood Pressure Pulse Oximetry 97 Intake & Output 11/09/17 11/09/17 11/10/17 06:59 18:59 06:59 Intake Total 3510.2 / 3510.2 450 / 450 Output Total 1700 / 1700 1330 / 1330 Balance 1810.2 / 1810.2 -880 / -880 Weight 112.3 kg Intake: IV 3210.2 / 3210.2 450 / 450 D5W/1/2 NS Inj 1,000 ML @ 140 1000 / 1000 mls/hr IV.CONT .Q7H9M [facility] Rx#: [id number] Maxipime Inj 2,000 MG In NS Inj 100 / 100 100 / 100 100 ML @ 200 mls/hr IV.SIG Q8H [facility] Rx#:[id number] Cubicin Inj 800 MG In NS Inj 100 / 100 100 / 100 100 ML @ 200 mls/hr IV.SIG Q24H [facility] Rx#:[id number] Intralipid 20% Inj 250 ML @ 31. 250 / 250 25 mls/hr IV.SIG SuTh [facility] Rx#: [id number] MVI-12 Inj 10 ML Folvite Inj 1 2009.2 / 2009.2 MG In TPN Fluid 2 Liter 2,000 ML @ 65 mls/hr IV.SIG Q24H [facility] Rx#:[id number] Oral 300 / 300 Output: Urine 1700 / 1700 Estimated Blood Loss 30 / 30 Urine Amount (Catheter) 1300 / 1300 Indwelling Urethral Catheter 1300 / 1300 Wound Drainage 0 / 0 ZAMZAM Drain 0 / 0 Other: Date of Last Bowel Movement 11/09/17 # Bowel Movements 3 # Emeses 1 - Routine Abdominal Exam Present: soft (dressings c/d/i) - Routine Extremities Exam Present: full ROM (dressings clean) - Urinary Catheter Management Female External Cath placed during this visit: no Indwelling Urethral Catheter Cath placed during this visit: yes, but has since been removed by the nurse Reason for continuing: Severe pressure ulcer/wound Insertion date: 09/27/17 Insertion time: 08:20 Removal date: 10/05/17 Removal time: 17:30 Assessment and Plan - Plan s/p I and D with closure dressing changes keep incisions dry, continue wound care tx for c diff keep wounds clear of stool agree with tpn will consider operative j tube when albumin improved will follow peripherally over weekend
[2017-11-10] MEDS ORDERED: Haloperidol Inj 5 MG/ML Ampul IM ONE (02:54)
--- NOTE | 2017-11-10 03:14 | P.PNADD ---
Addendum to Inpatient Note Additional information: S: Called by nursing informed patient had remove PICC line from herself. They report that the bleeding is controlled, no other acute distress. Patient was seen and examined, she was unable to explain why she removed the PICC line from herself. She stated she wanted to go home. She could not adequately express where she was, why she was there, current medical problems. Denies any current nausea, vomiting, fever, chills, abdominal pain, chest pain, shortness of breath , lightheadedness, dizziness. Denies any AV hallucinations at this time. Denies SI/HI O: GENERAL: Laying in bed, no acute distress. SKIN: Warm and dry. Small hematoma at PICC line site. Minimal bleeding. Minimal bruising. HEAD: Normocephalic. EYES: No scleral icterus. No injection or drainage. NECK: Supple, trachea midline. No JVD or lymphadenopathy. CARDIOVASCULAR: Regular rate and rhythm without murmurs, gallops, or rubs. RESPIRATORY: Breath sounds equal bilaterally. No accessory muscle use. MUSCULOSKELETAL: No cyanosis, or edema. A/P: 52-year-old female with significant psychologic past history actively removing indwelling devices. Currently lacking capacity. -Haldol 1 mg IM now, can additional medication if continued agitation -Low threshold for soft restraints
[2017-11-10] MEDS: Duloxetine 60 MG DR Capsule PO SCH (08:20)
[2017-11-10] MEDS: dilTIAZem 60 MG Tablet PO SCH ×2 (08:20→13:31)
[2017-11-10] MEDS: Lactobacillus Acidophilus/L. Spores Tablet PO SCH (08:20)
[2017-11-10] MEDS: Metoprolol Tartrate 25 MG Tablet PO SCH (08:20)
[2017-11-10] MEDS: Folic Acid 1 MG Tablet PO SCH (08:21)
[2017-11-10] MEDS: Heparin Central Flush 100 UNIT/ML 5 ML Vial IV.FLUSH SCH (08:22)
[2017-11-10] MEDS: Pantoprazole Sodium 20 MG DR Tablet PO SCH (08:22)
--- NOTE | 2017-11-10 08:33 | P.PNFP ---
Subjective Interval history: Overnight, patient had episode of choking concerning for possible aspiration as well as disorientation resulting in her pulling out her PICC line. During the episode of agitation, patient required 1 mg of Haldol. Since that time per nursing report patient has had continued agitation, but is not pulling on her rectal/Hopper tubes at this time. She currently is not combative, however there is some concern for possible aggression by nursing staff. Patient seen and examined this early this morning. Patient currently not aggressive, but slightly agitated and disoriented PPT 1. She continuously tries to get out of bed saying she "has to go home with her sister." She is able to be redirected, however returns to the notion that she must leave today. She is able to communicate that she is not in pain has no other complaints, however a thorough review of systems is unable to be completed. Later in the morning, medical team notified by nursing staff that patient's POA and , Emile Mcclain [phone], is refusing PICC line replacement. Staff reports that he would like for her to be fully restrained so that this does not happen again. Medical team called Mr. Mcclain at the number above multiple times this morning, however contact has not been made. Patient is unable to give consent at this time as she is disoriented. Up date at 1400: Mr. Mcclain is now agreeable to PICC line placement after discussion with medical team. All questions answered and family agrees with medical plan. <Chaz Vivar H - 11/10/17 15:26> Results - Labs Result diagrams: 11/10/17 12:02 11/09/17 05:40 <John Joseph - 11/10/17 16:23> Abnormal lab results 11/09/17 11/10/17 11/10/17 Range/Units 21:10 07:29 12:02 WBC 19.0 H (4.0-11.0) th/mm3 RBC 3.20 L (4.00-5.30) mil/mm3 Hgb 9.1 L (11.6-15.3) gm/dL Hct 26.7 L (35.0-46.0) % Plt Count 111 L (150-450) th/mm3 Band Neuts % (Manual) 18 H (0-6) % Lymphocytes % (Manual) 7 L (9-44) % Monocytes % (Manual) 12 H (0-8) % Abs Neuts (Manual) 15.4 H (1.8-7.7) th/mm3 Platelet Estimate Low L (Normal) Target Cells 1+ H (None) POC Glucose 136 H 138 H (68-110) mg/dl Short CBC 11/10/17 Range/Units 12:02 WBC 19.0 H (4.0-11.0) th/mm3 Hgb 9.1 L (11.6-15.3) gm/dL Hct 26.7 L (35.0-46.0) % Plt Count 111 L (150-450) th/mm3 <John Joseph - 11/10/17 16:23> Abnormal lab results 11/09/17 11/10/17 Range/Units 21:10 07:29 POC Glucose 136 H 138 H (68-110) mg/dl Cardiac Enzymes 11/09/17 Range/Units 05:40 Total Creatine Kinase 29 (26-192) U/L <Chaz Vivar - 11/10/17 08:33> - Imaging Impressions Chest X-Ray 11/09/17 00:00 CONCLUSION: Interval development of left lower lobe consolidation. Chest X-Ray 11/10/17 15:16 CONCLUSION: 1. Left upper extremity PICC distal tip at the junction of the SVC and brachiocephalic vein. 2. Bibasilar airspace opacity could represent atelectasis or consolidation. <John Joseph 11/10/17 16:23> Impressions Chest X-Ray 11/09/17 00:00 CONCLUSION: Interval development of left lower lobe consolidation. <Chaz Vivar - 11/10/17 08:33> Physical Exam Vital signs: Vital Signs 11/09/17 20:00 11/09/17 20:27 11/10/17 00:00 Temperature 98.1 F 97.7 F Pulse Rate 102 H 114 H 112 H Respiratory Rate 18 22 18 Blood Pressure 151/81 H Pulse Oximetry 97 100 11/10/17 04:00 11/10/17 08:00 11/10/17 12:00 Temperature 97.6 F 94.7 F L Pulse Rate 104 H 96 H 105 H Respiratory Rate 18 22 20 Blood Pressure 119/73 114/59 L 114/69 Pulse Oximetry 97 90 L 100 Intake & Output 11/09/17 11/10/17 11/10/17 18:59 06:59 18:59 Intake Total 450 / 450 2009.2009.2 Output Total 1330 / 1330 1000 / 1000 Balance -880 / -880 1010.2 / 1010.2 Weight 105.7 kg Intake: IV 450 / 450 2009.2 2009.2 Maxipime Inj 2,000 MG In NS Inj 100 / 100 100 ML @ 200 mls/hr IV.SIG Q8H [facility] Rx#:[id number] Cubicin Inj 800 MG In NS Inj 100 / 100 100 ML @ 200 mls/hr IV.SIG Q24H [facility] Rx#:[id number] Intralipid 20% Inj 250 ML @ 31. 250 / 250 25 mls/hr IV.SIG SuTh [facility] Rx#: [id number] MVI-12 Inj 10 ML Folvite Inj 1 2009.2009.2 MG In TPN Fluid 2 Liter 2,000 ML @ 65 mls/hr IV.SIG Q24H [facility] Rx#:[id number] Output: Urine 1000 / 1000 Estimated Blood Loss 30 / 30 Urine Amount (Catheter) 1300 / 1300 Indwelling Urethral Catheter 1300 / 1300 Wound Drainage 0 / 0 ZAMZAM Drain 0 / 0 Other: Date of Last Bowel Movement 11/09/17 11/09/17 11/10/17 # Bowel Movements 3 # Emeses 1 <John Joseph - 11/10/17 16:23> Vital Signs 11/09/17 12:00 11/09/17 15:40 11/09/17 16:00 Temperature 98.1 F 98.8 F Pulse Rate 97 H 101 H 103 H Respiratory Rate 18 13 Blood Pressure 127/68 138/89 Pulse Oximetry 98 100 11/09/17 20:00 11/09/17 20:27 11/10/17 00:00 Temperature 98.1 F 97.7 F Pulse Rate 102 H 114 H 112 H Respiratory Rate 18 22 18 Blood Pressure 151/81 H Pulse Oximetry 97 100 11/10/17 04:00 11/10/17 08:00 Temperature 97.6 F 94.7 F L Pulse Rate 104 H 96 H Respiratory Rate 18 22 Blood Pressure 119/73 114/59 L Pulse Oximetry 97 90 L Intake & Output 11/09/17 11/10/17 11/10/17 18:59 06:59 18:59 Intake Total 450 / 450 2009.2009.2 Output Total 1330 / 1330 1000 / 1000 Balance -880 / -880 1010.2 / 1010.2 Weight 105.7 kg Intake: IV 450 / 450 2009.2009.2 Maxipime Inj 2,000 MG In NS Inj 100 / 100 100 ML @ 200 mls/hr IV.SIG Q8H [facility] Rx#:[id number] Cubicin Inj 800 MG In NS Inj 100 / 100 100 ML @ 200 mls/hr IV.SIG Q24H [facility] Rx#:[id number] Intralipid 20% Inj 250 ML @ 31. 250 / 250 25 mls/hr IV.SIG SuTh [facility] Rx#: [id number] MVI-12 Inj 10 ML Folvite Inj 1 2009.2009.2 MG In TPN Fluid 2 Liter 2,000 ML @ 65 mls/hr IV.SIG Q24H [facility] Rx#:[id number] Output: Urine 1000 / 1000 Estimated Blood Loss 30 / 30 Urine Amount (Catheter) 1300 / 1300 Indwelling Urethral Catheter 1300 / 1300 Wound Drainage 0 / 0 ZAMZAM Drain 0 / 0 Other: Date of Last Bowel Movement 11/09/17 11/09/17 # Bowel Movements 3 # Emeses 1 <Chaz Vivar H - 11/10/17 09:18> Narrative: GENERAL: Morbidly obese -Vincentian female sitting up in bed in no acute distress trying to get out of bed upon entering the room. SKIN: Cool and dry. No rash. Lower abdominal and bilateral lower extremity wounds currently bandaged with multiple ABD pads and sterile bandage. No acute signs of purulent drainage or acute bleeding. Bedding overlying affected area is partly saturated. Previous PICC line site with small palpable hematoma and area of ecchymosis. Not tender to palpation. HEENT: Atraumatic, normocephalic with extraocular motions intact. No rhinorrhea.No visible lymphadenopathy or jugulovenous distension appreciated. CARDIOVASCULAR: Tachycardic rate (baseline) and regular rhythm without obvious murmurs, gallops, or rubs. RESPIRATORY: Bilateral rhonchi in the lower air solares with clear breath sounds in the upper solares during anterior auscultation. Breath sounds difficult to auscultate due to body habitus. No increased work of breathing or cough at this time. GASTROINTESTINAL: Abdomen diffuse, soft with soft bowel sounds likely due to body habitus. Patient nontender in the upper 2 quadrants, deferred tenderness evaluation and lower quadrants due to wounds. No masses appreciated. Rectal tube in place with liquid fecal material in reservoir. Hopper catheter in place with urinary output in reservoir. MUSCULOSKELETAL: No cyanosis. Slightly increased lower extremity edema to the lower patella bilaterally (2+). Bilateral calves tender to palpation which is a change from her baseline. Left knee effusion stable and nontender to palpation. SCDs not in place. NEURO/PSYCH: Afocal neurologically. Patient awake and alert, however only oriented to PPT 1. Patient without aggression, however increased agitation and disorientation from baseline. Unable to complete review of systems but does state she is not in pain and has no complaints. <Chaz Vivar 11/10/17 09:18> - Urinary Catheter Management Female External Cath placed during this visit: no <John Joseph 11/10/17 16:23> no <Chaz Vivar 11/10/17 15:26> Indwelling Urethral Catheter Cath placed during this visit: no <John Joseph 11/10/17 16:23> yes, but has since been removed by the nurse <Chaz Vivar 11/10/17 15:26> Reason for continuing: Severe pressure ulcer/wound <Chaz Vivar 11/10/17 08:33> Insertion date: 10/09/17 <Chaz Vivar 11/10/17 08:33> Insertion time: 14:00 <Chaz Vivar 11/10/17 08:33> Removal date: 10/05/17 <Chaz Vivar 11/10/17 08:33> Removal time: 17:30 <Chaz Vivar 11/10/17 08:33> Assessment and Plan - Assessment (1) Altered mental status Code(s): R41.82 - Altered mental status, unspecified Status: Acute (2) Schizophrenia Code(s): F20.9 - Schizophrenia, unspecified Status: Chronic (3) Calf tenderness Code(s): M79.669 - Pain in unspecified lower leg Status: Acute (4) Aspiration into airway Code(s): T17.908A - Unspecified foreign body in respiratory tract, part unspecified causing other injury, initial encounter Status: Acute (5) Open wound of abdominal wall Code(s): S31.109A - Unspecified open wound of abdominal wall, unspecified quadrant without penetration into peritoneal cavity, initial encounter Status : Acute (6) Cellulitis of knee, left Code(s): L03.116 - Cellulitis of left lower limb Status: Acute (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 - Infection and inflammatory reaction due to unspecified internal joint prosthesis, initial encounter Status: Suspected (8) Thrombocytopenia Code(s): D69.6 - Thrombocytopenia, unspecified Status: Acute (9) Creatinine elevation Code(s): R79.89 - Other specified abnormal findings of blood chemistry Status : Acute (10) Poor nutrition Code(s): E63.9 - Nutritional deficiency, unspecified Status: Acute (11) Hyperglycemia Code(s): R73.9 - Hyperglycemia, unspecified Status: Acute (12) Hypokalemia Code(s): E87.6 - Hypokalemia Status: Resolved (13) Anemia Code(s): D64.9 - Anemia, unspecified Status: Resolved (14) C. difficile diarrhea Code(s): A04.72 - Enterocolitis due to Clostridium difficile, not specified as recurrent Status: Acute (15) Fall Code(s): W19.XXXA - Unspecified fall, initial encounter Status: Acute (16) Hypertension Code(s): I10 - Essential (primary) hypertension Status: Acute (17) Tachycardia Code(s): R00.0 - Tachycardia, unspecified Status: Chronic (18) Nutrition, metabolism, and development symptoms Code(s): R63.8 - Other symptoms and signs concerning food and fluid intake Status: Acute <John Joseph - 11/10/17 16:23> (1) Altered mental status Code(s): R41.82 - Altered mental status, unspecified Status: Acute Plan: Patient with altered mental status overnight with possible aspiration due to new dysphagia. -CT Head ordered -Patient failed swallow study; Placed NPO Medications: -All PO medications placed on Hold -Haldol 1mg PRN for agitation/hallucinations -Lopressor 5mg IV PRN for HR >120 every 15min (2) Schizophrenia Code(s): F20.9 - Schizophrenia, unspecified Status: Chronic Plan: -Psychiatry consulted upon admission -Patient with increased agitation and disorientation on 11/09/17; during episode patient pulled PICC line and attempted to pull out rectal/Hopper; patient required 1 mg Haldol for agitation during episode -Psychiatry consulted for further evaluation Medications: Hold oral medications below -Continue Abilify 30 mg for psychosis -Continue buspirone 30 mg, trazodone 100 mg and Cymbalta 60 mg -Started Mirtazapine 15mg QHS to assist with mood as well as appetite stimulant -Hold anticholinergics per Psych (3) Calf tenderness Code(s): M79.669 - Pain in unspecified lower leg Status: Acute Plan: Patient with bilateral 2+ pitting edema both new pain in bilateral calves. Patient with baseline tachycardia. Patient currently not on anticoagulation due to anemia, thrombocytopenia, and creatinine elevation. -SCDs ordered -Bilateral lower extremity Doppler ultrasound ordered to evaluate for possible DVT (4) Aspiration into airway Code(s): T17.908A - Unspecified foreign body in respiratory tract, part unspecified causing other injury, initial encounter Status: Acute Plan: Patient with possible aspiration episode overnight -Chest x-ray 11/09/12: Interval development of left lower lobe consolidation -Incentive spirometry Speech therapy consulted for swallow evaluation -ID consulted as below Medications: -Continue daptomycin as below Start Levaquin and Flagyl for ABX coverage (5) Open wound of abdominal wall Code(s): S31.109A - Unspecified open wound of abdominal wall, unspecified quadrant without penetration into peritoneal cavity, initial encounter Status : Acute Plan: -Wound Culture 09/27/17: Pseudomonas and Group B Step -Blood Cultures 10/24/17: Negative -Tissue Cultures 10/09/17: Negative -Abdominal wound culture 11/01/17: Group D Enterococcus, sensitive to Daptomycin -Blood Culture 11/07/17 per TPN protocol: Negative to date -Infectious disease consulted -Discontinued cefepime due to thrombocytopenia and elevated creatinine -Continue oral vancomycin for Clostridium difficile until cefepime is discontinued on 11/08/17 -Continue Daptomycin for VRE on ABD wound culture on 11/03/17; monitor CK levels -General surgery consulted -Surgical debridement 10/09, wound VAC applied. -VAC changed 10/12 removed 10/15. -Debridement, irrigation, with suturing performed on 10/16. -I&D of abdomen and bilateral thighs, placement of Amniox with wound closure on 11/01/17 -Dressing changes per general surgery Medications: -Daptomycin IV for suspected VRE per ID (11/03/17- ) -Cefepime IV (09/29/17-11/08/17) discontinued due to thrombocytopenia and elevated creatinine -Patient received 2 weeks of Keflex 500mg PO by Orthopedic surgery as outpatient prior to admission -Levaquin stopped 10/20 per ID -Diflucan course completed 10/18 (6) Cellulitis of knee, left Code(s): L03.116 - Cellulitis of left lower limb Status: Acute Plan: -ID consulted, recommend Cefepime until 11/08/17 -Orthopedic surgery consulted, no further recommendations at this time Medications: -Cefepime IV (09/29/17-11/08/17) discontinued due to thrombocytopenia and elevated creatinine -Patient received 2 weeks of Keflex 500mg PO by Orthopedic surgery as outpatient prior to admission -Levaquin stopped 10/20 per ID -Diflucan course completed 10/18 (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 She completed rehabilitation and was discharged home August 23. Patient was on approximately 2 weeks of po Keflex 500 mg. Per Ortho, examination of left knee shows no evidence of infection. (8) Thrombocytopenia Code(s): D69.6 - Thrombocytopenia, unspecified Status: Acute Plan: Patient with decreasing platelet count -No signs of acute bruising on limited skin exam due to body habitus -Patient recently started Daptomycin and TPN feeding -Patient currently receiving heparin flushes only via PICC line -Possibly due to ABX, discontinued cefepime per ID -Continue to monitor (9) Creatinine elevation Code(s): R79.89 - Other specified abnormal findings of blood chemistry Status : Acute Plan: Patient with acute creatinine elevation with starting TPN. -Patient with continued appropriate urinary output -Electrolytes WNL -Possibly due to ABX, discontinued cefepime per ID -Continue to monitor Creatinine (10) Poor nutrition Code(s): E63.9 - Nutritional deficiency, unspecified Status: Acute Plan: -Patient with poor nutritional status during hospitalization -Severe concern of poor wound healing secondary to poor nutritional status -Cloud Developer consulted for calorie count and nutritional guidance, which has been limited due to NPO status prior to surgery, however patient continues to have poor intake -Multivitamin IV added with Hermes supplementation BID -Albumin levels continued to be decreased -Patient unable to receive 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 Briefly discussed with surgery about the possibility of a JG tube versus surgical placement of PEG tube Patient to start TPN, Clinimix E 08/05 @ 65 mls/hr with 20% lipids 250 mls 2x/ week (11/07/17- ) -Plan for possible J tube once albumin is improved with TPN feedings (11) Hyperglycemia Code(s): R73.9 - Hyperglycemia, unspecified Status: Acute Plan: Patient with new hyperglycemia on CMP after starting TPN without history of diabetes. -Suspect laboratory evaluation was drawn from TPN line falsely elevating glucose -Repeat POC glucose WNL -Continue to monitor and treat as necessary (12) Hypokalemia Code(s): E87.6 - Hypokalemia Status: Resolved Plan: -Patient with hypokalemia during hospitalization. Appears to be not tolerating ER capsules as they were found whole in her rectal tube reservoir. Medications: Hold oral medications below -Magnesium 64 mg daily -Hold Potassium Chloride 40mEq BID (Non-ER/Enteric Coated) as potassium has risen with addition of TPN -Plan to treat as necessary (13) Anemia Code(s): D64.9 - Anemia, unspecified Status: Resolved Plan: -Patient found to have asymptomatic anemia H/H of 20.3 with MCV of 82 on -Rectal tube and Hopper catheter without any signs of acute bleeding -Dressings without obvious signs of bleeding -Due to critical condition and severity of abdominal wounds with decreasing hemoglobin, 2 units PRBC ordered -Patient did receive Lasix between units to assist with possible fluid overload -Posttransfusion H/H 11.6/34.7 on 10/30/17 -Continue to monitor (14) C. difficile diarrhea Code(s): A04.72 - Enterocolitis due to Clostridium difficile, not specified as recurrent Status: Acute Plan: -C diff cultures positive 10/19/17 Hold oral medications below -Vancomycin PO 125 4 times daily -Continue with probiotics. -Rectal tube in place (15) Fall Code(s): W19.XXXA - Unspecified fall, initial encounter Status: Acute Plan: Patient with fall on 10/19/17. No loss of consciousness, no head injury, left knee and ankle pain. -Knee x-ray- Prosthesis in place, No abnormality appreciated -Ankle x-ray- No abnormality appreciated -Patient to continue with PT (16) Hypertension Code(s): I10 - Essential (primary) hypertension Status: Acute Plan: History of hypertension Hold oral medications below -Continue to monitor -Clonidine PRN for BP > 180/100 (17) Tachycardia Code(s): R00.0 - Tachycardia, unspecified Status: Chronic Plan: -Patient with chronic history of tachycardia -EKG 09/27/17: Sinus tachycardia with rate of [address] or interval changes. (Per medical team read) Medications: Hold oral medications below; Lopressor 5mg IV PRN for HR >120 -Continue home diltiazem and carvedilol (18) Nutrition, metabolism, and development symptoms Code(s): R63.8 - Other symptoms and signs concerning food and fluid intake Status: Acute Plan: Fluids: TPN as below, tolerating oral fluids Electrolytes: Replete as needed. Nutrition: Cardiac diet with Ensure, continue to monitor po intake, supplement with ensure. Encouraged patient that she needed to increase p.o. intake in order to heal -Cloud Developer consulted for nutritional guidance -TPN Clinimix E 08/05 @ 65 mls/hr with 20% lipids 250 mls 2x/week (11/07/17- ) Vascular axis reconsulted for PICC line placement DVT prophylaxis: SCDs, Defer medical prophylaxis due to anemia Continue to work with OT/PT to improve ambulation <Chaz Vivar - 11/10/17 15:19> - Assessment and Plan . <Chaz Vivar - 11/10/17 08:33> - Attending Attestation Pt. examined and case discussed with resident physicians. I have read the above note and agree with the assessment and plan as discussed with me. I was involved in all medical decision making for this patient. John Joseph MD <John Joseph - 11/10/17 16:23> <Chaz Vivar - Last Filed: 11/10/17 15:19> (1) Altered mental status Qualifiers: Altered mental status type: unspecified Qualified Code(s): R41.82 - Altered mental status, unspecified (4) Aspiration into airway Qualifiers: Encounter type: initial encounter Qualified Code(s): T17.908A - Unspecified foreign body in respiratory tract, part unspecified causing other injury, initial encounter (5) Open wound of abdominal wall Qualifiers: Encounter type: initial encounter Qualified Code(s): S31.109A - Unspecified open wound of abdominal wall, unspecified quadrant without penetration into peritoneal cavity, initial encounter (13) Anemia Qualifiers: Anemia type: unspecified type Qualified Code(s): D64.9 - Anemia, unspecified (16) Hypertension Qualifiers: Hypertension type: essential hypertension Qualified Code(s): I10 - Essential (primary) hypertension <John Joseph - Last Filed: 11/10/17 16:23> (1) Altered mental status Qualifiers: Altered mental status type: unspecified Qualified Code(s): R41.82 - Altered mental status, unspecified (4) Aspiration into airway Qualifiers: Encounter type: initial encounter Qualified Code(s): T17.908A - Unspecified foreign body in respiratory tract, part unspecified causing other injury, initial encounter (5) Open wound of abdominal wall Qualifiers: Encounter type: initial encounter Qualified Code(s): S31.109A - Unspecified open wound of abdominal wall, unspecified quadrant without penetration into peritoneal cavity, initial encounter (13) Anemia Qualifiers: Anemia type: unspecified type Qualified Code(s): D64.9 - Anemia, unspecified (16) Hypertension Qualifiers: Hypertension type: essential hypertension Qualified Code(s): I10 - Essential (primary) hypertension <Chaz Vivar - Last Filed: 11/10/17 15:19> (1) Altered mental status Qualifiers: Altered mental status type: unspecified Qualified Code(s): R41.82 - Altered mental status, unspecified (4) Aspiration into airway Qualifiers: Encounter type: initial encounter Qualified Code(s): T17.908A - Unspecified foreign body in respiratory tract, part unspecified causing other injury, initial encounter (5) Open wound of abdominal wall Qualifiers: Encounter type: initial encounter Qualified Code(s): S31.109A - Unspecified open wound of abdominal wall, unspecified quadrant without penetration into peritoneal cavity, initial encounter (13) Anemia Qualifiers: Anemia type: unspecified type Qualified Code(s): D64.9 - Anemia, unspecified (16) Hypertension Qualifiers: Hypertension type: essential hypertension Qualified Code(s): I10 - Essential (primary) hypertension <John Joseph - Last Filed: 11/10/17 16:23> (1) Altered mental status Qualifiers: Altered mental status type: unspecified Qualified Code(s): R41.82 - Altered mental status, unspecified (4) Aspiration into airway Qualifiers: Encounter type: initial encounter Qualified Code(s): T17.908A - Unspecified foreign body in respiratory tract, part unspecified causing other injury, initial encounter (5) Open wound of abdominal wall Qualifiers: Encounter type: initial encounter Qualified Code(s): S31.109A - Unspecified open wound of abdominal wall, unspecified quadrant without penetration into peritoneal cavity, initial encounter (13) Anemia Qualifiers: Anemia type: unspecified type Qualified Code(s): D64.9 - Anemia, unspecified (16) Hypertension Qualifiers: Hypertension type: essential hypertension Qualified Code(s): I10 - Essential (primary) hypertension
[2017-11-10] MEDS: DAPTOmycin Inj 800 MG in Sodium Chlor 0.9% Inj 100 ML IV.SIG SCH (10:38)
[2017-11-10 13:03] LABS: Hematocrit 26.7 % (35.0-46.0); Hemoglobin 9.1 gm/dL (11.6-15.3); Mean Corpuscular Hemoglobin 28.4 pg (27.0-34.0); Mean Corpuscular Volume 83.4 fL (80.0-100.0); Mean Platelet Volume 8.3 fL (7.0-11.0); Platelet Count 111 th/mm3 (150-450); Red Cell Distribution Width 16.6 % (11.6-17.2)
[2017-11-10 13:41] LABS: Lymphocytes 7 % (9-44); Monocytes 12 % (0-8); Platelet Morphology Normal (Normal); Target Cells 1+
[2017-11-10] MEDS ORDERED: Haloperidol Inj 5 MG/ML Ampul IV.PUSH PRN (14:24)
[2017-11-10] MEDS ORDERED: Pantoprazole Inj 40 MG Vial IV.PUSH SCH (15:00)
[2017-11-10] MEDS ORDERED: Heparin Central Flush 100 UNIT/ML 5 ML Vial IV.FLUSH PRN (15:26)
--- NOTE | 2017-11-10 15:49 | XR ---
EXAM DATE: 11/10/2017 3:36 PM EDT AGE/SEX: 52 years / Female INDICATIONS: PICC placement. CLINICAL DATA: This is the patient's initial encounter. Patient reports that signs and symptoms have been present for 1 day and indicates a pain score of 0/10. MEDICAL/SURGICAL HISTORY: Sepsis. Anemia. Neutropenia. . Cervical fusion. COMPARISON: [facility], CHEST 1V SINGLE AP, 11/09/2017. . FINDINGS: Portable AP view of the chest demonstrates a normal size cardiac silhouette. Left upper extremity PIC C is present with the distal tip at the junction of the left brachiocephalic vein and superior vena c trang. There is mild bibasilar airspace opacity. No pneumothorax is appreciated. Bones demonstrate no a cute finding. CONCLUSION: 1. Left upper extremity PICC distal tip at the junction of the SVC and brachiocephalic vein. 2. Bibasilar airspace opacity could represent atelectasis or consolidation. Electronically signed by: Thor Corral MD 11/10/2017 3:48 PM EDT
--- NOTE | 2017-11-10 17:18 | XR ---
EXAM DATE: 11/10/2017 4:47 PM EDT AGE/SEX: 52 years / Female INDICATIONS: Post PICC placement. CLINICAL DATA: This is the patient's subsequent encounter. Patient reports that signs and symptoms h ave been present for 3 days and indicates a pain score of 0/10. MEDICAL/SURGICAL HISTORY: . Sepsis. Anemia. Neutropenia . . Cervical fusion COMPARISON: [facility], CHEST 1V SINGLE AP, 11/10/2017. . FINDINGS: Portable AP view of the chest demonstrates a normal-sized cardiac silhouette. Left upper extremity PI CC distal tip overlies the expected location of the left brachiocephalic vein. EKG lines overlie the patient. There is atelectasis versus consolidation in the left lower lobe. There are degenerative yanci nges of the thoracic spine. CONCLUSION: Left upper extremity PICC distal tip is in the left brachiocephalic vein. Electronically signed by: Thor Corral MD 11/10/2017 5:17 PM EDT
--- NOTE | 2017-11-10 18:11 | US ---
EXAM DATE: 11/10/2017 6:05 PM EDT AGE/SEX: 52 years / Female INDICATIONS: Bilateral leg pain. CLINICAL DATA: This is the patient's subsequent encounter. Patient reports that signs and symptoms h ave been present for 4 - 6 days and indicates a pain score of 6/10. MEDICAL/SURGICAL HISTORY: . Hypothyroidism. Hypertension. Carpal tunnel syndrome. Hyperlipidemi a. Renal disease. . Neck surgery. Total knee replacement. COMPARISON: [facility] – [place], [place] KNEE LEFT W CONTRAST, 10/18/2017. . TECHNIQUE: Venous ultrasound of both lower extremities was performed from the inguinal ligament to t he proximal calf. Real-time, color Doppler and spectral tracing, compression and augmentation techni ques were used. FINDINGS: Right Leg: Normal compression of the deep venous system from the inguinal region to the proximal aldair f. No echogenic clot is seen. Normal response of the venous system to augmentation and respiration. Left Leg: Normal compression of the deep venous system from the inguinal region to the proximal calf . However, secondary to edema and open wounds the left external iliac, greater saphenous vein, and co mmon femoral veins were not adequately visualized. No echogenic clot is seen. Normal response of the venous system to augmentation and respiration. Other: None. CONCLUSION: 1. No venous thrombosis is identified within either lower extremity. 2. As described above, secondary to open wounds, the left external iliac, common femoral vein, and g reater saphenous veins were not adequately evaluated. Electronically signed by: Thor Corral MD 11/10/2017 6:09 PM EDT
--- NOTE | 2017-11-10 20:12 | CT ---
EXAM DATE: 11/10/2017 8:02 PM EDT AGE/SEX: 52 years / Female INDICATIONS: Altered mental status. CLINICAL DATA: This is the patient's initial encounter. Patient reports that signs and symptoms have been present for 1 day and indicates a pain score of 0/10. MEDICAL/SURGICAL HISTORY: Hypertension. Renal insufficiency, chronic. Hysterectomy. RADIATION DOSE: 56.35 CTDI (mGy) COMPARISON: [facility] – [place], CT HEAD W/O CONTRAST, 09/27/2017. . TECHNIQUE: CT of the head without contrast. Using automated exposure control and adjustment of the mA and/or kV according to patient size, radiation dose was kept as low as reasonably achievable to ob tain optimal diagnostic quality images. DICOM format image data is available electronically for revi ew and comparison. FINDINGS: Cerebrum: The ventricles are slightly distended compared to the prior study.. No evidence of midlin e shift, mass lesion, hemorrhage or acute infarction. No extraaxial fluid collections are seen. Posterior Fossa: The cerebellum and brainstem are intact. The 4th ventricle is midline. The cerebe llopontine angle is unremarkable. Extracranial: The visualized portion of the orbits is intact. Skull: The calvaria is intact. No evidence of skull fracture. CONCLUSION: 1. Interval enlargement of the ventricular system of uncertain etiology. There is no clear evidence of an obstructing process. 2. Otherwise stable evaluation without evidence of acute infarct, hemorrhage, mass or edema. . Electronically signed by: Sherwin Rhodes MD 11/10/2017 8:11 PM EDT
[2017-11-10] MEDS ORDERED: Dextrose 5%/NaCl 0.9% Inj 1,000 ML IV.CONT SCH (20:45)
[2017-11-10] MEDS: Multivitamin Inj 10 ML, Folic Acid Inj 1 MG in TPN Fluid 2 Liter 2,000 ML IV.SIG SCH (21:23)
[2017-11-11 00:06] LABS: Alanine Aminotransferase 20 U/L (10-53); Albumin 0.9 g/dL (3.4-5.0); Alkaline Phosphatase 160 U/L (45-117); Anion Gap 9 meq/L (5-15); Aspartate Aminotransferase 23 U/L (15-37); Blood Urea Nitrogen 15 mg/dL (7-18); Calcium 8.2 mg/dL (8.5-10.1); Carbon Dioxide 17.4 meq/L (21.0-32.0); Chloride 118 meq/L (98-107); Glomerular Filtration Rate 79 mL/min (>89); Glucose,Random 54 mg/dL (74-106); Sodium 144 meq/L (136-145); Total Protein 4.7 g/dL (6.4-8.2)
[2017-11-11] MEDS: DAPTOmycin Inj 800 MG in Sodium Chlor 0.9% Inj 100 ML IV.SIG SCH (06:31)
[2017-11-11] MEDS ORDERED: Dextrose 50% in Water 50 ML Vial IV.PUSH PRN (07:45)
--- NOTE | 2017-11-11 08:54 | P.PNFP ---
Subjective Interval history: Patient seen and examined this morning. Per nursing staff, patient lost second PICC line access on transfer yesterday evening. IV access was established, however later infiltrated. Patient was agitated throughout the night while restrained. Upon entering the room this morning patient is severely lethargic and unarousable to normal conversation. Patient does not participate in interview and cannot follow commands. As patient has lost PICC line access and requires TPN as well as multiple antibiotics and fluids, interventional radiology was contacted for stat PICC line placement. [place] be [place] [facility] blender snuff consult at this time. Attempted to notify patient's POA, Mr. Emile Mcclain, however there was no answer. Update: Mr. Emile Mcclain was contacted and provided patient update with all questions answered. Discussed case with Dr. Lino, blender snuff, with consult placed. <Chaz Vivar H - 11/11/17 11:06> Results - Labs Result diagrams: 11/10/17 12:02 11/10/17 22:17 <John Joseph - 11/11/17 11:40> Abnormal lab results 11/10/17 11/10/17 11/11/17 Range/Units 12:02 22:17 06:25 WBC 19.0 H (4.0-11.0) th/mm3 RBC 3.20 L (4.00-5.30) mil/mm3 Hgb 9.1 L (11.6-15.3) gm/dL Hct 26.7 L (35.0-46.0) % Plt Count 111 L (150-450) th/mm3 Band Neuts % (Manual) 18 H (0-6) % Lymphocytes % (Manual) 7 L (9-44) % Monocytes % (Manual) 12 H (0-8) % Abs Neuts (Manual) 15.4 H (1.8-7.7) th/mm3 Platelet Estimate Low L (Normal) Target Cells 1+ H (None) Chloride 118 H (98-107) meq/L Carbon Dioxide 17.4 L (21.0-32.0) meq/L Estimated GFR 79 L (>89) mL/min POC Glucose 61 L (68-110) mg/dl Random Glucose 54 L D (74-106) mg/dL Calcium 8.2 L (8.5-10.1) mg/dL Alkaline Phosphatase 160 H (45-117) U/L Total Protein 4.7 L (6.4-8.2) g/dL Albumin 0.9 L (3.4-5.0) g/dL Short CBC 11/10/17 Range/Units 12:02 WBC 19.0 H (4.0-11.0) th/mm3 Hgb 9.1 L (11.6-15.3) gm/dL Hct 26.7 L (35.0-46.0) % Plt Count 111 L (150-450) th/mm3 BMP 11/10/17 22:17 Sodium 144 Potassium 4.0 D Chloride 118 H Carbon Dioxide 17.4 L BUN 15 Creatinine 0.90 Calcium 8.2 L Liver Function 11/10/17 Range/Units 22:17 Total Bilirubin 0.3 (0.2-1.0) mg/dL AST 23 (15-37) U/L ALT 20 (10-53) U/L Alkaline Phosphatase 160 H (45-117) U/L Albumin 0.9 L (3.4-5.0) g/dL <John Joseph - 11/11/17 11:40> Abnormal lab results 11/10/17 11/10/17 11/11/17 Range/Units 12:02 22:17 06:25 WBC 19.0 H (4.0-11.0) th/mm3 RBC 3.20 L (4.00-5.30) mil/mm3 Hgb 9.1 L (11.6-15.3) gm/dL Hct 26.7 L (35.0-46.0) % Plt Count 111 L (150-450) th/mm3 Band Neuts % (Manual) 18 H (0-6) % Lymphocytes % (Manual) 7 L (9-44) % Monocytes % (Manual) 12 H (0-8) % Abs Neuts (Manual) 15.4 H (1.8-7.7) th/mm3 Platelet Estimate Low L (Normal) Target Cells 1+ H (None) Chloride 118 H (98-107) meq/L Carbon Dioxide 17.4 L (21.0-32.0) meq/L Estimated GFR 79 L (>89) mL/min POC Glucose 61 L (68-110) mg/dl Random Glucose 54 L D (74-106) mg/dL Calcium 8.2 L (8.5-10.1) mg/dL Alkaline Phosphatase 160 H (45-117) U/L Total Protein 4.7 L (6.4-8.2) g/dL Albumin 0.9 L (3.4-5.0) g/dL Short CBC 11/10/17 Range/Units 12:02 WBC 19.0 H (4.0-11.0) th/mm3 Hgb 9.1 L (11.6-15.3) gm/dL Hct 26.7 L (35.0-46.0) % Plt Count 111 L (150-450) th/mm3 BMP 11/10/17 22:17 Sodium 144 Potassium 4.0 D Chloride 118 H Carbon Dioxide 17.4 L BUN 15 Creatinine 0.90 Calcium 8.2 L Liver Function 11/10/17 Range/Units 22:17 Total Bilirubin 0.3 (0.2-1.0) mg/dL AST 23 (15-37) U/L ALT 20 (10-53) U/L Alkaline Phosphatase 160 H (45-117) U/L Albumin 0.9 L (3.4-5.0) g/dL <Chaz Vivar - 11/11/17 08:54> - Imaging Impressions Head CT 11/10/17 00:00 CONCLUSION: 1. Interval enlargement of the ventricular system of uncertain etiology. There is no clear evidence of an obstructing process. 2. Otherwise stable evaluation without evidence of acute infarct, hemorrhage, mass or edema. . Venous Doppler Study 11/10/17 00:00 CONCLUSION: 1. No venous thrombosis is identified within either lower extremity. 2. As described above, secondary to open wounds, the left external iliac, common femoral vein, and greater saphenous veins were not adequately evaluated. Chest X-Ray 11/10/17 15:16 CONCLUSION: 1. Left upper extremity PICC distal tip at the junction of the SVC and brachiocephalic vein. 2. Bibasilar airspace opacity could represent atelectasis or consolidation. Chest X-Ray 11/10/17 16:19 CONCLUSION: Left upper extremity PICC distal tip is in the left brachiocephalic vein. <John Joseph - 11/11/17 11:40> Impressions Head CT 11/10/17 00:00 CONCLUSION: 1. Interval enlargement of the ventricular system of uncertain etiology. There is no clear evidence of an obstructing process. 2. Otherwise stable evaluation without evidence of acute infarct, hemorrhage, mass or edema. . Venous Doppler Study 11/10/17 00:00 CONCLUSION: 1. No venous thrombosis is identified within either lower extremity. 2. As described above, secondary to open wounds, the left external iliac, common femoral vein, and greater saphenous veins were not adequately evaluated. Chest X-Ray 11/10/17 15:16 CONCLUSION: 1. Left upper extremity PICC distal tip at the junction of the SVC and brachiocephalic vein. 2. Bibasilar airspace opacity could represent atelectasis or consolidation. Chest X-Ray 11/10/17 16:19 CONCLUSION: Left upper extremity PICC distal tip is in the left brachiocephalic vein. <Chaz Vivar H - 11/11/17 08:54> Physical Exam Vital signs: Vital Signs 11/10/17 12:00 11/10/17 16:00 11/10/17 20:00 Temperature 94.3 F L Pulse Rate 105 H 103 H 105 H Respiratory Rate 20 20 Blood Pressure 114/69 140/83 Pulse Oximetry 100 100 11/10/17 21:20 11/11/17 00:00 11/11/17 02:00 Temperature 96.9 F L Pulse Rate 116 H 110 H 105 H Respiratory Rate 19 19 Blood Pressure 107/80 149/79 H Pulse Oximetry 98 100 11/11/17 03:00 11/11/17 04:00 11/11/17 05:00 Temperature Pulse Rate 110 H 114 H 109 H Respiratory Rate 19 Blood Pressure 114/56 L Pulse Oximetry 100 11/11/17 06:00 11/11/17 08:00 Temperature 96.5 F L Pulse Rate 110 H 112 H Respiratory Rate 20 Blood Pressure 122/68 Pulse Oximetry 100 Intake & Output 11/10/17 11/11/17 11/11/17 18:59 06:59 18:59 Intake Total 250 / 250 0 / 0 Output Total 1600 / 1600 1600 / 1600 Balance -1600 / -1600 -1350 / -1350 0 / 0 Weight 105.7 kg Intake: IV 250 / 250 Levaquin 750 mg Premix Inj 150 150 / 150 ML @ 100 mls/hr IV.SIG Q24H [facility] Rx#:[id number] Flagyl 500 MG Inj 100 ML @ 100 100 / 100 mls/hr IV.SIG Q6H [facility] Rx#: [id number] Oral 0 / 0 0 / 0 Output: Stool 800 / 800 Urine Amount (Catheter) 1600 / 1600 800 / 800 Indwelling Urethral Catheter 1600 / 1600 800 / 800 Other: Date of Last Bowel Movement 11/10/17 11/14/17 <John Joseph - 11/11/17 11:40> Vital Signs 11/10/17 12:00 11/10/17 16:00 11/10/17 20:00 Temperature 94.3 F L Pulse Rate 105 H 103 H 105 H Respiratory Rate 20 20 Blood Pressure 114/69 140/83 Pulse Oximetry 100 100 11/10/17 21:20 11/11/17 00:00 11/11/17 02:00 Temperature 96.9 F L Pulse Rate 116 H 110 H 105 H Respiratory Rate 19 19 Blood Pressure 107/80 149/79 H Pulse Oximetry 98 100 11/11/17 03:00 11/11/17 04:00 11/11/17 05:00 Temperature Pulse Rate 110 H 114 H 109 H Respiratory Rate 19 Blood Pressure 114/56 L Pulse Oximetry 100 11/11/17 06:00 Temperature Pulse Rate 110 H Respiratory Rate Blood Pressure Pulse Oximetry Intake & Output 11/10/17 11/11/17 11/11/17 18:59 06:59 18:59 Intake Total 250 / 250 Output Total 1600 / 1600 1600 / 1600 Balance -1600 / -1600 -1350 / -1350 Weight 105.7 kg Intake: IV 250 / 250 Levaquin 750 mg Premix Inj 150 150 / 150 ML @ 100 mls/hr IV.SIG Q24H [facility] Rx#:[id number] Flagyl 500 MG Inj 100 ML @ 100 100 / 100 mls/hr IV.SIG Q6H [facility] Rx#: [id number] Oral 0 / 0 Output: Stool 800 / 800 Urine Amount (Catheter) 1600 / 1600 800 / 800 Indwelling Urethral Catheter 1600 / 1600 800 / 800 Other: Date of Last Bowel Movement 11/10/17 11/14/17 <Chaz Vivar - 11/11/17 08:54> Narrative: GENERAL: Morbidly obese -Prydeinig female lying in bed only responsive to sternal rub. SKIN: Cool and dry. No rash. Lower abdominal and bilateral lower extremity wounds currently bandaged with multiple ABD pads and sterile bandage. No acute signs of purulent drainage or acute bleeding. Bedding overlying affected area is saturated with clear fluid. Previous PICC line site with small palpable hematoma and area of ecchymosis. Not tender to palpation. HEENT: Atraumatic, normocephalic with extraocular motions intact. No rhinorrhea.No visible lymphadenopathy or jugulovenous distension appreciated. CARDIOVASCULAR: Tachycardic rate (baseline) and regular rhythm without obvious murmurs, gallops, or rubs. RESPIRATORY: Bilateral rhonchi in the lower air solares with clear breath sounds in the upper solares during anterior auscultation. Breath sounds difficult to auscultate due to body habitus. No increased work of breathing or cough at this time. Patient currently on 2 L nasal cannula. GASTROINTESTINAL: Abdomen diffuse, soft with soft bowel sounds likely due to body habitus. Patient nontender in the upper 2 quadrants, deferred tenderness evaluation and lower quadrants due to wounds. No masses appreciated. Rectal tube in place with liquid fecal material in reservoir. Hopper catheter in place with urinary output in reservoir. MUSCULOSKELETAL: No cyanosis. Increased lower extremity edema to the lower patella bilaterally (2+). New pitting edema on the bilateral forearms 1+. Bilateral calves tender to palpation. Left knee effusion stable and nontender to palpation. SCDs in place. NEURO/PSYCH: GCS 10 (E3 V2 M5); patient appears very lethargic upon entering the room. Patient unable to communicate at this time expressing only incomprehensible sounds upon sternal rub. <Chaz Vivar 11/11/17 09:32> - Urinary Catheter Management Female External Cath placed during this visit: no <John Joseph 11/11/17 11:40> no <Chaz Vivar 11/11/17 11:06> Indwelling Urethral Catheter Cath placed during this visit: no <John Joseph 11/11/17 11:40> yes, but has since been removed by the nurse <Chaz Vivar 11/11/17 11:06> Reason for continuing: Severe pressure ulcer/wound <Chaz Vivar 11/11/17 08:54> Insertion date: 10/09/17 <Chaz Vivar 11/11/17 08:54> Insertion time: 14:00 <Chaz Vivar - 11/11/17 08:54> Removal date: 10/05/17 <Chaz Vivar - 11/11/17 08:54> Removal time: 17:30 <Chaz Vivar - 11/11/17 08:54> Assessment and Plan - Assessment (1) Altered mental status Code(s): R41.82 - Altered mental status, unspecified Status: Acute (2) Hypoglycemia Code(s): E16.2 - Hypoglycemia, unspecified Status: Acute (3) Schizophrenia Code(s): F20.9 - Schizophrenia, unspecified Status: Chronic (4) Aspiration into airway Code(s): T17.908A - Unspecified foreign body in respiratory tract, part unspecified causing other injury, initial encounter Status: Acute (5) Open wound of abdominal wall Code(s): S31.109A - Unspecified open wound of abdominal wall, unspecified quadrant without penetration into peritoneal cavity, initial encounter Status : Acute (6) Cellulitis of knee, left Code(s): L03.116 - Cellulitis of left lower limb Status: Acute (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 - Infection and inflammatory reaction due to unspecified internal joint prosthesis, initial encounter Status: Suspected (8) Thrombocytopenia Code(s): D69.6 - Thrombocytopenia, unspecified Status: Acute (9) Creatinine elevation Code(s): R79.89 - Other specified abnormal findings of blood chemistry Status : Acute (10) Poor nutrition Code(s): E63.9 - Nutritional deficiency, unspecified Status: Acute (11) Hyperglycemia Code(s): R73.9 - Hyperglycemia, unspecified Status: Acute (12) Hypokalemia Code(s): E87.6 - Hypokalemia Status: Resolved (13) Anemia Code(s): D64.9 - Anemia, unspecified Status: Resolved (14) C. difficile diarrhea Code(s): A04.72 - Enterocolitis due to Clostridium difficile, not specified as recurrent Status: Acute (15) Fall Code(s): W19.XXXA - Unspecified fall, initial encounter Status: Acute (16) Hypertension Code(s): I10 - Essential (primary) hypertension Status: Acute (17) Tachycardia Code(s): R00.0 - Tachycardia, unspecified Status: Chronic (18) Calf tenderness Code(s): M79.669 - Pain in unspecified lower leg Status: Acute (19) Nutrition, metabolism, and development symptoms Code(s): R63.8 - Other symptoms and signs concerning food and fluid intake Status: Acute <John Joseph - 11/11/17 11:40> (1) Altered mental status Code(s): R41.82 - Altered mental status, unspecified Status: Acute Plan: Patient with altered mental status overnight 11/11/17 with possible aspiration due to new dysphagia. Patient's mental status continues to decline with a GCS score of 10. Possibly related to hypoglycemia as patient does not have access and has been unable to receive nutrition via PICC line and is n.p.o. for failed swallow sorry. -CT Head: Interval enlargement of the ventricular system of uncertain etiology. No clear evidence of an obstructing process. Otherwise stable evaluation without evidence of acute infarct, hemorrhage, mass, or edema. -MRI wo contrast: Pending -Patient failed swallow study; Placed NPO -Speech therapy consulted Neurology consulted, appreciate recommendations -Bone Plant Supervisor consulted, appreciate recommendations, Dw: Dr. Lino Medications: -Glucagon given overnight -STAT buccal glucose given -All PO medications placed on Hold -Haldol 1mg PRN for agitation/hallucinations -Lopressor 5mg IV PRN for HR >120 every 15min (2) Hypoglycemia Code(s): E16.2 - Hypoglycemia, unspecified Status: Acute Plan: Patient presenting with altered mental status Differential remains wide, however patient also with hypoglycemia likely contributing to mental status Patient currently n.p.o. due to dysphagia Patient has lost PICC line 2 and currently does not have IV access due to poor vasculature, therefore she has been unable to receive TPN, fluids, or antibiotics at this time Stat consult to IR for PICC line placement, LEI Ellis Medications: Patient given buccal glucose PRN Patient given glucagon 1 overnight (3) Schizophrenia Code(s): F20.9 - Schizophrenia, unspecified Status: Chronic Plan: -Psychiatry consulted upon admission -Patient with increased agitation and disorientation on 11/09/17; during episode patient pulled PICC line and attempted to pull out rectal/Hopper; patient required 1 mg Haldol for agitation during episode -Psychiatry consulted for further evaluation Medications: Hold oral medications below -Continue Abilify 30 mg for psychosis -Continue buspirone 30 mg, trazodone 100 mg and Cymbalta 60 mg -Started Mirtazapine 15mg QHS to assist with mood as well as appetite stimulant -Hold anticholinergics per Psych (4) Aspiration into airway Code(s): T17.908A - Unspecified foreign body in respiratory tract, part unspecified causing other injury, initial encounter Status: Acute Plan: Patient with possible aspiration episode overnight -Chest x-ray 11/09/12: Interval development of left lower lobe consolidation -CXR 11/10/17: Left upper extremity PICC distal tip at the junction of the SVC and brachiocephalic vein. Bibasilar airspace opacity could represent atelectasis versus consolidation. -Incentive spirometry Speech therapy consulted for swallow evaluation -ID consulted as below Medications: -Continue daptomycin as below Continue Levaquin and Flagyl for ABX coverage (11/10/17- ) (5) Open wound of abdominal wall Code(s): S31.109A - Unspecified open wound of abdominal wall, unspecified quadrant without penetration into peritoneal cavity, initial encounter Status : Acute Plan: -Wound Culture 09/27/17: Pseudomonas and Group B Step -Blood Cultures 10/24/17: Negative -Tissue Cultures 10/09/17: Negative -Abdominal wound culture 11/01/17: Group D Enterococcus, sensitive to Daptomycin -Blood Culture 11/07/17 per TPN protocol: Negative to date -Infectious disease consulted -Discontinued cefepime due to thrombocytopenia and elevated creatinine -Continue oral vancomycin for Clostridium difficile until cefepime is discontinued on 11/08/17 -Continue Daptomycin for VRE on ABD wound culture on 11/03/17; monitor CK levels -General surgery consulted -Surgical debridement 10/09, wound VAC applied. -VAC changed 10/12 removed 10/15. -Debridement, irrigation, with suturing performed on 10/16. -I&D of abdomen and bilateral thighs, placement of Amniox with wound closure on 11/01/17 -Dressing changes per general surgery Medications: -Daptomycin IV for suspected VRE per ID (11/03/17- ) -Cefepime IV (09/29/17-11/08/17) discontinued due to thrombocytopenia and elevated creatinine -Patient received 2 weeks of Keflex 500mg PO by Orthopedic surgery as outpatient prior to admission -Levaquin stopped 10/20 per ID -Diflucan course completed 10/18 (6) Cellulitis of knee, left Code(s): L03.116 - Cellulitis of left lower limb Status: Acute Plan: -ID consulted, recommend Cefepime until 11/08/17 -Orthopedic surgery consulted, no further recommendations at this time Medications: -Cefepime IV (09/29/17-11/08/17) discontinued due to thrombocytopenia and elevated creatinine -Patient received 2 weeks of Keflex 500mg PO by Orthopedic surgery as outpatient prior to admission -Levaquin stopped 10/20 per ID -Diflucan course completed 10/18 (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 She completed rehabilitation and was discharged home August 23. Patient was on approximately 2 weeks of po Keflex 500 mg. Per Ortho, examination of left knee shows no evidence of infection. (8) Thrombocytopenia Code(s): D69.6 - Thrombocytopenia, unspecified Status: Acute Plan: Patient with decreasing platelet count -No signs of acute bruising on limited skin exam due to body habitus -Patient recently started Daptomycin and TPN feeding -Patient currently receiving heparin flushes only via PICC line -Possibly due to ABX, discontinued cefepime per ID -Continue to monitor (9) Creatinine elevation Code(s): R79.89 - Other specified abnormal findings of blood chemistry Status : Acute Plan: Patient with acute creatinine elevation with starting TPN. -Patient with continued appropriate urinary output -Electrolytes WNL -Possibly due to ABX, discontinued cefepime per ID -Continue to monitor Creatinine (10) Poor nutrition Code(s): E63.9 - Nutritional deficiency, unspecified Status: Acute Plan: -Patient with poor nutritional status during hospitalization -Severe concern of poor wound healing secondary to poor nutritional status -Body Shop Manager consulted for calorie count and nutritional guidance, which has been limited due to NPO status prior to surgery, however patient continues to have poor intake -Multivitamin IV added with Hermes supplementation BID -Albumin levels continued to be decreased -Patient unable to receive 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 Briefly discussed with surgery about the possibility of a JG tube versus surgical placement of PEG tube Patient to start TPN, Clinimix E 08/05 @ 65 mls/hr with 20% lipids 250 mls 2x/ week (11/07/17- ) -Plan for possible J tube once albumin is improved with TPN feedings (11) Hyperglycemia Code(s): R73.9 - Hyperglycemia, unspecified Status: Acute Plan: Patient with new hyperglycemia on CMP after starting TPN without history of diabetes. -Suspect laboratory evaluation was drawn from TPN line falsely elevating glucose -Repeat POC glucose WNL -Continue to monitor and treat as necessary (12) Hypokalemia Code(s): E87.6 - Hypokalemia Status: Resolved Plan: -Patient with hypokalemia during hospitalization. Appears to be not tolerating ER capsules as they were found whole in her rectal tube reservoir. Medications: Hold oral medications below -Magnesium 64 mg daily -Hold Potassium Chloride 40mEq BID (Non-ER/Enteric Coated) as potassium has risen with addition of TPN -Plan to treat as necessary (13) Anemia Code(s): D64.9 - Anemia, unspecified Status: Resolved Plan: -Patient found to have asymptomatic anemia H/H of /20.3 with MCV of 82 on -Rectal tube and Hopper catheter without any signs of acute bleeding -Dressings without obvious signs of bleeding -Due to critical condition and severity of abdominal wounds with decreasing hemoglobin, 2 units PRBC ordered -Patient did receive Lasix between units to assist with possible fluid overload -Posttransfusion H/H 11.6/34.7 on 10/30/17 -Continue to monitor (14) C. difficile diarrhea Code(s): A04.72 - Enterocolitis due to Clostridium difficile, not specified as recurrent Status: Acute Plan: -C diff cultures positive 10/19/17 Hold oral medications below -Vancomycin PO 125 4 times daily -Continue with probiotics. -Rectal tube in place (15) Fall Code(s): W19.XXXA - Unspecified fall, initial encounter Status: Acute Plan: Patient with fall on 10/19/17. No loss of consciousness, no head injury, left knee and ankle pain. -Knee x-ray- Prosthesis in place, No abnormality appreciated -Ankle x-ray- No abnormality appreciated -Patient to continue with PT (16) Hypertension Code(s): I10 - Essential (primary) hypertension Status: Acute Plan: History of hypertension Hold oral medications below -Continue to monitor -Clonidine PRN for BP > 180/100 (17) Tachycardia Code(s): R00.0 - Tachycardia, unspecified Status: Chronic Plan: -Patient with chronic history of tachycardia -EKG 09/27/17: Sinus tachycardia with rate of [address] or interval changes. (Per medical team read) Medications: Hold oral medications below; Lopressor 5mg IV PRN for HR >120 -Continue home diltiazem and carvedilol (18) Calf tenderness Code(s): M79.669 - Pain in unspecified lower leg Status: Acute Plan: Patient with bilateral 2+ pitting edema both new pain in bilateral calves. Patient with baseline tachycardia. Patient currently not on anticoagulation due to anemia, thrombocytopenia, and creatinine elevation. -SCDs ordered -Previously deferred anticoagulation secondary to anemia requiring multiple blood transfusions -Bilateral lower extremity Doppler ultrasound: Negative for DVT, complete evaluation unable to be completed due to bilateral pelvic wounds (19) Nutrition, metabolism, and development symptoms Code(s): R63.8 - Other symptoms and signs concerning food and fluid intake Status: Acute Plan: Fluids: TPN as below, tolerating oral fluids Electrolytes: Replete as needed. Nutrition: Cardiac diet with Ensure, continue to monitor po intake, supplement with ensure. Encouraged patient that she needed to increase p.o. intake in order to heal -Body Shop Manager consulted for nutritional guidance -TPN Clinimix E 08/05 @ 65 mls/hr with 20% lipids 250 mls 2x/week (11/07/17- ) Vascular axis reconsulted for PICC line placement DVT prophylaxis: SCDs, Defer medical prophylaxis due to anemia Continue to work with OT/PT to improve ambulation <Chaz Vivar H - 11/11/17 11:01> - Assessment and Plan . <Chaz Vivar - 11/11/17 08:54> - Attending Attestation Patient examined with resident physician and case discussed I have read the above note and agree with the assessment/plan as discussed with me I was involved in all medical decision making for this patient John Joseph MD <JakeJohn - 11/11/17 11:40> <Chaz Vivar - Last Filed: 11/11/17 11:01> (1) Altered mental status Qualifiers: Altered mental status type: unspecified Qualified Code(s): R41.82 - Altered mental status, unspecified (4) Aspiration into airway Qualifiers: Encounter type: initial encounter Qualified Code(s): T17.908A - Unspecified foreign body in respiratory tract, part unspecified causing other injury, initial encounter (5) Open wound of abdominal wall Qualifiers: Encounter type: initial encounter Qualified Code(s): S31.109A - Unspecified open wound of abdominal wall, unspecified quadrant without penetration into peritoneal cavity, initial encounter (13) Anemia Qualifiers: Anemia type: unspecified type Qualified Code(s): D64.9 - Anemia, unspecified (16) Hypertension Qualifiers: Hypertension type: essential hypertension Qualified Code(s): I10 - Essential (primary) hypertension <John Joseph - Last Filed: 11/11/17 11:40> (1) Altered mental status Qualifiers: Altered mental status type: unspecified Qualified Code(s): R41.82 - Altered mental status, unspecified (4) Aspiration into airway Qualifiers: Encounter type: initial encounter Qualified Code(s): T17.908A - Unspecified foreign body in respiratory tract, part unspecified causing other injury, initial encounter (5) Open wound of abdominal wall Qualifiers: Encounter type: initial encounter Qualified Code(s): S31.109A - Unspecified open wound of abdominal wall, unspecified quadrant without penetration into peritoneal cavity, initial encounter (13) Anemia Qualifiers: Anemia type: unspecified type Qualified Code(s): D64.9 - Anemia, unspecified (16) Hypertension Qualifiers: Hypertension type: essential hypertension Qualified Code(s): I10 - Essential (primary) hypertension <Chaz Vivar - Last Filed: 11/11/17 11:01> (1) Altered mental status Qualifiers: Altered mental status type: unspecified Qualified Code(s): R41.82 - Altered mental status, unspecified (4) Aspiration into airway Qualifiers: Encounter type: initial encounter Qualified Code(s): T17.908A - Unspecified foreign body in respiratory tract, part unspecified causing other injury, initial encounter (5) Open wound of abdominal wall Qualifiers: Encounter type: initial encounter Qualified Code(s): S31.109A - Unspecified open wound of abdominal wall, unspecified quadrant without penetration into peritoneal cavity, initial encounter (13) Anemia Qualifiers: Anemia type: unspecified type Qualified Code(s): D64.9 - Anemia, unspecified (16) Hypertension Qualifiers: Hypertension type: essential hypertension Qualified Code(s): I10 - Essential (primary) hypertension <John Joseph - Last Filed: 11/11/17 11:40> (1) Altered mental status Qualifiers: Altered mental status type: unspecified Qualified Code(s): R41.82 - Altered mental status, unspecified (4) Aspiration into airway Qualifiers: Encounter type: initial encounter Qualified Code(s): T17.908A - Unspecified foreign body in respiratory tract, part unspecified causing other injury, initial encounter (5) Open wound of abdominal wall Qualifiers: Encounter type: initial encounter Qualified Code(s): S31.109A - Unspecified open wound of abdominal wall, unspecified quadrant without penetration into peritoneal cavity, initial encounter (13) Anemia Qualifiers: Anemia type: unspecified type Qualified Code(s): D64.9 - Anemia, unspecified (16) Hypertension Qualifiers: Hypertension type: essential hypertension Qualified Code(s): I10 - Essential (primary) hypertension
[2017-11-11] MEDS: [UNRECOGNIZED DRUG - OTHER] PO PRN ×2 (09:38→15:09)
--- NOTE | 2017-11-11 11:17 | P.CONNEU ---
History of Present Illness Service: Neurology Primary Care Provider: Chaz Vivar MD, R3 Family Provider: Chaz Vivar MD, R3 Chief Complaint: Abnormal CT scan History of Present Illness: 52-year-old female with significant comorbidities including lower extremity infection edema and episodes of hypoglycemia. Transfer to the intensive care unit for PICC line confusion. Confusion improved after IV fluid, glucose augmentation. Neurology is consulted for abnormal CAT scan showing "" ventriculomegaly. Patient denies any headache any focal weakness says she has a lot of swelling in her lower limbs denies any bowel bladder incontinence in the past or history of TIA or stroke. Review of Systems All other systems reviewed negative except as stated in HPI [facility] - History History Provided By: Family Member (reviewed and confirmed history again at 9 am ) - Medical History Medical History: Medical History (Last Reviewed 11/12/17 @ 09:01 by Sherine Roberts, CUFF [employer]TER) Carpal tunnel syndrome on both sides Chronic neck pain H/O: hysterectomy High cholesterol Hypertension Hyperthyroidism Osteoarthritis Post hysterectomy menopause Renal disease Schizophrenia - Surgical History Surgical History: Surgical History (Last Reviewed 11/09/17 @ 08:36 by Balwinder Adams) History of neck surgery History of total knee replacement Previous section - Tobacco History Second Hand Smoke Exposure: Yes Smoking Status: Never smoker - Alcohol History How Often Do You Have a Drink Containing Alcohol: Never - Substance Use History Substance History: No History of Abuse - Travel History Recent Travel in the [place] Within the Last 8 Weeks: No Recent Travel Out of the Country Within the Last 8 Weeks: No - Immunization History Tetanus Immunization: Unsure Hx Influenza Vaccine This Season: Yes Medications and Allergies Active Medications: Active Medications Acetaminophen (Tylenol) 650 mg PO Q4H PRN PRN Reason: Pain 1-10 Last Admin: 10/08/17 22:12 Dose: 650 mg Hydrocodone Bitart/Acetaminophen ([place] 5/325) 1 tab PO Q4H PRN PRN Reason: pain scale 5 to 10 Last Admin: 11/10/17 08:21 Dose: 1 tab Al Hydroxide/Mg Hydroxide (Milk Of Magnesia Liq) 30 ml PO Q12H PRN PRN Reason: Mild Constipation Albuterol (Duoneb Neb (Prn)) 1 ampul NEB Q6HR NEB PRN PRN Reason: SHORTNESS OF BREATH Last Admin: 11/09/17 20:14 Dose: 1 ampul Alteplase, Recombinant (Cathflo Activase Inj) 2 mg I-CATHETER Q2H PRN PRN Reason: catheter clot Last Admin: 10/31/17 05:28 Dose: 2 mg Aripiprazole (Abilify) 30 mg PO DAILY [facility] Last Admin: 11/10/17 08:21 Dose: 30 mg Bisacodyl (Dulcolax Supp) 10 mg RECTAL DAILY PRN PRN Reason: SEVERE CONSITIPATION Buspirone HCl (Buspar) 15 mg PO TID [facility] Last Admin: 11/10/17 13:31 Dose: Not Given Clonidine HCl (Catapres) 0.1 mg PO Q6H PRN PRN Reason: BP >180/100 Cod Liver Oil/Zinc Oxide (Desitin 40% Oint) 1 applicatio TOPICAL PRN PRN PRN Reason: RASH Dextrose (D50w Vial) 50 ml IV.PUSH UNSCH PRN PRN Reason: PER HYPOGLYCEMIA PROTOCOL Dextrose (Insta-Glucose (Adult) Gel) 31 gm PO UNSCH PRN PRN Reason: hypoglycemia Last Admin: 11/11/17 09:38 Dose: 31 gm Diltiazem HCl (Cardizem) 60 mg PO TID [facility] Last Admin: 11/10/17 13:31 Dose: Not Given Duloxetine HCl (Cymbalta) 60 mg PO DAILY [facility] Last Admin: 11/10/17 08:20 Dose: 60 mg Enalaprilat (Vasotec Inj) 1.25 mg IV.PUSH Q6H PRN PRN Reason: BP>180/110 Folic Acid (Folic Acid) 1 mg PO DAILY [facility] Last Admin: 11/10/17 08:21 Dose: 1 mg Glucagon (Glucagon Inj) 1 mg OTHER UNSCH PRN PRN Reason: for Hypoglycemia Protocol Last Admin: 11/11/17 08:33 Dose: 1 mg Haloperidol Lactate (Haldol Inj) 1 mg IV.PUSH Q6H PRN PRN Reason: AGITATION AND/OR HALLUCINATION Heparin Sodium (Porcine) (Heparin Central Flush) 0 unit IV.FLUSH DAILY [facility] Heparin Sodium (Porcine) (Heparin Central Flush) 0 unit IV.FLUSH PRN PRN PRN Reason: Flush PICC Line Heparin Sodium (Porcine) (Heparin Central Flush) 0 unit IV.FLUSH PRN PRN PRN Reason: Flush PICC Line Last Admin: 10/08/17 06:32 Dose: 200 unit Heparin Sodium (Porcine) (Heparin Central Flush) 0 unit IV.FLUSH DAILY [facility] Last Admin: 11/10/17 08:22 Dose: Not Given Fat Emulsion Intravenous (Intralipid 20% Inj) 250 mls @ 31.25 mls/hr IV.SIG SuTh [facility] Last Infusion: 11/09/17 18:42 Dose: Infused Multivitamins 10 ml/ Folic Acid 1 mg/ Amino Acids/Electrolytes/Dextrose 2, 010.2 mls @ 65 mls/hr IV.SIG Q24H [facility] Last Admin: 11/10/17 21:23 Dose: Not Given Levofloxacin/Dextrose (Levaquin 750 Mg Premix Inj) 150 mls @ 100 mls/hr IV.SIG Q24H [facility] Last Infusion: 11/10/17 23:30 Dose: Infused Metronidazole/Sodium Chloride (Flagyl 500 Mg Inj) 100 mls @ 100 mls/hr IV.SIG Q6H [facility] Last Admin: 11/11/17 06:32 Dose: Not Given Daptomycin 800 mg/ Sodium (Chloride) 100 mls @ 200 mls/hr IV.SIG Q24H [facility] Last Admin: 11/11/17 06:31 Dose: Not Given Lactobacillus Acidophilus (Lactinex) 1 tab PO BID [facility] Last Admin: 11/10/17 08:20 Dose: 1 tab Lactulose (Lactulose Liq) 30 ml PO DAILY PRN PRN Reason: SEVERE CONSITIPATION Magnesium Chloride (Mag64) 64 mg PO BID [facility] Last Admin: 11/10/17 08:22 Dose: 64 mg Metoprolol Tartrate (Lopressor) 12.5 mg PO BID [facility] Last Admin: 11/10/17 08:20 Dose: 12.5 mg Metoprolol Tartrate (Lopressor Inj) 5 mg IV.PUSH Q5M PRN PRN Reason: HR >120 Mirtazapine (Remeron) 15 mg PO [facility] Last Admin: 11/09/17 22:48 Dose: 15 mg Miscellaneous (Pill Splitter) 1 each OTHER UNSCH PRN PRN Reason: PILL SPIT Morphine Sulfate (Morphine Inj) 2 mg IV.PUSH Q3H PRN PRN Reason: PAIN SCALE 6 TO 10 Last Admin: 11/06/17 18:15 Dose: 2 mg Ondansetron HCl (Zofran Odt) 4 mg SL Q6H PRN PRN Reason: NAUSEA OR VOMITING Last Admin: 10/02/17 09:44 Dose: 4 mg Pantoprazole Sodium (Protonix Inj) 40 mg IV.PUSH Q24H [facility] Pantoprazole Sodium (Protonix) 20 mg PO DAILY [facility] Last Admin: 11/10/17 08:22 Dose: 20 mg Potassium Chloride (K-Dur) 40 meq PO BID [facility] Last Admin: 11/08/17 21:07 Dose: 40 meq Pravastatin Sodium (Pravachol) 40 mg PO DAILY [facility] Last Admin: 11/10/17 08:20 Dose: 40 mg Senna/Docusate Sodium ([place]-Colace) 1 tab PO BID PRN PRN Reason: CONSTIPATION Last Admin: 09/27/17 20:54 Dose: 1 tab Sennosides (Senokot) 17.2 mg PO Q12H PRN PRN Reason: Moderate Constipation Last Admin: 09/27/17 20:55 Dose: 17.2 mg Sodium Chloride (Ns Flush) 0 ml IV.FLUSH PRN PRN PRN Reason: FLUSH AFTER USING IV ACCESS Sodium Chloride (Ns Flush) 0 ml IV.FLUSH DAILY [facility] Sodium Chloride (Ns Flush) 0 ml IV.FLUSH PRN PRN PRN Reason: Flush After Blood Draws Sodium Chloride (Ns Flush) 0 ml IV.FLUSH DAILY [facility] Last Admin: 11/10/17 08:22 Dose: Not Given Sodium Chloride (Ns Flush) 0 ml IV.FLUSH PRN PRN PRN Reason: FLUSH AFTER USING IV ACCESS Sodium Chloride (Ns Flush) 0 ml IV.FLUSH PRN PRN PRN Reason: Flush After Blood Draws Trazodone HCl (Desyrel) 100 mg PO HS [facility] Last Admin: 11/09/17 22:46 Dose: 100 mg Vancomycin HCl (Vancomycin Po) 250 mg PO QID [facility] Last Admin: 11/10/17 13:32 Dose: Not Given Allergies Allergy/AdvReac Type Severity Reaction Status Date / Time amoxicillin Allergy Swelling Verified 09/27/17 17:54 Home Medications Medication Instructions Recorded Confirmed Type diclofenac sodium 75 mg PO BID 09/27/17 09/27/17 History omeprazole 20 mg PO DAILY 09/27/17 09/27/17 History Exam Vital signs: Vital Signs 11/10/17 12:00 11/10/17 16:00 11/10/17 20:00 Temperature 94.3 F L Pulse Rate 105 H 103 H 105 H Respiratory Rate 20 20 Blood Pressure 114/69 140/83 Pulse Oximetry 100 100 11/10/17 21:20 11/11/17 00:00 11/11/17 02:00 Temperature 96.9 F L Pulse Rate 116 H 110 H 105 H Respiratory Rate 19 19 Blood Pressure 107/80 149/79 H Pulse Oximetry 98 100 11/11/17 03:00 11/11/17 04:00 11/11/17 05:00 Temperature Pulse Rate 110 H 114 H 109 H Respiratory Rate 19 Blood Pressure 114/56 L Pulse Oximetry 100 11/11/17 06:00 11/11/17 08:00 Temperature 96.5 F L Pulse Rate 110 H 112 H Respiratory Rate 20 Blood Pressure 122/68 Pulse Oximetry 100 Intake & Output 11/10/17 11/11/17 11/11/17 18:59 06:59 18:59 Intake Total 250 / 250 0 / 0 Output Total 1600 / 1600 1600 / 1600 Balance -1600 / -1600 -1350 / -1350 0 / 0 Weight 105.7 kg Intake: IV 250 / 250 Levaquin 750 mg Premix Inj 150 150 / 150 ML @ 100 mls/hr IV.SIG Q24H [facility] Rx#:[id number] Flagyl 500 MG Inj 100 ML @ 100 100 / 100 mls/hr IV.SIG Q6H [facility] Rx#: [id number] Oral 0 / 0 0 / 0 Output: Stool 800 / 800 Urine Amount (Catheter) 1600 / 1600 800 / 800 Indwelling Urethral Catheter 1600 / 1600 800 / 800 Other: Date of Last Bowel Movement 11/10/17 11/14/17 Narrative: Obese female lying in bed Awake alert oriented 2-3. Did not know the exact date. Mildly dysphonic speech. Good facial strength extraocular movements intact no ptosis appreciated pupils 3 2 mm bilaterally shoulder shrug 4+ out of 5 neck extension flexion 5 out of 5 able to raise all 4 extremity gravity significant lower extremity edema 2+ pitting left knee scar from previous surgery reflex depressed gait not assessed secondary fall risk no involuntary movements noted otherwise - Constitutional no acute distress - Routine HEENT Exam Head: Present: normocephalic Results - Labs CBC & Chem 7: 11/12/17 05:39 11/12/17 05:39 Labs: Laboratory Results - last 24 hr 11/10/17 11/10/17 11/10/17 12:02 12:30 16:10 WBC 19.0 H RBC 3.20 L Hgb 9.1 L Hct 26.7 L MCV 83.4 D MCH 28.4 MCHC 34.0 RDW 16.6 Plt Count 111 L MPV 8.3 Prelim Diff (Auto) Manual diff required WBC Differential Manual diff final Seg Neuts % (Manual) 63 Band Neuts % (Manual) 18 H Lymphocytes % (Manual) 7 L Monocytes % (Manual) 12 H Abs Neuts (Manual) 15.4 H Differential Comment . Platelet Estimate Low L Platelet Morphology Normal Target Cells 1+ H Hematology Comments Sodium Potassium Chloride Carbon Dioxide Anion Gap BUN Creatinine Estimated GFR POC Glucose 82 99 Random Glucose Calcium Total Bilirubin AST ALT Alkaline Phosphatase Total Protein Albumin 11/10/17 11/10/17 11/10/17 21:21 21:23 22:17 WBC RBC Hgb Hct MCV MCH MCHC RDW Plt Count MPV Prelim Diff (Auto) WBC Differential Seg Neuts % (Manual) Band Neuts % (Manual) Lymphocytes % (Manual) Monocytes % (Manual) Abs Neuts (Manual) Differential Comment Platelet Estimate Platelet Morphology Target Cells Hematology Comments Sodium 144 Potassium 4.0 D Chloride 118 H Carbon Dioxide 17.4 L Anion Gap 9 BUN 15 Creatinine 0.90 Estimated GFR 79 L POC Glucose 69 91 Random Glucose 54 L D Calcium 8.2 L Total Bilirubin 0.3 AST 23 ALT 20 Alkaline Phosphatase 160 H Total Protein 4.7 L Albumin 0.9 L 11/11/17 11/11/17 11/11/17 06:25 08:55 10:24 WBC RBC Hgb Hct MCV MCH MCHC RDW Plt Count MPV Prelim Diff (Auto) WBC Differential Seg Neuts % (Manual) Band Neuts % (Manual) Lymphocytes % (Manual) Monocytes % (Manual) Abs Neuts (Manual) Differential Comment Platelet Estimate Platelet Morphology Target Cells Hematology Comments Sodium Potassium Chloride Carbon Dioxide Anion Gap BUN Creatinine Estimated GFR POC Glucose 61 L 68 97 Random Glucose Calcium Total Bilirubin AST ALT Alkaline Phosphatase Total Protein Albumin 11/11/17 10:40 WBC RBC Hgb Hct MCV MCH MCHC RDW Plt Count MPV Prelim Diff (Auto) WBC Differential Seg Neuts % (Manual) Band Neuts % (Manual) Lymphocytes % (Manual) Monocytes % (Manual) Abs Neuts (Manual) Differential Comment Platelet Estimate Platelet Morphology Target Cells Hematology Comments Sodium Potassium Chloride Carbon Dioxide Anion Gap BUN Creatinine Estimated GFR POC Glucose 89 Random Glucose Calcium Total Bilirubin AST ALT Alkaline Phosphatase Total Protein Albumin - Imaging Impressions Head CT 11/10/17 00:00 CONCLUSION: 1. Interval enlargement of the ventricular system of uncertain etiology. There is no clear evidence of an obstructing process. 2. Otherwise stable evaluation without evidence of acute infarct, hemorrhage, mass or edema. . Venous Doppler Study 11/10/17 00:00 CONCLUSION: 1. No venous thrombosis is identified within either lower extremity. 2. As described above, secondary to open wounds, the left external iliac, common femoral vein, and greater saphenous veins were not adequately evaluated. Chest X-Ray 11/10/17 15:16 CONCLUSION: 1. Left upper extremity PICC distal tip at the junction of the SVC and brachiocephalic vein. 2. Bibasilar airspace opacity could represent atelectasis or consolidation. Chest X-Ray 11/10/17 16:19 CONCLUSION: Left upper extremity PICC distal tip is in the left brachiocephalic vein. Review/Management - Diagnosis (1) Metabolic encephalopathy Code(s): G93.41 - Metabolic encephalopathy Status: Acute Current Visit: Yes (2) Pneumonia Code(s): J18.9 - Pneumonia, unspecified organism Status: Resolved Current Visit: Yes (3) Schizophrenia Code(s): F20.9 - Schizophrenia, unspecified Status: Chronic Current Visit: Yes (4) Hypertension Code(s): I10 - Essential (primary) hypertension Status: Acute Current Visit : Yes - Review/Management Plan: Metabolic encephalopathy related to Sirs, and episodes of hypoglycemia as noted by critical-care Mental status improved quite appropriate this morning MRI brain scan essentially negative no significant hydrocephalus Slightly dysphonic speech likely related to Sirs dehydration possible secondary mild pharyngeal weakness. Rest her facial strength appears intact to be further looked at by ENT in versus outpatient setting although she states that she is able to swallow appropriately Optimize nutritional support therapy No active neurological issues we will follow peripherally (2) Pneumonia Qualifiers: Pneumonia type: due to unspecified organism Laterality: left Lung location: lower lobe of lung Qualified Code(s): J18.1 - Lobar pneumonia, unspecified organism (4) Hypertension Qualifiers: Hypertension type: essential hypertension Qualified Code(s): I10 - Essential (primary) hypertension
--- NOTE | 2017-11-11 11:19 | P.PNPSY ---
Subjective Remarks: I have visited the patient today for psychiatric reevaluation. The patient has been reportedly quite agitated, delirious at times aggressive in the medical floor. But, at the moment of my evaluation the patient is quite lethargic, unable to engage in a conversation, no answering questions. She has been rapidly decompensated medically in the last days. I have communicated with primary medical team and the plan is to transfer the patient to the ICU. Mental Status Examination Appearance: Appropriate Consciousness: Clouded Orientation: Person, Place Speech: Other Mental Status Exam Remarks: MSE is limited due to the level of lethargy. Assessment and Plan - Plan Plan: Hold psychotropics. Managed agitation with Haldol 1-2 mg IM/IV every 8 hours as needed aggressive behavior and agitation. Follow-up Justification for Continued Inpatient Stay: No admission in psychiatry indicated
[2017-11-11] MEDS: Heparin Central Flush 100 UNIT/ML 5 ML Vial IV.FLUSH SCH ×2 (11:59)
[2017-11-11] MEDS: Pantoprazole Inj 40 MG Vial IV.PUSH SCH (12:00)
[2017-11-11] MEDS ORDERED: Heparin Central Flush 100 UNIT/ML 5 ML Vial IV.FLUSH ONE (12:49)
[2017-11-11 15:20] LABS: Baso % (Auto) 0.3 % (0.0-2.0); Eos # (Auto) 0.2 th/mm3 (0.0-0.4); Eos % (Auto) 1.7 % (0.0-4.0); Hematocrit 26.4 % (35.0-46.0); Hemoglobin 8.9 gm/dL (11.6-15.3); Lymph % (Auto) 8.7 % (9.0-44.0); Mean Corpuscular HGB Conc 33.6 % (32.0-36.0); Mean Corpuscular Hemoglobin 27.8 pg (27.0-34.0); Mean Corpuscular Volume 82.8 fL (80.0-100.0); Mean Platelet Volume 7.9 fL (7.0-11.0); Mono # (Auto) 0.6 th/mm3 (0.0-0.9); Mono % (Auto) 5.3 % (0.0-8.0); Neut # (Auto) 9.7 th/mm3 (1.8-7.7); Platelet Count 84 th/mm3 (150-450); Red Blood Count 3.19 mil/mm3 (4.00-5.30); Red Cell Distribution Width 16.4 % (11.6-17.2); White Blood Count 11.5 th/mm3 (4.0-11.0)
[2017-11-11] MEDS ORDERED: Dextrose 10% in Water Inj 500 ML IV.SIG SCH (15:30)
[2017-11-11 15:44] LABS: Alanine Aminotransferase 19 U/L (10-53); Albumin 0.8 g/dL (3.4-5.0); Alkaline Phosphatase 149 U/L (45-117); Anion Gap 11 meq/L (5-15); Aspartate Aminotransferase 20 U/L (15-37); Blood Urea Nitrogen 13 mg/dL (7-18); Calcium 7.6 mg/dL (8.5-10.1); Carbon Dioxide 18.4 meq/L (21.0-32.0); Chloride 118 meq/L (98-107); Glomerular Filtration Rate 72 mL/min (>89); Potassium 3.6 meq/L (3.5-5.1); Sodium 147 meq/L (136-145); Total Protein 4.5 g/dL (6.4-8.2)
[2017-11-11 15:46] LABS: Glucose,Random 46 mg/dL (74-106)
--- NOTE | 2017-11-11 16:47 | P.CONCC ---
History of Present Illness Service: Critical care medicine Consult date: 11/11/17 Requesting Physician: Chaz Vivar Reason for Consult: hypoglycemia Primary Care Provider: Chaz Vivar MD, R3 Family Provider: Chaz Vivar MD, R3 Chief Complaint: Abnormal CT scan History of Present Illness: This is a 52-year-old female with a very complex medical history who was admitted back in September 2017 for postoperative wound infection from her total knee arthroplasty. Her course has been complicated by multiple necrotizing soft tissue infections. She additionally has failure to thrive and severe acute protein calorie malnutrition for which she has been on total parenteral nutrition. She intermittently becomes agitated and pulls out her IV access. Today she was on the floor when she became worsening the febrile and altered. She pulled out her own PICC line overnight, and nursing staff was unable to reobtain IV access. Because she was off TPN she became quite hypoglycemic which was refractory to non-intravenous methods of glucose administration. Urgently a new PICC line was placed by interventional radiology and she was given IV dextrose. When her glucose improved, her mental status improved as well. She is transferred to the ICU for management of worsening recurrent sepsis, worsening wound infection, and hypoglycemia. When I evaluated the patient, she was more awake, nonfocal, moving all extremities. She endorses fatigue, but denies other symptoms. She specifically denies chest pain, shortness of breath, fever, chills, nausea, vomiting, abdominal pain. She does endorse diarrhea and has a rectal tube in place. She has a recent history of active C. difficile infection. Remainder of the review systems is negative unless otherwise stated. Review of Systems All other systems reviewed negative except as stated in HPI PMFSH - History History Provided By: Patient, Medical Record - Medical History Medical History: Medical History (Last Reviewed 11/11/17 @ 08:17 by Randa Quiros) Carpal tunnel syndrome on both sides Chronic neck pain H/O: hysterectomy High cholesterol Hypertension Hyperthyroidism Osteoarthritis Post hysterectomy menopause Renal disease Schizophrenia - Surgical History Surgical History: Surgical History (Last Reviewed 11/09/17 @ 08:36 by Balwinder Adams) History of neck surgery History of total knee replacement Previous section - Tobacco History Second Hand Smoke Exposure: Yes Smoking Status: Never smoker - Alcohol History How Often Do You Have a Drink Containing Alcohol: Never - Substance Use History Substance History: No History of Abuse - Travel History Recent Travel in the [place] Within the Last 8 Weeks: No Recent Travel Out of the Country Within the Last 8 Weeks: No - Immunization History Tetanus Immunization: Unsure Hx Influenza Vaccine This Season: Yes Medications and Allergies Active Medications: Active Medications Acetaminophen (Tylenol) 650 mg PO Q4H PRN PRN Reason: Pain 1-10 Last Admin: 10/08/17 22:12 Dose: 650 mg Hydrocodone Bitart/Acetaminophen ([place] 5/325) 1 tab PO Q4H PRN PRN Reason: pain scale 5 to 10 Last Admin: 11/10/17 08:21 Dose: 1 tab Al Hydroxide/Mg Hydroxide (Milk Of Cira Lilele) 30 ml PO Q12H PRN PRN Reason: Mild Constipation Albuterol (Duoneb Neb (Prn)) 1 ampul NEB Q6HR NEB PRN PRN Reason: SHORTNESS OF BREATH Last Admin: 11/09/17 20:14 Dose: 1 ampul Alteplase, Recombinant (Cathflo Activase Inj) 2 mg I-CATHETER Q2H PRN PRN Reason: catheter clot Last Admin: 10/31/17 05:28 Dose: 2 mg Aripiprazole (Abilify) 30 mg PO DAILY [facility] Last Admin: 11/10/17 08:21 Dose: 30 mg Bisacodyl (Dulcolax Supp) 10 mg RECTAL DAILY PRN PRN Reason: SEVERE CONSITIPATION Buspirone HCl (Buspar) 15 mg PO TID [facility] Last Admin: 11/10/17 13:31 Dose: Not Given Clonidine HCl (Catapres) 0.1 mg PO Q6H PRN PRN Reason: BP >180/100 Cod Liver Oil/Zinc Oxide (Desitin 40% Oint) 1 applicatio TOPICAL PRN PRN PRN Reason: RASH Dextrose (D50w Vial) 50 ml IV.PUSH UNSCH PRN PRN Reason: PER HYPOGLYCEMIA PROTOCOL Dextrose (Insta-Glucose (Adult) Gel) 31 gm PO UNSCH PRN PRN Reason: hypoglycemia Last Admin: 11/11/17 15:09 Dose: 31 gm Diltiazem HCl (Cardizem) 60 mg PO TID [facility] Last Admin: 11/10/17 13:31 Dose: Not Given Duloxetine HCl (Cymbalta) 60 mg PO DAILY [facility] Last Admin: 11/10/17 08:20 Dose: 60 mg Enalaprilat (Vasotec Inj) 1.25 mg IV.PUSH Q6H PRN PRN Reason: BP>180/110 Folic Acid (Folic Acid) 1 mg PO DAILY [facility] Last Admin: 11/10/17 08:21 Dose: 1 mg Glucagon (Glucagon Inj) 1 mg OTHER UNSCH PRN PRN Reason: for Hypoglycemia Protocol Last Admin: 11/11/17 08:33 Dose: 1 mg Haloperidol Lactate (Haldol Inj) 1 mg IV.PUSH Q6H PRN PRN Reason: AGITATION AND/OR HALLUCINATION Heparin Sodium (Porcine) (Heparin Central Flush) 0 unit IV.FLUSH DAILY [facility] Last Admin: 11/11/17 11:59 Dose: Not Given Heparin Sodium (Porcine) (Heparin Central Flush) 0 unit IV.FLUSH PRN PRN PRN Reason: Flush PICC Line Heparin Sodium (Porcine) (Heparin Central Flush) 0 unit IV.FLUSH PRN PRN PRN Reason: Flush PICC Line Last Admin: 10/08/17 06:32 Dose: 200 unit Heparin Sodium (Porcine) (Heparin Central Flush) 0 unit IV.FLUSH DAILY [facility] Last Admin: 11/11/17 11:59 Dose: Not Given Fat Emulsion Intravenous (Intralipid 20% Inj) 250 mls @ 31.25 mls/hr IV.SIG SuTh [facility] Last Infusion: 11/09/17 18:42 Dose: Infused Multivitamins 10 ml/ Folic Acid 1 mg/ Amino Acids/Electrolytes/Dextrose 2, 010.2 mls @ 65 mls/hr IV.SIG Q24H [facility] Last Admin: 11/10/17 21:23 Dose: Not Given Levofloxacin/Dextrose (Levaquin 750 Mg Premix Inj) 150 mls @ 100 mls/hr IV.SIG Q24H [facility] Last Infusion: 11/10/17 23:30 Dose: Infused Metronidazole/Sodium Chloride (Flagyl 500 Mg Inj) 100 mls @ 100 mls/hr IV.SIG Q6H [facility] Last Admin: 11/11/17 14:48 Dose: 100 mls/hr Daptomycin 800 mg/ Sodium (Chloride) 100 mls @ 200 mls/hr IV.SIG Q24H [facility] Last Admin: 11/11/17 06:31 Dose: Not Given Dextrose (D10w Inj) 500 mls @ 32.5 mls/hr IV.SIG .[id number] [facility] Stop: 11/11/17 19:59 Last Admin: 11/11/17 15:28 Dose: 32.5 mls/hr Lactobacillus Acidophilus (Lactinex) 1 tab PO BID [facility] Last Admin: 11/10/17 08:20 Dose: 1 tab Lactulose (Lactulose Liq) 30 ml PO DAILY PRN PRN Reason: SEVERE CONSITIPATION Magnesium Chloride (Mag64) 64 mg PO BID [facility] Last Admin: 11/10/17 08:22 Dose: 64 mg Metoprolol Tartrate (Lopressor) 12.5 mg PO BID [facility] Last Admin: 11/10/17 08:20 Dose: 12.5 mg Metoprolol Tartrate (Lopressor Inj) 5 mg IV.PUSH Q5M PRN PRN Reason: HR >120 Mirtazapine (Remeron) 15 mg PO HS [facility] Last Admin: 11/09/17 22:48 Dose: 15 mg Miscellaneous (Pill Splitter) 1 each OTHER UNSCH PRN PRN Reason: PILL SPIT Morphine Sulfate (Morphine Inj) 2 mg IV.PUSH Q3H PRN PRN Reason: PAIN SCALE 6 TO 10 Last Admin: 11/06/17 18:15 Dose: 2 mg Ondansetron HCl (Zofran Odt) 4 mg SL Q6H PRN PRN Reason: NAUSEA OR VOMITING Last Admin: 10/02/17 09:44 Dose: 4 mg Pantoprazole Sodium (Protonix Inj) 40 mg IV.PUSH Q24H [facility] Last Admin: 11/11/17 12:00 Dose: Not Given Pantoprazole Sodium (Protonix) 20 mg PO DAILY [facility] Last Admin: 11/10/17 08:22 Dose: 20 mg Potassium Chloride (K-Dur) 40 meq PO BID [facility] Last Admin: 11/08/17 21:07 Dose: 40 meq Pravastatin Sodium (Pravachol) 40 mg PO DAILY [facility] Last Admin: 11/10/17 08:20 Dose: 40 mg Senna/Docusate Sodium (Kaykay-Colace) 1 tab PO BID PRN PRN Reason: CONSTIPATION Last Admin: 09/27/17 20:54 Dose: 1 tab Sennosides (Senokot) 17.2 mg PO Q12H PRN PRN Reason: Moderate Constipation Last Admin: 09/27/17 20:55 Dose: 17.2 mg Sodium Chloride (Ns Flush) 0 ml IV.FLUSH PRN PRN PRN Reason: FLUSH AFTER USING IV ACCESS Sodium Chloride (Ns Flush) 0 ml IV.FLUSH DAILY [facility] Last Admin: 11/11/17 12:00 Dose: Not Given Sodium Chloride (Ns Flush) 0 ml IV.FLUSH PRN PRN PRN Reason: Flush After Blood Draws Sodium Chloride (Ns Flush) 0 ml IV.FLUSH DAILY [facility] Last Admin: 11/11/17 12:00 Dose: Not Given Sodium Chloride (Ns Flush) 0 ml IV.FLUSH PRN PRN PRN Reason: FLUSH AFTER USING IV ACCESS Sodium Chloride (Ns Flush) 0 ml IV.FLUSH PRN PRN PRN Reason: Flush After Blood Draws Trazodone HCl (Desyrel) 100 mg PO HS [facility] Last Admin: 11/09/17 22:46 Dose: 100 mg Vancomycin HCl (Vancomycin Po) 250 mg PO QID [facility] Last Admin: 11/10/17 13:32 Dose: Not Given Allergies Allergy/AdvReac Type Severity Reaction Status Date / Time amoxicillin Allergy Swelling Verified 09/27/17 17:54 Home Medications Medication Instructions Recorded Confirmed Type diclofenac sodium 75 mg PO BID 09/27/17 09/27/17 History omeprazole 20 mg PO DAILY 09/27/17 09/27/17 History Physical Exam Vital signs: Vital Signs 11/10/17 20:00 11/10/17 21:20 11/11/17 00:00 Temperature 36.1 C L Pulse Rate 105 H 116 H 110 H Respiratory Rate 19 Blood Pressure 107/80 Pulse Oximetry 98 11/11/17 02:00 11/11/17 03:00 11/11/17 04:00 Temperature Pulse Rate 105 H 110 H 114 H Respiratory Rate 19 19 Blood Pressure 149/79 H 114/56 L Pulse Oximetry 100 100 11/11/17 05:00 11/11/17 06:00 11/11/17 08:00 Temperature 35.8 C L Pulse Rate 109 H 110 H 112 H Respiratory Rate 20 Blood Pressure 122/68 Pulse Oximetry 100 Intake & Output 11/10/17 11/11/17 11/11/17 18:59 06:59 18:59 Intake Total 250 / 250 0 / 0 Output Total 1600 / 1600 1600 / 1600 Balance -1600 / -1600 -1350 / -1350 0 / 0 Weight 105.7 kg Intake: IV 250 / 250 Levaquin 750 mg Premix Inj 150 150 / 150 ML @ 100 mls/hr IV.SIG Q24H [facility] Rx#:[id number] Flagyl 500 MG Inj 100 ML @ 100 100 / 100 mls/hr IV.SIG Q6H [facility] Rx#: [id number] Oral 0 / 0 0 / 0 Output: Stool 800 / 800 Urine Amount (Catheter) 1600 / 1600 800 / 800 Indwelling Urethral Catheter 1600 / 1600 800 / 800 Other: Date of Last Bowel Movement 11/10/17 11/14/17 Narrative: GENERAL: Morbidly obese -[place]ian female, lying in bed HEENT: Normocephalic. Atraumatic. Pupils equal, round, reactive, conjugate. Mucous membranes are moist NECK: Trachea is midline. There is no JVD. CHEST: Equal chest rise. Nasal cannula oxygen. CARDIOVASCULAR: Tachycardic rate in the 120s. Regular rhythm. Sinus. ABDOMEN: Morbidly obese, soft, nontender, nondistended. No guarding. In the lower abdominal area there is an opening wound which is quite complex and has closed and stapled areas in the lower midline of the abdomen and then a transverse area in the suprapubic region which is mostly opened down to the subcutaneous fat. This area is draining purulent drainage. In addition the wound extends nearly over the right anterior hip region which also appears to be open and draining purulent drainage down into the subcutaneous fat. There are also areas down into the left anterior hip area also draining purulence. I do not see any area that is below the abdominal fascia. MUSCULOSKELETAL: Pulses 2+. Gross anasarca. NEUROLOGICAL: RASS 0. CAM -. Follows commands in all 4 extremities. No focal deficits. - Urinary Catheter Management Female External Cath placed during this visit: no Indwelling Urethral Catheter Cath placed during this visit: yes, but has since been removed by the nurse Reason for continuing: Severe pressure ulcer/wound Insertion date: 10/09/17 Insertion time: 14:00 Removal date: 10/05/17 Removal time: 17:30 Septic Shock Reassessment Septic shock perfusion: reassessment completed Assessment and Plan - Assessment and Plan Plan: Assessment: 52-year-old female with an extensive recent medical history including multiple wound infections and severe acute protein calorie malnutrition who presents with recurrent severe sepsis and worsening wound infection. In terms of her altered mental status, I think this is secondary to hypoglycemia which is certainly secondary to her lack of TPN because she pulled out her PICC line. Now that her glycemic control is improved, her mental status is back to baseline, and I do not see any concerning neuro symptoms that would suggest a stroke, seizure or any other neurologic finding. I do think that her wound looks to have ongoing active infection. She also appears quite intravascularly dry, but her anasarca suggest that she has significant protein malnutrition as well as total body hypervolemia. We will use a little concentrated albumin for resuscitation to restore her intravascular volume. She is highly complex and at this point many organs have chronically failed. I agree with palliative care consult as despite her young age, her overall 1 year mortality rate is very high given that she has had almost no improvement at all in considerable worsening of her overall function and medical history while inpatient over the last few months. Active problems: Severe sepsis Sinus tachycardia Worsening deep tissue wound infection Severe hypoglycemia Metabolic encephalopathyresolving Recommendations: Concentrated albumin for IV resuscitation Continue IV antibiotics Restart TPN. If at any point TPN must be discontinued, start D10W at 40 miles an hour Frequent glycemic checks D50 for hypoglycemia Frequent neurochecks Avoid long-acting sedatives Sinus tachycardia is likely compensatory mechanism and from Sirs response, and I think aggressive attempts to lower her heart rate would be futile. She is likely compensating for her cardiac output this way and given her young age she should be allowed to mount a tachycardic response.
--- NOTE | 2017-11-11 17:32 | MR ---
EXAM DATE: 11/11/2017 5:04 PM EDT AGE/SEX: 52 years / Female INDICATIONS: . Decreased level of consciousness. CLINICAL DATA: This is the patient's initial encounter. Patient reports that signs and symptoms have been present for 1 day and indicates a pain score of 0/10. MEDICAL/SURGICAL HISTORY: Hypertension. Osteoarthritis. Renal insufficiency. Fusion, cervical . section. Hysterectomy. COMPARISON: [facility] – [place], [place] HEAD W/O CONTRAST, 11/10/2017. . TECHNIQUE: Multiplanar, multisequence examination of the brain was performed without contrast. FINDINGS: Motion artifact is present throughout the exam. Cerebrum: The ventricles are normal for age. No evidence of midline shift, mass lesion, hemorrhage or acute infarction. No extraaxial fluid collections are seen. The pituitary gland and suprasellar cistern are normal in configuration. White Matter: No significant signal abnormalities are seen in the white matter. Posterior Fossa: The cerebellum and brainstem are intact. The 4th ventricle is midline. The cerebel lopontine angle is unremarkable. The cerebellar tonsils are normal in position. Diffusion Imaging: No focal areas of restricted diffusion are seen. No evidence of acute infarction . Extracranial: The visualized portions of the orbits and paranasal sinuses are unremarkable. CONCLUSION: 1. Motion artifact is present throughout the scan. 2. Examination is diagnostic. 3. No evidence of acute infarct, hemorrhage, mass or edema. Electronically signed by: Sherwin Rhodes MD 11/11/2017 5:30 PM EDT
[2017-11-11] MEDS: Multivitamin Inj 10 ML, Folic Acid Inj 1 MG in TPN Fluid 2 Liter 2,000 ML IV.SIG SCH (20:00)
--- NOTE | 2017-11-11 21:49 | MG ---
cc: Jose Catalan MD ELECTROENCEPHALOGRAM RECORD NUMBER: [id number] DESCRIPTION: Significant amount of myogenic electrical artifact. Background then showing generalized low-amplitude slow theta and delta activity more than midway through the recording, 10-20 microvolts. Limited driving with photic stimulation. Single-lead EKG showing sinus tachycardia. INTERPRETATION: Significant amount of myogenic artifact and appearance of moderate underlying encephalopathy and possibly sleep state. Clinical correlation. MD BASSAM Rios/varghese , 09:14 PM , 09:18 PM
[2017-11-12] MEDS: DAPTOmycin Inj 800 MG in Sodium Chlor 0.9% Inj 100 ML IV.SIG SCH ×2 (00:31→23:21)
[2017-11-12] MEDS: Metoprolol Inj 5 MG/5 ML Vial IV.PUSH PRN (01:18)
[2017-11-12] MEDS: Morphine Sulfate Inj 2 MG/ML Vial IV.PUSH PRN ×2 (01:29→17:34)
[2017-11-12 07:02] LABS: Baso % (Auto) 0.3 % (0.0-2.0); Eos # (Auto) 0.1 th/mm3 (0.0-0.4); Eos % (Auto) 0.9 % (0.0-4.0); Hematocrit 24.8 % (35.0-46.0); Hemoglobin 8.3 gm/dL (11.6-15.3); Lymph % (Auto) 8.4 % (9.0-44.0); Mean Corpuscular HGB Conc 33.5 % (32.0-36.0); Mean Corpuscular Hemoglobin 28.3 pg (27.0-34.0); Mean Corpuscular Volume 84.5 fL (80.0-100.0); Mean Platelet Volume 8.3 fL (7.0-11.0); Mono # (Auto) 0.6 th/mm3 (0.0-0.9); Neut # (Auto) 9.9 th/mm3 (1.8-7.7); Neut % (Auto) 85.4 % (16.0-70.0); Platelet Count 88 th/mm3 (150-450); Red Blood Count 2.93 mil/mm3 (4.00-5.30); Red Cell Distribution Width 16.7 % (11.6-17.2); White Blood Count 11.6 th/mm3 (4.0-11.0)
[2017-11-12 07:27] LABS: Albumin 0.9 g/dL (3.4-5.0); Anion Gap 13 meq/L (5-15); Aspartate Aminotransferase 20 U/L (15-37); Blood Urea Nitrogen 16 mg/dL (7-18); Calcium 8.1 mg/dL (8.5-10.1); Carbon Dioxide 16.4 meq/L (21.0-32.0); Chloride 116 meq/L (98-107); Glomerular Filtration Rate 56 mL/min (>89); Glucose,Random 123 mg/dL (74-106); Potassium 3.3 meq/L (3.5-5.1); Sodium 145 meq/L (136-145)
[2017-11-12 07:31] LABS: Alanine Aminotransferase 20 U/L (10-53); Alkaline Phosphatase 149 U/L (45-117); Total Protein 4.5 g/dL (6.4-8.2)
[2017-11-12 08:10] LABS: Eosinophils 1 % (0-4); Lymphocytes 7 % (9-44); Monocytes 2 % (0-8); Platelet Morphology Normal (Normal); Target Cells 1+
[2017-11-12] MEDS: Pantoprazole Inj 40 MG Vial IV.PUSH SCH (10:10)
[2017-11-12] MEDS: Heparin Central Flush 100 UNIT/ML 5 ML Vial IV.FLUSH SCH ×2 (10:10→10:11)
--- NOTE | 2017-11-12 11:20 | P.PNID ---
Subjective Remarks: ID coverage. Follow up. 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 Post op it appears she was discharged to a rehab. She was discharged from the rehab to home with her on August 23. Patient reports she lives at home with her who is on disability. Unsure of nature of disability at this time and his ability to take care of her. She was reportedly able to ambulate on her own initially followed by weakness and need for walker and then to a point where she did not want to get out of bed. It has been reported to others that she had some discharge at the left surgical site area and ortho surgeon prescribed oral keflex which reportedly lead to some improvement. She reportedly completed a week of antibiotic treatment with last day scheduled for today with some improvement in her knee pain. However her stated that she was starting to have more drainage from her knee just over the past day or so. He had pointed to several areas that had been draining pus from just above and just below the knee. He stated that a cup full of pus would drain at a time. Additionally the abdominal fold wounds appear to have been present for atleast 3 weeks now. With this background patient presented to the ED with complaints of worsening shortness of breath and mental status accompanied with symptoms of diarrhea (3 days, non-bloody) and decreased p.o. intake (5 days). She was also brought into the hospital due to infection of her knee that improved with Keflex p.o but now has returned with new additional drainage over the past few days. ID consulted for evaluation and Mment of Left knee prosthetic joint infection and neutropenia. Patient underwent incision and debridement of the inferior abdominal wall and proximal inner thighs on 10/12/2017. Receiving IV antibiotics for left knee infection/C difficile. CT scan showed small joint effusion and subcutaneous edema of the fat at the left knee. Overnight events reviewed. ebony RN: wounds weeping with areas of tunneling in the center of the abdomen. Patient is awake, alert and communicative. Denies nausea vomiting. Denies chills. No fever. ebony [facility] resident: aspiration event over the weekend Antibiotics: Cefepime IV Dapto IV Vancomycin PO. Lines: Lines ok. Past Medical History: reviewed Allergies/Adverse Reactions: Allergies amoxicillin Allergy (Verified 09/27/17 17:54) Swelling Objective Vital Signs 11/11/17 12:00 11/11/17 12:12 11/11/17 13:34 Temperature 97.4 F L Pulse Rate 122 H 108 H Respiratory Rate 27 H 18 Blood Pressure 110/71 Pulse Oximetry 98 99 11/11/17 14:00 11/11/17 15:00 11/11/17 16:00 Temperature Pulse Rate 121 H 122 H 127 H Respiratory Rate 24 27 H 35 H Blood Pressure Pulse Oximetry 100 100 11/11/17 16:17 11/11/17 16:34 11/11/17 17:29 Temperature Pulse Rate 127 H 125 H 124 H Respiratory Rate 36 H 31 H 34 H Blood Pressure 103/70 102/69 Pulse Oximetry 100 100 11/11/17 18:00 11/11/17 19:00 11/11/17 20:00 Temperature 101.1 F H Pulse Rate 121 H 123 H 121 H Respiratory Rate 33 H 34 H 31 H Blood Pressure 134/70 Pulse Oximetry 89 L 100 11/11/17 21:29 11/12/17 00:00 11/12/17 01:05 Temperature 101.1 F H Pulse Rate 121 H 114 H 120 H Respiratory Rate 28 H 30 H 28 H Blood Pressure 139/74 Pulse Oximetry 100 11/12/17 04:00 Temperature 100.1 F H Pulse Rate 115 H Respiratory Rate 28 H Blood Pressure 144/74 H Pulse Oximetry 100 Intake & Output 11/11/17 11/12/17 11/12/17 18:59 06:59 18:59 Intake Total 100 / 100 2950 / 2950 0 / 0 Output Total 300 / 300 550 / 550 220 / 220 Balance -200 / -200 2400 / 2400 -220 / -220 Weight 108.7 kg Intake: IV 100 / 100 450 / 450 Cubicin Inj 800 MG In NS Inj 100 / 100 100 ML @ 200 mls/hr IV.SIG Q24H [facility] Rx#:[id number] Levaquin 750 mg Premix Inj 150 150 / 150 ML @ 100 mls/hr IV.SIG Q24H [facility] Rx#:[id number] Flagyl 500 MG Inj 100 ML @ 100 100 / 100 200 / 200 mls/hr IV.SIG Q6H [facility] Rx#: [id number] Oral 0 / 0 0 / 0 0 / 0 Anesthesia Amount 1300 / 1300 Other 1200 / 1200 Output: Urine 200 / 200 200 / 200 220 / 220 Stool 100 / 100 100 / 100 Estimated Blood Loss 30 / 30 Urine Amount (Catheter) / Indwelling Urethral Catheter Wound Drainage 0 / 0 ZAMZAM Drain 0 / 0 Other: Other Intake Source Saline Solution # Voids 1 # Incontinent Voids 1 Date of Last Bowel Movement 11/11/17 11/12/17 # Incontinent Bowel Movements 1 100 # Emeses 1 11/08/17 09:40 Blood - Other Aerobic Blood Culture - Preliminary No growth in 4 days 11/08/17 09:40 Blood - Other Anaerobic Blood Culture - Preliminary No growth in 4 days 11/08/17 06:50 Blood - Other Aerobic Blood Culture - Preliminary No growth in 4 days 11/08/17 06:50 Blood - Other Anaerobic Blood Culture - Preliminary No growth in 4 days Lab - Hematology Results 11/10/17 11/11/17 11/12/17 12:02 14:02 05:39 CBC w Diff WBC 19.0 H 11.5 H 11.6 H RBC 3.20 L 3.19 L 2.93 L Hgb 9.1 L 8.9 L 8.3 L Hct 26.7 L 26.4 L 24.8 L MCV 83.4 D 82.8 84.5 MCH 28.4 27.8 28.3 MCHC 34.0 33.6 33.5 RDW 16.6 16.4 16.7 Plt Count 111 L 84 L 88 L MPV 8.3 7.9 8.3 Prelim Diff (Auto) Manual diff required Slide review pending Slide review pending Neut % (Auto) 84.0 H 85.4 H Lymph % (Auto) 8.7 L 8.4 L [place] % (Auto) 5.3 5.0 Eos % (Auto) 1.7 0.9 Baso % (Auto) 0.3 0.3 Neut # (Auto) 9.7 H 9.9 H Lymph # (Auto) 1.0 1.0 [place] # (Auto) 0.6 0.6 Eos # (Auto) 0.2 0.1 Baso # (Auto) 0.0 0.0 WBC Differential Manual diff final . Manual diff final Diff Scan Auto diff confirmed Seg Neuts % (Manual) 63 66 Band Neuts % (Manual) 18 H 23 H Lymphocytes % (Manual) 7 L 7 L Monocytes % (Manual) 12 H 2 Eosinophils % (Manual) 1 Basophils % (Manual) 1 Abs Neuts (Manual) 15.4 H 10.3 H Differential Comment . . . Platelet Estimate Low L Low L Platelet Morphology Normal Normal Target Cells 1+ H 1+ H Hematology Comments Lab - Chemistry Results 11/10/17 11/10/17 11/10/17 12:30 16:10 21:21 Sodium Potassium Chloride Carbon Dioxide Anion Gap BUN Creatinine Estimated GFR POC Glucose 82 99 69 Random Glucose Calcium Total Bilirubin AST ALT Alkaline Phosphatase Total Protein Albumin 11/10/17 11/10/17 11/11/17 21:23 22:17 06:25 Sodium 144 Potassium 4.0 D Chloride 118 H Carbon Dioxide 17.4 L Anion Gap 9 BUN 15 Creatinine 0.90 Estimated GFR 79 L POC Glucose 91 61 L Random Glucose 54 L D Calcium 8.2 L Total Bilirubin 0.3 AST 23 ALT 20 Alkaline Phosphatase 160 H Total Protein 4.7 L Albumin 0.9 L 11/11/17 11/11/17 11/11/17 08:55 10:24 10:40 Sodium Potassium Chloride Carbon Dioxide Anion Gap BUN Creatinine Estimated GFR POC Glucose 68 97 89 Random Glucose Calcium Total Bilirubin AST ALT Alkaline Phosphatase Total Protein Albumin 11/11/17 11/11/17 11/11/17 11:30 14:02 15:07 Sodium 147 H Potassium 3.6 Chloride 118 H Carbon Dioxide 18.4 L Anion Gap 11 BUN 13 Creatinine 0.98 Estimated GFR 72 L POC Glucose 89 59 L Random Glucose 46 L* Calcium 7.6 L Total Bilirubin 0.2 AST 20 ALT 19 Alkaline Phosphatase 149 H Total Protein 4.5 L Albumin 0.8 L 11/11/17 11/11/17 11/11/17 15:52 17:33 19:53 Sodium Potassium Chloride Carbon Dioxide Anion Gap BUN Creatinine Estimated GFR POC Glucose 93 76 73 Random Glucose Calcium Total Bilirubin AST ALT Alkaline Phosphatase Total Protein Albumin 11/12/17 11/12/17 05:39 06:10 Sodium 145 Potassium 3.3 L Chloride 116 H Carbon Dioxide 16.4 L Anion Gap 13 BUN 16 Creatinine 1.22 H Estimated GFR 56 L POC Glucose 144 H Random Glucose 123 H Calcium 8.1 L Total Bilirubin 0.2 AST 20 ALT 20 Alkaline Phosphatase 149 H Total Protein 4.5 L Albumin 0.9 L Imaging: ITS Impressions Tibia/Fibula X-Ray 09/27/17 00:00 CONCLUSION: No acute left leg abnormality is identified. Abdomen/Pelvis CT 09/27/17 08:10 CONCLUSION: 1. Mild hepatic steatosis. 2. Thickening of the colon secondary to lack of distention versus colitis. 3. Left lower lobe consolidation and/or atelectasis. There does appear to be a 1.4 cm cavitary area which makes consolidation likely. Chest CTA 09/27/17 08:22 CONCLUSION: 1. No pulmonary embolus. 2. Consolidation or atelectasis at the left lower lobe. Knee CT 10/18/17 00:00 CONCLUSION: 1. Small joint effusion. 2. Nonspecific subcutaneous edema in the subcutaneous soft tissues above and below the knee. 3. No significant changes compared to the prior exam. Ankle X-Ray 10/19/17 00:00 CONCLUSION: 1. No acute fracture or dislocation. Knee X-Ray 10/19/17 00:00 CONCLUSION: 1. Total knee prosthesis in place. 2. Moderate-sized knee joint effusion. Head CT 11/10/17 00:00 CONCLUSION: 1. Interval enlargement of the ventricular system of uncertain etiology. There is no clear evidence of an obstructing process. 2. Otherwise stable evaluation without evidence of acute infarct, hemorrhage, mass or edema. . Venous Doppler Study 11/10/17 00:00 CONCLUSION: 1. No venous thrombosis is identified within either lower extremity. 2. As described above, secondary to open wounds, the left external iliac, common femoral vein, and greater saphenous veins were not adequately evaluated. Chest X-Ray 11/10/17 16:19 CONCLUSION: Left upper extremity PICC distal tip is in the left brachiocephalic vein. Head MRI 11/11/17 00:00 CONCLUSION: 1. Motion artifact is present throughout the scan. 2. Examination is diagnostic. 3. No evidence of acute infarct, hemorrhage, mass or edema. Physical Exam: GENERAL: Alert and oriented, no acute distress. HEENT: Pupils reactive to light. Extraocular movements intact. No icterus. NECK: Supple without adenopathy. No swelling. LUNGS: Decreased breath sounds. HEART: Regular S1 and S2. ABDOMEN: Obese, soft. Nontender. Groin and abdominal area with sutures in place and dressing with weeping of serous discharge noted.Tunneling noted in the center of the abdomen. EXTREMITIES: swelling of the left knee. less warmth. Tiny hole a couple millimeters at the lower aspect of the knee surgical incision. Purulent drainage on noted 10/19. SKIN: No diffuse rash. NEUROLOGIC: Awake and alert and oriented. Nonfocal. PSYCH: Pleasant, calm and cooperative. Assessment and Plan - Plan IMPRESSION: Neutropenic sepsis WBC now elevated. Receive Neupogen but the white blood cell count did not plateau is continuing to rise. Possibly secondary to infection. Leucopenia, pancytopenia: ? MTX, ? Psych meds, ? Sepsis contributing. Abdominal fold cellulitis/skin breakdown. Post incision and debridement and closure of skin fold. General surgery following. She dispose any panniculectomy. Groin cellulitis, Mons pubis cellulitis/skin breakdown. Neurosurgery following. H/o fall with scraping of left knee. Left knee hardware in place. CT with fluid collection. Left knee infection - prior wound culture had Pseudomonas and group B beta strep. VRE now. Diarrhea - Positive C. difficile. Acute renal failure; prerenal vs meds Thrombocytopenia: ? meds ? Cefepime has been on it few weeks. RECOMMENDATIONS: Continue Dapto IV for Grp D Enterococcus pending ID will follow cultures to deescalate. Continue Levaquin Continue Flagyl IV for anaerobic coverage of abd wall wound and aspiration pneumonia. Start Diflucan for possible fungal component of infection. Continue Vancomycin for C. difficile. dw and RN If any change in clinical condition consider changing regimen to Zyvox IV for MRSA and VRE coverage, Micafungin for possible fungemia(pt on TPN and Broad spectrum antibiotics) and Meropenem as patient at risk for ESBL and resistant organisms. Repeat blood cultures today. Overall wound looks worse, clinically new fevers, aspirated, nutrition issues, hypoalbuminemia which will affect healing. Agree with Palliative care to address goals of therapy.
--- NOTE | 2017-11-12 12:10 | P.PNGS ---
Subjective Patient reports: fever (low grade fever, aspiration over weekend, hypoglycemic event) Physical Exam Vital signs: Vital Signs 11/11/17 12:12 11/11/17 13:34 11/11/17 14:00 Temperature Pulse Rate 108 H 121 H Respiratory Rate 18 24 Blood Pressure Pulse Oximetry 98 99 100 11/11/17 15:00 11/11/17 16:00 11/11/17 16:17 Temperature Pulse Rate 122 H 127 H 127 H Respiratory Rate 27 H 35 H 36 H Blood Pressure 103/70 Pulse Oximetry 100 100 11/11/17 16:34 11/11/17 17:29 11/11/17 18:00 Temperature Pulse Rate 125 H 124 H 121 H Respiratory Rate 31 H 34 H 33 H Blood Pressure 102/69 Pulse Oximetry 100 89 L 11/11/17 19:00 11/11/17 20:00 11/11/17 21:17 Temperature 101.1 F H Pulse Rate 123 H 121 H 117 H Respiratory Rate 34 H 31 H 32 H Blood Pressure 134/70 134/70 Pulse Oximetry 100 89 L 11/11/17 21:29 11/11/17 22:00 11/11/17 23:00 Temperature Pulse Rate 121 H 127 H 117 H Respiratory Rate 28 H 39 H 32 H Blood Pressure 140/91 H 133/84 Pulse Oximetry 100 100 11/12/17 00:00 11/12/17 01:01 11/12/17 01:05 Temperature 101.1 F H Pulse Rate 114 H 118 H 120 H Respiratory Rate 30 H 34 H 28 H Blood Pressure 139/74 201/108 H Pulse Oximetry 100 98 11/12/17 01:09 11/12/17 01:23 11/12/17 01:35 Temperature Pulse Rate 124 H 111 H 113 H Respiratory Rate 36 H 47 H 26 H Blood Pressure 197/93 H 172/103 H 151/89 H Pulse Oximetry 100 100 100 11/12/17 02:00 11/12/17 03:00 11/12/17 04:00 Temperature 100.1 F H Pulse Rate 115 H 115 H 115 H Respiratory Rate 24 27 H 28 H Blood Pressure 146/78 H 147/74 H 144/76 H Pulse Oximetry 100 100 100 11/12/17 05:00 11/12/17 05:49 11/12/17 06:00 Temperature Pulse Rate 114 H 102 H 102 H Respiratory Rate 31 H 22 22 Blood Pressure 151/104 H 137/73 125/71 Pulse Oximetry 100 100 100 11/12/17 07:00 11/12/17 08:00 11/12/17 09:00 Temperature Pulse Rate 111 H 107 H 113 H Respiratory Rate 28 H 26 H 29 H Blood Pressure 138/85 137/93 H 132/81 Pulse Oximetry 100 100 99 11/12/17 10:00 11/12/17 10:01 11/12/17 11:00 Temperature Pulse Rate 105 H 105 H 105 H Respiratory Rate 27 H 24 26 H Blood Pressure 156/89 H 132/86 Pulse Oximetry 100 100 100 11/12/17 12:00 11/12/17 12:01 Temperature Pulse Rate 102 H 101 H Respiratory Rate 23 21 Blood Pressure 130/63 Pulse Oximetry 100 100 Intake & Output 11/11/17 11/12/17 11/12/17 18:59 06:59 18:59 Intake Total 100 / 100 2950 / 2950 0 / 0 Output Total 300 / 300 550 / 550 220 / 220 Balance -200 / -200 2400 / 2400 -220 / -220 Weight 108.7 kg Intake: IV 100 / 100 450 / 450 Cubicin Inj 800 MG In NS Inj 100 / 100 100 ML @ 200 mls/hr IV.SIG Q24H [facility] Rx#:[id number] Levaquin 750 mg Premix Inj 150 150 / 150 ML @ 100 mls/hr IV.SIG Q24H [facility] Rx#:[id number] Flagyl 500 MG Inj 100 ML @ 100 100 / 100 200 / 200 mls/hr IV.SIG Q6H [facility] Rx#: [id number] Oral 0 / 0 0 / 0 0 / 0 Anesthesia Amount 1300 / 1300 Other 1200 / 1200 Output: Urine 200 / 200 200 / 200 220 / 220 Stool 100 / 100 100 / 100 Estimated Blood Loss 30 / 30 Urine Amount (Catheter) 220 / 220 Indwelling Urethral Catheter 220 / 220 Wound Drainage 0 / 0 ZAMZAM Drain 0 / 0 Other: Other Intake Source Saline Solution # Voids 1 # Incontinent Voids 1 Date of Last Bowel Movement 11/11/17 11/12/17 # Incontinent Bowel Movements 1 100 # Emeses 1 - Routine Abdominal Exam Present: soft (incision approximated, scant drainage, LLE thigh adeptec mesh removed. graunulating) - Urinary Catheter Management Female External Cath placed during this visit: no Indwelling Urethral Catheter Cath placed during this visit: yes, but has since been removed by the nurse Reason for continuing: Severe pressure ulcer/wound Insertion date: 10/09/17 Insertion time: 14:00 Removal date: 10/05/17 Removal time: 17:30 Assessment and Plan - Plan s/p I and D with closure dressing changes keep incisions dry, continue wound care tx for c diff- ID following keep wounds clear of stool, continue dressing changes wet to dry to center and LLE, dry dressing at other incisions agree with tpn, consider alternative dobhoff tube feeding will consider operative j tube when nutrition improved await palliation input
--- NOTE | 2017-11-12 12:36 | P.CONPAL ---
Consult Service: Palliative Care Requesting Physician: Chaz Vivar Reason for Consult: a. To assist with evaluation and management of symptoms including: dyspnea, pain, debility, anxiety b. To assist medical decision maker(s) with: better understanding of current medical conditions; weighing benefits/burdens of medical treatment options; making medical treatment decisions. Primary Care Provider: Chaz Vivar MD, R3 History of Present Illness History of Present Illness: This is a morbidly obese 52-year-old female with history of schizophrenia, bipolar, anxiety, depression, hypertension, rheumatoid arthritis, S/P gastric sleeve, spinal stenosis s/p ACD, s/p left total knee replacement 07/2017 , admitted 09/27 for left knee and abdominal wound infections. She was d/c from rehab 08/23/17. She presented 09/27 via ambulance for shortness of breath over the previous week, diarrhea, abd pain, vomiting, change in mental status. On arrival she was tachycardic and hypotensive. WBC 0.9, hgb 5.5, elevated ESR > 140. She was noted to have abdominal wounds which reportedly were present when she was discharged from rehab. Abdomen/pelvis CT showed mild fatty liver, possible colitis, left lower lobe consolidation versus atelectasis. Left knee CT scan showed joint effusion with fluid tracking in the knee. At the time of presentation she was undergoing treatment from orthopedic surgeon for a left leg infection that was apparently draining cupfuls of fluid. Complained of intermittent chest pain. Hospital course notable for following: * 09/27 Hematology/oncology was consulted for leukopenia and anemia which they felt was related to sepsis and iron deficiency. Orthopedic surgery consulted. Psychiatry consulted, felt pt having delerium. * 09/28 Infectious diseases consulted for neutropenia and knee hardware infection , find abd cellulitis, groin celllulitis, mons pubis cellulitis, concern for daniel esophagitis * 09/30 left knee wound culture growing Pseudomonas and group B strep, Neupogen started * 10/06 patient was to be discharged and at time of discharge she and her refused, she was complaining about anal pain and found to have new perineal wound * 10/09 underwent I&D of abdominal wall and bilateral thighs, wound VAC placement * 10/12 incision and drainage with debridement abdominal wall and bilateral lower thighs, wound VAC change * 10/15 wound VAC change and closure of abdominal wall * 10/19 patient fell and left knee started draining pus, left groin wound dehisced * 11/01 I& D abd, bilat thighs, closure; + c diff; + VRE abd wound * 11/09 CXR shows worsening left lower lobe consolidation; pt had episode choking/coughing, poss aspiration after being fed by * 11/10 had been on TPN via PICC but pt removed her own picc line; NPO per PIPE CLEANER for dysphagia * 11/11 transferred [place] [facility] [place] [facility] for mgmt recurring worsening sepsis , worsening wound infections, hypoglycemia On my eval pt is resting in bed, in soft restraints. She is alert and oriented x 2. Thinks it's 1965 and President Latrell is in charge. SHe admits pain in her left knee and abdomen. Pain is constant with exacerbations and is like a dull ache-- she does not specify which pain and is unable to further quantify or qualify on my eval. She admits SOB over the past few weeks, and last week developed a cough. She she says she feels SOB at rest. She fell during this admission when she got out of bed to go to the bathroom. Her understanding of why she is here is "I'm trying to get my body right." She sees a log sawyer for RA, was on methotrexate. After her knee surgery she was taking hydrocodone apap 5/325 1-2 q6h. Takes busprione, duloxetine, trazodone. Function/Cognitive Trajectory: Recently d/c from rehab 08/23/17, reportedly was able to ambulate on her initial 4 -5 days after d/c. Subsequently she became weaker, unable to lift her leg to get in shower, and needing walker. Family reported that pt had had some memory deficit and altered mentation over the month prior to this admission. Prior she was stable mentally. Review of Systems ROS pt limited d/t pt mental status. completed to best of my ability from chart , family, RN Constitutional: Reports fatigue Eyes: Denies blind spots Ears, Nose, Mouth, and Throat: Denies abnormal hearing Cardiovascular: Reports shortness of breath, Reports shortness of breath when lying down Respiratory: Reports chest congestion, Reports cough Gastrointestinal: Reports abdominal pain Musculoskeletal: Reports joint pain PMFSH - History History Provided By: Patient (pt able to provide limited hx), Family Member ( reviewed and confirmed history again at 9 am) - Medical History Medical History: Medical History (Last Reviewed 11/13/17 @ 08:16 by Sherine Roberts, PIPE CLEANER) Carpal tunnel syndrome on both sides Chronic neck pain H/O: hysterectomy High cholesterol Hypertension Hyperthyroidism Osteoarthritis Post hysterectomy menopause Renal disease Schizophrenia - Surgical History Surgical History: Surgical History (Last Reviewed 11/09/17 @ 08:36 by Balwinder Adams) History of neck surgery History of total knee replacement Previous section - Family History Family History: Family History (Last Updated 11/12/17 @ 14:50 by BHARAT Galindo) Other Patient denies significant medical history - Tobacco History Second Hand Smoke Exposure: Yes Smoking Status: Never smoker - Alcohol History How Often Do You Have a Drink Containing Alcohol: Never - Substance Use History Substance History: No History of Abuse - Travel History Recent Travel in the [place] Within the Last 8 Weeks: No Recent Travel Out of the Country Within the Last 8 Weeks: No - Immunization History Tetanus Immunization: Unsure Hx Influenza Vaccine This Season: Yes Medications and Allergies Active Medications: Active Medications Acetaminophen (Tylenol) 650 mg PO Q4H PRN PRN Reason: Pain 1-10 Last Admin: 10/08/17 22:12 Dose: 650 mg Hydrocodone Bitart/Acetaminophen ([place] 5/325) 1 tab PO Q4H PRN PRN Reason: pain scale 5 to 10 Last Admin: 11/10/17 08:21 Dose: 1 tab Al Hydroxide/Mg Hydroxide (Milk Of Magneriberto Liq) 30 ml PO Q12H PRN PRN Reason: Mild Constipation Albuterol (Duoneb Neb (Prn)) 1 ampul NEB Q6HR NEB PRN PRN Reason: SHORTNESS OF BREATH Last Admin: 11/12/17 01:05 Dose: 1 ampul Alteplase, Recombinant (Cathflo Activase Inj) 2 mg I-CATHETER Q2H PRN PRN Reason: catheter clot Last Admin: 10/31/17 05:28 Dose: 2 mg Aripiprazole (Abilify) 30 mg PO DAILY [facility] Last Admin: 11/10/17 08:21 Dose: 30 mg Bisacodyl (Dulcolax Supp) 10 mg RECTAL DAILY PRN PRN Reason: SEVERE CONSITIPATION Buspirone HCl (Buspar) 15 mg PO TID [facility] Last Admin: 11/10/17 13:31 Dose: Not Given Clonidine HCl (Catapres) 0.1 mg PO Q6H PRN PRN Reason: BP >180/100 Cod Liver Oil/Zinc Oxide (Desitin 40% Oint) 1 applicatio TOPICAL PRN PRN PRN Reason: RASH Dextrose (D50w Vial) 50 ml IV.PUSH UNSCH PRN PRN Reason: PER HYPOGLYCEMIA PROTOCOL Dextrose (Insta-Glucose (Adult) Gel) 31 gm PO UNSCH PRN PRN Reason: hypoglycemia Last Admin: 11/11/17 15:09 Dose: 31 gm Diltiazem HCl (Cardizem) 60 mg PO TID [facility] Last Admin: 11/10/17 13:31 Dose: Not Given Duloxetine HCl (Cymbalta) 60 mg PO DAILY [facility] Last Admin: 11/10/17 08:20 Dose: 60 mg Enalaprilat (Vasotec Inj) 1.25 mg IV.PUSH Q6H PRN PRN Reason: BP>180/110 Fluconazole (Diflucan) 100 mg PO DAILY [facility] Folic Acid (Folic Acid) 1 mg PO DAILY [facility] Last Admin: 11/10/17 08:21 Dose: 1 mg Glucagon (Glucagon Inj) 1 mg OTHER UNSCH PRN PRN Reason: for Hypoglycemia Protocol Last Admin: 11/11/17 08:33 Dose: 1 mg Haloperidol Lactate (Haldol Inj) 1 mg IV.PUSH Q6H PRN PRN Reason: AGITATION AND/OR HALLUCINATION Heparin Sodium (Porcine) (Heparin Central Flush) 0 unit IV.FLUSH DAILY [facility] Last Admin: 11/12/17 10:11 Dose: Not Given Heparin Sodium (Porcine) (Heparin Central Flush) 0 unit IV.FLUSH PRN PRN PRN Reason: Flush PICC Line Heparin Sodium (Porcine) (Heparin Central Flush) 0 unit IV.FLUSH PRN PRN PRN Reason: Flush PICC Line Last Admin: 10/08/17 06:32 Dose: 200 unit Heparin Sodium (Porcine) (Heparin Central Flush) 0 unit IV.FLUSH DAILY [facility] Last Admin: 11/12/17 10:10 Dose: 500 unit Fat Emulsion Intravenous (Intralipid 20% Inj) 250 mls @ 31.25 mls/hr IV.SIG SuTh [facility] Last Admin: 11/11/17 20:00 Dose: 31.25 mls/hr Multivitamins 10 ml/ Folic Acid 1 mg/ Amino Acids/Electrolytes/Dextrose 2, 010.2 mls @ 65 mls/hr IV.SIG Q24H [facility] Last Admin: 11/11/17 20:00 Dose: 65 mls/hr Levofloxacin/Dextrose (Levaquin 750 Mg Premix Inj) 150 mls @ 100 mls/hr IV.SIG Q24H [facility] Last Infusion: 11/12/17 01:05 Dose: Infused Metronidazole/Sodium Chloride (Flagyl 500 Mg Inj) 100 mls @ 100 mls/hr IV.SIG Q6H [facility] Last Admin: 11/12/17 10:09 Dose: 100 mls/hr Daptomycin 800 mg/ Sodium (Chloride) 100 mls @ 200 mls/hr IV.SIG Q24H [facility] Last Infusion: 11/12/17 06:05 Dose: Infused Lactobacillus Acidophilus (Lactinex) 1 tab PO BID [facility] Last Admin: 11/10/17 08:20 Dose: 1 tab Lactulose (Lactulose Liq) 30 ml PO DAILY PRN PRN Reason: SEVERE CONSITIPATION Magnesium Chloride (Mag64) 64 mg PO BID [facility] Last Admin: 11/10/17 08:22 Dose: 64 mg Metoprolol Tartrate (Lopressor) 12.5 mg PO BID [facility] Last Admin: 11/10/17 08:20 Dose: 12.5 mg Metoprolol Tartrate (Lopressor Inj) 5 mg IV.PUSH Q5M PRN PRN Reason: HR >120 Last Admin: 11/12/17 01:18 Dose: 5 mg Mirtazapine (Remeron) 15 mg PO [facility] Last Admin: 11/09/17 22:48 Dose: 15 mg Miscellaneous (Pill Splitter) 1 each OTHER UNSCH PRN PRN Reason: PILL SPIT Morphine Sulfate (Morphine Inj) 2 mg IV.PUSH Q3H PRN PRN Reason: PAIN SCALE 6 TO 10 Last Admin: 11/12/17 01:29 Dose: 2 mg Ondansetron HCl (Zofran Odt) 4 mg SL Q6H PRN PRN Reason: NAUSEA OR VOMITING Last Admin: 10/02/17 09:44 Dose: 4 mg Pantoprazole Sodium (Protonix Inj) 40 mg IV.PUSH Q24H [facility] Last Admin: 11/12/17 10:10 Dose: 40 mg Pantoprazole Sodium (Protonix) 20 mg PO DAILY [facility] Last Admin: 11/10/17 08:22 Dose: 20 mg Potassium Chloride (K-Dur) 40 meq PO BID [facility] Last Admin: 11/08/17 21:07 Dose: 40 meq Pravastatin Sodium (Pravachol) 40 mg PO DAILY [facility] Last Admin: 11/10/17 08:20 Dose: 40 mg Senna/Docusate Sodium (Kaykay-Colace) 1 tab PO BID PRN PRN Reason: CONSTIPATION Last Admin: 09/27/17 20:54 Dose: 1 tab Sennosides (Senokot) 17.2 mg PO Q12H PRN PRN Reason: Moderate Constipation Last Admin: 09/27/17 20:55 Dose: 17.2 mg Sodium Chloride (Ns Flush) 0 ml IV.FLUSH PRN PRN PRN Reason: FLUSH AFTER USING IV ACCESS Sodium Chloride (Ns Flush) 0 ml IV.FLUSH DAILY [facility] Last Admin: 11/12/17 10:10 Dose: 2 ml Sodium Chloride (Ns Flush) 0 ml IV.FLUSH PRN PRN PRN Reason: Flush After Blood Draws Sodium Chloride (Ns Flush) 0 ml IV.FLUSH DAILY [facility] Last Admin: 11/11/17 12:00 Dose: Not Given Sodium Chloride (Ns Flush) 0 ml IV.FLUSH PRN PRN PRN Reason: FLUSH AFTER USING IV ACCESS Sodium Chloride (Ns Flush) 0 ml IV.FLUSH PRN PRN PRN Reason: Flush After Blood Draws Trazodone HCl (Desyrel) 100 mg PO HS [facility] Last Admin: 11/09/17 22:46 Dose: 100 mg Vancomycin HCl (Vancomycin Po) 250 mg PO QID [facility] Last Admin: 11/10/17 13:32 Dose: Not Given Allergies Allergy/AdvReac Type Severity Reaction Status Date / Time amoxicillin Allergy Swelling Verified 09/27/17 17:54 Home Medications Medication Instructions Recorded Confirmed Type diclofenac sodium 75 mg PO BID 09/27/17 09/27/17 History omeprazole 20 mg PO DAILY 09/27/17 09/27/17 History Advance Directives Living Will: No Healthcare Surrogate: No Power of Head Cd Reactor Operator: No Physical Exam Vital Signs: Vital Signs - 24 hr 11/11/17 12:00 11/11/17 12:12 11/11/17 13:34 Temperature 97.4 F L Pulse Rate 122 H 108 H Respiratory Rate 27 H 18 Blood Pressure 110/71 Pulse Oximetry 98 99 11/11/17 14:00 11/11/17 15:00 11/11/17 16:00 Temperature Pulse Rate 121 H 122 H 127 H Respiratory Rate 24 27 H 35 H Blood Pressure Pulse Oximetry 100 100 11/11/17 16:17 11/11/17 16:34 11/11/17 17:29 Temperature Pulse Rate 127 H 125 H 124 H Respiratory Rate 36 H 31 H 34 H Blood Pressure 103/70 102/69 Pulse Oximetry 100 100 11/11/17 18:00 11/11/17 19:00 11/11/17 20:00 Temperature 101.1 F H Pulse Rate 121 H 123 H 121 H Respiratory Rate 33 H 34 H 31 H Blood Pressure 134/70 Pulse Oximetry 89 L 100 11/11/17 21:29 11/12/17 00:00 11/12/17 01:05 Temperature 101.1 F H Pulse Rate 121 H 114 H 120 H Respiratory Rate 28 H 30 H 28 H Blood Pressure 139/74 Pulse Oximetry 100 11/12/17 04:00 Temperature 100.1 F H Pulse Rate 115 H Respiratory Rate 28 H Blood Pressure 144/74 H Pulse Oximetry 100 I&O: Intake & Output 11/10/17 11/11/17 11/12/17 11/13/17 06:59 06:59 06:59 06:59 Intake Total 2460.2 / 2460.2 250 / 250 3050 / 3050 0 / 0 Output Total 2330 / 2330 3200 / 3200 850 / 850 220 / 220 Balance 130.2 / 130.2 -2950 / -2950 2200 / 2200 -220 / -220 Weight 105.7 kg 105.7 kg 108.7 kg Physical Exam: CONSTITUTIONAL/GENERAL: this is an obese pt, ill appearing TUBES/LINES/DRAINS: rectal tube with liquid stool, herrera, PIV SKIN: No jaundice, rashes, or lesions. No wounds seen anteriorly. Skin temperature appropriate. Not diaphoretic. HEAD: Atraumatic. Normocephalic. EYES: Pupils equal and round and reactive. Extraocular motions intact. No scleral icterus. No injection or drainage. Fundi not examined. ENT: Hearing grossly normal. Nose without bleeding or purulent drainage. CARDIOVASCULAR: RRR without murmurs, gallops, or rubs. No JVD. Peripheral pulses symmetric. RESPIRATORY/CHEST: Symmetric, unlabored respirations. Lung sounds diminished, no adventitious sounds appreciated. Has wet sounding cough. GASTROINTESTINAL: Abdomen obese, vertical incision extending down from umbilicus and horizantal incision under pannus approximated with stables, loose dressings. Edematous. GENITOURINARY: Without palpable bladder distension. Herrera catheter in place. MUSCULOSKELETAL: generalized edema. Left knee appears swollen with small round wound with scant white drainage NEUROLOGICAL: alert and oriented x 2. weak. no focal deficits. PSYCHIATRIC: limited insight Diagnostic Tests Laboratory: Laboratory Results - last 72 hr 11/09/17 11/10/17 11/10/17 21:10 07:29 12:02 CBC w Diff WBC 19.0 H RBC 3.20 L Hgb 9.1 L Hct 26.7 L MCV 83.4 D MCH 28.4 MCHC 34.0 RDW 16.6 Plt Count 111 L MPV 8.3 Prelim Diff (Auto) Manual diff required Neut % (Auto) Lymph % (Auto) Dundy % (Auto) Eos % (Auto) Baso % (Auto) Neut # (Auto) Lymph # (Auto) Dundy # (Auto) Eos # (Auto) Baso # (Auto) WBC Differential Manual diff final Diff Scan Seg Neuts % (Manual) 63 Band Neuts % (Manual) 18 H Lymphocytes % (Manual) 7 L Monocytes % (Manual) 12 H Eosinophils % (Manual) Basophils % (Manual) Abs Neuts (Manual) 15.4 H Differential Comment . Platelet Estimate Low L Platelet Morphology Normal Target Cells 1+ H Hematology Comments Sodium Potassium Chloride Carbon Dioxide Anion Gap BUN Creatinine Estimated GFR POC Glucose 136 H 138 H Random Glucose Calcium Total Bilirubin AST ALT Alkaline Phosphatase Total Protein Albumin 11/10/17 11/10/17 11/10/17 12:30 16:10 21:21 CBC w Diff WBC RBC Hgb Hct MCV MCH MCHC RDW Plt Count MPV Prelim Diff (Auto) Neut % (Auto) Lymph % (Auto) Dundy % (Auto) Eos % (Auto) Baso % (Auto) Neut # (Auto) Lymph # (Auto) Dundy # (Auto) Eos # (Auto) Baso # (Auto) WBC Differential Diff Scan Seg Neuts % (Manual) Band Neuts % (Manual) Lymphocytes % (Manual) Monocytes % (Manual) Eosinophils % (Manual) Basophils % (Manual) Abs Neuts (Manual) Differential Comment Platelet Estimate Platelet Morphology Target Cells Hematology Comments Sodium Potassium Chloride Carbon Dioxide Anion Gap BUN Creatinine Estimated GFR POC Glucose 82 99 69 Random Glucose Calcium Total Bilirubin AST ALT Alkaline Phosphatase Total Protein Albumin 11/10/17 11/10/17 11/11/17 21:23 22:17 06:25 CBC w Diff WBC RBC Hgb Hct MCV MCH MCHC RDW Plt Count MPV Prelim Diff (Auto) Neut % (Auto) Lymph % (Auto) Dundy % (Auto) Eos % (Auto) Baso % (Auto) Neut # (Auto) Lymph # (Auto) Dundy # (Auto) Eos # (Auto) Baso # (Auto) WBC Differential Diff Scan Seg Neuts % (Manual) Band Neuts % (Manual) Lymphocytes % (Manual) Monocytes % (Manual) Eosinophils % (Manual) Basophils % (Manual) Abs Neuts (Manual) Differential Comment Platelet Estimate Platelet Morphology Target Cells Hematology Comments Sodium 144 Potassium 4.0 D Chloride 118 H Carbon Dioxide 17.4 L Anion Gap 9 BUN 15 Creatinine 0.90 Estimated GFR 79 L POC Glucose 91 61 L Random Glucose 54 L D Calcium 8.2 L Total Bilirubin 0.3 AST 23 ALT 20 Alkaline Phosphatase 160 H Total Protein 4.7 L Albumin 0.9 L 11/11/17 11/11/17 11/11/17 08:55 10:24 10:40 CBC w Diff WBC RBC Hgb Hct MCV MCH MCHC RDW Plt Count MPV Prelim Diff (Auto) Neut % (Auto) Lymph % (Auto) Dundy % (Auto) Eos % (Auto) Baso % (Auto) Neut # (Auto) Lymph # (Auto) Dundy # (Auto) Eos # (Auto) Baso # (Auto) WBC Differential Diff Scan Seg Neuts % (Manual) Band Neuts % (Manual) Lymphocytes % (Manual) Monocytes % (Manual) Eosinophils % (Manual) Basophils % (Manual) Abs Neuts (Manual) Differential Comment Platelet Estimate Platelet Morphology Target Cells Hematology Comments Sodium Potassium Chloride Carbon Dioxide Anion Gap BUN Creatinine Estimated GFR POC Glucose 68 97 89 Random Glucose Calcium Total Bilirubin AST ALT Alkaline Phosphatase Total Protein Albumin 11/11/17 11/11/17 11/11/17 11:30 14:02 14:02 CBC w Diff WBC 11.5 H RBC 3.19 L Hgb 8.9 L Hct 26.4 L MCV 82.8 MCH 27.8 MCHC 33.6 RDW 16.4 Plt Count 84 L MPV 7.9 Prelim Diff (Auto) Slide review pending Neut % (Auto) 84.0 H Lymph % (Auto) 8.7 L Dundy % (Auto) 5.3 Eos % (Auto) 1.7 Baso % (Auto) 0.3 Neut # (Auto) 9.7 H Lymph # (Auto) 1.0 Dundy # (Auto) 0.6 Eos # (Auto) 0.2 Baso # (Auto) 0.0 WBC Differential . Diff Scan Auto diff confirmed Seg Neuts % (Manual) Band Neuts % (Manual) Lymphocytes % (Manual) Monocytes % (Manual) Eosinophils % (Manual) Basophils % (Manual) Abs Neuts (Manual) Differential Comment . Platelet Estimate Platelet Morphology Target Cells Hematology Comments Sodium 147 H Potassium 3.6 Chloride 118 H Carbon Dioxide 18.4 L Anion Gap 11 BUN 13 Creatinine 0.98 Estimated GFR 72 L POC Glucose 89 Random Glucose 46 L* Calcium 7.6 L Total Bilirubin 0.2 AST 20 ALT 19 Alkaline Phosphatase 149 H Total Protein 4.5 L Albumin 0.8 L 11/11/17 11/11/17 11/11/17 15:07 15:52 17:33 CBC w Diff WBC RBC Hgb Hct MCV MCH MCHC RDW Plt Count MPV Prelim Diff (Auto) Neut % (Auto) Lymph % (Auto) Dundy % (Auto) Eos % (Auto) Baso % (Auto) Neut # (Auto) Lymph # (Auto) Dundy # (Auto) Eos # (Auto) Baso # (Auto) WBC Differential Diff Scan Seg Neuts % (Manual) Band Neuts % (Manual) Lymphocytes % (Manual) Monocytes % (Manual) Eosinophils % (Manual) Basophils % (Manual) Abs Neuts (Manual) Differential Comment Platelet Estimate Platelet Morphology Target Cells Hematology Comments Sodium Potassium Chloride Carbon Dioxide Anion Gap BUN Creatinine Estimated GFR POC Glucose 59 L 93 76 Random Glucose Calcium Total Bilirubin AST ALT Alkaline Phosphatase Total Protein Albumin 11/11/17 11/12/17 11/12/17 19:53 05:39 05:39 CBC w Diff WBC 11.6 H RBC 2.93 L Hgb 8.3 L Hct 24.8 L MCV 84.5 MCH 28.3 MCHC 33.5 RDW 16.7 Plt Count 88 L MPV 8.3 Prelim Diff (Auto) Slide review pending Neut % (Auto) 85.4 H Lymph % (Auto) 8.4 L Dundy % (Auto) 5.0 Eos % (Auto) 0.9 Baso % (Auto) 0.3 Neut # (Auto) 9.9 H Lymph # (Auto) 1.0 Dundy # (Auto) 0.6 Eos # (Auto) 0.1 Baso # (Auto) 0.0 WBC Differential Manual diff final Diff Scan Seg Neuts % (Manual) 66 Band Neuts % (Manual) 23 H Lymphocytes % (Manual) 7 L Monocytes % (Manual) 2 Eosinophils % (Manual) 1 Basophils % (Manual) 1 Abs Neuts (Manual) 10.3 H Differential Comment . Platelet Estimate Low L Platelet Morphology Normal Target Cells 1+ H Hematology Comments Sodium 145 Potassium 3.3 L Chloride 116 H Carbon Dioxide 16.4 L Anion Gap 13 BUN 16 Creatinine 1.22 H Estimated GFR 56 L POC Glucose 73 Random Glucose 123 H Calcium 8.1 L Total Bilirubin 0.2 AST 20 ALT 20 Alkaline Phosphatase 149 H Total Protein 4.5 L Albumin 0.9 L 11/12/17 06:10 CBC w Diff WBC RBC Hgb Hct MCV MCH MCHC RDW Plt Count MPV Prelim Diff (Auto) Neut % (Auto) Lymph % (Auto) Dundy % (Auto) Eos % (Auto) Baso % (Auto) Neut # (Auto) Lymph # (Auto) Dundy # (Auto) Eos # (Auto) Baso # (Auto) WBC Differential Diff Scan Seg Neuts % (Manual) Band Neuts % (Manual) Lymphocytes % (Manual) Monocytes % (Manual) Eosinophils % (Manual) Basophils % (Manual) Abs Neuts (Manual) Differential Comment Platelet Estimate Platelet Morphology Target Cells Hematology Comments Sodium Potassium Chloride Carbon Dioxide Anion Gap BUN Creatinine Estimated GFR POC Glucose 144 H Random Glucose Calcium Total Bilirubin AST ALT Alkaline Phosphatase Total Protein Albumin Result Diagrams: 11/13/17 04:26 11/13/17 04:26 Microbiology: Microbiology 11/08/17 09:40 Aerobic Blood Culture - Preliminary Blood - Other No growth in 4 days Anaerobic Blood Culture - Preliminary No growth in 4 days 11/08/17 06:50 Aerobic Blood Culture - Preliminary Blood - Other No growth in 4 days Anaerobic Blood Culture - Preliminary No growth in 4 days Imaging: ITS Impressions Tibia/Fibula X-Ray 09/27/17 00:00 CONCLUSION: No acute left leg abnormality is identified. Abdomen/Pelvis CT 09/27/17 08:10 CONCLUSION: 1. Mild hepatic steatosis. 2. Thickening of the colon secondary to lack of distention versus colitis. 3. Left lower lobe consolidation and/or atelectasis. There does appear to be a 1.4 cm cavitary area which makes consolidation likely. Chest CTA 09/27/17 08:22 CONCLUSION: 1. No pulmonary embolus. 2. Consolidation or atelectasis at the left lower lobe. Knee CT 10/18/17 00:00 CONCLUSION: 1. Small joint effusion. 2. Nonspecific subcutaneous edema in the subcutaneous soft tissues above and below the knee. 3. No significant changes compared to the prior exam. Ankle X-Ray 10/19/17 00:00 CONCLUSION: 1. No acute fracture or dislocation. Knee X-Ray 10/19/17 00:00 CONCLUSION: 1. Total knee prosthesis in place. 2. Moderate-sized knee joint effusion. Head CT 11/10/17 00:00 CONCLUSION: 1. Interval enlargement of the ventricular system of uncertain etiology. There is no clear evidence of an obstructing process. 2. Otherwise stable evaluation without evidence of acute infarct, hemorrhage, mass or edema. . Venous Doppler Study 11/10/17 00:00 CONCLUSION: 1. No venous thrombosis is identified within either lower extremity. 2. As described above, secondary to open wounds, the left external iliac, common femoral vein, and greater saphenous veins were not adequately evaluated. Chest X-Ray 11/10/17 16:19 CONCLUSION: Left upper extremity PICC distal tip is in the left brachiocephalic vein. Head MRI 11/11/17 00:00 CONCLUSION: 1. Motion artifact is present throughout the scan. 2. Examination is diagnostic. 3. No evidence of acute infarct, hemorrhage, mass or edema. Procedures: 10/09 underwent I&D of abdominal wall and bilateral thighs, wound VAC placement 10/12 incision and drainage with debridement abdominal wall and bilateral lower thighs, wound VAC change 10/15 wound VAC change and closure of abdominal wall 11/01 I&D abdomen, bilateral thighs Patient/Family Conference Present at Family Conference: pt's and proxy, daughter Family Conference Time: 40 Family Conference Location: Consult Room Issues Discussed: * Palliative care role, purpose, approach * Additional medical, psychosocial, and spiritual history * Patients general health, functional status, and cognitive changes in the months leading up to the current hospitalization * family understanding of the current medical problems * family understanding of prognosis * Patients goals of care as best understood from conversations - notes at times pt has expressed desire to give up; that she does not like being in institutions, hospitals facilities * Current medical treatment options and benefits/burdens of those options * Likely scenarios comparing ongoing aggressive care - specifically improved nutrition, feeding tube, therapy, rehab * code status to include burdens/benefits CPR - "I would want everything done" * Questions answered to the best of my ability * Palliative care contact information provided For now goals are aggressive. "wants everything done." acknowledged that at times has expressed desire to give up, she seems more depressed when institutionalized. Receptive to continued palliative follow up. Assessment and Plan - Disease Oriented Problem List (1) Pneumonia (2) Cellulitis of knee, left (3) Prosthetic joint infection (4) Nutrition, metabolism, and development symptoms (5) Diarrhea (6) Schizophrenia (7) Hypertension (8) Fungal infection of skin of abdomen - Symptom Scale (1) Pain 0-10 Scale: Unable to quantify (2) Debility 0-10 Scale: Unable to quantify (3) Dyspnea 0-10 Scale: Unable to quantify (4) Anxiety 0-10 Scale: Unable to quantify Pertinent Non-Medical Issues: Psychosocial: Pt is , has 2 children. She is unemployed. Originally from [place], [place], [place]. Has been 34 years. Spiritual: Hindu. Used to go to [employer] but not as much in recent past. Desires pastoral care. Legal: Pt not capacitated to make medical decisions. [place] [facility] [place] medical decision making falls to her as proxy. Ethical issues impacting care:none Important Contacts: Emile Mcclain Jr [phone] Emile Mcclain III [phone] Prognosis: This is a 52-year-old morbidly obese lady with history of mental illness, rheumatoid arthritis who presented 7 with shortness of breath, diarrhea, abdominal pain, change in mental status and was found to have multiple infected wounds in her abdomen, groin, and left knee. She is recently status post left knee replacement in July of this year. She has had multiple I&D's of her abdominal wound, fell causing dehiscence of those wounds and her left knee wound , was on TPN, has been having hypoglycemia, now is in [facility]MC. Given her morbid obesity, multiple co morbidities, worsening wound infections, poor nutrition status, her prognosis is poor. Code Status: Full Code Plan: - LEGAL DECISON MAKER -patient is not capacitated to make medical decisions. Per [place] statutes medical decision making would fall to her as proxy - CODE STATUS-full code - GOALS - Goals are aggressive. "wants everything done." However, acknowledged that at times has expressed desire to give up, she seems more depressed when institutionalized. Receptive to continued palliative follow up. - SYMPTOMS - * pain - acute and chronic, multifactorial. Has hx RA, s/p knee repalcement 2017, now s/p multiple I&D procedures for mult infected wounds. Admits pain in left knee, abd, groin that is dull and aching with exacerbations but unable to further qualify or quantify. Has PRn IV morphien 2mg q3h. * debility - hx RA, morbidly obese, now with prolonged hospital stay. had increasing need for assistance at home ambulating and performing ADLs. Pain, persistent infections will be barrier to any aggressive rehab, she has already been bedbound for over a month and deconditioning. * SOB - originally presented with SOB. multifactorial. worsening left lower lobe consolidation on CXR. morbidly obese, at risk for OHS. intermittently requiring O2 via NC during stay. On my eval admits SOB at rest, on 2L o2 via NC , sat 98. + wet cough. CXR with worsenign left lower lobe consolidation. had episode poss aspiration last week, when cough started. at risk for further respiratory decline & needing intubation. risk for OHs. * agitation/anxiety - acute and chronic. hx bipolar, anxiety. Takes duloxetine , mirtazipine, buspirone at home, trazodone to sleep. has had periods of agitation. additionally has has PRn haldol here. Psych following, poss delerium. meds per psych - d/w attending Dr Vivar, d/w RN - Palliative care will continue to follow during hospital course as condition evolves, to assist patient/decision-maker with understanding of medical conditions, weighing benefits/burdens of treatment options, for clarification of goals of treatment. Additionally will assist with any symptoms of palliative concern Time Spent Total Floor Time (mins): 60 (chart review, PE) Face to Face Time (mins): 40 >50% Time in Counseling or Coordination of Care: Yes Appreciation Thank you for the opportunity to participate in the care of Maryanne June Mcclain.
[2017-11-12] MEDS ORDERED: Fluconazole 100 MG Tablet PO SCH (13:00)
--- NOTE | 2017-11-12 13:22 | P.DIET ---
Nutritional Evaluation Type of nutrition evaluation: follow-up Nutrition consult regarding: Tube Feeding, TPN/PPN Nutrition screening: [facility] [place] (10[place]31 Calorie counting. Pt with decreased intake with healing wounds) Screening comments: 11/06 [facility] [place] Subjective Subjective Comments: PEG can not be placed 2' to hx of gastric sleeve. Objective - Diagnosis Sepsis, Anemia, Neutropenia - Objective % IBW: 241 (IBW = 98#) Body Weight Used for Calculations: Upper end of IBW (49 kg) Energy Needs - Lower Range (kCal/kg): 30 Energy Needs - Upper Range (kCal/kg): 35 Lower Limit kCal/kg (kCals): 1,470 Upper Limit kCal/kg (kCals): 1,715 Lower Limit Protein Factor (Grams per Kg): 1.0 Upper Limit Protein Factor (Grams per Kg): 1.5 Lower Protein Needs (Protein): 49 Upper Protein Needs (Protein): 74 Fluid Factor (ml/kg): 35 Estimated Fluid Needs (ml): 1,715 Dietitian Reviewed in Medical Record: Current diet, Curent medications, Intake & Output, Labs, Medical history, Wound/DTI Diet Order: Heart Healthy, 1800 ADA, Ensure tid Wound Care Note: Per Wound Management Note: R and L perineal area- stage 3 Pt also has an open abdominal wound Objective Comments: -Surgical debridement 10/09, wound VAC applied. -VAC changed 10/12 removed 10/15. -Debridement, irrigation, with suturing performed on 10/16. -I&D of abdomen and bilateral thighs, placement of Amniox with wound closure on 11/01/17 Feeding - Current PO Supplement Current Supplement: Ensure Original Current Frequency of Supplement: Three times a day Current kCals Provided by Supplement: 250 (per 8 oz) Current Protein Provided by Supplement: 9 (per 8 oz) Assessment Assessment: Pt remains at high nutrition risk 2' to dx and presence of wounds. Poor po intake has been reported. Calorie counts have been completed, but not enough info was recorded for RD to assess. One meal was recorded and indicates an intake of ~480 kcals and 31 gms protien in that one meal. If this is coonsistent with usual intake, it would mean the pt is able to meet nutritional needs with po intake alone. For now, recommend the addition of daily MVI/min and Hermes supplement, a therapeutic nutritional supplement that may aid in healing. If TF is decided upon, recommend Vital 1.5 @ 50 mls/hr to provide 1800 kcals, 81 gms protein and 917 mls of free water. Pt is receiving Clinimix E 5/20 @ 65 mls/hr to provide 1320 kcals and 75 gms protein. Lipids 20% 250 mls 2x per week for an additional 500 kcals on those days. Please note that PREALB/ALBUMIN are no longer considered indicators for malnutrition. They are acte phase proteins and reflect severity of inflammation response rather than nutritional status. They do not respond to feeding interventions Recommendations: 1. Continue current diet and Ensure. 2. Please order Hermes bid and MVI/min q day 3. With functioning GI tract: TPN is not really appropriate 4. If TF is decided upon: Vital 1.5 @ 50 mls/hr goal 5. For TPN/lipids: Clinimix E 5/20 @ 65 mls/hr with 20% lipids 250 mls 2x/week Dietitian to Monitor: Lab values, Supplement acceptance, Intake & Output, Diet tolerance, Weight change, PO Intake, Wound/skin status, Medical course
--- NOTE | 2017-11-12 13:54 | P.PNCC ---
Subjective Subjective Remarks/Hospital Course: his is a 52-year-old female with a very complex medical history who was admitted back in September 2017 for postoperative wound infection from her total knee arthroplasty. Her course has been complicated by multiple necrotizing soft tissue infections. She additionally has failure to thrive and severe acute protein calorie malnutrition for which she has been on total parenteral nutrition. She intermittently becomes agitated and pulls out her IV access. Today she was on the floor when she became worsening the febrile and altered. She pulled out her own PICC line overnight, and nursing staff was unable to reobtain IV access. Because she was off TPN she became quite hypoglycemic which was refractory to non-intravenous methods of glucose administration. Urgently a new PICC line was placed by interventional radiology and she was given IV dextrose. When her glucose improved, her mental status improved as well. She is transferred to the ICU for management of worsening recurrent sepsis, worsening wound infection, and hypoglycemia. When I evaluated the patient, she was more awake, nonfocal, moving all extremities. She endorses fatigue, but denies other symptoms. She specifically denies chest pain, shortness of breath, fever, chills, nausea, vomiting, abdominal pain. She does endorse diarrhea and has a rectal tube in place. She has a recent history of active C. difficile infection. Remainder of the review systems is negative unless otherwise stated. SUBJ 11/12: Lying in bed no acute distress intermittently confused but follows commands, pleasant. WBC count stable at 11.7. On TPN hypoglycemia has resolved. Discussed with Dr. Schneider Objective Vital Signs / I&O: Vital Signs 11/11/17 14:00 11/11/17 15:00 11/11/17 16:00 Temperature Pulse Rate 121 H 122 H 127 H Respiratory Rate 24 27 H 35 H Blood Pressure Pulse Oximetry 100 100 11/11/17 16:17 11/11/17 16:34 11/11/17 17:29 Temperature Pulse Rate 127 H 125 H 124 H Respiratory Rate 36 H 31 H 34 H Blood Pressure 103/70 102/69 Pulse Oximetry 100 100 11/11/17 18:00 11/11/17 19:00 11/11/17 20:00 Temperature 101.1 F H Pulse Rate 121 H 123 H 121 H Respiratory Rate 33 H 34 H 31 H Blood Pressure 134/70 Pulse Oximetry 89 L 100 11/11/17 21:17 11/11/17 21:29 11/11/17 22:00 Temperature Pulse Rate 117 H 121 H 127 H Respiratory Rate 32 H 28 H 39 H Blood Pressure 134/70 140/91 H Pulse Oximetry 89 L 100 11/11/17 23:00 11/12/17 00:00 11/12/17 01:01 Temperature 101.1 F H Pulse Rate 117 H 114 H 118 H Respiratory Rate 32 H 30 H 34 H Blood Pressure 133/84 139/74 201/108 H Pulse Oximetry 100 100 98 11/12/17 01:05 11/12/17 01:09 11/12/17 01:23 Temperature Pulse Rate 120 H 124 H 111 H Respiratory Rate 28 H 36 H 47 H Blood Pressure 197/93 H 172/103 H Pulse Oximetry 100 100 11/12/17 01:35 11/12/17 02:00 11/12/17 03:00 Temperature Pulse Rate 113 H 115 H 115 H Respiratory Rate 26 H 24 27 H Blood Pressure 151/89 H 146/78 H 147/74 H Pulse Oximetry 100 100 100 11/12/17 04:00 11/12/17 05:00 11/12/17 05:49 Temperature 100.1 F H Pulse Rate 115 H 114 H 102 H Respiratory Rate 28 H 31 H 22 Blood Pressure 144/76 H 151/104 H 137/73 Pulse Oximetry 100 100 100 11/12/17 06:00 11/12/17 07:00 11/12/17 08:00 Temperature Pulse Rate 102 H 111 H 107 H Respiratory Rate 22 28 H 26 H Blood Pressure 125/71 138/85 137/93 H Pulse Oximetry 100 100 100 11/12/17 09:00 11/12/17 10:00 11/12/17 10:01 Temperature Pulse Rate 113 H 105 H 105 H Respiratory Rate 29 H 27 H 24 Blood Pressure 132/81 156/89 H Pulse Oximetry 99 100 100 11/12/17 11:00 11/12/17 12:00 11/12/17 12:01 Temperature Pulse Rate 105 H 102 H 101 H Respiratory Rate 26 H 23 21 Blood Pressure 132/86 130/63 Pulse Oximetry 100 100 100 Intake & Output 11/11/17 11/12/17 11/12/17 18:59 06:59 18:59 Intake Total 100 / 100 2950 / 2950 0 / 0 Output Total 300 / 300 550 / 550 220 / 220 Balance -200 / -200 2400 / 2400 -220 / -220 Weight 108.7 kg Intake: IV 100 / 100 450 / 450 Cubicin Inj 800 MG In NS Inj 100 / 100 100 ML @ 200 mls/hr IV.SIG Q24H [facility] Rx#:[id number] Levaquin 750 mg Premix Inj 150 150 / 150 ML @ 100 mls/hr IV.SIG Q24H [facility] Rx#:[id number] Flagyl 500 MG Inj 100 ML @ 100 100 / 100 200 / 200 mls/hr IV.SIG Q6H [facility] Rx#: [id number] Oral 0 / 0 0 / 0 0 / 0 Anesthesia Amount 1300 / 1300 Other 1200 / 1200 Output: Urine 200 / 200 200 / 200 220 / 220 Stool 100 / 100 100 / 100 Estimated Blood Loss 30 / 30 Urine Amount (Catheter) Indwelling Urethral Catheter / Wound Drainage 0 / 0 ZAMZAM Drain 0 / 0 Other: Other Intake Source Saline Solution # Voids 1 # Incontinent Voids 1 Date of Last Bowel Movement 11/11/17 11/12/17 # Incontinent Bowel Movements 1 100 # Emeses 1 Result Diagrams: 11/12/17 05:39 11/12/17 05:39 Other Results: GENERAL: Morbidly obese -[place] female, lying in bed HEENT: Normocephalic. Atraumatic. Pupils equal, round, reactive, conjugate. NECK: Trachea is midline. There is no JVD. CHEST: Equal chest rise. Nasal cannula oxygen. CARDIOVASCULAR: Tachycardic rate . Regular rhythm. Sinus. ABDOMEN: Morbidly obese, soft, nontender, nondistended. No guarding. In the lower abdominal area has open wound which is quite complex and has closed and stapled areas in the lower midline of the abdomen and then a transverse area in the suprapubic region which is mostly opened down to the subcutaneous fat. This area is draining purulent drainage. In addition the wound extends nearly over the right anterior hip region which also appears to be open and draining purulent drainage down into the subcutaneous fat. There are also areas down into the left anterior hip area also draining purulence. I do not see any area that is below the abdominal fascia. MUSCULOSKELETAL: Pulses 2+. Gross anasarca. NEUROLOGICAL: Alert awake. Follows commands in all 4 extremities. No focal deficits. Assessment and Plan - Assessment and Plan Plan: Assessment: 52-year-old female with an extensive recent medical history including multiple wound infections and severe acute protein calorie malnutrition who presents with recurrent severe sepsis and wound infection. In terms of her altered mental status, I think this is secondary to hypoglycemia which is certainly secondary to her lack of TPN because she pulled out her PICC line. Now that her glycemic control is improved, her mental status is back to baseline, and I do not see any concerning neuro symptoms that would suggest a stroke, seizure or any other neurologic finding. I do think that her wound looks to have ongoing active infection. She also appears quite intravascularly dry, but her anasarca suggest that she has significant protein malnutrition as well as total body hypervolemia. Concentrated albumin for resuscitation to restore her intravascular volume. Multiple organs have chronically failed. I agree with palliative care consult as despite her young age, her overall 1 year mortality rate is very high given that she has had almost no improvement at all in considerable worsening of her overall function and medical history while inpatient over the last few months. Active problems: Sepsis Sinus tachycardia Worsening deep tissue wound infection Severe hypoglycemia Metabolic encephalopathyresolving Recommendations: Concentrated albumin for IV resuscitation Continue IV antibiotics with Dapto IV for Grp D Enterococcus, Continue Levaquin Continue Flagyl IV for anaerobic coverage of abd wall wound and aspiration pneumonia. Diflucan for possible fungal component of infection. Continue Vancomycin for C. difficile. Continue TPN. If at any point TPN must be discontinued, start D10W at 40 miles an hour Resume PO diet, once adequate intake start slow TPN wean Frequent glycemic checks, D50 for hypoglycemia Frequent neurochecks Avoid long-acting sedatives Sinus tachycardia is likely compensatory mechanism and from Sirs response, Level 3 Critical care will sig off. D/W Dr. Chaz Vivar. Re consult if needed Discussed Condition With: Dr. Schneider, Dr. Vivar
--- NOTE | 2017-11-12 14:54 | P.PNFP ---
Subjective Interval history: Patient seen and examined. No acute events overnight. Patient is more alert and able to communicate with hand motions. She struggles to communicate verbally, but is able to voice answers to yes/no questioning intermittently. Patient is able to communicate her main complaint today is her increased upper airway congestion. She attempts to cough, however is very shallow with her breathing unable to produce a productive cough. Her is currently not at bedside, but did participate in palliative care interview today. <CbChaz H - 11/12/17 16:32> Results - Labs Result diagrams: 11/14/17 10:37 11/14/17 10:37 <RenettaMaddy M - 11/14/17 16:58> Abnormal lab results 11/12/17 11/12/17 11/13/17 Range/Units 16:07 23:55 04:26 RBC 2.68 L (4.00-5.30) mil/mm3 Hgb 7.8 L (11.6-15.3) gm/dL Hct 22.7 L (35.0-46.0) % Plt Count 60 L D (150-450) th/mm3 Neut % (Auto) 86.5 H (16.0-70.0) % Lymph % (Auto) 8.6 L (9.0-44.0) % Neut # (Auto) 8.4 H (1.8-7.7) th/mm3 Lymph # (Auto) 0.8 L (1.0-4.8) th/mm3 Band Neuts % (Manual) 39 H (0-6) % Lymphocytes % (Manual) 5 L (9-44) % Metamyelocytes % (Man) 2 H (0-1) % Myelocytes % (Man) 1 H (0-0) % Abs Neuts (Manual) 9.0 H (1.8-7.7) th/mm3 Nucleated RBCs/100 WBC 1 H (0-0) /100 WBC Toxic Granulation 1+ H (None) Toxic Vacuolation Present H (None) Platelet Estimate Low L (Normal) Platelet Morphology Enlarged H (Normal) ABG pH 7.30 L (7.380-7.420) ABG pCO2 33 L (38-42) mmHg ABG pO2 219 H (61-120) mmHG ABG HCO3 16 L* (22-26) mmol/L ABG O2 Content 11.3 L (12.0-20.0) Vol % ABG Base Excess -9.6 L (-2-2) mmol/L Hemoglobin 7.9 L* (12.0-16.0) G/DL Sodium (136-145) meq/L Potassium (3.5-5.1) meq/L Chloride (98-107) meq/L Carbon Dioxide (21.0-32.0) meq/L BUN (7-18) mg/dL Creatinine (0.50-1.00) mg/dL Estimated GFR (>89) mL/min POC Glucose 124 H (68-110) mg/dl Random Glucose (74-106) mg/dL Lactic Acid (0.4-2.0) mmol/L Calcium (8.5-10.1) mg/dL Phosphorus (2.5-4.9) mg/dL Magnesium (1.5-2.5) mg/dL Alkaline Phosphatase (45-117) U/L Ammonia (11-32) mcmol/L Total Protein (6.4-8.2) g/dL Albumin (3.4-5.0) g/dL Cholesterol (120-200) mg/dL HDL Cholesterol (40.0-60.0) mg/dL Lipase (73-393) U/L 11/13/17 11/13/17 11/13/17 Range/Units 04:26 04:26 04:26 RBC (4.00-5.30) mil/mm3 Hgb (11.6-15.3) gm/dL Hct (35.0-46.0) % Plt Count (150-450) th/mm3 Neut % (Auto) (16.0-70.0) % Lymph % (Auto) (9.0-44.0) % Neut # (Auto) (1.8-7.7) th/mm3 Lymph # (Auto) (1.0-4.8) th/mm3 Band Neuts % (Manual) (0-6) % Lymphocytes % (Manual) (9-44) % Metamyelocytes % (Man) (0-1) % Myelocytes % (Man) (0-0) % Abs Neuts (Manual) (1.8-7.7) th/mm3 Nucleated RBCs/100 WBC (0-0) /100 WBC Toxic Granulation (None) Toxic Vacuolation (None) Platelet Estimate (Normal) Platelet Morphology (Normal) ABG pH (7.380-7.420) ABG pCO2 (38-42) mmHg ABG pO2 (61-120) mmHG ABG HCO3 (22-26) mmol/L ABG O2 Content (12.0-20.0) Vol % ABG Base Excess (-2-2) mmol/L Hemoglobin (12.0-16.0) G/DL Sodium 146 H (136-145) meq/L Potassium 2.8 L* (3.5-5.1) meq/L Chloride 116 H (98-107) meq/L Carbon Dioxide 17.8 L (21.0-32.0) meq/L BUN 19 H (7-18) mg/dL Creatinine 1.49 H (0.50-1.00) mg/dL Estimated GFR 44 L (>89) mL/min POC Glucose (68-110) mg/dl Random Glucose 231 H D (74-106) mg/dL Lactic Acid 3.0 H (0.4-2.0) mmol/L Calcium 7.8 L (8.5-10.1) mg/dL Phosphorus 1.9 L (2.5-4.9) mg/dL Magnesium 1.4 L (1.5-2.5) mg/dL Alkaline Phosphatase 135 H (45-117) U/L Ammonia Less than 10 L (11-32) mcmol/L Total Protein 4.2 L (6.4-8.2) g/dL Albumin 0.8 L (3.4-5.0) g/dL Cholesterol Less than 50 L (120-200) mg/dL HDL Cholesterol 12.5 L (40.0-60.0) mg/dL Lipase 24 L (73-393) U/L 11/13/17 11/13/17 11/13/17 Range/Units 07:22 08:03 11:32 RBC (4.00-5.30) mil/mm3 Hgb (11.6-15.3) gm/dL Hct (35.0-46.0) % Plt Count (150-450) th/mm3 Neut % (Auto) (16.0-70.0) % Lymph % (Auto) (9.0-44.0) % Neut # (Auto) (1.8-7.7) th/mm3 Lymph # (Auto) (1.0-4.8) th/mm3 Band Neuts % (Manual) (0-6) % Lymphocytes % (Manual) (9-44) % Metamyelocytes % (Man) (0-1) % Myelocytes % (Man) (0-0) % Abs Neuts (Manual) (1.8-7.7) th/mm3 Nucleated RBCs/100 WBC (0-0) /100 WBC Toxic Granulation (None) Toxic Vacuolation (None) Platelet Estimate (Normal) Platelet Morphology (Normal) ABG pH (7.380-7.420) ABG pCO2 (38-42) mmHg ABG pO2 (61-120) mmHG ABG HCO3 (22-26) mmol/L ABG O2 Content (12.0-20.0) Vol % ABG Base Excess (-2-2) mmol/L Hemoglobin (12.0-16.0) G/DL Sodium (136-145) meq/L Potassium (3.5-5.1) meq/L Chloride (98-107) meq/L Carbon Dioxide (21.0-32.0) meq/L BUN (7-18) mg/dL Creatinine (0.50-1.00) mg/dL Estimated GFR (>89) mL/min POC Glucose 262 H 248 H 248 H (68-110) mg/dl Random Glucose (74-106) mg/dL Lactic Acid (0.4-2.0) mmol/L Calcium (8.5-10.1) mg/dL Phosphorus (2.5-4.9) mg/dL Magnesium (1.5-2.5) mg/dL Alkaline Phosphatase (45-117) U/L Ammonia (11-32) mcmol/L Total Protein (6.4-8.2) g/dL Albumin (3.4-5.0) g/dL Cholesterol (120-200) mg/dL HDL Cholesterol (40.0-60.0) mg/dL Lipase (73-393) U/L Short CBC 11/13/17 Range/Units 04:26 WBC 9.7 (4.0-11.0) th/mm3 Hgb 7.8 L (11.6-15.3) gm/dL Hct 22.7 L (35.0-46.0) % Plt Count 60 L D (150-450) th/mm3 BMP 11/13/17 04:26 Sodium 146 H Potassium 2.8 L* Chloride 116 H Carbon Dioxide 17.8 L BUN 19 H Creatinine 1.49 H Calcium 7.8 L Liver Function 11/13/17 Range/Units 04:26 Total Bilirubin 0.2 (0.2-1.0) mg/dL AST 17 (15-37) U/L ALT 21 (10-53) U/L Alkaline Phosphatase 135 H (45-117) U/L Albumin 0.8 L (3.4-5.0) g/dL <Maddy Jackson - 11/14/17 16:58> Abnormal lab results 11/11/17 11/11/17 11/11/17 Range/Units 14:02 14:02 15:07 WBC 11.5 H (4.0-11.0) th/mm3 RBC 3.19 L (4.00-5.30) mil/mm3 Hgb 8.9 L (11.6-15.3) gm/dL Hct 26.4 L (35.0-46.0) % Plt Count 84 L (150-450) th/mm3 Neut % (Auto) 84.0 H (16.0-70.0) % Lymph % (Auto) 8.7 L (9.0-44.0) % Neut # (Auto) 9.7 H (1.8-7.7) th/mm3 Band Neuts % (Manual) (0-6) % Lymphocytes % (Manual) (9-44) % Abs Neuts (Manual) (1.8-7.7) th/mm3 Platelet Estimate (Normal) Target Cells (None) Sodium 147 H (136-145) meq/L Potassium (3.5-5.1) meq/L Chloride 118 H (98-107) meq/L Carbon Dioxide 18.4 L (21.0-32.0) meq/L Creatinine (0.50-1.00) mg/dL Estimated GFR 72 L (>89) mL/min POC Glucose 59 L (68-110) mg/dl Random Glucose 46 L* (74-106) mg/dL Calcium 7.6 L (8.5-10.1) mg/dL Alkaline Phosphatase 149 H (45-117) U/L Total Protein 4.5 L (6.4-8.2) g/dL Albumin 0.8 L (3.4-5.0) g/dL 11/12/17 11/12/17 11/12/17 Range/Units 05:39 05:39 06:10 WBC 11.6 H (4.0-11.0) th/mm3 RBC 2.93 L (4.00-5.30) mil/mm3 Hgb 8.3 L (11.6-15.3) gm/dL Hct 24.8 L (35.0-46.0) % Plt Count 88 L (150-450) th/mm3 Neut % (Auto) 85.4 H (16.0-70.0) % Lymph % (Auto) 8.4 L (9.0-44.0) % Neut # (Auto) 9.9 H (1.8-7.7) th/mm3 Band Neuts % (Manual) 23 H (0-6) % Lymphocytes % (Manual) 7 L (9-44) % Abs Neuts (Manual) 10.3 H (1.8-7.7) th/mm3 Platelet Estimate Low L (Normal) Target Cells 1+ H (None) Sodium (136-145) meq/L Potassium 3.3 L (3.5-5.1) meq/L Chloride 116 H (98-107) meq/L Carbon Dioxide 16.4 L (21.0-32.0) meq/L Creatinine 1.22 H (0.50-1.00) mg/dL Estimated GFR 56 L (>89) mL/min POC Glucose 144 H (68-110) mg/dl Random Glucose 123 H (74-106) mg/dL Calcium 8.1 L (8.5-10.1) mg/dL Alkaline Phosphatase 149 H (45-117) U/L Total Protein 4.5 L (6.4-8.2) g/dL Albumin 0.9 L (3.4-5.0) g/dL 11/12/17 Range/Units 11:41 WBC (4.0-11.0) th/mm3 RBC (4.00-5.30) mil/mm3 Hgb (11.6-15.3) gm/dL Hct (35.0-46.0) % Plt Count (150-450) th/mm3 Neut % (Auto) (16.0-70.0) % Lymph % (Auto) (9.0-44.0) % Neut # (Auto) (1.8-7.7) th/mm3 Band Neuts % (Manual) (0-6) % Lymphocytes % (Manual) (9-44) % Abs Neuts (Manual) (1.8-7.7) th/mm3 Platelet Estimate (Normal) Target Cells (None) Sodium (136-145) meq/L Potassium (3.5-5.1) meq/L Chloride (98-107) meq/L Carbon Dioxide (21.0-32.0) meq/L Creatinine (0.50-1.00) mg/dL Estimated GFR (>89) mL/min POC Glucose 149 H (68-110) mg/dl Random Glucose (74-106) mg/dL Calcium (8.5-10.1) mg/dL Alkaline Phosphatase (45-117) U/L Total Protein (6.4-8.2) g/dL Albumin (3.4-5.0) g/dL Short CBC 11/11/17 11/12/17 Range/Units 14:02 05:39 WBC 11.5 H 11.6 H (4.0-11.0) th/mm3 Hgb 8.9 L 8.3 L (11.6-15.3) gm/dL Hct 26.4 L 24.8 L (35.0-46.0) % Plt Count 84 L 88 L (150-450) th/mm3 BMP 11/11/17 11/12/17 14:02 05:39 Sodium 147 H 145 Potassium 3.6 3.3 L Chloride 118 H 116 H Carbon Dioxide 18.4 L 16.4 L BUN 13 16 Creatinine 0.98 1.22 H Calcium 7.6 L 8.1 L Liver Function 11/11/17 11/12/17 Range/Units 14:02 05:39 Total Bilirubin 0.2 0.2 (0.2-1.0) mg/dL AST 20 20 (15-37) U/L ALT 19 20 (10-53) U/L Alkaline Phosphatase 149 H 149 H (45-117) U/L Albumin 0.8 L 0.9 L (3.4-5.0) g/dL <Chaz Vivar - 11/12/17 14:54> - Imaging Impressions PICC Line Insertion 11/11/17 08:51 CONCLUSION: 1. Uncomplicated central venous Power PICC line placement. 2. The PICC line can be used immediately. Chest X-Ray 11/12/17 00:00 CONCLUSION: 1. Interim intubation. Endotracheal tube tip is at the [place]. 2. Small effusion and mild consolidation developing right base. 3. Mild left base consolidation not significantly changed. 4. No change left arm PICC, tip in the superior vena cava. <Maddy Jackson M - 11/14/17 16:58> Impressions Head MRI 11/11/17 00:00 CONCLUSION: 1. Motion artifact is present throughout the scan. 2. Examination is diagnostic. 3. No evidence of acute infarct, hemorrhage, mass or edema. <Chaz Vivar - 11/12/17 14:54> Physical Exam Vital signs: Vital Signs 11/12/17 14:00 11/12/17 14:01 11/12/17 14:18 Temperature 98.1 F Pulse Rate 104 H 103 H Respiratory Rate 27 H 22 Blood Pressure 156/99 H Pulse Oximetry 99 99 98 11/12/17 15:01 11/12/17 16:00 11/12/17 16:08 Temperature Pulse Rate 105 H 106 H 108 H Respiratory Rate 27 H 25 H 26 H Blood Pressure 153/82 H 140/103 H 143/102 H Pulse Oximetry 99 100 99 11/12/17 16:13 11/12/17 17:01 11/12/17 17:55 Temperature Pulse Rate 106 H 97 H Respiratory Rate 33 H 21 18 Blood Pressure 149/72 H 126/64 Pulse Oximetry 99 100 11/12/17 18:50 11/12/17 20:00 11/12/17 20:50 Temperature 99.8 F H Pulse Rate 109 H Respiratory Rate 33 H Blood Pressure 158/95 H Pulse Oximetry 94 L 96 97 11/12/17 22:27 11/12/17 22:55 11/13/17 00:00 Temperature 99.0 F Pulse Rate 101 H 87 Respiratory Rate 24 16 16 Blood Pressure 112/63 Pulse Oximetry 100 100 11/13/17 04:00 11/13/17 04:15 11/13/17 08:00 Temperature 99.0 F 98.2 F Pulse Rate 86 86 Respiratory Rate 16 16 16 Blood Pressure 100/86 Pulse Oximetry 100 100 100 11/13/17 11:56 Temperature Pulse Rate Respiratory Rate 16 Blood Pressure Pulse Oximetry 100 Intake & Output 11/12/17 11/13/17 11/13/17 18:59 06:59 18:59 Intake Total 600 / 600 1530 / 1530 115 / 115 Output Total 670 / 670 250 / 250 250 / 250 Balance -70 / -70 1280 / 1280 -135 / -135 Weight 110.9 kg Intake: IV 200 / 200 1530 / 1530 115 / 115 MVI-12 Inj 10 ML Folvite Inj 1 1430 / 1430 MG In TPN Fluid 2 Liter 2,000 ML @ 65 mls/hr IV.SIG Q24H [facility] Rx#:[id number] KCl Inj 30 MEQ In NS Inj 100 ML 115 / 115 @ 38.333 mls/hr IV.SIG Q3H [facility] Rx#:[id number] Flagyl 500 MG Inj 100 ML @ 100 200 / 200 100 / 100 mls/hr IV.SIG Q6H [facility] Rx#: [id number] Oral 400 / 400 0 / 0 Oral Supplement 0 / 0 Output: Urine 220 / 220 Stool 0 / 0 Urine/Stool Mix 0 / 0 0 / 0 Urine Amount (Catheter) 450 / 450 250 / 250 250 / 250 Indwelling Urethral Catheter 450 / 450 250 / 250 250 / 250 Other: Date of Last Bowel Movement 11/12/17 11/12/17 11/12/17 # Bowel Movements 0 0 # Incontinent Bowel Movements 100 0 0 <Maddy Jackson - 11/14/17 16:58> Vital Signs 11/11/17 15:00 11/11/17 16:00 11/11/17 16:17 Temperature Pulse Rate 122 H 127 H 127 H Respiratory Rate 27 H 35 H 36 H Blood Pressure 103/70 Pulse Oximetry 100 100 11/11/17 16:34 11/11/17 17:29 11/11/17 18:00 Temperature Pulse Rate 125 H 124 H 121 H Respiratory Rate 31 H 34 H 33 H Blood Pressure 102/69 Pulse Oximetry 100 89 L 11/11/17 19:00 11/11/17 20:00 11/11/17 21:17 Temperature 101.1 F H Pulse Rate 123 H 121 H 117 H Respiratory Rate 34 H 31 H 32 H Blood Pressure 134/70 134/70 Pulse Oximetry 100 89 L 11/11/17 21:29 11/11/17 22:00 11/11/17 23:00 Temperature Pulse Rate 121 H 127 H 117 H Respiratory Rate 28 H 39 H 32 H Blood Pressure 140/91 H 133/84 Pulse Oximetry 100 100 11/12/17 00:00 11/12/17 01:01 11/12/17 01:05 Temperature 101.1 F H Pulse Rate 114 H 118 H 120 H Respiratory Rate 30 H 34 H 28 H Blood Pressure 139/74 201/108 H Pulse Oximetry 100 98 11/12/17 01:09 11/12/17 01:23 11/12/17 01:35 Temperature Pulse Rate 124 H 111 H 113 H Respiratory Rate 36 H 47 H 26 H Blood Pressure 197/93 H 172/103 H 151/89 H Pulse Oximetry 100 100 100 11/12/17 02:00 11/12/17 03:00 11/12/17 04:00 Temperature 100.1 F H Pulse Rate 115 H 115 H 115 H Respiratory Rate 24 27 H 28 H Blood Pressure 146/78 H 147/74 H 144/76 H Pulse Oximetry 100 100 100 11/12/17 05:00 11/12/17 05:49 11/12/17 06:00 Temperature Pulse Rate 114 H 102 H 102 H Respiratory Rate 31 H 22 22 Blood Pressure 151/104 H 137/73 125/71 Pulse Oximetry 100 100 100 11/12/17 07:00 11/12/17 08:00 11/12/17 09:00 Temperature Pulse Rate 111 H 107 H 113 H Respiratory Rate 28 H 26 H 29 H Blood Pressure 138/85 137/93 H 132/81 Pulse Oximetry 100 100 99 11/12/17 10:00 11/12/17 10:01 11/12/17 11:00 Temperature Pulse Rate 105 H 105 H 105 H Respiratory Rate 27 H 24 26 H Blood Pressure 156/89 H 132/86 Pulse Oximetry 100 100 100 11/12/17 12:00 11/12/17 12:01 11/12/17 14:18 Temperature Pulse Rate 102 H 101 H Respiratory Rate 23 21 Blood Pressure 130/63 Pulse Oximetry 100 100 98 Intake & Output 11/11/17 11/12/17 11/12/17 18:59 06:59 18:59 Intake Total 100 / 100 2950 / 2950 0 / 0 Output Total 300 / 300 550 / 550 220 / 220 Balance -200 / -200 2400 / 2400 -220 / -220 Weight 108.7 kg Intake: IV 100 / 100 450 / 450 Cubicin Inj 800 MG In NS Inj 100 / 100 100 ML @ 200 mls/hr IV.SIG Q24H [facility] Rx#:[id number] Levaquin 750 mg Premix Inj 150 150 / 150 ML @ 100 mls/hr IV.SIG Q24H [facility] Rx#:[id number] Flagyl 500 MG Inj 100 ML @ 100 100 / 100 200 / 200 mls/hr IV.SIG Q6H [facility] Rx#: [id number] Oral 0 / 0 0 / 0 0 / 0 Anesthesia Amount 1300 / 1300 Other 1200 / 1200 Output: Urine 200 / 200 200 / 200 220 / 220 Stool 100 / 100 100 / 100 Estimated Blood Loss 30 / 30 Urine Amount (Catheter) 220 / 220 Indwelling Urethral Catheter 220 / 220 Wound Drainage 0 / 0 ZAMZAM Drain 0 / 0 Other: Other Intake Source Saline Solution # Voids 1 # Incontinent Voids 1 Date of Last Bowel Movement 11/11/17 11/12/17 # Incontinent Bowel Movements 1 100 # Emeses 1 <Chaz Vivar H - 11/12/17 14:54> Narrative: ENERAL: Morbidly obese -Cypriot female lying in bed in no acute distress with bilateral upper extremities in soft restraints. SKIN: Cool and dry. No rash. PICC line inserted without surrounding erythema, warmth, or other signs of infection. ABD wounds: Closely examined abdominal wounds with staff assistance. Lower midline abdomen wound and transverse area with areas of medical stapling appear stable from earlier exams. Wounds extending into the pubic area and draining purulent material that appear acutely worsened. The wound extends over the right anterior hip which also appears to be worsened and draining purulence. Sacral area with deep sacral ulcer covered in fecal material due to rectal tube leak with purulent material. Overall wounds look worse than prior exams with increased purulence and serosanguineous drainage. Bedding overlying affected area is partly saturated. HEENT: Atraumatic, normocephalic with extraocular motions intact. No rhinorrhea.No visible lymphadenopathy or jugulovenous distension appreciated. CARDIOVASCULAR: Tachycardic rate (baseline) and regular rhythm without obvious murmurs, gallops, or rubs. RESPIRATORY: Bilateral rhonchi to anterior auscultation. Patient coughs chronically throughout interview and exam without production. Staff assisted patient with Yankauer suction. Breath sounds difficult to auscultate due to body habitus. No increased work of breathing. GASTROINTESTINAL: Abdomen diffuse, soft with soft bowel sounds likely due to body habitus. Patient nontender in the upper 2 quadrants, deferred tenderness evaluation and lower quadrants due to wounds. No masses appreciated. Rectal tube in place with liquid fecal material in reservoir, rectal tube with leaking material on to sacral area. Hopper catheter in place with urinary output in reservoir. MUSCULOSKELETAL: No cyanosis. Stable bilateral upper extremity 1+ edema. Stable bilateral lower extremity 2+. No calf tenderness. Left knee effusion stable and nontender to palpation. SCDs in place. NEURO/PSYCH: Afocal. Patient awake and alert. Patient with limited communication and unable to complete review of systems or orientation questions at this time. <Chaz Vivar 11/12/17 16:32> - Urinary Catheter Management Female External Cath placed during this visit: no <Maddy Jackson 11/13/17 13:28> no <Chaz Vivar 11/12/17 16:32> Indwelling Urethral Catheter Cath placed during this visit: no <Maddy Jackson - 11/13/17 13:28> yes, but has since been removed by the nurse <Chaz Vivar 11/12/17 16:32> Reason for continuing: Severe pressure ulcer/wound <Chaz Vivar 11/12/17 14:54> Insertion date: 10/09/17 <Chaz Vivar 11/12/17 14:54> Insertion time: 14:00 <Chaz Vivar Shira 11/12/17 14:54> Removal date: 10/05/17 <Chaz Vivar 11/12/17 14:54> Removal time: 17:30 <Chaz Vivar Shira 11/12/17 14:54> Assessment and Plan - Assessment (1) Altered mental status Code(s): R41.82 - Altered mental status, unspecified Status: Acute Plan: Patient with altered mental status overnight 11/11/17 with possible aspiration due to new dysphagia. Patient's mental status continues to decline with a GCS score of 10. Likely related to hypoglycemia as patient did not have access and was not able to receive nutrition via PICC line and is n.p.o. for failed swallow study. -CT Head: Interval enlargement of the ventricular system of uncertain etiology. No clear evidence of an obstructing process. Otherwise stable evaluation without evidence of acute infarct, hemorrhage, mass, or edema. -MRI wo contrast: Negative for acute process -Patient cleared for thin liquids and pured diet -Speech therapy consulted Neurology consulted, appreciate recommendations -No active neurological issues -Petroleum Plant Operator consulted, appreciate recommendations -Will sign off as mental status is improved Medications: -Glucagon given overnight -STAT buccal glucose given -TPN initiated -All PO medications placed on Hold -Haldol 1mg PRN for agitation/hallucinations -Lopressor 5mg IV PRN for HR >120 every 15min (2) Hypoglycemia Code(s): E16.2 - Hypoglycemia, unspecified Status: Resolved Plan: Patient presenting with altered mental status Differential remains wide, however patient also with hypoglycemia likely contributing to mental status Patient currently n.p.o. due to dysphagia Patient has lost PICC line 2 and currently does not have IV access due to poor vasculature, therefore she has been unable to receive TPN, fluids, or antibiotics at this time Stat consult to IR for PICC line placement, LEI Ellis -PICC place without complications -TPN restarted Medications: Patient given buccal glucose PRN Patient given glucagon 1 overnight -TPN initiated (3) Schizophrenia Code(s): F20.9 - Schizophrenia, unspecified Status: Chronic Plan: -Psychiatry consulted upon admission -Patient with increased agitation and disorientation on 11/09/17; during episode patient pulled PICC line and attempted to pull out rectal/Hopper; patient required 1 mg Haldol for agitation during episode -Psychiatry consulted for further evaluation Medications: -Haldol 1-2 mg IV/IM every 8 hours as needed for aggressive behavior/agitation -Continue Abilify 30 mg for psychosis -Continue buspirone 30 mg, trazodone 100 mg and Cymbalta 60 mg -Started Mirtazapine 15mg QHS to assist with mood as well as appetite stimulant -Hold anticholinergics per Psych (4) Open wound of abdominal wall Code(s): S31.109A - Unspecified open wound of abdominal wall, unspecified quadrant without penetration into peritoneal cavity, initial encounter Status : Acute Plan: -Wound Culture 09/27/17: Pseudomonas and Group B Step -Blood Cultures 10/24/17: Negative -Tissue Cultures 10/09/17: Negative -Abdominal wound culture 11/01/17: Group D Enterococcus, sensitive to Daptomycin ; Fungal species -Blood Culture 11/07/17 per TPN protocol: Negative to date -Blood Culture 11/12/17: Pending -Infectious disease consulted -Continue Dapto IV for Grp D Enterococcus pending ID will follow cultures to deescalate. -Continue Levaquin -Continue Flagyl IV for anaerobic coverage of abd wall wound and aspiration pneumonia. -Start Diflucan for possible fungal component of infection. -If any change in clinical condition consider changing regimen to Zyvox IV for MRSA and VRE coverage, Micafungin for possible fungemia(pt on TPN and Broad spectrum antibiotics) and Meropenem as patient at risk for ESBL and resistant organisms. -General surgery consulted -Surgical debridement 10/09, wound VAC applied. -VAC changed 10/12 removed 10/15. -Debridement, irrigation, with suturing performed on 10/16. -I&D of abdomen and bilateral thighs, placement of Amniox with wound closure on 11/01/17 -Dressing changes per general surgery Medications: -Daptomycin IV for suspected VRE per ID (11/03/17- ) -Cefepime IV (09/29/17-11/08/17) discontinued due to thrombocytopenia and elevated creatinine -Levaquin as below (11/10/17- ) -Flagyl as below (11/10/17- ) -Diflucan 500mg daily (11/12/17- _ (5) Aspiration into airway Code(s): T17.908A - Unspecified foreign body in respiratory tract, part unspecified causing other injury, initial encounter Status: Acute Plan: Patient with possible aspiration episode overnight -Chest x-ray 11/09/12: Interval development of left lower lobe consolidation -CXR 11/10/17: Left upper extremity PICC distal tip at the junction of the SVC and brachiocephalic vein. Bibasilar airspace opacity could represent atelectasis versus consolidation. 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 She completed rehabilitation and was discharged home August 23. Patient was on approximately 2 weeks of po Keflex 500 mg. Per Ortho, examination of left knee shows no evidence of infection. (8) Thrombocytopenia Code(s): D69.6 - Thrombocytopenia, unspecified Status: Acute Plan: Patient with decreasing platelet count -No signs of acute bruising on limited skin exam due to body habitus -Patient recently started Daptomycin and TPN feeding -Patient currently receiving heparin flushes only via PICC line -Possibly due to ABX, discontinued cefepime per ID -Continue to monitor (9) Creatinine elevation Code(s): R79.89 - Other specified abnormal findings of blood chemistry Status : Acute Plan: Patient with acute creatinine elevation with starting TPN. -Patient with continued appropriate urinary output -Electrolytes WNL -Possibly due to ABX, discontinued cefepime per ID -Continue to monitor Creatinine (10) Poor nutrition Code(s): E63.9 - Nutritional deficiency, unspecified Status: Acute Plan: -Patient with poor nutritional status during hospitalization -Severe concern of poor wound healing secondary to poor nutritional status -Machine Tester consulted for calorie count and nutritional guidance, which has been limited due to NPO status prior to surgery, however patient continues to have poor intake -Multivitamin IV added with Hermes supplementation BID -Albumin levels continued to be decreased -Patient unable to receive 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 Briefly discussed with surgery about the possibility of a JG tube versus surgical placement of PEG tube Patient to start TPN, Clinimix E 08/05 @ 65 mls/hr with 20% lipids 250 mls 2x/ week (11/07/17- ) -Plan for possible J tube once albumin is improved with TPN feedings -Consider NG tube for tube feedings if patient continues to defer eating; NG tube previously deferred as patient did have oral intake which has decreased significantly (11) Hypokalemia Code(s): E87.6 - Hypokalemia Status: Resolved Plan: -Patient with hypokalemia during hospitalization. Appears to be not tolerating ER capsules as they were found whole in her rectal tube reservoir. Medications: Hold oral medications below -Magnesium 64 mg daily -Hold Potassium Chloride 40mEq BID (Non-ER/Enteric Coated) as potassium has risen with addition of TPN -Plan to treat as necessary (12) Anemia Code(s): D64.9 - Anemia, unspecified Status: Resolved Plan: -Patient found to have asymptomatic anemia H/H of 7/20.3 with MCV of 82 on -Rectal tube and Hopper catheter without any signs of acute bleeding -Dressings without obvious signs of bleeding -Due to critical condition and severity of abdominal wounds with decreasing hemoglobin, 2 units PRBC ordered -Patient did receive Lasix between units to assist with possible fluid overload -Posttransfusion H/H 11.6/34.7 on 10/30/17 -Continue to monitor (13) C. difficile diarrhea Code(s): A04.72 - Enterocolitis due to Clostridium difficile, not specified as recurrent Status: Acute Plan: -C diff cultures positive 10/19/17 Hold oral medications below -Vancomycin PO 125 4 times daily -Continue with probiotics. -Rectal tube in place (14) Fall Code(s): W19.XXXA - Unspecified fall, initial encounter Status: Acute Plan: Patient with fall on 10/19/17. No loss of consciousness, no head injury, left knee and ankle pain. -Knee x-ray- Prosthesis in place, No abnormality appreciated -Ankle x-ray- No abnormality appreciated -Patient to continue with PT (15) Hypertension Code(s): I10 - Essential (primary) hypertension Status: Acute Plan: History of hypertension Hold oral medications below -Continue to monitor -Clonidine PRN for BP > 180/100 (16) Tachycardia Code(s): R00.0 - Tachycardia, unspecified Status: Chronic Plan: -Patient with chronic history of tachycardia -EKG 09/27/17: Sinus tachycardia with rate of [address] or interval changes. (Per medical team read) Medications: Hold oral medications below; Lopressor 5mg IV PRN for HR >120 -Continue home diltiazem and carvedilol (17) Calf tenderness Code(s): M79.669 - Pain in unspecified lower leg Status: Acute Plan: Patient with bilateral 2+ pitting edema both new pain in bilateral calves. Patient with baseline tachycardia. Patient currently not on anticoagulation due to anemia, thrombocytopenia, and creatinine elevation. -SCDs ordered -Previously deferred anticoagulation secondary to anemia requiring multiple blood transfusions -Bilateral lower extremity Doppler ultrasound: Negative for DVT, complete evaluation unable to be completed due to bilateral pelvic wounds (18) Nutrition, metabolism, and development symptoms Code(s): R63.8 - Other symptoms and signs concerning food and fluid intake Status: Acute Plan: Fluids: TPN as below, tolerating oral fluids Electrolytes: Replete as needed. Nutrition: Cardiac diet with Ensure, continue to monitor po intake, supplement with ensure. Encouraged patient that she needed to increase p.o. intake in order to heal -Machine Tester consulted for nutritional guidance -TPN Clinimix E 08/05 @ 65 mls/hr with 20% lipids 250 mls 2x/week (11/07/17- ) Vascular axis reconsulted for PICC line placement DVT prophylaxis: SCDs, Defer medical prophylaxis due to anemia Continue to work with OT/PT to improve ambulation <Chaz Vivar - 11/12/17 15:49> (1) Respiratory failure Code(s): J96.90 - Respiratory failure, unspecified, unspecified whether with hypoxia or hypercapnia Status: Acute (2) Aspiration into airway Code(s): T17.908A - Unspecified foreign body in respiratory tract, part unspecified causing other injury, initial encounter Status: Acute (3) Open wound of abdominal wall Code(s): S31.109A - Unspecified open wound of abdominal wall, unspecified quadrant without penetration into peritoneal cavity, initial encounter Status : Acute (4) Poor nutrition Code(s): E63.9 - Nutritional deficiency, unspecified Status: Acute (5) Thrombocytopenia Code(s): D69.6 - Thrombocytopenia, unspecified Status: Acute (6) Creatinine elevation Code(s): R79.89 - Other specified abnormal findings of blood chemistry Status : Acute (7) Schizophrenia Code(s): F20.9 - Schizophrenia, unspecified Status: Chronic (8) Altered mental status Code(s): R41.82 - Altered mental status, unspecified Status: Acute (9) Hypoglycemia Code(s): E16.2 - Hypoglycemia, unspecified Status: Resolved (10) Cellulitis of knee, left Code(s): L03.116 - Cellulitis of left lower limb Status: Acute (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 difficile diarrhea Code(s): A04.72 - Enterocolitis due to Clostridium difficile, not specified as recurrent Status: Acute (15) Fall Code(s): W19.XXXA - Unspecified fall, initial encounter Status: Acute (16) Hypertension Code(s): I10 - Essential (primary) hypertension Status: Acute (17) Tachycardia Code(s): R00.0 - Tachycardia, unspecified Status: Chronic (18) Nutrition, metabolism, and development symptoms Code(s): R63.8 - Other symptoms and signs concerning food and fluid intake Status: Acute <Maddy Jackson M - 11/14/17 16:58> - Assessment and Plan . <Chaz Vivar H - 11/12/17 14:54> - Attending Attestation The exam, history, and the medical decision-making described in the above note were completed with the assistance of the resident physician. I reviewed and agree with the findings presented. I attest that I had a [id number] encounter with the patient on the same day, and personally performed and documented my assessment and findings in the medical record. She is unfortunately extremely ill. She has been in this hospital for approximately 6 weeks. She has not put any effort seemingly into keeping herself healthy. She has not been trying to eat the appropriate amount and she has not been working on physical therapy and keeping herself strong. Sadly her decisions have resulted in an extremely debilitated condition. <Maddy Jackson M - 11/13/17 13:28> <CbChaz H - Last Filed: 11/12/17 15:49> (1) Altered mental status Qualifiers: Altered mental status type: unspecified Qualified Code(s): R41.82 - Altered mental status, unspecified (4) Open wound of abdominal wall Qualifiers: Encounter type: initial encounter Qualified Code(s): S31.109A - Unspecified open wound of abdominal wall, unspecified quadrant without penetration into peritoneal cavity, initial encounter (5) Aspiration into airway Qualifiers: Encounter type: initial encounter Qualified Code(s): T17.908A - Unspecified foreign body in respiratory tract, part unspecified causing other injury, initial encounter (12) Anemia Qualifiers: Anemia type: unspecified type Qualified Code(s): D64.9 - Anemia, unspecified (15) Hypertension Qualifiers: Hypertension type: essential hypertension Qualified Code(s): I10 - Essential (primary) hypertension <Maddy Jackson M - Last Filed: 11/14/17 16:58> (1) Respiratory failure Qualifiers: Chronicity: acute (2) Aspiration into airway Qualifiers: Encounter type: initial encounter Qualified Code(s): T17.908A - Unspecified foreign body in respiratory tract, part unspecified causing other injury, initial encounter (3) Open wound of abdominal wall Qualifiers: Encounter type: initial encounter Qualified Code(s): S31.109A - Unspecified open wound of abdominal wall, unspecified quadrant without penetration into peritoneal cavity, initial encounter (8) Altered mental status Qualifiers: Altered mental status type: unspecified Qualified Code(s): R41.82 - Altered mental status, unspecified (13) Anemia Qualifiers: Anemia type: unspecified type Qualified Code(s): D64.9 - Anemia, unspecified (16) Hypertension Qualifiers: Hypertension type: essential hypertension Qualified Code(s): I10 - Essential (primary) hypertension <Chaz Vivar H - Last Filed: 11/12/17 15:49> (1) Altered mental status Qualifiers: Altered mental status type: unspecified Qualified Code(s): R41.82 - Altered mental status, unspecified (4) Open wound of abdominal wall Qualifiers: Encounter type: initial encounter Qualified Code(s): S31.109A - Unspecified open wound of abdominal wall, unspecified quadrant without penetration into peritoneal cavity, initial encounter (5) Aspiration into airway Qualifiers: Encounter type: initial encounter Qualified Code(s): T17.908A - Unspecified foreign body in respiratory tract, part unspecified causing other injury, initial encounter (12) Anemia Qualifiers: Anemia type: unspecified type Qualified Code(s): D64.9 - Anemia, unspecified (15) Hypertension Qualifiers: Hypertension type: essential hypertension Qualified Code(s): I10 - Essential (primary) hypertension <Maddy Jackson M - Last Filed: 11/14/17 16:58> (1) Respiratory failure Qualifiers: Chronicity: acute (2) Aspiration into airway Qualifiers: Encounter type: initial encounter Qualified Code(s): T17.908A - Unspecified foreign body in respiratory tract, part unspecified causing other injury, initial encounter (3) Open wound of abdominal wall Qualifiers: Encounter type: initial encounter Qualified Code(s): S31.109A - Unspecified open wound of abdominal wall, unspecified quadrant without penetration into peritoneal cavity, initial encounter (8) Altered mental status Qualifiers: Altered mental status type: unspecified Qualified Code(s): R41.82 - Altered mental status, unspecified (13) Anemia Qualifiers: Anemia type: unspecified type Qualified Code(s): D64.9 - Anemia, unspecified (16) Hypertension Qualifiers: Hypertension type: essential hypertension Qualified Code(s): I10 - Essential (primary) hypertension
[2017-11-12] MEDS: dilTIAZem 60 MG Tablet PO SCH (17:33)
[2017-11-12] MEDS: Multivitamin Inj 10 ML, Folic Acid Inj 1 MG in TPN Fluid 2 Liter 2,000 ML IV.SIG SCH (21:01)
[2017-11-12] MEDS ORDERED: Etomidate Inj 40 MG/20 ML Vial IV.PUSH ONE ×2 (22:38→22:44)
[2017-11-12] MEDS: traZODone 100 MG Tablet PO SCH (22:54)
[2017-11-12] MEDS: Metoprolol Tartrate 25 MG Tablet PO SCH (22:54)
[2017-11-12] MEDS: Mirtazapine 15 MG Tablet PO SCH (22:55)
[2017-11-12] MEDS: Propofol 1000 mg/100 ml Inj 1,000 MG/100 ML BOTTLE IV.CONT PRN (23:00)
--- NOTE | 2017-11-12 23:24 | XR ---
EXAM DATE: 11/12/2017 11:19 PM EDT AGE/SEX: 52 years / Female INDICATIONS: Post intubation. CLINICAL DATA: This is the patient's subsequent encounter. Patient reports that signs and symptoms h ave been present for 4 - 6 days and indicates a pain score of Nonresponsive. MEDICAL/SURGICAL HISTORY: . Sepsis. Anemia. Neutropenia . . Cervical fusion COMPARISON: [facility], CHEST 1V SINGLE AP, 11/10/2017. . FINDINGS: Effusion and consolidation developing right base. Mild left base atelectasis not significantly change d. No pneumothorax. Heart size stable, within normal limits. Patient is now intubated. The endotracheal tube tip is at the shaka and should be pulled back a coup le centimeters. Left arm PICC unchanged, tip in the superior vena cava. CONCLUSION: 1. Interim intubation. Endotracheal tube tip is at the shaka. 2. Small effusion and mild consolidation developing right base. 3. Mild left base consolidation not significantly changed. 4. No change left arm PICC, tip in the superior vena cava. Electronically signed by: Thor Jaimes MD 11/12/2017 11:23 PM EDT
--- NOTE | 2017-11-12 23:28 | P.PCN ---
Date of procedure: 11/12/17 Pre-op diagnosis: Acute respiratory failure Post-op diagnosis: same Procedure: DATE: 11/12/2017 PROCEDURE: Orotracheal intubation INDICATION: Acute hypoxic respiratory failure/airway protection DETAILS OF PROCEDURE The patient was placed in optimal position and preoxygenated with 100% FiO2 via bag valve mask. At the start oxygen saturation was 98%. The patient was administered 20 milligrams etomidate IV and 50 milligrams rocuronium IV. I entered the oropharynx with a size 4 laryngoscope blade and obtained a grade 2 view of the airway. On single attempt a size 8.0 cuffed endotracheal tube was passed through the vocal cords. Correct tube location was confirmed with end tidal CO2 detector and by auscultating over bilateral lung solares. The endotracheal tube was secured with adhesive tape at a depth of 24 cm at the lips. The patient was connected to the ventilator. The patient tolerated the procedure well without any apparent complications. Oxygen saturations were maintained greater than 95% all times. STAT chest x-ray revealed ET tube in the right mainstem bronchus. Retracted 2 cm.
[2017-11-13 00:06] LABS: ABG Base Excess -9.6 mmol/L (-2-2); ABG PCO2 33 mmHg (38-42); ABG PO2 219 mmHG (61-120)
[2017-11-13] MEDS: Oral Hygiene Kit OROPHARYNG SCH ×3 (04:17→17:19)
[2017-11-13 04:37] LABS: Baso % (Auto) 0.2 % (0.0-2.0); Eos # (Auto) 0.1 th/mm3 (0.0-0.4); Eos % (Auto) 0.9 % (0.0-4.0); Hematocrit 22.7 % (35.0-46.0); Hemoglobin 7.8 gm/dL (11.6-15.3); Lymph # (Auto) 0.8 th/mm3 (1.0-4.8); Lymph % (Auto) 8.6 % (9.0-44.0); Mean Corpuscular HGB Conc 34.3 % (32.0-36.0); Mean Corpuscular Volume 84.7 fL (80.0-100.0); Mean Platelet Volume 7.4 fL (7.0-11.0); Mono # (Auto) 0.4 th/mm3 (0.0-0.9); Mono % (Auto) 3.8 % (0.0-8.0); Neut # (Auto) 8.4 th/mm3 (1.8-7.7); Neut % (Auto) 86.5 % (16.0-70.0); Platelet Count 60 th/mm3 (150-450); Red Blood Count 2.68 mil/mm3 (4.00-5.30); Red Cell Distribution Width 16.8 % (11.6-17.2); White Blood Count 9.7 th/mm3 (4.0-11.0)
[2017-11-13 05:13] LABS: Alanine Aminotransferase 21 U/L (10-53); Albumin 0.8 g/dL (3.4-5.0); Alkaline Phosphatase 135 U/L (45-117); Anion Gap 12 meq/L (5-15); Aspartate Aminotransferase 17 U/L (15-37); Blood Urea Nitrogen 19 mg/dL (7-18); Calcium 7.8 mg/dL (8.5-10.1); Carbon Dioxide 17.8 meq/L (21.0-32.0); Chloride 116 meq/L (98-107); Glomerular Filtration Rate 44 mL/min (>89); Glucose,Random 231 mg/dL (74-106); HDL Cholesterol 12.5 mg/dL (40.0-60.0); Lipase 24 U/L (73-393); Magnesium 1.4 mg/dL (1.5-2.5); Phosphorus 1.9 mg/dL (2.5-4.9); Sodium 146 meq/L (136-145); Total Protein 4.2 g/dL (6.4-8.2); Triglycerides 143 mg/dL (42-150)
[2017-11-13 05:16] LABS: LDL Cholesterol,Calculated 9 mg/dL (0-99); Potassium 2.8 meq/L (3.5-5.1)
[2017-11-13 05:45] LABS: Eosinophils 1 % (0-4); Lymphocytes 5 % (9-44); Metamyelocytes 2 % (0-1); Myelocytes 1 % (0-0); Tallied Nucleated RBC 1 (0-0); Toxic Vacuolation Present
[2017-11-13 05:46] LABS: Toxic Granulation 1+
[2017-11-13 06:07] LABS: INR 1.1 Ratio; Prothrombin Time 11.4 sec (9.8-11.6)
[2017-11-13] MEDS ORDERED: Dextrose 50% in Water 50 ML Vial IV.PUSH PRN (08:03)
--- NOTE | 2017-11-13 08:13 | P.PNFP ---
Subjective Interval history: Patient seen and examined this morning. Overnight patient developed acute respiratory distress requiring intubation after possible aspiration episode. Intubation performed without complication. Patient currently intubated and sedated. Mr. Mcclain was contacted at [phone] and updated on patient's status with all questions answered. <Chaz Vivar H - 11/13/17 09:01> Results - Labs Result diagrams: 11/14/17 10:37 11/14/17 10:37 <Maddy Jackson M - 11/14/17 17:21> Abnormal lab results 11/14/17 11/14/17 11/14/17 Range/Units 05:27 10:37 10:37 WBC 15.1 H (4.0-11.0) th/mm3 RBC 2.83 L (4.00-5.30) mil/mm3 Hgb 7.9 L (11.6-15.3) gm/dL Hct 23.6 L (35.0-46.0) % Plt Count 91 L D (150-450) th/mm3 Neut % (Auto) 80.1 H (16.0-70.0) % Neut # (Auto) 12.1 H (1.8-7.7) th/mm3 Band Neuts % (Manual) 13 H (0-6) % Abs Neuts (Manual) 12.1 H (1.8-7.7) th/mm3 Nucleated RBCs/100 WBC 3 H (0-0) /100 WBC Toxic Vacuolation Present H (None) Platelet Estimate Low L (Normal) Spherocytes Occ H (None) Target Cells 1+ H (None) Chloride 116 H (98-107) meq/L Carbon Dioxide 18.9 L (21.0-32.0) meq/L BUN 26 H (7-18) mg/dL Creatinine 1.79 H (0.50-1.00) mg/dL Estimated GFR 36 L (>89) mL/min POC Glucose 113 H (68-110) mg/dl Calcium 8.1 L (8.5-10.1) mg/dL Alkaline Phosphatase 161 H (45-117) U/L Total Protein 4.6 L (6.4-8.2) g/dL Albumin 0.9 L (3.4-5.0) g/dL 11/14/17 11/14/17 Range/Units 12:46 16:41 WBC (4.0-11.0) th/mm3 RBC (4.00-5.30) mil/mm3 Hgb (11.6-15.3) gm/dL Hct (35.0-46.0) % Plt Count (150-450) th/mm3 Neut % (Auto) (16.0-70.0) % Neut # (Auto) (1.8-7.7) th/mm3 Band Neuts % (Manual) (0-6) % Abs Neuts (Manual) (1.8-7.7) th/mm3 Nucleated RBCs/100 WBC (0-0) /100 WBC Toxic Vacuolation (None) Platelet Estimate (Normal) Spherocytes (None) Target Cells (None) Chloride (98-107) meq/L Carbon Dioxide (21.0-32.0) meq/L BUN (7-18) mg/dL Creatinine (0.50-1.00) mg/dL Estimated GFR (>89) mL/min POC Glucose 148 H 154 H (68-110) mg/dl Calcium (8.5-10.1) mg/dL Alkaline Phosphatase (45-117) U/L Total Protein (6.4-8.2) g/dL Albumin (3.4-5.0) g/dL Short CBC 11/14/17 Range/Units 10:37 WBC 15.1 H (4.0-11.0) th/mm3 Hgb 7.9 L (11.6-15.3) gm/dL Hct 23.6 L (35.0-46.0) % Plt Count 91 L D (150-450) th/mm3 BMP 11/14/17 10:37 Sodium 144 Potassium 4.5 D Chloride 116 H Carbon Dioxide 18.9 L BUN 26 H Creatinine 1.79 H Calcium 8.1 L Liver Function 11/14/17 Range/Units 10:37 Total Bilirubin 0.2 (0.2-1.0) mg/dL AST 26 (15-37) U/L ALT 22 (10-53) U/L Alkaline Phosphatase 161 H (45-117) U/L Albumin 0.9 L (3.4-5.0) g/dL <Maddy Jackson - 11/14/17 17:21> Abnormal lab results 11/12/17 11/12/17 11/12/17 Range/Units 05:39 11:41 16:07 RBC (4.00-5.30) mil/mm3 Hgb (11.6-15.3) gm/dL Hct (35.0-46.0) % Plt Count (150-450) th/mm3 Neut % (Auto) (16.0-70.0) % Lymph % (Auto) (9.0-44.0) % Neut # (Auto) (1.8-7.7) th/mm3 Lymph # (Auto) (1.0-4.8) th/mm3 Band Neuts % (Manual) 23 H (0-6) % Lymphocytes % (Manual) 7 L (9-44) % Metamyelocytes % (Man) (0-1) % Myelocytes % (Man) (0-0) % Abs Neuts (Manual) 10.3 H (1.8-7.7) th/mm3 Nucleated RBCs/100 WBC (0-0) /100 WBC Toxic Granulation (None) Toxic Vacuolation (None) Platelet Estimate Low L (Normal) Platelet Morphology (Normal) Target Cells 1+ H (None) ABG pH (7.380-7.420) ABG pCO2 (38-42) mmHg ABG pO2 (61-120) mmHG ABG HCO3 (22-26) mmol/L ABG O2 Content (12.0-20.0) Vol % ABG Base Excess (-2-2) mmol/L Hemoglobin (12.0-16.0) G/DL Sodium (136-145) meq/L Potassium (3.5-5.1) meq/L Chloride (98-107) meq/L Carbon Dioxide (21.0-32.0) meq/L BUN (7-18) mg/dL Creatinine (0.50-1.00) mg/dL Estimated GFR (>89) mL/min POC Glucose 149 H 124 H (68-110) mg/dl Random Glucose (74-106) mg/dL Lactic Acid (0.4-2.0) mmol/L Calcium (8.5-10.1) mg/dL Phosphorus (2.5-4.9) mg/dL Magnesium (1.5-2.5) mg/dL Alkaline Phosphatase (45-117) U/L Ammonia (11-32) mcmol/L Total Protein (6.4-8.2) g/dL Albumin (3.4-5.0) g/dL Cholesterol (120-200) mg/dL HDL Cholesterol (40.0-60.0) mg/dL Lipase (73-393) U/L 11/12/17 11/13/17 11/13/17 Range/Units 23:55 04:26 04:26 RBC 2.68 L (4.00-5.30) mil/mm3 Hgb 7.8 L (11.6-15.3) gm/dL Hct 22.7 L (35.0-46.0) % Plt Count 60 L D (150-450) th/mm3 Neut % (Auto) 86.5 H (16.0-70.0) % Lymph % (Auto) 8.6 L (9.0-44.0) % Neut # (Auto) 8.4 H (1.8-7.7) th/mm3 Lymph # (Auto) 0.8 L (1.0-4.8) th/mm3 Band Neuts % (Manual) 39 H (0-6) % Lymphocytes % (Manual) 5 L (9-44) % Metamyelocytes % (Man) 2 H (0-1) % Myelocytes % (Man) 1 H (0-0) % Abs Neuts (Manual) 9.0 H (1.8-7.7) th/mm3 Nucleated RBCs/100 WBC 1 H (0-0) /100 WBC Toxic Granulation 1+ H (None) Toxic Vacuolation Present H (None) Platelet Estimate Low L (Normal) Platelet Morphology Enlarged H (Normal) Target Cells (None) ABG pH 7.30 L (7.380-7.420) ABG pCO2 33 L (38-42) mmHg ABG pO2 219 H (61-120) mmHG ABG HCO3 16 L* (22-26) mmol/L ABG O2 Content 11.3 L (12.0-20.0) Vol % ABG Base Excess -9.6 L (-2-2) mmol/L Hemoglobin 7.9 L* (12.0-16.0) G/DL Sodium 146 H (136-145) meq/L Potassium 2.8 L* (3.5-5.1) meq/L Chloride 116 H (98-107) meq/L Carbon Dioxide 17.8 L (21.0-32.0) meq/L BUN 19 H (7-18) mg/dL Creatinine 1.49 H (0.50-1.00) mg/dL Estimated GFR 44 L (>89) mL/min POC Glucose (68-110) mg/dl Random Glucose 231 H D (74-106) mg/dL Lactic Acid (0.4-2.0) mmol/L Calcium 7.8 L (8.5-10.1) mg/dL Phosphorus 1.9 L (2.5-4.9) mg/dL Magnesium 1.4 L (1.5-2.5) mg/dL Alkaline Phosphatase 135 H (45-117) U/L Ammonia (11-32) mcmol/L Total Protein 4.2 L (6.4-8.2) g/dL Albumin 0.8 L (3.4-5.0) g/dL Cholesterol Less than 50 L (120-200) mg/dL HDL Cholesterol 12.5 L (40.0-60.0) mg/dL Lipase 24 L (73-393) U/L 11/13/17 11/13/17 11/13/17 Range/Units 04:26 04:26 07:22 RBC (4.00-5.30) mil/mm3 Hgb (11.6-15.3) gm/dL Hct (35.0-46.0) % Plt Count (150-450) th/mm3 Neut % (Auto) (16.0-70.0) % Lymph % (Auto) (9.0-44.0) % Neut # (Auto) (1.8-7.7) th/mm3 Lymph # (Auto) (1.0-4.8) th/mm3 Band Neuts % (Manual) (0-6) % Lymphocytes % (Manual) (9-44) % Metamyelocytes % (Man) (0-1) % Myelocytes % (Man) (0-0) % Abs Neuts (Manual) (1.8-7.7) th/mm3 Nucleated RBCs/100 WBC (0-0) /100 WBC Toxic Granulation (None) Toxic Vacuolation (None) Platelet Estimate (Normal) Platelet Morphology (Normal) Target Cells (None) ABG pH (7.380-7.420) ABG pCO2 (38-42) mmHg ABG pO2 (61-120) mmHG ABG HCO3 (22-26) mmol/L ABG O2 Content (12.0-20.0) Vol % ABG Base Excess (-2-2) mmol/L Hemoglobin (12.0-16.0) G/DL Sodium (136-145) meq/L Potassium (3.5-5.1) meq/L Chloride (98-107) meq/L Carbon Dioxide (21.0-32.0) meq/L BUN (7-18) mg/dL Creatinine (0.50-1.00) mg/dL Estimated GFR (>89) mL/min POC Glucose 262 H (68-110) mg/dl Random Glucose (74-106) mg/dL Lactic Acid 3.0 H (0.4-2.0) mmol/L Calcium (8.5-10.1) mg/dL Phosphorus (2.5-4.9) mg/dL Magnesium (1.5-2.5) mg/dL Alkaline Phosphatase (45-117) U/L Ammonia Less than 10 L (11-32) mcmol/L Total Protein (6.4-8.2) g/dL Albumin (3.4-5.0) g/dL Cholesterol (120-200) mg/dL HDL Cholesterol (40.0-60.0) mg/dL Lipase (73-393) U/L Short CBC 11/13/17 Range/Units 04:26 WBC 9.7 (4.0-11.0) th/mm3 Hgb 7.8 L (11.6-15.3) gm/dL Hct 22.7 L (35.0-46.0) % Plt Count 60 L D (150-450) th/mm3 BMP 11/13/17 04:26 Sodium 146 H Potassium 2.8 L* Chloride 116 H Carbon Dioxide 17.8 L BUN 19 H Creatinine 1.49 H Calcium 7.8 L Liver Function 11/13/17 Range/Units 04:26 Total Bilirubin 0.2 (0.2-1.0) mg/dL AST 17 (15-37) U/L ALT 21 (10-53) U/L Alkaline Phosphatase 135 H (45-117) U/L Albumin 0.8 L (3.4-5.0) g/dL <Chaz Vivar H - 11/13/17 08:13> - Imaging Impressions Chest X-Ray 11/12/17 00:00 CONCLUSION: 1. Interim intubation. Endotracheal tube tip is at the shaka. 2. Small effusion and mild consolidation developing right base. 3. Mild left base consolidation not significantly changed. 4. No change left arm PICC, tip in the superior vena cava. <Chaz Vivar H - 11/13/17 08:13> Physical Exam Vital signs: Vital Signs 11/13/17 20:00 11/13/17 20:48 11/14/17 00:00 Temperature 93.4 F L 97.2 F L Pulse Rate 108 H 97 H Respiratory Rate 27 H 24 25 H Blood Pressure 107/55 L 107/52 L Pulse Oximetry 99 100 100 11/14/17 00:30 11/14/17 00:46 11/14/17 01:01 Temperature 96.8 F L 97.0 F L 97.2 F L Pulse Rate 99 H 101 H 73 Respiratory Rate 25 H 24 34 H Blood Pressure 112/50 L 93/53 L 162/92 H Pulse Oximetry 100 100 100 11/14/17 01:16 11/14/17 01:31 11/14/17 01:36 Temperature 97.5 F L 97.5 F L Pulse Rate 100 H 98 H Respiratory Rate 20 24 18 Blood Pressure 112/70 86/48 L Pulse Oximetry 99 100 100 11/14/17 01:45 11/14/17 02:00 11/14/17 02:16 Temperature 97.7 F 97.9 F 98.1 F Pulse Rate 107 H 104 H 107 H Respiratory Rate 24 23 25 H Blood Pressure 90/52 L 83/46 L 102/51 L Pulse Oximetry 100 99 99 11/14/17 02:30 11/14/17 02:33 11/14/17 02:42 Temperature 98.1 F 98.2 F 98.2 F Pulse Rate 104 H 111 H 106 H Respiratory Rate 23 24 25 H Blood Pressure 79/47 L 82/50 L 81/48 L Pulse Oximetry 99 99 99 11/14/17 02:45 11/14/17 03:00 11/14/17 03:03 Temperature 98.2 F 98.4 F 98.4 F Pulse Rate 113 H 107 H 109 H Respiratory Rate 27 H 23 35 H Blood Pressure 88/53 L 81/45 L 92/54 L Pulse Oximetry 86 L 100 100 11/14/17 03:56 11/14/17 04:00 11/14/17 04:39 Temperature 98.8 F Pulse Rate 107 H 109 H Respiratory Rate 22 22 Blood Pressure 87/52 L Pulse Oximetry 100 99 11/14/17 05:00 11/14/17 06:00 11/14/17 07:00 Temperature 99.3 F 99.5 F 99.9 F H Pulse Rate 111 H 111 H 113 H Respiratory Rate 21 23 21 Blood Pressure 92/54 L 85/48 L 94/51 L Pulse Oximetry 99 99 99 11/14/17 08:00 11/14/17 09:00 11/14/17 09:04 Temperature 99.5 F 98.2 F Pulse Rate 116 H 124 H Respiratory Rate 22 31 H 31 H Blood Pressure 93/49 L 150/70 H Pulse Oximetry 100 100 11/14/17 10:00 11/14/17 10:01 11/14/17 11:01 Temperature 98.2 F 98.2 F 97.7 F Pulse Rate 116 H 110 H 106 H Respiratory Rate 31 H 28 H 30 H Blood Pressure 121/55 L 135/106 H Pulse Oximetry 95 11/14/17 11:10 11/14/17 12:00 11/14/17 12:01 Temperature 95.5 F L 96.6 F L 96.6 F L Pulse Rate 110 H 105 H 105 H Respiratory Rate 25 H 26 H 22 Blood Pressure 105/53 L 139/64 Pulse Oximetry 100 100 100 11/14/17 13:00 11/14/17 13:06 11/14/17 14:00 Temperature 96.3 F L 96.1 F L Pulse Rate 114 H 99 H Respiratory Rate 25 H 25 H 18 Blood Pressure 112/62 98/50 L Pulse Oximetry 100 100 100 11/14/17 15:01 11/14/17 15:04 11/14/17 15:13 Temperature 95.4 F L 95.4 F L Pulse Rate 90 111 H Respiratory Rate 17 21 18 Blood Pressure 166/106 H 155/72 H Pulse Oximetry 90 L 88 L 100 11/14/17 16:00 08/29/18 17:01 Temperature 95.0 F L 94.6 F L Pulse Rate 105 H 99 H Respiratory Rate 34 H 15 Blood Pressure 170/81 H 115/58 L Pulse Oximetry 98 100 Intake & Output 11/13/17 11/14/17 11/14/17 18:59 06:59 18:59 Intake Total 1347 / 1347 1284 / 1284 2104 / 2104 Output Total 1600 / 1600 125 / 125 780 / 780 Balance -253 / -253 1159 / 1159 1324 / 1324 Weight 113.4 kg Intake: IV 815 / 815 500 / 500 Diprivan 1000 mg/100 ml Inj 1, 100 / 100 000 mg In 100 ml @ 5 MCG/KG/MIN 3.261 mls/hr IV.CONT TITRATE PRN Rx#:[id number] Zyvox 600 mg Premix 300 ML @ 300 / 300 300 / 300 300 mls/hr IV.SIG Q12H [facility] Rx#: [id number] Magnesium Sulfate 1 gm/D5W 100 100 / 100 ml Premix 100 ML @ 100 mls/hr IV.SIG Q1H [facility] Rx#:[id number] Merrem Inj 1,000 MG In NS Inj 100 / 100 200 / 200 100 ML @ 200 mls/hr IV.SIG Q8H [facility] Rx#:[id number] Mycamine Inj 100 MG In NS Inj 100 / 100 100 ML @ 100 mls/hr IV.SIG Q24H [facility] Rx#:[id number] KCl Inj 30 MEQ In NS Inj 100 ML 115 / 115 @ 38.333 mls/hr IV.SIG Q3H [facility] Rx#:[id number] Oral 0 / 0 0 / 0 0 / 0 Oral Supplement 0 / 0 Tube Feeding 412 / 412 784 / 784 784 / 784 Tube Irrigant 120 / 120 120 / 120 Other 1200 / 1200 Output: Urine 125 / 125 125 / 125 Stool 500 / 500 500 / 500 Urine/Stool Mix 0 / 0 0 / 0 0 / 0 Estimated Blood Loss 30 / 30 Urine Amount (Catheter) 1100 / 1100 125 / 125 Indwelling Urethral Catheter 1100 / 1100 125 / 125 Wound Drainage 0 / 0 ZAMZAM Drain 0 / 0 Other: Other Intake Source Saline Solution # Voids 1 # Incontinent Voids 1 Date of Last Bowel Movement 11/13/17 11/13/17 11/13/17 # Bowel Movements 0 0 0 # Incontinent Bowel Movements 0 0 0 # Emeses 1 <Maddy Jackson M - 11/14/17 17:21> Vital Signs 11/12/17 08:00 11/12/17 09:00 11/12/17 10:00 Temperature Pulse Rate 101 H 113 H 105 H Respiratory Rate 26 H 29 H 27 H Blood Pressure 137/93 H 132/81 Pulse Oximetry 100 99 100 11/12/17 10:01 11/12/17 11:00 11/12/17 12:00 Temperature Pulse Rate 105 H 105 H 101 H Respiratory Rate 24 26 H 23 Blood Pressure 156/89 H 132/86 Pulse Oximetry 100 100 100 11/12/17 12:01 11/12/17 13:00 11/12/17 14:00 Temperature Pulse Rate 101 H 99 H 104 H Respiratory Rate 21 27 H 27 H Blood Pressure 130/63 122/75 Pulse Oximetry 100 100 99 11/12/17 14:01 11/12/17 14:18 11/12/17 15:01 Temperature 98.1 F Pulse Rate 103 H 105 H Respiratory Rate 22 27 H Blood Pressure 156/99 H 153/82 H Pulse Oximetry 99 98 99 11/12/17 16:00 11/12/17 16:08 11/12/17 16:13 Temperature Pulse Rate 106 H 108 H 106 H Respiratory Rate 25 H 26 H 33 H Blood Pressure 140/103 H 143/102 H 149/72 H Pulse Oximetry 100 99 99 11/12/17 17:01 11/12/17 17:55 11/12/17 18:50 Temperature Pulse Rate 97 H Respiratory Rate 21 18 Blood Pressure 126/64 Pulse Oximetry 100 94 L 11/12/17 20:00 11/12/17 20:50 11/12/17 22:27 Temperature 99.8 F H Pulse Rate 109 H 101 H Respiratory Rate 33 H 24 Blood Pressure 158/95 H Pulse Oximetry 96 97 11/12/17 22:55 11/13/17 00:00 11/13/17 04:00 Temperature 99.0 F 99.0 F Pulse Rate 87 86 Respiratory Rate 16 16 16 Blood Pressure 112/63 100/86 Pulse Oximetry 100 100 100 11/13/17 04:15 Temperature Pulse Rate Respiratory Rate 16 Blood Pressure Pulse Oximetry 100 Intake & Output 11/12/17 11/13/17 11/13/17 18:59 06:59 18:59 Intake Total 600 / 600 1530 / 1530 0 / 0 Output Total 670 / 670 250 / 250 250 / 250 Balance -70 / -70 1280 / 1280 -250 / -250 Weight 110.9 kg Intake: IV 200 / 200 1530 / 1530 MVI-12 Inj 10 ML Folvite Inj 1 1430 / 1430 MG In TPN Fluid 2 Liter 2,000 ML @ 65 mls/hr IV.SIG Q24H [facility] Rx#:[id number] Flagyl 500 MG Inj 100 ML @ 100 200 / 200 100 / 100 mls/hr IV.SIG Q6H [facility] Rx#: [id number] Oral 400 / 400 0 / 0 Oral Supplement 0 / 0 Output: Urine 220 / 220 Stool 0 / 0 Urine/Stool Mix 0 / 0 0 / 0 Urine Amount (Catheter) 450 / 450 250 / 250 250 / 250 Indwelling Urethral Catheter 450 / 450 250 / 250 250 / 250 Other: Date of Last Bowel Movement 11/12/17 11/12/17 # Bowel Movements 0 0 # Incontinent Bowel Movements 100 0 0 <Chaz Vivar H - 11/13/17 08:13> Narrative: GENERAL: Morbidly obese -Irish female lying in bed intubated and sedated with soft restraints intact. SKIN: Cool and dry. No rash. PICC line inserted without surrounding erythema, warmth, or other signs of infection. ABD wounds: Currently bandaged with areas of purulent drainage on the pelvic wounds. No signs of hemorrhage. All bandages damp from serosanguineous drainage. Closely examined abdominal wounds on 11/12/17 with staff assistance. Lower midline abdomen wound and transverse area with areas of medical stapling appear stable from earlier exams. Wounds extending into the pubic area and draining purulent material that appear acutely worsened. The wound extends over the right anterior hip which also appears to be worsened and draining purulence. Sacral area with deep sacral ulcer covered in fecal material due to rectal tube leak with purulent material. Overall wounds look worse than prior exams with increased purulence and serosanguineous drainage. Bedding overlying affected area is partly saturated. HEENT: Atraumatic, normocephalic. No rhinorrhea. ET tube in place. No visible lymphadenopathy or jugulovenous distension appreciated. CARDIOVASCULAR: Tachycardic rate (baseline) and regular rhythm without obvious murmurs, gallops, or rubs. RESPIRATORY: Bilateral rhonchi at the BL bases. Breath sounds difficult to auscultate due to body habitus and ventilator noise. No increased work of breathing. GASTROINTESTINAL: Abdomen diffuse, soft with soft bowel sounds likely due to body habitus. Patient nontender in the upper 2 quadrants, deferred tenderness evaluation and lower quadrants due to wounds. No masses appreciated. Rectal tube in place with no liquid fecal material in reservoir, rectal tube with leaking material on to sacral area. Hopper catheter in place with no urinary output in reservoir. MUSCULOSKELETAL: No cyanosis. Stable bilateral upper extremity 1+ edema. Stable bilateral lower extremity 2+. No calf tenderness. Left knee effusion stable and nontender to palpation. SCDs in place. NEURO/PSYCH: Patient intubated and sedated. <Chaz Vivar 11/13/17 09:01> - Urinary Catheter Management Female External Cath placed during this visit: no <Maddy Jackson 11/14/17 17:21> no <Chaz Vivar 11/13/17 11:35> Indwelling Urethral Catheter Cath placed during this visit: no <Maddy Jackson 11/14/17 17:21> yes, but has since been removed by the nurse <Chaz Vivar 11/13/17 11:35> Reason for continuing: Severe pressure ulcer/wound <Chaz Vivar 11/13/17 08:13> Insertion date: 10/09/17 <Chaz Vivar 11/13/17 08:13> Insertion time: 14:00 <Chaz Vivar 11/13/17 08:13> Removal date: 10/05/17 <Chaz Vivar 11/13/17 08:13> Removal time: 17:30 <Chaz Vivar 11/13/17 08:13> Assessment and Plan - Assessment (1) Respiratory failure Code(s): J96.90 - Respiratory failure, unspecified, unspecified whether with hypoxia or hypercapnia Status: Acute (2) Aspiration into airway Code(s): T17.908A - Unspecified foreign body in respiratory tract, part unspecified causing other injury, initial encounter Status: Acute (3) Open wound of abdominal wall Code(s): S31.109A - Unspecified open wound of abdominal wall, unspecified quadrant without penetration into peritoneal cavity, initial encounter Status : Acute (4) Poor nutrition Code(s): E63.9 - Nutritional deficiency, unspecified Status: Acute (5) Thrombocytopenia Code(s): D69.6 - Thrombocytopenia, unspecified Status: Acute (6) Creatinine elevation Code(s): R79.89 - Other specified abnormal findings of blood chemistry Status : Acute (7) Schizophrenia Code(s): F20.9 - Schizophrenia, unspecified Status: Chronic (8) Altered mental status Code(s): R41.82 - Altered mental status, unspecified Status: Acute (9) Hypoglycemia Code(s): E16.2 - Hypoglycemia, unspecified Status: Resolved (10) Cellulitis of knee, left Code(s): L03.116 - Cellulitis of left lower limb Status: Acute (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 difficile diarrhea Code(s): A04.72 - Enterocolitis due to Clostridium difficile, not specified as recurrent Status: Acute (15) Fall Code(s): W19.XXXA - Unspecified fall, initial encounter Status: Acute (16) Hypertension Code(s): I10 - Essential (primary) hypertension Status: Acute (17) Tachycardia Code(s): R00.0 - Tachycardia, unspecified Status: Chronic (18) Nutrition, metabolism, and development symptoms Code(s): R63.8 - Other symptoms and signs concerning food and fluid intake Status: Acute <Maddy Jackson Parris - 11/14/17 17:21> (1) Respiratory failure Code(s): J96.90 - Respiratory failure, unspecified, unspecified whether with hypoxia or hypercapnia Status: Acute Plan: Patient with possible aspiration episode on 11/12/17 with subsequent acute respiratory failure requiring intubation -AB.3/33/219/16 -Patient intubated and sedated -Host And Hostess consulted (2) Aspiration into airway Code(s): T17.908A - Unspecified foreign body in respiratory tract, part unspecified causing other injury, initial encounter Status: Acute Plan: Patient with possible aspiration episode overnight 11/09/17 with another episode on 11/12/17. Patient now with respiratory failure as above -Chest x-ray 11/09/12: Interval development of left lower lobe consolidation -CXR 11/10/17: Left upper extremity PICC distal tip at the junction of the SVC and brachiocephalic vein. Bibasilar airspace opacity could represent atelectasis versus consolidation. -CXR 11/12/17: Interim intubation. Endotracheal tip at the shaka. Small effusion and mild consolidation developing at the right base. -Sputum cultures: Pending -Incentive spirometry Speech therapy consulted for swallow evaluation -ID consulted Medications: -Meropenem (11/13/17- ) -Micafungin (11/13/17- ) -Linezolid (11/13/17- ) Levaquin (11/10/17- ) -Flagyl (11/10/17-11/13/17) (3) Open wound of abdominal wall Code(s): S31.109A - Unspecified open wound of abdominal wall, unspecified quadrant without penetration into peritoneal cavity, initial encounter Status : Acute Plan: Large abdominal and pelvic wounds that appear not to be healing likely secondary to poor nutritional status -Wound Culture 09/27/17: Pseudomonas and Group B Step -Blood Cultures 10/24/17: Negative -Tissue Cultures 10/09/17: Negative -Abdominal wound culture 11/01/17: Group D Enterococcus, sensitive to Daptomycin ; Fungal species -Blood Culture 11/07/17 per TPN protocol: Negative to date -Blood Culture 11/12/17: Pending -Infectious disease consulted -Start Zyvox IV for MRSA and VRE coverage, Micafungin for possible fungemia( pt on TPN and Broad spectrum antibiotics), continue Levaquin, and Meropenem as patient at risk for ESBL and resistant organisms. -General surgery consulted -Surgical debridement 10/09, wound VAC applied. -VAC changed 10/12 removed 10/15. -Debridement, irrigation, with suturing performed on 10/16. -I&D of abdomen and bilateral thighs, placement of Amniox with wound closure on 11/01/17 -Dressing changes per general surgery Medications: -Meropenem (11/13/17- ) -Micafungin (11/13/17- ) -Linezolid (11/13/17- ) Levaquin (11/10/17- ) -Daptomycin IV for suspected VRE per ID (11/03/17-11/13/17) -Cefepime IV (09/29/17-11/08/17) discontinued due to thrombocytopenia and elevated creatinine -Flagyl (11/10/17- ) -Diflucan 500mg daily (11/12/17) (4) Poor nutrition Code(s): E63.9 - Nutritional deficiency, unspecified Status: Acute Plan: -Patient with poor nutritional status during hospitalization -Severe concern of poor wound healing secondary to poor nutritional status -Health Care Consultant consulted for calorie count and nutritional guidance, which has been limited due to NPO status prior to surgery, however patient continues to have poor intake -Multivitamin IV added with Hermes supplementation BID -Albumin levels continued to be decreased -Patient unable to receive 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 Briefly discussed with surgery about the possibility of a JG tube versus surgical placement of PEG tube, deferred as patient will likely not heal from surgical procedure due to nutritional status -NG tube placed with vital 1.5 tube feeds started per dietary Patient to start TPN, Clinimix E 08/05 @ 65 mls/hr with 20% lipids 250 mls 2x/ week (11/07/17- ); plan to wean as tolerated now that patient has NG tube for feeding (5) Thrombocytopenia Code(s): D69.6 - Thrombocytopenia, unspecified Status: Acute Plan: Patient with decreasing platelet count -Etiology unknown -No signs of acute bruising on limited skin exam due to body habitus -Possibly secondary to antibiotic use -Continue to monitor (6) Creatinine elevation Code(s): R79.89 - Other specified abnormal findings of blood chemistry Status : Acute Plan: Patient with acute creatinine elevation with starting TPN. -Unknown etiology at this time -Patient with decreasing urinary output -Electrolytes WNL -Possibly due to ABX -Continue to monitor Creatinine (7) Schizophrenia Code(s): F20.9 - Schizophrenia, unspecified Status: Chronic Plan: -Psychiatry consulted upon admission -Patient with increased agitation and disorientation on 11/09/17; during episode patient pulled PICC line and attempted to pull out rectal/Hopper; patient required 1 mg Haldol for agitation during episode -Psychiatry consulted for further evaluation Medications: -Haldol 1-2 mg IV/IM every 8 hours as needed for aggressive behavior/agitation -Continue Abilify 30 mg for psychosis -Continue buspirone 30 mg, trazodone 100 mg and Cymbalta 60 mg -Started Mirtazapine 15mg QHS to assist with mood as well as appetite stimulant -Hold anticholinergics per Psych (8) Altered mental status Code(s): R41.82 - Altered mental status, unspecified Status: Acute Plan: Patient with altered mental status overnight 11/11/17 with possible aspiration due to new dysphagia. Patient's mental status continues to decline with a GCS score of 10. Likely related to hypoglycemia as patient did not have access and was not able to receive nutrition via PICC line and is n.p.o. for failed swallow study. -CT Head: Interval enlargement of the ventricular system of uncertain etiology. No clear evidence of an obstructing process. Otherwise stable evaluation without evidence of acute infarct, hemorrhage, mass, or edema. -MRI wo contrast: Negative for acute process -Patient cleared for thin liquids and pured diet -Speech therapy consulted Neurology consulted, appreciate recommendations -No active neurological issues -Host And Hostess consulted, appreciate recommendations Medications: -Glucagon given overnight -STAT buccal glucose given -TPN initiated -All PO medications placed on Hold -Haldol 1mg PRN for agitation/hallucinations -Lopressor 5mg IV PRN for HR >120 every 15min (9) Hypoglycemia Code(s): E16.2 - Hypoglycemia, unspecified Status: Resolved Plan: Patient presenting with altered mental status Differential remains wide, however patient also with hypoglycemia likely contributing to mental status Patient currently n.p.o. due to dysphagia Patient has lost PICC line 2 and currently does not have IV access due to poor vasculature, therefore she has been unable to receive TPN, fluids, or antibiotics at this time Stat consult to IR for PICC line placement, LEI Ellis -PICC place without complications -TPN restarted Medications: Patient given buccal glucose PRN Patient given glucagon 1 overnight -TPN initiated (10) Cellulitis of knee, left Code(s): L03.116 - Cellulitis of left lower limb Status: Acute Plan: -ID consulted, recommend Cefepime until 8/23/18 -Orthopedic surgery consulted, no further recommendations at this time Medications: -As above (11) Prosthetic joint infection Code(s): 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 She completed rehabilitation and was discharged home August 23. Patient was on approximately 2 weeks of po Keflex 500 mg. Per Ortho, examination of left knee shows no evidence of infection. (12) Hypokalemia Code(s): E87.6 - Hypokalemia Status: Resolved Plan: -Patient with hypokalemia during hospitalization. Appears to be not tolerating ER capsules as they were found whole in her rectal tube reservoir. Medications: -Patient placed on ICU electrolyte protocol (13) Anemia Code(s): D64.9 - Anemia, unspecified Status: Resolved Plan: -Patient found to have asymptomatic anemia H/H of 7/20.3 with MCV of 82 on -Rectal tube and Hopper catheter without any signs of acute bleeding -Dressings without obvious signs of bleeding -Due to critical condition and severity of abdominal wounds with decreasing hemoglobin, 2 units PRBC ordered -Patient did receive Lasix between units to assist with possible fluid overload -Posttransfusion H/H 11.6/34.7 on 10/30/17 -Continue to monitor (14) C. difficile diarrhea Code(s): A04.72 - Enterocolitis due to Clostridium difficile, not specified as recurrent Status: Acute Plan: -C diff cultures positive 10/19/17 Hold oral medications below -Vancomycin PO 125 4 times daily -Continue with probiotics. -Rectal tube in place (15) Fall Code(s): W19.XXXA - Unspecified fall, initial encounter Status: Acute Plan: Patient with fall on 10/19/17. No loss of consciousness, no head injury, left knee and ankle pain. -Knee x-ray- Prosthesis in place, No abnormality appreciated -Ankle x-ray- No abnormality appreciated -Patient to continue with PT (16) Tachycardia Code(s): R00.0 - Tachycardia, unspecified Status: Chronic Plan: -Patient with chronic history of tachycardia -EKG 09/27/17: Sinus tachycardia with rate of [address] or interval changes. (Per medical team read) Medications: Hold oral medications below; Lopressor 5mg IV PRN for HR >120 -Continue home diltiazem and carvedilol (17) Nutrition, metabolism, and development symptoms Code(s): R63.8 - Other symptoms and signs concerning food and fluid intake Status: Acute Plan: Fluids: TPN as below Electrolytes: Replete as needed. Nutrition: -Health Care Consultant consulted for nutritional guidance -NG tube placed and tube feeds started with vital 1.5 at 50 mils per hour (goal) -TPN Clinimix E 08/05 @ 65 mls/hr with 20% lipids 250 mls 2x/week (11/07/17- ); plan to wean as tolerated now that NG tube feeds have been initiated Vascular axis reconsulted for PICC line placement; placed in left upper extremity DVT prophylaxis: SCDs, Defer medical prophylaxis due to anemia Continue to work with OT/PT to improve ambulation (18) Hypertension Code(s): I10 - Essential (primary) hypertension Status: Acute Plan: History of hypertension Hold oral medications below -Continue to monitor -Clonidine PRN for BP > 180/100 <Chaz Vivar - 11/13/17 11:35> - Assessment and Plan . <Chaz Vivar - 11/13/17 08:13> - Attending Attestation The exam, history, and the medical decision-making described in the above note were completed with the assistance of the resident physician. I reviewed and agree with the findings presented. I attest that I had a [id number] encounter with the patient on the same day, and personally performed and documented my assessment and findings in the medical record. Unfortunately she is extremely ill. With her albumin that low she does not heal her wounds she does not have good immune system and she has the worsening infections and now respiratory failure. <Maddy Jackson - 11/14/17 17:21> <Chaz Vivar H - Last Filed: 11/13/17 11:35> (1) Respiratory failure Qualifiers: Chronicity: acute (2) Aspiration into airway Qualifiers: Encounter type: initial encounter Qualified Code(s): T17.908A - Unspecified foreign body in respiratory tract, part unspecified causing other injury, initial encounter (3) Open wound of abdominal wall Qualifiers: Encounter type: initial encounter Qualified Code(s): S31.109A - Unspecified open wound of abdominal wall, unspecified quadrant without penetration into peritoneal cavity, initial encounter (8) Altered mental status Qualifiers: Altered mental status type: unspecified Qualified Code(s): R41.82 - Altered mental status, unspecified (13) Anemia Qualifiers: Anemia type: unspecified type Qualified Code(s): D64.9 - Anemia, unspecified (18) Hypertension Qualifiers: Hypertension type: essential hypertension Qualified Code(s): I10 - Essential (primary) hypertension <Maddy Jackson M - Last Filed: 11/14/17 17:21> (1) Respiratory failure Qualifiers: Chronicity: acute (2) Aspiration into airway Qualifiers: Encounter type: initial encounter Qualified Code(s): T17.908A - Unspecified foreign body in respiratory tract, part unspecified causing other injury, initial encounter (3) Open wound of abdominal wall Qualifiers: Encounter type: initial encounter Qualified Code(s): S31.109A - Unspecified open wound of abdominal wall, unspecified quadrant without penetration into peritoneal cavity, initial encounter (8) Altered mental status Qualifiers: Altered mental status type: unspecified Qualified Code(s): R41.82 - Altered mental status, unspecified (13) Anemia Qualifiers: Anemia type: unspecified type Qualified Code(s): D64.9 - Anemia, unspecified (16) Hypertension Qualifiers: Hypertension type: essential hypertension Qualified Code(s): I10 - Essential (primary) hypertension <Chaz Vivar H - Last Filed: 11/13/17 11:35> (1) Respiratory failure Qualifiers: Chronicity: acute (2) Aspiration into airway Qualifiers: Encounter type: initial encounter Qualified Code(s): T17.908A - Unspecified foreign body in respiratory tract, part unspecified causing other injury, initial encounter (3) Open wound of abdominal wall Qualifiers: Encounter type: initial encounter Qualified Code(s): S31.109A - Unspecified open wound of abdominal wall, unspecified quadrant without penetration into peritoneal cavity, initial encounter (8) Altered mental status Qualifiers: Altered mental status type: unspecified Qualified Code(s): R41.82 - Altered mental status, unspecified (13) Anemia Qualifiers: Anemia type: unspecified type Qualified Code(s): D64.9 - Anemia, unspecified (18) Hypertension Qualifiers: Hypertension type: essential hypertension Qualified Code(s): I10 - Essential (primary) hypertension <Maddy Jackson M - Last Filed: 11/14/17 17:21> (1) Respiratory failure Qualifiers: Chronicity: acute (2) Aspiration into airway Qualifiers: Encounter type: initial encounter Qualified Code(s): T17.908A - Unspecified foreign body in respiratory tract, part unspecified causing other injury, initial encounter (3) Open wound of abdominal wall Qualifiers: Encounter type: initial encounter Qualified Code(s): S31.109A - Unspecified open wound of abdominal wall, unspecified quadrant without penetration into peritoneal cavity, initial encounter (8) Altered mental status Qualifiers: Altered mental status type: unspecified Qualified Code(s): R41.82 - Altered mental status, unspecified (13) Anemia Qualifiers: Anemia type: unspecified type Qualified Code(s): D64.9 - Anemia, unspecified (16) Hypertension Qualifiers: Hypertension type: essential hypertension Qualified Code(s): I10 - Essential (primary) hypertension
[2017-11-13] MEDS: Pantoprazole Inj 40 MG Vial IV.PUSH SCH (08:59)
[2017-11-13] MEDS: Metoprolol Tartrate 25 MG Tablet PO SCH ×2 (09:00→23:14)
[2017-11-13] MEDS: dilTIAZem 60 MG Tablet PO SCH ×3 (09:00→17:21)
[2017-11-13] MEDS: Potassium Chloride Inj 30 MEQ in Sodium Chlor 0.9% Inj 100 ML IV.SIG SCH ×2 (09:00→09:53)
[2017-11-13] MEDS: Lactobacillus Acidophilus/L. Spores Tablet PO SCH ×2 (09:54→23:13)
[2017-11-13] MEDS: Chlorhexidine 0.12% Oral Kit 15 ML UDC OROPHARYNG SCH ×2 (09:54→23:13)
[2017-11-13] MEDS: Duloxetine 60 MG DR Capsule PO SCH (09:54)
[2017-11-13] MEDS: Folic Acid 1 MG Tablet PO SCH (09:54)
[2017-11-13] MEDS: Hypromellose 0.3% Opth Gel 10 GM Bottle EACH EYE SCH ×2 (09:55→23:13)
[2017-11-13] MEDS: Heparin Central Flush 100 UNIT/ML 5 ML Vial IV.FLUSH SCH ×2 (10:47)
--- NOTE | 2017-11-13 12:17 | IR ---
EXAM DATE: 11/11/2017 1:45 PM EDT AGE/SEX: 52 years / Female INDICATIONS: Patient presents with a history of renal failure in need of peripheral intravenous line placement for access and medication administration. CLINICAL DATA: This is the patient's initial encounter. Patient reports that signs and symptoms have been present for 2 months and indicates a pain score of Nonresponsive. MEDICAL/SURGICAL HISTORY: . HTN, Chronic neck pain, Bilateral carpal tunnel syndrome, Osteoarth ritis, Hyperthyroidism, Renal disease, Schizophrenia. . Hysterectomy, Neck surgery, section , Total knee replacement. COMPARISON: No prior exams available for comparison. FLUORO TIME (min): 0.8 IMAGE SERIES: 2 ACCESS SITE: Left basilic vein MEDICATION(S): 500 units Heparin IV DEVICE(S): 5 Tajik double lumen 42.5cm Xcela Power PICC . . PROCEDURE : 1. Ultrasound guidance for venous catheterization. 2. Ultrasound guided central venous Power PICC line placement. The risks, benefits and alternatives to the procedure were explained and verbal and written consent w as obtained. The site was prepped in sterile fashion. Full sterile technique was used, including ca p, mask, sterile gloves and gown and a large sterile sheet. Hand hygiene and 2% chlorhexidine prep w as utilized per protocol for cutaneous antisepsis with appropriate dry time for site. Sterile gel an d sterile probe cover were utilized for ultrasound guidance. The skin and subcutaneous tissues were infiltrated with local anesthetic solution. Under direct ultrasound guidance, a suitable vein was accessed and a measuring guidewire was introduc ed and positioned in the central venous system. The ultrasound images depicting access guidance were saved and stored to PACS for permanent record. A Power Injectable PICC line was cut to prescribed length and introduced, positioned with tip at the cavoatrial junction level. The line was flushed and secured per protocol. Chest radiograph is to be obtained to confirm position. CONCLUSION: 1. Uncomplicated central venous Power PICC line placement. 2. The PICC line can be used immediately. Electronically signed by: Thor Ellis MD 11/13/2017 12:16 PM EDT
[2017-11-13] MEDS: Insulin NovoLOG Aspart Correctional Sugar Inj SQ SCH ×2 (13:06→17:19)
--- NOTE | 2017-11-13 13:06 | P.PNCC ---
Subjective Subjective Remarks/Hospital Course: his is a 52-year-old female with a very complex medical history who was admitted back in September 2017 for postoperative wound infection from her total knee arthroplasty. Her course has been complicated by multiple necrotizing soft tissue infections. She additionally has failure to thrive and severe acute protein calorie malnutrition for which she has been on total parenteral nutrition. She intermittently becomes agitated and pulls out her IV access. Today she was on the floor when she became worsening the febrile and altered. She pulled out her own PICC line overnight, and nursing staff was unable to reobtain IV access. Because she was off TPN she became quite hypoglycemic which was refractory to non-intravenous methods of glucose administration. Urgently a new PICC line was placed by interventional radiology and she was given IV dextrose. When her glucose improved, her mental status improved as well. She is transferred to the ICU for management of worsening recurrent sepsis, worsening wound infection, and hypoglycemia. When I evaluated the patient, she was more awake, nonfocal, moving all extremities. She endorses fatigue, but denies other symptoms. She specifically denies chest pain, shortness of breath, fever, chills, nausea, vomiting, abdominal pain. She does endorse diarrhea and has a rectal tube in place. She has a recent history of active C. difficile infection. Remainder of the review systems is negative unless otherwise stated. SUBJ 11/12: Lying in bed no acute distress intermittently confused but follows commands, pleasant. WBC count stable at 11.7. On TPN hypoglycemia has resolved. Discussed with Dr. Schneider 11/13: Intubated and placed on mechanical ventilation yesterday evening for desaturation and lack of airway protection. Creatinine has increased to 1.5 potassium is 2.8 getting replaced. On light sedation patient does follow commands. Antibiotics have been broadened to Zyvox meropenem and Levaquin and micafungin. Continue p.o. vancomycin for C Diff Objective Vital Signs / I&O: Vital Signs 11/12/17 14:00 11/12/17 14:01 11/12/17 14:18 Temperature 98.1 F Pulse Rate 104 H 103 H Respiratory Rate 27 H 22 Blood Pressure 156/99 H Pulse Oximetry 99 99 98 11/12/17 15:01 11/12/17 16:00 11/12/17 16:08 Temperature Pulse Rate 105 H 106 H 108 H Respiratory Rate 27 H 25 H 26 H Blood Pressure 153/82 H 140/103 H 143/102 H Pulse Oximetry 99 100 99 11/12/17 16:13 11/12/17 17:01 11/12/17 17:55 Temperature Pulse Rate 106 H 97 H Respiratory Rate 33 H 21 18 Blood Pressure 149/72 H 126/64 Pulse Oximetry 99 100 11/12/17 18:50 11/12/17 20:00 11/12/17 20:50 Temperature 99.8 F H Pulse Rate 109 H Respiratory Rate 33 H Blood Pressure 158/95 H Pulse Oximetry 94 L 96 97 11/12/17 22:27 11/12/17 22:55 11/13/17 00:00 Temperature 99.0 F Pulse Rate 101 H 87 Respiratory Rate 24 16 16 Blood Pressure 112/63 Pulse Oximetry 100 100 11/13/17 04:00 11/13/17 04:15 11/13/17 08:00 Temperature 99.0 F 98.2 F Pulse Rate 86 86 Respiratory Rate 16 16 16 Blood Pressure 100/86 Pulse Oximetry 100 100 100 11/13/17 11:56 Temperature Pulse Rate Respiratory Rate 16 Blood Pressure Pulse Oximetry 100 Intake & Output 11/12/17 11/13/17 11/13/17 18:59 06:59 18:59 Intake Total 600 / 600 1530 / 1530 115 / 115 Output Total 670 / 670 250 / 250 250 / 250 Balance -70 / -70 1280 / 1280 -135 / -135 Weight 110.9 kg Intake: IV 200 / 200 1530 / 1530 115 / 115 MVI-12 Inj 10 ML Folvite Inj 1 1430 / 1430 MG In TPN Fluid 2 Liter 2,000 ML @ 65 mls/hr IV.SIG Q24H [facility] Rx#:[id number] KCl Inj 30 MEQ In NS Inj 100 ML 115 / 115 @ 38.333 mls/hr IV.SIG Q3H [facility] Rx#:[id number] Flagyl 500 MG Inj 100 ML @ 100 200 / 200 100 / 100 mls/hr IV.SIG Q6H [facility] Rx#: [id number] Oral 400 / 400 0 / 0 Oral Supplement 0 / 0 Output: Urine 220 / 220 Stool 0 / 0 Urine/Stool Mix 0 / 0 0 / 0 Urine Amount (Catheter) 450 / 450 250 / 250 250 / 250 Indwelling Urethral Catheter 450 / 450 250 / 250 250 / 250 Other: Date of Last Bowel Movement 11/12/17 11/12/17 11/12/17 # Bowel Movements 0 0 # Incontinent Bowel Movements 100 0 0 Result Diagrams: 11/13/17 04:26 11/13/17 04:26 Objective Remarks: GENERAL: Morbidly obese -German female, intubated sedated HEENT: Normocephalic. Atraumatic. Pupils equal, round, reactive, conjugate. NECK: Trachea is midline. There is no JVD. CHEST: Equal chest rise. Orotracheally intubated CARDIOVASCULAR: Tachycardic rate . Regular rhythm. Sinus. ABDOMEN: Morbidly obese, soft, nontender, nondistended. No guarding. In the lower abdominal area has open wound which is quite complex and has closed and stapled areas in the lower midline of the abdomen, and then a transverse area in the suprapubic region which is mostly opened down to the subcutaneous fat. This area is draining purulent drainage. In addition the wound extends nearly over the right anterior hip region which also appears to be open and draining purulent drainage down into the subcutaneous fat. There are also areas down into the left anterior hip/thigh area also draining purulence. MUSCULOSKELETAL: Pulses 2+. Gross anasarca. NEUROLOGICAL: Intubated sedated, on lightening sedation patient does wake up in follow basic commands. Assessment and Plan - Assessment and Plan Plan: Assessment: 52-year-old female with an extensive recent medical history including multiple wound infections and severe acute protein calorie malnutrition who presents with recurrent severe sepsis and wound infection. In terms of her altered mental status, I think this is secondary to hypoglycemia which is certainly secondary to her lack of TPN because she pulled out her PICC line. Now that her glycemic control is improved, her mental status is back to baseline, and I do not see any concerning neuro symptoms that would suggest a stroke, seizure or any other neurologic finding. I do think that her wound looks to have ongoing active infection. She also appears quite intravascularly dry, but her anasarca suggest that she has significant protein malnutrition as well as total body hypervolemia. Concentrated albumin for resuscitation to restore her intravascular volume. Multiple organs have chronically failed. I agree with palliative care consult as despite her young age, her overall 1 year mortality rate is very high given that she has had almost no improvement at all in considerable worsening of her overall function and medical history while inpatient over the last few months. Active problems: Severe Sepsis Acute hypoxemic respiratory failure Metabolic encephalopathy Sinus tachycardia Worsening deep tissue wound infection Severe hypoglycemia Metabolic encephalopathyresolving Recommendations: The patient sedation with propofol use fentanyl as needed Check sputum culture pending at this time Concentrated albumin for IV resuscitation Continue IV antibiotics, change to Zyvox meropenem and Levaquin and micafungin. Continue p.o. vancomycin for C Diff Continue TPN. Start and advance tube feeds as tolerated simultaneously weaning TPN Lower abdomen and perineal wound infections general surgery and ID following Frequent glycemic checks, D50 for hypoglycemia Frequent neurochecks Avoid long-acting sedatives Sinus tachycardia is likely compensatory mechanism and from Sirs response Overall prognosis appears poor with multiple comorbidities debility, sepsis from infected wounds are now with inability to protect airway and hypoxemic respiratory failure CCT 35 MIN Code Status: Full
[2017-11-13] MEDS: Mag Sulf 1 gm/100 ml Premix 100 ML IV.SIG SCH ×4 (13:24→15:37)
--- NOTE | 2017-11-13 13:30 | P.PNID ---
Subjective Remarks: ID coverage. 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 Post op it appears she was discharged to a rehab. She was discharged from the rehab to home with her on August 23. Patient reports she lives at home with her who is on disability. Unsure of nature of disability at this time and his ability to take care of her. She was reportedly able to ambulate on her own initially followed by weakness and need for walker and then to a point where she did not want to get out of bed. It has been reported to others that she had some discharge at the left surgical site area and ortho surgeon prescribed oral keflex which reportedly lead to some improvement. She reportedly completed a week of antibiotic treatment with last day scheduled for today with some improvement in her knee pain. However her stated that she was starting to have more drainage from her knee just over the past day or so. He had pointed to several areas that had been draining pus from just above and just below the knee. He stated that a cup full of pus would drain at a time. Additionally the abdominal fold wounds appear to have been present for atleast 3 weeks now. With this background patient presented to the ED with complaints of worsening shortness of breath and mental status accompanied with symptoms of diarrhea (3 days, non-bloody) and decreased p.o. intake (5 days). She was also brought into the hospital due to infection of her knee that improved with Keflex p.o but now has returned with new additional drainage over the past few days. ID consulted for evaluation and Mment of Left knee prosthetic joint infection and neutropenia. Patient underwent incision and debridement of the inferior abdominal wall and proximal inner thighs on 10/12/2017. Since then she has had multiple surgeries done, last one done 11/01, closure of wounds Receiving IV antibiotics for left knee infection/C difficile. CT scan showed small joint effusion and subcutaneous edema of the fat at the left knee. Notes reviewed D/W RN Patient intubated late last night Febrile yesterday, hypothermic this morning BP ok On the vent No stool WBC normal now Creatinine rising Cultures reviewed Antibiotics: Meropenem Levaquin Zyvox Micafungin PO Vancomycin Lines: PICC Lines ok. Past Medical History: reviewed Allergies/Adverse Reactions: Allergies amoxicillin Allergy (Verified 09/27/17 17:54) Swelling Objective Vital Signs 11/12/17 14:00 11/12/17 14:01 11/12/17 14:18 Temperature 98.1 F Pulse Rate 104 H 103 H Respiratory Rate 27 H 22 Blood Pressure 156/99 H Pulse Oximetry 99 99 98 11/12/17 15:01 11/12/17 16:00 11/12/17 16:08 Temperature Pulse Rate 105 H 106 H 108 H Respiratory Rate 27 H 25 H 26 H Blood Pressure 153/82 H 140/103 H 143/102 H Pulse Oximetry 99 100 99 11/12/17 16:13 11/12/17 17:01 11/12/17 17:55 Temperature Pulse Rate 106 H 97 H Respiratory Rate 33 H 21 18 Blood Pressure 149/72 H 126/64 Pulse Oximetry 99 100 11/12/17 18:50 11/12/17 20:00 11/12/17 20:50 Temperature 99.8 F H Pulse Rate 109 H Respiratory Rate 33 H Blood Pressure 158/95 H Pulse Oximetry 94 L 96 97 11/12/17 22:27 11/12/17 22:55 11/13/17 00:00 Temperature 99.0 F Pulse Rate 101 H 87 Respiratory Rate 24 16 16 Blood Pressure 112/63 Pulse Oximetry 100 100 11/13/17 04:00 11/13/17 04:15 11/13/17 08:00 Temperature 99.0 F 98.2 F Pulse Rate 86 86 Respiratory Rate 16 16 16 Blood Pressure 100/86 Pulse Oximetry 100 100 100 11/13/17 11:56 Temperature Pulse Rate Respiratory Rate 16 Blood Pressure Pulse Oximetry 100 Intake & Output 11/12/17 11/13/17 11/13/17 18:59 06:59 18:59 Intake Total 600 / 600 1530 / 1530 115 / 115 Output Total 670 / 670 250 / 250 250 / 250 Balance -70 / -70 1280 / 1280 -135 / -135 Weight 110.9 kg Intake: IV 200 / 200 1530 / 1530 115 / 115 MVI-12 Inj 10 ML Folvite Inj 1 1430 / 1430 MG In TPN Fluid 2 Liter 2,000 ML @ 65 mls/hr IV.SIG Q24H [facility] Rx#:[id number] KCl Inj 30 MEQ In NS Inj 100 ML 115 / 115 @ 38.333 mls/hr IV.SIG Q3H [facility] Rx#:[id number] Flagyl 500 MG Inj 100 ML @ 100 200 / 200 100 / 100 mls/hr IV.SIG Q6H [facility] Rx#: [id number] Oral 400 / 400 0 / 0 Oral Supplement 0 / 0 Output: Urine 220 / 220 Stool 0 / 0 Urine/Stool Mix 0 / 0 0 / 0 Urine Amount (Catheter) 450 / 450 250 / 250 250 / 250 Indwelling Urethral Catheter 450 / 450 250 / 250 250 / 250 Other: Date of Last Bowel Movement 11/12/17 11/12/17 11/12/17 # Bowel Movements 0 0 # Incontinent Bowel Movements 100 0 0 11/01/17 17:45 Wound - Abdominal Fungal Smear - Final No fungal elements seen 11/01/17 17:45 Wound - Abdominal Fungal Culture - Preliminary Susy glabrata 11/01/17 17:45 Wound - Abdominal Acid Fast Bacilli Smear - Final No acid fast bacilli seen 11/01/17 17:45 Wound - Abdominal Mycobacterial Culture - Preliminary No growth in 1 week 11/12/17 12:20 Blood - Peripheral Aerobic Blood Culture - Preliminary No growth in 1 day 11/12/17 12:20 Blood - Peripheral Anaerobic Blood Culture - Preliminary No growth in 1 day 11/12/17 12:25 Blood - Peripheral Aerobic Blood Culture - Preliminary No growth in 1 day 11/12/17 12:25 Blood - Peripheral Anaerobic Blood Culture - Preliminary No growth in 1 day 11/08/17 09:40 Blood - Other Aerobic Blood Culture - Final No growth in 5 days 11/08/17 09:40 Blood - Other Anaerobic Blood Culture - Final No growth in 5 days 11/08/17 06:50 Blood - Other Aerobic Blood Culture - Final No growth in 5 days 11/08/17 06:50 Blood - Other Anaerobic Blood Culture - Final No growth in 5 days Lab - Hematology Results 11/11/17 11/12/17 11/13/17 14:02 05:39 04:26 CBC w Diff WBC 11.5 H 11.6 H 9.7 RBC 3.19 L 2.93 L 2.68 L Hgb 8.9 L 8.3 L 7.8 L Hct 26.4 L 24.8 L 22.7 L MCV 82.8 84.5 84.7 MCH 27.8 28.3 29.0 MCHC 33.6 33.5 34.3 RDW 16.4 16.7 16.8 Plt Count 84 L 88 L 60 L D MPV 7.9 8.3 7.4 Prelim Diff (Auto) Slide review pending Slide review pending Slide review pending Neut % (Auto) 84.0 H 85.4 H 86.5 H Lymph % (Auto) 8.7 L 8.4 L 8.6 L [place] % (Auto) 5.3 5.0 3.8 Eos % (Auto) 1.7 0.9 0.9 Baso % (Auto) 0.3 0.3 0.2 Neut # (Auto) 9.7 H 9.9 H 8.4 H Lymph # (Auto) 1.0 1.0 0.8 L [place] # (Auto) 0.6 0.6 0.4 Eos # (Auto) 0.2 0.1 0.1 Baso # (Auto) 0.0 0.0 0.0 WBC Differential . Manual diff final Manual diff final Diff Scan Auto diff confirmed Seg Neuts % (Manual) 66 51 Band Neuts % (Manual) 23 H 39 H Lymphocytes % (Manual) 7 L 5 L Monocytes % (Manual) 2 Eosinophils % (Manual) 1 1 Basophils % (Manual) 1 1 Metamyelocytes % (Man) 2 H Myelocytes % (Man) 1 H Abs Neuts (Manual) 10.3 H 9.0 H Nucleated RBCs/100 WBC 1 H Differential Comment . . . Toxic Granulation 1+ H Toxic Vacuolation Present H Platelet Estimate Low L Low L Platelet Morphology Normal Enlarged H Target Cells 1+ H Lab - Chemistry Results 11/11/17 11/11/17 11/11/17 14:02 15:07 15:52 Sodium 147 H Potassium 3.6 Chloride 118 H Carbon Dioxide 18.4 L Anion Gap 11 BUN 13 Creatinine 0.98 Estimated GFR 72 L POC Glucose 59 L 93 Random Glucose 46 L* Lactic Acid Calcium 7.6 L Phosphorus Magnesium Total Bilirubin 0.2 AST 20 ALT 19 Alkaline Phosphatase 149 H Ammonia Total Protein 4.5 L Albumin 0.8 L Triglycerides Cholesterol LDL Cholesterol, Calc HDL Cholesterol Cholesterol/HDL Ratio Lipase 11/11/17 11/11/17 11/12/17 17:33 19:53 05:39 Sodium 145 Potassium 3.3 L Chloride 116 H Carbon Dioxide 16.4 L Anion Gap 13 BUN 16 Creatinine 1.22 H Estimated GFR 56 L POC Glucose 76 73 Random Glucose 123 H Lactic Acid Calcium 8.1 L Phosphorus Magnesium Total Bilirubin 0.2 AST 20 ALT 20 Alkaline Phosphatase 149 H Ammonia Total Protein 4.5 L Albumin 0.9 L Triglycerides Cholesterol LDL Cholesterol, Calc HDL Cholesterol Cholesterol/HDL Ratio Lipase 11/12/17 11/12/17 11/12/17 06:10 11:41 16:07 Sodium Potassium Chloride Carbon Dioxide Anion Gap BUN Creatinine Estimated GFR POC Glucose 144 H 149 H 124 H Random Glucose Lactic Acid Calcium Phosphorus Magnesium Total Bilirubin AST ALT Alkaline Phosphatase Ammonia Total Protein Albumin Triglycerides Cholesterol LDL Cholesterol, Calc HDL Cholesterol Cholesterol/HDL Ratio Lipase 11/13/17 11/13/17 11/13/17 04:26 04:26 04:26 Sodium 146 H Potassium 2.8 L* Chloride 116 H Carbon Dioxide 17.8 L Anion Gap 12 BUN 19 H Creatinine 1.49 H Estimated GFR 44 L POC Glucose Random Glucose 231 H D Lactic Acid 3.0 H Calcium 7.8 L Phosphorus 1.9 L Magnesium 1.4 L Total Bilirubin 0.2 AST 17 ALT 21 Alkaline Phosphatase 135 H Ammonia Less than 10 L Total Protein 4.2 L Albumin 0.8 L Triglycerides 143 Cholesterol Less than 50 L LDL Cholesterol, Calc 9 HDL Cholesterol 12.5 L Cholesterol/HDL Ratio 4.00 Lipase 24 L 11/13/17 11/13/17 11/13/17 07:22 08:03 11:32 Sodium Potassium Chloride Carbon Dioxide Anion Gap BUN Creatinine Estimated GFR POC Glucose 262 H 248 H 248 H Random Glucose Lactic Acid Calcium Phosphorus Magnesium Total Bilirubin AST ALT Alkaline Phosphatase Ammonia Total Protein Albumin Triglycerides Cholesterol LDL Cholesterol, Calc HDL Cholesterol Cholesterol/HDL Ratio Lipase Imaging: ITS Impressions Tibia/Fibula X-Ray 09/27/17 00:00 CONCLUSION: No acute left leg abnormality is identified. Abdomen/Pelvis CT 09/27/17 08:10 CONCLUSION: 1. Mild hepatic steatosis. 2. Thickening of the colon secondary to lack of distention versus colitis. 3. Left lower lobe consolidation and/or atelectasis. There does appear to be a 1.4 cm cavitary area which makes consolidation likely. Chest CTA 09/27/17 08:22 CONCLUSION: 1. No pulmonary embolus. 2. Consolidation or atelectasis at the left lower lobe. Knee CT 10/18/17 00:00 CONCLUSION: 1. Small joint effusion. 2. Nonspecific subcutaneous edema in the subcutaneous soft tissues above and below the knee. 3. No significant changes compared to the prior exam. Ankle X-Ray 10/19/17 00:00 CONCLUSION: 1. No acute fracture or dislocation. Knee X-Ray 10/19/17 00:00 CONCLUSION: 1. Total knee prosthesis in place. 2. Moderate-sized knee joint effusion. Head CT 11/10/17 00:00 CONCLUSION: 1. Interval enlargement of the ventricular system of uncertain etiology. There is no clear evidence of an obstructing process. 2. Otherwise stable evaluation without evidence of acute infarct, hemorrhage, mass or edema. .Venous Doppler Study 11/10/17 00:00 CONCLUSION: 1. No venous thrombosis is identified within either lower extremity. 2. As described above, secondary to open wounds, the left external iliac, common femoral vein, and greater saphenous veins were not adequately evaluated. Head MRI 11/11/17 00:00 CONCLUSION: 1. Motion artifact is present throughout the scan. 2. Examination is diagnostic. 3. No evidence of acute infarct, hemorrhage, mass or edema. PICC Line Insertion 11/11/17 08:51 CONCLUSION: 1. Uncomplicated central venous Power PICC line placement. 2. The PICC line can be used immediately. Chest X-Ray 11/12/17 00:00 CONCLUSION: 1. Interim intubation. Endotracheal tube tip is at the [place]. 2. Small effusion and mild consolidation developing right base. 3. Mild left base consolidation not significantly changed. 4. No change left arm PICC, tip in the superior vena cava. Physical Exam: GENERAL: Awake, focusing, on the vent, NAD. Has warming blanket HEENT: Pupils reactive to light. Extraocular movements intact. No icterus. Orally intubated NECK: Supple without adenopathy. No swelling. LUNGS: Decreased breath sounds. HEART: Regular S1 and S2. ABDOMEN: Obese, soft. Nontender. Groin and abdominal area with sutures in place and dressing with some weeping of serous discharge noted.Tunneling noted in the center of the abdomen. There is a large open wound in medial upper L thigh, no purulence EXTREMITIES: swelling of the left knee. less warmth. Tiny hole a couple millimeters at the lower aspect of the knee surgical incision. SKIN: No diffuse rash. NEUROLOGIC: Awake focusing PSYCH: Unable to assess LINE: No evidence of infection Assessment and Plan - Plan IMPRESSION: Neutropenic sepsis WBC now elevated. Receive Neupogen but the white blood cell count did not plateau is continuing to rise. Possibly secondary to infection. Leucopenia, pancytopenia: ? MTX, ? Psych meds, ? Sepsis contributing. Abdominal fold cellulitis/skin breakdown. Post incision and debridement and closure of skin fold. General surgery following. She dispose any panniculectomy. Groin cellulitis, Mons pubis cellulitis/skin breakdown. Neurosurgery following. H/o fall with scraping of left knee. Left knee hardware in place. CT with fluid collection. Left knee infection - prior wound culture had Pseudomonas and group B beta strep. VRE now. Diarrhea - Positive C. difficile. Acute renal failure; prerenal vs meds Thrombocytopenia: ? meds ? Cefepime has been on it few weeks. Respiratory failure, likely aspiration PNA RECOMMENDATIONS: Follow new C/S Continue Zyvox for MRSA and VRE coverage Continue Meropenem for broader GNR coverage Continue Micafungin Continue po Vanco for C diff. Continue Levaquin Monitor progress D/W VAN
--- NOTE | 2017-11-13 14:22 | P.PNGS ---
Subjective Interval history: Now intubated; hypothermia Physical Exam Vital signs: Vital Signs 11/12/17 14:18 11/12/17 15:01 11/12/17 16:00 Temperature Pulse Rate 105 H 106 H Respiratory Rate 27 H 25 H Blood Pressure 153/82 H 140/103 H Pulse Oximetry 98 99 100 11/12/17 16:08 11/12/17 16:13 11/12/17 17:01 Temperature Pulse Rate 108 H 106 H 97 H Respiratory Rate 26 H 33 H 21 Blood Pressure 143/102 H 149/72 H 126/64 Pulse Oximetry 99 99 100 11/12/17 17:55 11/12/17 18:50 11/12/17 20:00 Temperature 99.8 F H Pulse Rate 109 H Respiratory Rate 18 33 H Blood Pressure 158/95 H Pulse Oximetry 94 L 96 11/12/17 20:50 11/12/17 22:27 11/12/17 22:55 Temperature Pulse Rate 101 H Respiratory Rate 24 16 Blood Pressure Pulse Oximetry 97 100 11/13/17 00:00 11/13/17 04:00 11/13/17 04:15 Temperature 99.0 F 99.0 F Pulse Rate 87 86 Respiratory Rate 16 16 16 Blood Pressure 112/63 100/86 Pulse Oximetry 100 100 100 11/13/17 07:45 11/13/17 08:00 11/13/17 08:15 Temperature 98.2 F Pulse Rate 70 78 78 Respiratory Rate 16 32 H 26 H Blood Pressure 130/72 143/77 H Pulse Oximetry 100 100 100 11/13/17 08:30 11/13/17 08:45 11/13/17 09:00 Temperature 87.4 F L 87.3 F L Pulse Rate 78 86 86 Respiratory Rate 21 23 20 Blood Pressure 148/86 H 143/81 H 151/85 H Pulse Oximetry 100 100 100 11/13/17 09:15 11/13/17 09:30 11/13/17 09:45 Temperature 87.1 F L 87.3 F L 87.6 F L Pulse Rate 82 77 74 Respiratory Rate 20 18 17 Blood Pressure 145/78 H 145/70 H 140/68 Pulse Oximetry 100 100 100 11/13/17 10:00 11/13/17 10:01 11/13/17 10:16 Temperature 87.8 F L 87.8 F L 88.2 F L Pulse Rate 74 75 76 Respiratory Rate 17 19 19 Blood Pressure 135/63 129/60 Pulse Oximetry 100 100 100 11/13/17 10:30 11/13/17 10:45 11/13/17 11:00 Temperature 88.5 F L 88.7 F L 89.1 F L Pulse Rate 76 77 80 Respiratory Rate 18 18 20 Blood Pressure 119/55 L 104/51 L 105/54 L Pulse Oximetry 100 100 100 11/13/17 11:15 11/13/17 11:30 11/13/17 11:45 Temperature 89.2 F L 89.6 F L 90.0 F L Pulse Rate 79 79 84 Respiratory Rate 21 19 34 H Blood Pressure 94/51 L 98/55 L 100/51 L Pulse Oximetry 100 100 100 11/13/17 11:56 11/13/17 12:00 11/13/17 12:15 Temperature 90.1 F L 90.3 F L Pulse Rate 87 84 Respiratory Rate 16 24 27 H Blood Pressure 96/52 L 90/52 L Pulse Oximetry 100 100 100 11/13/17 12:30 11/13/17 12:45 11/13/17 13:00 Temperature 90.7 F L 90.9 F L 91.0 F L Pulse Rate 88 88 87 Respiratory Rate 26 H 22 23 Blood Pressure 88/53 L 90/53 L 84/45 L Pulse Oximetry 100 100 100 11/13/17 13:13 11/13/17 13:15 11/13/17 13:20 Temperature 91.4 F L 91.4 F L 91.4 F L Pulse Rate 87 87 87 Respiratory Rate 26 H 27 H 22 Blood Pressure 80/47 L 79/48 L 83/53 L Pulse Oximetry 100 100 100 Intake & Output 11/12/17 11/13/17 11/13/17 18:59 06:59 18:59 Intake Total 600 / 600 1530 / 1530 115 / 115 Output Total 670 / 670 250 / 250 250 / 250 Balance -70 / -70 1280 / 1280 -135 / -135 Weight 110.9 kg Intake: IV 200 / 200 1530 / 1530 115 / 115 MVI-12 Inj 10 ML Folvite Inj 1 1430 / 1430 MG In TPN Fluid 2 Liter 2,000 ML @ 65 mls/hr IV.SIG Q24H [facility] Rx#:[id number] KCl Inj 30 MEQ In NS Inj 100 ML 115 / 115 @ 38.333 mls/hr IV.SIG Q3H [facility] Rx#:[id number] Flagyl 500 MG Inj 100 ML @ 100 200 / 200 100 / 100 mls/hr IV.SIG Q6H [facility] Rx#: [id number] Oral 400 / 400 0 / 0 Oral Supplement 0 / 0 Output: Urine 220 / 220 Stool 0 / 0 Urine/Stool Mix 0 / 0 0 / 0 Urine Amount (Catheter) 450 / 450 250 / 250 250 / 250 Indwelling Urethral Catheter 450 / 450 250 / 250 250 / 250 Other: Date of Last Bowel Movement 11/12/17 11/12/17 11/12/17 # Bowel Movements 0 0 # Incontinent Bowel Movements 100 0 0 Narrative: Intubated Abd: midline incision clear; low transverse incision ---RIGHT lateral area with thin mildly cloudy drainage now with packing; midline with open area with thin mildly cloudy drainage; LEFT inner thigh with open area---with thick drainage - Urinary Catheter Management Female External Cath placed during this visit: no Indwelling Urethral Catheter Cath placed during this visit: yes, but has since been removed by the nurse Reason for continuing: Severe pressure ulcer/wound Insertion date: 10/09/17 Insertion time: 14:00 Removal date: 10/05/17 Removal time: 17:30 Assessment and Plan - Assessment (1) Fungal infection of skin of abdomen Code(s): B36.9 - Superficial mycosis, unspecified Status: Acute Plan: 52 year old female with large abdominal/thigh wounds -Now intubated in [facility] -Palliative Care following -Continue aggressive wound care -Ensure that patient's wound are dry, wet to dry left thigh -c diff, infected wounds - ID following - Plan patient seen at bedside septic wounds with some drainage but better healing, wet to dry to left thigh will follow no further surgical tx, continue wound care, no evidence of abscess - Attending Attestation The exam, history, and the medical decision-making described in the above note were completed with the assistance of the mid-level provider. I reviewed and agree with the findings presented. I attest that I had a [id number] encounter with the patient on the same day, and personally performed and documented my assessment and findings in the medical record.
[2017-11-13 14:38] LABS: Alanine Aminotransferase 19 U/L (10-53); Albumin 0.8 g/dL (3.4-5.0); Anion Gap 12 meq/L (5-15); Aspartate Aminotransferase 16 U/L (15-37); Blood Urea Nitrogen 19 mg/dL (7-18); Calcium 7.9 mg/dL (8.5-10.1); Carbon Dioxide 16.7 meq/L (21.0-32.0); Chloride 118 meq/L (98-107); Glomerular Filtration Rate 45 mL/min (>89); Glucose,Random 183 mg/dL (74-106); Potassium 3.2 meq/L (3.5-5.1); Sodium 147 meq/L (136-145)
[2017-11-13 14:40] LABS: Alkaline Phosphatase 134 U/L (45-117); Total Protein 4.1 g/dL (6.4-8.2)
[2017-11-13] MEDS: traZODone 100 MG Tablet PO SCH (23:13)
[2017-11-13] MEDS: Mirtazapine 15 MG Tablet PO SCH (23:13)
[2017-11-14] MEDS: Insulin NovoLOG Aspart Correctional Sugar Inj SQ SCH ×4 (02:52→17:29)
[2017-11-14] MEDS: Oral Hygiene Kit OROPHARYNG SCH ×4 (02:53→16:56)
--- NOTE | 2017-11-14 09:22 | P.PNFP ---
Subjective Interval history: Patient seen and examined this morning. Overnight patient with continued hypotension while intubated and sedated. Patient continues to require ventilatory support, but has been able to tolerate sedation weening. Currently she responds to verbal stimuli on sedation. Currently tolerating assisted ventilator respiration well. Examination completed with assistance of nursing staff. Patient's abdominal wounds appear to be expanding with increased erythema along the medial side of bilateral thighs as well as increased tracking along the abdominal fold wound. Per nursing report, her sacral wound appears to be worsening as well. <Chaz Vivar H - 11/14/17 10:48> Results - Labs Result diagrams: 11/14/17 10:37 11/14/17 10:37 <Maddy Jackson M - 11/14/17 17:35> Abnormal lab results 11/14/17 11/14/17 11/14/17 Range/Units 05:27 10:37 10:37 WBC 15.1 H (4.0-11.0) th/mm3 RBC 2.83 L (4.00-5.30) mil/mm3 Hgb 7.9 L (11.6-15.3) gm/dL Hct 23.6 L (35.0-46.0) % Plt Count 91 L D (150-450) th/mm3 Neut % (Auto) 80.1 H (16.0-70.0) % Neut # (Auto) 12.1 H (1.8-7.7) th/mm3 Band Neuts % (Manual) 13 H (0-6) % Abs Neuts (Manual) 12.1 H (1.8-7.7) th/mm3 Nucleated RBCs/100 WBC 3 H (0-0) /100 WBC Toxic Vacuolation Present H (None) Platelet Estimate Low L (Normal) Spherocytes Occ H (None) Target Cells 1+ H (None) Chloride 116 H (98-107) meq/L Carbon Dioxide 18.9 L (21.0-32.0) meq/L BUN 26 H (7-18) mg/dL Creatinine 1.79 H (0.50-1.00) mg/dL Estimated GFR 36 L (>89) mL/min POC Glucose 113 H (68-110) mg/dl Calcium 8.1 L (8.5-10.1) mg/dL Alkaline Phosphatase 161 H (45-117) U/L Total Protein 4.6 L (6.4-8.2) g/dL Albumin 0.9 L (3.4-5.0) g/dL 11/14/17 11/14/17 Range/Units 12:46 16:41 WBC (4.0-11.0) th/mm3 RBC (4.00-5.30) mil/mm3 Hgb (11.6-15.3) gm/dL Hct (35.0-46.0) % Plt Count (150-450) th/mm3 Neut % (Auto) (16.0-70.0) % Neut # (Auto) (1.8-7.7) th/mm3 Band Neuts % (Manual) (0-6) % Abs Neuts (Manual) (1.8-7.7) th/mm3 Nucleated RBCs/100 WBC (0-0) /100 WBC Toxic Vacuolation (None) Platelet Estimate (Normal) Spherocytes (None) Target Cells (None) Chloride (98-107) meq/L Carbon Dioxide (21.0-32.0) meq/L BUN (7-18) mg/dL Creatinine (0.50-1.00) mg/dL Estimated GFR (>89) mL/min POC Glucose 148 H 154 H (68-110) mg/dl Calcium (8.5-10.1) mg/dL Alkaline Phosphatase (45-117) U/L Total Protein (6.4-8.2) g/dL Albumin (3.4-5.0) g/dL Short CBC 11/14/17 Range/Units 10:37 WBC 15.1 H (4.0-11.0) th/mm3 Hgb 7.9 L (11.6-15.3) gm/dL Hct 23.6 L (35.0-46.0) % Plt Count 91 L D (150-450) th/mm3 BMP 11/14/17 10:37 Sodium 144 Potassium 4.5 D Chloride 116 H Carbon Dioxide 18.9 L BUN 26 H Creatinine 1.79 H Calcium 8.1 L Liver Function 11/14/17 Range/Units 10:37 Total Bilirubin 0.2 (0.2-1.0) mg/dL AST 26 (15-37) U/L ALT 22 (10-53) U/L Alkaline Phosphatase 161 H (45-117) U/L Albumin 0.9 L (3.4-5.0) g/dL <Maddy Jackson M - 11/14/17 17:35> Abnormal lab results 11/13/17 11/13/17 11/13/17 Range/Units 11:32 13:52 16:19 Sodium 147 H (136-145) meq/L Potassium 3.2 L (3.5-5.1) meq/L Chloride 118 H (98-107) meq/L Carbon Dioxide 16.7 L (21.0-32.0) meq/L BUN 19 H (7-18) mg/dL Creatinine 1.46 H (0.50-1.00) mg/dL Estimated GFR 45 L (>89) mL/min POC Glucose 248 H 132 H (68-110) mg/dl Random Glucose 183 H (74-106) mg/dL Calcium 7.9 L (8.5-10.1) mg/dL Alkaline Phosphatase 134 H (45-117) U/L Total Protein 4.1 L (6.4-8.2) g/dL Albumin 0.8 L (3.4-5.0) g/dL 11/14/17 Range/Units 05:27 Sodium (136-145) meq/L Potassium (3.5-5.1) meq/L Chloride (98-107) meq/L Carbon Dioxide (21.0-32.0) meq/L BUN (7-18) mg/dL Creatinine (0.50-1.00) mg/dL Estimated GFR (>89) mL/min POC Glucose 113 H (68-110) mg/dl Random Glucose (74-106) mg/dL Calcium (8.5-10.1) mg/dL Alkaline Phosphatase (45-117) U/L Total Protein (6.4-8.2) g/dL Albumin (3.4-5.0) g/dL BMP 11/13/17 13:52 Sodium 147 H Potassium 3.2 L Chloride 118 H Carbon Dioxide 16.7 L BUN 19 H Creatinine 1.46 H Calcium 7.9 L Liver Function 11/13/17 Range/Units 13:52 Total Bilirubin 0.2 (0.2-1.0) mg/dL AST 16 (15-37) U/L ALT 19 (10-53) U/L Alkaline Phosphatase 134 H (45-117) U/L Albumin 0.8 L (3.4-5.0) g/dL <VivarChaz H - 11/14/17 09:22> - Imaging Impressions PICC Line Insertion 11/11/17 08:51 CONCLUSION: 1. Uncomplicated central venous Power PICC line placement. 2. The PICC line can be used immediately. <Chaz Vivar H - 11/14/17 09:22> Physical Exam Vital signs: Vital Signs 11/13/17 20:00 11/13/17 20:48 11/14/17 00:00 Temperature 93.4 F L 97.2 F L Pulse Rate 108 H 97 H Respiratory Rate 27 H 24 25 H Blood Pressure 107/55 L 107/52 L Pulse Oximetry 99 100 100 11/14/17 00:30 11/14/17 00:46 11/14/17 01:01 Temperature 96.8 F L 97.0 F L 97.2 F L Pulse Rate 99 H 101 H 73 Respiratory Rate 25 H 24 34 H Blood Pressure 112/50 L 93/53 L 162/92 H Pulse Oximetry 100 100 100 11/14/17 01:16 11/14/17 01:31 11/14/17 01:36 Temperature 97.5 F L 97.5 F L Pulse Rate 100 H 98 H Respiratory Rate 20 24 18 Blood Pressure 112/70 86/48 L Pulse Oximetry 99 100 100 11/14/17 01:45 11/14/17 02:00 11/14/17 02:16 Temperature 97.7 F 97.9 F 98.1 F Pulse Rate 107 H 104 H 107 H Respiratory Rate 24 23 25 H Blood Pressure 90/52 L 83/46 L 102/51 L Pulse Oximetry 100 99 99 11/14/17 02:30 11/14/17 02:33 11/14/17 02:42 Temperature 98.1 F 98.2 F 98.2 F Pulse Rate 104 H 111 H 106 H Respiratory Rate 23 24 25 H Blood Pressure 79/47 L 82/50 L 81/48 L Pulse Oximetry 99 99 99 11/14/17 02:45 11/14/17 03:00 11/14/17 03:03 Temperature 98.2 F 98.4 F 98.4 F Pulse Rate 113 H 107 H 109 H Respiratory Rate 27 H 23 35 H Blood Pressure 88/53 L 81/45 L 92/54 L Pulse Oximetry 86 L 100 100 11/14/17 03:56 11/14/17 04:00 11/14/17 04:39 Temperature 98.8 F Pulse Rate 107 H 109 H Respiratory Rate 22 22 Blood Pressure 87/52 L Pulse Oximetry 100 99 11/14/17 05:00 11/14/17 06:00 11/14/17 07:00 Temperature 99.3 F 99.5 F 99.9 F H Pulse Rate 111 H 111 H 113 H Respiratory Rate 21 23 21 Blood Pressure 92/54 L 85/48 L 94/51 L Pulse Oximetry 99 99 99 11/14/17 08:00 11/14/17 09:00 11/14/17 09:04 Temperature 99.5 F 98.2 F Pulse Rate 116 H 124 H Respiratory Rate 22 31 H 31 H Blood Pressure 93/49 L 150/70 H Pulse Oximetry 100 100 11/14/17 10:00 11/14/17 10:01 11/14/17 11:01 Temperature 98.2 F 98.2 F 97.7 F Pulse Rate 116 H 110 H 106 H Respiratory Rate 31 H 28 H 30 H Blood Pressure 121/55 L 135/106 H Pulse Oximetry 95 11/14/17 11:10 11/14/17 12:00 11/14/17 12:01 Temperature 95.5 F L 96.6 F L 96.6 F L Pulse Rate 110 H 105 H 105 H Respiratory Rate 25 H 26 H 22 Blood Pressure 105/53 L 139/64 Pulse Oximetry 100 100 100 11/14/17 13:00 11/14/17 13:06 11/14/17 14:00 Temperature 96.3 F L 96.1 F L Pulse Rate 114 H 99 H Respiratory Rate 25 H 25 H 18 Blood Pressure 112/62 98/50 L Pulse Oximetry 100 100 100 11/14/17 15:01 11/14/17 15:04 11/14/17 15:13 Temperature 95.4 F L 95.4 F L Pulse Rate 90 111 H Respiratory Rate 17 21 18 Blood Pressure 166/106 H 155/72 H Pulse Oximetry 90 L 88 L 100 11/14/17 16:00 11/14/17 17:01 Temperature 95.0 F L 94.6 F L Pulse Rate 105 H 99 H Respiratory Rate 34 H 15 Blood Pressure 170/81 H 115/58 L Pulse Oximetry 98 100 Intake & Output 11/13/17 11/14/17 11/14/17 18:59 06:59 18:59 Intake Total 1347 / 1347 1284 / 1284 2104 / 2104 Output Total 1600 / 1600 125 / 125 780 / 780 Balance -253 / -253 1159 / 1159 1324 / 1324 Weight 113.4 kg Intake: IV 815 / 815 500 / 500 Diprivan 1000 mg/100 ml Inj 1, 100 / 100 000 mg In 100 ml @ 5 MCG/KG/MIN 3.261 mls/hr IV.CONT TITRATE PRN Rx#:[id number] Zyvox 600 mg Premix 300 ML @ 300 / 300 300 / 300 300 mls/hr IV.SIG Q12H [facility] Rx#: [id number] Magnesium Sulfate 1 gm/D5W 100 100 / 100 ml Premix 100 ML @ 100 mls/hr IV.SIG Q1H [facility] Rx#:[id number] Merrem Inj 1,000 MG In NS Inj 100 / 100 200 / 200 100 ML @ 200 mls/hr IV.SIG Q8H [facility] Rx#:[id number] Mycamine Inj 100 MG In NS Inj 100 / 100 100 ML @ 100 mls/hr IV.SIG Q24H [facility] Rx#:[id number] KCl Inj 30 MEQ In NS Inj 100 ML 115 / 115 @ 38.333 mls/hr IV.SIG Q3H [facility] Rx#:[id number] Oral 0 / 0 0 / 0 0 / 0 Oral Supplement 0 / 0 Tube Feeding 412 / 412 784 / 784 784 / 784 Tube Irrigant 120 / 120 120 / 120 Other 1200 / 1200 Output: Urine 125 / 125 125 / 125 Stool 500 / 500 500 / 500 Urine/Stool Mix 0 / 0 0 / 0 0 / 0 Estimated Blood Loss 30 / 30 Urine Amount (Catheter) 1100 / 1100 125 / 125 Indwelling Urethral Catheter 1100 / 1100 125 / 125 Wound Drainage 0 / 0 ZAMZAM Drain 0 / 0 Other: Other Intake Source Saline Solution # Voids 1 # Incontinent Voids 1 Date of Last Bowel Movement 11/13/17 11/13/17 11/13/17 # Bowel Movements 0 0 0 # Incontinent Bowel Movements 0 0 0 # Emeses 1 <Maddy Jackson 11/14/17 17:35> Vital Signs 11/13/17 09:15 11/13/17 09:30 11/13/17 09:45 Temperature 87.1 F L 87.3 F L 87.6 F L Pulse Rate 82 77 74 Respiratory Rate 20 18 17 Blood Pressure 145/78 H 145/70 H 140/68 Pulse Oximetry 100 100 100 11/13/17 10:00 11/13/17 10:01 11/13/17 10:16 Temperature 87.8 F L 87.8 F L 88.2 F L Pulse Rate 74 75 76 Respiratory Rate 17 19 19 Blood Pressure 135/63 129/60 Pulse Oximetry 100 100 100 11/13/17 10:30 11/13/17 10:45 11/13/17 11:00 Temperature 88.5 F L 88.7 F L 89.1 F L Pulse Rate 76 77 80 Respiratory Rate 18 18 20 Blood Pressure 119/55 L 104/51 L 105/54 L Pulse Oximetry 100 100 100 11/13/17 11:15 11/13/17 11:30 11/13/17 11:45 Temperature 89.2 F L 89.6 F L 90.0 F L Pulse Rate 79 79 84 Respiratory Rate 21 19 34 H Blood Pressure 94/51 L 98/55 L 100/51 L Pulse Oximetry 100 100 100 11/13/17 11:56 11/13/17 12:00 11/13/17 12:15 Temperature 90.1 F L 90.3 F L Pulse Rate 87 84 Respiratory Rate 16 24 27 H Blood Pressure 96/52 L 90/52 L Pulse Oximetry 100 100 100 11/13/17 12:30 11/13/17 12:45 11/13/17 13:00 Temperature 90.7 F L 90.9 F L 91.0 F L Pulse Rate 88 88 87 Respiratory Rate 26 H 22 23 Blood Pressure 88/53 L 90/53 L 84/45 L Pulse Oximetry 100 100 100 11/13/17 13:13 11/13/17 13:15 11/13/17 13:20 Temperature 91.4 F L 91.4 F L 91.4 F L Pulse Rate 87 87 87 Respiratory Rate 26 H 27 H 22 Blood Pressure 80/47 L 79/48 L 83/53 L Pulse Oximetry 100 100 100 11/13/17 13:30 11/13/17 13:45 11/13/17 14:00 Temperature 91.8 F L 91.8 F L 92.1 F L Pulse Rate 93 H 88 85 Respiratory Rate 26 H 23 20 Blood Pressure 88/56 L 98/54 L 85/48 L Pulse Oximetry 100 100 100 11/13/17 14:15 11/13/17 14:30 11/13/17 14:46 Temperature 92.3 F L 92.5 F L 92.7 F L Pulse Rate 85 91 H 78 Respiratory Rate 20 27 H 25 H Blood Pressure 82/53 L 119/56 L 201/88 H Pulse Oximetry 100 100 100 11/13/17 15:01 11/13/17 15:15 11/13/17 15:29 Temperature 92.8 F L 93.0 F L Pulse Rate 94 H 94 H Respiratory Rate 20 26 H 25 H Blood Pressure 94/51 L 79/43 L Pulse Oximetry 100 100 100 11/13/17 15:30 11/13/17 15:35 11/13/17 15:45 Temperature 93.4 F L 93.4 F L 93.6 F L Pulse Rate 91 H 94 H 91 H Respiratory Rate 26 H 21 27 H Blood Pressure 75/45 L 82/50 L 77/47 L Pulse Oximetry 100 100 100 11/13/17 15:55 11/13/17 16:00 11/13/17 16:02 Temperature 93.6 F L 93.7 F L 93.7 F L Pulse Rate 89 91 H 100 H Respiratory Rate 22 23 22 Blood Pressure 75/43 L 75/45 L 92/53 L Pulse Oximetry 100 100 100 11/13/17 16:15 11/13/17 16:30 11/13/17 16:45 Temperature 93.9 F L 93.9 F L 94.1 F L Pulse Rate 90 69 100 H Respiratory Rate 26 H 31 H 18 Blood Pressure 77/43 L 93/52 L 96/52 L Pulse Oximetry 100 100 100 11/13/17 17:00 11/13/17 20:00 11/13/17 20:48 Temperature 94.1 F L 93.4 F L Pulse Rate 101 H 108 H Respiratory Rate 21 27 H 24 Blood Pressure 88/52 L 107/55 L Pulse Oximetry 100 99 100 11/14/17 00:00 11/14/17 01:36 11/14/17 03:56 Temperature 97.2 F L Pulse Rate 97 H 107 H Respiratory Rate 25 H 18 Blood Pressure 107/52 L Pulse Oximetry 100 100 11/14/17 04:00 11/14/17 04:39 11/14/17 09:04 Temperature 99.1 F Pulse Rate 109 H Respiratory Rate 22 22 31 H Blood Pressure 87/52 L Pulse Oximetry 100 99 100 Intake & Output 11/13/17 11/14/17 11/14/17 18:59 06:59 18:59 Intake Total 1147 / 1147 884 / 884 2104 / 2104 Output Total 1600 / 1600 125 / 125 780 / 780 Balance -453 / -453 759 / 759 1324 / 1324 Weight 113.4 kg Intake: IV 615 / 615 100 / 100 Zyvox 600 mg Premix 300 ML @ 300 / 300 300 mls/hr IV.SIG Q12H [facility] Rx#: [id number] Magnesium Sulfate 1 gm/D5W 100 100 / 100 ml Premix 100 ML @ 100 mls/hr IV.SIG Q1H [facility] Rx#:[id number] Merrem Inj 1,000 MG In NS Inj 100 / 100 100 / 100 100 ML @ 200 mls/hr IV.SIG Q8H [facility] Rx#:[id number] KCl Inj 30 MEQ In NS Inj 100 ML 115 / 115 @ 38.333 mls/hr IV.SIG Q3H [facility] Rx#:[id number] Oral 0 / 0 0 / 0 0 / 0 Oral Supplement 0 / 0 Tube Feeding 412 / 412 784 / 784 784 / 784 Tube Irrigant 120 / 120 120 / 120 Other 1200 / 1200 Output: Urine 125 / 125 125 / 125 Stool 500 / 500 500 / 500 Urine/Stool Mix 0 / 0 0 / 0 0 / 0 Estimated Blood Loss 30 / 30 Urine Amount (Catheter) 1100 / 1100 125 / 125 Indwelling Urethral Catheter 1100 / 1100 125 / 125 Wound Drainage 0 / 0 ZAMZAM Drain 0 / 0 Other: Other Intake Source Saline Solution # Voids 1 # Incontinent Voids 1 Date of Last Bowel Movement 11/13/17 11/13/17 11/13/17 # Bowel Movements 0 0 0 # Incontinent Bowel Movements 0 0 0 # Emeses 1 <Chaz Vivar H - 11/14/17 09:22> Narrative: GENERAL: Morbidly obese -[place] female lying in bed intubated and sedated with soft restraints intact. HEENT: Atraumatic, normocephalic. No rhinorrhea. ET tube in place. No visible lymphadenopathy or jugulovenous distension appreciated. CARDIOVASCULAR: Tachycardic rate (baseline) and regular rhythm without obvious murmurs, gallops, or rubs. RESPIRATORY: Continued bilateral rhonchi at the BL bases. Breath sounds difficult to auscultate due to body habitus and ventilator noise. No increased work of breathing. GASTROINTESTINAL: Abdomen diffuse, soft with soft bowel sounds likely due to body habitus. Patient nontender in the upper 2 quadrants, deferred tenderness evaluation and lower quadrants due to wounds. No masses appreciated. Rectal tube in place with liquid fecal material in reservoir, rectal tube with leaking material on to sacral area. Hopper catheter in place with minimal urinary output in reservoir. MUSCULOSKELETAL: No cyanosis. Stable bilateral upper extremity 1+ edema. Stable bilateral lower extremity 2+. No calf tenderness. Left knee effusion stable and nontender to palpation. SCDs in place. NEURO/PSYCH: Patient intubated and lightly sedated. Responds to verbal stimuli, RASS -2. SKIN: Cool and dry. No rash. PICC line inserted without surrounding erythema, warmth, or other signs of infection. ABD wounds: Currently bandaged with areas of purulent drainage on the pelvic wounds. No signs of hemorrhage. All bandages damp from serosanguineous drainage. Closely examined abdominal wounds on 11/12/17 with staff assistance. Lower midline abdomen wound and transverse area with areas of medical stapling appear stable from earlier exams. Wounds extending into the pubic area and draining purulent material that appear acutely worsened. The wound extends over the right anterior hip which also appears to be worsened and draining purulence. Sacral area with deep sacral ulcer covered in fecal material due to rectal tube leak with purulent material. Overall wounds look worse than prior exams with increased purulence and serosanguineous drainage. Bedding overlying affected area is partly saturated. <Chaz Vivar H - 11/14/17 10:48> - Urinary Catheter Management Female External Cath placed during this visit: no <Maddy Jackson - 11/14/17 17:35> no <Chaz Vivar - 11/14/17 10:48> Indwelling Urethral Catheter Cath placed during this visit: no <Maddy Jackson - 11/14/17 17:35> yes, but has since been removed by the nurse <Chaz Vivar - 11/14/17 10:48> Reason for continuing: Severe pressure ulcer/wound <Chaz Vivar - 11/14/17 09:22> Insertion date: 10/09/17 <Chaz Vivar - 11/14/17 09:22> Insertion time: 14:00 <Chaz Vivar - 11/14/17 09:22> Removal date: 10/05/17 <Chaz Vivar - 11/14/17 09:22> Removal time: 17:30 <Chaz Vivar - 11/14/17 09:22> Assessment and Plan - Assessment (1) Respiratory failure Code(s): J96.90 - Respiratory failure, unspecified, unspecified whether with hypoxia or hypercapnia Status: Acute (2) Aspiration into airway Code(s): T17.908A - Unspecified foreign body in respiratory tract, part unspecified causing other injury, initial encounter Status: Acute (3) Open wound of abdominal wall Code(s): S31.109A - Unspecified open wound of abdominal wall, unspecified quadrant without penetration into peritoneal cavity, initial encounter Status : Acute (4) Poor nutrition Code(s): E63.9 - Nutritional deficiency, unspecified Status: Acute (5) Thrombocytopenia Code(s): D69.6 - Thrombocytopenia, unspecified Status: Acute (6) Creatinine elevation Code(s): R79.89 - Other specified abnormal findings of blood chemistry Status : Acute (7) Schizophrenia Code(s): F20.9 - Schizophrenia, unspecified Status: Chronic (8) Altered mental status Code(s): R41.82 - Altered mental status, unspecified Status: Acute (9) Hypoglycemia Code(s): E16.2 - Hypoglycemia, unspecified Status: Resolved (10) Cellulitis of knee, left Code(s): L03.116 - Cellulitis of left lower limb Status: Acute (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 difficile diarrhea Code(s): A04.72 - Enterocolitis due to Clostridium difficile, not specified as recurrent Status: Acute (15) Fall Code(s): W19.XXXA - Unspecified fall, initial encounter Status: Acute (16) Hypertension Code(s): I10 - Essential (primary) hypertension Status: Acute (17) Tachycardia Code(s): R00.0 - Tachycardia, unspecified Status: Chronic (18) Nutrition, metabolism, and development symptoms Code(s): R63.8 - Other symptoms and signs concerning food and fluid intake Status: Acute <Maddy Jackson - 11/14/17 17:35> (1) Respiratory failure Code(s): J96.90 - Respiratory failure, unspecified, unspecified whether with hypoxia or hypercapnia Status: Acute Plan: Patient with possible aspiration episode on 11/12/17 with subsequent acute respiratory failure requiring intubation -11/12/17 AB.3/33/219/16 -Patient intubated and sedated -Health Companion consulted (2) Aspiration into airway Code(s): T17.908A - Unspecified foreign body in respiratory tract, part unspecified causing other injury, initial encounter Status: Acute Plan: Patient with possible aspiration episode overnight 11/09/17 with another episode on 11/12/17. Patient now with respiratory failure as above -Chest x-ray 11/09/12: Interval development of left lower lobe consolidation -CXR 11/10/17: Left upper extremity PICC distal tip at the junction of the SVC and brachiocephalic vein. Bibasilar airspace opacity could represent atelectasis versus consolidation. -CXR 11/12/17: Interim intubation. Endotracheal tip at the shaka. Small effusion and mild consolidation developing at the right base. -Sputum cultures: Gram stain with rare gram positive cocci in pairs, many WBC, mucus; Culture pending Speech therapy consulted for swallow evaluation once extubated -ID consulted Medications: -Meropenem (11/13/17- ) -Micafungin (11/13/17- ) -Linezolid (11/13/17- ) Levaquin (11/10/17- ) -Flagyl (11/10/17-11/13/17) (3) Open wound of abdominal wall Code(s): S31.109A - Unspecified open wound of abdominal wall, unspecified quadrant without penetration into peritoneal cavity, initial encounter Status : Acute Plan: Large abdominal and pelvic wounds that appear not to be healing likely secondary to poor nutritional status -Wound Culture 09/27/17: Pseudomonas and Group B Step -Blood Cultures 10/24/17: Negative -Tissue Cultures 10/09/17: Negative -Abdominal wound culture 11/01/17: Group D Enterococcus, sensitive to Daptomycin ; Fungal species -Blood Culture 11/07/17 per TPN protocol: Negative to date -Blood Culture 11/12/17: NTD -Infectious disease consulted -General surgery consulted -Surgical debridement 10/09, wound VAC applied. -VAC changed 10/12 removed 10/15. -Debridement, irrigation, with suturing performed on 10/16. -I&D of abdomen and bilateral thighs, placement of Amniox with wound closure on 11/01/17 -Dressing changes per general surgery Medications: -Meropenem (11/13/17- ) -Micafungin (11/13/17- ) -Linezolid (11/13/17- ) Levaquin (11/10/17- ) -Daptomycin IV for suspected VRE per ID (11/03/17-11/13/17) -Cefepime IV (09/29/17-11/08/17) discontinued due to thrombocytopenia and elevated creatinine -Flagyl (11/10/17- ) -Diflucan 500mg daily (11/12/17) (4) Poor nutrition Code(s): E63.9 - Nutritional deficiency, unspecified Status: Acute Plan: -Patient with poor nutritional status during hospitalization -Severe concern of poor wound healing secondary to poor nutritional status -Manager Of Loss Prevention Operations consulted for calorie count and nutritional guidance, which has been limited due to NPO status prior to surgery, however patient continues to have poor intake -Multivitamin IV added with Hermes supplementation BID -Albumin levels continued to be decreased -Patient unable to receive 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 Briefly discussed with surgery about the possibility of a JG tube versus surgical placement of PEG tube, deferred as patient will likely not heal from surgical procedure due to nutritional status -NG tube placed with vital 1.5 tube feeds started per dietary Patient to start TPN, Clinimix E 08/05 @ 65 mls/hr with 20% lipids 250 mls 2x/ week (11/07/17- ); plan to wean as tolerated now that patient has NG tube for feeding (5) Thrombocytopenia Code(s): D69.6 - Thrombocytopenia, unspecified Status: Acute Plan: Patient with decreasing platelet count -Etiology unknown -No signs of acute bruising/bleeding on limited skin exam due to body habitus -Continue to monitor (6) Creatinine elevation Code(s): R79.89 - Other specified abnormal findings of blood chemistry Status : Acute Plan: Patient with acute creatinine elevation with starting TPN. -Unknown etiology at this time -Patient with decreasing urinary output, nursing to discuss with ID for possible Hopper exchange to assist with decrease output due to clot/obstruction -Electrolytes WNL -Continue to monitor Creatinine (7) Schizophrenia Code(s): F20.9 - Schizophrenia, unspecified Status: Chronic Plan: -Psychiatry consulted upon admission -Patient with increased agitation and disorientation on 11/09/17; during episode patient pulled PICC line and attempted to pull out rectal/Hopper; patient required 1 mg Haldol for agitation during episode -Psychiatry consulted for further evaluation Medications: -Haldol 1-2 mg IV/IM every 8 hours as needed for aggressive behavior/agitation -Continue Abilify 30 mg for psychosis -Continue buspirone 30 mg, trazodone 100 mg and Cymbalta 60 mg -Started Mirtazapine 15mg QHS to assist with mood as well as appetite stimulant -Hold anticholinergics per Psych (8) Altered mental status Code(s): R41.82 - Altered mental status, unspecified Status: Acute Plan: Patient with altered mental status overnight 11/11/17 with possible aspiration due to new dysphagia. Patient's mental status continues to decline with a GCS score of 10. Likely related to hypoglycemia as patient did not have access and was not able to receive nutrition via PICC line and is n.p.o. for failed swallow study. -CT Head: Interval enlargement of the ventricular system of uncertain etiology. No clear evidence of an obstructing process. Otherwise stable evaluation without evidence of acute infarct, hemorrhage, mass, or edema. -MRI wo contrast: Negative for acute process -Speech therapy consulted Neurology consulted, appreciate recommendations -No active neurological issues -Health Companion consulted, appreciate recommendations Medications: -Glucagon given overnight -STAT buccal glucose given -TPN re-initiated -All PO medications placed on Hold -Haldol 1mg PRN for agitation/hallucinations -Lopressor 5mg IV PRN for HR >120 every 15min (9) Hypoglycemia Code(s): E16.2 - Hypoglycemia, unspecified Status: Resolved Plan: Patient presenting with altered mental status 11/11/17 Differential remains wide, however patient also with hypoglycemia likely contributing to mental status Patient currently n.p.o. due to dysphagia Patient has lost PICC line 2 and currently does not have IV access due to poor vasculature, therefore she has been unable to receive TPN, fluids, or antibiotics at this time Stat consult to IR for PICC line placement, DW Dr. Ellis -PICC place without complications -TPN restarted Medications: Patient given buccal glucose PRN Patient given glucagon 1 overnight -TPN initiated (10) Cellulitis of knee, left Code(s): L03.116 - Cellulitis of left lower limb Status: Acute Plan: -ID consulted, recommend Cefepime until 11/08/17 -Orthopedic surgery consulted, no further recommendations at this time Medications: -As above (11) Prosthetic joint infection Code(s): 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 She completed rehabilitation and was discharged home August 23. Patient was on approximately 2 weeks of po Keflex 500 mg. Per Ortho, examination of left knee shows no evidence of infection. (12) Hypokalemia Code(s): E87.6 - Hypokalemia Status: Resolved Plan: -Patient with hypokalemia during hospitalization. Appears to be not tolerating ER capsules as they were found whole in her rectal tube reservoir. Medications: -Patient placed on ICU electrolyte protocol (13) Anemia Code(s): D64.9 - Anemia, unspecified Status: Resolved Plan: -Patient found to have asymptomatic anemia H/H of 7/20.3 with MCV of 82 on -Rectal tube and Hopper catheter without any signs of acute bleeding -Dressings without obvious signs of bleeding -Due to critical condition and severity of abdominal wounds with decreasing hemoglobin, 2 units PRBC ordered (10 units total thus far during admission) -Patient did receive Lasix between units to assist with possible fluid overload -Continue to monitor (14) C. difficile diarrhea Code(s): A04.72 - Enterocolitis due to Clostridium difficile, not specified as recurrent Status: Acute Plan: -C diff cultures positive 10/19/17 -Vancomycin PO 125 4 times daily -Continue with probiotics. -Rectal tube in place (15) Fall Code(s): W19.XXXA - Unspecified fall, initial encounter Status: Acute Plan: Patient with fall on 10/19/17. No loss of consciousness, no head injury, left knee and ankle pain. -Knee x-ray- Prosthesis in place, No abnormality appreciated -Ankle x-ray- No abnormality appreciated -Patient to continue with PT (16) Tachycardia Code(s): R00.0 - Tachycardia, unspecified Status: Chronic Plan: -Patient with chronic history of tachycardia -EKG 09/27/17: Sinus tachycardia with rate of [address] or interval changes. (Per medical team read) Medications: -Lopressor 5mg IV PRN for HR >120 if unable to tolerate PO -Continue home diltiazem and carvedilol (17) Nutrition, metabolism, and development symptoms Code(s): R63.8 - Other symptoms and signs concerning food and fluid intake Status: Acute Plan: Fluids: NG tube feeds with Vital 1.5 @ 50 mls/hr goal, plan to ween TPN with SSI as needed Electrolytes: Replete as needed per ICU protocol Nutrition: -Manager Of Loss Prevention Operations consulted for nutritional guidance -NG tube placed and tube feeds started with vital 1.5 at 50 mils per hour (goal) -TPN Clinimix E 20 @ 65 mls/hr with 20% lipids 250 mls 2x/week (11/07/17- ); plan to wean as tolerated now that NG tube feeds have been initiated Vascular axis reconsulted for PICC line placement; placed in left upper extremity DVT prophylaxis: SCDs, Defer medical prophylaxis due to anemia Continue to work with OT/PT to improve ambulation <Chaz Vivar H - 11/14/17 10:19> - Assessment and Plan . <Chaz Vivar - 11/14/17 09:22> - Attending Attestation The exam, history, and the medical decision-making described in the above note were completed with the assistance of the resident physician. I reviewed and agree with the findings presented. I attest that I had a [id number] encounter with the patient on the same day, and personally performed and documented my assessment and findings in the medical record. Discussed with this lady's about transfer to [facility] which is a long- term vent facility. Discussed with him that she could get some rehab while she was there as they push patients in other ways. They sometimes are able to take patients that are extremely ill and turn them around and get them better. After 6 weeks here Ms. Mcclain could use a different therapeutic environment. Her is in agreement with this and hope that this will be able to happen tomorrow. <Maddy Jackson - 11/14/17 17:35> <Chaz Vivar - Last Filed: 11/14/17 10:19> (1) Respiratory failure Qualifiers: Chronicity: acute (2) Aspiration into airway Qualifiers: Encounter type: initial encounter Qualified Code(s): T17.908A - Unspecified foreign body in respiratory tract, part unspecified causing other injury, initial encounter (3) Open wound of abdominal wall Qualifiers: Encounter type: initial encounter Qualified Code(s): S31.109A - Unspecified open wound of abdominal wall, unspecified quadrant without penetration into peritoneal cavity, initial encounter (8) Altered mental status Qualifiers: Altered mental status type: unspecified Qualified Code(s): R41.82 - Altered mental status, unspecified (13) Anemia Qualifiers: Anemia type: unspecified type Qualified Code(s): D64.9 - Anemia, unspecified <Maddy Jackson - Last Filed: 11/14/17 17:35> (1) Respiratory failure Qualifiers: Chronicity: acute (2) Aspiration into airway Qualifiers: Encounter type: initial encounter Qualified Code(s): T17.908A - Unspecified foreign body in respiratory tract, part unspecified causing other injury, initial encounter (3) Open wound of abdominal wall Qualifiers: Encounter type: initial encounter Qualified Code(s): S31.109A - Unspecified open wound of abdominal wall, unspecified quadrant without penetration into peritoneal cavity, initial encounter (8) Altered mental status Qualifiers: Altered mental status type: unspecified Qualified Code(s): R41.82 - Altered mental status, unspecified (13) Anemia Qualifiers: Anemia type: unspecified type Qualified Code(s): D64.9 - Anemia, unspecified (16) Hypertension Qualifiers: Hypertension type: essential hypertension Qualified Code(s): I10 - Essential (primary) hypertension <Chaz Vivar H - Last Filed: 11/14/17 10:19> (1) Respiratory failure Qualifiers: Chronicity: acute (2) Aspiration into airway Qualifiers: Encounter type: initial encounter Qualified Code(s): T17.908A - Unspecified foreign body in respiratory tract, part unspecified causing other injury, initial encounter (3) Open wound of abdominal wall Qualifiers: Encounter type: initial encounter Qualified Code(s): S31.109A - Unspecified open wound of abdominal wall, unspecified quadrant without penetration into peritoneal cavity, initial encounter (8) Altered mental status Qualifiers: Altered mental status type: unspecified Qualified Code(s): R41.82 - Altered mental status, unspecified (13) Anemia Qualifiers: Anemia type: unspecified type Qualified Code(s): D64.9 - Anemia, unspecified <Maddy Jackson - Last Filed: 11/14/17 17:35> (1) Respiratory failure Qualifiers: Chronicity: acute (2) Aspiration into airway Qualifiers: Encounter type: initial encounter Qualified Code(s): T17.908A - Unspecified foreign body in respiratory tract, part unspecified causing other injury, initial encounter (3) Open wound of abdominal wall Qualifiers: Encounter type: initial encounter Qualified Code(s): S31.109A - Unspecified open wound of abdominal wall, unspecified quadrant without penetration into peritoneal cavity, initial encounter (8) Altered mental status Qualifiers: Altered mental status type: unspecified Qualified Code(s): R41.82 - Altered mental status, unspecified (13) Anemia Qualifiers: Anemia type: unspecified type Qualified Code(s): D64.9 - Anemia, unspecified (16) Hypertension Qualifiers: Hypertension type: essential hypertension Qualified Code(s): I10 - Essential (primary) hypertension
[2017-11-14] MEDS: Chlorhexidine 0.12% Oral Kit 15 ML UDC OROPHARYNG SCH ×2 (10:28→20:57)
[2017-11-14] MEDS: Metoprolol Tartrate 25 MG Tablet PO SCH (10:29)
[2017-11-14 10:53] LABS: Baso % (Auto) 0.2 % (0.0-2.0); Eos # (Auto) 0.1 th/mm3 (0.0-0.4); Eos % (Auto) 0.5 % (0.0-4.0); Hematocrit 23.6 % (35.0-46.0); Hemoglobin 7.9 gm/dL (11.6-15.3); Lymph # (Auto) 1.9 th/mm3 (1.0-4.8); Lymph % (Auto) 12.9 % (9.0-44.0); Mean Corpuscular HGB Conc 33.5 % (32.0-36.0); Mean Corpuscular Volume 83.4 fL (80.0-100.0); Mean Platelet Volume 8.1 fL (7.0-11.0); Mono # (Auto) 0.9 th/mm3 (0.0-0.9); Mono % (Auto) 6.3 % (0.0-8.0); Neut # (Auto) 12.1 th/mm3 (1.8-7.7); Neut % (Auto) 80.1 % (16.0-70.0); Platelet Count 91 th/mm3 (150-450); Red Blood Count 2.83 mil/mm3 (4.00-5.30); Red Cell Distribution Width 16.7 % (11.6-17.2); White Blood Count 15.1 th/mm3 (4.0-11.0)
[2017-11-14 11:16] LABS: Alanine Aminotransferase 22 U/L (10-53); Albumin 0.9 g/dL (3.4-5.0); Anion Gap 9 meq/L (5-15); Aspartate Aminotransferase 26 U/L (15-37); Blood Urea Nitrogen 26 mg/dL (7-18); Calcium 8.1 mg/dL (8.5-10.1); Carbon Dioxide 18.9 meq/L (21.0-32.0); Chloride 116 meq/L (98-107); Glomerular Filtration Rate 36 mL/min (>89); Glucose,Random 89 mg/dL (74-106); Potassium 4.5 meq/L (3.5-5.1); Sodium 144 meq/L (136-145)
[2017-11-14] MEDS: dilTIAZem 60 MG Tablet PO SCH (11:19)
[2017-11-14] MEDS: Duloxetine 60 MG DR Capsule PO SCH (11:20)
[2017-11-14] MEDS: Hypromellose 0.3% Opth Gel 10 GM Bottle EACH EYE SCH ×2 (11:20→20:58)
[2017-11-14] MEDS: Folic Acid 1 MG Tablet PO SCH (11:20)
[2017-11-14] MEDS: Pantoprazole Inj 40 MG Vial IV.PUSH SCH (11:21)
[2017-11-14] MEDS: Lactobacillus Acidophilus/L. Spores Tablet PO SCH ×2 (11:21→20:58)
[2017-11-14 11:23] LABS: Alkaline Phosphatase 161 U/L (45-117); Total Protein 4.6 g/dL (6.4-8.2)
[2017-11-14] MEDS: Heparin Central Flush 100 UNIT/ML 5 ML Vial IV.FLUSH SCH ×2 (11:40)
[2017-11-14 11:42] LABS: Eosinophils 2 % (0-4); Lymphocytes 15 % (9-44); Monocytes 3 % (0-8); Platelet Morphology Normal (Normal); Spherocytes Occ; Tallied Nucleated RBC 3 (0-0); Target Cells 1+; Toxic Vacuolation Present
--- NOTE | 2017-11-14 11:57 | P.PNID ---
Subjective Remarks: ID coverage. 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 Post op it appears she was discharged to a rehab. She was discharged from the rehab to home with her on August 23. Patient reports she lives at home with her who is on disability. Unsure of nature of disability at this time and his ability to take care of her. She was reportedly able to ambulate on her own initially followed by weakness and need for walker and then to a point where she did not want to get out of bed. It has been reported to others that she had some discharge at the left surgical site area and ortho surgeon prescribed oral keflex which reportedly lead to some improvement. She reportedly completed a week of antibiotic treatment with last day scheduled for today with some improvement in her knee pain. However her stated that she was starting to have more drainage from her knee just over the past day or so. He had pointed to several areas that had been draining pus from just above and just below the knee. He stated that a cup full of pus would drain at a time. Additionally the abdominal fold wounds appear to have been present for atleast 3 weeks now. With this background patient presented to the ED with complaints of worsening shortness of breath and mental status accompanied with symptoms of diarrhea (3 days, non-bloody) and decreased p.o. intake (5 days). She was also brought into the hospital due to infection of her knee that improved with Keflex p.o but now has returned with new additional drainage over the past few days. ID consulted for evaluation and Mment of Left knee prosthetic joint infection and neutropenia. Patient underwent incision and debridement of the inferior abdominal wall and proximal inner thighs on 10/12/2017. Since then she has had multiple surgeries done, last one done 11/01, closure of wounds Receiving IV antibiotics for left knee infection/C difficile. CT scan showed small joint effusion and subcutaneous edema of the fat at the left knee. Notes reviewed D/W RN Patient intubated late last night Febrile yesterday, hypothermic this morning BP ok On the vent No stool WBC normal now Creatinine rising Cultures reviewed Antibiotics: Meropenem Levaquin Zyvox Micafungin PO Vancomycin Lines: PICC Lines ok. Past Medical History: reviewed Allergies/Adverse Reactions: Allergies amoxicillin Allergy (Verified 09/27/17 17:54) Swelling Objective Vital Signs 11/13/17 12:00 11/13/17 12:15 11/13/17 12:30 Temperature 90.1 F L 90.3 F L 90.7 F L Pulse Rate 87 84 88 Respiratory Rate 24 27 H 26 H Blood Pressure 96/52 L 90/52 L 88/53 L Pulse Oximetry 100 100 100 11/13/17 12:45 11/13/17 13:00 11/13/17 13:13 Temperature 90.9 F L 91.0 F L 91.4 F L Pulse Rate 88 87 87 Respiratory Rate 22 23 26 H Blood Pressure 90/53 L 84/45 L 80/47 L Pulse Oximetry 100 100 100 11/13/17 13:15 11/13/17 13:20 11/13/17 13:30 Temperature 91.4 F L 91.4 F L 91.8 F L Pulse Rate 87 87 93 H Respiratory Rate 27 H 22 26 H Blood Pressure 79/48 L 83/53 L 88/56 L Pulse Oximetry 100 100 100 11/13/17 13:45 11/13/17 14:00 11/13/17 14:15 Temperature 91.8 F L 92.1 F L 92.3 F L Pulse Rate 88 85 85 Respiratory Rate 23 20 20 Blood Pressure 98/54 L 85/48 L 82/53 L Pulse Oximetry 100 100 100 11/13/17 14:30 11/13/17 14:46 11/13/17 15:01 Temperature 92.5 F L 92.7 F L 92.8 F L Pulse Rate 91 H 78 94 H Respiratory Rate 27 H 25 H 20 Blood Pressure 119/56 L 201/88 H 94/51 L Pulse Oximetry 100 100 100 11/13/17 15:15 11/13/17 15:29 11/13/17 15:30 Temperature 93.0 F L 93.4 F L Pulse Rate 94 H 91 H Respiratory Rate 26 H 25 H 26 H Blood Pressure 79/43 L 75/45 L Pulse Oximetry 100 100 100 11/13/17 15:35 11/13/17 15:45 11/13/17 15:55 Temperature 93.4 F L 93.6 F L 93.6 F L Pulse Rate 94 H 91 H 89 Respiratory Rate 21 27 H 22 Blood Pressure 82/50 L 77/47 L 75/43 L Pulse Oximetry 100 100 100 11/13/17 16:00 11/13/17 16:02 11/13/17 16:15 Temperature 93.7 F L 93.7 F L 93.9 F L Pulse Rate 91 H 100 H 90 Respiratory Rate 23 22 26 H Blood Pressure 75/45 L 92/53 L 77/43 L Pulse Oximetry 100 100 100 11/13/17 16:30 11/13/17 16:45 11/13/17 17:00 Temperature 93.9 F L 94.1 F L 94.1 F L Pulse Rate 69 100 H 101 H Respiratory Rate 31 H 18 21 Blood Pressure 93/52 L 96/52 L 88/52 L Pulse Oximetry 100 100 100 11/13/17 20:00 11/13/17 20:48 11/14/17 00:00 Temperature 93.4 F L 97.2 F L Pulse Rate 108 H 97 H Respiratory Rate 27 H 24 25 H Blood Pressure 107/55 L 107/52 L Pulse Oximetry 99 100 100 11/14/17 01:36 11/14/17 03:56 11/14/17 04:00 Temperature 99.1 F Pulse Rate 107 H 109 H Respiratory Rate 18 22 Blood Pressure 87/52 L Pulse Oximetry 100 100 11/14/17 04:39 11/14/17 09:04 Temperature Pulse Rate Respiratory Rate 22 31 H Blood Pressure Pulse Oximetry 99 100 Intake & Output 11/13/17 11/14/17 11/14/17 18:59 06:59 18:59 Intake Total 1147 / 1147 1284 / 1284 2104 / 2104 Output Total 1600 / 1600 125 / 125 780 / 780 Balance -453 / -453 1159 / 1159 1324 / 1324 Weight 113.4 kg Intake: IV 615 / 615 500 / 500 Zyvox 600 mg Premix 300 ML @ 300 / 300 300 / 300 300 mls/hr IV.SIG Q12H [facility] Rx#: [id number] Magnesium Sulfate 1 gm/D5W 100 100 / 100 ml Premix 100 ML @ 100 mls/hr IV.SIG Q1H [facility] Rx#:[id number] Merrem Inj 1,000 MG In NS Inj 100 / 100 200 / 200 100 ML @ 200 mls/hr IV.SIG Q8H [facility] Rx#:[id number] KCl Inj 30 MEQ In NS Inj 100 ML 115 / 115 @ 38.333 mls/hr IV.SIG Q3H [facility] Rx#:[id number] Oral 0 / 0 0 / 0 0 / 0 Oral Supplement 0 / 0 Tube Feeding 412 / 412 784 / 784 784 / 784 Tube Irrigant 120 / 120 120 / 120 Other 1200 / 1200 Output: Urine 125 / 125 125 / 125 Stool 500 / 500 500 / 500 Urine/Stool Mix 0 / 0 0 / 0 0 / 0 Estimated Blood Loss 30 / 30 Urine Amount (Catheter) 1100 / 1100 125 / 125 Indwelling Urethral Catheter 1100 / 1100 125 / 125 Wound Drainage 0 / 0 ZAMZAM Drain 0 / 0 Other: Other Intake Source Saline Solution # Voids 1 # Incontinent Voids 1 Date of Last Bowel Movement 11/13/17 11/13/17 11/13/17 # Bowel Movements 0 0 0 # Incontinent Bowel Movements 0 0 0 # Emeses 1 11/12/17 12:20 Blood - Peripheral Aerobic Blood Culture - Preliminary No growth in 2 days 11/12/17 12:20 Blood - Peripheral Anaerobic Blood Culture - Preliminary No growth in 2 days 11/12/17 12:25 Blood - Peripheral Aerobic Blood Culture - Preliminary No growth in 2 days 11/12/17 12:25 Blood - Peripheral Anaerobic Blood Culture - Preliminary No growth in 2 days 11/13/17 12:30 Sputum - Endotracheal Gram Stain - Final 11/13/17 12:30 Sputum - Endotracheal Sputum Culture - Pending 10/09/17 15:49 Tissue - Abdominal Acid Fast Bacilli Smear - Final No acid fast bacilli seen 10/09/17 15:49 Tissue - Abdominal Mycobacterial Culture - Preliminary No growth in 5 weeks 11/01/17 17:45 Wound - Abdominal Fungal Smear - Final No fungal elements seen 11/01/17 17:45 Wound - Abdominal Fungal Culture - Preliminary Susy glabrata 11/01/17 17:45 Wound - Abdominal Acid Fast Bacilli Smear - Final No acid fast bacilli seen 11/01/17 17:45 Wound - Abdominal Mycobacterial Culture - Preliminary No growth in 1 week 11/08/17 09:40 Blood - Other Aerobic Blood Culture - Final No growth in 5 days 11/08/17 09:40 Blood - Other Anaerobic Blood Culture - Final No growth in 5 days 11/08/17 06:50 Blood - Other Aerobic Blood Culture - Final No growth in 5 days 11/08/17 06:50 Blood - Other Anaerobic Blood Culture - Final No growth in 5 days Lab - Hematology Results 11/13/17 11/14/17 04:26 10:37 WBC 9.7 15.1 H RBC 2.68 L 2.83 L Hgb 7.8 L 7.9 L Hct 22.7 L 23.6 L MCV 84.7 83.4 MCH 29.0 28.0 MCHC 34.3 33.5 RDW 16.8 16.7 Plt Count 60 L D 91 L D MPV 7.4 8.1 Prelim Diff (Auto) Slide review pending Slide review pending Neut % (Auto) 86.5 H 80.1 H Lymph % (Auto) 8.6 L 12.9 [place] % (Auto) 3.8 6.3 Eos % (Auto) 0.9 0.5 Baso % (Auto) 0.2 0.2 Neut # (Auto) 8.4 H 12.1 H Lymph # (Auto) 0.8 L 1.9 [place] # (Auto) 0.4 0.9 Eos # (Auto) 0.1 0.1 Baso # (Auto) 0.0 0.0 WBC Differential Manual diff final Manual diff final Seg Neuts % (Manual) 51 67 Band Neuts % (Manual) 39 H 13 H Lymphocytes % (Manual) 5 L 15 Monocytes % (Manual) 3 Eosinophils % (Manual) 1 2 Basophils % (Manual) 1 Metamyelocytes % (Man) 2 H Myelocytes % (Man) 1 H Abs Neuts (Manual) 9.0 H 12.1 H Nucleated RBCs/100 WBC 1 H 3 H Differential Comment . . Toxic Granulation 1+ H Toxic Vacuolation Present H Present H Platelet Estimate Low L Low L Platelet Morphology Enlarged H Normal Spherocytes Occ H Target Cells 1+ H Lab - Chemistry Results 11/12/17 11/12/17 11/13/17 11:41 16:07 04:26 Sodium 146 H Potassium 2.8 L* Chloride 116 H Carbon Dioxide 17.8 L Anion Gap 12 BUN 19 H Creatinine 1.49 H Estimated GFR 44 L POC Glucose 149 H 124 H Random Glucose 231 H D Lactic Acid Calcium 7.8 L Phosphorus 1.9 L Magnesium 1.4 L Total Bilirubin 0.2 AST 17 ALT 21 Alkaline Phosphatase 135 H Ammonia Total Protein 4.2 L Albumin 0.8 L Triglycerides 143 Cholesterol Less than 50 L LDL Cholesterol, Calc 9 HDL Cholesterol 12.5 L Cholesterol/HDL Ratio 4.00 Lipase 24 L 11/13/17 11/13/17 11/13/17 04:26 04:26 07:22 Sodium Potassium Chloride Carbon Dioxide Anion Gap BUN Creatinine Estimated GFR POC Glucose 262 H Random Glucose Lactic Acid 3.0 H Calcium Phosphorus Magnesium Total Bilirubin AST ALT Alkaline Phosphatase Ammonia Less than 10 L Total Protein Albumin Triglycerides Cholesterol LDL Cholesterol, Calc HDL Cholesterol Cholesterol/HDL Ratio Lipase 11/13/17 11/13/17 11/13/17 08:03 11:32 13:52 Sodium 147 H Potassium 3.2 L Chloride 118 H Carbon Dioxide 16.7 L Anion Gap 12 BUN 19 H Creatinine 1.46 H Estimated GFR 45 L POC Glucose 248 H 248 H Random Glucose 183 H Lactic Acid Calcium 7.9 L Phosphorus Magnesium Total Bilirubin 0.2 AST 16 ALT 19 Alkaline Phosphatase 134 H Ammonia Total Protein 4.1 L Albumin 0.8 L Triglycerides Cholesterol LDL Cholesterol, Calc HDL Cholesterol Cholesterol/HDL Ratio Lipase 11/13/17 11/14/17 11/14/17 16:19 02:45 05:27 Sodium Potassium Chloride Carbon Dioxide Anion Gap BUN Creatinine Estimated GFR POC Glucose 132 H 96 113 H Random Glucose Lactic Acid Calcium Phosphorus Magnesium Total Bilirubin AST ALT Alkaline Phosphatase Ammonia Total Protein Albumin Triglycerides Cholesterol LDL Cholesterol, Calc HDL Cholesterol Cholesterol/HDL Ratio Lipase 11/14/17 11/14/17 08:36 10:37 Sodium 144 Potassium 4.5 D Chloride 116 H Carbon Dioxide 18.9 L Anion Gap 9 BUN 26 H Creatinine 1.79 H Estimated GFR 36 L POC Glucose 106 Random Glucose 89 Lactic Acid Calcium 8.1 L Phosphorus Magnesium Total Bilirubin 0.2 AST 26 ALT 22 Alkaline Phosphatase 161 H Ammonia Total Protein 4.6 L Albumin 0.9 L Triglycerides Cholesterol LDL Cholesterol, Calc HDL Cholesterol Cholesterol/HDL Ratio Lipase Imaging: ITS Impressions Tibia/Fibula X-Ray 09/27/17 00:00 CONCLUSION: No acute left leg abnormality is identified. Abdomen/Pelvis CT 09/27/17 08:10 CONCLUSION: 1. Mild hepatic steatosis. 2. Thickening of the colon secondary to lack of distention versus colitis. 3. Left lower lobe consolidation and/or atelectasis. There does appear to be a 1.4 cm cavitary area which makes consolidation likely. Chest CTA 09/27/17 08:22 CONCLUSION: 1. No pulmonary embolus. 2. Consolidation or atelectasis at the left lower lobe. Knee CT 10/18/17 00:00 CONCLUSION: 1. Small joint effusion. 2. Nonspecific subcutaneous edema in the subcutaneous soft tissues above and below the knee. 3. No significant changes compared to the prior exam. Ankle X-Ray 10/19/17 00:00 CONCLUSION: 1. No acute fracture or dislocation. Knee X-Ray 10/19/17 00:00 CONCLUSION: 1. Total knee prosthesis in place. 2. Moderate-sized knee joint effusion. Head CT 11/10/17 00:00 CONCLUSION: 1. Interval enlargement of the ventricular system of uncertain etiology. There is no clear evidence of an obstructing process. 2. Otherwise stable evaluation without evidence of acute infarct, hemorrhage, mass or edema. . Venous Doppler Study 11/10/17 00:00 CONCLUSION: 1. No venous thrombosis is identified within either lower extremity. 2. As described above, secondary to open wounds, the left external iliac, common femoral vein, and greater saphenous veins were not adequately evaluated. Head MRI 11/11/17 00:00 CONCLUSION: 1. Motion artifact is present throughout the scan. 2. Examination is diagnostic. 3. No evidence of acute infarct, hemorrhage, mass or edema. PICC Line Insertion 11/11/17 08:51 CONCLUSION: 1. Uncomplicated central venous Power PICC line placement. 2. The PICC line can be used immediately. Chest X-Ray 11/12/17 00:00 CONCLUSION: 1. Interim intubation. Endotracheal tube tip is at the [place]. 2. Small effusion and mild consolidation developing right base. 3. Mild left base consolidation not significantly changed. 4. No change left arm PICC, tip in the superior vena cava. Physical Exam: GENERAL: Awake, focusing, on the vent, NAD. Has warming blanket HEENT: Pupils reactive to light. Extraocular movements intact. No icterus. Orally intubated NECK: Supple without adenopathy. No swelling. LUNGS: Decreased breath sounds. HEART: Regular S1 and S2. ABDOMEN: Obese, soft. Nontender. Groin and abdominal area with sutures in place and dressing with some weeping of serous discharge noted.Tunneling noted in the center of the abdomen. There is a large open wound in medial upper L thigh, no purulence EXTREMITIES: swelling of the left knee. less warmth. Tiny hole a couple millimeters at the lower aspect of the knee surgical incision. SKIN: No diffuse rash. NEUROLOGIC: Awake focusing PSYCH: Unable to assess LINE: No evidence of infection Assessment and Plan - Plan IMPRESSION: Neutropenic sepsis WBC now elevated. Receive Neupogen but the white blood cell count did not plateau is continuing to rise. Possibly secondary to infection. Leucopenia, pancytopenia: ? MTX, ? Psych meds, ? Sepsis contributing. Abdominal fold cellulitis/skin breakdown. Post incision and debridement and closure of skin fold. General surgery following. She dispose any panniculectomy. Groin cellulitis, Mons pubis cellulitis/skin breakdown. Neurosurgery following. H/o fall with scraping of left knee. Left knee hardware in place. CT with fluid collection. Left knee infection - prior wound culture had Pseudomonas and group B beta strep. VRE now. Diarrhea - Positive C. difficile. Acute renal failure; prerenal vs meds Thrombocytopenia: ? meds ? Cefepime has been on it few weeks. Respiratory failure, likely aspiration PNA RECOMMENDATIONS: Follow new C/S Continue Zyvox for MRSA and VRE coverage Continue Meropenem for broader GNR coverage Continue Micafungin Continue po Vanco for C diff. Continue Levaquin Monitor progress D/W RN
[2017-11-14] MEDS: fentaNYL 10 mcg/mL Premix Drip 2,500 MCG/250 ML BAG IV.SIG PRN (13:24)
--- NOTE | 2017-11-14 13:37 | P.PNCC ---
Subjective Subjective Remarks/Hospital Course: his is a 52-year-old female with a very complex medical history who was admitted back in September 2017 for postoperative wound infection from her total knee arthroplasty. Her course has been complicated by multiple necrotizing soft tissue infections. She additionally has failure to thrive and severe acute protein calorie malnutrition for which she has been on total parenteral nutrition. She intermittently becomes agitated and pulls out her IV access. Today she was on the floor when she became worsening the febrile and altered. She pulled out her own PICC line overnight, and nursing staff was unable to reobtain IV access. Because she was off TPN she became quite hypoglycemic which was refractory to non-intravenous methods of glucose administration. Urgently a new PICC line was placed by interventional radiology and she was given IV dextrose. When her glucose improved, her mental status improved as well. She is transferred to the ICU for management of worsening recurrent sepsis, worsening wound infection, and hypoglycemia. When I evaluated the patient, she was more awake, nonfocal, moving all extremities. She endorses fatigue, but denies other symptoms. She specifically denies chest pain, shortness of breath, fever, chills, nausea, vomiting, abdominal pain. She does endorse diarrhea and has a rectal tube in place. She has a recent history of active C. difficile infection. Remainder of the review systems is negative unless otherwise stated. SUBJ 11/12: Lying in bed no acute distress intermittently confused but follows commands, pleasant. WBC count stable at 11.7. On TPN hypoglycemia has resolved. Discussed with Dr. Schneider 11/13: Intubated and placed on mechanical ventilation yesterday evening for desaturation and lack of airway protection. Creatinine has increased to 1.5 potassium is 2.8 getting replaced. On light sedation patient does follow commands. Antibiotics have been broadened to Zyvox meropenem and Levaquin and micafungin. Continue p.o. vancomycin for C Diff 11/14: Patient intubated sedated with propofol. Wakes up follows some commands but did not tolerate CPAP due to tachypnea. WBC count worsening currently 15.1. Also worsening creatinine 1.8. Some evidence of worsening wound infection in the lower abdomen pelvic region. Lower abdominal and left thigh incisions with increasing drainage Objective Vital Signs / I&O: Vital Signs 11/13/17 13:30 11/13/17 13:45 11/13/17 14:00 Temperature 91.8 F L 91.8 F L 92.1 F L Pulse Rate 93 H 88 85 Respiratory Rate 26 H 23 20 Blood Pressure 88/56 L 98/54 L 85/48 L Pulse Oximetry 100 100 100 11/13/17 14:15 11/13/17 14:30 11/13/17 14:46 Temperature 92.3 F L 92.5 F L 92.7 F L Pulse Rate 85 91 H 78 Respiratory Rate 20 27 H 25 H Blood Pressure 82/53 L 119/56 L 201/88 H Pulse Oximetry 100 100 100 11/13/17 15:01 11/13/17 15:15 11/13/17 15:29 Temperature 92.8 F L 93.0 F L Pulse Rate 94 H 94 H Respiratory Rate 20 26 H 25 H Blood Pressure 94/51 L 79/43 L Pulse Oximetry 100 100 100 11/13/17 15:30 11/13/17 15:35 11/13/17 15:45 Temperature 93.4 F L 93.4 F L 93.6 F L Pulse Rate 91 H 94 H 91 H Respiratory Rate 26 H 21 27 H Blood Pressure 75/45 L 82/50 L 77/47 L Pulse Oximetry 100 100 100 11/13/17 15:55 11/13/17 16:00 11/13/17 16:02 Temperature 93.6 F L 93.7 F L 93.7 F L Pulse Rate 89 91 H 100 H Respiratory Rate 22 23 22 Blood Pressure 75/43 L 75/45 L 92/53 L Pulse Oximetry 100 100 100 11/13/17 16:15 11/13/17 16:30 11/13/17 16:45 Temperature 93.9 F L 93.9 F L 94.1 F L Pulse Rate 90 69 100 H Respiratory Rate 26 H 31 H 18 Blood Pressure 77/43 L 93/52 L 96/52 L Pulse Oximetry 100 100 100 11/13/17 17:00 11/13/17 20:00 11/13/17 20:48 Temperature 94.1 F L 93.4 F L Pulse Rate 101 H 108 H Respiratory Rate 21 27 H 24 Blood Pressure 88/52 L 107/55 L Pulse Oximetry 100 99 100 11/14/17 00:00 11/14/17 00:30 11/14/17 00:46 Temperature 97.2 F L 96.8 F L 97.0 F L Pulse Rate 97 H 99 H 101 H Respiratory Rate 25 H 25 H 24 Blood Pressure 107/52 L 112/50 L 93/53 L Pulse Oximetry 100 100 100 11/14/17 01:01 11/14/17 01:16 11/14/17 01:31 Temperature 97.2 F L 97.5 F L 97.5 F L Pulse Rate 73 100 H 98 H Respiratory Rate 34 H 20 24 Blood Pressure 162/92 H 112/70 86/48 L Pulse Oximetry 100 99 100 11/14/17 01:36 11/14/17 01:45 11/14/17 02:00 Temperature 97.7 F 97.9 F Pulse Rate 107 H 104 H Respiratory Rate 18 24 23 Blood Pressure 90/52 L 83/46 L Pulse Oximetry 100 100 99 11/14/17 02:16 11/14/17 02:30 11/14/17 02:33 Temperature 98.1 F 98.1 F 98.2 F Pulse Rate 107 H 104 H 111 H Respiratory Rate 25 H 23 24 Blood Pressure 102/51 L 79/47 L 82/50 L Pulse Oximetry 99 99 99 11/14/17 02:42 11/14/17 02:45 11/14/17 03:00 Temperature 98.2 F 98.2 F 98.4 F Pulse Rate 106 H 113 H 107 H Respiratory Rate 25 H 27 H 23 Blood Pressure 81/48 L 88/53 L 81/45 L Pulse Oximetry 99 86 L 100 11/14/17 03:03 11/14/17 03:56 11/14/17 04:00 Temperature 98.4 F 98.8 F Pulse Rate 109 H 107 H 109 H Respiratory Rate 35 H 22 Blood Pressure 92/54 L 87/52 L Pulse Oximetry 100 100 11/14/17 04:39 11/14/17 05:00 11/14/17 06:00 Temperature 99.3 F 99.5 F Pulse Rate 111 H 111 H Respiratory Rate 22 21 23 Blood Pressure 92/54 L 85/48 L Pulse Oximetry 99 99 99 11/14/17 07:00 11/14/17 08:00 11/14/17 09:00 Temperature 99.9 F H 99.5 F 98.2 F Pulse Rate 113 H 116 H 124 H Respiratory Rate 21 22 31 H Blood Pressure 94/51 L 93/49 L 150/70 H Pulse Oximetry 99 100 11/14/17 09:04 11/14/17 10:00 11/14/17 10:01 Temperature 98.2 F 98.2 F Pulse Rate 116 H 110 H Respiratory Rate 31 H 31 H 28 H Blood Pressure 121/55 L Pulse Oximetry 100 95 11/14/17 11:01 11/14/17 11:10 11/14/17 12:00 Temperature 97.7 F 95.5 F L 96.6 F L Pulse Rate 106 H 110 H 113 H Respiratory Rate 30 H 25 H 26 H Blood Pressure 135/106 H 105/53 L Pulse Oximetry 100 100 11/14/17 12:01 11/14/17 13:06 Temperature 96.6 F L Pulse Rate 105 H Respiratory Rate 22 25 H Blood Pressure 139/64 Pulse Oximetry 100 100 Intake & Output 11/13/17 11/14/17 11/14/17 18:59 06:59 18:59 Intake Total 1247 / 1247 1284 / 1284 2104 / 2104 Output Total 1600 / 1600 125 / 125 780 / 780 Balance -353 / -353 1159 / 1159 1324 / 1324 Weight 113.4 kg Intake: IV 715 / 715 500 / 500 Zyvox 600 mg Premix 300 ML @ 300 / 300 300 / 300 300 mls/hr IV.SIG Q12H [facility] Rx#: [id number] Magnesium Sulfate 1 gm/D5W 100 100 / 100 ml Premix 100 ML @ 100 mls/hr IV.SIG Q1H [facility] Rx#:[id number] Merrem Inj 1,000 MG In NS Inj 100 / 100 200 / 200 100 ML @ 200 mls/hr IV.SIG Q8H [facility] Rx#:[id number] Mycamine Inj 100 MG In NS Inj 100 / 100 100 ML @ 100 mls/hr IV.SIG Q24H [facility] Rx#:[id number] KCl Inj 30 MEQ In NS Inj 100 ML 115 / 115 @ 38.333 mls/hr IV.SIG Q3H [facility] Rx#:[id number] Oral 0 / 0 0 / 0 0 / 0 Oral Supplement 0 / 0 Tube Feeding 412 / 412 784 / 784 784 / 784 Tube Irrigant 120 / 120 120 / 120 Other 1200 / 1200 Output: Urine 125 / 125 125 / 125 Stool 500 / 500 500 / 500 Urine/Stool Mix 0 / 0 0 / 0 0 / 0 Estimated Blood Loss 30 / 30 Urine Amount (Catheter) 1100 / 1100 125 / 125 Indwelling Urethral Catheter 1100 / 1100 125 / 125 Wound Drainage 0 / 0 ZAMZAM Drain 0 / 0 Other: Other Intake Source Saline Solution # Voids 1 # Incontinent Voids 1 Date of Last Bowel Movement 11/13/17 11/13/17 11/13/17 # Bowel Movements 0 0 0 # Incontinent Bowel Movements 0 0 0 # Emeses 1 Result Diagrams: 11/14/17 10:37 11/14/17 10:37 Objective Remarks: GENERAL: Morbidly obese -[place] female, intubated sedated HEENT: Normocephalic. Atraumatic. Pupils equal, round, reactive, conjugate. NECK: Trachea is midline. There is no JVD. CHEST: Equal chest rise. Orotracheally intubated. Becomes tachypneic on CPAP trial CARDIOVASCULAR: Tachycardic rate . Regular rhythm. Sinus. ABDOMEN: Morbidly obese, soft. No guarding. In the lower abdominal area has open wound which is quite complex and has closed and stapled areas in the lower midline of the abdomen, and then a transverse area in the suprapubic region which is mostly opened down to the subcutaneous fat. This area has cloudy drainage now. In addition the wound extends nearly over the right anterior hip region which also appears to be open and draining purulent drainage down into the subcutaneous fat. There are also areas down into the left anterior hip/ thigh area also draining purulence. MUSCULOSKELETAL: Pulses 2+. Gross anasarca. NEUROLOGICAL: Intubated sedated, on lightening sedation patient does wake up in follow basic commands. Becomes very tachypneic on on lightening sedation Assessment and Plan - Assessment and Plan Plan: Assessment: 52-year-old female with an extensive recent medical history including multiple wound infections and severe acute protein calorie malnutrition who presents with recurrent severe sepsis and wound infection. In terms of her altered mental status, I think this is secondary to hypoglycemia which is certainly secondary to her lack of TPN because she pulled out her PICC line. Now that her glycemic control is improved, her mental status is back to baseline, and I do not see any concerning neuro symptoms that would suggest a stroke, seizure or any other neurologic finding. MRI negative for acute stoke. Wound has increasing cloudy drainage. She also appears quite intravascularly dry, but her anasarca suggest that she has significant protein malnutrition as well as total body hypervolemia. Concentrated albumin for resuscitation to restore her intravascular volume. Multiple organs have chronically failed. I agree with palliative care consult as despite her young age, her overall 1 year mortality rate is very high given that she has had almost no improvement at all in considerable worsening of her overall function and medical history while inpatient over the last few months. Active problems: Severe Sepsis Acute hypoxemic respiratory failure Metabolic encephalopathy Sinus tachycardia Worsening deep tissue wound infection Severe hypoglycemia Metabolic encephalopathyresolving Recommendations: The patient sedation with propofol and use fentanyl gtt for pain control Check sputum culture -no growth to date Concentrated albumin for IV resuscitation Continue IV antibiotics, Zyvox meropenem and Levaquin and micafungin. Continue p.o. vancomycin for C Diff Continue TPN. Advance tube feeds off TPN since 11/14/17 Lower abdomen and perineal wound infections general surgery and ID following Frequent glycemic checks, D50 for hypoglycemia Frequent neurochecks Sinus tachycardia is likely compensatory mechanism and from Sirs response Overall prognosis appears poor with multiple comorbidities debility, sepsis from infected wounds are now with inability to protect airway and hypoxemic respiratory failure CCT 35 MIN Patient is critically ill but stable hemodynamically. If okay with general surgery and infectious diseases I am okay with transfer to long-term acute care facility. Defer this decision to the primary service which his family practice
[2017-11-14] MEDS: Propofol 1000 mg/100 ml Inj 1,000 MG/100 ML BOTTLE IV.CONT PRN (16:55)
[2017-11-14] MEDS: Mirtazapine 15 MG Tablet PO SCH (20:58)
[2017-11-14] MEDS: traZODone 100 MG Tablet PO SCH (20:58)
[2017-11-15] MEDS: Insulin NovoLOG Aspart Correctional Sugar Inj SQ SCH ×5 (00:30→23:25)
[2017-11-15] MEDS: Oral Hygiene Kit OROPHARYNG SCH ×5 (00:31→23:25)
--- NOTE | 2017-11-15 02:12 | XR ---
EXAM DATE: 11/15/2017 2:00 AM EDT AGE/SEX: 52 years / Female INDICATIONS: Shortness of breath, possible pulmonary disease. CLINICAL DATA: This is the patient's subsequent encounter. Patient reports that signs and symptoms h ave been present for 1 week and indicates a pain score of Nonresponsive. MEDICAL/SURGICAL HISTORY: Sepsis. Anemia. Fusion, cervical. COMPARISON: [facility], CHEST 1V SINGLE AP, 11/12/2017. . FINDINGS: Mild bibasilar consolidation noted, improved on the right, slightly worse on the left. No large effus ion seen. No pneumothorax. Heart size stable, within normal limits. Endotracheal tube tip is approximately 5.5 cm above the shaka. There is a nasogastric tube with tip in the lower esophagus. Left arm with tip in the superior vena cava again noted. CONCLUSION: Mild bibasilar consolidation, improved on the right and slightly worse on the left. Lines and tubes a s above. Electronically signed by: Thor Jaimes MD 11/15/2017 2:11 AM EDT
[2017-11-15] MEDS: fentaNYL 10 mcg/mL Premix Drip 2,500 MCG/250 ML BAG IV.SIG PRN ×2 (05:41→21:27)
[2017-11-15 05:44] LABS: Hematocrit 22.1 % (35.0-46.0); Hemoglobin 7.7 gm/dL (11.6-15.3); Mean Corpuscular HGB Conc 34.8 % (32.0-36.0); Mean Corpuscular Hemoglobin 29.4 pg (27.0-34.0); Mean Corpuscular Volume 84.6 fL (80.0-100.0); Mean Platelet Volume 7.7 fL (7.0-11.0); Platelet Count 78 th/mm3 (150-450); Red Blood Count 2.61 mil/mm3 (4.00-5.30); Red Cell Distribution Width 17.4 % (11.6-17.2); White Blood Count 15.7 th/mm3 (4.0-11.0)
[2017-11-15 06:14] LABS: Alanine Aminotransferase 23 U/L (10-53); Albumin 0.8 g/dL (3.4-5.0); Anion Gap 7 meq/L (5-15); Aspartate Aminotransferase 35 U/L (15-37); Blood Urea Nitrogen 31 mg/dL (7-18); Calcium 7.8 mg/dL (8.5-10.1); Carbon Dioxide 19.9 meq/L (21.0-32.0); Chloride 113 meq/L (98-107); Glomerular Filtration Rate 34 mL/min (>89); Glucose,Random 95 mg/dL (74-106); Potassium 4.1 meq/L (3.5-5.1); Sodium 140 meq/L (136-145)
[2017-11-15 06:17] LABS: Alkaline Phosphatase 173 U/L (45-117); Total Protein 4.4 g/dL (6.4-8.2)
[2017-11-15] MEDS: Lactobacillus Acidophilus/L. Spores Tablet PO SCH ×2 (09:09→21:24)
[2017-11-15] MEDS: Hypromellose 0.3% Opth Gel 10 GM Bottle EACH EYE SCH ×2 (09:09→21:23)
[2017-11-15] MEDS: Duloxetine 60 MG DR Capsule PO SCH (09:09)
[2017-11-15] MEDS: Folic Acid 1 MG Tablet PO SCH (09:09)
[2017-11-15] MEDS: Pantoprazole Inj 40 MG Vial IV.PUSH SCH (09:10)
[2017-11-15] MEDS: Chlorhexidine 0.12% Oral Kit 15 ML UDC OROPHARYNG SCH ×2 (09:10→21:22)
--- NOTE | 2017-11-15 09:47 | P.PNFP ---
Subjective Interval history: Patient seen and examined this morning. No acute events overnight per nursing staff. Patient continues to be intubated as she failed CPAP trial yesterday due to tachypnea. Patient's temperature continues to be decreased with continued thrombocytopenia, leukocytosis, and elevated creatinine. Medical team discussed with consulting physicians and for possible transfer to long-term acute care facility for continued respiratory and wound care. However as her recent sputum culture was less than 48 hours old and patient showing signs of temperature instability with increasing white blood cell count , discharge was held for patient optimization. <Chaz Vivar H - 11/15/17 10:08> Results - Labs Result diagrams: 11/15/17 05:25 11/15/17 05:25 <Maddy Jackson M - 11/15/17 15:45> Abnormal lab results 11/14/17 11/14/17 11/15/17 Range/Units 16:41 23:43 05:25 WBC 15.7 H (4.0-11.0) th/mm3 RBC 2.61 L (4.00-5.30) mil/mm3 Hgb 7.7 L (11.6-15.3) gm/dL Hct 22.1 L (35.0-46.0) % RDW 17.4 H (11.6-17.2) % Plt Count 78 L (150-450) th/mm3 Chloride (98-107) meq/L Carbon Dioxide (21.0-32.0) meq/L BUN (7-18) mg/dL Creatinine (0.50-1.00) mg/dL Estimated GFR (>89) mL/min POC Glucose 154 H 118 H (68-110) mg/dl Calcium (8.5-10.1) mg/dL Alkaline Phosphatase (45-117) U/L Total Protein (6.4-8.2) g/dL Albumin (3.4-5.0) g/dL 11/15/17 Range/Units 05:25 WBC (4.0-11.0) th/mm3 RBC (4.00-5.30) mil/mm3 Hgb (11.6-15.3) gm/dL Hct (35.0-46.0) % RDW (11.6-17.2) % Plt Count (150-450) th/mm3 Chloride 113 H (98-107) meq/L Carbon Dioxide 19.9 L (21.0-32.0) meq/L BUN 31 H (7-18) mg/dL Creatinine 1.89 H (0.50-1.00) mg/dL Estimated GFR 34 L (>89) mL/min POC Glucose (68-110) mg/dl Calcium 7.8 L (8.5-10.1) mg/dL Alkaline Phosphatase 173 H (45-117) U/L Total Protein 4.4 L (6.4-8.2) g/dL Albumin 0.8 L (3.4-5.0) g/dL Short CBC 11/15/17 Range/Units 05:25 WBC 15.7 H (4.0-11.0) th/mm3 Hgb 7.7 L (11.6-15.3) gm/dL Hct 22.1 L (35.0-46.0) % Plt Count 78 L (150-450) th/mm3 BMP 11/15/17 05:25 Sodium 140 Potassium 4.1 Chloride 113 H Carbon Dioxide 19.9 L BUN 31 H Creatinine 1.89 H Calcium 7.8 L Liver Function 11/15/17 Range/Units 05:25 Total Bilirubin 0.3 (0.2-1.0) mg/dL AST 35 (15-37) U/L ALT 23 (10-53) U/L Alkaline Phosphatase 173 H (45-117) U/L Albumin 0.8 L (3.4-5.0) g/dL <RenettaMaddy Parris - 11/15/17 15:45> Abnormal lab results 11/14/17 11/14/17 11/14/17 Range/Units 10:37 10:37 12:46 WBC 15.1 H (4.0-11.0) th/mm3 RBC 2.83 L (4.00-5.30) mil/mm3 Hgb 7.9 L (11.6-15.3) gm/dL Hct 23.6 L (35.0-46.0) % RDW (11.6-17.2) % Plt Count 91 L D (150-450) th/mm3 Neut % (Auto) 80.1 H (16.0-70.0) % Neut # (Auto) 12.1 H (1.8-7.7) th/mm3 Band Neuts % (Manual) 13 H (0-6) % Abs Neuts (Manual) 12.1 H (1.8-7.7) th/mm3 Nucleated RBCs/100 WBC 3 H (0-0) /100 WBC Toxic Vacuolation Present H (None) Platelet Estimate Low L (Normal) Spherocytes Occ H (None) Target Cells 1+ H (None) Chloride 116 H (98-107) meq/L Carbon Dioxide 18.9 L (21.0-32.0) meq/L BUN 26 H (7-18) mg/dL Creatinine 1.79 H (0.50-1.00) mg/dL Estimated GFR 36 L (>89) mL/min POC Glucose 148 H (68-110) mg/dl Calcium 8.1 L (8.5-10.1) mg/dL Alkaline Phosphatase 161 H (45-117) U/L Total Protein 4.6 L (6.4-8.2) g/dL Albumin 0.9 L (3.4-5.0) g/dL 11/14/17 11/14/17 11/15/17 Range/Units 16:41 23:43 05:25 WBC 15.7 H (4.0-11.0) th/mm3 RBC 2.61 L (4.00-5.30) mil/mm3 Hgb 7.7 L (11.6-15.3) gm/dL Hct 22.1 L (35.0-46.0) % RDW 17.4 H (11.6-17.2) % Plt Count 78 L (150-450) th/mm3 Neut % (Auto) (16.0-70.0) % Neut # (Auto) (1.8-7.7) th/mm3 Band Neuts % (Manual) (0-6) % Abs Neuts (Manual) (1.8-7.7) th/mm3 Nucleated RBCs/100 WBC (0-0) /100 WBC Toxic Vacuolation (None) Platelet Estimate (Normal) Spherocytes (None) Target Cells (None) Chloride (98-107) meq/L Carbon Dioxide (21.0-32.0) meq/L BUN (7-18) mg/dL Creatinine (0.50-1.00) mg/dL Estimated GFR (>89) mL/min POC Glucose 154 H 118 H (68-110) mg/dl Calcium (8.5-10.1) mg/dL Alkaline Phosphatase (45-117) U/L Total Protein (6.4-8.2) g/dL Albumin (3.4-5.0) g/dL 11/15/17 Range/Units 05:25 WBC (4.0-11.0) th/mm3 RBC (4.00-5.30) mil/mm3 Hgb (11.6-15.3) gm/dL Hct (35.0-46.0) % RDW (11.6-17.2) % Plt Count (150-450) th/mm3 Neut % (Auto) (16.0-70.0) % Neut # (Auto) (1.8-7.7) th/mm3 Band Neuts % (Manual) (0-6) % Abs Neuts (Manual) (1.8-7.7) th/mm3 Nucleated RBCs/100 WBC (0-0) /100 WBC Toxic Vacuolation (None) Platelet Estimate (Normal) Spherocytes (None) Target Cells (None) Chloride 113 H (98-107) meq/L Carbon Dioxide 19.9 L (21.0-32.0) meq/L BUN 31 H (7-18) mg/dL Creatinine 1.89 H (0.50-1.00) mg/dL Estimated GFR 34 L (>89) mL/min POC Glucose (68-110) mg/dl Calcium 7.8 L (8.5-10.1) mg/dL Alkaline Phosphatase 173 H (45-117) U/L Total Protein 4.4 L (6.4-8.2) g/dL Albumin 0.8 L (3.4-5.0) g/dL Short CBC 11/14/17 11/15/17 Range/Units 10:37 05:25 WBC 15.1 H 15.7 H (4.0-11.0) th/mm3 Hgb 7.9 L 7.7 L (11.6-15.3) gm/dL Hct 23.6 L 22.1 L (35.0-46.0) % Plt Count 91 L D 78 L (150-450) th/mm3 BMP 11/14/17 11/15/17 10:37 05:25 Sodium 144 140 Potassium 4.5 D 4.1 Chloride 116 H 113 H Carbon Dioxide 18.9 L 19.9 L BUN 26 H 31 H Creatinine 1.79 H 1.89 H Calcium 8.1 L 7.8 L Liver Function 11/14/17 11/15/17 Range/Units 10:37 05:25 Total Bilirubin 0.2 0.3 (0.2-1.0) mg/dL AST 26 35 (15-37) U/L ALT 22 23 (10-53) U/L Alkaline Phosphatase 161 H 173 H (45-117) U/L Albumin 0.9 L 0.8 L (3.4-5.0) g/dL <Chaz Vivar H - 11/15/17 09:47> - Imaging Impressions Chest X-Ray 11/15/17 06:00 CONCLUSION: Mild bibasilar consolidation, improved on the right and slightly worse on the left. Lines and tubes as above. <Maddy Jackson - 11/15/17 15:45> Impressions Chest X-Ray 11/15/17 06:00 CONCLUSION: Mild bibasilar consolidation, improved on the right and slightly worse on the left. Lines and tubes as above. <Chaz Vivar - 11/15/17 09:47> Physical Exam Vital signs: Vital Signs 11/14/17 16:00 11/14/17 17:01 11/14/17 19:00 Temperature 95.0 F L 94.6 F L Pulse Rate 105 H 99 H Respiratory Rate 34 H 15 16 Blood Pressure 170/81 H 115/58 L Pulse Oximetry 98 100 98 11/14/17 20:00 11/14/17 23:00 11/15/17 00:00 Temperature 94.1 F L 94 F L Pulse Rate 88 94 H Respiratory Rate 15 12 13 Blood Pressure 100/57 L 97/55 L Pulse Oximetry 100 96 97 11/15/17 04:00 11/15/17 07:37 11/15/17 08:00 Temperature 94.1 F L 94.1 F L Pulse Rate 94 H 94 H Respiratory Rate 16 19 18 Blood Pressure 102/58 L 103/66 Pulse Oximetry 99 100 100 11/15/17 10:00 11/15/17 12:00 08/30/18 12:47 Temperature 96.6 F L Pulse Rate 96 H 99 H Respiratory Rate 16 Blood Pressure 92/54 L Pulse Oximetry 99 99 Intake & Output 11/14/17 11/15/17 11/15/17 18:59 06:59 18:59 Intake Total 3327 / 3327 1592 / 1592 650 / 650 Output Total 1830 / 1830 725 / 725 Balance 1497 / 1497 867 / 867 650 / 650 Weight 114 kg Intake: IV 500 / 500 650 / 650 650 / 650 Zyvox 600 mg Premix 300 ML @ 300 / 300 300 / 300 300 / 300 300 mls/hr IV.SIG Q12H [facility] Rx#: [id number] Merrem Inj 1,000 MG In NS Inj 100 / 100 100 / 100 100 / 100 100 ML @ 200 mls/hr IV.SIG Q12H [facility] Rx#:[id number] Mycamine Inj 100 MG In NS Inj 100 / 100 100 / 100 100 ML @ 100 mls/hr IV.SIG Q24H [facility] Rx#:[id number] fentaNYL 10 mcg/mL Premix Drip 250 / 250 2,500 mcg In 250 ml @ 50 MCG/HR 5 mls/hr IV.SIG TITRATE PRN Rx #:[id number] Oral 0 / 0 Oral Supplement 0 / 0 Tube Feeding 1247 / 1247 642 / 642 Tube Irrigant 120 / 120 Water Bolus Amount 260 / 260 300 / 300 Other 1200 / 1200 Output: Urine 125 / 125 Stool 1300 / 1300 500 / 500 Urine/Stool Mix 0 / 0 Estimated Blood Loss 30 / 30 Urine Amount (Catheter) 375 / 375 225 / 225 Indwelling Urethral Catheter 375 / 375 225 / 225 Wound Drainage 0 / 0 ZAMZAM Drain 0 / 0 Other: Other Intake Source Saline Solution # Voids 1 # Incontinent Voids 1 Date of Last Bowel Movement 11/14/17 11/14/17 11/14/17 # Bowel Movements 0 # Incontinent Bowel Movements 0 # Emeses 1 <Maddy Jackson M - 11/15/17 15:45> Vital Signs 11/14/17 10:00 11/14/17 10:01 11/14/17 11:01 Temperature 98.2 F 98.2 F 97.7 F Pulse Rate 116 H 110 H 106 H Respiratory Rate 31 H 28 H 30 H Blood Pressure 121/55 L 135/106 H Pulse Oximetry 95 11/14/17 11:10 11/14/17 12:00 11/14/17 12:01 Temperature 95.5 F L 96.6 F L 96.6 F L Pulse Rate 110 H 105 H 105 H Respiratory Rate 25 H 26 H 22 Blood Pressure 105/53 L 139/64 Pulse Oximetry 100 100 100 11/14/17 13:00 11/14/17 13:06 11/14/17 14:00 Temperature 96.3 F L 96.1 F L Pulse Rate 114 H 99 H Respiratory Rate 25 H 25 H 18 Blood Pressure 112/62 98/50 L Pulse Oximetry 100 100 100 11/14/17 15:01 11/14/17 15:04 11/14/17 15:13 Temperature 95.4 F L 95.4 F L Pulse Rate 90 111 H Respiratory Rate 17 21 18 Blood Pressure 166/106 H 155/72 H Pulse Oximetry 90 L 88 L 100 11/14/17 16:00 11/14/17 17:01 11/14/17 19:00 Temperature 95.0 F L 94.6 F L Pulse Rate 105 H 99 H Respiratory Rate 34 H 15 16 Blood Pressure 170/81 H 115/58 L Pulse Oximetry 98 100 98 11/14/17 20:00 11/14/17 23:00 11/15/17 00:00 Temperature 94.1 F L 94 F L Pulse Rate 88 94 H Respiratory Rate 15 12 13 Blood Pressure 100/57 L 97/55 L Pulse Oximetry 100 96 97 11/15/17 04:00 11/15/17 07:37 Temperature 94.1 F L Pulse Rate 94 H Respiratory Rate 16 19 Blood Pressure 102/58 L Pulse Oximetry 99 100 Intake & Output 11/14/17 11/15/17 11/15/17 18:59 06:59 18:59 Intake Total 3327 / 3327 1592 / 1592 Output Total 1830 / 1830 725 / 725 Balance 1497 / 1497 867 / 867 Weight 114 kg Intake: IV 500 / 500 650 / 650 Zyvox 600 mg Premix 300 ML @ 300 / 300 300 / 300 300 mls/hr IV.SIG Q12H [facility] Rx#: [id number] Merrem Inj 1,000 MG In NS Inj 100 / 100 100 / 100 100 ML @ 200 mls/hr IV.SIG Q12H [facility] Rx#:[id number] Mycamine Inj 100 MG In NS Inj 100 / 100 100 ML @ 100 mls/hr IV.SIG Q24H [facility] Rx#:[id number] fentaNYL 10 mcg/mL Premix Drip 250 / 250 2,500 mcg In 250 ml @ 50 MCG/HR 5 mls/hr IV.SIG TITRATE PRN Rx #:[id number] Oral 0 / 0 Oral Supplement 0 / 0 Tube Feeding 1247 / 1247 642 / 642 Tube Irrigant 120 / 120 Water Bolus Amount 260 / 260 300 / 300 Other 1200 / 1200 Output: Urine 125 / 125 Stool 1300 / 1300 500 / 500 Urine/Stool Mix 0 / 0 Estimated Blood Loss Urine Amount (Catheter) 375 / 375 225 / 225 Indwelling Urethral Catheter 375 / 375 225 / 225 Wound Drainage 0 / 0 ZAMZAM Drain 0 / 0 Other: Other Intake Source Saline Solution # Voids 1 # Incontinent Voids 1 Date of Last Bowel Movement 11/14/17 11/14/17 # Bowel Movements 0 # Incontinent Bowel Movements 0 # Emeses 1 <Chaz Vivar - 11/15/17 09:47> Narrative: GENERAL: Morbidly obese -Portuguese female lying in bed intubated and sedated with soft restraints intact. HEENT: Atraumatic, normocephalic. No rhinorrhea. ET tube in place. No visible lymphadenopathy or jugulovenous distension appreciated. CARDIOVASCULAR: Tachycardic rate (baseline) and regular rhythm without obvious murmurs, gallops, or rubs. RESPIRATORY: Continued bilateral rhonchi at the BL bases. Breath sounds difficult to auscultate due to body habitus and ventilator noise. No increased work of breathing. GASTROINTESTINAL: Abdomen diffuse, soft with soft bowel sounds likely due to body habitus. Patient nontender in the upper 2 quadrants, deferred tenderness evaluation and lower quadrants due to wounds. No masses appreciated. Rectal tube in place with liquid fecal material in reservoir, rectal tube with leaking material on to sacral area. Hopper catheter in place with minimal urinary output in reservoir. MUSCULOSKELETAL: No cyanosis. Stable bilateral upper extremity 1+ edema. Stable bilateral lower extremity 2+. No calf tenderness. Left knee effusion stable and nontender to palpation. SCDs in place. NEURO/PSYCH: Patient intubated and sedated. Responds to verbal stimuli with eye opening, however is unable to squeeze my hand or move extremities on command. SKIN: Cool and dry. No rash. PICC line inserted without surrounding erythema, warmth, or other signs of infection. ABD wounds: Currently bandaged with areas of purulent drainage on the pelvic wounds. No signs of hemorrhage. All bandages damp from serosanguineous drainage. Increasing erythema with multiple sites of wound tracking along the abdominal fold and bilateral pelvic wounds extending into the mid thigh. Closely examined abdominal wounds on 11/12/17 with staff assistance. Lower midline abdomen wound and transverse area with areas of medical stapling appear stable from earlier exams. Wounds extending into the pubic area and draining purulent material that appear acutely worsened. The wound extends over the right anterior hip which also appears to be worsened and draining purulence. Sacral area with deep sacral ulcer covered in fecal material due to rectal tube leak with purulent material. Overall wounds look worse than prior exams with increased purulence and serosanguineous drainage. Bedding overlying affected area is partly saturated. <Chaz Vivar 11/15/17 10:08> - Urinary Catheter Management Female External Cath placed during this visit: no <Maddy Jackson 11/15/17 15:45> no <Chaz Vivar 11/15/17 15:09> Indwelling Urethral Catheter Cath placed during this visit: no <Maddy Jackson - 11/15/17 15:45> yes, but has since been removed by the nurse <Chaz Vivar 11/15/17 15:09> Reason for continuing: Severe pressure ulcer/wound <Chaz Vivar 11/15/17 09:47> Insertion date: 10/09/17 <Chaz Vivar 11/15/17 09:47> Insertion time: 14:00 <Chaz Vivar 11/15/17 09:47> Removal date: 10/05/17 <Chaz Vivar 11/15/17 09:47> Removal time: 17:30 <Chaz Vivar 11/15/17 09:47> Assessment and Plan - Assessment (1) Respiratory failure Code(s): J96.90 - Respiratory failure, unspecified, unspecified whether with hypoxia or hypercapnia Status: Acute (2) Sepsis Code(s): A41.9 - Sepsis, unspecified organism Status: Acute (3) Aspiration into airway Code(s): T17.908A - Unspecified foreign body in respiratory tract, part unspecified causing other injury, initial encounter Status: Acute (4) Open wound of abdominal wall Code(s): S31.109A - Unspecified open wound of abdominal wall, unspecified quadrant without penetration into peritoneal cavity, initial encounter Status : Acute (5) C. difficile diarrhea Code(s): A04.72 - Enterocolitis due to Clostridium difficile, not specified as recurrent Status: Acute (6) Poor nutrition Code(s): E63.9 - Nutritional deficiency, unspecified Status: Acute (7) Thrombocytopenia Code(s): D69.6 - Thrombocytopenia, unspecified Status: Acute (8) Creatinine elevation Code(s): R79.89 - Other specified abnormal findings of blood chemistry Status : Acute (9) Schizophrenia Code(s): F20.9 - Schizophrenia, unspecified Status: Chronic (10) Altered mental status Code(s): R41.82 - Altered mental status, unspecified Status: Acute (11) Hypoglycemia Code(s): E16.2 - Hypoglycemia, unspecified Status: Resolved (12) Cellulitis of knee, left Code(s): L03.116 - Cellulitis of left lower limb Status: Acute (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 - Infection and inflammatory reaction due to unspecified internal joint prosthesis, initial encounter Status: Suspected (14) Hypokalemia Code(s): E87.6 - Hypokalemia Status: Resolved (15) Anemia Code(s): D64.9 - Anemia, unspecified Status: Resolved (16) Fall Code(s): W19.XXXA - Unspecified fall, initial encounter Status: Acute (17) Hypertension Code(s): I10 - Essential (primary) hypertension Status: Acute (18) Tachycardia Code(s): R00.0 - Tachycardia, unspecified Status: Chronic (19) Nutrition, metabolism, and development symptoms Code(s): R63.8 - Other symptoms and signs concerning food and fluid intake Status: Acute <RenettaMaddy Parris - 11/15/17 15:45> (1) Respiratory failure Code(s): J96.90 - Respiratory failure, unspecified, unspecified whether with hypoxia or hypercapnia Status: Acute Plan: Patient with possible aspiration episode on 11/12/17 with subsequent acute respiratory failure requiring intubation -11/12/17 AB.3/33/219/16 -CXR 11/15/17: Mild bibasilar consolidation, improved on the right and slightly worse on the left. -Patient intubated and sedated -Warrant Server consulted (2) Sepsis Code(s): A41.9 - Sepsis, unspecified organism Status: Acute Plan: Patient currently meeting sepsis criteria with core body temperature of approximately 94, leukocytosis, and tachycardia. Suspected site of infection as her extensive abdominal wounds. -Please see plan as below (3) Aspiration into airway Code(s): T17.908A - Unspecified foreign body in respiratory tract, part unspecified causing other injury, initial encounter Status: Acute Plan: Patient with possible aspiration episode overnight 11/09/17 with another episode on 11/12/17. Patient now with respiratory failure as above -Chest x-ray 11/09/12: Interval development of left lower lobe consolidation -CXR 11/10/17: Left upper extremity PICC distal tip at the junction of the SVC and brachiocephalic vein. Bibasilar airspace opacity could represent atelectasis versus consolidation. -CXR 11/12/17: Interim intubation. Endotracheal tip at the shaka. Small effusion and mild consolidation developing at the right base. -Sputum cultures: Gram stain with rare gram positive cocci in pairs, many WBC, mucus; Culture with light growth of normal respiratory lisa at 24 hours. -CXR 11/15/17: Mild bibasilar consolidation, improved on the right and slightly worse on the left. Speech therapy consulted for swallow evaluation once extubated -ID consulted Medications: -Meropenem (11/13/17- ) -Micafungin (11/13/17- ) -Linezolid (11/13/17- ) Levaquin (11/10/17-11/15/17) -Flagyl (11/10/17-11/13/17) (4) Open wound of abdominal wall Code(s): S31.109A - Unspecified open wound of abdominal wall, unspecified quadrant without penetration into peritoneal cavity, initial encounter Status : Acute Plan: Large abdominal and pelvic wounds that appear not to be healing likely secondary to poor nutritional status -Wound Culture 09/27/17: Pseudomonas and Group B Step -Blood Cultures 10/24/17: Negative -Tissue Cultures 10/09/17: Negative -Abdominal wound culture 11/01/17: Group D Enterococcus, sensitive to Daptomycin ; Fungal species -Blood Culture 11/07/17 per TPN protocol: Negative to date -Blood Culture 11/12/17: NTD -PICC Line Cultures 11/15/17: Pending -Infectious disease consulted -General surgery consulted -Surgical debridement 10/09, wound VAC applied. -VAC changed 10/12 removed 10/15. -Debridement, irrigation, with suturing performed on 10/16. -I&D of abdomen and bilateral thighs, placement of Amniox with wound closure on 11/01/17 -Dressing changes per general surgery Medications: -Meropenem (11/13/17- ) -Micafungin (11/13/17- ) -Linezolid (11/13/17- ) Levaquin (11/10/17-11/15/17) -Daptomycin IV for suspected VRE per ID (11/03/17-11/13/17) -Cefepime IV (09/29/17-11/08/17) discontinued due to thrombocytopenia and elevated creatinine -Flagyl (11/10/17- ) -Diflucan 500mg daily (11/12/17) -Fentanyl added to assist with pain control (5) C. difficile diarrhea Code(s): A04.72 - Enterocolitis due to Clostridium difficile, not specified as recurrent Status: Acute Plan: -C diff cultures positive 10/19/17 -Patient meeting criteria for severe C. difficile infection -Vancomycin PO 125 4 times daily (10/23/17- ) -Difficid 200mg BID (11/15/17- ) -Continue with probiotics. -Rectal tube in place (6) Poor nutrition Code(s): E63.9 - Nutritional deficiency, unspecified Status: Acute Plan: -Patient with poor nutritional status during hospitalization -Severe concern of poor wound healing secondary to poor nutritional status -Generating Plant Superintendent consulted for calorie count and nutritional guidance, which has been limited due to NPO status prior to surgery, however patient continues to have poor intake -Multivitamin IV added with Hermes supplementation BID -Albumin levels continued to be decreased -Patient unable to receive 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 Briefly discussed with surgery about the possibility of a JG tube versus surgical placement of PEG tube, deferred as patient will likely not heal from surgical procedure due to nutritional status -NG tube placed with vital 1.5 tube feeds started per dietary TPN, Clinimix E 08/05 @ 65 mls/hr with 20% lipids 250 mls 2x/week (11/07/17-) (7) Thrombocytopenia Code(s): D69.6 - Thrombocytopenia, unspecified Status: Acute Plan: Patient with decreasing platelet count -Etiology unknown -No signs of acute bruising/bleeding on limited skin exam due to body habitus -Continue to monitor (8) Creatinine elevation Code(s): R79.89 - Other specified abnormal findings of blood chemistry Status : Acute Plan: Patient with acute creatinine elevation with starting TPN. -Unknown etiology at this time -Patient with decreasing urinary output, nursing to discuss with ID for possible Hopper exchange to assist with decrease output due to clot/obstruction -Electrolytes WNL -Continue to monitor Creatinine (9) Schizophrenia Code(s): F20.9 - Schizophrenia, unspecified Status: Chronic Plan: -Psychiatry consulted upon admission -Patient with increased agitation and disorientation on 11/09/17; during episode patient pulled PICC line and attempted to pull out rectal/Hopper; patient required 1 mg Haldol for agitation during episode -Psychiatry consulted for further evaluation Medications: -Haldol 1-2 mg IV/IM every 8 hours as needed for aggressive behavior/agitation -Continue Abilify 30 mg for psychosis -Continue buspirone 30 mg, trazodone 100 mg and Cymbalta 60 mg -Started Mirtazapine 15mg QHS to assist with mood as well as appetite stimulant -Hold anticholinergics per Psych (10) Altered mental status Code(s): R41.82 - Altered mental status, unspecified Status: Acute Plan: Patient with altered mental status overnight 11/11/17 with possible aspiration due to new dysphagia. Patient's mental status continues to decline with a GCS score of 10. Likely related to hypoglycemia as patient did not have access and was not able to receive nutrition via PICC line and is n.p.o. for failed swallow study. -CT Head: Interval enlargement of the ventricular system of uncertain etiology. No clear evidence of an obstructing process. Otherwise stable evaluation without evidence of acute infarct, hemorrhage, mass, or edema. -MRI wo contrast: Negative for acute process -Speech therapy consulted Neurology consulted, appreciate recommendations -No active neurological issues -Warrant Server consulted, appreciate recommendations Medications: -Glucagon given overnight -STAT buccal glucose given -TPN re-initiated -All PO medications placed on Hold -Haldol 1mg PRN for agitation/hallucinations -Lopressor 5mg IV PRN for HR >120 every 15min (11) Hypoglycemia Code(s): E16.2 - Hypoglycemia, unspecified Status: Resolved Plan: Patient presenting with altered mental status 11/11/17 Differential remains wide, however patient also with hypoglycemia likely contributing to mental status Patient currently n.p.o. due to dysphagia Patient has lost PICC line 2 and currently does not have IV access due to poor vasculature, therefore she has been unable to receive TPN, fluids, or antibiotics at this time Stat consult to IR for PICC line placement, LEI Ellis -PICC place without complications -TPN restarted Medications: Patient given buccal glucose PRN Patient given glucagon 1 overnight -TPN initiated (12) Cellulitis of knee, left Code(s): L03.116 - Cellulitis of left lower limb Status: Acute Plan: -ID consulted, recommend Cefepime until 11/08/17 -Orthopedic surgery consulted, no further recommendations at this time Medications: -As above (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 She completed rehabilitation and was discharged home August 23. Patient was on approximately 2 weeks of po Keflex 500 mg. Per Ortho, examination of left knee shows no evidence of infection. (14) Hypokalemia Code(s): E87.6 - Hypokalemia Status: Resolved Plan: -Patient with hypokalemia during hospitalization. Appears to be not tolerating ER capsules as they were found whole in her rectal tube reservoir. Medications: -Patient placed on ICU electrolyte protocol (15) Anemia Code(s): D64.9 - Anemia, unspecified Status: Resolved Plan: -Patient found to have asymptomatic anemia H/H of 10/05.3 with MCV of 82 on -Rectal tube and Hopper catheter without any signs of acute bleeding -Dressings without obvious signs of bleeding -Due to critical condition and severity of abdominal wounds with decreasing hemoglobin, 2 units PRBC ordered (10 units total thus far during admission) -Patient did receive Lasix between units to assist with possible fluid overload -Continue to monitor (16) Fall Code(s): W19.XXXA - Unspecified fall, initial encounter Status: Acute Plan: Patient with fall on 10/19/17. No loss of consciousness, no head injury, left knee and ankle pain. -Knee x-ray- Prosthesis in place, No abnormality appreciated -Ankle x-ray- No abnormality appreciated -Patient to continue with PT (17) Hypertension Code(s): I10 - Essential (primary) hypertension Status: Acute Plan: History of hypertension Hold oral medications below -Continue to monitor -Clonidine PRN for BP > 180/100 (18) Tachycardia Code(s): R00.0 - Tachycardia, unspecified Status: Chronic Plan: -Patient with chronic history of tachycardia -EKG 09/27/17: Sinus tachycardia with rate of [address] or interval changes. (Per medical team read) Medications: -Lopressor 5mg IV PRN for HR >120 if unable to tolerate PO -Continue home diltiazem and carvedilol (19) Nutrition, metabolism, and development symptoms Code(s): R63.8 - Other symptoms and signs concerning food and fluid intake Status: Acute Plan: Fluids: NG tube feeds with Vital 1.5 @ 50 mls/hr goal, plan to ween TPN with SSI as needed Electrolytes: Replete as needed per ICU protocol Nutrition: -Generating Plant Superintendent consulted for nutritional guidance -NG tube placed and tube feeds started with vital 1.5 at 50 mils per hour (goal) -TPN Clinimix E 08/05 @ 65 mls/hr with 20% lipids 250 mls 2x/week (11/07/17- ); plan to wean as tolerated now that NG tube feeds have been initiated Vascular axis reconsulted for PICC line placement; placed in left upper extremity DVT prophylaxis: SCDs, Defer medical prophylaxis due to anemia Continue to work with OT/PT to improve ambulation <Chaz Vivar H - 11/15/17 15:00> - Assessment and Plan . <Chaz Vivar - 11/15/17 09:47> - Attending Attestation The exam, history, and the medical decision-making described in the above note were completed with the assistance of the resident physician. I reviewed and agree with the findings presented. I attest that I had a [id number] encounter with the patient on the same day, and personally performed and documented my assessment and findings in the medical record. Unfortunately with her low albumin there is no way for her to heal up her wounds. People who have large areas of open wounds will normally succumb to infection. Her immune system is also likely poor due to her underlying poor nutrition. She appears to be at a stage where her little can be done to cure her the hope was to transfer her to [facility] so that they could continue on the very long drawn out process of trying to help her improve. But she is too sick to be transferred at this time. Palliative care and I have spoken to the in the past. Will speak to him, continue to speak to him so that we can explain how extremely ill she is. She would be very hospice appropriate. <Maddy Jackson M - 11/15/17 15:45> <Chaz Vivar H - Last Filed: 11/15/17 15:00> (1) Respiratory failure Qualifiers: Chronicity: acute (3) Aspiration into airway Qualifiers: Encounter type: initial encounter Qualified Code(s): T17.908A - Unspecified foreign body in respiratory tract, part unspecified causing other injury, initial encounter (4) Open wound of abdominal wall Qualifiers: Encounter type: initial encounter Qualified Code(s): S31.109A - Unspecified open wound of abdominal wall, unspecified quadrant without penetration into peritoneal cavity, initial encounter (10) Altered mental status Qualifiers: Altered mental status type: unspecified Qualified Code(s): R41.82 - Altered mental status, unspecified (15) Anemia Qualifiers: Anemia type: unspecified type Qualified Code(s): D64.9 - Anemia, unspecified (17) Hypertension Qualifiers: Hypertension type: essential hypertension Qualified Code(s): I10 - Essential (primary) hypertension <Maddy Jackson M - Last Filed: 11/15/17 15:45> (1) Respiratory failure Qualifiers: Chronicity: acute (3) Aspiration into airway Qualifiers: Encounter type: initial encounter Qualified Code(s): T17.908A - Unspecified foreign body in respiratory tract, part unspecified causing other injury, initial encounter (4) Open wound of abdominal wall Qualifiers: Encounter type: initial encounter Qualified Code(s): S31.109A - Unspecified open wound of abdominal wall, unspecified quadrant without penetration into peritoneal cavity, initial encounter (10) Altered mental status Qualifiers: Altered mental status type: unspecified Qualified Code(s): R41.82 - Altered mental status, unspecified (15) Anemia Qualifiers: Anemia type: unspecified type Qualified Code(s): D64.9 - Anemia, unspecified (17) Hypertension Qualifiers: Hypertension type: essential hypertension Qualified Code(s): I10 - Essential (primary) hypertension <Chaz Vivar - Last Filed: 11/15/17 15:00> (1) Respiratory failure Qualifiers: Chronicity: acute (3) Aspiration into airway Qualifiers: Encounter type: initial encounter Qualified Code(s): T17.908A - Unspecified foreign body in respiratory tract, part unspecified causing other injury, initial encounter (4) Open wound of abdominal wall Qualifiers: Encounter type: initial encounter Qualified Code(s): S31.109A - Unspecified open wound of abdominal wall, unspecified quadrant without penetration into peritoneal cavity, initial encounter (10) Altered mental status Qualifiers: Altered mental status type: unspecified Qualified Code(s): R41.82 - Altered mental status, unspecified (15) Anemia Qualifiers: Anemia type: unspecified type Qualified Code(s): D64.9 - Anemia, unspecified (17) Hypertension Qualifiers: Hypertension type: essential hypertension Qualified Code(s): I10 - Essential (primary) hypertension <Maddy Jackson - Last Filed: 11/15/17 15:45> (1) Respiratory failure Qualifiers: Chronicity: acute (3) Aspiration into airway Qualifiers: Encounter type: initial encounter Qualified Code(s): T17.908A - Unspecified foreign body in respiratory tract, part unspecified causing other injury, initial encounter (4) Open wound of abdominal wall Qualifiers: Encounter type: initial encounter Qualified Code(s): S31.109A - Unspecified open wound of abdominal wall, unspecified quadrant without penetration into peritoneal cavity, initial encounter (10) Altered mental status Qualifiers: Altered mental status type: unspecified Qualified Code(s): R41.82 - Altered mental status, unspecified (15) Anemia Qualifiers: Anemia type: unspecified type Qualified Code(s): D64.9 - Anemia, unspecified (17) Hypertension Qualifiers: Hypertension type: essential hypertension Qualified Code(s): I10 - Essential (primary) hypertension
[2017-11-15] MEDS: Heparin Central Flush 100 UNIT/ML 5 ML Vial IV.FLUSH SCH ×2 (10:37)
--- NOTE | 2017-11-15 11:43 | P.PNGS ---
Subjective Patient reports: no new complaints (intubated sedated, wbc increase, hypothermic ) Physical Exam Vital signs: Vital Signs 11/14/17 12:00 11/14/17 12:01 11/14/17 13:00 Temperature 96.6 F L 96.6 F L 96.3 F L Pulse Rate 105 H 105 H 114 H Respiratory Rate 26 H 22 25 H Blood Pressure 139/64 112/62 Pulse Oximetry 100 100 100 11/14/17 13:06 11/14/17 14:00 11/14/17 15:01 Temperature 96.1 F L 95.4 F L Pulse Rate 99 H 90 Respiratory Rate 25 H 18 17 Blood Pressure 98/50 L 166/106 H Pulse Oximetry 100 100 90 L 11/14/17 15:04 11/14/17 15:13 11/14/17 16:00 Temperature 95.4 F L 95.0 F L Pulse Rate 111 H 105 H Respiratory Rate 21 18 34 H Blood Pressure 155/72 H 170/81 H Pulse Oximetry 88 L 100 98 11/14/17 17:01 11/14/17 19:00 11/14/17 20:00 Temperature 94.6 F L 94.1 F L Pulse Rate 99 H 88 Respiratory Rate 15 16 15 Blood Pressure 115/58 L 100/57 L Pulse Oximetry 100 98 100 11/14/17 23:00 11/15/17 00:00 11/15/17 04:00 Temperature 94 F L 94.1 F L Pulse Rate 94 H 94 H Respiratory Rate 12 13 16 Blood Pressure 97/55 L 102/58 L Pulse Oximetry 96 97 99 11/15/17 07:37 11/15/17 08:00 Temperature 94.1 F L Pulse Rate 94 H Respiratory Rate 19 18 Blood Pressure 103/66 Pulse Oximetry 100 100 Intake & Output 11/14/17 11/15/17 11/15/17 18:59 06:59 18:59 Intake Total 3327 / 3327 1592 / 1592 Output Total 1830 / 1830 725 / 725 Balance 1497 / 1497 867 / 867 Weight 114 kg Intake: IV 500 / 500 650 / 650 Zyvox 600 mg Premix 300 ML @ 300 / 300 300 / 300 300 mls/hr IV.SIG Q12H [facility] Rx#: [id number] Merrem Inj 1,000 MG In NS Inj 100 / 100 100 / 100 100 ML @ 200 mls/hr IV.SIG Q12H [facility] Rx#:[id number] Mycamine Inj 100 MG In NS Inj 100 / 100 100 ML @ 100 mls/hr IV.SIG Q24H [facility] Rx#:[id number] fentaNYL 10 mcg/mL Premix Drip 250 / 250 2,500 mcg In 250 ml @ 50 MCG/HR 5 mls/hr IV.SIG TITRATE PRN Rx #:[id number] Oral 0 / 0 Oral Supplement 0 / 0 Tube Feeding 1247 / 1247 642 / 642 Tube Irrigant 120 / 120 Water Bolus Amount 260 / 260 300 / 300 Other 1200 / 1200 Output: Urine 125 / 125 Stool 1300 / 1300 500 / 500 Urine/Stool Mix 0 / 0 Estimated Blood Loss 30 / 30 Urine Amount (Catheter) 375 / 375 225 / 225 Indwelling Urethral Catheter 375 / 375 225 / 225 Wound Drainage 0 / 0 ZAMZAM Drain 0 / 0 Other: Other Intake Source Saline Solution # Voids 1 # Incontinent Voids 1 Date of Last Bowel Movement 11/14/17 11/14/17 11/14/17 # Bowel Movements 0 # Incontinent Bowel Movements 0 # Emeses 1 - Routine Abdominal Exam Present: soft (incisions approximated with nedra and sutures serous draiange from lateral aspect) - Urinary Catheter Management Female External Cath placed during this visit: no Indwelling Urethral Catheter Cath placed during this visit: yes, but has since been removed by the nurse Reason for continuing: Severe pressure ulcer/wound Insertion date: 10/09/17 Insertion time: 14:00 Removal date: 10/05/17 Removal time: 17:30 Assessment and Plan - Assessment (1) Fungal infection of skin of abdomen Code(s): B36.9 - Superficial mycosis, unspecified Status: Acute - Plan s/p I and D with closure dressing changes keep incisions dry, continue wound care tx for c diff- ID following, fungal cx positive keep wounds clear of stool, continue dressing changes wet to dry to center and LLE, dry dressing at other incisions agree with tube feedings restrains if needed, select transfer on hold until pt improves
--- NOTE | 2017-11-15 12:06 | P.PNID ---
Subjective Remarks: ID coverage. 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 Post op it appears she was discharged to a rehab. She was discharged from the rehab to home with her on August 23. Patient reports she lives at home with her who is on disability. Unsure of nature of disability at this time and his ability to take care of her. She was reportedly able to ambulate on her own initially followed by weakness and need for walker and then to a point where she did not want to get out of bed. It has been reported to others that she had some discharge at the left surgical site area and ortho surgeon prescribed oral keflex which reportedly lead to some improvement. She reportedly completed a week of antibiotic treatment with last day scheduled for today with some improvement in her knee pain. However her stated that she was starting to have more drainage from her knee just over the past day or so. He had pointed to several areas that had been draining pus from just above and just below the knee. He stated that a cup full of pus would drain at a time. Additionally the abdominal fold wounds appear to have been present for atleast 3 weeks now. With this background patient presented to the ED with complaints of worsening shortness of breath and mental status accompanied with symptoms of diarrhea (3 days, non-bloody) and decreased p.o. intake (5 days). She was also brought into the hospital due to infection of her knee that improved with Keflex p.o but now has returned with new additional drainage over the past few days. ID consulted for evaluation and Mment of Left knee prosthetic joint infection and neutropenia. Patient underwent incision and debridement of the inferior abdominal wall and proximal inner thighs on 10/12/2017. Since then she has had multiple surgeries done, last one done 11/01, closure of wounds Receiving IV antibiotics for left knee infection/C difficile. CT scan showed small joint effusion and subcutaneous edema of the fat at the left knee. Notes reviewed D/W RN overnight events. Remains intubated Continues to be hypothermic on a bear hugger. Remains tachycardic Blood pressure slightly better Diarrhea ongoing. WBC at 15,000 Appears more lethargic today. Antibiotics: Meropenem Levaquin Zyvox Micafungin PO Vancomycin Lines: PICC Lines ok. Past Medical History: reviewed Allergies/Adverse Reactions: Allergies amoxicillin Allergy (Verified 09/27/17 17:54) Swelling Objective Vital Signs 11/14/17 13:00 11/14/17 13:06 11/14/17 14:00 Temperature 96.3 F L 96.1 F L Pulse Rate 114 H 99 H Respiratory Rate 25 H 25 H 18 Blood Pressure 112/62 98/50 L Pulse Oximetry 100 100 100 11/14/17 15:01 11/14/17 15:04 11/14/17 15:13 Temperature 95.4 F L 95.4 F L Pulse Rate 90 111 H Respiratory Rate 17 21 18 Blood Pressure 166/106 H 155/72 H Pulse Oximetry 90 L 88 L 100 11/14/17 16:00 11/14/17 17:01 11/14/17 19:00 Temperature 95.0 F L 94.6 F L Pulse Rate 105 H 99 H Respiratory Rate 34 H 15 16 Blood Pressure 170/81 H 115/58 L Pulse Oximetry 98 100 98 11/14/17 20:00 11/14/17 23:00 11/15/17 00:00 Temperature 94.1 F L 94 F L Pulse Rate 88 94 H Respiratory Rate 15 12 13 Blood Pressure 100/57 L 97/55 L Pulse Oximetry 100 96 97 11/15/17 04:00 11/15/17 07:37 11/15/17 08:00 Temperature 94.1 F L 94.1 F L Pulse Rate 94 H 94 H Respiratory Rate 16 19 18 Blood Pressure 102/58 L 103/66 Pulse Oximetry 99 100 100 Intake & Output 11/14/17 11/15/17 11/15/17 18:59 06:59 18:59 Intake Total 3327 / 3327 1592 / 1592 Output Total 1830 / 1830 725 / 725 Balance 1497 / 1497 867 / 867 Weight 114 kg Intake: IV 500 / 500 650 / 650 Zyvox 600 mg Premix 300 ML @ 300 / 300 300 / 300 300 mls/hr IV.SIG Q12H [facility] Rx#: [id number] Merrem Inj 1,000 MG In NS Inj 100 / 100 100 / 100 100 ML @ 200 mls/hr IV.SIG Q12H [facility] Rx#:[id number] Mycamine Inj 100 MG In NS Inj 100 / 100 100 ML @ 100 mls/hr IV.SIG Q24H [facility] Rx#:[id number] fentaNYL 10 mcg/mL Premix Drip 250 / 250 2,500 mcg In 250 ml @ 50 MCG/HR 5 mls/hr IV.SIG TITRATE PRN Rx #:[id number] Oral 0 / 0 Oral Supplement 0 / 0 Tube Feeding 1247 / 1247 642 / 642 Tube Irrigant 120 / 120 Water Bolus Amount 260 / 260 300 / 300 Other 1200 / 1200 Output: Urine 125 / 125 Stool 1300 / 1300 500 / 500 Urine/Stool Mix 0 / 0 Estimated Blood Loss 30 / 30 Urine Amount (Catheter) 375 / 375 225 / 225 Indwelling Urethral Catheter 375 / 375 225 / 225 Wound Drainage 0 / 0 ZAMZAM Drain 0 / 0 Other: Other Intake Source Saline Solution # Voids 1 # Incontinent Voids 1 Date of Last Bowel Movement 11/14/17 11/14/17 11/14/17 # Bowel Movements 0 # Incontinent Bowel Movements 0 # Emeses 1 11/13/17 12:30 Sputum - Endotracheal Gram Stain - Final 11/13/17 12:30 Sputum - Endotracheal Sputum Culture - Final Light growth normal respiratory lisa 11/12/17 12:20 Blood - Peripheral Aerobic Blood Culture - Preliminary No growth in 3 days 11/12/17 12:20 Blood - Peripheral Anaerobic Blood Culture - Preliminary No growth in 3 days 11/12/17 12:25 Blood - Peripheral Aerobic Blood Culture - Preliminary No growth in 3 days 11/12/17 12:25 Blood - Peripheral Anaerobic Blood Culture - Preliminary No growth in 3 days 10/09/17 15:49 Tissue - Abdominal Acid Fast Bacilli Smear - Final No acid fast bacilli seen 10/09/17 15:49 Tissue - Abdominal Mycobacterial Culture - Preliminary No growth in 5 weeks 11/01/17 17:45 Wound - Abdominal Fungal Smear - Final No fungal elements seen 11/01/17 17:45 Wound - Abdominal Fungal Culture - Preliminary Susy glabrata 11/01/17 17:45 Wound - Abdominal Acid Fast Bacilli Smear - Final No acid fast bacilli seen 11/01/17 17:45 Wound - Abdominal Mycobacterial Culture - Preliminary No growth in 1 week 11/08/17 09:40 Blood - Other Aerobic Blood Culture - Final No growth in 5 days 11/08/17 09:40 Blood - Other Anaerobic Blood Culture - Final No growth in 5 days 11/08/17 06:50 Blood - Other Aerobic Blood Culture - Final No growth in 5 days 11/08/17 06:50 Blood - Other Anaerobic Blood Culture - Final No growth in 5 days Lab - Hematology Results 11/14/17 11/15/17 10:37 05:25 WBC 15.1 H 15.7 H RBC 2.83 L 2.61 L Hgb 7.9 L 7.7 L Hct 23.6 L 22.1 L MCV 83.4 84.6 MCH 28.0 29.4 MCHC 33.5 34.8 RDW 16.7 17.4 H Plt Count 91 L D 78 L MPV 8.1 7.7 Prelim Diff (Auto) Slide review pending Neut % (Auto) 80.1 H Lymph % (Auto) 12.9 Coffee % (Auto) 6.3 Eos % (Auto) 0.5 Baso % (Auto) 0.2 Neut # (Auto) 12.1 H Lymph # (Auto) 1.9 Coffee # (Auto) 0.9 Eos # (Auto) 0.1 Baso # (Auto) 0.0 WBC Differential Manual diff final Seg Neuts % (Manual) 67 Band Neuts % (Manual) 13 H Lymphocytes % (Manual) 15 Monocytes % (Manual) 3 Eosinophils % (Manual) 2 Abs Neuts (Manual) 12.1 H Nucleated RBCs/100 WBC 3 H Differential Comment . Toxic Vacuolation Present H Platelet Estimate Low L Platelet Morphology Normal Spherocytes Occ H Target Cells 1+ H Lab - Chemistry Results 11/13/17 11/13/17 11/14/17 13:52 16:19 02:45 Sodium 147 H Potassium 3.2 L Chloride 118 H Carbon Dioxide 16.7 L Anion Gap 12 BUN 19 H Creatinine 1.46 H Estimated GFR 45 L POC Glucose 132 H 96 Random Glucose 183 H Calcium 7.9 L Total Bilirubin 0.2 AST 16 ALT 19 Alkaline Phosphatase 134 H Total Protein 4.1 L Albumin 0.8 L 11/14/17 11/14/17 11/14/17 05:27 08:36 10:37 Sodium 144 Potassium 4.5 D Chloride 116 H Carbon Dioxide 18.9 L Anion Gap 9 BUN 26 H Creatinine 1.79 H Estimated GFR 36 L POC Glucose 113 H 106 Random Glucose 89 Calcium 8.1 L Total Bilirubin 0.2 AST 26 ALT 22 Alkaline Phosphatase 161 H Total Protein 4.6 L Albumin 0.9 L 11/14/17 11/14/17 11/14/17 12:46 16:41 23:43 Sodium Potassium Chloride Carbon Dioxide Anion Gap BUN Creatinine Estimated GFR POC Glucose 148 H 154 H 118 H Random Glucose Calcium Total Bilirubin AST ALT Alkaline Phosphatase Total Protein Albumin 11/15/17 11/15/17 05:22 05:25 Sodium 140 Potassium 4.1 Chloride 113 H Carbon Dioxide 19.9 L Anion Gap 7 BUN 31 H Creatinine 1.89 H Estimated GFR 34 L POC Glucose 94 Random Glucose 95 Calcium 7.8 L Total Bilirubin 0.3 AST 35 ALT 23 Alkaline Phosphatase 173 H Total Protein 4.4 L Albumin 0.8 L Imaging: ITS Impressions Tibia/Fibula X-Ray 09/27/17 00:00 CONCLUSION: No acute left leg abnormality is identified. Abdomen/Pelvis CT 09/27/17 08:10 CONCLUSION: 1. Mild hepatic steatosis. 2. Thickening of the colon secondary to lack of distention versus colitis. 3. Left lower lobe consolidation and/or atelectasis. There does appear to be a 1.4 cm cavitary area which makes consolidation likely. Chest CTA 09/27/17 08:22 CONCLUSION: 1. No pulmonary embolus. 2. Consolidation or atelectasis at the left lower lobe. Knee CT 10/18/17 00:00 CONCLUSION: 1. Small joint effusion. 2. Nonspecific subcutaneous edema in the subcutaneous soft tissues above and below the knee. 3. No significant changes compared to the prior exam. Ankle X-Ray 10/19/17 00:00 CONCLUSION: 1. No acute fracture or dislocation. Knee X-Ray 10/19/17 00:00 CONCLUSION: 1. Total knee prosthesis in place. 2. Moderate-sized knee joint effusion. Head CT 11/10/17 00:00 CONCLUSION: 1. Interval enlargement of the ventricular system of uncertain etiology. There is no clear evidence of an obstructing process. 2. Otherwise stable evaluation without evidence of acute infarct, hemorrhage, mass or edema. . Venous Doppler Study 11/10/17 00:00 CONCLUSION: 1. No venous thrombosis is identified within either lower extremity. 2. As described above, secondary to open wounds, the left external iliac, common femoral vein, and greater saphenous veins were not adequately evaluated. Head MRI 11/11/17 00:00 CONCLUSION: 1. Motion artifact is present throughout the scan. 2. Examination is diagnostic. 3. No evidence of acute infarct, hemorrhage, mass or edema. PICC Line Insertion 11/11/17 08:51 CONCLUSION: 1. Uncomplicated central venous Power PICC line placement. 2. The PICC line can be used immediately. Chest X-Ray 11/15/17 06:00 CONCLUSION: Mild bibasilar consolidation, improved on the right and slightly worse on the left. Lines and tubes as above. Physical Exam: GENERAL: Awake, focusing, on the vent, NAD. Has warming blanket HEENT: Pupils reactive to light. Extraocular movements intact. No icterus. Orally intubated NECK: Supple without adenopathy. No swelling. LUNGS: Decreased breath sounds. HEART: Regular S1 and S2. ABDOMEN: Obese, soft. Nontender. Groin and abdominal area with sutures in place and dressing with some weeping of serous discharge noted.Tunneling noted in the center of the abdomen. There is a large open wound in medial upper L thigh, no purulence. Sacral area with abrasion noted. EXTREMITIES: swelling of the left knee. less warmth. SKIN: No diffuse rash. NEUROLOGIC: Awake focusing PSYCH: Unable to assess LINE: No evidence of infection Assessment and Plan - Plan IMPRESSION: Sepsis. Neutropenic sepsis on admission Abdominal fold cellulitis/skin breakdown. Post incision and debridement and closure of skin fold. General surgery following. s/p panniculectomy. Groin cellulitis, Mons pubis cellulitis/skin breakdown. Leucopenia, pancytopenia: ? MTX, ? Psych meds, ? Sepsis contributing. resolved. Left knee hardware in place. CT with fluid collection. Left knee infection - prior wound culture had Pseudomonas and group B beta strep. PSAE, VRE and Susy glabrata infection of the abdominal wound. Severe Cdiff - Positive PCR C. difficile. Acute resp failure, likely aspiration PNA Acute metabolic encephalopathy: sepsis. RECOMMENDATIONS: Continue Zyvox for MRSA and VRE coverage Continue Meropenem for broader GNR coverage till cultures finalized. Continue Micafungin IV for c.glabrata infection and concern for new line fungemia. Continue po Vanco for C diff. Add Difficid for severe Cdiff as patient on concomitant antibiotics. DC Levaquin Blood cultures from PICC line and periphery today. Monitor progress D/W RN I will be OOT from 11/16/17 to 11/20/2017. Other ID MDs covering for me.
--- NOTE | 2017-11-15 12:34 | P.PNCC ---
Subjective Subjective Remarks/Hospital Course: his is a 52-year-old female with a very complex medical history who was admitted back in September 2017 for postoperative wound infection from her total knee arthroplasty. Her course has been complicated by multiple necrotizing soft tissue infections. She additionally has failure to thrive and severe acute protein calorie malnutrition for which she has been on total parenteral nutrition. She intermittently becomes agitated and pulls out her IV access. Today she was on the floor when she became worsening the febrile and altered. She pulled out her own PICC line overnight, and nursing staff was unable to reobtain IV access. Because she was off TPN she became quite hypoglycemic which was refractory to non-intravenous methods of glucose administration. Urgently a new PICC line was placed by interventional radiology and she was given IV dextrose. When her glucose improved, her mental status improved as well. She is transferred to the ICU for management of worsening recurrent sepsis, worsening wound infection, and hypoglycemia. When I evaluated the patient, she was more awake, nonfocal, moving all extremities. She endorses fatigue, but denies other symptoms. She specifically denies chest pain, shortness of breath, fever, chills, nausea, vomiting, abdominal pain. She does endorse diarrhea and has a rectal tube in place. She has a recent history of active C. difficile infection. Remainder of the review systems is negative unless otherwise stated. SUBJ 11/12: Lying in bed no acute distress intermittently confused but follows commands, pleasant. WBC count stable at 11.7. On TPN hypoglycemia has resolved. Discussed with Dr. Schneider 11/13: Intubated and placed on mechanical ventilation yesterday evening for desaturation and lack of airway protection. Creatinine has increased to 1.5 potassium is 2.8 getting replaced. On light sedation patient does follow commands. Antibiotics have been broadened to Zyvox meropenem and Levaquin and micafungin. Continue p.o. vancomycin for C Diff 11/14: Patient intubated sedated with propofol. Wakes up follows some commands but did not tolerate CPAP due to tachypnea. WBC count worsening currently 15.1. Also worsening creatinine 1.8. Some evidence of worsening wound infection in the lower abdomen pelvic region. Lower abdominal and left thigh incisions with increasing drainage 11/15: Remains intubated, sedated, becoming more septic and hypothermic. WBC count is 15.7 creatinine is 1.9 meets criteria for severe C. difficile colitis. Infectious disease following, currently on p.o. vancomycin for C. difficile ID is adding Dificid to the regimen. If not clinically improving need CT of the abdomen pelvis. Worsening sepsis most likely from worsening C. difficile than wound infection Objective Vital Signs / I&O: Vital Signs 11/14/17 13:00 11/14/17 13:06 11/14/17 14:00 Temperature 96.3 F L 96.1 F L Pulse Rate 114 H 99 H Respiratory Rate 25 H 25 H 18 Blood Pressure 112/62 98/50 L Pulse Oximetry 100 100 100 11/14/17 15:01 11/14/17 15:04 11/14/17 15:13 Temperature 95.4 F L 95.4 F L Pulse Rate 90 111 H Respiratory Rate 17 21 18 Blood Pressure 166/106 H 155/72 H Pulse Oximetry 90 L 88 L 100 11/14/17 16:00 11/14/17 17:01 11/14/17 19:00 Temperature 95.0 F L 94.6 F L Pulse Rate 105 H 99 H Respiratory Rate 34 H 15 16 Blood Pressure 170/81 H 115/58 L Pulse Oximetry 98 100 98 11/14/17 20:00 11/14/17 23:00 11/15/17 00:00 Temperature 94.1 F L 94 F L Pulse Rate 88 94 H Respiratory Rate 15 12 13 Blood Pressure 100/57 L 97/55 L Pulse Oximetry 100 96 97 11/15/17 04:00 11/15/17 07:37 11/15/17 08:00 Temperature 94.1 F L 94.1 F L Pulse Rate 94 H 94 H Respiratory Rate 16 19 18 Blood Pressure 102/58 L 103/66 Pulse Oximetry 99 100 100 11/15/17 10:00 11/15/17 12:00 Temperature Pulse Rate 96 H 97 H Respiratory Rate Blood Pressure Pulse Oximetry Intake & Output 11/14/17 11/15/17 11/15/17 18:59 06:59 18:59 Intake Total 3327 / 3327 1592 / 1592 Output Total 1830 / 1830 725 / 725 Balance 1497 / 1497 867 / 867 Weight 114 kg Intake: IV 500 / 500 650 / 650 Zyvox 600 mg Premix 300 ML @ 300 / 300 300 / 300 300 mls/hr IV.SIG Q12H [facility] Rx#: [id number] Merrem Inj 1,000 MG In NS Inj 100 / 100 100 / 100 100 ML @ 200 mls/hr IV.SIG Q12H [facility] Rx#:[id number] Mycamine Inj 100 MG In NS Inj 100 / 100 100 ML @ 100 mls/hr IV.SIG Q24H [facility] Rx#:[id number] fentaNYL 10 mcg/mL Premix Drip 250 / 250 2,500 mcg In 250 ml @ 50 MCG/HR 5 mls/hr IV.SIG TITRATE PRN Rx #:[id number] Oral 0 / 0 Oral Supplement 0 / 0 Tube Feeding 1247 / 1247 642 / 642 Tube Irrigant 120 / 120 Water Bolus Amount 260 / 260 300 / 300 Other 1200 / 1200 Output: Urine 125 / 125 Stool 1300 / 1300 500 / 500 Urine/Stool Mix 0 / 0 Estimated Blood Loss 30 30 Urine Amount (Catheter) 375 / 375 225 / 225 Indwelling Urethral Catheter 375 / 375 225 / 225 Wound Drainage 0 / 0 ZAMZAM Drain 0 / 0 Other: Other Intake Source Saline Solution # Voids 1 # Incontinent Voids 1 Date of Last Bowel Movement 11/14/17 11/14/17 11/14/17 # Bowel Movements 0 # Incontinent Bowel Movements 0 # Emeses 1 Result Diagrams: 11/15/17 05:25 11/15/17 05:25 Objective Remarks: GENERAL: Morbidly obese -[place]ub[place] female, intubated sedated with propofol HEENT: Normocephalic. Atraumatic. Pupils equal, round, reactive, conjugate. NECK: Trachea is midline. There is no JVD. CHEST: Equal chest rise. Orotracheally intubated. Air entry diminished at the bases CARDIOVASCULAR: Tachycardic rate . Regular rhythm. No murmurs ABDOMEN: Morbidly obese, soft. Lower abdominal area has open wound which is quite complex and has closed and stapled areas in the lower midline of the abdomen, and then a transverse area in the suprapubic region which is mostly opened down to the subcutaneous fat with cloudy drainage now. Another wound extends nearly over the right anterior hip region which also appears to be open and draining purulent drainage down into the subcutaneous fat. There are also areas down into the left anterior hip/thigh area also with some cloudy drainage. MUSCULOSKELETAL: Pulses 2+. Gross anasarca. NEUROLOGICAL: Intubated sedated, on lightening sedation patient does wake up and follow basic commands. Becomes very tachypneic on lightening sedation. No focal deficits Assessment and Plan - Assessment and Plan Plan: Assessment: 52-year-old female with an extensive recent medical history including multiple wound infections and severe acute protein calorie malnutrition who presents with recurrent severe sepsis and wound infection. In terms of her altered mental status, I think this is secondary to hypoglycemia which is certainly secondary to her lack of TPN because she pulled out her PICC line. Now that her glycemic control is improved, her mental status is back to baseline, and I do not see any concerning neuro symptoms that would suggest a stroke, seizure or any other neurologic finding. MRI negative for acute stoke. Wound has increasing cloudy drainage. She also appears quite intravascularly dry, but her anasarca suggest that she has significant protein malnutrition as well as total body hypervolemia. Concentrated albumin for resuscitation to restore her intravascular volume. Multiple organs have chronically failed. I agree with palliative care consult as despite her young age, her overall 1 year mortality rate is very high given that she has had almost no improvement at all in considerable worsening of her overall function and medical history while inpatient over the last few months. Active problems: Severe Sepsis Acute hypoxemic respiratory failure Metabolic encephalopathy Severe sepsis Severe C diff colitis Deep tissue wound infection lower abdomen and perineum Severe hypoglycemia-resolved Recommendations: The patient sedated with propofol and use fentanyl gtt for pain control Follow up cultures Meets criteria for severe C. difficile, creat >1.5, WBC >15K Continue p.o. vancomycin for C Diff, Difcid added by ID Concentrated albumin for IV resuscitation Continue IV antibiotics, Zyvox meropenem and micafungin. Levaquin DCd Advance tube feeds to goal Lower abdomen and perineal wound infections general surgery and ID following Frequent glycemic checks, D50 for hypoglycemia Frequent neurochecks Sinus tachycardia is likely compensatory mechanism and from Sirs response Overall prognosis appears poor with multiple comorbidities debility, sepsis from infected wounds are now with inability to protect airway and hypoxemic respiratory failure CCT 35 MIN Patient is critically ill but stable hemodynamically. Continue ICU care Code Status: Full
--- NOTE | 2017-11-15 15:58 | P.PNGS ---
Subjective Interval history: Called by [facility] [place] about concern for wound Also discussed with Wound Care team Physical Exam Vital signs: Vital Signs 11/14/17 16:00 11/14/17 17:01 11/14/17 19:00 Temperature 95.0 F L 94.6 F L Pulse Rate 105 H 99 H Respiratory Rate 34 H 15 16 Blood Pressure 170/81 H 115/58 L Pulse Oximetry 98 100 98 11/14/17 20:00 11/14/17 23:00 11/15/17 00:00 Temperature 94.1 F L 94 F L Pulse Rate 88 94 H Respiratory Rate 15 12 13 Blood Pressure 100/57 L 97/55 L Pulse Oximetry 100 96 97 11/15/17 04:00 11/15/17 07:37 11/15/17 08:00 Temperature 94.1 F L 94.1 F L Pulse Rate 94 H 94 H Respiratory Rate 16 19 18 Blood Pressure 102/58 L 103/66 Pulse Oximetry 99 100 100 11/15/17 10:00 11/15/17 12:00 11/15/17 12:47 Temperature 96.6 F L Pulse Rate 96 H 99 H Respiratory Rate 16 Blood Pressure 92/54 L Pulse Oximetry 99 99 11/15/17 14:00 Temperature Pulse Rate 118 H Respiratory Rate Blood Pressure Pulse Oximetry Intake & Output 11/14/17 11/15/17 11/15/17 18:59 06:59 18:59 Intake Total 3327 / 3327 1592 / 1592 650 / 650 Output Total 1830 / 1830 725 / 725 Balance 1497 / 1497 867 / 867 650 / 650 Weight 114 kg Intake: IV 500 / 500 650 / 650 650 / 650 Zyvox 600 mg Premix 300 ML @ 300 / 300 300 / 300 300 / 300 300 mls/hr IV.SIG Q12H [facility] Rx#: [id number] Merrem Inj 1,000 MG In NS Inj 100 / 100 100 / 100 100 / 100 100 ML @ 200 mls/hr IV.SIG Q12H [facility] Rx#:[id number] Mycamine Inj 100 MG In NS Inj 100 / 100 100 / 100 100 ML @ 100 mls/hr IV.SIG Q24H [facility] Rx#:[id number] fentaNYL 10 mcg/mL Premix Drip 250 / 250 2,500 mcg In 250 ml @ 50 MCG/HR 5 mls/hr IV.SIG TITRATE PRN Rx #:[id number] Oral 0 / 0 Oral Supplement 0 / 0 Tube Feeding 1247 / 1247 642 / 642 Tube Irrigant 120 / 120 Water Bolus Amount 260 / 260 300 / 300 Other 1200 / 1200 Output: Urine 125 / 125 Stool 1300 / 1300 500 / 500 Urine/Stool Mix 0 / 0 Estimated Blood Loss 30 / 30 Urine Amount (Catheter) 375 / 375 225 / 225 Indwelling Urethral Catheter 375 / 375 225 / 225 Wound Drainage 0 / 0 ZAMZAM Drain 0 / 0 Other: Other Intake Source Saline Solution # Voids 1 # Incontinent Voids 1 Date of Last Bowel Movement 11/14/17 11/14/17 11/14/17 # Bowel Movements 0 # Incontinent Bowel Movements 0 # Emeses 1 Narrative: Intubated Abd: midline incision with nedra; lower incision ---mild thick drainage---all dressings removed--RIGHT lateral area with packing LEFT medial thigh --- wound now open more - Urinary Catheter Management Female External Cath placed during this visit: no Indwelling Urethral Catheter Cath placed during this visit: yes, but has since been removed by the nurse Reason for continuing: Severe pressure ulcer/wound Insertion date: 10/09/17 Insertion time: 14:00 Removal date: 10/05/17 Removal time: 17:30 Assessment and Plan - Assessment (1) Fungal infection of skin of abdomen Code(s): B36.9 - Superficial mycosis, unspecified Status: Acute Plan: 52 year old female with large abdominal/thigh wounds -[place] [facility] [place]all[place] following -Continue aggressive wound care -Ensure that patient's wound are dry -Continue TF -Continue monitor temperature - Plan patient seen at bedside keep wound dry frequent dressing changes as needed ID following c.diff agressive tx - Attending Attestation The exam, history, and the medical decision-making described in the above note were completed with the assistance of the mid-level provider. I reviewed and agree with the findings presented. I attest that I had a [id number] encounter with the patient on the same day, and personally performed and documented my assessment and findings in the medical record.
[2017-11-15] MEDS: traZODone 100 MG Tablet PO SCH (21:23)
[2017-11-15] MEDS: Mirtazapine 15 MG Tablet PO SCH (21:24)
[2017-11-15] MEDS: Propofol 1000 mg/100 ml Inj 1,000 MG/100 ML BOTTLE IV.CONT PRN (21:25)
[2017-11-16] MEDS: fentaNYL 10 mcg/mL Premix Drip 2,500 MCG/250 ML BAG IV.SIG PRN ×3 (05:01→23:43)
[2017-11-16] MEDS: Propofol 1000 mg/100 ml Inj 1,000 MG/100 ML BOTTLE IV.CONT PRN (05:01)
[2017-11-16] MEDS: Oral Hygiene Kit OROPHARYNG SCH ×4 (05:01→23:45)
[2017-11-16] MEDS: Insulin NovoLOG Aspart Correctional Sugar Inj SQ SCH ×3 (05:01→23:44)
[2017-11-16] MEDS: Morphine Sulfate Inj 2 MG/ML Vial IV.PUSH PRN (05:02)
[2017-11-16 07:01] LABS: Baso # (Auto) 0.1 th/mm3 (0.0-0.2); Baso % (Auto) 0.4 % (0.0-2.0); Eos # (Auto) 0.3 th/mm3 (0.0-0.4); Eos % (Auto) 1.7 % (0.0-4.0); Lymph # (Auto) 2.5 th/mm3 (1.0-4.8); Lymph % (Auto) 14.6 % (9.0-44.0); Mean Corpuscular HGB Conc 34.2 % (32.0-36.0); Mean Corpuscular Hemoglobin 28.3 pg (27.0-34.0); Mean Corpuscular Volume 82.8 fL (80.0-100.0); Mean Platelet Volume 8.2 fL (7.0-11.0); Mono % (Auto) 5.8 % (0.0-8.0); Neut # (Auto) 13.1 th/mm3 (1.8-7.7); Neut % (Auto) 77.5 % (16.0-70.0); Platelet Count 86 th/mm3 (150-450); Red Blood Count 2.52 mil/mm3 (4.00-5.30); Red Cell Distribution Width 17.3 % (11.6-17.2)
[2017-11-16 07:16] LABS: Hematocrit 20.9 % (35.0-46.0); Hemoglobin 7.1 gm/dL (11.6-15.3)
[2017-11-16 07:27] LABS: Alanine Aminotransferase 17 U/L (10-53); Albumin 0.8 g/dL (3.4-5.0); Anion Gap 11 meq/L (5-15); Aspartate Aminotransferase 26 U/L (15-37); Blood Urea Nitrogen 41 mg/dL (7-18); Calcium 8.1 mg/dL (8.5-10.1); Chloride 113 meq/L (98-107); Glomerular Filtration Rate 28 mL/min (>89); Glucose,Random 65 mg/dL (74-106); Potassium 4.7 meq/L (3.5-5.1); Sodium 143 meq/L (136-145)
[2017-11-16 07:29] LABS: Alkaline Phosphatase 146 U/L (45-117); Total Protein 4.5 g/dL (6.4-8.2)
[2017-11-16 08:15] LABS: Eosinophils 1 % (0-4); Lymphocytes 14 % (9-44); Metamyelocytes 1 % (0-1); Monocytes 2 % (0-8); Promyelocyte 2 % (0-0); Tallied Nucleated RBC 2 (0-0); Toxic Granulation 1+
[2017-11-16 08:16] LABS: Platelet Morphology Normal (Normal); Target Cells 1+
[2017-11-16] MEDS: Chlorhexidine 0.12% Oral Kit 15 ML UDC OROPHARYNG SCH ×2 (08:40→20:00)
[2017-11-16] MEDS: Lactobacillus Acidophilus/L. Spores Tablet PO SCH ×2 (08:40→21:50)
[2017-11-16] MEDS: Pantoprazole Inj 40 MG Vial IV.PUSH SCH (08:40)
[2017-11-16] MEDS: Folic Acid 1 MG Tablet PO SCH (08:41)
[2017-11-16] MEDS: Heparin Central Flush 100 UNIT/ML 5 ML Vial IV.FLUSH SCH ×2 (08:43→08:55)
[2017-11-16] MEDS: Hypromellose 0.3% Opth Gel 10 GM Bottle EACH EYE SCH ×2 (08:54→23:44)
--- NOTE | 2017-11-16 09:34 | P.PNFP ---
Subjective Interval history: Patient seen and examined this morning. Per report, overnight patient's temperature decreased to 92 degrees. Patient also had episode of bradycardia to the 30s during turning and dressing change. Patient remains intubated and sedated, but is more alert this morning. Her leukocytosis continues to increase as well as her creatinine with low urine output. <CbChaz Silva - 11/16/17 09:50> Results - Labs Result diagrams: 11/17/17 05:45 11/17/17 05:45 <Maddy Jackson M - 11/17/17 11:30> Abnormal lab results 10/29/17 11/16/17 11/17/17 Range/Units 17:35 15:10 05:45 WBC 15.6 H (4.0-11.0) th/mm3 RBC 2.99 L (4.00-5.30) mil/mm3 Hgb 8.4 L (11.6-15.3) gm/dL Hct 24.9 L (35.0-46.0) % RDW 17.6 H (11.6-17.2) % Plt Count 87 L (150-450) th/mm3 Neut % (Auto) 76.8 H (16.0-70.0) % Neut # (Auto) 12.0 H (1.8-7.7) th/mm3 Band Neuts % (Manual) 28 H (0-6) % Abs Neuts (Manual) 12.8 H (1.8-7.7) th/mm3 Nucleated RBCs/100 WBC 2 H (0-0) /100 WBC Platelet Estimate Low L (Normal) Target Cells 1+ H (None) Chloride (98-107) meq/L Carbon Dioxide (21.0-32.0) meq/L BUN (7-18) mg/dL Creatinine (0.50-1.00) mg/dL Estimated GFR (>89) mL/min Calcium (8.5-10.1) mg/dL Alkaline Phosphatase (45-117) U/L Total Protein (6.4-8.2) g/dL Albumin (3.4-5.0) g/dL MTS Gel Crossmatch See Detail See Detail 11/17/17 Range/Units 05:45 WBC (4.0-11.0) th/mm3 RBC (4.00-5.30) mil/mm3 Hgb (11.6-15.3) gm/dL Hct (35.0-46.0) % RDW (11.6-17.2) % Plt Count (150-450) th/mm3 Neut % (Auto) (16.0-70.0) % Neut # (Auto) (1.8-7.7) th/mm3 Band Neuts % (Manual) (0-6) % Abs Neuts (Manual) (1.8-7.7) th/mm3 Nucleated RBCs/100 WBC (0-0) /100 WBC Platelet Estimate (Normal) Target Cells (None) Chloride 110 H (98-107) meq/L Carbon Dioxide 18.0 L (21.0-32.0) meq/L BUN 45 H (7-18) mg/dL Creatinine 2.48 H (0.50-1.00) mg/dL Estimated GFR 25 L (>89) mL/min Calcium 7.9 L (8.5-10.1) mg/dL Alkaline Phosphatase 142 H (45-117) U/L Total Protein 4.6 L (6.4-8.2) g/dL Albumin 0.8 L (3.4-5.0) g/dL MTS Gel Crossmatch Short CBC 11/17/17 Range/Units 05:45 WBC 15.6 H (4.0-11.0) th/mm3 Hgb 8.4 L (11.6-15.3) gm/dL Hct 24.9 L (35.0-46.0) % Plt Count 87 L (150-450) th/mm3 BMP 11/17/17 05:45 Sodium 140 Potassium 4.5 Chloride 110 H Carbon Dioxide 18.0 L BUN 45 H Creatinine 2.48 H Calcium 7.9 L Liver Function 11/17/17 Range/Units 05:45 Total Bilirubin 0.3 (0.2-1.0) mg/dL AST 24 (15-37) U/L ALT 16 (10-53) U/L Alkaline Phosphatase 142 H (45-117) U/L Albumin 0.8 L (3.4-5.0) g/dL <Maddy Jackson - 11/17/17 11:30> Abnormal lab results 11/16/17 11/16/17 Range/Units 05:17 05:17 WBC 17.0 H (4.0-11.0) th/mm3 RBC 2.52 L (4.00-5.30) mil/mm3 Hgb 7.1 L (11.6-15.3) gm/dL Hct 20.9 L* (35.0-46.0) % RDW 17.3 H (11.6-17.2) % Plt Count 86 L (150-450) th/mm3 Neut % (Auto) 77.5 H (16.0-70.0) % Neut # (Auto) 13.1 H (1.8-7.7) th/mm3 Owen # (Auto) 1.0 H (0.0-0.9) th/mm3 Band Neuts % (Manual) 12 H (0-6) % Promyelocytes % (Man) 2 H (0-0) % Abs Neuts (Manual) 13.9 H (1.8-7.7) th/mm3 Nucleated RBCs/100 WBC 2 H (0-0) /100 WBC Toxic Granulation 1+ H (None) Platelet Estimate Low L (Normal) Target Cells 1+ H (None) Chloride 113 H (98-107) meq/L Carbon Dioxide 19.0 L (21.0-32.0) meq/L BUN 41 H (7-18) mg/dL Creatinine 2.24 H (0.50-1.00) mg/dL Estimated GFR 28 L (>89) mL/min Random Glucose 65 L (74-106) mg/dL Calcium 8.1 L (8.5-10.1) mg/dL Alkaline Phosphatase 146 H (45-117) U/L Total Protein 4.5 L (6.4-8.2) g/dL Albumin 0.8 L (3.4-5.0) g/dL Short CBC 11/16/17 Range/Units 05:17 WBC 17.0 H (4.0-11.0) th/mm3 Hgb 7.1 L (11.6-15.3) gm/dL Hct 20.9 L* (35.0-46.0) % Plt Count 86 L (150-450) th/mm3 BMP 11/16/17 05:17 Sodium 143 Potassium 4.7 Chloride 113 H Carbon Dioxide 19.0 L BUN 41 H Creatinine 2.24 H Calcium 8.1 L Liver Function 11/16/17 Range/Units 05:17 Total Bilirubin 0.2 (0.2-1.0) mg/dL AST 26 (15-37) U/L ALT 17 (10-53) U/L Alkaline Phosphatase 146 H (45-117) U/L Albumin 0.8 L (3.4-5.0) g/dL <Vivar,Chaz H - 11/16/17 09:34> Physical Exam Vital signs: Vital Signs 11/16/17 12:00 11/16/17 12:09 11/16/17 14:00 Temperature 96.3 F L Pulse Rate 96 H 80 Respiratory Rate 11 L 8 L Blood Pressure 107/55 L Pulse Oximetry 100 100 11/16/17 15:56 11/16/17 16:00 11/16/17 18:00 Temperature 97.5 F L Pulse Rate 101 H 80 Respiratory Rate 10 L 16 Blood Pressure 91/52 L 82/54 L Pulse Oximetry 100 99 11/16/17 18:30 11/16/17 19:00 11/16/17 19:30 Temperature 97.0 F L 97.0 F L 97.2 F L Pulse Rate 83 98 H 103 H Respiratory Rate 25 H 21 19 Blood Pressure 91/63 L 90/57 L 95/64 L Pulse Oximetry 98 100 99 11/16/17 19:53 11/16/17 20:00 11/16/17 20:08 Temperature 97.2 F L 97.2 F L 97 F L Pulse Rate 106 H 102 H 103 H Respiratory Rate 11 L 16 14 Blood Pressure 95/64 L 103/57 L 103/57 L Pulse Oximetry 100 100 98 11/16/17 20:30 11/16/17 20:32 11/16/17 21:00 Temperature 97.0 F L 97.2 F L 97.0 F L Pulse Rate 101 H 99 H 99 H Respiratory Rate 13 10 L 12 Blood Pressure 107/62 107/62 90/55 L Pulse Oximetry 100 99 100 11/16/17 21:04 11/16/17 21:30 11/16/17 21:48 Temperature 97.0 F L 97 F L Pulse Rate 100 H 104 H Respiratory Rate 18 17 16 Blood Pressure 98/58 L 98/58 L Pulse Oximetry 100 100 100 11/16/17 22:00 11/16/17 22:30 11/16/17 23:00 Temperature 96.8 F L 97.0 F L 97.0 F L Pulse Rate 106 H 106 H 102 H Respiratory Rate 21 24 19 Blood Pressure 124/58 L 121/58 L 113/56 L Pulse Oximetry 100 100 100 11/16/17 23:30 11/17/17 00:00 11/17/17 00:30 Temperature 97.0 F L 97.2 F L 97.3 F L Pulse Rate 103 H 104 H 103 H Respiratory Rate 17 17 18 Blood Pressure 119/59 L 127/60 121/66 Pulse Oximetry 100 99 99 11/17/17 01:00 11/17/17 01:30 11/17/17 02:00 Temperature 97.5 F L 97.9 F 98.1 F Pulse Rate 109 H 111 H 110 H Respiratory Rate 18 16 20 Blood Pressure 137/62 119/58 L 117/58 L Pulse Oximetry 96 97 98 11/17/17 02:30 11/17/17 03:00 11/17/17 03:30 Temperature 98.4 F 98.4 F 98.6 F Pulse Rate 112 H 109 H 107 H Respiratory Rate 18 16 16 Blood Pressure 117/58 L 116/58 L 108/54 L Pulse Oximetry 99 98 98 11/17/17 04:00 11/17/17 04:01 11/17/17 04:30 Temperature 98.6 F 98.6 F 98.6 F Pulse Rate 109 H 103 H 109 H Respiratory Rate 24 21 16 Blood Pressure 151/68 H 121/58 L Pulse Oximetry 100 99 100 11/17/17 04:34 11/17/17 05:00 11/17/17 05:30 Temperature 98.6 F 98.1 F Pulse Rate 117 H 114 H Respiratory Rate 16 24 17 Blood Pressure 109/69 114/55 L Pulse Oximetry 100 98 99 11/17/17 06:00 11/17/17 06:30 11/17/17 07:00 Temperature 97.9 F 98.1 F 98.2 F Pulse Rate 111 H 112 H 100 H Respiratory Rate 16 18 17 Blood Pressure 109/57 L 126/58 L 110/54 L Pulse Oximetry 100 99 99 11/17/17 07:30 11/17/17 08:00 11/17/17 08:30 Temperature 98.4 F 98.6 F 99.0 F Pulse Rate 112 H 110 H 112 H Respiratory Rate 17 16 17 Blood Pressure 115/62 114/56 L 106/57 L Pulse Oximetry 99 99 99 11/17/17 09:00 11/17/17 09:30 11/17/17 10:00 Temperature 99.3 F 99.7 F H 99.7 F H Pulse Rate 115 H 119 H 117 H Respiratory Rate 16 16 16 Blood Pressure 122/60 123/58 L 117/57 L Pulse Oximetry 99 98 99 11/17/17 10:48 Temperature Pulse Rate 117 H Respiratory Rate Blood Pressure Pulse Oximetry Intake & Output 11/16/17 11/17/17 11/17/17 18:59 06:59 18:59 Intake Total 820 / 820 1531 / 1531 350 / 350 Output Total 400 / 400 400 / 400 Balance 420 / 420 1131 / 1131 350 / 350 Weight 115.9 kg Intake: IV 500 / 500 550 / 550 350 / 350 Zyvox 600 mg Premix 300 ML @ 300 / 300 300 / 300 300 mls/hr IV.SIG Q12H [facility] Rx#: [id number] Merrem Inj 1,000 MG In NS Inj 100 / 100 100 / 100 100 ML @ 200 mls/hr IV.SIG Q12H [facility] Rx#:[id number] Mycamine Inj 100 MG In NS Inj 100 / 100 100 ML @ 100 mls/hr IV.SIG Q24H [facility] Rx#:[id number] fentaNYL 10 mcg/mL Premix Drip 250 / 250 250 / 250 2,500 mcg In 250 ml @ 50 MCG/HR 5 mls/hr IV.SIG TITRATE PRN Rx #:[id number] Oral 0 / 0 Oral Supplement 0 / 0 Tube Feeding 220 / 220 461 / 461 Tube Irrigant 100 / 100 120 / 120 Water Bolus Amount 0 / 0 Intake (Blood Product) Amt 400 / 400 Rbc As-3 Leukoreduced Unit 400 / 400 [id number] Output: Stool 300 / 300 300 / 300 Urine Amount (Catheter) 100 / 100 100 / 100 Indwelling Urethral Catheter 100 / 100 100 / 100 Other: Date of Last Bowel Movement 11/16/17 11/17/17 11/17/17 <Maddy Jackson - 11/17/17 11:30> Vital Signs 11/15/17 10:00 11/15/17 12:00 11/15/17 12:47 Temperature 96.6 F L Pulse Rate 96 H 99 H Respiratory Rate 16 Blood Pressure 92/54 L Pulse Oximetry 99 99 11/15/17 14:00 11/15/17 16:00 11/15/17 17:00 Temperature 99.0 F 98.6 F Pulse Rate 118 H 110 H 117 H Respiratory Rate 15 14 Blood Pressure 94/50 L 99/55 L Pulse Oximetry 99 99 11/15/17 18:00 11/15/17 18:01 11/15/17 19:00 Temperature 98.2 F 98.2 F 98.1 F Pulse Rate 74 101 H 102 H Respiratory Rate 22 Blood Pressure Pulse Oximetry 100 100 99 11/15/17 19:01 11/15/17 20:00 11/15/17 22:00 Temperature 98.1 F 98.2 F Pulse Rate 104 H 97 H 98 H Respiratory Rate 15 Blood Pressure 115/56 L 100/50 L Pulse Oximetry 99 100 11/15/17 22:08 11/16/17 00:00 11/16/17 02:00 Temperature 96.8 F L Pulse Rate 99 H 84 Respiratory Rate 16 Blood Pressure 117/56 L Pulse Oximetry 99 100 11/16/17 04:00 11/16/17 06:00 11/16/17 08:36 Temperature 95.1 F L Pulse Rate 81 80 Respiratory Rate 16 16 Blood Pressure 98/51 L Pulse Oximetry 98 100 Intake & Output 11/15/17 11/16/17 11/16/17 18:59 06:59 18:59 Intake Total 1621 / 1621 983 / 983 Output Total 425 / 425 525 / 525 Balance 1196 / 1196 458 / 458 Weight 112.3 kg Intake: IV 650 / 650 700 / 700 Diprivan 1000 mg/100 ml Inj 1, 200 / 200 000 mg In 100 ml @ 5 MCG/KG/MIN 3.261 mls/hr IV.CONT TITRATE PRN Rx#:[id number] Zyvox 600 mg Premix 300 ML @ 300 / 300 300 mls/hr IV.SIG Q12H [facility] Rx#: [id number] Merrem Inj 1,000 MG In NS Inj 100 / 100 100 ML @ 200 mls/hr IV.SIG Q12H [facility] Rx#:[id number] Mycamine Inj 100 MG In NS Inj 100 / 100 100 ML @ 100 mls/hr IV.SIG Q24H [facility] Rx#:[id number] fentaNYL 10 mcg/mL Premix Drip 500 / 500 2,500 mcg In 250 ml @ 50 MCG/HR 5 mls/hr IV.SIG TITRATE PRN Rx #:[id number] Oral 0 / 0 Oral Supplement 0 / 0 Tube Feeding 771 / 771 233 / 233 Tube Irrigant 50 / 50 Water Bolus Amount 200 / 200 0 / 0 Anesthesia Amount 0 / 0 Other 0 / 0 Output: Urine 0 / 0 Stool 300 / 300 400 / 400 Urine/Stool Mix 0 / 0 Estimated Blood Loss 0 / 0 Urine Amount (Catheter) 125 / 125 125 / 125 Indwelling Urethral Catheter 125 / 125 125 / 125 Wound Drainage 0 / 0 ZAMZAM Drain 0 / 0 Other: Bladder Irrigation Fluid - Amount Instilled Indwelling Urethral Catheter 20 Other Intake Source Saline Solution # Voids 0 # Incontinent Voids 0 Date of Last Bowel Movement 11/14/17 11/16/17 # Bowel Movements 0 # Incontinent Bowel Movements 0 # Emeses 2 # Oral Regurgitations 2 <Chaz Vivar - 11/16/17 09:34> Narrative: GENERAL: Morbidly obese -[place] female lying in bed intubated and sedated with soft restraints intact. HEENT: Atraumatic, normocephalic. No rhinorrhea. ET tube in place. CARDIOVASCULAR: Tachycardic rate (baseline) and regular rhythm without obvious murmurs, gallops, or rubs. RESPIRATORY: Increased bilateral rhonchi throughout. Breath sounds difficult to auscultate due to body habitus and ventilator noise. No increased work of breathing. GASTROINTESTINAL: Abdomen diffuse, soft with soft bowel sounds likely due to body habitus. Rectal tube in place with liquid fecal material in reservoir, rectal tube with leaking material on to sacral area. Hopper catheter in place with minimal urinary output in reservoir. MUSCULOSKELETAL: No cyanosis. Increasing bilateral upper extremity 2+ edema. Stable bilateral lower extremity 2+ with increased firmness. Left knee effusion stable and nontender to palpation. SCDs in place. NEURO/PSYCH: Patient intubated and sedated. Responds to verbal stimuli with eye opening and is able to squeeze my hand on command. SKIN: Cool and dry. No rash. PICC line inserted without surrounding erythema, warmth, or other signs of infection. ABD wounds: Currently bandaged with areas of purulent drainage on the pelvic wounds. Tracking wounds packed. No signs of hemorrhage. All bandages damp from serosanguineous drainage. Increasing erythema with multiple sites of wound tracking along the abdominal fold and bilateral pelvic wounds extending into the mid thigh. <Chaz Vivar 11/16/17 09:50> - Urinary Catheter Management Female External Cath placed during this visit: no <Maddy Jackson 11/17/17 11:30> no <Chaz Vivar 11/16/17 15:40> Indwelling Urethral Catheter Cath placed during this visit: no <Maddy Jackson Alexis 11/17/17 11:30> yes, but has since been removed by the nurse <Chaz Vivar 11/16/17 15:40> Reason for continuing: Severe pressure ulcer/wound <Chaz Vivar 11/16/17 09:34> Insertion date: 10/09/17 <Chaz Vivar 11/16/17 09:34> Insertion time: 14:00 <Chaz Vivar 11/16/17 09:34> Removal date: 10/05/17 <Chaz Vivar 11/16/17 09:34> Removal time: 17:30 <Chaz Vivar 11/16/17 09:34> Assessment and Plan - Assessment (1) Respiratory failure Code(s): J96.90 - Respiratory failure, unspecified, unspecified whether with hypoxia or hypercapnia Status: Acute (2) Sepsis Code(s): A41.9 - Sepsis, unspecified organism Status: Acute (3) Open wound of abdominal wall Code(s): S31.109A - Unspecified open wound of abdominal wall, unspecified quadrant without penetration into peritoneal cavity, initial encounter Status : Acute (4) Aspiration into airway Code(s): T17.908A - Unspecified foreign body in respiratory tract, part unspecified causing other injury, initial encounter Status: Acute (5) C. difficile diarrhea Code(s): A04.72 - Enterocolitis due to Clostridium difficile, not specified as recurrent Status: Acute (6) Anemia Code(s): D64.9 - Anemia, unspecified Status: Resolved (7) Creatinine elevation Code(s): R79.89 - Other specified abnormal findings of blood chemistry Status : Acute (8) Thrombocytopenia Code(s): D69.6 - Thrombocytopenia, unspecified Status: Acute (9) Poor nutrition Code(s): E63.9 - Nutritional deficiency, unspecified Status: Acute (10) Schizophrenia Code(s): F20.9 - Schizophrenia, unspecified Status: Chronic (11) Altered mental status Code(s): R41.82 - Altered mental status, unspecified Status: Acute (12) Hypoglycemia Code(s): E16.2 - Hypoglycemia, unspecified Status: Resolved (13) Cellulitis of knee, left Code(s): L03.116 - Cellulitis of left lower limb Status: Acute (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 - Infection and inflammatory reaction due to unspecified internal joint prosthesis, initial encounter Status: Suspected (15) Hypokalemia Code(s): E87.6 - Hypokalemia Status: Resolved (16) Fall Code(s): W19.XXXA - Unspecified fall, initial encounter Status: Acute (17) Hypertension Code(s): I10 - Essential (primary) hypertension Status: Acute (18) Tachycardia Code(s): R00.0 - Tachycardia, unspecified Status: Chronic (19) Nutrition, metabolism, and development symptoms Code(s): R63.8 - Other symptoms and signs concerning food and fluid intake Status: Acute <Maddy Jackson - 11/17/17 11:30> (1) Respiratory failure Code(s): J96.90 - Respiratory failure, unspecified, unspecified whether with hypoxia or hypercapnia Status: Acute Plan: Patient with possible aspiration episode on 11/12/17 with subsequent acute respiratory failure requiring intubation -ABG 11/12/17:7.3/33/219/16 -CXR 11/15/17: Mild bibasilar consolidation, improved on the right and slightly worse on the left. -Patient intubated and sedated -[employer] Trawl [employer] consulted (2) Sepsis Code(s): A41.9 - Sepsis, unspecified organism Status: Acute Plan: Patient currently meeting sepsis criteria with core body temperature of approximately 94, leukocytosis, and tachycardia. Suspected site of infection as her extensive abdominal wounds. -Please see plan as below (3) Open wound of abdominal wall Code(s): S31.109A - Unspecified open wound of abdominal wall, unspecified quadrant without penetration into peritoneal cavity, initial encounter Status : Acute Plan: Large abdominal and pelvic wounds that appear not to be healing likely secondary to poor nutritional status -Wound Culture 09/27/17: Pseudomonas and Group B Step -Blood Cultures 10/24/17: Negative -Tissue Cultures 10/09/17: Negative -Abdominal wound culture 11/01/17: Group D Enterococcus, sensitive to Daptomycin ; Fungal species -Blood Culture 11/07/17 per TPN protocol: Negative to date -Blood Culture 11/12/17: NTD -PICC Line/Blood Cultures 11/15/17: Pending -Infectious disease consulted -General surgery consulted -Surgical debridement 10/09, wound VAC applied. -VAC changed 10/12 removed 10/15. -Debridement, irrigation, with suturing performed on 10/16. -I&D of abdomen and bilateral thighs, placement of Amniox with wound closure on 11/01/17 -Dressing changes per general surgery Medications: -Meropenem (11/13/17- ) -Micafungin (11/13/17- ) -Linezolid (11/13/17- ) Levaquin (11/10/17-11/15/17) -Daptomycin IV for suspected VRE per ID (11/03/17-11/13/17) -Cefepime IV (09/29/17-11/08/17) discontinued due to thrombocytopenia and elevated creatinine -Flagyl (11/10/17- ) -Diflucan 500mg daily (11/12/17) -Fentanyl added to assist with pain control (4) Aspiration into airway Code(s): T17.908A - Unspecified foreign body in respiratory tract, part unspecified causing other injury, initial encounter Status: Acute Plan: Patient with possible aspiration episode overnight 11/09/17 with another episode on 11/12/17. Patient now with respiratory failure as above -Chest x-ray 11/09/12: Interval development of left lower lobe consolidation -CXR 11/10/17: Left upper extremity PICC distal tip at the junction of the SVC and brachiocephalic vein. Bibasilar airspace opacity could represent atelectasis versus consolidation. -CXR 11/12/17: Interim intubation. Endotracheal tip at the shaka. Small effusion and mild consolidation developing at the right base. -Sputum cultures: Gram stain with rare gram positive cocci in pairs, many WBC, mucus; Culture with light growth of normal respiratory lisa at 24 hours. -CXR 11/15/17: Mild bibasilar consolidation, improved on the right and slightly worse on the left. Speech therapy consulted for swallow evaluation once extubated -ID consulted Medications: -Meropenem (11/13/17- ) -Micafungin (11/13/17- ) -Linezolid (11/13/17- ) Levaquin (11/10/17-11/15/17) -Flagyl (11/10/17-11/13/17) (5) C. difficile diarrhea Code(s): A04.72 - Enterocolitis due to Clostridium difficile, not specified as recurrent Status: Acute Plan: -C diff cultures positive 10/19/17 -Patient meeting criteria for severe C. difficile infection -Vancomycin PO 125 4 times daily (10/23/17- ) -Difficid 200mg BID (11/15/17- ) -Continue with probiotics. -Rectal tube in place (6) Anemia Code(s): D64.9 - Anemia, unspecified Status: Resolved Plan: -Patient found to have asymptomatic anemia H/H of 7/20.3 with MCV of 82 on -Rectal tube and Hopper catheter without any signs of acute bleeding -Dressings without obvious signs of bleeding -10 units total thus far during admission (10/30/17 most recent) -Continue to monitor (7) Creatinine elevation Code(s): R79.89 - Other specified abnormal findings of blood chemistry Status : Acute Plan: Patient with acute creatinine elevation with starting TPN. -Unknown etiology at this time -Patient with decreasing urinary output -Hopper exchanged for possible obstruction; patient with continued decreased output -Electrolytes WNL -Continue to monitor Creatinine (8) Thrombocytopenia Code(s): D69.6 - Thrombocytopenia, unspecified Status: Acute Plan: Patient with decreasing platelet count -Etiology unknown -No signs of acute bruising/bleeding on limited skin exam due to body habitus -Continue to monitor (9) Poor nutrition Code(s): E63.9 - Nutritional deficiency, unspecified Status: Acute Plan: -Patient with poor nutritional status during hospitalization -Severe concern of poor wound healing secondary to poor nutritional status -Shot Packer consulted for calorie count and nutritional guidance, which has been limited due to NPO status prior to surgery, however patient continues to have poor intake -Multivitamin IV added with Hermes supplementation BID -Albumin levels continued to be decreased -Patient unable to receive 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 Briefly discussed with surgery about the possibility of a JG tube versus surgical placement of PEG tube, deferred as patient will likely not heal from surgical procedure due to nutritional status -NG tube placed with vital 1.5 tube feeds started per dietary TPN, Clinimix E 08/05 @ 65 mls/hr with 20% lipids 250 mls 2x/week (11/07/17-) (10) Schizophrenia Code(s): F20.9 - Schizophrenia, unspecified Status: Chronic Plan: -Psychiatry consulted upon admission -Patient with increased agitation and disorientation on 11/09/17; during episode patient pulled PICC line and attempted to pull out rectal/Hopper; patient required 1 mg Haldol for agitation during episode -Psychiatry consulted for further evaluation Medications: -Haldol 1-2 mg IV/IM every 8 hours as needed for aggressive behavior/agitation -Continue Abilify 30 mg for psychosis -Continue buspirone 30 mg, trazodone 100 mg and Cymbalta 60 mg -Started Mirtazapine 15mg QHS to assist with mood as well as appetite stimulant -Hold anticholinergics per Psych (11) Altered mental status Code(s): R41.82 - Altered mental status, unspecified Status: Acute Plan: Patient with altered mental status overnight 11/11/17 with possible aspiration due to new dysphagia. Patient's mental status continues to decline with a GCS score of 10. Likely related to hypoglycemia as patient did not have access and was not able to receive nutrition via PICC line and is n.p.o. for failed swallow study. -CT Head: Interval enlargement of the ventricular system of uncertain etiology. No clear evidence of an obstructing process. Otherwise stable evaluation without evidence of acute infarct, hemorrhage, mass, or edema. -MRI wo contrast: Negative for acute process -Speech therapy consulted Neurology consulted, appreciate recommendations -No active neurological issues -[employer] Trawl Net consulted, appreciate recommendations Medications: -Glucagon given overnight -STAT buccal glucose given -TPN re-initiated -All PO medications placed on Hold -Haldol 1mg PRN for agitation/hallucinations -Lopressor 5mg IV PRN for HR >120 every 15min (12) Hypoglycemia Code(s): E16.2 - Hypoglycemia, unspecified Status: Resolved Plan: Patient presenting with altered mental status 11/11/17 Differential remains wide, however patient also with hypoglycemia likely contributing to mental status Patient currently n.p.o. due to dysphagia Patient has lost PICC line 2 and currently does not have IV access due to poor vasculature, therefore she has been unable to receive TPN, fluids, or antibiotics at this time Stat consult to IR for PICC line placement, DW Dr. 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 She completed rehabilitation and was discharged home August 23. Patient was on approximately 2 weeks of po Keflex 500 mg. Per Ortho, examination of left knee shows no evidence of infection. (15) Hypokalemia Code(s): E87.6 - Hypokalemia Status: Resolved Plan: -Patient with hypokalemia during hospitalization. Appears to be not tolerating ER capsules as they were found whole in her rectal tube reservoir. Medications: -Patient placed on ICU electrolyte protocol (16) Fall Code(s): W19.XXXA - Unspecified fall, initial encounter Status: Acute Plan: Patient with fall on 10/19/17. No loss of consciousness, no head injury, left knee and ankle pain. -Knee x-ray- Prosthesis in place, No abnormality appreciated -Ankle x-ray- No abnormality appreciated -Patient to continue with PT (17) Hypertension Code(s): I10 - Essential (primary) hypertension Status: Acute Plan: History of hypertension Hold oral medications below -Continue to monitor -Clonidine PRN for BP > 180/100 (18) Tachycardia Code(s): R00.0 - Tachycardia, unspecified Status: Chronic Plan: -Patient with chronic history of tachycardia -EKG 09/27/17: Sinus tachycardia with rate of [address] or interval changes. (Per medical team read) Medications: -Lopressor 5mg IV PRN for HR >120 if unable to tolerate PO -Continue home diltiazem and carvedilol (19) Nutrition, metabolism, and development symptoms Code(s): R63.8 - Other symptoms and signs concerning food and fluid intake Status: Acute Plan: Fluids: NG tube feeds with Vital 1.5 @ 50 mls/hr goal, plan to ween TPN with SSI as needed Electrolytes: Replete as needed per ICU protocol Nutrition: -Shot Packer consulted for nutritional guidance -NG tube placed and tube feeds started with vital 1.5 at 50 mils per hour (goal) -TPN Clinimix E 08/05 @ 65 mls/hr with 20% lipids 250 mls 2x/week (11/07/17- ); plan to wean as tolerated now that NG tube feeds have been initiated Vascular axis reconsulted for PICC line placement; placed in left upper extremity DVT prophylaxis: SCDs, Defer medical prophylaxis due to anemia Continue to work with OT/PT to improve ambulation <Chaz Vivar H - 11/16/17 15:39> - Assessment and Plan . <Chaz Vivar - 11/16/17 09:34> - Attending Attestation The exam, history, and the medical decision-making described in the above note were completed with the assistance of the resident physician. I reviewed and agree with the findings presented. I attest that I had a [id number] encounter with the patient on the same day, and personally performed and documented my assessment and findings in the medical record. called her and told him that she is increasingly ill. he was not aware that her kidneys were worsening. I discussed that she had refused to get up for at least a month and also was hiding the fact that she was not eating. I explained that it is extremely difficult to heal up if someone's nutrition is poor and also that the immune system was weak for that reason. He understands to some extent that she keeps worsening but does not want to stop treatment or consider something like hospice <Maddy Jackson M - 11/17/17 11:30> <Chaz Vivar H - Last Filed: 11/16/17 15:39> (1) Respiratory failure Qualifiers: Chronicity: acute (3) Open wound of abdominal wall Qualifiers: Encounter type: initial encounter Qualified Code(s): S31.109A - Unspecified open wound of abdominal wall, unspecified quadrant without penetration into peritoneal cavity, initial encounter (4) Aspiration into airway Qualifiers: Encounter type: initial encounter Qualified Code(s): T17.908A - Unspecified foreign body in respiratory tract, part unspecified causing other injury, initial encounter (6) Anemia Qualifiers: Anemia type: unspecified type Qualified Code(s): D64.9 - Anemia, unspecified (11) Altered mental status Qualifiers: Altered mental status type: unspecified Qualified Code(s): R41.82 - Altered mental status, unspecified (17) Hypertension Qualifiers: Hypertension type: essential hypertension Qualified Code(s): I10 - Essential (primary) hypertension <Maddy Jackson M - Last Filed: 11/17/17 11:30> (1) Respiratory failure Qualifiers: Chronicity: acute (3) Open wound of abdominal wall Qualifiers: Encounter type: initial encounter Qualified Code(s): S31.109A - Unspecified open wound of abdominal wall, unspecified quadrant without penetration into peritoneal cavity, initial encounter (4) Aspiration into airway Qualifiers: Encounter type: initial encounter Qualified Code(s): T17.908A - Unspecified foreign body in respiratory tract, part unspecified causing other injury, initial encounter (6) Anemia Qualifiers: Anemia type: unspecified type Qualified Code(s): D64.9 - Anemia, unspecified (11) Altered mental status Qualifiers: Altered mental status type: unspecified Qualified Code(s): R41.82 - Altered mental status, unspecified (17) Hypertension Qualifiers: Hypertension type: essential hypertension Qualified Code(s): I10 - Essential (primary) hypertension <Chaz Vivar - Last Filed: 11/16/17 15:39> (1) Respiratory failure Qualifiers: Chronicity: acute (3) Open wound of abdominal wall Qualifiers: Encounter type: initial encounter Qualified Code(s): S31.109A - Unspecified open wound of abdominal wall, unspecified quadrant without penetration into peritoneal cavity, initial encounter (4) Aspiration into airway Qualifiers: Encounter type: initial encounter Qualified Code(s): T17.908A - Unspecified foreign body in respiratory tract, part unspecified causing other injury, initial encounter (6) Anemia Qualifiers: Anemia type: unspecified type Qualified Code(s): D64.9 - Anemia, unspecified (11) Altered mental status Qualifiers: Altered mental status type: unspecified Qualified Code(s): R41.82 - Altered mental status, unspecified (17) Hypertension Qualifiers: Hypertension type: essential hypertension Qualified Code(s): I10 - Essential (primary) hypertension <Maddy Jackson - Last Filed: 11/17/17 11:30> (1) Respiratory failure Qualifiers: Chronicity: acute (3) Open wound of abdominal wall Qualifiers: Encounter type: initial encounter Qualified Code(s): S31.109A - Unspecified open wound of abdominal wall, unspecified quadrant without penetration into peritoneal cavity, initial encounter (4) Aspiration into airway Qualifiers: Encounter type: initial encounter Qualified Code(s): T17.908A - Unspecified foreign body in respiratory tract, part unspecified causing other injury, initial encounter (6) Anemia Qualifiers: Anemia type: unspecified type Qualified Code(s): D64.9 - Anemia, unspecified (11) Altered mental status Qualifiers: Altered mental status type: unspecified Qualified Code(s): R41.82 - Altered mental status, unspecified (17) Hypertension Qualifiers: Hypertension type: essential hypertension Qualified Code(s): I10 - Essential (primary) hypertension
[2017-11-16] MEDS: Duloxetine 60 MG DR Capsule PO SCH (11:12)
--- NOTE | 2017-11-16 11:30 | P.PNID ---
Subjective Remarks: ID coverage. 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 Post op it appears she was discharged to a rehab. She was discharged from the rehab to home with her on August 23. Patient reports she lives at home with her who is on disability. Unsure of nature of disability at this time and his ability to take care of her. She was reportedly able to ambulate on her own initially followed by weakness and need for walker and then to a point where she did not want to get out of bed. It has been reported to others that she had some discharge at the left surgical site area and ortho surgeon prescribed oral keflex which reportedly lead to some improvement. She reportedly completed a week of antibiotic treatment with last day scheduled for today with some improvement in her knee pain. However her stated that she was starting to have more drainage from her knee just over the past day or so. He had pointed to several areas that had been draining pus from just above and just below the knee. He stated that a cup full of pus would drain at a time. Additionally the abdominal fold wounds appear to have been present for atleast 3 weeks now. With this background patient presented to the ED with complaints of worsening shortness of breath and mental status accompanied with symptoms of diarrhea (3 days, non-bloody) and decreased p.o. intake (5 days). She was also brought into the hospital due to infection of her knee that improved with Keflex p.o but now has returned with new additional drainage over the past few days. ID consulted for evaluation and Mment of Left knee prosthetic joint infection and neutropenia. Patient underwent incision and debridement of the inferior abdominal wall and proximal inner thighs on 10/12/2017. Since then she has had multiple surgeries done, last one done 11/01, closure of wounds Receiving IV antibiotics for left knee infection/C difficile. CT scan showed small joint effusion and subcutaneous edema of the fat at the left knee. Notes reviewed D/W RN overnight events. Patient is currently on the ventilator. She is on CPAP. Continues to be hypothermic on a bear hugger. Currently receiving sedation. She is moving her extremities. Noted to have thick tenacious endotracheal secretions. Diarrhea ongoing via rectal tube. White blood cell count remain elevated. Antibiotics: Meropenem Zyvox Micafungin PO Vancomycin Lines: PICC Lines ok. Past Medical History: reviewed Allergies/Adverse Reactions: Allergies amoxicillin Allergy (Verified 09/27/17 17:54) Swelling Objective Vital Signs 11/15/17 12:00 11/15/17 12:47 11/15/17 14:00 Temperature 96.6 F L Pulse Rate 99 H 118 H Respiratory Rate 16 Blood Pressure 92/54 L Pulse Oximetry 99 99 11/15/17 16:00 11/15/17 17:00 11/15/17 18:00 Temperature 99.0 F 98.6 F 98.2 F Pulse Rate 110 H 117 H 74 Respiratory Rate 15 14 Blood Pressure 94/50 L 99/55 L Pulse Oximetry 99 99 100 11/15/17 18:01 11/15/17 19:00 11/15/17 19:01 Temperature 98.2 F 98.1 F 98.1 F Pulse Rate 101 H 102 H 104 H Respiratory Rate 22 Blood Pressure 115/56 L Pulse Oximetry 100 99 99 11/15/17 20:00 11/15/17 22:00 11/15/17 22:08 Temperature 98.2 F Pulse Rate 97 H 98 H Respiratory Rate 15 Blood Pressure 100/50 L Pulse Oximetry 100 99 11/16/17 00:00 11/16/17 02:00 11/16/17 04:00 Temperature 96.8 F L 95.1 F L Pulse Rate 99 H 84 81 Respiratory Rate 16 16 Blood Pressure 117/56 L 98/51 L Pulse Oximetry 100 98 11/16/17 06:00 11/16/17 08:00 11/16/17 08:01 Temperature 94.8 F L Pulse Rate 80 80 85 Respiratory Rate 16 Blood Pressure 97/53 L Pulse Oximetry 100 11/16/17 08:36 11/16/17 09:30 11/16/17 10:00 Temperature Pulse Rate Respiratory Rate 16 Blood Pressure 146/68 H 146/62 H Pulse Oximetry 100 Intake & Output 11/15/17 11/16/17 11/16/17 18:59 06:59 18:59 Intake Total 1621 / 1621 1283 / 1283 Output Total 425 / 425 525 / 525 Balance 1196 / 1196 758 / 758 Weight 112.3 kg Intake: IV 650 / 650 1000 / 1000 Diprivan 1000 mg/100 ml Inj 1, 200 / 200 000 mg In 100 ml @ 5 MCG/KG/MIN 3.261 mls/hr IV.CONT TITRATE PRN Rx#:[id number] Zyvox 600 mg Premix 300 ML @ 300 / 300 300 / 300 300 mls/hr IV.SIG Q12H REPLACED BY [facility] Rx#: [id number] Merrem Inj 1,000 MG In NS Inj 100 / 100 100 ML @ 200 mls/hr IV.SIG Q12H REPLACED BY [facility] Rx#:[id number] Mycamine Inj 100 MG In NS Inj 100 / 100 100 ML @ 100 mls/hr IV.SIG Q24H REPLACED BY [facility] Rx#:[id number] fentaNYL 10 mcg/mL Premix Drip 500 / 500 2,500 mcg In 250 ml @ 50 MCG/HR 5 mls/hr IV.SIG TITRATE PRN Rx #:[id number] Oral 0 / 0 Oral Supplement 0 / 0 Tube Feeding 771 / 771 233 / 233 Tube Irrigant 50 / 50 Water Bolus Amount 200 / 200 0 / 0 Anesthesia Amount 0 / 0 Other 0 / 0 Output: Urine 0 / 0 Stool 300 / 300 400 / 400 Urine/Stool Mix 0 / 0 Estimated Blood Loss 0 / 0 Urine Amount (Catheter) 125 / 125 125 / 125 Indwelling Urethral Catheter 125 / 125 125 / 125 Wound Drainage 0 / 0 ZAMZAM Drain 0 / 0 Other: Bladder Irrigation Fluid - Amount Instilled Indwelling Urethral Catheter 20 Other Intake Source Saline Solution # Voids 0 # Incontinent Voids 0 Date of Last Bowel Movement 11/14/17 11/16/17 11/16/17 # Bowel Movements 0 # Incontinent Bowel Movements 0 # Emeses 2 # Oral Regurgitations 2 11/15/17 13:10 Blood - Line Aerobic Blood Culture - Preliminary No growth in 1 day 11/15/17 13:10 Blood - Line Anaerobic Blood Culture - Preliminary No growth in 1 day 11/15/17 12:30 Blood - Peripheral Aerobic Blood Culture - Preliminary No growth in 1 day 11/15/17 12:30 Blood - Peripheral Anaerobic Blood Culture - Preliminary No growth in 1 day 11/15/17 12:35 Blood - Peripheral Aerobic Blood Culture - Preliminary No growth in 1 day 11/15/17 12:35 Blood - Peripheral Anaerobic Blood Culture - Preliminary No growth in 1 day 11/12/17 12:20 Blood - Peripheral Aerobic Blood Culture - Preliminary No growth in 4 days 11/12/17 12:20 Blood - Peripheral Anaerobic Blood Culture - Preliminary No growth in 4 days 11/12/17 12:25 Blood - Peripheral Aerobic Blood Culture - Preliminary No growth in 4 days 11/12/17 12:25 Blood - Peripheral Anaerobic Blood Culture - Preliminary No growth in 4 days 11/01/17 17:45 Wound - Abdominal Acid Fast Bacilli Smear - Final No acid fast bacilli seen 11/01/17 17:45 Wound - Abdominal Mycobacterial Culture - Preliminary No growth in 2 weeks 11/13/17 12:30 Sputum - Endotracheal Gram Stain - Final 11/13/17 12:30 Sputum - Endotracheal Sputum Culture - Final Light growth normal respiratory lisa 10/09/17 15:49 Tissue - Abdominal Acid Fast Bacilli Smear - Final No acid fast bacilli seen 10/09/17 15:49 Tissue - Abdominal Mycobacterial Culture - Preliminary No growth in 5 weeks 11/01/17 17:45 Wound - Abdominal Fungal Smear - Final No fungal elements seen 11/01/17 17:45 Wound - Abdominal Fungal Culture - Preliminary Susy glabrata 11/08/17 09:40 Blood - Other Aerobic Blood Culture - Final No growth in 5 days 11/08/17 09:40 Blood - Other Anaerobic Blood Culture - Final No growth in 5 days 11/08/17 06:50 Blood - Other Aerobic Blood Culture - Final No growth in 5 days 11/08/17 06:50 Blood - Other Anaerobic Blood Culture - Final No growth in 5 days Lab - Hematology Results 11/14/17 11/15/17 11/16/17 10:37 05:25 05:17 WBC 15.7 H 17.0 H RBC 2.61 L 2.52 L Hgb 7.7 L 7.1 L Hct 22.1 L 20.9 L* MCV 84.6 82.8 MCH 29.4 28.3 MCHC 34.8 34.2 RDW 17.4 H 17.3 H Plt Count 78 L 86 L MPV 7.7 8.2 Prelim Diff (Auto) Slide review pending Neut % (Auto) 77.5 H Lymph % (Auto) 14.6 Leon % (Auto) 5.8 Eos % (Auto) 1.7 Baso % (Auto) 0.4 Neut # (Auto) 13.1 H Lymph # (Auto) 2.5 Leon # (Auto) 1.0 H Eos # (Auto) 0.3 Baso # (Auto) 0.1 WBC Differential Manual diff final Manual diff final Seg Neuts % (Manual) 67 67 Band Neuts % (Manual) 13 H 12 H Lymphocytes % (Manual) 15 14 Monocytes % (Manual) 3 2 Eosinophils % (Manual) 2 1 Basophils % (Manual) 1 Metamyelocytes % (Man) 1 Promyelocytes % (Man) 2 H Abs Neuts (Manual) 12.1 H 13.9 H Nucleated RBCs/100 WBC 3 H 2 H Differential Comment . Toxic Granulation 1+ H Toxic Vacuolation Present H Platelet Estimate Low L Low L Platelet Morphology Normal Normal Spherocytes Occ H Target Cells 1+ H 1+ H Lab - Chemistry Results 11/14/17 11/14/17 11/14/17 10:37 12:46 16:41 Sodium Potassium Chloride Carbon Dioxide Anion Gap BUN Creatinine Estimated GFR POC Glucose 148 H 154 H Random Glucose Calcium Total Bilirubin 0.2 AST ALT Alkaline Phosphatase 161 H Total Protein 4.6 L Albumin 11/14/17 11/15/17 11/15/17 23:43 05:22 05:25 Sodium 140 Potassium 4.1 Chloride 113 H Carbon Dioxide 19.9 L Anion Gap 7 BUN 31 H Creatinine 1.89 H Estimated GFR 34 L POC Glucose 118 H 94 Random Glucose 95 Calcium 7.8 L Total Bilirubin 0.3 AST 35 ALT 23 Alkaline Phosphatase 173 H Total Protein 4.4 L Albumin 0.8 L 11/15/17 11/15/17 11/15/17 12:22 17:07 23:23 Sodium Potassium Chloride Carbon Dioxide Anion Gap BUN Creatinine Estimated GFR POC Glucose 98 101 72 Random Glucose Calcium Total Bilirubin AST ALT Alkaline Phosphatase Total Protein Albumin 11/16/17 11/16/17 11/16/17 04:58 05:17 06:41 Sodium 143 Potassium 4.7 Chloride 113 H Carbon Dioxide 19.0 L Anion Gap 11 BUN 41 H Creatinine 2.24 H Estimated GFR 28 L POC Glucose 70 80 Random Glucose 65 L Calcium 8.1 L Total Bilirubin 0.2 AST 26 ALT 17 Alkaline Phosphatase 146 H Total Protein 4.5 L Albumin 0.8 L Imaging: ITS Impressions Tibia/Fibula X-Ray 09/27/17 00:00 CONCLUSION: No acute left leg abnormality is identified. Abdomen/Pelvis CT 09/27/17 08:10 CONCLUSION: 1. Mild hepatic steatosis. 2. Thickening of the colon secondary to lack of distention versus colitis. 3. Left lower lobe consolidation and/or atelectasis. There does appear to be a 1.4 cm cavitary area which makes consolidation likely. Chest CTA 09/27/17 08:22 CONCLUSION: 1. No pulmonary embolus. 2. Consolidation or atelectasis at the left lower lobe. Knee CT 10/18/17 00:00 CONCLUSION: 1. Small joint effusion. 2. Nonspecific subcutaneous edema in the subcutaneous soft tissues above and below the knee. 3. No significant changes compared to the prior exam. Ankle X-Ray 10/19/17 00:00 CONCLUSION: 1. No acute fracture or dislocation. Knee X-Ray 10/19/17 00:00 CONCLUSION: 1. Total knee prosthesis in place. 2. Moderate-sized knee joint effusion. Head CT 11/10/17 00:00 CONCLUSION: 1. Interval enlargement of the ventricular system of uncertain etiology. There is no clear evidence of an obstructing process. 2. Otherwise stable evaluation without evidence of acute infarct, hemorrhage, mass or edema. . Venous Doppler Study 11/10/17 00:00 CONCLUSION: 1. No venous thrombosis is identified within either lower extremity. 2. As described above, secondary to open wounds, the left external iliac, common femoral vein, and greater saphenous veins were not adequately evaluated. Head MRI 11/11/17 00:00 CONCLUSION: 1. Motion artifact is present throughout the scan. 2. Examination is diagnostic. 3. No evidence of acute infarct, hemorrhage, mass or edema. PICC Line Insertion 11/11/17 08:51 CONCLUSION: 1. Uncomplicated central venous Power PICC line placement. 2. The PICC line can be used immediately. Chest X-Ray 11/15/17 06:00 CONCLUSION: Mild bibasilar consolidation, improved on the right and slightly worse on the left. Lines and tubes as above. Physical Exam: GENERAL: On the vent, NAD. Has warming blanket. Not following commands. Not fully open and eyes. HEENT: Pupils reactive to light. Extraocular movements intact. No icterus. Orally intubated NECK: Supple without adenopathy. No swelling. LUNGS: Decreased breath sounds. HEART: Regular S1 and S2. ABDOMEN: Obese, soft. Nontender. Groin and abdominal area with sutures in place and dressing with some weeping of serous discharge noted.Tunneling noted in the center of the abdomen. There is a large open wound in medial upper L thigh, no purulence. Sacral area with abrasion noted. EXTREMITIES: Diffuse edema of the extremities. SKIN: No diffuse rash. NEUROLOGIC: Sedated. Moving extremities. Not following commands. PSYCH: Unable to assess LINE: No evidence of infection Assessment and Plan - Plan IMPRESSION: Sepsis. Neutropenic sepsis on admission Abdominal fold cellulitis/skin breakdown. Post incision and debridement and closure of skin fold. General surgery following. s/p panniculectomy. Groin cellulitis, Mons pubis cellulitis/skin breakdown. Leucopenia, pancytopenia: ? MTX, ? Psych meds, ? Sepsis contributing. resolved. Left knee hardware in place. CT with fluid collection. Left knee infection - prior wound culture had Pseudomonas and group B beta strep. PSAE, VRE and Susy glabrata infection of the abdominal wound. Severe Cdiff - Positive PCR C. difficile. Acute resp failure, likely aspiration PNA Acute metabolic encephalopathy: sepsis. RECOMMENDATIONS: Continue Zyvox for MRSA and VRE coverage Continue Meropenem for broader GNR coverage till cultures finalized. Continue Micafungin IV for c.glabrata infection and concern for new line fungemia. Continue po Vanco for C diff. Continue Dificid for severe Cdiff as patient on concomitant antibiotics. Follow blood cultures. Monitor progress D/W VAN
--- NOTE | 2017-11-16 13:24 | P.DIET ---
Nutritional Evaluation Type of nutrition evaluation: follow-up Nutrition consult regarding: Tube Feeding, TPN/PPN Nutrition screening: [facility] (10/31 Calorie counting. 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 Objective - Diagnosis Sepsis, Anemia, Neutropenia - Objective % IBW: 241 (IBW = 98#) Body Weight Used for Calculations: Upper end of IBW (49 kg) Energy Needs - Lower Range (kCal/kg): 30 Energy Needs - Upper Range (kCal/kg): 35 Lower Limit kCal/kg (kCals): 1,470 Upper Limit kCal/kg (kCals): 1,715 Lower Limit Protein Factor (Grams per Kg): 1.0 Upper Limit Protein Factor (Grams per Kg): 1.5 Lower Protein Needs (Protein): 49 Upper Protein Needs (Protein): 74 Fluid Factor (ml/kg): 35 Estimated Fluid Needs (ml): 1,715 Dietitian Reviewed in Medical Record: Current diet, Curent medications, Intake & Output, Labs, Medical history, Wound/DTI Wound Care Note: Per Wound Management Note: R and L perineal area- stage 3 Pt also has an open abdominal wound Objective Comments: -Surgical debridement 10/09, wound VAC applied. -VAC changed 10/12 removed 10/15. -Debridement, irrigation, with suturing performed on 10/16. -I&D of abdomen and bilateral thighs, placement of Amniox with wound closure on 11/01/17 Feeding - Current Tube Feeding Tube Feeding Product: Vital 1.5 Tube Feeding Rate: 20 Tube Feeding Route: nasogastric Diprivan Rate: 3 Lipid kCals From Diprivan: 79 Assessment Assessment: Transferred to [facility] and intubated the evening of the . TPN has been d/c'ed. TFing initiated on 11/14. To meet needs with TF, recommend Vital 1.5 @ 50 mls/hr to provide 1800 kcals, 81 gms protein and 917 mls of free water. Labs, wts and clinical course reviewed. CBW = 112.3 Please note that PREALB/ALBUMIN are no longer considered indicators for malnutrition. They are acute phase proteins and reflect severity of inflammation response rather than nutritional status. They do not respond to feeding interventions Recommendations: Vital 1.5 @ 50 mls/hr goal Dietitian to Monitor: Lab values, Tube feeding tolerance, Weight change, Wound/ skin status, Medical course
--- NOTE | 2017-11-16 13:32 | P.PNGS ---
Subjective Patient reports: no new complaints (intubated sedated) Physical Exam Vital signs: Vital Signs 11/15/17 14:00 11/15/17 16:00 11/15/17 17:00 Temperature 99.0 F 98.6 F Pulse Rate 118 H 110 H 117 H Respiratory Rate 15 14 Blood Pressure 94/50 L 99/55 L Pulse Oximetry 99 99 11/15/17 18:00 11/15/17 18:01 11/15/17 19:00 Temperature 98.2 F 98.2 F 98.1 F Pulse Rate 74 101 H 102 H Respiratory Rate 22 Blood Pressure Pulse Oximetry 100 100 99 11/15/17 19:01 11/15/17 20:00 11/15/17 22:00 Temperature 98.1 F 98.2 F Pulse Rate 104 H 97 H 98 H Respiratory Rate 15 Blood Pressure 115/56 L 100/50 L Pulse Oximetry 99 100 11/15/17 22:08 11/16/17 00:00 11/16/17 02:00 Temperature 96.8 F L Pulse Rate 99 H 84 Respiratory Rate 16 Blood Pressure 117/56 L Pulse Oximetry 99 100 11/16/17 04:00 11/16/17 06:00 11/16/17 08:00 Temperature 95.1 F L Pulse Rate 81 80 80 Respiratory Rate 16 Blood Pressure 98/51 L Pulse Oximetry 98 11/16/17 08:01 11/16/17 08:36 11/16/17 09:30 Temperature 94.8 F L Pulse Rate 85 Respiratory Rate 16 16 Blood Pressure 97/53 L 146/68 H Pulse Oximetry 100 100 11/16/17 10:00 11/16/17 12:00 11/16/17 12:09 Temperature 96.3 F L Pulse Rate 80 96 H Respiratory Rate 11 L 8 L Blood Pressure 146/62 H 107/55 L Pulse Oximetry 100 100 Intake & Output 11/15/17 11/16/17 11/16/17 18:59 06:59 18:59 Intake Total 1621 / 1621 1383 / 1383 Output Total 425 / 425 525 / 525 Balance 1196 / 1196 858 / 858 Weight 112.3 kg Intake: IV 650 / 650 1100 / 1100 Diprivan 1000 mg/100 ml Inj 1, 200 / 200 000 mg In 100 ml @ 5 MCG/KG/MIN 3.261 mls/hr IV.CONT TITRATE PRN Rx#:[id number] Zyvox 600 mg Premix 300 ML @ 300 / 300 300 / 300 300 mls/hr IV.SIG Q12H [facility] Rx#: [id number] Merrem Inj 1,000 MG In NS Inj 100 / 100 100 / 100 100 ML @ 200 mls/hr IV.SIG Q12H [facility] Rx#:[id number] Mycamine Inj 100 MG In NS Inj 100 / 100 100 ML @ 100 mls/hr IV.SIG Q24H [facility] Rx#:[id number] fentaNYL 10 mcg/mL Premix Drip 500 / 500 2,500 mcg In 250 ml @ 50 MCG/HR 5 mls/hr IV.SIG TITRATE PRN Rx #:[id number] Oral 0 / 0 Oral Supplement 0 / 0 Tube Feeding 771 / 771 233 / 233 Tube Irrigant 50 / 50 Water Bolus Amount 200 / 200 0 / 0 Anesthesia Amount 0 / 0 Other 0 / 0 Output: Urine 0 / 0 Stool 300 / 300 400 / 400 Urine/Stool Mix 0 / 0 Estimated Blood Loss 0 / 0 Urine Amount (Catheter) 125 / 125 125 / 125 Indwelling Urethral Catheter 125 / 125 125 / 125 Wound Drainage 0 / 0 ZAMZAM Drain 0 / 0 Other: Bladder Irrigation Fluid - Amount Instilled Indwelling Urethral Catheter 20 Other Intake Source Saline Solution # Voids 0 # Incontinent Voids 0 Date of Last Bowel Movement 11/14/17 11/16/17 11/16/17 # Bowel Movements 0 # Incontinent Bowel Movements 0 # Emeses 2 # Oral Regurgitations 2 - Routine Abdominal Exam Present: soft (incisions well approximated serous drainage from lateral incision site) - Routine Extremities Exam Present: edema (left thigh dehiscence) - Urinary Catheter Management Female External Cath placed during this visit: no Indwelling Urethral Catheter Cath placed during this visit: yes, but has since been removed by the nurse Reason for continuing: Severe pressure ulcer/wound Insertion date: 10/09/17 Insertion time: 14:00 Removal date: 10/05/17 Removal time: 17:30 Assessment and Plan - Assessment (1) Fungal infection of skin of abdomen Code(s): B36.9 - Superficial mycosis, unspecified Status: Acute Plan: 52 year old female with large abdominal/thigh wounds -Now intubated in [facility] [place] -Palliative Care following -Continue aggressive wound care -Ensure that patient's wound are dry -Continue TF -Continue monitor temperature - Plan s/p I and D with closure, critical dressing changes keep incisions dry, continue wound care, tx for c diff- ID following, fungal cx positive keep wounds clear of stool, continue dressing changes wet to dry to center and LLE, dry dressing at other incisions, nopening of left thigh continue wet to dry dressing agree with tube feedings restrains if needed, select transfer on hold until pt improves consider ct scan if renal fxn improves
--- NOTE | 2017-11-16 14:56 | P.PNCC ---
Subjective Subjective Remarks/Hospital Course: This is a 52-year-old female with a very complex medical history who was admitted back in September 2017 for postoperative wound infection from her total knee arthroplasty. Her course has been complicated by multiple necrotizing soft tissue infections. She additionally has failure to thrive and severe acute protein calorie malnutrition for which she has been on total parenteral nutrition. She intermittently becomes agitated and pulls out her IV access. Today she was on the floor when she became worsening the febrile and altered. She pulled out her own PICC line overnight, and nursing staff was unable to reobtain IV access. Because she was off TPN she became quite hypoglycemic which was refractory to non-intravenous methods of glucose administration. Urgently a new PICC line was placed by interventional radiology and she was given IV dextrose. When her glucose improved, her mental status improved as well. She is transferred to the ICU for management of worsening recurrent sepsis, worsening wound infection, and hypoglycemia. When I evaluated the patient, she was more awake, nonfocal, moving all extremities. She endorses fatigue, but denies other symptoms. She specifically denies chest pain, shortness of breath, fever, chills, nausea, vomiting, abdominal pain. She does endorse diarrhea and has a rectal tube in place. She has a recent history of active C. difficile infection. Remainder of the review systems is negative unless otherwise stated. SUBJ 11/12: Lying in bed no acute distress intermittently confused but follows commands, pleasant. WBC count stable at 11.7. On TPN hypoglycemia has resolved. Discussed with Dr. Schneider 11/13: Intubated and placed on mechanical ventilation yesterday evening for desaturation and lack of airway protection. Creatinine has increased to 1.5 potassium is 2.8 getting replaced. On light sedation patient does follow commands. Antibiotics have been broadened to Zyvox meropenem and Levaquin and micafungin. Continue p.o. vancomycin for C Diff 11/14: Patient intubated sedated with propofol. Wakes up follows some commands but did not tolerate CPAP due to tachypnea. WBC count worsening currently 15.1. Also worsening creatinine 1.8. Some evidence of worsening wound infection in the lower abdomen pelvic region. Lower abdominal and left thigh incisions with increasing drainage 11/15: Remains intubated, sedated, becoming more septic and hypothermic. WBC count is 15.7 creatinine is 1.9 meets criteria for severe C. difficile colitis. Infectious disease following, currently on p.o. vancomycin for C. difficile ID is adding Dificid to the regimen. If not clinically improving need CT of the abdomen pelvis. Worsening sepsis most likely from worsening C. difficile than wound infection 11/16: Continued persistent hypotension. Discussed with Surgical Service. Acts like continued septic course. No other major changes. Will require transfusion soon. Objective Vital Signs / I&O: Vital Signs 11/15/17 16:00 11/15/17 17:00 11/15/17 18:00 Temperature 99.0 F 98.6 F 98.2 F Pulse Rate 110 H 117 H 74 Respiratory Rate 15 14 Blood Pressure 94/50 L 99/55 L Pulse Oximetry 99 99 100 11/15/17 18:01 11/15/17 19:00 11/15/17 19:01 Temperature 98.2 F 98.1 F 98.1 F Pulse Rate 101 H 102 H 104 H Respiratory Rate 22 Blood Pressure 115/56 L Pulse Oximetry 100 99 99 11/15/17 20:00 11/15/17 22:00 11/15/17 22:08 Temperature 98.2 F Pulse Rate 97 H 98 H Respiratory Rate 15 Blood Pressure 100/50 L Pulse Oximetry 100 99 11/16/17 00:00 11/16/17 02:00 11/16/17 04:00 Temperature 96.8 F L 95.1 F L Pulse Rate 99 H 84 81 Respiratory Rate 16 16 Blood Pressure 117/56 L 98/51 L Pulse Oximetry 100 98 11/16/17 06:00 11/16/17 08:00 11/16/17 08:01 Temperature 94.8 F L Pulse Rate 80 80 85 Respiratory Rate 16 Blood Pressure 97/53 L Pulse Oximetry 100 11/16/17 08:36 11/16/17 09:30 11/16/17 10:00 Temperature Pulse Rate 80 Respiratory Rate 16 Blood Pressure 146/68 H 146/62 H Pulse Oximetry 100 11/16/17 12:00 11/16/17 12:09 Temperature 96.3 F L Pulse Rate 96 H Respiratory Rate 11 L 8 L Blood Pressure 107/55 L Pulse Oximetry 100 100 Intake & Output 11/15/17 11/16/17 11/16/17 18:59 06:59 18:59 Intake Total 1621 / 1621 1383 / 1383 Output Total 425 / 425 525 / 525 Balance 1196 / 1196 858 / 858 Weight 112.3 kg Intake: IV 650 / 650 1100 / 1100 Diprivan 1000 mg/100 ml Inj 1, 200 / 200 000 mg In 100 ml @ 5 MCG/KG/MIN 3.261 mls/hr IV.CONT TITRATE PRN Rx#:[id number] Zyvox 600 mg Premix 300 ML @ 300 / 300 300 / 300 300 mls/hr IV.SIG Q12H [facility] Rx#: [id number] Merrem Inj 1,000 MG In NS Inj 100 / 100 100 / 100 100 ML @ 200 mls/hr IV.SIG Q12H [facility] Rx#:[id number] Mycamine Inj 100 MG In NS Inj 100 / 100 100 ML @ 100 mls/hr IV.SIG Q24H [facility] Rx#:[id number] fentaNYL 10 mcg/mL Premix Drip 500 / 500 2,500 mcg In 250 ml @ 50 MCG/HR 5 mls/hr IV.SIG TITRATE PRN Rx #:[id number] Oral 0 / 0 Oral Supplement 0 / 0 Tube Feeding 771 / 771 233 / 233 Tube Irrigant 50 / 50 Water Bolus Amount 200 / 200 0 / 0 Anesthesia Amount 0 / 0 Other 0 / 0 Output: Urine 0 / 0 Stool 300 / 300 400 / 400 Urine/Stool Mix 0 / 0 Estimated Blood Loss 0 / 0 Urine Amount (Catheter) 125 / 125 125 / 125 Indwelling Urethral Catheter 125 / 125 125 / 125 Wound Drainage 0 / 0 ZAMZAM Drain 0 / 0 Other: Bladder Irrigation Fluid - Amount Instilled Indwelling Urethral Catheter 20 Other Intake Source Saline Solution # Voids 0 # Incontinent Voids 0 Date of Last Bowel Movement 11/14/17 11/16/17 11/16/17 # Bowel Movements 0 # Incontinent Bowel Movements 0 # Emeses 2 # Oral Regurgitations 2 Result Diagrams: 11/16/17 05:17 11/16/17 05:17 Objective Remarks: GENERAL: Morbidly obese -Citizen Of [place] female, intubated sedated with propofol HEENT: Normocephalic. Atraumatic. Pupils equal, round, reactive, conjugate. NECK: Trachea is midline. Orally intubated. CHEST: Equal chest rise. Orotracheally intubated. Air entry diminished at the bases CARDIOVASCULAR: Tachycardic rate . Regular rhythm. No murmurs, no JVD. ABDOMEN: Morbidly obese, soft. Lower abdominal area has complex open wound, stapled areas in the lower midline of the abdomen, and then a transverse area in the suprapubic region which is mostly opened down to the subcutaneous fat with persistent cloudy drainage now. Another wound extends nearly over the right anterior hip region which also appears to be open and draining purulent drainage down into the subcutaneous fat. There are also areas down into the left anterior hip/thigh area also with some cloudy drainage. MUSCULOSKELETAL: Pulses 2+. Gross anasarca. NEUROLOGICAL: Intubated sedated, on light sedation. Patient does wake up and follow basic commands. No focal deficits Assessment and Plan - Assessment and Plan Plan: Assessment: 52-year-old female with an extensive recent medical history including multiple wound infections and severe acute protein calorie malnutrition who presents with recurrent severe sepsis and wound infection. In terms of her altered mental status, I think this is secondary to hypoglycemia which is certainly secondary to her lack of TPN because she pulled out her PICC line. Now that her glycemic control is improved, her mental status is back to baseline, and I do not see any concerning neuro symptoms that would suggest a stroke, seizure or any other neurologic finding. MRI negative for acute stoke. Wound has increasing cloudy drainage. She also appears quite intravascularly dry, but her anasarca suggest that she has significant protein malnutrition as well as total body hypervolemia. Concentrated albumin for resuscitation to restore her intravascular volume. Multiple organs have chronically failed. I agree with palliative care consult as despite her young age, her overall 1 year mortality rate is very high given that she has had almost no improvement at all in considerable worsening of her overall function and medical history while inpatient over the last few months. Active problems: Severe Sepsis Acute hypoxemic respiratory failure Metabolic encephalopathy Severe sepsis Severe C diff colitis Deep tissue wound infection lower abdomen and perineum Severe hypoglycemia-resolved Plan: Sedated with propofol and use fentanyl gtt for pain control Follow up cultures Meets criteria for severe C. difficile, creat >1.5, WBC >15K Continue p.o. vancomycin for C Diff, Difcid added by ID Concentrated albumin for IV resuscitation Continue IV antibiotics, Zyvox meropenem and micafungin. Levaquin DCd Advance tube feeds to goal Lower abdomen and perineal wound infections general surgery and ID following Frequent glycemic checks, D50 for hypoglycemia Frequent neurochecks Sinus tachycardia is likely compensatory mechanism and from Sirs response Anemia -> transfuse Overall: prognosis remains poor with multiple comorbidities debility, sepsis likely from infected wounds. Inability to protect airway and hypoxemic respiratory failure
--- NOTE | 2017-11-16 15:42 | P.PNADD ---
Addendum to Inpatient Note Reason for Addendum: Additional Documentation Additional information: Off Service Note Patient is a 51-year-old female with a significant past medical history of COPD , schizophrenia, rheumatoid arthritis and left total knee replacement (07/26/17) who presents to the ED with complaints of worsening shortness of breath and mental status change accompanied with symptoms of diarrhea (3 days, non-bloody) and decreased p.o. intake (5 days). On admission patient found to be in severe sepsis with tachycardia (110), new onset neutropenia (WBC 0.9), Lactic acid of 3.1, and an H/H of 5.5/16.3 as well as AMS. Probable source was thought to be due to her prosthetic knee that was replaced in July. At the time of admission her left knee was draining fluid and her gave a history of her knee draining "towels of pus". In the ED patient received 2 L of normal saline, vancomycin 1 g x1 and Zosyn 4.5 g x1. Chest CTA showed no evidence of atelectasis or consolidation of left lower lobe. Wound culture taken from left knee grew pseudomonas and group B strep, but blood cultures had no growth. Patient also had a fungal transcutaneous skin infection on abdomen and as well as oral thrush. She was on nystatin swish and swallow and IV fluconazole. Many psychiatric/RA drugs were stopped due to myelosuppression. Heme / Onc was consulted and patient received Neupogen which greatly increased her white count. At the time of admission patient had active auditory and visual hallucinations. Psychiatry was consulted who recommended limiting her psych meds to aripiprazole, buspirone, duloxetine, and trazodone. During her treatment she received folic acid and leucovorin. She later developed thrombocytopenia, and a HIT workup was done which turned out to be negative, her platelets eventually sarthak again. This patient was initially admitted to the ICU due to neutropenic precautions, but was eventually transferred back down to the floor. Per ID her antibiotics were changed to levofloxacin, cefepime, and fluconazole. A plan was made with ID to get the patient a PICC line and have her administer antibiotics at home with the help of home health as well as wound care. She received a PICC line with a planned course of antibiotics of cefepime and levofloxacin until November 08, and fluconazole until October 18. Upon preparation for discharge patient mentioned that she was having pain near her anus, an exam revealed the same transcutaneous wound that she had under her pannus was also on her perineum extending almost to the anus. Patient was taken to OR for debridement and wound VAC placement on 10/09 and . 10/15 the patient was taken to the OR and the wound vac was removed with closure of the abdominal wall. Tissue samples taken from debridement had no growth on culture. 10/19 patient got OOB on her own and fell. New opening of skin over L knee surgical site with increased drainage, new wound cultures were taken with no growth resulting. Pain in L knee and ankle- xrays negative for fracture. Denies hitting head. Ortho was called due to increasing effusion of the knee but they did not recommend aspiration at the time. Patient began to have leaking around her rectal tube- C diff cultures taken and came back positive. Patient was started PO vancomycin. 10/20- dehiscence of L thigh incision , new skin breakdown on R thigh. Patient then had debridement, irrigation, and suturing performed on wound dehiscence on 10/16/17 without complications. Patient again returned to the operating room for I/D of abdomen and bilateral thighs with placement of Amniox to assist with wound healing. Cultures were positive for VRE and patient was started on daptomycin at that time. Her ABD and Pelvic wounds continued to purulent and non-healing likely secondary to her poor nutritional status. Patient unable to receive PEG tube as she has had previous gastric sleeve. Discussions with surgery and possible J-tube placement were discussed with general surgery once nutritional status improved as she would not heal from laparotomy procedure to place J-tube. Patient was started on TPN for nutritional assistance in hopes to improve healing as well as plan for J-tube placement. However patient had multiple episodes of agitation, that resulted in her pulling out two different PICC lines. Patient also had an episode of dysphagia leading to a suspected aspiration PNA. After the patient pulled the second PICC line, no IV access was able to be obtained. The patient became hypoglycemic with an AMS. The Interventional Radiology team was consulted emergently for PICC line placement which was obtained. TPN was restarted and the patients blood glucose normalized. Due to her new onset dysphagia with AMS , neurology was consulted. CT scanned showed increased ventricle size, however MRI and neurologic exam were normal showing no active neurologic issue. Due to her continued AMS and hypoglycemia without access, patient was transferred to the ICU for further monitoring and Critical Care was consulted. On 11/12/17, the patient developed acute respiratory failure requiring rapid intubation. Patient also became thrombocytopenic, hypothermic, developed an BRET, and became septic. All previous antibiotics were discontinued and patient was started on Meropenem , Linezolid, and Micafungin for infectious coverage with the assistance of Infectious Disease. Palliative care was consulted to assist the medical team with goals of care as the patients prognosis was very poor.
[2017-11-16] MEDS: traZODone 100 MG Tablet PO SCH (21:50)
[2017-11-16] MEDS: Mirtazapine 15 MG Tablet PO SCH (21:50)
[2017-11-17 06:29] LABS: Baso # (Auto) 0.1 th/mm3 (0.0-0.2); Baso % (Auto) 0.4 % (0.0-2.0); Eos # (Auto) 0.3 th/mm3 (0.0-0.4); Eos % (Auto) 1.9 % (0.0-4.0); Hematocrit 24.9 % (35.0-46.0); Hemoglobin 8.4 gm/dL (11.6-15.3); Lymph # (Auto) 2.6 th/mm3 (1.0-4.8); Lymph % (Auto) 16.3 % (9.0-44.0); Mean Corpuscular HGB Conc 33.6 % (32.0-36.0); Mean Corpuscular Hemoglobin 27.9 pg (27.0-34.0); Mean Corpuscular Volume 83.1 fL (80.0-100.0); Mean Platelet Volume 8.2 fL (7.0-11.0); Mono # (Auto) 0.7 th/mm3 (0.0-0.9); Mono % (Auto) 4.6 % (0.0-8.0); Neut % (Auto) 76.8 % (16.0-70.0); Platelet Count 87 th/mm3 (150-450); Red Blood Count 2.99 mil/mm3 (4.00-5.30); Red Cell Distribution Width 17.6 % (11.6-17.2); White Blood Count 15.6 th/mm3 (4.0-11.0)
[2017-11-17 06:45] LABS: Albumin 0.8 g/dL (3.4-5.0); Anion Gap 12 meq/L (5-15); Aspartate Aminotransferase 24 U/L (15-37); Calcium 7.9 mg/dL (8.5-10.1); Chloride 110 meq/L (98-107); Glomerular Filtration Rate 25 mL/min (>89); Glucose,Random 86 mg/dL (74-106); Potassium 4.5 meq/L (3.5-5.1); Sodium 140 meq/L (136-145)
[2017-11-17 06:56] LABS: Alanine Aminotransferase 16 U/L (10-53); Alkaline Phosphatase 142 U/L (45-117); Blood Urea Nitrogen 45 mg/dL (7-18); Total Protein 4.6 g/dL (6.4-8.2)
[2017-11-17] MEDS: Insulin NovoLOG Aspart Correctional Sugar Inj SQ SCH ×5 (07:36→23:46)
[2017-11-17] MEDS: Oral Hygiene Kit OROPHARYNG SCH ×4 (07:37→23:42)
[2017-11-17] MEDS: Hypromellose 0.3% Opth Gel 10 GM Bottle EACH EYE SCH ×2 (09:11→20:33)
[2017-11-17] MEDS: Pantoprazole Inj 40 MG Vial IV.PUSH SCH (09:12)
[2017-11-17] MEDS: Chlorhexidine 0.12% Oral Kit 15 ML UDC OROPHARYNG SCH ×2 (09:13→20:32)
[2017-11-17] MEDS: Folic Acid 1 MG Tablet PO SCH (09:13)
[2017-11-17] MEDS: Duloxetine 60 MG DR Capsule PO SCH (09:13)
[2017-11-17] MEDS: Heparin Central Flush 100 UNIT/ML 5 ML Vial IV.FLUSH SCH ×2 (09:13→09:14)
[2017-11-17] MEDS: Lactobacillus Acidophilus/L. Spores Tablet PO SCH ×2 (09:13→20:33)
--- NOTE | 2017-11-17 09:13 | P.PNFP ---
Subjective Interval history: Patient seen and examined this AM. Remains intubated and sedated. Still with episodes of hypotension overnight. Given an additional unit pRBCs yesterday. Cr continues to increase, poor UOP noted. <TarundarionScot akers - 11/17/17 09:13> Results - Labs Result diagrams: 11/17/17 05:45 11/17/17 05:45 <DanvilleMaddy diana Parris - 11/17/17 11:50> Abnormal lab results 10/29/17 11/16/17 11/17/17 Range/Units 17:35 15:10 05:45 WBC 15.6 H (4.0-11.0) th/mm3 RBC 2.99 L (4.00-5.30) mil/mm3 Hgb 8.4 L (11.6-15.3) gm/dL Hct 24.9 L (35.0-46.0) % RDW 17.6 H (11.6-17.2) % Plt Count 87 L (150-450) th/mm3 Neut % (Auto) 76.8 H (16.0-70.0) % Neut # (Auto) 12.0 H (1.8-7.7) th/mm3 Band Neuts % (Manual) 28 H (0-6) % Abs Neuts (Manual) 12.8 H (1.8-7.7) th/mm3 Nucleated RBCs/100 WBC 2 H (0-0) /100 WBC Platelet Estimate Low L (Normal) Target Cells 1+ H (None) Chloride (98-107) meq/L Carbon Dioxide (21.0-32.0) meq/L BUN (7-18) mg/dL Creatinine (0.50-1.00) mg/dL Estimated GFR (>89) mL/min Calcium (8.5-10.1) mg/dL Alkaline Phosphatase (45-117) U/L Total Protein (6.4-8.2) g/dL Albumin (3.4-5.0) g/dL MTS Gel Crossmatch See Detail See Detail 11/17/17 Range/Units 05:45 WBC (4.0-11.0) th/mm3 RBC (4.00-5.30) mil/mm3 Hgb (11.6-15.3) gm/dL Hct (35.0-46.0) % RDW (11.6-17.2) % Plt Count (150-450) th/mm3 Neut % (Auto) (16.0-70.0) % Neut # (Auto) (1.8-7.7) th/mm3 Band Neuts % (Manual) (0-6) % Abs Neuts (Manual) (1.8-7.7) th/mm3 Nucleated RBCs/100 WBC (0-0) /100 WBC Platelet Estimate (Normal) Target Cells (None) Chloride 110 H (98-107) meq/L Carbon Dioxide 18.0 L (21.0-32.0) meq/L BUN 45 H (7-18) mg/dL Creatinine 2.48 H (0.50-1.00) mg/dL Estimated GFR 25 L (>89) mL/min Calcium 7.9 L (8.5-10.1) mg/dL Alkaline Phosphatase 142 H (45-117) U/L Total Protein 4.6 L (6.4-8.2) g/dL Albumin 0.8 L (3.4-5.0) g/dL MTS Gel Crossmatch Short CBC 11/17/17 Range/Units 05:45 WBC 15.6 H (4.0-11.0) th/mm3 Hgb 8.4 L (11.6-15.3) gm/dL Hct 24.9 L (35.0-46.0) % Plt Count 87 L (150-450) th/mm3 BMP 11/17/17 05:45 Sodium 140 Potassium 4.5 Chloride 110 H Carbon Dioxide 18.0 L BUN 45 H Creatinine 2.48 H Calcium 7.9 L Liver Function 11/17/17 Range/Units 05:45 Total Bilirubin 0.3 (0.2-1.0) mg/dL AST 24 (15-37) U/L ALT 16 (10-53) U/L Alkaline Phosphatase 142 H (45-117) U/L Albumin 0.8 L (3.4-5.0) g/dL <Maddy Jackson - 11/17/17 11:50> Abnormal lab results 10/29/17 11/16/17 11/17/17 Range/Units 17:35 15:10 05:45 WBC 15.6 H (4.0-11.0) th/mm3 RBC 2.99 L (4.00-5.30) mil/mm3 Hgb 8.4 L (11.6-15.3) gm/dL Hct 24.9 L (35.0-46.0) % RDW 17.6 H (11.6-17.2) % Plt Count 87 L (150-450) th/mm3 Neut % (Auto) 76.8 H (16.0-70.0) % Neut # (Auto) 12.0 H (1.8-7.7) th/mm3 Chloride (98-107) meq/L Carbon Dioxide (21.0-32.0) meq/L BUN (7-18) mg/dL Creatinine (0.50-1.00) mg/dL Estimated GFR (>89) mL/min Calcium (8.5-10.1) mg/dL Alkaline Phosphatase (45-117) U/L Total Protein (6.4-8.2) g/dL Albumin (3.4-5.0) g/dL MTS Gel Crossmatch See Detail See Detail 11/17/17 Range/Units 05:45 WBC (4.0-11.0) th/mm3 RBC (4.00-5.30) mil/mm3 Hgb (11.6-15.3) gm/dL Hct (35.0-46.0) % RDW (11.6-17.2) % Plt Count (150-450) th/mm3 Neut % (Auto) (16.0-70.0) % Neut # (Auto) (1.8-7.7) th/mm3 Chloride 110 H (98-107) meq/L Carbon Dioxide 18.0 L (21.0-32.0) meq/L BUN 45 H (7-18) mg/dL Creatinine 2.48 H (0.50-1.00) mg/dL Estimated GFR 25 L (>89) mL/min Calcium 7.9 L (8.5-10.1) mg/dL Alkaline Phosphatase 142 H (45-117) U/L Total Protein 4.6 L (6.4-8.2) g/dL Albumin 0.8 L (3.4-5.0) g/dL MTS Gel Crossmatch Short CBC 11/17/17 Range/Units 05:45 WBC 15.6 H (4.0-11.0) th/mm3 Hgb 8.4 L (11.6-15.3) gm/dL Hct 24.9 L (35.0-46.0) % Plt Count 87 L (150-450) th/mm3 BMP 11/17/17 05:45 Sodium 140 Potassium 4.5 Chloride 110 H Carbon Dioxide 18.0 L BUN 45 H Creatinine 2.48 H Calcium 7.9 L Liver Function 11/17/17 Range/Units 05:45 Total Bilirubin 0.3 (0.2-1.0) mg/dL AST 24 (15-37) U/L ALT 16 (10-53) U/L Alkaline Phosphatase 142 H (45-117) U/L Albumin 0.8 L (3.4-5.0) g/dL <Scot Vidal - 11/17/17 09:13> Physical Exam Vital signs: Vital Signs 11/16/17 12:00 11/16/17 12:09 11/16/17 14:00 Temperature 96.3 F L Pulse Rate 96 H 80 Respiratory Rate 11 L 8 L Blood Pressure 107/55 L Pulse Oximetry 100 100 11/16/17 15:56 11/16/17 16:00 11/16/17 18:00 Temperature 97.5 F L Pulse Rate 101 H 80 Respiratory Rate 10 L 16 Blood Pressure 91/52 L 82/54 L Pulse Oximetry 100 99 11/16/17 18:30 11/16/17 19:00 11/16/17 19:30 Temperature 97.0 F L 97.0 F L 97.2 F L Pulse Rate 83 98 H 103 H Respiratory Rate 25 H 21 19 Blood Pressure 91/63 L 90/57 L 95/64 L Pulse Oximetry 98 100 99 11/16/17 19:53 11/16/17 20:00 11/16/17 20:08 Temperature 97.2 F L 97.2 F L 97 F L Pulse Rate 106 H 102 H 103 H Respiratory Rate 11 L 16 14 Blood Pressure 95/64 L 103/57 L 103/57 L Pulse Oximetry 100 100 98 11/16/17 20:30 11/16/17 20:32 11/16/17 21:00 Temperature 97.0 F L 97.2 F L 97.0 F L Pulse Rate 101 H 99 H 99 H Respiratory Rate 13 10 L 12 Blood Pressure 107/62 107/62 90/55 L Pulse Oximetry 100 99 100 11/16/17 21:04 11/16/17 21:30 11/16/17 21:48 Temperature 97.0 F L 97 F L Pulse Rate 100 H 104 H Respiratory Rate 18 17 16 Blood Pressure 98/58 L 98/58 L Pulse Oximetry 100 100 100 11/16/17 22:00 11/16/17 22:30 11/16/17 23:00 Temperature 96.8 F L 97.0 F L 97.0 F L Pulse Rate 106 H 106 H 102 H Respiratory Rate 21 24 19 Blood Pressure 124/58 L 121/58 L 113/56 L Pulse Oximetry 100 100 100 11/16/17 23:30 11/17/17 00:00 11/17/17 00:30 Temperature 97.0 F L 97.2 F L 97.3 F L Pulse Rate 103 H 104 H 103 H Respiratory Rate 17 17 18 Blood Pressure 119/59 L 127/60 121/66 Pulse Oximetry 100 99 99 11/17/17 01:00 11/17/17 01:30 11/17/17 02:00 Temperature 97.5 F L 97.9 F 98.1 F Pulse Rate 109 H 111 H 110 H Respiratory Rate 18 16 20 Blood Pressure 137/62 119/58 L 117/58 L Pulse Oximetry 96 97 98 11/17/17 02:30 11/17/17 03:00 11/17/17 03:30 Temperature 98.4 F 98.4 F 98.6 F Pulse Rate 112 H 109 H 107 H Respiratory Rate 18 16 16 Blood Pressure 117/58 L 116/58 L 108/54 L Pulse Oximetry 99 98 98 11/17/17 04:00 11/17/17 04:01 11/17/17 04:30 Temperature 98.6 F 98.6 F 98.6 F Pulse Rate 109 H 103 H 109 H Respiratory Rate 24 21 16 Blood Pressure 151/68 H 121/58 L Pulse Oximetry 100 99 100 11/17/17 04:34 11/17/17 05:00 11/17/17 05:30 Temperature 98.6 F 98.1 F Pulse Rate 117 H 114 H Respiratory Rate 16 24 17 Blood Pressure 109/69 114/55 L Pulse Oximetry 100 98 99 11/17/17 06:00 11/17/17 06:30 11/17/17 07:00 Temperature 97.9 F 98.1 F 98.2 F Pulse Rate 111 H 112 H 100 H Respiratory Rate 16 18 17 Blood Pressure 109/57 L 126/58 L 110/54 L Pulse Oximetry 100 99 99 11/17/17 07:30 11/17/17 08:00 11/17/17 08:30 Temperature 98.4 F 98.6 F 99.0 F Pulse Rate 112 H 110 H 112 H Respiratory Rate 17 16 17 Blood Pressure 115/62 114/56 L 106/57 L Pulse Oximetry 99 99 99 11/17/17 09:00 11/17/17 09:30 11/17/17 10:00 Temperature 99.3 F 99.7 F H 99.7 F H Pulse Rate 115 H 119 H 117 H Respiratory Rate 16 16 16 Blood Pressure 122/60 123/58 L 117/57 L Pulse Oximetry 99 98 99 11/17/17 10:48 Temperature Pulse Rate 117 H Respiratory Rate Blood Pressure Pulse Oximetry Intake & Output 11/16/17 11/17/17 11/17/17 18:59 06:59 18:59 Intake Total 820 / 820 1531 / 1531 350 / 350 Output Total 400 / 400 400 / 400 Balance 420 / 420 1131 / 1131 350 / 350 Weight 115.9 kg Intake: IV 500 / 500 550 / 550 350 / 350 Zyvox 600 mg Premix 300 ML @ 300 / 300 300 / 300 300 mls/hr IV.SIG Q12H [facility] Rx#: [id number] Merrem Inj 1,000 MG In NS Inj 100 / 100 100 / 100 100 ML @ 200 mls/hr IV.SIG Q12H [facility] Rx#:[id number] Mycamine Inj 100 MG In NS Inj 100 / 100 100 ML @ 100 mls/hr IV.SIG Q24H [facility] Rx#:[id number] fentaNYL 10 mcg/mL Premix Drip 250 / 250 250 / 250 2,500 mcg In 250 ml @ 50 MCG/HR 5 mls/hr IV.SIG TITRATE PRN Rx #:[id number] Oral 0 / 0 Oral Supplement 0 / 0 Tube Feeding 220 / 220 461 / 461 Tube Irrigant 100 / 100 120 / 120 Water Bolus Amount 0 / 0 Intake (Blood Product) Amt 400 / 400 Rbc As-3 Leukoreduced Unit 400 / 400 [id number] Output: Stool 300 / 300 300 / 300 Urine Amount (Catheter) 100 / 100 100 / 100 Indwelling Urethral Catheter 100 / 100 100 / 100 Other: Date of Last Bowel Movement 11/16/17 11/17/17 11/17/17 <Maddy Jackson M - 11/17/17 11:50> Vital Signs 11/16/17 09:30 11/16/17 10:00 11/16/17 12:00 Temperature 96.3 F L Pulse Rate 80 96 H Respiratory Rate 11 L Blood Pressure 146/68 H 146/62 H 107/55 L Pulse Oximetry 100 11/16/17 12:09 11/16/17 14:00 11/16/17 15:56 Temperature Pulse Rate 80 Respiratory Rate 8 L 10 L Blood Pressure Pulse Oximetry 100 100 11/16/17 16:00 11/16/17 18:00 11/16/17 18:30 Temperature 97.5 F L 97.0 F L Pulse Rate 101 H 80 83 Respiratory Rate 16 25 H Blood Pressure 91/52 L 82/54 L 91/63 L Pulse Oximetry 99 98 11/16/17 19:00 11/16/17 19:30 11/16/17 19:53 Temperature 97.0 F L 97.2 F L 97.2 F L Pulse Rate 98 H 103 H 106 H Respiratory Rate 21 19 11 L Blood Pressure 90/57 L 95/64 L 95/64 L Pulse Oximetry 100 99 100 11/16/17 20:00 11/16/17 20:08 11/16/17 20:30 Temperature 97.2 F L 97 F L 97.0 F L Pulse Rate 102 H 103 H 101 H Respiratory Rate 16 14 13 Blood Pressure 103/57 L 103/57 L 107/62 Pulse Oximetry 100 98 100 11/16/17 20:32 11/16/17 21:00 11/16/17 21:04 Temperature 97.2 F L 97.0 F L Pulse Rate 99 H 99 H Respiratory Rate 10 L 12 18 Blood Pressure 107/62 90/55 L Pulse Oximetry 99 100 100 11/16/17 21:30 11/16/17 21:48 11/16/17 22:00 Temperature 97.0 F L 97 F L 96.8 F L Pulse Rate 100 H 104 H 106 H Respiratory Rate 17 16 21 Blood Pressure 98/58 L 98/58 L 124/58 L Pulse Oximetry 100 100 100 11/16/17 22:30 11/16/17 23:00 11/16/17 23:30 Temperature 97.0 F L 97.0 F L 97.0 F L Pulse Rate 106 H 102 H 103 H Respiratory Rate 24 19 17 Blood Pressure 121/58 L 113/56 L 119/59 L Pulse Oximetry 100 100 100 11/17/17 00:00 11/17/17 00:30 11/17/17 01:00 Temperature 97.2 F L 97.3 F L 97.5 F L Pulse Rate 104 H 103 H 109 H Respiratory Rate 17 18 18 Blood Pressure 127/60 121/66 137/62 Pulse Oximetry 99 99 96 11/17/17 01:30 11/17/17 02:00 11/17/17 02:30 Temperature 97.9 F 98.1 F 98.4 F Pulse Rate 111 H 110 H 112 H Respiratory Rate 16 20 18 Blood Pressure 119/58 L 117/58 L 117/58 L Pulse Oximetry 97 98 99 11/17/17 03:00 11/17/17 03:30 11/17/17 04:00 Temperature 98.4 F 98.6 F 98.6 F Pulse Rate 109 H 107 H 109 H Respiratory Rate 16 16 24 Blood Pressure 116/58 L 108/54 L Pulse Oximetry 98 98 100 11/17/17 04:01 11/17/17 04:30 11/17/17 04:34 Temperature 98.6 F 98.6 F Pulse Rate 103 H 109 H Respiratory Rate 21 16 16 Blood Pressure 151/68 H 121/58 L Pulse Oximetry 99 100 100 11/17/17 05:00 11/17/17 05:30 11/17/17 06:00 Temperature 98.6 F 98.1 F 97.9 F Pulse Rate 117 H 114 H 111 H Respiratory Rate 24 17 16 Blood Pressure 109/69 114/55 L 109/57 L Pulse Oximetry 98 99 100 11/17/17 06:30 11/17/17 07:00 11/17/17 07:30 Temperature 98.1 F 98.2 F 98.4 F Pulse Rate 112 H 100 H 112 H Respiratory Rate 18 17 17 Blood Pressure 126/58 L 110/54 L 115/62 Pulse Oximetry 99 99 99 11/17/17 08:00 Temperature Pulse Rate Respiratory Rate 16 Blood Pressure Pulse Oximetry 98 Intake & Output 11/16/17 11/17/17 11/17/17 18:59 06:59 18:59 Intake Total 820 / 820 1531 / 1531 100 / 100 Output Total 400 / 400 400 / 400 Balance 420 / 420 1131 / 1131 100 / 100 Weight 115.9 kg Intake: IV 500 / 500 550 / 550 100 / 100 Zyvox 600 mg Premix 300 ML @ 300 / 300 300 / 300 300 mls/hr IV.SIG Q12H [facility] Rx#: [id number] Merrem Inj 1,000 MG In NS Inj 100 / 100 100 / 100 100 ML @ 200 mls/hr IV.SIG Q12H [facility] Rx#:[id number] Mycamine Inj 100 MG In NS Inj 100 / 100 100 ML @ 100 mls/hr IV.SIG Q24H [facility] Rx#:[id number] fentaNYL 10 mcg/mL Premix Drip 250 / 250 2,500 mcg In 250 ml @ 50 MCG/HR 5 mls/hr IV.SIG TITRATE PRN Rx #:[id number] Oral 0 / 0 Oral Supplement 0 / 0 Tube Feeding 220 / 220 461 / 461 Tube Irrigant 100 / 100 120 / 120 Water Bolus Amount 0 / 0 Intake (Blood Product) Amt 400 / 400 Rbc As-3 Leukoreduced Unit 400 / 400 [id number] Output: Stool 300 / 300 300 / 300 Urine Amount (Catheter) 100 / 100 100 / 100 Indwelling Urethral Catheter 100 / 100 100 / 100 Other: Date of Last Bowel Movement 11/16/17 11/17/17 <Scot Vidal - 11/17/17 09:13> Narrative: GENERAL: Morbidly obese -[place] female lying in bed intubated and sedated with soft restraints intact. HEENT: Atraumatic, normocephalic. No rhinorrhea. ET tube in place. CARDIOVASCULAR: Tachycardic rate (baseline) and regular rhythm without obvious murmurs, gallops, or rubs. RESPIRATORY: Bilateral rhonchi throughout. Breath sounds difficult to auscultate due to body habitus and ventilator noise. No increased work of breathing. GASTROINTESTINAL: Abdomen diffuse, soft with soft bowel sounds. Rectal tube in place with liquid fecal material in reservoir. Hopper catheter in place with minimal urinary output in reservoir. MUSCULOSKELETAL: No cyanosis. Bilateral upper extremity 2+ edema. Stable bilateral lower extremity 2+ with increased firmness. Left knee effusion stable and nontender to palpation. SCDs in place. NEURO/PSYCH: Patient intubated and sedated. Responds to verbal stimuli with eye opening and is able to squeeze my hand on command. SKIN: Cool and dry. No rash. PICC line inserted without surrounding erythema, warmth, or other signs of infection. ABD wounds: Currently bandaged with areas of purulent drainage on the pelvic wounds. Tracking wounds packed. No signs of hemorrhage. <Scot Vidal 11/17/17 09:13> - Urinary Catheter Management Female External Cath placed during this visit: no <Maddy Jackson 11/17/17 11:50> no <Scot Vidal 11/17/17 09:13> Indwelling Urethral Catheter Cath placed during this visit: no <Maddy Jackson 11/17/17 11:50> yes, but has since been removed by the nurse <Scot Vidal 11/17/17 09:13> Reason for continuing: Severe pressure ulcer/wound <Scot Vidal 09:13> Insertion date: 10/09/17 <Scot Vidal 11/17/17 09:13> Insertion time: 14:00 <Scot Vidal 11/17/17 09:13> Removal date: 10/05/17 <Scot Vidal 11/17/17 09:13> Removal time: 17:30 <Scot Vidal 11/17/17 09:13> Assessment and Plan - Assessment (1) Respiratory failure Code(s): J96.90 - Respiratory failure, unspecified, unspecified whether with hypoxia or hypercapnia Status: Acute (2) Sepsis Code(s): A41.9 - Sepsis, unspecified organism Status: Acute (3) Open wound of abdominal wall Code(s): S31.109A - Unspecified open wound of abdominal wall, unspecified quadrant without penetration into peritoneal cavity, initial encounter Status : Acute (4) Aspiration into airway Code(s): T17.908A - Unspecified foreign body in respiratory tract, part unspecified causing other injury, initial encounter Status: Acute (5) C. difficile diarrhea Code(s): A04.72 - Enterocolitis due to Clostridium difficile, not specified as recurrent Status: Acute (6) Anemia Code(s): D64.9 - Anemia, unspecified Status: Resolved (7) Creatinine elevation Code(s): R79.89 - Other specified abnormal findings of blood chemistry Status : Acute (8) Thrombocytopenia Code(s): D69.6 - Thrombocytopenia, unspecified Status: Acute (9) Poor nutrition Code(s): E63.9 - Nutritional deficiency, unspecified Status: Acute (10) Schizophrenia Code(s): F20.9 - Schizophrenia, unspecified Status: Chronic (11) Altered mental status Code(s): R41.82 - Altered mental status, unspecified Status: Acute (12) Hypoglycemia Code(s): E16.2 - Hypoglycemia, unspecified Status: Resolved (13) Cellulitis of knee, left Code(s): L03.116 - Cellulitis of left lower limb Status: Acute (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 - Infection and inflammatory reaction due to unspecified internal joint prosthesis, initial encounter Status: Suspected (15) Hypokalemia Code(s): E87.6 - Hypokalemia Status: Resolved (16) Fall Code(s): W19.XXXA - Unspecified fall, initial encounter Status: Acute (17) Hypertension Code(s): I10 - Essential (primary) hypertension Status: Acute (18) Tachycardia Code(s): R00.0 - Tachycardia, unspecified Status: Chronic (19) Nutrition, metabolism, and development symptoms Code(s): R63.8 - Other symptoms and signs concerning food and fluid intake Status: Acute <Maddy Jackson - 11/17/17 11:50> (1) Respiratory failure Code(s): J96.90 - Respiratory failure, unspecified, unspecified whether with hypoxia or hypercapnia Status: Acute Plan: Patient with possible aspiration episode on 11/12/17 with subsequent acute respiratory failure requiring intubation -ABG 11/12/17:7.3/33/219/16 -CXR 11/15/17: Mild bibasilar consolidation, improved on the right and slightly worse on the left. -Patient intubated and sedated -Bagging Salvager consulted -Palliative care consulted (2) Sepsis Code(s): A41.9 - Sepsis, unspecified organism Status: Acute Plan: Patient currently meeting sepsis criteria with core body temperature of approximately 94, leukocytosis, and tachycardia. Suspected site of infection as her extensive abdominal wounds. -Please see plan as below (3) Open wound of abdominal wall Code(s): S31.109A - Unspecified open wound of abdominal wall, unspecified quadrant without penetration into peritoneal cavity, initial encounter Status : Acute Plan: Large abdominal and pelvic wounds that appear not to be healing likely secondary to poor nutritional status -Wound Culture 09/27/17: Pseudomonas and Group B Step -Blood Cultures 10/24/17: Negative -Tissue Cultures 10/09/17: Negative -Abdominal wound culture 11/01/17: Group D Enterococcus, sensitive to Daptomycin ; Fungal species -Blood Culture 11/07/17 per TPN protocol: Negative to date -Blood Culture 11/12/17: NTD -PICC Line/Blood Cultures 11/15/17: no growth to date -Infectious disease consulted -General surgery consulted -Surgical debridement 10/09, wound VAC applied. -VAC changed 10/12 removed 10/15. -Debridement, irrigation, with suturing performed on 10/16. -I&D of abdomen and bilateral thighs, placement of Amniox with wound closure on 11/01/17 -Dressing changes per general surgery Medications: -Meropenem (11/13/17- ) -Micafungin (11/13/17- ) -Linezolid (11/13/17- ) Levaquin (11/10/17-11/15/17) -Daptomycin IV for suspected VRE per ID (11/03/17-11/13/17) -Cefepime IV (09/29/17-11/08/17) discontinued due to thrombocytopenia and elevated creatinine -Flagyl (11/10/17- ) -Diflucan 500mg daily (11/12/17) -Fentanyl added to assist with pain control (4) Aspiration into airway Code(s): T17.908A - Unspecified foreign body in respiratory tract, part unspecified causing other injury, initial encounter Status: Acute Plan: Patient with possible aspiration episode overnight 11/09/17 with another episode on 11/12/17. Patient now with respiratory failure as above -Chest x-ray 11/09/12: Interval development of left lower lobe consolidation -CXR 11/10/17: Left upper extremity PICC distal tip at the junction of the SVC and brachiocephalic vein. Bibasilar airspace opacity could represent atelectasis versus consolidation. -CXR 11/12/17: Interim intubation. Endotracheal tip at the shaka. Small effusion and mild consolidation developing at the right base. -Sputum cultures: Gram stain with rare gram positive cocci in pairs, many WBC, mucus; Culture with light growth of normal respiratory lisa at 24 hours. -CXR 11/15/17: Mild bibasilar consolidation, improved on the right and slightly worse on the left. Speech therapy consulted for swallow evaluation once extubated -ID consulted Medications: -Meropenem (11/13/17- ) -Micafungin (11/13/17- ) -Linezolid (11/13/17- ) Levaquin (11/10/17-11/15/17) -Flagyl (11/10/17-11/13/17) (5) C. difficile diarrhea Code(s): A04.72 - Enterocolitis due to Clostridium difficile, not specified as recurrent Status: Acute Plan: -C diff cultures positive 10/19/17 -Patient meeting criteria for severe C. difficile infection -Vancomycin PO 125 4 times daily (10/23/17- ) -Difficid 200mg BID (11/15/17- ) -Continue with probiotics. -Rectal tube in place (6) Anemia Code(s): D64.9 - Anemia, unspecified Status: Resolved Plan: -Patient found to have asymptomatic anemia H/H of 7/20.3 with MCV of 82 on -Rectal tube and Hopper catheter without any signs of acute bleeding -Dressings without obvious signs of bleeding -11 units total thus far during admission (11/16/17 most recent) -Continue to monitor (7) Creatinine elevation Code(s): R79.89 - Other specified abnormal findings of blood chemistry Status : Acute Plan: Patient with acute creatinine elevation with starting TPN. -Unknown etiology at this time -Patient with decreasing urinary output -Hopper exchanged for possible obstruction; patient with continued decreased output -Electrolytes WNL -Continue to monitor creatinine, I/Os (8) Thrombocytopenia Code(s): D69.6 - Thrombocytopenia, unspecified Status: Acute Plan: Patient with decreasing platelet count -Etiology unknown -No signs of acute bruising/bleeding on limited skin exam due to body habitus -Continue to monitor (9) Poor nutrition Code(s): E63.9 - Nutritional deficiency, unspecified Status: Acute Plan: -Patient with poor nutritional status during hospitalization -Severe concern of poor wound healing secondary to poor nutritional status -Cat Dog Or Other Pet Groomer consulted for calorie count and nutritional guidance, which has been limited due to NPO status prior to surgery, however patient continues to have poor intake -Multivitamin IV added with Hermes supplementation BID -Albumin levels continued to be decreased -Patient unable to receive 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 Briefly discussed with surgery about the possibility of a JG tube versus surgical placement of PEG tube, deferred as patient will likely not heal from surgical procedure due to nutritional status -NG tube placed with vital 1.5 tube feeds started per dietary TPN, Clinimix E 08/05 @ 65 mls/hr with 20% lipids 250 mls 2x/week (11/07/17-) (10) Schizophrenia Code(s): F20.9 - Schizophrenia, unspecified Status: Chronic Plan: -Psychiatry consulted upon admission -Patient with increased agitation and disorientation on 11/09/17; during episode patient pulled PICC line and attempted to pull out rectal/Hopper; patient required 1 mg Haldol for agitation during episode -Psychiatry consulted for further evaluation Medications: -Haldol 1-2 mg IV/IM every 8 hours as needed for aggressive behavior/agitation -Continue Abilify 30 mg for psychosis -Continue buspirone 30 mg, trazodone 100 mg and Cymbalta 60 mg -Started Mirtazapine 15mg QHS to assist with mood as well as appetite stimulant -Hold anticholinergics per Psych (11) Altered mental status Code(s): R41.82 - Altered mental status, unspecified Status: Acute Plan: Patient with altered mental status overnight 11/11/17 with possible aspiration due to new dysphagia. Patient's mental status continues to decline with a GCS score of 10. Likely related to hypoglycemia as patient did not have access and was not able to receive nutrition via PICC line and is n.p.o. for failed swallow study. -CT Head: Interval enlargement of the ventricular system of uncertain etiology. No clear evidence of an obstructing process. Otherwise stable evaluation without evidence of acute infarct, hemorrhage, mass, or edema. -MRI wo contrast: Negative for acute process -Speech therapy consulted Neurology consulted, appreciate recommendations -No active neurological issues -Bagging Salvager consulted, appreciate recommendations Medications: -Glucagon given overnight -STAT buccal glucose given -TPN re-initiated -All PO medications placed on Hold -Haldol 1mg PRN for agitation/hallucinations -Lopressor 5mg IV PRN for HR >120 every 15min (12) Hypoglycemia Code(s): E16.2 - Hypoglycemia, unspecified Status: Resolved Plan: Patient presenting with altered mental status 11/11/17 Differential remains wide, however patient also with hypoglycemia likely contributing to mental status Patient currently n.p.o. due to dysphagia Patient has lost PICC line 2 and currently does not have IV access due to poor vasculature, therefore she has been unable to receive TPN, fluids, or antibiotics at this time Stat consult to IR for PICC line placement, DW Dr. 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 She completed rehabilitation and was discharged home August 23. Patient was on approximately 2 weeks of po Keflex 500 mg. Per Ortho, examination of left knee shows no evidence of infection. (15) Hypokalemia Code(s): E87.6 - Hypokalemia Status: Resolved Plan: -Patient with hypokalemia during hospitalization. Appears to be not tolerating ER capsules as they were found whole in her rectal tube reservoir. Medications: -Patient placed on ICU electrolyte protocol (16) Fall Code(s): W19.XXXA - Unspecified fall, initial encounter Status: Acute Plan: Patient with fall on 10/19/17. No loss of consciousness, no head injury, left knee and ankle pain. -Knee x-ray- Prosthesis in place, No abnormality appreciated -Ankle x-ray- No abnormality appreciated -Patient to continue with PT (17) Hypertension Code(s): I10 - Essential (primary) hypertension Status: Acute Plan: History of hypertension Hold oral medications below -Continue to monitor -Clonidine PRN for BP > 180/100 (18) Tachycardia Code(s): R00.0 - Tachycardia, unspecified Status: Chronic Plan: -Patient with chronic history of tachycardia -EKG 09/27/17: Sinus tachycardia with rate of [address] or interval changes. (Per medical team read) Medications: -Lopressor 5mg IV PRN for HR >120 if unable to tolerate PO -Continue home diltiazem and carvedilol (19) Nutrition, metabolism, and development symptoms Code(s): R63.8 - Other symptoms and signs concerning food and fluid intake Status: Acute Plan: Fluids: NG tube feeds with Vital 1.5 @ 40 mls/hr goal, plan to wean TPN with SSI as needed Electrolytes: Replete as needed per ICU protocol Nutrition: -Cat Dog Or Other Pet Groomer consulted for nutritional guidance -NG tube placed and tube feeds started with vital 1.5 at 50 mils per hour (goal) -TPN Clinimix E 08/05 @ 65 mls/hr with 20% lipids 250 mls 2x/week (11/07/17- ); plan to wean as tolerated now that NG tube feeds have been initiated PICC line placed in left upper extremity DVT prophylaxis: SCDs, Defer medical prophylaxis due to anemia <Scot Vidal - 11/17/17 08:59> - Assessment and Plan . <Scot Vidal - 11/17/17 09:13> - Attending Attestation The exam, history, and the medical decision-making described in the above note were completed with the assistance of the resident physician. I reviewed and agree with the findings presented. I attest that I had a [id number] encounter with the patient on the same day, and personally performed and documented my assessment and findings in the medical record. increased her tube feeds from 40 to 50. her kidneys are a little worse each day. she does have RA which has not been treated since admission. possibly it is contributing to her bone marrow problems or even renal issues. however, any immunosuppressant would be too much for her at this point. <RenettaMaurisioMaddy M - 11/17/17 11:50> <Scot Vidal - Last Filed: 11/17/17 08:59> (1) Respiratory failure Qualifiers: Chronicity: acute (3) Open wound of abdominal wall Qualifiers: Encounter type: initial encounter Qualified Code(s): S31.109A - Unspecified open wound of abdominal wall, unspecified quadrant without penetration into peritoneal cavity, initial encounter (4) Aspiration into airway Qualifiers: Encounter type: initial encounter Qualified Code(s): T17.908A - Unspecified foreign body in respiratory tract, part unspecified causing other injury, initial encounter (6) Anemia Qualifiers: Anemia type: unspecified type Qualified Code(s): D64.9 - Anemia, unspecified (11) Altered mental status Qualifiers: Altered mental status type: unspecified Qualified Code(s): R41.82 - Altered mental status, unspecified (17) Hypertension Qualifiers: Hypertension type: essential hypertension Qualified Code(s): I10 - Essential (primary) hypertension <Maddy Jackson - Last Filed: 11/17/17 11:50> (1) Respiratory failure Qualifiers: Chronicity: acute (3) Open wound of abdominal wall Qualifiers: Encounter type: initial encounter Qualified Code(s): S31.109A - Unspecified open wound of abdominal wall, unspecified quadrant without penetration into peritoneal cavity, initial encounter (4) Aspiration into airway Qualifiers: Encounter type: initial encounter Qualified Code(s): T17.908A - Unspecified foreign body in respiratory tract, part unspecified causing other injury, initial encounter (6) Anemia Qualifiers: Anemia type: unspecified type Qualified Code(s): D64.9 - Anemia, unspecified (11) Altered mental status Qualifiers: Altered mental status type: unspecified Qualified Code(s): R41.82 - Altered mental status, unspecified (17) Hypertension Qualifiers: Hypertension type: essential hypertension Qualified Code(s): I10 - Essential (primary) hypertension <Scot Vidal - Last Filed: 11/17/17 08:59> (1) Respiratory failure Qualifiers: Chronicity: acute (3) Open wound of abdominal wall Qualifiers: Encounter type: initial encounter Qualified Code(s): S31.109A - Unspecified open wound of abdominal wall, unspecified quadrant without penetration into peritoneal cavity, initial encounter (4) Aspiration into airway Qualifiers: Encounter type: initial encounter Qualified Code(s): T17.908A - Unspecified foreign body in respiratory tract, part unspecified causing other injury, initial encounter (6) Anemia Qualifiers: Anemia type: unspecified type Qualified Code(s): D64.9 - Anemia, unspecified (11) Altered mental status Qualifiers: Altered mental status type: unspecified Qualified Code(s): R41.82 - Altered mental status, unspecified (17) Hypertension Qualifiers: Hypertension type: essential hypertension Qualified Code(s): I10 - Essential (primary) hypertension <Maddy Jackson - Last Filed: 11/17/17 11:50> (1) Respiratory failure Qualifiers: Chronicity: acute (3) Open wound of abdominal wall Qualifiers: Encounter type: initial encounter Qualified Code(s): S31.109A - Unspecified open wound of abdominal wall, unspecified quadrant without penetration into peritoneal cavity, initial encounter (4) Aspiration into airway Qualifiers: Encounter type: initial encounter Qualified Code(s): T17.908A - Unspecified foreign body in respiratory tract, part unspecified causing other injury, initial encounter (6) Anemia Qualifiers: Anemia type: unspecified type Qualified Code(s): D64.9 - Anemia, unspecified (11) Altered mental status Qualifiers: Altered mental status type: unspecified Qualified Code(s): R41.82 - Altered mental status, unspecified (17) Hypertension Qualifiers: Hypertension type: essential hypertension Qualified Code(s): I10 - Essential (primary) hypertension
[2017-11-17 10:12] LABS: Eosinophils 1 % (0-4); Lymphocytes 11 % (9-44); Metamyelocytes 1 % (0-1); Monocytes 6 % (0-8); Tallied Nucleated RBC 2 (0-0); Target Cells 1+
[2017-11-17 10:13] LABS: Platelet Morphology Normal (Normal)
[2017-11-17] MEDS: fentaNYL 10 mcg/mL Premix Drip 2,500 MCG/250 ML BAG IV.SIG PRN ×2 (10:19→19:14)
--- NOTE | 2017-11-17 14:00 | P.PNCC ---
Subjective Subjective Remarks/Hospital Course: This is a 52-year-old female with a very complex medical history who was admitted back in September 2017 for postoperative wound infection from her total knee arthroplasty. Her course has been complicated by multiple necrotizing soft tissue infections. She additionally has failure to thrive and severe acute protein calorie malnutrition for which she has been on total parenteral nutrition. She intermittently becomes agitated and pulls out her IV access. Today she was on the floor when she became worsening the febrile and altered. She pulled out her own PICC line overnight, and nursing staff was unable to reobtain IV access. Because she was off TPN she became quite hypoglycemic which was refractory to non-intravenous methods of glucose administration. Urgently a new PICC line was placed by interventional radiology and she was given IV dextrose. When her glucose improved, her mental status improved as well. She is transferred to the ICU for management of worsening recurrent sepsis, worsening wound infection, and hypoglycemia. When I evaluated the patient, she was more awake, nonfocal, moving all extremities. She endorses fatigue, but denies other symptoms. She specifically denies chest pain, shortness of breath, fever, chills, nausea, vomiting, abdominal pain. She does endorse diarrhea and has a rectal tube in place. She has a recent history of active C. difficile infection. Remainder of the review systems is negative unless otherwise stated. 11/12: Lying in bed no acute distress intermittently confused but follows commands, pleasant. WBC count stable at 11.7. On TPN hypoglycemia has resolved. Discussed with Dr. Schneider 11/13: Intubated and placed on mechanical ventilation yesterday evening for desaturation and lack of airway protection. Creatinine has increased to 1.5 potassium is 2.8 getting replaced. On light sedation patient does follow commands. Antibiotics have been broadened to Zyvox meropenem and Levaquin and micafungin. Continue p.o. vancomycin for C Diff 11/14: Patient intubated sedated with propofol. Wakes up follows some commands but did not tolerate CPAP due to tachypnea. WBC count worsening currently 15.1. Also worsening creatinine 1.8. Some evidence of worsening wound infection in the lower abdomen pelvic region. Lower abdominal and left thigh incisions with increasing drainage 11/15: Remains intubated, sedated, becoming more septic and hypothermic. WBC count is 15.7 creatinine is 1.9 meets criteria for severe C. difficile colitis. Infectious disease following, currently on p.o. vancomycin for C. difficile ID is adding Dificid to the regimen. If not clinically improving need CT of the abdomen pelvis. Worsening sepsis most likely from worsening C. difficile than wound infection 11/16: Continued persistent hypotension. Discussed with Surgical Service. Acts like continued septic course. No other major changes. Will require transfusion soon. Subjective 11/17: Low-grade temperatures overnight. Tube feeds currently at goal of 50 cc an hour with vital 1.5. Positive BM. Hemoglobin currently 8.4. Objective Vital Signs / I&O: Vital Signs 11/16/17 14:00 11/16/17 15:56 11/16/17 16:00 Temperature 97.5 F L Pulse Rate 80 101 H Respiratory Rate 10 L 16 Blood Pressure 91/52 L Pulse Oximetry 100 99 11/16/17 18:00 11/16/17 18:30 11/16/17 19:00 Temperature 97.0 F L 97.0 F L Pulse Rate 80 83 98 H Respiratory Rate 25 H 21 Blood Pressure 82/54 L 91/63 L 90/57 L Pulse Oximetry 98 100 11/16/17 19:30 11/16/17 19:53 11/16/17 20:00 Temperature 97.2 F L 97.2 F L 97.2 F L Pulse Rate 103 H 106 H 102 H Respiratory Rate 19 11 L 16 Blood Pressure 95/64 L 95/64 L 103/57 L Pulse Oximetry 99 100 100 11/16/17 20:08 11/16/17 20:30 11/16/17 20:32 Temperature 97 F L 97.0 F L 97.2 F L Pulse Rate 103 H 101 H 99 H Respiratory Rate 14 13 10 L Blood Pressure 103/57 L 107/62 107/62 Pulse Oximetry 98 100 99 11/16/17 21:00 11/16/17 21:04 11/16/17 21:30 Temperature 97.0 F L 97.0 F L Pulse Rate 99 H 100 H Respiratory Rate 12 18 17 Blood Pressure 90/55 L 98/58 L Pulse Oximetry 100 100 100 11/16/17 21:48 11/16/17 22:00 11/16/17 22:30 Temperature 97 F L 96.8 F L 97.0 F L Pulse Rate 104 H 106 H 106 H Respiratory Rate 16 21 24 Blood Pressure 98/58 L 124/58 L 121/58 L Pulse Oximetry 100 100 100 11/16/17 23:00 11/16/17 23:30 11/17/17 00:00 Temperature 97.0 F L 97.0 F L 97.2 F L Pulse Rate 102 H 103 H 104 H Respiratory Rate 19 17 17 Blood Pressure 113/56 L 119/59 L 127/60 Pulse Oximetry 100 100 99 11/17/17 00:30 11/17/17 01:00 11/17/17 01:30 Temperature 97.3 F L 97.5 F L 97.9 F Pulse Rate 103 H 109 H 111 H Respiratory Rate 18 18 16 Blood Pressure 121/66 137/62 119/58 L Pulse Oximetry 99 96 97 11/17/17 02:00 11/17/17 02:30 11/17/17 03:00 Temperature 98.1 F 98.4 F 98.4 F Pulse Rate 110 H 112 H 109 H Respiratory Rate 20 18 16 Blood Pressure 117/58 L 117/58 L 116/58 L Pulse Oximetry 98 99 98 11/17/17 03:30 11/17/17 04:00 11/17/17 04:01 Temperature 98.6 F 98.6 F 98.6 F Pulse Rate 107 H 109 H 103 H Respiratory Rate 16 24 21 Blood Pressure 108/54 L 151/68 H Pulse Oximetry 98 100 99 11/17/17 04:30 11/17/17 04:34 11/17/17 05:00 Temperature 98.6 F 98.6 F Pulse Rate 109 H 117 H Respiratory Rate 16 16 24 Blood Pressure 121/58 L 109/69 Pulse Oximetry 100 100 98 11/17/17 05:30 11/17/17 06:00 11/17/17 06:30 Temperature 98.1 F 97.9 F 98.1 F Pulse Rate 114 H 111 H 112 H Respiratory Rate 17 16 18 Blood Pressure 114/55 L 109/57 L 126/58 L Pulse Oximetry 99 100 99 11/17/17 07:00 11/17/17 07:30 11/17/17 08:00 Temperature 98.2 F 98.4 F 98.6 F Pulse Rate 100 H 112 H 110 H Respiratory Rate 17 17 16 Blood Pressure 110/54 L 115/62 114/56 L Pulse Oximetry 99 99 99 11/17/17 08:30 11/17/17 09:00 11/17/17 09:30 Temperature 99.0 F 99.3 F 99.7 F H Pulse Rate 112 H 115 H 119 H Respiratory Rate 17 16 16 Blood Pressure 106/57 L 122/60 123/58 L Pulse Oximetry 99 99 98 11/17/17 10:00 11/17/17 10:30 11/17/17 10:48 Temperature 99.7 F H 99.5 F Pulse Rate 117 H 112 H 117 H Respiratory Rate 16 16 Blood Pressure 117/57 L 112/57 L Pulse Oximetry 99 98 11/17/17 11:00 11/17/17 11:30 11/17/17 11:52 Temperature 99.3 F 99.1 F Pulse Rate 110 H 109 H Respiratory Rate 16 16 16 Blood Pressure 112/59 L 111/56 L Pulse Oximetry 99 99 98 11/17/17 12:00 11/17/17 12:30 11/17/17 13:00 Temperature 99.0 F 99.0 F 98.8 F Pulse Rate 108 H 109 H 110 H Respiratory Rate 16 16 16 Blood Pressure 115/55 L 115/59 L 114/55 L Pulse Oximetry 100 100 100 Intake & Output 11/16/17 11/17/17 11/17/17 18:59 06:59 18:59 Intake Total 820 / 820 1531 / 1531 350 / 350 Output Total 400 / 400 400 / 400 Balance 420 / 420 1131 / 1131 350 / 350 Weight 115.9 kg Intake: IV 500 / 500 550 / 550 350 / 350 Zyvox 600 mg Premix 300 ML @ 300 / 300 300 / 300 300 mls/hr IV.SIG Q12H [facility] Rx#: [id number] Merrem Inj 1,000 MG In NS Inj 100 / 100 100 / 100 100 ML @ 200 mls/hr IV.SIG Q12H [facility] Rx#:[id number] Mycamine Inj 100 MG In NS Inj 100 / 100 100 ML @ 100 mls/hr IV.SIG Q24H [facility] Rx#:[id number] fentaNYL 10 mcg/mL Premix Drip 250 / 250 250 / 250 2,500 mcg In 250 ml @ 50 MCG/HR 5 mls/hr IV.SIG TITRATE PRN Rx #:[id number] Oral 0 / 0 Oral Supplement 0 / 0 Tube Feeding 220 / 220 461 / 461 Tube Irrigant 100 / 100 120 / 120 Water Bolus Amount 0 / 0 Intake (Blood Product) Amt 400 / 400 Rbc As-3 Leukoreduced Unit 400 / 400 [id number] Output: Stool 300 / 300 300 / 300 Urine Amount (Catheter) 100 / 100 100 / 100 Indwelling Urethral Catheter 100 / 100 100 / 100 Other: Date of Last Bowel Movement 11/16/17 11/17/17 11/17/17 Result Diagrams: 11/17/17 05:45 11/17/17 05:45 Other Results: Microbiology 11/15/17 13:10 Blood - Line Aerobic Blood Culture - Preliminary No growth in 2 days 11/15/17 13:10 Blood - Line Anaerobic Blood Culture - Preliminary No growth in 2 days 11/15/17 12:30 Blood - Peripheral Aerobic Blood Culture - Preliminary No growth in 2 days 11/15/17 12:30 Blood - Peripheral Anaerobic Blood Culture - Preliminary No growth in 2 days 11/15/17 12:35 Blood - Peripheral Aerobic Blood Culture - Preliminary No growth in 2 days 11/15/17 12:35 Blood - Peripheral Anaerobic Blood Culture - Preliminary No growth in 2 days 11/12/17 12:20 Blood - Peripheral Aerobic Blood Culture - Final No growth in 5 days 11/12/17 12:20 Blood - Peripheral Anaerobic Blood Culture - Final No growth in 5 days 11/12/17 12:25 Blood - Peripheral Aerobic Blood Culture - Final No growth in 5 days 11/12/17 12:25 Blood - Peripheral Anaerobic Blood Culture - Final No growth in 5 days 11/01/17 17:45 Wound - Abdominal Acid Fast Bacilli Smear - Final No acid fast bacilli seen 11/01/17 17:45 Wound - Abdominal Mycobacterial Culture - Preliminary No growth in 2 weeks 11/13/17 12:30 Sputum - Endotracheal Gram Stain - Final 11/13/17 12:30 Sputum - Endotracheal Sputum Culture - Final Light growth normal respiratory lisa 10/09/17 15:49 Tissue - Abdominal Acid Fast Bacilli Smear - Final No acid fast bacilli seen 10/09/17 15:49 Tissue - Abdominal Mycobacterial Culture - Preliminary No growth in 5 weeks 11/01/17 17:45 Wound - Abdominal Fungal Smear - Final No fungal elements seen 11/01/17 17:45 Wound - Abdominal Fungal Culture - Preliminary Susy glabrata 11/08/17 09:40 Blood - Other Aerobic Blood Culture - Final No growth in 5 days 11/08/17 09:40 Blood - Other Anaerobic Blood Culture - Final No growth in 5 days 11/08/17 06:50 Blood - Other Aerobic Blood Culture - Final No growth in 5 days 11/08/17 06:50 Blood - Other Anaerobic Blood Culture - Final No growth in 5 days 10/09/17 15:49 Tissue - Abdominal Fungal Smear - Final No fungal elements seen 10/09/17 15:49 Tissue - Abdominal Fungal Culture - Final No growth in 4 weeks 11/01/17 17:45 Wound - Abdominal Gram Stain - Final 11/01/17 17:45 Wound - Abdominal Wound Culture - Final Enterococcus faecium VRE 10/24/17 17:30 Blood - Peripheral Aerobic Blood Culture - Final No growth in 5 days 10/24/17 17:30 Blood - Peripheral Anaerobic Blood Culture - Final No growth in 5 days 10/24/17 17:40 Blood - Peripheral Aerobic Blood Culture - Final No growth in 5 days 10/24/17 17:40 Blood - Peripheral Anaerobic Blood Culture - Final No growth in 5 days 10/19/17 13:50 Wound - Knee Gram Stain - Final 10/19/17 13:50 Wound - Knee Wound Culture - Final No growth in 72 hours (aerobically and anaerobically ) 10/09/17 15:49 Tissue - Abdominal Gram Stain - Final 10/09/17 15:49 Tissue - Abdominal Wound Culture - Final No growth in 72 hours (aerobically and anaerobically ) 09/27/17 08:25 Blood - Peripheral Aerobic Blood Culture - Final No growth in 5 days 09/27/17 08:25 Blood - Peripheral Anaerobic Blood Culture - Final No growth in 5 days 09/27/17 08:10 Blood - Peripheral Aerobic Blood Culture - Final No growth in 5 days 09/27/17 08:10 Blood - Peripheral Anaerobic Blood Culture - Final No growth in 5 days 09/30/17 11:30 Stool Stool Occult Blood (FRANCISCA) - Final Hemoccult negative 09/27/17 12:50 Wound - Hip Gram Stain - Final 09/27/17 12:50 Wound - Hip Wound Culture - Final Pseudomonas aeruginosa Group B beta Strep 09/27/17 08:20 Catheterized Urine Urine Culture - Final No growth in 48 hours 09/27/17 22:10 Urine - Catheterized Urine Streptococcus pneumoniae Antigen ( M - Final Presumptive negative for streptococcus pneumoniae antigen, suggesting no current or recent infection. Infection due to Streptococcus pneumoniae cannot be ruled out since the antigen present in the sample may be below the detection limit of the test. 09/27/17 22:10 Urine - Catheterized Urine Legionella Antigen - Final Presumptive negative for Legionella pneumophila serogroup 1 antigen in urine, suggesting no recent or recurrent infection. Infection due to Legionella cannot be ruled out since other serogroups and species may cause disease, antigen may not be present in urine in early infection, and the level of antigen present in the urine may be below the detection limit of the test. Imaging: ITS Impressions Tibia/Fibula X-Ray 09/27/17 00:00 CONCLUSION: No acute left leg abnormality is identified. Abdomen/Pelvis CT 09/27/17 08:10 CONCLUSION: 1. Mild hepatic steatosis. 2. Thickening of the colon secondary to lack of distention versus colitis. 3. Left lower lobe consolidation and/or atelectasis. There does appear to be a 1.4 cm cavitary area which makes consolidation likely. Chest CTA 09/27/17 08:22 CONCLUSION: 1. No pulmonary embolus. 2. Consolidation or atelectasis at the left lower lobe. Knee CT 10/18/17 00:00 CONCLUSION: 1. Small joint effusion. 2. Nonspecific subcutaneous edema in the subcutaneous soft tissues above and below the knee. 3. No significant changes compared to the prior exam. Ankle X-Ray 10/19/17 00:00 CONCLUSION: 1. No acute fracture or dislocation. Knee X-Ray 10/19/17 00:00 CONCLUSION: 1. Total knee prosthesis in place. 2. Moderate-sized knee joint effusion. Head CT 11/10/17 00:00 CONCLUSION: 1. Interval enlargement of the ventricular system of uncertain etiology. There is no clear evidence of an obstructing process. 2. Otherwise stable evaluation without evidence of acute infarct, hemorrhage, mass or edema. . Venous Doppler Study 11/10/17 00:00 CONCLUSION: 1. No venous thrombosis is identified within either lower extremity. 2. As described above, secondary to open wounds, the left external iliac, common femoral vein, and greater saphenous veins were not adequately evaluated. Head MRI 11/11/17 00:00 CONCLUSION: 1. Motion artifact is present throughout the scan. 2. Examination is diagnostic. 3. No evidence of acute infarct, hemorrhage, mass or edema. PICC Line Insertion 11/11/17 08:51 CONCLUSION: 1. Uncomplicated central venous Power PICC line placement. 2. The PICC line can be used immediately. Chest X-Ray 11/15/17 06:00 CONCLUSION: Mild bibasilar consolidation, improved on the right and slightly worse on the left. Lines and tubes as above. Objective Remarks: GENERAL: 52-year-old morbidly obese -[place] female, intubated sedated with propofol HEENT: Normocephalic. Atraumatic. Pupils equal, round, reactive, conjugate. NECK: Trachea is midline. Orally intubated. CHEST: Equal chest rise. Orotracheally intubated. Air entry diminished at the bases CARDIOVASCULAR: Tachycardic rate . Regular rhythm. No murmurs, no JVD. ABDOMEN: Morbidly obese, soft. Lower abdominal area has complex open wound, stapled areas in the lower midline of the abdomen, and then a transverse area in the suprapubic region which is mostly opened down to the subcutaneous fat with persistent cloudy drainage now. Another wound extends nearly over the right anterior hip region which also appears to be open and draining purulent drainage down into the subcutaneous fat. There are also areas down into the left anterior hip/thigh area also with some cloudy drainage. MUSCULOSKELETAL: Pulses 2+. Gross anasarca. NEUROLOGICAL: Intubated sedated, on light sedation. Patient does wake up and follow basic commands. No focal deficits Assessment and Plan - Assessment and Plan Plan: Assessment: 52-year-old female with an extensive recent medical history including multiple wound infections and severe acute protein calorie malnutrition who presents with recurrent severe sepsis and wound infection. In terms of her altered mental status, I think this is secondary to hypoglycemia which is certainly secondary to her lack of TPN because she pulled out her PICC line. Now that her glycemic control is improved, her mental status is back to baseline, and I do not see any concerning neuro symptoms that would suggest a stroke, seizure or any other neurologic finding. MRI negative for acute stoke. Wound has increasing cloudy drainage. She also appears quite intravascularly dry, but her anasarca suggest that she has significant protein malnutrition as well as total body hypervolemia. Concentrated albumin for resuscitation to restore her intravascular volume. Multiple organs have chronically failed. I agree with palliative care consult as despite her young age, her overall 1 year mortality rate is very high given that she has had almost no improvement at all in considerable worsening of her overall function and medical history while inpatient over the last few months. Active problems: Severe Sepsis Acute hypoxemic respiratory failure Metabolic encephalopathy Severe sepsis Severe C diff colitis Deep tissue wound infection lower abdomen and perineum Severe hypoglycemia-resolved Elevated BMI Leukocytosis Normocytic anemia Thrombocytopenia Depressive disorder NOS Hyperlipidemia Acute kidney injury creatinine currently 2.48 Plan: Sedated with propofol and use fentanyl gtt for pain control Follow up cultures Meets criteria for severe C. difficile, creat >1.5, WBC >15K Continue p.o. vancomycin 250 mg 4 times daily for C Diff, Fidaxomicin added by ID Concentrated albumin for IV resuscitation Continue IV antibiotics, Linezolid, meropenem and micafungin. Levofloxacin DCd Advance tube feeds to goal with vital 1.5 at 50 cc an hour Lower abdomen and perineal wound infections general surgery and ID following Frequent glycemic checks, D50 for hypoglycemia Frequent neurochecks Sinus tachycardia is likely compensatory mechanism and from Sirs response Anemia -> transfuse Weight loss encouraged Continue mirtazapine 15 mg at night, trazodone 100 mg at night, apiriprazone 30 mg daily and buspirone 15 mg 3 times daily Continue diltiazem 60 mg 3 times daily for hypertension Continue to hold pravastatin 40 mg daily for dyslipidemia Check urine electrolytes and eosinophils and sodium and creatinine with acute kidney injury. Avoid nephrotoxic drugs Overall: prognosis remains poor with multiple comorbidities debility, sepsis likely from infected wounds. Inability to protect airway and hypoxemic respiratory failure Famotidine for GI prophylaxis. SCDs for DVT prophylaxis. Holding pharmacological prophylaxis in light of ongoing anemia/transfusions Level 2 follow-up
[2017-11-17] MEDS: Propofol 1000 mg/100 ml Inj 1,000 MG/100 ML BOTTLE IV.CONT PRN (14:03)
--- NOTE | 2017-11-17 18:11 | P.PN ---
Subjective Interval history: Patient intubated and sedated. Family present Physical Exam Vital signs: Vital Signs 11/16/17 18:30 11/16/17 19:00 11/16/17 19:30 Temperature 97.0 F L 97.0 F L 97.2 F L Pulse Rate 83 98 H 103 H Respiratory Rate 25 H 21 19 Blood Pressure 91/63 L 90/57 L 95/64 L Pulse Oximetry 98 100 99 11/16/17 19:53 11/16/17 20:00 11/16/17 20:08 Temperature 97.2 F L 97.2 F L 97 F L Pulse Rate 106 H 102 H 103 H Respiratory Rate 11 L 16 14 Blood Pressure 95/64 L 103/57 L 103/57 L Pulse Oximetry 100 100 98 11/16/17 20:30 11/16/17 20:32 11/16/17 21:00 Temperature 97.0 F L 97.2 F L 97.0 F L Pulse Rate 101 H 99 H 99 H Respiratory Rate 13 10 L 12 Blood Pressure 107/62 107/62 90/55 L Pulse Oximetry 100 99 100 11/16/17 21:04 11/16/17 21:30 11/16/17 21:48 Temperature 97.0 F L 97 F L Pulse Rate 100 H 104 H Respiratory Rate 18 17 16 Blood Pressure 98/58 L 98/58 L Pulse Oximetry 100 100 100 11/16/17 22:00 11/16/17 22:30 11/16/17 23:00 Temperature 96.8 F L 97.0 F L 97.0 F L Pulse Rate 106 H 106 H 102 H Respiratory Rate 21 24 19 Blood Pressure 124/58 L 121/58 L 113/56 L Pulse Oximetry 100 100 100 11/16/17 23:30 11/17/17 00:00 11/17/17 00:30 Temperature 97.0 F L 97.2 F L 97.3 F L Pulse Rate 103 H 104 H 103 H Respiratory Rate 17 17 18 Blood Pressure 119/59 L 127/60 121/66 Pulse Oximetry 100 99 99 11/17/17 01:00 11/17/17 01:30 11/17/17 02:00 Temperature 97.5 F L 97.9 F 98.1 F Pulse Rate 109 H 111 H 110 H Respiratory Rate 18 16 20 Blood Pressure 137/62 119/58 L 117/58 L Pulse Oximetry 96 97 98 11/17/17 02:30 11/17/17 03:00 11/17/17 03:30 Temperature 98.4 F 98.4 F 98.6 F Pulse Rate 112 H 109 H 107 H Respiratory Rate 18 16 16 Blood Pressure 117/58 L 116/58 L 108/54 L Pulse Oximetry 99 98 98 11/17/17 04:00 11/17/17 04:01 11/17/17 04:30 Temperature 98.6 F 98.6 F 98.6 F Pulse Rate 109 H 103 H 109 H Respiratory Rate 24 21 16 Blood Pressure 151/68 H 121/58 L Pulse Oximetry 100 99 100 11/17/17 04:34 11/17/17 05:00 11/17/17 05:30 Temperature 98.6 F 98.1 F Pulse Rate 117 H 114 H Respiratory Rate 16 24 17 Blood Pressure 109/69 114/55 L Pulse Oximetry 100 98 99 11/17/17 06:00 11/17/17 06:30 11/17/17 07:00 Temperature 97.9 F 98.1 F 98.2 F Pulse Rate 111 H 112 H 100 H Respiratory Rate 16 18 17 Blood Pressure 109/57 L 126/58 L 110/54 L Pulse Oximetry 100 99 99 11/17/17 07:30 11/17/17 08:00 11/17/17 08:30 Temperature 98.4 F 98.6 F 99.0 F Pulse Rate 112 H 110 H 112 H Respiratory Rate 17 16 17 Blood Pressure 115/62 114/56 L 106/57 L Pulse Oximetry 99 99 99 11/17/17 09:00 11/17/17 09:30 11/17/17 10:00 Temperature 99.3 F 99.7 F H 99.7 F H Pulse Rate 115 H 119 H 117 H Respiratory Rate 16 16 16 Blood Pressure 122/60 123/58 L 117/57 L Pulse Oximetry 99 98 99 11/17/17 10:30 11/17/17 10:48 11/17/17 11:00 Temperature 99.5 F 99.3 F Pulse Rate 112 H 117 H 110 H Respiratory Rate 16 16 Blood Pressure 112/57 L 112/59 L Pulse Oximetry 98 99 11/17/17 11:30 11/17/17 11:52 11/17/17 12:00 Temperature 99.1 F 99.0 F Pulse Rate 109 H 108 H Respiratory Rate 16 16 16 Blood Pressure 111/56 L 115/55 L Pulse Oximetry 99 98 100 11/17/17 12:30 11/17/17 13:00 11/17/17 14:00 Temperature 99.0 F 98.8 F Pulse Rate 109 H 110 H 109 H Respiratory Rate 16 16 Blood Pressure 115/59 L 114/55 L Pulse Oximetry 100 100 11/17/17 16:00 11/17/17 16:25 Temperature Pulse Rate 104 H Respiratory Rate 16 Blood Pressure Pulse Oximetry 100 Intake & Output 11/16/17 11/17/17 11/17/17 18:59 06:59 18:59 Intake Total 820 / 820 1531 / 1531 1181 / 1181 Output Total 400 / 400 400 / 400 525 / 525 Balance 420 / 420 1131 / 1131 656 / 656 Weight 115.9 kg Intake: IV 500 / 500 550 / 550 450 / 450 Diprivan 1000 mg/100 ml Inj 1, 100 / 100 000 mg In 100 ml @ 5 MCG/KG/MIN 3.261 mls/hr IV.CONT TITRATE PRN Rx#:[id number] Zyvox 600 mg Premix 300 ML @ 300 / 300 300 / 300 300 mls/hr IV.SIG Q12H [place] Rx#: [id number] Merrem Inj 1,000 MG In NS Inj 100 / 100 100 / 100 100 ML @ 200 mls/hr IV.SIG Q12H [place] Rx#:[id number] Mycamine Inj 100 MG In NS Inj 100 / 100 100 ML @ 100 mls/hr IV.SIG Q24H [facility] Rx#:[id number] fentaNYL 10 mcg/mL Premix Drip 250 / 250 250 / 250 2,500 mcg In 250 ml @ 50 MCG/HR 5 mls/hr IV.SIG TITRATE PRN Rx #:[id number] Oral 0 / 0 Oral Supplement 0 / 0 Tube Feeding 220 / 220 461 / 461 551 / 551 Tube Irrigant 100 / 100 120 / 120 Water Bolus Amount 0 / 0 180 / 180 Intake (Blood Product) Amt 400 / 400 Rbc As-3 Leukoreduced Unit 400 / 400 [id number] Output: Stool 300 / 300 300 / 300 400 / 400 Urine Amount (Catheter) 100 / 100 100 / 100 125 / 125 Indwelling Urethral Catheter 100 / 100 100 / 100 125 / 125 Other: Date of Last Bowel Movement 11/16/17 11/17/17 11/17/17 - Routine Abdominal Exam Present: soft, wound (Abdominal wounds generally dry. Minimal drainage in the skin fold. Left leg wound open with packing in place. No active infection but not good granulation base yet) - Urinary Catheter Management Female External Cath placed during this visit: no Indwelling Urethral Catheter Cath placed during this visit: yes, but has since been removed by the nurse Reason for continuing: Severe pressure ulcer/wound Insertion date: 10/09/17 Insertion time: 14:00 Removal date: 10/05/17 Removal time: 17:30 Results - Labs CBC & Chem 7: 11/17/17 05:45 11/17/17 05:45 Laboratory Results - last 24 hr 10/29/17 11/16/17 11/16/17 17:35 15:10 23:43 WBC RBC Hgb Hct MCV MCH MCHC RDW Plt Count MPV Prelim Diff (Auto) Neut % (Auto) Lymph % (Auto) Wright % (Auto) Eos % (Auto) Baso % (Auto) Neut # (Auto) Lymph # (Auto) Wright # (Auto) Eos # (Auto) Baso # (Auto) WBC Differential Seg Neuts % (Manual) Band Neuts % (Manual) Lymphocytes % (Manual) Monocytes % (Manual) Eosinophils % (Manual) Metamyelocytes % (Man) Abs Neuts (Manual) Nucleated RBCs/100 WBC Differential Comment Platelet Estimate Platelet Morphology Target Cells Sodium Potassium Chloride Carbon Dioxide Anion Gap BUN Creatinine Estimated GFR POC Glucose 99 Random Glucose Calcium Total Bilirubin AST ALT Alkaline Phosphatase Total Protein Albumin Beta HCG, Quant Ur Random Creatinine Ur Random Sodium Blood Type O Positive Antibody Screen Negative MTS Gel Crossmatch See Detail See Detail Bld Prod Order Comment 11/17/17 11/17/17 11/17/17 05:45 05:45 05:45 WBC 15.6 H RBC 2.99 L Hgb 8.4 L Hct 24.9 L MCV 83.1 MCH 27.9 MCHC 33.6 RDW 17.6 H Plt Count 87 L MPV 8.2 Prelim Diff (Auto) Slide review pending Neut % (Auto) 76.8 H Lymph % (Auto) 16.3 Wright % (Auto) 4.6 Eos % (Auto) 1.9 Baso % (Auto) 0.4 Neut # (Auto) 12.0 H Lymph # (Auto) 2.6 Wright # (Auto) 0.7 Eos # (Auto) 0.3 Baso # (Auto) 0.1 WBC Differential Manual diff final Seg Neuts % (Manual) 53 Band Neuts % (Manual) 28 H Lymphocytes % (Manual) 11 Monocytes % (Manual) 6 Eosinophils % (Manual) 1 Metamyelocytes % (Man) 1 Abs Neuts (Manual) 12.8 H Nucleated RBCs/100 WBC 2 H Differential Comment . Platelet Estimate Low L Platelet Morphology Normal Target Cells 1+ H Sodium 140 Potassium 4.5 Chloride 110 H Carbon Dioxide 18.0 L Anion Gap 12 BUN 45 H Creatinine 2.48 H Estimated GFR 25 L POC Glucose Random Glucose 86 Calcium 7.9 L Total Bilirubin 0.3 AST 24 ALT 16 Alkaline Phosphatase 142 H Total Protein 4.6 L Albumin 0.8 L Beta HCG, Quant Less than 1 Ur Random Creatinine Ur Random Sodium Blood Type Antibody Screen MTS Gel Crossmatch Bld Prod Order Comment 11/17/17 11/17/17 11/17/17 06:27 06:30 12:45 WBC RBC Hgb Hct MCV MCH MCHC RDW Plt Count MPV Prelim Diff (Auto) Neut % (Auto) Lymph % (Auto) Wright % (Auto) Eos % (Auto) Baso % (Auto) Neut # (Auto) Lymph # (Auto) Wright # (Auto) Eos # (Auto) Baso # (Auto) WBC Differential Seg Neuts % (Manual) Band Neuts % (Manual) Lymphocytes % (Manual) Monocytes % (Manual) Eosinophils % (Manual) Metamyelocytes % (Man) Abs Neuts (Manual) Nucleated RBCs/100 WBC Differential Comment Platelet Estimate Platelet Morphology Target Cells Sodium Potassium Chloride Carbon Dioxide Anion Gap BUN Creatinine Estimated GFR POC Glucose 69 94 105 Random Glucose Calcium Total Bilirubin AST ALT Alkaline Phosphatase Total Protein Albumin Beta HCG, Quant Ur Random Creatinine Ur Random Sodium Blood Type Antibody Screen MTS Gel Crossmatch Bld Prod Order Comment 11/17/17 11/17/17 11/17/17 14:20 14:20 17:36 WBC RBC Hgb Hct MCV MCH MCHC RDW Plt Count MPV Prelim Diff (Auto) Neut % (Auto) Lymph % (Auto) Wright % (Auto) Eos % (Auto) Baso % (Auto) Neut # (Auto) Lymph # (Auto) Wright # (Auto) Eos # (Auto) Baso # (Auto) WBC Differential Seg Neuts % (Manual) Band Neuts % (Manual) Lymphocytes % (Manual) Monocytes % (Manual) Eosinophils % (Manual) Metamyelocytes % (Man) Abs Neuts (Manual) Nucleated RBCs/100 WBC Differential Comment Platelet Estimate Platelet Morphology Target Cells Sodium Potassium Chloride Carbon Dioxide Anion Gap BUN Creatinine Estimated GFR POC Glucose 106 Random Glucose Calcium Total Bilirubin AST ALT Alkaline Phosphatase Total Protein Albumin Beta HCG, Quant Ur Random Creatinine 90 Ur Random Sodium 11 Blood Type Antibody Screen MTS Gel Crossmatch Bld Prod Order Comment Microbiology 11/15/17 13:10 Blood - Line Aerobic Blood Culture - Preliminary No growth in 2 days 11/15/17 13:10 Blood - Line Anaerobic Blood Culture - Preliminary No growth in 2 days 11/15/17 12:30 Blood - Peripheral Aerobic Blood Culture - Preliminary No growth in 2 days 11/15/17 12:30 Blood - Peripheral Anaerobic Blood Culture - Preliminary No growth in 2 days 11/15/17 12:35 Blood - Peripheral Aerobic Blood Culture - Preliminary No growth in 2 days 11/15/17 12:35 Blood - Peripheral Anaerobic Blood Culture - Preliminary No growth in 2 days 11/12/17 12:20 Blood - Peripheral Aerobic Blood Culture - Final No growth in 5 days 11/12/17 12:20 Blood - Peripheral Anaerobic Blood Culture - Final No growth in 5 days 11/12/17 12:25 Blood - Peripheral Aerobic Blood Culture - Final No growth in 5 days 11/12/17 12:25 Blood - Peripheral Anaerobic Blood Culture - Final No growth in 5 days Assessment and Plan - Assessment (1) Fungal infection of skin of abdomen Code(s): B36.9 - Superficial mycosis, unspecified Status: Acute - Plan Continue dressing changes to left groin Keep dry dressings on abdominal wound, as it seems to be keeping most of the wound dry and preventing skin maceration. Discussed Condition With: Family Nurse Merari - Attending Attestation I attest that I had a [id number] encounter with the patient on the same day, and personally performed and documented my assessment and findings in the medical record. The following services were provided during this hospital visit: Chart data review, vital sign assessments/reviewing monitor data Review of consultation notes if present Medication orders/review and/or management Ordering and/or reviewing lab tests Ordering and/or interpreting/reviewing x-rays and/or diagnostic studies Care of the patient and discussion of the patient with the care team Documentation time To help prompt me to consider important information that might be impacting today's encounter and assessment, Information from prior notes written by myself or my colleagues may have been "brought forward/copy and pasted" into today's note.
[2017-11-17] MEDS: traZODone 100 MG Tablet PO SCH (20:33)
[2017-11-17] MEDS: Mirtazapine 15 MG Tablet PO SCH (20:34)
[2017-11-18] MEDS: Propofol 1000 mg/100 ml Inj 1,000 MG/100 ML BOTTLE IV.CONT PRN ×4 (03:25→20:09)
[2017-11-18] MEDS: Oral Hygiene Kit OROPHARYNG SCH ×4 (03:27→23:41)
--- NOTE | 2017-11-18 04:18 | XR ---
EXAM DATE: 11/18/2017 4:14 AM EDT AGE/SEX: 52 years / Female INDICATIONS: Shortness of breath, possible pulmonary disease. CLINICAL DATA: This is the patient's subsequent encounter. Patient reports that signs and symptoms h ave been present for 1 week and indicates a pain score of Nonresponsive. MEDICAL/SURGICAL HISTORY: Sepsis. Anemia. Fusion, cervical. COMPARISON: [facility], CHEST 1V SINGLE AP, 11/15/2017. . FINDINGS: A single AP view of the chest demonstrates an endotracheal tube with the tip 2 cm from the shaka. Na sogastric tube tip in the region of the body of the stomach. Left-sided PICC line with the tip in the region of the brachiocephalic vein on the left. Improving pulmonary infiltrates bilaterally. No effu sions. Heart is normal in size. CONCLUSION: Improving pulmonary infiltrates. Electronically signed by: Jose Baeza MD 11/18/2017 4:17 AM EDT
[2017-11-18 04:39] LABS: Baso % (Auto) 0.3 % (0.0-2.0); Eos # (Auto) 0.3 th/mm3 (0.0-0.4); Eos % (Auto) 1.8 % (0.0-4.0); Hematocrit 23.1 % (35.0-46.0); Hemoglobin 7.9 gm/dL (11.6-15.3); Lymph # (Auto) 2.3 th/mm3 (1.0-4.8); Lymph % (Auto) 15.1 % (9.0-44.0); Mean Corpuscular Hemoglobin 28.1 pg (27.0-34.0); Mean Corpuscular Volume 82.6 fL (80.0-100.0); Mean Platelet Volume 7.3 fL (7.0-11.0); Mono # (Auto) 0.6 th/mm3 (0.0-0.9); Mono % (Auto) 4.2 % (0.0-8.0); Neut % (Auto) 78.6 % (16.0-70.0); Platelet Count 73 th/mm3 (150-450); Red Cell Distribution Width 17.3 % (11.6-17.2); White Blood Count 15.2 th/mm3 (4.0-11.0)
[2017-11-18] MEDS: fentaNYL 10 mcg/mL Premix Drip 2,500 MCG/250 ML BAG IV.SIG PRN ×2 (04:56→18:43)
[2017-11-18 05:06] LABS: Alanine Aminotransferase 12 U/L (10-53); Albumin 0.8 g/dL (3.4-5.0); Alkaline Phosphatase 141 U/L (45-117); Anion Gap 13 meq/L (5-15); Aspartate Aminotransferase 19 U/L (15-37); Blood Urea Nitrogen 56 mg/dL (7-18); Calcium 8.2 mg/dL (8.5-10.1); Carbon Dioxide 18.4 meq/L (21.0-32.0); Chloride 110 meq/L (98-107); Glomerular Filtration Rate 21 mL/min (>89); Glucose,Random 66 mg/dL (74-106); Magnesium 1.7 mg/dL (1.5-2.5); Phosphorus 2.5 mg/dL (2.5-4.9); Potassium 4.5 meq/L (3.5-5.1); Sodium 141 meq/L (136-145); Total Protein 4.6 g/dL (6.4-8.2)
[2017-11-18] MEDS: Insulin NovoLOG Aspart Correctional Sugar Inj SQ SCH ×4 (05:26→23:41)
--- NOTE | 2017-11-18 08:16 | P.PNFP ---
Subjective Interval history: Patient seen and examined this AM. Episodes of low temperatures overnight. Remains sedated and intubated. Continues to have leukocytosis as well as creatinine uptrending, Hgb relatively stable. Tube feedings running at goal 50 cc/hr. <TarundarionCarter akerssh - 11/18/17 08:16> Results - Labs Result diagrams: 11/18/17 04:00 11/18/17 04:00 <Maddy Jackson - 11/18/17 17:53> Abnormal lab results 11/17/17 11/18/17 11/18/17 Range/Units 23:41 04:00 04:00 WBC 15.2 H (4.0-11.0) th/mm3 RBC 2.80 L (4.00-5.30) mil/mm3 Hgb 7.9 L (11.6-15.3) gm/dL Hct 23.1 L (35.0-46.0) % RDW 17.3 H (11.6-17.2) % Plt Count 73 L (150-450) th/mm3 Neut % (Auto) 78.6 H (16.0-70.0) % Neut # (Auto) 12.0 H (1.8-7.7) th/mm3 Band Neuts % (Manual) 38 H (0-6) % Abs Neuts (Manual) 13.2 H (1.8-7.7) th/mm3 Toxic Granulation 2+ H (None) Platelet Estimate Low L (Normal) Target Cells 1+ H (None) Chloride 110 H (98-107) meq/L Carbon Dioxide 18.4 L (21.0-32.0) meq/L BUN 56 H (7-18) mg/dL Creatinine 2.82 H (0.50-1.00) mg/dL Estimated GFR 21 L (>89) mL/min POC Glucose 114 H (68-110) mg/dl Random Glucose 66 L (74-106) mg/dL Calcium 8.2 L (8.5-10.1) mg/dL Alkaline Phosphatase 141 H (45-117) U/L Total Protein 4.6 L (6.4-8.2) g/dL Albumin 0.8 L (3.4-5.0) g/dL Short CBC 11/18/17 Range/Units 04:00 WBC 15.2 H (4.0-11.0) th/mm3 Hgb 7.9 L (11.6-15.3) gm/dL Hct 23.1 L (35.0-46.0) % Plt Count 73 L (150-450) th/mm3 BMP 11/18/17 04:00 Sodium 141 Potassium 4.5 Chloride 110 H Carbon Dioxide 18.4 L BUN 56 H Creatinine 2.82 H Calcium 8.2 L Liver Function 11/18/17 Range/Units 04:00 Total Bilirubin 0.3 (0.2-1.0) mg/dL AST 19 (15-37) U/L ALT 12 (10-53) U/L Alkaline Phosphatase 141 H (45-117) U/L Albumin 0.8 L (3.4-5.0) g/dL <Maddy Jackson - 11/18/17 17:53> Abnormal lab results 11/17/17 11/17/17 11/18/17 Range/Units 05:45 23:41 04:00 WBC 15.2 H (4.0-11.0) th/mm3 RBC 2.80 L (4.00-5.30) mil/mm3 Hgb 7.9 L (11.6-15.3) gm/dL Hct 23.1 L (35.0-46.0) % RDW 17.3 H (11.6-17.2) % Plt Count 73 L (150-450) th/mm3 Neut % (Auto) 78.6 H (16.0-70.0) % Neut # (Auto) 12.0 H (1.8-7.7) th/mm3 Band Neuts % (Manual) 28 H (0-6) % Abs Neuts (Manual) 12.8 H (1.8-7.7) th/mm3 Nucleated RBCs/100 WBC 2 H (0-0) /100 WBC Platelet Estimate Low L (Normal) Target Cells 1+ H (None) Chloride (98-107) meq/L Carbon Dioxide (21.0-32.0) meq/L BUN (7-18) mg/dL Creatinine (0.50-1.00) mg/dL Estimated GFR (>89) mL/min POC Glucose 114 H (68-110) mg/dl Random Glucose (74-106) mg/dL Calcium (8.5-10.1) mg/dL Alkaline Phosphatase (45-117) U/L Total Protein (6.4-8.2) g/dL Albumin (3.4-5.0) g/dL 11/18/17 Range/Units 04:00 WBC (4.0-11.0) th/mm3 RBC (4.00-5.30) mil/mm3 Hgb (11.6-15.3) gm/dL Hct (35.0-46.0) % RDW (11.6-17.2) % Plt Count (150-450) th/mm3 Neut % (Auto) (16.0-70.0) % Neut # (Auto) (1.8-7.7) th/mm3 Band Neuts % (Manual) (0-6) % Abs Neuts (Manual) (1.8-7.7) th/mm3 Nucleated RBCs/100 WBC (0-0) /100 WBC Platelet Estimate (Normal) Target Cells (None) Chloride 110 H (98-107) meq/L Carbon Dioxide 18.4 L (21.0-32.0) meq/L BUN 56 H (7-18) mg/dL Creatinine 2.82 H (0.50-1.00) mg/dL Estimated GFR 21 L (>89) mL/min POC Glucose (68-110) mg/dl Random Glucose 66 L (74-106) mg/dL Calcium 8.2 L (8.5-10.1) mg/dL Alkaline Phosphatase 141 H (45-117) U/L Total Protein 4.6 L (6.4-8.2) g/dL Albumin 0.8 L (3.4-5.0) g/dL Short CBC 11/18/17 Range/Units 04:00 WBC 15.2 H (4.0-11.0) th/mm3 Hgb 7.9 L (11.6-15.3) gm/dL Hct 23.1 L (35.0-46.0) % Plt Count 73 L (150-450) th/mm3 BMP 11/18/17 04:00 Sodium 141 Potassium 4.5 Chloride 110 H Carbon Dioxide 18.4 L BUN 56 H Creatinine 2.82 H Calcium 8.2 L Liver Function 11/18/17 Range/Units 04:00 Total Bilirubin 0.3 (0.2-1.0) mg/dL AST 19 (15-37) U/L ALT 12 (10-53) U/L Alkaline Phosphatase 141 H (45-117) U/L Albumin 0.8 L (3.4-5.0) g/dL <MinScot salter - 11/18/17 08:16> - Imaging Impressions Chest X-Ray 11/18/17 06:00 CONCLUSION: Improving pulmonary infiltrates. <Maddy Jackson - 11/18/17 17:53> Impressions Chest X-Ray 11/18/17 06:00 CONCLUSION: Improving pulmonary infiltrates. <Scot Vidal - 11/18/17 08:16> Physical Exam Vital signs: Vital Signs 11/17/17 18:00 11/17/17 20:00 11/17/17 21:19 Temperature 98.7 F Pulse Rate 109 H 106 H Respiratory Rate 18 19 Blood Pressure 121/62 Pulse Oximetry 100 100 11/17/17 22:00 11/17/17 23:51 11/18/17 00:00 Temperature 97.2 F L Pulse Rate 103 H 93 H Respiratory Rate 16 16 Blood Pressure 116/59 L Pulse Oximetry 100 100 11/18/17 02:00 11/18/17 04:00 11/18/17 04:11 Temperature 95.9 F L Pulse Rate 87 80 Respiratory Rate 16 16 Blood Pressure 103/57 L Pulse Oximetry 99 99 11/18/17 05:26 11/18/17 06:00 11/18/17 08:00 Temperature Pulse Rate 77 Respiratory Rate 18 16 Blood Pressure Pulse Oximetry 99 11/18/17 12:41 11/18/17 14:12 Temperature Pulse Rate Respiratory Rate 14 17 Blood Pressure Pulse Oximetry 100 100 Intake & Output 11/17/17 11/18/17 11/18/17 18:59 06:59 18:59 Intake Total 1181 / 1181 2081 / 2081 400 / 400 Output Total 525 / 525 1500 / 1500 Balance 656 / 656 581 / 581 400 / 400 Weight 117.3 kg Intake: IV 450 / 450 1500 / 1500 400 / 400 Diprivan 1000 mg/100 ml Inj 1, 100 / 100 100 / 100 100 / 100 000 mg In 100 ml @ 5 MCG/KG/MIN 3.261 mls/hr IV.CONT TITRATE PRN Rx#:[id number] Zyvox 600 mg Premix 300 ML @ 600 / 600 300 / 300 300 mls/hr IV.SIG Q12H [facility] Rx#: [id number] Merrem Inj 1,000 MG In NS Inj 100 / 100 200 / 200 100 ML @ 200 mls/hr IV.SIG Q12H [facility] Rx#:[id number] Mycamine Inj 100 MG In NS Inj 100 / 100 100 ML @ 100 mls/hr IV.SIG Q24H [facility] Rx#:[id number] fentaNYL 10 mcg/mL Premix Drip 250 / 250 500 / 500 2,500 mcg In 250 ml @ 50 MCG/HR 5 mls/hr IV.SIG TITRATE PRN Rx #:[id number] Tube Feeding 551 / 551 461 / 461 Tube Irrigant 120 / 120 Water Bolus Amount 180 / 180 Output: Stool 400 / 400 1200 / 1200 Urine Amount (Catheter) 125 / 125 300 / 300 Indwelling Urethral Catheter 125 / 125 300 / 300 Other: Date of Last Bowel Movement 11/17/17 11/18/17 11/18/17 <Maddy Jackson M - 11/18/17 17:53> Vital Signs 11/17/17 08:30 11/17/17 09:00 11/17/17 09:30 Temperature 99.0 F 99.3 F 99.7 F H Pulse Rate 112 H 115 H 119 H Respiratory Rate 17 16 16 Blood Pressure 106/57 L 122/60 123/58 L Pulse Oximetry 99 99 98 11/17/17 10:00 11/17/17 10:30 11/17/17 10:48 Temperature 99.7 F H 99.5 F Pulse Rate 117 H 112 H 117 H Respiratory Rate 16 16 Blood Pressure 117/57 L 112/57 L Pulse Oximetry 99 98 11/17/17 11:00 11/17/17 11:30 11/17/17 11:52 Temperature 99.3 F 99.1 F Pulse Rate 110 H 109 H Respiratory Rate 16 16 16 Blood Pressure 112/59 L 111/56 L Pulse Oximetry 99 99 98 11/17/17 12:00 11/17/17 12:30 11/17/17 13:00 Temperature 99.0 F 99.0 F 98.8 F Pulse Rate 108 H 109 H 110 H Respiratory Rate 16 16 16 Blood Pressure 115/55 L 115/59 L 114/55 L Pulse Oximetry 100 100 100 11/17/17 14:00 11/17/17 16:00 11/17/17 16:25 Temperature Pulse Rate 109 H 104 H Respiratory Rate 16 Blood Pressure Pulse Oximetry 100 11/17/17 18:00 11/17/17 20:00 11/17/17 21:19 Temperature 98.7 F Pulse Rate 109 H 106 H Respiratory Rate 18 19 Blood Pressure 121/62 Pulse Oximetry 100 100 11/17/17 22:00 11/17/17 23:51 11/18/17 00:00 Temperature 97.2 F L Pulse Rate 103 H 93 H Respiratory Rate 16 16 Blood Pressure 116/59 L Pulse Oximetry 100 100 11/18/17 02:00 11/18/17 04:00 11/18/17 04:11 Temperature 95.9 F L Pulse Rate 87 80 Respiratory Rate 16 16 Blood Pressure 103/57 L Pulse Oximetry 99 99 11/18/17 05:26 11/18/17 06:00 Temperature Pulse Rate 77 Respiratory Rate 18 Blood Pressure Pulse Oximetry Intake & Output 11/17/17 11/18/17 11/18/17 18:59 06:59 18:59 Intake Total 1181 / 1181 2081 / 2081 Output Total 525 / 525 1500 / 1500 Balance 656 / 656 581 / 581 Weight 117.3 kg Intake: IV 450 / 450 1500 / 1500 Diprivan 1000 mg/100 ml Inj 1, 100 / 100 100 / 100 000 mg In 100 ml @ 5 MCG/KG/MIN 3.261 mls/hr IV.CONT TITRATE PRN Rx#:[id number] Zyvox 600 mg Premix 300 ML @ 600 / 600 300 mls/hr IV.SIG Q12H [facility] Rx#: [id number] Merrem Inj 1,000 MG In NS Inj 100 / 100 200 / 200 100 ML @ 200 mls/hr IV.SIG Q12H [facility] Rx#:[id number] Mycamine Inj 100 MG In NS Inj 100 / 100 100 ML @ 100 mls/hr IV.SIG Q24H [facility] Rx#:[id number] fentaNYL 10 mcg/mL Premix Drip 250 / 250 500 / 500 2,500 mcg In 250 ml @ 50 MCG/HR 5 mls/hr IV.SIG TITRATE PRN Rx #:[id number] Tube Feeding 551 / 551 461 / 461 Tube Irrigant 120 / 120 Water Bolus Amount 180 / 180 Output: Stool 400 / 400 1200 / 1200 Urine Amount (Catheter) 125 / 125 300 / 300 Indwelling Urethral Catheter 125 / 125 300 / 300 Other: Date of Last Bowel Movement 11/17/17 11/18/17 <Scot Vidal - 11/18/17 08:16> Narrative: GENERAL: Morbidly obese -[place] female lying in bed intubated and sedated with soft restraints intact. HEENT: Atraumatic, normocephalic. No rhinorrhea. ET tube in place. CARDIOVASCULAR: Tachycardic rate (baseline) and regular rhythm without obvious murmurs, gallops, or rubs. RESPIRATORY: Bilateral rhonchi throughout. Breath sounds difficult to auscultate due to body habitus and ventilator noise. No increased work of breathing. GASTROINTESTINAL: Abdomen diffuse, soft with soft bowel sounds. Rectal tube in place with liquid fecal material in reservoir. Hopper catheter in place with minimal urinary output in reservoir. MUSCULOSKELETAL: No cyanosis. Bilateral upper extremity 2+ edema. Stable bilateral lower extremity 2+ with increased firmness. Left knee effusion stable and nontender to palpation. SCDs in place. NEURO/PSYCH: Patient intubated and sedated. Responds to verbal stimuli with eye opening and is able to squeeze my hand on command. SKIN: Cool and dry. No rash. PICC line inserted without surrounding erythema, warmth, or other signs of infection. ABD wounds: Currently bandaged with areas of purulent drainage on the pelvic wounds. Tracking wounds packed. No signs of hemorrhage. <Scot Vidal - 11/18/17 08:16> - Urinary Catheter Management Female External Cath placed during this visit: no <Maddy Jackson - 11/18/17 17:12> no <Scot Vidal 11/18/17 08:16> Indwelling Urethral Catheter Cath placed during this visit: no <Maddy Jackson - 11/18/17 17:12> yes, but has since been removed by the nurse <Scot Vidal 11/18/17 08:16> Reason for continuing: Severe pressure ulcer/wound <Scot Vidal - 08:16> Insertion date: 10/09/17 <Scot Vidal - 11/18/17 08:16> Insertion time: 14:00 <Scot Vidal - 11/18/17 08:16> Removal date: 10/05/17 <Scot Vidal - 11/18/17 08:16> Removal time: 17:30 <Scot Vidal - 11/18/17 08:16> Assessment and Plan - Assessment (1) Respiratory failure Code(s): J96.90 - Respiratory failure, unspecified, unspecified whether with hypoxia or hypercapnia Status: Acute (2) Sepsis Code(s): A41.9 - Sepsis, unspecified organism Status: Acute (3) Open wound of abdominal wall Code(s): S31.109A - Unspecified open wound of abdominal wall, unspecified quadrant without penetration into peritoneal cavity, initial encounter Status : Acute (4) Aspiration into airway Code(s): T17.908A - Unspecified foreign body in respiratory tract, part unspecified causing other injury, initial encounter Status: Acute (5) C. difficile diarrhea Code(s): A04.72 - Enterocolitis due to Clostridium difficile, not specified as recurrent Status: Acute (6) Anemia Code(s): D64.9 - Anemia, unspecified Status: Resolved (7) Creatinine elevation Code(s): R79.89 - Other specified abnormal findings of blood chemistry Status : Acute (8) Thrombocytopenia Code(s): D69.6 - Thrombocytopenia, unspecified Status: Acute (9) Poor nutrition Code(s): E63.9 - Nutritional deficiency, unspecified Status: Acute (10) Schizophrenia Code(s): F20.9 - Schizophrenia, unspecified Status: Chronic (11) Altered mental status Code(s): R41.82 - Altered mental status, unspecified Status: Acute (12) Cellulitis of knee, left Code(s): L03.116 - Cellulitis of left lower limb Status: Acute (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 - Infection and inflammatory reaction due to unspecified internal joint prosthesis, initial encounter Status: Suspected (14) Hypertension Code(s): I10 - Essential (primary) hypertension Status: Acute (15) Tachycardia Code(s): R00.0 - Tachycardia, unspecified Status: Chronic (16) Nutrition, metabolism, and development symptoms Code(s): R63.8 - Other symptoms and signs concerning food and fluid intake Status: Acute (17) Rheumatoid arthritis Code(s): M06.9 - Rheumatoid arthritis, unspecified Status: Acute Plan: She was treated for this as an outpt but has not been able to have any treatment here in the hospital due to her infections. This may have contributed to her ending up so debilitated as she will not move with the pain. It also can contribute to so many other problems and it is very difficult to separate out what effect this has had on her during this hospital stay <Maurisio Jakcsonon Parris - 11/18/17 17:53> (1) Respiratory failure Code(s): J96.90 - Respiratory failure, unspecified, unspecified whether with hypoxia or hypercapnia Status: Acute Plan: Patient with possible aspiration episode on 11/12/17 with subsequent acute respiratory failure requiring intubation -ABG 11/12/17:7.3/33/219/16 -CXR 11/15/17: Mild bibasilar consolidation, improved on the right and slightly worse on the left. -Patient intubated and sedated -Coagulating Bath Operator consulted -Palliative care consulted (2) Sepsis Code(s): A41.9 - Sepsis, unspecified organism Status: Acute Plan: Patient meeting sepsis criteria with core body temperature of approximately 94 , leukocytosis, and tachycardia. Suspected site of infection as her extensive abdominal wounds. -Please see plan as below (3) Open wound of abdominal wall Code(s): S31.109A - Unspecified open wound of abdominal wall, unspecified quadrant without penetration into peritoneal cavity, initial encounter Status : Acute Plan: Large abdominal and pelvic wounds that appear not to be healing likely secondary to poor nutritional status -Wound Culture 09/27/17: Pseudomonas and Group B Step -Blood Cultures 10/24/17: Negative -Tissue Cultures 10/09/17: Negative -Abdominal wound culture 11/01/17: Group D Enterococcus, sensitive to Daptomycin ; Fungal species -Blood Culture 11/07/17 per TPN protocol: Negative to date -Blood Culture 11/12/17: NTD -PICC Line/Blood Cultures 11/15/17: no growth to date -Infectious disease consulted -General surgery consulted -Surgical debridement 10/09, wound VAC applied. -VAC changed 10/12 removed 10/15. -Debridement, irrigation, with suturing performed on 10/16. -I&D of abdomen and bilateral thighs, placement of Amniox with wound closure on 11/01/17 -Dressing changes per general surgery Medications: -Meropenem (11/13/17- ) -Micafungin (11/13/17- ) -Linezolid (11/13/17- ) Levaquin (11/10/17-11/15/17) -Daptomycin IV for suspected VRE per ID (11/03/17-11/13/17) -Cefepime IV (09/29/17-11/08/17) discontinued due to thrombocytopenia and elevated creatinine -Flagyl (11/10/17- ) -Diflucan 500mg daily (11/12/17) -Fentanyl added to assist with pain control (4) Aspiration into airway Code(s): T17.908A - Unspecified foreign body in respiratory tract, part unspecified causing other injury, initial encounter Status: Acute Plan: Patient with possible aspiration episode overnight 11/09/17 with another episode on 11/12/17. Patient now with respiratory failure as above -Chest x-ray 11/09/12: Interval development of left lower lobe consolidation -CXR 11/10/17: Left upper extremity PICC distal tip at the junction of the SVC and brachiocephalic vein. Bibasilar airspace opacity could represent atelectasis versus consolidation. -CXR 11/12/17: Interim intubation. Endotracheal tip at the shaka. Small effusion and mild consolidation developing at the right base. -Sputum cultures: Gram stain with rare gram positive cocci in pairs, many WBC, mucus; Culture with light growth of normal respiratory lisa at 24 hours. -CXR 11/15/17: Mild bibasilar consolidation, improved on the right and slightly worse on the left. Speech therapy consulted for swallow evaluation once extubated -ID consulted Medications: -Meropenem (11/13/17- ) -Micafungin (11/13/17- ) -Linezolid (11/13/17- ) Levaquin (11/10/17-11/15/17) -Flagyl (11/10/17-11/13/17) (5) C. difficile diarrhea Code(s): A04.72 - Enterocolitis due to Clostridium difficile, not specified as recurrent Status: Acute Plan: -C diff cultures positive 10/19/17 -Patient meeting criteria for severe C. difficile infection -Vancomycin PO 125 4 times daily (10/23/17- ) -Difficid 200mg BID (11/15/17- ) -Continue with probiotics. -Rectal tube in place (6) Anemia Code(s): D64.9 - Anemia, unspecified Status: Resolved Plan: -Patient found to have asymptomatic anemia H/H of 20.3 with MCV of 82 on -Rectal tube and Hopper catheter without any signs of acute bleeding -Dressings without obvious signs of bleeding -11 units total thus far during admission (11/16/17 most recent) -Continue to monitor (7) Creatinine elevation Code(s): R79.89 - Other specified abnormal findings of blood chemistry Status : Acute Plan: Patient with acute creatinine elevation with starting TPN. -Unknown etiology at this time -Patient with decreasing urinary output -Hopper exchanged for possible obstruction; patient with continued decreased output -Electrolytes WNL -Continue to monitor creatinine, I/Os (8) Thrombocytopenia Code(s): D69.6 - Thrombocytopenia, unspecified Status: Acute Plan: Patient with decreasing platelet count -Etiology unknown -No signs of acute bruising/bleeding on limited skin exam due to body habitus -Continue to monitor (9) Poor nutrition Code(s): E63.9 - Nutritional deficiency, unspecified Status: Acute Plan: -Patient with poor nutritional status during hospitalization -Severe concern of poor wound healing secondary to poor nutritional status -Staff Research Associate consulted for calorie count and nutritional guidance, which has been limited due to NPO status prior to surgery, however patient continues to have poor intake -Multivitamin IV added with Hermes supplementation BID -Albumin levels continued to be decreased -Patient unable to receive 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 Briefly discussed with surgery about the possibility of a JG tube versus surgical placement of PEG tube, deferred as patient will likely not heal from surgical procedure due to nutritional status -NG tube placed with vital 1.5 tube feeds started per dietary TPN, Clinimix E 08/05 @ 65 mls/hr with 20% lipids 250 mls 2x/week (11/07/17-) (10) Schizophrenia Code(s): F20.9 - Schizophrenia, unspecified Status: Chronic Plan: -Psychiatry consulted upon admission -Patient with increased agitation and disorientation on 11/09/17; during episode patient pulled PICC line and attempted to pull out rectal/Hopper; patient required 1 mg Haldol for agitation during episode -Psychiatry consulted for further evaluation Medications: -Haldol 1-2 mg IV/IM every 8 hours as needed for aggressive behavior/agitation -Continue Abilify 30 mg for psychosis -Continue buspirone 30 mg, trazodone 100 mg and Cymbalta 60 mg -Started Mirtazapine 15mg QHS to assist with mood as well as appetite stimulant -Hold anticholinergics per Psych (11) Altered mental status Code(s): R41.82 - Altered mental status, unspecified Status: Acute Plan: Patient with altered mental status overnight 11/11/17 with possible aspiration due to new dysphagia. Patient's mental status continues to decline with a GCS score of 10. Likely related to hypoglycemia as patient did not have access and was not able to receive nutrition via PICC line and is n.p.o. for failed swallow study. -CT Head: Interval enlargement of the ventricular system of uncertain etiology. No clear evidence of an obstructing process. Otherwise stable evaluation without evidence of acute infarct, hemorrhage, mass, or edema. -MRI wo contrast: Negative for acute process -Speech therapy consulted Neurology consulted, appreciate recommendations -No active neurological issues -Coagulating Bath Operator consulted, appreciate recommendations Medications: -Glucagon given overnight -STAT buccal glucose given -TPN re-initiated -All PO medications placed on Hold -Haldol 1mg PRN for agitation/hallucinations -Lopressor 5mg IV PRN for HR >120 every 15min (12) Hypoglycemia Code(s): E16.2 - Hypoglycemia, unspecified Status: Resolved Plan: Patient presenting with altered mental status 11/11/17 Differential remains wide, however patient also with hypoglycemia likely contributing to mental status Patient currently n.p.o. due to dysphagia Patient has lost PICC line 2 and currently does not have IV access due to poor vasculature, therefore she has been unable to receive TPN, fluids, or antibiotics at this time Stat consult to IR for PICC line placement, DW Dr. 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 She completed rehabilitation and was discharged home August 23. Patient was on approximately 2 weeks of po Keflex 500 mg. Per Ortho, examination of left knee shows no evidence of infection. (15) Hypokalemia Code(s): E87.6 - Hypokalemia Status: Resolved Plan: -Patient with hypokalemia during hospitalization. Appears to be not tolerating ER capsules as they were found whole in her rectal tube reservoir. Medications: -Patient placed on ICU electrolyte protocol (16) Fall Code(s): W19.XXXA - Unspecified fall, initial encounter Status: Acute Plan: Patient with fall on 10/19/17. No loss of consciousness, no head injury, left knee and ankle pain. -Knee x-ray- Prosthesis in place, No abnormality appreciated -Ankle x-ray- No abnormality appreciated -Patient to continue with PT (17) Hypertension Code(s): I10 - Essential (primary) hypertension Status: Acute Plan: History of hypertension Hold oral medications below -Continue to monitor -Clonidine PRN for BP > 180/100 (18) Tachycardia Code(s): R00.0 - Tachycardia, unspecified Status: Chronic Plan: -Patient with chronic history of tachycardia -EKG 09/27/17: Sinus tachycardia with rate of [address] or interval changes. (Per medical team read) Medications: -Lopressor 5mg IV PRN for HR >120 if unable to tolerate PO -Continue home diltiazem and carvedilol (19) Nutrition, metabolism, and development symptoms Code(s): R63.8 - Other symptoms and signs concerning food and fluid intake Status: Acute Plan: Fluids: NG tube feeds with Vital 1.5 @ 40 mls/hr goal, plan to wean TPN with SSI as needed Electrolytes: Replete as needed per ICU protocol Nutrition: -Staff Research Associate consulted for nutritional guidance -NG tube placed and tube feeds started with vital 1.5 at 50 mils per hour (goal) -TPN Clinimix E 08/05 @ 65 mls/hr with 20% lipids 250 mls 2x/week (11/07/17- ); plan to wean as tolerated now that NG tube feeds have been initiated PICC line placed in left upper extremity DVT prophylaxis: SCDs, Defer medical prophylaxis due to anemia <Scot Vidal - 11/18/17 08:06> - Assessment and Plan . <Scot Vidal - 11/18/17 08:16> - Attending Attestation The exam, history, and the medical decision-making described in the above note were completed with the assistance of the resident physician. I reviewed and agree with the findings presented. I attest that I had a [id number] encounter with the patient on the same day, and personally performed and documented my assessment and findings in the medical record. Poor woman is so very ill. Her family is loving and supportive and want to continue with full active treatment. <Maddy Jackson - 11/18/17 17:53> <Scot Vidal - Last Filed: 11/18/17 08:06> (1) Respiratory failure Qualifiers: Chronicity: acute (3) Open wound of abdominal wall Qualifiers: Encounter type: initial encounter Qualified Code(s): S31.109A - Unspecified open wound of abdominal wall, unspecified quadrant without penetration into peritoneal cavity, initial encounter (4) Aspiration into airway Qualifiers: Encounter type: initial encounter Qualified Code(s): T17.908A - Unspecified foreign body in respiratory tract, part unspecified causing other injury, initial encounter (6) Anemia Qualifiers: Anemia type: unspecified type Qualified Code(s): D64.9 - Anemia, unspecified (11) Altered mental status Qualifiers: Altered mental status type: unspecified Qualified Code(s): R41.82 - Altered mental status, unspecified (17) Hypertension Qualifiers: Hypertension type: essential hypertension Qualified Code(s): I10 - Essential (primary) hypertension <Maddy Jackson - Last Filed: 11/18/17 17:53> (1) Respiratory failure Qualifiers: Chronicity: acute (3) Open wound of abdominal wall Qualifiers: Encounter type: initial encounter Qualified Code(s): S31.109A - Unspecified open wound of abdominal wall, unspecified quadrant without penetration into peritoneal cavity, initial encounter (4) Aspiration into airway Qualifiers: Encounter type: initial encounter Qualified Code(s): T17.908A - Unspecified foreign body in respiratory tract, part unspecified causing other injury, initial encounter (6) Anemia Qualifiers: Anemia type: unspecified type Qualified Code(s): D64.9 - Anemia, unspecified (11) Altered mental status Qualifiers: Altered mental status type: unspecified Qualified Code(s): R41.82 - Altered mental status, unspecified (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 (17) Rheumatoid arthritis Qualifiers: Rheumatoid arthritis location: unspecified site Rheumatoid factor presence: unspecified presence Qualified Code(s): M06.9 - Rheumatoid arthritis, unspecified <Scot Vidal - Last Filed: 11/18/17 08:06> (1) Respiratory failure Qualifiers: Chronicity: acute (3) Open wound of abdominal wall Qualifiers: Encounter type: initial encounter Qualified Code(s): S31.109A - Unspecified open wound of abdominal wall, unspecified quadrant without penetration into peritoneal cavity, initial encounter (4) Aspiration into airway Qualifiers: Encounter type: initial encounter Qualified Code(s): T17.908A - Unspecified foreign body in respiratory tract, part unspecified causing other injury, initial encounter (6) Anemia Qualifiers: Anemia type: unspecified type Qualified Code(s): D64.9 - Anemia, unspecified (11) Altered mental status Qualifiers: Altered mental status type: unspecified Qualified Code(s): R41.82 - Altered mental status, unspecified (17) Hypertension Qualifiers: Hypertension type: essential hypertension Qualified Code(s): I10 - Essential (primary) hypertension <Maddy Jackson - Last Filed: 11/18/17 17:53> (1) Respiratory failure Qualifiers: Chronicity: acute (3) Open wound of abdominal wall Qualifiers: Encounter type: initial encounter Qualified Code(s): S31.109A - Unspecified open wound of abdominal wall, unspecified quadrant without penetration into peritoneal cavity, initial encounter (4) Aspiration into airway Qualifiers: Encounter type: initial encounter Qualified Code(s): T17.908A - Unspecified foreign body in respiratory tract, part unspecified causing other injury, initial encounter (6) Anemia Qualifiers: Anemia type: unspecified type Qualified Code(s): D64.9 - Anemia, unspecified (11) Altered mental status Qualifiers: Altered mental status type: unspecified Qualified Code(s): R41.82 - Altered mental status, unspecified (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 (17) Rheumatoid arthritis Qualifiers: Rheumatoid arthritis location: unspecified site Rheumatoid factor presence: unspecified presence Qualified Code(s): M06.9 - Rheumatoid arthritis, unspecified
[2017-11-18] MEDS: Folic Acid 1 MG Tablet PO SCH (08:46)
[2017-11-18] MEDS: Hypromellose 0.3% Opth Gel 10 GM Bottle EACH EYE SCH ×2 (08:46→20:44)
[2017-11-18] MEDS: Lactobacillus Acidophilus/L. Spores Tablet PO SCH ×2 (08:46→20:45)
[2017-11-18] MEDS: Duloxetine 60 MG DR Capsule PO SCH (08:46)
[2017-11-18] MEDS: Pantoprazole Inj 40 MG Vial IV.PUSH SCH (08:47)
[2017-11-18 09:49] LABS: Lymphocytes 11 % (9-44); Monocytes 2 % (0-8); Platelet Morphology Normal (Normal); Target Cells 1+; Toxic Granulation 2+
[2017-11-18] MEDS: Chlorhexidine 0.12% Oral Kit 15 ML UDC OROPHARYNG SCH ×2 (10:53→20:44)
[2017-11-18] MEDS: Heparin Central Flush 100 UNIT/ML 5 ML Vial IV.FLUSH SCH ×2 (10:56)
--- NOTE | 2017-11-18 12:35 | P.PNID ---
Subjective Remarks: ID coverage. 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 Post op it appears she was discharged to a rehab. She was discharged from the rehab to home with her on August 23. Patient reports she lives at home with her who is on disability. Unsure of nature of disability at this time and his ability to take care of her. She was reportedly able to ambulate on her own initially followed by weakness and need for walker and then to a point where she did not want to get out of bed. It has been reported to others that she had some discharge at the left surgical site area and ortho surgeon prescribed oral keflex which reportedly lead to some improvement. She reportedly completed a week of antibiotic treatment with last day scheduled for today with some improvement in her knee pain. However her stated that she was starting to have more drainage from her knee just over the past day or so. He had pointed to several areas that had been draining pus from just above and just below the knee. He stated that a cup full of pus would drain at a time. Additionally the abdominal fold wounds appear to have been present for atleast 3 weeks now. With this background patient presented to the ED with complaints of worsening shortness of breath and mental status accompanied with symptoms of diarrhea (3 days, non-bloody) and decreased p.o. intake (5 days). She was also brought into the hospital due to infection of her knee that improved with Keflex p.o but now has returned with new additional drainage over the past few days. ID consulted for evaluation and Mment of Left knee prosthetic joint infection and neutropenia. Patient underwent incision and debridement of the inferior abdominal wall and proximal inner thighs on 10/12/2017. Since then she has had multiple surgeries done, last one done 11/01, closure of wounds Receiving IV antibiotics for left knee infection/C difficile. CT scan showed small joint effusion and subcutaneous edema of the fat at the left knee. Notes reviewed D/W RN overnight events. at bedside. Patient is on CPAP. Noted to have low-grade fever earlier but she had the bear hugger blanket in place. No distress. Noted to have thick tenacious endotracheal secretions. Diarrhea ongoing via rectal tube. White blood cell count remain elevated. Antibiotics: Meropenem Levaquin Zyvox Micafungin PO Vancomycin Lines: PICC Lines ok. Past Medical History: reviewed Allergies/Adverse Reactions: Allergies amoxicillin Allergy (Verified 09/27/17 17:54) Swelling Objective Vital Signs 11/17/17 13:00 11/17/17 14:00 11/17/17 16:00 Temperature 98.8 F Pulse Rate 110 H 109 H 104 H Respiratory Rate 16 Blood Pressure 114/55 L Pulse Oximetry 100 11/17/17 16:25 11/17/17 18:00 11/17/17 20:00 Temperature 98.7 F Pulse Rate 109 H 106 H Respiratory Rate 16 18 Blood Pressure 121/62 Pulse Oximetry 100 100 11/17/17 21:19 11/17/17 22:00 11/17/17 23:51 Temperature Pulse Rate 103 H Respiratory Rate 19 16 Blood Pressure Pulse Oximetry 100 100 11/18/17 00:00 11/18/17 02:00 11/18/17 04:00 Temperature 97.2 F L 95.9 F L Pulse Rate 93 H 87 80 Respiratory Rate 16 16 Blood Pressure 116/59 L 103/57 L Pulse Oximetry 100 99 11/18/17 04:11 11/18/17 05:26 11/18/17 06:00 Temperature Pulse Rate 77 Respiratory Rate 16 18 Blood Pressure Pulse Oximetry 99 11/18/17 08:00 Temperature Pulse Rate Respiratory Rate 16 Blood Pressure Pulse Oximetry 99 Intake & Output 11/17/17 11/18/17 11/18/17 18:59 06:59 18:59 Intake Total 1181 / 1181 2081 / 2081 400 / 400 Output Total 525 / 525 1500 / 1500 Balance 656 / 656 581 / 581 400 / 400 Weight 117.3 kg Intake: IV 450 / 450 1500 / 1500 400 / 400 Diprivan 1000 mg/100 ml Inj 1, 100 / 100 100 / 100 100 / 100 000 mg In 100 ml @ 5 MCG/KG/MIN 3.261 mls/hr IV.CONT TITRATE PRN Rx#:[id number] Zyvox 600 mg Premix 300 ML @ 600 / 600 300 / 300 300 mls/hr IV.SIG Q12H [facility] Rx#: [id number] Merrem Inj 1,000 MG In NS Inj 100 / 100 200 / 200 100 ML @ 200 mls/hr IV.SIG Q12H [facility] Rx#:[id number] Mycamine Inj 100 MG In NS Inj 100 / 100 100 ML @ 100 mls/hr IV.SIG Q24H [facility] Rx#:[id number] fentaNYL 10 mcg/mL Premix Drip 250 / 250 500 / 500 2,500 mcg In 250 ml @ 50 MCG/HR 5 mls/hr IV.SIG TITRATE PRN Rx #:[id number] Tube Feeding 551 / 551 461 / 461 Tube Irrigant 120 / 120 Water Bolus Amount 180 / 180 Output: Stool 400 / 400 1200 / 1200 Urine Amount (Catheter) 125 / 125 300 / 300 Indwelling Urethral Catheter 125 / 125 300 / 300 Other: Date of Last Bowel Movement 11/17/17 11/18/17 11/18/17 11/15/17 13:10 Blood - Line Aerobic Blood Culture - Preliminary No growth in 3 days 11/15/17 13:10 Blood - Line Anaerobic Blood Culture - Preliminary No growth in 3 days 11/15/17 12:30 Blood - Peripheral Aerobic Blood Culture - Preliminary No growth in 3 days 11/15/17 12:30 Blood - Peripheral Anaerobic Blood Culture - Preliminary No growth in 3 days 11/15/17 12:35 Blood - Peripheral Aerobic Blood Culture - Preliminary No growth in 3 days 11/15/17 12:35 Blood - Peripheral Anaerobic Blood Culture - Preliminary No growth in 3 days 11/12/17 12:20 Blood - Peripheral Aerobic Blood Culture - Final No growth in 5 days 11/12/17 12:20 Blood - Peripheral Anaerobic Blood Culture - Final No growth in 5 days 11/12/17 12:25 Blood - Peripheral Aerobic Blood Culture - Final No growth in 5 days 11/12/17 12:25 Blood - Peripheral Anaerobic Blood Culture - Final No growth in 5 days 11/01/17 17:45 Wound - Abdominal Acid Fast Bacilli Smear - Final No acid fast bacilli seen 11/01/17 17:45 Wound - Abdominal Mycobacterial Culture - Preliminary No growth in 2 weeks 11/13/17 12:30 Sputum - Endotracheal Gram Stain - Final 11/13/17 12:30 Sputum - Endotracheal Sputum Culture - Final Light growth normal respiratory l[facility] Lab - Hematology Results 11/17/17 11/18/17 05:45 04:00 WBC 15.6 H 15.2 H RBC 2.99 L 2.80 L Hgb 8.4 L 7.9 L Hct 24.9 L 23.1 L MCV 83.1 82.6 MCH 27.9 28.1 MCHC 33.6 34.0 RDW 17.6 H 17.3 H Plt Count 87 L 73 L MPV 8.2 7.3 Prelim Diff (Auto) Slide review pending Slide review pending Neut % (Auto) 76.8 H 78.6 H Lymph % (Auto) 16.3 15.1 [place] % (Auto) 4.6 4.2 Eos % (Auto) 1.9 1.8 Baso % (Auto) 0.4 0.3 Neut # (Auto) 12.0 H 12.0 H Lymph # (Auto) 2.6 2.3 [place] # (Auto) 0.7 0.6 Eos # (Auto) 0.3 0.3 Baso # (Auto) 0.1 0.0 WBC Differential Manual diff final Manual diff final Seg Neuts % (Manual) 53 49 Band Neuts % (Manual) 28 H 38 H Lymphocytes % (Manual) 11 11 Monocytes % (Manual) 6 2 Eosinophils % (Manual) 1 Metamyelocytes % (Man) 1 Abs Neuts (Manual) 12.8 H 13.2 H Nucleated RBCs/100 WBC 2 H Differential Comment . . Toxic Granulation 2+ H Platelet Estimate Low L Low L Platelet Morphology Normal Normal Target Cells 1+ H 1+ H Lab - Chemistry Results 11/16/17 11/16/17 11/17/17 17:15 23:43 05:45 Sodium 140 Potassium 4.5 Chloride 110 H Carbon Dioxide 18.0 L Anion Gap 12 BUN 45 H Creatinine 2.48 H Estimated GFR 25 L POC Glucose 69 99 Random Glucose 86 Calcium 7.9 L Phosphorus Magnesium Total Bilirubin 0.3 AST 24 ALT 16 Alkaline Phosphatase 142 H Total Protein 4.6 L Albumin 0.8 L Beta HCG, Quant 11/17/17 11/17/17 11/17/17 05:45 06:27 06:30 Sodium Potassium Chloride Carbon Dioxide Anion Gap BUN Creatinine Estimated GFR POC Glucose 69 94 Random Glucose Calcium Phosphorus Magnesium Total Bilirubin AST ALT Alkaline Phosphatase Total Protein Albumin Beta HCG, Quant Less than 1 11/17/17 11/17/17 11/17/17 12:45 17:36 23:41 Sodium Potassium Chloride Carbon Dioxide Anion Gap BUN Creatinine Estimated GFR POC Glucose 105 106 114 H Random Glucose Calcium Phosphorus Magnesium Total Bilirubin AST ALT Alkaline Phosphatase Total Protein Albumin Beta HCG, Quant 11/18/17 04:00 Sodium 141 Potassium 4.5 Chloride 110 H Carbon Dioxide 18.4 L Anion Gap 13 BUN 56 H Creatinine 2.82 H Estimated GFR 21 L POC Glucose Random Glucose 66 L Calcium 8.2 L Phosphorus 2.5 Magnesium 1.7 Total Bilirubin 0.3 AST 19 ALT 12 Alkaline Phosphatase 141 H Total Protein 4.6 L Albumin 0.8 L Beta HCG, Quant Imaging: ITS Impressions Tibia/Fibula X-Ray 09/27/17 00:00 CONCLUSION: No acute left leg abnormality is identified. Abdomen/Pelvis CT 09/27/17 08:10 CONCLUSION: 1. Mild hepatic steatosis. 2. Thickening of the colon secondary to lack of distention versus colitis. 3. Left lower lobe consolidation and/or atelectasis. There does appear to be a 1.4 cm cavitary area which makes consolidation likely. Chest CTA 09/27/17 08:22 CONCLUSION: 1. No pulmonary embolus. 2. Consolidation or atelectasis at the left lower lobe. Knee CT 10/18/17 00:00 CONCLUSION: 1. Small joint effusion. 2. Nonspecific subcutaneous edema in the subcutaneous soft tissues above and below the knee. 3. No significant changes compared to the prior exam. Ankle X-Ray 10/19/17 00:00 CONCLUSION: 1. No acute fracture or dislocation. Knee X-Ray 10/19/17 00:00 CONCLUSION: 1. Total knee prosthesis in place. 2. Moderate-sized knee joint effusion. Head CT 11/10/17 00:00 CONCLUSION: 1. Interval enlargement of the ventricular system of uncertain etiology. There is no clear evidence of an obstructing process. 2. Otherwise stable evaluation without evidence of acute infarct, hemorrhage, mass or edema. . Venous Doppler Study 11/10/17 00:00 CONCLUSION: 1. No venous thrombosis is identified within either lower extremity. 2. As described above, secondary to open wounds, the left external iliac, common femoral vein, and greater saphenous veins were not adequately evaluated. Head MRI 11/11/17 00:00 CONCLUSION: 1. Motion artifact is present throughout the scan. 2. Examination is diagnostic. 3. No evidence of acute infarct, hemorrhage, mass or edema. PICC Line Insertion 11/11/17 08:51 CONCLUSION: 1. Uncomplicated central venous Power PICC line placement. 2. The PICC line can be used immediately. Chest X-Ray 11/18/17 06:00 CONCLUSION: Improving pulmonary infiltrates. Physical Exam: GENERAL: On the vent, NAD. No distress HEENT: Pupils reactive to light. No icterus. Orally intubated NECK: Supple without adenopathy. No swelling. LUNGS: Decreased breath sounds. HEART: Regular S1 and S2. ABDOMEN: Obese, soft. Nontender. Groin and abdominal area with sutures in place and dressing with some weeping of serous discharge noted.Tunneling noted in the center of the abdomen. There is a large open wound in medial upper L thigh, no purulence. Sacral area with abrasion noted. EXTREMITIES: Diffuse edema of the extremities. SKIN: No diffuse rash. NEUROLOGIC: Sedated. Not following commands. PSYCH: Unable to assess LINE: No evidence of infection Assessment and Plan - Plan IMPRESSION: Sepsis. Neutropenic sepsis on admission Abdominal fold cellulitis/skin breakdown. Post incision and debridement and closure of skin fold. General surgery following. s/p panniculectomy. Groin cellulitis, Mons pubis cellulitis/skin breakdown. Leucopenia, pancytopenia: ? MTX, ? Psych meds, ? Sepsis contributing. resolved. Left knee hardware in place. CT with fluid collection. Left knee infection - prior wound culture had Pseudomonas and group B beta strep. PSAE, VRE and Susy glabrata infection of the abdominal wound. Severe Cdiff - Positive PCR C. difficile. Acute resp failure, likely aspiration PNA Acute metabolic encephalopathy: sepsis. RECOMMENDATIONS: Continue Zyvox for MRSA and VRE coverage Continue Meropenem for broader GNR coverage till cultures finalized. Continue Micafungin IV for c.glabrata infection and concern for new line fungemia. Continue po Vanco for C diff. Continue Dificid for severe Cdiff as patient on concomitant antibiotics. Follow blood cultures. Monitor progress D/W RN and .
--- NOTE | 2017-11-18 18:49 | P.PNGS ---
Subjective Patient reports: no new complaints Physical Exam Vital signs: Vital Signs 11/17/17 20:00 11/17/17 21:19 11/17/17 22:00 Temperature 98.7 F Pulse Rate 106 H 103 H Respiratory Rate 18 19 Blood Pressure 121/62 Pulse Oximetry 100 100 11/17/17 23:51 11/18/17 00:00 11/18/17 02:00 Temperature 97.2 F L Pulse Rate 93 H 87 Respiratory Rate 16 16 Blood Pressure 116/59 L Pulse Oximetry 100 100 11/18/17 04:00 11/18/17 04:11 11/18/17 05:26 Temperature 95.9 F L Pulse Rate 80 Respiratory Rate 16 16 18 Blood Pressure 103/57 L Pulse Oximetry 99 99 11/18/17 06:00 11/18/17 08:00 11/18/17 12:41 Temperature 96.8 F L Pulse Rate 77 98 H Respiratory Rate 16 14 Blood Pressure 133/63 Pulse Oximetry 100 100 11/18/17 14:12 Temperature Pulse Rate Respiratory Rate 17 Blood Pressure Pulse Oximetry 100 Intake & Output 11/17/17 11/18/17 11/18/17 18:59 06:59 18:59 Intake Total 1181 / 1181 2081 / 2081 750 / 750 Output Total 525 / 525 1500 / 1500 Balance 656 / 656 581 / 581 750 / 750 Weight 117.3 kg Intake: IV 450 / 450 1500 / 1500 750 / 750 Diprivan 1000 mg/100 ml Inj 1, 100 / 100 100 / 100 200 / 200 000 mg In 100 ml @ 5 MCG/KG/MIN 3.261 mls/hr IV.CONT TITRATE PRN Rx#:[id number] Zyvox 600 mg Premix 300 ML @ 600 / 600 300 / 300 300 mls/hr IV.SIG Q12H [facility] Rx#: [id number] Merrem Inj 1,000 MG In NS Inj 100 / 100 200 / 200 100 ML @ 200 mls/hr IV.SIG Q12H [facility] Rx#:[id number] Mycamine Inj 100 MG In NS Inj 100 / 100 100 ML @ 100 mls/hr IV.SIG Q24H [facility] Rx#:[id number] fentaNYL 10 mcg/mL Premix Drip 250 / 250 500 / 500 250 / 250 2,500 mcg In 250 ml @ 50 MCG/HR 5 mls/hr IV.SIG TITRATE PRN Rx #:[id number] Tube Feeding 551 / 551 461 / 461 Tube Irrigant 120 / 120 Water Bolus Amount 180 / 180 Output: Stool 400 / 400 1200 / 1200 Urine Amount (Catheter) 125 / 125 300 / 300 Indwelling Urethral Catheter 125 / 125 300 / 300 Other: Date of Last Bowel Movement 11/17/17 11/18/17 11/18/17 - Routine Skin Exam Comments: dressings clean, intact - Urinary Catheter Management Female External Cath placed during this visit: no Indwelling Urethral Catheter Cath placed during this visit: yes, but has since been removed by the nurse Reason for continuing: Severe pressure ulcer/wound Insertion date: 10/09/17 Insertion time: 14:00 Removal date: 10/05/17 Removal time: 17:30 Assessment and Plan - Assessment (1) Fungal infection of skin of abdomen Code(s): B36.9 - Superficial mycosis, unspecified Status: Acute Plan: 52 year old female with large abdominal/thigh wounds -intubated in [facility] -Palliative Care following -Continue wound care, stable wounds - will follow along
--- NOTE | 2017-11-18 19:16 | P.PNCC ---
Subjective Subjective Remarks/Hospital Course: This is a 52-year-old female with a very complex medical history who was admitted back in September 2017 for postoperative wound infection from her total knee arthroplasty. Her course has been complicated by multiple necrotizing soft tissue infections. She additionally has failure to thrive and severe acute protein calorie malnutrition for which she has been on total parenteral nutrition. She intermittently becomes agitated and pulls out her IV access. Today she was on the floor when she became worsening the febrile and altered. She pulled out her own PICC line overnight, and nursing staff was unable to reobtain IV access. Because she was off TPN she became quite hypoglycemic which was refractory to non-intravenous methods of glucose administration. Urgently a new PICC line was placed by interventional radiology and she was given IV dextrose. When her glucose improved, her mental status improved as well. She is transferred to the ICU for management of worsening recurrent sepsis, worsening wound infection, and hypoglycemia. When I evaluated the patient, she was more awake, nonfocal, moving all extremities. She endorses fatigue, but denies other symptoms. She specifically denies chest pain, shortness of breath, fever, chills, nausea, vomiting, abdominal pain. She does endorse diarrhea and has a rectal tube in place. She has a recent history of active C. difficile infection. Remainder of the review systems is negative unless otherwise stated. 11/12: Lying in bed no acute distress intermittently confused but follows commands, pleasant. WBC count stable at 11.7. On TPN hypoglycemia has resolved. Discussed with Dr. Schneider 11/13: Intubated and placed on mechanical ventilation yesterday evening for desaturation and lack of airway protection. Creatinine has increased to 1.5 potassium is 2.8 getting replaced. On light sedation patient does follow commands. Antibiotics have been broadened to Zyvox meropenem and Levaquin and micafungin. Continue p.o. vancomycin for C Diff 11/14: Patient intubated sedated with propofol. Wakes up follows some commands but did not tolerate CPAP due to tachypnea. WBC count worsening currently 15.1. Also worsening creatinine 1.8. Some evidence of worsening wound infection in the lower abdomen pelvic region. Lower abdominal and left thigh incisions with increasing drainage 11/15: Remains intubated, sedated, becoming more septic and hypothermic. WBC count is 15.7 creatinine is 1.9 meets criteria for severe C. difficile colitis. Infectious disease following, currently on p.o. vancomycin for C. difficile ID is adding Dificid to the regimen. If not clinically improving need CT of the abdomen pelvis. Worsening sepsis most likely from worsening C. difficile than wound infection 11/16: Continued persistent hypotension. Discussed with Surgical Service. Acts like continued septic course. No other major changes. Will require transfusion soon. Subjective 11/17: Low-grade temperatures overnight. Tube feeds currently at goal of 50 cc an hour with vital 1.5. Positive BM. Hemoglobin currently 8.4. 11/18: no real improvements or changes. still failing vent weaning. Objective Vital Signs / I&O: Vital Signs 11/17/17 20:00 11/17/17 21:19 11/17/17 22:00 Temperature 37.1 C Pulse Rate 106 H 103 H Respiratory Rate 18 19 Blood Pressure 121/62 Pulse Oximetry 100 100 11/17/17 23:51 11/18/17 00:00 11/18/17 02:00 Temperature 36.2 C L Pulse Rate 93 H 87 Respiratory Rate 16 16 Blood Pressure 116/59 L Pulse Oximetry 100 100 11/18/17 04:00 11/18/17 04:11 11/18/17 05:26 Temperature 35.5 C L Pulse Rate 80 Respiratory Rate 16 16 18 Blood Pressure 103/57 L Pulse Oximetry 99 99 11/18/17 06:00 11/18/17 08:00 11/18/17 12:00 Temperature 36.0 C L 36.1 C L Pulse Rate 77 98 H 77 Respiratory Rate 16 15 Blood Pressure 133/63 110/70 Pulse Oximetry 100 100 11/18/17 12:41 11/18/17 14:12 11/18/17 16:00 Temperature 35.9 C L Pulse Rate 102 H Respiratory Rate 14 17 16 Blood Pressure 95/52 L Pulse Oximetry 100 100 100 Intake & Output 11/18/17 11/18/17 11/19/17 06:59 18:59 06:59 Intake Total 2081 / 2081 750 / 750 Output Total 1500 / 1500 Balance 581 / 581 750 / 750 Weight 117.3 kg Intake: IV 1500 / 1500 750 / 750 Diprivan 1000 mg/100 ml Inj 1, 100 / 100 200 / 200 000 mg In 100 ml @ 5 MCG/KG/MIN 3.261 mls/hr IV.CONT TITRATE PRN Rx#:[id number] Zyvox 600 mg Premix 300 ML @ 600 / 600 300 / 300 300 mls/hr IV.SIG Q12H [facility] Rx#: [id number] Merrem Inj 1,000 MG In NS Inj 200 / 200 100 ML @ 200 mls/hr IV.SIG Q12H [facility] Rx#:[id number] Mycamine Inj 100 MG In NS Inj 100 / 100 100 ML @ 100 mls/hr IV.SIG Q24H [facility] Rx#:[id number] fentaNYL 10 mcg/mL Premix Drip 500 / 500 250 / 250 2,500 mcg In 250 ml @ 50 MCG/HR 5 mls/hr IV.SIG TITRATE PRN Rx #:[id number] Tube Feeding 461 / 461 Tube Irrigant 120 / 120 Output: Stool 1200 / 1200 Urine Amount (Catheter) 300 / 300 Indwelling Urethral Catheter 300 / 300 Other: Date of Last Bowel Movement 11/18/17 11/18/17 Result Diagrams: 11/18/17 04:00 11/18/17 04:00 Objective Remarks: GENERAL: 52-year-old morbidly obese -[place]izen Of [place] female, intubated sedated with propofol HEENT: Normocephalic. Atraumatic. Pupils equal, round, reactive, conjugate. NECK: Trachea is midline. Orally intubated. CHEST: Equal chest rise. Orotracheally intubated. Air entry diminished at the bases CARDIOVASCULAR: Tachycardic rate . Regular rhythm. No murmurs, no JVD. ABDOMEN: Morbidly obese, soft. Lower abdominal area has complex open wound, stapled areas in the lower midline of the abdomen, and then a transverse area in the suprapubic region which is mostly opened down to the subcutaneous fat with persistent cloudy drainage now. Another wound extends nearly over the right anterior hip region which also appears to be open and draining purulent drainage down into the subcutaneous fat. There are also areas down into the left anterior hip/thigh area also with some cloudy drainage. MUSCULOSKELETAL: Pulses 2+. Gross anasarca. NEUROLOGICAL: Intubated sedated, on light sedation. Patient does wake up and follow basic commands. No focal deficits Assessment and Plan - Assessment and Plan Plan: Assessment: 52-year-old female with an extensive recent medical history including multiple wound infections and severe acute protein calorie malnutrition who presents with recurrent severe sepsis and wound infection. I agree with palliative care consult as despite her young age, her overall 1 year mortality rate is very high given that she has had almost no improvement at all in considerable worsening of her overall function and medical history while inpatient over the last few months. Active problems: Severe Sepsis Acute hypoxemic respiratory failure Metabolic encephalopathy Severe sepsis Severe C diff colitis Deep tissue wound infection lower abdomen and perineum Severe hypoglycemia-resolved Elevated BMI Leukocytosis Normocytic anemia Thrombocytopenia Depressive disorder NOS Hyperlipidemia Acute kidney injury creatinine currently 2.48 Plan: Sedated with propofol and use fentanyl gtt for pain control Follow up cultures Meets criteria for severe C. difficile, creat >1.5, WBC >15K Continue p.o. vancomycin 250 mg 4 times daily for C Diff, Fidaxomicin added by ID Concentrated albumin for IV resuscitation Continue IV antibiotics, Linezolid, meropenem and micafungin. Levofloxacin DCd Advance tube feeds to goal with vital 1.5 at 50 cc an hour Lower abdomen and perineal wound infections general surgery and ID following Frequent glycemic checks, D50 for hypoglycemia Frequent neurochecks Sinus tachycardia is likely compensatory mechanism and from Sirs response Anemia -> hold off on prbc today. Weight loss encouraged Continue mirtazapine 15 mg at night, trazodone 100 mg at night, apiriprazone 30 mg daily and buspirone 15 mg 3 times daily Continue diltiazem 60 mg 3 times daily for hypertension Continue to hold pravastatin 40 mg daily for dyslipidemia Check urine electrolytes and eosinophils and sodium and creatinine with acute kidney injury. Avoid nephrotoxic drugs Overall: prognosis remains poor with multiple comorbidities debility, sepsis likely from infected wounds. Inability to protect airway and hypoxemic respiratory failure Famotidine for GI prophylaxis. SCDs for DVT prophylaxis. Holding pharmacological prophylaxis in light of ongoing anemia/transfusions
[2017-11-18] MEDS: traZODone 100 MG Tablet PO SCH (20:44)
[2017-11-18] MEDS: Mirtazapine 15 MG Tablet PO SCH (20:45)
[2017-11-19] MEDS: fentaNYL 10 mcg/mL Premix Drip 2,500 MCG/250 ML BAG IV.SIG PRN ×3 (00:30→20:19)
[2017-11-19] MEDS: Propofol 1000 mg/100 ml Inj 1,000 MG/100 ML BOTTLE IV.CONT PRN ×6 (02:22→21:18)
[2017-11-19] MEDS: Oral Hygiene Kit OROPHARYNG SCH ×3 (04:47→18:17)
[2017-11-19 05:09] LABS: ABG Base Excess -10.2 mmol/L (-2-2); ABG PCO2 34 mmHg (38-42); ABG PO2 140 mmHG (61-120)
[2017-11-19 05:19] LABS: Hematocrit 23.5 % (35.0-46.0); Hemoglobin 7.9 gm/dL (11.6-15.3); Mean Corpuscular HGB Conc 33.8 % (32.0-36.0); Mean Corpuscular Volume 82.9 fL (80.0-100.0); Mean Platelet Volume 7.8 fL (7.0-11.0); Platelet Count 75 th/mm3 (150-450); Red Blood Count 2.83 mil/mm3 (4.00-5.30); Red Cell Distribution Width 17.7 % (11.6-17.2); White Blood Count 14.4 th/mm3 (4.0-11.0)
[2017-11-19 05:36] LABS: Calcium 8.5 mg/dL (8.5-10.1); Carbon Dioxide 17.8 meq/L (21.0-32.0); Magnesium 1.8 mg/dL (1.5-2.5); Phosphorus 3.2 mg/dL (2.5-4.9); Potassium 4.7 meq/L (3.5-5.1)
--- NOTE | 2017-11-19 05:55 | XR ---
EXAM DATE: 11/19/2017 5:42 AM EDT AGE/SEX: 52 years / Female INDICATIONS: Shortness of breath. CLINICAL DATA: This is the patient's subsequent encounter. Patient reports that signs and symptoms h ave been present for 1 week and indicates a pain score of Nonresponsive. MEDICAL/SURGICAL HISTORY: Anemia. Sepsis. Fusion, cervical. COMPARISON: [facility] – [place], CHEST 1V SINGLE AP, 11/18/2017. [facility] [place], CHEST 1V SINGLE AP, 11/15/2017. . FINDINGS: Rotated and underinflated portable AP view of the chest demonstrates a normal-sized cardiac silhouett e. Multiple EKG lines overlie the patient. Nasogastric tube, endotracheal tube, and left upper extrem ity PICC remain present. There are patchy lung opacities bilaterally primarily in the mid to lower luis carlos ng zones. No pleural effusion or pneumothorax is identified. The bones demonstrate no acute abnormali ty. Cervical spine hardware is present. CONCLUSION: No significant change is appreciated. There is mild patchy presumed airspace consolidation in the low er lung zones bilaterally. Electronically signed by: Thor Corral MD 11/19/2017 5:54 AM EDT
[2017-11-19] MEDS: Insulin NovoLOG Aspart Correctional Sugar Inj SQ SCH ×3 (06:19→18:17)
--- NOTE | 2017-11-19 09:05 | P.PNFP ---
Subjective Interval history: Patient seen and examined this morning. Low-grade temp overnight. Sedated and intubated. Failed vent weaning trials. Tube feeds at 50cc/hour <Simon Devine - 11/19/17 09:05> Results - Labs Result diagrams: 11/19/17 04:30 11/19/17 04:30 <Schuyler Medina - 11/19/17 13:23> Abnormal lab results 11/19/17 11/19/17 11/19/17 Range/Units 04:30 04:30 04:52 WBC 14.4 H (4.0-11.0) th/mm3 RBC 2.83 L (4.00-5.30) mil/mm3 Hgb 7.9 L (11.6-15.3) gm/dL Hct 23.5 L (35.0-46.0) % RDW 17.7 H (11.6-17.2) % Plt Count 75 L (150-450) th/mm3 ABG pH 7.27 L* (7.380-7.420) ABG pCO2 34 L (38-42) mmHg ABG pO2 140 H (61-120) mmHG ABG HCO3 15 L* (22-26) mmol/L ABG Base Excess -10.2 L (-2-2) mmol/L Hemoglobin 11.0 L (12.0-16.0) G/DL Chloride 112 H (98-107) meq/L Carbon Dioxide 17.8 L (21.0-32.0) meq/L BUN 60 H (7-18) mg/dL Creatinine 2.82 H (0.50-1.00) mg/dL Estimated GFR 21 L (>89) mL/min Prealbumin 10 L (20-40) mg/dL Short CBC 11/19/17 Range/Units 04:30 WBC 14.4 H (4.0-11.0) th/mm3 Hgb 7.9 L (11.6-15.3) gm/dL Hct 23.5 L (35.0-46.0) % Plt Count 75 L (150-450) th/mm3 BMP 11/19/17 04:30 Sodium 143 Potassium 4.7 Chloride 112 H Carbon Dioxide 17.8 L BUN 60 H Creatinine 2.82 H Calcium 8.5 <Schuyler Medina - 11/19/17 13:23> Abnormal lab results 11/18/17 11/19/17 11/19/17 Range/Units 04:00 04:30 04:30 WBC 14.4 H (4.0-11.0) th/mm3 RBC 2.83 L (4.00-5.30) mil/mm3 Hgb 7.9 L (11.6-15.3) gm/dL Hct 23.5 L (35.0-46.0) % RDW 17.7 H (11.6-17.2) % Plt Count 75 L (150-450) th/mm3 Band Neuts % (Manual) 38 H (0-6) % Abs Neuts (Manual) 13.2 H (1.8-7.7) th/mm3 Toxic Granulation 2+ H (None) Platelet Estimate Low L (Normal) Target Cells 1+ H (None) ABG pH (7.380-7.420) ABG pCO2 (38-42) mmHg ABG pO2 (61-120) mmHG ABG HCO3 (22-26) mmol/L ABG Base Excess (-2-2) mmol/L Hemoglobin (12.0-16.0) G/DL Chloride 112 H (98-107) meq/L Carbon Dioxide 17.8 L (21.0-32.0) meq/L BUN 60 H (7-18) mg/dL Creatinine 2.82 H (0.50-1.00) mg/dL Estimated GFR 21 L (>89) mL/min Prealbumin 10 L (20-40) mg/dL 11/19/17 Range/Units 04:52 WBC (4.0-11.0) th/mm3 RBC (4.00-5.30) mil/mm3 Hgb (11.6-15.3) gm/dL Hct (35.0-46.0) % RDW (11.6-17.2) % Plt Count (150-450) th/mm3 Band Neuts % (Manual) (0-6) % Abs Neuts (Manual) (1.8-7.7) th/mm3 Toxic Granulation (None) Platelet Estimate (Normal) Target Cells (None) ABG pH 7.27 L* (7.380-7.420) ABG pCO2 34 L (38-42) mmHg ABG pO2 140 H (61-120) mmHG ABG HCO3 15 L* (22-26) mmol/L ABG Base Excess -10.2 L (-2-2) mmol/L Hemoglobin 11.0 L (12.0-16.0) G/DL Chloride (98-107) meq/L Carbon Dioxide (21.0-32.0) meq/L BUN (7-18) mg/dL Creatinine (0.50-1.00) mg/dL Estimated GFR (>89) mL/min Prealbumin (20-40) mg/dL Short CBC 11/19/17 Range/Units 04:30 WBC 14.4 H (4.0-11.0) th/mm3 Hgb 7.9 L (11.6-15.3) gm/dL Hct 23.5 L (35.0-46.0) % Plt Count 75 L (150-450) th/mm3 BMP 11/19/17 04:30 Sodium 143 Potassium 4.7 Chloride 112 H Carbon Dioxide 17.8 L BUN 60 H Creatinine 2.82 H Calcium 8.5 <Simon Devine - 11/19/17 09:05> - Imaging Impressions Chest X-Ray 11/19/17 05:00 CONCLUSION: No significant change is appreciated. There is mild patchy presumed airspace consolidation in the lower lung zones bilaterally. <PrevatteSchuyler - 11/19/17 13:23> Impressions Chest X-Ray 11/19/17 05:00 CONCLUSION: No significant change is appreciated. There is mild patchy presumed airspace consolidation in the lower lung zones bilaterally. <Simon Devine - 11/19/17 09:05> Physical Exam Vital signs: Vital Signs 11/18/17 14:00 11/18/17 14:12 11/18/17 16:00 Temperature 96.7 F L Pulse Rate 100 H 102 H Respiratory Rate 17 16 Blood Pressure 95/52 L Pulse Oximetry 100 100 11/18/17 19:37 11/18/17 20:00 11/18/17 20:03 Temperature 96.6 F L Pulse Rate 84 Respiratory Rate 20 16 16 Blood Pressure 101/58 L Pulse Oximetry 100 100 11/18/17 22:00 11/18/17 23:55 11/19/17 00:00 Temperature 96.6 F L Pulse Rate 97 H 84 Respiratory Rate 16 16 Blood Pressure 101/58 L Pulse Oximetry 100 100 11/19/17 01:20 11/19/17 02:00 11/19/17 03:54 Temperature Pulse Rate 117 H Respiratory Rate 20 16 Blood Pressure Pulse Oximetry 100 11/19/17 04:00 11/19/17 06:00 11/19/17 07:00 Temperature 100.4 F H 98.2 F Pulse Rate 112 H 108 H 93 H Respiratory Rate 25 H 21 Blood Pressure 108/57 L 157/72 H Pulse Oximetry 100 100 11/19/17 07:30 11/19/17 08:00 11/19/17 08:30 Temperature 98.2 F 97.9 F 97.3 F L Pulse Rate 109 H 101 H 94 H Respiratory Rate 16 16 16 Blood Pressure 107/53 L 100/54 L 101/55 L Pulse Oximetry 100 100 100 11/19/17 08:35 11/19/17 10:00 11/19/17 11:29 Temperature Pulse Rate 86 Respiratory Rate 16 16 Blood Pressure Pulse Oximetry 100 11/19/17 12:10 Temperature Pulse Rate Respiratory Rate 16 Blood Pressure Pulse Oximetry 100 Intake & Output 11/18/17 11/19/17 11/19/17 18:59 06:59 18:59 Intake Total 1399 / 1399 1979 / 1979 650 / 650 Output Total 500 / 500 1300 / 1300 Balance 899 / 899 680 / 680 650 / 650 Weight 116.5 kg Intake: IV 750 / 750 1150 / 1150 650 / 650 Diprivan 1000 mg/100 ml Inj 1, 200 / 200 300 / 300 100 / 100 000 mg In 100 ml @ 5 MCG/KG/MIN 3.261 mls/hr IV.CONT TITRATE PRN Rx#:[id number] Zyvox 600 mg Premix 300 ML @ 300 / 300 300 / 300 300 / 300 300 mls/hr IV.SIG Q12H [facility] Rx#: [id number] Merrem Inj 1,000 MG In NS Inj 200 / 200 100 ML @ 200 mls/hr IV.SIG Q12H [facility] Rx#:[id number] Mycamine Inj 100 MG In NS Inj 100 / 100 100 ML @ 100 mls/hr IV.SIG Q24H [facility] Rx#:[id number] fentaNYL 10 mcg/mL Premix Drip 250 / 250 250 / 250 250 / 250 2,500 mcg In 250 ml @ 50 MCG/HR 5 mls/hr IV.SIG TITRATE PRN Rx #:[id number] Tube Feeding 589 / 589 650 / 650 Tube Irrigant 60 / 60 180 / 180 Output: Stool 800 / 800 Urine Amount (Catheter) 500 / 500 500 / 500 Indwelling Urethral Catheter 500 / 500 500 / 500 Other: Date of Last Bowel Movement 11/18/17 11/19/17 11/18/17 <Schuyler Medina - 11/19/17 13:23> Vital Signs 11/18/17 12:00 11/18/17 12:41 11/18/17 14:00 Temperature 97 F L Pulse Rate 77 100 H Respiratory Rate 15 14 Blood Pressure 110/70 Pulse Oximetry 100 100 11/18/17 14:12 11/18/17 16:00 11/18/17 19:37 Temperature 96.7 F L Pulse Rate 102 H Respiratory Rate 17 16 20 Blood Pressure 95/52 L Pulse Oximetry 100 100 11/18/17 20:00 11/18/17 20:03 11/18/17 22:00 Temperature 96.6 F L Pulse Rate 84 97 H Respiratory Rate 16 16 Blood Pressure 101/58 L Pulse Oximetry 100 100 11/18/17 23:55 11/19/17 00:00 11/19/17 01:20 Temperature 96.6 F L Pulse Rate 84 Respiratory Rate 16 16 20 Blood Pressure 101/58 L Pulse Oximetry 100 100 11/19/17 02:00 11/19/17 03:54 11/19/17 04:00 Temperature 100.4 F H Pulse Rate 117 H 112 H Respiratory Rate 16 25 H Blood Pressure 108/57 L Pulse Oximetry 100 100 11/19/17 06:00 11/19/17 08:35 Temperature Pulse Rate 108 H Respiratory Rate 16 Blood Pressure Pulse Oximetry 100 Intake & Output 11/18/17 11/19/17 11/19/17 18:59 06:59 18:59 Intake Total 1399 / 1399 1979 / 1979 Output Total 500 / 500 1300 / 1300 Balance 899 / 899 680 / 680 Weight 116.5 kg Intake: IV 750 / 750 1150 / 1150 Diprivan 1000 mg/100 ml Inj 1, 200 / 200 300 / 300 000 mg In 100 ml @ 5 MCG/KG/MIN 3.261 mls/hr IV.CONT TITRATE PRN Rx#:[id number] Zyvox 600 mg Premix 300 ML @ 300 / 300 300 / 300 300 mls/hr IV.SIG Q12H [facility] Rx#: [id number] Merrem Inj 1,000 MG In NS Inj 200 / 200 100 ML @ 200 mls/hr IV.SIG Q12H [facility] Rx#:[id number] Mycamine Inj 100 MG In NS Inj 100 / 100 100 ML @ 100 mls/hr IV.SIG Q24H [facility] Rx#:[id number] fentaNYL 10 mcg/mL Premix Drip 250 / 250 250 / 250 2,500 mcg In 250 ml @ 50 MCG/HR 5 mls/hr IV.SIG TITRATE PRN Rx #:[id number] Tube Feeding 589 / 589 650 / 650 Tube Irrigant 60 / 60 180 / 180 Output: Stool 800 / 800 Urine Amount (Catheter) 500 / 500 500 / 500 Indwelling Urethral Catheter 500 / 500 500 / 500 Other: Date of Last Bowel Movement 11/18/17 11/19/17 <Simon Devine - 11/19/17 09:05> Narrative: GENERAL: Morbidly obese -[place] female lying in bed intubated and sedated with soft restraints intact. HEENT: Atraumatic, normocephalic. ET tube in place. CARDIOVASCULAR: Tachycardic rate (baseline) and regular rhythm without obvious murmurs, gallops, or rubs. RESPIRATORY: Bilateral rhonchi throughout. Breath sounds difficult to auscultate due to body habitus and ventilator noise. No increased work of breathing. GASTROINTESTINAL: Abdomen diffuse, soft with soft bowel sounds. Rectal tube in place with liquid fecal material in reservoir. Hopper catheter in place with minimal urinary output in reservoir. MUSCULOSKELETAL: Bilateral upper extremity 2+ edema. Stable bilateral lower extremity 2+. Left knee effusion stable. SCDs in place. NEURO/PSYCH: Patient intubated and sedated. SKIN: Cool and dry. No rash. PICC line without surrounding erythema, warmth, or other signs of infection. ABD wounds: Transverse suprapubic wound stapled along with midline stapled incision. Currently bandaged with areas of purulent drainage on the pelvic wounds. No signs of hemorrhage. <Simon Devine - 11/19/17 09:05> - Urinary Catheter Management Female External Cath placed during this visit: no <Schuyler Medina - 11/19/17 13:23> no <Simon Devine - 11/19/17 09:05> Indwelling Urethral Catheter Cath placed during this visit: no <Schuyler Medina - 11/19/17 13:23> yes, but has since been removed by the nurse <PolochandlerSimon Rasheed 11/19/17 09:05> Reason for continuing: Severe pressure ulcer/wound <PolochandlerSimon Rasheed 09:05> Insertion date: 10/09/17 <PolochandlerSimon Rasheed 11/19/17 09:05> Insertion time: 14:00 <PolochandlerSimon Rasheed 11/19/17 09:05> Removal date: 10/05/17 <PolochandlerSimon Rasheed 11/19/17 09:05> Removal time: 17:30 <PolochandlerSimon Rasheed 11/19/17 09:05> Assessment and Plan - Assessment (1) Respiratory failure Code(s): J96.90 - Respiratory failure, unspecified, unspecified whether with hypoxia or hypercapnia Status: Acute (2) Sepsis Code(s): A41.9 - Sepsis, unspecified organism Status: Acute (3) Open wound of abdominal wall Code(s): S31.109A - Unspecified open wound of abdominal wall, unspecified quadrant without penetration into peritoneal cavity, initial encounter Status : Acute (4) Aspiration into airway Code(s): T17.908A - Unspecified foreign body in respiratory tract, part unspecified causing other injury, initial encounter Status: Acute (5) C. difficile diarrhea Code(s): A04.72 - Enterocolitis due to Clostridium difficile, not specified as recurrent Status: Acute (6) Anemia Code(s): D64.9 - Anemia, unspecified Status: Resolved (7) Creatinine elevation Code(s): R79.89 - Other specified abnormal findings of blood chemistry Status : Acute (8) Thrombocytopenia Code(s): D69.6 - Thrombocytopenia, unspecified Status: Acute (9) Poor nutrition Code(s): E63.9 - Nutritional deficiency, unspecified Status: Acute (10) Schizophrenia Code(s): F20.9 - Schizophrenia, unspecified Status: Chronic (11) Altered mental status Code(s): R41.82 - Altered mental status, unspecified Status: Acute (12) Cellulitis of knee, left Code(s): L03.116 - Cellulitis of left lower limb Status: Acute (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 - Infection and inflammatory reaction due to unspecified internal joint prosthesis, initial encounter Status: Suspected (14) Hypertension Code(s): I10 - Essential (primary) hypertension Status: Acute (15) Tachycardia Code(s): R00.0 - Tachycardia, unspecified Status: Chronic (16) Nutrition, metabolism, and development symptoms Code(s): R63.8 - Other symptoms and signs concerning food and fluid intake Status: Acute <Schuyler Medina - 11/19/17 13:23> (1) Respiratory failure Code(s): J96.90 - Respiratory failure, unspecified, unspecified whether with hypoxia or hypercapnia Status: Acute Plan: Patient with possible aspiration episode on 11/12/17 with subsequent acute respiratory failure requiring intubation ABG 11/12/17:7.3/33/219/16 CXR 11/15/17: Mild bibasilar consolidation, improved on the right and slightly worse on the left. CXR: 11/19/17: no significant change -Patient intubated and sedated -Railroad Firer consulted -Palliative care consulted (2) Sepsis Code(s): A41.9 - Sepsis, unspecified organism Status: Acute Plan: Patient meeting sepsis criteria with core body temperature of high/low temp, leukocytosis, and tachycardia. Suspected site of infection as her extensive abdominal wounds. -Please see plan as below (3) Open wound of abdominal wall Code(s): S31.109A - Unspecified open wound of abdominal wall, unspecified quadrant without penetration into peritoneal cavity, initial encounter Status : Acute Plan: Large abdominal and pelvic wounds that appear not to be healing likely secondary to poor nutritional status -Wound Culture 09/27/17: Pseudomonas and Group B Step -Blood Cultures 10/24/17: Negative -Tissue Cultures 10/09/17: Negative -Abdominal wound culture 11/01/17: Group D Enterococcus, sensitive to Daptomycin ; Fungal species -Blood Culture 11/07/17 per TPN protocol: Negative to date -Blood Culture 11/12/17: NTD -PICC Line/Blood Cultures 11/15/17: no growth to date -Infectious disease consulted -General surgery consulted -Surgical debridement 10/09, wound VAC applied. -VAC changed 10/12 removed 10/15. -Debridement, irrigation, with suturing performed on 10/16. -I&D of abdomen and bilateral thighs, placement of Amniox with wound closure on 11/01/17 -Dressing changes per general surgery Medications: -Meropenem (11/13/17- ) -Micafungin (11/13/17- ) -Linezolid (11/13/17- ) -Dificid (11/15/17 - ) -PO Vanc (10/23/17 - ) Levaquin (11/10/17-11/15/17) -Daptomycin IV for suspected VRE per ID (11/03/17-11/13/17) -Cefepime IV (09/29/17-11/08/17) discontinued due to thrombocytopenia and elevated creatinine -Flagyl (11/10/17-11/13/17) -Diflucan 500mg daily (11/12/17) -Fentanyl added to assist with pain control (4) Aspiration into airway Code(s): T17.908A - Unspecified foreign body in respiratory tract, part unspecified causing other injury, initial encounter Status: Acute Plan: Patient with possible aspiration episode overnight 11/09/17 with another episode on 11/12/17. Patient now with respiratory failure as above Chest x-ray 11/09/12: Interval development of left lower lobe consolidation CXR 11/10/17: Left upper extremity PICC distal tip at the junction of the SVC and brachiocephalic vein. Bibasilar airspace opacity could represent atelectasis versus consolidation. CXR 11/12/17: Interim intubation. Endotracheal tip at the shaka. Small effusion and mild consolidation developing at the right base. Sputum cultures: Gram stain with rare gram positive cocci in pairs, many WBC, mucus; Culture with light growth of normal respiratory lisa at 24 hours. CXR 11/15/17: Mild bibasilar consolidation, improved on the right and slightly worse on the left. CXR 11/19/17: no significant change -Speech therapy consulted for swallow evaluation once extubated -ID consulted Medications: -Meropenem (11/13/17- ) -Micafungin (11/13/17- ) -Linezolid (11/13/17- ) Levaquin (11/10/17-11/15/17) -Flagyl (11/10/17-11/13/17) (5) C. difficile diarrhea Code(s): A04.72 - Enterocolitis due to Clostridium difficile, not specified as recurrent Status: Acute Plan: C diff cultures positive 10/19/17 Patient meeting criteria for severe C. difficile infection -Vancomycin PO 125 4 times daily (10/23/17- ) -Difficid 200mg BID (11/15/17- ) -Continue with probiotics. -Rectal tube in place (6) Anemia Code(s): D64.9 - Anemia, unspecified Status: Resolved Plan: -Patient found to have asymptomatic anemia H/H of 7/20.3 with MCV of 82 on -Rectal tube and Hopper catheter without any signs of acute bleeding -Dressings without obvious signs of bleeding -11 units total thus far during admission (11/16/17 most recent) -Continue to monitor (7) Creatinine elevation Code(s): R79.89 - Other specified abnormal findings of blood chemistry Status : Acute Plan: Patient with acute creatinine elevation with starting TPN. -Unknown etiology at this time -Patient with decreasing urinary output -Hopper exchanged for possible obstruction; patient with continued decreased output -Electrolytes WNL -Continue to monitor creatinine, I/Os (8) Thrombocytopenia Code(s): D69.6 - Thrombocytopenia, unspecified Status: Acute Plan: Patient with decreasing platelet count -Etiology unknown -No signs of acute bruising/bleeding on limited skin exam due to body habitus -Continue to monitor (9) Poor nutrition Code(s): E63.9 - Nutritional deficiency, unspecified Status: Acute Plan: -Patient with poor nutritional status during hospitalization -Severe concern of poor wound healing secondary to poor nutritional status -Lease Administration Supervisor consulted for calorie count and nutritional guidance, which has been limited due to NPO status prior to surgery, however patient continues to have poor intake -Multivitamin IV added with Hermes supplementation BID -Albumin levels continued to be decreased -Patient unable to receive 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 Briefly discussed with surgery about the possibility of a JG tube versus surgical placement of PEG tube, deferred as patient will likely not heal from surgical procedure due to nutritional status -NG tube placed with vital 1.5 tube feeds started per dietary TPN, Clinimix E 08/05 @ 65 mls/hr with 20% lipids 250 mls 2x/week (11/07/17-) (10) Schizophrenia Code(s): F20.9 - Schizophrenia, unspecified Status: Chronic Plan: -Psychiatry consulted upon admission -Patient with increased agitation and disorientation on 11/09/17; during episode patient pulled PICC line and attempted to pull out rectal/Hopper; patient required 1 mg Haldol for agitation during episode -Psychiatry consulted for further evaluation Medications: -Haldol 1-2 mg IV/IM every 8 hours as needed for aggressive behavior/agitation -Continue Abilify 30 mg for psychosis -Continue buspirone 30 mg, trazodone 100 mg and Cymbalta 60 mg -Started Mirtazapine 15mg QHS to assist with mood as well as appetite stimulant -Hold anticholinergics per Psych (11) Altered mental status Code(s): R41.82 - Altered mental status, unspecified Status: Acute Plan: Patient with altered mental status overnight 11/11/17 with possible aspiration due to new dysphagia. Patient's mental status continues to decline with a GCS score of 10. Likely related to hypoglycemia as patient did not have access and was not able to receive nutrition via PICC line and is n.p.o. for failed swallow study. -CT Head: Interval enlargement of the ventricular system of uncertain etiology. No clear evidence of an obstructing process. Otherwise stable evaluation without evidence of acute infarct, hemorrhage, mass, or edema. -MRI wo contrast: Negative for acute process -Speech therapy consulted Neurology consulted, appreciate recommendations -No active neurological issues -Railroad Firer consulted, appreciate recommendations Medications: -Glucagon given overnight -STAT buccal glucose given -TPN re-initiated -All PO medications placed on Hold -Haldol 1mg PRN for agitation/hallucinations -Lopressor 5mg IV PRN for HR >120 every 15min (12) Cellulitis of knee, left Code(s): L03.116 - Cellulitis of left lower limb Status: Acute Plan: -ID consulted, recommend Cefepime until 11/08/17 -Orthopedic surgery consulted, no further recommendations at this time Medications: -As above (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 She completed rehabilitation and was discharged home August 23. Patient was on approximately 2 weeks of po Keflex 500 mg. Per Ortho, examination of left knee shows no evidence of infection. (14) Hypertension Code(s): I10 - Essential (primary) hypertension Status: Acute Plan: History of hypertension Hold oral medications below -Continue to monitor -Clonidine PRN for BP > 180/100 (15) Tachycardia Code(s): R00.0 - Tachycardia, unspecified Status: Chronic Plan: -Patient with chronic history of tachycardia -EKG 09/27/17: Sinus tachycardia with rate of [address] or interval changes. (Per medical team read) Medications: -Lopressor 5mg IV PRN for HR >120 if unable to tolerate PO -Continue home diltiazem and carvedilol (16) Nutrition, metabolism, and development symptoms Code(s): R63.8 - Other symptoms and signs concerning food and fluid intake Status: Acute Plan: Fluids: NG tube feeds with Vital 1.5 @ 40 mls/hr goal, plan to wean TPN with SSI as needed Electrolytes: Replete as needed per ICU protocol Nutrition: -Lease Administration Supervisor consulted for nutritional guidance -NG tube placed and tube feeds started with vital 1.5 at 50 mils per hour (goal) -TPN Clinimix E 08/05 @ 65 mls/hr with 20% lipids 250 mls 2x/week (11/07/17- ); plan to wean as tolerated now that NG tube feeds have been initiated PICC line placed in left upper extremity DVT prophylaxis: SCDs, Defer medical prophylaxis due to anemia <Simon Devine - 11/19/17 08:52> - Attending Attestation Patient seen and examined. Discussed with Dr. Devine. Agree with assessment and plan as documented. <Schuyler Medina - 11/19/17 13:23> <Simon Devine - Last Filed: 11/19/17 08:52> (1) Respiratory failure Qualifiers: Chronicity: acute (3) Open wound of abdominal wall Qualifiers: Encounter type: initial encounter Qualified Code(s): S31.109A - Unspecified open wound of abdominal wall, unspecified quadrant without penetration into peritoneal cavity, initial encounter (4) Aspiration into airway Qualifiers: Encounter type: initial encounter Qualified Code(s): T17.908A - Unspecified foreign body in respiratory tract, part unspecified causing other injury, initial encounter (6) Anemia Qualifiers: Anemia type: unspecified type Qualified Code(s): D64.9 - Anemia, unspecified (11) Altered mental status Qualifiers: Altered mental status type: unspecified Qualified Code(s): R41.82 - Altered mental status, unspecified (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 <Schuyler Medina - Last Filed: 11/19/17 13:23> (3) Open wound of abdominal wall Qualifiers: Qualified Code(s): S31.109A - Unspecified open wound of abdominal wall, unspecified quadrant without penetration into peritoneal cavity, initial encounter (4) Aspiration into airway Qualifiers: Qualified Code(s): T17.908A - Unspecified foreign body in respiratory tract, part unspecified causing other injury, initial encounter (6) Anemia Qualifiers: Qualified Code(s): D64.9 - Anemia, unspecified (11) Altered mental status Qualifiers: Qualified Code(s): R41.82 - Altered mental status, unspecified (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 <Smion Devine - Last Filed: 11/19/17 08:52> (1) Respiratory failure Qualifiers: Chronicity: acute (3) Open wound of abdominal wall Qualifiers: Encounter type: initial encounter Qualified Code(s): S31.109A - Unspecified open wound of abdominal wall, unspecified quadrant without penetration into peritoneal cavity, initial encounter (4) Aspiration into airway Qualifiers: Encounter type: initial encounter Qualified Code(s): T17.908A - Unspecified foreign body in respiratory tract, part unspecified causing other injury, initial encounter (6) Anemia Qualifiers: Anemia type: unspecified type Qualified Code(s): D64.9 - Anemia, unspecified (11) Altered mental status Qualifiers: Altered mental status type: unspecified Qualified Code(s): R41.82 - Altered mental status, unspecified (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 <Schuyler Medina - Last Filed: 11/19/17 13:23> (3) Open wound of abdominal wall Qualifiers: Qualified Code(s): S31.109A - Unspecified open wound of abdominal wall, unspecified quadrant without penetration into peritoneal cavity, initial encounter (4) Aspiration into airway Qualifiers: Qualified Code(s): T17.908A - Unspecified foreign body in respiratory tract, part unspecified causing other injury, initial encounter (6) Anemia Qualifiers: Qualified Code(s): D64.9 - Anemia, unspecified (11) Altered mental status Qualifiers: Qualified Code(s): R41.82 - Altered mental status, unspecified (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
[2017-11-19] MEDS: Chlorhexidine 0.12% Oral Kit 15 ML UDC OROPHARYNG SCH ×2 (09:15→20:18)
[2017-11-19] MEDS: Folic Acid 1 MG Tablet PO SCH (09:15)
[2017-11-19] MEDS: Hypromellose 0.3% Opth Gel 10 GM Bottle EACH EYE SCH ×2 (09:15→20:18)
[2017-11-19] MEDS: Duloxetine 60 MG DR Capsule PO SCH (09:15)
[2017-11-19] MEDS: Lactobacillus Acidophilus/L. Spores Tablet PO SCH ×2 (09:15→20:19)
--- NOTE | 2017-11-19 09:15 | P.PNCC ---
Subjective Subjective Remarks/Hospital Course: This is a 52-year-old female with a very complex medical history who was admitted back in September 2017 for postoperative wound infection from her total knee arthroplasty. Her course has been complicated by multiple necrotizing soft tissue infections. She additionally has failure to thrive and severe acute protein calorie malnutrition for which she has been on total parenteral nutrition. She intermittently becomes agitated and pulls out her IV access. Today she was on the floor when she became worsening the febrile and altered. She pulled out her own PICC line overnight, and nursing staff was unable to reobtain IV access. Because she was off TPN she became quite hypoglycemic which was refractory to non-intravenous methods of glucose administration. Urgently a new PICC line was placed by interventional radiology and she was given IV dextrose. When her glucose improved, her mental status improved as well. She is transferred to the ICU for management of worsening recurrent sepsis, worsening wound infection, and hypoglycemia. When I evaluated the patient, she was more awake, nonfocal, moving all extremities. She endorses fatigue, but denies other symptoms. She specifically denies chest pain, shortness of breath, fever, chills, nausea, vomiting, abdominal pain. She does endorse diarrhea and has a rectal tube in place. She has a recent history of active C. difficile infection. Remainder of the review systems is negative unless otherwise stated. 11/12: Lying in bed no acute distress intermittently confused but follows commands, pleasant. WBC count stable at 11.7. On TPN hypoglycemia has resolved. Discussed with Dr. Schneider 11/13: Intubated and placed on mechanical ventilation yesterday evening for desaturation and lack of airway protection. Creatinine has increased to 1.5 potassium is 2.8 getting replaced. On light sedation patient does follow commands. Antibiotics have been broadened to Zyvox meropenem and Levaquin and micafungin. Continue p.o. vancomycin for C Diff 11/14: Patient intubated sedated with propofol. Wakes up follows some commands but did not tolerate CPAP due to tachypnea. WBC count worsening currently 15.1. Also worsening creatinine 1.8. Some evidence of worsening wound infection in the lower abdomen pelvic region. Lower abdominal and left thigh incisions with increasing drainage 11/15: Remains intubated, sedated, becoming more septic and hypothermic. WBC count is 15.7 creatinine is 1.9 meets criteria for severe C. difficile colitis. Infectious disease following, currently on p.o. vancomycin for C. difficile ID is adding Dificid to the regimen. If not clinically improving need CT of the abdomen pelvis. Worsening sepsis most likely from worsening C. difficile than wound infection 11/16: Continued persistent hypotension. Discussed with Surgical Service. Acts like continued septic course. No other major changes. Will require transfusion soon. Subjective 11/17: Low-grade temperatures overnight. Tube feeds currently at goal of 50 cc an hour with vital 1.5. Positive BM. Hemoglobin currently 8.4. 11/18: no real improvements or changes. still failing vent weaning. 11/19: Hypothermic, requiring warming blanket. Continued vent dependent respiratory failure. Continued metabolic derangements requiring fluid resuscitation. Objective Vital Signs / I&O: Vital Signs 11/18/17 12:00 11/18/17 12:41 11/18/17 14:00 Temperature 97 F L Pulse Rate 77 100 H Respiratory Rate 15 14 Blood Pressure 110/70 Pulse Oximetry 100 100 11/18/17 14:12 11/18/17 16:00 11/18/17 19:37 Temperature 96.7 F L Pulse Rate 102 H Respiratory Rate 17 16 20 Blood Pressure 95/52 L Pulse Oximetry 100 100 11/18/17 20:00 11/18/17 20:03 11/18/17 22:00 Temperature 96.6 F L Pulse Rate 84 97 H Respiratory Rate 16 16 Blood Pressure 101/58 L Pulse Oximetry 100 100 11/18/17 23:55 11/19/17 00:00 11/19/17 01:20 Temperature 96.6 F L Pulse Rate 84 Respiratory Rate 16 16 20 Blood Pressure 101/58 L Pulse Oximetry 100 100 11/19/17 02:00 11/19/17 03:54 11/19/17 04:00 Temperature 100.4 F H Pulse Rate 117 H 112 H Respiratory Rate 16 25 H Blood Pressure 108/57 L Pulse Oximetry 100 100 11/19/17 06:00 11/19/17 07:00 11/19/17 07:30 Temperature 98.2 F 98.2 F Pulse Rate 108 H 93 H 109 H Respiratory Rate 21 16 Blood Pressure 157/72 H 107/53 L Pulse Oximetry 100 100 11/19/17 08:00 11/19/17 08:30 11/19/17 08:35 Temperature 97.9 F 97.3 F L Pulse Rate 101 H 94 H Respiratory Rate 16 16 16 Blood Pressure 100/54 L 101/55 L Pulse Oximetry 100 100 100 Intake & Output 11/18/17 11/19/17 11/19/17 18:59 06:59 18:59 Intake Total 1399 / 1399 1979 / 1979 Output Total 500 / 500 1300 / 1300 Balance 899 / 899 680 / 680 Weight 116.5 kg Intake: IV 750 / 750 1150 / 1150 Diprivan 1000 mg/100 ml Inj 1, 200 / 200 300 / 300 000 mg In 100 ml @ 5 MCG/KG/MIN 3.261 mls/hr IV.CONT TITRATE PRN Rx#:[id number] Zyvox 600 mg Premix 300 ML @ 300 / 300 300 / 300 300 mls/hr IV.SIG Q12H [facility] Rx#: [id number] Merrem Inj 1,000 MG In NS Inj 200 / 200 100 ML @ 200 mls/hr IV.SIG Q12H [facility] Rx#:[id number] Mycamine Inj 100 MG In NS Inj 100 / 100 100 ML @ 100 mls/hr IV.SIG Q24H [facility] Rx#:[id number] fentaNYL 10 mcg/mL Premix Drip 250 / 250 250 / 250 2,500 mcg In 250 ml @ 50 MCG/HR 5 mls/hr IV.SIG TITRATE PRN Rx #:[id number] Tube Feeding 589 / 589 650 / 650 Tube Irrigant 60 / 60 180 / 180 Output: Stool 800 / 800 Urine Amount (Catheter) 500 / 500 500 / 500 Indwelling Urethral Catheter 500 / 500 500 / 500 Other: Date of Last Bowel Movement 11/18/17 11/19/17 Result Diagrams: 11/20/17 05:30 11/20/17 05:30 Objective Remarks: GENERAL: 52-year-old morbidly obese -[place] female, intubated and sedated HEENT: NCAT, PERRL NECK: Trachea is midline. ETT and NGT in place. CHEST: Mechanical breath sounds bilaterally, diminished at bases bilaterally CARDIOVASCULAR: Regular rate and rhythm. ABDOMEN: Morbidly obese, soft, non-tender in all quadrants. Extensive wounds to lower midline abdomen and low transverse abdomen with staple closure, purulent drainage noted on bandages. MUSCULOSKELETAL: Pitting anasarca to all extremities. NEUROLOGICAL: GCS 9T ([id number]) on sedation, opens eyes to voice and makes eye contact, RASS 0 to -1. Appears comfortable. Assessment and Plan - Assessment and Plan Plan: Assessment: 52-year-old female with an extensive recent medical history including multiple wound infections and severe acute protein calorie malnutrition who presents with recurrent severe sepsis and wound infection. I agree with palliative care consult as despite her young age, her overall 1 year mortality rate is very high given that she has had almost no improvement at all in considerable worsening of her overall function and medical history while inpatient over the last few months. Active problems: Severe Sepsis Acute hypoxemic respiratory failure Metabolic encephalopathy Severe sepsis Severe C diff colitis Deep tissue wound infection lower abdomen and perineum Severe hypoglycemia-resolved Elevated BMI Leukocytosis Normocytic anemia Thrombocytopenia Depressive disorder NOS Hyperlipidemia Acute kidney injury creatinine currently 2.48 Plan: NEURO: Sedated with propofol and fentanyl gtt for pain control. Frequent neurochecks. Continue mirtazapine 15 mg at night, trazodone 100 mg at night, apiriprazone 30 mg daily and buspirone 15 mg 3 times daily. Daily sedation vacation. CARDIO: Sinus tachycardia is likely compensatory mechanism and from SIRS response Continue diltiazem 60 mg 3 times daily for hypertension Continue to hold pravastatin 40 mg daily for dyslipidemia RESP: Currently on 16/600/5/35, ABG 7.27/34/140/15/-10.2 CXR shows ETT in adequate position, otherwise stable F/E/N: Concentrated albumin for IV resuscitation. Base deficit 10, will check another ABG following colloids. Patient is significantly net positive for admission, but third-spacing and insensible losses due to continued diarrhea and wounds is difficult to quantify. Tube feeds at goal Unable to place PEG or PEJ due to severe protein calorie malnutrition and high likelihood of surgical complications, plus patient has had gastric sleeve as per previous notes. : Continued acute kidney injury, unchanged. No eosinophils seen in urine, urine sodium 11. Avoid nephrotoxic drugs. ID: Most recent cultures show no growth at 3 days, continue p.o. vancomycin 250 mg QID and difficid for C Diff. Continue IV antibiotics, Linezolid, meropenem and micafungin. Patient has persistent leukocytosis and bandemia. Previous cultures have grown numerous resistant organisms. Meets criteria for severe C. difficile, creat >1.5, WBC >15K Lower abdomen and perineal wound infections, general surgery and ID following HEME: Anemia and thrombocytopenia stable. Last transfusion of PRBCs on 11/17. ENDO: Frequent glycemic checks, D50 for hypoglycemia Overall: Prognosis remains very poor with multiple comorbidities, debility, malnutrition, sepsis likely from infected wounds. Inability to protect airway and hypoxemic respiratory failure. Famotidine for GI prophylaxis. SCDs for DVT prophylaxis. If hemoglobin and platelets are stable tomorrow, will restart SQH. Palliative care input appreciated as goals of care will need to be discussed with family. Counseling/ Coordination of Care: Total critical care time: 41 minutes. This includes examining the patient, gathering history from someone other than the patient (i.e., chart review), discussing the patient's care with other providers, managing the patient's blood pressure and ventilator settings, ordering and interpreting radiology studies, ordering and interpreting laboratory studies, managing the patient's pain and sedation requirements, re-evaluation at frequent intervals, and documentation. All critical care time is separate and exclusive of procedures, teaching, and patient/ family updates.
[2017-11-19] MEDS: Pantoprazole Inj 40 MG Vial IV.PUSH SCH (09:16)
[2017-11-19] MEDS: Heparin Central Flush 100 UNIT/ML 5 ML Vial IV.FLUSH SCH ×2 (09:16→09:17)
[2017-11-19] MEDS ORDERED: Albumin Human 25% Inj 100 ML IV.SIG ONE (10:00)
--- NOTE | 2017-11-19 12:06 | P.PNGS ---
Subjective Interval history: sedated on vent Physical Exam Vital signs: Vital Signs 11/18/17 12:41 11/18/17 14:00 11/18/17 14:12 Temperature Pulse Rate 100 H Respiratory Rate 14 17 Blood Pressure Pulse Oximetry 100 100 11/18/17 16:00 11/18/17 19:37 11/18/17 20:00 Temperature 96.7 F L 96.6 F L Pulse Rate 102 H 84 Respiratory Rate 16 20 16 Blood Pressure 95/52 L 101/58 L Pulse Oximetry 100 100 11/18/17 20:03 11/18/17 22:00 11/18/17 23:55 Temperature Pulse Rate 97 H Respiratory Rate 16 16 Blood Pressure Pulse Oximetry 100 100 11/19/17 00:00 11/19/17 01:20 11/19/17 02:00 Temperature 96.6 F L Pulse Rate 84 117 H Respiratory Rate 16 20 Blood Pressure 101/58 L Pulse Oximetry 100 11/19/17 03:54 11/19/17 04:00 11/19/17 06:00 Temperature 100.4 F H Pulse Rate 112 H 108 H Respiratory Rate 16 25 H Blood Pressure 108/57 L Pulse Oximetry 100 100 11/19/17 07:00 11/19/17 07:30 11/19/17 08:00 Temperature 98.2 F 98.2 F 97.9 F Pulse Rate 93 H 109 H 101 H Respiratory Rate 21 16 16 Blood Pressure 157/72 H 107/53 L 100/54 L Pulse Oximetry 100 100 100 11/19/17 08:30 11/19/17 08:35 11/19/17 10:00 Temperature 97.3 F L Pulse Rate 94 H 86 Respiratory Rate 16 16 Blood Pressure 101/55 L Pulse Oximetry 100 100 11/19/17 11:29 Temperature Pulse Rate Respiratory Rate 16 Blood Pressure Pulse Oximetry Intake & Output 11/18/17 11/19/17 11/19/17 18:59 06:59 18:59 Intake Total 1399 / 1399 1979 / 1979 650 / 650 Output Total 500 / 500 1300 / 1300 Balance 899 / 899 680 / 680 650 / 650 Weight 116.5 kg Intake: IV 750 / 750 1150 / 1150 650 / 650 Diprivan 1000 mg/100 ml Inj 1, 200 / 200 300 / 300 100 / 100 000 mg In 100 ml @ 5 MCG/KG/MIN 3.261 mls/hr IV.CONT TITRATE PRN Rx#:[id number] Zyvox 600 mg Premix 300 ML @ 300 / 300 300 / 300 300 / 300 300 mls/hr IV.SIG Q12H [facility] Rx#: [id number] Merrem Inj 1,000 MG In NS Inj 200 / 200 100 ML @ 200 mls/hr IV.SIG Q12H [facility] Rx#:[id number] Mycamine Inj 100 MG In NS Inj 100 / 100 100 ML @ 100 mls/hr IV.SIG Q24H [facility] Rx#:[id number] fentaNYL 10 mcg/mL Premix Drip 250 / 250 250 / 250 250 / 250 2,500 mcg In 250 ml @ 50 MCG/HR 5 mls/hr IV.SIG TITRATE PRN Rx #:[id number] Tube Feeding 589 / 589 650 / 650 Tube Irrigant 60 / 60 180 / 180 Output: Stool 800 / 800 Urine Amount (Catheter) 500 / 500 500 / 500 Indwelling Urethral Catheter 500 / 500 500 / 500 Other: Date of Last Bowel Movement 11/18/17 11/19/17 11/18/17 - Routine Abdominal Exam Comments: wounds open but clean, no pus. - Urinary Catheter Management Female External Cath placed during this visit: no Indwelling Urethral Catheter Cath placed during this visit: yes, but has since been removed by the nurse Reason for continuing: Severe pressure ulcer/wound Insertion date: 10/09/17 Insertion time: 14:00 Removal date: 10/05/17 Removal time: 17:30 Assessment and Plan - Assessment (1) Fungal infection of skin of abdomen Code(s): B36.9 - Superficial mycosis, unspecified Status: Acute Plan: 52 year old female with large abdominal/thigh wounds -intubated in [facility] -Palliative Care following -Continue wound care, stable wounds - will follow along - Plan supportive care wound care palliative care DW family LEI vasquez at bedside
--- NOTE | 2017-11-19 12:32 | P.PNID ---
Subjective Remarks: ID coverage. 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 Post op it appears she was discharged to a rehab. She was discharged from the rehab to home with her on August 23. Patient reports she lives at home with her who is on disability. Unsure of nature of disability at this time and his ability to take care of her. She was reportedly able to ambulate on her own initially followed by weakness and need for walker and then to a point where she did not want to get out of bed. It has been reported to others that she had some discharge at the left surgical site area and ortho surgeon prescribed oral keflex which reportedly lead to some improvement. She reportedly completed a week of antibiotic treatment with last day scheduled for today with some improvement in her knee pain. However her stated that she was starting to have more drainage from her knee just over the past day or so. He had pointed to several areas that had been draining pus from just above and just below the knee. He stated that a cup full of pus would drain at a time. Additionally the abdominal fold wounds appear to have been present for atleast 3 weeks now. With this background patient presented to the ED with complaints of worsening shortness of breath and mental status accompanied with symptoms of diarrhea (3 days, non-bloody) and decreased p.o. intake (5 days). She was also brought into the hospital due to infection of her knee that improved with Keflex p.o but now has returned with new additional drainage over the past few days. ID consulted for evaluation and Mment of Left knee prosthetic joint infection and neutropenia. Patient underwent incision and debridement of the inferior abdominal wall and proximal inner thighs on 10/12/2017. Since then she has had multiple surgeries done, last one done 11/01, closure of wounds Receiving IV antibiotics for left knee infection/C difficile. CT scan showed small joint effusion and subcutaneous edema of the fat at the left knee. Discussed with RN. Patient on the ventilator. Sedated. Noted to have hypothermia earlier and bear hugger is in place currently. No distress. Noted to have thick tenacious endotracheal secretions. Diarrhea ongoing via rectal tube. White blood cell count remain elevated. Blood culture has no growth. Antibiotics: Meropenem Dificid Zyvox Micafungin PO Vancomycin Lines: PICC Lines ok. Past Medical History: reviewed Allergies/Adverse Reactions: Allergies amoxicillin Allergy (Verified 09/27/17 17:54) Swelling Objective Vital Signs 11/18/17 12:41 11/18/17 14:00 11/18/17 14:12 Temperature Pulse Rate 100 H Respiratory Rate 14 17 Blood Pressure Pulse Oximetry 100 100 11/18/17 16:00 11/18/17 19:37 11/18/17 20:00 Temperature 96.7 F L 96.6 F L Pulse Rate 102 H 84 Respiratory Rate 16 20 16 Blood Pressure 95/52 L 101/58 L Pulse Oximetry 100 100 11/18/17 20:03 11/18/17 22:00 11/18/17 23:55 Temperature Pulse Rate 97 H Respiratory Rate 16 16 Blood Pressure Pulse Oximetry 100 100 11/19/17 00:00 11/19/17 01:20 11/19/17 02:00 Temperature 96.6 F L Pulse Rate 84 117 H Respiratory Rate 16 20 Blood Pressure 101/58 L Pulse Oximetry 100 11/19/17 03:54 11/19/17 04:00 11/19/17 06:00 Temperature 100.4 F H Pulse Rate 112 H 108 H Respiratory Rate 16 25 H Blood Pressure 108/57 L Pulse Oximetry 100 100 11/19/17 07:00 11/19/17 07:30 11/19/17 08:00 Temperature 98.2 F 98.2 F 97.9 F Pulse Rate 93 H 109 H 101 H Respiratory Rate 21 16 16 Blood Pressure 157/72 H 107/53 L 100/54 L Pulse Oximetry 100 100 100 11/19/17 08:30 11/19/17 08:35 11/19/17 10:00 Temperature 97.3 F L Pulse Rate 94 H 86 Respiratory Rate 16 16 Blood Pressure 101/55 L Pulse Oximetry 100 100 11/19/17 11:29 Temperature Pulse Rate Respiratory Rate 16 Blood Pressure Pulse Oximetry Intake & Output 11/18/17 11/19/17 11/19/17 18:59 06:59 18:59 Intake Total 1399 / 1399 1979 / 1979 650 / 650 Output Total 500 / 500 1300 / 1300 Balance 899 / 899 680 / 680 650 / 650 Weight 116.5 kg Intake: IV 750 / 750 1150 / 1150 650 / 650 Diprivan 1000 mg/100 ml Inj 1, 200 / 200 300 / 300 100 / 100 000 mg In 100 ml @ 5 MCG/KG/MIN 3.261 mls/hr IV.CONT TITRATE PRN Rx#:[id number] Zyvox 600 mg Premix 300 ML @ 300 / 300 300 / 300 300 / 300 300 mls/hr IV.SIG Q12H [place] Rx#: [id number] Merrem Inj 1,000 MG In NS Inj 200 / 200 100 ML @ 200 mls/hr IV.SIG Q12H [place] Rx#:[id number] Mycamine Inj 100 MG In NS Inj 100 / 100 100 ML @ 100 mls/hr IV.SIG Q24H [facility] Rx#:[id number] fentaNYL 10 mcg/mL Premix Drip 250 / 250 250 / 250 250 / 250 2,500 mcg In 250 ml @ 50 MCG/HR 5 mls/hr IV.SIG TITRATE PRN Rx #:[id number] Tube Feeding 589 / 589 650 / 650 Tube Irrigant 60 / 60 180 / 180 Output: Stool 800 / 800 Urine Amount (Catheter) 500 / 500 500 / 500 Indwelling Urethral Catheter 500 / 500 500 / 500 Other: Date of Last Bowel Movement 11/18/17 11/19/17 11/18/17 11/15/17 13:10 Blood - Line Aerobic Blood Culture - Preliminary No growth in 4 days 11/15/17 13:10 Blood - Line Anaerobic Blood Culture - Preliminary No growth in 4 days 11/15/17 12:30 Blood - Peripheral Aerobic Blood Culture - Preliminary No growth in 4 days 11/15/17 12:30 Blood - Peripheral Anaerobic Blood Culture - Preliminary No growth in 4 days 11/15/17 12:35 Blood - Peripheral Aerobic Blood Culture - Preliminary No growth in 4 days 11/15/17 12:35 Blood - Peripheral Anaerobic Blood Culture - Preliminary No growth in 4 days 11/12/17 12:20 Blood - Peripheral Aerobic Blood Culture - Final No growth in 5 days 11/12/17 12:20 Blood - Peripheral Anaerobic Blood Culture - Final No growth in 5 days 11/12/17 12:25 Blood - Peripheral Aerobic Blood Culture - Final No growth in 5 days 11/12/17 12:25 Blood - Peripheral Anaerobic Blood Culture - Final No growth in 5 days Lab - Hematology Results 11/18/17 11/19/17 04:00 04:30 WBC 15.2 H 14.4 H RBC 2.80 L 2.83 L Hgb 7.9 L 7.9 L Hct 23.1 L 23.5 L MCV 82.6 82.9 MCH 28.1 28.0 MCHC 34.0 33.8 RDW 17.3 H 17.7 H Plt Count 73 L 75 L MPV 7.3 7.8 Prelim Diff (Auto) Slide review pending Neut % (Auto) 78.6 H Lymph % (Auto) 15.1 Dane % (Auto) 4.2 Eos % (Auto) 1.8 Baso % (Auto) 0.3 Neut # (Auto) 12.0 H Lymph # (Auto) 2.3 Dane # (Auto) 0.6 Eos # (Auto) 0.3 Baso # (Auto) 0.0 WBC Differential Manual diff final Seg Neuts % (Manual) 49 Band Neuts % (Manual) 38 H Lymphocytes % (Manual) 11 Monocytes % (Manual) 2 Abs Neuts (Manual) 13.2 H Differential Comment . Toxic Granulation 2+ H Platelet Estimate Low L Platelet Morphology Normal Target Cells 1+ H Lab - Chemistry Results 11/17/17 11/17/17 11/17/17 05:45 12:45 17:36 Sodium Potassium Chloride Carbon Dioxide Anion Gap BUN Creatinine Estimated GFR POC Glucose 105 106 Random Glucose Calcium Phosphorus Magnesium Total Bilirubin AST ALT Alkaline Phosphatase Total Protein Albumin Prealbumin Beta HCG, Quant Less than 1 11/17/17 11/18/17 11/18/17 23:41 04:00 12:20 Sodium 141 Potassium 4.5 Chloride 110 H Carbon Dioxide 18.4 L Anion Gap 13 BUN 56 H Creatinine 2.82 H Estimated GFR 21 L POC Glucose 114 H 91 Random Glucose 66 L Calcium 8.2 L Phosphorus 2.5 Magnesium 1.7 Total Bilirubin 0.3 AST 19 ALT 12 Alkaline Phosphatase 141 H Total Protein 4.6 L Albumin 0.8 L Prealbumin Beta HCG, Quant 11/18/17 11/18/17 11/19/17 19:15 23:21 04:30 Sodium 143 Potassium 4.7 Chloride 112 H Carbon Dioxide 17.8 L Anion Gap 13 BUN 60 H Creatinine 2.82 H Estimated GFR 21 L POC Glucose 93 103 Random Glucose 81 Calcium 8.5 Phosphorus 3.2 Magnesium 1.8 Total Bilirubin AST ALT Alkaline Phosphatase Total Protein Albumin Prealbumin 10 L Beta HCG, Quant Imaging: ITS Impressions Tibia/Fibula X-Ray 09/27/17 00:00 CONCLUSION: No acute left leg abnormality is identified. Abdomen/Pelvis CT 09/27/17 08:10 CONCLUSION: 1. Mild hepatic steatosis. 2. Thickening of the colon secondary to lack of distention versus colitis. 3. Left lower lobe consolidation and/or atelectasis. There does appear to be a 1.4 cm cavitary area which makes consolidation likely. Chest CTA 09/27/17 08:22 CONCLUSION: 1. No pulmonary embolus. 2. Consolidation or atelectasis at the left lower lobe. Knee CT 10/18/17 00:00 CONCLUSION: 1. Small joint effusion. 2. Nonspecific subcutaneous edema in the subcutaneous soft tissues above and below the knee. 3. No significant changes compared to the prior exam. Ankle X-Ray 10/19/17 00:00 CONCLUSION: 1. No acute fracture or dislocation. Knee X-Ray 10/19/17 00:00 CONCLUSION: 1. Total knee prosthesis in place. 2. Moderate-sized knee joint effusion. Head CT 11/10/17 00:00 CONCLUSION: 1. Interval enlargement of the ventricular system of uncertain etiology. There is no clear evidence of an obstructing process. 2. Otherwise stable evaluation without evidence of acute infarct, hemorrhage, mass or edema. . Venous Doppler Study 11/10/17 00:00 CONCLUSION: 1. No venous thrombosis is identified within either lower extremity. 2. As described above, secondary to open wounds, the left external iliac, common femoral vein, and greater saphenous veins were not adequately evaluated. Head MRI 11/11/17 00:00 CONCLUSION: 1. Motion artifact is present throughout the scan. 2. Examination is diagnostic. 3. No evidence of acute infarct, hemorrhage, mass or edema. PICC Line Insertion 11/11/17 08:51 CONCLUSION: 1. Uncomplicated central venous Power PICC line placement. 2. The PICC line can be used immediately. Chest X-Ray 11/19/17 05:00 CONCLUSION: No significant change is appreciated. There is mild patchy presumed airspace consolidation in the lower lung zones bilaterally. Physical Exam: GENERAL: On the vent, NAD. HEENT: Pupils reactive to light. No icterus. Orally intubated NECK: Supple without adenopathy. No swelling. LUNGS: Decreased breath sounds. HEART: Regular S1 and S2. ABDOMEN: Obese, soft. Nontender. Groin and abdominal area with sutures in place and dressing with some weeping of serous discharge noted.Tunneling noted in the center of the abdomen. There is a large open wound in medial upper L thigh, no purulence. Sacral area with abrasion noted. EXTREMITIES: Diffuse edema of the extremities. SKIN: No diffuse rash. NEUROLOGIC: Sedated. Not following commands. PSYCH: Unable to assess LINE: No evidence of infection Assessment and Plan - Plan IMPRESSION: Sepsis. Neutropenic sepsis on admission Abdominal fold cellulitis/skin breakdown. Post incision and debridement and closure of skin fold. General surgery following. s/p panniculectomy. Groin cellulitis, Mons pubis cellulitis/skin breakdown. Leucopenia, pancytopenia: ? MTX, ? Psych meds, ? Sepsis contributing. resolved. Left knee hardware in place. CT with fluid collection. Left knee infection - prior wound culture had Pseudomonas and group B beta strep. PSAE, VRE and Susy glabrata infection of the abdominal wound. Severe Cdiff - Positive PCR C. difficile. Acute resp failure, likely aspiration PNA Acute metabolic encephalopathy: sepsis. RECOMMENDATIONS: Continue Zyvox for MRSA and VRE coverage Continue Meropenem for broader GNR coverage till cultures finalized. Continue Micafungin IV for c.glabrata infection and concern for new line fungemia. Continue po Vanco for C diff. Continue Dificid for severe Cdiff as patient on concomitant antibiotics. Follow blood cultures. Monitor progress D/W RN.
[2017-11-19 13:38] LABS: ABG PCO2 35 mmHg (38-42); ABG PO2 160 mmHG (61-120)
--- NOTE | 2017-11-19 13:41 | P.PNPAL ---
Reason for Visit Reason for visit: a. To assist with evaluation and management of symptoms including: dyspnea, pain, debility, anxiety b. To assist medical decision maker(s) with: better understanding of current medical conditions; weighing benefits/burdens of medical treatment options; making medical treatment decisions. Subjective Subjective/Interval History: Pt resting in bed, sedated on vent. Sedation has been increased by RN today from 8ml/hr to 26 ml/hr d/t tachycardia. Psych following, on numerous meds. No sign anxiety on my eval. NO sign pain. ON fentanyl gtt 25ml/hr. Pt intubated 11/12. Vent weaning unsuccessful thus far. She did tolerate cpap for 6h yesterday but then became apneic and tachycardic. cxr 11/19 unchanged. lung sounds coarse. Abd wounds worsening- increased dehiscence. Still with c diff, now septic. ID on case, have added dificid. Labile temps, has been hypothermic and requiring jay hugger. Family/Friend Interactions: spoke with pts and proxy on phone: -family understanding of the current medical problems -family understanding of prognosis -Current medical treatment options and their benefits/burdens -Likely scenarios comparing ongoing aggressive care with transition to ``comfort -measures only - CODE STATUS, benefits/burdens/limitations of CPR, intubation, and mechanical ventilation - wants full code -Questions answered to the best of my ability - Palliative care contact information provided Goals aggressive. Explained that her prognosis was poor and she could from her numerous infections and sepsis. feels changing code status "would kill her." 1530 's mother called me. She requested update and said pt's has little understanding and insight and she wanted to try to explain it to him. She verbalized understanding and seems to have better insight, "my of sepsis." SHe did not think pt 's & family would ever agree to compassionate withdrawal. Objective Vital Signs: Vital Signs 11/18/17 14:00 11/18/17 14:12 11/18/17 16:00 Temperature 96.7 F L Pulse Rate 100 H 102 H Respiratory Rate 17 16 Blood Pressure 95/52 L Pulse Oximetry 100 100 11/18/17 19:37 11/18/17 20:00 11/18/17 20:03 Temperature 96.6 F L Pulse Rate 84 Respiratory Rate 20 16 16 Blood Pressure 101/58 L Pulse Oximetry 100 100 11/18/17 22:00 11/18/17 23:55 11/19/17 00:00 Temperature 96.6 F L Pulse Rate 97 H 84 Respiratory Rate 16 16 Blood Pressure 101/58 L Pulse Oximetry 100 100 11/19/17 01:20 11/19/17 02:00 11/19/17 03:54 Temperature Pulse Rate 117 H Respiratory Rate 20 16 Blood Pressure Pulse Oximetry 100 11/19/17 04:00 11/19/17 06:00 11/19/17 07:00 Temperature 100.4 F H 98.2 F Pulse Rate 112 H 108 H 93 H Respiratory Rate 25 H 21 Blood Pressure 108/57 L 157/72 H Pulse Oximetry 100 100 11/19/17 07:30 11/19/17 08:00 11/19/17 08:30 Temperature 98.2 F 97.9 F 97.3 F L Pulse Rate 109 H 101 H 94 H Respiratory Rate 16 16 16 Blood Pressure 107/53 L 100/54 L 101/55 L Pulse Oximetry 100 100 100 11/19/17 08:35 11/19/17 10:00 11/19/17 11:29 Temperature Pulse Rate 86 Respiratory Rate 16 16 Blood Pressure Pulse Oximetry 100 11/19/17 12:10 Temperature Pulse Rate Respiratory Rate 16 Blood Pressure Pulse Oximetry 100 Intake & Output 11/18/17 11/19/17 11/19/17 18:59 06:59 18:59 Intake Total 1399 / 1399 1979 / 1979 650 / 650 Output Total 500 / 500 1300 / 1300 Balance 899 / 899 680 / 680 650 / 650 Weight 116.5 kg Intake: IV 750 / 750 1150 / 1150 650 / 650 Diprivan 1000 mg/100 ml Inj 1, 200 / 200 300 / 300 100 / 100 000 mg In 100 ml @ 5 MCG/KG/MIN 3.261 mls/hr IV.CONT TITRATE PRN Rx#:[id number] Zyvox 600 mg Premix 300 ML @ 300 / 300 300 / 300 300 / 300 300 mls/hr IV.SIG Q12H [facility] Rx#: [id number] Merrem Inj 1,000 MG In NS Inj 200 / 200 100 ML @ 200 mls/hr IV.SIG Q12H [facility] Rx#:[id number] Mycamine Inj 100 MG In NS Inj 100 / 100 100 ML @ 100 mls/hr IV.SIG Q24H [facility] Rx#:[id number] fentaNYL 10 mcg/mL Premix Drip 250 / 250 250 / 250 250 / 250 2,500 mcg In 250 ml @ 50 MCG/HR 5 mls/hr IV.SIG TITRATE PRN Rx #:[id number] Tube Feeding 589 / 589 650 / 650 Tube Irrigant 60 / 60 180 / 180 Output: Stool 800 / 800 Urine Amount (Catheter) 500 / 500 500 / 500 Indwelling Urethral Catheter 500 / 500 500 / 500 Other: Date of Last Bowel Movement 11/18/17 11/19/17 11/18/17 Physical Exam: TUBES/LINES/DRAINS: rectal tube with liquid stool, herrera, PIV OETT SKIN: No jaundice, rashes, or lesions. No wounds seen anteriorly. Skin temperature appropriate. Not diaphoretic. HEAD: Atraumatic. Normocephalic. EYES:pupils constricted, no EOMI. No scleral icterus. No injection or drainage. Fundi not examined. ENT: Nose without bleeding or purulent drainage. CARDIOVASCULAR: RRR without murmurs, gallops, or rubs. No JVD. Peripheral pulses symmetric. RESPIRATORY/CHEST: Symmetric, unlabored respirations. Lung sounds coarse. GASTROINTESTINAL: Abdomen obese, vertical incision extending down from umbilicus and horizontal incision under pannus poorly approximated with nedra , dehiscing, loose dressings. Edematous.bilat groin wounds dehiscing. Left thigh subq fat visible. BS faint. MUSCULOSKELETAL: generalized edema. no clubbing or cyanosis NEUROLOGICAL: sedated on vent Diagnostic Tests Laboratory: Laboratory Results - last 72 hr 10/29/17 11/16/17 11/16/17 17:35 15:10 17:15 WBC RBC Hgb Hct MCV MCH MCHC RDW Plt Count MPV Prelim Diff (Auto) Neut % (Auto) Lymph % (Auto) Rankin % (Auto) Eos % (Auto) Baso % (Auto) Neut # (Auto) Lymph # (Auto) Rankin # (Auto) Eos # (Auto) Baso # (Auto) WBC Differential Seg Neuts % (Manual) Band Neuts % (Manual) Lymphocytes % (Manual) Monocytes % (Manual) Eosinophils % (Manual) Metamyelocytes % (Man) Abs Neuts (Manual) Nucleated RBCs/100 WBC Differential Comment Toxic Granulation Platelet Estimate Platelet Morphology Target Cells Puncture Site Patient Temperature O2 Saturation ABG pH ABG pCO2 ABG pO2 ABG HCO3 ABG O2 Content ABG Base Excess ABG Methemoglobin Kirk Test Hemoglobin Carboxyhemoglobin O2 Delivery Device Vent Setting Inspired O2 Critical Value Sodium Potassium Chloride Carbon Dioxide Anion Gap BUN Creatinine Estimated GFR POC Glucose 69 Random Glucose Calcium Phosphorus Magnesium Total Bilirubin AST ALT Alkaline Phosphatase Total Protein Albumin Prealbumin Beta HCG, Quant Urine Eosinophils Ur Random Creatinine Ur Random Sodium Blood Type O Positive Antibody Screen Negative MTS Gel Crossmatch See Detail See Detail Bld Prod Order Comment 11/16/17 11/17/17 11/17/17 23:43 05:45 05:45 WBC 15.6 H RBC 2.99 L Hgb 8.4 L Hct 24.9 L MCV 83.1 MCH 27.9 MCHC 33.6 RDW 17.6 H Plt Count 87 L MPV 8.2 Prelim Diff (Auto) Slide review pending Neut % (Auto) 76.8 H Lymph % (Auto) 16.3 Rankin % (Auto) 4.6 Eos % (Auto) 1.9 Baso % (Auto) 0.4 Neut # (Auto) 12.0 H Lymph # (Auto) 2.6 Rankin # (Auto) 0.7 Eos # (Auto) 0.3 Baso # (Auto) 0.1 WBC Differential Manual diff final Seg Neuts % (Manual) 53 Band Neuts % (Manual) 28 H Lymphocytes % (Manual) 11 Monocytes % (Manual) 6 Eosinophils % (Manual) 1 Metamyelocytes % (Man) 1 Abs Neuts (Manual) 12.8 H Nucleated RBCs/100 WBC 2 H Differential Comment . Toxic Granulation Platelet Estimate Low L Platelet Morphology Normal Target Cells 1+ H Puncture Site Patient Temperature O2 Saturation ABG pH ABG pCO2 ABG pO2 ABG HCO3 ABG O2 Content ABG Base Excess ABG Methemoglobin Kirk Test Hemoglobin Carboxyhemoglobin O2 Delivery Device Vent Setting Inspired O2 Critical Value Sodium 140 Potassium 4.5 Chloride 110 H Carbon Dioxide 18.0 L Anion Gap 12 BUN 45 H Creatinine 2.48 H Estimated GFR 25 L POC Glucose 99 Random Glucose 86 Calcium 7.9 L Phosphorus Magnesium Total Bilirubin 0.3 AST 24 ALT 16 Alkaline Phosphatase 142 H Total Protein 4.6 L Albumin 0.8 L Prealbumin Beta HCG, Quant Urine Eosinophils Ur Random Creatinine Ur Random Sodium Blood Type Antibody Screen MTS Gel Crossmatch Bld Prod Order Comment 11/17/17 11/17/17 11/17/17 05:45 06:27 06:30 WBC RBC Hgb Hct MCV MCH MCHC RDW Plt Count MPV Prelim Diff (Auto) Neut % (Auto) Lymph % (Auto) Rankin % (Auto) Eos % (Auto) Baso % (Auto) Neut # (Auto) Lymph # (Auto) Rankin # (Auto) Eos # (Auto) Baso # (Auto) WBC Differential Seg Neuts % (Manual) Band Neuts % (Manual) Lymphocytes % (Manual) Monocytes % (Manual) Eosinophils % (Manual) Metamyelocytes % (Man) Abs Neuts (Manual) Nucleated RBCs/100 WBC Differential Comment Toxic Granulation Platelet Estimate Platelet Morphology Target Cells Puncture Site Patient Temperature O2 Saturation ABG pH ABG pCO2 ABG pO2 ABG HCO3 ABG O2 Content ABG Base Excess ABG Methemoglobin Kirk Test Hemoglobin Carboxyhemoglobin O2 Delivery Device Vent Setting Inspired O2 Critical Value Sodium Potassium Chloride Carbon Dioxide Anion Gap BUN Creatinine Estimated GFR POC Glucose 69 94 Random Glucose Calcium Phosphorus Magnesium Total Bilirubin AST ALT Alkaline Phosphatase Total Protein Albumin Prealbumin Beta HCG, Quant Less than 1 Urine Eosinophils Ur Random Creatinine Ur Random Sodium Blood Type Antibody Screen MTS Gel Crossmatch Bld Prod Order Comment 11/17/17 11/17/17 11/17/17 12:45 14:20 14:20 WBC RBC Hgb Hct MCV MCH MCHC RDW Plt Count MPV Prelim Diff (Auto) Neut % (Auto) Lymph % (Auto) Rankin % (Auto) Eos % (Auto) Baso % (Auto) Neut # (Auto) Lymph # (Auto) Rankin # (Auto) Eos # (Auto) Baso # (Auto) WBC Differential Seg Neuts % (Manual) Band Neuts % (Manual) Lymphocytes % (Manual) Monocytes % (Manual) Eosinophils % (Manual) Metamyelocytes % (Man) Abs Neuts (Manual) Nucleated RBCs/100 WBC Differential Comment Toxic Granulation Platelet Estimate Platelet Morphology Target Cells Puncture Site Patient Temperature O2 Saturation ABG pH ABG pCO2 ABG pO2 ABG HCO3 ABG O2 Content ABG Base Excess ABG Methemoglobin Kirk Test Hemoglobin Carboxyhemoglobin O2 Delivery Device Vent Setting Inspired O2 Critical Value Sodium Potassium Chloride Carbon Dioxide Anion Gap BUN Creatinine Estimated GFR POC Glucose 105 Random Glucose Calcium Phosphorus Magnesium Total Bilirubin AST ALT Alkaline Phosphatase Total Protein Albumin Prealbumin Beta HCG, Quant Urine Eosinophils None seen Ur Random Creatinine 90 Ur Random Sodium Blood Type Antibody Screen MTS Gel Crossmatch Bld Prod Order Comment 11/17/17 11/17/17 11/17/17 14:20 17:36 23:41 WBC RBC Hgb Hct MCV MCH MCHC RDW Plt Count MPV Prelim Diff (Auto) Neut % (Auto) Lymph % (Auto) Rankin % (Auto) Eos % (Auto) Baso % (Auto) Neut # (Auto) Lymph # (Auto) Rankin # (Auto) Eos # (Auto) Baso # (Auto) WBC Differential Seg Neuts % (Manual) Band Neuts % (Manual) Lymphocytes % (Manual) Monocytes % (Manual) Eosinophils % (Manual) Metamyelocytes % (Man) Abs Neuts (Manual) Nucleated RBCs/100 WBC Differential Comment Toxic Granulation Platelet Estimate Platelet Morphology Target Cells Puncture Site Patient Temperature O2 Saturation ABG pH ABG pCO2 ABG pO2 ABG HCO3 ABG O2 Content ABG Base Excess ABG Methemoglobin Kirk Test Hemoglobin Carboxyhemoglobin O2 Delivery Device Vent Setting Inspired O2 Critical Value Sodium Potassium Chloride Carbon Dioxide Anion Gap BUN Creatinine Estimated GFR POC Glucose 106 114 H Random Glucose Calcium Phosphorus Magnesium Total Bilirubin AST ALT Alkaline Phosphatase Total Protein Albumin Prealbumin Beta HCG, Quant Urine Eosinophils Ur Random Creatinine Ur Random Sodium 11 Blood Type Antibody Screen MTS Gel Crossmatch Bld Prod Order Comment 11/18/17 11/18/17 11/18/17 04:00 04:00 12:20 WBC 15.2 H RBC 2.80 L Hgb 7.9 L Hct 23.1 L MCV 82.6 MCH 28.1 MCHC 34.0 RDW 17.3 H Plt Count 73 L MPV 7.3 Prelim Diff (Auto) Slide review pending Neut % (Auto) 78.6 H Lymph % (Auto) 15.1 Rankin % (Auto) 4.2 Eos % (Auto) 1.8 Baso % (Auto) 0.3 Neut # (Auto) 12.0 H Lymph # (Auto) 2.3 Rankin # (Auto) 0.6 Eos # (Auto) 0.3 Baso # (Auto) 0.0 WBC Differential Manual diff final Seg Neuts % (Manual) 49 Band Neuts % (Manual) 38 H Lymphocytes % (Manual) 11 Monocytes % (Manual) 2 Eosinophils % (Manual) Metamyelocytes % (Man) Abs Neuts (Manual) 13.2 H Nucleated RBCs/100 WBC Differential Comment . Toxic Granulation 2+ H Platelet Estimate Low L Platelet Morphology Normal Target Cells 1+ H Puncture Site Patient Temperature O2 Saturation ABG pH ABG pCO2 ABG pO2 ABG HCO3 ABG O2 Content ABG Base Excess ABG Methemoglobin Kirk Test Hemoglobin Carboxyhemoglobin O2 Delivery Device Vent Setting Inspired O2 Critical Value Sodium 141 Potassium 4.5 Chloride 110 H Carbon Dioxide 18.4 L Anion Gap 13 BUN 56 H Creatinine 2.82 H Estimated GFR 21 L POC Glucose 91 Random Glucose 66 L Calcium 8.2 L Phosphorus 2.5 Magnesium 1.7 Total Bilirubin 0.3 AST 19 ALT 12 Alkaline Phosphatase 141 H Total Protein 4.6 L Albumin 0.8 L Prealbumin Beta HCG, Quant Urine Eosinophils Ur Random Creatinine Ur Random Sodium Blood Type Antibody Screen MTS Gel Crossmatch Bld Prod Order Comment 11/18/17 11/18/17 11/19/17 19:15 23:21 04:30 WBC 14.4 H RBC 2.83 L Hgb 7.9 L Hct 23.5 L MCV 82.9 MCH 28.0 MCHC 33.8 RDW 17.7 H Plt Count 75 L MPV 7.8 Prelim Diff (Auto) Neut % (Auto) Lymph % (Auto) Rankin % (Auto) Eos % (Auto) Baso % (Auto) Neut # (Auto) Lymph # (Auto) Rankin # (Auto) Eos # (Auto) Baso # (Auto) WBC Differential Seg Neuts % (Manual) Band Neuts % (Manual) Lymphocytes % (Manual) Monocytes % (Manual) Eosinophils % (Manual) Metamyelocytes % (Man) Abs Neuts (Manual) Nucleated RBCs/100 WBC Differential Comment Toxic Granulation Platelet Estimate Platelet Morphology Target Cells Puncture Site Patient Temperature O2 Saturation ABG pH ABG pCO2 ABG pO2 ABG HCO3 ABG O2 Content ABG Base Excess ABG Methemoglobin Kirk Test Hemoglobin Carboxyhemoglobin O2 Delivery Device Vent Setting Inspired O2 Critical Value Sodium Potassium Chloride Carbon Dioxide Anion Gap BUN Creatinine Estimated GFR POC Glucose 93 103 Random Glucose Calcium Phosphorus Magnesium Total Bilirubin AST ALT Alkaline Phosphatase Total Protein Albumin Prealbumin Beta HCG, Quant Urine Eosinophils Ur Random Creatinine Ur Random Sodium Blood Type Antibody Screen MTS Gel Crossmatch Bld Prod Order Comment 11/19/17 11/19/17 04:30 04:52 WBC RBC Hgb Hct MCV MCH MCHC RDW Plt Count MPV Prelim Diff (Auto) Neut % (Auto) Lymph % (Auto) Rankin % (Auto) Eos % (Auto) Baso % (Auto) Neut # (Auto) Lymph # (Auto) Rankin # (Auto) Eos # (Auto) Baso # (Auto) WBC Differential Seg Neuts % (Manual) Band Neuts % (Manual) Lymphocytes % (Manual) Monocytes % (Manual) Eosinophils % (Manual) Metamyelocytes % (Man) Abs Neuts (Manual) Nucleated RBCs/100 WBC Differential Comment Toxic Granulation Platelet Estimate Platelet Morphology Target Cells Puncture Site Right radial Patient Temperature 98.6 O2 Saturation 96 ABG pH 7.27 L* ABG pCO2 34 L ABG pO2 140 H ABG HCO3 15 L* ABG O2 Content 15.0 ABG Base Excess -10.2 L ABG Methemoglobin 1.9 Kirk Test Present Hemoglobin 11.0 L Carboxyhemoglobin 0.7 O2 Delivery Device Ventilator Vent Setting Prvc / ac / Inspired O2 35 Critical Value Yes Sodium 143 Potassium 4.7 Chloride 112 H Carbon Dioxide 17.8 L Anion Gap 13 BUN 60 H Creatinine 2.82 H Estimated GFR 21 L POC Glucose Random Glucose 81 Calcium 8.5 Phosphorus 3.2 Magnesium 1.8 Total Bilirubin AST ALT Alkaline Phosphatase Total Protein Albumin Prealbumin 10 L Beta HCG, Quant Urine Eosinophils Ur Random Creatinine Ur Random Sodium Blood Type Antibody Screen MTS Gel Crossmatch Bld Prod Order Comment Result Diagrams: 11/20/17 05:30 11/20/17 05:30 Microbiology: Microbiology 11/15/17 13:10 Aerobic Blood Culture - Preliminary Blood - Line No growth in 4 days Anaerobic Blood Culture - Preliminary No growth in 4 days 11/15/17 12:30 Aerobic Blood Culture - Preliminary Blood - Peripheral No growth in 4 days Anaerobic Blood Culture - Preliminary No growth in 4 days 11/15/17 12:35 Aerobic Blood Culture - Preliminary Blood - Peripheral No growth in 4 days Anaerobic Blood Culture - Preliminary No growth in 4 days 11/12/17 12:20 Aerobic Blood Culture - Final Blood - Peripheral No growth in 5 days Anaerobic Blood Culture - Final No growth in 5 days 11/12/17 12:25 Aerobic Blood Culture - Final Blood - Peripheral No growth in 5 days Anaerobic Blood Culture - Final No growth in 5 days Imaging: ITS Impressions Tibia/Fibula X-Ray 09/27/17 00:00 CONCLUSION: No acute left leg abnormality is identified. Abdomen/Pelvis CT 09/27/17 08:10 CONCLUSION: 1. Mild hepatic steatosis. 2. Thickening of the colon secondary to lack of distention versus colitis. 3. Left lower lobe consolidation and/or atelectasis. There does appear to be a 1.4 cm cavitary area which makes consolidation likely. Chest CTA 09/27/17 08:22 CONCLUSION: 1. No pulmonary embolus. 2. Consolidation or atelectasis at the left lower lobe. Knee CT 10/18/17 00:00 CONCLUSION: 1. Small joint effusion. 2. Nonspecific subcutaneous edema in the subcutaneous soft tissues above and below the knee. 3. No significant changes compared to the prior exam. Ankle X-Ray 10/19/17 00:00 CONCLUSION: 1. No acute fracture or dislocation. Knee X-Ray 10/19/17 00:00 CONCLUSION: 1. Total knee prosthesis in place. 2. Moderate-sized knee joint effusion. Head CT 11/10/17 00:00 CONCLUSION: 1. Interval enlargement of the ventricular system of uncertain etiology. There is no clear evidence of an obstructing process. 2. Otherwise stable evaluation without evidence of acute infarct, hemorrhage, mass or edema. . Venous Doppler Study 11/10/17 00:00 CONCLUSION: 1. No venous thrombosis is identified within either lower extremity. 2. As described above, secondary to open wounds, the left external iliac, common femoral vein, and greater saphenous veins were not adequately evaluated. Head MRI 11/11/17 00:00 CONCLUSION: 1. Motion artifact is present throughout the scan. 2. Examination is diagnostic. 3. No evidence of acute infarct, hemorrhage, mass or edema. PICC Line Insertion 11/11/17 08:51 CONCLUSION: 1. Uncomplicated central venous Power PICC line placement. 2. The PICC line can be used immediately. Chest X-Ray 11/19/17 05:00 CONCLUSION: No significant change is appreciated. There is mild patchy presumed airspace consolidation in the lower lung zones bilaterally. Procedures: 10/09 underwent I&D of abdominal wall and bilateral thighs, wound VAC placement 10/12 incision and drainage with debridement abdominal wall and bilateral lower thighs, wound VAC change 10/15 wound VAC change and closure of abdominal wall 11/01 I&D abdomen, bilateral thighs 11/12 intubated Assessment and Plan - Disease Oriented Problem List (1) Pneumonia (2) Cellulitis of knee, left (3) Prosthetic joint infection (4) Nutrition, metabolism, and development symptoms (5) Diarrhea (6) Schizophrenia (7) Hypertension (8) Fungal infection of skin of abdomen Pertinent Non-Medical Issues: Psychosocial: Pt is , has 2 children. She is unemployed. Originally from [place], [place], has been in [place] for nearly 40y. Has been 34 years. Spiritual: Sikh. Used to go to [employer] but not as much in recent past. Desires pastoral care. Legal: Pt not capacitated to make medical decisions. Per [place] statutes medical decision making falls to her as proxy. Ethical issues impacting care:none Important Contacts: Emile Mcclain Jr [phone] Emile Mcclain III [phone] Prognosis: This is a 52-year-old morbidly obese lady with history of mental illness, rheumatoid arthritis who presented 09/27 with shortness of breath, diarrhea, abdominal pain, change in mental status and was found to have multiple infected wounds in her abdomen, groin, and left knee. She is recently status post left knee replacement in July of this year. She has had multiple I&D's of her abdominal wound, fell causing dehiscence of those wounds and her left knee wound , was on TPN, has been having hypoglycemia, now is in IMC. Given her morbid obesity, multiple co morbidities, worsening wound infections, poor nutrition status, her prognosis is poor. Code Status: Full Code Plan: - LEGAL DECISON MAKER -patient is not capacitated to make medical decisions. Per [place] statutes medical decision making would fall to her as proxy - CODE STATUS-full code - GOALS - Goals are aggressive. Previously "wants everything done." Explained that her prognosis was poor and she could from her numerous infections and sepsis. feels changing code status "would kill her." 1529 's mother called me. She requested update and said pt's has little understanding and insight and she wanted to try to explain it to him. She verbalized understanding and seems to have better insight, "my of sepsis." SHe did not think pt 's & family would ever agree to compassionate withdrawal. - SYMPTOMS - * pain - acute and chronic, multifactorial. Has hx RA, s/p knee repalcement 2017, now s/p multiple I&D procedures for mult infected wounds. now sedated on vent, worsening abd wounds, dehiscence. on fentanyl gtt 25ml/hr no further recs at this time * debility - hx RA, morbidly obese, now with prolonged hospital stay. had increasing need for assistance at home ambulating and performing ADLs. Pain, persistent infections will be barrier to any aggressive rehab, she has already been bedbound for over a month and deconditioning. * SOB - originally presented with SOB. multifactorial. worsening left lower lobe consolidation on CXR. morbidly obese, at risk for OHS. now intubated on vent. CXR 11/19 no change. had episode poss aspiration last week, when cough started. risk for OHs. * agitation/anxiety - acute and chronic. hx bipolar, anxiety. Takes duloxetine , mirtazipine, buspirone at home, trazodone to sleep. propofol increased from 8 ml/hr to 26 ml/hr, 2/2 tachycardia. additionally has has PRn haldol here. Psych following, poss delerium. meds per psych - d/w Dr Stas Doherty, d/w RN - Palliative care will continue to follow during hospital course as condition evolves, to assist patient/decision-maker with understanding of medical conditions, weighing benefits/burdens of treatment options, for clarification of goals of treatment. Additionally will assist with any symptoms of palliative concern Attestation Attestation: To help prompt me to consider important information that might be impacting today's encounter and assessment, information from prior notes written by myself or my colleagues may have been "brought forward" into today's note. My signature on this note, however, is an attestation that I personally performed the exam, history, and/or decision-making noted today, and, unless otherwise indicated, the interactions with patient, family, and staff as well as the review of records all occurred today. I also attest that the listed assessment and stated plan reflect my best clinical judgment today based on the combination of historical information, prior notes, and today's exam/ interactions. When time spent is documented, it refers only to time spent today by the signer, or if indicated, combined time spent today by collaborating physician/nurse practitioner.
[2017-11-19 16:34] LABS: ABG Base Excess -9.7 mmol/L (-2-2); ABG PCO2 37 mmHg (38-42); ABG PO2 140 mmHG (61-120)
[2017-11-19] MEDS: Albumin Human 25% Inj 100 ML IV.SIG SCH (19:17)
[2017-11-19] MEDS: traZODone 100 MG Tablet PO SCH (20:18)
[2017-11-19] MEDS: Mirtazapine 15 MG Tablet PO SCH (20:19)
[2017-11-20] MEDS: Oral Hygiene Kit OROPHARYNG SCH ×4 (00:18→19:16)
[2017-11-20] MEDS: Insulin NovoLOG Aspart Correctional Sugar Inj SQ SCH ×4 (00:18→19:16)
[2017-11-20] MEDS: Albumin Human 25% Inj 100 ML IV.SIG SCH ×3 (00:18→19:15)
[2017-11-20] MEDS: Propofol 1000 mg/100 ml Inj 1,000 MG/100 ML BOTTLE IV.CONT PRN ×8 (00:19→22:27)
--- NOTE | 2017-11-20 03:55 | XR ---
EXAM DATE: 11/20/2017 3:41 AM EDT AGE/SEX: 52 years / Female INDICATIONS: Shortness of breath. Evaluate ET tube placement. CLINICAL DATA: This is the patient's subsequent encounter. Patient reports that signs and symptoms h ave been present for 2 weeks and indicates a pain score of Nonresponsive. MEDICAL/SURGICAL HISTORY: . Hypertension. Osteoarthritis. Renal insufficiency. . Fusion, cervi aldair. section. Hysterectomy. [place] [facility]. . FINDINGS: Portable AP view of the chest demonstrates a normal-sized cardiac silhouette. Endotracheal tube dista l tip is at the aortic knob level measuring approximately 3.9 cm from the shaka and nasogastric tube courses beyond the GE junction. Lungs are underinflated and there is mild airspace opacity in the le ft lung base. The left upper extremity PICC distal tip remains in the brachiocephalic vein. No pneumo thorax is visualized. CONCLUSION: 1. Endotracheal tube in appropriate position with tip measuring 3.9 cm from the shaka. 2. Stable patchy airspace opacity at the left lung base. Electronically signed by: Thor Corral MD 11/20/2017 3:53 AM EDT
[2017-11-20 05:45] LABS: ABG Base Excess -10.5 mmol/L (-2-2); ABG PCO2 35 mmHg (38-42); ABG PO2 161 mmHG (61-120)
[2017-11-20 05:47] LABS: Hematocrit 21.6 % (35.0-46.0); Hemoglobin 7.6 gm/dL (11.6-15.3); Mean Corpuscular HGB Conc 35.1 % (32.0-36.0); Mean Corpuscular Hemoglobin 29.6 pg (27.0-34.0); Mean Corpuscular Volume 84.2 fL (80.0-100.0); Mean Platelet Volume 7.8 fL (7.0-11.0); Platelet Count 56 th/mm3 (150-450); Red Blood Count 2.57 mil/mm3 (4.00-5.30); Red Cell Distribution Width 18.2 % (11.6-17.2)
[2017-11-20] MEDS: fentaNYL 10 mcg/mL Premix Drip 2,500 MCG/250 ML BAG IV.SIG PRN ×2 (05:58→16:01)
[2017-11-20 06:13] LABS: Calcium 7.6 mg/dL (8.5-10.1); Carbon Dioxide 17.2 meq/L (21.0-32.0); Magnesium 1.7 mg/dL (1.5-2.5); Phosphorus 3.2 mg/dL (2.5-4.9); Potassium 4.3 meq/L (3.5-5.1)
--- NOTE | 2017-11-20 08:41 | P.PNCC ---
Subjective Subjective Remarks/Hospital Course: This is a 52-year-old female with a very complex medical history who was admitted back in September 2017 for postoperative wound infection from her total knee arthroplasty. Her course has been complicated by multiple necrotizing soft tissue infections. She additionally has failure to thrive and severe acute protein calorie malnutrition for which she has been on total parenteral nutrition. She intermittently becomes agitated and pulls out her IV access. Today she was on the floor when she became worsening the febrile and altered. She pulled out her own PICC line overnight, and nursing staff was unable to reobtain IV access. Because she was off TPN she became quite hypoglycemic which was refractory to non-intravenous methods of glucose administration. Urgently a new PICC line was placed by interventional radiology and she was given IV dextrose. When her glucose improved, her mental status improved as well. She is transferred to the ICU for management of worsening recurrent sepsis, worsening wound infection, and hypoglycemia. When I evaluated the patient, she was more awake, nonfocal, moving all extremities. She endorses fatigue, but denies other symptoms. She specifically denies chest pain, shortness of breath, fever, chills, nausea, vomiting, abdominal pain. She does endorse diarrhea and has a rectal tube in place. She has a recent history of active C. difficile infection. Remainder of the review systems is negative unless otherwise stated. 11/12: Lying in bed no acute distress intermittently confused but follows commands, pleasant. WBC count stable at 11.7. On TPN hypoglycemia has resolved. Discussed with Dr. Schneider 11/13: Intubated and placed on mechanical ventilation yesterday evening for desaturation and lack of airway protection. Creatinine has increased to 1.5 potassium is 2.8 getting replaced. On light sedation patient does follow commands. Antibiotics have been broadened to Zyvox meropenem and Levaquin and micafungin. Continue p.o. vancomycin for C Diff 11/14: Patient intubated sedated with propofol. Wakes up follows some commands but did not tolerate CPAP due to tachypnea. WBC count worsening currently 15.1. Also worsening creatinine 1.8. Some evidence of worsening wound infection in the lower abdomen pelvic region. Lower abdominal and left thigh incisions with increasing drainage 11/15: Remains intubated, sedated, becoming more septic and hypothermic. WBC count is 15.7 creatinine is 1.9 meets criteria for severe C. difficile colitis. Infectious disease following, currently on p.o. vancomycin for C. difficile ID is adding Dificid to the regimen. If not clinically improving need CT of the abdomen pelvis. Worsening sepsis most likely from worsening C. difficile than wound infection 11/16: Continued persistent hypotension. Discussed with Surgical Service. Acts like continued septic course. No other major changes. Will require transfusion soon. Subjective 11/17: Low-grade temperatures overnight. Tube feeds currently at goal of 50 cc an hour with vital 1.5. Positive BM. Hemoglobin currently 8.4. 11/18: no real improvements or changes. still failing vent weaning. 11/19: Hypothermic, requiring warming blanket. Continued vent dependent respiratory failure. Continued metabolic derangements requiring fluid resuscitation. 11/20: Patient continues to have several liters of insensible losses per day via wound drainage and diarrhea. I started her on scheduled albumin overnight with no improvement in metabolic acidosis or base deficit. She continued to be hypothermic overnight. Objective Vital Signs / I&O: Vital Signs 11/19/17 09:00 11/19/17 09:30 11/19/17 10:00 Temperature 96.8 F L 96.4 F L 95.9 F L Pulse Rate 99 H 91 H 86 Respiratory Rate 16 16 16 Blood Pressure 102/56 L 104/57 L 109/56 L Pulse Oximetry 100 100 100 11/19/17 10:30 11/19/17 11:00 11/19/17 11:29 Temperature 95.7 F L 95.7 F L Pulse Rate 86 94 H Respiratory Rate 16 16 16 Blood Pressure 109/55 L 108/59 L Pulse Oximetry 100 100 11/19/17 11:30 11/19/17 12:00 11/19/17 12:10 Temperature 95.9 F L 95.9 F L Pulse Rate 92 H 96 H Respiratory Rate 16 16 16 Blood Pressure 108/56 L 110/55 L Pulse Oximetry 100 100 100 11/19/17 12:30 11/19/17 13:00 11/19/17 13:30 Temperature 95.9 F L 96.3 F L 96.8 F L Pulse Rate 96 H 98 H 102 H Respiratory Rate 16 16 16 Blood Pressure 111/59 L 111/58 L 110/55 L Pulse Oximetry 100 100 100 11/19/17 14:00 11/19/17 14:25 11/19/17 14:30 Temperature 97.3 F L 97.9 F Pulse Rate 103 H 114 H Respiratory Rate 16 16 16 Blood Pressure 107/55 L 121/59 L Pulse Oximetry 100 100 100 11/19/17 15:00 11/19/17 15:30 11/19/17 16:00 Temperature 98.4 F 99.0 F 99.7 F H Pulse Rate 116 H 116 H 116 H Respiratory Rate 16 16 18 Blood Pressure 124/59 L 117/56 L 115/58 L Pulse Oximetry 100 100 100 11/19/17 16:30 11/19/17 17:47 11/19/17 18:00 Temperature 99.7 F H Pulse Rate 111 H 109 H Respiratory Rate 23 16 Blood Pressure 106/57 L Pulse Oximetry 100 100 11/19/17 20:00 11/19/17 20:09 11/19/17 21:18 Temperature 96.4 F L Pulse Rate 107 H Respiratory Rate 16 17 16 Blood Pressure 115/66 Pulse Oximetry 100 100 11/19/17 22:00 11/19/17 23:26 11/20/17 00:00 Temperature 96.1 F L Pulse Rate 99 H 106 H Respiratory Rate 16 16 Blood Pressure 118/68 Pulse Oximetry 99 100 11/20/17 02:00 11/20/17 03:30 11/20/17 04:00 Temperature 98.6 F Pulse Rate 106 H 116 H Respiratory Rate 17 17 Blood Pressure 126/68 Pulse Oximetry 100 100 11/20/17 06:00 11/20/17 06:29 Temperature Pulse Rate 112 H Respiratory Rate 17 Blood Pressure Pulse Oximetry Intake & Output 11/19/17 11/20/17 11/20/17 18:59 06:59 18:59 Intake Total 1857 / 1857 2415 / 2415 Output Total 1600 / 1600 400 / 400 Balance 257 / 257 2014 Weight 114.6 kg Intake: IV 1050 / 1050 1600 / 1600 Diprivan 1000 mg/100 ml Inj 1, 300 / 300 400 / 400 000 mg In 100 ml @ 5 MCG/KG/MIN 3.261 mls/hr IV.CONT TITRATE PRN Rx#:[id number] Flexbumin 25% Inj 100 ML @ 60 300 / 300 mls/hr IV.SIG Q8H [facility] Rx#: [id number] Zyvox 600 mg Premix 300 ML @ 300 / 300 300 / 300 300 mls/hr IV.SIG Q12H [facility] Rx#: [id number] Merrem Inj 1,000 MG In NS Inj 100 / 100 100 / 100 100 ML @ 200 mls/hr IV.SIG Q12H [facility] Rx#:[id number] Mycamine Inj 100 MG In NS Inj 100 / 100 100 ML @ 100 mls/hr IV.SIG Q24H [facility] Rx#:[id number] fentaNYL 10 mcg/mL Premix Drip 250 / 250 500 / 500 2,500 mcg In 250 ml @ 50 MCG/HR 5 mls/hr IV.SIG TITRATE PRN Rx #:[id number] Tube Feeding 687 / 687 575 / 575 Water Bolus Amount 120 / 120 240 / 240 Output: Stool 1000 / 1000 400 / 400 Urine Amount (Catheter) 600 / 600 Indwelling Urethral Catheter 600 / 600 Other: Date of Last Bowel Movement 11/19/17 11/20/17 Result Diagrams: 11/20/17 05:30 11/20/17 05:30 Objective Remarks: GENERAL: Middle-aged female, intubated and sedated HEENT: NCAT, PERRL NECK: ETT and NGT in place. CHEST: Mechanical breath sounds bilaterally, diminished at bases bilaterally CARDIOVASCULAR: Regular rate and rhythm. ABDOMEN: Morbidly obese, soft, non-tender in all quadrants. Extensive wounds to lower midline abdomen, low transverse abdomen, upper thighs with staple closure MUSCULOSKELETAL: Pitting anasarca to all extremities. NEUROLOGICAL: GCS 10T ([id number]) on sedation, opens eyes to voice and makes eye contact, RASS 0. Assessment and Plan - Assessment and Plan Plan: Assessment: 52-year-old female with an extensive recent medical history including multiple wound infections and severe acute protein calorie malnutrition who presents with recurrent severe sepsis and wound infection. Active problems: Severe Sepsis Acute hypoxemic respiratory failure Metabolic encephalopathy Severe sepsis Severe C diff colitis Deep tissue wound infection lower abdomen and perineum Severe hypoglycemia-resolved Elevated BMI Leukocytosis Normocytic anemia Thrombocytopenia Depressive disorder NOS Hyperlipidemia Acute kidney injury creatinine currently 2.48 Plan: NEURO: Sedated with propofol and fentanyl gtt for pain control. Continue mirtazapine 15 mg at night, trazodone 100 mg at night, apiriprazone 30 mg daily and buspirone 15 mg 3 times daily. Daily sedation vacation. CARDIO: Patient now only tachycardic when stimulated or during sedation vacation Continue diltiazem 60 mg 3 times daily for hypertension RESP: Currently on bipap trial 12/21, ABG 7.26/35/161/15/-10.5 CXR shows ETT 4 cm above shaka (advance 2 cm by RT, now 26 cm at lip), otherwise stable F/E/N: Concentrated albumin for IV resuscitation- will continue again today to attempt to catch up with insensible losses. Tube feeds at goal Unable to place PEG or PEJ due to severe protein calorie malnutrition and high likelihood of surgical complications : Continued acute kidney injury, creatinine slowly trending down (2.8-->2.48), avoid nephrotoxic agents ID: Most recent cultures show no growth at 4 days, continuing on linezolid, merrem, micafungin, PO vanco, dificid Meets criteria for severe C. difficile, creat >1.5, WBC >15K Lower abdomen and perineal wound infections, general surgery and ID following HEME: Anemia and thrombocytopenia. Last transfusion of PRBCs on 11/17. If patient requires more volume above albumin today, will give a unit of PRBCs. If her platelets drop below 50K or she begins to have bleeding, will also give platelets. ENDO: Frequent glycemic checks, D50 for hypoglycemia Overall: I had conversations today with palliative care, infectious disease, family medicine, and general surgery. The patient continues to have multi- system organ dysfunction despite our best efforts. There are no additional antibiotic or surgical debridement options available for her wounds as she is already on maximally aggressive therapy. She has multiple comorbidities, and each intervention that we perform exacerbates her other active issues (C diff complicating wounds, antibiotics for wounds complicating C diff, albumin to keep up with insensible losses complicating respiratory status, poor nutrition complicating insensible losses, etc.). She has an overall very poor prognosis. I spoke with the patient's , Emile, who will contact their daughter and son and would like to set up a family meeting for tomorrow morning (11/21/17). I will let the teams know when we arrange a time. Famotidine for GI prophylaxis. SCDs for DVT prophylaxis. Counseling/ Coordination of Care: Total critical care time: 48 minutes. This includes examining the patient, gathering history from someone other than the patient (i.e., chart review), discussing the patient's care with other providers and arranging family meeting (ID, palliative care, general surgery, FP resident), managing the patient's blood pressure and ventilator settings, ordering and interpreting radiology studies, ordering and interpreting laboratory studies, managing the patient's pain and sedation requirements, re-evaluation at frequent intervals, and documentation. All critical care time is separate and exclusive of procedures, teaching, and patient/ family updates.
--- NOTE | 2017-11-20 09:57 | P.PNFP ---
Subjective Interval history: Patient seen and examined this morning. Pt started on albumin overnight. Was also hypothermic overnight as well. Pt still intubated and sedated. <NilsonSimon Iqbal - 11/20/17 09:57> Results - Labs Result diagrams: 11/20/17 05:30 11/20/17 05:30 <Schuyler Medina - 11/20/17 16:10> Abnormal lab results 11/19/17 11/20/17 11/20/17 Range/Units 16:24 05:29 05:30 WBC 12.0 H (4.0-11.0) th/mm3 RBC 2.57 L (4.00-5.30) mil/mm3 Hgb 7.6 L (11.6-15.3) gm/dL Hct 21.6 L (35.0-46.0) % RDW 18.2 H (11.6-17.2) % Plt Count 56 L (150-450) th/mm3 ABG pH 7.26 L* 7.26 L* (7.380-7.420) ABG pCO2 37 L 35 L (38-42) mmHg ABG pO2 140 H 161 H (61-120) mmHG ABG HCO3 16 L* 15 L* (22-26) mmol/L ABG O2 Content 9.8 L 11.4 L (12.0-20.0) Vol % ABG Base Excess -9.7 L -10.5 L (-2-2) mmol/L Hemoglobin 7.0 L* 8.2 L (12.0-16.0) G/DL Chloride (98-107) meq/L Carbon Dioxide (21.0-32.0) meq/L BUN (7-18) mg/dL Creatinine (0.50-1.00) mg/dL Estimated GFR (>89) mL/min Calcium (8.5-10.1) mg/dL 11/20/17 Range/Units 05:30 WBC (4.0-11.0) th/mm3 RBC (4.00-5.30) mil/mm3 Hgb (11.6-15.3) gm/dL Hct (35.0-46.0) % RDW (11.6-17.2) % Plt Count (150-450) th/mm3 ABG pH (7.380-7.420) ABG pCO2 (38-42) mmHg ABG pO2 (61-120) mmHG ABG HCO3 (22-26) mmol/L ABG O2 Content (12.0-20.0) Vol % ABG Base Excess (-2-2) mmol/L Hemoglobin (12.0-16.0) G/DL Chloride 108 H (98-107) meq/L Carbon Dioxide 17.2 L (21.0-32.0) meq/L BUN 57 H (7-18) mg/dL Creatinine 2.48 H (0.50-1.00) mg/dL Estimated GFR 25 L (>89) mL/min Calcium 7.6 L D (8.5-10.1) mg/dL Short CBC 11/20/17 Range/Units 05:30 WBC 12.0 H (4.0-11.0) th/mm3 Hgb 7.6 L (11.6-15.3) gm/dL Hct 21.6 L (35.0-46.0) % Plt Count 56 L (150-450) th/mm3 BMP 11/20/17 05:30 Sodium 137 Potassium 4.3 Chloride 108 H Carbon Dioxide 17.2 L BUN 57 H Creatinine 2.48 H Calcium 7.6 L D <Schuyler Medina - 11/20/17 16:10> Abnormal lab results 11/19/17 11/19/17 11/20/17 Range/Units 13:28 16:24 05:29 WBC (4.0-11.0) th/mm3 RBC (4.00-5.30) mil/mm3 Hgb (11.6-15.3) gm/dL Hct (35.0-46.0) % RDW (11.6-17.2) % Plt Count (150-450) th/mm3 ABG pH 7.27 L* 7.26 L* 7.26 L* (7.380-7.420) ABG pCO2 35 L 37 L 35 L (38-42) mmHg ABG pO2 160 H 140 H 161 H (61-120) mmHG ABG HCO3 16 L* 16 L* 15 L* (22-26) mmol/L ABG O2 Content 9.8 L 11.4 L (12.0-20.0) Vol % ABG Base Excess -10.0 L -9.7 L -10.5 L (-2-2) mmol/L Hemoglobin 7.0 L* 8.2 L (12.0-16.0) G/DL Chloride (98-107) meq/L Carbon Dioxide (21.0-32.0) meq/L BUN (7-18) mg/dL Creatinine (0.50-1.00) mg/dL Estimated GFR (>89) mL/min Calcium (8.5-10.1) mg/dL 11/20/17 11/20/17 Range/Units 05:30 05:30 WBC 12.0 H (4.0-11.0) th/mm3 RBC 2.57 L (4.00-5.30) mil/mm3 Hgb 7.6 L (11.6-15.3) gm/dL Hct 21.6 L (35.0-46.0) % RDW 18.2 H (11.6-17.2) % Plt Count 56 L (150-450) th/mm3 ABG pH (7.380-7.420) ABG pCO2 (38-42) mmHg ABG pO2 (61-120) mmHG ABG HCO3 (22-26) mmol/L ABG O2 Content (12.0-20.0) Vol % ABG Base Excess (-2-2) mmol/L Hemoglobin (12.0-16.0) G/DL Chloride 108 H (98-107) meq/L Carbon Dioxide 17.2 L (21.0-32.0) meq/L BUN 57 H (7-18) mg/dL Creatinine 2.48 H (0.50-1.00) mg/dL Estimated GFR 25 L (>89) mL/min Calcium 7.6 L D (8.5-10.1) mg/dL Short CBC 11/20/17 Range/Units 05:30 WBC 12.0 H (4.0-11.0) th/mm3 Hgb 7.6 L (11.6-15.3) gm/dL Hct 21.6 L (35.0-46.0) % Plt Count 56 L (150-450) th/mm3 BMP 11/20/17 05:30 Sodium 137 Potassium 4.3 Chloride 108 H Carbon Dioxide 17.2 L BUN 57 H Creatinine 2.48 H Calcium 7.6 L D <Simon Devine - 11/20/17 09:57> - Imaging Impressions Chest X-Ray 11/20/17 06:00 CONCLUSION: 1. Endotracheal tube in appropriate position with tip measuring 3.9 cm from the shaka. 2. Stable patchy airspace opacity at the left lung base. <EstuardoattmayraSchuyler - 11/20/17 16:10> Impressions Chest X-Ray 11/20/17 06:00 CONCLUSION: 1. Endotracheal tube in appropriate position with tip measuring 3.9 cm from the shaka. 2. Stable patchy airspace opacity at the left lung base. <Simon Devine - 11/20/17 09:57> Physical Exam Vital signs: Vital Signs 11/19/17 16:30 11/19/17 17:47 11/19/17 18:00 Temperature 99.7 F H Pulse Rate 111 H 109 H Respiratory Rate 23 16 Blood Pressure 106/57 L Pulse Oximetry 100 100 11/19/17 20:00 11/19/17 20:09 11/19/17 21:18 Temperature 96.4 F L Pulse Rate 107 H Respiratory Rate 16 17 16 Blood Pressure 115/66 Pulse Oximetry 100 100 11/19/17 22:00 11/19/17 23:26 11/20/17 00:00 Temperature 96.1 F L Pulse Rate 99 H 106 H Respiratory Rate 16 16 Blood Pressure 118/68 Pulse Oximetry 99 100 11/20/17 02:00 11/20/17 03:30 11/20/17 04:00 Temperature 98.6 F Pulse Rate 106 H 116 H Respiratory Rate 17 17 Blood Pressure 126/68 Pulse Oximetry 100 100 11/20/17 06:00 11/20/17 06:29 11/20/17 08:00 Temperature 97.3 F L Pulse Rate 112 H 88 Respiratory Rate 17 33 H Blood Pressure 108/63 Pulse Oximetry 100 11/20/17 08:30 11/20/17 08:41 11/20/17 09:00 Temperature 96.8 F L 96.4 F L Pulse Rate 87 93 H Respiratory Rate 22 18 22 Blood Pressure 110/63 118/67 Pulse Oximetry 100 100 100 11/20/17 09:30 11/20/17 10:00 11/20/17 10:30 Temperature 96.3 F L 95.9 F L 95.5 F L Pulse Rate 91 H 102 H 96 H Respiratory Rate 16 30 H 35 H Blood Pressure 121/67 130/70 126/66 Pulse Oximetry 100 100 100 11/20/17 11:00 11/20/17 11:30 11/20/17 12:00 Temperature 95.5 F L 95.9 F L 96.4 F L Pulse Rate 106 H 105 H 106 H Respiratory Rate 10 L 18 9 L Blood Pressure 124/67 106/60 85/53 L Pulse Oximetry 100 99 100 11/20/17 12:10 11/20/17 14:00 Temperature Pulse Rate 111 H Respiratory Rate 18 Blood Pressure Pulse Oximetry 100 Intake & Output 11/19/17 11/20/17 11/20/17 18:59 06:59 18:59 Intake Total 1857 / 1857 2415 / 2415 1160 / 1160 Output Total 1600 / 1600 400 / 400 Balance 257 / 257 2014 / 2014 1160 / 1160 Weight 114.6 kg Intake: IV 1050 / 1050 1600 / 1600 1160 / 1160 Diprivan 1000 mg/100 ml Inj 1, 300 / 300 400 / 400 310 / 310 000 mg In 100 ml @ 5 MCG/KG/MIN 3.261 mls/hr IV.CONT TITRATE PRN Rx#:[id number] Flexbumin 25% Inj 100 ML @ 60 300 / 300 100 / 100 mls/hr IV.SIG Q8H [facility] Rx#: [id number] Zyvox 600 mg Premix 300 ML @ 300 / 300 300 / 300 300 / 300 300 mls/hr IV.SIG Q12H [facility] Rx#: [id number] Merrem Inj 1,000 MG In NS Inj 100 / 100 100 / 100 100 / 100 100 ML @ 200 mls/hr IV.SIG Q12H [facility] Rx#:[id number] Mycamine Inj 100 MG In NS Inj 100 / 100 100 / 100 100 ML @ 100 mls/hr IV.SIG Q24H [facility] Rx#:[id number] fentaNYL 10 mcg/mL Premix Drip 250 / 250 500 / 500 250 / 250 2,500 mcg In 250 ml @ 50 MCG/HR 5 mls/hr IV.SIG TITRATE PRN Rx #:[id number] Tube Feeding 687 / 687 575 / 575 Water Bolus Amount 120 / 120 240 / 240 Output: Stool 1000 / 1000 400 / 400 Urine Amount (Catheter) 600 / 600 Indwelling Urethral Catheter 600 / 600 Other: Date of Last Bowel Movement 11/19/17 11/20/17 11/18/17 <Schuyler Medina - 11/20/17 16:10> Vital Signs 11/19/17 10:00 11/19/17 10:30 11/19/17 11:00 Temperature 95.9 F L 95.7 F L 95.7 F L Pulse Rate 86 86 94 H Respiratory Rate 16 16 16 Blood Pressure 109/56 L 109/55 L 108/59 L Pulse Oximetry 100 100 100 11/19/17 11:29 11/19/17 11:30 11/19/17 12:00 Temperature 95.9 F L 95.9 F L Pulse Rate 92 H 96 H Respiratory Rate 16 16 16 Blood Pressure 108/56 L 110/55 L Pulse Oximetry 100 100 11/19/17 12:10 11/19/17 12:30 11/19/17 13:00 Temperature 95.9 F L 96.3 F L Pulse Rate 96 H 98 H Respiratory Rate 16 16 16 Blood Pressure 111/59 L 111/58 L Pulse Oximetry 100 100 100 11/19/17 13:30 11/19/17 14:00 11/19/17 14:25 Temperature 96.8 F L 97.3 F L Pulse Rate 102 H 103 H Respiratory Rate 16 16 16 Blood Pressure 110/55 L 107/55 L Pulse Oximetry 100 100 100 11/19/17 14:30 11/19/17 15:00 11/19/17 15:30 Temperature 97.9 F 98.4 F 99.0 F Pulse Rate 114 H 116 H 116 H Respiratory Rate 16 16 16 Blood Pressure 121/59 L 124/59 L 117/56 L Pulse Oximetry 100 100 100 11/19/17 16:00 11/19/17 16:30 11/19/17 17:47 Temperature 99.7 F H 99.7 F H Pulse Rate 116 H 111 H Respiratory Rate 18 23 16 Blood Pressure 115/58 L 106/57 L Pulse Oximetry 100 100 100 11/19/17 18:00 11/19/17 20:00 11/19/17 20:09 Temperature 96.4 F L Pulse Rate 109 H 107 H Respiratory Rate 16 17 Blood Pressure 115/66 Pulse Oximetry 100 100 11/19/17 21:18 11/19/17 22:00 11/19/17 23:26 Temperature Pulse Rate 99 H Respiratory Rate 16 16 Blood Pressure Pulse Oximetry 99 11/20/17 00:00 11/20/17 02:00 11/20/17 03:30 Temperature 96.1 F L Pulse Rate 106 H 106 H Respiratory Rate 16 17 Blood Pressure 118/68 Pulse Oximetry 100 100 11/20/17 04:00 11/20/17 06:00 11/20/17 06:29 Temperature 98.6 F Pulse Rate 116 H 112 H Respiratory Rate 17 17 Blood Pressure 126/68 Pulse Oximetry 100 11/20/17 08:41 Temperature Pulse Rate Respiratory Rate 18 Blood Pressure Pulse Oximetry 100 Intake & Output 11/19/17 11/20/17 11/20/17 18:59 06:59 18:59 Intake Total 1857 / 1857 2415 / 2415 Output Total 1600 / 1600 400 / 400 Balance 257 / 257 2014 Weight 114.6 kg Intake: IV 1050 / 1050 1600 / 1600 Diprivan 1000 mg/100 ml Inj 1, 300 / 300 400 / 400 000 mg In 100 ml @ 5 MCG/KG/MIN 3.261 mls/hr IV.CONT TITRATE PRN Rx#:[id number] Flexbumin 25% Inj 100 ML @ 60 300 / 300 mls/hr IV.SIG Q8H [facility] Rx#: [id number] Zyvox 600 mg Premix 300 ML @ 300 / 300 300 / 300 300 mls/hr IV.SIG Q12H [facility] Rx#: [id number] Merrem Inj 1,000 MG In NS Inj 100 / 100 100 / 100 100 ML @ 200 mls/hr IV.SIG Q12H [facility] Rx#:[id number] Mycamine Inj 100 MG In NS Inj 100 / 100 100 ML @ 100 mls/hr IV.SIG Q24H [facility] Rx#:[id number] fentaNYL 10 mcg/mL Premix Drip 250 / 250 500 / 500 2,500 mcg In 250 ml @ 50 MCG/HR 5 mls/hr IV.SIG TITRATE PRN Rx #:[id number] Tube Feeding 687 / 687 575 / 575 Water Bolus Amount 120 / 120 240 / 240 Output: Stool 1000 / 1000 400 / 400 Urine Amount (Catheter) 600 / 600 Indwelling Urethral Catheter 600 / 600 Other: Date of Last Bowel Movement 11/19/17 11/20/17 <Simon Devine 11/20/17 09:57> Narrative: GENERAL: Morbidly obese -[place] female lying in bed intubated and sedated with soft restraints intact. HEENT: Atraumatic, normocephalic. ET tube in place. CARDIOVASCULAR: Tachycardic rate (baseline) and regular rhythm without obvious murmurs, gallops, or rubs. RESPIRATORY: Bilateral rhonchi throughout. Breath sounds difficult to auscultate due to body habitus and ventilator noise. No increased work of breathing. GASTROINTESTINAL: Abdomen diffuse, soft with soft bowel sounds. Rectal tube in place with liquid fecal material in reservoir. Hopper catheter in place with minimal urinary output in reservoir. MUSCULOSKELETAL: Bilateral upper extremity 2+ edema. Stable bilateral lower extremity 2+. Left knee effusion stable. SCDs in place. NEURO/PSYCH: Patient intubated and sedated. SKIN: Cool and dry. No rash. PICC line without surrounding erythema, warmth, or other signs of infection. ABD wounds: Transverse suprapubic wound stapled along with midline stapled incision. Currently dry bandages clean. <Simon Devine 11/20/17 09:57> - Urinary Catheter Management Female External Cath placed during this visit: no <Schuyler Medina 11/20/17 16:10> no <Simon Devine 11/20/17 09:57> Indwelling Urethral Catheter Cath placed during this visit: no <Schuyler Medina 11/20/17 16:10> yes, but has since been removed by the nurse <Simon Devine 11/20/17 09:57> Reason for continuing: Severe pressure ulcer/wound <Simon Devine 09:57> Insertion date: 10/09/17 <Simon Devine 11/20/17 09:57> Insertion time: 14:00 <Simno Devine 11/20/17 09:57> Removal date: 10/05/17 <Simon Devine 11/20/17 09:57> Removal time: 17:30 <Simon Devine 11/20/17 09:57> Assessment and Plan - Assessment (1) Respiratory failure Code(s): J96.90 - Respiratory failure, unspecified, unspecified whether with hypoxia or hypercapnia Status: Acute (2) Sepsis Code(s): A41.9 - Sepsis, unspecified organism Status: Acute (3) Open wound of abdominal wall Code(s): S31.109A - Unspecified open wound of abdominal wall, unspecified quadrant without penetration into peritoneal cavity, initial encounter Status : Acute (4) Aspiration into airway Code(s): T17.908A - Unspecified foreign body in respiratory tract, part unspecified causing other injury, initial encounter Status: Acute (5) C. difficile diarrhea Code(s): A04.72 - Enterocolitis due to Clostridium difficile, not specified as recurrent Status: Acute (6) Anemia Code(s): D64.9 - Anemia, unspecified Status: Resolved (7) Creatinine elevation Code(s): R79.89 - Other specified abnormal findings of blood chemistry Status : Acute (8) Thrombocytopenia Code(s): D69.6 - Thrombocytopenia, unspecified Status: Acute (9) Poor nutrition Code(s): E63.9 - Nutritional deficiency, unspecified Status: Acute (10) Schizophrenia Code(s): F20.9 - Schizophrenia, unspecified Status: Chronic (11) Altered mental status Code(s): R41.82 - Altered mental status, unspecified Status: Acute (12) Cellulitis of knee, left Code(s): L03.116 - Cellulitis of left lower limb Status: Acute (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 - Infection and inflammatory reaction due to unspecified internal joint prosthesis, initial encounter Status: Suspected (14) Hypertension Code(s): I10 - Essential (primary) hypertension Status: Acute (15) Tachycardia Code(s): R00.0 - Tachycardia, unspecified Status: Chronic (16) Nutrition, metabolism, and development symptoms Code(s): R63.8 - Other symptoms and signs concerning food and fluid intake Status: Acute <Schuyler Medina - 11/20/17 16:10> (1) Respiratory failure Code(s): J96.90 - Respiratory failure, unspecified, unspecified whether with hypoxia or hypercapnia Status: Acute Plan: Patient with possible aspiration episode on 11/12/17 with subsequent acute respiratory failure requiring intubation ABG 11/12/17:7.3/33/219/16 CXR 11/15/17: Mild bibasilar consolidation, improved on the right and slightly worse on the left. CXR continues to show stable disease -Patient intubated and sedated -Continues to fail weaning trials -Shipping/Receiving Manager consulted -Palliative care consulted (2) Sepsis Code(s): A41.9 - Sepsis, unspecified organism Status: Acute Plan: Patient meeting sepsis criteria with core body temperature of high/low temp, leukocytosis, and tachycardia. Suspected site of infection as her extensive abdominal wounds w/ C diff as well -Please see plan as below (3) Open wound of abdominal wall Code(s): S31.109A - Unspecified open wound of abdominal wall, unspecified quadrant without penetration into peritoneal cavity, initial encounter Status : Acute Plan: Large abdominal and pelvic wounds that appear not to be healing likely secondary to poor nutritional status -Wound Culture 09/27/17: Pseudomonas and Group B Step -Blood Cultures 10/24/17: Negative -Tissue Cultures 10/09/17: Negative -Abdominal wound culture 11/01/17: Group D Enterococcus, sensitive to Daptomycin ; Fungal species -Blood Culture 11/07/17 per TPN protocol: Negative to date -Blood Culture 11/12/17: NTD -PICC Line/Blood Cultures 11/15/17: no growth to date -Infectious disease consulted -General surgery consulted -Surgical debridement 10/09, wound VAC applied. -VAC changed 10/12 removed 10/15. -Debridement, irrigation, with suturing performed on 10/16. -I&D of abdomen and bilateral thighs, placement of Amniox with wound closure on 11/01/17 -Dressing changes per general surgery Medications: -Meropenem (11/13/17- ) -Micafungin (11/13/17- ) -Linezolid (11/13/17- ) -Dificid (11/15/17 - ) -PO Vanc (10/23/17 - ) Levaquin (11/10/17-11/15/17) -Daptomycin IV for suspected VRE per ID (11/03/17-11/13/17) -Cefepime IV (09/29/17-11/08/17) discontinued due to thrombocytopenia and elevated creatinine -Flagyl (11/10/17-11/13/17) -Diflucan 500mg daily (11/12/17) -Fentanyl added to assist with pain control (4) Aspiration into airway Code(s): T17.908A - Unspecified foreign body in respiratory tract, part unspecified causing other injury, initial encounter Status: Acute Plan: Patient with possible aspiration episode overnight 11/09/17 with another episode on 11/12/17. Patient now with respiratory failure as above Chest x-ray 11/09/12: Interval development of left lower lobe consolidation CXR 11/10/17: Left upper extremity PICC distal tip at the junction of the SVC and brachiocephalic vein. Bibasilar airspace opacity could represent atelectasis versus consolidation. CXR 11/12/17: Interim intubation. Endotracheal tip at the shaka. Small effusion and mild consolidation developing at the right base. Sputum cultures: Gram stain with rare gram positive cocci in pairs, many WBC, mucus; Culture with light growth of normal respiratory lisa at 24 hours. CXR 11/15/17: Mild bibasilar consolidation, improved on the right and slightly worse on the left. CXR 11/19/17: no significant change -Continues to show stable disease -Speech therapy consulted for swallow evaluation once extubated -ID consulted Medications: -Meropenem (11/13/17- ) -Micafungin (11/13/17- ) -Linezolid (11/13/17- ) Levaquin (11/10/17-11/15/17) -Flagyl (11/10/17-11/13/17) (5) C. difficile diarrhea Code(s): A04.72 - Enterocolitis due to Clostridium difficile, not specified as recurrent Status: Acute Plan: C diff cultures positive 10/19/17 Patient meeting criteria for severe C. difficile infection -Vancomycin PO 125 4 times daily (10/23/17- ) -Difficid 200mg BID (11/15/17- ) -Continue with probiotics. -Rectal tube in place (6) Anemia Code(s): D64.9 - Anemia, unspecified Status: Resolved Plan: -Patient found to have asymptomatic anemia H/H of 720.3 with MCV of 82 on -Rectal tube and Hopper catheter without any signs of acute bleeding -Dressings without obvious signs of bleeding -11 units total thus far during admission (11/16/17 most recent) -Consider transfusion if requiring more volume -Continue to monitor (7) Creatinine elevation Code(s): R79.89 - Other specified abnormal findings of blood chemistry Status : Acute Plan: Patient with acute creatinine elevation with starting TPN. -Unknown etiology at this time -Patient with decreasing urinary output -Hopper exchanged for possible obstruction; patient with continued decreased output -Electrolytes WNL -Continue to monitor creatinine, I/Os (8) Thrombocytopenia Code(s): D69.6 - Thrombocytopenia, unspecified Status: Acute Plan: Patient with decreasing platelet count -Etiology unknown -No signs of acute bruising/bleeding on limited skin exam due to body habitus -Continue to monitor -If <50 or signs of bleeding, continue platelet transfusion (9) Poor nutrition Code(s): E63.9 - Nutritional deficiency, unspecified Status: Acute Plan: -Patient with poor nutritional status during hospitalization -Severe concern of poor wound healing secondary to poor nutritional status -Medical Clerical Assistant consulted for calorie count and nutritional guidance, which has been limited due to NPO status prior to surgery, however patient continues to have poor intake -Multivitamin IV added with Hermes supplementation BID -Albumin levels continued to be decreased -Patient unable to receive 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 Briefly discussed with surgery about the possibility of a JG tube versus surgical placement of PEG tube, deferred as patient will likely not heal from surgical procedure due to nutritional status -NG tube placed with vital 1.5 tube feeds started per dietary TPN, Clinimix E 08/05 @ 65 mls/hr with 20% lipids 250 mls 2x/week (11/07/17-) -Started on Albumin IV overnight (11/19) (10) Schizophrenia Code(s): F20.9 - Schizophrenia, unspecified Status: Chronic Plan: -Psychiatry consulted upon admission -Patient with increased agitation and disorientation on 11/09/17; during episode patient pulled PICC line and attempted to pull out rectal/Hopper; patient required 1 mg Haldol for agitation during episode -Psychiatry consulted for further evaluation Medications: -Haldol 1-2 mg IV/IM every 8 hours as needed for aggressive behavior/agitation -Continue Abilify 30 mg for psychosis -Continue buspirone 30 mg, trazodone 100 mg and Cymbalta 60 mg -Started Mirtazapine 15mg QHS to assist with mood as well as appetite stimulant -Hold anticholinergics per Psych (11) Altered mental status Code(s): R41.82 - Altered mental status, unspecified Status: Acute Plan: Patient with altered mental status overnight 11/11/17 with possible aspiration due to new dysphagia. Patient's mental status continues to decline with a GCS score of 10. Likely related to hypoglycemia as patient did not have access and was not able to receive nutrition via PICC line and is n.p.o. for failed swallow study. -CT Head: Interval enlargement of the ventricular system of uncertain etiology. No clear evidence of an obstructing process. Otherwise stable evaluation without evidence of acute infarct, hemorrhage, mass, or edema. -MRI wo contrast: Negative for acute process -Speech therapy consulted Neurology consulted, appreciate recommendations -No active neurological issues -Shipping/Receiving Manager consulted, appreciate recommendations -Currently intubated and sedated Medications: -TPN -Haldol 1mg PRN for agitation/hallucinations -Lopressor 5mg IV PRN for HR >120 every 15min (12) Cellulitis of knee, left Code(s): L03.116 - Cellulitis of left lower limb Status: Acute Plan: -ID consulted, recommend Cefepime until 11/08/17 -Orthopedic surgery consulted, no further recommendations at this time Medications: -As above (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 She completed rehabilitation and was discharged home August 23. Patient was on approximately 2 weeks of po Keflex 500 mg. Per Ortho, examination of left knee shows no evidence of infection. (14) Hypertension Code(s): I10 - Essential (primary) hypertension Status: Acute Plan: History of hypertension Hold oral medications below -Continue to monitor -Clonidine PRN for BP > 180/100 (15) Tachycardia Code(s): R00.0 - Tachycardia, unspecified Status: Chronic Plan: -Patient with chronic history of tachycardia -EKG 09/27/17: Sinus tachycardia with rate of [address] or interval changes. (Per medical team read) Medications: -Lopressor 5mg IV PRN for HR >120 if unable to tolerate PO -Continue home diltiazem and carvedilol (16) Nutrition, metabolism, and development symptoms Code(s): R63.8 - Other symptoms and signs concerning food and fluid intake Status: Acute Plan: Fluids: NG tube feeds with Vital 1.5 @ 40 mls/hr goal, plan to wean TPN with SSI as needed Electrolytes: Replete as needed per ICU protocol Nutrition: -Medical Clerical Assistant consulted for nutritional guidance -NG tube placed and tube feeds started with vital 1.5 at 50 mils per hour (goal) -TPN Clinimix E 08/05 @ 65 mls/hr with 20% lipids 250 mls 2x/week (11/07/17- ); plan to wean as tolerated now that NG tube feeds have been initiated -Started on albumin IV PICC line placed in left upper extremity DVT prophylaxis: SCDs, Defer medical prophylaxis due to anemia <Simon Devine - 11/20/17 09:48> - Assessment and Plan 52 y/o female with multi-system organ dysfunction after multiple wound infections, and with severe sepsis and malnutrition. Pt is on maximum ID therapy and conflicting therapies leading to a very poor prognosis. Palliative care is consulted. Discussed with Dr. Mcleod, who is planning on setting up a family meeting to discuss goals of care and options moving forward. <Simon Devine - 11/20/17 09:57> - Attending Attestation Patient seen and examined. Discussed with Dr. Devine. Agree with assessment and plan as documented. <Schuyler Medina - 11/20/17 16:10> <Simon Devine J - Last Filed: 11/20/17 09:48> (1) Respiratory failure Qualifiers: Chronicity: acute (3) Open wound of abdominal wall Qualifiers: Encounter type: initial encounter Qualified Code(s): S31.109A - Unspecified open wound of abdominal wall, unspecified quadrant without penetration into peritoneal cavity, initial encounter (4) Aspiration into airway Qualifiers: Encounter type: initial encounter Qualified Code(s): T17.908A - Unspecified foreign body in respiratory tract, part unspecified causing other injury, initial encounter (6) Anemia Qualifiers: Anemia type: unspecified type Qualified Code(s): D64.9 - Anemia, unspecified (11) Altered mental status Qualifiers: Altered mental status type: unspecified Qualified Code(s): R41.82 - Altered mental status, unspecified (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 <Schuyler Medina - Last Filed: 11/20/17 16:10> (1) Respiratory failure Qualifiers: Chronicity: acute (3) Open wound of abdominal wall Qualifiers: Encounter type: initial encounter Qualified Code(s): S31.109A - Unspecified open wound of abdominal wall, unspecified quadrant without penetration into peritoneal cavity, initial encounter (4) Aspiration into airway Qualifiers: Encounter type: initial encounter Qualified Code(s): T17.908A - Unspecified foreign body in respiratory tract, part unspecified causing other injury, initial encounter (6) Anemia Qualifiers: Anemia type: unspecified type Qualified Code(s): D64.9 - Anemia, unspecified (11) Altered mental status Qualifiers: Altered mental status type: unspecified Qualified Code(s): R41.82 - Altered mental status, unspecified (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 <RadhadebraSimon Iqbal - Last Filed: 11/20/17 09:48> (1) Respiratory failure Qualifiers: Chronicity: acute (3) Open wound of abdominal wall Qualifiers: Encounter type: initial encounter Qualified Code(s): S31.109A - Unspecified open wound of abdominal wall, unspecified quadrant without penetration into peritoneal cavity, initial encounter (4) Aspiration into airway Qualifiers: Encounter type: initial encounter Qualified Code(s): T17.908A - Unspecified foreign body in respiratory tract, part unspecified causing other injury, initial encounter (6) Anemia Qualifiers: Anemia type: unspecified type Qualified Code(s): D64.9 - Anemia, unspecified (11) Altered mental status Qualifiers: Altered mental status type: unspecified Qualified Code(s): R41.82 - Altered mental status, unspecified (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 <Schuyler Medina - Last Filed: 11/20/17 16:10> (1) Respiratory failure Qualifiers: Chronicity: acute (3) Open wound of abdominal wall Qualifiers: Encounter type: initial encounter Qualified Code(s): S31.109A - Unspecified open wound of abdominal wall, unspecified quadrant without penetration into peritoneal cavity, initial encounter (4) Aspiration into airway Qualifiers: Encounter type: initial encounter Qualified Code(s): T17.908A - Unspecified foreign body in respiratory tract, part unspecified causing other injury, initial encounter (6) Anemia Qualifiers: Anemia type: unspecified type Qualified Code(s): D64.9 - Anemia, unspecified (11) Altered mental status Qualifiers: Altered mental status type: unspecified Qualified Code(s): R41.82 - Altered mental status, unspecified (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
[2017-11-20] MEDS: Folic Acid 1 MG Tablet PO SCH (10:03)
[2017-11-20] MEDS: Pantoprazole Inj 40 MG Vial IV.PUSH SCH (10:03)
[2017-11-20] MEDS: Heparin Central Flush 100 UNIT/ML 5 ML Vial IV.FLUSH SCH ×2 (10:03→10:04)
[2017-11-20] MEDS: Lactobacillus Acidophilus/L. Spores Tablet PO SCH ×2 (10:03→21:13)
[2017-11-20] MEDS: Chlorhexidine 0.12% Oral Kit 15 ML UDC OROPHARYNG SCH ×2 (10:04→21:12)
[2017-11-20] MEDS: Duloxetine 60 MG DR Capsule PO SCH (10:04)
[2017-11-20] MEDS: Hypromellose 0.3% Opth Gel 10 GM Bottle EACH EYE SCH ×2 (10:04→21:15)
--- NOTE | 2017-11-20 10:53 | P.PNID ---
Subjective Remarks: ID coverage. 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 Post op it appears she was discharged to a rehab. She was discharged from the rehab to home with her on August 23. Patient reports she lives at home with her who is on disability. Unsure of nature of disability at this time and his ability to take care of her. She was reportedly able to ambulate on her own initially followed by weakness and need for walker and then to a point where she did not want to get out of bed. It has been reported to others that she had some discharge at the left surgical site area and ortho surgeon prescribed oral keflex which reportedly lead to some improvement. She reportedly completed a week of antibiotic treatment with last day scheduled for today with some improvement in her knee pain. However her stated that she was starting to have more drainage from her knee just over the past day or so. He had pointed to several areas that had been draining pus from just above and just below the knee. He stated that a cup full of pus would drain at a time. Additionally the abdominal fold wounds appear to have been present for atleast 3 weeks now. With this background patient presented to the ED with complaints of worsening shortness of breath and mental status accompanied with symptoms of diarrhea (3 days, non-bloody) and decreased p.o. intake (5 days). She was also brought into the hospital due to infection of her knee that improved with Keflex p.o but now has returned with new additional drainage over the past few days. ID consulted for evaluation and Mment of Left knee prosthetic joint infection and neutropenia. Patient underwent incision and debridement of the inferior abdominal wall and proximal inner thighs on 10/12/2017. Since then she has had multiple surgeries done, last one done 11/01, closure of wounds Receiving IV antibiotics for left knee infection/C difficile. CT scan showed small joint effusion and subcutaneous edema of the fat at the left knee. Discussed with RN. Patient on the ventilator. Sedated.Non responsive. Noted to be hypothermic bear hugger is in place currently. Noted to have thick tenacious endotracheal secretions. Diarrhea ongoing via rectal tube. White blood cell count remain elevated. Antibiotics: Meropenem Dificid Zyvox Micafungin PO Vancomycin Lines: PICC Lines ok. Past Medical History: reviewed Allergies/Adverse Reactions: Allergies amoxicillin Allergy (Verified 09/27/17 17:54) Swelling Objective Vital Signs 11/19/17 11:00 11/19/17 11:29 11/19/17 11:30 Temperature 95.7 F L 95.9 F L Pulse Rate 94 H 92 H Respiratory Rate 16 16 16 Blood Pressure 108/59 L 108/56 L Pulse Oximetry 100 100 11/19/17 12:00 11/19/17 12:10 11/19/17 12:30 Temperature 95.9 F L 95.9 F L Pulse Rate 96 H 96 H Respiratory Rate 16 16 16 Blood Pressure 110/55 L 111/59 L Pulse Oximetry 100 100 100 11/19/17 13:00 11/19/17 13:30 11/19/17 14:00 Temperature 96.3 F L 96.8 F L 97.3 F L Pulse Rate 98 H 102 H 103 H Respiratory Rate 16 16 16 Blood Pressure 111/58 L 110/55 L 107/55 L Pulse Oximetry 100 100 100 11/19/17 14:25 11/19/17 14:30 11/19/17 15:00 Temperature 97.9 F 98.4 F Pulse Rate 114 H 116 H Respiratory Rate 16 16 16 Blood Pressure 121/59 L 124/59 L Pulse Oximetry 100 100 100 11/19/17 15:30 11/19/17 16:00 11/19/17 16:30 Temperature 99.0 F 99.7 F H 99.7 F H Pulse Rate 116 H 116 H 111 H Respiratory Rate 16 18 23 Blood Pressure 117/56 L 115/58 L 106/57 L Pulse Oximetry 100 100 100 11/19/17 17:47 11/19/17 18:00 11/19/17 20:00 Temperature 96.4 F L Pulse Rate 109 H 107 H Respiratory Rate 16 16 Blood Pressure 115/66 Pulse Oximetry 100 100 11/19/17 20:09 11/19/17 21:18 11/19/17 22:00 Temperature Pulse Rate 99 H Respiratory Rate 17 16 Blood Pressure Pulse Oximetry 100 11/19/17 23:26 11/20/17 00:00 11/20/17 02:00 Temperature 96.1 F L Pulse Rate 106 H 106 H Respiratory Rate 16 16 Blood Pressure 118/68 Pulse Oximetry 99 100 11/20/17 03:30 11/20/17 04:00 11/20/17 06:00 Temperature 98.6 F Pulse Rate 116 H 112 H Respiratory Rate 17 17 Blood Pressure 126/68 Pulse Oximetry 100 100 11/20/17 06:29 11/20/17 08:41 Temperature Pulse Rate Respiratory Rate 17 18 Blood Pressure Pulse Oximetry 100 Intake & Output 11/19/17 11/20/17 11/20/17 18:59 06:59 18:59 Intake Total 1857 / 1857 2415 / 2415 100 / 100 Output Total 1600 / 1600 400 / 400 Balance 257 / 257 2014 100 / 100 Weight 114.6 kg Intake: IV 1050 / 1050 1600 / 1600 100 / 100 Diprivan 1000 mg/100 ml Inj 1, 300 / 300 400 / 400 100 / 100 000 mg In 100 ml @ 5 MCG/KG/MIN 3.261 mls/hr IV.CONT TITRATE PRN Rx#:[id number] Flexbumin 25% Inj 100 ML @ 60 300 / 300 mls/hr IV.SIG Q8H [place] Rx#: [id number] Zyvox 600 mg Premix 300 ML @ 300 / 300 300 / 300 300 mls/hr IV.SIG Q12H [place] Rx#: [id number] Merrem Inj 1,000 MG In NS Inj 100 / 100 100 / 100 100 ML @ 200 mls/hr IV.SIG Q12H [facility] Rx#:[id number] Mycamine Inj 100 MG In NS Inj 100 / 100 100 ML @ 100 mls/hr IV.SIG Q24H [facility] Rx#:[id number] fentaNYL 10 mcg/mL Premix Drip 250 / 250 500 / 500 2,500 mcg In 250 ml @ 50 MCG/HR 5 mls/hr IV.SIG TITRATE PRN Rx #:[id number] Tube Feeding 687 / 687 575 / 575 Water Bolus Amount 120 / 120 240 / 240 Output: Stool 1000 / 1000 400 / 400 Urine Amount (Catheter) 600 / 600 Indwelling Urethral Catheter 600 / 600 Other: Date of Last Bowel Movement 11/19/17 11/20/17 11/15/17 13:10 Blood - Line Aerobic Blood Culture - Preliminary No growth in 4 days 11/15/17 13:10 Blood - Line Anaerobic Blood Culture - Preliminary No growth in 4 days 11/15/17 12:30 Blood - Peripheral Aerobic Blood Culture - Preliminary No growth in 4 days 11/15/17 12:30 Blood - Peripheral Anaerobic Blood Culture - Preliminary No growth in 4 days 11/15/17 12:35 Blood - Peripheral Aerobic Blood Culture - Preliminary No growth in 4 days 11/15/17 12:35 Blood - Peripheral Anaerobic Blood Culture - Preliminary No growth in 4 days 11/12/17 12:20 Blood - Peripheral Aerobic Blood Culture - Final No growth in 5 days 11/12/17 12:20 Blood - Peripheral Anaerobic Blood Culture - Final No growth in 5 days 11/12/17 12:25 Blood - Peripheral Aerobic Blood Culture - Final No growth in 5 days 11/12/17 12:25 Blood - Peripheral Anaerobic Blood Culture - Final No growth in 5 days Lab - Hematology Results 11/19/17 11/20/17 04:30 05:30 WBC 14.4 H 12.0 H RBC 2.83 L 2.57 L Hgb 7.9 L 7.6 L Hct 23.5 L 21.6 L MCV 82.9 84.2 MCH 28.0 29.6 MCHC 33.8 35.1 RDW 17.7 H 18.2 H Plt Count 75 L 56 L MPV 7.8 7.8 Lab - Chemistry Results 11/18/17 11/18/17 11/18/17 12:20 19:15 23:21 Sodium Potassium Chloride Carbon Dioxide Anion Gap BUN Creatinine Estimated GFR POC Glucose 91 93 103 Random Glucose Calcium Phosphorus Magnesium Prealbumin 11/19/17 11/20/17 11/20/17 04:30 00:15 05:30 Sodium 143 137 Potassium 4.7 4.3 Chloride 112 H 108 H Carbon Dioxide 17.8 L 17.2 L Anion Gap 13 12 BUN 60 H 57 H Creatinine 2.82 H 2.48 H Estimated GFR 21 L 25 L POC Glucose 100 Random Glucose 81 87 Calcium 8.5 7.6 L D Phosphorus 3.2 3.2 Magnesium 1.8 1.7 Prealbumin 10 L Imaging: ITS Impressions Tibia/Fibula X-Ray 09/27/17 00:00 CONCLUSION: No acute left leg abnormality is identified. Abdomen/Pelvis CT 09/27/17 08:10 CONCLUSION: 1. Mild hepatic steatosis. 2. Thickening of the colon secondary to lack of distention versus colitis. 3. Left lower lobe consolidation and/or atelectasis. There does appear to be a 1.4 cm cavitary area which makes consolidation likely. Chest CTA 09/27/17 08:22 CONCLUSION: 1. No pulmonary embolus. 2. Consolidation or atelectasis at the left lower lobe. Knee CT 10/18/17 00:00 CONCLUSION: 1. Small joint effusion. 2. Nonspecific subcutaneous edema in the subcutaneous soft tissues above and below the knee. 3. No significant changes compared to the prior exam. Ankle X-Ray 10/19/17 00:00 CONCLUSION: 1. No acute fracture or dislocation. Knee X-Ray 10/19/17 00:00 CONCLUSION: 1. Total knee prosthesis in place. 2. Moderate-sized knee joint effusion. Head CT 11/10/17 00:00 CONCLUSION: 1. Interval enlargement of the ventricular system of uncertain etiology. There is no clear evidence of an obstructing process. 2. Otherwise stable evaluation without evidence of acute infarct, hemorrhage, mass or edema. . Venous Doppler Study 11/10/17 00:00 CONCLUSION: 1. No venous thrombosis is identified within either lower extremity. 2. As described above, secondary to open wounds, the left external iliac, common femoral vein, and greater saphenous veins were not adequately evaluated. Head MRI 11/11/17 00:00 CONCLUSION: 1. Motion artifact is present throughout the scan. 2. Examination is diagnostic. 3. No evidence of acute infarct, hemorrhage, mass or edema. PICC Line Insertion 11/11/17 08:51 CONCLUSION: 1. Uncomplicated central venous Power PICC line placement. 2. The PICC line can be used immediately. Chest X-Ray 11/20/17 06:00 CONCLUSION: 1. Endotracheal tube in appropriate position with tip measuring 3.9 cm from the shaka. 2. Stable patchy airspace opacity at the left lung base. Physical Exam: GENERAL: On the vent, unresponsive. HEENT: No icterus. Orally intubated NECK: Supple without adenopathy. No swelling. LUNGS: Decreased breath sounds. HEART: Regular S1 and S2. ABDOMEN: Obese, soft. Nontender. Groin and abdominal area with sutures in place and dressing with some weeping of serous discharge noted.Tunneling noted in the center of the abdomen. There is a large open wound in medial upper L thigh, no purulence. Sacral area with abrasion noted. EXTREMITIES: Diffuse edema of the extremities. SKIN: No diffuse rash. NEUROLOGIC: Sedated. PSYCH: Unable to assess LINE: No evidence of infection Assessment and Plan - Plan IMPRESSION: Sepsis. Neutropenic sepsis on admission Abdominal fold cellulitis/skin breakdown. Post incision and debridement and closure of skin fold. General surgery following. s/p panniculectomy. Groin cellulitis, Mons pubis cellulitis/skin breakdown. Leucopenia, pancytopenia: ? MTX, ? Psych meds, ? Sepsis contributing. resolved. Left knee hardware in place. CT with fluid collection. Left knee infection - prior wound culture had Pseudomonas and group B beta strep. PSAE, VRE and Susy glabrata infection of the abdominal wound. Severe Cdiff - Positive PCR C. difficile. Acute resp failure, likely aspiration PNA Acute metabolic encephalopathy: sepsis. RECOMMENDATIONS: Continue Zyvox for MRSA and VRE coverage Continue Meropenem for broader GNR coverage till cultures finalized. Continue Micafungin IV for c.glabrata infection and concern for new line fungemia. Continue po Vanco for C diff. Continue Dificid for severe Cdiff as patient on concomitant antibiotics. Obtain new cultures. Blood and urine. Monitor progress D/W RN. Dr. Aldridge back tomorrow and will follow.
--- NOTE | 2017-11-20 14:10 | P.PNPAL ---
Reason for Visit Reason for visit: a. To assist with evaluation and management of symptoms including: dyspnea, pain, debility, anxiety b. To assist medical decision maker(s) with: better understanding of current medical conditions; weighing benefits/burdens of medical treatment options; making medical treatment decisions. Subjective Subjective/Interval History: Pt resting in bed, sedated on vent. Unresponsive. No sign agitation or pain. her abdominal and groin wounds are dressed. ON fentanyl gtt 25ml/hr. On 32 ml/hr propofol. CXR stable. per ID now in dificid for c diff. Also on meropenem, zyvox. Continued Labile temps. Hypotensive. Objective Vital Signs: Vital Signs 11/19/17 14:25 11/19/17 14:30 11/19/17 15:00 Temperature 97.9 F 98.4 F Pulse Rate 114 H 116 H Respiratory Rate 16 16 16 Blood Pressure 121/59 L 124/59 L Pulse Oximetry 100 100 100 11/19/17 15:30 11/19/17 16:00 11/19/17 16:30 Temperature 99.0 F 99.7 F H 99.7 F H Pulse Rate 116 H 116 H 111 H Respiratory Rate 16 18 23 Blood Pressure 117/56 L 115/58 L 106/57 L Pulse Oximetry 100 100 100 11/19/17 17:47 11/19/17 18:00 11/19/17 20:00 Temperature 96.4 F L Pulse Rate 109 H 107 H Respiratory Rate 16 16 Blood Pressure 115/66 Pulse Oximetry 100 100 11/19/17 20:09 11/19/17 21:18 11/19/17 22:00 Temperature Pulse Rate 99 H Respiratory Rate 17 16 Blood Pressure Pulse Oximetry 100 11/19/17 23:26 11/20/17 00:00 11/20/17 02:00 Temperature 96.1 F L Pulse Rate 106 H 106 H Respiratory Rate 16 16 Blood Pressure 118/68 Pulse Oximetry 99 100 11/20/17 03:30 11/20/17 04:00 11/20/17 06:00 Temperature 98.6 F Pulse Rate 116 H 112 H Respiratory Rate 17 17 Blood Pressure 126/68 Pulse Oximetry 100 100 11/20/17 06:29 11/20/17 08:00 11/20/17 08:30 Temperature 97.3 F L 96.8 F L Pulse Rate 88 87 Respiratory Rate 17 33 H 22 Blood Pressure 108/63 110/63 Pulse Oximetry 100 100 11/20/17 08:41 11/20/17 09:00 11/20/17 09:30 Temperature 96.4 F L 96.3 F L Pulse Rate 93 H 91 H Respiratory Rate 18 22 16 Blood Pressure 118/67 121/67 Pulse Oximetry 100 100 100 11/20/17 10:00 11/20/17 10:30 11/20/17 11:00 Temperature 95.9 F L 95.5 F L 95.5 F L Pulse Rate 102 H 96 H 106 H Respiratory Rate 30 H 35 H 10 L Blood Pressure 130/70 126/66 124/67 Pulse Oximetry 100 100 100 11/20/17 11:30 11/20/17 12:00 11/20/17 12:10 Temperature 95.9 F L 96.4 F L Pulse Rate 105 H 106 H Respiratory Rate 18 9 L 18 Blood Pressure 106/60 85/53 L Pulse Oximetry 99 100 100 Intake & Output 11/19/17 11/20/17 11/20/17 18:59 06:59 18:59 Intake Total 1857 / 1857 2415 / 2415 810 / 810 Output Total 1600 / 1600 400 / 400 Balance 257 / 257 2014 810 / 810 Weight 114.6 kg Intake: IV 1050 / 1050 1600 / 1600 810 / 810 Diprivan 1000 mg/100 ml Inj 1, 300 / 300 400 / 400 210 / 210 000 mg In 100 ml @ 5 MCG/KG/MIN 3.261 mls/hr IV.CONT TITRATE PRN Rx#:[id number] Flexbumin 25% Inj 100 ML @ 60 300 / 300 100 / 100 mls/hr IV.SIG Q8H [place] Rx#: [id number] Zyvox 600 mg Premix 300 ML @ 300 / 300 300 / 300 300 / 300 300 mls/hr IV.SIG Q12H [place] Rx#: [id number] Merrem Inj 1,000 MG In NS Inj 100 / 100 100 / 100 100 / 100 100 ML @ 200 mls/hr IV.SIG Q12H [place] Rx#:[id number] Mycamine Inj 100 MG In NS Inj 100 / 100 100 / 100 100 ML @ 100 mls/hr IV.SIG Q24H [place] Rx#:[id number] fentaNYL 10 mcg/mL Premix Drip 250 / 250 500 / 500 2,500 mcg In 250 ml @ 50 MCG/HR 5 mls/hr IV.SIG TITRATE PRN Rx #:[id number] Tube Feeding 687 / 687 575 / 575 Water Bolus Amount 120 / 120 240 / 240 Output: Stool 1000 / 1000 400 / 400 Urine Amount (Catheter) 600 / 600 Indwelling Urethral Catheter 600 / 600 Other: Date of Last Bowel Movement 11/19/17 11/20/17 11/18/17 Physical Exam: TUBES/LINES/DRAINS: rectal tube with liquid stool, herrera, PIV OETT SKIN: No jaundice, rashes, or lesions. No wounds seen anteriorly. HEAD: Atraumatic. Normocephalic. EYES:pupils constricted, PERRL. No scleral icterus. No injection or drainage. Fundi not examined. ENT: Nose without bleeding or purulent drainage. CARDIOVASCULAR: RRR without murmurs, gallops, or rubs. No JVD. Peripheral pulses symmetric. RESPIRATORY/CHEST: Symmetric, unlabored respirations. no adventitious lung sounds auscultated GASTROINTESTINAL: Abdomen obese, BS hypoactive. wounds bandaged, some dressings moist MUSCULOSKELETAL: generalized edema. +LUE wound antecubital region. no clubbing or cyanosis NEUROLOGICAL: sedated on vent Diagnostic Tests Laboratory: Laboratory Results - last 72 hr 11/17/17 11/17/17 11/17/17 05:45 14:20 14:20 WBC RBC Hgb Hct MCV MCH MCHC RDW Plt Count MPV Prelim Diff (Auto) Neut % (Auto) Lymph % (Auto) Mcminn % (Auto) Eos % (Auto) Baso % (Auto) Neut # (Auto) Lymph # (Auto) Mcminn # (Auto) Eos # (Auto) Baso # (Auto) WBC Differential Seg Neuts % (Manual) Band Neuts % (Manual) Lymphocytes % (Manual) Monocytes % (Manual) Abs Neuts (Manual) Differential Comment Toxic Granulation Platelet Estimate Platelet Morphology Target Cells Puncture Site Patient Temperature O2 Saturation ABG pH ABG pCO2 ABG pO2 ABG HCO3 ABG O2 Content ABG Base Excess ABG Methemoglobin Kirk Test Hemoglobin Carboxyhemoglobin O2 Delivery Device Vent Setting Inspired O2 Critical Value Sodium Potassium Chloride Carbon Dioxide Anion Gap BUN Creatinine Estimated GFR POC Glucose Random Glucose Calcium Phosphorus Magnesium Total Bilirubin AST ALT Alkaline Phosphatase Total Protein Albumin Prealbumin Beta HCG, Quant Less than 1 Urine Eosinophils None seen Ur Random Creatinine 90 Ur Random Sodium 11/17/17 11/17/17 11/17/17 14:20 17:36 23:41 WBC RBC Hgb Hct MCV MCH MCHC RDW Plt Count MPV Prelim Diff (Auto) Neut % (Auto) Lymph % (Auto) Mcminn % (Auto) Eos % (Auto) Baso % (Auto) Neut # (Auto) Lymph # (Auto) Mcminn # (Auto) Eos # (Auto) Baso # (Auto) WBC Differential Seg Neuts % (Manual) Band Neuts % (Manual) Lymphocytes % (Manual) Monocytes % (Manual) Abs Neuts (Manual) Differential Comment Toxic Granulation Platelet Estimate Platelet Morphology Target Cells Puncture Site Patient Temperature O2 Saturation ABG pH ABG pCO2 ABG pO2 ABG HCO3 ABG O2 Content ABG Base Excess ABG Methemoglobin Kirk Test Hemoglobin Carboxyhemoglobin O2 Delivery Device Vent Setting Inspired O2 Critical Value Sodium Potassium Chloride Carbon Dioxide Anion Gap BUN Creatinine Estimated GFR POC Glucose 106 114 H Random Glucose Calcium Phosphorus Magnesium Total Bilirubin AST ALT Alkaline Phosphatase Total Protein Albumin Prealbumin Beta HCG, Quant Urine Eosinophils Ur Random Creatinine Ur Random Sodium 11 11/18/17 11/18/17 11/18/17 04:00 04:00 12:20 WBC 15.2 H RBC 2.80 L Hgb 7.9 L Hct 23.1 L MCV 82.6 MCH 28.1 MCHC 34.0 RDW 17.3 H Plt Count 73 L MPV 7.3 Prelim Diff (Auto) Slide review pending Neut % (Auto) 78.6 H Lymph % (Auto) 15.1 Mcminn % (Auto) 4.2 Eos % (Auto) 1.8 Baso % (Auto) 0.3 Neut # (Auto) 12.0 H Lymph # (Auto) 2.3 Mcminn # (Auto) 0.6 Eos # (Auto) 0.3 Baso # (Auto) 0.0 WBC Differential Manual diff final Seg Neuts % (Manual) 49 Band Neuts % (Manual) 38 H Lymphocytes % (Manual) 11 Monocytes % (Manual) 2 Abs Neuts (Manual) 13.2 H Differential Comment . Toxic Granulation 2+ H Platelet Estimate Low L Platelet Morphology Normal Target Cells 1+ H Puncture Site Patient Temperature O2 Saturation ABG pH ABG pCO2 ABG pO2 ABG HCO3 ABG O2 Content ABG Base Excess ABG Methemoglobin Kirk Test Hemoglobin Carboxyhemoglobin O2 Delivery Device Vent Setting Inspired O2 Critical Value Sodium 141 Potassium 4.5 Chloride 110 H Carbon Dioxide 18.4 L Anion Gap 13 BUN 56 H Creatinine 2.82 H Estimated GFR 21 L POC Glucose 91 Random Glucose 66 L Calcium 8.2 L Phosphorus 2.5 Magnesium 1.7 Total Bilirubin 0.3 AST 19 ALT 12 Alkaline Phosphatase 141 H Total Protein 4.6 L Albumin 0.8 L Prealbumin Beta HCG, Quant Urine Eosinophils Ur Random Creatinine Ur Random Sodium 11/18/17 11/18/17 11/19/17 19:15 23:21 04:30 WBC 14.4 H RBC 2.83 L Hgb 7.9 L Hct 23.5 L MCV 82.9 MCH 28.0 MCHC 33.8 RDW 17.7 H Plt Count 75 L MPV 7.8 Prelim Diff (Auto) Neut % (Auto) Lymph % (Auto) Mcminn % (Auto) Eos % (Auto) Baso % (Auto) Neut # (Auto) Lymph # (Auto) Mcminn # (Auto) Eos # (Auto) Baso # (Auto) WBC Differential Seg Neuts % (Manual) Band Neuts % (Manual) Lymphocytes % (Manual) Monocytes % (Manual) Abs Neuts (Manual) Differential Comment Toxic Granulation Platelet Estimate Platelet Morphology Target Cells Puncture Site Patient Temperature O2 Saturation ABG pH ABG pCO2 ABG pO2 ABG HCO3 ABG O2 Content ABG Base Excess ABG Methemoglobin Kirk Test Hemoglobin Carboxyhemoglobin O2 Delivery Device Vent Setting Inspired O2 Critical Value Sodium Potassium Chloride Carbon Dioxide Anion Gap BUN Creatinine Estimated GFR POC Glucose 93 103 Random Glucose Calcium Phosphorus Magnesium Total Bilirubin AST ALT Alkaline Phosphatase Total Protein Albumin Prealbumin Beta HCG, Quant Urine Eosinophils Ur Random Creatinine Ur Random Sodium 11/19/17 11/19/17 11/19/17 04:30 04:52 13:28 WBC RBC Hgb Hct MCV MCH MCHC RDW Plt Count MPV Prelim Diff (Auto) Neut % (Auto) Lymph % (Auto) Mcminn % (Auto) Eos % (Auto) Baso % (Auto) Neut # (Auto) Lymph # (Auto) Mcminn # (Auto) Eos # (Auto) Baso # (Auto) WBC Differential Seg Neuts % (Manual) Band Neuts % (Manual) Lymphocytes % (Manual) Monocytes % (Manual) Abs Neuts (Manual) Differential Comment Toxic Granulation Platelet Estimate Platelet Morphology Target Cells Puncture Site Right radial Right radial Patient Temperature 98.6 98.6 O2 Saturation 96 96 ABG pH 7.27 L* 7.27 L* ABG pCO2 34 L 35 L ABG pO2 140 H 160 H ABG HCO3 15 L* 16 L* ABG O2 Content 15.0 16.6 ABG Base Excess -10.2 L -10.0 L ABG Methemoglobin 1.9 1.6 Kirk Test Present + Hemoglobin 11.0 L 12.0 Carboxyhemoglobin 0.7 0.7 O2 Delivery Device Ventilator Ventilator Vent Setting Prvc / ac / See comments Inspired O2 35 35 Critical Value Yes Yes Sodium 143 Potassium 4.7 Chloride 112 H Carbon Dioxide 17.8 L Anion Gap 13 BUN 60 H Creatinine 2.82 H Estimated GFR 21 L POC Glucose Random Glucose 81 Calcium 8.5 Phosphorus 3.2 Magnesium 1.8 Total Bilirubin AST ALT Alkaline Phosphatase Total Protein Albumin Prealbumin 10 L Beta HCG, Quant Urine Eosinophils Ur Random Creatinine Ur Random Sodium 11/19/17 11/20/17 11/20/17 16:24 00:15 05:29 WBC RBC Hgb Hct MCV MCH MCHC RDW Plt Count MPV Prelim Diff (Auto) Neut % (Auto) Lymph % (Auto) Mcminn % (Auto) Eos % (Auto) Baso % (Auto) Neut # (Auto) Lymph # (Auto) Mcminn # (Auto) Eos # (Auto) Baso # (Auto) WBC Differential Seg Neuts % (Manual) Band Neuts % (Manual) Lymphocytes % (Manual) Monocytes % (Manual) Abs Neuts (Manual) Differential Comment Toxic Granulation Platelet Estimate Platelet Morphology Target Cells Puncture Site Right radial Right radial Patient Temperature 98.6 98.6 O2 Saturation 95 96 ABG pH 7.26 L* 7.26 L* ABG pCO2 37 L 35 L ABG pO2 140 H 161 H ABG HCO3 16 L* 15 L* ABG O2 Content 9.8 L 11.4 L ABG Base Excess -9.7 L -10.5 L ABG Methemoglobin 2.0 1.8 Kirk Test + Present Hemoglobin 7.0 L* 8.2 L Carboxyhemoglobin 1.0 0.7 O2 Delivery Device Ventilator Ventilator Vent Setting See comments Prvc/ ac Inspired O2 35 35 Critical Value Yes Yes Sodium Potassium Chloride Carbon Dioxide Anion Gap BUN Creatinine Estimated GFR POC Glucose 100 Random Glucose Calcium Phosphorus Magnesium Total Bilirubin AST ALT Alkaline Phosphatase Total Protein Albumin Prealbumin Beta HCG, Quant Urine Eosinophils Ur Random Creatinine Ur Random Sodium 11/20/17 11/20/17 05:30 05:30 WBC 12.0 H RBC 2.57 L Hgb 7.6 L Hct 21.6 L MCV 84.2 MCH 29.6 MCHC 35.1 RDW 18.2 H Plt Count 56 L MPV 7.8 Prelim Diff (Auto) Neut % (Auto) Lymph % (Auto) Mcminn % (Auto) Eos % (Auto) Baso % (Auto) Neut # (Auto) Lymph # (Auto) Mcminn # (Auto) Eos # (Auto) Baso # (Auto) WBC Differential Seg Neuts % (Manual) Band Neuts % (Manual) Lymphocytes % (Manual) Monocytes % (Manual) Abs Neuts (Manual) Differential Comment Toxic Granulation Platelet Estimate Platelet Morphology Target Cells Puncture Site Patient Temperature O2 Saturation ABG pH ABG pCO2 ABG pO2 ABG HCO3 ABG O2 Content ABG Base Excess ABG Methemoglobin Kirk Test Hemoglobin Carboxyhemoglobin O2 Delivery Device Vent Setting Inspired O2 Critical Value Sodium 137 Potassium 4.3 Chloride 108 H Carbon Dioxide 17.2 L Anion Gap 12 BUN 57 H Creatinine 2.48 H Estimated GFR 25 L POC Glucose Random Glucose 87 Calcium 7.6 L D Phosphorus 3.2 Magnesium 1.7 Total Bilirubin AST ALT Alkaline Phosphatase Total Protein Albumin Prealbumin Beta HCG, Quant Urine Eosinophils Ur Random Creatinine Ur Random Sodium Result Diagrams: 11/20/17 05:30 11/20/17 05:30 Microbiology: Microbiology 10/09/17 15:49 Acid Fast Bacilli Smear - Final Tissue - Abdominal No acid fast bacilli seen Mycobacterial Culture - Final No growth in 6 weeks 11/15/17 13:10 Aerobic Blood Culture - Final Blood - Line No growth in 5 days Anaerobic Blood Culture - Final No growth in 5 days 11/15/17 12:30 Aerobic Blood Culture - Final Blood - Peripheral No growth in 5 days Anaerobic Blood Culture - Final No growth in 5 days 11/15/17 12:35 Aerobic Blood Culture - Final Blood - Peripheral No growth in 5 days Anaerobic Blood Culture - Final No growth in 5 days 11/12/17 12:20 Aerobic Blood Culture - Final Blood - Peripheral No growth in 5 days Anaerobic Blood Culture - Final No growth in 5 days 11/12/17 12:25 Aerobic Blood Culture - Final Blood - Peripheral No growth in 5 days Anaerobic Blood Culture - Final No growth in 5 days Procedures: 10/09 underwent I&D of abdominal wall and bilateral thighs, wound VAC placement 10/12 incision and drainage with debridement abdominal wall and bilateral lower thighs, wound VAC change 10/15 wound VAC change and closure of abdominal wall 11/01 I&D abdomen, bilateral thighs 11/12 intubated Assessment and Plan - Disease Oriented Problem List (1) Pneumonia (2) Cellulitis of knee, left (3) Prosthetic joint infection (4) Nutrition, metabolism, and development symptoms (5) Diarrhea (6) Schizophrenia (7) Hypertension (8) Fungal infection of skin of abdomen Pertinent Non-Medical Issues: Psychosocial: Pt is , has 2 children. She is unemployed. Originally from [place], [place], has been in [place] for nearly 40y. Has been 34 years. Spiritual: Jewish. Used to go to pentecostalism but not as much in recent past. Desires pastoral care. Legal: Pt not capacitated to make medical decisions. Per [place] statutes medical decision making falls to her as proxy. Ethical issues impacting care:none Important Contacts: Emile Mcclain [phone] Emile Mcclain [facility] [phone] Prognosis: This is a 52-year-old morbidly obese lady with history of mental illness, rheumatoid arthritis who presented 09/27 with shortness of breath, diarrhea, abdominal pain, change in mental status and was found to have multiple infected wounds in her abdomen, groin, and left knee. She is recently status post left knee replacement in July of this year. She has had multiple I&D's of her abdominal wound, fell causing dehiscence of those wounds and her left knee wound , was on TPN, has been having hypoglycemia, now [place] [facility] [place] Given her morbid obesity, multiple co morbidities, worsening wound infections, poor nutrition status, her prognosis is poor. Code Status: Full Code Plan: - LEGAL DECISON MAKER -patient is not capacitated to make medical decisions. Per [place] statutes medical decision making would fall to her as proxy - CODE STATUS-full code - GOALS - Goals are aggressive. Previously "wants everything done." Explained that her prognosis was poor and she could from her numerous infections and sepsis. feels changing code status "would kill her." 1530 's mother called me. She requested update and said pt's has little understanding and insight and she wanted to try to explain it to him. She verbalized understanding and seems to have better insight, "my of sepsis." SHe did not think pt 's & family would ever agree to compassionate withdrawal. - SYMPTOMS - * pain - acute and chronic, multifactorial. Has hx RA, s/p knee repalcement 2017, now s/p multiple I&D procedures for mult infected wounds. now sedated on vent, worsening abd wounds, dehiscence. on fentanyl gtt 25ml/hr no further recs at this time * debility - hx RA, morbidly obese, now with prolonged hospital stay. had increasing need for assistance at home ambulating and performing ADLs. Pain, persistent infections will be barrier to any aggressive rehab, she has already been bedbound for over a month and deconditioning. * SOB - originally presented with SOB. multifactorial. morbidly obese, at risk for OHS. now intubated on vent. stable CXR. FiO2 35%. has been hypotensive. BP today at noon was 85/53. * agitation/anxiety - acute and chronic. hx bipolar, anxiety. Takes duloxetine , mirtazipine, buspirone at home, trazodone to sleep. propofol increased f to 32 ml/hr. additionally has has PRn haldol here. Psych following, poss delerium. meds per psych - d/w [facility] meeting with family 11/21 @ 1300 - Palliative care will continue to follow during hospital course as condition evolves, to assist patient/decision-maker with understanding of medical conditions, weighing benefits/burdens of treatment options, for clarification of goals of treatment. Additionally will assist with any symptoms of palliative concern Attestation Attestation: To help prompt me to consider important information that might be impacting today's encounter and assessment, information from prior notes written by myself or my colleagues may have been "brought forward" into today's note. My signature on this note, however, is an attestation that I personally performed the exam, history, and/or decision-making noted today, and, unless otherwise indicated, the interactions with patient, family, and staff as well as the review of records all occurred today. I also attest that the listed assessment and stated plan reflect my best clinical judgment today based on the combination of historical information, prior notes, and today's exam/ interactions. When time spent is documented, it refers only to time spent today by the signer, or if indicated, combined time spent today by collaborating physician/nurse practitioner.
[2017-11-20] MEDS: Mirtazapine 15 MG Tablet PO SCH (21:13)
[2017-11-20] MEDS: traZODone 100 MG Tablet PO SCH (21:13)
[2017-11-21] MEDS: Insulin NovoLOG Aspart Correctional Sugar Inj SQ SCH ×4 (00:58→17:38)
[2017-11-21] MEDS: Albumin Human 25% Inj 100 ML IV.SIG SCH ×3 (00:58→17:35)
[2017-11-21] MEDS: Oral Hygiene Kit OROPHARYNG SCH ×4 (00:58→15:31)
[2017-11-21] MEDS: Propofol 1000 mg/100 ml Inj 1,000 MG/100 ML BOTTLE IV.CONT PRN ×6 (00:59→17:35)
[2017-11-21] MEDS: fentaNYL 10 mcg/mL Premix Drip 2,500 MCG/250 ML BAG IV.SIG PRN ×3 (01:00→20:11)
[2017-11-21] MEDS: Metoprolol Inj 5 MG/5 ML Vial IV.PUSH PRN ×2 (01:26→21:35)
[2017-11-21 05:16] LABS: ABG Base Excess -10.3 mmol/L (-2-2); ABG PCO2 34 mmHg (38-42); ABG PO2 66 mmHG (61-120)
[2017-11-21 05:44] LABS: Mean Corpuscular HGB Conc 32.8 % (32.0-36.0); Mean Corpuscular Hemoglobin 27.9 pg (27.0-34.0); Mean Corpuscular Volume 85.1 fL (80.0-100.0); Mean Platelet Volume 8.4 fL (7.0-11.0); Platelet Count 55 th/mm3 (150-450); Red Blood Count 2.28 mil/mm3 (4.00-5.30); Red Cell Distribution Width 17.5 % (11.6-17.2); White Blood Count 11.9 th/mm3 (4.0-11.0)
[2017-11-21 06:04] LABS: Hematocrit 19.4 % (35.0-46.0); Hemoglobin 6.4 gm/dL (11.6-15.3)
[2017-11-21 06:16] LABS: Calcium 8.4 mg/dL (8.5-10.1); Carbon Dioxide 17.2 meq/L (21.0-32.0); Magnesium 1.8 mg/dL (1.5-2.5); Phosphorus 3.9 mg/dL (2.5-4.9); Potassium 4.3 meq/L (3.5-5.1)
--- NOTE | 2017-11-21 07:54 | P.PNCC ---
Subjective Subjective Remarks/Hospital Course: This is a 52-year-old female with a very complex medical history who was admitted back in September 2017 for postoperative wound infection from her total knee arthroplasty. Her course has been complicated by multiple necrotizing soft tissue infections. She additionally has failure to thrive and severe acute protein calorie malnutrition for which she has been on total parenteral nutrition. She intermittently becomes agitated and pulls out her IV access. Today she was on the floor when she became worsening the febrile and altered. She pulled out her own PICC line overnight, and nursing staff was unable to reobtain IV access. Because she was off TPN she became quite hypoglycemic which was refractory to non-intravenous methods of glucose administration. Urgently a new PICC line was placed by interventional radiology and she was given IV dextrose. When her glucose improved, her mental status improved as well. She is transferred to the ICU for management of worsening recurrent sepsis, worsening wound infection, and hypoglycemia. When I evaluated the patient, she was more awake, nonfocal, moving all extremities. She endorses fatigue, but denies other symptoms. She specifically denies chest pain, shortness of breath, fever, chills, nausea, vomiting, abdominal pain. She does endorse diarrhea and has a rectal tube in place. She has a recent history of active C. difficile infection. Remainder of the review systems is negative unless otherwise stated. 11/12: Lying in bed no acute distress intermittently confused but follows commands, pleasant. WBC count stable at 11.7. On TPN hypoglycemia has resolved. Discussed with Dr. Schneider 11/13: Intubated and placed on mechanical ventilation yesterday evening for desaturation and lack of airway protection. Creatinine has increased to 1.5 potassium is 2.8 getting replaced. On light sedation patient does follow commands. Antibiotics have been broadened to Zyvox meropenem and Levaquin and micafungin. Continue p.o. vancomycin for C Diff 11/14: Patient intubated sedated with propofol. Wakes up follows some commands but did not tolerate CPAP due to tachypnea. WBC count worsening currently 15.1. Also worsening creatinine 1.8. Some evidence of worsening wound infection in the lower abdomen pelvic region. Lower abdominal and left thigh incisions with increasing drainage 11/15: Remains intubated, sedated, becoming more septic and hypothermic. WBC count is 15.7 creatinine is 1.9 meets criteria for severe C. difficile colitis. Infectious disease following, currently on p.o. vancomycin for C. difficile ID is adding Dificid to the regimen. If not clinically improving need CT of the abdomen pelvis. Worsening sepsis most likely from worsening C. difficile than wound infection 11/16: Continued persistent hypotension. Discussed with Surgical Service. Acts like continued septic course. No other major changes. Will require transfusion soon. Subjective 11/17: Low-grade temperatures overnight. Tube feeds currently at goal of 50 cc an hour with vital 1.5. Positive BM. Hemoglobin currently 8.4. 11/18: no real improvements or changes. still failing vent weaning. 11/19: Hypothermic, requiring warming blanket. Continued vent dependent respiratory failure. Continued metabolic derangements requiring fluid resuscitation. 11/20: Patient continues to have several liters of insensible losses per day via wound drainage and diarrhea. I started her on scheduled albumin overnight with no improvement in metabolic acidosis or base deficit. She continued to be hypothermic overnight. 11/21: Continued metabolic acidosis/ base deficitemia. Hg 6.5 this morning with no obvious source of bleeding. Family meeting today at 1 PM to discuss the patient's current status, prognosis, and to discuss goals of care. Objective Vital Signs / I&O: Vital Signs 11/20/17 08:00 11/20/17 08:30 11/20/17 08:41 Temperature 97.3 F L 96.8 F L Pulse Rate 88 87 Respiratory Rate 33 H 22 18 Blood Pressure 108/63 110/63 Pulse Oximetry 100 100 100 11/20/17 09:00 11/20/17 09:30 11/20/17 10:00 Temperature 96.4 F L 96.3 F L 95.9 F L Pulse Rate 93 H 91 H 102 H Respiratory Rate 22 16 30 H Blood Pressure 118/67 121/67 130/70 Pulse Oximetry 100 100 100 11/20/17 10:30 11/20/17 11:00 11/20/17 11:30 Temperature 95.5 F L 95.5 F L 95.9 F L Pulse Rate 96 H 106 H 105 H Respiratory Rate 35 H 10 L 18 Blood Pressure 126/66 124/67 106/60 Pulse Oximetry 100 100 99 11/20/17 12:00 11/20/17 12:10 11/20/17 12:30 Temperature 96.4 F L 97.0 F L Pulse Rate 106 H 108 H Respiratory Rate 9 L 18 19 Blood Pressure 85/53 L 91/55 L Pulse Oximetry 100 100 100 11/20/17 13:00 11/20/17 13:30 11/20/17 14:00 Temperature 97.3 F L 97.7 F 98.1 F Pulse Rate 110 H 111 H 111 H Respiratory Rate 33 H 34 H 30 H Blood Pressure 117/55 L 109/57 L 107/56 L Pulse Oximetry 100 100 100 11/20/17 14:30 11/20/17 15:00 11/20/17 15:30 Temperature 98.4 F 98.6 F 98.8 F Pulse Rate 114 H 112 H 113 H Respiratory Rate 24 29 H 31 H Blood Pressure 108/58 L 102/56 L 104/58 L Pulse Oximetry 100 100 100 11/20/17 16:00 11/20/17 16:18 11/20/17 16:30 Temperature 98.8 F 98.6 F Pulse Rate 115 H 114 H Respiratory Rate 30 H 16 16 Blood Pressure 127/57 L 117/56 L Pulse Oximetry 100 100 100 11/20/17 16:31 11/20/17 17:00 11/20/17 17:30 Temperature 98.2 F 98.1 F Pulse Rate 114 H 109 H Respiratory Rate 22 16 17 Blood Pressure 113/55 L 115/56 L Pulse Oximetry 100 100 11/20/17 18:00 11/20/17 18:30 11/20/17 19:00 Temperature 97.7 F 97.2 F L 96.8 F L Pulse Rate 106 H 104 H 106 H Respiratory Rate 24 16 16 Blood Pressure 114/58 L 124/58 L Pulse Oximetry 100 100 100 11/20/17 19:01 11/20/17 20:00 11/20/17 20:15 Temperature 96.8 F L 97.9 F Pulse Rate 106 H 108 H Respiratory Rate 16 16 16 Blood Pressure 124/59 L 115/57 L Pulse Oximetry 100 100 100 11/20/17 22:00 11/20/17 23:48 11/21/17 00:00 Temperature 98.9 F Pulse Rate 116 H 116 H Respiratory Rate 16 21 Blood Pressure 111/55 L Pulse Oximetry 100 100 11/21/17 02:00 11/21/17 04:00 11/21/17 04:57 Temperature 96.6 F L Pulse Rate 111 H 107 H Respiratory Rate 18 16 Blood Pressure 118/59 L Pulse Oximetry 100 100 11/21/17 06:00 11/21/17 07:37 Temperature Pulse Rate 100 H Respiratory Rate 16 Blood Pressure Pulse Oximetry 100 Intake & Output 11/20/17 11/21/17 11/21/17 18:59 06:59 18:59 Intake Total 1918 / 1918 1247 / 1247 Output Total 1525 / 1525 1500 / 1500 Balance 393 / 393 -253 / -253 Weight 118.1 kg Intake: IV 1160 / 1160 760 / 760 Diprivan 1000 mg/100 ml Inj 1, 310 / 310 410 / 410 000 mg In 100 ml @ 5 MCG/KG/MIN 3.261 mls/hr IV.CONT TITRATE PRN Rx#:[id number] Flexbumin 25% Inj 100 ML @ 60 100 / 100 100 / 100 mls/hr IV.SIG Q8H [facility] Rx#: [id number] Zyvox 600 mg Premix 300 ML @ 300 / 300 300 mls/hr IV.SIG Q12H [facility] Rx#: [id number] Merrem Inj 1,000 MG In NS Inj 100 / 100 100 ML @ 200 mls/hr IV.SIG Q12H [facility] Rx#:[id number] Mycamine Inj 100 MG In NS Inj 100 / 100 100 ML @ 100 mls/hr IV.SIG Q24H [facility] Rx#:[id number] fentaNYL 10 mcg/mL Premix Drip 250 / 250 250 / 250 2,500 mcg In 250 ml @ 50 MCG/HR 5 mls/hr IV.SIG TITRATE PRN Rx #:[id number] Oral 0 / 0 Oral Supplement 0 / 0 Tube Feeding 638 / 638 487 / 487 Tube Irrigant 0 / 0 Water Bolus Amount 120 / 120 0 / 0 Anesthesia Amount 0 / 0 Other 0 / 0 Output: Urine 0 / 0 Stool 1000 / 1000 950 / 950 Urine/Stool Mix 0 / 0 Estimated Blood Loss 0 / 0 Urine Amount (Catheter) 525 / 525 550 / 550 Indwelling Urethral Catheter 525 / 525 550 / 550 Wound Drainage 0 / 0 ZAMZAM Drain 0 / 0 Other: Other Intake Source Saline Solution # Voids 0 # Incontinent Voids 0 Date of Last Bowel Movement 09/04/18 09/04/18 # Bowel Movements 0 # Incontinent Bowel Movements 0 # Emeses 0 # Oral Regurgitations 0 Result Diagrams: 11/21/17 03:35 11/21/17 03:35 Objective Remarks: GENERAL: Intubated and sedated HEENT: NCAT, PERRL NECK: ETT and NGT in place. CHEST: Diminished mechanical breath sounds bilaterally CARDIOVASCULAR: Tachy to 110s, regular ABDOMEN: Morbidly obese, soft, non-tender in all quadrants. Extensive wounds are unchanged MUSCULOSKELETAL: Pitting anasarca to all extremities. NEUROLOGICAL: GCS 9T ([id number]) on sedation, RASS -1 Assessment and Plan - Assessment and Plan Plan: Assessment: 52-year-old female with an extensive recent medical history including multiple wound infections and severe acute protein calorie malnutrition who presents with recurrent severe sepsis and wound infection. Active problems: Severe Sepsis Acute hypoxemic respiratory failure Metabolic encephalopathy Severe sepsis Severe C diff colitis Deep tissue wound infection lower abdomen and perineum Severe hypoglycemia-resolved Elevated BMI Leukocytosis Normocytic anemia Thrombocytopenia Depressive disorder NOS Hyperlipidemia Acute kidney injury creatinine currently 2.48 Plan: NEURO: Sedated with propofol and fentanyl gtt for pain control. Continue mirtazapine 15 mg at night, trazodone 100 mg at night, apiriprazone 30 mg daily and buspirone 15 mg 3 times daily. Daily sedation vacation. CARDIO: Patient has persistent sinus tachycardia, likely secondary to infection/ anemia / SIRS Continue diltiazem 60 mg 3 times daily for hypertension RESP: Yesterday was only able to tolerate bipap trial for a short period of time before becoming tachypneic with low tidal volumes, ABG this morning 7.27/33/66/ 15.2/-10.3 F/E/N: Concentrated albumin for IV resuscitation- will continue again today to attempt to catch up with insensible losses Tube feeds at goal, were held for a short time yesterday due to regurgitated feeds but no issues since then Unable to place PEG or PEJ due to severe protein calorie malnutrition and high likelihood of surgical complications TPN was discontinued due to ongoing issues with PICC line (has become dislodged several times, replaced most recently by IR, now in brachiocephalic vein) and ability to tolerate TFs : Continued acute kidney injury, creatinine plateaued around 2.7-2.8, avoid nephrotoxic agents ID: Repeat cultures sent yesterday, continuing on linezolid, merrem, micafungin, PO vanco, dificid Meets criteria for severe C. difficile, creat >1.5, WBC >15K Lower abdomen and perineal wound infections, general surgery and ID following HEME: Anemia and thrombocytopenia. Hg today 6.5 with no obvious bleeding, likely due to fluid shifts, malnutrition, and anemia of chronic disease. Will give 2U PRBCs today, continue to monitor platelets. Despite drifting hemoglobin, will restart SQH today as the patient remains at high risk for VTE. ENDO: Frequent glycemic checks, D50 for hypoglycemia Overall: The patient continues to have multi-system organ dysfunction despite our best efforts. There are no additional antibiotic or surgical debridement options available for her wounds as she is already on maximally aggressive therapy. She has multiple comorbidities, and each intervention that we perform exacerbates her other active issues (C diff complicating wounds, antibiotics for wounds complicating C diff, albumin to keep up with insensible losses complicating respiratory status, poor nutrition complicating insensible losses, etc.). She has an overall very poor prognosis. Family meeting today at 1 PM to discuss prognosis and goals of care. Famotidine for GI prophylaxis. SCDs/ SQH for DVT prophylaxis. Counseling/ Coordination of Care: Total critical care time: 40 minutes. This includes examining the patient, discussing the patient's care with other providers and arranging family meeting , managing the patient's blood pressure and ventilator settings, ordering and interpreting radiology studies, ordering and interpreting laboratory studies, managing the patient's pain and sedation requirements, administration of blood products, re-evaluation at frequent intervals, and documentation. All critical care time is separate and exclusive of procedures, teaching, and patient/ family updates.
[2017-11-21] MEDS ORDERED: Sodium Chlor 0.9% Inj 250 ML IV.SIG SCH (08:00)
[2017-11-21] MEDS: Folic Acid 1 MG Tablet PO SCH (08:00)
[2017-11-21] MEDS: Duloxetine 60 MG DR Capsule PO SCH (08:01)
[2017-11-21] MEDS: Lactobacillus Acidophilus/L. Spores Tablet PO SCH ×2 (08:01→20:10)
[2017-11-21] MEDS: Heparin Central Flush 100 UNIT/ML 5 ML Vial IV.FLUSH SCH ×2 (08:02→08:03)
[2017-11-21] MEDS: Hypromellose 0.3% Opth Gel 10 GM Bottle EACH EYE SCH ×2 (08:02→20:10)
[2017-11-21] MEDS: Pantoprazole Inj 40 MG Vial IV.PUSH SCH (08:04)
[2017-11-21] MEDS: Chlorhexidine 0.12% Oral Kit 15 ML UDC OROPHARYNG SCH ×2 (08:05→20:10)
[2017-11-21] MEDS ORDERED: Magnesium Sulfate Inj 2 GM in Sodium Chlor 0.9% Inj 96 ML IV.SIG ONE (08:30)
--- NOTE | 2017-11-21 08:58 | P.PNFP ---
Subjective Interval history: Pt seen and examined this morning. Pt remains intubated and sedated. Hemoglobin dropping to 6.4 this morning. <Simon Devine - 11/21/17 08:58> Results - Labs Result diagrams: 11/21/17 03:35 11/21/17 03:35 <Schuyler Medina - 11/21/17 16:16> Abnormal lab results 11/16/17 11/21/17 11/21/17 Range/Units 15:10 03:35 03:35 WBC 11.9 H (4.0-11.0) th/mm3 RBC 2.28 L (4.00-5.30) mil/mm3 Hgb 6.4 L* (11.6-15.3) gm/dL Hct 19.4 L* (35.0-46.0) % RDW 17.5 H (11.6-17.2) % Plt Count 55 L (150-450) th/mm3 ABG pH (7.380-7.420) ABG pCO2 (38-42) mmHg ABG HCO3 (22-26) mmol/L ABG O2 Content (12.0-20.0) Vol % ABG Base Excess (-2-2) mmol/L Hemoglobin (12.0-16.0) G/DL Chloride 109 H (98-107) meq/L Carbon Dioxide 17.2 L (21.0-32.0) meq/L BUN 61 H (7-18) mg/dL Creatinine 2.47 H (0.50-1.00) mg/dL Estimated GFR 25 L (>89) mL/min Random Glucose 73 L (74-106) mg/dL Calcium 8.4 L D (8.5-10.1) mg/dL MTS Gel Crossmatch See Detail 11/21/17 11/21/17 Range/Units 05:01 08:15 WBC (4.0-11.0) th/mm3 RBC (4.00-5.30) mil/mm3 Hgb (11.6-15.3) gm/dL Hct (35.0-46.0) % RDW (11.6-17.2) % Plt Count (150-450) th/mm3 ABG pH 7.28 L* (7.380-7.420) ABG pCO2 34 L (38-42) mmHg ABG HCO3 15 L* (22-26) mmol/L ABG O2 Content 8.4 L (12.0-20.0) Vol % ABG Base Excess -10.3 L (-2-2) mmol/L Hemoglobin 6.5 L* (12.0-16.0) G/DL Chloride (98-107) meq/L Carbon Dioxide (21.0-32.0) meq/L BUN (7-18) mg/dL Creatinine (0.50-1.00) mg/dL Estimated GFR (>89) mL/min Random Glucose (74-106) mg/dL Calcium (8.5-10.1) mg/dL MTS Gel Crossmatch See Detail Short CBC 11/21/17 Range/Units 03:35 WBC 11.9 H (4.0-11.0) th/mm3 Hgb 6.4 L* (11.6-15.3) gm/dL Hct 19.4 L* (35.0-46.0) % Plt Count 55 L (150-450) th/mm3 BMP 11/21/17 03:35 Sodium 140 Potassium 4.3 Chloride 109 H Carbon Dioxide 17.2 L BUN 61 H Creatinine 2.47 H Calcium 8.4 L D <Schuyler Medina - 11/21/17 16:16> Abnormal lab results 11/21/17 11/21/17 11/21/17 Range/Units 03:35 03:35 05:01 WBC 11.9 H (4.0-11.0) th/mm3 RBC 2.28 L (4.00-5.30) mil/mm3 Hgb 6.4 L* (11.6-15.3) gm/dL Hct 19.4 L* (35.0-46.0) % RDW 17.5 H (11.6-17.2) % Plt Count 55 L (150-450) th/mm3 ABG pH 7.28 L* (7.380-7.420) ABG pCO2 34 L (38-42) mmHg ABG HCO3 15 L* (22-26) mmol/L ABG O2 Content 8.4 L (12.0-20.0) Vol % ABG Base Excess -10.3 L (-2-2) mmol/L Hemoglobin 6.5 L* (12.0-16.0) G/DL Chloride 109 H (98-107) meq/L Carbon Dioxide 17.2 L (21.0-32.0) meq/L BUN 61 H (7-18) mg/dL Creatinine 2.47 H (0.50-1.00) mg/dL Estimated GFR 25 L (>89) mL/min Random Glucose 73 L (74-106) mg/dL Calcium 8.4 L D (8.5-10.1) mg/dL Short CBC 11/21/17 Range/Units 03:35 WBC 11.9 H (4.0-11.0) th/mm3 Hgb 6.4 L* (11.6-15.3) gm/dL Hct 19.4 L* (35.0-46.0) % Plt Count 55 L (150-450) th/mm3 BMP 11/21/17 03:35 Sodium 140 Potassium 4.3 Chloride 109 H Carbon Dioxide 17.2 L BUN 61 H Creatinine 2.47 H Calcium 8.4 L D <Simon Devine - 11/21/17 08:58> Physical Exam Vital signs: Vital Signs 11/20/17 16:18 11/20/17 16:30 11/20/17 16:31 Temperature 98.6 F Pulse Rate 114 H Respiratory Rate 16 16 22 Blood Pressure 117/56 L Pulse Oximetry 100 100 11/20/17 17:00 11/20/17 17:30 11/20/17 18:00 Temperature 98.2 F 98.1 F 97.7 F Pulse Rate 114 H 109 H 106 H Respiratory Rate 16 17 24 Blood Pressure 113/55 L 115/56 L 114/58 L Pulse Oximetry 100 100 100 11/20/17 18:30 11/20/17 19:00 11/20/17 19:01 Temperature 97.2 F L 96.8 F L 96.8 F L Pulse Rate 104 H 106 H 106 H Respiratory Rate 16 16 16 Blood Pressure 124/58 L 124/59 L Pulse Oximetry 100 100 100 11/20/17 20:00 11/20/17 20:15 11/20/17 22:00 Temperature 97.9 F Pulse Rate 108 H 116 H Respiratory Rate 16 16 Blood Pressure 115/57 L Pulse Oximetry 100 100 11/20/17 23:48 11/21/17 00:00 11/21/17 02:00 Temperature 98.9 F Pulse Rate 116 H 111 H Respiratory Rate 16 21 Blood Pressure 111/55 L Pulse Oximetry 100 100 11/21/17 04:00 11/21/17 04:57 11/21/17 06:00 Temperature 96.6 F L Pulse Rate 107 H 100 H Respiratory Rate 18 16 Blood Pressure 118/59 L Pulse Oximetry 100 100 11/21/17 07:37 11/21/17 08:00 11/21/17 10:00 Temperature 97.7 F Pulse Rate 111 H 115 H Respiratory Rate 16 Blood Pressure Pulse Oximetry 100 11/21/17 10:51 11/21/17 11:10 11/21/17 12:00 Temperature 98.7 F 98.7 F Pulse Rate 123 H 115 H Respiratory Rate 17 16 Blood Pressure 130/60 Pulse Oximetry 100 100 11/21/17 13:01 11/21/17 14:00 Temperature 98.6 F Pulse Rate 112 H 115 H Respiratory Rate Blood Pressure 114/58 L Pulse Oximetry 100 Intake & Output 11/20/17 11/21/17 11/21/17 18:59 06:59 18:59 Intake Total 1918 / 1918 1747 / 1747 1949 Output Total 1525 / 1525 1500 / 1500 Balance 393 / 393 247 / 247 1949 Weight 118.1 kg Intake: IV 1160 / 1160 1260 / 1260 1150 / 1150 Diprivan 1000 mg/100 ml Inj 1, 310 / 310 410 / 410 200 / 200 000 mg In 100 ml @ 5 MCG/KG/MIN 3.261 mls/hr IV.CONT TITRATE PRN Rx#:[id number] Flexbumin 25% Inj 100 ML @ 60 100 / 100 200 / 200 100 / 100 mls/hr IV.SIG Q8H [facility] Rx#: [id number] Zyvox 600 mg Premix 300 ML @ 300 / 300 300 / 300 300 / 300 300 mls/hr IV.SIG Q12H [facility] Rx#: [id number] Magnesium Sulfate Inj 2 GM In 100 / 100 NS Inj 96 ML @ 50 mls/hr IV.SIG ONCE ONE Rx#:[id number] Merrem Inj 1,000 MG In NS Inj 100 / 100 100 / 100 100 / 100 100 ML @ 200 mls/hr IV.SIG Q12H [facility] Rx#:[id number] Mycamine Inj 100 MG In NS Inj 100 / 100 100 / 100 100 ML @ 100 mls/hr IV.SIG Q24H [facility] Rx#:[id number] fentaNYL 10 mcg/mL Premix Drip 250 / 250 250 / 250 250 / 250 2,500 mcg In 250 ml @ 50 MCG/HR 5 mls/hr IV.SIG TITRATE PRN Rx #:[id number] Oral 0 / 0 Oral Supplement 0 / 0 Tube Feeding 638 / 638 487 / 487 Tube Irrigant 0 / 0 Water Bolus Amount 120 / 120 0 / 0 Anesthesia Amount 0 / 0 Other 0 / 0 Intake (Blood Product) Amt 800 / 800 Rbc As-3 Leukoreduced Unit 400 / 400 [id number] Rbc As-3 Leukoreduced Unit 400 / 400 [id number] Output: Urine 0 / 0 Stool 1000 / 1000 950 / 950 Urine/Stool Mix 0 / 0 Estimated Blood Loss 0 / 0 Urine Amount (Catheter) 525 / 525 550 / 550 Indwelling Urethral Catheter 525 / 525 550 / 550 Wound Drainage 0 / 0 ZAMZAM Drain 0 / 0 Other: Other Intake Source Saline Solution # Voids 0 # Incontinent Voids 0 Date of Last Bowel Movement 11/20/17 11/20/17 11/21/17 # Bowel Movements 0 # Incontinent Bowel Movements 0 # Emeses 0 # Oral Regurgitations 0 <Schuyler Medina - 11/21/17 16:16> Vital Signs 11/20/17 09:00 11/20/17 09:30 11/20/17 10:00 Temperature 96.4 F L 96.3 F L 95.9 F L Pulse Rate 93 H 91 H 102 H Respiratory Rate 22 16 30 H Blood Pressure 118/67 121/67 130/70 Pulse Oximetry 100 100 100 11/20/17 10:30 11/20/17 11:00 11/20/17 11:30 Temperature 95.5 F L 95.5 F L 95.9 F L Pulse Rate 96 H 106 H 105 H Respiratory Rate 35 H 10 L 18 Blood Pressure 126/66 124/67 106/60 Pulse Oximetry 100 100 99 11/20/17 12:00 11/20/17 12:10 11/20/17 12:30 Temperature 96.4 F L 97.0 F L Pulse Rate 106 H 108 H Respiratory Rate 9 L 18 19 Blood Pressure 85/53 L 91/55 L Pulse Oximetry 100 100 100 11/20/17 13:00 11/20/17 13:30 11/20/17 14:00 Temperature 97.3 F L 97.7 F 98.1 F Pulse Rate 110 H 111 H 111 H Respiratory Rate 33 H 34 H 30 H Blood Pressure 117/55 L 109/57 L 107/56 L Pulse Oximetry 100 100 100 11/20/17 14:30 11/20/17 15:00 11/20/17 15:30 Temperature 98.4 F 98.6 F 98.8 F Pulse Rate 114 H 112 H 113 H Respiratory Rate 24 29 H 31 H Blood Pressure 108/58 L 102/56 L 104/58 L Pulse Oximetry 100 100 100 11/20/17 16:00 11/20/17 16:18 11/20/17 16:30 Temperature 98.8 F 98.6 F Pulse Rate 115 H 114 H Respiratory Rate 30 H 16 16 Blood Pressure 127/57 L 117/56 L Pulse Oximetry 100 100 100 11/20/17 16:31 11/20/17 17:00 11/20/17 17:30 Temperature 98.2 F 98.1 F Pulse Rate 114 H 109 H Respiratory Rate 22 16 17 Blood Pressure 113/55 L 115/56 L Pulse Oximetry 100 100 11/20/17 18:00 11/20/17 18:30 11/20/17 19:00 Temperature 97.7 F 97.2 F L 96.8 F L Pulse Rate 106 H 104 H 106 H Respiratory Rate 24 16 16 Blood Pressure 114/58 L 124/58 L Pulse Oximetry 100 100 100 11/20/17 19:01 11/20/17 20:00 11/20/17 20:15 Temperature 96.8 F L 97.9 F Pulse Rate 106 H 108 H Respiratory Rate 16 16 16 Blood Pressure 124/59 L 115/57 L Pulse Oximetry 100 100 100 11/20/17 22:00 11/20/17 23:48 11/21/17 00:00 Temperature 98.9 F Pulse Rate 116 H 116 H Respiratory Rate 16 21 Blood Pressure 111/55 L Pulse Oximetry 100 100 11/21/17 02:00 11/21/17 04:00 11/21/17 04:57 Temperature 96.6 F L Pulse Rate 111 H 107 H Respiratory Rate 18 16 Blood Pressure 118/59 L Pulse Oximetry 100 100 11/21/17 06:00 11/21/17 07:37 Temperature Pulse Rate 100 H Respiratory Rate 16 Blood Pressure Pulse Oximetry 100 Intake & Output 11/20/17 11/21/17 11/21/17 18:59 06:59 18:59 Intake Total 1918 / 1918 1347 / 1347 Output Total 1525 / 1525 1500 / 1500 Balance 393 / 393 -153 / -153 Weight 118.1 kg Intake: IV 1160 / 1160 860 / 860 Diprivan 1000 mg/100 ml Inj 1, 310 / 310 410 / 410 000 mg In 100 ml @ 5 MCG/KG/MIN 3.261 mls/hr IV.CONT TITRATE PRN Rx#:[id number] Flexbumin 25% Inj 100 ML @ 60 100 / 100 200 / 200 mls/hr IV.SIG Q8H [facility] Rx#: [id number] Zyvox 600 mg Premix 300 ML @ 300 / 300 300 mls/hr IV.SIG Q12H [facility] Rx#: [id number] Merrem Inj 1,000 MG In NS Inj 100 / 100 100 ML @ 200 mls/hr IV.SIG Q12H [facility] Rx#:[id number] Mycamine Inj 100 MG In NS Inj 100 / 100 100 ML @ 100 mls/hr IV.SIG Q24H [facility] Rx#:[id number] fentaNYL 10 mcg/mL Premix Drip 250 / 250 250 / 250 2,500 mcg In 250 ml @ 50 MCG/HR 5 mls/hr IV.SIG TITRATE PRN Rx #:[id number] Oral 0 / 0 Oral Supplement 0 / 0 Tube Feeding 638 / 638 487 / 487 Tube Irrigant 0 / 0 Water Bolus Amount 120 / 120 0 / 0 Anesthesia Amount 0 / 0 Other 0 / 0 Output: Urine 0 / 0 Stool 1000 / 1000 950 / 950 Urine/Stool Mix 0 / 0 Estimated Blood Loss 0 / 0 Urine Amount (Catheter) 525 / 525 550 / 550 Indwelling Urethral Catheter 525 / 525 550 / 550 Wound Drainage 0 / 0 ZAMZAM Drain 0 / 0 Other: Other Intake Source Saline Solution # Voids 0 # Incontinent Voids 0 Date of Last Bowel Movement 11/20/17 11/20/17 # Bowel Movements 0 # Incontinent Bowel Movements 0 # Emeses 0 # Oral Regurgitations 0 <Simon Devine 11/21/17 08:58> Narrative: GENERAL: Morbidly obese -[place] female lying in bed intubated and sedated with soft restraints intact. HEENT: Atraumatic, normocephalic. ET tube in place. CARDIOVASCULAR: Tachycardic rate (baseline) and regular rhythm without obvious murmurs, gallops, or rubs. RESPIRATORY: Bilateral rhonchi throughout. Breath sounds difficult to auscultate due to body habitus and ventilator noise. No increased work of breathing. GASTROINTESTINAL: Abdomen diffuse, soft with soft bowel sounds. Rectal tube in place with liquid fecal material in reservoir. Hopper catheter in place. MUSCULOSKELETAL: Bilateral upper extremity 2+ edema. Stable bilateral lower extremity 2+. Left knee effusion stable. SCDs in place. NEURO/PSYCH: Patient intubated and sedated. SKIN: Cool and dry. No rash. PICC line without surrounding erythema, warmth, or other signs of infection. ABD wounds: Transverse suprapubic wound stapled along with midline stapled incision. Currently dry bandages clean. <Simon Devine 11/21/17 08:58> - Urinary Catheter Management Female External Cath placed during this visit: no <Schuyler Medina 11/21/17 16:16> no <Simon Devine 11/21/17 08:58> Indwelling Urethral Catheter Cath placed during this visit: no <Schuyler Medina 11/21/17 16:16> yes, but has since been removed by the nurse <Simon Devine 11/21/17 08:58> Reason for continuing: Severe pressure ulcer/wound <Simon Devine 08:58> Insertion date: 10/09/17 <Simon Devine 11/21/17 08:58> Insertion time: 14:00 <Simon Devine 11/21/17 08:58> Removal date: 10/05/17 <Simno Devine 11/21/17 08:58> Removal time: 17:30 <Simon Devine 11/21/17 08:58> Assessment and Plan - Assessment (1) Respiratory failure Code(s): J96.90 - Respiratory failure, unspecified, unspecified whether with hypoxia or hypercapnia Status: Acute (2) Sepsis Code(s): A41.9 - Sepsis, unspecified organism Status: Acute (3) Open wound of abdominal wall Code(s): S31.109A - Unspecified open wound of abdominal wall, unspecified quadrant without penetration into peritoneal cavity, initial encounter Status : Acute (4) Aspiration into airway Code(s): T17.908A - Unspecified foreign body in respiratory tract, part unspecified causing other injury, initial encounter Status: Acute (5) C. difficile diarrhea Code(s): A04.72 - Enterocolitis due to Clostridium difficile, not specified as recurrent Status: Acute (6) Anemia Code(s): D64.9 - Anemia, unspecified Status: Resolved (7) Creatinine elevation Code(s): R79.89 - Other specified abnormal findings of blood chemistry Status : Acute (8) Thrombocytopenia Code(s): D69.6 - Thrombocytopenia, unspecified Status: Acute (9) Poor nutrition Code(s): E63.9 - Nutritional deficiency, unspecified Status: Acute (10) Schizophrenia Code(s): F20.9 - Schizophrenia, unspecified Status: Chronic (11) Altered mental status Code(s): R41.82 - Altered mental status, unspecified Status: Acute (12) Cellulitis of knee, left Code(s): L03.116 - Cellulitis of left lower limb Status: Acute (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 - Infection and inflammatory reaction due to unspecified internal joint prosthesis, initial encounter Status: Suspected (14) Hypertension Code(s): I10 - Essential (primary) hypertension Status: Acute (15) Tachycardia Code(s): R00.0 - Tachycardia, unspecified Status: Chronic (16) Nutrition, metabolism, and development symptoms Code(s): R63.8 - Other symptoms and signs concerning food and fluid intake Status: Acute <PrevattLoc nunezSchuyler - 11/21/17 16:16> (1) Respiratory failure Code(s): J96.90 - Respiratory failure, unspecified, unspecified whether with hypoxia or hypercapnia Status: Acute Plan: Patient with possible aspiration episode on 11/12/17 with subsequent acute respiratory failure requiring intubation ABG 11/12/17:7.3/33/219/16 CXR 11/15/17: Mild bibasilar consolidation, improved on the right and slightly worse on the left. CXR continues to show stable disease -Patient intubated and sedated -Continues to fail weaning trials -Ornamental Iron Worker Helper consulted -Palliative care consulted (2) Sepsis Code(s): A41.9 - Sepsis, unspecified organism Status: Acute Plan: Patient meeting sepsis criteria with core body temperature of high/low temp, leukocytosis, and tachycardia. Suspected site of infection as her extensive abdominal wounds w/ C diff as well -Please see plan as below (3) Open wound of abdominal wall Code(s): S31.109A - Unspecified open wound of abdominal wall, unspecified quadrant without penetration into peritoneal cavity, initial encounter Status : Acute Plan: Large abdominal and pelvic wounds that appear not to be healing likely secondary to poor nutritional status -Wound Culture 09/27/17: Pseudomonas and Group B Step -Blood Cultures 10/24/17: Negative -Tissue Cultures 10/09/17: Negative -Abdominal wound culture 11/01/17: Group D Enterococcus, sensitive to Daptomycin ; Fungal species -Blood Culture 11/07/17 per TPN protocol: Negative to date -Blood Culture 11/12/17: NTD -PICC Line/Blood Cultures 11/15/17: no growth to date -Infectious disease consulted -General surgery consulted -Surgical debridement 10/09, wound VAC applied. -VAC changed 10/12 removed 10/15. -Debridement, irrigation, with suturing performed on 10/16. -I&D of abdomen and bilateral thighs, placement of Amniox with wound closure on 11/01/17 -Dressing changes per general surgery Medications: -Meropenem (11/13/17- ) -Micafungin (11/13/17- ) -Linezolid (11/13/17- ) -Dificid (11/15/17 - ) -PO Vanc (10/23/17 - ) Levaquin (11/10/17-11/15/17) -Daptomycin IV for suspected VRE per ID (11/03/17-11/13/17) -Cefepime IV (09/29/17-11/08/17) discontinued due to thrombocytopenia and elevated creatinine -Flagyl (11/10/17-11/13/17) -Diflucan 500mg daily (11/12/17) -Fentanyl added to assist with pain control (4) Aspiration into airway Code(s): T17.908A - Unspecified foreign body in respiratory tract, part unspecified causing other injury, initial encounter Status: Acute Plan: Patient with possible aspiration episode overnight 11/09/17 with another episode on 11/12/17. Patient now with respiratory failure as above Chest x-ray 11/09/12: Interval development of left lower lobe consolidation CXR 11/10/17: Left upper extremity PICC distal tip at the junction of the SVC and brachiocephalic vein. Bibasilar airspace opacity could represent atelectasis versus consolidation. CXR 11/12/17: Interim intubation. Endotracheal tip at the shaka. Small effusion and mild consolidation developing at the right base. Sputum cultures: Gram stain with rare gram positive cocci in pairs, many WBC, mucus; Culture with light growth of normal respiratory lisa at 24 hours. CXR 11/15/17: Mild bibasilar consolidation, improved on the right and slightly worse on the left. CXR 11/19/17: no significant change -Continues to show stable disease -Speech therapy consulted for swallow evaluation once extubated -ID consulted Medications: -Meropenem (11/13/17- ) -Micafungin (11/13/17- ) -Linezolid (11/13/17- ) Levaquin (11/10/17-11/15/17) -Flagyl (11/10/17-11/13/17) (5) C. difficile diarrhea Code(s): A04.72 - Enterocolitis due to Clostridium difficile, not specified as recurrent Status: Acute Plan: C diff cultures positive 10/19/17 Patient meeting criteria for severe C. difficile infection -Vancomycin PO 125 4 times daily (10/23/17- ) -Difficid 200mg BID (11/15/17- ) -Continue with probiotics. -Rectal tube in place (6) Anemia Code(s): D64.9 - Anemia, unspecified Status: Resolved Plan: Patient found to have asymptomatic anemia H/H of 7/20.3 with MCV of 82 on Hb 6.4 this morning. no signs of active bleeding -Rectal tube and Hopper catheter without any signs of acute bleeding -Dressings without obvious signs of bleeding -11 units total thus far during admission (11/16/17 most recent) -Consider transfusion if requiring more volume -Continue to monitor (7) Creatinine elevation Code(s): R79.89 - Other specified abnormal findings of blood chemistry Status : Acute Plan: Patient with acute creatinine elevation with starting TPN. -Unknown etiology at this time -Patient with decreasing urinary output -Hopper exchanged for possible obstruction; patient with continued decreased output -Electrolytes WNL -Continue to monitor creatinine, I/Os (8) Thrombocytopenia Code(s): D69.6 - Thrombocytopenia, unspecified Status: Acute Plan: Patient with decreasing platelet count -Etiology unknown -No signs of acute bruising/bleeding on limited skin exam due to body habitus -Continue to monitor -If <50 or signs of bleeding, continue platelet transfusion (9) Poor nutrition Code(s): E63.9 - Nutritional deficiency, unspecified Status: Acute Plan: -Patient with poor nutritional status during hospitalization -Severe concern of poor wound healing secondary to poor nutritional status -Safety Deposit Supervisor consulted for calorie count and nutritional guidance, which has been limited due to NPO status prior to surgery, however patient continues to have poor intake -Multivitamin IV added with Hermes supplementation BID -Albumin levels continued to be decreased -Patient unable to receive 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 Briefly discussed with surgery about the possibility of a JG tube versus surgical placement of PEG tube, deferred as patient will likely not heal from surgical procedure due to nutritional status -NG tube placed with vital 1.5 tube feeds started per dietary TPN, Clinimix E 08/05 @ 65 mls/hr with 20% lipids 250 mls 2x/week (11/07/17-) -Started on Albumin IV overnight (11/19) (10) Schizophrenia Code(s): F20.9 - Schizophrenia, unspecified Status: Chronic Plan: -Psychiatry consulted upon admission -Patient with increased agitation and disorientation on 11/09/17; during episode patient pulled PICC line and attempted to pull out rectal/Hopper; patient required 1 mg Haldol for agitation during episode -Psychiatry consulted for further evaluation Medications: -Haldol 1-2 mg IV/IM every 8 hours as needed for aggressive behavior/agitation -Continue Abilify 30 mg for psychosis -Continue buspirone 30 mg, trazodone 100 mg and Cymbalta 60 mg -Started Mirtazapine 15mg QHS to assist with mood as well as appetite stimulant -Hold anticholinergics per Psych (11) Altered mental status Code(s): R41.82 - Altered mental status, unspecified Status: Acute Plan: Patient with altered mental status overnight 11/11/17 with possible aspiration due to new dysphagia. Patient's mental status continues to decline with a GCS score of 10. Likely related to hypoglycemia as patient did not have access and was not able to receive nutrition via PICC line and is n.p.o. for failed swallow study. -CT Head: Interval enlargement of the ventricular system of uncertain etiology. No clear evidence of an obstructing process. Otherwise stable evaluation without evidence of acute infarct, hemorrhage, mass, or edema. -MRI wo contrast: Negative for acute process -Speech therapy consulted Neurology consulted, appreciate recommendations -No active neurological issues -Ornamental Iron Worker Helper consulted, appreciate recommendations -Currently intubated and sedated Medications: -TPN -Haldol 1mg PRN for agitation/hallucinations -Lopressor 5mg IV PRN for HR >120 every 15min (12) Cellulitis of knee, left Code(s): L03.116 - Cellulitis of left lower limb Status: Acute Plan: -ID consulted, recommend Cefepime until 11/08/17 -Orthopedic surgery consulted, no further recommendations at this time Medications: -As above (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 She completed rehabilitation and was discharged home August 23. Patient was on approximately 2 weeks of po Keflex 500 mg. Per Ortho, examination of left knee shows no evidence of infection. (14) Hypertension Code(s): I10 - Essential (primary) hypertension Status: Acute Plan: History of hypertension Hold oral medications below -Continue to monitor -Clonidine PRN for BP > 180/100 (15) Tachycardia Code(s): R00.0 - Tachycardia, unspecified Status: Chronic Plan: -Patient with chronic history of tachycardia -EKG 09/27/17: Sinus tachycardia with rate of [address] or interval changes. (Per medical team read) Medications: -Lopressor 5mg IV PRN for HR >120 if unable to tolerate PO -Continue home diltiazem and carvedilol (16) Nutrition, metabolism, and development symptoms Code(s): R63.8 - Other symptoms and signs concerning food and fluid intake Status: Acute Plan: Fluids: NG tube feeds with Vital 1.5 @ 40 mls/hr goal, plan to wean TPN with SSI as needed Electrolytes: Replete as needed per ICU protocol Nutrition: -Safety Deposit Supervisor consulted for nutritional guidance -NG tube placed and tube feeds started with vital 1.5 at 50 mils per hour (goal) -TPN Clinimix E 08/05 @ 65 mls/hr with 20% lipids 250 mls 2x/week (11/07/17- ); plan to wean as tolerated now that NG tube feeds have been initiated -Started on albumin IV PICC line placed in left upper extremity DVT prophylaxis: SCDs, Defer medical prophylaxis due to anemia <Simon Devine - 11/21/17 08:44> - Assessment and Plan 52 y/o female with multi-system organ dysfunction after multiple wound infections, and with severe sepsis and malnutrition. Pt is on maximum ID therapy and conflicting therapies leading to a very poor prognosis. Palliative care is consulted. Discussed with Dr. Mcleod, planning for family meeting at 1pm today. <Simon Devine - 11/21/17 08:58> - Attending Attestation Patient seen and examined. Discussed with Dr. Devine. Agree with assessment and plan as documented. <Schuyler Medina - 11/21/17 16:16> <Simon Devine - Last Filed: 11/21/17 08:44> (1) Respiratory failure Qualifiers: Chronicity: acute (3) Open wound of abdominal wall Qualifiers: Encounter type: initial encounter Qualified Code(s): S31.109A - Unspecified open wound of abdominal wall, unspecified quadrant without penetration into peritoneal cavity, initial encounter (4) Aspiration into airway Qualifiers: Encounter type: initial encounter Qualified Code(s): T17.908A - Unspecified foreign body in respiratory tract, part unspecified causing other injury, initial encounter (6) Anemia Qualifiers: Anemia type: unspecified type Qualified Code(s): D64.9 - Anemia, unspecified (11) Altered mental status Qualifiers: Altered mental status type: unspecified Qualified Code(s): R41.82 - Altered mental status, unspecified (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 <Schuyler Medina - Last Filed: 11/21/17 16:16> (1) Respiratory failure Qualifiers: Chronicity: acute (3) Open wound of abdominal wall Qualifiers: Encounter type: initial encounter Qualified Code(s): S31.109A - Unspecified open wound of abdominal wall, unspecified quadrant without penetration into peritoneal cavity, initial encounter (4) Aspiration into airway Qualifiers: Encounter type: initial encounter Qualified Code(s): T17.908A - Unspecified foreign body in respiratory tract, part unspecified causing other injury, initial encounter (6) Anemia Qualifiers: Anemia type: unspecified type Qualified Code(s): D64.9 - Anemia, unspecified (11) Altered mental status Qualifiers: Altered mental status type: unspecified Qualified Code(s): R41.82 - Altered mental status, unspecified (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 <Simon Devine - Last Filed: 11/21/17 08:44> (1) Respiratory failure Qualifiers: Chronicity: acute (3) Open wound of abdominal wall Qualifiers: Encounter type: initial encounter Qualified Code(s): S31.109A - Unspecified open wound of abdominal wall, unspecified quadrant without penetration into peritoneal cavity, initial encounter (4) Aspiration into airway Qualifiers: Encounter type: initial encounter Qualified Code(s): T17.908A - Unspecified foreign body in respiratory tract, part unspecified causing other injury, initial encounter (6) Anemia Qualifiers: Anemia type: unspecified type Qualified Code(s): D64.9 - Anemia, unspecified (11) Altered mental status Qualifiers: Altered mental status type: unspecified Qualified Code(s): R41.82 - Altered mental status, unspecified (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 <Schuyler Medina - Last Filed: 11/21/17 16:16> (1) Respiratory failure Qualifiers: Chronicity: acute (3) Open wound of abdominal wall Qualifiers: Encounter type: initial encounter Qualified Code(s): S31.109A - Unspecified open wound of abdominal wall, unspecified quadrant without penetration into peritoneal cavity, initial encounter (4) Aspiration into airway Qualifiers: Encounter type: initial encounter Qualified Code(s): T17.908A - Unspecified foreign body in respiratory tract, part unspecified causing other injury, initial encounter (6) Anemia Qualifiers: Anemia type: unspecified type Qualified Code(s): D64.9 - Anemia, unspecified (11) Altered mental status Qualifiers: Altered mental status type: unspecified Qualified Code(s): R41.82 - Altered mental status, unspecified (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
[2017-11-21] MEDS: Heparin - SQ 10,000 UNITS/ML Vial SQ SCH ×3 (09:50→22:25)
--- NOTE | 2017-11-21 11:56 | P.PNID ---
Subjective Remarks: ID coverage. 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 Post op it appears she was discharged to a rehab. She was discharged from the rehab to home with her on August 23. Patient reports she lives at home with her who is on disability. Unsure of nature of disability at this time and his ability to take care of her. She was reportedly able to ambulate on her own initially followed by weakness and need for walker and then to a point where she did not want to get out of bed. It has been reported to others that she had some discharge at the left surgical site area and ortho surgeon prescribed oral keflex which reportedly lead to some improvement. She reportedly completed a week of antibiotic treatment with last day scheduled for today with some improvement in her knee pain. However her stated that she was starting to have more drainage from her knee just over the past day or so. He had pointed to several areas that had been draining pus from just above and just below the knee. He stated that a cup full of pus would drain at a time. Additionally the abdominal fold wounds appear to have been present for atleast 3 weeks now. With this background patient presented to the ED with complaints of worsening shortness of breath and mental status accompanied with symptoms of diarrhea (3 days, non-bloody) and decreased p.o. intake (5 days). She was also brought into the hospital due to infection of her knee that improved with Keflex p.o but now has returned with new additional drainage over the past few days. ID consulted for evaluation and Mment of Left knee prosthetic joint infection and neutropenia. Patient underwent incision and debridement of the inferior abdominal wall and proximal inner thighs on 10/12/2017. Since then she has had multiple surgeries done, last one done 11/01, closure of wounds Receiving IV antibiotics for left knee infection/C difficile. CT scan showed small joint effusion and subcutaneous edema of the fat at the left knee. Notes reviewed D/W RN overnight events. Patient is currently on the ventilator. She is on CPAP. Continues to be hypothermic on a bear hugger. Diarrhea ongoing via rectal tube. Receiving blood transfusions but no overt bleeding. Antibiotics: Meropenem Zyvox Micafungin PO Vancomycin Lines: PICC Lines ok. Past Medical History: reviewed Allergies/Adverse Reactions: Allergies amoxicillin Allergy (Verified 09/27/17 17:54) Swelling Objective Vital Signs 11/20/17 12:00 11/20/17 12:10 11/20/17 12:30 Temperature 96.4 F L 97.0 F L Pulse Rate 106 H 108 H Respiratory Rate 9 L 18 19 Blood Pressure 85/53 L 91/55 L Pulse Oximetry 100 100 100 11/20/17 13:00 11/20/17 13:30 11/20/17 14:00 Temperature 97.3 F L 97.7 F 98.1 F Pulse Rate 110 H 111 H 111 H Respiratory Rate 33 H 34 H 30 H Blood Pressure 117/55 L 109/57 L 107/56 L Pulse Oximetry 100 100 100 11/20/17 14:30 11/20/17 15:00 11/20/17 15:30 Temperature 98.4 F 98.6 F 98.8 F Pulse Rate 114 H 112 H 113 H Respiratory Rate 24 29 H 31 H Blood Pressure 108/58 L 102/56 L 104/58 L Pulse Oximetry 100 100 100 11/20/17 16:00 11/20/17 16:18 11/20/17 16:30 Temperature 98.8 F 98.6 F Pulse Rate 115 H 114 H Respiratory Rate 30 H 16 16 Blood Pressure 127/57 L 117/56 L Pulse Oximetry 100 100 100 11/20/17 16:31 11/20/17 17:00 11/20/17 17:30 Temperature 98.2 F 98.1 F Pulse Rate 114 H 109 H Respiratory Rate 22 16 17 Blood Pressure 113/55 L 115/56 L Pulse Oximetry 100 100 11/20/17 18:00 11/20/17 18:30 11/20/17 19:00 Temperature 97.7 F 97.2 F L 96.8 F L Pulse Rate 106 H 104 H 106 H Respiratory Rate 24 16 16 Blood Pressure 114/58 L 124/58 L Pulse Oximetry 100 100 100 11/20/17 19:01 11/20/17 20:00 11/20/17 20:15 Temperature 96.8 F L 97.9 F Pulse Rate 106 H 108 H Respiratory Rate 16 16 16 Blood Pressure 124/59 L 115/57 L Pulse Oximetry 100 100 100 11/20/17 22:00 11/20/17 23:48 11/21/17 00:00 Temperature 98.9 F Pulse Rate 116 H 116 H Respiratory Rate 16 21 Blood Pressure 111/55 L Pulse Oximetry 100 100 11/21/17 02:00 11/21/17 04:00 11/21/17 04:57 Temperature 96.6 F L Pulse Rate 111 H 107 H Respiratory Rate 18 16 Blood Pressure 118/59 L Pulse Oximetry 100 100 11/21/17 06:00 11/21/17 07:37 11/21/17 08:00 Temperature 97.7 F Pulse Rate 100 H 111 H Respiratory Rate 16 Blood Pressure Pulse Oximetry 100 11/21/17 10:00 11/21/17 10:51 11/21/17 11:10 Temperature 98.7 F Pulse Rate 115 H 123 H Respiratory Rate 17 16 Blood Pressure 130/60 Pulse Oximetry 100 100 Intake & Output 11/20/17 11/21/17 11/21/17 18:59 06:59 18:59 Intake Total 1918 / 1918 1647 / 1647 350 / 350 Output Total 1525 / 1525 1500 / 1500 Balance 393 / 393 147 / 147 350 / 350 Weight 118.1 kg Intake: IV 1160 / 1160 1160 / 1160 350 / 350 Diprivan 1000 mg/100 ml Inj 1, 310 / 310 410 / 410 100 / 100 000 mg In 100 ml @ 5 MCG/KG/MIN 3.261 mls/hr IV.CONT TITRATE PRN Rx#:[id number] Flexbumin 25% Inj 100 ML @ 60 100 / 100 200 / 200 mls/hr IV.SIG Q8H [place] Rx#: [id number] Zyvox 600 mg Premix 300 ML @ 300 / 300 300 / 300 300 mls/hr IV.SIG Q12H [facility] Rx#: [id number] Merrem Inj 1,000 MG In NS Inj 100 / 100 100 ML @ 200 mls/hr IV.SIG Q12H [facility] Rx#:[id number] Mycamine Inj 100 MG In NS Inj 100 / 100 100 ML @ 100 mls/hr IV.SIG Q24H [facility] Rx#:[id number] fentaNYL 10 mcg/mL Premix Drip 250 / 250 250 / 250 250 / 250 2,500 mcg In 250 ml @ 50 MCG/HR 5 mls/hr IV.SIG TITRATE PRN Rx #:[id number] Oral 0 / 0 Oral Supplement 0 / 0 Tube Feeding 638 / 638 487 / 487 Tube Irrigant 0 / 0 Water Bolus Amount 120 / 120 0 / 0 Anesthesia Amount 0 / 0 Other 0 / 0 Intake (Blood Product) Amt 0 / 0 Rbc As-3 Leukoreduced Unit 0 / 0 [id number] Output: Urine 0 / 0 Stool 1000 / 1000 950 / 950 Urine/Stool Mix 0 / 0 Estimated Blood Loss 0 / 0 Urine Amount (Catheter) 525 / 525 550 / 550 Indwelling Urethral Catheter 525 / 525 550 / 550 Wound Drainage 0 / 0 ZAMZAM Drain 0 / 0 Other: Other Intake Source Saline Solution # Voids 0 # Incontinent Voids 0 Date of Last Bowel Movement 11/20/17 11/20/17 11/21/17 # Bowel Movements 0 # Incontinent Bowel Movements 0 # Emeses 0 # Oral Regurgitations 0 11/20/17 12:36 Blood - Line Aerobic Blood Culture - Preliminary No growth in 1 day 11/20/17 12:36 Blood - Line Anaerobic Blood Culture - Preliminary No growth in 1 day 11/20/17 12:28 Blood - Line Aerobic Blood Culture - Preliminary No growth in 1 day 11/20/17 12:28 Blood - Line Anaerobic Blood Culture - Preliminary No growth in 1 day 10/09/17 15:49 Tissue - Abdominal Acid Fast Bacilli Smear - Final No acid fast bacilli seen 10/09/17 15:49 Tissue - Abdominal Mycobacterial Culture - Final No growth in 6 weeks 11/15/17 13:10 Blood - Line Aerobic Blood Culture - Final No growth in 5 days 11/15/17 13:10 Blood - Line Anaerobic Blood Culture - Final No growth in 5 days 11/15/17 12:30 Blood - Peripheral Aerobic Blood Culture - Final No growth in 5 days 11/15/17 12:30 Blood - Peripheral Anaerobic Blood Culture - Final No growth in 5 days 11/15/17 12:35 Blood - Peripheral Aerobic Blood Culture - Final No growth in 5 days 11/15/17 12:35 Blood - Peripheral Anaerobic Blood Culture - Final No growth in 5 days Lab - Hematology Results 11/20/17 11/21/17 05:30 03:35 WBC 12.0 H 11.9 H RBC 2.57 L 2.28 L Hgb 7.6 L 6.4 L* Hct 21.6 L 19.4 L* MCV 84.2 85.1 MCH 29.6 27.9 MCHC 35.1 32.8 RDW 18.2 H 17.5 H Plt Count 56 L 55 L MPV 7.8 8.4 Lab - Chemistry Results 11/20/17 11/20/17 11/21/17 00:15 05:30 00:48 Sodium 137 Potassium 4.3 Chloride 108 H Carbon Dioxide 17.2 L Anion Gap 12 BUN 57 H Creatinine 2.48 H Estimated GFR 25 L POC Glucose 100 95 Random Glucose 87 Calcium 7.6 L D Phosphorus 3.2 Magnesium 1.7 11/21/17 03:35 Sodium 140 Potassium 4.3 Chloride 109 H Carbon Dioxide 17.2 L Anion Gap 14 BUN 61 H Creatinine 2.47 H Estimated GFR 25 L POC Glucose Random Glucose 73 L Calcium 8.4 L D Phosphorus 3.9 Magnesium 1.8 Imaging: ITS Impressions Tibia/Fibula X-Ray 09/27/17 00:00 CONCLUSION: No acute left leg abnormality is identified. Abdomen/Pelvis CT 09/27/17 08:10 CONCLUSION: 1. Mild hepatic steatosis. 2. Thickening of the colon secondary to lack of distention versus colitis. 3. Left lower lobe consolidation and/or atelectasis. There does appear to be a 1.4 cm cavitary area which makes consolidation likely. Chest CTA 09/27/17 08:22 CONCLUSION: 1. No pulmonary embolus. 2. Consolidation or atelectasis at the left lower lobe. Knee CT 10/18/17 00:00 CONCLUSION: 1. Small joint effusion. 2. Nonspecific subcutaneous edema in the subcutaneous soft tissues above and below the knee. 3. No significant changes compared to the prior exam. Ankle X-Ray 10/19/17 00:00 CONCLUSION: 1. No acute fracture or dislocation. Knee X-Ray 10/19/17 00:00 CONCLUSION: 1. Total knee prosthesis in place. 2. Moderate-sized knee joint effusion. Head CT 11/10/17 00:00 CONCLUSION: 1. Interval enlargement of the ventricular system of uncertain etiology. There is no clear evidence of an obstructing process. 2. Otherwise stable evaluation without evidence of acute infarct, hemorrhage, mass or edema. . Venous Doppler Study 11/10/17 00:00 CONCLUSION: 1. No venous thrombosis is identified within either lower extremity. 2. As described above, secondary to open wounds, the left external iliac, common femoral vein, and greater saphenous veins were not adequately evaluated. Head MRI 11/11/17 00:00 CONCLUSION: 1. Motion artifact is present throughout the scan. 2. Examination is diagnostic. 3. No evidence of acute infarct, hemorrhage, mass or edema. PICC Line Insertion 11/11/17 08:51 CONCLUSION: 1. Uncomplicated central venous Power PICC line placement. 2. The PICC line can be used immediately. Chest X-Ray 11/20/17 06:00 CONCLUSION: 1. Endotracheal tube in appropriate position with tip measuring 3.9 cm from the shaka. 2. Stable patchy airspace opacity at the left lung base. Physical Exam: GENERAL: On the vent, NAD. Has warming blanket. Not following commands. Not fully open and eyes. HEENT: Pupils reactive to light. Extraocular movements intact. No icterus. Orally intubated NECK: Supple without adenopathy. No swelling. LUNGS: Decreased breath sounds. HEART: Regular S1 and S2. ABDOMEN: Obese, soft. Nontender. Groin and abdominal area with sutures in place and dressing with some weeping of serous discharge noted.Tunneling noted in the center of the abdomen. There is a large open wound in medial upper L thigh, no purulence. Sacral area with abrasion noted. EXTREMITIES: Diffuse edema of the extremities. SKIN: No diffuse rash. NEUROLOGIC: Sedated. Moving extremities. Not following commands. PSYCH: Unable to assess LINE: No evidence of infection Assessment and Plan - Plan IMPRESSION: Sepsis. Neutropenic sepsis on admission Abdominal fold cellulitis/skin breakdown. Post incision and debridement and closure of skin fold. General surgery following. s/p panniculectomy. Groin cellulitis, Mons pubis cellulitis/skin breakdown. Leucopenia, pancytopenia: ? MTX, ? Psych meds, ? Sepsis contributing. resolved. Left knee hardware in place. CT with fluid collection. Left knee infection - prior wound culture had Pseudomonas and group B beta strep. PSAE, VRE and Susy glabrata infection of the abdominal wound. Severe Cdiff - Positive PCR C. difficile. Acute resp failure, likely aspiration PNA Acute metabolic encephalopathy: sepsis. RECOMMENDATIONS: Continue Zyvox for MRSA and VRE coverage Continue Meropenem for broader GNR coverage till cultures finalized. Continue Micafungin IV for c.glabrata infection and concern for new line fungemia. Continue po Vanco for C diff. Continue Dificid for severe Cdiff as patient on concomitant antibiotics. Follow blood cultures. Monitor progress D/W VAN
--- NOTE | 2017-11-21 14:40 | P.EN ---
Family meeting note The patient's , adult daughter, [id number], palliative care WORKING MANAGER and director social service, RN, resident, and myself had a long discussion today about Maryanne. I provided the family with a broad overview of her current issues, including her extensive wounds, multiple infections (MRSA, VRE, C diff, fungal wound infection), poor nutrition, vent-dependent respiratory failure, etc. I went into detail regarding the aggressive care she has received, and continued to receive, and explained that even despite this, she continues to decline. I explained that there are no more aggressive options for us to try, as she is already on the strongest antibiotics available and has already had extensive surgical debridement. We discussed a number of options moving forward: to transition the patient to hospice/ comfort-based measures; to continue the current treatment she is receiving, but not to perform chest compressions/ defibrillation/ administer medications if she were to progress to cardiac arrest ; or to continue the current treatment and perform CPR in the event of cardiac arrest. I explained that, if she were to suffer a cardiac arrest, there is a very high likelihood that even with CPR she would not survive, and if she did that she would still be facing all of the current medical problems plus any complications from an arrest (i.e., broken ribs, lung contusions, hypoxia). Her daughter and [id number] both stated that the patient would "not want to suffer" but her would like to discuss these options with his son before making any decisions regarding code status. It is my impression that the family is now beginning to understand the extent and severity of Maryanne's illness. At the end of our meeting, I made a tentative plan with the patient's to reconvene for another meeting on Sunday, 11/23, to follow up with their discussions as a family and to answer any additional questions they may have. They were encouraged to contact palliative care if they have any questions or make any decisions in the interim. I spent no less than 60 minutes having this conversation with the family.
--- NOTE | 2017-11-21 16:51 | P.PNPAL ---
Reason for Visit Reason for visit: a. To assist with evaluation and management of symptoms including: dyspnea, pain. b. To assist medical decision maker(s) with: better understanding of current medical conditions; weighing benefits/burdens of medical treatment options; making medical treatment decisions. Subjective Subjective/Interval History: Patient seen and examined in ICU. No family present at time of exam. Discussed with nurse, Teodora and Dr. Mcleod. Patient remains sedated on mech vent, FiO2 40%. She does not respond to my voice or exam. No sign agitation or pain. Respirations appear mildly labored on vent. Abdominal and groin wounds are dressed, unable to visualize wounds today. Clinical data: * Hypothermic Jatin hugger in place for temps 96.6 * Tachycardic rate 100-125 in past 24 hours. * WBC 11.9, hemoglobin 6.4, hematocrit 19.4, platelet count 55 * Sodium 140, potassium 4.3, chloride 109, carbon dioxide 17.2, BUN 61, creatinine 2.47, GFR 25, glucose 73 * No new imaging today. Remains on Dificid for C. diff. Also on Meropenem, Micafungin, Vancomycin and Zyvox. Discussed with Dr. Mcleod and Dr. Devine and nurse, Teodora again post family meeting. Family/Friend Interactions: Family meeting: Attended meeting: patient's (Emile), adult daughter (Heidi), mother-in- law. Also present Shahla Baeza LCSW, Dr. Mcleod, Dr. Devine and VAN Araiza. * Dr. Mcleod provided medical update including extensive wounds, multiple infections (MRSA, VRE, C diff, fungal wound infection), poor nutrition, vent- dependent respiratory failure, etc. She explained that patient condition continues to decline despite aggressive care. * We reviewed poor prognosis and that patient is not expected to survive this hospitalization. * We discussed options moving forward: 1. CODE status - family understands if patient were to suffer a cardiac arrest, there is a very high likelihood that even with CPR she would not survive, and if she did that current problems would likely be worse in addition to complications from resuscitation (i.e., broken ribs, lung contusions , hypoxia). Family considering DNR status, spouse was not yet ready to make this decision until he speaks with other family. 2. Transition the patient to comfort focused care with compassionate withdrawal of life support. Brief anticipatory guidance provided. 3. Continue the current level of treatment without further escalation of care allowing her to when it's her time 4. Continue all aggressive measures including FULL CODE status. In summary, family is verbalizing desire for peace and comfort, not wanting her to suffer. Spouse needs to speak with his son and other family members before making any decisions today. Provided palliative care cell number should other family members have questions or should they decide to change code status. Will plan to meet family again on 11/23/17 unless that wish to meet sooner. Family is very appreciative of time spent today and state they feel the have a better understanding of all that is going on now. Spouse seems to be grieving the loss of his of 37 years, will have Shahla Baeza LCSW continue to follow family for support. Offered time for life review. I agree with Dr. Mcleod that the family is now beginning to understand the extent and severity of Maryanne's illness. Objective Vital Signs: Vital Signs 11/20/17 16:18 11/20/17 16:30 11/20/17 16:31 Temperature 98.6 F Pulse Rate 114 H Respiratory Rate 16 16 22 Blood Pressure 117/56 L Pulse Oximetry 100 100 11/20/17 17:00 11/20/17 17:30 11/20/17 18:00 Temperature 98.2 F 98.1 F 97.7 F Pulse Rate 114 H 109 H 106 H Respiratory Rate 16 17 24 Blood Pressure 113/55 L 115/56 L 114/58 L Pulse Oximetry 100 100 100 11/20/17 18:30 11/20/17 19:00 11/20/17 19:01 Temperature 97.2 F L 96.8 F L 96.8 F L Pulse Rate 104 H 106 H 106 H Respiratory Rate 16 16 16 Blood Pressure 124/58 L 124/59 L Pulse Oximetry 100 100 100 11/20/17 20:00 11/20/17 20:15 11/20/17 22:00 Temperature 97.9 F Pulse Rate 108 H 116 H Respiratory Rate 16 16 Blood Pressure 115/57 L Pulse Oximetry 100 100 11/20/17 23:48 11/21/17 00:00 11/21/17 02:00 Temperature 98.9 F Pulse Rate 116 H 111 H Respiratory Rate 16 21 Blood Pressure 111/55 L Pulse Oximetry 100 100 11/21/17 04:00 11/21/17 04:57 11/21/17 06:00 Temperature 96.6 F L Pulse Rate 107 H 100 H Respiratory Rate 18 16 Blood Pressure 118/59 L Pulse Oximetry 100 100 11/21/17 07:37 11/21/17 08:00 11/21/17 10:00 Temperature 97.7 F Pulse Rate 111 H 115 H Respiratory Rate 16 Blood Pressure Pulse Oximetry 100 11/21/17 10:51 11/21/17 11:10 11/21/17 12:00 Temperature 98.7 F 98.7 F Pulse Rate 123 H 115 H Respiratory Rate 17 16 Blood Pressure 130/60 Pulse Oximetry 100 100 11/21/17 13:01 11/21/17 14:00 Temperature 98.6 F Pulse Rate 112 H 115 H Respiratory Rate Blood Pressure 114/58 L Pulse Oximetry 100 Intake & Output 11/20/17 11/21/17 11/21/17 18:59 06:59 18:59 Intake Total 1918 / 1918 1747 / 1747 1949 Output Total 1525 / 1525 1500 / 1500 Balance 393 / 393 247 / 247 1949 Weight 118.1 kg Intake: IV 1160 / 1160 1260 / 1260 1150 / 1150 Diprivan 1000 mg/100 ml Inj 1, 310 / 310 410 / 410 200 / 200 000 mg In 100 ml @ 5 MCG/KG/MIN 3.261 mls/hr IV.CONT TITRATE PRN Rx#:[id number] Flexbumin 25% Inj 100 ML @ 60 100 / 100 200 / 200 100 / 100 mls/hr IV.SIG Q8H [facility] Rx#: [id number] Zyvox 600 mg Premix 300 ML @ 300 / 300 300 / 300 300 / 300 300 mls/hr IV.SIG Q12H [facility] Rx#: [id number] Magnesium Sulfate Inj 2 GM In 100 / 100 NS Inj 96 ML @ 50 mls/hr IV.SIG ONCE ONE Rx#:[id number] Merrem Inj 1,000 MG In NS Inj 100 / 100 100 / 100 100 / 100 100 ML @ 200 mls/hr IV.SIG Q12H [facility] Rx#:[id number] Mycamine Inj 100 MG In NS Inj 100 / 100 100 / 100 100 ML @ 100 mls/hr IV.SIG Q24H [facility] Rx#:[id number] fentaNYL 10 mcg/mL Premix Drip 250 / 250 250 / 250 250 / 250 2,500 mcg In 250 ml @ 50 MCG/HR 5 mls/hr IV.SIG TITRATE PRN Rx #:[id number] Oral 0 / 0 Oral Supplement 0 / 0 Tube Feeding 638 / 638 487 / 487 Tube Irrigant 0 / 0 Water Bolus Amount 120 / 120 0 / 0 Anesthesia Amount 0 / 0 Other 0 / 0 Intake (Blood Product) Amt 800 / 800 Rbc As-3 Leukoreduced Unit 400 / 400 [id number] Rbc As-3 Leukoreduced Unit 400 / 400 [id number] Output: Urine 0 / 0 Stool 1000 / 1000 950 / 950 Urine/Stool Mix 0 / 0 Estimated Blood Loss 0 / 0 Urine Amount (Catheter) 525 / 525 550 / 550 Indwelling Urethral Catheter 525 / 525 550 / 550 Wound Drainage 0 / 0 ZAMZAM Drain 0 / 0 Other: Other Intake Source Saline Solution # Voids 0 # Incontinent Voids 0 Date of Last Bowel Movement 11/20/17 11/20/17 11/21/17 # Bowel Movements 0 # Incontinent Bowel Movements 0 # Emeses 0 # Oral Regurgitations 0 Physical Exam: TUBES/LINES/DRAINS: ETT, OG, PIV, rectal tube with liquid stool, herrera. SKIN: No jaundice, rashes, or lesions. No wounds seen anteriorly. HEAD: Atraumatic. Normocephalic. EYES:eyes closed. ENT: Nose without bleeding or purulent drainage. Bite block in mouth. Unable to visualize oral cavity. CARDIOVASCULAR: RRR without murmurs, gallops, or rubs. No JVD. Peripheral pulses symmetric. RESPIRATORY/CHEST: Symmetric, unlabored respirations. no adventitious lung sounds auscultated GASTROINTESTINAL: Abdomen obese, BS hypoactive. wounds bandaged, some dressings moist MUSCULOSKELETAL: generalized pitting edema. +LUE wound antecubital region. NEUROLOGICAL: sedated on vent Diagnostic Tests Laboratory: Laboratory Results - last 72 hr 11/16/17 11/18/17 11/18/17 15:10 19:15 23:21 WBC RBC Hgb Hct MCV MCH MCHC RDW Plt Count MPV Puncture Site Patient Temperature O2 Saturation ABG pH ABG pCO2 ABG pO2 ABG HCO3 ABG O2 Content ABG Base Excess ABG Methemoglobin Kirk Test Hemoglobin Carboxyhemoglobin O2 Delivery Device Vent Setting Inspired O2 Critical Value Sodium Potassium Chloride Carbon Dioxide Anion Gap BUN Creatinine Estimated GFR POC Glucose 93 103 Random Glucose Calcium Phosphorus Magnesium Prealbumin Blood Type Antibody Screen MTS Gel Crossmatch See Detail 11/19/17 11/19/17 11/19/17 04:30 04:30 04:52 WBC 14.4 H RBC 2.83 L Hgb 7.9 L Hct 23.5 L MCV 82.9 MCH 28.0 MCHC 33.8 RDW 17.7 H Plt Count 75 L MPV 7.8 Puncture Site Right radial Patient Temperature 98.6 O2 Saturation 96 ABG pH 7.27 L* ABG pCO2 34 L ABG pO2 140 H ABG HCO3 15 L* ABG O2 Content 15.0 ABG Base Excess -10.2 L ABG Methemoglobin 1.9 Kirk Test Present Hemoglobin 11.0 L Carboxyhemoglobin 0.7 O2 Delivery Device Ventilator Vent Setting Prvc / ac / Inspired O2 35 Critical Value Yes Sodium 143 Potassium 4.7 Chloride 112 H Carbon Dioxide 17.8 L Anion Gap 13 BUN 60 H Creatinine 2.82 H Estimated GFR 21 L POC Glucose Random Glucose 81 Calcium 8.5 Phosphorus 3.2 Magnesium 1.8 Prealbumin 10 L Blood Type Antibody Screen MTS Gel Crossmatch 11/19/17 11/19/17 11/20/17 13:28 16:24 00:15 WBC RBC Hgb Hct MCV MCH MCHC RDW Plt Count MPV Puncture Site Right radial Right radial Patient Temperature 98.6 98.6 O2 Saturation 96 95 ABG pH 7.27 L* 7.26 L* ABG pCO2 35 L 37 L ABG pO2 160 H 140 H ABG HCO3 16 L* 16 L* ABG O2 Content 16.6 9.8 L ABG Base Excess -10.0 L -9.7 L ABG Methemoglobin 1.6 2.0 Kirk Test + + Hemoglobin 12.0 7.0 L* Carboxyhemoglobin 0.7 1.0 O2 Delivery Device Ventilator Ventilator Vent Setting See comments See comments Inspired O2 35 35 Critical Value Yes Yes Sodium Potassium Chloride Carbon Dioxide Anion Gap BUN Creatinine Estimated GFR POC Glucose 100 Random Glucose Calcium Phosphorus Magnesium Prealbumin Blood Type Antibody Screen MTS Gel Crossmatch 11/20/17 11/20/17 11/20/17 05:29 05:30 05:30 WBC 12.0 H RBC 2.57 L Hgb 7.6 L Hct 21.6 L MCV 84.2 MCH 29.6 MCHC 35.1 RDW 18.2 H Plt Count 56 L MPV 7.8 Puncture Site Right radial Patient Temperature 98.6 O2 Saturation 96 ABG pH 7.26 L* ABG pCO2 35 L ABG pO2 161 H ABG HCO3 15 L* ABG O2 Content 11.4 L ABG Base Excess -10.5 L ABG Methemoglobin 1.8 Kirk Test Present Hemoglobin 8.2 L Carboxyhemoglobin 0.7 O2 Delivery Device Ventilator Vent Setting Prvc/ ac Inspired O2 35 Critical Value Yes Sodium 137 Potassium 4.3 Chloride 108 H Carbon Dioxide 17.2 L Anion Gap 12 BUN 57 H Creatinine 2.48 H Estimated GFR 25 L POC Glucose Random Glucose 87 Calcium 7.6 L D Phosphorus 3.2 Magnesium 1.7 Prealbumin Blood Type Antibody Screen [facility] Gel Crossmatch 11/21/17 11/21/17 11/21/17 00:48 03:35 03:35 WBC 11.9 H RBC 2.28 L Hgb 6.4 L* Hct 19.4 L* MCV 85.1 MCH 27.9 MCHC 32.8 RDW 17.5 H Plt Count 55 L MPV 8.4 Puncture Site Patient Temperature O2 Saturation ABG pH ABG pCO2 ABG pO2 ABG HCO3 ABG O2 Content ABG Base Excess ABG Methemoglobin Kirk Test Hemoglobin Carboxyhemoglobin O2 Delivery Device Vent Setting Inspired O2 Critical Value Sodium 140 Potassium 4.3 Chloride 109 H Carbon Dioxide 17.2 L Anion Gap 14 BUN 61 H Creatinine 2.47 H Estimated GFR 25 L POC Glucose 95 Random Glucose 73 L Calcium 8.4 L D Phosphorus 3.9 Magnesium 1.8 Prealbumin Blood Type Antibody Screen MTS Gel Crossmatch 11/21/17 11/21/17 11/21/17 05:01 08:15 12:08 WBC RBC Hgb Hct MCV MCH MCHC RDW Plt Count MPV Puncture Site Right radial Patient Temperature 98.6 O2 Saturation 91 ABG pH 7.28 L* ABG pCO2 34 L ABG pO2 66 ABG HCO3 15 L* ABG O2 Content 8.4 L ABG Base Excess -10.3 L ABG Methemoglobin 2.0 Kirk Test Present Hemoglobin 6.5 L* Carboxyhemoglobin 1.1 O2 Delivery Device Ventilator Vent Setting Prvc/ ac Inspired O2 40 Critical Value Yes Sodium Potassium Chloride Carbon Dioxide Anion Gap BUN Creatinine Estimated GFR POC Glucose 90 Random Glucose Calcium Phosphorus Magnesium Prealbumin Blood Type O Positive Antibody Screen Negative MTS Gel Crossmatch See Detail Result Diagrams: 11/21/17 03:35 11/21/17 03:35 Microbiology: Microbiology 11/20/17 12:36 Aerobic Blood Culture - Preliminary Blood - Line No growth in 1 day Anaerobic Blood Culture - Preliminary No growth in 1 day 11/20/17 12:28 Aerobic Blood Culture - Preliminary Blood - Line No growth in 1 day Anaerobic Blood Culture - Preliminary No growth in 1 day 10/09/17 15:49 Acid Fast Bacilli Smear - Final Tissue - Abdominal No acid fast bacilli seen Mycobacterial Culture - Final No growth in 6 weeks 11/15/17 13:10 Aerobic Blood Culture - Final Blood - Line No growth in 5 days Anaerobic Blood Culture - Final No growth in 5 days 11/15/17 12:30 Aerobic Blood Culture - Final Blood - Peripheral No growth in 5 days Anaerobic Blood Culture - Final No growth in 5 days 11/15/17 12:35 Aerobic Blood Culture - Final Blood - Peripheral No growth in 5 days Anaerobic Blood Culture - Final No growth in 5 days Imaging: Tibia/Fibula X-Ray 09/27/17 00:00 CONCLUSION: No acute left leg abnormality is identified. Abdomen/Pelvis CT 09/27/17 08:10 CONCLUSION: 1. Mild hepatic steatosis. 2. Thickening of the colon secondary to lack of distention versus colitis. 3. Left lower lobe consolidation and/or atelectasis. There does appear to be a 1.4 cm cavitary area which makes consolidation likely. Chest CTA 09/27/17 08:22 CONCLUSION: 1. No pulmonary embolus. 2. Consolidation or atelectasis at the left lower lobe. Knee CT 10/18/17 00:00 CONCLUSION: 1. Small joint effusion. 2. Nonspecific subcutaneous edema in the subcutaneous soft tissues above and below the knee. 3. No significant changes compared to the prior exam. Ankle X-Ray 10/19/17 00:00 CONCLUSION: 1. No acute fracture or dislocation. Knee X-Ray 10/19/17 00:00 CONCLUSION: 1. Total knee prosthesis in place. 2. Moderate-sized knee joint effusion. Head CT 11/10/17 00:00 CONCLUSION: 1. Interval enlargement of the ventricular system of uncertain etiology. There is no clear evidence of an obstructing process. 2. Otherwise stable evaluation without evidence of acute infarct, hemorrhage, mass or edema. . Venous Doppler Study 11/10/17 00:00 CONCLUSION: 1. No venous thrombosis is identified within either lower extremity. 2. As described above, secondary to open wounds, the left external iliac, common femoral vein, and greater saphenous veins were not adequately evaluated. Head MRI 11/11/17 00:00 CONCLUSION: 1. Motion artifact is present throughout the scan. 2. Examination is diagnostic. 3. No evidence of acute infarct, hemorrhage, mass or edema. PICC Line Insertion 11/11/17 08:51 CONCLUSION: 1. Uncomplicated central venous Power PICC line placement. 2. The PICC line can be used immediately. Chest X-Ray 11/20/17 06:00 CONCLUSION: 1. Endotracheal tube in appropriate position with tip measuring 3.9 cm from the shaka. 2. Stable patchy airspace opacity at the left lung base. Procedures: 10/09 underwent I&D of abdominal wall and bilateral thighs, wound VAC placement 10/12 incision and drainage with debridement abdominal wall and bilateral lower thighs, wound VAC change 10/15 wound VAC change and closure of abdominal wall 11/01 I&D abdomen, bilateral thighs 11/12 intubated Assessment and Plan - Disease Oriented Problem List (1) Pneumonia (2) Cellulitis of knee, left (3) Prosthetic joint infection (4) Nutrition, metabolism, and development symptoms (5) Diarrhea (6) Schizophrenia (7) Hypertension (8) Fungal infection of skin of abdomen Pertinent Non-Medical Issues: Psychosocial: Pt is , has 2 children. She is unemployed. Originally from [place], [place], has been in [place] for nearly 40y. Has been 34 years. Spiritual: Gnosticism. Used to go to religion but not as much in recent past. Desires pastoral care. Legal: Pt not capacitated to make medical decisions. Per [place] statutes medical decision making falls to her as proxy. Ethical issues impacting care:none Important Contacts: Emile Mcclain Jr [phone], spouse/HCP Emile Mcclain III [phone], son Prognosis: This is a 52-year-old morbidly obese lady with history of mental illness, rheumatoid arthritis who presented 09/27 with shortness of breath, diarrhea, abdominal pain, change in mental status and was found to have multiple infected wounds in her abdomen, groin, and left knee. She is recently status post left knee replacement in July of this year. She has had multiple I&D's of her abdominal wound, fell causing dehiscence of those wounds and her left knee wound , was on TPN, has been having hypoglycemia, now is in [facility]. Given her morbid obesity, multiple co morbidities, worsening wound infections, poor nutrition status, her prognosis is poor. Code Status: Full Code Plan: - LEGAL DECISON MAKER -patient is not capacitated to make medical decisions. Per [place] statutes medical decision making would fall to her as proxy - CODE STATUS-full code - GOALS - Family meeting summary: family is verbalizing desire for peace and comfort, not wanting her to suffer. Spouse needs to speak with his son and other family members before making any decisions today. Family is considering transition to comfort vs. continued aggressive care and CODE status. Provided palliative care cell number should other family members have questions or should they decide to change code status. Will plan to meet family again on unless that wish to meet sooner. Family is very appreciative of time spent today and state they feel the have a better understanding of all that is going on now - SYMPTOMS - * pain - acute and chronic, multifactorial. Has hx RA, s/p knee repalcement 2017, now s/p multiple I&D procedures for mult infected wounds. now sedated on vent, worsening abd wounds, dehiscence. on fentanyl drip. No further recommendations at this time, continue current meds. * debility - hx RA, morbidly obese, now with prolonged hospital stay. had increasing need for assistance at home ambulating and performing ADLs. Pain, persistent infections will be barrier to any aggressive rehab, she has already been bedbound for over a month and deconditioning. * SOB - originally presented with SOB. multifactorial. morbidly obese, at risk for OHS. now intubated on vent. stable CXR. FiO2 35%. has been hypotensive. BP today at noon was 85/53. * agitation/anxiety - acute and chronic. hx bipolar, anxiety. Takes duloxetine , mirtazipine, buspirone at home, trazodone to sleep. propofol increased f to 32 ml/hr. additionally has has PRn haldol here. Psych following, poss delirium. meds per psych - d/w CCM Dr Mcleod, Dr. Devine and nursing staff. - Palliative care will continue to follow during hospital course as condition evolves, to assist patient/decision-maker with understanding of medical conditions, weighing benefits/burdens of treatment options, for clarification of goals of treatment. Additionally will assist with any symptoms of palliative concern Attestation Attestation: To help prompt me to consider important information that might be impacting today's encounter and assessment, information from prior notes written by myself or my colleagues may have been "brought forward" into today's note. My signature on this note, however, is an attestation that I personally performed the exam, history, and/or decision-making noted today, and, unless otherwise indicated, the interactions with patient, family, and staff as well as the review of records all occurred today. I also attest that the listed assessment and stated plan reflect my best clinical judgment today based on the combination of historical information, prior notes, and today's exam/ interactions. When time spent is documented, it refers only to time spent today by the signer, or if indicated, combined time spent today by collaborating physician/nurse practitioner.
[2017-11-21] MEDS: Mirtazapine 15 MG Tablet PO SCH (20:10)
[2017-11-21] MEDS: traZODone 100 MG Tablet PO SCH (20:20)
[2017-11-22] MEDS: Insulin NovoLOG Aspart Correctional Sugar Inj SQ SCH ×4 (01:46→17:10)
[2017-11-22] MEDS: Oral Hygiene Kit OROPHARYNG SCH ×4 (01:47→17:09)
[2017-11-22] MEDS: Albumin Human 25% Inj 100 ML IV.SIG SCH ×3 (02:59→17:09)
--- NOTE | 2017-11-22 03:36 | XR ---
EXAM DATE: 11/22/2017 3:22 AM EDT AGE/SEX: 52 years / Female INDICATIONS: Shortness of breath, possible pulmonary disease. CLINICAL DATA: This is the patient's subsequent encounter. Patient reports that signs and symptoms h ave been present for 2 weeks and indicates a pain score of Nonresponsive. MEDICAL/SURGICAL HISTORY: Hypertension. Osteoarthritis. Renal insufficiency, chronic. Fusion, cervical. Hysterectomy. section. COMPARISON: [facility], CHEST 1V SINGLE AP, 11/20/2017. . FINDINGS: Portable AP view of the chest demonstrates a normal-sized cardiac silhouette. Endotracheal tube and n asogastric tube remain present. ETT tip measures 10 mm from the shaka. Left upper extremity PICC is present with tip in the region of the brachiocephalic vein. EKG lines overlie the patient. Lungs are underinflated and there is a small left basilar pleural-parenchymal opacity with blunting left costop hrenic sulcus. Right lung demonstrates a stable appearance. No pneumothorax is identified. CONCLUSION: 1. Stable chest x-ray with a mild airspace opacity in the left lung base with blunting of the costop hrenic sulcus suggesting small pleural effusion. 2. Endotracheal tube tip measures 1 cm from the shaka. Electronically signed by: Thor Corral MD 11/22/2017 3:35 AM EDT
[2017-11-22 04:20] LABS: Hematocrit 25.9 % (35.0-46.0); Hemoglobin 8.7 gm/dL (11.6-15.3); Mean Corpuscular HGB Conc 33.5 % (32.0-36.0); Mean Corpuscular Hemoglobin 28.9 pg (27.0-34.0); Mean Corpuscular Volume 86.1 fL (80.0-100.0); Mean Platelet Volume 8.4 fL (7.0-11.0); Platelet Count 43 th/mm3 (150-450); Red Cell Distribution Width 17.2 % (11.6-17.2); White Blood Count 11.7 th/mm3 (4.0-11.0)
[2017-11-22 04:31] LABS: ABG Base Excess -10.7 mmol/L (-2-2); ABG PCO2 37 mmHg (38-42); ABG PO2 187 mmHG (61-120)
[2017-11-22 04:37] LABS: Calcium 8.8 mg/dL (8.5-10.1); Magnesium 2.1 mg/dL (1.5-2.5); Phosphorus 4.7 mg/dL (2.5-4.9); Potassium 4.1 meq/L (3.5-5.1)
[2017-11-22] MEDS: Heparin - SQ 10,000 UNITS/ML Vial SQ SCH ×4 (05:08→23:31)
[2017-11-22] MEDS: Propofol 1000 mg/100 ml Inj 1,000 MG/100 ML BOTTLE IV.CONT PRN ×4 (05:13→18:27)
--- NOTE | 2017-11-22 07:51 | P.PNCC ---
Subjective Subjective Remarks/Hospital Course: This is a 52-year-old female with a very complex medical history who was admitted back in September 2017 for postoperative wound infection from her total knee arthroplasty. Her course has been complicated by multiple necrotizing soft tissue infections. She additionally has failure to thrive and severe acute protein calorie malnutrition for which she has been on total parenteral nutrition. She intermittently becomes agitated and pulls out her IV access. Today she was on the floor when she became worsening the febrile and altered. She pulled out her own PICC line overnight, and nursing staff was unable to reobtain IV access. Because she was off TPN she became quite hypoglycemic which was refractory to non-intravenous methods of glucose administration. Urgently a new PICC line was placed by interventional radiology and she was given IV dextrose. When her glucose improved, her mental status improved as well. She is transferred to the ICU for management of worsening recurrent sepsis, worsening wound infection, and hypoglycemia. When I evaluated the patient, she was more awake, nonfocal, moving all extremities. She endorses fatigue, but denies other symptoms. She specifically denies chest pain, shortness of breath, fever, chills, nausea, vomiting, abdominal pain. She does endorse diarrhea and has a rectal tube in place. She has a recent history of active C. difficile infection. Remainder of the review systems is negative unless otherwise stated. 11/12: Lying in bed no acute distress intermittently confused but follows commands, pleasant. WBC count stable at 11.7. On TPN hypoglycemia has resolved. Discussed with Dr. Schneider 11/13: Intubated and placed on mechanical ventilation yesterday evening for desaturation and lack of airway protection. Creatinine has increased to 1.5 potassium is 2.8 getting replaced. On light sedation patient does follow commands. Antibiotics have been broadened to Zyvox meropenem and Levaquin and micafungin. Continue p.o. vancomycin for C Diff 11/14: Patient intubated sedated with propofol. Wakes up follows some commands but did not tolerate CPAP due to tachypnea. WBC count worsening currently 15.1. Also worsening creatinine 1.8. Some evidence of worsening wound infection in the lower abdomen pelvic region. Lower abdominal and left thigh incisions with increasing drainage 11/15: Remains intubated, sedated, becoming more septic and hypothermic. WBC count is 15.7 creatinine is 1.9 meets criteria for severe C. difficile colitis. Infectious disease following, currently on p.o. vancomycin for C. difficile ID is adding Dificid to the regimen. If not clinically improving need CT of the abdomen pelvis. Worsening sepsis most likely from worsening C. difficile than wound infection 11/16: Continued persistent hypotension. Discussed with Surgical Service. Acts like continued septic course. No other major changes. Will require transfusion soon. Subjective 11/17: Low-grade temperatures overnight. Tube feeds currently at goal of 50 cc an hour with vital 1.5. Positive BM. Hemoglobin currently 8.4. 11/18: no real improvements or changes. still failing vent weaning. 11/19: Hypothermic, requiring warming blanket. Continued vent dependent respiratory failure. Continued metabolic derangements requiring fluid resuscitation. 11/20: Patient continues to have several liters of insensible losses per day via wound drainage and diarrhea. I started her on scheduled albumin overnight with no improvement in metabolic acidosis or base deficit. She continued to be hypothermic overnight. 11/21: Continued metabolic acidosis/ base deficitemia. Hg 6.5 this morning with no obvious source of bleeding. Family meeting today at 1 PM to discuss the patient's current status, prognosis, and to discuss goals of care. 11/22: Family meeting held yesterday, please see Event Note. No decisions thus far regarding code status. I explained to the family that there are no additional medical or surgical options available to offer that the patient has not already received. She continues to be tachycardic, hypothermic, and acidotic ; there has been no improvement over the past several days. She requires around the clock albumin and constant rewarming via Jatin Hugger in order to maintain normothermia. Objective Vital Signs / I&O: Vital Signs 11/21/17 08:00 11/21/17 08:30 11/21/17 09:00 Temperature 97.7 F 97.9 F 98.1 F Pulse Rate 111 H 111 H 111 H Respiratory Rate 16 16 16 Blood Pressure 112/57 L 115/58 L 116/58 L Pulse Oximetry 100 100 100 11/21/17 09:30 11/21/17 10:00 11/21/17 10:30 Temperature 98.2 F 98.4 F 98.6 F Pulse Rate 115 H 115 H 123 H Respiratory Rate 16 16 16 Blood Pressure 120/57 L 121/56 L 130/60 Pulse Oximetry 100 100 100 11/21/17 10:51 11/21/17 11:00 11/21/17 11:10 Temperature 98.7 F 98.8 F Pulse Rate 123 H 120 H Respiratory Rate 17 15 16 Blood Pressure 130/60 121/57 L Pulse Oximetry 100 100 100 11/21/17 11:30 11/21/17 12:00 11/21/17 12:30 Temperature 98.8 F 98.8 F 98.8 F Pulse Rate 114 H 115 H 115 H Respiratory Rate 19 17 19 Blood Pressure 113/57 L 111/59 L 126/59 L Pulse Oximetry 100 100 100 11/21/17 13:00 11/21/17 13:01 11/21/17 13:30 Temperature 98.6 F 98.6 F 98.6 F Pulse Rate 113 H 112 H 112 H Respiratory Rate 17 16 Blood Pressure 114/59 L 114/58 L 117/56 L Pulse Oximetry 100 100 100 11/21/17 14:00 11/21/17 14:30 11/21/17 15:00 Temperature 98.4 F 98.4 F 98.4 F Pulse Rate 115 H 113 H 112 H Respiratory Rate 16 17 16 Blood Pressure 123/61 124/58 L 126/60 Pulse Oximetry 100 100 100 11/21/17 15:30 11/21/17 16:00 11/21/17 16:18 Temperature 98.4 F 98.4 F Pulse Rate 114 H 113 H Respiratory Rate 16 18 16 Blood Pressure 125/59 L 125/60 Pulse Oximetry 100 100 100 11/21/17 16:30 11/21/17 17:00 11/21/17 18:00 Temperature 98.4 F 98.6 F Pulse Rate 113 H 112 H 114 H Respiratory Rate 19 18 Blood Pressure 120/58 L 121/60 Pulse Oximetry 100 100 11/21/17 20:00 11/21/17 20:57 11/21/17 21:32 Temperature 98.6 F Pulse Rate 117 H Respiratory Rate 16 16 16 Blood Pressure 132/64 Pulse Oximetry 99 100 11/21/17 22:00 11/22/17 00:00 11/22/17 00:55 Temperature 98.7 F Pulse Rate 110 H 115 H Respiratory Rate 18 18 Blood Pressure 138/69 Pulse Oximetry 96 100 11/22/17 02:00 11/22/17 04:00 11/22/17 06:00 Temperature 98.4 F Pulse Rate 118 H 117 H 121 H Respiratory Rate 16 Blood Pressure 136/69 Pulse Oximetry 100 11/22/17 07:21 Temperature Pulse Rate Respiratory Rate 16 Blood Pressure Pulse Oximetry 100 Intake & Output 11/21/17 11/22/17 11/22/17 18:59 06:59 18:59 Intake Total 2829 / 2829 1136 / 1136 Output Total 1850 / 1850 1950 / 1950 Balance 979 / 979 -814 / -814 Weight 119 kg Intake: IV 1250 / 1250 460 / 460 Diprivan 1000 mg/100 ml Inj 1, 300 / 300 10 / 10 000 mg In 100 ml @ 5 MCG/KG/MIN 3.261 mls/hr IV.CONT TITRATE PRN Rx#:[id number] Flexbumin 25% Inj 100 ML @ 60 100 / 100 200 / 200 mls/hr IV.SIG Q8H [facility] Rx#: [id number] Zyvox 600 mg Premix 300 ML @ 300 / 300 300 mls/hr IV.SIG Q12H [facility] Rx#: [id number] Magnesium Sulfate Inj 2 GM In 100 / 100 NS Inj 96 ML @ 50 mls/hr IV.SIG ONCE ONE Rx#:[id number] Merrem Inj 1,000 MG In NS Inj 100 / 100 100 ML @ 200 mls/hr IV.SIG Q12H [facility] Rx#:[id number] Mycamine Inj 100 MG In NS Inj 100 / 100 100 ML @ 100 mls/hr IV.SIG Q24H [facility] Rx#:[id number] fentaNYL 10 mcg/mL Premix Drip 250 / 250 250 / 250 2,500 mcg In 250 ml @ 50 MCG/HR 5 mls/hr IV.SIG TITRATE PRN Rx #:[id number] Tube Feeding 659 / 659 676 / 676 Water Bolus Amount 120 / 120 Intake (Blood Product) Amt 800 / 800 Rbc As-3 Leukoreduced Unit 400 / 400 [id number] Rbc As-3 Leukoreduced Unit 400 / 400 [id number] Output: Stool 500 / 500 450 / 450 Urine Amount (Catheter) 1350 / 1350 1500 / 1500 Indwelling Urethral Catheter 1350 / 1350 1500 / 1500 Other: Date of Last Bowel Movement 11/21/17 Result Diagrams: 11/22/17 03:40 11/22/17 03:40 Objective Remarks: GENERAL: Intubated and sedated HEENT: NCAT, PERRL NECK: ETT and NGT present CHEST: Diminished mechanical breath sounds bilaterally CARDIOVASCULAR: Tachy to 110s/ 120s, regular ABDOMEN: Morbidly obese, soft, non-tender in all quadrants. Extensive wounds remain unchanged MUSCULOSKELETAL: Pitting anasarca to all extremities, unchanged NEUROLOGICAL: GCS 7T ([id number]) on sedation, RASS -2 Assessment and Plan - Assessment and Plan Plan: Assessment: 52-year-old female with an extensive recent medical history including multiple wound infections and severe acute protein calorie malnutrition who presents with recurrent severe sepsis and wound infection. Active problems: Severe Sepsis Acute hypoxemic respiratory failure Metabolic encephalopathy Severe sepsis Severe C diff colitis Deep tissue wound infection lower abdomen and perineum Severe hypoglycemia-resolved Elevated BMI Leukocytosis Normocytic anemia Thrombocytopenia Depressive disorder NOS Hyperlipidemia Acute kidney injury creatinine currently 2.48 Plan: NEURO: Sedated with propofol and fentanyl gtt for pain control. Continue mirtazapine 15 mg at night, trazodone 100 mg at night, apiriprazone 30 mg daily and buspirone 15 mg 3 times daily. Daily sedation vacation. CARDIO: Patient has persistent sinus tachycardia, likely secondary to infection/ anemia / SIRS Continue diltiazem and metoprolol for HTN RESP: Continues to fail spontaneous breathing trials after short periods of time secondary to tachypnea/ respiratory fatigue. ABG this morning 7.24/97843/15/- 10.7 Certainly not a candidate for tracheostomy due to poor nutrition and multi- system organ dysfunction F/E/N: Concentrated albumin for IV resuscitation- will continue again today to attempt to catch up with insensible losses Tube feeds at goal Unable to place PEG or PEJ due to severe protein calorie malnutrition and high likelihood of surgical complications TPN was discontinued due to ongoing issues with PICC line (has become dislodged several times, replaced most recently by IR, now in brachiocephalic vein) and ability to tolerate TFs : Creat stable, avoid nephrotoxic agents ID: Cultures from yesterday show no growth at 1 day, continuing on linezolid, merrem , micafungin, PO vanco, dificid Severe C. difficile Lower abdomen and perineal wound infections, general surgery and ID following HEME: Anemia and thrombocytopenia. Given 2U PRBCs yesterday for Hg of 6, platelets 40K. ENDO: Frequent glycemic checks, D50 for hypoglycemia Overall: The patient continues to have multi-system organ dysfunction despite our best efforts. There are no additional antibiotic or surgical debridement options available for her wounds as she is already on maximally aggressive therapy. She has multiple comorbidities, and each intervention that we perform exacerbates her other active issues (C diff complicating wounds, antibiotics for wounds complicating C diff, albumin to keep up with insensible losses complicating respiratory status, poor nutrition complicating insensible losses, etc.). She has an overall very poor prognosis. The palliative care service and myself are involved in continuing discussions with the family regarding goals of care. Famotidine for GI prophylaxis. SCDs/ SQH for DVT prophylaxis. Counseling/ Coordination of Care: Total critical care time: 41 minutes. This includes examining the patient, managing the patient's blood pressure and ventilator settings, ordering and interpreting radiology studies, ordering and interpreting laboratory studies, managing the patient's pain and sedation requirements, re-evaluation at frequent intervals, and documentation. All critical care time is separate and exclusive of procedures, teaching, and patient/ family updates.
[2017-11-22] MEDS: Chlorhexidine 0.12% Oral Kit 15 ML UDC OROPHARYNG SCH ×2 (08:17→22:05)
[2017-11-22] MEDS: Folic Acid 1 MG Tablet PO SCH (08:18)
[2017-11-22] MEDS: Duloxetine 60 MG DR Capsule PO SCH (08:18)
[2017-11-22] MEDS: Lactobacillus Acidophilus/L. Spores Tablet PO SCH ×2 (08:18→22:06)
[2017-11-22] MEDS: Hypromellose 0.3% Opth Gel 10 GM Bottle EACH EYE SCH ×2 (08:21→22:06)
[2017-11-22] MEDS: Heparin Central Flush 100 UNIT/ML 5 ML Vial IV.FLUSH SCH ×2 (08:21)
[2017-11-22] MEDS: Pantoprazole Inj 40 MG Vial IV.PUSH SCH (08:22)
--- NOTE | 2017-11-22 08:57 | P.PNFP ---
Subjective Interval history: Pt seen and examined this morning. No acute events overnight. Pt remains intubated and sedated. Remains tachycardic and hypothermic this morning. Family meeting was held yesterday to discuss goals of care. No change in code status or further decisions made. Results - Labs Result diagrams: 11/22/17 03:40 11/22/17 03:40 Abnormal lab results 11/16/17 11/21/17 11/22/17 Range/Units 15:10 08:15 03:40 WBC 11.7 H (4.0-11.0) th/mm3 RBC 3.00 L (4.00-5.30) mil/mm3 Hgb 8.7 L D (11.6-15.3) gm/dL Hct 25.9 L (35.0-46.0) % Plt Count 43 L (150-450) th/mm3 ABG pH (7.380-7.420) ABG pCO2 (38-42) mmHg ABG pO2 (61-120) mmHG ABG HCO3 (22-26) mmol/L ABG Base Excess (-2-2) mmol/L Hemoglobin (12.0-16.0) G/DL Chloride (98-107) meq/L Carbon Dioxide (21.0-32.0) meq/L BUN (7-18) mg/dL Creatinine (0.50-1.00) mg/dL Estimated GFR (>89) mL/min MTS Gel Crossmatch See Detail See Detail 11/22/17 11/22/17 Range/Units 03:40 04:10 WBC (4.0-11.0) th/mm3 RBC (4.00-5.30) mil/mm3 Hgb (11.6-15.3) gm/dL Hct (35.0-46.0) % Plt Count (150-450) th/mm3 ABG pH 7.24 L* (7.380-7.420) ABG pCO2 37 L (38-42) mmHg ABG pO2 187 H (61-120) mmHG ABG HCO3 15 L* (22-26) mmol/L ABG Base Excess -10.7 L (-2-2) mmol/L Hemoglobin 9.3 L (12.0-16.0) G/DL Chloride 110 H (98-107) meq/L Carbon Dioxide 17.0 L (21.0-32.0) meq/L BUN 61 H (7-18) mg/dL Creatinine 2.11 H (0.50-1.00) mg/dL Estimated GFR 30 L (>89) mL/min MTS Gel Crossmatch Short CBC 11/22/17 Range/Units 03:40 WBC 11.7 H (4.0-11.0) th/mm3 Hgb 8.7 L D (11.6-15.3) gm/dL Hct 25.9 L (35.0-46.0) % Plt Count 43 L (150-450) th/mm3 BMP 11/22/17 03:40 Sodium 141 Potassium 4.1 Chloride 110 H Carbon Dioxide 17.0 L BUN 61 H Creatinine 2.11 H Calcium 8.8 - Imaging Impressions Chest X-Ray 11/22/17 04:00 CONCLUSION: 1. Stable chest x-ray with a mild airspace opacity in the left lung base with blunting of the costophrenic sulcus suggesting small pleural effusion. 2. Endotracheal tube tip measures 1 cm from the shaka. Physical Exam Vital signs: Vital Signs 11/21/17 09:00 11/21/17 09:30 11/21/17 10:00 Temperature 98.1 F 98.2 F 98.4 F Pulse Rate 111 H 115 H 115 H Respiratory Rate 16 16 16 Blood Pressure 116/58 L 120/57 L 121/56 L Pulse Oximetry 100 100 100 11/21/17 10:30 11/21/17 10:51 11/21/17 11:00 Temperature 98.6 F 98.7 F 98.8 F Pulse Rate 123 H 123 H 120 H Respiratory Rate 16 17 15 Blood Pressure 130/60 130/60 121/57 L Pulse Oximetry 100 100 100 11/21/17 11:10 11/21/17 11:30 11/21/17 12:00 Temperature 98.8 F 98.8 F Pulse Rate 114 H 115 H Respiratory Rate 16 19 17 Blood Pressure 113/57 L 111/59 L Pulse Oximetry 100 100 100 11/21/17 12:30 11/21/17 13:00 11/21/17 13:01 Temperature 98.8 F 98.6 F 98.6 F Pulse Rate 115 H 113 H 112 H Respiratory Rate 19 17 Blood Pressure 126/59 L 114/59 L 114/58 L Pulse Oximetry 100 100 100 11/21/17 13:30 11/21/17 14:00 11/21/17 14:30 Temperature 98.6 F 98.4 F 98.4 F Pulse Rate 112 H 115 H 113 H Respiratory Rate 16 16 17 Blood Pressure 117/56 L 123/61 124/58 L Pulse Oximetry 100 100 100 11/21/17 15:00 11/21/17 15:30 11/21/17 16:00 Temperature 98.4 F 98.4 F 98.4 F Pulse Rate 112 H 114 H 113 H Respiratory Rate 16 16 18 Blood Pressure 126/60 125/59 L 125/60 Pulse Oximetry 100 100 100 11/21/17 16:18 11/21/17 16:30 11/21/17 17:00 Temperature 98.4 F 98.6 F Pulse Rate 113 H 112 H Respiratory Rate 16 19 18 Blood Pressure 120/58 L 121/60 Pulse Oximetry 100 100 100 11/21/17 18:00 11/21/17 20:00 11/21/17 20:57 Temperature 98.6 F Pulse Rate 114 H 117 H Respiratory Rate 16 16 Blood Pressure 132/64 Pulse Oximetry 99 100 11/21/17 21:32 11/21/17 22:00 11/22/17 00:00 Temperature 98.7 F Pulse Rate 110 H 115 H Respiratory Rate 16 18 Blood Pressure 138/69 Pulse Oximetry 96 11/22/17 00:55 11/22/17 02:00 11/22/17 04:00 Temperature 98.4 F Pulse Rate 118 H 117 H Respiratory Rate 18 16 Blood Pressure 136/69 Pulse Oximetry 100 100 11/22/17 06:00 11/22/17 07:21 Temperature Pulse Rate 121 H Respiratory Rate 16 Blood Pressure Pulse Oximetry 100 Intake & Output 11/21/17 11/22/17 11/22/17 18:59 06:59 18:59 Intake Total 2829 / 2829 1136 / 1136 100 / 100 Output Total 1850 / 1850 1950 / 1950 Balance 979 / 979 -814 / -814 100 / 100 Weight 119 kg Intake: IV 1250 / 1250 460 / 460 100 / 100 Diprivan 1000 mg/100 ml Inj 1, 300 / 300 10 / 10 100 / 100 000 mg In 100 ml @ 5 MCG/KG/MIN 3.261 mls/hr IV.CONT TITRATE PRN Rx#:[id number] Flexbumin 25% Inj 100 ML @ 60 100 / 100 200 / 200 mls/hr IV.SIG Q8H [facility] Rx#: [id number] Zyvox 600 mg Premix 300 ML @ 300 / 300 300 mls/hr IV.SIG Q12H [facility] Rx#: [id number] Magnesium Sulfate Inj 2 GM In 100 / 100 NS Inj 96 ML @ 50 mls/hr IV.SIG ONCE ONE Rx#:[id number] Merrem Inj 1,000 MG In NS Inj 100 / 100 100 ML @ 200 mls/hr IV.SIG Q12H [facility] Rx#:[id number] Mycamine Inj 100 MG In NS Inj 100 / 100 100 ML @ 100 mls/hr IV.SIG Q24H [facility] Rx#:[id number] fentaNYL 10 mcg/mL Premix Drip 250 / 250 250 / 250 2,500 mcg In 250 ml @ 50 MCG/HR 5 mls/hr IV.SIG TITRATE PRN Rx #:[id number] Tube Feeding 659 / 659 676 / 676 Water Bolus Amount 120 / 120 Intake (Blood Product) Amt 800 / 800 Rbc As-3 Leukoreduced Unit 400 / 400 [id number] Rbc As-3 Leukoreduced Unit 400 / 400 [id number] Output: Stool 500 / 500 450 / 450 Urine Amount (Catheter) 1350 / 1350 1500 / 1500 Indwelling Urethral Catheter 1350 / 1350 1500 / 1500 Other: Date of Last Bowel Movement 11/21/17 Narrative: GENERAL: Morbidly obese -[place] female lying in bed intubated and sedated with soft restraints intact. HEENT: Atraumatic, normocephalic. ET tube in place. CARDIOVASCULAR: Tachycardic rate (baseline) and regular rhythm without obvious murmurs, gallops, or rubs. RESPIRATORY: Bilateral rhonchi throughout. Breath sounds difficult to auscultate due to body habitus and ventilator noise. No increased work of breathing. GASTROINTESTINAL: Abdomen diffuse, soft with soft bowel sounds. Rectal tube in place with liquid fecal material in reservoir. Hopper catheter in place. MUSCULOSKELETAL: Bilateral upper extremity 2+ edema. Stable bilateral lower extremity 2+. Left knee effusion stable. SCDs in place. NEURO/PSYCH: Patient intubated and sedated. SKIN: Cool and dry. No rash. PICC line without surrounding erythema, warmth, or other signs of infection. ABD wounds: Transverse suprapubic wound stapled along with midline stapled incision. Currently dry bandages clean. - Urinary Catheter Management Female External Cath placed during this visit: no Indwelling Urethral Catheter Cath placed during this visit: yes, but has since been removed by the nurse Reason for continuing: Severe pressure ulcer/wound Insertion date: 10/09/17 Insertion time: 14:00 Removal date: 10/05/17 Removal time: 17:30 Assessment and Plan - Assessment (1) Respiratory failure Code(s): J96.90 - Respiratory failure, unspecified, unspecified whether with hypoxia or hypercapnia Status: Acute Plan: Patient with possible aspiration episode on 11/12/17 with subsequent acute respiratory failure requiring intubation ABG 11/12/17:7.3/33/219/16 CXR 11/15/17: Mild bibasilar consolidation, improved on the right and slightly worse on the left. CXR continues to show stable disease, no change -Patient intubated and sedated -Continues to fail weaning trials -Geospatial Image Analyst consulted -Palliative care consulted (2) Sepsis Code(s): A41.9 - Sepsis, unspecified organism Status: Acute Plan: Patient meeting sepsis criteria with core body temperature of high/low temp, leukocytosis, and tachycardia. Suspected site of infection as her extensive abdominal wounds w/ C diff as well -Please see plan as below (3) Open wound of abdominal wall Code(s): S31.109A - Unspecified open wound of abdominal wall, unspecified quadrant without penetration into peritoneal cavity, initial encounter Status : Acute Plan: Large abdominal and pelvic wounds that appear not to be healing likely secondary to poor nutritional status -Wound Culture 09/27/17: Pseudomonas and Group B Step -Blood Cultures 10/24/17: Negative -Tissue Cultures 10/09/17: Negative -Abdominal wound culture 11/01/17: Group D Enterococcus, sensitive to Daptomycin ; Fungal species -Blood Culture 11/07/17 per TPN protocol: Negative to date -Blood Culture 11/12/17: NTD -PICC Line/Blood Cultures 11/15/17: no growth to date -Infectious disease consulted -General surgery consulted -Surgical debridement 10/09, wound VAC applied. -VAC changed 10/12 removed 10/15. -Debridement, irrigation, with suturing performed on 10/16. -I&D of abdomen and bilateral thighs, placement of Amniox with wound closure on 11/01/17 -Dressing changes per general surgery Medications: -Meropenem (11/13/17- ) -Micafungin (11/13/17- ) -Linezolid (11/13/17- ) -Dificid (11/15/17 - ) -PO Vanc (10/23/17 - ) Levaquin (11/10/17-11/15/17) -Daptomycin IV for suspected VRE per ID (11/03/17-11/13/17) -Cefepime IV (09/29/17-11/08/17) discontinued due to thrombocytopenia and elevated creatinine -Flagyl (11/10/17-11/13/17) -Diflucan 500mg daily (11/12/17) -Fentanyl added to assist with pain control (4) Aspiration into airway Code(s): T17.908A - Unspecified foreign body in respiratory tract, part unspecified causing other injury, initial encounter Status: Acute Plan: Patient with possible aspiration episode overnight 11/09/17 with another episode on 11/12/17. Patient now with respiratory failure as above Chest x-ray 11/09/12: Interval development of left lower lobe consolidation CXR 11/10/17: Left upper extremity PICC distal tip at the junction of the SVC and brachiocephalic vein. Bibasilar airspace opacity could represent atelectasis versus consolidation. CXR 11/12/17: Interim intubation. Endotracheal tip at the shaka. Small effusion and mild consolidation developing at the right base. Sputum cultures: Gram stain with rare gram positive cocci in pairs, many WBC, mucus; Culture with light growth of normal respiratory lisa at 24 hours. CXR 11/15/17: Mild bibasilar consolidation, improved on the right and slightly worse on the left. CXR 11/19/17: no significant change -Continues to show stable disease -Speech therapy consulted for swallow evaluation once extubated -ID consulted Medications: -Meropenem (11/13/17- ) -Micafungin (11/13/17- ) -Linezolid (11/13/17- ) Levaquin (11/10/17-11/15/17) -Flagyl (11/10/17-11/13/17) (5) C. difficile diarrhea Code(s): A04.72 - Enterocolitis due to Clostridium difficile, not specified as recurrent Status: Acute Plan: C diff cultures positive 10/19/17 Patient meeting criteria for severe C. difficile infection -Vancomycin PO 125 4 times daily (10/23/17- ) -Difficid 200mg BID (11/15/17- ) -Continue with probiotics. -Rectal tube in place (6) Anemia Code(s): D64.9 - Anemia, unspecified Status: Resolved Plan: Patient found to have asymptomatic anemia H/H of 10/05.3 with MCV of 82 on Continues to have anemia/thrombocytopenia 11/21 - given 2 units pRBC with appropriate response -Rectal tube and Hopper catheter without any signs of acute bleeding -Dressings without obvious signs of bleeding -13 units total thus far during admission (11/21/17 most recent) -Consider transfusion if requiring more volume -Continue to monitor (7) Creatinine elevation Code(s): R79.89 - Other specified abnormal findings of blood chemistry Status : Acute Plan: Patient with acute creatinine elevation with starting TPN. -Unknown etiology at this time -Patient with decreasing urinary output -Electrolytes WNL -Stable Cr at this time, although remains elevated -Continue to monitor creatinine, I/Os (8) Thrombocytopenia Code(s): D69.6 - Thrombocytopenia, unspecified Status: Acute Plan: Patient with decreasing platelet count -Etiology unknown -No signs of acute bruising/bleeding on limited skin exam due to body habitus -Continue to monitor -If <50 or signs of bleeding, possible transfusion (9) Poor nutrition Code(s): E63.9 - Nutritional deficiency, unspecified Status: Acute Plan: -Patient with poor nutritional status during hospitalization -Severe concern of poor wound healing secondary to poor nutritional status -Bill Peddler consulted for calorie count and nutritional guidance, which has been limited due to NPO status prior to surgery, however patient continues to have poor intake -Multivitamin IV added with Hermes supplementation BID -Albumin levels continued to be decreased -Patient unable to receive 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 Briefly discussed with surgery about the possibility of a JG tube versus surgical placement of PEG tube, deferred as patient will likely not heal from surgical procedure due to nutritional status -NG tube placed with vital 1.5 tube feeds started per dietary TPN, Clinimix E 08/05 @ 65 mls/hr with 20% lipids 250 mls 2x/week (11/07/17-) -Started on Albumin IV overnight (11/19) (10) Schizophrenia Code(s): F20.9 - Schizophrenia, unspecified Status: Chronic Plan: -Psychiatry consulted upon admission -Patient with increased agitation and disorientation on 11/09/17; during episode patient pulled PICC line and attempted to pull out rectal/Hopper; patient required 1 mg Haldol for agitation during episode -Psychiatry consulted for further evaluation Medications: -Haldol 1-2 mg IV/IM every 8 hours as needed for aggressive behavior/agitation -Continue Abilify 30 mg for psychosis -Continue buspirone 30 mg, trazodone 100 mg and Cymbalta 60 mg -Started Mirtazapine 15mg QHS to assist with mood as well as appetite stimulant -Hold anticholinergics per Psych (11) Altered mental status Code(s): R41.82 - Altered mental status, unspecified Status: Acute Plan: Patient with altered mental status overnight 11/11/17 with possible aspiration due to new dysphagia. Patient's mental status continues to decline with a GCS score of 10. Likely related to hypoglycemia as patient did not have access and was not able to receive nutrition via PICC line and is n.p.o. for failed swallow study. -CT Head: Interval enlargement of the ventricular system of uncertain etiology. No clear evidence of an obstructing process. Otherwise stable evaluation without evidence of acute infarct, hemorrhage, mass, or edema. -MRI wo contrast: Negative for acute process -Speech therapy consulted Neurology consulted, appreciate recommendations -No active neurological issues -Geospatial Image Analyst consulted, appreciate recommendations -Currently intubated and sedated Medications: -TPN -Haldol 1mg PRN for agitation/hallucinations -Lopressor 5mg IV PRN for HR >120 every 15min (12) Cellulitis of knee, left Code(s): L03.116 - Cellulitis of left lower limb Status: Acute Plan: -ID consulted, recommend Cefepime until 11/08/17 -Orthopedic surgery consulted, no further recommendations at this time Medications: -As above (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 She completed rehabilitation and was discharged home August 23. Patient was on approximately 2 weeks of po Keflex 500 mg. Per Ortho, examination of left knee shows no evidence of infection. (14) Hypertension Code(s): I10 - Essential (primary) hypertension Status: Acute Plan: History of hypertension Hold oral medications below -Continue to monitor -Clonidine PRN for BP > 180/100 (15) Tachycardia Code(s): R00.0 - Tachycardia, unspecified Status: Chronic Plan: -Patient with chronic history of tachycardia -EKG 09/27/17: Sinus tachycardia with rate of [address] or interval changes. (Per medical team read) Medications: -Lopressor 5mg IV PRN for HR >120 if unable to tolerate PO -Continue home diltiazem and carvedilol (16) Nutrition, metabolism, and development symptoms Code(s): R63.8 - Other symptoms and signs concerning food and fluid intake Status: Acute Plan: Fluids: NG tube feeds with Vital 1.5 @ 40 mls/hr goal, plan to wean TPN with SSI as needed Electrolytes: Replete as needed per ICU protocol Nutrition: -Bill Peddler consulted for nutritional guidance -NG tube placed and tube feeds started with vital 1.5 at 50 mils per hour (goal) -TPN Clinimix E 08/05 @ 65 mls/hr with 20% lipids 250 mls 2x/week (11/07/17- ); plan to wean as tolerated now that NG tube feeds have been initiated -Started on albumin IV PICC line placed in left upper extremity DVT prophylaxis: SCDs,SQ Heparin per hostel manager - Assessment and Plan 52 y/o female with multi-system organ dysfunction after multiple wound infections, and with severe sepsis and malnutrition. Pt is on maximum ID therapy and conflicting therapies leading to a very poor prognosis. Palliative care is consulted. Discussed with Dr. Mcleod, planning for family meeting at 1pm today. (1) Respiratory failure Qualifiers: Chronicity: acute (3) Open wound of abdominal wall Qualifiers: Encounter type: initial encounter Qualified Code(s): S31.109A - Unspecified open wound of abdominal wall, unspecified quadrant without penetration into peritoneal cavity, initial encounter (4) Aspiration into airway Qualifiers: Encounter type: initial encounter Qualified Code(s): T17.908A - Unspecified foreign body in respiratory tract, part unspecified causing other injury, initial encounter (6) Anemia Qualifiers: Anemia type: unspecified type Qualified Code(s): D64.9 - Anemia, unspecified (11) Altered mental status Qualifiers: Altered mental status type: unspecified Qualified Code(s): R41.82 - Altered mental status, unspecified (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
--- NOTE | 2017-11-22 13:22 | P.PNPAL ---
Reason for Visit Reason for visit: a. To assist with evaluation and management of symptoms including: dyspnea, pain. b. To assist medical decision maker(s) with: better understanding of current medical conditions; weighing benefits/burdens of medical treatment options; making medical treatment decisions. Subjective Subjective/Interval History: Patient seen and examined in ICU. Sedated, intubated, on vent. Lung sounds coarse. Tachycardic. FiO2 up from 35% to 40%. Still acidotic. Propofol running 26ml/hr. Mild decrease pressor support. CXR showing small pelural effusion left lung. No sign pain. Fentanyl gtt 25ml/hr. Per CCM tentative family mtg 11/23. Family/Friend Interactions: Brief telephone discussion with Mr Johny, HCP. He is waiting on family to arrive and further family discussion and said he would check in with Dr Mcleod tomorrow to let her know on a meeting time. Objective Vital Signs: Vital Signs 11/21/17 13:30 11/21/17 14:00 11/21/17 14:30 Temperature 98.6 F 98.4 F 98.4 F Pulse Rate 112 H 115 H 113 H Respiratory Rate 16 16 17 Blood Pressure 117/56 L 123/61 124/58 L Pulse Oximetry 100 100 100 11/21/17 15:00 11/21/17 15:30 11/21/17 16:00 Temperature 98.4 F 98.4 F 98.4 F Pulse Rate 112 H 114 H 113 H Respiratory Rate 16 16 18 Blood Pressure 126/60 125/59 L 125/60 Pulse Oximetry 100 100 100 11/21/17 16:18 11/21/17 16:30 11/21/17 17:00 Temperature 98.4 F 98.6 F Pulse Rate 113 H 112 H Respiratory Rate 16 19 18 Blood Pressure 120/58 L 121/60 Pulse Oximetry 100 100 100 11/21/17 18:00 11/21/17 20:00 11/21/17 20:57 Temperature 98.6 F Pulse Rate 114 H 117 H Respiratory Rate 16 16 Blood Pressure 132/64 Pulse Oximetry 99 100 11/21/17 21:32 11/21/17 22:00 11/22/17 00:00 Temperature 98.7 F Pulse Rate 110 H 115 H Respiratory Rate 16 18 Blood Pressure 138/69 Pulse Oximetry 96 11/22/17 00:55 11/22/17 02:00 11/22/17 04:00 Temperature 98.4 F Pulse Rate 118 H 117 H Respiratory Rate 18 16 Blood Pressure 136/69 Pulse Oximetry 100 100 11/22/17 06:00 11/22/17 07:21 11/22/17 08:00 Temperature 99.0 F Pulse Rate 121 H 121 H Respiratory Rate 16 16 Blood Pressure 138/66 Pulse Oximetry 100 100 11/22/17 10:00 11/22/17 11:07 11/22/17 12:00 Temperature 100.4 F H Pulse Rate 125 H 132 H Respiratory Rate 17 16 Blood Pressure 167/77 H Pulse Oximetry 98 98 Intake & Output 11/21/17 11/22/17 11/22/17 18:59 06:59 18:59 Intake Total 2829 / 2829 1536 / 1536 100 / 100 Output Total 1850 / 1850 1950 / 1950 Balance 979 / 979 -414 / -414 100 / 100 Weight 119 kg Intake: IV 1250 / 1250 860 / 860 100 / 100 Diprivan 1000 mg/100 ml Inj 1, 300 / 300 10 / 10 100 / 100 000 mg In 100 ml @ 5 MCG/KG/MIN 3.261 mls/hr IV.CONT TITRATE PRN Rx#:[id number] Flexbumin 25% Inj 100 ML @ 60 100 / 100 200 / 200 mls/hr IV.SIG Q8H [facility] Rx#: [id number] Zyvox 600 mg Premix 300 ML @ 300 / 300 300 / 300 300 mls/hr IV.SIG Q12H [facility] Rx#: [id number] Magnesium Sulfate Inj 2 GM In 100 / 100 NS Inj 96 ML @ 50 mls/hr IV.SIG ONCE ONE Rx#:[id number] Merrem Inj 1,000 MG In NS Inj 100 / 100 100 / 100 100 ML @ 200 mls/hr IV.SIG Q12H [facility] Rx#:[id number] Mycamine Inj 100 MG In NS Inj 100 / 100 100 ML @ 100 mls/hr IV.SIG Q24H [facility] Rx#:[id number] fentaNYL 10 mcg/mL Premix Drip 250 / 250 250 / 250 2,500 mcg In 250 ml @ 50 MCG/HR 5 mls/hr IV.SIG TITRATE PRN Rx #:[id number] Tube Feeding 659 / 659 676 / 676 Water Bolus Amount 120 / 120 Intake (Blood Product) Amt 800 / 800 Rbc As-3 Leukoreduced Unit 400 / 400 [id number] Rbc As-3 Leukoreduced Unit 400 / 400 [id number] Output: Stool 500 / 500 450 / 450 Urine Amount (Catheter) 1350 / 1350 1500 / 1500 Indwelling Urethral Catheter 1350 / 1350 1500 / 1500 Other: Date of Last Bowel Movement 11/21/17 11/22/17 Physical Exam: TUBES/LINES/DRAINS: ETT, OG, PIV, rectal tube with liquid stool, herrera. SKIN: skin inner thighs exoriated. HEAD: Atraumatic. Normocephalic. EYES: eyes closed. no EOMI. ENT: Nose without bleeding or purulent drainage. Bite block in mouth. Unable to visualize oral cavity. CARDIOVASCULAR:tachycardic +murmur, no gallops, or rubs. No JVD. Peripheral pulses symmetric. RESPIRATORY/CHEST: Symmetric, unlabored respirations. coarse lung sounds GASTROINTESTINAL: Abdomen obese, BS hypoactive. wounds bandaged, some dressings moist MUSCULOSKELETAL: generalized pitting edema. +LUE wound antecubital region. NEUROLOGICAL: sedated on vent Diagnostic Tests Laboratory: Laboratory Results - last 72 hr 11/16/17 11/19/17 11/19/17 15:10 13:28 16:24 WBC RBC Hgb Hct MCV MCH MCHC RDW Plt Count MPV Puncture Site Right radial Right radial Patient Temperature 98.6 98.6 O2 Saturation 96 95 ABG pH 7.27 L* 7.26 L* ABG pCO2 35 L 37 L ABG pO2 160 H 140 H ABG HCO3 16 L* 16 L* ABG O2 Content 16.6 9.8 L ABG Base Excess -10.0 L -9.7 L ABG Methemoglobin 1.6 2.0 Kirk Test + + Hemoglobin 12.0 7.0 L* Carboxyhemoglobin 0.7 1.0 O2 Delivery Device Ventilator Ventilator Vent Setting See comments See comments Inspired O2 35 35 Critical Value Yes Yes Sodium Potassium Chloride Carbon Dioxide Anion Gap BUN Creatinine Estimated GFR POC Glucose Random Glucose Calcium Phosphorus Magnesium Blood Type Antibody Screen MTS Gel Crossmatch See Detail 11/20/17 11/20/17 11/20/17 00:15 05:29 05:30 WBC 12.0 H RBC 2.57 L Hgb 7.6 L Hct 21.6 L MCV 84.2 MCH 29.6 MCHC 35.1 RDW 18.2 H Plt Count 56 L MPV 7.8 Puncture Site Right radial Patient Temperature 98.6 O2 Saturation 96 ABG pH 7.26 L* ABG pCO2 35 L ABG pO2 161 H ABG HCO3 15 L* ABG O2 Content 11.4 L ABG Base Excess -10.5 L ABG Methemoglobin 1.8 Kirk Test Present Hemoglobin 8.2 L Carboxyhemoglobin 0.7 O2 Delivery Device Ventilator Vent Setting Prvc/ ac Inspired O2 35 Critical Value Yes Sodium Potassium Chloride Carbon Dioxide Anion Gap BUN Creatinine Estimated GFR POC Glucose 100 Random Glucose Calcium Phosphorus Magnesium Blood Type Antibody Screen MTS Gel Crossmatch 11/20/17 11/21/17 11/21/17 05:30 00:48 03:35 WBC 11.9 H RBC 2.28 L Hgb 6.4 L* Hct 19.4 L* MCV 85.1 MCH 27.9 MCHC 32.8 RDW 17.5 H Plt Count 55 L MPV 8.4 Puncture Site Patient Temperature O2 Saturation ABG pH ABG pCO2 ABG pO2 ABG HCO3 ABG O2 Content ABG Base Excess ABG Methemoglobin Kirk Test Hemoglobin Carboxyhemoglobin O2 Delivery Device Vent Setting Inspired O2 Critical Value Sodium 137 Potassium 4.3 Chloride 108 H Carbon Dioxide 17.2 L Anion Gap 12 BUN 57 H Creatinine 2.48 H Estimated GFR 25 L POC Glucose 95 Random Glucose 87 Calcium 7.6 L D Phosphorus 3.2 Magnesium 1.7 Blood Type Antibody Screen MTS Gel Crossmatch 11/21/17 11/21/17 11/21/17 03:35 05:01 08:15 WBC RBC Hgb Hct MCV MCH MCHC RDW Plt Count MPV Puncture Site Right radial Patient Temperature 98.6 O2 Saturation 91 ABG pH 7.28 L* ABG pCO2 34 L ABG pO2 66 ABG HCO3 15 L* ABG O2 Content 8.4 L ABG Base Excess -10.3 L ABG Methemoglobin 2.0 Kirk Test Present Hemoglobin 6.5 L* Carboxyhemoglobin 1.1 O2 Delivery Device Ventilator Vent Setting Prvc/ ac Inspired O2 40 Critical Value Yes Sodium 140 Potassium 4.3 Chloride 109 H Carbon Dioxide 17.2 L Anion Gap 14 BUN 61 H Creatinine 2.47 H Estimated GFR 25 L POC Glucose Random Glucose 73 L Calcium 8.4 L D Phosphorus 3.9 Magnesium 1.8 Blood Type O Positive Antibody Screen Negative MTS Gel Crossmatch See Detail 11/21/17 11/21/17 11/21/17 12:08 17:38 23:46 WBC RBC Hgb Hct MCV MCH MCHC RDW Plt Count MPV Puncture Site Patient Temperature O2 Saturation ABG pH ABG pCO2 ABG pO2 ABG HCO3 ABG O2 Content ABG Base Excess ABG Methemoglobin Kirk Test Hemoglobin Carboxyhemoglobin O2 Delivery Device Vent Setting Inspired O2 Critical Value Sodium Potassium Chloride Carbon Dioxide Anion Gap BUN Creatinine Estimated GFR POC Glucose 90 86 109 Random Glucose Calcium Phosphorus Magnesium Blood Type Antibody Screen MTS Gel Crossmatch 11/22/17 11/22/17 11/22/17 03:40 03:40 04:10 WBC 11.7 H RBC 3.00 L Hgb 8.7 L D Hct 25.9 L MCV 86.1 MCH 28.9 MCHC 33.5 RDW 17.2 Plt Count 43 L MPV 8.4 Puncture Site Right radial Patient Temperature 98.6 O2 Saturation 96 ABG pH 7.24 L* ABG pCO2 37 L ABG pO2 187 H ABG HCO3 15 L* ABG O2 Content 13.0 ABG Base Excess -10.7 L ABG Methemoglobin 1.9 Kirk Test Present Hemoglobin 9.3 L Carboxyhemoglobin 0.8 O2 Delivery Device Ventilator Vent Setting 16/600/it1.0/5peep Inspired O2 40 Critical Value Yes Sodium 141 Potassium 4.1 Chloride 110 H Carbon Dioxide 17.0 L Anion Gap 14 BUN 61 H Creatinine 2.11 H Estimated GFR 30 L POC Glucose Random Glucose 94 Calcium 8.8 Phosphorus 4.7 Magnesium 2.1 Blood Type Antibody Screen MTS Gel Crossmatch 11/22/17 11/22/17 05:08 10:56 WBC RBC Hgb Hct MCV MCH MCHC RDW Plt Count MPV Puncture Site Patient Temperature O2 Saturation ABG pH ABG pCO2 ABG pO2 ABG HCO3 ABG O2 Content ABG Base Excess ABG Methemoglobin Kirk Test Hemoglobin Carboxyhemoglobin O2 Delivery Device Vent Setting Inspired O2 Critical Value Sodium Potassium Chloride Carbon Dioxide Anion Gap BUN Creatinine Estimated GFR POC Glucose 88 97 Random Glucose Calcium Phosphorus Magnesium Blood Type Antibody Screen MTS Gel Crossmatch Result Diagrams: 11/22/17 03:40 11/22/17 03:40 Microbiology: Microbiology 11/20/17 12:36 Aerobic Blood Culture - Preliminary Blood - Line No growth in 2 days Anaerobic Blood Culture - Preliminary No growth in 2 days 11/20/17 12:28 Aerobic Blood Culture - Preliminary Blood - Line No growth in 2 days Anaerobic Blood Culture - Preliminary No growth in 2 days 10/09/17 15:49 Acid Fast Bacilli Smear - Final Tissue - Abdominal No acid fast bacilli seen Mycobacterial Culture - Final No growth in 6 weeks 11/15/17 13:10 Aerobic Blood Culture - Final Blood - Line No growth in 5 days Anaerobic Blood Culture - Final No growth in 5 days 11/15/17 12:30 Aerobic Blood Culture - Final Blood - Peripheral No growth in 5 days Anaerobic Blood Culture - Final No growth in 5 days 11/15/17 12:35 Aerobic Blood Culture - Final Blood - Peripheral No growth in 5 days Anaerobic Blood Culture - Final No growth in 5 days Imaging: ITS Impressions Tibia/Fibula X-Ray 09/27/17 00:00 CONCLUSION: No acute left leg abnormality is identified. Abdomen/Pelvis CT 09/27/17 08:10 CONCLUSION: 1. Mild hepatic steatosis. 2. Thickening of the colon secondary to lack of distention versus colitis. 3. Left lower lobe consolidation and/or atelectasis. There does appear to be a 1.4 cm cavitary area which makes consolidation likely. Chest CTA 09/27/17 08:22 CONCLUSION: 1. No pulmonary embolus. 2. Consolidation or atelectasis at the left lower lobe. Knee CT 10/18/17 00:00 CONCLUSION: 1. Small joint effusion. 2. Nonspecific subcutaneous edema in the subcutaneous soft tissues above and below the knee. 3. No significant changes compared to the prior exam. Ankle X-Ray 10/19/17 00:00 CONCLUSION: 1. No acute fracture or dislocation. Knee X-Ray 10/19/17 00:00 CONCLUSION: 1. Total knee prosthesis in place. 2. Moderate-sized knee joint effusion. Head CT 11/10/17 00:00 CONCLUSION: 1. Interval enlargement of the ventricular system of uncertain etiology. There is no clear evidence of an obstructing process. 2. Otherwise stable evaluation without evidence of acute infarct, hemorrhage, mass or edema. . Venous Doppler Study 11/10/17 00:00 CONCLUSION: 1. No venous thrombosis is identified within either lower extremity. 2. As described above, secondary to open wounds, the left external iliac, common femoral vein, and greater saphenous veins were not adequately evaluated. Head MRI 11/11/17 00:00 CONCLUSION: 1. Motion artifact is present throughout the scan. 2. Examination is diagnostic. 3. No evidence of acute infarct, hemorrhage, mass or edema. PICC Line Insertion 11/11/17 08:51 CONCLUSION: 1. Uncomplicated central venous Power PICC line placement. 2. The PICC line can be used immediately. Chest X-Ray 11/22/17 04:00 CONCLUSION: 1. Stable chest x-ray with a mild airspace opacity in the left lung base with blunting of the costophrenic sulcus suggesting small pleural effusion. 2. Endotracheal tube tip measures 1 cm from the shaka. Procedures: 10/09 underwent I&D of abdominal wall and bilateral thighs, wound VAC placement 10/12 incision and drainage with debridement abdominal wall and bilateral lower thighs, wound VAC change 10/15 wound VAC change and closure of abdominal wall 11/01 I&D abdomen, bilateral thighs 11/12 intubated Assessment and Plan - Disease Oriented Problem List (1) Pneumonia (2) Cellulitis of knee, left (3) Prosthetic joint infection (4) Nutrition, metabolism, and development symptoms (5) Diarrhea (6) Schizophrenia (7) Hypertension (8) Fungal infection of skin of abdomen Pertinent Non-Medical Issues: Psychosocial: Pt is , has 2 children. She is unemployed. Originally from [place], [place], has been in [place] for nearly 40y. Has been 34 years. Spiritual: [employer]. Used to go to [employer] but not as much in recent past. Desires pastoral care. Legal: Pt not capacitated to make medical decisions. Per [place] statutes medical decision making falls to her as proxy. Ethical issues impacting care:none Important Contacts: Emile Mcclain Jr [phone], spouse/HCP Emile Mcclain III [phone], son Prognosis: This is a 52-year-old morbidly obese lady with history of mental illness, rheumatoid arthritis who presented 09/27 with shortness of breath, diarrhea, abdominal pain, change in mental status and was found to have multiple infected wounds in her abdomen, groin, and left knee. She is recently status post left knee replacement in July of this year. She has had multiple I&D's of her abdominal wound, fell causing dehiscence of those wounds and her left knee wound , was on TPN, has been having hypoglycemia, now is in IMC. Given her morbid obesity, multiple co morbidities, worsening wound infections, poor nutrition status, her prognosis is poor. Code Status: Full Code Plan: - LEGAL DECISON MAKER -patient is not capacitated to make medical decisions. Per [place] statutes medical decision making would fall to her as proxy - CODE STATUS-full code - GOALS - Brief telephone discussion with Mr Mcclain, HCP. He is waiting on family to arrive and further family discussion and said he would check in with Dr Mcleod tomorrow to let her know on a meeting time. Family is considering transition to comfort vs. continued aggressive care and CODE status. Provided palliative care cell number should other family members have questions or should they decide to change code status. Will plan to meet family again on . - SYMPTOMS - * pain - acute and chronic, multifactorial. Has hx RA, s/p knee repalcement 2017, now s/p multiple I&D procedures for mult infected wounds. now sedated on vent, worsening abd wounds, dehiscence. on fentanyl drip. No further recommendations at this time, continue current meds. * debility - hx RA, morbidly obese, now with prolonged hospital stay. had increasing need for assistance at home ambulating and performing ADLs. Pain, persistent infections will be barrier to any aggressive rehab, she has already been bedbound for over a month and deconditioning. * SOB - originally presented with SOB. multifactorial. morbidly obese, at risk for OHS. now intubated on vent. small left pleural effusion. FiO2 40%. tachycardic today. continued acidosis. has joel and PRN duonebs. * agitation/anxiety - acute and chronic. hx bipolar, anxiety. sedated on vent. Takes duloxetine, mirtazipine, buspirone at home, trazodone to sleep. propofol 26 ml/hr. additionally has has PRn haldol here. Psych following, poss delirium. meds per psych, sedation per CCM - d/w RN - tentative meeting with family & Dr Mcleod tomorrow 11/23 - Palliative care will continue to follow during hospital course as condition evolves, to assist patient/decision-maker with understanding of medical conditions, weighing benefits/burdens of treatment options, for clarification of goals of treatment. Additionally will assist with any symptoms of palliative concern
[2017-11-22] MEDS: fentaNYL 10 mcg/mL Premix Drip 2,500 MCG/250 ML BAG IV.SIG PRN ×2 (13:33→23:59)
--- NOTE | 2017-11-22 18:19 | P.PNGS ---
Subjective Patient reports: diarrhea (remains with labile temps, intubated sedated) Physical Exam Vital signs: Vital Signs 11/21/17 20:00 11/21/17 20:57 11/21/17 21:32 Temperature 98.6 F Pulse Rate 117 H Respiratory Rate 16 16 16 Blood Pressure 132/64 Pulse Oximetry 99 100 11/21/17 22:00 11/22/17 00:00 11/22/17 00:55 Temperature 98.7 F Pulse Rate 110 H 115 H Respiratory Rate 18 18 Blood Pressure 138/69 Pulse Oximetry 96 100 11/22/17 02:00 11/22/17 04:00 11/22/17 06:00 Temperature 98.4 F Pulse Rate 118 H 117 H 121 H Respiratory Rate 16 Blood Pressure 136/69 Pulse Oximetry 100 11/22/17 07:21 11/22/17 08:00 11/22/17 10:00 Temperature 99.0 F Pulse Rate 121 H 125 H Respiratory Rate 16 16 Blood Pressure 138/66 Pulse Oximetry 100 100 11/22/17 11:07 11/22/17 12:00 11/22/17 14:00 Temperature 100.4 F H Pulse Rate 132 H 128 H Respiratory Rate 17 16 Blood Pressure 167/77 H Pulse Oximetry 98 98 11/22/17 15:59 11/22/17 16:00 11/22/17 18:00 Temperature 99.5 F Pulse Rate 120 H 118 H Respiratory Rate 16 16 Blood Pressure 137/64 Pulse Oximetry 99 99 Intake & Output 11/21/17 11/22/17 11/22/17 18:59 06:59 18:59 Intake Total 2829 / 2829 1786 / 1786 1018 / 1018 Output Total 1850 / 1850 1950 / 1950 1200 / 1200 Balance 979 / 979 -164 / -164 -182 / -182 Weight 119 kg Intake: IV 1250 / 1250 1110 / 1110 300 / 300 Diprivan 1000 mg/100 ml Inj 1, 300 / 300 10 / 10 200 / 200 000 mg In 100 ml @ 5 MCG/KG/MIN 3.261 mls/hr IV.CONT TITRATE PRN Rx#:[id number] Flexbumin 25% Inj 100 ML @ 60 100 / 100 200 / 200 100 / 100 mls/hr IV.SIG Q8H [facility] Rx#: [id number] Zyvox 600 mg Premix 300 ML @ 300 / 300 300 / 300 300 mls/hr IV.SIG Q12H [facility] Rx#: [id number] Magnesium Sulfate Inj 2 GM In 100 / 100 NS Inj 96 ML @ 50 mls/hr IV.SIG ONCE ONE Rx#:[id number] Merrem Inj 1,000 MG In NS Inj 100 / 100 100 / 100 100 ML @ 200 mls/hr IV.SIG Q12H [facility] Rx#:[id number] Mycamine Inj 100 MG In NS Inj 100 / 100 100 ML @ 100 mls/hr IV.SIG Q24H [facility] Rx#:[id number] fentaNYL 10 mcg/mL Premix Drip 250 / 250 500 / 500 2,500 mcg In 250 ml @ 50 MCG/HR 5 mls/hr IV.SIG TITRATE PRN Rx #:[id number] Tube Feeding 659 / 659 676 / 676 598 / 598 Water Bolus Amount 120 / 120 120 / 120 Intake (Blood Product) Amt 800 / 800 Rbc As-3 Leukoreduced Unit 400 / 400 [id number] Rbc As-3 Leukoreduced Unit 400 / 400 [id number] Output: Stool 500 / 500 450 / 450 100 / 100 Urine Amount (Catheter) 1350 / 1350 1500 / 1500 1100 / 1100 Indwelling Urethral Catheter 1350 / 1350 1500 / 1500 1100 / 1100 Other: Date of Last Bowel Movement 11/21/17 11/22/17 - Constitutional mild distress - Routine Respiratory Exam Present: patient mechanically ventilated - Routine Cardiovascular Exam Present: tachycardia - Routine Abdominal Exam Present: soft (abdominal incision well approx, serous drainage laterally, left thigh dehisce no pus or purulent drainage) - Urinary Catheter Management Female External Cath placed during this visit: no Indwelling Urethral Catheter Cath placed during this visit: yes, but has since been removed by the nurse Reason for continuing: Severe pressure ulcer/wound Insertion date: 10/09/17 Insertion time: 14:00 Removal date: 10/05/17 Removal time: 17:30 Assessment and Plan - Assessment (1) Fungal infection of skin of abdomen Code(s): B36.9 - Superficial mycosis, unspecified Status: Acute - Plan patient seen at bedside keep wound dry frequent dressing changes as needed, wound care ID following palliative meeting planning with family discuss with Dr. Ringhouser poor prognosis c.diff agressive tx tube feeds
--- NOTE | 2017-11-22 18:22 | P.PNGS ---
Subjective Patient reports: diarrhea (intubated sedated) Physical Exam Vital signs: Vital Signs 11/21/17 20:00 11/21/17 20:57 11/21/17 21:32 Temperature 98.6 F Pulse Rate 117 H Respiratory Rate 16 16 16 Blood Pressure 132/64 Pulse Oximetry 99 100 11/21/17 22:00 11/22/17 00:00 11/22/17 00:55 Temperature 98.7 F Pulse Rate 110 H 115 H Respiratory Rate 18 18 Blood Pressure 138/69 Pulse Oximetry 96 100 11/22/17 02:00 11/22/17 04:00 11/22/17 06:00 Temperature 98.4 F Pulse Rate 118 H 117 H 121 H Respiratory Rate 16 Blood Pressure 136/69 Pulse Oximetry 100 11/22/17 07:21 11/22/17 08:00 11/22/17 10:00 Temperature 99.0 F Pulse Rate 121 H 125 H Respiratory Rate 16 16 Blood Pressure 138/66 Pulse Oximetry 100 100 11/22/17 11:07 11/22/17 12:00 11/22/17 14:00 Temperature 100.4 F H Pulse Rate 132 H 128 H Respiratory Rate 17 16 Blood Pressure 167/77 H Pulse Oximetry 98 98 11/22/17 15:59 11/22/17 16:00 11/22/17 18:00 Temperature 99.5 F Pulse Rate 120 H 118 H Respiratory Rate 16 16 Blood Pressure 137/64 Pulse Oximetry 99 99 Intake & Output 11/21/17 11/22/17 11/22/17 18:59 06:59 18:59 Intake Total 2829 / 2829 1786 / 1786 1018 / 1018 Output Total 1850 / 1850 1950 / 1950 1200 / 1200 Balance 979 / 979 -164 / -164 -182 / -182 Weight 119 kg Intake: IV 1250 / 1250 1110 / 1110 300 / 300 Diprivan 1000 mg/100 ml Inj 1, 300 / 300 10 / 10 200 / 200 000 mg In 100 ml @ 5 MCG/KG/MIN 3.261 mls/hr IV.CONT TITRATE PRN Rx#:[id number] Flexbumin 25% Inj 100 ML @ 60 100 / 100 200 / 200 100 / 100 mls/hr IV.SIG Q8H [facility] Rx#: [id number] Zyvox 600 mg Premix 300 ML @ 300 / 300 300 / 300 300 mls/hr IV.SIG Q12H [facility] Rx#: [id number] Magnesium Sulfate Inj 2 GM In 100 / 100 NS Inj 96 ML @ 50 mls/hr IV.SIG ONCE ONE Rx#:[id number] Merrem Inj 1,000 MG In NS Inj 100 / 100 100 / 100 100 ML @ 200 mls/hr IV.SIG Q12H [facility] Rx#:[id number] Mycamine Inj 100 MG In NS Inj 100 / 100 100 ML @ 100 mls/hr IV.SIG Q24H [facility] Rx#:[id number] fentaNYL 10 mcg/mL Premix Drip 250 / 250 500 / 500 2,500 mcg In 250 ml @ 50 MCG/HR 5 mls/hr IV.SIG TITRATE PRN Rx #:[id number] Tube Feeding 659 / 659 676 / 676 598 / 598 Water Bolus Amount 120 / 120 120 / 120 Intake (Blood Product) Amt 800 / 800 Rbc As-3 Leukoreduced Unit 400 / 400 [id number] Rbc As-3 Leukoreduced Unit 400 / 400 [id number] Output: Stool 500 / 500 450 / 450 100 / 100 Urine Amount (Catheter) 1350 / 1350 1500 / 1500 1100 / 1100 Indwelling Urethral Catheter 1350 / 1350 1500 / 1500 1100 / 1100 Other: Date of Last Bowel Movement 11/21/17 11/22/17 - Constitutional mild distress - Routine Cardiovascular Exam Present: tachycardia - Routine Abdominal Exam Present: soft (abd incision well approx, LLE wet to dry, dressings dry scant drainage ) - Urinary Catheter Management Female External Cath placed during this visit: no Indwelling Urethral Catheter Cath placed during this visit: yes, but has since been removed by the nurse Reason for continuing: Severe pressure ulcer/wound Insertion date: 10/09/17 Insertion time: 14:00 Removal date: 10/05/17 Removal time: 17:30 Assessment and Plan - Assessment (1) Fungal infection of skin of abdomen Code(s): B36.9 - Superficial mycosis, unspecified Status: Acute Plan: 52 year old female with large abdominal/thigh wounds -intubated in IMC -Palliative Care following -Continue wound care, stable wounds - will follow along - Plan patient seen at bedside vent mgnt per icu keep wound dry frequent dressing changes as needed, wound care ID following family requesting full aggressive tx- will continue to discuss prognosis and outcome poor prognosis c.diff agressive tx tube feeds
[2017-11-22] MEDS: traZODone 100 MG Tablet PO SCH (22:05)
[2017-11-22] MEDS: Mirtazapine 15 MG Tablet PO SCH (22:06)
[2017-11-23] MEDS: Albumin Human 25% Inj 100 ML IV.SIG SCH ×3 (00:04→16:51)
[2017-11-23] MEDS: Insulin NovoLOG Aspart Correctional Sugar Inj SQ SCH ×4 (01:56→16:59)
[2017-11-23] MEDS: Oral Hygiene Kit OROPHARYNG SCH ×4 (01:57→15:08)
[2017-11-23] MEDS: Propofol 1000 mg/100 ml Inj 1,000 MG/100 ML BOTTLE IV.CONT PRN ×6 (04:17→20:17)
[2017-11-23 05:04] LABS: Hematocrit 22.2 % (35.0-46.0); Hemoglobin 7.5 gm/dL (11.6-15.3); Mean Corpuscular HGB Conc 33.8 % (32.0-36.0); Mean Corpuscular Hemoglobin 29.1 pg (27.0-34.0); Mean Corpuscular Volume 85.9 fL (80.0-100.0); Mean Platelet Volume 8.4 fL (7.0-11.0); Platelet Count 40 th/mm3 (150-450); Red Blood Count 2.58 mil/mm3 (4.00-5.30); Red Cell Distribution Width 17.1 % (11.6-17.2); White Blood Count 9.5 th/mm3 (4.0-11.0)
[2017-11-23 05:31] LABS: ABG PCO2 36 mmHg (38-42); ABG PO2 184 mmHG (61-120)
[2017-11-23 05:35] LABS: Calcium 8.2 mg/dL (8.5-10.1); Carbon Dioxide 17.2 meq/L (21.0-32.0); Magnesium 1.7 mg/dL (1.5-2.5); Phosphorus 4.9 mg/dL (2.5-4.9); Potassium 3.9 meq/L (3.5-5.1)
[2017-11-23] MEDS: Heparin - SQ 10,000 UNITS/ML Vial SQ SCH ×3 (07:09→21:06)
[2017-11-23] MEDS: Folic Acid 1 MG Tablet PO SCH (08:03)
[2017-11-23] MEDS: Duloxetine 60 MG DR Capsule PO SCH (08:03)
[2017-11-23] MEDS: Lactobacillus Acidophilus/L. Spores Tablet PO SCH ×2 (08:03→21:05)
[2017-11-23] MEDS: Pantoprazole Inj 40 MG Vial IV.PUSH SCH (08:03)
[2017-11-23] MEDS: Chlorhexidine 0.12% Oral Kit 15 ML UDC OROPHARYNG SCH ×2 (08:03→23:03)
[2017-11-23] MEDS: Hypromellose 0.3% Opth Gel 10 GM Bottle EACH EYE SCH ×2 (08:04→21:05)
[2017-11-23] MEDS: Heparin Central Flush 100 UNIT/ML 5 ML Vial IV.FLUSH SCH ×2 (08:04)
[2017-11-23] MEDS: fentaNYL 10 mcg/mL Premix Drip 2,500 MCG/250 ML BAG IV.SIG PRN ×2 (08:05→20:19)
--- NOTE | 2017-11-23 09:00 | P.PNFP ---
Subjective Interval history: Patient seen and examined this morning. WBC improved this morning. Hb and platelets trending down. Pt remains intubated and sedated. Receiving tube feeds. Remains tachycardic with labile temperatures. Possible discussion with about goals of care again today. Results - Labs Result diagrams: 11/23/17 04:00 11/23/17 04:00 Abnormal lab results 11/22/17 11/23/17 11/23/17 Range/Units 23:11 04:00 04:00 RBC 2.58 L (4.00-5.30) mil/mm3 Hgb 7.5 L (11.6-15.3) gm/dL Hct 22.2 L (35.0-46.0) % Plt Count 40 L (150-450) th/mm3 ABG pH (7.380-7.420) ABG pCO2 (38-42) mmHg ABG pO2 (61-120) mmHG ABG HCO3 (22-26) mmol/L ABG O2 Content (12.0-20.0) Vol % ABG Base Excess (-2-2) mmol/L Hemoglobin (12.0-16.0) G/DL Chloride 113 H (98-107) meq/L Carbon Dioxide 17.2 L (21.0-32.0) meq/L BUN 58 H (7-18) mg/dL Creatinine 1.75 H (0.50-1.00) mg/dL Estimated GFR 37 L (>89) mL/min POC Glucose 134 H (68-110) mg/dl Calcium 8.2 L (8.5-10.1) mg/dL 11/23/17 Range/Units 05:10 RBC (4.00-5.30) mil/mm3 Hgb (11.6-15.3) gm/dL Hct (35.0-46.0) % Plt Count (150-450) th/mm3 ABG pH 7.26 L* (7.380-7.420) ABG pCO2 36 L (38-42) mmHg ABG pO2 184 H (61-120) mmHG ABG HCO3 16 L* (22-26) mmol/L ABG O2 Content 11.7 L (12.0-20.0) Vol % ABG Base Excess -10.0 L (-2-2) mmol/L Hemoglobin 8.3 L (12.0-16.0) G/DL Chloride (98-107) meq/L Carbon Dioxide (21.0-32.0) meq/L BUN (7-18) mg/dL Creatinine (0.50-1.00) mg/dL Estimated GFR (>89) mL/min POC Glucose (68-110) mg/dl Calcium (8.5-10.1) mg/dL Short CBC 11/23/17 Range/Units 04:00 WBC 9.5 (4.0-11.0) th/mm3 Hgb 7.5 L (11.6-15.3) gm/dL Hct 22.2 L (35.0-46.0) % Plt Count 40 L (150-450) th/mm3 BMP 11/23/17 04:00 Sodium 142 Potassium 3.9 Chloride 113 H Carbon Dioxide 17.2 L BUN 58 H Creatinine 1.75 H Calcium 8.2 L Physical Exam Vital signs: Vital Signs 11/22/17 10:00 11/22/17 11:07 11/22/17 12:00 Temperature 100.4 F H Pulse Rate 125 H 132 H Respiratory Rate 17 16 Blood Pressure 167/77 H Pulse Oximetry 98 98 11/22/17 14:00 11/22/17 15:59 11/22/17 16:00 Temperature 99.5 F Pulse Rate 128 H 120 H Respiratory Rate 16 16 Blood Pressure 137/64 Pulse Oximetry 99 99 11/22/17 18:00 11/22/17 18:33 11/22/17 19:54 Temperature 98.3 F Pulse Rate 118 H 68 113 H Respiratory Rate 20 16 Blood Pressure 177/84 H Pulse Oximetry 98 11/22/17 20:00 11/22/17 22:00 11/23/17 00:00 Temperature 99.0 F 99.0 F Pulse Rate 76 76 113 H Respiratory Rate 37 H 16 Blood Pressure 131/61 127/59 L Pulse Oximetry 100 100 11/23/17 00:18 11/23/17 02:00 11/23/17 03:29 Temperature Pulse Rate 100 H 100 H Respiratory Rate 16 16 Blood Pressure Pulse Oximetry 100 11/23/17 04:00 11/23/17 06:00 11/23/17 08:00 Temperature 99.0 F 97.3 F L Pulse Rate 104 H 107 H 110 H Respiratory Rate 16 16 Blood Pressure 123/57 L 146/65 H Pulse Oximetry 100 100 Intake & Output 11/22/17 11/23/17 11/23/17 18:59 06:59 18:59 Intake Total 1718 / 1718 1422 / 1422 260 / 260 Output Total 1200 / 1200 1400 / 1400 Balance 518 / 518 / 260 / 260 Weight 118.8 kg Intake: IV 1000 / 1000 860 / 860 260 / 260 Diprivan 1000 mg/100 ml Inj 1, 300 / 300 110 / 110 10 / 10 000 mg In 100 ml @ 5 MCG/KG/MIN 3.261 mls/hr IV.CONT TITRATE PRN Rx#:[id number] Flexbumin 25% Inj 100 ML @ 60 200 / 200 100 / 100 mls/hr IV.SIG Q8H [facility] Rx#: [id number] Zyvox 600 mg Premix 300 ML @ 300 / 300 300 / 300 300 mls/hr IV.SIG Q12H [facility] Rx#: [id number] Merrem Inj 1,000 MG In NS Inj 100 / 100 100 / 100 100 ML @ 200 mls/hr IV.SIG Q12H [facility] Rx#:[id number] Mycamine Inj 100 MG In NS Inj 100 / 100 100 ML @ 100 mls/hr IV.SIG Q24H [facility] Rx#:[id number] fentaNYL 10 mcg/mL Premix Drip 250 / 250 250 / 250 2,500 mcg In 250 ml @ 50 MCG/HR 5 mls/hr IV.SIG TITRATE PRN Rx #:[id number] Oral 0 / 0 Tube Feeding 598 / 598 562 / 562 Water Bolus Amount 120 / 120 Output: Urine 1200 / 1200 Stool 100 / 100 200 / 200 Urine Amount (Catheter) 1100 / 1100 Indwelling Urethral Catheter 1100 / 1100 Other: Date of Last Bowel Movement 11/22/17 11/23/17 11/23/17 Narrative: GENERAL: Morbidly obese -[place] female lying in bed intubated and sedated with soft restraints intact. HEENT: Atraumatic, normocephalic. ET tube in place. CARDIOVASCULAR: Tachycardic rate and regular rhythm without obvious murmurs, gallops, or rubs. RESPIRATORY: Bilateral rhonchi throughout. Breath sounds difficult to auscultate due to body habitus and ventilator noise. No increased work of breathing. GASTROINTESTINAL: Obese abdomen, soft. Rectal tube in place with liquid fecal material in reservoir. Hopper catheter in place. MUSCULOSKELETAL: Bilateral upper extremity 2+ edema. Bilateral lower extremity 2 +. SCDs in place. NEURO/PSYCH: Patient intubated and sedated. SKIN: Cool and dry. No rash. PICC line without surrounding erythema, warmth, or other signs of infection. ABD wounds: Transverse suprapubic wound stapled along with midline stapled incision. Currently dry bandages covering wounds clean. - Urinary Catheter Management Female External Cath placed during this visit: no Indwelling Urethral Catheter Cath placed during this visit: yes, but has since been removed by the nurse Reason for continuing: Severe pressure ulcer/wound Insertion date: 10/09/17 Insertion time: 14:00 Removal date: 10/05/17 Removal time: 17:30 Assessment and Plan - Assessment (1) Respiratory failure Code(s): J96.90 - Respiratory failure, unspecified, unspecified whether with hypoxia or hypercapnia Status: Acute Plan: Patient with possible aspiration episode on 11/12/17 with subsequent acute respiratory failure requiring intubation ABG 11/12/17:7.3/33/219/16 CXR 11/15/17: Mild bibasilar consolidation, improved on the right and slightly worse on the left. CXR continues to show stable disease, no change -Patient intubated and sedated -Continues to fail weaning trials -Hop Farm Worker consulted -Palliative care consulted (2) Sepsis Code(s): A41.9 - Sepsis, unspecified organism Status: Acute Plan: Patient meeting sepsis criteria with core body temperature of high/low temp, leukocytosis, and tachycardia. Suspected site of infection as her extensive abdominal wounds w/ C diff as well -Please see plan as below (3) Open wound of abdominal wall Code(s): S31.109A - Unspecified open wound of abdominal wall, unspecified quadrant without penetration into peritoneal cavity, initial encounter Status : Acute Plan: Large abdominal and pelvic wounds that appear not to be healing likely secondary to poor nutritional status -Wound Culture 09/27/17: Pseudomonas and Group B Step -Blood Cultures 10/24/17: Negative -Tissue Cultures 10/09/17: Negative -Abdominal wound culture 11/01/17: Group D Enterococcus, sensitive to Daptomycin ; Fungal species -Blood Culture 11/07/17 per TPN protocol: Negative to date -Blood Culture 11/12/17: NTD -PICC Line/Blood Cultures 11/15/17: no growth to date -Infectious disease consulted -General surgery consulted -Surgical debridement 10/09, wound VAC applied. -VAC changed 10/12 removed 10/15. -Debridement, irrigation, with suturing performed on 10/16. -I&D of abdomen and bilateral thighs, placement of Amniox with wound closure on 11/01/17 -Dressing changes per general surgery Medications: -Meropenem (11/13/17- ) -Micafungin (11/13/17- ) -Linezolid (11/13/17- ) -Dificid (11/15/17 - ) -PO Vanc (10/23/17 - ) Levaquin (11/10/17-11/15/17) -Daptomycin IV for suspected VRE per ID (11/03/17-11/13/17) -Cefepime IV (09/29/17-11/08/17) discontinued due to thrombocytopenia and elevated creatinine -Flagyl (11/10/17-11/13/17) -Diflucan 500mg daily (11/12/17) -Fentanyl added to assist with pain control (4) Aspiration into airway Code(s): T17.908A - Unspecified foreign body in respiratory tract, part unspecified causing other injury, initial encounter Status: Acute Plan: Patient with possible aspiration episode overnight 11/09/17 with another episode on 11/12/17. Patient now with respiratory failure as above Chest x-ray 11/09/12: Interval development of left lower lobe consolidation CXR 11/10/17: Left upper extremity PICC distal tip at the junction of the SVC and brachiocephalic vein. Bibasilar airspace opacity could represent atelectasis versus consolidation. CXR 11/12/17: Interim intubation. Endotracheal tip at the shaka. Small effusion and mild consolidation developing at the right base. Sputum cultures: Gram stain with rare gram positive cocci in pairs, many WBC, mucus; Culture with light growth of normal respiratory lisa at 24 hours. CXR 11/15/17: Mild bibasilar consolidation, improved on the right and slightly worse on the left. CXR 11/19/17: no significant change -Continues to show stable disease -Speech therapy consulted for swallow evaluation once extubated -ID consulted Medications: -Meropenem (11/13/17- ) -Micafungin (11/13/17- ) -Linezolid (11/13/17- ) Levaquin (11/10/17-11/15/17) -Flagyl (11/10/17-11/13/17) (5) C. difficile diarrhea Code(s): A04.72 - Enterocolitis due to Clostridium difficile, not specified as recurrent Status: Acute Plan: C diff cultures positive 10/19/17 Patient meeting criteria for severe C. difficile infection -Vancomycin PO 125 4 times daily (10/23/17- ) -Difficid 200mg BID (11/15/17- ) -Continue with probiotics. -Rectal tube in place (6) Anemia Code(s): D64.9 - Anemia, unspecified Status: Resolved Plan: Patient found to have asymptomatic anemia H/H of 7/20.3 with MCV of 82 on Continues to have anemia/thrombocytopenia 11/21 - given 2 units pRBC with appropriate response -Rectal tube and Hopper catheter without any signs of acute bleeding -Dressings without obvious signs of bleeding -13 units total thus far during admission (11/21/17 most recent) -Consider transfusion if requiring more volume -Continue to monitor (7) Creatinine elevation Code(s): R79.89 - Other specified abnormal findings of blood chemistry Status : Acute Plan: Patient with acute creatinine elevation with starting TPN. -Unknown etiology at this time -Patient with decreasing urinary output -Electrolytes WNL -Stable Cr at this time, although remains elevated -Continue to monitor creatinine, I/Os (8) Thrombocytopenia Code(s): D69.6 - Thrombocytopenia, unspecified Status: Acute Plan: Patient with decreasing platelet count -Etiology unknown -No signs of acute bruising/bleeding on limited skin exam due to body habitus -Continue to monitor -If <50 or signs of bleeding, possible transfusion (9) Poor nutrition Code(s): E63.9 - Nutritional deficiency, unspecified Status: Acute Plan: -Patient with poor nutritional status during hospitalization -Severe concern of poor wound healing secondary to poor nutritional status -Charging Crane Operator consulted for calorie count and nutritional guidance, which has been limited due to NPO status prior to surgery, however patient continues to have poor intake -Multivitamin IV added with Hermes supplementation BID -Albumin levels continued to be decreased -Patient unable to receive 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 Briefly discussed with surgery about the possibility of a JG tube versus surgical placement of PEG tube, deferred as patient will likely not heal from surgical procedure due to nutritional status -NG tube placed with vital 1.5 tube feeds started per dietary TPN, Clinimix E 08/05 @ 65 mls/hr with 20% lipids 250 mls 2x/week (11/07/17-) -Started on Albumin IV overnight (11/19) (10) Schizophrenia Code(s): F20.9 - Schizophrenia, unspecified Status: Chronic Plan: -Psychiatry consulted upon admission -Patient with increased agitation and disorientation on 11/09/17; during episode patient pulled PICC line and attempted to pull out rectal/Hopper; patient required 1 mg Haldol for agitation during episode -Psychiatry consulted for further evaluation Medications: -Haldol 1-2 mg IV/IM every 8 hours as needed for aggressive behavior/agitation -Continue Abilify 30 mg for psychosis -Continue buspirone 30 mg, trazodone 100 mg and Cymbalta 60 mg -Started Mirtazapine 15mg QHS to assist with mood as well as appetite stimulant -Hold anticholinergics per Psych (11) Altered mental status Code(s): R41.82 - Altered mental status, unspecified Status: Acute Plan: Patient with altered mental status overnight 11/11/17 with possible aspiration due to new dysphagia. Patient's mental status continues to decline with a GCS score of 10. Likely related to hypoglycemia as patient did not have access and was not able to receive nutrition via PICC line and is n.p.o. for failed swallow study. -CT Head: Interval enlargement of the ventricular system of uncertain etiology. No clear evidence of an obstructing process. Otherwise stable evaluation without evidence of acute infarct, hemorrhage, mass, or edema. 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 She completed rehabilitation and was discharged home August 23. Patient was on approximately 2 weeks of po Keflex 500 mg. Per Ortho, examination of left knee shows no evidence of infection. (14) Hypertension Code(s): I10 - Essential (primary) hypertension Status: Acute Plan: History of hypertension Hold oral medications below -Continue to monitor -Clonidine PRN for BP > 180/100 (15) Tachycardia Code(s): R00.0 - Tachycardia, unspecified Status: Chronic Plan: -Patient with chronic history of tachycardia -EKG 09/27/17: Sinus tachycardia with rate of [address] or interval changes. (Per medical team read) Medications: -Lopressor 5mg IV PRN for HR >120 if unable to tolerate PO -Continue home diltiazem and carvedilol (16) Nutrition, metabolism, and development symptoms Code(s): R63.8 - Other symptoms and signs concerning food and fluid intake Status: Acute Plan: Fluids: NG tube feeds with Vital 1.5 @ 40 mls/hr goal, plan to wean TPN with SSI as needed Electrolytes: Replete as needed per ICU protocol Nutrition: -Charging Crane Operator consulted for nutritional guidance -NG tube placed and tube feeds started with vital 1.5 at 50 mils per hour (goal) -TPN Clinimix E 08/05 @ 65 mls/hr with 20% lipids 250 mls 2x/week (11/07/17- ); plan to wean as tolerated now that NG tube feeds have been initiated -Started on albumin IV PICC line placed in left upper extremity DVT prophylaxis: SCDs,SQ Heparin per pure pak machine operator - Assessment and Plan 52 y/o female with multi-system organ dysfunction after multiple wound infections, and with severe sepsis and malnutrition. Pt is on maximum ID therapy and conflicting therapies leading to a very poor prognosis. Palliative care is consulted. Discussed with Dr. Mcleod, planning for family meeting at 1pm today. (1) Respiratory failure Qualifiers: Chronicity: acute (3) Open wound of abdominal wall Qualifiers: Encounter type: initial encounter Qualified Code(s): S31.109A - Unspecified open wound of abdominal wall, unspecified quadrant without penetration into peritoneal cavity, initial encounter (4) Aspiration into airway Qualifiers: Encounter type: initial encounter Qualified Code(s): T17.908A - Unspecified foreign body in respiratory tract, part unspecified causing other injury, initial encounter (6) Anemia Qualifiers: Anemia type: unspecified type Qualified Code(s): D64.9 - Anemia, unspecified (11) Altered mental status Qualifiers: Altered mental status type: unspecified Qualified Code(s): R41.82 - Altered mental status, unspecified (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
--- NOTE | 2017-11-23 11:02 | P.PNID ---
Subjective Remarks: ID coverage. 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 Post op it appears she was discharged to a rehab. She was discharged from the rehab to home with her on August 23. Patient reports she lives at home with her who is on disability. Unsure of nature of disability at this time and his ability to take care of her. She was reportedly able to ambulate on her own initially followed by weakness and need for walker and then to a point where she did not want to get out of bed. It has been reported to others that she had some discharge at the left surgical site area and ortho surgeon prescribed oral keflex which reportedly lead to some improvement. She reportedly completed a week of antibiotic treatment with last day scheduled for today with some improvement in her knee pain. However her stated that she was starting to have more drainage from her knee just over the past day or so. He had pointed to several areas that had been draining pus from just above and just below the knee. He stated that a cup full of pus would drain at a time. Additionally the abdominal fold wounds appear to have been present for atleast 3 weeks now. With this background patient presented to the ED with complaints of worsening shortness of breath and mental status accompanied with symptoms of diarrhea (3 days, non-bloody) and decreased p.o. intake (5 days). She was also brought into the hospital due to infection of her knee that improved with Keflex p.o but now has returned with new additional drainage over the past few days. ID consulted for evaluation and Mment of Left knee prosthetic joint infection and neutropenia. Patient underwent incision and debridement of the inferior abdominal wall and proximal inner thighs on 10/12/2017. Since then she has had multiple surgeries done, last one done 11/01, closure of wounds Receiving IV antibiotics for left knee infection/C difficile. CT scan showed small joint effusion and subcutaneous edema of the fat at the left knee. Notes reviewed D/W RN overnight events. Patient is currently on the ventilator. CPAP trials per CCM. Periods of hypothermia. Diarrhea ongoing via rectal tube. Fresh Bleeding from mouth, H/H dropped. Antibiotics: Meropenem Zyvox Micafungin PO Vancomycin Lines: PICC Lines ok. Past Medical History: reviewed Allergies/Adverse Reactions: Allergies amoxicillin Allergy (Verified 09/27/17 17:54) Swelling Objective Vital Signs 11/22/17 11:07 11/22/17 12:00 11/22/17 14:00 Temperature 100.4 F H Pulse Rate 132 H 128 H Respiratory Rate 17 16 Blood Pressure 167/77 H Pulse Oximetry 98 98 11/22/17 15:59 11/22/17 16:00 11/22/17 18:00 Temperature 99.5 F Pulse Rate 120 H 118 H Respiratory Rate 16 16 Blood Pressure 137/64 Pulse Oximetry 99 99 11/22/17 18:33 11/22/17 19:54 11/22/17 20:00 Temperature 98.3 F 99.0 F Pulse Rate 68 113 H 76 Respiratory Rate 20 16 37 H Blood Pressure 177/84 H 131/61 Pulse Oximetry 98 100 11/22/17 22:00 11/23/17 00:00 11/23/17 00:18 Temperature 99.0 F Pulse Rate 76 113 H Respiratory Rate 16 16 Blood Pressure 127/59 L Pulse Oximetry 100 100 11/23/17 02:00 11/23/17 03:29 11/23/17 04:00 Temperature 99.0 F Pulse Rate 100 H 100 H 104 H Respiratory Rate 16 16 Blood Pressure 123/57 L Pulse Oximetry 100 11/23/17 06:00 11/23/17 08:00 11/23/17 09:21 Temperature 97.3 F L Pulse Rate 107 H 110 H Respiratory Rate 16 16 Blood Pressure 146/65 H Pulse Oximetry 100 100 Intake & Output 11/22/17 11/23/17 11/23/17 18:59 06:59 18:59 Intake Total 1718 / 1718 1422 / 1422 260 / 260 Output Total 1200 / 1200 1400 / 1400 Balance 518 / 518 22 / 22 260 / 260 Weight 118.8 kg Intake: IV 1000 / 1000 860 / 860 260 / 260 Diprivan 1000 mg/100 ml Inj 1, 300 / 300 110 / 110 10 / 10 000 mg In 100 ml @ 5 MCG/KG/MIN 3.261 mls/hr IV.CONT TITRATE PRN Rx#:[id number] Flexbumin 25% Inj 100 ML @ 60 200 / 200 100 / 100 mls/hr IV.SIG Q8H [facility] Rx#: [id number] Zyvox 600 mg Premix 300 ML @ 300 / 300 300 / 300 300 mls/hr IV.SIG Q12H [facility] Rx#: [id number] Merrem Inj 1,000 MG In NS Inj 100 / 100 100 / 100 100 ML @ 200 mls/hr IV.SIG Q12H [facility] Rx#:[id number] Mycamine Inj 100 MG In NS Inj 100 / 100 100 ML @ 100 mls/hr IV.SIG Q24H [facility] Rx#:[id number] fentaNYL 10 mcg/mL Premix Drip 250 / 250 250 / 250 2,500 mcg In 250 ml @ 50 MCG/HR 5 mls/hr IV.SIG TITRATE PRN Rx #:[id number] Oral 0 / 0 Tube Feeding 598 / 598 562 / 562 Water Bolus Amount 120 / 120 Output: Urine 1200 / 1200 Stool 100 / 100 200 / 200 Urine Amount (Catheter) 1100 / 1100 Indwelling Urethral Catheter 1100 / 1100 Other: Date of Last Bowel Movement 11/22/17 11/23/17 11/23/17 11/01/17 17:45 Wound - Abdominal Acid Fast Bacilli Smear - Final No acid fast bacilli seen 11/01/17 17:45 Wound - Abdominal Mycobacterial Culture - Preliminary No growth in 3 weeks 11/20/17 12:36 Blood - Line Aerobic Blood Culture - Preliminary No growth in 2 days 11/20/17 12:36 Blood - Line Anaerobic Blood Culture - Preliminary No growth in 2 days 11/20/17 12:28 Blood - Line Aerobic Blood Culture - Preliminary No growth in 2 days 11/20/17 12:28 Blood - Line Anaerobic Blood Culture - Preliminary No growth in 2 days 10/09/17 15:49 Tissue - Abdominal Acid Fast Bacilli Smear - Final No acid fast bacilli seen 10/09/17 15:49 Tissue - Abdominal Mycobacterial Culture - Final No growth in 6 weeks 11/15/17 13:10 Blood - Line Aerobic Blood Culture - Final No growth in 5 days 11/15/17 13:10 Blood - Line Anaerobic Blood Culture - Final No growth in 5 days 11/15/17 12:30 Blood - Peripheral Aerobic Blood Culture - Final No growth in 5 days 11/15/17 12:30 Blood - Peripheral Anaerobic Blood Culture - Final No growth in 5 days 11/15/17 12:35 Blood - Peripheral Aerobic Blood Culture - Final No growth in 5 days 11/15/17 12:35 Blood - Peripheral Anaerobic Blood Culture - Final No growth in 5 days Lab - Hematology Results 11/22/17 11/23/17 03:40 04:00 WBC 11.7 H 9.5 RBC 3.00 L 2.58 L Hgb 8.7 L D 7.5 L Hct 25.9 L 22.2 L MCV 86.1 85.9 MCH 28.9 29.1 MCHC 33.5 33.8 RDW 17.2 17.1 Plt Count 43 L 40 L MPV 8.4 8.4 Lab - Chemistry Results 11/21/17 11/21/17 11/21/17 12:08 17:38 23:46 Sodium Potassium Chloride Carbon Dioxide Anion Gap BUN Creatinine Estimated GFR POC Glucose 90 86 109 Random Glucose Calcium Phosphorus Magnesium 11/22/17 11/22/17 11/22/17 03:40 05:08 10:56 Sodium 141 Potassium 4.1 Chloride 110 H Carbon Dioxide 17.0 L Anion Gap 14 BUN 61 H Creatinine 2.11 H Estimated GFR 30 L POC Glucose 88 97 Random Glucose 94 Calcium 8.8 Phosphorus 4.7 Magnesium 2.1 11/22/17 11/22/17 11/23/17 16:55 23:11 04:00 Sodium 142 Potassium 3.9 Chloride 113 H Carbon Dioxide 17.2 L Anion Gap 12 BUN 58 H Creatinine 1.75 H Estimated GFR 37 L POC Glucose 103 134 H Random Glucose 80 Calcium 8.2 L Phosphorus 4.9 Magnesium 1.7 Imaging: ITS Impressions Tibia/Fibula X-Ray 09/27/17 00:00 CONCLUSION: No acute left leg abnormality is identified. Abdomen/Pelvis CT 09/27/17 08:10 CONCLUSION: 1. Mild hepatic steatosis. 2. Thickening of the colon secondary to lack of distention versus colitis. 3. Left lower lobe consolidation and/or atelectasis. There does appear to be a 1.4 cm cavitary area which makes consolidation likely. Chest CTA 09/27/17 08:22 CONCLUSION: 1. No pulmonary embolus. 2. Consolidation or atelectasis at the left lower lobe. Knee CT 10/18/17 00:00 CONCLUSION: 1. Small joint effusion. 2. Nonspecific subcutaneous edema in the subcutaneous soft tissues above and below the knee. 3. No significant changes compared to the prior exam. Ankle X-Ray 10/19/17 00:00 CONCLUSION: 1. No acute fracture or dislocation. Knee X-Ray 10/19/17 00:00 CONCLUSION: 1. Total knee prosthesis in place. 2. Moderate-sized knee joint effusion. Head CT 11/10/17 00:00 CONCLUSION: 1. Interval enlargement of the ventricular system of uncertain etiology. There is no clear evidence of an obstructing process. 2. Otherwise stable evaluation without evidence of acute infarct, hemorrhage, mass or edema. . Venous Doppler Study 11/10/17 00:00 CONCLUSION: 1. No venous thrombosis is identified within either lower extremity. 2. As described above, secondary to open wounds, the left external iliac, common femoral vein, and greater saphenous veins were not adequately evaluated. Head MRI 11/11/17 00:00 CONCLUSION: 1. Motion artifact is present throughout the scan. 2. Examination is diagnostic. 3. No evidence of acute infarct, hemorrhage, mass or edema. PICC Line Insertion 11/11/17 08:51 CONCLUSION: 1. Uncomplicated central venous Power PICC line placement. 2. The PICC line can be used immediately. Chest X-Ray 11/22/17 04:00 CONCLUSION: 1. Stable chest x-ray with a mild airspace opacity in the left lung base with blunting of the costophrenic sulcus suggesting small pleural effusion. 2. Endotracheal tube tip measures 1 cm from the shaka. Physical Exam: GENERAL: On the vent, NAD. Has warming blanket. Not following commands. Not fully open and eyes. HEENT: Pupils reactive to light. Extraocular movements intact. No icterus. Orally intubated NECK: Supple without adenopathy. No swelling. LUNGS: Decreased breath sounds. HEART: Regular S1 and S2. ABDOMEN: Obese, soft. Nontender. Groin and abdominal area with sutures in place and dressing with some weeping of serous discharge noted.Tunneling noted in the center of the abdomen. There is a large open wound in medial upper L thigh, with yellowish discharge noted. Sacral area could not be examined. EXTREMITIES: Diffuse edema of the extremities. SKIN: No diffuse rash. NEUROLOGIC: Sedated. Moving extremities. Not following commands. PSYCH: Unable to assess LINE: No evidence of infection Assessment and Plan - Plan IMPRESSION: Sepsis. Neutropenic sepsis on admission Abdominal fold cellulitis/skin breakdown. Post incision and debridement and closure of skin fold. General surgery following. s/p panniculectomy. Groin cellulitis, Mons pubis cellulitis/skin breakdown. Leucopenia, pancytopenia: ? MTX, ? Psych meds, ? Sepsis contributing. resolved. Left knee hardware in place. CT with fluid collection. Left knee infection - prior wound culture had Pseudomonas and group B beta strep. PSAE, VRE and Susy glabrata infection of the abdominal wound. Severe Cdiff - Positive PCR C. difficile. Acute resp failure, likely aspiration PNA Acute metabolic encephalopathy: sepsis. RECOMMENDATIONS: Continue Zyvox for MRSA and VRE coverage Continue Meropenem for broader GNR coverage till cultures finalized. Continue Micafungin IV for c.glabrata infection and concern for new line fungemia. Continue po Vanco for C diff. Continue Dificid for severe Cdiff as patient on concomitant antibiotics. Follow blood cultures. Monitor progress D/W RN Reviewed palliative care notes. dw Dr.[facility] about prognosis and ID issues. covering for me this weekend.
--- NOTE | 2017-11-23 13:09 | P.PNPAL ---
Reason for Visit Reason for visit: a. To assist with evaluation and management of symptoms including: dyspnea, pain. b. To assist medical decision maker(s) with: better understanding of current medical conditions; weighing benefits/burdens of medical treatment options; making medical treatment decisions. Subjective Subjective/Interval History: Patient seen and examined in ICU. Sedated, intubated, on vent. Lung sounds coarse. Tachycardic. FiO2 40%. Still acidotic 7.26. Propofol infusing 26ml/ hr. Per RN had some bleeding orally today. Hgb dropped to 7.5. Pt with episodes bradycardia last night, not tolerating position changes. Wounds with moist dressings. +liquid stool in rectal bag. No sign pain. Fentanyl gtt 25ml/hr. Family/Friend Interactions: Attempted to contact patient's but there was no answer and no opportunity to leave a voicemail. Spoke with 's mother Madelyn Mcclain on the phone and she said she would try to contact him for a possible meeting today. Objective Vital Signs: Vital Signs 11/22/17 14:00 11/22/17 15:59 11/22/17 16:00 Temperature 99.5 F Pulse Rate 128 H 120 H Respiratory Rate 16 16 Blood Pressure 137/64 Pulse Oximetry 99 99 11/22/17 18:00 11/22/17 18:33 11/22/17 19:54 Temperature 98.3 F Pulse Rate 118 H 68 113 H Respiratory Rate 20 16 Blood Pressure 177/84 H Pulse Oximetry 98 11/22/17 20:00 11/22/17 22:00 11/23/17 00:00 Temperature 99.0 F 99.0 F Pulse Rate 76 76 113 H Respiratory Rate 37 H 16 Blood Pressure 131/61 127/59 L Pulse Oximetry 100 100 11/23/17 00:18 11/23/17 02:00 11/23/17 03:29 Temperature Pulse Rate 100 H 100 H Respiratory Rate 16 16 Blood Pressure Pulse Oximetry 100 11/23/17 04:00 11/23/17 06:00 11/23/17 08:00 Temperature 99.0 F 97.3 F L Pulse Rate 104 H 107 H 110 H Respiratory Rate 16 16 Blood Pressure 123/57 L 146/65 H Pulse Oximetry 100 100 11/23/17 09:21 11/23/17 10:00 11/23/17 12:00 Temperature 98.2 F Pulse Rate 115 H 119 H Respiratory Rate 16 16 Blood Pressure 125/61 Pulse Oximetry 100 100 Intake & Output 11/22/17 11/23/17 11/23/17 18:59 06:59 18:59 Intake Total 1718 / 1718 1422 / 1422 270 / 270 Output Total 1200 / 1200 1400 / 1400 Balance 518 / 518 22 / 22 270 / 270 Weight 118.8 kg Intake: IV 1000 / 1000 860 / 860 270 / 270 Diprivan 1000 mg/100 ml Inj 1, 300 / 300 110 / 110 20 / 20 000 mg In 100 ml @ 5 MCG/KG/MIN 3.261 mls/hr IV.CONT TITRATE PRN Rx#:[id number] Flexbumin 25% Inj 100 ML @ 60 200 / 200 100 / 100 mls/hr IV.SIG Q8H [place] Rx#: [id number] Zyvox 600 mg Premix 300 ML @ 300 / 300 300 / 300 300 mls/hr IV.SIG Q12H [facility] Rx#: [id number] Merrem Inj 1,000 MG In NS Inj 100 / 100 100 / 100 100 ML @ 200 mls/hr IV.SIG Q12H [facility] Rx#:[id number] Mycamine Inj 100 MG In NS Inj 100 / 100 100 ML @ 100 mls/hr IV.SIG Q24H [facility] Rx#:[id number] fentaNYL 10 mcg/mL Premix Drip 250 / 250 250 / 250 2,500 mcg In 250 ml @ 50 MCG/HR 5 mls/hr IV.SIG TITRATE PRN Rx #:[id number] Oral 0 / 0 Tube Feeding 598 / 598 562 / 562 Water Bolus Amount 120 / 120 Output: Urine 1200 / 1200 Stool 100 / 100 200 / 200 Urine Amount (Catheter) 1100 / 1100 Indwelling Urethral Catheter 1100 / 1100 Other: Date of Last Bowel Movement 11/22/17 11/23/17 11/23/17 Physical Exam: TUBES/LINES/DRAINS: ETT, OG, PIV, rectal tube with liquid stool, herrera. SKIN: skin inner thighs excoriated. thigh wounds with intact dressings HEAD: Atraumatic. Normocephalic. EYES: eyes closed. no EOMI. ENT: Nose without bleeding or purulent drainage. CARDIOVASCULAR:tachycardic, no gallops, or rubs. No JVD. Peripheral pulses symmetric. RESPIRATORY/CHEST: Symmetric, unlabored respirations. coarse lung sounds GASTROINTESTINAL: Abdomen obese, BS hypoactive. abd wounds partially approximated with nedra, no purulence seen. MUSCULOSKELETAL: generalized pitting edema. +LUE wound antecubital region. NEUROLOGICAL: sedated on vent Diagnostic Tests Laboratory: Laboratory Results - last 72 hr 11/16/17 11/21/17 11/21/17 15:10 00:48 03:35 WBC 11.9 H RBC 2.28 L Hgb 6.4 L* Hct 19.4 L* MCV 85.1 MCH 27.9 MCHC 32.8 RDW 17.5 H Plt Count 55 L MPV 8.4 Puncture Site Patient Temperature O2 Saturation ABG pH ABG pCO2 ABG pO2 ABG HCO3 ABG O2 Content ABG Base Excess ABG Methemoglobin Kirk Test Hemoglobin Carboxyhemoglobin O2 Delivery Device Vent Setting Inspired O2 Critical Value Sodium Potassium Chloride Carbon Dioxide Anion Gap BUN Creatinine Estimated GFR POC Glucose 95 Random Glucose Calcium Phosphorus Magnesium Blood Type Antibody Screen MTS Gel Crossmatch See Detail 11/21/17 11/21/17 11/21/17 03:35 05:01 08:15 WBC RBC Hgb Hct MCV MCH MCHC RDW Plt Count MPV Puncture Site Right radial Patient Temperature 98.6 O2 Saturation 91 ABG pH 7.28 L* ABG pCO2 34 L ABG pO2 66 ABG HCO3 15 L* ABG O2 Content 8.4 L ABG Base Excess -10.3 L ABG Methemoglobin 2.0 Kirk Test Present Hemoglobin 6.5 L* Carboxyhemoglobin 1.1 O2 Delivery Device Ventilator Vent Setting Prvc/ ac Inspired O2 40 Critical Value Yes Sodium 140 Potassium 4.3 Chloride 109 H Carbon Dioxide 17.2 L Anion Gap 14 BUN 61 H Creatinine 2.47 H Estimated GFR 25 L POC Glucose Random Glucose 73 L Calcium 8.4 L D Phosphorus 3.9 Magnesium 1.8 Blood Type O Positive Antibody Screen Negative MTS Gel Crossmatch See Detail 11/21/17 11/21/17 11/21/17 12:08 17:38 23:46 WBC RBC Hgb Hct MCV MCH MCHC RDW Plt Count MPV Puncture Site Patient Temperature O2 Saturation ABG pH ABG pCO2 ABG pO2 ABG HCO3 ABG O2 Content ABG Base Excess ABG Methemoglobin Kirk Test Hemoglobin Carboxyhemoglobin O2 Delivery Device Vent Setting Inspired O2 Critical Value Sodium Potassium Chloride Carbon Dioxide Anion Gap BUN Creatinine Estimated GFR POC Glucose 90 86 109 Random Glucose Calcium Phosphorus Magnesium Blood Type Antibody Screen MTS Gel Crossmatch 11/22/17 11/22/17 11/22/17 03:40 03:40 04:10 WBC 11.7 H RBC 3.00 L Hgb 8.7 L D Hct 25.9 L MCV 86.1 MCH 28.9 MCHC 33.5 RDW 17.2 Plt Count 43 L MPV 8.4 Puncture Site Right radial Patient Temperature 98.6 O2 Saturation 96 ABG pH 7.24 L* ABG pCO2 37 L ABG pO2 187 H ABG HCO3 15 L* ABG O2 Content 13.0 ABG Base Excess -10.7 L ABG Methemoglobin 1.9 Kirk Test Present Hemoglobin 9.3 L Carboxyhemoglobin 0.8 O2 Delivery Device Ventilator Vent Setting 16/600/it1.0/5peep Inspired O2 40 Critical Value Yes Sodium 141 Potassium 4.1 Chloride 110 H Carbon Dioxide 17.0 L Anion Gap 14 BUN 61 H Creatinine 2.11 H Estimated GFR 30 L POC Glucose Random Glucose 94 Calcium 8.8 Phosphorus 4.7 Magnesium 2.1 Blood Type Antibody Screen MTS Gel Crossmatch 11/22/17 11/22/17 11/22/17 05:08 10:56 16:55 WBC RBC Hgb Hct MCV MCH MCHC RDW Plt Count MPV Puncture Site Patient Temperature O2 Saturation ABG pH ABG pCO2 ABG pO2 ABG HCO3 ABG O2 Content ABG Base Excess ABG Methemoglobin Kirk Test Hemoglobin Carboxyhemoglobin O2 Delivery Device Vent Setting Inspired O2 Critical Value Sodium Potassium Chloride Carbon Dioxide Anion Gap BUN Creatinine Estimated GFR POC Glucose 88 97 103 Random Glucose Calcium Phosphorus Magnesium Blood Type Antibody Screen MTS Gel Crossmatch 11/22/17 11/23/17 11/23/17 23:11 04:00 04:00 WBC 9.5 RBC 2.58 L Hgb 7.5 L Hct 22.2 L MCV 85.9 MCH 29.1 MCHC 33.8 RDW 17.1 Plt Count 40 L MPV 8.4 Puncture Site Patient Temperature O2 Saturation ABG pH ABG pCO2 ABG pO2 ABG HCO3 ABG O2 Content ABG Base Excess ABG Methemoglobin Kirk Test Hemoglobin Carboxyhemoglobin O2 Delivery Device Vent Setting Inspired O2 Critical Value Sodium 142 Potassium 3.9 Chloride 113 H Carbon Dioxide 17.2 L Anion Gap 12 BUN 58 H Creatinine 1.75 H Estimated GFR 37 L POC Glucose 134 H Random Glucose 80 Calcium 8.2 L Phosphorus 4.9 Magnesium 1.7 Blood Type Antibody Screen MTS Gel Crossmatch 11/23/17 11/23/17 05:10 12:31 WBC RBC Hgb Hct MCV MCH MCHC RDW Plt Count MPV Puncture Site Right radial Patient Temperature 98.6 O2 Saturation 96 ABG pH 7.26 L* ABG pCO2 36 L ABG pO2 184 H ABG HCO3 16 L* ABG O2 Content 11.7 L ABG Base Excess -10.0 L ABG Methemoglobin 1.9 Kirk Test Present Hemoglobin 8.3 L Carboxyhemoglobin 0.9 O2 Delivery Device Ventilator Vent Setting 16/600/it1.0/5peep Inspired O2 40 Critical Value Yes Sodium Potassium Chloride Carbon Dioxide Anion Gap BUN Creatinine Estimated GFR POC Glucose 96 Random Glucose Calcium Phosphorus Magnesium Blood Type Antibody Screen MTS Gel Crossmatch Result Diagrams: 11/23/17 04:00 11/23/17 04:00 Microbiology: Microbiology 11/20/17 12:36 Aerobic Blood Culture - Preliminary Blood - Line No growth in 3 days Anaerobic Blood Culture - Preliminary No growth in 3 days 11/20/17 12:28 Aerobic Blood Culture - Preliminary Blood - Line No growth in 3 days Anaerobic Blood Culture - Preliminary No growth in 3 days 11/01/17 17:45 Acid Fast Bacilli Smear - Final Wound - Abdominal No acid fast bacilli seen Mycobacterial Culture - Preliminary No growth in 3 weeks 10/09/17 15:49 Acid Fast Bacilli Smear - Final Tissue - Abdominal No acid fast bacilli seen Mycobacterial Culture - Final No growth in 6 weeks 11/15/17 13:10 Aerobic Blood Culture - Final Blood - Line No growth in 5 days Anaerobic Blood Culture - Final No growth in 5 days 11/15/17 12:30 Aerobic Blood Culture - Final Blood - Peripheral No growth in 5 days Anaerobic Blood Culture - Final No growth in 5 days 11/15/17 12:35 Aerobic Blood Culture - Final Blood - Peripheral No growth in 5 days Anaerobic Blood Culture - Final No growth in 5 days Procedures: 10/09 underwent I&D of abdominal wall and bilateral thighs, wound VAC placement 10/12 incision and drainage with debridement abdominal wall and bilateral lower thighs, wound VAC change 7/30 wound VAC change and closure of abdominal wall 11/01 I&D abdomen, bilateral thighs 11/12 intubated Assessment and Plan - Disease Oriented Problem List (1) Pneumonia (2) Cellulitis of knee, left (3) Prosthetic joint infection (4) Nutrition, metabolism, and development symptoms (5) Diarrhea (6) Schizophrenia (7) Hypertension (8) Fungal infection of skin of abdomen Pertinent Non-Medical Issues: Psychosocial: Pt is , has 2 children. She is unemployed. Originally from [place], [place], has been in [place] for nearly 40y. Has been 34 years. Spiritual: Congregation. Used to go to hindu but not as much in recent past. Desires pastoral care. Legal: Pt not capacitated to make medical decisions. Per [place] statutes medical decision making falls to her as proxy. Ethical issues impacting care:none Important Contacts: Emile Mcclain Jr [phone], spouse/HCP Emile Johny LEDEZMA [phone], son Prognosis: This is a 52-year-old morbidly obese lady with history of mental illness, rheumatoid arthritis who presented 09/27 with shortness of breath, diarrhea, abdominal pain, change in mental status and was found to have multiple infected wounds in her abdomen, groin, and left knee. She is recently status post left knee replacement in July of this year. She has had multiple I&D's of her abdominal wound, fell causing dehiscence of those wounds and her left knee wound , was on TPN, has been having hypoglycemia, now is in [facility] [place]. Given her morbid obesity, multiple co morbidities, worsening wound infections, poor nutrition status, her prognosis is poor. Code Status: No Code DNR Plan: - LEGAL DECISON MAKER -patient is not capacitated to make medical decisions. Per [place] statutes medical decision making would fall to her as proxy - CODE STATUS-full code - GOALS - transitioning to comfort. Notified by [facility] Dr Mcleod that pt's and proxy elected to make her no code/DNR and compassionate withdrawal is planned for 11/24 around 1500. - SYMPTOMS - * pain - acute and chronic, multifactorial. Has hx RA, s/p knee repalcement 2017, now s/p multiple I&D procedures for mult infected wounds. now sedated on vent, worsening abd wounds, dehiscence. on fentanyl drip. No further recommendations at this time, continue current meds. * debility - hx RA, morbidly obese, now with prolonged hospital stay. had increasing need for assistance at home ambulating and performing ADLs. Pain, persistent infections will be barrier to any aggressive rehab, she has already been bedbound for over a month and deconditioning. * SOB - originally presented with SOB. multifactorial. morbidly obese, at risk for OHS. now intubated on vent. small left pleural effusion. FiO2 40%. tachycardic today. continued acidosis. has joel and PRN duonebs. * agitation/anxiety - acute and chronic. hx bipolar, anxiety. sedated on vent. Takes duloxetine, mirtazipine, buspirone at home, trazodone to sleep. propofol 26 ml/hr. additionally has has PRn haldol here. Psych following, poss delirium. meds per psych, sedation per CCM - d/w RN, c/w CCM - Palliative care will continue to follow during hospital course as condition evolves, to assist patient/decision-maker with understanding of medical conditions, weighing benefits/burdens of treatment options, for clarification of goals of treatment. Additionally will assist with any symptoms of palliative concern Attestation Attestation: To help prompt me to consider important information that might be impacting today's encounter and assessment, information from prior notes written by myself or my colleagues may have been "brought forward" into today's note. My signature on this note, however, is an attestation that I personally performed the exam, history, and/or decision-making noted today, and, unless otherwise indicated, the interactions with patient, family, and staff as well as the review of records all occurred today. I also attest that the listed assessment and stated plan reflect my best clinical judgment today based on the combination of historical information, prior notes, and today's exam/ interactions. When time spent is documented, it refers only to time spent today by the signer, or if indicated, combined time spent today by collaborating physician/nurse practitioner.
--- NOTE | 2017-11-23 13:26 | P.DIET ---
Nutritional Evaluation Type of nutrition evaluation: follow-up Nutrition consult regarding: Tube Feeding, TPN/PPN Nutrition screening: [facility] [place] (10/31 Calorie counting. Pt with decreased intake with healing wounds) Screening comments: 11/06 [facility]. TPN now d/c'ed Subjective Subjective Comments: PEG can not be placed 2' to hx of gastric sleeve. Objective - Diagnosis Sepsis, Anemia, Neutropenia - Objective % IBW: 241 (IBW = 98#) Body Weight Used for Calculations: Upper end of IBW (49 kg) Energy Needs - Lower Range (kCal/kg): 30 Energy Needs - Upper Range (kCal/kg): 35 Lower Limit kCal/kg (kCals): 1,470 Upper Limit kCal/kg (kCals): 1,715 Lower Limit Protein Factor (Grams per Kg): 1.0 Upper Limit Protein Factor (Grams per Kg): 1.5 Lower Protein Needs (Protein): 49 Upper Protein Needs (Protein): 74 Fluid Factor (ml/kg): 35 Estimated Fluid Needs (ml): 1,715 Dietitian Reviewed in Medical Record: Current diet, Curent medications, Intake & Output, Labs, Medical history, Wound/DTI Diet Order: Heart Healthy, 1800 ADA, Ensure tid Wound Care Note: Per Wound Management Note: R and L perineal area- stage 3 Pt also has an open abdominal wound Objective Comments: -Surgical debridement 10/09, wound VAC applied. -VAC changed 10/12 removed 10/15. -Debridement, irrigation, with suturing performed on 10/16. -I&D of abdomen and bilateral thighs, placement of Amniox with wound closure on 11/01/17 Feeding - Current Tube Feeding Tube Feeding Product: Vital 1.5 Tube Feeding Rate: 50 Assessment Assessment: Transferred to [facility] [place] and intubated the evening of the October the . TPN d/c' ed. TFing initiated on 11/14. Pt is receiving Vital 1.5 @ 50 mls/hr to provide 1800 kcals, 81 gms protein and 917 mls of free water. Some additional kcals will be provided when propofol is running (1.1 kcal/ml). Labs, wts and clinical course reviewed. CBW = 118.8 kg Please note that PREALB/ALBUMIN are no longer considered indicators for malnutrition. They are acute phase proteins and reflect severity of inflammation response rather than nutritional status. They do not respond to feeding interventions Recommendations: Continue Vital 1.5 @ 50 mls/hr goal Dietitian to Monitor: Lab values, Tube feeding tolerance, Weight change, Wound/ skin status, Medical course
--- NOTE | 2017-11-23 13:38 | P.PNGS ---
Subjective Patient reports: diarrhea (remains intubated sedated wbc better) Physical Exam Vital signs: Vital Signs 11/22/17 14:00 11/22/17 15:59 11/22/17 16:00 Temperature 99.5 F Pulse Rate 128 H 120 H Respiratory Rate 16 16 Blood Pressure 137/64 Pulse Oximetry 99 99 11/22/17 18:00 11/22/17 18:33 11/22/17 19:54 Temperature 98.3 F Pulse Rate 118 H 68 113 H Respiratory Rate 20 16 Blood Pressure 177/84 H Pulse Oximetry 98 11/22/17 20:00 11/22/17 22:00 11/23/17 00:00 Temperature 99.0 F 99.0 F Pulse Rate 76 76 113 H Respiratory Rate 37 H 16 Blood Pressure 131/61 127/59 L Pulse Oximetry 100 100 11/23/17 00:18 11/23/17 02:00 11/23/17 03:29 Temperature Pulse Rate 100 H 100 H Respiratory Rate 16 16 Blood Pressure Pulse Oximetry 100 11/23/17 04:00 11/23/17 06:00 11/23/17 08:00 Temperature 99.0 F 97.3 F L Pulse Rate 104 H 107 H 110 H Respiratory Rate 16 16 Blood Pressure 123/57 L 146/65 H Pulse Oximetry 100 100 11/23/17 09:21 11/23/17 10:00 11/23/17 12:00 Temperature 98.2 F Pulse Rate 115 H 119 H Respiratory Rate 16 16 Blood Pressure 125/61 Pulse Oximetry 100 100 Intake & Output 11/22/17 11/23/17 11/23/17 18:59 06:59 18:59 Intake Total 1718 / 1718 1422 / 1422 270 / 270 Output Total 1200 / 1200 1400 / 1400 Balance 518 / 518 22 / 22 270 / 270 Weight 118.8 kg Intake: IV 1000 / 1000 860 / 860 270 / 270 Diprivan 1000 mg/100 ml Inj 1, 300 / 300 110 / 110 20 / 20 000 mg In 100 ml @ 5 MCG/KG/MIN 3.261 mls/hr IV.CONT TITRATE PRN Rx#:[id number] Flexbumin 25% Inj 100 ML @ 60 200 / 200 100 / 100 mls/hr IV.SIG Q8H [place] Rx#: [id number] Zyvox 600 mg Premix 300 ML @ 300 / 300 300 / 300 300 mls/hr IV.SIG Q12H [place] Rx#: [id number] Merrem Inj 1,000 MG In NS Inj 100 / 100 100 / 100 100 ML @ 200 mls/hr IV.SIG Q12H [place] Rx#:[id number] Mycamine Inj 100 MG In NS Inj 100 / 100 100 ML @ 100 mls/hr IV.SIG Q24H [place] Rx#:[id number] fentaNYL 10 mcg/mL Premix Drip 250 / 250 250 / 250 2,500 mcg In 250 ml @ 50 MCG/HR 5 mls/hr IV.SIG TITRATE PRN Rx #:[id number] Oral 0 / 0 Tube Feeding 598 / 598 562 / 562 Water Bolus Amount 120 / 120 Output: Urine 1200 / 1200 Stool 100 / 100 200 / 200 Urine Amount (Catheter) 1100 / 1100 Indwelling Urethral Catheter 1100 / 1100 Other: Date of Last Bowel Movement 11/22/17 11/23/17 11/23/17 - Routine HEENT Exam ENT: Present: sinus tenderness - Routine Abdominal Exam Present: soft (incision on abd well approximated, thighs on left wet to to dry serous drainage, no abscess) - Urinary Catheter Management Female External Cath placed during this visit: no Indwelling Urethral Catheter Cath placed during this visit: yes, but has since been removed by the nurse Reason for continuing: Severe pressure ulcer/wound Insertion date: 10/09/17 Insertion time: 14:00 Removal date: 10/05/17 Removal time: 17:30 Assessment and Plan - Assessment (1) Fungal infection of skin of abdomen Code(s): B36.9 - Superficial mycosis, unspecified Status: Acute Plan: 52 year old female with large abdominal/thigh wounds -intubated in [facility] -Palliative Care following -Continue wound care, stable wounds - will follow along - Plan patient seen at bedside vent mgnt per icu keep wound dry frequent dressing changes as needed, wound care ID following family requesting full aggressive tx- will continue to discuss prognosis and outcome- defer to palliative care poor prognosis c.diff agressive tx tube feeds will follow peripherally over the weekend
--- NOTE | 2017-11-23 13:49 | P.PNCC ---
Subjective Subjective Remarks/Hospital Course: This is a 52-year-old female with a very complex medical history who was admitted back in September 2017 for postoperative wound infection from her total knee arthroplasty. Her course has been complicated by multiple necrotizing soft tissue infections. She additionally has failure to thrive and severe acute protein calorie malnutrition for which she has been on total parenteral nutrition. She intermittently becomes agitated and pulls out her IV access. Today she was on the floor when she became worsening the febrile and altered. She pulled out her own PICC line overnight, and nursing staff was unable to reobtain IV access. Because she was off TPN she became quite hypoglycemic which was refractory to non-intravenous methods of glucose administration. Urgently a new PICC line was placed by interventional radiology and she was given IV dextrose. When her glucose improved, her mental status improved as well. She is transferred to the ICU for management of worsening recurrent sepsis, worsening wound infection, and hypoglycemia. When I evaluated the patient, she was more awake, nonfocal, moving all extremities. She endorses fatigue, but denies other symptoms. She specifically denies chest pain, shortness of breath, fever, chills, nausea, vomiting, abdominal pain. She does endorse diarrhea and has a rectal tube in place. She has a recent history of active C. difficile infection. Remainder of the review systems is negative unless otherwise stated. 11/12: Lying in bed no acute distress intermittently confused but follows commands, pleasant. WBC count stable at 11.7. On TPN hypoglycemia has resolved. Discussed with Dr. Schneider 11/13: Intubated and placed on mechanical ventilation yesterday evening for desaturation and lack of airway protection. Creatinine has increased to 1.5 potassium is 2.8 getting replaced. On light sedation patient does follow commands. Antibiotics have been broadened to Zyvox meropenem and Levaquin and micafungin. Continue p.o. vancomycin for C Diff 11/14: Patient intubated sedated with propofol. Wakes up follows some commands but did not tolerate CPAP due to tachypnea. WBC count worsening currently 15.1. Also worsening creatinine 1.8. Some evidence of worsening wound infection in the lower abdomen pelvic region. Lower abdominal and left thigh incisions with increasing drainage 11/15: Remains intubated, sedated, becoming more septic and hypothermic. WBC count is 15.7 creatinine is 1.9 meets criteria for severe C. difficile colitis. Infectious disease following, currently on p.o. vancomycin for C. difficile ID is adding Dificid to the regimen. If not clinically improving need CT of the abdomen pelvis. Worsening sepsis most likely from worsening C. difficile than wound infection 11/16: Continued persistent hypotension. Discussed with Surgical Service. Acts like continued septic course. No other major changes. Will require transfusion soon. Subjective 11/17: Low-grade temperatures overnight. Tube feeds currently at goal of 50 cc an hour with vital 1.5. Positive BM. Hemoglobin currently 8.4. 11/18: no real improvements or changes. still failing vent weaning. 11/19: Hypothermic, requiring warming blanket. Continued vent dependent respiratory failure. Continued metabolic derangements requiring fluid resuscitation. 11/20: Patient continues to have several liters of insensible losses per day via wound drainage and diarrhea. I started her on scheduled albumin overnight with no improvement in metabolic acidosis or base deficit. She continued to be hypothermic overnight. 11/21: Continued metabolic acidosis/ base deficitemia. Hg 6.5 this morning with no obvious source of bleeding. Family meeting today at 1 PM to discuss the patient's current status, prognosis, and to discuss goals of care. 11/22: Family meeting held yesterday, please see Event Note. No decisions thus far regarding code status. I explained to the family that there are no additional medical or surgical options available to offer that the patient has not already received. She continues to be tachycardic, hypothermic, and acidotic ; there has been no improvement over the past several days. She requires around the clock albumin and constant rewarming via Jatin Hugger in order to maintain normothermia. 11/23: Patient noted to become profoundly bradycardic (HR in 20s) while turning for nursing care overnight. Continues to require Jatin Hugger for hypothermia. Objective Vital Signs / I&O: Vital Signs 11/22/17 14:00 11/22/17 15:59 11/22/17 16:00 Temperature 99.5 F Pulse Rate 128 H 120 H Respiratory Rate 16 16 Blood Pressure 137/64 Pulse Oximetry 99 99 11/22/17 18:00 11/22/17 18:33 11/22/17 19:54 Temperature 98.3 F Pulse Rate 118 H 68 113 H Respiratory Rate 20 16 Blood Pressure 177/84 H Pulse Oximetry 98 11/22/17 20:00 11/22/17 22:00 11/23/17 00:00 Temperature 99.0 F 99.0 F Pulse Rate 76 76 113 H Respiratory Rate 37 H 16 Blood Pressure 131/61 127/59 L Pulse Oximetry 100 100 11/23/17 00:18 11/23/17 02:00 11/23/17 03:29 Temperature Pulse Rate 100 H 100 H Respiratory Rate 16 16 Blood Pressure Pulse Oximetry 100 11/23/17 04:00 11/23/17 06:00 11/23/17 08:00 Temperature 99.0 F 97.3 F L Pulse Rate 104 H 107 H 110 H Respiratory Rate 16 16 Blood Pressure 123/57 L 146/65 H Pulse Oximetry 100 100 11/23/17 09:21 11/23/17 10:00 11/23/17 12:00 Temperature 98.2 F Pulse Rate 115 H 119 H Respiratory Rate 16 16 Blood Pressure 125/61 Pulse Oximetry 100 100 Intake & Output 11/22/17 11/23/17 11/23/17 18:59 06:59 18:59 Intake Total 1718 / 1718 1422 / 1422 270 / 270 Output Total 1200 / 1200 1400 / 1400 Balance 518 / 518 22 / 22 270 / 270 Weight 118.8 kg Intake: IV 1000 / 1000 860 / 860 270 / 270 Diprivan 1000 mg/100 ml Inj 1, 300 / 300 110 / 110 20 / 20 000 mg In 100 ml @ 5 MCG/KG/MIN 3.261 mls/hr IV.CONT TITRATE PRN Rx#:[id number] Flexbumin 25% Inj 100 ML @ 60 200 / 200 100 / 100 mls/hr IV.SIG Q8H [facility] Rx#: [id number] Zyvox 600 mg Premix 300 ML @ 300 / 300 300 / 300 300 mls/hr IV.SIG Q12H [facility] Rx#: [id number] Merrem Inj 1,000 MG In NS Inj 100 / 100 100 / 100 100 ML @ 200 mls/hr IV.SIG Q12H [facility] Rx#:[id number] Mycamine Inj 100 MG In NS Inj 100 / 100 100 ML @ 100 mls/hr IV.SIG Q24H [facility] Rx#:[id number] fentaNYL 10 mcg/mL Premix Drip 250 / 250 250 / 250 2,500 mcg In 250 ml @ 50 MCG/HR 5 mls/hr IV.SIG TITRATE PRN Rx #:[id number] Oral 0 / 0 Tube Feeding 598 / 598 562 / 562 Water Bolus Amount 120 / 120 Output: Urine 1200 / 1200 Stool 100 / 100 200 / 200 Urine Amount (Catheter) 1100 / 1100 Indwelling Urethral Catheter 1100 / 1100 Other: Date of Last Bowel Movement 11/22/17 11/23/17 11/23/17 Result Diagrams: 11/23/17 04:00 11/23/17 04:00 Objective Remarks: GENERAL: Intubated and sedated HEENT: NCAT NECK: ETT and NGT present CHEST: Mechanical breath sounds bilaterally, faint expiratory wheeze on left CARDIOVASCULAR: Tachy to 110s, regular ABDOMEN: Morbidly obese, soft, non-tender in all quadrants. Extensive wounds remain unchanged MUSCULOSKELETAL: Pitting anasarca to all extremities NEUROLOGICAL: GCS 7T ([id number]) on sedation, RASS -2, appears comfortable Assessment and Plan - Assessment and Plan Plan: Assessment: 52-year-old female with an extensive recent medical history including multiple wound infections and severe acute protein calorie malnutrition who presents with recurrent severe sepsis and wound infection. Patient's code status changed to DNR by her today (see below). Active problems: Severe Sepsis Acute hypoxemic respiratory failure Metabolic encephalopathy Severe sepsis Severe C diff colitis Deep tissue wound infection lower abdomen and perineum Severe hypoglycemia-resolved Elevated BMI Leukocytosis Normocytic anemia Thrombocytopenia Depressive disorder NOS Hyperlipidemia Acute kidney injury creatinine currently 2.48 Plan: NEURO: Sedated with propofol and fentanyl gtt for pain control. Continue home meds. No sedation vacation necessary today as we are transitioning toward comfort-based measures (see below) CARDIO: Patient has persistent sinus tachycardia, likely secondary to infection/ anemia / SIRS Continue diltiazem and metoprolol RESP: Continue mechanical ventilation, no need for spontaneous breathing trial today F/E/N: D/C albumin Tube feeds at goal : Creat stable ID: Continue antibiotics HEME: No further blood transfusions as we are transitioning to comfort-based measures Overall: I spoke with the patient's Emile, who has had time to discuss plans with his son and daughter. He would like to change the patient's code status to DNR and plans on having extended family come tomorrow afternoon around 3 PM to transition the patient to comfort-based measures and compassionate extubation. Palliative care team informed. Famotidine for GI prophylaxis. SCDs/ SQH for DVT prophylaxis. Counseling/ Coordination of Care: Total critical care time: 32 minutes. This includes examining the patient, managing the patient's vital signs and ventilator settings, discussion with other providers, managing the patient's pain and sedation requirements, and documentation. All critical care time is separate and exclusive of procedures, teaching, and patient/ family updates.
[2017-11-23] MEDS: traZODone 100 MG Tablet PO SCH (21:05)
[2017-11-23] MEDS: Mirtazapine 15 MG Tablet PO SCH (21:05)
[2017-11-24] MEDS: Propofol 1000 mg/100 ml Inj 1,000 MG/100 ML BOTTLE IV.CONT PRN ×6 (00:31→23:23)
[2017-11-24] MEDS: Oral Hygiene Kit OROPHARYNG SCH ×4 (00:35→16:24)
[2017-11-24] MEDS: Insulin NovoLOG Aspart Correctional Sugar Inj SQ SCH ×4 (00:35→17:01)
[2017-11-24] MEDS: Heparin - SQ 10,000 UNITS/ML Vial SQ SCH ×2 (05:05→13:20)
[2017-11-24] MEDS: fentaNYL 10 mcg/mL Premix Drip 2,500 MCG/250 ML BAG IV.SIG PRN ×3 (05:51→23:24)
[2017-11-24] MEDS: Folic Acid 1 MG Tablet PO SCH (08:13)
[2017-11-24] MEDS: Lactobacillus Acidophilus/L. Spores Tablet PO SCH ×2 (08:13→23:22)
[2017-11-24] MEDS: Duloxetine 60 MG DR Capsule PO SCH (08:15)
[2017-11-24] MEDS: Pantoprazole Inj 40 MG Vial IV.PUSH SCH (08:15)
--- NOTE | 2017-11-24 08:55 | P.PNFP ---
Subjective Interval history: Patient seen and examined this morning. Remains intubated and sedated. Discussion with yesterday, who changed code status to DNR. Planning on comfort measures today around 3pm. <Simon Devine - 11/24/17 08:55> Results - Labs Result diagrams: 11/23/17 04:00 11/23/17 04:00 <Maddy Jackson - 11/26/17 08:54> Physical Exam Vital signs: Vital Signs 11/25/17 09:00 11/25/17 10:00 11/25/17 12:00 Temperature 98.8 F Pulse Rate 136 H 144 H 156 H Respiratory Rate 16 16 Blood Pressure 154/76 H Pulse Oximetry 100 11/25/17 12:25 11/25/17 14:00 11/25/17 16:00 Temperature Pulse Rate 166 H 163 H Respiratory Rate 16 16 Blood Pressure Pulse Oximetry 11/25/17 18:00 11/25/17 20:00 11/25/17 21:58 Temperature Pulse Rate 160 H 162 H Respiratory Rate 20 20 Blood Pressure Pulse Oximetry 11/25/17 22:00 Temperature Pulse Rate 150 H Respiratory Rate Blood Pressure Pulse Oximetry Intake & Output 11/25/17 11/26/17 11/26/17 18:59 06:59 18:59 Intake Total 600 / 600 Balance 600 / 600 Intake: IV 600 / 600 Diprivan 1000 mg/100 ml Inj 1, 100 / 100 000 mg In 100 ml @ 5 MCG/KG/MIN 3.261 mls/hr IV.CONT TITRATE PRN Rx#:[id number] fentaNYL 10 mcg/mL Premix Drip 500 / 500 2,500 mcg In 250 ml @ 50 MCG/HR 5 mls/hr IV.SIG TITRATE PRN Rx #:[id number] Other: Date of Last Bowel Movement 11/25/17 11/25/17 <Maddy Jackson M - 11/26/17 08:54> Vital Signs 11/23/17 09:21 11/23/17 10:00 11/23/17 12:00 Temperature 98.2 F Pulse Rate 115 H 119 H Respiratory Rate 16 16 Blood Pressure 125/61 Pulse Oximetry 100 100 11/23/17 13:52 11/23/17 14:00 11/23/17 16:00 Temperature 98.8 F Pulse Rate 114 H 120 H Respiratory Rate 16 16 Blood Pressure 141/65 H Pulse Oximetry 100 100 11/23/17 17:06 11/23/17 18:00 11/23/17 19:00 Temperature 98.8 F Pulse Rate 121 H 123 H Respiratory Rate 16 16 Blood Pressure 164/77 H Pulse Oximetry 100 100 11/23/17 19:30 11/23/17 19:58 11/23/17 20:00 Temperature 98.8 F 99.0 F Pulse Rate 120 H 119 H Respiratory Rate 16 18 16 Blood Pressure 165/77 H 153/72 H Pulse Oximetry 100 100 100 11/23/17 20:23 11/23/17 20:30 11/23/17 21:00 Temperature 99.0 F 99.0 F 98.8 F Pulse Rate 120 H 121 H 122 H Respiratory Rate 16 16 16 Blood Pressure 155/72 H 155/71 H 154/73 H Pulse Oximetry 100 100 100 11/23/17 21:30 11/23/17 22:00 11/23/17 22:30 Temperature 98.8 F 98.4 F 98.1 F Pulse Rate 122 H 123 H 118 H Respiratory Rate 17 17 16 Blood Pressure 164/76 H 153/72 H 158/74 H Pulse Oximetry 100 100 100 11/23/17 23:00 11/23/17 23:30 11/24/17 00:00 Temperature 97.9 F 97.7 F 97.3 F L Pulse Rate 114 H 112 H 117 H Respiratory Rate 16 18 16 Blood Pressure 151/72 H 170/79 H 160/75 H Pulse Oximetry 100 100 100 11/24/17 00:30 11/24/17 01:00 11/24/17 01:30 Temperature 97.2 F L 96.8 F L 96.6 F L Pulse Rate 111 H 108 H 107 H Respiratory Rate 16 16 16 Blood Pressure 171/81 H 163/79 H 163/77 H Pulse Oximetry 100 100 100 11/24/17 02:00 11/24/17 02:30 11/24/17 03:00 Temperature 96.4 F L 96.3 F L 96.1 F L Pulse Rate 103 H 98 H 97 H Respiratory Rate 16 16 16 Blood Pressure 167/80 H 175/80 H 180/81 H Pulse Oximetry 100 100 100 11/24/17 03:30 11/24/17 04:00 09/08/18 05:11 Temperature 95.9 F L 95.7 F L Pulse Rate 95 H 93 H Respiratory Rate 16 16 16 Blood Pressure 174/79 H 171/79 H Pulse Oximetry 100 100 100 11/24/17 06:00 11/24/17 08:48 Temperature Pulse Rate 92 H Respiratory Rate 16 Blood Pressure Pulse Oximetry 100 Intake & Output 11/23/17 11/24/17 11/24/17 18:59 06:59 18:59 Intake Total 1386 / 1386 2308 / 2308 10 10 Output Total 2400 / 2400 2300 / 2300 Balance -1014 / -1014 Weight 119.1 kg Intake: IV 470 / 470 1800 / 1800 10 / 10 Diprivan 1000 mg/100 ml Inj 1, 120 / 120 300 / 300 10 / 10 000 mg In 100 ml @ 5 MCG/KG/MIN 3.261 mls/hr IV.CONT TITRATE PRN Rx#:[id number] Flexbumin 25% Inj 100 ML @ 60 100 / 100 100 / 100 mls/hr IV.SIG Q8H [place] Rx#: [id number] Zyvox 600 mg Premix 300 ML @ 600 / 600 300 mls/hr IV.SIG Q12H [place] Rx#: [id number] Merrem Inj 1,000 MG In NS Inj 200 / 200 100 ML @ 200 mls/hr IV.SIG Q12H [place] Rx#:[id number] Mycamine Inj 100 MG In NS Inj 100 / 100 100 ML @ 100 mls/hr IV.SIG Q24H [place] Rx#:[id number] fentaNYL 10 mcg/mL Premix Drip 250 / 250 500 / 500 2,500 mcg In 250 ml @ 50 MCG/HR 5 mls/hr IV.SIG TITRATE PRN Rx #:[id number] Oral 0 / 0 0 / 0 Tube Feeding 796 / 796 508 / 508 Water Bolus Amount 120 / 120 Output: Urine 1600 / 1600 Stool 800 / 800 400 / 400 Urine Amount (Catheter) 1900 / 1900 Indwelling Urethral Catheter 1899 / 1900 Other: Date of Last Bowel Movement 11/23/17 11/24/17 <Simon Devine - 11/24/17 08:55> Narrative: GENERAL: Morbidly obese -Welsh female lying in bed intubated and sedated with soft restraints intact. HEENT: Atraumatic, normocephalic. ET tube in place. CARDIOVASCULAR: Tachycardic rate and regular rhythm without obvious murmurs, gallops, or rubs. RESPIRATORY: Bilateral rhonchi throughout. Breath sounds difficult to auscultate due to body habitus and ventilator noise. No increased work of breathing. GASTROINTESTINAL: Obese abdomen, soft. Rectal tube in place with liquid fecal material in reservoir. Hopper catheter in place. MUSCULOSKELETAL: Bilateral upper extremity 2+ edema. Bilateral lower extremity 2 +. SCDs in place. NEURO/PSYCH: Patient intubated and sedated. SKIN: Cool and dry. No rash. PICC line without surrounding erythema, warmth, or other signs of infection. ABD wounds: Transverse suprapubic wound stapled along with midline stapled incision. Currently dry bandages covering wounds clean. <Simon Devine 11/24/17 08:55> - Urinary Catheter Management Female External Cath placed during this visit: no <Maddy Jackson 11/26/17 08:54> no <Simon Devine 11/24/17 09:30> Indwelling Urethral Catheter Cath placed during this visit: no <Maddy Jackson 11/26/17 08:54> yes, but has since been removed by the nurse <Simon Devine 11/24/17 09:30> Reason for continuing: Severe pressure ulcer/wound <Simon Devine 08:55> Insertion date: 09/27/17 <Simon Devine 11/24/17 08:55> Insertion time: 08:20 <Simon Devine 11/24/17 08:55> Removal date: 10/05/17 <Simon Devine 11/24/17 08:55> Removal time: 17:30 <Simon Devine 11/24/17 08:55> Assessment and Plan - Assessment (1) Respiratory failure Code(s): J96.90 - Respiratory failure, unspecified, unspecified whether with hypoxia or hypercapnia Status: Acute (2) Sepsis Code(s): A41.9 - Sepsis, unspecified organism Status: Acute (3) Open wound of abdominal wall Code(s): S31.109A - Unspecified open wound of abdominal wall, unspecified quadrant without penetration into peritoneal cavity, initial encounter Status : Acute (4) Aspiration into airway Code(s): T17.908A - Unspecified foreign body in respiratory tract, part unspecified causing other injury, initial encounter Status: Acute (5) C. difficile diarrhea Code(s): A04.72 - Enterocolitis due to Clostridium difficile, not specified as recurrent Status: Acute (6) Anemia Code(s): D64.9 - Anemia, unspecified Status: Resolved (7) Creatinine elevation Code(s): R79.89 - Other specified abnormal findings of blood chemistry Status : Acute (8) Thrombocytopenia Code(s): D69.6 - Thrombocytopenia, unspecified Status: Acute (9) Poor nutrition Code(s): E63.9 - Nutritional deficiency, unspecified Status: Acute (10) Schizophrenia Code(s): F20.9 - Schizophrenia, unspecified Status: Chronic (11) Altered mental status Code(s): R41.82 - Altered mental status, unspecified Status: Acute (12) Cellulitis of knee, left Code(s): L03.116 - Cellulitis of left lower limb Status: Acute (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 - Infection and inflammatory reaction due to unspecified internal joint prosthesis, initial encounter Status: Suspected (14) Hypertension Code(s): I10 - Essential (primary) hypertension Status: Acute (15) Tachycardia Code(s): R00.0 - Tachycardia, unspecified Status: Chronic (16) Nutrition, metabolism, and development symptoms Code(s): R63.8 - Other symptoms and signs concerning food and fluid intake Status: Acute <Maddy Jackson - 11/26/17 08:54> (1) Respiratory failure Code(s): J96.90 - Respiratory failure, unspecified, unspecified whether with hypoxia or hypercapnia Status: Acute Plan: Patient with possible aspiration episode on 11/12/17 with subsequent acute respiratory failure requiring intubation ABG 11/12/17:7.3/33/219/16 CXR 11/15/17: Mild bibasilar consolidation, improved on the right and slightly worse on the left. CXR continues to show stable disease, no change -Patient intubated and sedated -Continues to fail weaning trials -Provider Network Analyst consulted -Palliative care consulted (2) Sepsis Code(s): A41.9 - Sepsis, unspecified organism Status: Acute Plan: Patient meeting sepsis criteria with core body temperature of high/low temp, leukocytosis, and tachycardia. Suspected site of infection as her extensive abdominal wounds w/ C diff as well -Please see plan as below (3) Open wound of abdominal wall Code(s): S31.109A - Unspecified open wound of abdominal wall, unspecified quadrant without penetration into peritoneal cavity, initial encounter Status : Acute Plan: Large abdominal and pelvic wounds that appear not to be healing likely secondary to poor nutritional status -Wound Culture 09/27/17: Pseudomonas and Group B Step -Blood Cultures 10/24/17: Negative -Tissue Cultures 10/09/17: Negative -Abdominal wound culture 11/01/17: Group D Enterococcus, sensitive to Daptomycin ; Fungal species -Blood Culture 11/07/17 per TPN protocol: Negative to date -Blood Culture 11/12/17: NTD -PICC Line/Blood Cultures 11/15/17: no growth to date -Infectious disease consulted -General surgery consulted -Surgical debridement 10/09, wound VAC applied. -VAC changed 10/12 removed 10/15. -Debridement, irrigation, with suturing performed on 10/16. -I&D of abdomen and bilateral thighs, placement of Amniox with wound closure on 11/01/17 -Dressing changes per general surgery Medications: -Meropenem (11/13/17- ) -Micafungin (11/13/17- ) -Linezolid (11/13/17- ) -Dificid (11/15/17 - ) -PO Vanc (10/23/17 - ) Levaquin (11/10/17-11/15/17) -Daptomycin IV for suspected VRE per ID (11/03/17-11/13/17) -Cefepime IV (09/29/17-11/08/17) discontinued due to thrombocytopenia and elevated creatinine -Flagyl (11/10/17-11/13/17) -Diflucan 500mg daily (11/12/17) -Fentanyl added to assist with pain control (4) Aspiration into airway Code(s): T17.908A - Unspecified foreign body in respiratory tract, part unspecified causing other injury, initial encounter Status: Acute Plan: Patient with possible aspiration episode overnight 11/09/17 with another episode on 11/12/17. Patient now with respiratory failure as above Chest x-ray 11/09/12: Interval development of left lower lobe consolidation CXR 11/10/17: Left upper extremity PICC distal tip at the junction of the SVC and brachiocephalic vein. Bibasilar airspace opacity could represent atelectasis versus consolidation. CXR 11/12/17: Interim intubation. Endotracheal tip at the shaka. Small effusion and mild consolidation developing at the right base. Sputum cultures: Gram stain with rare gram positive cocci in pairs, many WBC, mucus; Culture with light growth of normal respiratory lisa at 24 hours. CXR 11/15/17: Mild bibasilar consolidation, improved on the right and slightly worse on the left. CXR 11/19/17: no significant change -Continues to show stable disease -Speech therapy consulted for swallow evaluation once extubated -ID consulted Medications: -Meropenem (11/13/17- ) -Micafungin (11/13/17- ) -Linezolid (11/13/17- ) Levaquin (11/10/17-11/15/17) -Flagyl (11/10/17-11/13/17) (5) C. difficile diarrhea Code(s): A04.72 - Enterocolitis due to Clostridium difficile, not specified as recurrent Status: Acute Plan: C diff cultures positive 10/19/17 Patient meeting criteria for severe C. difficile infection -Vancomycin PO 125 4 times daily (10/23/17- ) -Difficid 200mg BID (11/15/17- ) -Continue with probiotics. -Rectal tube in place (6) Anemia Code(s): D64.9 - Anemia, unspecified Status: Resolved Plan: Patient found to have asymptomatic anemia H/H of 7/20.3 with MCV of 82 on Continues to have anemia/thrombocytopenia 11/21 - given 2 units pRBC with appropriate response -Rectal tube and Hopper catheter without any signs of acute bleeding -Dressings without obvious signs of bleeding -13 units total thus far during admission (11/21/17 most recent) -Consider transfusion if requiring more volume -Continue to monitor (7) Creatinine elevation Code(s): R79.89 - Other specified abnormal findings of blood chemistry Status : Acute Plan: Patient with acute creatinine elevation with starting TPN. -Unknown etiology at this time -Patient with decreasing urinary output -Electrolytes WNL -Stable Cr at this time, although remains elevated -Continue to monitor creatinine, I/Os (8) Thrombocytopenia Code(s): D69.6 - Thrombocytopenia, unspecified Status: Acute Plan: Patient with decreasing platelet count -Etiology unknown -No signs of acute bruising/bleeding on limited skin exam due to body habitus -Continue to monitor -If <50 or signs of bleeding, possible transfusion (9) Poor nutrition Code(s): E63.9 - Nutritional deficiency, unspecified Status: Acute Plan: -Patient with poor nutritional status during hospitalization -Severe concern of poor wound healing secondary to poor nutritional status -Health Professional consulted for calorie count and nutritional guidance, which has been limited due to NPO status prior to surgery, however patient continues to have poor intake -Multivitamin IV added with Hermes supplementation BID -Albumin levels continued to be decreased -Patient unable to receive 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 Briefly discussed with surgery about the possibility of a JG tube versus surgical placement of PEG tube, deferred as patient will likely not heal from surgical procedure due to nutritional status -NG tube placed with vital 1.5 tube feeds started per dietary TPN, Clinimix E 08/05 @ 65 mls/hr with 20% lipids 250 mls 2x/week (11/07/17-) -Started on Albumin IV overnight (11/19) (10) Schizophrenia Code(s): F20.9 - Schizophrenia, unspecified Status: Chronic Plan: -Psychiatry consulted upon admission -Patient with increased agitation and disorientation on 11/09/17; during episode patient pulled PICC line and attempted to pull out rectal/Hopper; patient required 1 mg Haldol for agitation during episode -Psychiatry consulted for further evaluation Medications: -Haldol 1-2 mg IV/IM every 8 hours as needed for aggressive behavior/agitation -Continue Abilify 30 mg for psychosis -Continue buspirone 30 mg, trazodone 100 mg and Cymbalta 60 mg -Started Mirtazapine 15mg QHS to assist with mood as well as appetite stimulant -Hold anticholinergics per Psych (11) Altered mental status Code(s): R41.82 - Altered mental status, unspecified Status: Acute Plan: Patient with altered mental status overnight 11/11/17 with possible aspiration due to new dysphagia. Patient's mental status continues to decline with a GCS score of 10. Likely related to hypoglycemia as patient did not have access and was not able to receive nutrition via PICC line and is n.p.o. for failed swallow study. -CT Head: Interval enlargement of the ventricular system of uncertain etiology. No clear evidence of an obstructing process. Otherwise stable evaluation without evidence of acute infarct, hemorrhage, mass, or edema. -MRI wo contrast: Negative for acute process -Speech therapy consulted Neurology consulted, appreciate recommendations -No active neurological issues -Provider Network Analyst consulted, appreciate recommendations -Currently intubated and sedated Medications: -TPN -Haldol 1mg PRN for agitation/hallucinations -Lopressor 5mg IV PRN for HR >120 every 15min (12) Cellulitis of knee, left Code(s): L03.116 - Cellulitis of left lower limb Status: Acute Plan: -ID consulted, recommend Cefepime until 11/08/17 -Orthopedic surgery consulted, no further recommendations at this time Medications: -As above (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 She completed rehabilitation and was discharged home August 23. Patient was on approximately 2 weeks of po Keflex 500 mg. Per Ortho, examination of left knee shows no evidence of infection. (14) Hypertension Code(s): I10 - Essential (primary) hypertension Status: Acute Plan: History of hypertension Hold oral medications below -Continue to monitor -Clonidine PRN for BP > 180/100 (15) Tachycardia Code(s): R00.0 - Tachycardia, unspecified Status: Chronic Plan: -Patient with chronic history of tachycardia -EKG 09/27/17: Sinus tachycardia with rate of [address] or interval changes. (Per medical team read) Medications: -Lopressor 5mg IV PRN for HR >120 if unable to tolerate PO -Continue home diltiazem and carvedilol (16) Nutrition, metabolism, and development symptoms Code(s): R63.8 - Other symptoms and signs concerning food and fluid intake Status: Acute Plan: Fluids: NG tube feeds with Vital 1.5 @ 40 mls/hr goal, plan to wean TPN with SSI as needed Electrolytes: Replete as needed per ICU protocol Nutrition: -Health Professional consulted for nutritional guidance -NG tube placed and tube feeds started with vital 1.5 at 50 mils per hour (goal) -TPN Clinimix E 08/05 @ 65 mls/hr with 20% lipids 250 mls 2x/week (11/07/17- ); plan to wean as tolerated now that NG tube feeds have been initiated -Started on albumin IV PICC line placed in left upper extremity DVT prophylaxis: SCDs,SQ Heparin per take out waiter <Simon Devine - 11/24/17 09:30> - Assessment and Plan 52 y/o female with multi-system organ dysfunction after multiple wound infections, and with severe sepsis and malnutrition. Pt is on maximum ID therapy and conflicting therapies leading to a very poor prognosis. Palliative care is consulted. Discussed with Dr. Mcleod, planning on comfort measures later this afternoon <Simon Devine - 11/24/17 08:55> - Attending Attestation The exam, history, and the medical decision-making described in the above note were completed with the assistance of the resident physician. I reviewed and agree with the findings presented. I attest that I had a [id number] encounter with the patient on the same day, and personally performed and documented my assessment and findings in the medical record. extremely ill pt with overwhelming problems. appreciate help of Provider Network Analyst <Maddy Jackson - 11/26/17 08:54> <Simon Devine J - Last Filed: 11/24/17 09:30> (1) Respiratory failure Qualifiers: Chronicity: acute (3) Open wound of abdominal wall Qualifiers: Encounter type: initial encounter Qualified Code(s): S31.109A - Unspecified open wound of abdominal wall, unspecified quadrant without penetration into peritoneal cavity, initial encounter (4) Aspiration into airway Qualifiers: Encounter type: initial encounter Qualified Code(s): T17.908A - Unspecified foreign body in respiratory tract, part unspecified causing other injury, initial encounter (6) Anemia Qualifiers: Anemia type: unspecified type Qualified Code(s): D64.9 - Anemia, unspecified (11) Altered mental status Qualifiers: Altered mental status type: unspecified Qualified Code(s): R41.82 - Altered mental status, unspecified (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 <Maddy Jackson - Last Filed: 11/26/17 08:54> (1) Respiratory failure Qualifiers: Chronicity: acute (3) Open wound of abdominal wall Qualifiers: Encounter type: initial encounter Qualified Code(s): S31.109A - Unspecified open wound of abdominal wall, unspecified quadrant without penetration into peritoneal cavity, initial encounter (4) Aspiration into airway Qualifiers: Encounter type: initial encounter Qualified Code(s): T17.908A - Unspecified foreign body in respiratory tract, part unspecified causing other injury, initial encounter (6) Anemia Qualifiers: Anemia type: unspecified type Qualified Code(s): D64.9 - Anemia, unspecified (11) Altered mental status Qualifiers: Altered mental status type: unspecified Qualified Code(s): R41.82 - Altered mental status, unspecified (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 <RadhaSimon richardson - Last Filed: 11/24/17 09:30> (1) Respiratory failure Qualifiers: Chronicity: acute (3) Open wound of abdominal wall Qualifiers: Encounter type: initial encounter Qualified Code(s): S31.109A - Unspecified open wound of abdominal wall, unspecified quadrant without penetration into peritoneal cavity, initial encounter (4) Aspiration into airway Qualifiers: Encounter type: initial encounter Qualified Code(s): T17.908A - Unspecified foreign body in respiratory tract, part unspecified causing other injury, initial encounter (6) Anemia Qualifiers: Anemia type: unspecified type Qualified Code(s): D64.9 - Anemia, unspecified (11) Altered mental status Qualifiers: Altered mental status type: unspecified Qualified Code(s): R41.82 - Altered mental status, unspecified (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 <Maddy Jackson - Last Filed: 11/26/17 08:54> (1) Respiratory failure Qualifiers: Chronicity: acute (3) Open wound of abdominal wall Qualifiers: Encounter type: initial encounter Qualified Code(s): S31.109A - Unspecified open wound of abdominal wall, unspecified quadrant without penetration into peritoneal cavity, initial encounter (4) Aspiration into airway Qualifiers: Encounter type: initial encounter Qualified Code(s): T17.908A - Unspecified foreign body in respiratory tract, part unspecified causing other injury, initial encounter (6) Anemia Qualifiers: Anemia type: unspecified type Qualified Code(s): D64.9 - Anemia, unspecified (11) Altered mental status Qualifiers: Altered mental status type: unspecified Qualified Code(s): R41.82 - Altered mental status, unspecified (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
[2017-11-24] MEDS: Chlorhexidine 0.12% Oral Kit 15 ML UDC OROPHARYNG SCH ×2 (09:13→23:21)
[2017-11-24] MEDS: Hypromellose 0.3% Opth Gel 10 GM Bottle EACH EYE SCH ×2 (09:13→23:22)
[2017-11-24] MEDS: Heparin Central Flush 100 UNIT/ML 5 ML Vial IV.FLUSH SCH ×2 (09:14)
[2017-11-24] MEDS ORDERED: Morphine Inj 4 MG/ML Vial IV.PUSH ONE (11:14)
[2017-11-24] MEDS ORDERED: Glycopyrrolate 0.2 MG/ML Vial IV.PUSH ONE (11:14)
[2017-11-24] MEDS ORDERED: HYDROmorphone PF Inj 2 MG/ML Vial IV.PUSH ONE (11:14)
--- NOTE | 2017-11-24 15:40 | P.PNCC ---
Subjective Subjective Remarks/Hospital Course: This is a 52-year-old female with a very complex medical history who was admitted back in September 2017 for postoperative wound infection from her total knee arthroplasty. Her course has been complicated by multiple necrotizing soft tissue infections. She additionally has failure to thrive and severe acute protein calorie malnutrition for which she has been on total parenteral nutrition. She intermittently becomes agitated and pulls out her IV access. Today she was on the floor when she became worsening the febrile and altered. She pulled out her own PICC line overnight, and nursing staff was unable to reobtain IV access. Because she was off TPN she became quite hypoglycemic which was refractory to non-intravenous methods of glucose administration. Urgently a new PICC line was placed by interventional radiology and she was given IV dextrose. When her glucose improved, her mental status improved as well. She is transferred to the ICU for management of worsening recurrent sepsis, worsening wound infection, and hypoglycemia. When I evaluated the patient, she was more awake, nonfocal, moving all extremities. She endorses fatigue, but denies other symptoms. She specifically denies chest pain, shortness of breath, fever, chills, nausea, vomiting, abdominal pain. She does endorse diarrhea and has a rectal tube in place. She has a recent history of active C. difficile infection. Remainder of the review systems is negative unless otherwise stated. 11/12: Lying in bed no acute distress intermittently confused but follows commands, pleasant. WBC count stable at 11.7. On TPN hypoglycemia has resolved. Discussed with Dr. Schneider 11/13: Intubated and placed on mechanical ventilation yesterday evening for desaturation and lack of airway protection. Creatinine has increased to 1.5 potassium is 2.8 getting replaced. On light sedation patient does follow commands. Antibiotics have been broadened to Zyvox meropenem and Levaquin and micafungin. Continue p.o. vancomycin for C Diff 11/14: Patient intubated sedated with propofol. Wakes up follows some commands but did not tolerate CPAP due to tachypnea. WBC count worsening currently 15.1. Also worsening creatinine 1.8. Some evidence of worsening wound infection in the lower abdomen pelvic region. Lower abdominal and left thigh incisions with increasing drainage 11/15: Remains intubated, sedated, becoming more septic and hypothermic. WBC count is 15.7 creatinine is 1.9 meets criteria for severe C. difficile colitis. Infectious disease following, currently on p.o. vancomycin for C. difficile ID is adding Dificid to the regimen. If not clinically improving need CT of the abdomen pelvis. Worsening sepsis most likely from worsening C. difficile than wound infection 11/16: Continued persistent hypotension. Discussed with Surgical Service. Acts like continued septic course. No other major changes. Will require transfusion soon. Subjective 11/17: Low-grade temperatures overnight. Tube feeds currently at goal of 50 cc an hour with vital 1.5. Positive BM. Hemoglobin currently 8.4. 11/18: no real improvements or changes. still failing vent weaning. 11/19: Hypothermic, requiring warming blanket. Continued vent dependent respiratory failure. Continued metabolic derangements requiring fluid resuscitation. 11/20: Patient continues to have several liters of insensible losses per day via wound drainage and diarrhea. I started her on scheduled albumin overnight with no improvement in metabolic acidosis or base deficit. She continued to be hypothermic overnight. 11/21: Continued metabolic acidosis/ base deficitemia. Hg 6.5 this morning with no obvious source of bleeding. Family meeting today at 1 PM to discuss the patient's current status, prognosis, and to discuss goals of care. 11/22: Family meeting held yesterday, please see Event Note. No decisions thus far regarding code status. I explained to the family that there are no additional medical or surgical options available to offer that the patient has not already received. She continues to be tachycardic, hypothermic, and acidotic ; there has been no improvement over the past several days. She requires around the clock albumin and constant rewarming via Jatin Hugger in order to maintain normothermia. 11/23: Patient noted to become profoundly bradycardic (HR in 20s) while turning for nursing care overnight. Continues to require Jatin Hugger for hypothermia. 11/24: Patient's changed code status to DNR yesterday afternoon. Planned transition to comfort care today. Objective Vital Signs / I&O: Vital Signs 11/23/17 16:00 11/23/17 17:06 11/23/17 18:00 Temperature 98.8 F Pulse Rate 120 H 121 H Respiratory Rate 16 16 Blood Pressure 141/65 H Pulse Oximetry 100 100 11/23/17 19:00 11/23/17 19:30 11/23/17 19:58 Temperature 98.8 F 98.8 F Pulse Rate 123 H 120 H Respiratory Rate 16 16 18 Blood Pressure 164/77 H 165/77 H Pulse Oximetry 100 100 100 11/23/17 20:00 11/23/17 20:23 11/23/17 20:30 Temperature 99.0 F 99.0 F 99.0 F Pulse Rate 119 H 120 H 121 H Respiratory Rate 16 16 16 Blood Pressure 153/72 H 155/72 H 155/71 H Pulse Oximetry 100 100 100 11/23/17 21:00 11/23/17 21:30 11/23/17 22:00 Temperature 98.8 F 98.8 F 98.4 F Pulse Rate 122 H 122 H 123 H Respiratory Rate 16 17 17 Blood Pressure 154/73 H 164/76 H 153/72 H Pulse Oximetry 100 100 100 11/23/17 22:30 11/23/17 23:00 11/23/17 23:30 Temperature 98.1 F 97.9 F 97.7 F Pulse Rate 118 H 114 H 112 H Respiratory Rate 16 16 18 Blood Pressure 158/74 H 151/72 H 170/79 H Pulse Oximetry 100 100 100 11/24/17 00:00 11/24/17 00:30 11/24/17 01:00 Temperature 97.3 F L 97.2 F L 96.8 F L Pulse Rate 117 H 111 H 108 H Respiratory Rate 16 16 16 Blood Pressure 160/75 H 171/81 H 163/79 H Pulse Oximetry 100 100 100 11/24/17 01:30 11/24/17 02:00 11/24/17 02:30 Temperature 96.6 F L 96.4 F L 96.3 F L Pulse Rate 107 H 103 H 98 H Respiratory Rate 16 16 16 Blood Pressure 163/77 H 167/80 H 175/80 H Pulse Oximetry 100 100 100 11/24/17 03:00 11/24/17 03:30 11/24/17 04:00 Temperature 96.1 F L 95.9 F L 95.7 F L Pulse Rate 97 H 95 H 93 H Respiratory Rate 16 16 16 Blood Pressure 180/81 H 174/79 H 171/79 H Pulse Oximetry 100 100 100 11/24/17 04:30 11/24/17 05:00 11/24/17 05:11 Temperature 95.5 F L 95.4 F L Pulse Rate 92 H 91 H Respiratory Rate 16 16 16 Blood Pressure 169/78 H 174/79 H Pulse Oximetry 100 100 100 11/24/17 05:30 11/24/17 06:00 11/24/17 06:30 Temperature 95.2 F L 94.6 F L 94.3 F L Pulse Rate 95 H 92 H 90 Respiratory Rate 22 16 16 Blood Pressure 162/77 H 162/75 H 169/76 H Pulse Oximetry 100 100 100 11/24/17 07:00 11/24/17 07:30 11/24/17 08:00 Temperature 94.1 F L 93.9 F L 93.7 F L Pulse Rate 86 88 84 Respiratory Rate 16 16 16 Blood Pressure 174/79 H 178/80 H 177/81 H Pulse Oximetry 100 100 100 11/24/17 08:01 11/24/17 08:30 11/24/17 08:48 Temperature 93.7 F L 93.6 F L Pulse Rate 86 87 Respiratory Rate 16 16 16 Blood Pressure 177/81 H 174/81 H Pulse Oximetry 100 100 100 11/24/17 09:00 11/24/17 09:30 11/24/17 10:00 Temperature 93.6 F L 93.2 F L 93.0 F L Pulse Rate 85 91 H 87 Respiratory Rate 16 16 16 Blood Pressure 168/74 H 170/78 H 171/80 H Pulse Oximetry 100 100 100 11/24/17 10:31 11/24/17 11:00 11/24/17 11:31 Temperature 92.8 F L 92.7 F L 92.5 F L Pulse Rate 94 H 84 82 Respiratory Rate 16 16 16 Blood Pressure 169/83 H 171/77 H 158/73 H Pulse Oximetry 100 100 100 11/24/17 12:00 11/24/17 12:08 11/24/17 14:00 Temperature 92.3 F L Pulse Rate 83 80 Respiratory Rate 16 16 Blood Pressure 153/74 H Pulse Oximetry 100 100 Intake & Output 11/23/17 11/24/17 11/24/17 18:59 06:59 18:59 Intake Total 1386 / 1386 2308 / 2308 360 / 360 Output Total 2400 / 2400 2300 / 2300 Balance -1014 / -1014 8 / 8 360 / 360 Weight 119.1 kg Intake: IV 470 / 470 1800 / 1800 360 / 360 Diprivan 1000 mg/100 ml Inj 1, 120 / 120 300 / 300 110 / 110 000 mg In 100 ml @ 5 MCG/KG/MIN 3.261 mls/hr IV.CONT TITRATE PRN Rx#:[id number] Flexbumin 25% Inj 100 ML @ 60 100 / 100 100 / 100 mls/hr IV.SIG Q8H [facility] Rx#: [id number] Zyvox 600 mg Premix 300 ML @ 600 / 600 300 mls/hr IV.SIG Q12H [facility] Rx#: [id number] Merrem Inj 1,000 MG In NS Inj 200 / 200 100 ML @ 200 mls/hr IV.SIG Q12H [facility] Rx#:[id number] Mycamine Inj 100 MG In NS Inj 100 / 100 100 ML @ 100 mls/hr IV.SIG Q24H [facility] Rx#:[id number] fentaNYL 10 mcg/mL Premix Drip 250 / 250 500 / 500 250 / 250 2,500 mcg In 250 ml @ 50 MCG/HR 5 mls/hr IV.SIG TITRATE PRN Rx #:[id number] Oral 0 / 0 0 / 0 Tube Feeding 796 / 796 508 / 508 Water Bolus Amount 120 / 120 Output: Urine 1600 / 1600 Stool 800 / 800 400 / 400 Urine Amount (Catheter) 1900 / 1900 Indwelling Urethral Catheter 0 / 1900 Other: Date of Last Bowel Movement 11/23/17 11/24/17 11/24/17 Result Diagrams: 11/23/17 04:00 11/23/17 04:00 Objective Remarks: GENERAL: Intubated and sedated HEENT: NCAT NECK: ETT and NGT present CHEST: Mechanical breath sounds bilaterally, faint expiratory wheeze on left CARDIOVASCULAR: Tachy to 110s, regular ABDOMEN: Morbidly obese, soft, non-tender in all quadrants. Extensive wounds remain unchanged MUSCULOSKELETAL: Pitting anasarca to all extremities NEUROLOGICAL: GCS 7T ([id number]) on sedation, RASS -2, appears comfortable Assessment and Plan - Assessment and Plan Plan: Assessment: 52-year-old female with an extensive recent medical history including multiple wound infections and severe acute protein calorie malnutrition who presents with recurrent severe sepsis and wound infection. Patient's code status changed to DNR by her today (see below). Active problems: Severe Sepsis Acute hypoxemic respiratory failure Metabolic encephalopathy Severe C diff colitis Deep tissue wound infection lower abdomen and perineum Severe hypoglycemia-resolved Persistent hypothermia Elevated BMI Leukocytosis Normocytic anemia Thrombocytopenia Depressive disorder NOS Hyperlipidemia Acute kidney injury Severe protein calorie malnutrition Multi-system organ dysfunction syndrome (MODS) Plan: Patient's family is currently at her bedside spending time with her. They will let us know when they are ready to proceed with transitioning to comfort-based measures (premedications ordered for 30 mins prior to compassionate extubation) . Level 2
[2017-11-24] MEDS: Mirtazapine 15 MG Tablet PO SCH (23:22)
[2017-11-24] MEDS: traZODone 100 MG Tablet PO SCH (23:22)
[2017-11-25] MEDS: Heparin - SQ 10,000 UNITS/ML Vial SQ SCH ×2 (00:19→06:55)
[2017-11-25] MEDS: Oral Hygiene Kit OROPHARYNG SCH ×2 (00:22→06:55)
[2017-11-25] MEDS: Insulin NovoLOG Aspart Correctional Sugar Inj SQ SCH ×2 (00:59→06:56)
[2017-11-25] MEDS: Propofol 1000 mg/100 ml Inj 1,000 MG/100 ML BOTTLE IV.CONT PRN ×2 (02:59→06:58)
[2017-11-25] MEDS: Chlorhexidine 0.12% Oral Kit 15 ML UDC OROPHARYNG SCH (07:51)
[2017-11-25] MEDS: fentaNYL 10 mcg/mL Premix Drip 2,500 MCG/250 ML BAG IV.SIG PRN ×2 (08:38→17:14)
[2017-11-25] MEDS: Duloxetine 60 MG DR Capsule PO SCH (08:39)
[2017-11-25] MEDS: Folic Acid 1 MG Tablet PO SCH (08:39)
[2017-11-25] MEDS: Pantoprazole Inj 40 MG Vial IV.PUSH SCH (08:40)
[2017-11-25] MEDS: Hypromellose 0.3% Opth Gel 10 GM Bottle EACH EYE SCH (08:41)
[2017-11-25] MEDS: Lactobacillus Acidophilus/L. Spores Tablet PO SCH (08:41)
[2017-11-25] MEDS: Heparin Central Flush 100 UNIT/ML 5 ML Vial IV.FLUSH SCH ×2 (08:41)
--- NOTE | 2017-11-25 09:48 | P.PNFP ---
Subjective Interval history: Pt seen and examined this morning. Remains intubated and sedated. Family was at bedside yesterday and planning on comfort measures, however no decision was made yet. Attempts to reach again have been unsuccessful. Will try again today. <Simon Devine - 11/25/17 09:48> Results - Labs Result diagrams: 11/23/17 04:00 11/23/17 04:00 <Maddy Jackson - 11/26/17 08:59> Physical Exam Vital signs: Vital Signs 11/25/17 09:00 11/25/17 10:00 11/25/17 12:00 Temperature 98.8 F Pulse Rate 136 H 144 H 156 H Respiratory Rate 16 16 Blood Pressure 154/76 H Pulse Oximetry 100 11/25/17 12:25 11/25/17 14:00 11/25/17 16:00 Temperature Pulse Rate 166 H 163 H Respiratory Rate 16 16 Blood Pressure Pulse Oximetry 11/25/17 18:00 11/25/17 20:00 11/25/17 21:58 Temperature Pulse Rate 160 H 162 H Respiratory Rate 20 20 Blood Pressure Pulse Oximetry 11/25/17 22:00 Temperature Pulse Rate 150 H Respiratory Rate Blood Pressure Pulse Oximetry Intake & Output 11/25/17 11/26/17 11/26/17 18:59 06:59 18:59 Intake Total 600 / 600 Balance 600 / 600 Intake: IV 600 / 600 Diprivan 1000 mg/100 ml Inj 1, 100 / 100 000 mg In 100 ml @ 5 MCG/KG/MIN 3.261 mls/hr IV.CONT TITRATE PRN Rx#:[id number] fentaNYL 10 mcg/mL Premix Drip 500 / 500 2,500 mcg In 250 ml @ 50 MCG/HR 5 mls/hr IV.SIG TITRATE PRN Rx #:[id number] Other: Date of Last Bowel Movement 11/25/17 11/25/17 <Maddy Jackson - 11/26/17 08:59> Vital Signs 11/24/17 10:00 11/24/17 10:31 11/24/17 11:00 Temperature 93.0 F L 92.8 F L 92.7 F L Pulse Rate 87 94 H 84 Respiratory Rate 16 16 16 Blood Pressure 171/80 H 169/83 H 171/77 H Pulse Oximetry 100 100 100 11/24/17 11:31 11/24/17 12:00 11/24/17 12:08 Temperature 92.5 F L 92.3 F L Pulse Rate 82 83 Respiratory Rate 16 16 16 Blood Pressure 158/73 H 153/74 H Pulse Oximetry 100 100 100 11/24/17 12:30 11/24/17 13:00 11/24/17 13:31 Temperature 92.1 F L 92.1 F L 91.9 F L Pulse Rate 81 87 81 Respiratory Rate 16 16 16 Blood Pressure 156/75 H 173/84 H 155/73 H Pulse Oximetry 100 100 100 11/24/17 14:00 11/24/17 14:30 11/24/17 15:00 Temperature 91.8 F L 91.8 F L 91.6 F L Pulse Rate 80 80 83 Respiratory Rate 16 16 16 Blood Pressure 156/78 H 159/78 H 161/79 H Pulse Oximetry 100 100 100 11/24/17 15:30 11/24/17 16:00 11/24/17 18:00 Temperature 91.6 F L 91.6 F L Pulse Rate 80 78 82 Respiratory Rate 16 16 Blood Pressure 168/81 H 156/75 H Pulse Oximetry 100 100 11/24/17 20:00 11/24/17 21:00 11/24/17 21:30 Temperature 91.2 F L 91.0 F L 91.0 F L Pulse Rate 83 83 82 Respiratory Rate 16 16 16 Blood Pressure 155/76 H 147/77 H 135/70 Pulse Oximetry 100 100 100 11/24/17 22:00 11/24/17 22:30 11/24/17 23:00 Temperature 90.9 F L 90.9 F L 90.7 F L Pulse Rate 83 83 82 Respiratory Rate 16 16 16 Blood Pressure 148/79 H 139/71 153/80 H Pulse Oximetry 100 100 100 11/24/17 23:30 11/25/17 00:00 11/25/17 00:25 Temperature 90.7 F L 90.7 F L Pulse Rate 82 79 Respiratory Rate 16 16 16 Blood Pressure 143/71 H 152/82 H Pulse Oximetry 100 100 100 11/25/17 00:28 11/25/17 00:30 11/25/17 01:00 Temperature 90.7 F L 90.9 F L Pulse Rate 84 88 Respiratory Rate 16 16 16 Blood Pressure 149/78 H 153/78 H Pulse Oximetry 100 100 100 11/25/17 01:31 11/25/17 02:00 11/25/17 02:30 Temperature 91.4 F L 91.9 F L 92.5 F L Pulse Rate 89 93 H 95 H Respiratory Rate 16 16 16 Blood Pressure 122/64 114/64 118/64 Pulse Oximetry 100 100 100 11/25/17 03:00 11/25/17 03:30 11/25/17 04:00 Temperature 92.8 F L 93.4 F L 93.9 F L Pulse Rate 98 H 99 H 102 H Respiratory Rate 16 16 16 Blood Pressure 110/59 L 111/61 113/64 Pulse Oximetry 100 100 100 11/25/17 04:30 11/25/17 04:32 11/25/17 05:00 Temperature 94.5 F L 95.0 F L Pulse Rate 104 H 106 H Respiratory Rate 16 16 16 Blood Pressure 112/59 L 114/62 Pulse Oximetry 100 100 100 11/25/17 05:30 11/25/17 06:00 11/25/17 06:30 Temperature 95.5 F L 96.1 F L 96.4 F L Pulse Rate 109 H 113 H 118 H Respiratory Rate 16 16 16 Blood Pressure 137/65 145/70 H 147/75 H Pulse Oximetry 100 100 100 11/25/17 07:00 11/25/17 07:30 11/25/17 07:33 Temperature 96.8 F L 97.3 F L Pulse Rate 122 H 127 H Respiratory Rate 16 16 16 Blood Pressure 150/73 H 147/77 H Pulse Oximetry 100 100 100 11/25/17 08:00 11/25/17 08:30 11/25/17 09:00 Temperature 97.7 F 98.2 F 98.8 F Pulse Rate 130 H 134 H 136 H Respiratory Rate 16 16 16 Blood Pressure 143/79 H 157/72 H 154/76 H Pulse Oximetry 100 100 100 Intake & Output 11/24/17 11/25/17 11/25/17 18:59 06:59 18:59 Intake Total 608 / 608 1450 / 1450 250 / 250 Output Total 1250 / 1250 1999 Balance -642 / -642 -550 / -550 250 / 250 Weight 119.1 kg Intake: IV 460 / 460 1450 / 1450 250 / 250 Diprivan 1000 mg/100 ml Inj 1, 210 / 210 300 / 300 000 mg In 100 ml @ 5 MCG/KG/MIN 3.261 mls/hr IV.CONT TITRATE PRN Rx#:[id number] Zyvox 600 mg Premix 300 ML @ 600 / 600 300 mls/hr IV.SIG Q12H [place] Rx#: [id number] Merrem Inj 1,000 MG In NS Inj 200 / 200 100 ML @ 200 mls/hr IV.SIG Q12H [place] Rx#:[id number] Mycamine Inj 100 MG In NS Inj 100 / 100 100 ML @ 100 mls/hr IV.SIG Q24H [place] Rx#:[id number] fentaNYL 10 mcg/mL Premix Drip 250 / 250 250 / 250 250 / 250 2,500 mcg In 250 ml @ 50 MCG/HR 5 mls/hr IV.SIG TITRATE PRN Rx #:[id number] Tube Feeding 148 / 148 Output: Stool 200 / 200 1000 / 1000 Urine Amount (Catheter) 1050 / 1050 1000 / 1000 Indwelling Urethral Catheter 1050 / 1050 1000 / 1000 Other: Date of Last Bowel Movement 11/24/17 11/25/17 11/25/17 <Simon Devine 11/25/17 09:48> - Urinary Catheter Management Female External Cath placed during this visit: no <Maddy Jackson - 11/26/17 08:59> no <Simon Devine 11/25/17 09:48> Indwelling Urethral Catheter Cath placed during this visit: no <Maddy Jackson - 11/26/17 08:59> yes, but has since been removed by the nurse <Simon Devine 11/25/17 09:48> Reason for continuing: Hourly intake/output <Simon Devine 11/25/17 09:48 > Insertion date: 09/27/17 <Simon Devine 11/25/17 09:48> Insertion time: 08:20 <Simon Devine 11/25/17 09:48> Removal date: 10/05/17 <Simon Devine 11/25/17 09:48> Removal time: 17:30 <RadhadebraSimon Rasheed - 11/25/17 09:48> Assessment and Plan - Assessment (1) Respiratory failure Code(s): J96.90 - Respiratory failure, unspecified, unspecified whether with hypoxia or hypercapnia Status: Acute (2) Sepsis Code(s): A41.9 - Sepsis, unspecified organism Status: Acute (3) Open wound of abdominal wall Code(s): S31.109A - Unspecified open wound of abdominal wall, unspecified quadrant without penetration into peritoneal cavity, initial encounter Status : Acute (4) Aspiration into airway Code(s): T17.908A - Unspecified foreign body in respiratory tract, part unspecified causing other injury, initial encounter Status: Acute (5) C. difficile diarrhea Code(s): A04.72 - Enterocolitis due to Clostridium difficile, not specified as recurrent Status: Acute (6) Anemia Code(s): D64.9 - Anemia, unspecified Status: Resolved (7) Creatinine elevation Code(s): R79.89 - Other specified abnormal findings of blood chemistry Status : Acute (8) Thrombocytopenia Code(s): D69.6 - Thrombocytopenia, unspecified Status: Acute (9) Poor nutrition Code(s): E63.9 - Nutritional deficiency, unspecified Status: Acute (10) Schizophrenia Code(s): F20.9 - Schizophrenia, unspecified Status: Chronic (11) Altered mental status Code(s): R41.82 - Altered mental status, unspecified Status: Acute (12) Cellulitis of knee, left Code(s): L03.116 - Cellulitis of left lower limb Status: Acute (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 - Infection and inflammatory reaction due to unspecified internal joint prosthesis, initial encounter Status: Suspected (14) Hypertension Code(s): I10 - Essential (primary) hypertension Status: Acute (15) Tachycardia Code(s): R00.0 - Tachycardia, unspecified Status: Chronic (16) Nutrition, metabolism, and development symptoms Code(s): R63.8 - Other symptoms and signs concerning food and fluid intake Status: Acute <Maddy Jackson - 11/26/17 08:59> (1) Respiratory failure Code(s): J96.90 - Respiratory failure, unspecified, unspecified whether with hypoxia or hypercapnia Status: Acute Plan: Patient with possible aspiration episode on 11/12/17 with subsequent acute respiratory failure requiring intubation ABG 11/12/17:7.3/33//16 CXR 11/15/17: Mild bibasilar consolidation, improved on the right and slightly worse on the left. CXR continues to show stable disease, no change -Patient intubated and sedated -Continues to fail weaning trials -Residential Housekeeper consulted -Palliative care consulted (2) Sepsis Code(s): A41.9 - Sepsis, unspecified organism Status: Acute Plan: Patient meeting sepsis criteria with core body temperature of high/low temp, leukocytosis, and tachycardia. Suspected site of infection as her extensive abdominal wounds w/ C diff as well -Please see plan as below (3) Open wound of abdominal wall Code(s): S31.109A - Unspecified open wound of abdominal wall, unspecified quadrant without penetration into peritoneal cavity, initial encounter Status : Acute Plan: Large abdominal and pelvic wounds that appear not to be healing likely secondary to poor nutritional status -Wound Culture 09/27/17: Pseudomonas and Group B Step -Blood Cultures 10/24/17: Negative -Tissue Cultures 10/09/17: Negative -Abdominal wound culture 11/01/17: Group D Enterococcus, sensitive to Daptomycin ; Fungal species -Blood Culture 11/07/17 per TPN protocol: Negative to date -Blood Culture 11/12/17: NTD -PICC Line/Blood Cultures 11/15/17: no growth to date -Infectious disease consulted -General surgery consulted -Surgical debridement 10/09, wound VAC applied. -VAC changed 10/12 removed 10/15. -Debridement, irrigation, with suturing performed on 10/16. -I&D of abdomen and bilateral thighs, placement of Amniox with wound closure on 11/01/17 -Dressing changes per general surgery Medications: -Meropenem (11/13/17- ) -Micafungin (11/13/17- ) -Linezolid (11/13/17- ) -Dificid (11/15/17 - ) -PO Vanc (10/23/17 - ) Levaquin (11/10/17-11/15/17) -Daptomycin IV for suspected VRE per ID (11/03/17-11/13/17) -Cefepime IV (09/29/17-11/08/17) discontinued due to thrombocytopenia and elevated creatinine -Flagyl (11/10/17-11/13/17) -Diflucan 500mg daily (11/12/17) -Fentanyl added to assist with pain control (4) Aspiration into airway Code(s): T17.908A - Unspecified foreign body in respiratory tract, part unspecified causing other injury, initial encounter Status: Acute Plan: Patient with possible aspiration episode overnight 11/09/17 with another episode on 11/12/17. Patient now with respiratory failure as above Chest x-ray 11/09/12: Interval development of left lower lobe consolidation CXR 11/10/17: Left upper extremity PICC distal tip at the junction of the SVC and brachiocephalic vein. Bibasilar airspace opacity could represent atelectasis versus consolidation. CXR 11/12/17: Interim intubation. Endotracheal tip at the shaka. Small effusion and mild consolidation developing at the right base. Sputum cultures: Gram stain with rare gram positive cocci in pairs, many WBC, mucus; Culture with light growth of normal respiratory lisa at 24 hours. CXR 11/15/17: Mild bibasilar consolidation, improved on the right and slightly worse on the left. CXR 11/19/17: no significant change -Continues to show stable disease -Speech therapy consulted for swallow evaluation once extubated -ID consulted Medications: -Meropenem (11/13/17- ) -Micafungin (11/13/17- ) -Linezolid (11/13/17- ) Levaquin (11/10/17-11/15/17) -Flagyl (11/10/17-11/13/17) (5) C. difficile diarrhea Code(s): A04.72 - Enterocolitis due to Clostridium difficile, not specified as recurrent Status: Acute Plan: C diff cultures positive 10/19/17 Patient meeting criteria for severe C. difficile infection -Vancomycin PO 125 4 times daily (10/23/17- ) -Difficid 200mg BID (11/15/17- ) -Continue with probiotics. -Rectal tube in place (6) Anemia Code(s): D64.9 - Anemia, unspecified Status: Resolved Plan: Patient found to have asymptomatic anemia H/H of 10/05.3 with MCV of 82 on Continues to have anemia/thrombocytopenia 11/21 - given 2 units pRBC with appropriate response -Rectal tube and Hopper catheter without any signs of acute bleeding -Dressings without obvious signs of bleeding -13 units total thus far during admission (11/21/17 most recent) -Consider transfusion if requiring more volume -Continue to monitor (7) Creatinine elevation Code(s): R79.89 - Other specified abnormal findings of blood chemistry Status : Acute Plan: Patient with acute creatinine elevation with starting TPN. -Unknown etiology at this time -Patient with decreasing urinary output -Electrolytes WNL -Stable Cr at this time, although remains elevated -Continue to monitor creatinine, I/Os (8) Thrombocytopenia Code(s): D69.6 - Thrombocytopenia, unspecified Status: Acute Plan: Patient with decreasing platelet count -Etiology unknown -No signs of acute bruising/bleeding on limited skin exam due to body habitus -Continue to monitor -If <50 or signs of bleeding, possible transfusion (9) Poor nutrition Code(s): E63.9 - Nutritional deficiency, unspecified Status: Acute Plan: -Patient with poor nutritional status during hospitalization -Severe concern of poor wound healing secondary to poor nutritional status -Records Technician consulted for calorie count and nutritional guidance, which has been limited due to NPO status prior to surgery, however patient continues to have poor intake -Multivitamin IV added with Hermes supplementation BID -Albumin levels continued to be decreased -Patient unable to receive 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 Briefly discussed with surgery about the possibility of a JG tube versus surgical placement of PEG tube, deferred as patient will likely not heal from surgical procedure due to nutritional status -NG tube placed with vital 1.5 tube feeds started per dietary TPN, Clinimix E 08/05 @ 65 mls/hr with 20% lipids 250 mls 2x/week (11/07/17-) -Started on Albumin IV overnight (11/19) (10) Schizophrenia Code(s): F20.9 - Schizophrenia, unspecified Status: Chronic Plan: -Psychiatry consulted upon admission -Patient with increased agitation and disorientation on 11/09/17; during episode patient pulled PICC line and attempted to pull out rectal/Hopper; patient required 1 mg Haldol for agitation during episode -Psychiatry consulted for further evaluation Medications: -Haldol 1-2 mg IV/IM every 8 hours as needed for aggressive behavior/agitation -Continue Abilify 30 mg for psychosis -Continue buspirone 30 mg, trazodone 100 mg and Cymbalta 60 mg -Started Mirtazapine 15mg QHS to assist with mood as well as appetite stimulant -Hold anticholinergics per Psych (11) Altered mental status Code(s): R41.82 - Altered mental status, unspecified Status: Acute Plan: Patient with altered mental status overnight 11/11/17 with possible aspiration due to new dysphagia. Patient's mental status continues to decline with a GCS score of 10. Likely related to hypoglycemia as patient did not have access and was not able to receive nutrition via PICC line and is n.p.o. for failed swallow study. -CT Head: Interval enlargement of the ventricular system of uncertain etiology. No clear evidence of an obstructing process. Otherwise stable evaluation without evidence of acute infarct, hemorrhage, mass, or edema. 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 She completed rehabilitation and was discharged home August 23. Patient was on approximately 2 weeks of po Keflex 500 mg. Per Ortho, examination of left knee shows no evidence of infection. (14) Hypertension Code(s): I10 - Essential (primary) hypertension Status: Acute Plan: History of hypertension Hold oral medications below -Continue to monitor -Clonidine PRN for BP > 180/100 (15) Tachycardia Code(s): R00.0 - Tachycardia, unspecified Status: Chronic Plan: -Patient with chronic history of tachycardia -EKG 09/27/17: Sinus tachycardia with rate of [address] or interval changes. (Per medical team read) Medications: -Lopressor 5mg IV PRN for HR >120 if unable to tolerate PO -Continue home diltiazem and carvedilol (16) Nutrition, metabolism, and development symptoms Code(s): R63.8 - Other symptoms and signs concerning food and fluid intake Status: Acute Plan: Fluids: NG tube feeds with Vital 1.5 @ 40 mls/hr goal, plan to wean TPN with SSI as needed Electrolytes: Replete as needed per ICU protocol Nutrition: -Records Technician consulted for nutritional guidance -NG tube placed and tube feeds started with vital 1.5 at 50 mils per hour (goal) -TPN Clinimix E 20 @ 65 mls/hr with 20% lipids 250 mls 2x/week (11/07/17- ); plan to wean as tolerated now that NG tube feeds have been initiated -Started on albumin IV PICC line placed in left upper extremity DVT prophylaxis: SCDs,SQ Heparin per basket weaver <Simon Devine - 11/25/17 09:47> - Assessment and Plan 52 y/o female with multi-system organ dysfunction after multiple wound infections, and with severe sepsis and malnutrition. Pt is on maximum ID therapy and conflicting therapies leading to a very poor prognosis. Palliative care is consulted. Discussed with Dr. Mcleod; possible transfer to comfort care measures later today. <Simon Devine - 11/25/17 09:48> - Attending Attestation The exam, history, and the medical decision-making described in the above note were completed with the assistance of the resident physician. I reviewed and agree with the findings presented. I attest that I had a [id number] encounter with the patient on the same day, and personally performed and documented my assessment and findings in the medical record. spoke to her on speaker phone with her sister, her nurse and I listening. Her clearly stated he wanted her withdrawn from care but did not want to be present <Maddy Jackson - 11/26/17 08:59> <Simon Devine - Last Filed: 11/25/17 09:47> (1) Respiratory failure Qualifiers: Chronicity: acute (3) Open wound of abdominal wall Qualifiers: Encounter type: initial encounter Qualified Code(s): S31.109A - Unspecified open wound of abdominal wall, unspecified quadrant without penetration into peritoneal cavity, initial encounter (4) Aspiration into airway Qualifiers: Encounter type: initial encounter Qualified Code(s): T17.908A - Unspecified foreign body in respiratory tract, part unspecified causing other injury, initial encounter (6) Anemia Qualifiers: Anemia type: unspecified type Qualified Code(s): D64.9 - Anemia, unspecified (11) Altered mental status Qualifiers: Altered mental status type: unspecified Qualified Code(s): R41.82 - Altered mental status, unspecified (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 <Maddy Jackson - Last Filed: 11/26/17 08:59> (1) Respiratory failure Qualifiers: Chronicity: acute (3) Open wound of abdominal wall Qualifiers: Encounter type: initial encounter Qualified Code(s): S31.109A - Unspecified open wound of abdominal wall, unspecified quadrant without penetration into peritoneal cavity, initial encounter (4) Aspiration into airway Qualifiers: Encounter type: initial encounter Qualified Code(s): T17.908A - Unspecified foreign body in respiratory tract, part unspecified causing other injury, initial encounter (6) Anemia Qualifiers: Anemia type: unspecified type Qualified Code(s): D64.9 - Anemia, unspecified (11) Altered mental status Qualifiers: Altered mental status type: unspecified Qualified Code(s): R41.82 - Altered mental status, unspecified (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 <Simon Devine - Last Filed: 11/25/17 09:47> (1) Respiratory failure Qualifiers: Chronicity: acute (3) Open wound of abdominal wall Qualifiers: Encounter type: initial encounter Qualified Code(s): S31.109A - Unspecified open wound of abdominal wall, unspecified quadrant without penetration into peritoneal cavity, initial encounter (4) Aspiration into airway Qualifiers: Encounter type: initial encounter Qualified Code(s): T17.908A - Unspecified foreign body in respiratory tract, part unspecified causing other injury, initial encounter (6) Anemia Qualifiers: Anemia type: unspecified type Qualified Code(s): D64.9 - Anemia, unspecified (11) Altered mental status Qualifiers: Altered mental status type: unspecified Qualified Code(s): R41.82 - Altered mental status, unspecified (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 <Maddy Jackson - Last Filed: 11/26/17 08:59> (1) Respiratory failure Qualifiers: Chronicity: acute (3) Open wound of abdominal wall Qualifiers: Encounter type: initial encounter Qualified Code(s): S31.109A - Unspecified open wound of abdominal wall, unspecified quadrant without penetration into peritoneal cavity, initial encounter (4) Aspiration into airway Qualifiers: Encounter type: initial encounter Qualified Code(s): T17.908A - Unspecified foreign body in respiratory tract, part unspecified causing other injury, initial encounter (6) Anemia Qualifiers: Anemia type: unspecified type Qualified Code(s): D64.9 - Anemia, unspecified (11) Altered mental status Qualifiers: Altered mental status type: unspecified Qualified Code(s): R41.82 - Altered mental status, unspecified (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
[2017-11-25] MEDS ORDERED: Morphine Inj 4 MG/ML Vial IV.PUSH ONE (10:02)
[2017-11-25] MEDS ORDERED: HYDROmorphone PF Inj 1 MG/ML Ampul IV.PUSH ONE (10:02)
[2017-11-25] MEDS ORDERED: HYDROmorphone PF Inj 1 MG/ML Ampul IV.PUSH PRN (10:02)
[2017-11-25] MEDS ORDERED: Haloperidol Inj 5 MG/ML Ampul IV.PUSH ONE (10:02)
--- NOTE | 2017-11-25 10:14 | P.EN ---
Overnight events: The patient's family planned on compassionate extubation and transition to comfort care yesterday at 3 PM. The family was in the room with the patient around 4 PM and her was given consent form to sign for transition to comfort care. He was instructed to tell the RN when they were ready to proceed with pre-medicating the patient 30 minutes prior to extubation. Her did not wish to remain at the bedside during extubation, signed the consent form and left, but did not notify RN that he was ready to withdraw care. A family member contacted the overnight C attending but as she was not the medical decision maker, and it was unclear if her was ready, the patient remained intubated with no escalation of care overnight. This morning, I tried calling Emile (her ) a number of times but was initially unable to get him on the phone. Around 10 AM today, he confirmed via telephone that the family is ready to proceed with compassionate extubation/ transition to comfort measures only and do not wish to be at the bedside during this. Premedication and extubation orders entered; any interventions or medications that do not address the patient's comfort were discontinued.
[2017-11-25] MEDS ORDERED: HYDROmorphone PF Inj 2 MG/ML Vial IV.PUSH ONE (10:45)
[2017-11-25] MEDS: Morphine Sulfate Inj 2 MG/ML Vial IV.PUSH PRN ×5 (11:32→21:51)
[2017-11-25] MEDS: HYDROmorphone PF Inj 2 MG/ML Vial IV.PUSH PRN ×8 (11:49→17:48)
[2017-11-25] MEDS: Morphine Inj 4 MG/ML Vial IV.PUSH PRN ×2 (15:22→15:52)
--- NOTE | 2017-12-13 13:42 | P.DS ---
Date of admission: 09/27/17 11:56 Primary care physician: Chaz Vivar MD, R3 Brief History from admission: Ms Mcclain is a 51-year-old female with significant past medical history of COPD, schizophrenia, rheumatoid arthritis and left total knee replacement (07/26/17) who presented to the ED with complaints of worsening shortness of breath and mental status accompanied with symptoms of diarrhea (3 days, non-bloody) and decreased p.o. intake (5 days) along with an infection of her knee that improved with Keflex p.o but now has returned with new additional drainage over the past few days. at bedside contributed to history. Patient is poor historian. For the past 1 week patient reports progressive shortness of breath with exertion that was significantly worse this morning. reports that patient requested to be taken to the emergency room for further evaluation of her shortness of breath. Denies any alleviating factors for her shortness of breath. She also reports intermittent midsternal chest pain that radiates to the left side of her neck over the last 5 days that is not anginal in pattern. Currently does not have chest pain. Endorses weakness, dysuria, headaches, subjective fevers "felt hot this morning bad", diaphoresis, chills and BL LE leg pain. She says she has not eaten anything in the last 5 days due to throat pain and loss of taste. However, she has been able to drink small amounts of liquids such as broth, water, and Gatorade. Anything heavier than soup broth made her feel nauseous and caused her to vomit. Patient reports the diarrhea has been accompanied by abdominal pain. Patients also reports worsening memory loss and psychotic behavior since second week at the rehab center after her left knee surgery. She follows with psychiatrist "Oni" for the past 7-9 years on Cymbalta and duloxetine. She has had hallucination of seeing someone at home that she believes is after her. Denies auditory hallucination or having this person talk to her. Denies suicidal ideation but endorses homicidal ideation for the person who is "out to get her". Over the past week she has developed a new rash on abdomen and groin area her noted this after she came out of rehab. He has been using Neosporin on it at home and he reported that the rash was improving. denies palpitations, increased urinary frequency. She is alert and oriented x1 (to self). Of note: Patient was discharged from rehab on August 23. After rehab she was able to ambulate on her own but for the past 3 wks has gotten weaker requiring walker to walk and most recently she has not even wanted to get out of bed. She also had Left leg swelling and large amount of purulent pus draining from the incision (purulent drainage that filled up towels and had no odor). She has been treated with po antibiotics twice daily for the past week by someone in the office due to infection of Left leg with improvement in Left lower leg swelling and drainage. (Her had a prescription for Keflex 500 mg p.o. twice daily 15 pills total). She completed a week of antibiotic treatment with last day scheduled for today with some improvement in her knee pain. However her stated that she was starting to have more drainage from her knee just over the past day or so. He had pointed to several areas that had been draining pus from just above and just below the knee. He stated that a cup full of pus would drain at a time. Because of her very low blood pressures and boluses that were required she was started on treatment for sepsis with Zosyn and vancomycin. Fortunately she responded and did not need pressors or other treatments overnight. There is a question about her abdominal wounds. According to her she saw them when she arrived home from the rehab and they may have been present for some weeks. She is now having some improvement in healing simply with Neosporin applied per her at home. Patient update on day of discharge: Pt seen and examined this morning. Remains intubated and sedated. Family was at bedside yesterday and planning on comfort measures, however no decision was made yet. Attempts to reach again have been unsuccessful. Will try again today. DS: Diagnosis - Discharge Diagnosis (1) Respiratory failure Status: Acute (2) Sepsis Status: Acute (3) Open wound of abdominal wall Status: Acute (4) Aspiration into airway Status: Acute (5) C. difficile diarrhea Status: Acute (6) Creatinine elevation Status: Acute (7) Thrombocytopenia Status: Acute (8) Poor nutrition Status: Acute (9) Schizophrenia Status: Chronic (10) Altered mental status Status: Acute (11) Cellulitis of knee, left Status: Acute (12) Prosthetic joint infection Status: Suspected (13) Hypertension Status: Acute (14) Tachycardia Status: Chronic (15) Nutrition, metabolism, and development symptoms Status: Acute DS: Medications - Discharge Medications Prescriptions: Lactobacillus acidophilus 1,000 mmu cells PO DAILY #60 tab DS: Summary Hospital Course: Patient is a 51-year-old female with a significant past medical history of COPD , schizophrenia, rheumatoid arthritis and left total knee replacement (07/26/17) who presents to the ED with complaints of worsening shortness of breath and mental status change accompanied with symptoms of diarrhea (3 days, non-bloody) and decreased p.o. intake (5 days). On admission patient found to be in severe sepsis with tachycardia (110), new onset neutropenia (WBC 0.9), Lactic acid of 3.1, and an H/H of 5.5/16.3 as well as AMS. Probable source was thought to be due to her prosthetic knee that was replaced in July. At the time of admission her left knee was draining fluid and her gave a history of her knee draining "towels of pus". In the ED patient received 2 L of normal saline, vancomycin 1 g x1 and Zosyn 4.5 g x1. Chest CTA showed no evidence of atelectasis or consolidation of left lower lobe. Wound culture taken from left knee grew pseudomonas and group B strep, but blood cultures had no growth. Patient also had a fungal transcutaneous skin infection on abdomen and as well as oral thrush. She was on nystatin swish and swallow and IV fluconazole. Many psychiatric/RA drugs were stopped due to myelosuppression. Heme / Onc was consulted and patient received Neupogen which greatly increased her white count. At the time of admission patient had active auditory and visual hallucinations. Psychiatry was consulted who recommended limiting her psych meds to aripiprazole, buspirone, duloxetine, and trazodone. During her treatment she received folic acid and leucovorin. She later developed thrombocytopenia, and a HIT workup was done which turned out to be negative, her platelets eventually sarthak again. This patient was initially admitted to the ICU due to neutropenic precautions, but was eventually transferred back down to the floor. Per ID her antibiotics were changed to levofloxacin, cefepime, and fluconazole. A plan was made with ID to get the patient a PICC line and have her administer antibiotics at home with the help of home health as well as wound care. She received a PICC line with a planned course of antibiotics of cefepime and levofloxacin until November 08, and fluconazole until October 18. Upon preparation for discharge patient mentioned that she was having pain near her anus, an exam revealed the same transcutaneous wound that she had under her pannus was also on her perineum extending almost to the anus. Patient was taken to OR for debridement and wound VAC placement on 10/09 and . 10/15 the patient was taken to the OR and the wound vac was removed with closure of the abdominal wall. Tissue samples taken from debridement had no growth on culture. 10/19 patient got OOB on her own and fell. New opening of skin over L knee surgical site with increased drainage, new wound cultures were taken with no growth resulting. Pain in L knee and ankle- xrays negative for fracture. Denies hitting head. Ortho was called due to increasing effusion of the knee but they did not recommend aspiration at the time. Patient began to have leaking around her rectal tube- C diff cultures taken and came back positive. Patient was started PO vancomycin. 10/20- dehiscence of L thigh incision , new skin breakdown on R thigh. Patient then had debridement, irrigation, and suturing performed on wound dehiscence on 10/16/17 without complications. Patient again returned to the operating room for I/D of abdomen and bilateral thighs with placement of Amniox to assist with wound healing. Cultures were positive for VRE and patient was started on daptomycin at that time. Her ABD and Pelvic wounds continued to purulent and non-healing likely secondary to her poor nutritional status. Patient unable to receive PEG tube as she has had previous gastric sleeve. Discussions with surgery and possible J-tube placement were discussed with general surgery once nutritional status improved as she would not heal from laparotomy procedure to place J-tube. Patient was started on TPN for nutritional assistance in hopes to improve healing as well as plan for J-tube placement. However patient had multiple episodes of agitation, that resulted in her pulling out two different PICC lines. Patient also had an episode of dysphagia leading to a suspected aspiration PNA. After the patient pulled the second PICC line, no IV access was able to be obtained. The patient became hypoglycemic with an AMS. The Interventional Radiology team was consulted emergently for PICC line placement which was obtained. TPN was restarted and the patients blood glucose normalized. Due to her new onset dysphagia with AMS , neurology was consulted. CT scanned showed increased ventricle size, however MRI and neurologic exam were normal showing no active neurologic issue. Due to her continued AMS and hypoglycemia without access, patient was transferred to the ICU for further monitoring and Critical Care was consulted. On 11/12/17, the patient developed acute respiratory failure requiring rapid intubation. Patient also became thrombocytopenic, hypothermic, developed an BRET, and became septic. All previous antibiotics were discontinued and patient was started on Meropenem , Linezolid, and Micafungin for infectious coverage with the assistance of Infectious Disease. Palliative care was consulted to assist the medical team with goals of care as the patients prognosis was very poor. Pt remained intubated and sedated with worsening clinical status despite IV albumin and continued antibiotics. A meeting with the family regarding goals of care was had and discussions about compassionate extubation was discussed further. With the and family's decision, they moved for compassionate extubation with patient expiration. - Time Spent with Patient Total time spent providing and/or coordinating discharge services: Greater than 30 minutes Exam Narrative: GENERAL: Morbidly obese -[place] female lying in bed intubated and sedated with soft restraints intact. HEENT: Atraumatic, normocephalic. ET tube in place. CARDIOVASCULAR: Tachycardic rate and regular rhythm without obvious murmurs, gallops, or rubs. RESPIRATORY: Bilateral rhonchi throughout. Breath sounds difficult to auscultate due to body habitus and ventilator noise. No increased work of breathing. GASTROINTESTINAL: Obese abdomen, soft. Rectal tube in place with liquid fecal material in reservoir. Hopper catheter in place. MUSCULOSKELETAL: Bilateral upper extremity 2+ edema. Bilateral lower extremity 2 +. SCDs in place. NEURO/PSYCH: Patient intubated and sedated. SKIN: Cool and dry. No rash. PICC line without surrounding erythema, warmth, or other signs of infection. ABD wounds: Transverse suprapubic wound stapled along with midline stapled incision. Currently dry bandages covering wounds clean. Results Procedures completed during hospitalization: See hospital course Labs on day of discharge: Preliminary micro results at discharge 11/01/17 17:45 Mycobacterial Culture - Preliminary Wound - Abdominal No growth in 5 weeks - Impressions ITS Impressions Tibia/Fibula X-Ray 09/27/17 00:00 CONCLUSION: No acute left leg abnormality is identified. Abdomen/Pelvis CT 09/27/17 08:10 CONCLUSION: 1. Mild hepatic steatosis. 2. Thickening of the colon secondary to lack of distention versus colitis. 3. Left lower lobe consolidation and/or atelectasis. There does appear to be a 1.4 cm cavitary area which makes consolidation likely. Chest CTA 09/27/17 08:22 CONCLUSION: 1. No pulmonary embolus. 2. Consolidation or atelectasis at the left lower lobe. Knee CT 10/18/17 00:00 CONCLUSION: 1. Small joint effusion. 2. Nonspecific subcutaneous edema in the subcutaneous soft tissues above and below the knee. 3. No significant changes compared to the prior exam. Ankle X-Ray 10/19/17 00:00 CONCLUSION: 1. No acute fracture or dislocation. Knee X-Ray 10/19/17 00:00 CONCLUSION: 1. Total knee prosthesis in place. 2. Moderate-sized knee joint effusion. Head CT 11/10/17 00:00 CONCLUSION: 1. Interval enlargement of the ventricular system of uncertain etiology. There is no clear evidence of an obstructing process. 2. Otherwise stable evaluation without evidence of acute infarct, hemorrhage, mass or edema. . Venous Doppler Study 11/10/17 00:00 CONCLUSION: 1. No venous thrombosis is identified within either lower extremity. 2. As described above, secondary to open wounds, the left external iliac, common femoral vein, and greater saphenous veins were not adequately evaluated. Head MRI 11/11/17 00:00 CONCLUSION: 1. Motion artifact is present throughout the scan. 2. Examination is diagnostic. 3. No evidence of acute infarct, hemorrhage, mass or edema. PICC Line Insertion 11/11/17 08:51 CONCLUSION: 1. Uncomplicated central venous Power PICC line placement. 2. The PICC line can be used immediately. Chest X-Ray 11/22/17 04:00 CONCLUSION: 1. Stable chest x-ray with a mild airspace opacity in the left lung base with blunting of the costophrenic sulcus suggesting small pleural effusion. 2. Endotracheal tube tip measures 1 cm from the shaka. Discharge Plan - Discharge Disposition Patient Disposition: 20 - Discharge Order Discharge Orders: Discharge Order (Routine); Ordered 11/14/17 Ordered By: Maddy Jackson - Discharge Details Anticipated Discharge Date: 10/06/17 Date/Time: 11/25/17 22:34 - Physicians Team Primary Care Provider: Chaz Vivar Attending Provider: Schuyler Medina Other Providers: David Hudson MD ; Barby Aldridge MD ; Eddie Raphael MD ; Andi Jackson MD ; [facility],Agency ; [facility] ; Jose Schneider MD ; [facility],Agency ; [facility]ency ; Nina Plummer MD ; Jose Catalan MD ; Fly Lino MD ; [facility],Agency
== END 2017-11-25 22:34 | disposition expired ==
LOC: NEPE 07:43 → NEDA 11:56 → HIMC 17:25 → N05 09-28 18:32 → HCIS 11-11 01:15 → HIMC 11-11 11:50
PROVIDERS: ADMIT Family Medicine; ATTEND Family Medicine